=== PATIENT | male | born 1960 | race Caucasian/White ===

== ENCOUNTER 2016-06-23 05:38 | Outpatient (CLI) | payer MEDICAID ==
[~2016-06-23] VITALS: Ht 172.7 cm; Wt 108.0 kg
--- OUTSIDE RECORDS SUMMARY | 2016-06-23 05:41 | XMS REPORT | Continuity of Care Document ---
Author Author [facility] Organization [facility] Address Unknown Phone Unavailable Care Team Providers Care Dealer Compliance Representative Name Role Phone PCP Unavailable Source Comments Some departments are not documenting in the electronic medical record. If you do not see the information that you expected, contact Release of Information in the Health Information Management department at [phone] for further assistance in locating additional records.[facility] Active Allergies and Adverse Reactions Not on File Current Medications Not on file Active Problems Not on file Social History Tobacco Use Types Packs/Day Years Used Date Never Assessed Plan of Care Date Type Specialty Providers Description 07/19/2016 Appointment Neurosurgery Moises Vasquez MD [address] [facility] [address] [place] [address] [phone] (Fax) Health Maintenance Due Date Last Done Comments Hepatitis C Screening 1960 Physical (Comprehensive) 02/11/1968 Exam Pertussis Vaccine 02/11/1972 Tetanus Vaccine 1978 Colorectal Cancer 2011 Screening Influenza Vaccine 02/04/2016 Results from Last 3 Months Not on file
[2016-06-23] MEDS ORDERED: BUDE10.22 IH (11:28)
[2016-06-23] MEDS ORDERED: OMEP40CA36 PO (11:28)
[2016-06-23] MEDS ORDERED: MONT10TA21 PO (11:28)
[2016-06-23] MEDS ORDERED: TRAZ150T72 PO (11:28)
[2016-06-23] MEDS ORDERED: PRAV20TA3 PO (11:28)
[2016-06-23] MEDS ORDERED: CETI-267 PO (11:28)
[2016-06-23] MEDS ORDERED: CITA20TA7 PO (11:28)
[2016-06-23] MEDS ORDERED: RT-ALBUINH IH (11:28)
[2016-06-29] MEDS ORDERED: SUCR1TAB36 PO (11:40)
[2016-06-29] MEDS ORDERED: DEXL60CA PO (11:40)
== END 2016-06-23 11:36 ==
LOC: PREOP 05:38
PROVIDERS: ATTEND Surgery Pediatric Surgery
DX: Z01.818 Encounter for other preprocedural examination (principal); K21.9 Gastro-esophageal reflux disease without esophagitis

== ENCOUNTER 2016-06-29 09:14 | Day surgery (SDC) | payer MEDICAID ==
[~2016-06-29] VITALS: Ht 172.7 cm; Wt 108.0 kg
[~2016-06-29 09:14] MED LIST: BUDE10.22 IH; CETI-267 PO; CITA20TA7 PO; MONT10TA21 PO; OMEP40CA36 PO; PRAV20TA3 PO; RT-ALBUINH IH; TRAZ150T72 PO
[2016-06-29] MEDS ORDERED: NS IV 500 ML 500 ML ONE (09:16)
--- OUTSIDE RECORDS SUMMARY | 2016-06-29 09:18 | XMS REPORT | Continuity of Care Document ---
Author Author [facility] Organization [facility] Address Unknown Phone Unavailable Care Team Providers Care Apprentice Painter Brush Name Role Phone PCP Unavailable Source Comments Some departments are not documenting in the electronic medical record. If you do not see the information that you expected, contact Release of Information in the Health Information Management department at [phone] for further assistance in locating additional records.[facility] Active Allergies and Adverse Reactions Not on File Current Medications Not on file Active Problems Not on file Social History Tobacco Use Types Packs/Day Years Used Date Never Assessed Plan of Care Date Type Specialty Providers Description 07/19/2016 Appointment Neurosurgery Moises Vasquez MD [address] [facility] [address] [place] [address] [phone] (Fax) Health Maintenance Due Date Last Done Comments Hepatitis C Screening 1960 Physical (Comprehensive) 02/11/1968 Exam Pertussis Vaccine 02/11/1972 Tetanus Vaccine 1978 Colorectal Cancer 2011 Screening Influenza Vaccine 02/04/2016 Results from Last 3 Months Not on file
--- OUTSIDE RECORDS SUMMARY | 2016-06-29 09:18 | XMS REPORT | Continuity of Care Document ---
Author Author [facility] Organization [facility] Address Unknown Phone Unavailable Care Team Providers Care Diabetologist Name Role Phone PCP Unavailable Source Comments Some departments are not documenting in the electronic medical record. If you do not see the information that you expected, contact Release of Information in the Health Information Management department at [phone] for further assistance in locating additional records.[facility] Active Allergies and Adverse Reactions Not on File Current Medications Not on file Active Problems Not on file Social History Tobacco Use Types Packs/Day Years Used Date Never Assessed Plan of Care Date Type Specialty Providers Description 07/19/2016 Appointment Neurosurgery Moises Vasquez MD [address] [facility] [address] [place] [address] [phone] (Fax) Health Maintenance Due Date Last Done Comments Hepatitis C Screening 1960 Physical (Comprehensive) 02/11/1968 Exam Pertussis Vaccine 02/11/1972 Tetanus Vaccine 1978 Colorectal Cancer 2011 Screening Influenza Vaccine 02/04/2016 Results from Last 3 Months Not on file
[2016-06-29] MEDS ORDERED: FLUMAZENIL (ROMAZICON) 0.1 MG/ML 5 ML VIAL INJ PRN (10:00)
[2016-06-29] MEDS ORDERED: LIDOCAINE JELLY 2% (XYLOCAINE) 5 ML TUBE MM PRN (10:00)
[2016-06-29] MEDS ORDERED: MIDAZOLAM 2 MG/2 ML (VERSED) VIAL IVP PRN (10:00)
[2016-06-29] MEDS ORDERED: NALOXONE 0.4 MG/ML 1 ML (NARCAN) VIAL IVP PRN (10:00)
[2016-06-29] MEDS ORDERED: HURRICAINE EXT TUBE (BENZOCAINE) XX PRN (10:00)
[2016-06-29] MEDS ORDERED: NS IV 500 ML 500 ML IV SCH (10:00)
[2016-06-29] MEDS ORDERED: fentaNYL INJECTION 100 MCG/2 ML AMP IVP PRN (10:00)
[2016-06-29] MEDS ORDERED: proPOfol 200 MG/20 ML (DIPRIVAN) VIAL IV ONE ×2 (10:04→10:38)
[2016-06-29] MEDS ORDERED: MIDAZOLAM 2 MG/2 ML (VERSED) VIAL ONE (10:04)
[2016-06-29] MEDS ORDERED: PROPOFOL INJECTION 50 ML IV ONE (10:24)
[2016-06-29] MEDS ORDERED: morphine INJ 10 MG/ML 1ML (SYR OR VIAL) IV PRN (10:30)
[2016-06-29] MEDS ORDERED: ACETAMINOPHEN 325 MG TABLET/CAPLET (TYLENOL) PO PRN (10:30)
[2016-06-29] MEDS ORDERED: HYDROcodone/APAP 5 MG/325 MG (LORTAB) TAB PO PRN (10:30)
[2016-06-29] MEDS ORDERED: ONDANSETRON 4 MG/2 ML (SDV) Z0FRAN IV PRN (10:30)
--- NOTE | 2016-06-29 10:30 | Progress Note-Pre Operative ---
Pre-Operative Progress Note H&P Reviewed The H&P was reviewed, patient examined and no changes noted. Date H&P Reviewed: Jun 29, 2016 Time H&P Reviewed: 10:00 Pre-Operative Diagnosis: GERD, dysphagia GALINA WALKER MD Jun 29, 2016 10:30 am
[2016-06-29] MEDS ORDERED: NS IV 1000 ML 1,000 ML ONE (10:35)
--- NOTE | 2016-06-29 11:38 | Progress Note-Post Operative ---
Post-Operative Progess Note Pre-Operative Diagnosis GERD, dysphagia Post-Operative Diagnosis reflux esophagitis(class B), small HH(1.5cm), moderate gastritis. chronic stage 2 ext and int hemorrhoids, small HP sigmoid colon. Post-Op Procedure Note Date of Procedure: Jun 29, 2016 Name of Procedure: EGD with bx. Colonoscopy with bx. Anesthesia Type MAC Estimated blood loss (mL): minimal Specimen(s) collected antrum, GE GALINA Terry MD Jun 29, 2016 11:38 am
[2016-06-29 11:40] VITALS: BP 114/74
[2016-06-29] MEDS ORDERED: SUCR1TAB36 PO (11:40)
[2016-06-29] MEDS ORDERED: DEXL60CA PO (11:40)
--- NOTE | 2016-06-29 11:41 | Discharge Inst-Surgical ---
D/C Lap Instructions-KIDO New, Converted, or Re-Newed RX: RX on Chart Follow Up 5 years Activity as tolerated High Fiber Diet 25g or more per day Avoid Alcohol, Caffeine, Spicy Somers and Acid foods. Drink 64 fluid oz or more of fluids per day. Symptoms to Report: Fever over 101 degree F, Nausea/Vomiting If any problems/questions: Contact your physician or go to Emergency Room GALNIA WALKER MD Jun 29, 2016 11:41 am
[2016-06-29 12:00] VITALS: BP 119/86
[2016-06-29 12:21] VITALS: BP 137/81
[2016-06-29 12:36] VITALS: BP 137/81
[2016-06-29] MEDS ORDERED: NS IV 1000 ML 1,000 ML IV SCH (12:45)
--- NOTE | 2016-06-30 09:07 | OPERATIVE REPORT ---
PROCEDURE PHYSICIAN: GALINA PEDRAZA DATE OF PROCEDURE: 06/29/2016 ATTENDING PRIMARY CARE PHYSICIAN: Dr. Aundrea Masters PREOPERATIVE DIAGNOSIS: 1. Gastroesophageal reflux disease. 2. Dysphagia. 3. Screening colonoscopy. POSTOPERATIVE DIAGNOSES: 1. Reflux esophagitis, class B. 2. Small hiatal hernia, approximately 1 cm in size. 3. Moderate severity gastritis. 4. Chronic, stage II external and internal hemorrhoids. 5. Small hyperplastic polyp of the sigmoid colon. PROCEDURES: 1. EGD with biopsy. 2. Colonoscopy with biopsy. SURGEON: Dr. Pedraza. ANESTHESIA: Monitored and monitored anesthesia care, administered by anesthesia. ESTIMATED BLOOD LOSS: Minimal FINDINGS: EGD: 1. Reflux esophagitis, class B. 2. Small hiatal hernia 1 cm in size. 3. Moderate gastritis. 4. The pylorus and duodenum appeared normal. COLONOSCOPY: 1. Chronic, stage II external and internal hemorrhoids, not actively edematous or inflamed and no bleeding. 2. Prostate gland was palpable and appeared normal. 3. There was a small hyperplastic polyp of the proximal sigmoid colon, approximately 2 mm in size. DISPOSITION: The patient tolerated procedure well. BRIEF HISTORY: Mr. Eitan Morris is a 56-year-old male with a right upper abdominal quadrant pain, as well as reflux and nausea and vomiting. He reports he has had intermittent issues of these type of symptoms for the past 5 years. However, the last year, has become much worse. He also reports that he does have some episodes of diarrhea associated with his symptoms. Upon further questioning he reports that, spicy, greasy as well as acidic foods tend to exacerbate his symptoms. He does feel epigastric burning sensation and will have issues with regurgitation usually at night while lying supine. He was recently started on Protonix 40 mg daily. He does have risk factors including COPD and positive smoke for greater than 50 pack-years. He has also not had a colonoscopy up to this point in his life. PROCEDURE: The patient was brought to the endoscopy suite, laid in left lateral decubitus position. After adequate IV pain and sedative medications and monitored anesthesia care, administered by anesthesia, the mouthpiece was applied. The endoscope was placed in the mouth, visualizing the pharynx and hypopharyngeal region. Vocal cords, epiglottis and vallecula identified and appeared to be normal. The endoscope was then gently intubated the esophageal opening and the esophagus insufflated. The endoscope was then advanced through the first, second, and 3rd portions esophagus. At the level of the GE junction, a reflux esophagitis, class B identified. There were no ulcers or strictures identified in this region. A biopsy was taken with forceps with visualization of good hemostasis. The endoscope was then easily advanced into the stomach and endoscope retroflexed visualizing a small hiatal hernia, approximately 1 cm in size. There was a moderate severity gastritis also noted; however, no formal ulcers, polyps or any neoplasms. A biopsy was taken of the antrum with forceps with visualization of good hemostasis. The endoscope was then advanced through the pylorus and into the first and second portions of duodenum , which appeared normal with no distal obstructions. The endoscope was then slowly withdrawn while to take a second look and suctioning of residual air with no additional findings. The patient tolerated this portion the procedure well. We feel that the majority of his symptoms are due to lifestyle that he needs to proceed with the necessary lifestyle and diet accommodation including smoking cessation, avoidance of caffeinated beverages, as well as spicy, greasy and acidic foods. He also needs to take in smaller, more frequent meals and avoid eating at night, as well as head elevation while lying supine. Again his symptoms may also be related to gallbladder etiology and we will also proceed with a work-up for this. For the time being, we will proceed with Dexilant 60 mg daily, as well as Carafate 1 gram q.i.d. for the next 2 weeks then on a p.r.n. basis. Under the same monitored anesthesia care, we then proceeded with the colonoscopy portion of the procedure. A digital rectal examination was performed, which revealed chronic, stage II external and internal hemorrhoids, not actively edematous or inflamed and no bleeding. Normal sphincter tone was felt and there were no palpable masses. The prostate was palpable and appeared normal. The endoscope was then intubated into the anus and the rectum gently insufflated. The endoscope was then advanced through the valves of Desir in the rectum where no polyps or any neoplasms identified. We then proceeded through the sigmoid colon where no diverticulosis identified. At the proximal sigmoid colon, a small hyperplastic polyp, approximately 2 mm in size was identified. This was biopsied and destroyed using forceps and electrocautery with visualization of good hemostasis. The endoscope was then advanced through the remainder of the descending, transverse, and ascending colon to the cecum. These segments were normal. There were no other lesions identified. The endoscope was slowly withdrawn while taking a second look and suctioning of residual air with no additional findings. The patient tolerated procedure well. We will have him continue with medical management with a high fiber diet with at least 30 grams of fiber per day, as well as at least 64 fluid ounces of water daily to promote soft stools on a daily basis. Due to the findings of the hyperplastic polyp we will recommend a follow-up colonoscopy in approximately 5 years. Job ID: [id number] Dictated Date: 06/29/2016 11:32:52 Egg Candler Date: 06/29/2016 15:13:42 / aldo
== END 2016-06-29 12:15 | disposition home or self-care (01) ==
LOC: ENDO 09:14
PROVIDERS: ATTEND Surgery Pediatric Surgery
DX: Z12.11 Encounter for screening for malignant neoplasm of colon (principal); K21.0 Gastro-esophageal reflux disease with esophagitis; K63.5 Polyp of colon; K44.9 Diaphragmatic hernia without obstruction or gangrene; K29.70 Gastritis, unspecified, without bleeding; K64.1 Second degree hemorrhoids; E11.9 Type 2 diabetes mellitus without complications; E78.00 Pure hypercholesterolemia, unspecified; J44.9 Chronic obstructive pulmonary disease, unspecified; I10 Essential (primary) hypertension; I25.2 Old myocardial infarction; Z86.73 Personal history of transient ischemic attack (TIA), and cerebral infarction without residual deficits
CPT/HCPCS: 82962

== ENCOUNTER 2016-07-12 07:55 | Day surgery (SDC) | payer MEDICAID ==
[2016-07-12] VITALS (10 sets, daily range): BP systolic 118–144; BP diastolic 84–89
[~2016-07-12] VITALS: Ht 172.7 cm; Wt 108.0 kg
[~2016-07-12 07:55] MED LIST changes: +DEXL60CA PO; +SUCR1TAB36 PO
--- OUTSIDE RECORDS SUMMARY | 2016-07-12 07:59 | XMS REPORT | Continuity of Care Document ---
Author Author [facility] Organization [facility] Address Unknown Phone Unavailable Care Team Providers Care Direct Care Professional Name Role Phone PCP Unavailable Source Comments Some departments are not documenting in the electronic medical record. If you do not see the information that you expected, contact Release of Information in the Health Information Management department at [phone] for further assistance in locating additional records.[facility] Active Allergies and Adverse Reactions Not on File Current Medications Not on file Active Problems Not on file Social History Tobacco Use Types Packs/Day Years Used Date Never Assessed Plan of Care Date Type Specialty Providers Description 07/19/2016 Appointment Neurosurgery Moises Vasquez MD [address] [facility] [address] [place] [address] [phone] (Fax) Health Maintenance Due Date Last Done Comments Hepatitis C Screening 1960 Physical (Comprehensive) 02/11/1968 Exam Pertussis Vaccine 02/11/1972 Tetanus Vaccine 1978 Colorectal Cancer 2011 Screening Influenza Vaccine 02/04/2016 Results from Last 3 Months Not on file
--- OUTSIDE RECORDS SUMMARY | 2016-07-12 08:00 | XMS REPORT | Continuity of Care Document ---
Author Author [facility] Organization [facility] Address Unknown Phone Unavailable Care Team Providers Care Tile Designer Name Role Phone PCP Unavailable Source Comments Some departments are not documenting in the electronic medical record. If you do not see the information that you expected, contact Release of Information in the Health Information Management department at [phone] for further assistance in locating additional records.[facility] Active Allergies and Adverse Reactions Not on File Current Medications Not on file Active Problems Not on file Social History Tobacco Use Types Packs/Day Years Used Date Never Assessed Plan of Care Date Type Specialty Providers Description 07/19/2016 Appointment Neurosurgery Moises Vasquez MD [address] [facility] [address] [place] [address] [phone] (Fax) Health Maintenance Due Date Last Done Comments Hepatitis C Screening 1960 Physical (Comprehensive) 02/11/1968 Exam Pertussis Vaccine 02/11/1972 Tetanus Vaccine 1978 Colorectal Cancer 2011 Screening Influenza Vaccine 02/04/2016 Results from Last 3 Months Not on file
[2016-07-12] MEDS ORDERED: HEParin (CATH LAB) 2,000 ML IV ONE (08:05)
[2016-07-12] MEDS ORDERED: NS IV 1000 ML 1,000 ML ONE (08:05)
[2016-07-12] MEDS ORDERED: LIDOCAINE 1% INJ 20 ML (XYLOCAINE) VIAL ONE (08:05)
[2016-07-12] MEDS ORDERED: NS IV 1000 ML 1,000 ML IV SCH ×2 (08:30→10:49)
[2016-07-12] MEDS ORDERED: DEXL60CA PO (08:33)
[2016-07-12] MEDS ORDERED: CETI10TA17 PO (08:33)
[2016-07-12] MEDS ORDERED: PANT40TA2 PO (08:33)
[2016-07-12] MEDS ORDERED: TRAZ-28 PO (08:33)
[2016-07-12 08:38] LABS: MEAN PLATELET VOLUME 9.9 FL (7.4-10.4); RED BLOOD COUNT 5.13 10^6/uL (4.35-5.85); RED CELL DISTRIBUTION WIDTH 13.9 % (10.0-14.5); WHITE BLOOD COUNT 9.4 10^3/uL (4.3-11.0)
[2016-07-12] MEDS ORDERED: BUDE10.2 IH (08:38)
[2016-07-12] MEDS ORDERED: ASPI-983 PO (08:38)
[2016-07-12] MEDS ORDERED: DICY20TA10 PO (08:38)
[2016-07-12 08:43] LABS: PROTHROMBIN TIME PATIENT 12.9 SEC (12.2-14.7)
[2016-07-12 08:54] LABS: ALANINE AMINOTRANSFERASE 28 U/L (0-55); ALBUMIN 4.5 G/DL (3.2-4.5); ANION GAP 12 MMOL/L (5-14); ASPARTATE AMINO TRANSFERASE 17 U/L (5-34); BILIRUBIN,TOTAL 0.3 MG/DL (0.1-1.0); BLOOD UREA NITROGEN 12 MG/DL (7-18); BUN/CREATININE RATIO 11; CALCIUM 9.1 MG/DL (8.5-10.1); CARBON DIOXIDE 24 MMOL/L (21-32); CHLORIDE 104 MMOL/L (98-107); CHOLESTEROL 192 MG/DL (< 200); CREATININE SERUM 1.14 MG/DL (0.60-1.30); DIRECT LDL 145 MG/DL (1-129); GFR ESTIMATED > 60; GLUCOSE 128 MG/DL (70-105); POTASSIUM 3.7 MMOL/L (3.6-5.0); SODIUM 140 MMOL/L (135-145); TOTAL PROTEIN 7.1 G/DL (6.4-8.2); TRIGLYCERIDES 88 MG/DL (<150); VLDL CHOLESTEROL 18 MG/DL (5-40)
[2016-07-12] MEDS ORDERED: MIDAZOLAM 5 MG/5 ML (VERSED) VIAL ONE (09:13)
[2016-07-12] MEDS ORDERED: diphenhydrAMINE 50 MG/ML INJ (BENADRYL) ONE (09:13)
[2016-07-12] MEDS ORDERED: fentaNYL INJECTION 100 MCG/2 ML AMP ONE (09:13)
--- NOTE | 2016-07-12 09:25 | Cardiac Procedure Note-CS/ASA ---
Pre-Procedure Note Pre-Op Procedure Note H&P Reviewed The H&P was reviewed, patient examined and no changes noted. Date H&P Reviewed: Jul 12, 2016 Time H&P Reviewed: 09:25 Conscious Sedation Pre-Proced Time Reviewed: :25 ASA Class: 3 Airway Mallampati Classification: (miami appropriate class) I. II. III, IV Lungs Heart ASA score ASA 1: a normal healthy patient ASA 2: a patient with a mild systemic disease (mid diabetes, controlled hypertension, obesity ASA 3: a patient with a severe systemic disease that limits activity (angina , COPD, prior Myocardial infarction) ASA 4: a patient with an incapacitating disease that is a constant threat to life (CHF, renal failure) ASA 5: a moribund patient not expected to survive 24 hrs. (ruptured aneurysm) ASA 6: a declared brain patient whose organs are being harvested. For emergent operations, add the letter E after the classification Grade 2 Sedation Plan: Analgesia, Amnesia, Plan communicated to team members, Discussed options with patient/fam, Discussed risks with patient/fam Note The patient is an appropriate candidate to undergo the planned procedure, sedation, and anesthesia. The patient immediately re-assessed prior to indication. MAGDA DIAZ MD FACP FACC CCDS Jul 12, 2016 09:25
[2016-07-12] MEDS ORDERED: FLU TRIvalent (5 YOA+) 2016-17 (AFLURIA) 0.5 ML IM ONE (10:15)
[2016-07-12] MEDS ORDERED: ASPI-999 PO (10:54)
--- NOTE | 2016-07-12 10:54 | Discharge Inst-Post CATH ---
Discharge Inst-CATH Post Cardiac Cath D/C Inst Follow Up/Plan Follow up with Dr Cedillo in 1-2 weeks CARDIAC CATH DISCHARGE INSTRUCTIONS *Hold Metformin for 48 hours post heart cath. ACTIVITY * Go Home directly and rest. * Limit activity of the leg (or wrist if it was used) for 7 days including aerobics, swimming, jogging, bicycling, etc. * Restrict stair-climbing for 7 days if possible, if not, climb up with your non -cath leg, then bring together on the same step. * Avoid lifting, pushing, pulling or excessive movement of the affected extremity for 7 days. * Customary sexual activity may be resumed after 2 days-use caution not to use a position that strains or causes pain to the affected extremity. * No driving for 24 hours. * NO SMOKING. * Avoid straining for bowel movements for 7 days. * Gentle walking on level ground is allowed. * Returning to work will depend on the type of procedure and the results. Your doctor will discuss this with you. CALL YOUR DOCTOR FOR ANY OF THE FOLLOWING: *If bleeding from the puncture site occurs- Apply gentle pressure to site with clean cloth and call your doctor or EMS. * If a knot or lump forms under the skin, increases in size, or causes pain. * If bruising appears to be worsening or moving further down your leg instead of disappearing. * Temperature above 101 F. CARE OF YOUR GROIN INCISION; * Bruising or purple discoloration of the skin near the puncture site is common. * You may shower only, no bathtub bathing for 5 days. Be careful to avoid slipping as your leg may feel stiff. * If a closure device was used on your femoral artery, please see the attached guide regarding care of the device and your leg. * REMOVE the dressing from your groin the next day after your procedure in the shower. CARE OF YOUR WRIST INCISION; * Bruising or purple discoloration of the skin near the puncture site is common. * You may shower. * DO NOT submerge wrist. * Remove dressing in 24 hours. MAGDA CEDILLO MD [facility] CCDS Jul 12, 2016 10:54
--- NOTE | 2016-07-12 10:55 | Discharge Inst-Cardiology ---
Discharge Inst-Cardiac Discharge Medications New Medications: Aspirin (Aspirin) 81 Mg Tab.chew 81 MG PO DAILY #90 Ref 3 TAB Continued Medications: Albuterol Sulfate (Proventil Hfa) 6.7 Gm Hfa.aer.ad 2 PUFF IH Q4H PRN SHORTNESS OF BREATH INHALER Budesonide/Formoterol Fumarate (Symbicort 160-4.5 Mcg Inhaler) 10.2 Gm Hfa.aer.ad 2 PUFF IH BID INHALER Cetirizine HCl (Cetirizine HCl) 10 Mg Tablet 10 MG PO DAILY TAB Citalopram Hydrobromide (Citalopram HBr) 20 Mg Tablet 20 MG PO DAILY TAB Dexlansoprazole (Dexilant) 60 Mg Dilan.bp 60 MG PO DAILY Dicyclomine HCl (Dicyclomine HCl) 20 Mg Tablet 20 MG PO QID TAB Montelukast Sodium (Singulair) 10 Mg Tablet 10 MG PO HS TAB Pantoprazole Sodium (Protonix) 40 Mg Tablet.dr 40 MG PO HS TAB Pravastatin Sodium (Pravastatin Sodium) 20 Mg Tablet 20 MG PO HS TAB Trazodone HCl (Trazodone HCl) 50 Mg Tablet 50 MG PO HS TAB Discontinued Medications: Aspirin (Aspirin EC) 81 Mg Tablet.dr 81 MG PO HS TAB Orders-Post D/C & Referrals Pneu Vac Indicated: Yes MAGDA DIAZ MD FACP FACC CCDS Jul 12, 2016 10:55
[2016-07-12] MEDS ORDERED: PATIENT MAY USE OWN MEDS, ALL PO SCH (11:00)
--- NOTE | 2016-07-13 10:14 | CARDIAC CATHETERIZATION ---
PROCEDURE PHYSICIAN: MAGDA DIAZ DATE OF PROCEDURE: 07/12/2016 Eitan Morris is a 56-year-old gentleman who has multiple coronary disease risk factors and who has been experiencing exertional shortness of breath and chest discomfort. Cardiac catheterization was carried out today to evaluate for obstructive coronary artery disease as a cause of his symptoms. Informed consent was obtained. PROCEDURE: He was brought to the cardiac catheterization laboratory in a fasting state. The right groin was prepared and draped in usual sterile fashion. 1% lidocaine was used for local anesthesia. Modified Seldinger technique was used to advance a 5-Anguillan sheath in the in the right femoral artery. 5-Anguillan JL4 catheter was used for left coronary angiography. A 5-Anguillan JR4 catheter was used for right coronary angiography. 5-Anguillan pigtail catheter was used for left heart catheterization and left coronary angiography. Pigtail catheter was pulled back to the aortic arch and aortic arch angiography performed. The catheter was removed. Angiography of the right femoral artery was carried out through the sheath. Mynx was used to achieve hemostasis. He tolerated the procedure well. HEMODYNAMICS: Left ventricular end diastolic pressure following coronary angiography was 13 mmHg. There was no significant pressure gradient on pullback across the aortic valve. Ascending aortic pressure was 118/82 with a mean of 94 mmHg. LEFT VENTRICULAR ANGIOGRAPHY: Left ventricular angiography was carried out in the right anterior oblique projection. Global left ventricular systolic function is normal to hyperdynamic. Left ventricular ejection fraction is 65 to 70%. There does not appear to be significant mitral regurgitation. No regional wall motion abnormalities are seen in this view. CORONARY ANGIOGRAPHY: There are diffuse coronary plaques including the distal left main coronary and the ostial and proximal left circumflex and left anterior descending arteries. The right coronary artery is dominant. There does not appear to be of any angiographically significant obstructive coronary disease. CONCLUSIONS: 1. Angiographically mild coronary disease. 2. Normal hyperdynamic left ventricular systolic function with an ejection fraction of 65 to 70%. 3. High normal left ventricular end diastolic pressure. 4. No significant mitral regurgitation. DISCUSSION AND RECOMMENDATIONS: Based on the results of this study, the symptoms do not appear to be of cardiac origin. Continuing risk factor modification is advised. Outpatient follow-up is advised. Job ID: [id number] Dictated Date: 07/12/2016 09:53:59 Entrepreneurial Finance Professor Date: 07/13/2016 10:04:43 / aldo
== END 2016-07-12 13:00 | disposition home or self-care (01) ==
LOC: CATH 07:55 → SURG 10:05 → CATH 13:00
PROVIDERS: ATTEND Internal Medicine Cardiovascular Disease
DX: R07.89 Other chest pain (principal); I25.10 Atherosclerotic heart disease of native coronary artery without angina pectoris; R06.09 Other forms of dyspnea; J44.9 Chronic obstructive pulmonary disease, unspecified; I45.19 Other right bundle-branch block; Z86.73 Personal history of transient ischemic attack (TIA), and cerebral infarction without residual deficits; Z82.49 Family history of ischemic heart disease and other diseases of the circulatory system; Z72.0 Tobacco use; Z79.899 Other long term (current) drug therapy
CPT/HCPCS: 36221; 36415; 80053; 80061; 85027; 85610; 85730; 87081; 93458

== ENCOUNTER → 2016-07-19 | Outpatient (CLI) | payer MEDICAID ==
[~2016-07-19] MED LIST changes: +ASPI-983 PO; +ASPI-999 PO; +BUDE10.2 IH; +CETI10TA17 PO; +DICY20TA10 PO; +PANT40TA2 PO; +TRAZ-28 PO
--- OUTSIDE RECORDS SUMMARY | 2016-07-19 21:10 | XMS REPORT | Continuity of Care Document ---
Author Author [facility] Organization [facility] Address Unknown Phone Unavailable Care Team Providers Care Robotic Weld Technician Name Role Phone Aundrea Masters PCP [phone] Source Comments Some departments are not documenting in the electronic medical record. If you do not see the information that you expected, contact Release of Information in the Health Information Management department at [phone] for further assistance in locating additional records.[facility] Active Allergies and Adverse Reactions Allergen Noted Date Severity Reactions Comments Ampicillin 07/14/2016 High ANAPHYLAXIS Pcn 07/14/2016 High ANAPHYLAXIS Tetracycline 07/14/2016 Low NAUSEA AND VOMITING Current Medications Prescription Sig. Disp. Refills Start End Date Status Date MULTIVITAMIN PO Take by mouth daily. Active ibuprofen (MOTRIN) 400 mg Take 400 mg by mouth Active tablet every 8 hours as needed for Pain. Take with food. aspirin 81 mg chewable Chew 81 mg by mouth Active tablet daily. Take with food. citalopram (CELEXA) 20 mg Take 20 mg by mouth Active tablet daily. traZODone (DESYREL) 150 Take 150 mg by mouth at Active mg tablet bedtime as needed. budesonide/formoterol Inhale 2 Puffs by mouth Active (SYMBICORT) 160/4.5 mcg into the lungs twice inhalation daily. montelukast (SINGULAIR) Take 10 mg by mouth at Active 10 mg tablet bedtime daily. Cetirizine (ZYRTEC) 10 mg Take by mouth. Active cap dicyclomine (BENTYL) 20 Take 20 mg by mouth every Active mg tablet 6 hours. dexlansoprazole (+) Take 60 mg by mouth Active (DEXILANT) 60 mg capsule daily. Active Problems No known active problems Most Recent Encounters Date Type Specialty Providers Description 07/19/2016 Office Visit Neurosurgery Moises Vasquez MD Lumbar stenosis (Primary Dx); Cervical stenosis of spinal canal 07/14/2016 Telephone Neurosurgery Moises Vasquez MD Other - Radiology reminder call 07/14/2016 Abstract Neurosurgery Moises Vasquez MD Social History Tobacco Use Types Packs/Day Years Used Date Current Every Day Smoker Alcohol Use Drinks/Week oz/Week Comments No 0 Standard 0.0 drinks or equivalent Last Filed Vital Signs Vital Sign Reading Time Taken Blood Pressure 134/84 07/19/2016 12:12 PM SURGICAL PHYSICIAN ASSISTANT Pulse 88 07/19/2016 12:12 PM SURGICAL PHYSICIAN ASSISTANT Temperature 36.7 C (98 F) 07/19/2016 12:12 PM SURGICAL PHYSICIAN ASSISTANT Respiratory Rate 22 07/19/2016 12:12 PM SURGICAL PHYSICIAN ASSISTANT Height 1.727 m (5' 8") 07/19/2016 12:12 PM SURGICAL PHYSICIAN ASSISTANT Weight 107.502 kg (237 lb) 07/19/2016 12:12 PM SURGICAL PHYSICIAN ASSISTANT Body Mass Index 36.04 07/19/2016 12:12 PM SURGICAL PHYSICIAN ASSISTANT Oxygen Saturation 96% 07/19/2016 12:12 PM SURGICAL PHYSICIAN ASSISTANT Plan of Care Date Type Specialty Providers Description 08/16/2016 Appointment Neurosurgery Moises Vasquez MD [address] [facility] [address] [place] [address] [phone] (Fax) Health Maintenance Due Date Last Done Comments Hepatitis C Screening 1960 Physical (Comprehensive) 02/11/1968 Exam Pertussis Vaccine 02/11/1972 Tetanus Vaccine 1978 Colorectal Cancer 2011 Screening Influenza Vaccine 02/04/2016 Results from Last 3 Months Not on file
== END ==
LOC: SLEEP 20:20
PROVIDERS: ATTEND Internal Medicine Critical Care Medicine
DX: G47.33 Obstructive sleep apnea (adult) (pediatric) (principal)
CPT/HCPCS: 95810

== ENCOUNTER → 2016-07-20 | Outpatient (CLI) | payer MEDICAID ==
--- OUTSIDE RECORDS SUMMARY | 2016-07-20 11:19 | XMS REPORT | Continuity of Care Document ---
Author Author [facility] Organization [facility] Address Unknown Phone Unavailable Care Team Providers Care Cellar Packer Name Role Phone Aundrea Masters PCP [phone] Source Comments Some departments are not documenting in the electronic medical record. If you do not see the information that you expected, contact Release of Information in the Health Information Management department at [phone] for further assistance in locating additional records.[facility] [...] Taken Blood Pressure 134/84 07/19/2016 12:12 PM BONE WORKER Pulse 88 07/19/2016 12:12 PM BONE WORKER Temperature 36.7 C (98 F) 07/19/2016 12:12 PM BONE WORKER Respiratory Rate 22 07/19/2016 12:12 PM BONE WORKER Height 1.727 m (5' 8") 07/19/2016 12:12 PM BONE WORKER Weight 107.502 kg (237 lb) 07/19/2016 12:12 PM BONE WORKER Body Mass Index 36.04 07/19/2016 12:12 PM BONE WORKER Oxygen Saturation 96% 07/19/2016 12:12 PM BONE WORKER Plan of Care Date Type Specialty Providers Description 08/16/2016 Appointment Neurosurgery Moises Vasquez MD [address] [facility] [address] [place] [address] [phone] (Fax) Health Maintenance Due Date Last Done Comments Hepatitis C Screening 1960 Physical (Comprehensive) 02/11/1968 Exam Pertussis Vaccine 02/11/1972 Tetanus Vaccine 1978 Colorectal Cancer 2011 Screening Influenza Vaccine 02/04/2016 Results from Last 3 Months Not on file
--- NOTE | 2016-07-20 11:53 | Diagnostic Imaging Report ---
INDICATION: Right groin arterial vascular ultrasound. INDICATION: Right groin pain 8 days after cardiac catheter procedure. FINDINGS: There is a 2 x 1.2 x 1.4 cm pseudoaneurysm as seen anterior to the common femoral artery. There is no significant hematoma seen around it. There is color flow in the common femoral artery with biphasic slightly diminished waveforms seen. The SFA and profunda femoris however are patent with triphasic waveforms in the SFA and biphasic waveforms in the profunda femoris. There is normal venous waveforms in the common femoral vein which is patent. IMPRESSION: A right groin 2 cm pseudoaneurysm arising from the common femoral artery is seen. A message about the findings were from sent to Dr. Cedillo, at time of dictation. Dictated by: Dictated on workstation # [id number]
== END ==
LOC: RAD 11:15
PROVIDERS: ATTEND Nurse Practitioner Family
DX: I97.610 Postprocedural hemorrhage of a circulatory system organ or structure following a cardiac catheterization (principal); I72.4 Aneurysm of artery of lower extremity
CPT/HCPCS: 93926

== ENCOUNTER → 2016-07-21 | Outpatient (CLI) | payer MEDICAID ==
[2016-07-21] VITALS (11 sets, daily range): BP systolic 105–142; BP diastolic 70–101
[~2016-07-21] VITALS: Ht 172.7 cm; Wt 108.0 kg
[~2016-07-21] MED LIST changes: +HYDROcodone/APAP 5 MG/325 MG (LORTAB) TAB PO ONE; +LIDOCAINE 1% INJ 20 ML (XYLOCAINE) VIAL ONE; +THROMBIN SPRAY KIT 5,000 UNIT VIAL TP ONE
--- OUTSIDE RECORDS SUMMARY | 2016-07-21 07:57 | XMS REPORT | Continuity of Care Document ---
Author Author [facility] Organization [facility] Address Unknown Phone Unavailable Care Team Providers Care Leisure Travel Agent Name Role Phone Aundrea Masters PCP [phone] Source Comments Some departments are not documenting in the electronic medical record. If you do not see the information that you expected, contact Release of Information in the Health Information Management department at [phone] for further assistance in locating additional records.[facility] Active Allergies and Adverse Reactions Allergen [...] Taken Blood Pressure 134/84 07/19/2016 12:12 PM PROOF OPERATOR Pulse 88 07/19/2016 12:12 PM PROOF OPERATOR Temperature 36.7 C (98 F) 07/19/2016 12:12 PM PROOF OPERATOR Respiratory Rate 22 07/19/2016 12:12 PM PROOF OPERATOR Height 1.727 m (5' 8") 07/19/2016 12:12 PM PROOF OPERATOR Weight 107.502 kg (237 lb) 07/19/2016 12:12 PM PROOF OPERATOR Body Mass Index 36.04 07/19/2016 12:12 PM PROOF OPERATOR Oxygen Saturation 96% 07/19/2016 12:12 PM PROOF OPERATOR Plan of Care Date Type Specialty Providers Description 08/16/2016 Appointment Neurosurgery Moises Vasquez MD [address] [facility] [address] [place] [address] [phone] (Fax) Health Maintenance Due Date Last Done Comments Hepatitis C Screening 1960 Physical (Comprehensive) 02/11/1968 Exam Pertussis Vaccine 02/11/1972 Tetanus Vaccine 1978 Colorectal Cancer 2011 Screening Influenza Vaccine 02/04/2016 Results from Last 3 Months Not on file
--- NOTE | 2016-07-21 09:41 | Discharge Instructions ---
Discharge Instructions Home Medicaitons Changes Hold any current blood thinner home medications for [24 hours]. DON VILLALTA MD Jul 21, 2016 09:41
--- NOTE | 2016-07-21 17:14 | Diagnostic Imaging Report ---
Ultrasound-guided thrombin injection for groin pseudoaneurysm. INDICATION: Right common femoral artery pseudoaneurysm post catheterization. Physical examination reveals swelling and bruising in the right groin. The distal leg is the pale with nonpalpable right dorsalis pedis and posterior tibial arteries at the foot. Consent: The procedure is explained to the patient with risks and benefits including thrombus embolization into the distal vessels in the leg. The patient questions were answered and informed consent is obtained. The patient was informed of the possibility of distal embolization of thrombin or clot being the main potential complication of this procedure. In addition, possibility of reperfusion of this the pseudoaneurysm was also discussed. ANESTHESIA: 1% lidocaine GUIDANCE: Ultrasound FINDINGS: Preliminary ultrasound examination of the groin demonstrates a pseudoaneurysm measuring 2 cm in size. There is to and fro typical flow pattern seen with a narrow neck. PROCEDURE: After sterile preparation and draping, and utilizing ultrasound guidance an appropriate approach is selected away from the neck of the aneurysm. 1% lidocaine is utilized. A 22-gauge needle is utilized for introduction underlying ultrasound guidance into the pseudoaneurysm cavity away from the neck communication with the artery. Imaging demonstrating the location of the needle tip is documented. Slow injection of thrombin is performed under live ultrasound color Doppler visualization. Prompt thrombosis filling the pseudoaneurysm cavity is seen. Injection continued until complete thrombosis seen. Total amount of 700 international units of bovine thrombin. The underlying right common femoral artery appear similarly patent after the procedure with color Doppler flow. The patient tolerated the procedure well. There is no change in the distal leg. No immediate complications. IMPRESSION: Successful ultrasound-guided thrombin injection of right groin pseudoaneurysm, with complete obliteration of its lumen with thrombus demonstrated. Followup vascular ultrasound within the following few days may be performed to rule out reperfusion of the pseudoaneurysm as clinically warranted. Dictated by: Dictated on workstation # [id number]
== END ==
LOC: RAD 07:51
PROVIDERS: ATTEND Nurse Practitioner Family
DX: T81.719A Complication of unspecified artery following a procedure, not elsewhere classified, initial encounter (principal)
CPT/HCPCS: 76936

== ENCOUNTER → 2016-07-26 | Outpatient (CLI) | payer MEDICAID ==
[~2016-07-26] MED LIST changes: -HYDROcodone/APAP 5 MG/325 MG (LORTAB) TAB PO ONE; -LIDOCAINE 1% INJ 20 ML (XYLOCAINE) VIAL ONE; -THROMBIN SPRAY KIT 5,000 UNIT VIAL TP ONE
--- OUTSIDE RECORDS SUMMARY | 2016-07-26 13:31 | XMS REPORT | Continuity of Care Document ---
Author Author [facility] Organization [facility] Address Unknown Phone Unavailable Care Team Providers Care Gas Or Water Meter Installer Name Role Phone Aundrea Masters PCP [phone] Source Comments Some departments are not documenting in the electronic medical record. If you do not see the information that you expected, contact Release of Information in the Health Information Management department at [phone] for further assistance in locating additional records.[facility] [...] Taken Blood Pressure 134/84 07/19/2016 12:12 PM TOW DRIVER Pulse 88 07/19/2016 12:12 PM TOW DRIVER Temperature 36.7 C (98 F) 07/19/2016 12:12 PM TOW DRIVER Respiratory Rate 22 07/19/2016 12:12 PM TOW DRIVER Height 1.727 m (5' 8") 07/19/2016 12:12 PM TOW DRIVER Weight 107.502 kg (237 lb) 07/19/2016 12:12 PM TOW DRIVER Body Mass Index 36.04 07/19/2016 12:12 PM TOW DRIVER Oxygen Saturation 96% 07/19/2016 12:12 PM TOW DRIVER Plan of Care Date Type Specialty Providers Description 08/16/2016 Appointment Neurosurgery Moises Vasquez MD [address] [facility] [address] [place] [address] [phone] (Fax) Health Maintenance Due Date Last Done Comments Hepatitis C Screening 1960 Physical (Comprehensive) 02/11/1968 Exam Pertussis Vaccine 02/11/1972 Tetanus Vaccine 1978 Colorectal Cancer 2011 Screening Influenza Vaccine 02/04/2016 Results from Last 3 Months Not on file
== END ==
LOC: RAD 10:59
PROVIDERS: ATTEND Internal Medicine Cardiovascular Disease
DX: I73.9 Peripheral vascular disease, unspecified (principal)
CPT/HCPCS: 93923

== ENCOUNTER → 2016-07-26 | Outpatient (CLI) | payer MEDICAID ==
--- OUTSIDE RECORDS SUMMARY | 2016-07-26 13:18 | XMS REPORT | Continuity of Care Document ---
Author Author [facility] Organization [facility] Address Unknown Phone Unavailable Care Team Providers Care Clinical Team Manager Name Role Phone Aundrea Masters PCP [phone] Source Comments Some departments are not documenting in the electronic medical record. If you do not see the information that you expected, contact Release of Information in the Health Information Management department at [phone] for further assistance in locating additional records.[facility] Active Allergies and Adverse Reactions Allergen Noted [...] Taken Blood Pressure 134/84 07/19/2016 12:12 PM STRUCTURAL TECHNICIAN Pulse 88 07/19/2016 12:12 PM STRUCTURAL TECHNICIAN Temperature 36.7 C (98 F) 07/19/2016 12:12 PM STRUCTURAL TECHNICIAN Respiratory Rate 22 07/19/2016 12:12 PM STRUCTURAL TECHNICIAN Height 1.727 m (5' 8") 07/19/2016 12:12 PM STRUCTURAL TECHNICIAN Weight 107.502 kg (237 lb) 07/19/2016 12:12 PM STRUCTURAL TECHNICIAN Body Mass Index 36.04 07/19/2016 12:12 PM STRUCTURAL TECHNICIAN Oxygen Saturation 96% 07/19/2016 12:12 PM STRUCTURAL TECHNICIAN Plan of Care Date Type Specialty Providers Description 08/16/2016 Appointment Neurosurgery Moises Vasquez MD [address] [facility] [address] [place] [address] [phone] (Fax) Health Maintenance Due Date Last Done Comments Hepatitis C Screening 1960 Physical (Comprehensive) 02/11/1968 Exam Pertussis Vaccine 02/11/1972 Tetanus Vaccine 1978 Colorectal Cancer 2011 Screening Influenza Vaccine 02/04/2016 Results from Last 3 Months Not on file
--- NOTE | 2016-07-27 09:29 | ECHOCARDIOGRAPHY REPORT ---
PROCEDURE PHYSICIAN: MAGDA CEDILLO DATE OF PROCEDURE: 07/26/2016 TWO DIMENSIONAL ECHOCARDIOGRAM REPORT PRIMARY PHYSICIAN: Dr. Masters OTHER PHYSICIAN: REFERRING PHYSICIAN: ORDERING PHYSICIAN: Dr. Cedillo INDICATION FOR THE PROCEDURE: 1. Shortness of breath. 2. Chest discomfort. MEASUREMENTS DERIVED VALUES LV DIAMETER (LAX) NORMALS NORMALS Diastolic 5.1 (3.6-5.2) Eject. Fract. (60%+/-6%) Systolic (2.3-3.9) Diastolic Vol. % Shortening (0.22-0.42) Systolic Vol. Aortic Root 3.4 IVS THICKNESS Diastolic 1 (0.6-1.1) LVPW THICKNESS Diastolic 1 (0.6-1.1) LA DIAMETER Systolic 4.1 (2.1-3.7) DESCRIPTION: Two-dimensional echocardiography shows normal global left ventricular systolic function with normal regional wall motion. Aortic, mitral and tricuspid valve leaflets show good leaflet excursion. There is no significant pericardial effusion. Doppler imaging shows trivial mitral and tricuspid regurgitation. There is mild aortic valve sclerosis. Aortic valve leaflet structure is not very well visualized. Doppler imaging does not indicate evidence of significant valvular stenosis. Mitral inflow is suggestive of grade 1 diastolic dysfunction of the left ventricle. There is no evidence of any significant intracardiac shunt on this transthoracic echocardiographic study. Inferior vena cava appears to be of normal size and seems to have normal inspiratory collapse. CONCLUSIONS: 1. Normal global left ventricular systolic function with an ejection fraction of approximately 55 to 60%. 2. Mild mitral and tricuspid regurgitation. 3. Mild aortic valve sclerosis without evidence of any significant valvular stenosis. 4. Pulmonary artery systolic pressure is estimated to be 15 to 20 mmHg. 5. Mild diastolic dysfunction of the left ventricle. Job ID: [id number] Dictated Date: 07/26/2016 17:06:39 Fence Gate Assembler Date: 07/27/2016 09:23:43 / dianna
== END ==
LOC: CARD 08:54
PROVIDERS: ATTEND Internal Medicine Cardiovascular Disease
DX: I10 Essential (primary) hypertension (principal); R06.02 Shortness of breath; R07.89 Other chest pain; E78.4 Other hyperlipidemia; J43.8 Other emphysema; E66.09 Other obesity due to excess calories; Z86.79 Personal history of other diseases of the circulatory system; Z72.0 Tobacco use
CPT/HCPCS: 93306

== ENCOUNTER 2016-08-15 12:39 | Outpatient (CLI) | payer MEDICAID ==
[~2016-08-15] VITALS: Ht 172.7 cm; Wt 108.0 kg
--- OUTSIDE RECORDS SUMMARY | 2016-08-15 12:42 | XMS REPORT | Continuity of Care Document ---
Author Author [facility] Organization [facility] Address Unknown Phone Unavailable Care Team Providers Care Liability Claims Representative Name Role Phone Aundrea Masters PCP [phone] Source Comments Some departments are not documenting in the electronic medical record. If you do not see the information that you expected, contact Release of Information in the Health Information Management department at [phone] for further assistance in locating additional records.[facility] Active Allergies and Adverse Reactions Allergen [...] Recent Encounters Date Type Specialty Providers Description 08/15/2016 Telephone Neurosurgery Moises Vasquez MD Appointment 07/19/2016 Office Visit Neurosurgery Moises Vasquez MD [...] Taken Blood Pressure 134/84 07/19/2016 12:12 PM WAREHOUSE OPERATIONS ASSOCIATE Pulse 88 07/19/2016 12:12 PM WAREHOUSE OPERATIONS ASSOCIATE Temperature 36.7 C (98 F) 07/19/2016 12:12 PM WAREHOUSE OPERATIONS ASSOCIATE Respiratory Rate 22 07/19/2016 12:12 PM WAREHOUSE OPERATIONS ASSOCIATE Height 1.727 m (5' 8") 07/19/2016 12:12 PM WAREHOUSE OPERATIONS ASSOCIATE Weight 107.502 kg (237 lb) 07/19/2016 12:12 PM WAREHOUSE OPERATIONS ASSOCIATE Body Mass Index 36.04 07/19/2016 12:12 PM WAREHOUSE OPERATIONS ASSOCIATE Oxygen Saturation 96% 07/19/2016 12:12 PM WAREHOUSE OPERATIONS ASSOCIATE Plan of Care Date Type Specialty Providers Description 08/16/2016 Appointment Neurosurgery Moises Vasquez MD [address] [facility] [address] [place] [address] [phone] (Fax) Health Maintenance Due Date Last Done Comments Hepatitis C Screening 1960 Physical (Comprehensive) 02/11/1968 Exam Pertussis Vaccine 02/11/1972 Tetanus Vaccine 1978 Colorectal Cancer 2011 Screening Influenza Vaccine 02/03/2017 Results from Last 3 Months Not on file
[2016-08-15] MEDS ORDERED: DEXAMETHASONE PF 10 MG/ML (DECADRON) VIAL ONE (12:47)
[2016-08-15 13:16] VITALS: BP 114/82
[2016-08-15 13:56] VITALS: BP 120/85
--- NOTE | 2016-08-15 14:30 | Pain Medicine-Procedure ---
Procedure Pre-Op/Post-Op Diagnosis Diagnosis: disc disorder with radiculopathy, cervical Indications for Operation Neck pain Attending Surgeon Michelle Procedure Date of Service: Aug 15, 2016 Procedure: Cervical Epidural Steroid Injection at the C7-T1 Level under Fluoroscopic Guidance Procedure: Pt was identified in the holding area. After risks, benefits, and alternatives were discussed with the patient, informed consent was obtained. An IV was placed by nursing staff prior to procedure. Patient was brought to the fluoroscopy suite and placed prone on the operating table. A time out was performed. Vital signs were monitored throughout the procedure. The patients neck was prepped and draped in the usual sterile fashion. The patients skin was anesthetized using 1% Lidocaine. A 18 gauge tuohy needle was inserted and advanced to the C7-T1 epidural space under fluoroscopic guidance using the loss of resistance technique. The needle position was confirmed in the AP and lateral view. After negative aspiration 2 ml of non-ionic contrast was injected under live fluoroscopy which showed good spread of the contrast in the epidural space at the appropriate level, there was no intravascular or subarachnoid spread. Again, after negative aspiration, 3 ml of preservative free normal saline and 10 mg of dexamethasone was injected. The needle was removed and the patient was transferred to the recovery area in stable condition. And after a brief period of observation was discharged to home in stable condition with no new neurologic deficits. Complications None NATHANIEL MONSIVAIS MD Aug 15, 2016 2:30 pm
== END 2016-08-15 14:01 | disposition home or self-care (01) ==
LOC: CARD 12:39
PROVIDERS: ATTEND Pain Medicine Pain Medicine
DX: M50.13 Cervical disc disorder with radiculopathy, cervicothoracic region (principal); Z79.899 Other long term (current) drug therapy
CPT/HCPCS: 62321

== ENCOUNTER → 2016-09-08 | Outpatient (CLI) | payer MEDICAID ==
[2016-09-08 10:06] LABS: ALANINE AMINOTRANSFERASE 28 U/L (0-55); ALBUMIN 4.2 G/DL (3.2-4.5); ANION GAP 8 MMOL/L (5-14); ASPARTATE AMINO TRANSFERASE 19 U/L (5-34); BILIRUBIN,TOTAL 0.3 MG/DL (0.1-1.0); BLOOD UREA NITROGEN 11 MG/DL (7-18); BUN/CREATININE RATIO 10; CALCIUM 9.3 MG/DL (8.5-10.1); CARBON DIOXIDE 29 MMOL/L (21-32); CHLORIDE 108 MMOL/L (98-107); CHOLESTEROL 140 MG/DL (< 200); CREATININE SERUM 1.07 MG/DL (0.60-1.30); DIRECT LDL 91 MG/DL (1-129); GFR ESTIMATED > 60; GLUCOSE 129 MG/DL (70-105); POTASSIUM 4.8 MMOL/L (3.6-5.0); SODIUM 145 MMOL/L (135-145); TOTAL PROTEIN 6.9 G/DL (6.4-8.2); TRIGLYCERIDES 76 MG/DL (<150); VLDL CHOLESTEROL 15 MG/DL (5-40)
== END ==
LOC: LAB 09:31
PROVIDERS: ATTEND Nurse Practitioner Family
DX: I25.10 Atherosclerotic heart disease of native coronary artery without angina pectoris (principal); I65.23 Occlusion and stenosis of bilateral carotid arteries; E78.4 Other hyperlipidemia; I10 Essential (primary) hypertension
CPT/HCPCS: 36415; 80053; 80061

== ENCOUNTER → 2016-09-19 | Outpatient (CLI) | payer MEDICAID ==
[~2016-09-19] MED LIST changes: +CATHETER FLUSH 10 ML SYR IV PRN; +IOHEXOL 350 MG/ML 100 ML (OMNIPAQUE 350) VIAL IV ONE; +NS 100 ML (IVPB) BAG IV ONE
[2016-09-19 11:05] LABS: BLOOD UREA NITROGEN 13 MG/DL (7-18); BUN/CREATININE RATIO 12; CREATININE SERUM 1.07 MG/DL (0.60-1.30); GFR ESTIMATED > 60
--- NOTE | 2016-09-19 12:31 | Diagnostic Imaging Report ---
PROCEDURE: CT neck soft tissue with contrast. TECHNIQUE: Multiple contiguous axial images were obtained through the neck after the administration of contrast. INDICATION: Chronic sore throat. History of smoking. Difficulty swallowing. 75 mL of Omnipaque-350 is administered intravenously. FINDINGS: Mucus retention cysts are seen in the inferior aspect of the maxillary sinuses on both sides. There is under pneumatization of the right mastoid air cells probably developmental. Small fluid level or mucosal thickening in the posterior aspect of the right sphenoidal sinus is also seen. The mucosal pharyngeal space demonstrates fairly symmetric vocal cords and mucosa with calcifications seen in the tonsils probably secondary to prior infections. There is no definite soft tissue mass. The submandibular and parotid glands appear symmetric. The thyroid appears grossly unremarkable. There is a mildly enlarged 1.5 cm level II right cervical chain lymph node with no other significantly enlarged nodes seen on either side. The visualized portions of the apices of the lungs appear unremarkable. The osseous structures demonstrate lower cervical spine degenerative changes. IMPRESSION: 1. Mild sinus disease. 2. Mildly enlarged level II right cervical lymph node, could be reactive or inflammatory. 3. Calcifications in the tonsils probably secondary to prior infections with no discrete mass seen. Dictated by: Dictated on workstation # [id number]
--- NOTE | 2016-09-19 12:40 | Diagnostic Imaging Report ---
INDICATION: Chronic cough, sore throat, difficulty breathing. FINDINGS: There is some flattening of the diaphragms and symmetrical air trapping raising the question of COPD. An acute abnormality is not identified. No gross dilatation or abnormal thickening of the central airways. No pneumonia, failure, effusion, or pneumothorax. IMPRESSION: Clear hyperexpanded lungs; otherwise, negative. Dictated by: Dictated on workstation # [id number]
== END ==
LOC: RAD 10:30
PROVIDERS: ATTEND Otolaryngology Otolaryngology/Facial Plastic Surgery
DX: J31.2 Chronic pharyngitis (principal); F17.200 Nicotine dependence, unspecified, uncomplicated
CPT/HCPCS: 36415; 70491; 71020; 82565; 84520

== ENCOUNTER 2016-09-23 10:01 | Outpatient (CLI) | payer MEDICAID ==
[~2016-09-23] VITALS: Ht 172.7 cm; Wt 108.0 kg
[~2016-09-23 10:01] MED LIST changes: -CATHETER FLUSH 10 ML SYR IV PRN; -IOHEXOL 350 MG/ML 100 ML (OMNIPAQUE 350) VIAL IV ONE; -NS 100 ML (IVPB) BAG IV ONE
[2016-09-23 10:16] VITALS: BP 132/93
[2016-09-23] MEDS ORDERED: DEXAMETHASONE PF 10 MG/ML (DECADRON) VIAL ONE (10:28)
[2016-09-23 10:56] VITALS: BP 115/89
--- NOTE | 2016-09-23 14:52 | Pain Medicine-Procedure ---
Procedure Pre-Op/Post-Op Diagnosis Diagnosis: disc disorder with radiculopathy, cervical Indications for Operation Neck pain Attending Surgeon Michelle Procedure Date of Service: Sep 23, 2016 Procedure: Cervical Epidural Steroid Injection at the C7-T1 Level under Fluoroscopic Guidance Procedure: Pt was identified in the holding area. After risks, benefits, and alternatives were discussed with the patient, informed consent was obtained. An IV was placed by nursing staff prior to procedure. Patient was brought to the fluoroscopy suite and placed prone on the operating table. A time out was performed. Vital signs were monitored throughout the procedure. The patients neck was prepped and draped in the usual sterile fashion. The patients skin was anesthetized using 1% Lidocaine. A 18 gauge tuohy needle was inserted and advanced to the C7-T1 epidural space under fluoroscopic guidance using the loss of resistance technique. The needle position was confirmed in the AP and lateral view. After negative aspiration 2 ml of non-ionic contrast was injected under live fluoroscopy which showed good spread of the contrast in the epidural space at the appropriate level, there was no intravascular or subarachnoid spread. Again, after negative aspiration, 3 ml of preservative free normal saline and 10 mg of dexamethasone was injected. The needle was removed and the patient was transferred to the recovery area in stable condition. And after a brief period of observation was discharged to home in stable condition with no new neurologic deficits. Complications None NATHANILE MONSIVAIS MD Sep 23, 2016 2:52 pm
== END 2016-09-23 10:56 | disposition home or self-care (01) ==
LOC: CARD 10:01
PROVIDERS: ATTEND Pain Medicine Pain Medicine
DX: M50.13 Cervical disc disorder with radiculopathy, cervicothoracic region (principal); Z79.899 Other long term (current) drug therapy
CPT/HCPCS: 62321

== ENCOUNTER → 2016-10-18 | Outpatient (CLI) | payer MEDICAID ==
[2016-10-18 16:24] LABS: ALANINE AMINOTRANSFERASE 29 U/L (0-55); ALBUMIN 4.2 G/DL (3.2-4.5); ANION GAP 8 MMOL/L (5-14); ASPARTATE AMINO TRANSFERASE 16 U/L (5-34); BILIRUBIN,TOTAL 0.3 MG/DL (0.1-1.0); BLOOD UREA NITROGEN 9 MG/DL (7-18); BUN/CREATININE RATIO 9; CALCIUM 9.5 MG/DL (8.5-10.1); CARBON DIOXIDE 28 MMOL/L (21-32); CHLORIDE 107 MMOL/L (98-107); CHOLESTEROL 130 MG/DL (< 200); CREATININE SERUM 0.96 MG/DL (0.60-1.30); DIRECT LDL 71 MG/DL (1-129); GFR ESTIMATED > 60; GLUCOSE 140 MG/DL (70-105); SODIUM 143 MMOL/L (135-145); TOTAL PROTEIN 6.7 G/DL (6.4-8.2); TRIGLYCERIDES 98 MG/DL (<150); VLDL CHOLESTEROL 20 MG/DL (5-40)
[2016-10-18 17:18] LABS: THYROID STIMULATING HORMONE 0.67 UIU/ML (0.35-4.94)
== END ==
LOC: LAB 15:55
PROVIDERS: ATTEND Nurse Practitioner Family
DX: E78.4 Other hyperlipidemia (principal); I65.23 Occlusion and stenosis of bilateral carotid arteries; I10 Essential (primary) hypertension; R06.02 Shortness of breath; Z72.0 Tobacco use
CPT/HCPCS: 36415; 80053; 80061; 84443

== ENCOUNTER → 2016-11-15 | Outpatient (CLI) | payer MEDICAID ==
--- NOTE | 2016-11-15 13:38 | Diagnostic Imaging Report ---
PROCEDURE: MR imaging cervical spine without contrast. TECHNIQUE: Multiplanar, multisequence MR imaging of the cervical spine was performed without contrast. INDICATION: Neck pain and bilateral arm and leg pain. FINDINGS: There is reversal of the lordotic curvature. There is minimal anterior translation of C4 over C5 and of C3 over C4. The vertebral body heights are preserved. There is disc desiccation at all levels and ejdl-eu-mkyrunil disc height loss at C6/7. The spinal cord is normal in caliber. Normal cord signal is also seen. C2/3: There is a disc spur complex with no spinal canal stenosis or foraminal narrowing. C3/4: There is minimal anterior translation of C3 over C4. There is a disc spur complex seen with associated mild spinal canal stenosis reducing the AP dimension of the canal to 9.5 mm. There is uncovertebral and facet hypertrophy resulting in umsdftqt-xd-qxxuha foraminal stenosis bilaterally. C4/5: There is minimal anterior translation of C4 over C5. There is a disc spur complex with no spinal canal stenosis. The foramina demonstrate mild stenosis bilaterally. C5/6: There is a prominent disc spur complex with associated mild spinal canal stenosis reducing the AP dimension of the canal to 9.4 mm. There is scor-vk-gxzlevul foraminal stenosis bilaterally. C6/7: There is a spur disc complex resulting in omhd-oq-zgufwilr spinal canal stenosis reducing the AP dimension of the canal to 8.9 mm. No cord compression. The foramina demonstrate moderate stenosis only on the right side. C7/T1: No disc herniation or spinal canal stenosis. There is mild foraminal narrowing bilaterally, more prominent on the right side. IMPRESSION: Multilevel degenerative changes seen with generally mild spinal canal stenosis. No cord compression at any level. There is also multilevel neural foraminal stenosis, most prominent at the C3/4 level. Dictated by: Dictated on workstation # [id number]
== END ==
LOC: RAD 09:58
PROVIDERS: ATTEND Family Medicine
DX: M47.892 Other spondylosis, cervical region (principal)
CPT/HCPCS: 72141

== ENCOUNTER 2017-07-05 05:29 | Outpatient (CLI) | payer MEDICAID ==
[~2017-07-05] VITALS: Ht 172.7 cm; Wt 108.0 kg
[2017-07-05] MEDS ORDERED: BUPR100T15 PO (11:07)
[2017-07-05] MEDS ORDERED: CYCL10TA9 PO (11:08)
[2017-07-05] MEDS ORDERED: METF1000 PO (11:10)
== END 2017-07-05 11:19 ==
LOC: PREOP 05:29
PROVIDERS: ATTEND Surgery
DX: Z01.818 Encounter for other preprocedural examination (principal); D17.9 Benign lipomatous neoplasm, unspecified

== ENCOUNTER → 2017-08-15 | Outpatient (CLI) | payer MEDICAID ==
[~2017-08-15] MED LIST changes: +BUPR100T15 PO; +CATHETER FLUSH 10 ML SYR IV PRN; +CYCL10TA9 PO; +HYDR-34 PO; +METF1000 PO; +REGADENOSON 0.4 MG/5 ML SYR (LEXISCAN) IV ONE
[2017-08-15 11:08] LABS: BASOPHILS # (AUTO) 0.1 10^3/uL (0.0-0.1); BASOPHILS % (AUTO) 1 % (0-10); EOSINOPHILS # (AUTO) 0.2 10^3/uL (0.0-0.3); EOSINOPHILS % (AUTO) 1 % (0-10); HEMATOCRIT 44 % (40-54); LYMPHOCYTES # (AUTO) 2.9 X 10^3 (1.0-4.0); LYMPHOCYTES % (AUTO) 23 % (12-44); MEAN CORPUSCULAR HEMOGLOBIN 30 PG (25-34); MEAN CORPUSCULAR HGB CONC 35 G/DL (32-36); MEAN CORPUSCULAR VOLUME 86 FL (80-99); MEAN PLATELET VOLUME 8.9 FL (7.4-10.4); MONOCYTES % (AUTO) 8 % (0-12); NEUTROPHILS # (AUTO) 8.2 X 10^3 (1.8-7.8); NEUTROPHILS % (AUTO) 67 % (42-75); PLATELET COUNT 411 10^3/uL (130-400); RED BLOOD COUNT 5.06 10^6/uL (4.35-5.85); RED CELL DISTRIBUTION WIDTH 13.5 % (10.0-14.5); WHITE BLOOD COUNT 12.2 10^3/uL (4.3-11.0)
[2017-08-15 11:31] LABS: ERYTHROCYTE SEDIMENTATION RATE 6 MM/HR (0-30)
[2017-08-15 11:32] LABS: ALANINE AMINOTRANSFERASE 37 U/L (0-55); ALBUMIN 4.3 GM/DL (3.2-4.5); ALKALINE PHOSPHATASE 64 U/L (40-136); BILIRUBIN,TOTAL 0.5 MG/DL (0.1-1.0); BUN/CREATININE RATIO 9; CALCIUM 9.5 MG/DL (8.5-10.1); CARBON DIOXIDE 28 MMOL/L (21-32); CHLORIDE 101 MMOL/L (98-107); CHOLESTEROL 130 MG/DL (< 200); CREATININE SERUM 1.16 MG/DL (0.60-1.30); GFR ESTIMATED > 60; GLUCOSE 129 MG/DL (70-105); HDL CHOLESTEROL 37 MG/DL (40-60); MAGNESIUM 1.9 MG/DL (1.8-2.4); POTASSIUM 4.4 MMOL/L (3.6-5.0); SODIUM 139 MMOL/L (135-145); TOTAL PROTEIN 7.2 GM/DL (6.4-8.2); TRIGLYCERIDES 134 MG/DL (<150); VLDL CHOLESTEROL 27 MG/DL (5-40)
[2017-08-15 13:24] VITALS: BP 116/75
[2017-08-15 13:34] VITALS: BP 121/75
--- NOTE | 2017-08-16 15:42 | STRESS TEST ---
DATE OF SERVICE: 08/15/2017 PROCEDURE PERFORMED: Resting and post-regadenoson technetium-99m Tetrofosmin SPECT CT imaging. ORDERING PHYSICIAN: Shelton Cedillo MD, RAEANN, FACP, FACC. PRIMARY PHYSICIAN: Aundrea Masters MD. CLINICAL DIAGNOSES: Shortness of breath, chest discomfort. DESCRIPTION OF PROCEDURE: Baseline images were carried out after injection of 10.93 mCi technetium-99m Tetrofosmin. This was followed by 0.4 mg of regadenoson and 31.1 mCi technetium-99m Tetrofosmin for stress imaging. The electrocardiogram showed sinus rhythm with incomplete right bundle-branch block at baseline. There was a nonspecific ST-segment abnormality. The electrocardiogram did not change significantly with the regadenoson infusion. Following regadenoson infusion, he has noted mild shortness of breath which resolved in a few minutes. Review of images at rest and following stress indicates a small inferoapical perfusion defect that is transient. Gated images show normal regional wall motion and normal global systolic function. Left ventricular ejection fraction is calculated to be 55%. Left ventricular end diastolic volume is 46 mL. TID is present (1.35). CONCLUSIONS: 1. This study is suggestive of a small amount of inferoapical ischemia. 2. Normal regional wall motion. 3. Normal global left ventricular systolic function with a calculated ejection fraction of 55%. 4. The study indicates borderline transient ventricular dilatation following regadenoson infusion. Job ID: [id number] DocumentID: [id number] Dictated Date: 08/16/2017 13:18:23 Clinical Quality Analyst Date: 08/16/2017 15:41:26 Dictated By: SHELTON CEDILLO MD, RAEANN, FACP, FACC,
== END ==
LOC: CARD 10:52
PROVIDERS: ATTEND Internal Medicine Cardiovascular Disease
DX: I25.10 Atherosclerotic heart disease of native coronary artery without angina pectoris (principal); R07.89 Other chest pain; R06.02 Shortness of breath; R42 Dizziness and giddiness; E66.9 Obesity, unspecified; G47.34 Idiopathic sleep related nonobstructive alveolar hypoventilation; J43.8 Other emphysema; Z72.0 Tobacco use; E11.9 Type 2 diabetes mellitus without complications
CPT/HCPCS: 36415; 78452; 80053; 80061; 83735; 83880; 84443; 85025; 85652; 93017; 93306

== ENCOUNTER → 2017-08-18 | Outpatient (CLI) | payer MEDICAID ==
[~2017-08-18] MED LIST changes: -CATHETER FLUSH 10 ML SYR IV PRN; -REGADENOSON 0.4 MG/5 ML SYR (LEXISCAN) IV ONE
== END ==
LOC: WOUNDCARE 09:59
PROVIDERS: ATTEND Surgery
DX: T81.31XA Disruption of external operation (surgical) wound, not elsewhere classified, initial encounter (principal); L98.492 Non-pressure chronic ulcer of skin of other sites with fat layer exposed; L76.34 Postprocedural seroma of skin and subcutaneous tissue following other procedure; E11.622 Type 2 diabetes mellitus with other skin ulcer; T65.222A Toxic effect of tobacco cigarettes, intentional self-harm, initial encounter; E66.01 Morbid (severe) obesity due to excess calories; J44.9 Chronic obstructive pulmonary disease, unspecified
CPT/HCPCS: 11043; 87070; 87075; 87077; 87186; 87205

== ENCOUNTER → 2017-08-25 | Outpatient (CLI) | payer MEDICAID | LOC: WOUNDCARE 10:19 | PROVIDERS: ATTEND Surgery | DX: T81.31XA Disruption of external operation (surgical) wound, not elsewhere classified, initial encounter (principal); L98.492 Non-pressure chronic ulcer of skin of other sites with fat layer exposed; L76.34 Postprocedural seroma of skin and subcutaneous tissue following other procedure; E11.622 Type 2 diabetes mellitus with other skin ulcer; T65.222A Toxic effect of tobacco cigarettes, intentional self-harm, initial encounter; E66.01 Morbid (severe) obesity due to excess calories; J44.9 Chronic obstructive pulmonary disease, unspecified | CPT/HCPCS: 11042; 97605 ==

== ENCOUNTER → 2017-08-25 | Outpatient (CLI) | payer MEDICAID ==
--- NOTE | 2017-08-25 15:30 | Diagnostic Imaging Report ---
INDICATION: History of tobacco use with a 80 pack year history. TECHNIQUE: Noncontrast, low-dose CT imaging performed according to lung cancer screening protocol. COMPARISON: 05/18/2016 FINDINGS: There is prominent ring artifact. HEART/MEDIASTINUM: Heart size normal with scattered coronary artery calcification. Thoracic aortic contour unremarkable. No suggestion for pathologically enlarged mediastinal lymph nodes on limited, noncontrast imaging. Small hernia at the EG junction. LUNGS: Advanced emphysematous changes. No significant infiltrate. Basilar areas of scarring. MEASURED PULMONARY NODULES: Calcified granuloma subpleural region anterior medial mid right chest. Smaller granuloma right lower lobe adjacent to diaphragm. OTHER: None. IMPRESSION: 1. Emphysematous change of the lung parenchyma. Calcified granulomas. No concerning pulmonary mass at baseline assessment. 2. Presence of coronary artery calcification. LUNG-RADS CATEGORY: 1B LUNG SCREENING MANAGEMENT/RECOMMENDATIONS: Continued annual screening with low dose CT in 12 months. Notes: Lung rads category 1 or 2 does not mean that an individual does not have lung cancer or other active disease process, but rather nothing is identified to meet criteria for current lung pathology. Therefore, continued annual lung cancer screening should be performed. It is noted that this is a low dose CT examination. As a technical result, the examination is limited in overall assessment compared to a conventional CT examination of the chest. Dictated by: Dictated on workstation # [id number]
== END ==
LOC: RAD 10:14
PROVIDERS: ATTEND Family Medicine
DX: J43.9 Emphysema, unspecified (principal); J84.10 Pulmonary fibrosis, unspecified; I25.84 Coronary atherosclerosis due to calcified coronary lesion

== ENCOUNTER → 2017-08-28 | Outpatient (CLI) | payer MEDICAID | LOC: WOUNDCARE 09:57 | PROVIDERS: ATTEND Surgery | DX: T81.31XA Disruption of external operation (surgical) wound, not elsewhere classified, initial encounter (principal); E11.622 Type 2 diabetes mellitus with other skin ulcer; L98.492 Non-pressure chronic ulcer of skin of other sites with fat layer exposed; J44.9 Chronic obstructive pulmonary disease, unspecified; T65.222A Toxic effect of tobacco cigarettes, intentional self-harm, initial encounter; E66.01 Morbid (severe) obesity due to excess calories; Z68.35 Body mass index [BMI] 35.0-35.9, adult | CPT/HCPCS: 11042; 97605 ==

== ENCOUNTER → 2017-08-31 | Outpatient (CLI) | payer MEDICAID | LOC: WOUNDCARE 09:59 | PROVIDERS: ATTEND Internal Medicine | DX: T81.31XA Disruption of external operation (surgical) wound, not elsewhere classified, initial encounter (principal); E11.622 Type 2 diabetes mellitus with other skin ulcer; L98.492 Non-pressure chronic ulcer of skin of other sites with fat layer exposed; J44.9 Chronic obstructive pulmonary disease, unspecified; T65.222A Toxic effect of tobacco cigarettes, intentional self-harm, initial encounter; E66.01 Morbid (severe) obesity due to excess calories; Z68.35 Body mass index [BMI] 35.0-35.9, adult | CPT/HCPCS: 97605 ==

== ENCOUNTER → 2017-09-04 | Outpatient (CLI) | payer MEDICAID | LOC: WOUNDCARE 09:45 | PROVIDERS: ATTEND Surgery | DX: T81.31XA Disruption of external operation (surgical) wound, not elsewhere classified, initial encounter (principal); E11.622 Type 2 diabetes mellitus with other skin ulcer; L98.492 Non-pressure chronic ulcer of skin of other sites with fat layer exposed; J44.9 Chronic obstructive pulmonary disease, unspecified; E66.01 Morbid (severe) obesity due to excess calories; Z68.35 Body mass index [BMI] 35.0-35.9, adult; T65.222A Toxic effect of tobacco cigarettes, intentional self-harm, initial encounter | CPT/HCPCS: 11042 ==

== ENCOUNTER → 2017-09-11 | Outpatient (CLI) | payer MEDICAID | LOC: WOUNDCARE 09:49 | PROVIDERS: ATTEND Surgery | DX: E11.622 Type 2 diabetes mellitus with other skin ulcer (principal); L98.492 Non-pressure chronic ulcer of skin of other sites with fat layer exposed; T81.31XA Disruption of external operation (surgical) wound, not elsewhere classified, initial encounter; J44.9 Chronic obstructive pulmonary disease, unspecified; E66.01 Morbid (severe) obesity due to excess calories; Z68.35 Body mass index [BMI] 35.0-35.9, adult | CPT/HCPCS: 11042 ==

== ENCOUNTER → 2017-09-18 | Outpatient (CLI) | payer MEDICAID ==
[~2017-09-18] MED LIST changes: +ALBU2.5V4 NEB; +ATOR40TA PO; +BACL10TA PO; -CITA20TA7 PO; +CITA20TA9 PO; +FURO-124 PO; +HYDR-3812 PO; +HYDR-3816 PO; +IPRA3AMP31 NEB; -METF1000 PO; +METF10002 PO; +MULT-35 PO; +POTA-53 PO; +QUET200T PO; +TRAZ-189 PO; -TRAZ-28 PO
== END ==
LOC: WOUNDCARE 09:33
PROVIDERS: ATTEND Surgery
DX: E11.622 Type 2 diabetes mellitus with other skin ulcer (principal); L98.492 Non-pressure chronic ulcer of skin of other sites with fat layer exposed; T81.31XA Disruption of external operation (surgical) wound, not elsewhere classified, initial encounter; J44.9 Chronic obstructive pulmonary disease, unspecified; E66.01 Morbid (severe) obesity due to excess calories; Z68.35 Body mass index [BMI] 35.0-35.9, adult
CPT/HCPCS: 11042

== ENCOUNTER → 2017-10-04 | Outpatient (CLI) | payer MEDICAID ==
[~2017-10-04] MED LIST changes: +IPRA3AMP NEB; -IPRA3AMP31 NEB; -TRAZ-189 PO; +TRAZ-28 PO
== END ==
LOC: WOUNDCARE 12:34
PROVIDERS: ATTEND Surgery
DX: T81.31XA Disruption of external operation (surgical) wound, not elsewhere classified, initial encounter (principal); E11.622 Type 2 diabetes mellitus with other skin ulcer; L98.492 Non-pressure chronic ulcer of skin of other sites with fat layer exposed; J44.9 Chronic obstructive pulmonary disease, unspecified; E66.01 Morbid (severe) obesity due to excess calories; Z68.35 Body mass index [BMI] 35.0-35.9, adult
CPT/HCPCS: 15271

== ENCOUNTER → 2017-10-09 | Outpatient (CLI) | payer MEDICAID | LOC: WOUNDCARE 09:47 | PROVIDERS: ATTEND Surgery | DX: T81.31XA Disruption of external operation (surgical) wound, not elsewhere classified, initial encounter (principal); E11.622 Type 2 diabetes mellitus with other skin ulcer; L98.492 Non-pressure chronic ulcer of skin of other sites with fat layer exposed; J44.9 Chronic obstructive pulmonary disease, unspecified; E66.01 Morbid (severe) obesity due to excess calories; Z68.35 Body mass index [BMI] 35.0-35.9, adult | CPT/HCPCS: 15271 ==

== ENCOUNTER → 2017-10-16 | Outpatient (CLI) | payer MEDICAID | LOC: WOUNDCARE 09:39 | PROVIDERS: ATTEND Surgery | DX: T81.31XA Disruption of external operation (surgical) wound, not elsewhere classified, initial encounter (principal); E11.622 Type 2 diabetes mellitus with other skin ulcer; L98.492 Non-pressure chronic ulcer of skin of other sites with fat layer exposed; J44.9 Chronic obstructive pulmonary disease, unspecified; E66.01 Morbid (severe) obesity due to excess calories; Z68.35 Body mass index [BMI] 35.0-35.9, adult | CPT/HCPCS: 15271 ==

== ENCOUNTER → 2017-10-23 | Outpatient (CLI) | payer MEDICAID | LOC: WOUNDCARE 09:53 | PROVIDERS: ATTEND Surgery | DX: T81.31XA Disruption of external operation (surgical) wound, not elsewhere classified, initial encounter (principal); E11.621 Type 2 diabetes mellitus with foot ulcer; L98.492 Non-pressure chronic ulcer of skin of other sites with fat layer exposed; J44.9 Chronic obstructive pulmonary disease, unspecified; E66.01 Morbid (severe) obesity due to excess calories; Z68.35 Body mass index [BMI] 35.0-35.9, adult | CPT/HCPCS: 15271 ==

== ENCOUNTER → 2017-10-31 | Outpatient (CLI) | payer MEDICAID | LOC: WOUNDCARE 12:36 | PROVIDERS: ATTEND Surgery | DX: T81.31XA Disruption of external operation (surgical) wound, not elsewhere classified, initial encounter (principal); E11.622 Type 2 diabetes mellitus with other skin ulcer; L98.492 Non-pressure chronic ulcer of skin of other sites with fat layer exposed; J44.9 Chronic obstructive pulmonary disease, unspecified; E66.01 Morbid (severe) obesity due to excess calories; Z68.35 Body mass index [BMI] 35.0-35.9, adult | CPT/HCPCS: 15271 ==

== ENCOUNTER → 2017-10-31 | Outpatient (CLI) | payer MEDICAID | LOC: LAB 13:43 | PROVIDERS: ATTEND Surgery | DX: E11.622 Type 2 diabetes mellitus with other skin ulcer (principal); L98.492 Non-pressure chronic ulcer of skin of other sites with fat layer exposed | CPT/HCPCS: 36415; 83036 ==

== ENCOUNTER 2017-11-07 07:21 | Day surgery (SDC) | payer MEDICAID ==
[2017-11-07] VITALS (9 sets, daily range): BP systolic 115–159; BP diastolic 72–105
[~2017-11-07] VITALS: Ht 172.7 cm; Wt 108.4 kg
[~2017-11-07 07:21] MED LIST changes: -ALBU2.5V4 NEB; -ATOR40TA PO; -BACL10TA PO; -FURO-124 PO; -HYDR-3812 PO; -HYDR-3816 PO; -IPRA3AMP NEB; -MULT-35 PO; -POTA-53 PO; -QUET200T PO
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
--- OUTSIDE RECORDS SUMMARY | 2017-11-07 07:25 | XMS REPORT | Clinical Summary ---
Author Author [facility] Organization [facility] Address Unknown Phone Unavailable Care Team Providers Care Early Childhood Associate Teacher Name Role Phone Anudrea Masters MD PCP Source Comments Some departments are not documenting in the electronic medical record. If you do not see the information that you expected, contact Release of Information in the Health Information Management department at [phone] for further assistance in locating additional records.[facility] Allergies Active Allergy Reactions Severity Noted Date Comments Ampicillin ANAPHYLAXIS High 07/14/2016 Penicillins ANAPHYLAXIS High 07/14/2016 Tetracycline NAUSEA AND VOMITING Low 07/14/2016 Current Medications Prescription Sig. Disp. Refills Start [...] daily. Active Problems No known active problems Family History Medical History Relation Name Comments Cancer Father Diabetes Father Heart problem Father Hypertension Father Cancer Maternal Breast Grandmother Cancer Mother Diabetes Mother Heart problem Mother Hypertension Mother Relation Name Status Comments Brother Alive Brother Alive Brother Alive Daughter Alive Daughter Alive Father Maternal Grandmother Mother Sister Alive Son Alive Son Alive Social History Tobacco Use Types Packs/Day Years Used Date Current Every Day Smoker Alcohol Use Drinks/Week oz/Week Comments No 0 Standard 0.0 drinks or equivalent Sex Assigned at Date Recorded Not on file Last Filed Vital Signs Vital Sign Reading Time Taken Blood Pressure 134/84 07/19/2016 12:12 PM [facility] Pulse 88 07/19/2016 12:12 PM [facility] Temperature 36.7 C (98 F) 07/19/2016 12:12 PM [facility] Respiratory Rate 22 07/19/2016 12:12 PM [employer] Oxygen Saturation 96% 07/19/2016 12:12 PM [employer] Inhaled Oxygen - - Concentration Weight 107.5 kg (237 lb) 07/19/2016 12:12 PM [facility] Height 172.7 cm (5' 8") 07/19/2016 12:12 PM [facility] [employer] Body Mass Index 36.04 07/19/2016 12:12 PM [facility] Plan of Treatment Health Maintenance Due Date Last Done Comments HEPATITIS C SCREENING 1961 PHYSICAL (COMPREHENSIVE) 02/11/1968 EXAM PERTUSSIS VACCINE 02/11/1972 HIV SCREENING 02/11/1976 TETANUS VACCINE 1978 COLORECTAL CANCER 2011 SCREENING INFLUENZA VACCINE 03/05/2018 Results Not on filefrom Last 3 Months
[2017-11-07] MEDS ORDERED: NS IV 1000 ML 1,000 ML ONE (07:26)
[2017-11-07] MEDS ORDERED: HEParin (CATH LAB) 2,000 ML IV ONE (07:26)
[2017-11-07] MEDS ORDERED: LIDOCAINE 1% INJ 20 ML 20 ML VIAL ONE (07:26)
--- OUTSIDE RECORDS SUMMARY | 2017-11-07 07:26 | XMS REPORT ---
Author Author KINJAL DORIS [facility] Address [address] [place] [address] Care Team Providers Care House Worker General Name Role Phone DORIS LAYTON Unavailable PROBLEMS Type Condition ICD9-CM Code QOL26-BV Code Onset Dates Condition Status SNOMED Code Problem Tobacco use Z72.0 Active 603488798 Problem Tear of right rotator cuff, unspecified tear extent M75.101 Active 718940496 Problem Enlarged lymph node R59.9 Active 15055329 Problem Nocturnal hypoxia G47.34 Active 623350873 Problem Hiatal hernia K44.9 Active 78614423 Problem Bipolar disorder, unspecified F31.9 Active 77599487 Problem Panlobular emphysema J43.1 Active 9635819 Problem Hyperplastic colonic polyp, unspecified part of colon K63.5 Active 488536118 Problem Mood disorder F39 Active 08160366 Problem Hyperlipidemia, unspecified hyperlipidemia type E78.5 Active 23816441 Problem Uncontrolled type 2 diabetes mellitus with hyperglycemia, without long -term current use of insulin E11.65 Active 011585584 Problem Non-seasonal allergic rhinitis due to other allergic trigger J30.89 Active 56354217 Problem Internal hemorrhoids K64.8 Active 09809103 Problem GERD with esophagitis K21.0 Active 523462495 Problem External hemorrhoids K64.4 Active 96648052 Problem Other chronic gastritis without hemorrhage K29.50 Active 0629059 Problem Low back pain M54.5 Active 946836460 Problem Leukocytosis D72.829 Active 977260903 Problem Other osteoarthritis of spine, cervical region M47.892 Active 727152669 Problem Hyperlipidemia E78.5 Active 35392679 Problem History of [place] (myocardial infarction) I25.2 Active 516519572 Problem Neuropathy G62.9 Active 456923414 ALLERGIES No Information ENCOUNTERS Encounter Location Date Diagnosis [facility] [address] [facility] [id number] [address] Nov, [facility] [address] [address] Sep, [facility] [id number] [place] [address] 76738- 4019 Sep, [facility] [id number] [place] [address] 25512- 8295 Sep, Leukocytosis D72.829 [facility] [id number] [place] [address] 84973- 4029 Sep, [facility] [id number] [place] [address] 63882- 8814 Sep, [facility] [id number] [place] [address] 22932- 4971 Sep, [facility] [id number] [place] [address] 43768- 5600 Aug, Low back pain M54.5 [facility] [id number] [place] [address] 49726- 9312 Aug, Bipolar disorder, unspecified F31.9 [facility] [id number] [place] [address] 00443- 3332 Aug, [facility] [id number] [place] [address] 15245- 0306 Aug, [facility] [id number] [place] [address] 19443- 1970 Aug, Uncontrolled type 2 diabetes mellitus with hyperglycemia, without long-term current use of insulin E11.65 ; Non-healing surgical wound, initial encounter T81.89XA ; Cellulitis of abdominal wall L03.311 ; Hyperlipidemia E78.5 ; Chronic obstructive pulmonary disease, unspecified COPD type J44.9 [address] Tobacco [address] Z72.0 [facility] [address] [address] Aug, [facility] [id number] [place] [address] 50787- 5528 Jul, [facility] [address] [address] 3247 Jul, [facility] [id number] [place] [address] 172850- 4296 Jul, Type 2 diabetes mellitus 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, unspecified residential insulin use status E11.40 [facility] [address] [address] Jun, Bipolar disorder, unspecified F31.9 [facility] [address] [address] 16[address] Jun, [facility] [id number] [place] [address] 020785- 4805 Jun, Bipolar disorder, unspecified F31.9 [facility] [id number] [place] [address] 67368- 7254 Jun, Mood disorder F39 [facility] [address] [address] 39[address] Jun, [facility] [id number] [place] [address] 83150- 9987 May, Fissure in skin of foot R23.4 ; Callus of foot L84 and Type 2 diabetes mellitus 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, unspecified residential insulin use status E11.40 [facility] [address] [address] May, Mood disorder F39 [facility] [address] [address] Apr, [facility] [id number] [place] [address] 32645- 8506 Apr, Cough R05 and Tobacco use Z72.0 [facility] [address] [address] 9588 Apr, Cough R05 and Tobacco use Z72.0 [facility] [address] [address] 8987 Apr, Mood disorder F39 [facility] [id number] [place] [address] 61454- 0866 Apr, Low back pain M54.5 [facility] [address] [address] 8769 Apr, Uncontrolled type 2 diabetes mellitus with hyperglycemia, without long-term current use of insulin E11.65 [facility] [address] [address] 6[address] Apr, Uncontrolled type 2 diabetes mellitus with hyperglycemia, without long-term current use of insulin E11.65 [facility] [address] [address] 3[address] Mar, Bipolar disorder, unspecified F31.9 [facility] [id number] [place] [address] 59491- 1093 Mar, [facility] [id number] [place] [address] 11856- 8164 Mar, Bipolar disorder, unspecified F31.9 [facility] [id number] [place] [address] 08803- 9360 Mar, Mood disorder F39 [facility] [address] [address] Feb, [facility] [address] [address] Feb, [facility] [address] [address] Feb, [facility] [id number] [place] [address] 81295- 9125 Feb, Bipolar disorder, unspecified F31.9 [facility] [address] [address] Feb, Uncontrolled type 2 diabetes mellitus with hyperglycemia, without long-term current use of insulin E11.65 ; Encounter for immunization Z23 ; Vasovagal syncope R55 and Low back pain M54.5 [place] [address] 19222- 5462 Jan, Bipolar disorder, unspecified F31.9 [place] [address] 77683- 2966 Jan, [place] [address] 79067- 7306 Jan, Fatigue, unspecified type R53.83 ; Nocturnal hypoxia G47.34 ; Leukocytosis D72.829 ; Other chronic gastritis without hemorrhage K29.50 ; Uncontrolled type 2 diabetes mellitus with hyperglycemia, without long-term current use of insulin E11.65 ; Alternating constipation and diarrhea R19.8 and Chronic obstructive pulmonary disease, unspecified COPD type J44.9 [place] [address] 16126- 2719 Jan, [place] [address] 71512- 2367 Jan, Leukocytosis D72.829 [place] [address] 51269- 0437 Jan, Mood disorder F39 [place] [address] 05126- 6523 Dec, Bipolar disorder, unspecified F31.9 [place] [address] 75957- 6858 Dec, [facility] [address] 39691 -6620 Dec, Acute gastritis without bleeding K29.00 [place] [address] 56600- 7480 Dec, Leukocytosis D72.829 [place] [address] 45149- 5725 Dec, [place] [address] [place] [address] 18543- 8598 Dec, Dental examination Z01.20 [facility] [id number] [place] [address] 29245- 9585 Dec, [facility] [id number] [place] [address] 38751- 6207 Dec, Leukocytosis D72.829 [place] [address] 56183- 6689 Dec, Uncontrolled type 2 diabetes mellitus with hyperglycemia, without long-term current use of insulin E11.65 [facility] [id number] [place] [address] 64187- 0233 Nov, Dental examination Z01.20 [facility] [id number] [place] [address] 87430- 3353 Nov, [facility] [id number] [place] [address] 41852- 5473 Nov, Major depressive disorder, recurrent episode, moderate F33.1 [place] [id number] [place] [address] 44311- 6880 Nov, Leukocytosis D72.829 [place] [id number] [place] [address] 96547- 0608 Nov, Mood disorder F39 [place] [id number] [place] [address] 10629- 4128 Nov, Other osteoarthritis of spine, cervical region M47.892 and Uncontrolled type 2 diabetes mellitus with hyperglycemia, without long-term current use of insulin E11.65 [place] [id number] [place] [address] 88513- 9597 Nov, Leukocytosis D72.829 and Elevated serum glucose R73.9 [place] [id number] [place] [address] 60411- 7469 October, Elevated serum glucose R73.9 [facility] [address] [address] 4816 October, Mood disorder F39 [facility] [address] [address]- 0551 Sep, Major depressive disorder, recurrent episode, moderate F33.1 [facility] [address] [address]- 1482 Sep, Mood disorder F39 [facility] [address] [address]- 7781 Aug, [facility] [id number] [place] [address] 37988- 0238 Jul, Major depressive disorder, recurrent episode, moderate F33.1 [facility] [address] [address]- 2139 Jul, Mood disorder F39 [facility] [address] [address]- 1467 Jul, [facility] [address] [address]- 4942 Jul, History of LA (myocardial infarction) I25.2 ; Hyperlipidemia E78.5 ; Prediabetes R73.09 ; Chronic obstructive pulmonary disease, unspecified COPD type J44.[address] [facility] [address] [address]- 8806 Jun, [facility] [id number] [address]- 8193 Jun, Mood disorder F39 [facility] [address] [address]- 9776 Jun, [facility] [id number] [address]- 4675 May, Major depressive disorder, recurrent episode, moderate F33.1 and Primary insomnia F51.01 [facility] [address] [address]- 7789 15 May, [address] [facility] [id number] [place] [address] 19981- 0663 Apr, [facility] [id number] [place] [address] 39197- 1376 Apr, Mood disorder F39 [facility] [id number] [place] [address] 47667- 6379 Apr, [facility] [id number] [place] [address] 28488- 4197 Apr, [facility] [id number] [place] [address] 48166- 5258 Apr, Chronic obstructive pulmonary disease, unspecified COPD type J44.9 and Non-seasonal allergic rhinitis due to other allergic trigger J30.89 [facility] [id number] [place] [address] 81218- 0375 11 Apr, [address] [facility] [id number] [place] [address] 01454- 4854 10 Apr, 2016 Major depressive disorder, recurrent episode, moderate F33.1 and PTSD (post-traumatic stress disorder) F43.10 [facility] [address] [address]- 2307 Apr, [facility] [id number] [place] [address] 80403- 6868 Apr, [facility] [id number] [place] [address] 53362- 7944 Apr, Chest pain, unspecified type R07.9 ; Chronic obstructive pulmonary disease, unspecified COPD type J44.9 ; Hyperlipidemia, unspecified hyperlipidemia type E78.5 [address] Tobacco [address] Z72.0 [facility] [address] [address]- 8589 Mar, Mood disorder F39 [place] [id number] [place] [address] 53501- 7033 Mar, Mood disorder F39 [place] [id number] [place] [address] 59132- 1968 Mar, Other osteoarthritis of spine, cervical region M47.892 [place] [id number] [place] [address] 19116- 4756 Mar, Tear of right rotator cuff, unspecified tear extent M75.101 [place] [id number] [place] [address] 76969- 7329 Mar, [place] [address] 74086- 5615 Mar, Bipolar II disorder F31.81 [place] [id number] [place] [address] 37112- 4407 Mar, [place] [id number] [place] [address] 44802- 2040 Feb, Impingement syndrome of right shoulder M75.41 ; Tear of right rotator cuff, unspecified tear extent M75.101 and Loose body in right elbow M24.021 [place] [id number] [place] [address] 60598- 2340 Jan, [place] [id number] [place] [address] 98422- 2483 Jan, [place] [id number] [place] [address] 70702- 7028 Jan, Prediabetes R73.09 ; Other chronic pain G89.29 and Pain in right shoulder M25.511 [place] [id number] [place] [address] 72392- 9398 Dec, [place] [id number] [place] [address] 30023- 2898 Dec, Heartburn R12 and Chest discomfort R07.89 [place] [address] [place] [address]- 5862 Dec, Impingement syndrome of right shoulder M75.41 and 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, 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 [place] [address] [place] [address] 40751- 8128 Nov, [place] [id number] [place] [address] 99875- 2669 Nov, Leukocytosis D72.829 [place] [id number] [place] [address] 69142- 6976 Nov, [place] [id number] [place] [address] 63976- 4742 Nov, Enlarged lymph node R59.9 ; Chronic obstructive pulmonary disease, unspecified COPD type J44.9 ; Low back pain M54.5 ; Neuropathy G62.9 and Closed nondisplaced fracture of sternal end of right clavicle, sequela S42.017S [place] [id number] [place] [address] 27233- 9460 October, [place] [id number] [place] [address] 41545- 6437 October, [place] [id number] [place] [address] 99544- 5923 Sep, [place] [id number] [place] [address] 17330- 1278 Aug, Double vision H53.2 ; Occipital headache R51 ; Chronic obstructive pulmonary disease, unspecified COPD type J44.9 and Gastroesophageal reflux disease, esophagitis presence not specified K21.9 [place] [id number] [place] [address] 55178- 4770 Aug, [place] [id number] [place] [address] 27010- 2258 Jul, Enlarged lymph node in neck R59.0 [place] [address] [place] [address]- 9753 12 Jul, 2015 [place] [address] 98398- 3932 10 Jul, 2015 Chronic obstructive pulmonary disease, unspecified COPD type J44.9 ; Tobacco use Z72.0 ; Leukocytosis D72.829 ; Hyperlipidemia E78.5 and Neck abscess L02.11 [place] [address] 37072- 9455 14 Jun, 2015 Shortness of breath R06.02 [place] [address] 88321- 8105 17 May, 2015 Leukocytosis D72.829 and Shortness of breath R06.02 [place] [address] 12829- 2929 09 May, 2015 Low back pain M54.5 ; Hyperlipidemia E78.5 ; Leukocytosis D72.829 ; Other osteoarthritis of spine, cervical region M47.892 and Shortness of breath R06.02 [place] [id number] [place] [address] 39924- 7542 18 Feb, 2015 Chest pain 786.50 ; Tobacco use 305.1 ; Back pain 724.5 and Hyperlipemia 272.4 [place] [id number] [place] [address] 36357- 2644 Jan, [place] [address] 24953- 3298 Jan, Chronic low back pain 724.2 and Degenerative arthritis of cervical spine 721.0 [place] [id number] [place] [address] 22622- 7991 Jan, Chronic low back pain 724.2 and Neck pain 723.1 [place] [id number] [place] [address] 18935- 7637 Dec, Chronic low back pain 724.2 and Neck pain 723.1 [place] [address] [place] [address]- 1162 Nov, Chest pain 786.50 ; Dyspnea 786.09 ; Tobacco use 305.1 [address] Back pain [address]24.5 [facility] [id number] [place] [address] 75826- 8965 Nov, [facility] [id number] [place] [address] 24404- 2823 Nov, Disability examination V68.01 and Muscle pain 729.1 [place] [id number] [place] [address] 47980- 5608 October, History of [place] (myocardial infarction) 412 ; Hyperlipidemia LDL goal < 100 272.4 ; Leukocytosis 288.60 and Glucose intolerance (pre-diabetes ) 790.29 [place] [address] [place] [address] 52972- 3693 October, Chest pain 786.50 ; Chronic low back pain 724.2 ; History of [place] (myocardial infarction) 412 and Neuropathy 355.9 [place] [address] [place] [address] 62020- 7289 October, Chronic low back pain 724.2 ; Chest pain 786.50 ; History of [place] (myocardial infarction) 412 and Neuropathy 355.9 IMMUNIZATIONS No Known Immunizations SOCIAL HISTORY Never Assessed REASON FOR VISIT Blood sugar concerns PLAN OF CARE VITAL SIGNS MEDICATIONS Unknown Medications RESULTS No Results PROCEDURES No Known procedures INSTRUCTIONS MEDICATIONS ADMINISTERED No Known Medications MEDICAL [...]
--- OUTSIDE RECORDS SUMMARY | 2017-11-07 07:26 | XMS REPORT ---
Author Author KIA BUITRAGO Organization 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 Name Role Phone KAI BUITRAGO Unavailable PROBLEMS Type Condition ICD9-CM Code VDX03-PB Code Onset Dates Condition Status SNOMED Code Problem Tobacco use Z72.0 Active 593601556 Problem Tear of right rotator cuff, unspecified tear extent M75.101 Active 268177368 Problem Enlarged lymph node R59.9 Active 45591511 Problem Nocturnal hypoxia G47.34 Active 884442600 Problem Hiatal hernia K44.9 Active 48623826 Problem Bipolar disorder, unspecified F31.9 Active 97537717 Problem Panlobular emphysema J43.1 Active 2651640 Problem Hyperplastic colonic polyp, unspecified part of colon K63.5 Active 547588980 Problem Mood disorder F39 Active 07704383 Problem Hyperlipidemia, unspecified hyperlipidemia type E78.5 Active 70905667 Problem Uncontrolled type 2 diabetes mellitus with hyperglycemia, without long -term current use of insulin E11.65 Active 365809493 Problem Non-seasonal allergic rhinitis due to other allergic trigger J30.89 Active 11244427 Problem Internal hemorrhoids K64.8 Active 50024251 Problem GERD with esophagitis K21.0 Active 509368342 Problem External hemorrhoids K64.4 Active 14083518 Problem Other chronic gastritis without hemorrhage K29.50 Active 7934421 Problem Low back pain M54.5 Active 640726921 Problem Leukocytosis D72.829 Active 735735027 Problem Other osteoarthritis of spine, cervical region M47.892 Active 834638551 Problem Hyperlipidemia E78.5 Active 63403674 Problem History of ME (myocardial infarction) I25.2 Active 163855235 Problem Neuropathy G62.9 Active [id number] ALLERGIES No Information ENCOUNTERS Encounter Location Date Diagnosis [facility] [address] [facility] [id number] [address] Aug, [place] [address] [address] Aug, Uncontrolled type 2 diabetes mellitus with hyperglycemia, without long-term current use of insulin E11.65 ; Non-healing surgical wound, initial encounter T81.89XA ; Cellulitis of abdominal wall L03.311 ; Hyperlipidemia E78.5 ; Chronic obstructive pulmonary disease, unspecified COPD type J44.9 and Tobacco use Z72.0 [place] [address] [place] [id number] [place] [address] 02591- 5814 Aug, [place] [address] [id number] [place] [address] 00888- 5223 Jul, [place] [address] [id number] [place] [address] 36324- 3303 Jul, [place] [address] [id number] [place] [address] 45477- 3041 Jul, Type 2 diabetes mellitus 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, unspecified jail insulin use status E11.40 [place] [id number] [place] [address] 84268- 9776 Jun, Bipolar disorder, unspecified F31.9 [place] [address] [id number] [place] [address] 18327- 9747 Jun, [place] [address] [id number] [place] [address] 43431- 5171 Jun, Bipolar disorder, unspecified F31.9 [place] [address] [id number] [place] [address] 30935- 4027 Jun, Mood disorder F39 [place] [address] [id number] [place] [address] 48680- 9992 Jun, [facility] [address] [id number] [place] [address] 59298- 4934 May, Fissure in skin of foot R23.4 ; Callus of foot L84 and Type 2 diabetes mellitus 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, unspecified jail insulin use status E11.40 [place] [id number] [place] [address] 82865- 0292 May, Mood disorder F39 [place] [address] [place] [id number] [place] [address] 62173- 8434 Apr, [place] [address] [place] [id number] [place] [address] 02464- 2756 Apr, Cough R05 and Tobacco use Z72.0 [place] [address] 27000- 7722 13 Apr, 2017 Cough R05 and Tobacco use Z72.0 [place] [address] 08706- 6979 Apr, Mood disorder F39 [place] [address] [id number] [place] [address] 06891- 6297 Apr, Low back pain M54.5 [place] [address] [id number] [place] [address] 86999- 9979 Apr, Uncontrolled type 2 diabetes mellitus with hyperglycemia, without long-term current use of insulin E11.65 [place] [address] [id number] [place] [address] 33985- 1241 Apr, Uncontrolled type 2 diabetes mellitus with hyperglycemia, without long-term current use of insulin E11.65 [place] [address] [id number] [place] [address] 67821- 7936 Mar, Bipolar disorder, unspecified F31.9 [place] [address] [id number] [place] [address] 31194- 6886 Mar, [place] [address] [id number] [place] [address] 48214- 6886 Mar, Bipolar disorder, unspecified F31.9 [place] [id number] [place] [address] 98705- 3389 Mar, Mood disorder F39 [place] [id number] [place] [address] 43865- 0143 Feb, [place] [id number] [place] [address] 46674- 4324 Feb, [place] [address] [id number] [place] [address] 61317- 8768 Feb, [place] [address] [id number] [place] [address] 57220- 3460 Feb, Bipolar disorder, unspecified F31.9 [place] [address] [id number] [place] [address] 78662- 7334 Feb, Uncontrolled type 2 diabetes mellitus with hyperglycemia, without long-term current use of insulin E11.65 ; Encounter for immunization Z23 ; Vasovagal syncope R55 and Low back pain M54.5 [place] [address] [id number] [place] [address] 83025- 8695 Jan, Bipolar disorder, unspecified F31.9 [place] [address] [id number] [place] [address] 03074- 6483 Jan, [place] [address] [id number] [place] [address] 14561- 6471 Jan, Fatigue, unspecified type R53.83 ; Nocturnal hypoxia G47.34 ; Leukocytosis D72.829 ; Other chronic gastritis without hemorrhage K29.50 ; Uncontrolled type 2 diabetes mellitus with hyperglycemia, without long-term current use of insulin E11.65 ; Alternating constipation and diarrhea R19.8 and Chronic obstructive pulmonary disease, unspecified COPD type J44.9 [place] [id number] [place] [address] 62324- 7964 Jan, [place] [address] [place] [id number] [place] [address] 20186- 3283 Jan, Leukocytosis D72.829 [place] [address] [id number] [place] [address] 47810- 7124 Jan, Mood disorder F39 [place] [address] [id number] [place] [address] 49277- 4025 Dec, Bipolar disorder, unspecified F31.9 [facility] [address], [place] [address] Dec, [facility] [address], [place] [address] Dec, Acute gastritis without bleeding K29.00 [facility] [id number] [place] [address] 70945- 2830 Dec, Leukocytosis D72.829 [facility] [id number] [place] [address] 03315- 9674 Dec, [facility] [address] [place] [id number] [place] [address] 50610- 2502 Dec, Dental examination Z01.20 [place] [address] [id number] [place] [address] 27898- 9745 Dec, [facility] [address] [place] [id number] [place] [address] 62531- 3003 Dec, Leukocytosis D72.829 [facility] [address] [place] [id number] [place] [address] 38084- 8315 Dec, Uncontrolled type 2 diabetes mellitus with hyperglycemia, without long-term current use of insulin E11.65 [place] [address], [place] [address] 4213 Nov, Dental examination Z01.20 [facility] [id number] [place] [address] 59725- 7717 Nov, [facility] [id number] [place] [address] 41785- 5401 Nov, Major depressive disorder, recurrent episode, moderate F33.1 [facility] [address], [place] [address] 06 Nov, 2016 Leukocytosis D72.829 [facility] [address] [place] [id number] [place] [address] 60263- 3004 Nov, Mood disorder F39 [place] [address], [place] [address] Nov, Other osteoarthritis of spine, cervical region M47.892 and Uncontrolled type 2 diabetes mellitus with hyperglycemia, without long-term current use of insulin E11.65 [place] [id number] [place] [address] 69920- 1553 Nov, Leukocytosis D72.829 and Elevated serum glucose R73.9 [place] [address] [place] [id number] [place] [address] 25941- 8273 October, Elevated serum glucose R73.9 [place] [address] [place] [id number] [place] [address] 93196- 4593 October, Mood disorder F39 [place] [address] [id number] [place] [address] 24946- 2037 Sep, Major depressive disorder, recurrent episode, moderate F33.1 [place] [id number] [place] [address] 20362- 4067 Sep, Mood disorder F39 [place] [address] [id number] [place] [address] 43553- 5871 Aug, [place] [id number] [place] [address] 32465- 8274 Jul, Major depressive disorder, recurrent episode, moderate F33.1 [place] [address] [id number] [place] [address] 77514- 5192 Jul, Mood disorder F39 [place] [id number] [place] [address] 41599- 0824 Jul, [place] [address] [place] [id number] [place] [address] 53849- 1786 Jul, History of ME (myocardial infarction) I25.2 ; Hyperlipidemia E78.5 ; Prediabetes R73.09 ; Chronic obstructive pulmonary disease, unspecified COPD type J44.9 and Tobacco use Z72.0 [facility] [address] [address]- 0429 Jun, [facility] [address] [place] [id number] [place] [address] 10419- 8899 Jun, Mood disorder F39 [facility] [address], [place] [address]- 4764 Jun, [facility] [address] [place] [id number] [place] [address] 47368- 0897 May, Major depressive disorder, recurrent episode, moderate F33.1 and Primary insomnia F51.01 [facility] [address] [place] [id number] [place] [address] 90443- 7449 May, Mood disorder F39 [facility] [address] [place] [id number] [place] [address] 37467- 0136 Apr, [facility] [address] [place] [id number] [place] [address] 21145- 1197 Apr, Mood disorder F39 [facility] [id number] [place] [address] 98217- 5566 Apr, [facility] [id number] [place] [address] 80859- 0157 Apr, [facility] [address], [place] [address]- 9660 Apr, Chronic obstructive pulmonary disease, unspecified COPD type J44.9 and Non-seasonal allergic rhinitis due to other allergic trigger J30.89 [facility] [address], [place] [address]- 1379 Apr, Mood disorder F39 [facility] [address], [place] [address]- 2969 10 Apr, 2016 Major depressive disorder, recurrent episode, moderate F33.1 and PTSD (post-traumatic stress disorder) F43.10 [facility] [id number] [place] [address] 54080- 6078 Apr, [place] [address] [place] [id number] [place] [address] 61912- 8583 Apr, [place] [address] [place] [id number] [place] [address] 10045- 3282 Apr, Chest pain, unspecified type R07.9 ; Chronic obstructive pulmonary disease, unspecified COPD type J44.9 ; Hyperlipidemia, unspecified hyperlipidemia type E78.5 and Tobacco use Z72.0 [place] [address] [place] [id number] [place] [address] 98864- 2672 Mar, Mood disorder F39 [place] [address] 53338- 3843 Mar, Mood disorder F39 [place] [address] [place] [id number] [place] [address] 13673- 6976 Mar, Other osteoarthritis of spine, cervical region M47.892 [place] [address] 23089- 6170 Mar, Tear of right rotator cuff, unspecified tear extent M75.101 [place] [address] 13079- 3127 Mar, [place] [address] [place] [id number] [place] [address] 96885- 0429 Mar, Bipolar II disorder F31.81 [place] [address] [id number] [place] [address] 40852- 8965 Mar, [place] [address] [place] [id number] [place] [address] 58635- 0329 Feb, Impingement syndrome of right shoulder M75.41 ; Tear of right rotator cuff, unspecified tear extent M75.101 and Loose body in right elbow M24.021 [place] [address] [place] [id number] [place] [address] 70512- 0837 Jan, [place] [address] 71264- 1359 Jan, [place] [address] [place] [id number] [place] [address] 53208- 0160 Jan, Prediabetes R73.09 ; Other chronic pain G89.29 and Pain in right shoulder M25.511 [place] [address] [place] [id number] [place] [address] 43446- 9230 Dec, [place] [address] 78494- 1431 Dec, Heartburn R12 and Chest discomfort R07.89 [place] [address] [place] [id number] [place] [address] 85079- 7482 Dec, Impingement syndrome of right shoulder M75.41 and 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, 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 [place] [address] [place] [id number] [place] [address] 34788- 7228 Nov, [place] [address] [place] [id number] [place] [address] 99833- 6161 Nov, Leukocytosis D72.829 [place] [address] [place] [id number] [place] [address] 21403- 4698 Nov, [place] [address] [place] [id number] [place] [address] 33991- 3478 Nov, Enlarged lymph node R59.9 ; Chronic obstructive pulmonary disease, unspecified COPD type J44.9 ; Low back pain M54.5 ; Neuropathy G62.9 and Closed nondisplaced fracture of sternal end of right clavicle, sequela S42.017S [place] [address] [place] [id number] [place] [address] 95515- 7997 October, [place] [address] [place] [id number] [place] [address] 53195- 6218 October, [place] [address] [place] [id number] [place] [address] 76276- 5158 Sep, [place] [address] [id number] [place] [address] 95247- 6339 24 Aug, 2015 Double vision H53.2 ; Occipital headache R51 ; Chronic obstructive pulmonary disease, unspecified COPD type J44.9 and Gastroesophageal reflux disease, esophagitis presence not specified K21.9 [place] [address] [place] [id number] [place] [address] 58287- 8998 Aug, [place] [address] 97772- 8421 Jul, Enlarged lymph node in neck R59.0 [place] [address] 65109- 3882 Jul, [place] [address] 89660- 0284 10 Jul, 2015 Chronic obstructive pulmonary disease, unspecified COPD type J44.9 ; Tobacco use Z72.0 ; Leukocytosis D72.829 ; Hyperlipidemia E78.5 and Neck abscess L02.11 [place] [address] [place] [id number] [place] [address] 92215- 2891 Jun, Shortness of breath R06.02 [place] [address] 65801- 1117 May, Leukocytosis D72.829 and Shortness of breath R06.02 [place] [address] [place] [id number] [place] [address] 35392- 4365 May, Low back pain M54.5 ; Hyperlipidemia E78.5 ; Leukocytosis D72.829 ; Other osteoarthritis of spine, cervical region M47.892 and Shortness of breath R06.02 [place] [address] 08202- 7886 18 Feb, 2015 Chest pain 786.50 ; Tobacco use 305.1 ; Back pain 724.5 and Hyperlipemia 272.4 [place] [address] [place] [id number] [place] [address] 19313- 3547 Jan, [place] [id number] [place] [address] 37009- 6265 Jan, Chronic low back pain 724.2 and Degenerative arthritis of cervical spine 721.[address] 99731- 1777 Jan, Chronic low back pain 724.2 and Neck pain 723.[address] 27676- 4430 Dec, Chronic low back pain 724.2 and Neck pain 723.[address] 02643- 4961 Nov, Chest pain 786.50 ; Dyspnea 786.09 ; Tobacco use 305.1 and Back pain 724.[address] 68235- 0685 Nov, [address] 66014- 4347 Nov, Disability examination V68.01 and Muscle pain 729.[address] 53791- 2688 October, History of ME (myocardial infarction) 412 ; Hyperlipidemia LDL goal < 100 272.4 ; Leukocytosis 288.60 and Glucose intolerance (pre-diabetes ) 790.[address] 87822- 4353 October, Chest pain 786.50 ; Chronic low back pain 724.2 ; History of ME (myocardial infarction) 412 and Neuropathy 355.[address] 35370- 3248 October, Chronic low back pain 724.2 ; Chest pain 786.50 ; History of ME (myocardial infarction) 412 and Neuropathy 355.9 IMMUNIZATIONS No Known Immunizations SOCIAL HISTORY Never Assessed REASON FOR VISIT Dental Screening PLAN OF CARE Activity Details Follow Up prn Reason:dental est. care VITAL SIGNS MEDICATIONS Unknown Medications RESULTS No Results PROCEDURES Procedure Date Ordered Result Body Site SCREENING OF A PATIENT November 30, 2016 Billing Notes on claim November 30, 2016 INSTRUCTIONS MEDICATIONS ADMINISTERED No Known Medications MEDICAL [...]
--- OUTSIDE RECORDS SUMMARY | 2017-11-07 07:27 | XMS REPORT ---
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 Role Phone DORIS LAYTON Unavailable PROBLEMS Type Condition ICD9-CM Code [id number] Code Onset Dates Condition Status SNOMED Code Problem Tobacco use Z72.0 Active 579833895 Problem Tear of right rotator cuff, unspecified tear extent M75.101 Active 264183108 Problem Enlarged lymph node R59.9 Active 97418841 Problem Nocturnal hypoxia G47.34 Active 724888769 Problem Hiatal hernia K44.9 Active 65142662 Problem Bipolar disorder, unspecified F31.9 Active 00923800 Problem Panlobular emphysema J43.1 Active 9380482 Problem Hyperplastic colonic polyp, unspecified part of colon K63.5 Active 850982403 Problem Mood disorder F39 Active 15920334 Problem Hyperlipidemia, unspecified hyperlipidemia type E78.5 Active 02226011 Problem Uncontrolled type 2 diabetes mellitus with hyperglycemia, without long -term current use of insulin E11.65 Active 982875565 Problem Non-seasonal allergic rhinitis due to other allergic trigger J30.89 Active 50939151 Problem Internal hemorrhoids K64.8 Active 11388555 Problem GERD with esophagitis K21.0 Active 342405477 Problem External hemorrhoids K64.4 Active 00619426 Problem Other chronic gastritis without hemorrhage K29.50 Active 8121098 Problem Low back pain M54.5 Active 657672548 Problem Leukocytosis D72.829 Active 035098698 Problem Other osteoarthritis of spine, cervical region M47.892 Active 204138736 Problem Hyperlipidemia E78.5 Active 75675799 Problem History of [place] (my[place] infarction) I25.2 Active 933287182 Problem Neuropathy G62.9 Active 677874630 ALLERGIES No Information ENCOUNTERS Encounter Location Date Diagnosis [facility] [address] [facility] [id number] [address] Nov, [facility] [address] [address] Sep, [facility] [id number] [place] [address] 44371- 2676 Sep, [facility] [id number] [place] [address] 51095- 0465 Sep, Leukocytosis D72.829 [facility] [id number] [place] [address] 01838- 3535 Sep, [facility] [id number] [place] [address] 04261- 8680 Sep, [facility] [id number] [place] [address] 69060- 3628 Sep, [facility] [id number] [place] [address] 00481- 8699 Aug, Low back pain M54.5 [facility] [id number] [place] [address] 09712- 7275 Aug, Bipolar disorder, unspecified F31.9 [facility] [id number] [place] [address] 82978- 7472 Aug, [facility] [id number] [place] [address] 20584- 2630 Aug, [facility] [id number] [place] [address] 01317- 9520 Aug, Uncontrolled type 2 diabetes mellitus with hyperglycemia, without long-term current use of insulin E11.65 ; Non-healing surgical wound, initial encounter T81.89XA ; Cellulitis of abdominal wall L03.311 ; Hyperlipidemia E78.5 ; Chronic obstructive pulmonary disease, unspecified COPD type J44.9 and Tobacco use Z72.0 [facility] [address] [address] 0877 Aug, [facility] [id number] [place] [address] 44907- 2760 Jul, [facility] [address] [address] 0815 Jul, [facility] [id number] [place] [address] 925456- 9836 Jul, Type 2 diabetes mellitus 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, unspecified fpc insulin use status E11.40 [facility] [address] [address] 5679 Jun, Bipolar disorder, unspecified F31.9 [facility] [address] [address] 8860 Jun, [facility] [id number] [place] [address] 844023- 7986 Jun, Bipolar disorder, unspecified F31.9 [facility] [address] [place] [address] 69387- 3427 Jun, Mood disorder F39 [facility] [address] [address] 7392 Jun, [facility] [address] [place] [address] 05263- 0216 May, Fissure in skin of foot R23.4 ; Callus of foot L84 and Type 2 diabetes mellitus 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, unspecified fpc insulin use status E11.40 [facility] [address] [address] 8079 May, Mood disorder F39 [facility] [address], [place] [address] 7665 Apr, [facility] [id number] [place] [address] 69824- 2242 Apr, Cough R05 and Tobacco use Z72.0 [facility] [address] [address] 3859 Apr, Cough R05 and Tobacco use Z72.0 [facility] [address] [address] 2202 Apr, Mood disorder F39 [facility] [id number] [place] [address] 09982- 4646 Apr, Low back pain M54.5 [facility] [address] [address] 9993 Apr, Uncontrolled type 2 diabetes mellitus with hyperglycemia, without long-term current use of insulin E11.65 [facility] [address] [address] 4620 Apr, Uncontrolled type 2 diabetes mellitus with hyperglycemia, without long-term current use of insulin E11.65 [facility] [address] [address] 2738 Mar, Bipolar disorder, unspecified F31.9 [facility] [id number] [place] [address] 24539- 9130 Mar, [facility] [id number] [place] [address] 43179- 5050 Mar, Bipolar disorder, unspecified F31.9 [facility] [address] [place] [address] 16384- 6220 Mar, Mood disorder F39 [facility] [address] [address] 7393 Feb, [facility] [address] [address] 6478 Feb, [facility] [address] [address] 1335 Feb, [facility] [address] [place] [address] 01752- 2520 Feb, Bipolar disorder, unspecified F31.9 [facility] [address] [address] 9356 Feb, Uncontrolled type 2 diabetes mellitus with hyperglycemia, without long-term current use of insulin E11.65 ; Encounter for immunization Z23 ; Vasovagal syncope R55 and Low back pain M54.5 [place] [address] 95201- 1678 Jan, Bipolar disorder, unspecified F31.9 [facility] [address] 79300- 3754 Jan, [facility] [address] 39384- 1004 Jan, Fatigue, unspecified type R53.83 ; Nocturnal hypoxia G47.34 ; Leukocytosis D72.829 ; Other chronic gastritis without hemorrhage K29.50 ; Uncontrolled type 2 diabetes mellitus with hyperglycemia, without long-term current use of insulin E11.65 ; Alternating constipation and diarrhea R19.8 and Chronic obstructive pulmonary disease, unspecified COPD type J44.9 [facility] [address] 60825- 7717 Jan, [facility] [address] 81706- 5781 Jan, Leukocytosis D72.829 [facility] [address] 09204- 0804 Jan, Mood disorder F39 [facility] [address] 11252- 8373 Dec, Bipolar disorder, unspecified F31.9 [facility] [address] 26807- 9393 Dec, [facility] [address] 39949 -3605 Dec, Acute gastritis without bleeding K29.00 [facility] [address] 10409- 3358 Dec, Leukocytosis D72.829 [facility] [address] 11689- 9074 Dec, [facility] [id number] [place] [address] 19776- 4375 Dec, Dental examination Z01.20 [facility] [id number] [place] [address] 17904- 0780 Dec, [facility] [id number] [place] [address] 82205- 9339 Dec, Leukocytosis D72.829 [facility] [address] 37003- 8760 Dec, Uncontrolled type 2 diabetes mellitus with hyperglycemia, without long-term current use of insulin E11.65 [facility] [id number] [place] [address] 26292- 6471 Nov, Dental examination Z01.20 [facility] [id number] [place] [address] 62112- 4303 Nov, [facility] [id number] [place] [address] 51883- 9148 Nov, Major depressive disorder, recurrent episode, moderate F33.1 [place] [id number] [place] [address] 50304- 3085 Nov, Leukocytosis D72.829 [facility] [id number] [place] [address] 68453- 8327 Nov, Mood disorder F39 [facility] [id number] [place] [address] 53231- 4689 Nov, Other osteoarthritis of spine, cervical region M47.892 and Uncontrolled type 2 diabetes mellitus with hyperglycemia, without long-term current use of insulin E11.65 [facility] [id number] [place] [address] 22403- 9288 Nov, Leukocytosis D72.829 and Elevated serum glucose R73.9 [place] [id number] [place] [address] 64633- 9955 October, Elevated serum glucose R73.9 [facility] [address] [address]- 8273 October, Mood disorder F39 [facility] [address], [place] [address]- 7843 Sep, Major depressive disorder, recurrent episode, moderate F33.1 [facility] [address], [place] [address]- 6889 Sep, Mood disorder F39 [facility] [address], [place] [address]- 3615 Aug, [facility] [address] [place] [address] 91418- 3406 Jul, Major depressive disorder, recurrent episode, moderate F33.1 [facility] [address] [address]- 6612 Jul, Mood disorder F39 [facility] [address], [place] [address]- 3203 Jul, [facility] [address] [address]- 0592 Jul, History of [place] (my[place] infarction[place] I25.2 ; Hyperlipidemia E78.5 ; Prediabetes R73.09 ; Chronic obstructive pulmonary disease, unspecified COPD type J44.9 and Tobacco use Z72.0 [facility] [address] [address]- 7593 Jun, [facility] [id number] [address]- 5820 Jun, Mood disorder F39 [facility] [address], [place] [address]- 5518 Jun, [facility] [id number] [address]- 2855 May, Major depressive disorder, recurrent episode, moderate F33.1 and Primary insomnia F51.01 [facility] [address], [place] [address]- 4247 15 May, 2016 Mood disorder F39 [facility] [id number] [place] [address] 22014- 4003 Apr, [facility] [id number] [place] [address] 37128- 9116 Apr, Mood disorder F39 [facility] [id number] [place] [address] 85560- 2110 Apr, [facility] [id number] [place] [address] 73431- 1798 Apr, [facility] [id number] [place] [address] 90106- 2184 Apr, Chronic obstructive pulmonary disease, unspecified COPD type J44.9 and Non-seasonal allergic rhinitis due to other allergic trigger J30.89 [facility] [id number] [place] [address] 67821- 1295 11 Apr, 2016 Mood disorder F39 [facility] [id number] [place] [address] 91856- 0810 10 Apr, 2016 Major depressive disorder, recurrent episode, moderate F33.1 and PTSD (post-traumatic stress disorder) F43.10 [facility] [address] [address]- 9789 Apr, [facility] [id number] [place] [address] 23088- 9973 Apr, [facility] [address] [place] [address] 80848- 5527 Apr, Chest pain, unspecified type R07.9 ; Chronic obstructive pulmonary disease, unspecified COPD type J44.9 ; Hyperlipidemia, unspecified hyperlipidemia type E78.5 and Tobacco use Z72.0 [facility] [address] [address]- 9424 Mar, Mood disorder F39 [facility] [id number] [place] [address] 03994- 3821 Mar, Mood disorder F39 [facility] [id number] [place] [address] 86662- 4644 Mar, Other osteoarthritis of spine, cervical region M47.892 [facility] [id number] [place] [address] 20410- 8851 Mar, Tear of right rotator cuff, unspecified tear extent M75.101 [facility] [id number] [place] [address] 35502- 4235 Mar, [facility] [address] 75968- 8441 Mar, Bipolar II disorder F31.81 [facility] [id number] [place] [address] 29748- 3841 Mar, [facility] [id number] [place] [address] 57515- 5959 Feb, Impingement syndrome of right shoulder M75.41 ; Tear of right rotator cuff, unspecified tear extent M75.101 and Loose body in right elbow M24.021 [facility] [id number] [place] [address] 76940- 9996 Jan, [facility] [id number] [place] [address] 07526- 3860 Jan, [facility] [id number] [place] [address] 05047- 0033 Jan, Prediabetes R73.09 ; Other chronic pain G89.29 and Pain in right shoulder M25.511 [facility] [id number] [place] [address] 09066- 2086 Dec, [facility] [id number] [place] [address] 13628- 0107 Dec, Heartburn R12 and Chest discomfort R07.89 [facility] [address] [place] [address]- 2413 Dec, Impingement syndrome of right shoulder M75.41 and 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, 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 [facility] [address] [place] [address] 13083- 8194 Nov, [facility] [id number] [place] [address] 38055- 3468 Nov, Leukocytosis D72.829 [facility] [id number] [place] [address] 54237- 4235 Nov, [facility] [id number] [place] [address] 55827- 6084 Nov, Enlarged lymph node R59.9 ; Chronic obstructive pulmonary disease, unspecified COPD type J44.9 ; Low back pain M54.5 ; Neuropathy G62.9 and Closed nondisplaced fracture of sternal end of right clavicle, sequela S42.017S [facility] [id number] [place] [address] 23471- 3002 October, [facility] [id number] [place] [address] 33206- 6249 October, [facility] [id number] [place] [address] 54108- 8516 Sep, [facility] [id number] [place] [address] 53485- 9008 Aug, Double vision H53.2 ; Occipital headache R51 ; Chronic obstructive pulmonary disease, unspecified COPD type J44.9 and Gastroesophageal reflux disease, esophagitis presence not specified K21.9 [facility] [id number] [place] [address] 11223- 4299 Aug, [facility] [id number] [place] [address] 16935- 9548 Jul, Enlarged lymph node in neck R59.0 [facility] [address] [place] [address]- 8628 12 Jul, 2015 [facility] [address] 14096- 2127 10 Jul, 2015 Chronic obstructive pulmonary disease, unspecified COPD type J44.9 ; Tobacco use Z72.0 ; Leukocytosis D72.829 ; Hyperlipidemia E78.5 and Neck abscess L02.11 [place] [place] [address] 05587- 9228 14 Jun, 2015 Shortness of breath R06.02 [facility] [address] 16508- 2592 17 May, 2015 Leukocytosis D72.829 and Shortness of breath R06.02 [facility] [address] 65980- 5450 09 May, 2015 Low back pain M54.5 ; Hyperlipidemia E78.5 ; Leukocytosis D72.829 ; Other osteoarthritis of spine, cervical region M47.892 and Shortness of breath R06.02 [facility] [id number] [place] [address] 43101- 5658 18 Feb, 2015 Chest pain 786.50 ; Tobacco use 305.1 ; Back pain 724.5 and Hyperlipemia 272.4 [facility] [id number] [place] [address] 52641- 3915 Jan, [facility] [address] 02090- 1908 Jan, Chronic low back pain 724.2 and Degenerative arthritis of cervical spine 721.0 [facility] [id number] [place] [address] 97268- 5464 Jan, Chronic low back pain 724.2 and Neck pain 723.1 [facility] [id number] [place] [address] 31236- 0790 Dec, Chronic low back pain 724.2 and Neck pain 723.1 [facility] [address] [place] [address]- 1556 Nov, Chest pain 786.50 ; Dyspnea 786.09 ; Tobacco use 305.1 and Back pain 724.5 [facility] [address] [place] [address] 09126- 8413 Nov, [facility] [address] [place] [address] 43589- 4023 Nov, Disability examination V68.01 and Muscle pain 729.1 [facility] [id number] [place] [address] 93557- 0721 October, History of [place] ([place] infarction) 412 ; Hyperlipidemia LDL goal < 100 272.4 ; Leukocytosis 288.60 and Glucose intolerance (pre-diabetes ) 790.29 [facility] [address] [place] [address] 74147- 7185 October, Chest pain 786.50 ; Chronic low back pain 724.2 ; History of [place] ([place] 412 and Neuropathy 355.9 [facility] [address] [place] [address] 95162- 6607 October, Chronic low back pain 724.2 ; Chest pain 786.50 ; History of [place] ([place]) 412 and Neuropathy 355.9 IMMUNIZATIONS No Known Immunizations SOCIAL HISTORY Never Assessed REASON FOR VISIT Refill request PLAN OF CARE VITAL SIGNS MEDICATIONS Unknown [...]
--- OUTSIDE RECORDS SUMMARY | 2017-11-07 07:28 | XMS REPORT ---
Author Author KINJAL DORIS [facility] Address [address] [place] [address] Care Team Providers Care Tool Room Lathe Operator Name Role Phone DORIS LAYTON Unavailable PROBLEMS Type Condition ICD9-CM Code BGL82-CP Code Onset Dates Condition Status SNOMED Code Problem Tobacco use Z72.0 Active 095646015 Problem Tear of right rotator cuff, unspecified tear extent M75.101 Active 245089978 Problem Enlarged lymph node R59.9 Active 17837526 Problem Nocturnal hypoxia G47.34 Active 101104889 Problem Hiatal hernia K44.9 Active 57926309 Problem Bipolar disorder, unspecified F31.9 Active 94370077 Problem Hyperplastic colonic polyp, unspecified part of colon K63.5 Active 889835154 Problem Other chronic gastritis without hemorrhage K29.50 Active 5096333 Problem Mood disorder F39 Active 38966934 Problem Hyperlipidemia, unspecified hyperlipidemia type E78.5 Active 56379531 Problem Uncontrolled type 2 diabetes mellitus with hyperglycemia, without long -term current use of insulin E11.65 Active 683641309 Problem Non-seasonal allergic rhinitis due to other allergic trigger J30.89 Active 29384468 Problem GERD with esophagitis K21.0 Active 326181766 Problem Other osteoarthritis of spine, cervical region M47.892 Active 930184647 Problem External hemorrhoids K64.4 Active 50211081 Problem Internal hemorrhoids K64.8 Active 72361079 Problem Hyperlipidemia E78.5 Active 18751291 Problem Low back pain M54.5 Active 825109986 Problem History of HI (myocardial infarction) I25.2 Active 077899882 Problem Neuropathy G62.9 Active 758068657 Problem Leukocytosis D72.829 Active 999119887 Problem Chronic obstructive pulmonary disease, unspecified COPD type J44.9 Active 87676819 ALLERGIES No Information ENCOUNTERS Encounter Location Date Diagnosis [facility] [address] [facility] [id number] [address] Aug, [facility] [address] [place] [address] 99553- 2349 Aug, Uncontrolled type 2 diabetes mellitus with hyperglycemia, without long-term current use of insulin E11.65 ; Non-healing surgical wound, initial encounter T81.89XA ; Cellulitis of abdominal wall L03.311 ; Hyperlipidemia E78.5 ; Chronic obstructive pulmonary disease, unspecified COPD type J44.9 and Tobacco use Z72.0 [facility] [id number] [place] [address] 22200- 2373 Aug, [facility] [id number] [place] [address] 82468- 9696 Jul, [facility] [id number] [place] [address] 39602- 6935 Jul, [facility] [id number] [place] [address] 25819- 1441 Jul, Type 2 diabetes mellitus 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, unspecified residential insulin use status E11.40 [facility] [id number] [place] [address] 70652- 9602 Jun, Bipolar disorder, unspecified F31.9 [facility] [id number] [place] [address] 92008- 7316 Jun, [facility] [id number] [place] [address] 68494- 7499 Jun, Bipolar disorder, unspecified F31.9 [facility] [id number] [place] [address] 31853- 5570 Jun, Mood disorder F39 [facility] [id number] [place] [address] 44193- 9067 Jun, [facility] [id number] [place] [address] 63984- 2439 May, Fissure in skin of foot R23.4 ; Callus of foot L84 and Type 2 diabetes mellitus 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, unspecified long chain beamer insulin use status E11.40 [facility] [id number] [place] [address] 20507- 0970 May, Mood disorder F39 [facility] [id number] [place] [address] 22507- 0132 Apr, [facility] [id number] [place] [address] 88467- 9217 Apr, Cough R05 and Tobacco use Z72.0 [facility] [id number] [place] [address] 89969- 7199 Apr, Cough R05 and Tobacco use Z72.0 [facility] [id number] [place] [address] 82931- 7913 Apr, Mood disorder F39 [facility] [id number] [place] [address] 37391- 6806 Apr, Low back pain M54.5 [facility] [id number] [place] [address] 06269- 2967 Apr, Uncontrolled type 2 diabetes mellitus with hyperglycemia, without long-term current use of insulin E11.65 [facility] [address] [place] [address] 31979- 8569 Apr, Uncontrolled type 2 diabetes mellitus with hyperglycemia, without long-term current use of insulin E11.65 [facility] [id number] [place] [address] 98387- 4189 Mar, Bipolar disorder, unspecified F31.9 [facility] [id number] [place] [address] 69699- 5500 Mar, [facility] [id number] [place] [address] 58331- 6840 Mar, Bipolar disorder, unspecified F31.9 [facility] [address] [place] [address] 00012- 9138 Mar, Mood disorder F39 [facility] [address] [id number] [address] Feb, [facility] [id number] [place] [address] 24460- 4038 Feb, [facility] [id number] [place] [address] 85264- 5665 Feb, [facility] [id number] [place] [address] 75108- 4236 Feb, Bipolar disorder, unspecified F31.9 [facility] [id number] [place] [address] 05476- 4318 Feb, Uncontrolled type 2 diabetes mellitus with hyperglycemia, without long-term current use of insulin E11.65 ; Encounter for immunization Z23 ; Vasovagal syncope R55 and Low back pain M54.5 [facility] [id number] [place] [address] 03601- 2332 Jan, Bipolar disorder, unspecified F31.9 [facility] [id number] [place] [address] 08916- 0924 Jan, [facility] [id number] [place] [address] 25009- 8293 Jan, Fatigue, unspecified type R53.83 ; Nocturnal hypoxia G47.34 ; Leukocytosis D72.829 ; Other chronic gastritis without hemorrhage K29.50 ; Uncontrolled type 2 diabetes mellitus with hyperglycemia, without long-term current use of insulin E11.65 ; Alternating constipation and diarrhea R19.8 and Chronic obstructive pulmonary disease, unspecified COPD type J44.9 [facility] [address] [place] [address] 22119- 1274 Jan, [facility] [id number] [place] [address] 50741- 3101 Jan, Leukocytosis D72.829 [facility] [id number] [place] [address] 40389- 2595 Jan, Mood disorder F39 [facility] [address] [place] [address]- 2204 Dec, Bipolar disorder, unspecified F31.9 [facility] [id number] [place] [address] 54216- 5381 Dec, [facility] [address] [address] Dec, Acute gastritis without bleeding K29.00 [facility] [id number] [place] [address] 57615- 6753 Dec, Leukocytosis D72.829 [facility] [id number] [place] [address] 28726- 0968 Dec, [facility] [id number] [place] [address] 86404- 6014 Dec, Dental examination Z01.20 [facility] [id number] [place] [address] 31467- 3844 Dec, [facility] [id number] [place] [address] 08107- 7858 Dec, Leukocytosis D72.829 [facility] [id number] [place] [address] 71258- 3889 Dec, Uncontrolled type 2 diabetes mellitus with hyperglycemia, without long-term current use of insulin E11.65 [facility] [id number] [place] [address] 46173- 0867 Nov, Dental examination Z01.20 [facility] [id number] [place] [address] 32180- 3279 Nov, [facility] [id number] [place] [address] 47666- 9395 Nov, Major depressive disorder, recurrent episode, moderate F33.1 [facility] [id number] [place] [address] 57294- 0238 Nov, Leukocytosis D72.829 [facility] [id number] [place] [address] 28641- 3976 Nov, Mood disorder F39 [facility] [address] [place] [address] 89715- 6557 Nov, Other osteoarthritis of spine, cervical region M47.892 and Uncontrolled type 2 diabetes mellitus with hyperglycemia, without long-term current use of insulin E11.65 [facility] [address] [place] [address] 14014- 0327 Nov, Leukocytosis D72.829 and Elevated serum glucose R73.9 [facility] [id number] [place] [address] 33551- 6624 October, Elevated serum glucose R73.9 [facility] [id number] [place] [address] 65231- 7395 October, Mood disorder F39 [facility] [id number] [place] [address] 61889- 9007 Sep, Major depressive disorder, recurrent episode, moderate F33.1 [facility] [address] [place] [address] 52117- 9577 Sep, Mood disorder F39 [facility] [id number] [place] [address] 79402- 0019 Aug, [facility] [id number] [place] [address] 22236- 6900 Jul, Major depressive disorder, recurrent episode, moderate F33.1 [facility] [id number] [place] [address] 03696- 8466 Jul, Mood disorder F39 [facility] [address] [place] [address] 14982- 3565 Jul, [facility] [address] [place] [address] 60697- 7146 Jul, History of HI (myocardial infarction) I25.2 ; Hyperlipidemia E78.5 ; Prediabetes R73.09 ; Chronic obstructive pulmonary disease, unspecified COPD type J44.9 and Tobacco use Z72.0 [facility] [address] [address]- 2150 Jun, [facility] [id number] [place] [address] 14927- 9804 Jun, Mood disorder F39 [facility] [id number] [place] [address] 25933- 7075 Jun, [facility] [id number] [place] [address] 18177- 1365 May, Major depressive disorder, recurrent episode, moderate F33.1 and Primary insomnia F51.01 [facility] [id number] [place] [address] 78354- 6999 May, Mood disorder F39 [facility] [id number] [place] [address] 27751- 7967 Apr, [facility] [id number] [place] [address] 30867- 2610 Apr, Mood disorder F39 [facility] [id number] [place] [address] 62823- 6649 Apr, [facility] [id number] [place] [address] 87044- 9943 Apr, [facility] [id number] [place] [address] 02053- 0859 Apr, Chronic obstructive pulmonary disease, unspecified COPD type J44.9 and Non-seasonal allergic rhinitis due to other allergic trigger J30.89 [facility] [id number] [place] [address] 52161- 8776 Apr, Mood disorder F39 [facility] [id number] [place] [address] 34421- 3287 Apr, Major depressive disorder, recurrent episode, moderate F33.1 and PTSD (post-traumatic stress disorder) F43.10 [facility] [id number] [place] [address] 84916- 9225 Apr, [facility] [address] [place] [address] 36362- 4983 Apr, [facility] [id number] [place] [address] 80840- 7687 Apr, Chest pain, unspecified type R07.9 ; Chronic obstructive pulmonary disease, unspecified COPD type J44.9 ; Hyperlipidemia, unspecified hyperlipidemia type E78.5 and Tobacco use Z72.0 [facility] [id number] [place] [address] 72983- 3062 Mar, Mood disorder F39 [facility] [id number] [place] [address] 27257- 6473 Mar, Mood disorder F39 [facility] [id number] [place] [address] 74651- 6684 Mar, Other osteoarthritis of spine, cervical region M47.892 [facility] [id number] [place] [address] 94141- 7084 Mar, Tear of right rotator cuff, unspecified tear extent M75.101 [facility] [id number] [place] [address] 86369- 5628 Mar, [facility] [id number] [place] [address] 38970- 1687 Mar, Bipolar II disorder F31.81 [facility] [id number] [place] [address] 71469- 3380 Mar, [facility] [address] [place] [address] 93415- 4497 Feb, Impingement syndrome of right shoulder M75.41 ; Tear of right rotator cuff, unspecified tear extent M75.101 and Loose body in right elbow M24.021 [facility] [address] [place] [address] 51912- 1026 Jan, [facility] [id number] [place] [address] 48389- 2754 Jan, [facility] [id number] [place] [address] 10006- 9975 Jan, Prediabetes R73.09 ; Other chronic pain G89.29 and Pain in right shoulder M25.511 [facility] [address] 09253- 7000 Dec, [facility] [address] 75171- 6794 Dec, Heartburn R12 and Chest discomfort R07.89 [facility] [address] 66543- 0723 Dec, Impingement syndrome of right shoulder M75.41 and 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, 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 [facility] [address] 06472- 5507 Nov, [facility] [id number] [place] [address] 31920- 2172 Nov, Leukocytosis D72.829 [facility] [id number] [place] [address] 38309- 8052 Nov, [facility] [id number] [place] [address] 47972- 0107 Nov, Enlarged lymph node R59.9 ; Chronic obstructive pulmonary disease, unspecified COPD type J44.9 ; Low back pain M54.5 ; Neuropathy G62.9 and Closed nondisplaced fracture of sternal end of right clavicle, sequela S42.017S [facility] [id number] [place] [address] 79386- 8852 October, [facility] [id number] [place] [address] 87700- 7694 October, [facility] [id number] [place] [address] 05716- 4971 Sep, [facility] [id number] [place] [address] 69352- 2391 Aug, Double vision H53.2 ; Occipital headache R51 ; Chronic obstructive pulmonary disease, unspecified COPD type J44.9 and Gastroesophageal reflux disease, esophagitis presence not specified K21.9 [facility] [address] 86240- 4834 Aug, [facility] [address] 72784- 1513 Jul, Enlarged lymph node in neck R59.[address] 74678- 5594 Jul, [facility] [address] 35240- 8996 Jul, Chronic obstructive pulmonary disease, unspecified COPD type J44.9 ; Tobacco use Z72.0 ; Leukocytosis D72.829 ; Hyperlipidemia E78.5 and Neck abscess L02.11 [facility] [address] 81559- 9739 Jun, Shortness of breath R06.02 [facility] [address] 84774- 8659 May, Leukocytosis D72.829 and Shortness of breath R06.02 [facility] [id number] [place] [address] 44446- 5233 May, Low back pain M54.5 ; Hyperlipidemia E78.5 ; Leukocytosis D72.829 ; Other osteoarthritis of spine, cervical region M47.892 and Shortness of breath R06.02 [facility] [address] 19710- 5812 18 Feb, 2015 Chest pain 786.50 ; Tobacco use 305.1 ; Back pain 724.5 and Hyperlipemia 272.[address] 36784- 8673 Jan, [place] [id number] [place] [address] 73545- 6977 Jan, Chronic low back pain 724.2 and Degenerative arthritis of cervical spine 721.[address] 18996- 6641 Jan, Chronic low back pain 724.2 and Neck pain 723.[address] 34033- 4097 Dec, Chronic low back pain 724.2 and Neck pain 723.[address] 11592- 4478 Nov, Chest pain 786.50 ; Dyspnea 786.09 ; Tobacco use 305.1 and Back pain 724.[address] 33071- 5921 Nov, [address] 56574- 0624 Nov, Disability examination V68.01 and Muscle pain 729.[address] 79184- 5826 October, History of HI (myocardial infarction) 412 ; Hyperlipidemia LDL goal < 100 272.4 ; Leukocytosis 288.60 and Glucose intolerance (pre-diabetes ) 790.[address] 91207- 0209 October, Chest pain 786.50 ; Chronic low back pain 724.2 ; History of HI (myocardial infarction) 412 and Neuropathy 355.[address] 84432- 4127 October, Chronic low back pain 724.2 ; Chest pain 786.50 ; History of HI (myocardial infarction) 412 and Neuropathy 355.9 IMMUNIZATIONS No Known Immunizations SOCIAL HISTORY Never Assessed REASON FOR VISIT DM ed PLAN OF CARE VITAL SIGNS MEDICATIONS Medication Instructions Dosage Frequency Start Date End Date Duration Status Blood Glucose Monitor System w/Device DX- E 11.65 2 times a day- 3 times weekly. test blood sugar Nov, Active Blood Glucose Test - and lancets. DX E11.65 2 times a day- 3 times weekly. test blood sugar Nov, Active RESULTS No Results PROCEDURES No Known procedures [...]
--- OUTSIDE RECORDS SUMMARY | 2017-11-07 07:28 | XMS REPORT ---
Author Author KINJAL DORIS [facility] Address [address] [place] [address] Care Team Providers [employer] Name Role Phone DORIS LAYTON Unavailable PROBLEMS Type Condition ICD9-CM Code BXL22-GX Code Onset Dates Condition Status SNOMED Code Problem Tobacco use Z72.0 Active 958760382 Problem Tear of right rotator cuff, unspecified tear extent M75.101 Active 366951262 Problem Enlarged lymph node R59.9 Active 00507553 Problem Nocturnal hypoxia G47.34 Active 298624513 Problem Hiatal hernia K44.9 Active 54135574 Problem Bipolar disorder, unspecified F31.9 Active 08552899 Problem Panlobular emphysema J43.1 Active 0985210 Problem Hyperplastic colonic polyp, unspecified part of colon K63.5 Active 237181265 Problem Mood disorder F39 Active 28036480 Problem Hyperlipidemia, unspecified hyperlipidemia type E78.5 Active 82499212 Problem Uncontrolled type 2 diabetes mellitus with hyperglycemia, without long -term current use of insulin E11.65 Active 738629222 Problem Non-seasonal allergic rhinitis due to other allergic trigger J30.89 Active 21067623 Problem Internal hemorrhoids K64.8 Active 52937095 Problem GERD with esophagitis K21.0 Active 448960276 Problem External hemorrhoids K64.4 Active 36698726 Problem Other chronic gastritis without hemorrhage K29.50 Active 8832113 Problem Low back pain M54.5 Active 182360282 Problem Leukocytosis D72.829 Active 658835599 Problem Other osteoarthritis of spine, cervical region M47.892 Active 058491195 Problem Hyperlipidemia E78.5 Active 64544230 Problem History of [place] (my[place] infarction) I25.2 Active 981537925 Problem Neuropathy G62.9 Active 956313948 ALLERGIES No Information ENCOUNTERS Encounter Location Date Diagnosis [facility] [address] [facility] [id number] [address] Nov, [facility] [address] [address] Nov, [facility] [address] [address] Nov, [facility] [address], [place] [address] Sep, [facility] [id number] [place] [address] 00785- 0614 Sep, [facility] [id number] [place] [address] 59681- 6013 Sep, Leukocytosis D72.829 [facility] [address], [place] [address] Sep, [facility] [id number] [place] [address] 34022- 9152 Sep, [facility] [address], [place] [address] Sep, [facility] [id number] [place] [address] 24852- 1553 Aug, Low back pain M54.5 [facility] [address], [place] [address] Aug, Bipolar disorder, unspecified F31.9 [facility] [address] [address] Aug, [facility] [address], [place] [address] Aug, [facility] [address] [address] Aug, Uncontrolled type 2 diabetes mellitus with hyperglycemia, without long-term current use of insulin E11.65 ; Non-healing surgical wound, initial encounter T81.89XA ; Cellulitis of abdominal wall L03.311 ; Hyperlipidemia E78.5 ; Chronic obstructive pulmonary disease, unspecified COPD type J44.9 and Tobacco use Z72.0 [facility] [id number] [place] [address] 74317- 8963 Aug, [facility] [id number] [place] [address] 53204- 2415 Jul, [facility] [id number] [place] [address] 26892- 9054 Jul, [facility] [id number] [place] [address] 64481- 8089 Jul, Type 2 diabetes mellitus 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, 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 [facility] [id number] [place] [address] 97878- 6256 Jun, Bipolar disorder, unspecified F31.9 [facility] [id number] [place] [address] 91194- 5421 Jun, [facility] [id number] [place] [address] 45733- 3436 Jun, Bipolar disorder, unspecified F31.9 [facility] [id number] [place] [address] 96636- 2972 Jun, Mood disorder F39 [facility] [id number] [place] [address] 29970- 1979 Jun, [facility] [id number] [place] [address] 29439- 5621 May, Fissure in skin of foot R23.4 ; Callus of foot L84 and Type 2 diabetes mellitus 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, unspecified shelter insulin use status E11.40 [facility] [id number] [place] [address] 59433- 3713 May, Mood disorder F39 [facility] [id number] [place] [address] 23991- 4536 Apr, [facility] [id number] [place] [address] 61647- 5727 Apr, Cough R05 and Tobacco use Z72.0 [facility] [id number] [place] [address] 07975- 2249 Apr, Cough R05 and Tobacco use Z72.0 [facility] [id number] [place] [address] 86004- 6473 Apr, Mood disorder F39 [facility] [id number] [place] [address] 85291- 7341 Apr, Low back pain M54.5 [facility] [id number] [place] [address] 44786- 7908 Apr, Uncontrolled type 2 diabetes mellitus with hyperglycemia, without long-term current use of insulin E11.65 [facility] [id number] [place] [address] 15579- 6310 Apr, Uncontrolled type 2 diabetes mellitus with hyperglycemia, without long-term current use of insulin E11.65 [facility] [id number] [place] [address] 36214- 0968 Mar, Bipolar disorder, unspecified F31.9 [facility] [id number] [place] [address] 21896- 5850 Mar, [facility] [id number] [place] [address] 23082- 0911 Mar, Bipolar disorder, unspecified F31.9 [facility] [id number] [place] [address] 55152- 1430 Mar, Mood disorder F39 [facility] [id number] [place] [address] 12541- 1184 Feb, [facility] [id number] [place] [address] 14105- 3877 Feb, [facility] [id number] [place] [address] 54958- 5211 Feb, [facility] [address] 72744- 6524 Feb, Bipolar disorder, unspecified F31.9 [place] [address] 9[address]05- 1914 Feb, Uncontrolled type 2 diabetes mellitus with hyperglycemia, without long-term current use of insulin E11.65 ; Encounter for immunization Z23 ; Vasovagal syncope R55 and Low back pain M54.5 [facility] [address] [address]106- 2301 Jan, Bipolar disorder, unspecified F31.9 [place] [address] 16879- 0660 Jan, [facility] [address] 04633- 4009 Jan, Fatigue, unspecified type R53.83 ; Nocturnal hypoxia G47.34 ; Leukocytosis D72.829 ; Other chronic gastritis without hemorrhage K29.50 ; Uncontrolled type 2 diabetes mellitus with hyperglycemia, without long-term current use of insulin E11.65 ; Alternating constipation and diarrhea R19.8 and Chronic obstructive pulmonary disease, unspecified COPD type J44.9 [place] [facility] [address] 61540- 7928 Jan, [facility] [address] 23337- 1435 Jan, Leukocytosis D72.829 [facility] [address] 14469- 5857 Jan, Mood disorder F39 [facility] [address] 63028- 5817 Dec, Bipolar disorder, unspecified F31.9 [place] [address] 45764- 5794 Dec, [facility] [address] 23829 -8106 Dec, Acute gastritis without bleeding K29.00 [facility] [address] [address] 77[address] 18 Dec, 2016 Leukocytosis D72.829 [facility] [id number] [place] [address] 94656- 8171 Dec, [facility] [id number] [place] [address] 60602- 7000 Dec, Dental examination Z01.20 [facility] [id number] [place] [address] 18620- 7074 Dec, [facility] [id number] [place] [address] 07250- 6198 Dec, Leukocytosis D72.829 [facility] [id number] [place] [address] 62708- 9429 Dec, Uncontrolled type 2 diabetes mellitus with hyperglycemia, without long-term current use of insulin E11.65 [facility] [facility] [id number] [place] [address] 06111- 7120 Nov, Dental examination Z01.20 [facility] [id number] [place] [address] 41563- 6103 Nov, [facility] [id number] [place] [address] 95904- 5679 Nov, Major depressive disorder, recurrent episode, moderate F33.1 [facility] [id number] [place] [address] 19300- 9277 Nov, Leukocytosis D72.829 [facility] [address] [place] [address] 61115- 3261 Nov, Mood disorder F39 [facility] [id number] [place] [address] 10711- 8223 Nov, Other osteoarthritis of spine, cervical region M47.892 and Uncontrolled type 2 diabetes mellitus with hyperglycemia, without long-term current use of insulin E11.65 [facility] [id number] [place] [address] 08197- 2810 Nov, Leukocytosis D72.829 and Elevated serum glucose R73.9 [facility] [id number] [place] [address] 85019- 6462 October, Elevated serum glucose R73.9 [facility] [id number] [place] [address] 68204- 0963 October, Mood disorder F39 [facility] [address] 30275- 4272 Sep, Major depressive disorder, recurrent episode, moderate F33.1 [facility] [id number] [place] [address] 11739- 6878 Sep, Mood disorder F39 [facility] [id number] [place] [address] 41547- 7237 Aug, [facility] [id number] [place] [address] 94724- 6157 Jul, Major depressive disorder, recurrent episode, moderate F33.1 [facility] [id number] [place] [address] 39157- 9794 Jul, Mood disorder F39 [facility] [id number] [place] [address] 14476- 8621 Jul, [facility] [id number] [place] [address] 37308- 5536 Jul, History of [place] (my[place] infarction) I25.2 ; Hyperlipidemia E78.5 ; Prediabetes R73.09 ; Chronic obstructive pulmonary disease, unspecified COPD type J44.9 and Tobacco use Z72.0 [facility] [id number] [place] [address] 35409- 0887 Jun, [facility] [id number] [place] [address] 04475- 0286 Jun, Mood disorder F39 [facility] [id number] [place] [address] 63741- 9971 Jun, [facility] [address] [place] [address] 57985- 6534 May, Major depressive disorder, recurrent episode, moderate F33.1 and Primary insomnia F51.01 [facility] [address], [place] [address]- 3921 May, Mood disorder F39 [facility] [id number] [place] [address] 86318- 0353 Apr, [facility] [address] [place] [address] 02336- 8211 Apr, Mood disorder F39 [facility] [id number] [place] [address] 02575- 1046 Apr, [facility] [address] [place] [address] 55492- 5414 Apr, [facility] [id number] [place] [address] 07787- 3074 Apr, Chronic obstructive pulmonary disease, unspecified COPD type J44.9 and Non-seasonal allergic rhinitis due to other allergic trigger J30.89 [facility] [address] [place] [address] 32849- 7066 Apr, Mood disorder F39 [facility] [address] [place] [address] 41906- 4824 Apr, Major depressive disorder, recurrent episode, moderate F33.1 and PTSD (post-traumatic stress disorder) F43.10 [facility] [address] [address]- 3138 Apr, [facility] [id number] [place] [address] 99059- 3853 07 Apr, 2016 [facility] [address], [place] [address]- 7307 04 Apr, 2016 Chest pain, unspecified type R07.9 ; Chronic obstructive pulmonary disease, unspecified COPD type J44.9 ; Hyperlipidemia, unspecified hyperlipidemia type E78.5 and Tobacco use Z72.0 [facility] [id number] [place] [address] 82046- 2644 Mar, Mood disorder F39 [facility] [id number] [place] [address] 60994- 0233 Mar, Mood disorder F39 [place] [facility] [address] 50208- 6099 Mar, Other osteoarthritis of spine, cervical region M47.892 [facility] [id number] [place] [address] 49108- 4121 Mar, Tear of right rotator cuff, unspecified tear extent M75.101 [facility] [id number] [place] [address] 73076- 4628 Mar, [facility] [address] 14032- 2182 Mar, Bipolar II disorder F31.81 [facility] [id number] [place] [address] 69724- 5238 Mar, [facility] [id number] [place] [address] 67060- 7371 Feb, Impingement syndrome of right shoulder M75.41 ; Tear of right rotator cuff, unspecified tear extent M75.101 and Loose body in right elbow M24.021 [facility] [id number] [place] [address] 34792- 8107 Jan, [facility] [id number] [place] [address] 66286- 6355 Jan, [facility] [id number] [place] [address] 48049- 0202 Jan, Prediabetes R73.09 ; Other chronic pain G89.29 and Pain in right shoulder M25.511 [facility] [id number] [place] [address] 92841- 0701 Dec, [facility] [id number] [place] [address] 17684- 9090 Dec, Heartburn R12 and Chest discomfort R07.89 [facility] [id number] [place] [address] 36612- 9718 Dec, Impingement syndrome of right shoulder M75.41 and 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, 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 [facility] [id number] [place] [address] 74593- 6807 Nov, [facility] [id number] [place] [address] 92122- 3792 Nov, Leukocytosis D72.829 [facility] [id number] [place] [address] 38699- 0006 Nov, [facility] [id number] [place] [address] 93822- 2607 Nov, Enlarged lymph node R59.9 ; Chronic obstructive pulmonary disease, unspecified COPD type J44.9 ; Low back pain M54.5 ; Neuropathy G62.9 and Closed nondisplaced fracture of sternal end of right clavicle, sequela S42.017S [facility] [id number] [place] [address] 35458- 5110 October, [facility] [id number] [place] [address] 58566- 5626 October, [facility] [id number] [place] [address] 24217- 3885 Sep, [facility] [id number] [place] [address] 93016- 6422 Aug, Double vision H53.2 ; Occipital headache R51 ; Chronic obstructive pulmonary disease, unspecified COPD type J44.9 and Gastroesophageal reflux disease, esophagitis presence not specified K21.9 [facility] [id number] [place] [address] 60150- 0049 Aug, [facility] [address] [place] [address] 48836- 6141 Jul, Enlarged lymph node in neck R59.0 [facility] [id number] [place] [address] 37194- 2367 Jul, [facility] [id number] [place] [address] 83958- 2016 Jul, Chronic obstructive pulmonary disease, unspecified COPD type J44.9 ; Tobacco use Z72.0 ; Leukocytosis D72.829 ; Hyperlipidemia E78.5 and Neck abscess L02.11 [place] [id number] [place] [address] 05779- 5356 Jun, Shortness of breath R06.02 [place] [id number] [place] [address] 86085- 8505 17 May, 2015 Leukocytosis D72.829 and Shortness of breath R06.02 [facility] [id number] [place] [address] 63439- 7744 09 May, 2015 Low back pain M54.5 ; Hyperlipidemia E78.5 ; Leukocytosis D72.829 ; Other osteoarthritis of spine, cervical region M47.892 and Shortness of breath R06.02 [place] [id number] [place] [address] 28516- 5147 18 Feb, 2015 Chest pain 786.50 ; Tobacco use 305.1 ; Back pain 724.5 and Hyperlipemia 272.4 [facility] [id number] [place] [address] 41971- 0069 Jan, [address] 15938- 5288 Jan, Chronic low back pain 724.2 and Degenerative arthritis of cervical spine 721.0 [place] [id number] [place] [address] 34471- 3188 Jan, Chronic low back pain 724.2 and Neck pain 723.1 [facility] [address] [place] [address] 60443- 2007 Dec, Chronic low back pain 724.2 and Neck pain 723.1 [facility] [id number] [place] [address] 82707- 2074 Nov, Chest pain 786.50 ; Dyspnea 786.09 ; Tobacco use 305.1 and Back pain 724.[address] 28819- 1824 Nov, [address] 84019- 7001 Nov, Disability examination V68.01 and Muscle pain 729.1 [place] [id number] [place] [address] 15809- 2784 October, History of [place] (my[place] infarction) 412 ; Hyperlipidemia LDL goal < 100 272.4 ; Leukocytosis 288.60 and Glucose intolerance (pre-diabetes ) 790.29 [place] [id number] [place] [address] 51249- 4195 October, Chest pain 786.50 ; Chronic low back pain 724.2 ; History of [place] ([place] 412 and Neuropathy 355.9 [place] [id number] [place] [address] 56259- 2336 October, Chronic low back pain 724.2 ; Chest pain 786.50 ; History of [place] (my[place] infarction) 412 and Neuropathy 355.9 IMMUNIZATIONS No Known Immunizations SOCIAL HISTORY Never Assessed REASON FOR VISIT Refill request PLAN OF CARE VITAL SIGNS MEDICATIONS Medication Instructions Dosage Frequency Start Date End Date Duration Status Metformin HCl 500 mg Orally Twice a day 2 tablet with meals 12h Nov, 90 days Active RESULTS No Results PROCEDURES No Known [...]
--- OUTSIDE RECORDS SUMMARY | 2017-11-07 07:29 | XMS REPORT ---
Author Author KINJAL DORIS [facility] Address [address] [place] [address] Care Team Providers Care Tearer Name Role Phone DORIS LAYTON Unavailable PROBLEMS Type Condition ICD9-CM Code [id number] Code Onset Dates Condition Status SNOMED Code Problem Tobacco use Z72.0 Active 355824773 Problem Tear of right rotator cuff, unspecified tear extent M75.101 Active 827491011 Problem Enlarged lymph node R59.9 Active 72581767 Problem Nocturnal hypoxia G47.34 Active 031039509 Problem Hiatal hernia K44.9 Active 48720443 Problem Bipolar disorder, unspecified F31.9 Active 43407855 Problem Panlobular emphysema J43.1 Active 9961745 Problem Hyperplastic colonic polyp, unspecified part of colon K63.5 Active 545391387 Problem Mood disorder F39 Active 07546442 Problem Hyperlipidemia, unspecified hyperlipidemia type E78.5 Active 98557664 Problem Uncontrolled type 2 diabetes mellitus with hyperglycemia, without long -term current use of insulin E11.65 Active 775233099 Problem Non-seasonal allergic rhinitis due to other allergic trigger J30.89 Active 42796711 Problem Internal hemorrhoids K64.8 Active 59923968 Problem GERD with esophagitis K21.0 Active 664153487 Problem External hemorrhoids K64.4 Active 85313450 Problem Other chronic gastritis without hemorrhage K29.50 Active 0477835 Problem Low back pain M54.5 Active 997385969 Problem Leukocytosis D72.829 Active 388608201 Problem Other osteoarthritis of spine, cervical region M47.892 Active 437961543 Problem Hyperlipidemia E78.5 Active 40920047 Problem History of ME (myocardial infarction) I25.2 Active 735422179 Problem Neuropathy G62.9 Active 498200892 ALLERGIES No Information ENCOUNTERS Encounter Location Date Diagnosis [facility] [address] [facility] [id number] [address] Nov, [facility] [address] [address] Sep, [facility] [address] [place] [id number] [place] [address] 11496- 0666 Sep, [facility] [id number] [place] [address] 26736- 1836 Aug, Low back pain M54.5 [facility] [id number] [place] [address] 74468- 8328 Aug, Bipolar disorder, unspecified F31.9 [facility] [id number] [place] [address] 19810- 8818 Aug, [facility] [id number] [place] [address] 54945- 0719 Aug, [facility] [id number] [place] [address] 86758- 7199 Aug, Uncontrolled type 2 diabetes mellitus with hyperglycemia, without long-term current use of insulin E11.65 ; Non-healing surgical wound, initial encounter T81.89XA ; Cellulitis of abdominal wall L03.311 ; Hyperlipidemia E78.5 ; Chronic obstructive pulmonary disease, unspecified COPD type J44.9 and Tobacco use Z72.0 [facility] [address] [address] Aug, [facility] [address] [address] 36[address] Jul, [facility] [address] [address] Jul, [facility] [id number] [place] [address] 11546- 3881 Jul, Type 2 diabetes mellitus 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, unspecified long winder tender insulin use status E11.40 [facility] [address] [address] 2463 Jun, Bipolar disorder, unspecified F31.9 [facility] [id number] [place] [address] 26293- 3942 Jun, [facility] [id number] [place] [address] 12292- 8208 Jun, Bipolar disorder, unspecified F31.9 [facility] [id number] [place] [address] 30365- 3367 Jun, Mood disorder F39 [facility] [id number] [place] [address] 25605- 9509 Jun, [place] [id number] [place] [address] 06301- 7831 May, Fissure in skin of foot R23.4 ; Callus of foot L84 and Type 2 diabetes mellitus 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, unspecified long winder tender insulin use status E11.40 [place] [id number] [place] [address] 06099- 8469 May, Mood disorder F39 [facility] [id number] [place] [address] 46493- 4959 Apr, [place] [id number] [place] [address] 31469- 5354 Apr, Cough R05 and Tobacco use Z72.0 [place] [id number] [place] [address] 32374- 4040 Apr, Cough R05 and Tobacco use Z72.0 [place] [id number] [place] [address] 09164- 3606 Apr, Mood disorder F39 [place] [id number] [place] [address] 46190- 5347 Apr, Low back pain M54.5 [facility] [id number] [place] [address] 42713- 8978 Apr, Uncontrolled type 2 diabetes mellitus with hyperglycemia, without long-term current use of insulin E11.65 [place] [facility] [id number] [place] [address] 86324- 8745 Apr, Uncontrolled type 2 diabetes mellitus with hyperglycemia, without long-term current use of insulin E11.65 [facility] [id number] [place] [address] 85725- 9076 Mar, Bipolar disorder, unspecified F31.9 [facility] [id number] [place] [address] 90563- 1837 Mar, [facility] [id number] [place] [address] 64113- 1552 Mar, Bipolar disorder, unspecified F31.9 [facility] [id number] [place] [address] 68948- 5071 Mar, Mood disorder F39 [facility] [id number] [place] [address] 11952- 9244 Feb, [facility] [id number] [place] [address] 60597- 0059 Feb, [facility] [id number] [place] [address] 85398- 7856 Feb, [facility] [id number] [place] [address] 92526- 1758 Feb, Bipolar disorder, unspecified F31.9 [facility] [address] [place] [address] 73290- 8170 Feb, Uncontrolled type 2 diabetes mellitus with hyperglycemia, without long-term current use of insulin E11.65 ; Encounter for immunization Z23 ; Vasovagal syncope R55 and Low back pain M54.5 [facility] [id number] [place] [address] 73756- 5676 Jan, Bipolar disorder, unspecified F31.9 [facility] [id number] [place] [address] 28854- 4319 Jan, [facility] [id number] [place] [address] 42286- 0952 Jan, Fatigue, unspecified type R53.83 ; Nocturnal hypoxia G47.34 ; Leukocytosis D72.829 ; Other chronic gastritis without hemorrhage K29.50 ; Uncontrolled type 2 diabetes mellitus with hyperglycemia, without long-term current use of insulin E11.65 ; Alternating constipation and diarrhea R19.8 and Chronic obstructive pulmonary disease, unspecified COPD type J44.9 [place] [address] 49962- 4074 Jan, [place] [address] 90757- 1751 Jan, Leukocytosis D72.829 [place] [address] 24563- 2334 Jan, Mood disorder F39 [place] [address] 06994- 8795 Dec, Bipolar disorder, unspecified F31.9 [place] [address] 40364- 3972 Dec, [facility] [address] 51680 -7071 Dec, Acute gastritis without bleeding K29.00 [place] [address] 22276- 2472 Dec, Leukocytosis D72.829 [place] [address] 89823- 9737 Dec, [place] [id number] [place] [address] 21975- 1337 Dec, Dental examination Z01.20 [place] [address] 93581- 5072 Dec, [place] [address] 87110- 8253 Dec, Leukocytosis D72.829 [place] [address] 03021- 4445 Dec, Uncontrolled type 2 diabetes mellitus with hyperglycemia, without long-term current use of insulin E11.65 [place] [id number] [place] [address] 07646- 5148 Nov, Dental examination Z01.20 [place] [id number] [place] [address] 99322- 9992 Nov, [place] [id number] [place] [address] 75564- 4401 Nov, Major depressive disorder, recurrent episode, moderate F33.1 [place] [id number] [place] [address] 94274- 2295 Nov, Leukocytosis D72.829 [place] [id number] [place] [address] 71015- 9388 Nov, Mood disorder F39 [place] [id number] [place] [address] 08452- 6840 Nov, Other osteoarthritis of spine, cervical region M47.892 and Uncontrolled type 2 diabetes mellitus with hyperglycemia, without long-term current use of insulin E11.65 [place] [address] [place] [address] 97023- 3197 Nov, Leukocytosis D72.829 and Elevated serum glucose R73.9 [place] [id number] [place] [address] 00211- 6555 October, Elevated serum glucose R73.9 [place] [id number] [place] [address] 14639- 4365 October, Mood disorder F39 [place] [id number] [place] [address] 22512- 0994 Sep, Major depressive disorder, recurrent episode, moderate F33.1 [place] [address] [address]- 2529 Sep, Mood disorder F39 [place] [id number] [address]- 7889 Aug, [facility] [address] [address]- 9348 Jul, Major depressive disorder, recurrent episode, moderate F33.1 [facility] [address] [address]- 2155 Jul, Mood disorder F39 [facility] [id number] [address]- 6924 Jul, [facility] [address] [address]- 3278 Jul, History of ME (myocardial infarction) I25.2 ; Hyperlipidemia E78.5 ; Prediabetes R73.09 ; Chronic obstructive pulmonary disease, unspecified COPD type J44.9 and Tobacco use Z72.0 [facility] [address] [address]- 9052 Jun, [facility] [address] [address]- 9781 Jun, Mood disorder F39 [facility] [address] [address]- 9467 Jun, [facility] [address] [address]- 6015 May, Major depressive disorder, recurrent episode, moderate F33.1 and Primary insomnia F51.01 [facility] [address] [address]- 6865 May, Mood disorder F39 [facility] [address] [address]- 0195 Apr, [facility] [address] [address]- 4641 Apr, Mood disorder F39 [facility] [address] [address]- 3395 Apr, [facility] [id number] [place] [address] 64325- 8323 Apr, [facility] [address] 69458- 9952 Apr, Chronic obstructive pulmonary disease, unspecified COPD type J44.9 and Non-seasonal allergic rhinitis due to other allergic trigger J30.89 [place] [address] 79987- 7972 11 Apr, 2016 Mood disorder F39 [place] [address] 20904- 7353 10 Apr, 2016 Major depressive disorder, recurrent episode, moderate F33.1 and PTSD (post-traumatic stress disorder) F43.10 [place] [address] [id number] [place] [address] 00991- 3780 Apr, [place] [address] 25879- 3134 Apr, [place] [id number] [place] [address] 16308- 2735 Apr, Chest pain, unspecified type R07.9 ; Chronic obstructive pulmonary disease, unspecified COPD type J44.9 ; Hyperlipidemia, unspecified hyperlipidemia type E78.5 and Tobacco use Z72.0 [place] [id number] [place] [address] 87854- 3304 Mar, Mood disorder F39 [place] [id number] [place] [address] 20906- 3130 Mar, Mood disorder F39 [place] [id number] [place] [address] 37771- 0831 Mar, Other osteoarthritis of spine, cervical region M47.892 [place] [id number] [place] [address] 77737- 7181 06 Mar, 2016 Tear of right rotator cuff, unspecified tear extent M75.101 [place] [address] [place] [address]- 8719 Mar, [place] [address] [address] [id number] [place] [address] 02071- 3628 Mar, Bipolar II disorder F31.81 [facility] [id number] [place] [address] 04818- 2106 Mar, [place] [address] 60250- 0894 Feb, Impingement syndrome of right shoulder M75.41 ; Tear of right rotator cuff, unspecified tear extent M75.101 and Loose body in right elbow M24.021 [place] [address] 98453- 6350 Jan, [place] [address] 15214- 5065 Jan, [place] [address] 35785- 6872 Jan, Prediabetes R73.09 ; Other chronic pain G89.29 and Pain in right shoulder M25.511 [place] [address] 94897- 2362 Dec, [place] [address] [address] [id number] [place] [address] 69932- 3368 Dec, Heartburn R12 and Chest discomfort R07.89 [place] [address] 84118- 5868 Dec, Impingement syndrome of right shoulder M75.41 and 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, 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 [place] [address] [address] [id number] [place] [address] 35961- 2895 Nov, [place] [address] 07960- 6442 Nov, Leukocytosis D72.829 [place] [address] [place] [address]- 0915 Nov, [place] [address] [address] [id number] [place] [address] 27122- 1704 Nov, Enlarged lymph node R59.9 ; Chronic obstructive pulmonary disease, unspecified COPD type J44.9 ; Low back pain M54.5 ; Neuropathy G62.9 and Closed nondisplaced fracture of sternal end of right clavicle, sequela S42.017S [place] [address] [address] [id number] [place] [address] 72316- 5429 October, [place] [address] 35609- 4307 October, [place] [address] 43435- 5807 Sep, [place] [address] [place] [id number] [place] [address] 51447- 6884 Aug, Double vision H53.2 ; Occipital headache R51 ; Chronic obstructive pulmonary disease, unspecified COPD type J44.9 and Gastroesophageal reflux disease, esophagitis presence not specified K21.9 [place] [address] [address] [id number] [place] [address] 99989- 9703 Aug, [place] [address] [address] [id number] [place] [address] 97512- 4336 Jul, Enlarged lymph node in neck R59.0 [place] [address] [address] [id number] [place] [address] 95608- 4165 Jul, [place] [address] [address] [id number] [place] [address] 86168- 0260 Jul, Chronic obstructive pulmonary disease, unspecified COPD type J44.9 ; Tobacco use Z72.0 ; Leukocytosis D72.829 ; Hyperlipidemia E78.5 and Neck abscess L02.11 [place] [address] [address] [id number] [place] [address] 06264- 0776 Jun, Shortness of breath R06.02 [place] [address] [address] [id number] [place] [address] 46851- 7346 17 May, 2015 Leukocytosis D72.829 and Shortness of breath R06.02 [place] [address] [address] [id number] [place] [address] 88054- 9801 09 May, 2015 Low back pain M54.5 ; Hyperlipidemia E78.5 ; Leukocytosis D72.829 ; Other osteoarthritis of spine, cervical region M47.892 and Shortness of breath R06.02 [place] [address] [address] [id number] [place] [address] 08065- 9346 18 Feb, 2015 Chest pain 786.50 ; Tobacco use 305.1 ; Back pain 724.5 and Hyperlipemia 272.4 [place] [address] [address] [id number] [place] [address] 62855- 6459 Jan, [place] [address] 58517- 2698 Jan, Chronic low back pain 724.2 and Degenerative arthritis of cervical spine 721.0 [place] [address] [address] [id number] [place] [address] 22300- 4932 Jan, Chronic low back pain 724.2 and Neck pain 723.1 [place] [address] [address] [id number] [place] [address] 50058- 1545 Dec, Chronic low back pain 724.2 and Neck pain 723.1 [place] [address] [address] [id number] [place] [address] 15066- 0371 Nov, Chest pain 786.50 ; Dyspnea 786.09 ; Tobacco use 305.1 and Back pain 724.5 [place] [address] 85782- 2027 Nov, [place] [address] [address] [id number] [place] [address] 73231- 1461 04 Nov, 2014 Disability examination V68.01 and Muscle pain 729.1 [place] [address] [place] [address]- 5273 October, History of ME (myocardial infarction) 412 ; Hyperlipidemia LDL goal < 100 272.4 ; Leukocytosis 288.60 and Glucose intolerance (pre-diabetes ) 790.29 [facility] [address] [facility] [id number] [place] [address]- 4746 18 Oct, 2014 Chest pain 786.50 ; Chronic low back pain 724.2 ; History of ME (myocardial infarction) 412 and Neuropathy 355.9 [facility] [address] [facility] [id number] [address]- 4746 12 Oct, 2014 Chronic low back pain 724.2 ; Chest pain 786.50 ; History of ME (myocardial infarction) 412 and Neuropathy 355.9 IMMUNIZATIONS No Known Immunizations SOCIAL HISTORY Never Assessed REASON FOR VISIT Lab (walk-in) PLAN OF CARE VITAL SIGNS MEDICATIONS Unknown Medications RESULTS Name Result Date Reference Range CBC w/ MANUAL DIFF 2017-01-09 WBC 10.4 3.4-10.8 RBC 5.09 4.14-5.80 Hemoglobin 15.2 12.6-17.7 Hematocrit 44.0 37.5-51.0 MCV 86 79-97 MCH 29.9 26.6-33.0 MCHC 34.5 31.5-35.7 RDW 13.0 12.3-15.4 Platelets 409 150-379 Neutrophils 69 Lymphs 22 Monocytes 8 Eos 1 Basos 0 Neutrophils Absolute 7.2 1.4-7.0 Lymphs (Absolute) 2.3 0.7-3.1 Monocytes(Absolute) 0.8 0.1-0.9 Eos (Absolute Value) 0.1 0.0-0.4 Baso(Absolute) 0.0 0.0-0.2 Differential Comment Note: RBC Comment Note: Normal Platelet Comment Note: Adequate PROCEDURES Procedure Date Ordered Result Body Site LAB NOT BILLED BY [facility] Jan 09, 2017 VENIPGAYLE, ROUTINE* Jan 09, 2017 INSTRUCTIONS MEDICATIONS ADMINISTERED No Known Medications [...]
--- OUTSIDE RECORDS SUMMARY | 2017-11-07 07:29 | XMS REPORT ---
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 Name Role Phone DORIS LAYTON Unavailable PROBLEMS Type Condition ICD9-CM Code OJI09-LD Code Onset Dates Condition Status SNOMED Code Problem Tobacco use Z72.0 Active 504158982 Problem Tear of right rotator cuff, unspecified tear extent M75.101 Active 847791933 Problem Enlarged lymph node R59.9 Active 78173819 Problem Nocturnal hypoxia G47.34 Active 109315372 Problem Hiatal hernia K44.9 Active 10529151 Problem Bipolar disorder, unspecified F31.9 Active 76585090 Problem Panlobular emphysema J43.1 Active 5231451 Problem Hyperplastic colonic polyp, unspecified part of colon K63.5 Active 180058238 Problem Mood disorder F39 Active 91212950 Problem Hyperlipidemia, unspecified hyperlipidemia type E78.5 Active 32490156 Problem Uncontrolled type 2 diabetes mellitus with hyperglycemia, without long -term current use of insulin E11.65 Active 489529865 Problem Non-seasonal allergic rhinitis due to other allergic trigger J30.89 Active 35291797 Problem Internal hemorrhoids K64.8 Active 10375698 Problem GERD with esophagitis K21.0 Active 061153487 Problem External hemorrhoids K64.4 Active 68706331 Problem Other chronic gastritis without hemorrhage K29.50 Active 3259627 Problem Low back pain M54.5 Active 366560030 Problem Leukocytosis D72.829 Active 716310959 Problem Other osteoarthritis of spine, cervical region M47.892 Active 116559948 Problem Hyperlipidemia E78.5 Active 29983967 Problem History of [place] (myocardial infarction) I25.2 Active 778224634 Problem Neuropathy G62.9 Active 795042779 ALLERGIES No Information ENCOUNTERS Encounter Location Date Diagnosis [facility] [address] [facility] [id number] [address] Nov, [facility] [address] [address] Nov, [facility] [address], [place] [address] 8965 Nov, [facility] [address], [place] [address] 67[address] Sep, [facility] [address] [place] [id number] [place] [address] 76751- 1082 Sep, [facility] [id number] [place] [address] 15888- 4565 Sep, Leukocytosis D72.829 [facility] [address], [place] [address] 8426 Sep, [facility] [id number] [place] [address] 56724- 9692 Sep, [facility] [address] [address] 8298 Sep, [facility] [id number] [place] [address] 47258- 3893 Aug, Low back pain M54.5 [facility] [address], [place] [address] Aug, Bipolar disorder, unspecified F31.9 [facility] [address], [place] [address] 1507 Aug, [facility] [address] [address] 7925 Aug, [facility] [address], [place] [address] 8008 Aug, Uncontrolled type 2 diabetes mellitus with hyperglycemia, without long-term current use of insulin E11.65 ; Non-healing surgical wound, initial encounter T81.89XA ; Cellulitis of abdominal wall L03.311 ; Hyperlipidemia E78.5 ; Chronic obstructive pulmonary disease, unspecified COPD type J44.9 and Tobacco use Z72.0 [facility] [id number] [place] [address] 34117- 0900 Aug, [facility] [id number] [place] [address] 24283- 4230 Jul, [facility] [id number] [place] [address] 82289- 1405 Jul, [facility] [id number] [place] [address] 11404- 1235 Jul, Type 2 diabetes mellitus 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, 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 [facility] [id number] [place] [address] 74816- 3599 Jun, Bipolar disorder, unspecified F31.9 [facility] [place] [id number] [place] [address] 51141- 9028 Jun, [facility] [id number] [place] [address] 59764- 3616 Jun, Bipolar disorder, unspecified F31.9 [place] [id number] [place] [address] 89576- 9746 Jun, Mood disorder F39 [place] [id number] [place] [address] 32862- 0999 Jun, [facility] [id number] [place] [address] 12307- 0575 May, Fissure in skin of foot R23.4 ; Callus of foot L84 and Type 2 diabetes mellitus 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, unspecified prison insulin use status E11.40 [facility] [id number] [place] [address] 29354- 3898 May, Mood disorder F39 [facility] [id number] [place] [address] 55899- 1500 Apr, [facility] [id number] [place] [address] 21423- 7093 Apr, Cough R05 and Tobacco use Z72.0 [facility] [id number] [place] [address] 66887- 9670 Apr, Cough R05 and Tobacco use Z72.0 [facility] [id number] [place] [address] 50201- 3814 Apr, Mood disorder F39 [facility] [id number] [place] [address] 77861- 6475 Apr, Low back pain M54.5 [facility] [id number] [place] [address] 15760- 2234 Apr, Uncontrolled type 2 diabetes mellitus with hyperglycemia, without long-term current use of insulin E11.65 [place] [id number] [place] [address] 56448- 7612 Apr, Uncontrolled type 2 diabetes mellitus with hyperglycemia, without long-term current use of insulin E11.65 [facility] [id number] [place] [address] 21777- 8443 Mar, Bipolar disorder, unspecified F31.9 [facility] [id number] [place] [address] 32933- 5206 Mar, [facility] [id number] [place] [address] 52651- 8676 Mar, Bipolar disorder, unspecified F31.9 [facility] [id number] [place] [address] 29318- 7815 Mar, Mood disorder F39 [facility] [id number] [place] [address] 24842- 1133 Feb, [facility] [address] [id number] [place] [address] 92225- 9349 Feb, [facility] [id number] [place] [address] 43568- 6836 Feb, [facility] [address] 26[address]- 2283 Feb, Bipolar disorder, unspecified F31.9 [place] [address] 64831- 2571 Feb, Uncontrolled type 2 diabetes mellitus with hyperglycemia, without long-term current use of insulin E11.65 ; Encounter for immunization Z23 ; Vasovagal syncope R55 and Low back pain M54.5 [place] [address] 24069- 4561 Jan, Bipolar disorder, unspecified F31.9 [place] [address] 25792- 5529 Jan, [place] [address] 98053- 5539 Jan, Fatigue, unspecified type R53.83 ; Nocturnal hypoxia G47.34 ; Leukocytosis D72.829 ; Other chronic gastritis without hemorrhage K29.50 ; Uncontrolled type 2 diabetes mellitus with hyperglycemia, without long-term current use of insulin E11.65 ; Alternating constipation and diarrhea R19.8 and Chronic obstructive pulmonary disease, unspecified COPD type J44.9 [place] [address] 71923- 2368 Jan, [place] [address] 78129- 0341 Jan, Leukocytosis D72.829 [place] [address] 92354- 3446 Jan, Mood disorder F39 [place] [address] 37954- 1777 Dec, Bipolar disorder, unspecified F31.9 [place] [address] 15417- 9225 Dec, [facility] [address] 23920 -4663 Dec, Acute gastritis without bleeding K29.00 [facility] [address], [place] [address] 1668 18 Dec, 2016 Leukocytosis D72.829 [place] [id number] [place] [address] 71072- 1628 Dec, [place] [address] [id number] [place] [address] 33222- 0794 Dec, Dental examination Z01.20 [facility] [id number] [place] [address] 89645- 4151 Dec, [place] [id number] [place] [address] 55817- 5297 Dec, Leukocytosis D72.829 [place] [address] [id number] [place] [address] 03209- 4318 Dec, Uncontrolled type 2 diabetes mellitus with hyperglycemia, without long-term current use of insulin E11.65 [place] [id number] [place] [address] 44320- 7377 Nov, Dental examination Z01.20 [place] [address] [id number] [place] [address] 85917- 3363 Nov, [place] [address] [id number] [place] [address] 46995- 8294 Nov, Major depressive disorder, recurrent episode, moderate F33.1 [place] [id number] [place] [address] 41010- 4504 Nov, Leukocytosis D72.829 [place] [id number] [place] [address] 93270- 4688 Nov, Mood disorder F39 [place] [id number] [place] [address] 60292- 9525 Nov, Other osteoarthritis of spine, cervical region M47.892 and Uncontrolled type 2 diabetes mellitus with hyperglycemia, without long-term current use of insulin E11.65 [place] [id number] [place] [address] 54555- 4723 Nov, Leukocytosis D72.829 and Elevated serum glucose R73.9 [facility] [id number] [place] [address] 44879- 4383 October, Elevated serum glucose R73.9 [facility] [id number] [place] [address] 94632- 7396 October, Mood disorder F39 [facility] [address] 61567- 6835 Sep, Major depressive disorder, recurrent episode, moderate F33.1 [place] [id number] [place] [address] 20447- 0486 Sep, Mood disorder F39 [facility] [id number] [place] [address] 77366- 8962 Aug, [facility] [id number] [place] [address] 09160- 5362 Jul, Major depressive disorder, recurrent episode, moderate F33.1 [facility] [id number] [place] [address] 98046- 5835 Jul, Mood disorder F39 [facility] [id number] [place] [address] 54489- 5901 Jul, [facility] [id number] [place] [address] 94907- 4459 Jul, History of FL (myocardial infarction) I25.2 ; Hyperlipidemia E78.5 ; Prediabetes R73.09 ; Chronic obstructive pulmonary disease, unspecified COPD type J44.9 and Tobacco use Z72.0 [facility] [id number] [place] [address] 86654- 4579 Jun, [facility] [id number] [place] [address] 30315- 3849 Jun, Mood disorder F39 [facility] [id number] [place] [address] 65193- 5485 Jun, [facility] [id number] [place] [address] 31125- 9780 May, Major depressive disorder, recurrent episode, moderate F33.1 and Primary insomnia F51.01 [facility] [address], [place] [address]- 1181 May, Mood disorder F39 [facility] [id number] [place] [address] 92248- 3544 Apr, [facility] [id number] [place] [address] 70619- 6765 Apr, Mood disorder F39 [facility] [id number] [place] [address] 31517- 1432 Apr, [facility] [id number] [place] [address] 97446- 0031 Apr, [facility] [id number] [place] [address] 70643- 6217 Apr, Chronic obstructive pulmonary disease, unspecified COPD type J44.9 and Non-seasonal allergic rhinitis due to other allergic trigger J30.89 [facility] [address] [place] [address] 37206- 8652 Apr, Mood disorder F39 [facility] [address] [place] [address] 93051- 1969 Apr, Major depressive disorder, recurrent episode, moderate F33.1 and PTSD (post-traumatic stress disorder) F43.10 [facility] [address], [place] [address]- 7245 Apr, [facility] [id number] [place] [address] 97727- 8950 07 Apr, 2016 [facility] [address], [place] [address]- 9319 04 Apr, 2016 Chest pain, unspecified type R07.9 ; Chronic obstructive pulmonary disease, unspecified COPD type J44.9 ; Hyperlipidemia, unspecified hyperlipidemia type E78.5 and Tobacco use Z72.0 [place] [id number] [place] [address] 32650- 3338 Mar, Mood disorder F39 [facility] [id number] [place] [address] 76018- 2939 Mar, Mood disorder F39 [place] [address] 31188- 2453 Mar, Other osteoarthritis of spine, cervical region M47.892 [place] [id number] [place] [address] 23988- 4346 Mar, Tear of right rotator cuff, unspecified tear extent M75.101 [place] [address] [id number] [place] [address] 14026- 5785 Mar, [place] [address] 72653- 2769 Mar, Bipolar II disorder F31.81 [place] [id number] [place] [address] 54994- 7537 Mar, [place] [id number] [place] [address] 09485- 1942 Feb, Impingement syndrome of right shoulder M75.41 ; Tear of right rotator cuff, unspecified tear extent M75.101 and Loose body in right elbow M24.021 [place] [id number] [place] [address] 85299- 8266 Jan, [place] [id number] [place] [address] 04957- 2138 Jan, [place] [id number] [place] [address] 70775- 3636 Jan, Prediabetes R73.09 ; Other chronic pain G89.29 and Pain in right shoulder M25.511 [place] [id number] [place] [address] 31054- 7397 Dec, [place] [id number] [place] [address] 62137- 7287 Dec, Heartburn R12 and Chest discomfort R07.89 [place] [id number] [place] [address] 93731- 0894 Dec, Impingement syndrome of right shoulder M75.41 and 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, 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 [place] [id number] [place] [address] 47986- 3000 Nov, [place] [id number] [place] [address] 17372- 3295 Nov, Leukocytosis D72.829 [place] [id number] [place] [address] 86557- 1853 Nov, [place] [address] [id number] [place] [address] 50290- 2055 Nov, Enlarged lymph node R59.9 ; Chronic obstructive pulmonary disease, unspecified COPD type J44.9 ; Low back pain M54.5 ; Neuropathy G62.9 and Closed nondisplaced fracture of sternal end of right clavicle, sequela S42.017S [place] [id number] [place] [address] 85969- 5802 October, [place] [id number] [place] [address] 99927- 0586 October, [place] [id number] [place] [address] 52725- 9473 Sep, [place] [id number] [place] [address] 08125- 7796 Aug, Double vision H53.2 ; Occipital headache R51 ; Chronic obstructive pulmonary disease, unspecified COPD type J44.9 and Gastroesophageal reflux disease, esophagitis presence not specified K21.9 [place] [id number] [place] [address] 97672- 2308 Aug, [place] [address] [place] [address] 43187- 4697 Jul, Enlarged lymph node in neck R59.0 [place] [id number] [place] [address] 75251- 3462 Jul, [place] [id number] [place] [address] 12272- 3485 Jul, Chronic obstructive pulmonary disease, unspecified COPD type J44.9 ; Tobacco use Z72.0 ; Leukocytosis D72.829 ; Hyperlipidemia E78.5 and Neck abscess L02.11 [place] [id number] [place] [address] 17593- 4608 Jun, Shortness of breath R06.02 [place] [id number] [place] [address] 31860- 2454 17 May, 2015 Leukocytosis D72.829 and Shortness of breath R06.02 [place] [id number] [place] [address] 95207- 4948 09 May, 2015 Low back pain M54.5 ; Hyperlipidemia E78.5 ; Leukocytosis D72.829 ; Other osteoarthritis of spine, cervical region M47.892 and Shortness of breath R06.02 [place] [id number] [place] [address] 96955- 0251 18 Feb, 2015 Chest pain 786.50 ; Tobacco use 305.1 ; Back pain 724.5 and Hyperlipemia 272.4 [place] [id number] [place] [address] 47925- 0535 Jan, [address] 98100- 9240 Jan, Chronic low back pain 724.2 and Degenerative arthritis of cervical spine 721.0 [place] [id number] [place] [address] 46057- 1822 Jan, Chronic low back pain 724.2 and Neck pain 723.1 [place] [id number] [place] [address] 67227- 0958 Dec, Chronic low back pain 724.2 and Neck pain 723.1 [place] [id number] [place] [address] 25463- 4098 Nov, Chest pain 786.50 ; Dyspnea 786.09 ; Tobacco use 305.1 and Back pain 724.[address] 30375- 8590 Nov, [address] 71351- 3788 Nov, Disability examination V68.01 and Muscle pain 729.1 [place] [id number] [place] [address] 99041- 9580 October, History of [place] (myocardial infarction) 412 ; Hyperlipidemia LDL goal < 100 272.4 ; Leukocytosis 288.60 and Glucose intolerance (pre-diabetes ) 790.29 [place] [id number] [place] [address] 62698- 9712 October, Chest pain 786.50 ; Chronic low back pain 724.2 ; History of [place] (myocardial infarction) 412 and Neuropathy 355.9 [place] [id number] [place] [address] 35012- 6889 October, Chronic low back pain 724.2 ; Chest pain 786.50 ; History of [place] (myocardial infarction) 412 and Neuropathy 355.9 IMMUNIZATIONS No Known Immunizations SOCIAL HISTORY Never Assessed REASON FOR VISIT Refill Request PLAN OF CARE VITAL SIGNS MEDICATIONS Medication [...]
--- OUTSIDE RECORDS SUMMARY | 2017-11-07 07:30 | XMS REPORT ---
Author Author SHEYLA MARLIN Organization [facility] Address [address] [place] [address] Care Team Providers Care Upper Trimmer Name Role Phone LINDSEYMARLIN GRIMES Unavailable PROBLEMS Type Condition ICD9-CM Code HHX86-PF Code Onset Dates Condition Status SNOMED Code Problem Tobacco use Z72.0 Active 450927541 Problem Tear of right rotator cuff, unspecified tear extent M75.101 Active 937755086 Problem Enlarged lymph node R59.9 Active 27151562 Problem Nocturnal hypoxia G47.34 Active 576718346 Problem Hiatal hernia K44.9 Active 96650780 Problem Bipolar disorder, unspecified F31.9 Active 42367715 Problem Panlobular emphysema J43.1 Active 8989337 Problem Hyperplastic colonic polyp, unspecified part of colon K63.5 Active 473010514 Problem Mood disorder F39 Active 24387594 Problem Hyperlipidemia, unspecified hyperlipidemia type E78.5 Active 19256102 Problem Uncontrolled type 2 diabetes mellitus with hyperglycemia, without long -term current use of insulin E11.65 Active 962913452 Problem Non-seasonal allergic rhinitis due to other allergic trigger J30.89 Active 12932955 Problem Internal hemorrhoids K64.8 Active 59961533 Problem GERD with esophagitis K21.0 Active 113045549 Problem External hemorrhoids K64.4 Active 02834203 Problem Other chronic gastritis without hemorrhage K29.50 Active 8408304 Problem Low back pain M54.5 Active 526097737 Problem Leukocytosis D72.829 Active 779310544 Problem Other osteoarthritis of spine, cervical region M47.892 Active 149626635 Problem Hyperlipidemia E78.5 Active 41100846 Problem History of FL (myocardial infarction) I25.2 Active 603601217 Problem Neuropathy G62.9 Active 099129610 ALLERGIES Substance Reaction Event Type Date Status Incruse Ellipta Unknown Drug Allergy Jan, Active Tetracycline HCl nausea and vomiting Drug Allergy Jan, Active Spiriva HandiHaler Suicidal ideation Drug Allergy Jan, Active Ampicillin anaphylaxis Drug Allergy Jan, Active strawberries Unknown Non Drug Allergy Jan, Active penicillin anaphylaxis Non Drug Allergy Jan, Active ENCOUNTERS Encounter Location Date Diagnosis [facility] [id number] [place] [address] 92624- 7736 Nov, [facility] [id number] [place] [address] 87210- 0389 Sep, [facility] [id number] [place] [address] 90614- 7434 Sep, Leukocytosis D72.829 [place] [id number] [place] [address] 22781- 6081 Sep, [facility] [id number] [place] [address] 80460- 4224 Sep, [facility] [id number] [place] [address] 74291- 1592 Sep, [facility] [id number] [place] [address] 41728- 1617 Aug, Low back pain M54.5 [place] [id number] [place] [address] 61406- 1264 Aug, Bipolar disorder, unspecified F31.9 [facility] [id number] [place] [address] 52708- 4211 Aug, [facility] [id number] [place] [address] 29865- 2458 Aug, [facility] [id number] [place] [address] 95909- 5527 Aug, Uncontrolled type 2 diabetes mellitus with hyperglycemia, without long-term current use of insulin E11.65 ; Non-healing surgical wound, initial encounter T81.89XA ; Cellulitis of abdominal wall L03.311 ; Hyperlipidemia E78.5 ; Chronic obstructive pulmonary disease, unspecified COPD type J44.9 and Tobacco use Z72.0 [place] [address] [address] 6[address] Aug, [facility] [address] [address] Jul, [facility] [id number] [address] 1152 Jul, [facility] [id number] [place] [address] 547718- 7514 Jul, Type 2 diabetes mellitus 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, unspecified 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.40 [facility] [address] [address] 8[address] Jun, Bipolar disorder, unspecified F31.9 [facility] [address] [address] 04[address] Jun, [facility] [id number] [place] [address] 74174- 6755 Jun, Bipolar disorder, unspecified F31.9 [facility] [address] [address] 5009 Jun, Mood disorder F39 [facility] [address] [address]- 7871 Jun, [facility] [address] [place] [address] 4696 May, Fissure in skin of foot R23.4 ; Callus of foot L84 and Type 2 diabetes mellitus 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, unspecified assisted insulin use status E11.40 [facility] [address] [address] 1535 May, Mood disorder F39 [facility] [address] [address] 2963 Apr, [facility] [address] [address]- 4274 Apr, Cough R05 and Tobacco use Z72.0 [place] [id number] [place] [address] 60594- 3514 Apr, Cough R05 and Tobacco use Z72.0 [facility] [id number] [place] [address] 66787- 9264 Apr, Mood disorder F39 [place] [id number] [place] [address] 66379- 6221 Apr, Low back pain M54.5 [place] [id number] [place] [address] 51226- 2515 Apr, Uncontrolled type 2 diabetes mellitus with hyperglycemia, without long-term current use of insulin E11.65 [place] [id number] [place] [address] 19381- 0216 Apr, Uncontrolled type 2 diabetes mellitus with hyperglycemia, without long-term current use of insulin E11.65 [place] [id number] [place] [address] 11702- 9439 Mar, Bipolar disorder, unspecified F31.9 [place] [id number] [place] [address] 82446- 4791 Mar, [place] [id number] [place] [address] 81344- 3627 Mar, Bipolar disorder, unspecified F31.9 [place] [id number] [place] [address] 27193- 4375 Mar, Mood disorder F39 [facility] [id number] [place] [address] 96708- 9346 Feb, [place] [id number] [place] [address] 49773- 1555 Feb, [facility] [id number] [place] [address] 60677- 1813 Feb, [place] [id number] [place] [address] 46561- 0083 Feb, Bipolar disorder, unspecified F31.9 [facility] [id number] [place] [address] 84127- 9560 Feb, Uncontrolled type 2 diabetes mellitus with hyperglycemia, without long-term current use of insulin E11.65 ; Encounter for immunization Z23 ; Vasovagal syncope R55 and Low back pain M54.5 [place] [address] 54872- 7555 Jan, Bipolar disorder, unspecified F31.9 [place] [address] 04621- 0042 Jan, [place] [address] 49110- 2626 Jan, Fatigue, unspecified type R53.83 ; Nocturnal hypoxia G47.34 ; Leukocytosis D72.829 ; Other chronic gastritis without hemorrhage K29.50 ; Uncontrolled type 2 diabetes mellitus with hyperglycemia, without long-term current use of insulin E11.65 ; Alternating constipation and diarrhea R19.8 and Chronic obstructive pulmonary disease, unspecified COPD type J44.9 [facility] [address] 29178- 3021 Jan, [place] [address] 43431- 3795 Jan, Leukocytosis D72.829 [place] [id number] [place] [address] 10474- 7525 Jan, Mood disorder F39 [facility] [id number] [place] [address] 52536- 2859 Dec, Bipolar disorder, unspecified F31.9 [place] [address] 75655- 2574 Dec, [facility] [id number] [place] [address] 42038 -7402 Dec, Acute gastritis without bleeding K29.00 [place] [address] 36119- 8563 Dec, Leukocytosis D72.829 [place] [address], [place] [address]- 7310 Dec, [facility] [address] [address] Dec, Dental examination Z01.20 [place] [address], [place] [address]- 5909 Dec, [place] [address], [place] [address]- 4567 Dec, Leukocytosis D72.829 [place] [address] [place] [address] 28666- 1763 Dec, Uncontrolled type 2 diabetes mellitus with hyperglycemia, without long-term current use of insulin E11.65 [place] [address] [place] [address] 42443- 5012 Nov, Dental examination Z01.20 [place] [address], [place] [address]- 2777 Nov, [place] [id number] [place] [address] 10951- 1277 Nov, Major depressive disorder, recurrent episode, moderate F33.1 [place] [address], [place] [address]- 2035 Nov, Leukocytosis D72.829 [place] [address], [place] [address]- 3936 Nov, Mood disorder F39 [place] [address], [place] [address]- 2605 Nov, Other osteoarthritis of spine, cervical region M47.892 and Uncontrolled type 2 diabetes mellitus with hyperglycemia, without long-term current use of insulin E11.65 [place] [id number] [address]- 6023 Nov, Leukocytosis D72.829 and Elevated serum glucose R73.9 [facility] [address], [place] [address]- 8768 October, Elevated serum glucose R73.9 [facility] [address], [place] [address]- 1756 October, Mood disorder F39 [facility] [id number] [place] [address] 74441- 5154 Sep, Major depressive disorder, recurrent episode, moderate F33.1 [facility] [address], [place] [address]- 7108 Sep, Mood disorder F39 [facility] [id number] [place] [address] 20197- 1286 Aug, [facility] [address], [place] [address]- 2595 Jul, Major depressive disorder, recurrent episode, moderate F33.1 [facility] [address], [place] [address]- 1338 Jul, Mood disorder F39 [facility] [address], [place] [address]- 9641 Jul, [facility] [address], [place] [address]- 6241 Jul, History of FL (myocardial infarction) I25.2 ; Hyperlipidemia E78.5 ; Prediabetes R73.09 ; Chronic obstructive pulmonary disease, unspecified COPD type J44.9 and Tobacco use Z72.0 [facility] [address], [place] [address]- 1150 Jun, [facility] [id number] [place] [address] 86539- 9160 Jun, Mood disorder F39 [facility] [address], [place] [address]- 7355 Jun, [facility] [address], [place] [address]- 3634 May, Major depressive disorder, recurrent episode, moderate F33.1 and Primary insomnia F51.01 [facility] [id number] [place] [address] 16218- 0097 May, Mood disorder F39 [facility] [id number] [place] [address] 56899- 8553 Apr, [facility] [id number] [place] [address] 77422- 7386 Apr, Mood disorder F39 [facility] [id number] [place] [address] 89369- 1961 Apr, [facility] [id number] [place] [address] 94021- 0981 Apr, [facility] [id number] [place] [address] 89797- 5589 Apr, Chronic obstructive pulmonary disease, unspecified COPD type J44.9 and Non-seasonal allergic rhinitis due to other allergic trigger J30.89 [facility] [id number] [place] [address] 17214- 0297 Apr, Mood disorder F39 [facility] [id number] [place] [address] 12075- 2249 10 Apr, 2016 Major depressive disorder, recurrent episode, moderate F33.1 and PTSD (post-traumatic stress disorder) F43.10 [facility] [address], [place] [address]- 6868 Apr, [facility] [id number] [place] [address] 43131- 8796 Apr, [facility] [id number] [place] [address] 77736- 0606 04 Apr, 2016 Chest pain, unspecified type R07.9 ; Chronic obstructive pulmonary disease, unspecified COPD type J44.9 ; Hyperlipidemia, unspecified hyperlipidemia type E78.5 and Tobacco use Z72.0 [facility] [address], [place] [address]- 0731 Mar, Mood disorder F39 [facility] [id number] [place] [address] 51529- 0356 Mar, Mood disorder F39 [facility] [id number] [place] [address] 95871- 4103 Mar, Other osteoarthritis of spine, cervical region M47.892 [facility] [id number] [place] [address] 73168- 5227 Mar, Tear of right rotator cuff, unspecified tear extent M75.101 [place] [id number] [place] [address] 14506- 7202 Mar, [place] [id number] [place] [address] 64134- 8492 Mar, Bipolar II disorder F31.81 [facility] [id number] [place] [address] 00842- 2024 Mar, [facility] [id number] [place] [address] 92874- 5478 Feb, Impingement syndrome of right shoulder M75.41 ; Tear of right rotator cuff, unspecified tear extent M75.101 and Loose body in right elbow M24.021 [facility] [id number] [place] [address] 50328- 4235 Jan, [facility] [id number] [place] [address] 04371- 2888 Jan, [facility] [id number] [place] [address] 43069- 5879 Jan, Prediabetes R73.09 ; Other chronic pain G89.29 and Pain in right shoulder M25.511 [facility] [id number] [place] [address] 30920- 5562 Dec, [facility] [address] [place] [address]- 0668 Dec, Heartburn R12 and Chest discomfort R07.89 [place] [address] 60704- 7860 Dec, Impingement syndrome of right shoulder M75.41 and 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, 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 [place] [address] 16827- 6862 Nov, [place] [address] 65627- 1256 Nov, Leukocytosis D72.829 [place] [address] 49085- 6288 Nov, [place] [address] 61722- 8012 Nov, Enlarged lymph node R59.9 ; Chronic obstructive pulmonary disease, unspecified COPD type J44.9 ; Low back pain M54.5 ; Neuropathy G62.9 and Closed nondisplaced fracture of sternal end of right clavicle, sequela S42.017S [place] [address] 38917- 9250 October, [place] [address] 42444- 3899 October, [place] [address] 53778- 7133 Sep, [place] [id number] [place] [address] 16162- 5950 Aug, Double vision H53.2 ; Occipital headache R51 ; Chronic obstructive pulmonary disease, unspecified COPD type J44.9 and Gastroesophageal reflux disease, esophagitis presence not specified K21.9 [place] [id number] [place] [address] 41638- 5403 Aug, [place] [address] [place] [address]- 7572 26 Jul, 2015 Enlarged lymph node in neck R59.0 [place] [address] 85510- 8235 Jul, [place] [address] 02850- 1546 10 Jul, 2015 Chronic obstructive pulmonary disease, unspecified COPD type J44.9 ; Tobacco use Z72.0 ; Leukocytosis D72.829 ; Hyperlipidemia E78.5 and Neck abscess L02.11 [place] [address] 05006- 8345 14 Jun, 2015 Shortness of breath R06.02 [place] [address] 06748- 6708 May, Leukocytosis D72.829 and Shortness of breath R06.02 [place] [address] 23840- 1221 May, Low back pain M54.5 ; Hyperlipidemia E78.5 ; Leukocytosis D72.829 ; Other osteoarthritis of spine, cervical region M47.892 and Shortness of breath R06.02 [place] [id number] [place] [address] 46564- 1320 18 Feb, 2015 Chest pain 786.50 ; Tobacco use 305.1 ; Back pain 724.5 and Hyperlipemia 272.4 [place] [id number] [place] [address] 64547- 1658 Jan, [place] [address] 80133- 8654 Jan, Chronic low back pain 724.2 and Degenerative arthritis of cervical spine 721.0 [place] [address] 20507- 1903 Jan, Chronic low back pain 724.2 and Neck pain 723.1 [place] [address] [place] [address]- 9436 Dec, Chronic low back pain 724.2 and Neck pain 723.1 [place] [address]- 4866 Nov, Chest pain 786.50 ; Dyspnea 786.09 ; Tobacco use 305.1 and Back pain 724.[address] 64689- 5588 Nov, [address] 64093- 1399 04 Nov, 2014 Disability examination V68.01 and Muscle pain 729.[address] 32902- 7400 October, History of FL (myocardial infarction) 412 ; Hyperlipidemia LDL goal < 100 272.4 ; Leukocytosis 288.60 and Glucose intolerance (pre-diabetes ) 790.[address] 20290- 0798 October, Chest pain 786.50 ; Chronic low back pain 724.2 ; History of FL (myocardial infarction) 412 and Neuropathy 355.9 [place] [id number] [place] [address] 39741- 3334 October, Chronic low back pain 724.2 ; Chest pain 786.50 ; History of FL (myocardial infarction) 412 and Neuropathy 355.9 IMMUNIZATIONS No Known Immunizations SOCIAL HISTORY Never Assessed REASON FOR VISIT f/u Esteban PLAN OF CARE Activity Details Follow Up 4 Weeks Reason: VITAL SIGNS Height 68 in 2017-01-24 Weight 238.1 lbs 2017-01-24 Heart Rate 96 bpm 2017-01-24 Respiratory Rate 20 2017-01-24 BMI 36.20 kg/m2 2017-01-24 Blood pressure systolic 128 mmHg 2017-01-24 Blood pressure diastolic 80 mmHg 2017-01-24 MEDICATIONS Medication Instructions Dosage Frequency Start Date End Date Duration Status Nebulizer - Active Singulair 10 mg Orally Once a day 1 tablet in the evening 24h 30 Active Crestor 10 MG Orally Once a day 1 tablet 24h Active ZyrTEC 10 MG Orally Once a day 1 tablet 24h Active Cyclobenzaprine HCl 10 mg Orally Three times a day 1 tablet as needed 8h Active Seroquel 200 MG Orally Once a day 1/2 tablet for three nights then take 1 tablet every night 24h Dec, 30 days Active Dexilant 60 mg Orally Once a day 1 capsule 24h 90 days Active Metformin HCl 500 mg ICD10 E11.65 Twice a day 2 tablet with meals 12h Nov, Active Albuterol Sulfate (2.5 MG/3ML) 0.083% Inhalation 4 times a day 3 ml 6h Active Blood Glucose Monitor System w/Device DX- E 11.65 2 times a day- 3 times weekly. test blood sugar Nov, Active Blood Glucose Test - and lancets. DX E11.65 2 times a day- 3 times weekly. test blood sugar Nov, Active Citalopram Hydrobromide 20 MG Orally Once a day 1.5 tablets 24h 30 days Active Proventil HFA 108 (90 Base) MCG/ACT Inhalation every 4 hrs 2 puffs as needed 4h Jul, Active Oxygen inhalation Portable 2 liters per minute Active Symbicort 160-4.5 MCG/ACT Inhalation Twice a day 2 puffs 12h 24 Aug, 2015 Active Carafate 1 GM Orally 4 times a day x 2 weeks then prn 1 tablet on an empty stomach Active Aspir-81 81 MG Orally Once a day 1 tablet 24h Active Trazodone HCl 150 MG TAKE ONE-HALF TO ONE TABLET BY MOUTH AT BEDTIME NEEDED Active RESULTS No Results PROCEDURES No Known [...]
--- OUTSIDE RECORDS SUMMARY | 2017-11-07 07:30 | XMS REPORT ---
Author Author SHEYLA MARLIN Organization [facility] Address [address] [place] [address] Care Team Providers Care Supervisor Curing Room Name Role Phone LINDSEYMIGDALIA GRIMESA Unavailable PROBLEMS Type Condition ICD9-CM Code ZGC02-AH Code Onset Dates Condition Status SNOMED Code Problem Tobacco use Z72.0 Active 706998206 Problem Tear of right rotator cuff, unspecified tear extent M75.101 Active 812266548 Problem Enlarged lymph node R59.9 Active 66110119 Problem Nocturnal hypoxia G47.34 Active 367210362 Problem Hiatal hernia K44.9 Active 81353036 Problem Bipolar disorder, unspecified F31.9 Active 56720926 Problem Panlobular emphysema J43.1 Active 3334622 Problem Hyperplastic colonic polyp, unspecified part of colon K63.5 Active 303474070 Problem Mood disorder F39 Active 41192343 Problem Hyperlipidemia, unspecified hyperlipidemia type E78.5 Active 74762990 Problem Uncontrolled type 2 diabetes mellitus with hyperglycemia, without long -term current use of insulin E11.65 Active 321637632 Problem Non-seasonal allergic rhinitis due to other allergic trigger J30.89 Active 49441687 Problem Internal hemorrhoids K64.8 Active 07330905 Problem GERD with esophagitis K21.0 Active 436339242 Problem External hemorrhoids K64.4 Active 57549271 Problem Other chronic gastritis without hemorrhage K29.50 Active 7865195 Problem Low back pain M54.5 Active 984531651 Problem Leukocytosis D72.829 Active 096277129 Problem Other osteoarthritis of spine, cervical region M47.892 Active 009312100 Problem Hyperlipidemia E78.5 Active 59727611 Problem History of [place] (myocardial infarction) I25.2 Active 713512609 Problem Neuropathy G62.9 Active 690502677 ALLERGIES No Information ENCOUNTERS Encounter Location Date Diagnosis [facility] [address] [facility] [id number] [address] Nov, [facility] [address] [address] Nov, [facility] [id number] [place] [address] 72882- 8719 Sep, [facility] [id number] [place] [address] 88474- 3261 Sep, [facility] [id number] [place] [address] 16214- 1244 Sep, Leukocytosis D72.829 [facility] [id number] [place] [address] 31516- 2072 Sep, [facility] [id number] [place] [address] 58980- 5455 Sep, [facility] [id number] [place] [address] 96202- 7686 Sep, [facility] [id number] [place] [address] 25329- 9781 Aug, Low back pain M54.5 [facility] [id number] [place] [address] 43686- 2628 Aug, Bipolar disorder, unspecified F31.9 [facility] [address] [place] [address] 20342- 8952 Aug, [facility] [id number] [place] [address] 67941- 0888 Aug, [facility] [address] [place] [address] 28049- 7811 Aug, Uncontrolled type 2 diabetes mellitus with hyperglycemia, without long-term current use of insulin E11.65 ; Non-healing surgical wound, initial encounter T81.89XA ; Cellulitis of abdominal wall L03.311 ; Hyperlipidemia E78.5 ; Chronic obstructive pulmonary disease, unspecified COPD type J44.9 and Tobacco use Z72.0 [facility] [id number] [place] [address] 60323- 2542 Aug, [facility] [address] [address] 8323 Jul, [facility] [address] [place] [address] 553337- 4656 Jul, [facility] [address] [address] 9[address] Jul, Type 2 diabetes mellitus 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, 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 [facility] [address] [address] 1086 Jun, Bipolar disorder, unspecified F31.9 [facility] [address] [place] [address] 14421- 1075 Jun, [facility] [id number] [place] [address] 58510- 6721 Jun, Bipolar disorder, unspecified F31.9 [facility] [address] [address] 0882 Jun, Mood disorder F39 [facility] [id number] [place] [address] 83314- 4889 Jun, [facility] [address] [address] 7130 May, Fissure in skin of foot R23.4 ; Callus of foot L84 and Type 2 diabetes mellitus 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, 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 [facility] [address] [address] 7051 May, Mood disorder F39 [facility] [address] [address] 0119 Apr, [facility] [address] [address] 6438 Apr, Cough R05 and Tobacco use Z72.0 [facility] [id number] [address] 1961 Apr, Cough R05 and Tobacco use Z72.0 [facility] [id number] [place] [address] 84817- 7830 Apr, Mood disorder F39 [facility] [id number] [place] [address] 26622- 1720 Apr, Low back pain M54.5 [facility] [id number] [place] [address] 06578- 7274 Apr, Uncontrolled type 2 diabetes mellitus with hyperglycemia, without long-term current use of insulin E11.65 [facility] [id number] [place] [address] 67714- 9827 Apr, Uncontrolled type 2 diabetes mellitus with hyperglycemia, without long-term current use of insulin E11.65 [facility] [id number] [place] [address] 04127- 4927 Mar, Bipolar disorder, unspecified F31.9 [facility] [id number] [place] [address] 55348- 7669 Mar, [facility] [id number] [place] [address] 90253- 8557 Mar, Bipolar disorder, unspecified F31.9 [facility] [id number] [place] [address] 82922- 0068 Mar, Mood disorder F39 [facility] [address] [place] [address] 22778- 3557 Feb, [facility] [id number] [place] [address] 86924- 4078 Feb, [facility] [id number] [place] [address] 55303- 6341 Feb, [facility] [address] [place] [address] 78279- 7250 Feb, Bipolar disorder, unspecified F31.9 [facility] [id number] [place] [address] 12513- 8861 Feb, Uncontrolled type 2 diabetes mellitus with hyperglycemia, without long-term current use of insulin E11.65 ; Encounter for immunization Z23 ; Vasovagal syncope R55 and Low back pain M54.5 [place] [address] 24594- 1523 Jan, Bipolar disorder, unspecified F31.9 [facility] [address] 85266- 8682 Jan, [facility] [address] 26561- 7177 Jan, Fatigue, unspecified type R53.83 ; Nocturnal hypoxia G47.34 ; Leukocytosis D72.829 ; Other chronic gastritis without hemorrhage K29.50 ; Uncontrolled type 2 diabetes mellitus with hyperglycemia, without long-term current use of insulin E11.65 ; Alternating constipation and diarrhea R19.8 and Chronic obstructive pulmonary disease, unspecified COPD type J44.9 [facility] [address] 83217- 4057 Jan, [facility] [address] 40580- 6437 Jan, Leukocytosis D72.829 [facility] [address] 15819- 1537 Jan, Mood disorder F39 [facility] [id number] [place] [address] 50656- 0303 Dec, Bipolar disorder, unspecified F31.9 [place] [address] 37029- 1538 Dec, [facility] [id number] [place] [address] 66708 -7188 Dec, Acute gastritis without bleeding K29.00 [facility] [address] 91824- 8329 Dec, Leukocytosis D72.829 [facility] [id number] [place] [address] 98158- 3827 Dec, [facility] [id number] [place] [address] 60030- 5272 Dec, Dental examination Z01.20 [facility] [id number] [place] [address] 20777- 7327 11 Dec, 2016 [facility] [id number] [place] [address] 12910- 1654 Dec, Leukocytosis D72.829 [facility] [id number] [place] [address] 28252- 2441 Dec, Uncontrolled type 2 diabetes mellitus with hyperglycemia, without long-term current use of insulin E11.65 [facility] [id number] [place] [address] 20163- 3469 Nov, Dental examination Z01.20 [facility] [id number] [place] [address] 59404- 1053 Nov, [facility] [id number] [place] [address] 86141- 1757 Nov, Major depressive disorder, recurrent episode, moderate F33.1 [facility] [id number] [place] [address] 49823- 3584 Nov, Leukocytosis D72.829 [facility] [id number] [place] [address] 54258- 2467 05 Nov, 2016 Mood disorder F39 [facility] [id number] [place] [address] 93595- 9510 Nov, Other osteoarthritis of spine, cervical region M47.892 and Uncontrolled type 2 diabetes mellitus with hyperglycemia, without long-term current use of insulin E11.65 [place] [address] [place] [address] 63546- 4612 Nov, Leukocytosis D72.829 and Elevated serum glucose R73.9 [facility] [address] [address]- 4196 October, Elevated serum glucose R73.9 [facility] [address] [address]- 6092 October, Mood disorder F39 [facility] [address] [address]- 6792 Sep, Major depressive disorder, recurrent episode, moderate F33.1 [facility] [address] [address]- 0881 Sep, Mood disorder F39 [facility] [address] [place] [address] 75385- 0042 Aug, [facility] [address] [place] [address] 70853- 6526 Jul, Major depressive disorder, recurrent episode, moderate F33.1 [facility] [address] [address]- 0033 Jul, Mood disorder F39 [facility] [address] [place] [address] 91201- 7050 Jul, [facility] [address] [address]- 2334 Jul, History of VA (myocardial infarction) I25.2 ; Hyperlipidemia E78.5 ; Prediabetes R73.09 ; Chronic obstructive pulmonary disease, unspecified COPD type J44.9 and Tobacco use Z72.0 [facility] [address] [address]- 3218 Jun, [facility] [address] [place] [address] 44622- 5794 Jun, Mood disorder F39 [facility] [address] [address]- 4742 Jun, [facility] [address] [place] [address] 27272- 7974 May, Major depressive disorder, recurrent episode, moderate F33.1 and Primary insomnia F51.01 [facility] [id number] [place] [address] 26554- 4165 May, Mood disorder F39 [facility] [address] [place] [address] 33836- 6806 Apr, [facility] [id number] [place] [address] 36206- 9639 Apr, Mood disorder F39 [facility] [id number] [place] [address] 82063- 1068 Apr, [facility] [id number] [place] [address] 29962- 9721 Apr, [facility] [id number] [place] [address] 93964- 4274 Apr, Chronic obstructive pulmonary disease, unspecified COPD type J44.9 and Non-seasonal allergic rhinitis due to other allergic trigger J30.89 [facility] [id number] [place] [address] 80848- 4957 Apr, Mood disorder F39 [facility] [id number] [place] [address] 91113- 5824 Apr, Major depressive disorder, recurrent episode, moderate F33.1 and PTSD (post-traumatic stress disorder) F43.10 [facility] [place] [address] [place] [address] 49095- 5439 Apr, [facility] [address] [place] [address] 75268- 8010 Apr, [facility] [id number] [place] [address] 15045- 7088 04 Apr, 2016 Chest pain, unspecified type R07.9 ; Chronic obstructive pulmonary disease, unspecified COPD type J44.9 ; Hyperlipidemia, unspecified hyperlipidemia type E78.5 and Tobacco use Z72.0 [facility] [id number] [place] [address] 29223- 2538 Mar, Mood disorder F39 [facility] [id number] [place] [address] 23770- 3365 Mar, Mood disorder F39 [facility] [id number] [place] [address] 18066- 5021 Mar, Other osteoarthritis of spine, cervical region M47.892 [facility] [address] [place] [address] 05504- 8027 Mar, Tear of right rotator cuff, unspecified tear extent M75.101 [facility] [id number] [place] [address] 07255- 6262 Mar, [facility] [id number] [place] [address] 48421- 0082 Mar, Bipolar II disorder F31.81 [facility] [id number] [place] [address] 27922- 8898 Mar, [facility] [id number] [place] [address] 68960- 1919 Feb, Impingement syndrome of right shoulder M75.41 ; Tear of right rotator cuff, unspecified tear extent M75.101 and Loose body in right elbow M24.021 [facility] [address] [address]- 3724 Jan, [facility] [id number] [place] [address] 72450- 8185 Jan, [facility] [id number] [place] [address] 44739- 3430 Jan, Prediabetes R73.09 ; Other chronic pain G89.29 and Pain in right shoulder M25.511 [facility] [address] [place] [address] 60004- 1751 Dec, [facility] [id number] [place] [address] 87024- 4128 Dec, Heartburn R12 and Chest discomfort R07.89 [facility] [place] [address] [place] [address] 67429- 0069 Dec, Impingement syndrome of right shoulder M75.41 and 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, 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 [facility] [address] [place] [address] 72911- 5712 Nov, [place] [address] 47710- 2758 Nov, Leukocytosis D72.829 [place] [address] 38762- 7651 Nov, [facility] [address] [place] [address] 40953- 4143 Nov, Enlarged lymph node R59.9 ; Chronic obstructive pulmonary disease, unspecified COPD type J44.9 ; Low back pain M54.5 ; Neuropathy G62.9 and Closed nondisplaced fracture of sternal end of right clavicle, sequela S42.017S [place] [address] 83561- 5965 October, [facility] [address] [place] [address] 10332- 1069 October, [facility] [id number] [place] [address] 73489- 1272 Sep, [facility] [address] [place] [address] 37597- 8760 Aug, Double vision H53.2 ; Occipital headache R51 ; Chronic obstructive pulmonary disease, unspecified COPD type J44.9 and Gastroesophageal reflux disease, esophagitis presence not specified K21.9 [facility] [address] [place] [address] 42868- 5584 Aug, [facility] [address] [place] [address] 70754- 9182 Jul, Enlarged lymph node in neck R59.0 [facility] [address] [place] [address] 23777- 6047 Jul, [facility] [place] [address] 24695- 5019 10 Jul, 2015 Chronic obstructive pulmonary disease, unspecified COPD type J44.9 ; Tobacco use Z72.0 ; Leukocytosis D72.829 ; Hyperlipidemia E78.5 and Neck abscess L02.11 [place] [address] 20207- 1970 Jun, Shortness of breath R06.02 [place] [address] 67380- 3916 May, Leukocytosis D72.829 and Shortness of breath R06.[address] 55818- 1945 May, Low back pain M54.5 ; Hyperlipidemia E78.5 ; Leukocytosis D72.829 ; Other osteoarthritis of spine, cervical region M47.892 and Shortness of breath R06.02 [place] [address] 45254- 2563 Feb, Chest pain 786.50 ; Tobacco use 305.1 ; Back pain 724.5 and Hyperlipemia 272.4 [facility] [id number] [place] [address] 47130- 5680 Jan, [address] 41748- 4901 Jan, Chronic low back pain 724.2 and Degenerative arthritis of cervical spine 721.[address] 00559- 1053 Jan, Chronic low back pain 724.2 and Neck pain 723.[address] 29445- 6551 Dec, Chronic low back pain 724.2 and Neck pain 723.1 [place] [id number] [place] [address] 74430- 6544 Nov, Chest pain 786.50 ; Dyspnea 786.09 ; Tobacco use 305.1 and Back pain 724.5 [place] [id number] [place] [address] 45436- 2020 Nov, [address] 28230- 4932 Nov, Disability examination V68.01 and Muscle pain 729.[address] 31404- 9506 October, History of VA (myocardial infarction) 412 ; Hyperlipidemia LDL goal < 100 272.4 ; Leukocytosis 288.60 and Glucose intolerance (pre-diabetes ) 790.[address] 27020- 3098 October, Chest pain 786.50 ; Chronic low back pain 724.2 ; History of [place] (myocardial infarction) 412 and Neuropathy 355.9 [place] [id number] [place] [address] 56002- 9104 October, Chronic low back pain 724.2 ; Chest pain 786.50 ; History of [place] (myocardial infarction) 412 and Neuropathy 355.9 IMMUNIZATIONS No Known Immunizations SOCIAL HISTORY Never Assessed REASON FOR VISIT med refill PLAN OF CARE VITAL SIGNS MEDICATIONS Medication Instructions Dosage Frequency Start Date End Date Duration Status Trazodone HCl 150 MG TAKE ONE-HALF TO ONE TABLET BY MOUTH AT BEDTIME NEEDED 30 days Active RESULTS No Results PROCEDURES No [...] at age 31yr Hospitalization History Sleep Study 2017
--- OUTSIDE RECORDS SUMMARY | 2017-11-07 07:31 | XMS REPORT ---
Author Author KINJAL DORISGEORGINA Sheridan [facility] Address [address] [place] [address] Care Team Providers Care Ocean Fishing Guide Name Role Phone DORIS LAYTON Unavailable PROBLEMS Type Condition ICD9-CM Code [id number] Code Onset Dates Condition Status SNOMED Code Problem Tobacco use Z72.0 Active 524708829 Problem Tear of right rotator cuff, unspecified tear extent M75.101 Active 720958255 Problem Enlarged lymph node R59.9 Active 18085376 Problem Nocturnal hypoxia G47.34 Active 402549311 Problem Hiatal hernia K44.9 Active 25731356 Problem Bipolar disorder, unspecified F31.9 Active 19783659 Problem Hyperplastic colonic polyp, unspecified part of colon K63.5 Active 403445163 Problem Other chronic gastritis without hemorrhage K29.50 Active 7561908 Problem Mood disorder F39 Active 60767546 Problem Hyperlipidemia, unspecified hyperlipidemia type E78.5 Active 31251678 Problem Uncontrolled type 2 diabetes mellitus with hyperglycemia, without long -term current use of insulin E11.65 Active 294697611 Problem Non-seasonal allergic rhinitis due to other allergic trigger J30.89 Active 81696204 Problem GERD with esophagitis K21.0 Active 121597009 Problem Other osteoarthritis of spine, cervical region M47.892 Active 082316854 Problem External hemorrhoids K64.4 Active 59773770 Problem Internal hemorrhoids K64.8 Active 53763526 Problem Hyperlipidemia E78.5 Active 56310046 Problem Low back pain M54.5 Active 500527800 Problem History of OH (myocardial infarction) I25.2 Active 257252288 Problem Neuropathy G62.9 Active 577960130 Problem Leukocytosis D72.829 Active 746592607 Problem Chronic obstructive pulmonary disease, unspecified COPD type J44.9 Active 64615130 ALLERGIES Substance Reaction Event Type Date Status Incruse Ellipta Unknown Drug Allergy Nov, Active Tetracycline HCl nausea and vomiting Drug Allergy Nov, Active Spiriva HandiHaler Suicidal ideation Drug Allergy Nov, Active Ampicillin anaphylaxis Drug Allergy Nov, Active strawberries Unknown Non Drug Allergy Nov, Active penicillin anaphylaxis Non Drug Allergy Nov, Active ENCOUNTERS Encounter Location Date Diagnosis [place] [id number] [place] [address] 81024- 9965 Aug, [place] [id number] [place] [address] 77170- 5607 Aug, [place] [id number] [place] [address] 06803- 5291 Aug, Uncontrolled type 2 diabetes mellitus with hyperglycemia, without long-term current use of insulin E11.65 ; Non-healing surgical wound, initial encounter T81.89XA ; Cellulitis of abdominal wall L03.311 ; Hyperlipidemia E78.5 ; Chronic obstructive pulmonary disease, unspecified COPD type J44.9 and Tobacco use Z72.0 [place] [id number] [place] [address] 48959- 8938 Aug, [place] [id number] [place] [address] 69759- 8153 Jul, [place] [id number] [place] [address] 69069- 6827 Jul, [place] [id number] [place] [address] 44655- 4507 Jul, Type 2 diabetes mellitus 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, unspecified long-term insulin use status E11.40 [place] [id number] [place] [address] 33092- 2447 Jun, Bipolar disorder, unspecified F31.9 [place] [id number] [place] [address] 70010- 4810 Jun, [place] [id number] [place] [address] 10922- 8173 Jun, Bipolar disorder, unspecified F31.9 [place] [id number] [place] [address] 66102- 0090 Jun, Mood disorder F39 [place] [id number] [place] [address] 92283- 7611 Jun, [place] [id number] [place] [address] 76520- 9423 May, Fissure in skin of foot R23.4 ; Callus of foot L84 and Type 2 diabetes mellitus 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, unspecified long-term insulin use status E11.40 [place] [id number] [place] [address] 87374- 1424 04 May, 2017 Mood disorder F39 [place] [address] 28762- 1812 Apr, [place] [id number] [place] [address] 82688- 0644 Apr, Cough R05 and Tobacco use Z72.0 [place] [id number] [place] [address] 74076- 6352 Apr, Cough R05 and Tobacco use Z72.0 [place] [id number] [place] [address] 65218- 7466 06 Apr, 2017 Mood disorder F39 [place] [id number] [place] [address] 87680- 0788 06 Apr, 2017 Low back pain M54.5 [place] [id number] [place] [address] 23623- 9746 06 Apr, 2017 Uncontrolled type 2 diabetes mellitus with hyperglycemia, without long-term current use of insulin E11.65 [place] [id number] [place] [address] 37314- 9420 03 Apr, 2017 Uncontrolled type 2 diabetes mellitus with hyperglycemia, without long-term current use of insulin E11.65 [place] [id number] [place] [address] 51436- 4265 Mar, Bipolar disorder, unspecified F31.9 [place] [address] [place] [address]- 0996 Mar, [place] [id number] [place] [address] 31679- 5954 Mar, Bipolar disorder, unspecified F31.9 [place] [id number] [place] [address] 46136- 0368 Mar, Mood disorder F39 [place] [address] 18703- 8635 Feb, [place] [id number] [place] [address] 95081- 9493 Feb, [place] [address] 22320- 1326 Feb, [place] [id number] [place] [address] 04719- 8718 Feb, Bipolar disorder, unspecified F31.9 [place] [id number] [place] [address] 04604- 6990 Feb, Uncontrolled type 2 diabetes mellitus with hyperglycemia, without long-term current use of insulin E11.65 ; Encounter for immunization Z23 ; Vasovagal syncope R55 and Low back pain M54.5 [place] [id number] [place] [address] 00973- 6085 Jan, Bipolar disorder, unspecified F31.9 [place] [id number] [place] [address] 92289- 3712 Jan, [place] [id number] [place] [address] 46847- 0155 Jan, Fatigue, unspecified type R53.83 ; Nocturnal hypoxia G47.34 ; Leukocytosis D72.829 ; Other chronic gastritis without hemorrhage K29.50 ; Uncontrolled type 2 diabetes mellitus with hyperglycemia, without long-term current use of insulin E11.65 ; Alternating constipation and diarrhea R19.8 and Chronic obstructive pulmonary disease, unspecified COPD type J44.9 [place] [id number] [place] [address] [place] [address]- 0533 Jan, [facility] [address] [address] 4855 Jan, Leukocytosis D72.829 [facility] [address] [place] [address] 3300 Jan, Mood disorder F39 [facility] [id number] [place] [address] 49152- 7361 Dec, Bipolar disorder, unspecified F31.9 [facility] [address] [place] [address] 05142- 7673 Dec, [facility] [id number] [place] [address] 22178 -0076 Dec, Acute gastritis without bleeding K29.00 [facility] [id number] [place] [address] 75227- 2170 Dec, Leukocytosis D72.829 [facility] [id number] [place] [address] 08003- 8100 Dec, [facility] [id number] [place] [address] 52052- 6059 Dec, Dental examination Z01.20 [facility] [address] [place] [address] 2873 Dec, [facility] [address] [place] [address]- 0882 Dec, Leukocytosis D72.829 [facility] [address] [address]- 5140 Dec, Uncontrolled type 2 diabetes mellitus with hyperglycemia, without long-term current use of insulin E11.65 [facility] [address] [place] [address]- 2073 Nov, Dental examination Z01.20 [facility] [address] [place] [address] 35283- 2606 Nov, [facility] [address] [place] [address]- 4212 Nov, Major depressive disorder, recurrent episode, moderate F33.1 [facility] [address] [place] [address] 16084- 5645 06 Nov, 2016 Leukocytosis D72.829 [place] [id number] [place] [address] 13607- 4684 05 Nov, 2016 Mood disorder F39 [place] [address] [place] [address] 17245- 1055 Nov, Other osteoarthritis of spine, cervical region M47.892 and Uncontrolled type 2 diabetes mellitus with hyperglycemia, without long-term current use of insulin E11.65 [place] [id number] [place] [address] 94827- 3137 Nov, Leukocytosis D72.829 and Elevated serum glucose R73.9 [place] [id number] [place] [address] 54825- 0884 October, Elevated serum glucose R73.9 [place] [id number] [place] [address] 12271- 1774 October, Mood disorder F39 [place] [id number] [place] [address] 08905- 2340 Sep, Major depressive disorder, recurrent episode, moderate F33.1 [facility] [id number] [place] [address] 59422- 1844 Sep, Mood disorder F39 [facility] [address], [place] [address]- 3205 Aug, [place] [id number] [place] [address] 06197- 7494 Jul, Major depressive disorder, recurrent episode, moderate F33.1 [place] [address] [place] [address] 83743- 3550 Jul, Mood disorder F39 [facility] [address], [place] [address]- 5781 Jul, [facility] [id number] [place] [address] 84489- 2985 Jul, History of [place] (myocardial infarction) I25.2 ; Hyperlipidemia E78.5 ; Prediabetes R73.09 ; Chronic obstructive pulmonary disease, unspecified COPD type J44.9 and Tobacco use Z72.0 [facility] [id number] [place] [address] 71891- 7937 Jun, [place] [id number] [place] [address] 68894- 6132 Jun, Mood disorder F39 [place] [id number] [place] [address] 20238- 0388 Jun, [facility] [id number] [place] [address] 23074- 9735 May, Major depressive disorder, recurrent episode, moderate F33.1 and Primary insomnia F51.01 [place] [id number] [place] [address] 84173- 8269 May, Mood disorder F39 [place] [id number] [place] [address] 94853- 3002 Apr, [place] [address] [place] [address] 95408- 4281 Apr, Mood disorder F39 [facility] [address], [place] [address]- 0109 Apr, [place] [id number] [place] [address] 61404- 1960 Apr, [facility] [address] [place] [address] 08289- 2914 Apr, Chronic obstructive pulmonary disease, unspecified COPD type J44.9 and Non-seasonal allergic rhinitis due to other allergic trigger J30.89 [place] [id number] [place] [address] 83129- 6818 11 Apr, 2016 Mood disorder F39 [facility] [id number] [place] [address] 02521- 1522 Apr, Major depressive disorder, recurrent episode, moderate F33.1 and PTSD (post-traumatic stress disorder) F43.10 [facility] [id number] [place] [address] 26804- 9575 Apr, [facility] [id number] [place] [address] 65873- 5277 Apr, [facility] [id number] [place] [address] 30770- 4081 Apr, Chest pain, unspecified type R07.9 ; Chronic obstructive pulmonary disease, unspecified COPD type J44.9 ; Hyperlipidemia, unspecified hyperlipidemia type E78.5 and Tobacco use Z72.0 [facility] [id number] [place] [address] 14407- 2389 Mar, Mood disorder F39 [facility] [id number] [place] [address] 07579- 8961 Mar, Mood disorder F39 [facility] [id number] [place] [address] 53438- 8772 Mar, Other osteoarthritis of spine, cervical region M47.892 [facility] [id number] [place] [address] 47814- 1802 Mar, Tear of right rotator cuff, unspecified tear extent M75.101 [facility] [id number] [place] [address] 49743- 2803 Mar, [place] [id number] [place] [address] 40023- 8546 Mar, Bipolar II disorder F31.81 [facility] [id number] [place] [address] 15184- 9604 Mar, [facility] [id number] [place] [address] 70775- 6478 Feb, Impingement syndrome of right shoulder M75.41 ; Tear of right rotator cuff, unspecified tear extent M75.101 and Loose body in right elbow M24.021 [place] [id number] [place] [address] 37932- 4295 Jan, [place] [address] 43132- 2569 Jan, [place] [id number] [place] [address] 50801- 4001 Jan, Prediabetes R73.09 ; Other chronic pain G89.29 and Pain in right shoulder M25.511 [place] [id number] [place] [address] 82617- 0730 Dec, [place] [address] 53471- 9930 Dec, Heartburn R12 and Chest discomfort R07.89 [place] [id number] [place] [address] 51838- 9772 Dec, Impingement syndrome of right shoulder M75.41 and 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, 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 [place] [id number] [place] [address] 35884- 3952 Nov, [place] [id number] [place] [address] 12991- 1756 Nov, Leukocytosis D72.829 [place] [id number] [place] [address] 32002- 1474 Nov, [place] [id number] [place] [address] 26548- 2879 Nov, Enlarged lymph node R59.9 ; Chronic obstructive pulmonary disease, unspecified COPD type J44.9 ; Low back pain M54.5 ; Neuropathy G62.9 and Closed nondisplaced fracture of sternal end of right clavicle, sequela S42.017S [place] [id number] [place] [address] 30113- 4499 October, [place] [id number] [place] [address] 83336- 1314 October, [place] [id number] [place] [address] 36311- 3205 Sep, [place] [id number] [place] [address] 46436- 5840 Aug, Double vision H53.2 ; Occipital headache R51 ; Chronic obstructive pulmonary disease, unspecified COPD type J44.9 and Gastroesophageal reflux disease, esophagitis presence not specified K21.9 [place] [id number] [place] [address] 05365- 2077 Aug, [place] [address] 19581- 5072 Jul, Enlarged lymph node in neck R59.0 [place] [id number] [place] [address] 25976- 5754 Jul, [place] [id number] [place] [address] 74725- 6479 Jul, Chronic obstructive pulmonary disease, unspecified COPD type J44.9 ; Tobacco use Z72.0 ; Leukocytosis D72.829 ; Hyperlipidemia E78.5 and Neck abscess L02.11 [place] [id number] [place] [address] 45421- 0787 Jun, Shortness of breath R06.02 [place] [id number] [place] [address] 11399- 7519 May, Leukocytosis D72.829 and Shortness of breath R06.02 [place] [id number] [place] [address] 42964- 3063 09 May, 2015 Low back pain M54.5 ; Hyperlipidemia E78.5 ; Leukocytosis D72.829 ; Other osteoarthritis of spine, cervical region M47.892 and Shortness of breath R06.02 [place] [id number] [place] [address] 68912- 2911 Feb, Chest pain 786.50 ; Tobacco use 305.1 ; Back pain 724.5 and Hyperlipemia 272.4 [place] [address] 08617- 7644 Jan, [place] [address] 85418- 1831 Jan, Chronic low back pain 724.2 and Degenerative arthritis of cervical spine 721.[address] 43493- 9499 Jan, Chronic low back pain 724.2 and Neck pain 723.[address] 11756- 9726 Dec, Chronic low back pain 724.2 and Neck pain 723.[address] 99082- 3943 Nov, Chest pain 786.50 ; Dyspnea 786.09 ; Tobacco use 305.1 and Back pain 724.5 [place] [address] 36602- 8205 Nov, [address] 19343- 8688 Nov, Disability examination V68.01 and Muscle pain 729.[address] 57625- 3086 October, History of [place] (myocardial infarction) 412 ; Hyperlipidemia LDL goal < 100 272.4 ; Leukocytosis 288.60 and Glucose intolerance (pre-diabetes ) 790.[address] 36889- 2430 October, Chest pain 786.50 ; Chronic low back pain 724.2 ; History of [place] (myocardial infarction) 412 and Neuropathy 355.9 [facility] [address] [facility] [id number] [place] [address]- 1194 October, Chronic low back pain 724.2 ; Chest pain 786.50 ; History of [place] (myocardial infarction) 412 and Neuropathy 355.9 IMMUNIZATIONS No Known Immunizations SOCIAL HISTORY Never Assessed REASON FOR VISIT Neck Pain/Requests MRI--tcuppettRN, -Had A1C done today and is 7.7, -Needing an MRI and referral to Dr. Kim out of [place] in [place]. Had injections & did not help with pain. , -Dizziness & blurred vision at times recently PLAN OF CARE Activity Details Follow Up 3 Months Reason:DMII VITAL SIGNS Height 68 in 2016-11-04 Weight 238.0 lbs 2016-11-04 Temperature 97.6 degrees Fahrenheit 2016-11-04 Heart Rate 102 bpm 2016-11-04 Respiratory Rate 24 2016-11-04 BMI 36.18 kg/m2 2016-11-04 Blood pressure systolic 130 mmHg 2016-11-04 Blood pressure diastolic 68 mmHg 2016-11-04 MEDICATIONS Medication Instructions Dosage Frequency Start Date End Date Duration Status Pravastatin Sodium 20 MG Orally Once a day 1 tablet 24h 30 Active Cyclobenzaprine HCl 10 mg Orally Three times a day 1 tablet as needed 8h Active Oxygen Active Nebulizer - Active Proventil HFA 108 (90 Base) MCG/ACT Inhalation every 4 hrs 2 puffs as needed 4h 12 Jul, 2015 Active Singulair 10 mg Orally Once a day 1 tablet in the evening 24h 17 Apr, 2016 30 day(s) Active Symbicort 160-4.5 MCG/ACT Inhalation Twice a day 2 puffs 12h 24 Aug, 2015 Active Trazodone HCl 150 MG TAKE ONE-HALF TO ONE TABLET BY MOUTH AT BEDTIME NEEDED Active Citalopram Hydrobromide 20 MG Orally Once a day 1 tablet 24h 30 Active Albuterol Sulfate (2.5 MG/3ML) 0.083% Inhalation 4 times a day 3 ml 6h Active ZyrTEC 10 MG Orally Once a day 1 tablet 24h Active Metformin HCl 500 mg Orally Twice a day 1 tablet with meals 12h Nov, 30 day(s) Active Crestor 10 MG Orally Once a day 1 tablet 24h Active Aspir-81 81 MG Orally Once a day 1 tablet 24h Active Pantoprazole Sodium 40 mg Orally Once a day 1 tablet 24h 30 Active Carafate 1 GM Orally 4 times a day x 2 weeks then prn 1 tablet on an empty stomach Active Dexilant 60 MG Orally Once a day 1 capsule 24h Active RESULTS Name Result Date Reference Range MRI : Cervical w/o Contrast 2016-11-15 PROCEDURES No Known procedures INSTRUCTIONS MEDICATIONS ADMINISTERED [...]
--- OUTSIDE RECORDS SUMMARY | 2017-11-07 07:31 | XMS REPORT ---
Author Author KINJAL DORIS Organization [facility] Address [address] [place] [address] Care Team Providers Care Marketing Program Coordinator Name Role Phone DORIS LAYTON Unavailable PROBLEMS Type Condition ICD9-CM Code BUN67-OF Code Onset Dates Condition Status SNOMED Code Problem Tobacco use Z72.0 Active 364098093 Problem Tear of right rotator cuff, unspecified tear extent M75.101 Active 462609840 Problem Enlarged lymph node R59.9 Active 13893605 Problem Nocturnal hypoxia G47.34 Active 391041152 Problem Hiatal hernia K44.9 Active 08793074 Problem Bipolar disorder, unspecified F31.9 Active 93610610 Problem Panlobular emphysema J43.1 Active 3429235 Problem Hyperplastic colonic polyp, unspecified part of colon K63.5 Active 808648631 Problem Mood disorder F39 Active 24590124 Problem Hyperlipidemia, unspecified hyperlipidemia type E78.5 Active 25934488 Problem Uncontrolled type 2 diabetes mellitus with hyperglycemia, without long -term current use of insulin E11.65 Active 717140215 Problem Non-seasonal allergic rhinitis due to other allergic trigger J30.89 Active 08079172 Problem Internal hemorrhoids K64.8 Active 54832009 Problem GERD with esophagitis K21.0 Active 403519159 Problem External hemorrhoids K64.4 Active 71614598 Problem Other chronic gastritis without hemorrhage K29.50 Active 1014382 Problem Low back pain M54.5 Active 789389548 Problem Leukocytosis D72.829 Active 643947362 Problem Other osteoarthritis of spine, cervical region M47.892 Active 958331274 Problem Hyperlipidemia E78.5 Active 19843305 Problem History of PR (myocardial infarction) I25.2 Active 461967651 Problem Neuropathy G62.9 Active 752239872 ALLERGIES Substance Reaction Event Type Date Status Incruse Ellipta Unknown Drug Allergy Feb, Active Tetracycline HCl nausea and vomiting Drug Allergy Feb, Active Spiriva HandiHaler Suicidal ideation Drug Allergy Feb, Active Ampicillin anaphylaxis Drug Allergy Feb, Active strawberries Unknown Non Drug Allergy Feb, Active penicillin anaphylaxis Non Drug Allergy Feb, Active ENCOUNTERS Encounter Location Date Diagnosis [facility] [address] [place] [address] 89828- 7607 Nov, [facility] [id number] [place] [address] 31001- 3555 Sep, [facility] [id number] [place] [address] 79410- 8413 Sep, [facility] [id number] [place] [address] 48666- 9128 Sep, Leukocytosis D72.829 [facility] [id number] [place] [address] 41549- 6052 Sep, [facility] [id number] [place] [address] 32831- 5515 Sep, [facility] [id number] [place] [address] 83003- 9799 Sep, [facility] [id number] [place] [address] 31930- 1044 Aug, Low back pain M54.5 [facility] [id number] [place] [address] 62274- 9999 Aug, Bipolar disorder, unspecified F31.9 [facility] [address] [address] 8420 Aug, [facility] [id number] [place] [address] 10693- 1880 Aug, [facility] [id number] [place] [address] 39486- 9078 Aug, Uncontrolled type 2 diabetes mellitus with hyperglycemia, without long-term current use of insulin E11.65 ; Non-healing surgical wound, initial encounter T81.89XA ; Cellulitis of abdominal wall L03.311 ; Hyperlipidemia E78.5 ; Chronic obstructive pulmonary disease, unspecified COPD type J44.9 and Tobacco use Z72.0 [facility] [id number] [place] [address] 02410- 6753 Aug, [facility] [id number] [place] [address] 38724- 8090 Jul, [facility] [id number] [place] [address] 02173- 3009 Jul, [facility] [id number] [place] [address] 15452- 0107 Jul, Type 2 diabetes mellitus 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, unspecified custodial insulin use status E11.40 [facility] [id number] [place] [address] 61425- 9354 Jun, Bipolar disorder, unspecified F31.9 [facility] [id number] [place] [address] 04637- 4381 Jun, [facility] [id number] [place] [address] 19331- 1798 Jun, Bipolar disorder, unspecified F31.9 [facility] [id number] [place] [address] 62298- 1232 Jun, Mood disorder F39 [facility] [address] [place] [address] 54272- 0196 Jun, [facility] [id number] [place] [address] 40801- 1788 May, Fissure in skin of foot R23.4 ; Callus of foot L84 and Type 2 diabetes mellitus 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, unspecified custodial insulin use status E11.40 [facility] [address] [place] [address] 38787- 2935 May, Mood disorder F39 [facility] [address] [place] [address] 23071- 0144 Apr, [facility] [id number] [place] [address] 08239- 5111 15 Apr, 2017 Cough R05 and Tobacco use Z72.0 [facility] [id number] [place] [address] 16444- 0159 Apr, Cough R05 and Tobacco use Z72.0 [facility] [id number] [place] [address] 24371- 5227 Apr, Mood disorder F39 [facility] [id number] [place] [address] 30591- 6097 Apr, Low back pain M54.5 [facility] [address] 40244- 6660 Apr, Uncontrolled type 2 diabetes mellitus with hyperglycemia, without long-term current use of insulin E11.65 [facility] [id number] [place] [address] 91424- 9779 Apr, Uncontrolled type 2 diabetes mellitus with hyperglycemia, without long-term current use of insulin E11.65 [facility] [id number] [place] [address] 55759- 3766 Mar, Bipolar disorder, unspecified F31.9 [facility] [id number] [place] [address] 78663- 7535 Mar, [facility] [id number] [place] [address] 50407- 0595 Mar, Bipolar disorder, unspecified F31.9 [facility] [id number] [place] [address] 22620- 1434 Mar, Mood disorder F39 [facility] [id number] [place] [address] 50774- 4942 Feb, [facility] [id number] [place] [address] 72050- 4113 Feb, [facility] [id number] [place] [address] 93354- 2999 Feb, [facility] [id number] [place] [address] 95248- 0483 Feb, Bipolar disorder, unspecified F31.9 [facility] [address] 21001- 0757 Feb, Uncontrolled type 2 diabetes mellitus with hyperglycemia, without long-term current use of insulin E11.65 ; Encounter for immunization Z23 ; Vasovagal syncope R55 and Low back pain M54.5 [facility] [facility] [address] 27477- 7144 Jan, Bipolar disorder, unspecified F31.9 [place] [facility] [address] 39826- 9855 Jan, [facility] [address] 81122- 2812 Jan, Fatigue, unspecified type R53.83 ; Nocturnal hypoxia G47.34 ; Leukocytosis D72.829 ; Other chronic gastritis without hemorrhage K29.50 ; Uncontrolled type 2 diabetes mellitus with hyperglycemia, without long-term current use of insulin E11.65 ; Alternating constipation and diarrhea R19.8 and Chronic obstructive pulmonary disease, unspecified COPD type J44.9 [facility] [id number] [place] [address] 55476- 3294 Jan, [facility] [id number] [place] [address] 19518- 1681 Jan, Leukocytosis D72.829 [facility] [address] 33424- 9101 Jan, Mood disorder F39 [facility] [address] 48180- 5785 Dec, Bipolar disorder, unspecified F31.9 [facility] [id number] [place] [address] 26620- 5554 Dec, [facility] [id number] [place] [address] 57969 -0727 Dec, Acute gastritis without bleeding K29.00 [facility] [address] [address]- 0186 18 Dec, 2016 Leukocytosis D72.829 [facility] [address] [address]- 6586 14 Dec, 2016 [facility] [address] [place] [address] 15403- 4357 Dec, Dental examination Z01.20 [facility] [address] [address]- 0729 Dec, [facility] [id number] [place] [address] 88784- 6483 Dec, Leukocytosis D72.829 [facility] [address] [place] [address] 55215- 4738 Dec, Uncontrolled type 2 diabetes mellitus with hyperglycemia, without long-term current use of insulin E11.65 [facility] [address] [address]- 1368 Nov, Dental examination Z01.20 [facility] [address] [address]- 3643 Nov, [facility] [address] [address]- 8928 Nov, Major depressive disorder, recurrent episode, moderate F33.1 [facility] [address] [address]- 3104 Nov, Leukocytosis D72.829 [facility] [address] [place] [address] 69580- 6226 05 Nov, 2016 Mood disorder F39 [facility] [address] [address]- 5009 Nov, Other osteoarthritis of spine, cervical region M47.892 and Uncontrolled type 2 diabetes mellitus with hyperglycemia, without long-term current use of insulin E11.65 [facility] [address] [address]- 8111 Nov, Leukocytosis D72.829 and Elevated serum glucose R73.9 [facility] [address] [place] [address] 10436- 3159 October, Elevated serum glucose R73.9 [facility] [address] [place] [address] 62050- 4254 October, Mood disorder F39 [facility] [id number] [place] [address] 71326- 1015 Sep, Major depressive disorder, recurrent episode, moderate F33.1 [facility] [address] [place] [address] 77634- 9859 Sep, Mood disorder F39 [facility] [address] [place] [address] 43694- 7417 Aug, [facility] [id number] [place] [address] 99325- 3277 Jul, Major depressive disorder, recurrent episode, moderate F33.1 [facility] [address] [place] [address] 32645- 5376 Jul, Mood disorder F39 [facility] [address], [place] [address]- 5532 Jul, [facility] [address] [address]- 9392 Jul, History of PR (myocardial infarction) I25.2 ; Hyperlipidemia E78.5 ; Prediabetes R73.09 ; Chronic obstructive pulmonary disease, unspecified COPD type J44.9 and Tobacco use Z72.0 [facility] [address] [address]- 5306 Jun, [facility] [address] [address]- 7997 Jun, Mood disorder F39 [facility] [address], [place] [address]- 7840 Jun, [facility] [id number] [place] [address] 08345- 9555 May, Major depressive disorder, recurrent episode, moderate F33.1 and Primary insomnia F51.01 [facility] [id number] [place] [address] 69524- 6780 May, Mood disorder F39 [facility] [id number] [place] [address] 66670- 9172 Apr, [facility] [id number] [place] [address] 63448- 2551 Apr, Mood disorder F39 [facility] [id number] [place] [address] 64290- 6578 Apr, [facility] [id number] [place] [address] 07174- 3923 Apr, [facility] [address] [place] [address] 65670- 8476 Apr, Chronic obstructive pulmonary disease, unspecified COPD type J44.9 and Non-seasonal allergic rhinitis due to other allergic trigger J30.89 [facility] [id number] [place] [address] 82070- 1115 Apr, Mood disorder F39 [facility] [id number] [place] [address] 66511- 9548 Apr, Major depressive disorder, recurrent episode, moderate F33.1 and PTSD (post-traumatic stress disorder) F43.10 [facility] [id number] [place] [address] 64885- 1874 07 Apr, 2016 [facility] [address] [place] [address] 76793- 3949 07 Apr, 2016 [facility] [address] [place] [address] 78131- 0664 Apr, Chest pain, unspecified type R07.9 ; Chronic obstructive pulmonary disease, unspecified COPD type J44.9 ; Hyperlipidemia, unspecified hyperlipidemia type E78.5 and Tobacco use Z72.0 [facility] [address] [place] [address] 15868- 1524 Mar, Mood disorder F39 [facility] [address] [place] [address] 78934- 3551 Mar, Mood disorder F39 [facility] [address] [place] [address] 66156- 4143 Mar, Other osteoarthritis of spine, cervical region M47.892 [facility] [address] 27168- 8528 Mar, Tear of right rotator cuff, unspecified tear extent M75.101 [facility] [address] [place] [address] 53765- 8862 Mar, [facility] [address] [place] [address] 10579- 0762 Mar, Bipolar II disorder F31.81 [facility] [address] [place] [address] 76165- 8294 Mar, [facility] [address] [place] [address] 22727- 3660 Feb, Impingement syndrome of right shoulder M75.41 ; Tear of right rotator cuff, unspecified tear extent M75.101 and Loose body in right elbow M24.021 [facility] [address] [place] [address] 66819- 7463 Jan, [facility] [address] [place] [address] 32687- 0002 Jan, [facility] [address] [place] [address] 38762- 9507 Jan, Prediabetes R73.09 ; Other chronic pain G89.29 and Pain in right shoulder M25.511 [facility] [address] [place] [address]- 5306 Dec, [facility] [address] [place] [address] 32017- 3978 Dec, Heartburn R12 and Chest discomfort R07.89 [facility] [address] [place] [address] 49940- 7465 Dec, Impingement syndrome of right shoulder M75.41 and 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, 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 [facility] [facility] [address] 92512- 6363 Nov, [facility] [address] 63403- 6249 Nov, Leukocytosis D72.829 [facility] [facility] [address] 26116- 1032 Nov, [facility] [address] 30003- 4196 Nov, Enlarged lymph node R59.9 ; Chronic obstructive pulmonary disease, unspecified COPD type J44.9 ; Low back pain M54.5 ; Neuropathy G62.9 and Closed nondisplaced fracture of sternal end of right clavicle, sequela S42.017S [facility] [address] [place] [address] 55010- 6079 October, [facility] [address] [place] [address] 58643- 0727 October, [facility] [address] [place] [address] 74579- 1553 Sep, [facility] [address] 00669- 8460 Aug, Double vision H53.2 ; Occipital headache R51 ; Chronic obstructive pulmonary disease, unspecified COPD type J44.9 and Gastroesophageal reflux disease, esophagitis presence not specified K21.9 [facility] [address] [place] [address]- 7564 Aug, [facility] [address] [place] [address] 06014- 3871 Jul, Enlarged lymph node in neck R59.0 [facility] [address] [place] [address] 54101- 7895 Jul, [facility] [address] 17462- 5319 Jul, Chronic obstructive pulmonary disease, unspecified COPD type J44.9 ; Tobacco use Z72.0 ; Leukocytosis D72.829 ; Hyperlipidemia E78.5 and Neck abscess L02.11 [facility] [address] 86105- 5759 Jun, Shortness of breath R06.02 [facility] [facility] [address] 35496- 9351 May, Leukocytosis D72.829 and Shortness of breath R06.02 [facility] [address] [place] [address] 52591- 3717 May, Low back pain M54.5 ; Hyperlipidemia E78.5 ; Leukocytosis D72.829 ; Other osteoarthritis of spine, cervical region M47.892 and Shortness of breath R06.02 [facility] [address] [place] [address] 10168- 9585 Feb, Chest pain 786.50 ; Tobacco use 305.1 ; Back pain 724.5 and Hyperlipemia 272.4 [facility] [address] [place] [address] 70091- 6878 Jan, [facility] [facility] [address] 53202- 1935 Jan, Chronic low back pain 724.2 and Degenerative arthritis of cervical spine 721.0 [place] [facility] [address] 71486- 6834 Jan, Chronic low back pain 724.2 and Neck pain 723.1 [facility] [address] [place] [address] 18413- 6936 Dec, Chronic low back pain 724.2 and Neck pain 723.1 [facility] [address] 20570- 7829 Nov, Chest pain 786.50 ; Dyspnea 786.09 ; Tobacco use 305.1 and Back pain 724.5 [facility] [facility] [address] 85961- 2244 Nov, [address] 16437- 1886 Nov, Disability examination V68.01 and Muscle pain 729.[address] 61123- 5191 October, History of PR (myocardial infarction) 412 ; Hyperlipidemia LDL goal < 100 272.4 ; Leukocytosis 288.60 and Glucose intolerance (pre-diabetes ) 790.[address] 83128- 0016 October, Chest pain 786.50 ; Chronic low back pain 724.2 ; History of PR (myocardial infarction) 412 and Neuropathy 355.[address] 51306- 2991 October, Chronic low back pain 724.2 ; Chest pain 786.50 ; History of PR (myocardial infarction) 412 and Neuropathy 355.9 IMMUNIZATIONS Vaccine Route Administration Date Status PPSV23 (PNEUMOVAX) IM Intramuscular 2017 Administered SOCIAL HISTORY Never Assessed REASON FOR VISIT Diabetes ---TEJ Lind, pt. would like to get diabetic shoes PLAN OF CARE Activity Details Follow Up 3 Months Reason:DMII VITAL SIGNS Height 68 in 2017 Weight 239.5 lbs 2017 Temperature 98.7 degrees Fahrenheit 2017 Heart Rate 94 bpm 2017 Respiratory Rate 20 2017 BMI 36.41 kg/m2 2017 Blood pressure systolic 137 mmHg 2017 Blood pressure diastolic 83 mmHg 2017 MEDICATIONS Medication Instructions Dosage Frequency Start Date End Date Duration Status Aspir-81 81 MG Orally Once a day 1 tablet 24h Active Albuterol Sulfate (2.5 MG/3ML) 0.083% Inhalation 4 times a day 3 ml 6h Active Crestor 10 MG Orally Once a day 1 tablet 24h Active Trazodone HCl 150 MG TAKE ONE-HALF TO ONE TABLET BY MOUTH AT BEDTIME NEEDED Active ZyrTEC 10 MG Orally Once a day 1 tablet 24h Active Seroquel 200 MG Orally Once a day 1/2 tablet for three nights then take 1 tablet every night 24h Dec, 30 days Active Dexilant 60 mg Orally Once a day 1 capsule 24h 90 days Active Metformin HCl 500 mg ICD10 E11.65 Twice a day 2 tablet with meals 12h Nov, Active Nebulizer - Active Blood Glucose Monitor System w/Device DX- E 11.65 2 times a day- 3 times weekly. test blood sugar Nov, Active Singulair 10 mg Orally Once a day 1 tablet in the evening 24h 30 Active Cyclobenzaprine HCl 10 mg Orally Three times a day 1 tablet as needed 8h 7 Apr, 2017 30 days Active Carafate 1 GM Orally 4 times a day x 2 weeks then prn 1 tablet on an empty stomach Active Oxygen inhalation Portable 2 liters per minute Active Symbicort 160-4.5 MCG/ACT Inhalation Twice a day 2 puffs 12h 24 Aug, 2015 Active Blood Glucose Test - and lancets. DX E11.65 2 times a day- 3 times weekly. test blood sugar Nov, Active Citalopram Hydrobromide 20 MG Orally Once a day 1.5 tablets 24h 30 days Active Proventil HFA 108 (90 Base) MCG/ACT Inhalation every 4 hrs 2 puffs as needed 4h 12 Jul, 2015 Active RESULTS Name Result Date Reference Range A1C (IN HOUSE) 2017 A1C IN HOUSE 6.8 4.3 - 5.6 % Previous A1c 7.7 Lot [id number] Exp date PROCEDURES Procedure Date Ordered Result Body Site EKG, TRACING (IN-HOUSE) 2017 N/A GLYCATED HEMOGLOBIN TEST 2017 ELECTROCARDIOGRAM, TRACING 2017 ADMN PNEUMCOC VAC NO FEE SCHED DAY 2017 PPSV23 (PNEUMOVAX) 2017 SINGLE IMMUNIZATION ADMIN 2017 INSTRUCTIONS MEDICATIONS ADMINISTERED No Known Medications [...]
--- OUTSIDE RECORDS SUMMARY | 2017-11-07 07:32 | XMS REPORT ---
Author Author KINJAL DORIS [facility] Address [address] [place] [address] Care Team Providers Care Claim Clinician Name Role Phone DORIS LAYTON Unavailable PROBLEMS Type Condition ICD9-CM Code DGG87-ZG Code Onset Dates Condition Status SNOMED Code Problem Tobacco use Z72.0 Active 272613432 Problem Tear of right rotator cuff, unspecified tear extent M75.101 Active 977098681 Problem Enlarged lymph node R59.9 Active 59062132 Problem Nocturnal hypoxia G47.34 Active 021844395 Problem Hiatal hernia K44.9 Active 76644461 Problem Bipolar disorder, unspecified F31.9 Active 35293540 Problem Panlobular emphysema J43.1 Active 0173400 Problem Hyperplastic colonic polyp, unspecified part of colon K63.5 Active 437969079 Problem Mood disorder F39 Active 47753230 Problem Hyperlipidemia, unspecified hyperlipidemia type E78.5 Active 84531339 Problem Uncontrolled type 2 diabetes mellitus with hyperglycemia, without long -term current use of insulin E11.65 Active 662099137 Problem Non-seasonal allergic rhinitis due to other allergic trigger J30.89 Active 34424308 Problem Internal hemorrhoids K64.8 Active 86840465 Problem GERD with esophagitis K21.0 Active 212733290 Problem External hemorrhoids K64.4 Active 42159005 Problem Other chronic gastritis without hemorrhage K29.50 Active 1522359 Problem Low back pain M54.5 Active 268882385 Problem Leukocytosis D72.829 Active 513292602 Problem Other osteoarthritis of spine, cervical region M47.892 Active 151194352 Problem Hyperlipidemia E78.5 Active 50048773 Problem History of [place] (myocardial infarction) I25.2 Active 456928021 Problem Neuropathy G62.9 Active 113365363 ALLERGIES No Information ENCOUNTERS Encounter Location Date Diagnosis [facility] [address] [id number] [address] Nov, [facility] [address] [address] Nov, [facility] [address] [address] 47[address] Nov, [facility] [address] [address] Sep, [facility] [id number] [place] [address] 68111- 9942 Sep, [facility] [id number] [place] [address] 24326- 2537 Sep, Leukocytosis D72.829 [facility] [address] [address] Sep, [facility] [id number] [place] [address] 58805- 8207 Sep, [facility] [address], [place] [address] Sep, [facility] [address] [place] [address] 58605- 2591 Aug, Low back pain M54.5 [facility] [address] [address] Aug, Bipolar disorder, unspecified F31.9 [facility] [address] [address] 9[address] Aug, [facility] [address] [address] 2580 Aug, [facility] [address] [address]6 Aug, Uncontrolled type 2 diabetes mellitus with hyperglycemia, without long-term current use of insulin E11.65 ; Non-healing surgical wound, initial encounter T81.89XA ; Cellulitis of abdominal wall L03.311 ; Hyperlipidemia E78.5 ; Chronic obstructive pulmonary disease, unspecified COPD type J44.9 and Tobacco use Z72.0 [facility] [id number] [place] [address] 22452- 4095 Aug, [facility] [id number] [place] [address] 46558- 5470 Jul, [facility] [id number] [place] [address] 89462- 0423 Jul, [facility] [id number] [place] [address] 09699- 9135 Jul, 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 2 diabetes mellitus 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, 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 [facility] [id number] [place] [address] 38787- 3875 Jun, Bipolar disorder, unspecified F31.9 [place] [id number] [place] [address] 03541- 8247 Jun, [facility] [id number] [place] [address] 62133- 1125 Jun, Bipolar disorder, unspecified F31.9 [place] [id number] [place] [address] 25927- 8437 Jun, Mood disorder F39 [place] [id number] [place] [address] 78917- 8764 Jun, [facility] [id number] [place] [address] 81637- 3015 May, Fissure in skin of foot R23.4 ; Callus of foot L84 and Type 2 diabetes mellitus 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, 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 [facility] [id number] [place] [address] 33086- 3308 May, Mood disorder F39 [facility] [id number] [place] [address] 87445- 1686 Apr, [facility] [id number] [place] [address] 77723- 7814 Apr, Cough R05 and Tobacco use Z72.0 [facility] [id number] [place] [address] 22910- 9184 Apr, Cough R05 and Tobacco use Z72.0 [facility] [id number] [place] [address] 89538- 9264 Apr, Mood disorder F39 [facility] [id number] [place] [address] 30447- 1137 Apr, Low back pain M54.5 [facility] [id number] [place] [address] 70931- 6628 Apr, Uncontrolled type 2 diabetes mellitus with hyperglycemia, without long-term current use of insulin E11.65 [facility] [id number] [place] [address] 18295- 5669 Apr, Uncontrolled type 2 diabetes mellitus with hyperglycemia, without long-term current use of insulin E11.65 [facility] [id number] [place] [address] 37826- 9395 Mar, Bipolar disorder, unspecified F31.9 [facility] [id number] [place] [address] 40564- 4040 Mar, [facility] [id number] [place] [address] 92956- 4065 Mar, Bipolar disorder, unspecified F31.9 [facility] [id number] [place] [address] 92567- 6387 Mar, Mood disorder F39 [facility] [id number] [place] [address] 31281- 1084 Feb, [facility] [id number] [place] [address] 25305- 6151 Feb, [facility] [id number] [place] [address] 30237- 9037 Feb, [facility] [address] 37520- 2203 Feb, Bipolar disorder, unspecified F31.9 [place] [address] 78488- 7400 Feb, Uncontrolled type 2 diabetes mellitus with hyperglycemia, without long-term current use of insulin E11.65 ; Encounter for immunization Z23 ; Vasovagal syncope R55 and Low back pain M54.5 [place] [address] 72309- 6912 Jan, Bipolar disorder, unspecified F31.9 [place] [address] 88896- 1146 Jan, [place] [address] 38117- 7747 Jan, Fatigue, unspecified type R53.83 ; Nocturnal hypoxia G47.34 ; Leukocytosis D72.829 ; Other chronic gastritis without hemorrhage K29.50 ; Uncontrolled type 2 diabetes mellitus with hyperglycemia, without long-term current use of insulin E11.65 ; Alternating constipation and diarrhea R19.8 and Chronic obstructive pulmonary disease, unspecified COPD type J44.9 [place] [address] 45109- 6999 Jan, [place] [address] 06095- 6181 Jan, Leukocytosis D72.829 [place] [address] 07798- 2654 Jan, Mood disorder F39 [place] [address] 15910- 2886 Dec, Bipolar disorder, unspecified F31.9 [place] [address] 27640- 1188 Dec, [facility] [address] 59589 -[address]77 Dec, Acute gastritis without bleeding K29.00 [facility] [address] [address]- 9461 18 Dec, 2016 Leukocytosis D72.829 [place] [facility] [id number] [place] [address] 81369- 5004 Dec, [facility] [id number] [place] [address] 05449- 6092 Dec, Dental examination Z01.20 [facility] [id number] [place] [address] 17069- 0299 Dec, [facility] [id number] [place] [address] 13734- 2076 Dec, Leukocytosis D72.829 [place] [facility] [id number] [place] [address] 56460- 9061 Dec, Uncontrolled type 2 diabetes mellitus with hyperglycemia, without long-term current use of insulin E11.65 [place] [id number] [place] [address] 90719- 7558 Nov, Dental examination Z01.20 [place] [id number] [place] [address] 61859- 0311 Nov, [facility] [facility] [id number] [place] [address] 01012- 1441 Nov, Major depressive disorder, recurrent episode, moderate F33.1 [facility] [id number] [place] [address] 60397- 7830 Nov, Leukocytosis D72.829 [place] [id number] [place] [address] 77570- 3016 Nov, Mood disorder F39 [place] [id number] [place] [address] 33336- 3436 Nov, Other osteoarthritis of spine, cervical region M47.892 and Uncontrolled type 2 diabetes mellitus with hyperglycemia, without long-term current use of insulin E11.65 [place] [id number] [place] [address] 90298- 6319 Nov, Leukocytosis D72.829 and Elevated serum glucose R73.9 [facility] [id number] [place] [address] 84781- 6845 October, Elevated serum glucose R73.9 [facility] [id number] [place] [address] 54981- 1371 October, Mood disorder F39 [facility] [address] 37539- 3754 Sep, Major depressive disorder, recurrent episode, moderate F33.1 [place] [id number] [place] [address] 22746- 6325 Sep, Mood disorder F39 [facility] [id number] [place] [address] 58112- 3395 Aug, [facility] [id number] [place] [address] 55910- 5200 Jul, Major depressive disorder, recurrent episode, moderate F33.1 [facility] [id number] [place] [address] 60697- 2680 Jul, Mood disorder F39 [facility] [id number] [place] [address] 68491- 3084 Jul, [facility] [id number] [place] [address] 72552- 7689 Jul, History of [place] (myocardial infarction) I25.2 ; Hyperlipidemia E78.5 ; Prediabetes R73.09 ; Chronic obstructive pulmonary disease, unspecified COPD type J44.9 and Tobacco use Z72.0 [facility] [id number] [place] [address] 37709- 6975 Jun, [facility] [id number] [place] [address] 77593- 5747 Jun, Mood disorder F39 [facility] [id number] [place] [address] 99237- 9536 Jun, [facility] [address] [place] [address] 92677- 9906 May, Major depressive disorder, recurrent episode, moderate F33.1 and Primary insomnia F51.01 [facility] [address], [place] [address]- 2614 May, Mood disorder F39 [facility] [id number] [place] [address] 39313- 0917 Apr, [facility] [id number] [place] [address] 44300- 5163 Apr, Mood disorder F39 [facility] [id number] [place] [address] 89092- 4720 Apr, [facility] [id number] [place] [address] 85101- 2545 Apr, [facility] [id number] [place] [address] 49187- 8439 Apr, Chronic obstructive pulmonary disease, unspecified COPD type J44.9 and Non-seasonal allergic rhinitis due to other allergic trigger J30.89 [facility] [address] [place] [address] 76947- 3984 Apr, Mood disorder F39 [facility] [address] [place] [address] 87968- 2709 Apr, Major depressive disorder, recurrent episode, moderate F33.1 and PTSD (post-traumatic stress disorder) F43.10 [facility] [address], [place] [address]- 1921 Apr, [facility] [id number] [place] [address] 38784- 5527 07 Apr, 2016 [facility] [address], [place] [address]- 9748 04 Apr, 2016 Chest pain, unspecified type R07.9 ; Chronic obstructive pulmonary disease, unspecified COPD type J44.9 ; Hyperlipidemia, unspecified hyperlipidemia type E78.5 and Tobacco use Z72.0 [place] [id number] [place] [address] 25281- 2230 Mar, Mood disorder F39 [facility] [id number] [place] [address] 74632- 4715 Mar, Mood disorder F39 [place] [address] 31034- 4997 Mar, Other osteoarthritis of spine, cervical region M47.892 [place] [id number] [place] [address] 67519- 6373 Mar, Tear of right rotator cuff, unspecified tear extent M75.101 [place] [id number] [place] [address] 62675- 7971 Mar, [place] [address] 87200- 8891 Mar, Bipolar II disorder F31.81 [place] [id number] [place] [address] 11606- 7266 Mar, [place] [id number] [place] [address] 57823- 4332 Feb, Impingement syndrome of right shoulder M75.41 ; Tear of right rotator cuff, unspecified tear extent M75.101 and Loose body in right elbow M24.021 [place] [id number] [place] [address] 46757- 9304 Jan, [place] [id number] [place] [address] 32670- 5371 Jan, [place] [id number] [place] [address] 19499- 9751 Jan, Prediabetes R73.09 ; Other chronic pain G89.29 and Pain in right shoulder M25.511 [place] [id number] [place] [address] 52933- 7674 Dec, [place] [id number] [place] [address] 68258- 3956 Dec, Heartburn R12 and Chest discomfort R07.89 [place] [id number] [place] [address] 06003- 8537 Dec, Impingement syndrome of right shoulder M75.41 and 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, 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 [place] [id number] [place] [address] 02875- 2520 Nov, [facility] [id number] [place] [address] 91216- 5384 Nov, Leukocytosis D72.829 [place] [id number] [place] [address] 84028- 3128 Nov, [facility] [id number] [place] [address] 23893- 8785 Nov, Enlarged lymph node R59.9 ; Chronic obstructive pulmonary disease, unspecified COPD type J44.9 ; Low back pain M54.5 ; Neuropathy G62.9 and Closed nondisplaced fracture of sternal end of right clavicle, sequela S42.017S [place] [id number] [place] [address] 54517- 7024 October, [facility] [id number] [place] [address] 76646- 3419 October, [facility] [facility] [id number] [place] [address] 45852- 1934 Sep, [facility] [id number] [place] [address] 17558- 7701 Aug, Double vision H53.2 ; Occipital headache R51 ; Chronic obstructive pulmonary disease, unspecified COPD type J44.9 and Gastroesophageal reflux disease, esophagitis presence not specified K21.9 [place] [id number] [place] [address] 90546- 9612 Aug, [place] [address] [place] [address] 96474- 6305 Jul, Enlarged lymph node in neck R59.0 [facility] [id number] [place] [address] 30029- 0203 Jul, [facility] [id number] [place] [address] 35699- 3486 Jul, Chronic obstructive pulmonary disease, unspecified COPD type J44.9 ; Tobacco use Z72.0 ; Leukocytosis D72.829 ; Hyperlipidemia E78.5 and Neck abscess L02.11 [place] [id number] [place] [address] 43818- 6023 Jun, Shortness of breath R06.02 [place] [id number] [place] [address] 75402- 4968 17 May, 2015 Leukocytosis D72.829 and Shortness of breath R06.02 [place] [id number] [place] [address] 37525- 9741 09 May, 2015 Low back pain M54.5 ; Hyperlipidemia E78.5 ; Leukocytosis D72.829 ; Other osteoarthritis of spine, cervical region M47.892 and Shortness of breath R06.02 [place] [id number] [place] [address] 20493- 2727 18 Feb, 2015 Chest pain 786.50 ; Tobacco use 305.1 ; Back pain 724.5 and Hyperlipemia 272.4 [place] [id number] [place] [address] 81719- 0366 Jan, [address] 75729- 3616 Jan, Chronic low back pain 724.2 and Degenerative arthritis of cervical spine 721.0 [place] [id number] [place] [address] 60763- 2701 Jan, Chronic low back pain 724.2 and Neck pain 723.1 [place] [id number] [place] [address] 87113- 1419 Dec, Chronic low back pain 724.2 and Neck pain 723.1 [place] [id number] [place] [address] 82796- 9348 Nov, Chest pain 786.50 ; Dyspnea 786.09 ; Tobacco use 305.1 and Back pain 724.[address] 42742- 1530 Nov, [address] 47004- 6505 Nov, Disability examination V68.01 and Muscle pain 729.1 [place] [id number] [place] [address] 46475- 6251 October, History of [place] (myocardial infarction) 412 ; Hyperlipidemia LDL goal < 100 272.4 ; Leukocytosis 288.60 and Glucose intolerance (pre-diabetes ) 790.29 [place] [id number] [place] [address] 96741- 6043 October, Chest pain 786.50 ; Chronic low back pain 724.2 ; History of [place] (myocardial infarction) 412 and Neuropathy 355.9 [place] [id number] [place] [address] 23212- 7908 October, Chronic low back pain 724.2 ; Chest pain 786.50 ; History of [place] (myocardial infarction) 412 and Neuropathy 355.9 IMMUNIZATIONS No Known Immunizations SOCIAL HISTORY Never Assessed REASON FOR VISIT Refill Request PLAN OF CARE VITAL SIGNS MEDICATIONS Medication Instructions Dosage Frequency Start Date End Date Duration Status Cyclobenzaprine HCl 10 mg Orally Three times a day 1 tablet as needed 8h 30 days Active RESULTS No Results PROCEDURES [...]
--- OUTSIDE RECORDS SUMMARY | 2017-11-07 07:32 | XMS REPORT ---
Author Author KINJAL DORIS [facility] Address [address] [place] [address] Care Team Providers Care Booth Cleaner Name Role Phone DORIS LAYTON Unavailable PROBLEMS Type Condition ICD9-CM Code FYA23-TW Code Onset Dates Condition Status SNOMED Code Problem Tobacco use Z72.0 Active 158326550 Problem Tear of right rotator cuff, unspecified tear extent M75.101 Active 298084551 Problem Enlarged lymph node R59.9 Active 28400351 Problem Nocturnal hypoxia G47.34 Active 740334818 Problem Hiatal hernia K44.9 Active 18335020 Problem Bipolar disorder, unspecified F31.9 Active 63132669 Problem Panlobular emphysema J43.1 Active 9429812 Problem Hyperplastic colonic polyp, unspecified part of colon K63.5 Active 392465469 Problem Mood disorder F39 Active 89506249 Problem Hyperlipidemia, unspecified hyperlipidemia type E78.5 Active 48317812 Problem Uncontrolled type 2 diabetes mellitus with hyperglycemia, without long -term current use of insulin E11.65 Active 550484710 Problem Non-seasonal allergic rhinitis due to other allergic trigger J30.89 Active 48912180 Problem Internal hemorrhoids K64.8 Active 67971478 Problem GERD with esophagitis K21.0 Active 267492326 Problem External hemorrhoids K64.4 Active 45114633 Problem Other chronic gastritis without hemorrhage K29.50 Active 2012804 Problem Low back pain M54.5 Active 214982135 Problem Leukocytosis D72.829 Active 594263424 Problem Other osteoarthritis of spine, cervical region M47.892 Active 675222461 Problem Hyperlipidemia E78.5 Active 25667454 Problem History of NC (myocardial infarction) I25.2 Active 626693936 Problem Neuropathy G62.9 Active 292392171 ALLERGIES No Information ENCOUNTERS Encounter Location Date Diagnosis [facility] [address] [facility] [id number] [address] Nov, [facility] [address] [address] Aug, [facility] [id number] [place] [address] 87778- 6888 Aug, Bipolar disorder, unspecified F31.9 [facility] [id number] [place] [address] 25260- 8352 Aug, [facility] [id number] [place] [address] 81510- 5529 Aug, [place] [id number] [place] [address] 18393- 3473 Aug, Uncontrolled type 2 diabetes mellitus with hyperglycemia, without long-term current use of insulin E11.65 ; Non-healing surgical wound, initial encounter T81.89XA ; Cellulitis of abdominal wall L03.311 ; Hyperlipidemia E78.5 ; Chronic obstructive pulmonary disease, unspecified COPD type J44.9 and Tobacco use Z72.0 [place] [id number] [place] [address] 06683- 0227 Aug, [place] [id number] [place] [address] 06362- 1199 Jul, [place] [id number] [place] [address] 86898- 5705 Jul, [place] [id number] [place] [address] 59410- 1801 Jul, Type 2 diabetes mellitus 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, unspecified manager 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 insulin use status E11.40 [place] [address] [address] 4[address] Jun, Bipolar disorder, unspecified F31.9 [facility] [id number] [place] [address] 60286- 0012 Jun, [facility] [address] [address] 7830 17 Juliano, 2018 Bipolar disorder, unspecified F31.9 [place] [id number] [place] [address] 24721- 3873 Jun, Mood disorder F39 [place] [id number] [place] [address] 72379- 6077 Jun, [place] [id number] [place] [address] 31000- 3297 May, Fissure in skin of foot R23.4 ; Callus of foot L84 and Type 2 diabetes mellitus 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, unspecified manager 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 insulin use status E11.40 [place] [id number] [place] [address] 26263- 6959 May, Mood disorder F39 [place] [id number] [place] [address] 88399- 9248 Apr, [place] [address] 47544- 8406 Apr, Cough R05 and Tobacco use Z72.0 [place] [id number] [place] [address] 48733- 8563 Apr, Cough R05 and Tobacco use Z72.0 [place] [id number] [place] [address] 25864- 6270 06 Apr, 2017 Mood disorder F39 [place] [id number] [place] [address] 87687- 7847 Apr, Low back pain M54.5 [place] [id number] [place] [address] 07695- 3130 06 Apr, 2017 Uncontrolled type 2 diabetes mellitus with hyperglycemia, without long-term current use of insulin E11.65 [place] [id number] [place] [address] 55807- 0130 Apr, Uncontrolled type 2 diabetes mellitus with hyperglycemia, without long-term current use of insulin E11.65 [place] [id number] [place] [address] 96073- 8230 Mar, Bipolar disorder, unspecified F31.9 [facility] [address] [address] 5781 Mar, [facility] [address] [address] 0977 Mar, Bipolar disorder, unspecified F31.9 [facility] [id number] [place] [address] 00242- 4914 Mar, Mood disorder F39 [facility] [id number] [place] [address] 13209- 7433 Feb, [facility] [id number] [place] [address] 17235- 5085 Feb, [facility] [id number] [place] [address] 78608- 2745 Feb, [facility] [id number] [place] [address] 67291- 0644 Feb, Bipolar disorder, unspecified F31.9 [facility] [address] [address] 7520 Feb, Uncontrolled type 2 diabetes mellitus with hyperglycemia, without long-term current use of insulin E11.65 ; Encounter for immunization Z23 ; Vasovagal syncope R55 and Low back pain M54.5 [place] [id number] [place] [address] 75264- 3679 Jan, Bipolar disorder, unspecified F31.9 [facility] [address] [address] 3667 Jan, [place] [id number] [place] [address] 18039- 8618 Jan, Fatigue, unspecified type R53.83 ; Nocturnal hypoxia G47.34 ; Leukocytosis D72.829 ; Other chronic gastritis without hemorrhage K29.50 ; Uncontrolled type 2 diabetes mellitus with hyperglycemia, without long-term current use of insulin E11.65 ; Alternating constipation and diarrhea R19.8 and Chronic obstructive pulmonary disease, unspecified COPD type J44.9 [facility] [id number] [place] [address] 87504- 7131 Jan, [facility] [id number] [place] [address] 40204- 5325 Jan, Leukocytosis D72.829 [facility] [id number] [place] [address] 13678- 0847 Jan, Mood disorder F39 [facility] [id number] [place] [address] 17129- 8536 Dec, Bipolar disorder, unspecified F31.9 [facility] [id number] [place] [address] 16547- 2821 Dec, [facility] [id number] [place] [address] 66873 -1071 Dec, Acute gastritis without bleeding K29.00 [facility] [id number] [place] [address] 67234- 7611 Dec, Leukocytosis D72.829 [facility] [id number] [place] [address] 12958- 3763 Dec, [facility] [id number] [place] [address] 61245- 1632 Dec, Dental examination Z01.20 [facility] [id number] [place] [address] 02186- 8758 Dec, [facility] [id number] [place] [address] 80419- 5487 Dec, Leukocytosis D72.829 [facility] [id number] [place] [address] 16182- 2376 Dec, Uncontrolled type 2 diabetes mellitus with hyperglycemia, without long-term current use of insulin E11.65 [place] [id number] [place] [address] 37359- 6171 Nov, Dental examination Z01.20 [place] [address] [address]- 1682 28 Nov, 2016 [place] [id number] [place] [address] 29452- 0531 13 Nov, 2016 Major depressive disorder, recurrent episode, moderate F33.1 [place] [id number] [place] [address] 31086- 2340 06 Nov, 2016 Leukocytosis D72.829 [place] [id number] [place] [address] 18149- 5523 05 Nov, 2016 Mood disorder F39 [place] [id number] [place] [address] 62006- 9441 Nov, Other osteoarthritis of spine, cervical region M47.892 and Uncontrolled type 2 diabetes mellitus with hyperglycemia, without long-term current use of insulin E11.65 [place] [id number] [place] [address] 24070- 6090 Nov, Leukocytosis D72.829 and Elevated serum glucose R73.9 [place] [id number] [place] [address] 33674- 2388 October, Elevated serum glucose R73.9 [place] [id number] [place] [address] 86453- 3168 October, Mood disorder F39 [place] [id number] [place] [address] 36513- 4214 Sep, Major depressive disorder, recurrent episode, moderate F33.1 [place] [address] [address]- 3222 Sep, Mood disorder F39 [place] [id number] [place] [address] 55605- 4953 Aug, [place] [address] [address]- 8282 Jul, Major depressive disorder, recurrent episode, moderate F33.1 [place] [id number] [address]- 9936 Jul, Mood disorder F39 [facility] [id number] [place] [address] 41738- 3347 Jul, [facility] [address] [address]- 7557 Jul, History of NC (myocardial infarction) I25.2 ; Hyperlipidemia E78.5 ; Prediabetes R73.09 ; Chronic obstructive pulmonary disease, unspecified COPD type J44.9 and Tobacco use Z72.0 [facility] [id number] [place] [address] 35187- 2258 Jun, [facility] [id number] [place] [address] 70687- 8476 Jun, Mood disorder F39 [facility] [id number] [place] [address] 42200- 1314 Jun, [facility] [id number] [place] [address] 05960- 8213 May, Major depressive disorder, recurrent episode, moderate F33.1 and Primary insomnia F51.01 [facility] [address] [address]- 6473 May, Mood disorder F39 [facility] [address] [address]- 2685 Apr, [facility] [address] [address]- 5505 Apr, Mood disorder F39 [facility] [address] [address]- 1732 Apr, [facility] [address] [address]- 3525 Apr, [facility] [address] [address]- 0920 Apr, Chronic obstructive pulmonary disease, unspecified COPD type J44.9 and Non-seasonal allergic rhinitis due to other allergic trigger J30.89 [facility] [id number] [place] [address] 93950- 0656 11 Apr, 2016 Mood disorder F39 [facility] [id number] [place] [address] 88118- 9023 Apr, Major depressive disorder, recurrent episode, moderate F33.1 and PTSD (post-traumatic stress disorder) F43.10 [facility] [id number] [place] [address] 36364- 3583 Apr, [facility] [address] 10517- 7237 Apr, [facility] [id number] [place] [address] 26358- 3383 Apr, Chest pain, unspecified type R07.9 ; Chronic obstructive pulmonary disease, unspecified COPD type J44.9 ; Hyperlipidemia, unspecified hyperlipidemia type E78.5 and Tobacco use Z72.0 [facility] [id number] [place] [address] 94036- 6442 Mar, Mood disorder F39 [facility] [id number] [place] [address] 50413- 9971 Mar, Mood disorder F39 [facility] [id number] [place] [address] 30910- 5332 Mar, Other osteoarthritis of spine, cervical region M47.892 [facility] [id number] [place] [address] 91260- 7744 Mar, Tear of right rotator cuff, unspecified tear extent M75.101 [facility] [id number] [place] [address] 19843- 4366 Mar, [facility] [id number] [place] [address] 28806- 5959 Mar, Bipolar II disorder F31.81 [facility] [address] [place] [address]- 1943 Mar, [place] [id number] [place] [address] 94681- 8023 Feb, Impingement syndrome of right shoulder M75.41 ; Tear of right rotator cuff, unspecified tear extent M75.101 and Loose body in right elbow M24.021 [place] [address] 93728- 8445 Jan, [place] [address] 10360- 1445 Jan, [place] [address] 38751- 0839 Jan, Prediabetes R73.09 ; Other chronic pain G89.29 and Pain in right shoulder M25.511 [place] [address] 76270- 3790 Dec, [place] [address] 69532- 8916 Dec, Heartburn R12 and Chest discomfort R07.89 [place] [id number] [place] [address] 52540- 5308 Dec, Impingement syndrome of right shoulder M75.41 and 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, 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 [place] [id number] [place] [address] 74394- 8481 Nov, [place] [id number] [place] [address] 96313- 1202 Nov, Leukocytosis D72.829 [place] [id number] [place] [address] 65231- 0303 Nov, [place] [id number] [place] [address] 92428- 5396 Nov, Enlarged lymph node R59.9 ; Chronic obstructive pulmonary disease, unspecified COPD type J44.9 ; Low back pain M54.5 ; Neuropathy G62.9 and Closed nondisplaced fracture of sternal end of right clavicle, sequela S42.017S [place] [id number] [place] [address] 72123- 4772 October, [place] [address] 47865- 9237 October, [place] [address] 47616- 1455 Sep, [place] [address] 78633- 0115 Aug, Double vision H53.2 ; Occipital headache R51 ; Chronic obstructive pulmonary disease, unspecified COPD type J44.9 and Gastroesophageal reflux disease, esophagitis presence not specified K21.9 [place] [address] 48441- 5555 Aug, [place] [address] 14802- 9114 Jul, Enlarged lymph node in neck R59.0 [place] [address] 65074- 4795 Jul, [place] [address] 44581- 9681 Jul, Chronic obstructive pulmonary disease, unspecified COPD type J44.9 ; Tobacco use Z72.0 ; Leukocytosis D72.829 ; Hyperlipidemia E78.5 and Neck abscess L02.11 [place] [id number] [place] [address] 23556- 2814 Jun, Shortness of breath R06.02 [place] [id number] [place] [address] 66148- 1611 May, Leukocytosis D72.829 and Shortness of breath R06.02 [place] [address] 27722- 7849 May, Low back pain M54.5 ; Hyperlipidemia E78.5 ; Leukocytosis D72.829 ; Other osteoarthritis of spine, cervical region M47.892 and Shortness of breath R06.02 [place] [address] 54009- 9286 Feb, Chest pain 786.50 ; Tobacco use 305.1 ; Back pain 724.5 and Hyperlipemia 272.4 [place] [address] 20906- 3624 Jan, [address] 40472- 5203 Jan, Chronic low back pain 724.2 and Degenerative arthritis of cervical spine 721.[address] 09185- 5979 Jan, Chronic low back pain 724.2 and Neck pain 723.1 [place] [address] 79095- 9817 Dec, Chronic low back pain 724.2 and Neck pain 723.[address] 39791- 3062 Nov, Chest pain 786.50 ; Dyspnea 786.09 ; Tobacco use 305.1 and Back pain 724.[address] 76355- 0695 Nov, [address] 15539- 8776 Nov, Disability examination V68.01 and Muscle pain 729.[address] 40421- 4858 October, History of NC (myocardial infarction) 412 ; Hyperlipidemia LDL goal < 100 272.4 ; Leukocytosis 288.60 and Glucose intolerance (pre-diabetes ) 790.[address] 01882- 4536 October, Chest pain 786.50 ; Chronic low back pain 724.2 ; History of NC (myocardial infarction) 412 and Neuropathy 355.9 [facility] [address] [facility] [id number] [address]- 8576 October, Chronic low back pain 724.2 ; Chest pain 786.50 ; History of NC (myocardial infarction) 412 and Neuropathy 355.9 IMMUNIZATIONS No Known Immunizations SOCIAL HISTORY Never Assessed REASON FOR VISIT Patient Concerns PLAN OF CARE VITAL SIGNS MEDICATIONS Unknown [...]
--- OUTSIDE RECORDS SUMMARY | 2017-11-07 07:33 | XMS REPORT ---
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 Name Role Phone ANCELMO Valdivia Unavailable PROBLEMS Type Condition ICD9-CM Code QEM45-WF Code Onset Dates Condition Status SNOMED Code Problem Tobacco use Z72.0 Active 932163856 Problem Tear of right rotator cuff, unspecified tear extent M75.101 Active 266580181 Problem Enlarged lymph node R59.9 Active 30999315 Problem Nocturnal hypoxia G47.34 Active 733925585 Problem Hiatal hernia K44.9 Active 25424474 Problem Bipolar disorder, unspecified F31.9 Active 38797361 Problem Panlobular emphysema J43.1 Active 6689241 Problem Hyperplastic colonic polyp, unspecified part of colon K63.5 Active 515705051 Problem Mood disorder F39 Active 55267817 Problem Hyperlipidemia, unspecified hyperlipidemia type E78.5 Active 16759120 Problem Uncontrolled type 2 diabetes mellitus with hyperglycemia, without long -term current use of insulin E11.65 Active 758669624 Problem Non-seasonal allergic rhinitis due to other allergic trigger J30.89 Active 87926188 Problem Internal hemorrhoids K64.8 Active 73973104 Problem GERD with esophagitis K21.0 Active 961673817 Problem External hemorrhoids K64.4 Active 62789561 Problem Other chronic gastritis without hemorrhage K29.50 Active 3870195 Problem Low back pain M54.5 Active 073897718 Problem Leukocytosis D72.829 Active 374700321 Problem Other osteoarthritis of spine, cervical region M47.892 Active 129693082 Problem Hyperlipidemia E78.5 Active 84871162 Problem History of MT (myocardial infarction) I25.2 Active 338706308 Problem Neuropathy G62.9 Active 060485919 ALLERGIES Substance Reaction Event Type Date Status Incruse Ellipta Unknown Drug Allergy Dec, Active Tetracycline HCl nausea and vomiting Drug Allergy Dec, Active Spiriva HandiHaler Suicidal ideation Drug Allergy Dec, Active Ampicillin anaphylaxis Drug Allergy Dec, Active strawberries Unknown Non Drug Allergy Dec, Active penicillin anaphylaxis Non Drug Allergy Dec, Active ENCOUNTERS Encounter Location Date Diagnosis [place] [id number] [place] [address] 65415- 8845 Nov, [place] [address] [place] [id number] [place] [address] 56473- 5070 Sep, [place] [address] [place] [id number] [place] [address] 71111- 7070 Aug, Low back pain M54.5 [place] [address] [place] [id number] [place] [address] 85789- 0650 Aug, Bipolar disorder, unspecified F31.9 [place] [address] [place] [id number] [place] [address] 48024- 8095 Aug, [place] [address] [place] [id number] [place] [address] 91201- 2871 Aug, [place] [address] [place] [id number] [place] [address] 04463- 6133 Aug, Uncontrolled type 2 diabetes mellitus with hyperglycemia, without long-term current use of insulin E11.65 ; Non-healing surgical wound, initial encounter T81.89XA ; Cellulitis of abdominal wall L03.311 ; Hyperlipidemia E78.5 ; Chronic obstructive pulmonary disease, unspecified COPD type J44.9 and Tobacco use Z72.0 [place] [address] [place] [address] 03668- 5339 Aug, [place] [address] [place] [id number] [place] [address] 73744- 6790 Jul, [place] [address] [place] [id number] [place] [address] 13379- 2484 Jul, [place] [address] [place] [id number] [address] 8720 Jul, Type 2 diabetes mellitus 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, unspecified custodial insulin use status E11.40 [facility] [address] [address] 3908 Jun, Bipolar disorder, unspecified F31.9 [facility] [address] [address] 0548 Jun, [facility] [id number] [place] [address] 32955- 4563 Jun, Bipolar disorder, unspecified F31.9 [facility] [id number] [place] [address] 90082- 7272 Jun, Mood disorder F39 [facility] [address] [place] [id number] [place] [address] 32117- 1162 Jun, [facility] [address] [place] [id number] [place] [address] 68394- 2089 May, Fissure in skin of foot R23.4 ; Callus of foot L84 and Type 2 diabetes mellitus 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, 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 [facility] [id number] [place] [address] 10192- 4573 May, Mood disorder F39 [facility] [address] [place] [id number] [place] [address] 86988- 9182 Apr, [facility] [id number] [place] [address] 81784- 9036 Apr, Cough R05 and Tobacco use Z72.0 [facility] [id number] [place] [address] 52957- 6664 Apr, Cough R05 and Tobacco use Z72.0 [facility] [address] [place] [id number] [place] [address] 03909- 2912 Apr, Mood disorder F39 [facility] [address] [place] [id number] [place] [address] 83524- 7622 Apr, Low back pain M54.5 [facility] [address] [place] [id number] [address] 1483 Apr, Uncontrolled type 2 diabetes mellitus with hyperglycemia, without long-term current use of insulin E11.65 [facility] [address] [place] [id number] [place] [address] 75062- 3712 Apr, Uncontrolled type 2 diabetes mellitus with hyperglycemia, without long-term current use of insulin E11.65 [facility] [address] [place] [id number] [place] [address] 22012- 2289 Mar, Bipolar disorder, unspecified F31.9 [facility] [address] [place] [id number] [place] [address] 64383- 5612 Mar, [facility] [address] [place] [id number] [place] [address] 65434- 9952 Mar, Bipolar disorder, unspecified F31.9 [facility] [address] [place] [id number] [place] [address] 19553- 3613 Mar, Mood disorder F39 [facility] [address] [place] [id number] [place] [address] 82482- 6314 Feb, [facility] [address] [place] [id number] [place] [address] 85628- 4721 Feb, [facility] [address] [place] [id number] [place] [address] 29080- 3312 Feb, [facility] [address] [place] [id number] [place] [address] 67908- 3063 Feb, Bipolar disorder, unspecified F31.9 [facility] [address] [place] [address] 12068- 7535 Feb, Uncontrolled type 2 diabetes mellitus with hyperglycemia, without long-term current use of insulin E11.65 ; Encounter for immunization Z23 ; Vasovagal syncope R55 and Low back pain M54.5 [facility] [id number] [place] [address] 23029- 9915 Jan, Bipolar disorder, unspecified F31.9 [facility] [address] [place] [id number] [place] [address] 58608- 0311 Jan, [facility] [address] [place] [id number] [place] [address] 83595- 7607 Jan, Fatigue, unspecified type R53.83 ; Nocturnal hypoxia G47.34 ; Leukocytosis D72.829 ; Other chronic gastritis without hemorrhage K29.50 ; Uncontrolled type 2 diabetes mellitus with hyperglycemia, without long-term current use of insulin E11.65 ; Alternating constipation and diarrhea R19.8 and Chronic obstructive pulmonary disease, unspecified COPD type J44.9 [place] [address] [place] [id number] [place] [address] 60033- 0567 Jan, [place] [address] 22777- 4097 Jan, Leukocytosis D72.829 [place] [address] [place] [id number] [place] [address] 56746- 5548 Jan, Mood disorder F39 [place] [address] [place] [id number] [place] [address] 96102- 7722 Dec, Bipolar disorder, unspecified F31.9 [place] [address] [place] [id number] [place] [address] 20756- 2912 Dec, [facility] [address] [place] [id number] [place] [address] 97147 -2219 Dec, Acute gastritis without bleeding K29.00 [place] [address] [place] [id number] [place] [address] 50959- 1172 Dec, Leukocytosis D72.829 [place] [address] [place] [id number] [place] [address] 02300- 6687 Dec, [place] [address] 41245- 4296 Dec, Dental examination Z01.20 [place] [address] [place] [id number] [place] [address] 55077- 2455 Dec, [place] [id number] [place] [address] 30167- 7437 Dec, Leukocytosis D72.829 [place] [address] [place] [id number] [place] [address] 07416- 3866 Dec, Uncontrolled type 2 diabetes mellitus with hyperglycemia, without long-term current use of insulin E11.65 [place] [id number] [place] [address] 08868- 8858 Nov, Dental examination Z01.20 [place] [address] [place] [id number] [place] [address] 64538- 4806 Nov, [place] [address] [place] [id number] [place] [address] 82116- 8249 Nov, Major depressive disorder, recurrent episode, moderate F33.1 [place] [address] [place] [id number] [place] [address] 84178- 3239 Nov, Leukocytosis D72.829 [place] [address] [place] [id number] [place] [address] 40836- 8264 Nov, Mood disorder F39 [place] [address] [place] [id number] [place] [address] 69603- 8321 Nov, Other osteoarthritis of spine, cervical region M47.892 and Uncontrolled type 2 diabetes mellitus with hyperglycemia, without long-term current use of insulin E11.65 [place] [address] [place] [address] 73885- 7037 Nov, Leukocytosis D72.829 and Elevated serum glucose R73.9 [place] [id number] [place] [address] 40418- 7833 October, Elevated serum glucose R73.9 [place] [address] [place] [id number] [place] [address] 85624- 8096 October, Mood disorder F39 [place] [id number] [place] [address] 76272- 1712 Sep, Major depressive disorder, recurrent episode, moderate F33.1 [facility] [address] [address]- 9910 Sep, Mood disorder F39 [facility] [address] [place] [id number] [place] [address] 53623- 4715 Aug, [facility] [address] [place] [id number] [place] [address] 18036- 4248 Jul, Major depressive disorder, recurrent episode, moderate F33.1 [facility] [address] [place] [id number] [place] [address] 62729- 1689 Jul, Mood disorder F39 [facility] [address] [place] [id number] [place] [address] 17399- 4627 Jul, [facility] [address] [place] [id number] [place] [address] 13729- 9479 Jul, History of MT (myocardial infarction) I25.2 ; Hyperlipidemia E78.5 ; Prediabetes R73.09 ; Chronic obstructive pulmonary disease, unspecified COPD type J44.9 and Tobacco use Z72.0 [facility] [address] [place] [id number] [place] [address] 09571- 5079 Jun, [facility] [address] [place] [id number] [place] [address] 94218- 0116 Jun, Mood disorder F39 [facility] [id number] [place] [address] 54600- 9300 Jun, [facility] [address] [place] [id number] [place] [address] 14789- 1815 May, Major depressive disorder, recurrent episode, moderate F33.1 and Primary insomnia F51.01 [facility] [address] [place] [id number] [place] [address] 66339- 6885 May, Mood disorder F39 [facility] [id number] [place] [address] 28460- 6362 Apr, [facility] [address] [place] [id number] [place] [address] 93683- 4006 Apr, Mood disorder F39 [facility] [address] [address]- 3349 Apr, [facility] [id number] [place] [address] 56933- 5266 Apr, [facility] [address] [place] [address] 98110- 5742 Apr, Chronic obstructive pulmonary disease, unspecified COPD type J44.9 and Non-seasonal allergic rhinitis due to other allergic trigger J30.89 [facility] [address] [place] [id number] [place] [address] 25212- 1774 11 Apr, 2016 Mood disorder F39 [facility] [address] [place] [id number] [place] [address] 70701- 0803 Apr, Major depressive disorder, recurrent episode, moderate F33.1 and PTSD (post-traumatic stress disorder) F43.10 [facility] [id number] [place] [address] 99646- 2380 07 Apr, 2016 [facility] [id number] [place] [address] 90376- 1230 Apr, [facility] [id number] [place] [address] 97195- 0068 04 Apr, 2016 Chest pain, unspecified type R07.9 ; Chronic obstructive pulmonary disease, unspecified COPD type J44.9 ; Hyperlipidemia, unspecified hyperlipidemia type E78.5 and Tobacco use Z72.0 [facility] [id number] [place] [address] 77980- 8354 Mar, Mood disorder F39 [facility] [id number] [place] [address] 35007- 7481 13 Mar, 2016 Mood disorder F39 [facility] [id number] [place] [address] 92580- 5510 10 Mar, 2016 Other osteoarthritis of spine, cervical region M47.892 [facility] [address] [place] [id number] [place] [address] 63319- 5483 Mar, Tear of right rotator cuff, unspecified tear extent M75.101 [facility] [address] [place] [id number] [place] [address] 12482- 6770 Mar, [facility] [address] [place] [id number] [place] [address] 79484- 2393 Mar, Bipolar II disorder F31.81 [place] [address] [place] [id number] [place] [address] 65000- 7337 Mar, [place] [address] [place] [id number] [place] [address] 26020- 2243 Feb, Impingement syndrome of right shoulder M75.41 ; Tear of right rotator cuff, unspecified tear extent M75.101 and Loose body in right elbow M24.021 [place] [address] [place] [id number] [place] [address] 32193- 6633 Jan, [place] [address] [place] [id number] [place] [address] 35184- 4269 Jan, [place] [address] [place] [id number] [place] [address] 37182- 6537 Jan, Prediabetes R73.09 ; Other chronic pain G89.29 and Pain in right shoulder M25.511 [place] [address] [place] [id number] [place] [address] 54931- 9560 Dec, [place] [address] [place] [id number] [place] [address] 41603- 0625 Dec, Heartburn R12 and Chest discomfort R07.89 [place] [address] [place] [id number] [place] [address] 77800- 8063 Dec, Impingement syndrome of right shoulder M75.41 and 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, 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 [place] [address] [place] [id number] [place] [address] 51966- 1326 Nov, [place] [address] [place] [id number] [place] [address] 32091- 3336 Nov, Leukocytosis D72.829 [place] [address] [place] [id number] [place] [address] 98840- 1294 Nov, [place] [address] [place] [id number] [place] [address] 31148- 7944 Nov, Enlarged lymph node R59.9 ; Chronic obstructive pulmonary disease, unspecified COPD type J44.9 ; Low back pain M54.5 ; Neuropathy G62.9 and Closed nondisplaced fracture of sternal end of right clavicle, sequela S42.017S [place] [address] [place] [id number] [place] [address] 17875- 2638 October, [place] [address] [place] [id number] [place] [address] 76710- 8203 October, [place] [address] [place] [id number] [place] [address] 59235- 8463 Sep, [place] [address] [place] [id number] [place] [address] 69967- 6427 Aug, Double vision H53.2 ; Occipital headache R51 ; Chronic obstructive pulmonary disease, unspecified COPD type J44.9 and Gastroesophageal reflux disease, esophagitis presence not specified K21.9 [place] [address] [place] [address] 43991- 9944 Aug, [place] [address] [place] [id number] [place] [address] 24791- 2906 Jul, Enlarged lymph node in neck R59.0 [place] [address] [place] [id number] [place] [address] 76565- 3301 Jul, [place] [address] [place] [id number] [place] [address] 58795- 2175 Jul, Chronic obstructive pulmonary disease, unspecified COPD type J44.9 ; Tobacco use Z72.0 ; Leukocytosis D72.829 ; Hyperlipidemia E78.5 and Neck abscess L02.11 [place] [address] [place] [id number] [place] [address] 12950- 7279 14 Jun, 2015 Shortness of breath R06.02 [place] [address] [place] [id number] [place] [address] 54367- 1050 17 May, 2015 Leukocytosis D72.829 and Shortness of breath R06.02 [place] [address] 78417- 4395 09 May, 2015 Low back pain M54.5 ; Hyperlipidemia E78.5 ; Leukocytosis D72.829 ; Other osteoarthritis of spine, cervical region M47.892 and Shortness of breath R06.02 [place] [address] 66337- 5998 18 Feb, 2015 Chest pain 786.50 ; Tobacco use 305.1 ; Back pain 724.5 and Hyperlipemia 272.4 [place] [address] 20945- 8700 Jan, [place] [address] 65423- 8852 Jan, Chronic low back pain 724.2 and Degenerative arthritis of cervical spine 721.0 [place] [address] [place] [id number] [place] [address] 31651- 2221 Jan, Chronic low back pain 724.2 and Neck pain 723.1 [place] [address] 87912- 9501 Dec, Chronic low back pain 724.2 and Neck pain 723.1 [place] [address] 39588- 3245 Nov, Chest pain 786.50 ; Dyspnea 786.09 ; Tobacco use 305.1 and Back pain 724.5 [place] [address] [place] [id number] [place] [address] 43442- 7944 Nov, [place] [address] [place] [address] [address]- 2720 Nov, Disability examination V68.01 and Muscle pain 729.1 [facility] [address] [place] [address] 59654- 5883 October, History of MT (myocardial infarction) 412 ; Hyperlipidemia LDL goal < 100 272.4 ; Leukocytosis 288.60 and Glucose intolerance (pre-diabetes ) 790.29 [place] [address] [place] [address] 54375- 4917 October, Chest pain 786.50 ; Chronic low back pain 724.2 ; History of MT (myocardial infarction) 412 and Neuropathy 355.9 [place] [address] [place] [address] 74988- 6685 October, Chronic low back pain 724.2 ; Chest pain 786.50 ; History of MT (myocardial infarction) 412 and Neuropathy 355.9 IMMUNIZATIONS No Known Immunizations SOCIAL HISTORY Never Assessed REASON FOR VISIT N/V/D that started yesterday. RLQ and LLQ pain for the past 2 days. pain comes and goes. maurice PLAN OF CARE Activity Details Follow Up prn Reason: VITAL SIGNS Height 68 in 2016-12-26 Weight 240.0 lbs 2016-12-26 Temperature 98.6 degrees Fahrenheit 2016-12-26 Heart Rate 88 bpm 2016-12-26 Respiratory Rate 20 2016-12-26 BMI 36.49 kg/m2 2016-12-26 Blood pressure systolic 132 mmHg 2016-12-26 Blood pressure diastolic 78 mmHg 2016-12-26 MEDICATIONS Medication Instructions Dosage Frequency Start Date End Date Duration Status Albuterol Sulfate (2.5 MG/3ML) 0.083% Inhalation 4 times a day 3 ml 6h Active Crestor 10 MG Orally Once a day 1 tablet 24h Active Symbicort 160-4.5 MCG/ACT Inhalation Twice a day 2 puffs 12h 24 Aug, 2015 Active Metformin HCl 500 mg ICD10 E11.65 Twice a day 2 tablet with meals 12h 03 Nov, 2016 Active Singulair 10 mg Orally Once a day 1 tablet in the evening 24h 30 Active Dexilant 60 MG Orally Once a day 1 capsule 24h Active Cyclobenzaprine HCl 10 mg Orally Three times a day 1 tablet as needed 8h Active Nebulizer - Active ZyrTEC 10 MG Orally Once a day 1 tablet 24h Active Prilosec 20 mg Orally twice per day 1 capsule Dec, 30 day(s) Active Proventil HFA 108 (90 Base) MCG/ACT Inhalation every 4 hrs 2 puffs as needed 4h 12 Jul, 2015 Active Pantoprazole Sodium 40 mg Orally Once a day 1 tablet 24h 30 Active Blood Glucose Monitor System w/Device DX- E 11.65 2 times a day- 3 times weekly. test blood sugar Nov, Active Carafate 1 GM Orally 4 times a day x 2 weeks then prn 1 tablet on an empty stomach Active Blood Glucose Test - and lancets. DX E11.65 2 times a day- 3 times weekly. test blood sugar Nov, Active Trazodone HCl 150 MG TAKE ONE-HALF TO ONE TABLET BY MOUTH AT BEDTIME NEEDED Active Oxygen inhalation Portable 2 liters per minute Active Citalopram Hydrobromide 20 MG Orally Once a day 1.5 tablets 24h 30 days Active Aspir-81 81 MG Orally Once a day 1 tablet 24h Active RESULTS No Results PROCEDURES No Known [...]
--- OUTSIDE RECORDS SUMMARY | 2017-11-07 07:34 | XMS REPORT ---
Author Author KINJAL DORIS [facility] Address [address] [place] [address] Care Team Providers Care Java [id number] Technical Lead Name Role Phone DORIS LAYTON Unavailable PROBLEMS Type Condition ICD9-CM Code [id number] Code Onset Dates Condition Status SNOMED Code Problem Tobacco use Z72.0 Active 486940169 Problem Tear of right rotator cuff, unspecified tear extent M75.101 Active 360849209 Problem Enlarged lymph node R59.9 Active 91190684 Problem Nocturnal hypoxia G47.34 Active 920966150 Problem Hiatal hernia K44.9 Active 89689800 Problem Bipolar disorder, unspecified F31.9 Active 37401363 Problem Panlobular emphysema J43.1 Active 5825350 Problem Hyperplastic colonic polyp, unspecified part of colon K63.5 Active 838089899 Problem Mood disorder F39 Active 01258031 Problem Hyperlipidemia, unspecified hyperlipidemia type E78.5 Active 90064115 Problem Uncontrolled type 2 diabetes mellitus with hyperglycemia, without long -term current use of insulin E11.65 Active 775736213 Problem Non-seasonal allergic rhinitis due to other allergic trigger J30.89 Active 36399456 Problem Internal hemorrhoids K64.8 Active 05258229 Problem GERD with esophagitis K21.0 Active 246595924 Problem External hemorrhoids K64.4 Active 67540468 Problem Other chronic gastritis without hemorrhage K29.50 Active 4410855 Problem Low back pain M54.5 Active 495837304 Problem Leukocytosis D72.829 Active 957969320 Problem Other osteoarthritis of spine, cervical region M47.892 Active 161255588 Problem Hyperlipidemia E78.5 Active 79526664 Problem History of PR (myocardial infarction) I25.2 Active 152738823 Problem Neuropathy G62.9 Active 272294185 ALLERGIES No Information ENCOUNTERS Encounter Location Date Diagnosis [facility] [address] [facility] [id number] [address] Nov, [facility] [address] [address] Sep, [facility] [id number] [place] [address] 04230- 9680 Sep, [facility] [id number] [place] [address] 26973- 9100 Aug, Low back pain M54.5 [facility] [id number] [place] [address] 08009- 1405 Aug, Bipolar disorder, unspecified F31.9 [facility] [id number] [place] [address] 10283- 4736 Aug, [facility] [id number] [place] [address] 20074- 4398 Aug, [facility] [id number] [place] [address] 06286- 8998 Aug, Uncontrolled type 2 diabetes mellitus with hyperglycemia, without long-term current use of insulin E11.65 ; Non-healing surgical wound, initial encounter T81.89XA ; Cellulitis of abdominal wall L03.311 ; Hyperlipidemia E78.5 ; Chronic obstructive pulmonary disease, unspecified COPD type J44.9 [address] Tobacco use Z72.0 [facility] [address] [address] Aug, [facility] [address] [address] Jul, [facility] [address] [address] Jul, 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 [address] [address] 56[address] Jun, Bipolar disorder, unspecified F31.9 [facility] [id number] [place] [address] 49627- 5666 Jun, [facility] [id number] [place] [address] 67058- 0263 Jun, Bipolar disorder, unspecified F31.9 [facility] [id number] [place] [address] 93276- 8897 Jun, Mood disorder F39 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 [id number] [place] [address] 33467- 0377 Apr, [facility] [id number] [place] [address] 12498- 9471 Apr, Cough R05 and Tobacco use Z72.0 [facility] [id number] [place] [address] 56256- 0431 Apr, Cough R05 and Tobacco use Z72.0 [facility] [id number] [place] [address] 62398- 2952 Apr, Mood disorder F39 [facility] [id number] [place] [address] 10784- 7956 Apr, Low back pain M54.5 [facility] [id number] [place] [address] 51398- 0311 Apr, Uncontrolled type 2 diabetes mellitus with hyperglycemia, without long-term current use of insulin E11.65 [facility] [id number] [place] [address] 28605- 7937 Apr, Uncontrolled type 2 diabetes mellitus with hyperglycemia, without long-term current use of insulin E11.65 [facility] [id number] [place] [address] 37992- 5443 Mar, Bipolar disorder, unspecified F31.9 [facility] [id number] [place] [address] 98142- 2837 Mar, [facility] [id number] [place] [address] 95181- 7594 Mar, Bipolar disorder, unspecified F31.9 [facility] [id number] [place] [address] 98268- 4845 Mar, Mood disorder F39 [facility] [id number] [place] [address] 16971- 7802 Feb, [facility] [id number] [place] [address] 85071- 9867 Feb, [facility] [id number] [place] [address] 65653- 4026 Feb, [facility] [id number] [place] [address] 82995- 8790 Feb, Bipolar disorder, unspecified F31.9 [facility] [id number] [place] [address] 99049- 4657 Feb, Uncontrolled type 2 diabetes mellitus with hyperglycemia, without long-term current use of insulin E11.65 ; Encounter for immunization Z23 ; Vasovagal syncope R55 and Low back pain M54.5 [facility] [id number] [place] [address] 50996- 9470 Jan, Bipolar disorder, unspecified F31.9 [facility] [id number] [place] [address] 87847- 8353 Jan, [facility] [id number] [place] [address] 92314- 5041 Jan, Fatigue, unspecified type R53.83 ; Nocturnal hypoxia G47.34 ; Leukocytosis D72.829 ; Other chronic gastritis without hemorrhage K29.50 ; Uncontrolled type 2 diabetes mellitus with hyperglycemia, without long-term current use of insulin E11.65 ; Alternating constipation and diarrhea R19.8 and Chronic obstructive pulmonary disease, unspecified COPD type J44.9 [place] [place] [address] 28044- 8663 Jan, [facility] [address] 51397- 8378 Jan, Leukocytosis D72.829 [facility] [address] 64164- 7639 Jan, Mood disorder F39 [facility] [address] 96124- 4056 Dec, Bipolar disorder, unspecified F31.9 [facility] [address] 57936- 8161 Dec, [facility] [address] 69322 -3932 Dec, Acute gastritis without bleeding K29.00 [facility] [address] 41993- 0038 Dec, Leukocytosis D72.829 [facility] [address] 17378- 5002 Dec, [facility] [id number] [place] [address] 24824- 7479 Dec, Dental examination Z01.20 [facility] [address] 90724- 4621 Dec, [facility] [address] 08244- 7112 Dec, Leukocytosis D72.829 [facility] [place] [address] 14341- 2378 Dec, Uncontrolled type 2 diabetes mellitus with hyperglycemia, without long-term current use of insulin E11.65 [facility] [id number] [place] [address] 03395- 8858 Nov, Dental examination Z01.20 [facility] [id number] [place] [address] 13033- 0326 Nov, [facility] [id number] [place] [address] 29529- 7440 Nov, Major depressive disorder, recurrent episode, moderate F33.1 [facility] [id number] [place] [address] 87149- 4180 Nov, Leukocytosis D72.829 [facility] [id number] [place] [address] 84595- 9234 Nov, Mood disorder F39 [facility] [id number] [place] [address] 06144- 4095 Nov, Other osteoarthritis of spine, cervical region M47.892 and Uncontrolled type 2 diabetes mellitus with hyperglycemia, without long-term current use of insulin E11.65 [facility] [id number] [place] [address] 47528- 0943 Nov, Leukocytosis D72.829 and Elevated serum glucose R73.9 [facility] [id number] [place] [address] 75536- 2955 October, Elevated serum glucose R73.9 [facility] [id number] [place] [address] 86055- 8431 October, Mood disorder F39 [facility] [id number] [place] [address] 40142- 5515 Sep, Major depressive disorder, recurrent episode, moderate F33.1 [facility] [address] [address]- 2123 Sep, Mood disorder F39 [facility] [id number] [address]- 0491 Aug, [facility] [address] [address]- 0107 Jul, Major depressive disorder, recurrent episode, moderate F33.1 [facility] [address] [address]- 4325 Jul, Mood disorder F39 [facility] [id number] [address]- 6461 Jul, [facility] [address] [address]- 2599 Jul, History of PR (myocardial infarction) I25.2 ; Hyperlipidemia E78.5 ; Prediabetes R73.09 ; Chronic obstructive pulmonary disease, unspecified COPD type J44.9 [address]0 [facility] [address] [address]- 9572 Jun, [facility] [address] [address]- 4258 Jun, Mood disorder F39 [facility] [address] [address]- 9143 Jun, [facility] [address] [address]- 8606 May, Major depressive disorder, recurrent episode, moderate F33.1 and Primary insomnia F51.01 [facility] [address] [address]- 9082 May, Mood disorder F39 [facility] [address] [address]- 8774 Apr, [facility] [address] [address]- 5230 Apr, Mood disorder F39 [facility] [address] [address]- 1604 Apr, [facility] [id number] [place] [address] 37583- 6511 Apr, [facility] [address] 46927- 4372 Apr, Chronic obstructive pulmonary disease, unspecified COPD type J44.9 and Non-seasonal allergic rhinitis due to other allergic trigger J30.89 [facility] [address] 20175- 2545 11 Apr, 2016 Mood disorder F39 [place] [address] 06947- 4759 10 Apr, 2016 Major depressive disorder, recurrent episode, moderate F33.1 and PTSD (post-traumatic stress disorder) F43.10 [facility] [id number] [place] [address] 88151- 0430 Apr, [facility] [address] 69720- 9288 Apr, [facility] [id number] [place] [address] 90470- 8897 Apr, Chest pain, unspecified type R07.9 ; Chronic obstructive pulmonary disease, unspecified COPD type J44.9 ; Hyperlipidemia, unspecified hyperlipidemia type E78.5 and Tobacco use Z72.0 [facility] [id number] [place] [address] 83292- 4990 Mar, Mood disorder F39 [facility] [id number] [place] [address] 47087- 4830 Mar, Mood disorder F39 [facility] [id number] [place] [address] 62574- 4815 Mar, Other osteoarthritis of spine, cervical region M47.892 [facility] [id number] [place] [address] 75609- 7796 06 Mar, 2016 Tear of right rotator cuff, unspecified tear extent M75.101 [facility] [address] [place] [address]- 2271 Mar, [facility] [id number] [place] [address] 28022- 2438 Mar, Bipolar II disorder F31.81 [facility] [id number] [place] [address] 80408- 9928 Mar, [facility] [address] 42961- 1168 Feb, Impingement syndrome of right shoulder M75.41 ; Tear of right rotator cuff, unspecified tear extent M75.101 and Loose body in right elbow M24.021 [facility] [address] 61537- 7174 Jan, [facility] [address] 85981- 2184 Jan, [facility] [address] 80089- 7220 Jan, Prediabetes R73.09 ; Other chronic pain G89.29 and Pain in right shoulder M25.511 [facility] [address] 05410- 6663 Dec, [facility] [id number] [place] [address] 00574- 7681 Dec, Heartburn R12 and Chest discomfort R07.89 [facility] [address] 34884- 5101 Dec, Impingement syndrome of right shoulder M75.41 and 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, 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 [facility] [id number] [place] [address] 85767- 1938 Nov, [facility] [address] 63955- 0006 Nov, Leukocytosis D72.829 [facility] [address] [place] [address]- 6327 Nov, [facility] [id number] [place] [address] 56089- 5254 Nov, Enlarged lymph node R59.9 ; Chronic obstructive pulmonary disease, unspecified COPD type J44.9 ; Low back pain M54.5 ; Neuropathy G62.9 and Closed nondisplaced fracture of sternal end of right clavicle, sequela S42.017S [facility] [place] [id number] [place] [address] 15892- 1772 October, [facility] [address] 37963- 7409 October, [facility] [address] 08426- 9962 Sep, [facility] [id number] [place] [address] 06190- 3443 Aug, Double vision H53.2 ; Occipital headache R51 ; Chronic obstructive pulmonary disease, unspecified COPD type J44.9 and Gastroesophageal reflux disease, esophagitis presence not specified K21.9 [facility] [id number] [place] [address] 10369- 2119 Aug, [facility] [id number] [place] [address] 16565- 1183 Jul, Enlarged lymph node in neck R59.0 [facility] [id number] [place] [address] 90743- 5960 Jul, [facility] [id number] [place] [address] 96450- 9003 Jul, Chronic obstructive pulmonary disease, unspecified COPD type J44.9 ; Tobacco use Z72.0 ; Leukocytosis D72.829 ; Hyperlipidemia E78.5 and Neck abscess L02.11 [facility] [id number] [place] [address] 49285- 2026 Jun, Shortness of breath R06.02 [facility] [id number] [place] [address] 14803- 2068 17 May, 2015 Leukocytosis D72.829 and Shortness of breath R06.02 [facility] [id number] [place] [address] 85309- 2737 09 May, 2015 Low back pain M54.5 ; Hyperlipidemia E78.5 ; Leukocytosis D72.829 ; Other osteoarthritis of spine, cervical region M47.892 and Shortness of breath R06.02 [facility] [id number] [place] [address] 69129- 2296 18 Feb, 2015 Chest pain 786.50 ; Tobacco use 305.1 ; Back pain 724.5 and Hyperlipemia 272.4 [facility] [id number] [place] [address] 11367- 6170 Jan, [facility] [place] [address] 02891- 6910 Jan, Chronic low back pain 724.2 and Degenerative arthritis of cervical spine 721.0 [facility] [id number] [place] [address] 20566- 6977 Jan, Chronic low back pain 724.2 and Neck pain 723.1 [facility] [id number] [place] [address] 39918- 6164 Dec, Chronic low back pain 724.2 and Neck pain 723.1 [facility] [id number] [place] [address] 55194- 3590 Nov, Chest pain 786.50 ; Dyspnea 786.09 ; Tobacco use 305.1 and Back pain 724.5 [facility] [address] 92683- 8555 Nov, [facility] [place] [id number] [place] [address] 05826- 4966 04 Nov, 2014 Disability examination V68.01 and Muscle pain 729.1 [facility] [address] [place] [address]- 4848 October, History of PR (myocardial infarction) 412 ; Hyperlipidemia LDL goal < 100 272.4 ; Leukocytosis 288.60 and Glucose intolerance (pre-diabetes ) 790.29 [facility] [address] [facility] [id number] [place] [address]- 9549 October, Chest pain 786.50 ; Chronic low back pain 724.2 ; History of PR (myocardial infarction) [address] [facility] [address] [facility] [id number] [place] [address]- 0930 October, Chronic low back pain 724.2 ; Chest pain 786.50 ; History of PR (myocardial infarction) 412 and Neuropathy 355.9 IMMUNIZATIONS No Known Immunizations SOCIAL HISTORY Never Assessed REASON FOR VISIT Patient concerns PLAN OF CARE VITAL SIGNS MEDICATIONS [...]
--- OUTSIDE RECORDS SUMMARY | 2017-11-07 07:35 | XMS REPORT ---
Author Author ERWIN LEO [facility] Address [address] [place] [address] Care Team Providers Care Child Adolescent Psychiatrist Name Role Phone ERWIN LEO Unavailable PROBLEMS Type Condition ICD9-CM Code BOK08-RU Code Onset Dates Condition Status SNOMED Code Problem Tobacco use Z72.0 Active 174212977 Problem Tear of right rotator cuff, unspecified tear extent M75.101 Active 509142007 Problem Enlarged lymph node R59.9 Active 17587846 Problem Nocturnal hypoxia G47.34 Active 509667610 Problem Hiatal hernia K44.9 Active 89281764 Problem Bipolar disorder, unspecified F31.9 Active 65368632 Problem Panlobular emphysema J43.1 Active 1174048 Problem Hyperplastic colonic polyp, unspecified part of colon K63.5 Active 076392563 Problem Mood disorder F39 Active 02775204 Problem Hyperlipidemia, unspecified hyperlipidemia type E78.5 Active 37568006 Problem Uncontrolled type 2 diabetes mellitus with hyperglycemia, without long -term current use of insulin E11.65 Active 912143435 Problem Non-seasonal allergic rhinitis due to other allergic trigger J30.89 Active 30755626 Problem Internal hemorrhoids K64.8 Active 52104518 Problem GERD with esophagitis K21.0 Active 773742812 Problem External hemorrhoids K64.4 Active 02999217 Problem Other chronic gastritis without hemorrhage K29.50 Active 9690856 Problem Low back pain M54.5 Active 514638962 Problem Leukocytosis D72.829 Active 748643287 Problem Other osteoarthritis of spine, cervical region M47.892 Active 658085582 Problem Hyperlipidemia E78.5 Active 19313181 Problem History of MO (myocardial infarction) I25.2 Active 879805494 Problem Neuropathy G62.9 Active 914905088 ALLERGIES No Information ENCOUNTERS Encounter Location Date Diagnosis [facility] [address] [facility] [id number] [address] Nov, [facility] [address], [place] [address] Nov, [facility] [id number] [place] [address] 42857- 1075 Sep, [facility] [id number] [place] [address] 31655- 9522 Sep, [facility] [id number] [place] [address] 33056- 7563 Sep, Leukocytosis D72.829 [facility] [id number] [place] [address] 61482- 3235 Sep, [facility] [id number] [place] [address] 67256- 5852 Sep, [facility] [id number] [place] [address] 52663- 4655 Sep, [facility] [id number] [place] [address] 74060- 1467 Aug, Low back pain M54.5 [facility] [id number] [place] [address] 87075- 7320 Aug, Bipolar disorder, unspecified F31.9 [facility] [id number] [place] [address] 96832- 5620 Aug, [facility] [id number] [place] [address] 97925- 6933 Aug, [facility] [id number] [place] [address] 24832- 6451 Aug, Uncontrolled type 2 diabetes mellitus with hyperglycemia, without long-term current use of insulin E11.65 ; Non-healing surgical wound, initial encounter T81.89XA ; Cellulitis of abdominal wall L03.311 ; Hyperlipidemia E78.5 ; Chronic obstructive pulmonary disease, unspecified COPD type J44.9 and Tobacco use Z72.0 [facility] [id number] [place] [address] 83006- 0051 Aug, [facility] [address], [place] [address] 3761 Jul, [facility] [id number] [place] [address] 864265- 9498 Jul, [facility] [address], [place] [address] 82[address] Jul, Type 2 diabetes mellitus 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, unspecified ocean transportation intermediary insulin use status E11.40 [facility] [address], [place] [address] Jun, Bipolar disorder, unspecified F31.9 [facility] [id number] [place] [address] 37396- 1976 Jun, [facility] [id number] [place] [address] 20481- 2392 Jun, Bipolar disorder, unspecified F31.9 [facility] [address], [place] [address] 8771 Jun, Mood disorder F39 [facility] [id number] [place] [address] 02887- 7062 Jun, [facility] [address], [place] [address] 3[address] May, Fissure in skin of foot R23.4 ; Callus of foot L84 and Type 2 diabetes mellitus 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, unspecified ocean transportation intermediary insulin use status E11.40 [facility] [address], [place] [address] 3985 May, Mood disorder F39 [facility] [address], [place] [address] 4885 Apr, [facility] [address], [place] [address] 7688 Apr, Cough R05 and Tobacco use Z72.0 [facility] [id number] [address] 5083 Apr, Cough R05 and Tobacco use Z72.0 [facility] [id number] [place] [address] 79112- 4544 Apr, Mood disorder F39 [facility] [id number] [place] [address] 24905- 3016 Apr, Low back pain M54.5 [facility] [id number] [place] [address] 11004- 7922 Apr, Uncontrolled type 2 diabetes mellitus with hyperglycemia, without long-term current use of insulin E11.65 [place] [id number] [place] [address] 36399- 9146 Apr, Uncontrolled type 2 diabetes mellitus with hyperglycemia, without long-term current use of insulin E11.65 [place] [id number] [place] [address] 92385- 9335 Mar, Bipolar disorder, unspecified F31.9 [facility] [id number] [place] [address] 74386- 5351 Mar, [facility] [id number] [place] [address] 63371- 8873 Mar, Bipolar disorder, unspecified F31.9 [place] [id number] [place] [address] 98647- 0587 Mar, Mood disorder F39 [facility] [id number] [place] [address] 79382- 0782 Feb, [facility] [id number] [place] [address] 94168- 7662 Feb, [facility] [id number] [place] [address] 62151- 8269 Feb, [facility] [id number] [place] [address] 19138- 0784 Feb, Bipolar disorder, unspecified F31.9 [place] [id number] [place] [address] 82821- 1695 Feb, Uncontrolled type 2 diabetes mellitus with hyperglycemia, without long-term current use of insulin E11.65 ; Encounter for immunization Z23 ; Vasovagal syncope R55 and Low back pain M54.5 [place] [address] 94327- 8878 Jan, Bipolar disorder, unspecified F31.9 [place] [address] 81498- 3159 Jan, [place] [address] 47775- 1257 Jan, Fatigue, unspecified type R53.83 ; Nocturnal hypoxia G47.34 ; Leukocytosis D72.829 ; Other chronic gastritis without hemorrhage K29.50 ; Uncontrolled type 2 diabetes mellitus with hyperglycemia, without long-term current use of insulin E11.65 ; Alternating constipation and diarrhea R19.8 and Chronic obstructive pulmonary disease, unspecified COPD type J44.9 [place] [address] 24745- 3169 Jan, [place] [address] 26812- 3867 Jan, Leukocytosis D72.829 [place] [address] 47192- 1759 Jan, Mood disorder F39 [place] [id number] [place] [address] 94495- 0059 Dec, Bipolar disorder, unspecified F31.9 [place] [address] 48750- 5364 Dec, [facility] [id number] [place] [address] 48333 -7001 Dec, Acute gastritis without bleeding K29.00 [place] [address] 77969- 3134 Dec, Leukocytosis D72.829 [place] [id number] [place] [address] 81579- 9334 Dec, [place] [id number] [place] [address] 91366- 6275 Dec, Dental examination Z01.20 [facility] [id number] [place] [address] 65349- 9178 11 Dec, 2016 [place] [id number] [place] [address] 48830- 5743 Dec, Leukocytosis D72.829 [place] [id number] [place] [address] 96075- 6312 Dec, Uncontrolled type 2 diabetes mellitus with hyperglycemia, without long-term current use of insulin E11.65 [place] [id number] [place] [address] 55424- 8387 Nov, Dental examination Z01.20 [place] [id number] [place] [address] 51636- 0703 Nov, [place] [id number] [place] [address] 88026- 8413 Nov, Major depressive disorder, recurrent episode, moderate F33.1 [place] [id number] [place] [address] 32615- 6392 Nov, Leukocytosis D72.829 [place] [id number] [place] [address] 62209- 5403 05 Nov, 2016 Mood disorder F39 [place] [id number] [place] [address] 29538- 6412 Nov, Other osteoarthritis of spine, cervical region M47.892 and Uncontrolled type 2 diabetes mellitus with hyperglycemia, without long-term current use of insulin E11.65 [place] [id number] [place] [address] 97714- 2242 Nov, Leukocytosis D72.829 and Elevated serum glucose R73.9 [facility] [address], [place] [address]- 9647 October, Elevated serum glucose R73.9 [facility] [address], [place] [address]- 4047 October, Mood disorder F39 [facility] [address], [place] [address]- 4910 Sep, Major depressive disorder, recurrent episode, moderate F33.1 [facility] [address], [place] [address]- 3311 Sep, Mood disorder F39 [facility] [id number] [place] [address] 59963- 0803 Aug, [facility] [id number] [place] [address] 69054- 0192 Jul, Major depressive disorder, recurrent episode, moderate F33.1 [facility] [address], [place] [address]- 0230 Jul, Mood disorder F39 [facility] [id number] [place] [address] 51259- 7180 Jul, [facility] [address], [place] [address]- 0461 Jul, History of MO (myocardial infarction) I25.2 ; Hyperlipidemia E78.5 ; Prediabetes R73.09 ; Chronic obstructive pulmonary disease, unspecified COPD type J44.9 and Tobacco use Z72.0 [facility] [address], [place] [address]- 7947 Jun, [facility] [id number] [place] [address] 43106- 1380 Jun, Mood disorder F39 [facility] [address], [place] [address]- 7076 Jun, [facility] [id number] [place] [address] 68846- 6848 May, Major depressive disorder, recurrent episode, moderate F33.1 and Primary insomnia F51.01 [facility] [id number] [place] [address] 60321- 3097 May, Mood disorder F39 [facility] [id number] [place] [address] 61746- 8340 Apr, [facility] [id number] [place] [address] 61334- 2389 Apr, Mood disorder F39 [facility] [id number] [place] [address] 15671- 3498 Apr, [facility] [id number] [place] [address] 51171- 6439 Apr, [place] [id number] [place] [address] 78055- 6917 Apr, Chronic obstructive pulmonary disease, unspecified COPD type J44.9 and Non-seasonal allergic rhinitis due to other allergic trigger J30.89 [place] [id number] [place] [address] 64706- 7909 Apr, Mood disorder F39 [place] [id number] [place] [address] 18441- 7194 Apr, Major depressive disorder, recurrent episode, moderate F33.1 and PTSD (post-traumatic stress disorder) F43.10 [place] [id number] [place] [address] 92189- 8437 Apr, [facility] [id number] [place] [address] 74483- 8607 Apr, [place] [id number] [place] [address] 54098- 0775 04 Apr, 2016 Chest pain, unspecified type R07.9 ; Chronic obstructive pulmonary disease, unspecified COPD type J44.9 ; Hyperlipidemia, unspecified hyperlipidemia type E78.5 and Tobacco use Z72.0 [place] [id number] [place] [address] 85592- 7275 Mar, Mood disorder F39 [facility] [id number] [place] [address] 81903- 6339 Mar, Mood disorder F39 [facility] [id number] [place] [address] 27460- 1592 Mar, Other osteoarthritis of spine, cervical region M47.892 [facility] [id number] [place] [address] 08554- 8673 Mar, Tear of right rotator cuff, unspecified tear extent M75.101 [facility] [id number] [place] [address] 68716- 6701 Mar, [place] [id number] [place] [address] 51775- 6347 Mar, Bipolar II disorder F31.81 [place] [id number] [place] [address] 72751- 8711 Mar, [facility] [id number] [place] [address] 61581- 6590 Feb, Impingement syndrome of right shoulder M75.41 ; Tear of right rotator cuff, unspecified tear extent M75.101 and Loose body in right elbow M24.021 [facility] [address], [place] [address]- 9862 Jan, [facility] [id number] [place] [address] 80338- 5622 Jan, [facility] [id number] [place] [address] 52444- 4024 Jan, Prediabetes R73.09 ; Other chronic pain G89.29 and Pain in right shoulder M25.511 [facility] [id number] [place] [address] 16820- 6221 Dec, [facility] [id number] [place] [address] 66906- 2274 Dec, Heartburn R12 and Chest discomfort R07.89 [place] [id number] [place] [address] 75462- 3662 Dec, Impingement syndrome of right shoulder M75.41 and 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, 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 [place] [id number] [place] [address] 51349- 6497 Nov, [place] [address] 88110- 3563 Nov, Leukocytosis D72.829 [place] [address] 10887- 4380 Nov, [place] [id number] [place] [address] 39075- 7029 Nov, Enlarged lymph node R59.9 ; Chronic obstructive pulmonary disease, unspecified COPD type J44.9 ; Low back pain M54.5 ; Neuropathy G62.9 and Closed nondisplaced fracture of sternal end of right clavicle, sequela S42.017S [place] [address] 44279- 2603 October, [place] [id number] [place] [address] 46372- 5143 October, [place] [id number] [place] [address] 55250- 1450 Sep, [place] [id number] [place] [address] 38051- 4290 Aug, Double vision H53.2 ; Occipital headache R51 ; Chronic obstructive pulmonary disease, unspecified COPD type J44.9 and Gastroesophageal reflux disease, esophagitis presence not specified K21.9 [place] [id number] [place] [address] 30675- 9400 Aug, [place] [id number] [place] [address] 09309- 6713 Jul, Enlarged lymph node in neck R59.0 [place] [id number] [place] [address] 17346- 5424 Jul, [place] [address] 21098- 1859 10 Jul, 2015 Chronic obstructive pulmonary disease, unspecified COPD type J44.9 ; Tobacco use Z72.0 ; Leukocytosis D72.829 ; Hyperlipidemia E78.5 and Neck abscess L02.11 [place] [address] 63412- 8652 Jun, Shortness of breath R06.02 [place] [address] 23652- 9285 May, Leukocytosis D72.829 and Shortness of breath R06.[address] 67754- 4121 May, Low back pain M54.5 ; Hyperlipidemia E78.5 ; Leukocytosis D72.829 ; Other osteoarthritis of spine, cervical region M47.892 and Shortness of breath R06.02 [place] [address] 45133- 9485 Feb, Chest pain 786.50 ; Tobacco use 305.1 ; Back pain 724.5 and Hyperlipemia 272.4 [place] [id number] [place] [address] 99296- 2980 Jan, [address] 72925- 7354 Jan, Chronic low back pain 724.2 and Degenerative arthritis of cervical spine 721.[address] 36774- 4282 Jan, Chronic low back pain 724.2 and Neck pain 723.[address] 44712- 1330 Dec, Chronic low back pain 724.2 and Neck pain 723.[address] [place] [address] 07535- 1325 Nov, Chest pain 786.50 ; Dyspnea 786.09 ; Tobacco use 305.1 and Back pain 724.5 [place] [id number] [place] [address] 10692- 5034 Nov, [address] 07348- 2345 Nov, Disability examination V68.01 and Muscle pain 729.[address] 98657- 3743 October, History of MO (myocardial infarction) 412 ; Hyperlipidemia LDL goal < 100 272.4 ; Leukocytosis 288.60 and Glucose intolerance (pre-diabetes ) 790.[address] 36224- 4358 October, Chest pain 786.50 ; Chronic low back pain 724.2 ; History of MO (myocardial infarction) 412 and Neuropathy 355.9 [place] [id number] [place] [address] 33752- 6099 October, Chronic low back pain 724.2 ; Chest pain 786.50 ; History of MO (myocardial infarction) 412 and Neuropathy 355.9 IMMUNIZATIONS No Known Immunizations SOCIAL HISTORY Never Assessed REASON FOR VISIT f/u PLAN OF CARE Activity Details Follow Up 4 Weeks Reason: F/U VITAL SIGNS MEDICATIONS Unknown Medications RESULTS No Results PROCEDURES Procedure Date Ordered Result Body Site Psychotherapy, patient &/family, 45 minutes, established patient Mar 09, 2017 INSTRUCTIONS MEDICATIONS ADMINISTERED No Known [...]
--- OUTSIDE RECORDS SUMMARY | 2017-11-07 07:35 | XMS REPORT ---
Author Author KINJAL DORIS [facility] [address] Address [address] [place] [address] Care Team Providers Care Liquefier Name Role Phone DORIS LAYTON Unavailable PROBLEMS Type Condition ICD9-CM Code TPJ40-OF Code Onset Dates Condition Status SNOMED Code Problem Tobacco use Z72.0 Active 027421138 Problem Tear of right rotator cuff, unspecified tear extent M75.101 Active 693105622 Problem Enlarged lymph node R59.9 Active 53355236 Problem Nocturnal hypoxia G47.34 Active 811530454 Problem Hiatal hernia K44.9 Active 64797381 Problem Bipolar disorder, unspecified F31.9 Active 70023933 Problem Panlobular emphysema J43.1 Active 5371516 Problem Hyperplastic colonic polyp, unspecified part of colon K63.5 Active 071926826 Problem Mood disorder F39 Active 25399214 Problem Hyperlipidemia, unspecified hyperlipidemia type E78.5 Active 82579227 Problem Uncontrolled type 2 diabetes mellitus with hyperglycemia, without long -term current use of insulin E11.65 Active 600859703 Problem Non-seasonal allergic rhinitis due to other allergic trigger J30.89 Active 06187036 Problem Internal hemorrhoids K64.8 Active 54379485 Problem GERD with esophagitis K21.0 Active 359140279 Problem External hemorrhoids K64.4 Active 85749397 Problem Other chronic gastritis without hemorrhage K29.50 Active 9321425 Problem Low back pain M54.5 Active 443509215 Problem Leukocytosis D72.829 Active 675270639 Problem Other osteoarthritis of spine, cervical region M47.892 Active 259125074 Problem Hyperlipidemia E78.5 Active 14583218 Problem History of DE (myocardial infarction) I25.2 Active 124355196 Problem Neuropathy G62.9 Active 909082310 ALLERGIES No Information ENCOUNTERS Encounter Location Date Diagnosis [facility] [address] [facility] [id number] [address] Nov, [facility] [address] [address] 118[address] Sep, [facility] [id number] [place] [address] 21206- 8708 Sep, [facility] [id number] [place] [address] 98610- 8718 Sep, Leukocytosis D72.829 [facility] [id number] [place] [address] 88403- 0168 Sep, [facility] [id number] [place] [address] 16279- 9681 Sep, [facility] [id number] [place] [address] 72241- 9027 Sep, [facility] [id number] [place] [address] 52328- 4393 Aug, Low back pain M54.5 [facility] [id number] [place] [address] 12878- 5046 Aug, Bipolar disorder, unspecified F31.9 [facility] [id number] [place] [address] 54243- 1025 Aug, [facility] [id number] [place] [address] 03629- 0193 Aug, [facility] [id number] [place] [address] 96298- 6783 Aug, Uncontrolled type 2 diabetes mellitus with hyperglycemia, without long-term current use of insulin E11.65 ; Non-healing surgical wound, initial encounter T81.89XA ; Cellulitis of abdominal wall L03.311 ; Hyperlipidemia E78.5 ; Chronic obstructive pulmonary disease, unspecified COPD type J44.9 and Tobacco use Z72.0 [facility] [address] [address] 9246 Aug, [facility] [id number] [place] [address] 44175- 6276 Jul, [facility] [address] [address] 5838 Jul, [facility] [id number] [place] [address] 307452- 5906 Jul, Type 2 diabetes mellitus 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, unspecified jail insulin use status E11.40 [facility] [address] [address] 6208 Jun, Bipolar disorder, unspecified F31.9 [facility] [address] [address] 7771 Jun, [facility] [id number] [place] [address] 436544- 2529 Jun, Bipolar disorder, unspecified F31.9 [facility] [id number] [place] [address] 85926- 1220 Jun, Mood disorder F39 [facility] [address] [address] 3443 Jun, [facility] [id number] [place] [address] 39167- 1918 May, Fissure in skin of foot R23.4 ; Callus of foot L84 and Type 2 diabetes mellitus 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, unspecified jail insulin use status E11.40 [facility] [address] [address] 7533 May, Mood disorder F39 [facility] [address] [address] 0149 Apr, [facility] [id number] [place] [address] 45770- 8547 Apr, Cough R05 and Tobacco use Z72.0 [facility] [address] [address]- 4342 Apr, Cough R05 and Tobacco use Z72.0 [facility] [address] [address]- 6128 Apr, Mood disorder F39 [facility] [id number] [place] [address] 11216- 9676 Apr, Low back pain M54.5 [facility] [address] [address] 7640 Apr, Uncontrolled type 2 diabetes mellitus with hyperglycemia, without long-term current use of insulin E11.65 [facility] [address] [address]- 7593 Apr, Uncontrolled type 2 diabetes mellitus with hyperglycemia, without long-term current use of insulin E11.65 [facility] [address] [address]- 8699 Mar, Bipolar disorder, unspecified F31.9 [facility] [id number] [place] [address] 88206- 2365 Mar, [facility] [id number] [place] [address] 04169- 8582 Mar, Bipolar disorder, unspecified F31.9 [facility] [id number] [place] [address] 49929- 3950 Mar, Mood disorder F39 [facility] [address] [address]- 3927 Feb, [facility] [address] [address]- 5615 Feb, [facility] [address] [address]- 4310 Feb, [facility] [id number] [place] [address] 32151- 5375 Feb, Bipolar disorder, unspecified F31.9 [facility] [address] [address]- 4801 Feb, Uncontrolled type 2 diabetes mellitus with hyperglycemia, without long-term current use of insulin E11.65 ; Encounter for immunization Z23 ; Vasovagal syncope R55 and Low back pain M54.5 [place] [address] 25543- 7813 Jan, Bipolar disorder, unspecified F31.9 [place] [address] 72150- 6491 Jan, [place] [address] 11132- 7549 Jan, Fatigue, unspecified type R53.83 ; Nocturnal hypoxia G47.34 ; Leukocytosis D72.829 ; Other chronic gastritis without hemorrhage K29.50 ; Uncontrolled type 2 diabetes mellitus with hyperglycemia, without long-term current use of insulin E11.65 ; Alternating constipation and diarrhea R19.8 and Chronic obstructive pulmonary disease, unspecified COPD type J44.9 [place] [address] 66176- 6211 Jan, [place] [address] 66328- 8047 Jan, Leukocytosis D72.829 [place] [address] 26897- 6281 Jan, Mood disorder F39 [place] [address] 18280- 4331 Dec, Bipolar disorder, unspecified F31.9 [place] [address] 19929- 0077 Dec, [facility] [address] 81278 -5250 Dec, Acute gastritis without bleeding K29.00 [place] [address] 03724- 4383 Dec, Leukocytosis D72.829 [place] [address] 02021- 5011 Dec, [place] [id number] [place] [address] 70713- 8944 Dec, Dental examination Z01.20 [place] [id number] [place] [address] 34338- 4701 Dec, [place] [id number] [place] [address] 49124- 1040 Dec, Leukocytosis D72.829 [place] [address] 76869- 4370 Dec, Uncontrolled type 2 diabetes mellitus with hyperglycemia, without long-term current use of insulin E11.65 [place] [id number] [place] [address] 07276- 7492 Nov, Dental examination Z01.20 [place] [id number] [place] [address] 53023- 6998 Nov, [place] [id number] [place] [address] 85618- 8389 Nov, Major depressive disorder, recurrent episode, moderate F33.1 [place] [id number] [place] [address] 36352- 0547 Nov, Leukocytosis D72.829 [place] [id number] [place] [address] 60497- 2657 Nov, Mood disorder F39 [place] [id number] [place] [address] 08289- 0055 Nov, Other osteoarthritis of spine, cervical region M47.892 and Uncontrolled type 2 diabetes mellitus with hyperglycemia, without long-term current use of insulin E11.65 [place] [id number] [place] [address] 00471- 9583 Nov, Leukocytosis D72.829 and Elevated serum glucose R73.9 [place] [id number] [place] [address] 86433- 7385 October, Elevated serum glucose R73.9 [facility] [address] [address]- 4966 October, Mood disorder F39 [facility] [address] [address]- 3709 Sep, Major depressive disorder, recurrent episode, moderate F33.1 [facility] [address] [address]- 8609 Sep, Mood disorder F39 [facility] [address] [address]- 7683 Aug, [facility] [id number] [place] [address] 69673- 7388 Jul, Major depressive disorder, recurrent episode, moderate F33.1 [facility] [address] [address]- 0816 Jul, Mood disorder F39 [facility] [address] [address]- 9336 Jul, [facility] [address] [address]- 5318 Jul, History of DE (myocardial infarction) I25.2 ; Hyperlipidemia E78.5 ; Prediabetes R73.09 ; Chronic obstructive pulmonary disease, unspecified COPD type J44.9 and Tobacco use Z72.0 [facility] [address] [address]- 8093 Jun, [facility] [id number] [address]- 2009 Jun, Mood disorder F39 [facility] [address] [address]- 8316 Jun, [facility] [id number] [address]- 6785 May, Major depressive disorder, recurrent episode, moderate F33.1 and Primary insomnia F51.01 [facility] [address] [address]- 8081 15 May, 2016 Mood disorder F39 [facility] [id number] [place] [address] 24000- 9561 Apr, [facility] [id number] [place] [address] 95796- 4761 Apr, Mood disorder F39 [facility] [id number] [place] [address] 96628- 7723 Apr, [facility] [id number] [place] [address] 49278- 5183 Apr, [facility] [id number] [place] [address] 40315- 8354 Apr, Chronic obstructive pulmonary disease, unspecified COPD type J44.9 and Non-seasonal allergic rhinitis due to other allergic trigger J30.89 [facility] [id number] [place] [address] 33299- 8206 11 Apr, 2016 Mood disorder F39 [facility] [id number] [place] [address] 28554- 2703 10 Apr, 2016 Major depressive disorder, recurrent episode, moderate F33.1 and PTSD (post-traumatic stress disorder) F43.10 [facility] [address] [address]- 8392 Apr, [facility] [id number] [place] [address] 02117- 0267 Apr, [facility] [id number] [place] [address] 34822- 2049 Apr, Chest pain, unspecified type R07.9 ; Chronic obstructive pulmonary disease, unspecified COPD type J44.9 ; Hyperlipidemia, unspecified hyperlipidemia type E78.5 and Tobacco use Z72.0 [facility] [address] [address]- 7743 Mar, Mood disorder F39 [place] [id number] [place] [address] 84478- 0809 Mar, Mood disorder F39 [place] [id number] [place] [address] 28263- 9471 Mar, Other osteoarthritis of spine, cervical region M47.892 [place] [id number] [place] [address] 60324- 5133 Mar, Tear of right rotator cuff, unspecified tear extent M75.101 [place] [id number] [place] [address] 24636- 1072 Mar, [place] [address] 07421- 6794 Mar, Bipolar II disorder F31.81 [place] [id number] [place] [address] 75469- 3094 Mar, [place] [id number] [place] [address] 11385- 9743 Feb, Impingement syndrome of right shoulder M75.41 ; Tear of right rotator cuff, unspecified tear extent M75.101 and Loose body in right elbow M24.021 [place] [id number] [place] [address] 35342- 7670 Jan, [place] [id number] [place] [address] 54692- 6607 Jan, [place] [id number] [place] [address] 94528- 8126 Jan, Prediabetes R73.09 ; Other chronic pain G89.29 and Pain in right shoulder M25.511 [place] [id number] [place] [address] 68180- 2504 Dec, [place] [id number] [place] [address] 41955- 2157 Dec, Heartburn R12 and Chest discomfort R07.89 [place] [address] [place] [address]- 8788 Dec, Impingement syndrome of right shoulder M75.41 and 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, 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 [place] [address] [place] [address] 14367- 0427 Nov, [place] [id number] [place] [address] 97179- 7621 Nov, Leukocytosis D72.829 [place] [id number] [place] [address] 67609- 5660 Nov, [place] [id number] [place] [address] 13241- 4654 Nov, Enlarged lymph node R59.9 ; Chronic obstructive pulmonary disease, unspecified COPD type J44.9 ; Low back pain M54.5 ; Neuropathy G62.9 and Closed nondisplaced fracture of sternal end of right clavicle, sequela S42.017S [place] [id number] [place] [address] 11829- 4345 October, [place] [id number] [place] [address] 01753- 7687 October, [place] [id number] [place] [address] 93105- 0419 Sep, [place] [id number] [place] [address] 21906- 7217 Aug, Double vision H53.2 ; Occipital headache R51 ; Chronic obstructive pulmonary disease, unspecified COPD type J44.9 and Gastroesophageal reflux disease, esophagitis presence not specified K21.9 [place] [id number] [place] [address] 50732- 7902 Aug, [place] [id number] [place] [address] 02604- 8239 Jul, Enlarged lymph node in neck R59.0 [place] [address] [place] [address]- 9004 12 Jul, 2015 [place] [address] 23993- 5647 10 Jul, 2015 Chronic obstructive pulmonary disease, unspecified COPD type J44.9 ; Tobacco use Z72.0 ; Leukocytosis D72.829 ; Hyperlipidemia E78.5 and Neck abscess L02.11 [place] [address] 94381- 7998 14 Jun, 2015 Shortness of breath R06.02 [place] [address] 28979- 4220 17 May, 2015 Leukocytosis D72.829 and Shortness of breath R06.02 [place] [address] 19125- 1157 09 May, 2015 Low back pain M54.5 ; Hyperlipidemia E78.5 ; Leukocytosis D72.829 ; Other osteoarthritis of spine, cervical region M47.892 and Shortness of breath R06.02 [place] [id number] [place] [address] 62861- 8621 18 Feb, 2015 Chest pain 786.50 ; Tobacco use 305.1 ; Back pain 724.5 and Hyperlipemia 272.4 [place] [id number] [place] [address] 05685- 9656 Jan, [place] [address] 27177- 5033 Jan, Chronic low back pain 724.2 and Degenerative arthritis of cervical spine 721.0 [place] [id number] [place] [address] 80374- 8898 Jan, Chronic low back pain 724.2 and Neck pain 723.1 [place] [id number] [place] [address] 56474- 1125 Dec, Chronic low back pain 724.2 and Neck pain 723.1 [place] [address] [place] [address]- 7528 Nov, Chest pain 786.50 ; Dyspnea 786.09 ; Tobacco use 305.1 and Back pain 724.5 [place] [address] [place] [address] 26666- 8785 Nov, [facility] [id number] [place] [address] 06212- 9869 Nov, Disability examination V68.01 and Muscle pain 729.1 [place] [id number] [place] [address] 43033- 6709 October, History of DE (myocardial infarction) 412 ; Hyperlipidemia LDL goal < 100 272.4 ; Leukocytosis 288.60 and Glucose intolerance (pre-diabetes ) 790.29 [place] [address] [place] [address] 24869- 3774 October, Chest pain 786.50 ; Chronic low back pain 724.2 ; History of DE (myocardial infarction) 412 and Neuropathy 355.9 [place] [address] [place] [address] 11750- 9002 October, Chronic low back pain 724.2 ; Chest pain 786.50 ; History of DE (myocardial infarction) 412 and Neuropathy 355.9 IMMUNIZATIONS No Known Immunizations SOCIAL HISTORY Never Assessed REASON FOR VISIT Diabetic Shoes PLAN OF CARE VITAL SIGNS MEDICATIONS Unknown [...]
--- OUTSIDE RECORDS SUMMARY | 2017-11-07 07:36 | XMS REPORT ---
Author Author ERWIN LEO [facility] Address [address] [place] [address] Care Team Providers Care Head Of Ict Name Role Phone ERWIN LEO Unavailable PROBLEMS Type Condition ICD9-CM Code XPD24-DQ Code Onset Dates Condition Status SNOMED Code Problem Tobacco use Z72.0 Active 665277534 Problem Tear of right rotator cuff, unspecified tear extent M75.101 Active 093271843 Problem Enlarged lymph node R59.9 Active 77202039 Problem Nocturnal hypoxia G47.34 Active 308930553 Problem Hiatal hernia K44.9 Active 18638510 Problem Bipolar disorder, unspecified F31.9 Active 48836316 Problem Panlobular emphysema J43.1 Active 2615823 Problem Hyperplastic colonic polyp, unspecified part of colon K63.5 Active 763076985 Problem Mood disorder F39 Active 83251571 Problem Hyperlipidemia, unspecified hyperlipidemia type E78.5 Active 63102210 Problem Uncontrolled type 2 diabetes mellitus with hyperglycemia, without long -term current use of insulin E11.65 Active 327257759 Problem Non-seasonal allergic rhinitis due to other allergic trigger J30.89 Active 65114486 Problem Internal hemorrhoids K64.8 Active 84397478 Problem GERD with esophagitis K21.0 Active 969983619 Problem External hemorrhoids K64.4 Active 52051669 Problem Other chronic gastritis without hemorrhage K29.50 Active 7981979 Problem Low back pain M54.5 Active 014540248 Problem Leukocytosis D72.829 Active 043836895 Problem Other osteoarthritis of spine, cervical region M47.892 Active 312826424 Problem Hyperlipidemia E78.5 Active 91491149 Problem History of [place] (myocardial infarction) I25.2 Active 151718402 Problem Neuropathy G62.9 Active 846559065 ALLERGIES No Information ENCOUNTERS Encounter Location Date Diagnosis [facility] [address] [facility] [id number] [address] Nov, [facility] [address], [place] [address] Sep, [facility] [address] [place] [id number] [place] [address] 79447- 9307 Sep, [facility] [address] [place] [address] 61032- 0280 Aug, Low back pain M54.5 [facility] [id number] [place] [address] 89190- 9389 Aug, Bipolar disorder, unspecified F31.9 [facility] [id number] [place] [address] 53835- 3221 Aug, [facility] [id number] [place] [address] 10562- 5563 Aug, [facility] [id number] [place] [address] 60354- 6071 Aug, Uncontrolled type 2 diabetes mellitus with hyperglycemia, without long-term current use of insulin E11.65 ; Non-healing surgical wound, initial encounter T81.89XA ; Cellulitis of abdominal wall L03.311 ; Hyperlipidemia E78.5 ; Chronic obstructive pulmonary disease, unspecified COPD type J44.9 and Tobacco use Z72.0 [facility] [address] [address] Aug, [facility] [address] [address] Jul, [facility] [address] [address] 2485 Jul, [facility] [id number] [place] [address] 23428- 3288 Jul, Type 2 diabetes mellitus 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, unspecified alf insulin use status E11.40 [facility] [address] [address] Jun, Bipolar disorder, unspecified F31.9 [facility] [address] [place] [address] 02293- 5897 Jun, [facility] [id number] [place] [address] 34181- 7727 Jun, Bipolar disorder, unspecified F31.9 [facility] [address] [place] [address] 83548- 9058 Jun, Mood disorder F39 [facility] [id number] [place] [address] 33388- 5773 Jun, [place] [address] [id number] [place] [address] 91118- 1485 May, Fissure in skin of foot R23.4 ; Callus of foot L84 and Type 2 diabetes mellitus 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, unspecified spinal surgeon insulin use status E11.40 [place] [id number] [place] [address] 76962- 3291 May, Mood disorder F39 [facility] [id number] [place] [address] 92508- 0783 Apr, [place] [id number] [place] [address] 83724- 1361 Apr, Cough R05 and Tobacco use Z72.0 [place] [address] [place] [address] 40547- 0550 Apr, Cough R05 and Tobacco use Z72.0 [place] [address] [place] [address] 32786- 4760 Apr, Mood disorder F39 [place] [address] [id number] [place] [address] 05742- 9043 Apr, Low back pain M54.5 [facility] [address] [place] [address] 36947- 8234 Apr, Uncontrolled type 2 diabetes mellitus with hyperglycemia, without long-term current use of insulin E11.65 [place] [id number] [place] [address] 20789- 4939 Apr, Uncontrolled type 2 diabetes mellitus with hyperglycemia, without long-term current use of insulin E11.65 [facility] [id number] [place] [address] 68497- 1470 Mar, Bipolar disorder, unspecified F31.9 [facility] [id number] [place] [address] 63160- 2763 Mar, [facility] [id number] [place] [address] 90968- 2742 Mar, Bipolar disorder, unspecified F31.9 [facility] [id number] [place] [address] 41489- 7506 Mar, Mood disorder F39 [facility] [id number] [place] [address] 17642- 6059 Feb, [facility] [id number] [place] [address] 21311- 1772 Feb, [facility] [id number] [place] [address] 69915- 9836 Feb, [facility] [id number] [place] [address] 71016- 3370 Feb, Bipolar disorder, unspecified F31.9 [facility] [address] [place] [address] 16828- 4753 Feb, Uncontrolled type 2 diabetes mellitus with hyperglycemia, without long-term current use of insulin E11.65 ; Encounter for immunization Z23 ; Vasovagal syncope R55 and Low back pain M54.5 [facility] [id number] [place] [address] 88072- 9739 Jan, Bipolar disorder, unspecified F31.9 [facility] [id number] [place] [address] 94048- 1992 Jan, [facility] [id number] [place] [address] 08333- 2689 Jan, Fatigue, unspecified type R53.83 ; Nocturnal hypoxia G47.34 ; Leukocytosis D72.829 ; Other chronic gastritis without hemorrhage K29.50 ; Uncontrolled type 2 diabetes mellitus with hyperglycemia, without long-term current use of insulin E11.65 ; Alternating constipation and diarrhea R19.8 and Chronic obstructive pulmonary disease, unspecified COPD type J44.9 [place] [address] 64270- 2610 Jan, [place] [address] 76938- 1349 Jan, Leukocytosis D72.829 [place] [address] 64651- 3662 Jan, Mood disorder F39 [place] [address] 97396- 9766 Dec, Bipolar disorder, unspecified F31.9 [place] [address] 31443- 5781 Dec, [facility] [address] 13772 -5611 Dec, Acute gastritis without bleeding K29.00 [place] [address] 49005- 2798 Dec, Leukocytosis D72.829 [place] [address] 01076- 9154 Dec, [place] [address] [id number] [place] [address] 47691- 0788 Dec, Dental examination Z01.20 [place] [address] 12225- 2383 Dec, [place] [address] 74214- 5447 Dec, Leukocytosis D72.829 [place] [address] 07711- 2504 Dec, Uncontrolled type 2 diabetes mellitus with hyperglycemia, without long-term current use of insulin E11.65 [place] [address] [place] [address] 32117- 7866 Nov, Dental examination Z01.20 [place] [address] [place] [address] 78177- 0557 Nov, [place] [id number] [place] [address] 31487- 4795 Nov, Major depressive disorder, recurrent episode, moderate F33.1 [place] [address] [id number] [place] [address] 29341- 3229 Nov, Leukocytosis D72.829 [place] [address] [id number] [place] [address] 79463- 2794 Nov, Mood disorder F39 [place] [address] [address] [id number] [place] [address] 88825- 4972 Nov, Other osteoarthritis of spine, cervical region M47.892 and Uncontrolled type 2 diabetes mellitus with hyperglycemia, without long-term current use of insulin E11.65 [place] [address] [place] [address] 99487- 3031 Nov, Leukocytosis D72.829 and Elevated serum glucose R73.9 [place] [address] [place] [address] 13582- 4427 October, Elevated serum glucose R73.9 [place] [address] [place] [address] 14202- 8766 October, Mood disorder F39 [place] [address] [place] [address] 22310- 7950 Sep, Major depressive disorder, recurrent episode, moderate F33.1 [place] [address] [address]- 3939 Sep, Mood disorder F39 [place] [address] [address]- 6340 Aug, [facility] [address], [place] [address]- 7027 Jul, Major depressive disorder, recurrent episode, moderate F33.1 [facility] [address], [place] [address]- 3554 Jul, Mood disorder F39 [facility] [address] [address]- 9669 Jul, [facility] [address], [place] [address]- 9705 Jul, History of [place] (myocardial infarction) I25.2 ; Hyperlipidemia E78.5 ; Prediabetes R73.09 ; Chronic obstructive pulmonary disease, unspecified COPD type J44.9 and Tobacco use Z72.0 [facility] [address], [place] [address]- 4475 Jun, [facility] [address], [place] [address]- 7019 Jun, Mood disorder F39 [facility] [address], [place] [address]- 8983 Jun, [facility] [address] [address]- 0300 May, Major depressive disorder, recurrent episode, moderate F33.1 and Primary insomnia F51.01 [facility] [address] [address]- 9393 May, Mood disorder F39 [facility] [address], [place] [address]- 1592 Apr, [facility] [address], [place] [address]- 3737 Apr, Mood disorder F39 [facility] [address], [place] [address]- 4680 Apr, [facility] [address] [id number] [place] [address] 73284- 3862 Apr, [facility] [address] 48894- 7085 Apr, Chronic obstructive pulmonary disease, unspecified COPD type J44.9 and Non-seasonal allergic rhinitis due to other allergic trigger J30.89 [place] [address] 83485- 6775 11 Apr, 2016 Mood disorder F39 [place] [address] 04587- 1782 10 Apr, 2016 Major depressive disorder, recurrent episode, moderate F33.1 and PTSD (post-traumatic stress disorder) F43.10 [place] [address] [place] [address] [id number] [place] [address] 28276- 1109 Apr, [place] [address] 52127- 3424 Apr, [place] [address] [place] [address] [id number] [place] [address] 36278- 2729 Apr, Chest pain, unspecified type R07.9 ; Chronic obstructive pulmonary disease, unspecified COPD type J44.9 ; Hyperlipidemia, unspecified hyperlipidemia type E78.5 and Tobacco use Z72.0 [place] [address] [place] [address] [id number] [place] [address] 40507- 3837 Mar, Mood disorder F39 [place] [address] [place] [address] [id number] [place] [address] 78742- 0991 Mar, Mood disorder F39 [place] [address] [place] [address] [id number] [place] [address] 72469- 8611 Mar, Other osteoarthritis of spine, cervical region M47.892 [place] [address] [place] [id number] [place] [address] 17323- 3437 06 Mar, 2016 Tear of right rotator cuff, unspecified tear extent M75.101 [place] [address] [place] [address]- 4978 Mar, [place] [address] [place] [id number] [place] [address] 83649- 0749 Mar, Bipolar II disorder F31.81 [facility] [address] [place] [address] [id number] [place] [address] 28415- 2699 Mar, [place] [address] 01281- 5961 Feb, Impingement syndrome of right shoulder M75.41 ; Tear of right rotator cuff, unspecified tear extent M75.101 and Loose body in right elbow M24.021 [place] [address] 94092- 6341 Jan, [place] [address] 53038- 0577 Jan, [place] [address] 79533- 9913 Jan, Prediabetes R73.09 ; Other chronic pain G89.29 and Pain in right shoulder M25.511 [place] [address] 11228- 7339 Dec, [place] [address] [place] [id number] [place] [address] 50000- 0017 Dec, Heartburn R12 and Chest discomfort R07.89 [place] [address] 94733- 3292 Dec, Impingement syndrome of right shoulder M75.41 and 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, 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 [place] [address] [place] [id number] [place] [address] 08003- 4873 Nov, [place] [address] 83546- 8699 Nov, Leukocytosis D72.829 [place] [address] [place] [address]- 6429 Nov, [place] [address] [place] [id number] [place] [address] 69130- 7789 Nov, Enlarged lymph node R59.9 ; Chronic obstructive pulmonary disease, unspecified COPD type J44.9 ; Low back pain M54.5 ; Neuropathy G62.9 and Closed nondisplaced fracture of sternal end of right clavicle, sequela S42.017S [place] [address] [place] [address] [id number] [place] [address] 48013- 5672 October, [place] [address] 17469- 2895 October, [place] [address] 30968- 4316 Sep, [place] [address] [place] [id number] [place] [address] 53193- 6135 Aug, Double vision H53.2 ; Occipital headache R51 ; Chronic obstructive pulmonary disease, unspecified COPD type J44.9 and Gastroesophageal reflux disease, esophagitis presence not specified K21.9 [place] [address] [place] [id number] [place] [address] 78372- 6967 Aug, [place] [address] [place] [id number] [place] [address] 56120- 4207 Jul, Enlarged lymph node in neck R59.0 [place] [address] [place] [id number] [place] [address] 67280- 6134 Jul, [place] [address] [place] [id number] [place] [address] 78257- 4520 Jul, Chronic obstructive pulmonary disease, unspecified COPD type J44.9 ; Tobacco use Z72.0 ; Leukocytosis D72.829 ; Hyperlipidemia E78.5 and Neck abscess L02.11 [place] [address] [place] [id number] [place] [address] 88863- 3595 Jun, Shortness of breath R06.02 [place] [address] [place] [id number] [place] [address] 76392- 6185 17 May, 2015 Leukocytosis D72.829 and Shortness of breath R06.02 [place] [address] [place] [id number] [place] [address] 23838- 1566 09 May, 2015 Low back pain M54.5 ; Hyperlipidemia E78.5 ; Leukocytosis D72.829 ; Other osteoarthritis of spine, cervical region M47.892 and Shortness of breath R06.02 [place] [address] [place] [id number] [place] [address] 51842- 2240 18 Feb, 2015 Chest pain 786.50 ; Tobacco use 305.1 ; Back pain 724.5 and Hyperlipemia 272.4 [place] [address] [place] [id number] [place] [address] 78190- 0815 Jan, [place] [address] 14479- 2982 Jan, Chronic low back pain 724.2 and Degenerative arthritis of cervical spine 721.0 [place] [address] [place] [id number] [place] [address] 33112- 8335 Jan, Chronic low back pain 724.2 and Neck pain 723.1 [place] [address] [place] [id number] [place] [address] 75924- 8107 Dec, Chronic low back pain 724.2 and Neck pain 723.1 [place] [address] [place] [id number] [place] [address] 80110- 4007 Nov, Chest pain 786.50 ; Dyspnea 786.09 ; Tobacco use 305.1 and Back pain 724.5 [place] [address] 67000- 8582 Nov, [place] [address] [place] [id number] [place] [address] 81996- 4372 04 Nov, 2014 Disability examination V68.01 and Muscle pain 729.1 [place] [address] [place] [address]- 5644 October, History of [place] (myocardial infarction) 412 ; Hyperlipidemia LDL goal < 100 272.4 ; Leukocytosis 288.60 and Glucose intolerance (pre-diabetes ) 790.29 [facility] [address] [facility] [id number] [address]- 6073 October, Chest pain 786.50 ; Chronic low back pain 724.2 ; History of [place] (myocardial infarction) 412 and Neuropathy 355.9 [facility] [address] [facility] [id number] [address]- 7537 October, Chronic low back pain 724.2 ; [...] Psychotherapy, patient &/family, 45 minutes, established patient Jan 09, 2017 INSTRUCTIONS MEDICATIONS ADMINISTERED No [...]
--- OUTSIDE RECORDS SUMMARY | 2017-11-07 07:37 | XMS REPORT ---
Author Author SHEYLA MARLIN Organization [facility] Address [address] [place] [address] Care Team Providers Care Quality Compliance Consultant Name Role Phone LINDSEYMARLIN GRIMES Unavailable PROBLEMS Type Condition ICD9-CM Code [id number] Code Onset Dates Condition Status SNOMED Code Problem Tobacco use Z72.0 Active 641403092 Problem Tear of right rotator cuff, unspecified tear extent M75.101 Active 720384817 Problem Enlarged lymph node R59.9 Active 11950510 Problem Nocturnal hypoxia G47.34 Active 946744263 Problem Hiatal hernia K44.9 Active 67367127 Problem Bipolar disorder, unspecified F31.9 Active 31086683 Problem Panlobular emphysema J43.1 Active 6003074 Problem Hyperplastic colonic polyp, unspecified part of colon K63.5 Active 209516639 Problem Mood disorder F39 Active 22924244 Problem Hyperlipidemia, unspecified hyperlipidemia type E78.5 Active 05015338 Problem Uncontrolled type 2 diabetes mellitus with hyperglycemia, without long -term current use of insulin E11.65 Active 307825134 Problem Non-seasonal allergic rhinitis due to other allergic trigger J30.89 Active 96137573 Problem Internal hemorrhoids K64.8 Active 27577593 Problem GERD with esophagitis K21.0 Active 604658857 Problem External hemorrhoids K64.4 Active 37623375 Problem Other chronic gastritis without hemorrhage K29.50 Active 1747520 Problem Low back pain M54.5 Active 500466530 Problem Leukocytosis D72.829 Active 192130098 Problem Other osteoarthritis of spine, cervical region M47.892 Active 303187312 Problem Hyperlipidemia E78.5 Active 18079576 Problem History of [place] (myocardial infarction) I25.2 Active 313829384 Problem Neuropathy G62.9 Active 109999544 ALLERGIES Substance Reaction Event Type Date Status Incruse Ellipta Unknown Drug Allergy Feb, Active Tetracycline HCl nausea and vomiting Drug Allergy Feb, Active Spiriva HandiHaler Suicidal ideation Drug Allergy Feb, Active Ampicillin anaphylaxis Drug Allergy Feb, Active strawberries Unknown Non Drug Allergy Feb, Active penicillin anaphylaxis Non Drug Allergy Feb, Active ENCOUNTERS Encounter Location Date Diagnosis [facility] [id number] [place] [address] 73935- 9568 Nov, [facility] [id number] [place] [address] 76423- 5975 Sep, [facility] [id number] [place] [address] 82243- 4115 Sep, [facility] [id number] [place] [address] 36896- 3308 Sep, Leukocytosis D72.829 [facility] [id number] [place] [address] 33215- 0650 Sep, [facility] [id number] [place] [address] 35197- 6651 Sep, [facility] [id number] [place] [address] 01649- 3413 Sep, [facility] [id number] [place] [address] 18505- 5056 Aug, Low back pain M54.5 [facility] [id number] [place] [address] 99121- 8669 Aug, Bipolar disorder, unspecified F31.9 [facility] [id number] [place] [address] 38501- 9060 Aug, [facility] [id number] [place] [address] 44961- 5169 Aug, [facility] [id number] [place] [address] 29326- 3662 Aug, Uncontrolled type 2 diabetes mellitus with hyperglycemia, without long-term current use of insulin E11.65 ; Non-healing surgical wound, initial encounter T81.89XA ; Cellulitis of abdominal wall L03.311 ; Hyperlipidemia E78.5 ; Chronic obstructive pulmonary disease, unspecified COPD type J44.9 and Tobacco use Z72.0 [facility] [id number] [place] [address] 19022- 6602 Aug, [facility] [id number] [place] [address] 96845- 1437 Jul, [facility] [id number] [place] [address] 38454- 3439 Jul, 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 [id number] [place] [address] 02429- 6627 Jun, Bipolar disorder, unspecified F31.9 [place] [id number] [place] [address] 34863- 5699 Jun, Mood disorder F39 [facility] [id number] [place] [address] 88535- 2829 Jun, [facility] [id number] [place] [address] 55145- 4750 May, Fissure in skin of foot R23.4 ; Callus of foot L84 and Type 2 diabetes mellitus 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, unspecified shelter insulin use status E11.40 [facility] [id number] [place] [address] 41406- 0003 May, Mood disorder F39 [facility] [id number] [place] [address] 88087- 5886 Apr, [facility] [id number] [place] [address] 27832- 3152 15 Apr, 2017 Cough R05 and Tobacco use Z72.0 [facility] [id number] [place] [address] 60402- 2909 Apr, Cough R05 and Tobacco use Z72.0 [facility] [id number] [place] [address] 07674- 8077 Apr, Mood disorder F39 [facility] [id number] [place] [address] 18864- 3905 Apr, Low back pain M54.5 [facility] [address] 31376- 6419 Apr, Uncontrolled type 2 diabetes mellitus with hyperglycemia, without long-term current use of insulin E11.65 [facility] [id number] [place] [address] 66535- 6829 Apr, Uncontrolled type 2 diabetes mellitus with hyperglycemia, without long-term current use of insulin E11.65 [facility] [id number] [place] [address] 77084- 6986 Mar, Bipolar disorder, unspecified F31.9 [facility] [id number] [place] [address] 75070- 6112 Mar, [facility] [id number] [place] [address] 33692- 2263 Mar, Bipolar disorder, unspecified F31.9 [facility] [id number] [place] [address] 25709- 8022 Mar, Mood disorder F39 [facility] [id number] [place] [address] 21055- 7264 Feb, [facility] [id number] [place] [address] 31626- 3370 Feb, [facility] [id number] [place] [address] 56504- 9631 Feb, [place] [facility] [id number] [place] [address] 06216- 1186 Feb, Bipolar disorder, unspecified F31.9 [facility] [address] 35928- 8681 Feb, Uncontrolled type 2 diabetes mellitus with hyperglycemia, without long-term current use of insulin E11.65 ; Encounter for immunization Z23 ; Vasovagal syncope R55 and Low back pain M54.5 [facility] [facility] [address] 78796- 9564 Jan, Bipolar disorder, unspecified F31.9 [place] [address] 92323- 8101 Jan, [place] [facility] [address] 38166- 6956 Jan, Fatigue, unspecified type R53.83 ; Nocturnal hypoxia G47.34 ; Leukocytosis D72.829 ; Other chronic gastritis without hemorrhage K29.50 ; Uncontrolled type 2 diabetes mellitus with hyperglycemia, without long-term current use of insulin E11.65 ; Alternating constipation and diarrhea R19.8 and Chronic obstructive pulmonary disease, unspecified COPD type J44.9 [facility] [id number] [place] [address] 25529- 8162 Jan, [place] [id number] [place] [address] 21995- 3862 Jan, Leukocytosis D72.829 [facility] [facility] [address] 17422- 6263 Jan, Mood disorder F39 [place] [address] 33164- 2362 Dec, Bipolar disorder, unspecified F31.9 [place] [id number] [place] [address] 33640- 6526 Dec, [facility] [id number] [place] [address] 78545 -1453 Dec, Acute gastritis without bleeding K29.00 [facility] [address] [address]- 3570 18 Dec, 2016 Leukocytosis D72.829 [facility] [address] [address]- 1035 14 Dec, 2016 [facility] [id number] [place] [address] 44915- 6581 Dec, Dental examination Z01.20 [facility] [address] [address]- 2605 Dec, [facility] [id number] [place] [address] 49627- 4770 Dec, Leukocytosis D72.829 [facility] [id number] [place] [address] 91016- 0760 Dec, Uncontrolled type 2 diabetes mellitus with hyperglycemia, without long-term current use of insulin E11.65 [facility] [address] [address]- 2859 Nov, Dental examination Z01.20 [facility] [address] [address]- 0087 Nov, [place] [address] [address]- 3744 Nov, Major depressive disorder, recurrent episode, moderate F33.1 [facility] [address] [address]- 8875 Nov, Leukocytosis D72.829 [place] [id number] [place] [address] 99517- 2235 05 Nov, 2016 Mood disorder F39 [facility] [address] [address]- 9104 Nov, Other osteoarthritis of spine, cervical region M47.892 and Uncontrolled type 2 diabetes mellitus with hyperglycemia, without long-term current use of insulin E11.65 [place] [address] [address]- 7007 Nov, Leukocytosis D72.829 and Elevated serum glucose R73.9 [facility] [id number] [place] [address] 24532- 0232 October, Elevated serum glucose R73.9 [facility] [id number] [place] [address] 32240- 3134 October, Mood disorder F39 [facility] [id number] [place] [address] 65923- 4771 Sep, Major depressive disorder, recurrent episode, moderate F33.1 [place] [id number] [place] [address] 34602- 3687 Sep, Mood disorder F39 [place] [id number] [place] [address] 41552- 9925 Aug, [place] [id number] [place] [address] 55811- 8719 Jul, Major depressive disorder, recurrent episode, moderate F33.1 [facility] [id number] [place] [address] 30607- 3694 Jul, Mood disorder F39 [facility] [address] [address]- 4507 Jul, [place] [address] [address]- 9011 Jul, History of TN (myocardial infarction) I25.2 ; Hyperlipidemia E78.5 ; Prediabetes R73.09 ; Chronic obstructive pulmonary disease, unspecified COPD type J44.9 and Tobacco use Z72.0 [facility] [address] [address]- 1227 Jun, [facility] [address] [address]- 9831 Jun, Mood disorder F39 [facility] [address] [address]- 8983 Jun, [facility] [id number] [place] [address] 42891- 1572 May, Major depressive disorder, recurrent episode, moderate F33.1 and Primary insomnia F51.01 [facility] [id number] [place] [address] 23540- 3347 May, Mood disorder F39 [facility] [id number] [place] [address] 59407- 0076 Apr, [facility] [id number] [place] [address] 15319- 7953 Apr, Mood disorder F39 [facility] [id number] [place] [address] 77629- 7897 Apr, [facility] [id number] [place] [address] 80246- 3038 Apr, [facility] [id number] [place] [address] 32649- 8437 Apr, Chronic obstructive pulmonary disease, unspecified COPD type J44.9 and Non-seasonal allergic rhinitis due to other allergic trigger J30.89 [facility] [id number] [place] [address] 95572- 1260 Apr, Mood disorder F39 [facility] [id number] [place] [address] 87057- 6840 Apr, Major depressive disorder, recurrent episode, moderate F33.1 and PTSD (post-traumatic stress disorder) F43.10 [facility] [id number] [place] [address] 80304- 7530 07 Apr, 2016 [facility] [id number] [place] [address] 32179- 2605 07 Apr, 2016 [facility] [address] [place] [address] 36874- 9061 Apr, Chest pain, unspecified type R07.9 ; Chronic obstructive pulmonary disease, unspecified COPD type J44.9 ; Hyperlipidemia, unspecified hyperlipidemia type E78.5 and Tobacco use Z72.0 [facility] [id number] [place] [address] 72487- 2711 Mar, Mood disorder F39 [place] [id number] [place] [address] 74335- 5192 Mar, Mood disorder F39 [facility] [id number] [place] [address] 19070- 4021 Mar, Other osteoarthritis of spine, cervical region M47.892 [place] [address] 67367- 2603 Mar, Tear of right rotator cuff, unspecified tear extent M75.101 [facility] [id number] [place] [address] 02236- 2703 Mar, [place] [id number] [place] [address] 48165- 9754 Mar, Bipolar II disorder F31.81 [place] [id number] [place] [address] 48556- 3911 Mar, [place] [id number] [place] [address] 91856- 6743 Feb, Impingement syndrome of right shoulder M75.41 ; Tear of right rotator cuff, unspecified tear extent M75.101 and Loose body in right elbow M24.021 [place] [id number] [place] [address] 34276- 1523 Jan, [place] [id number] [place] [address] 75559- 8732 Jan, [place] [id number] [place] [address] 07010- 9678 Jan, Prediabetes R73.09 ; Other chronic pain G89.29 and Pain in right shoulder M25.511 [place] [address] [place] [address]- 9202 Dec, [facility] [id number] [place] [address] 88058- 1858 Dec, Heartburn R12 and Chest discomfort R07.89 [place] [id number] [place] [address] 82096- 0456 Dec, Impingement syndrome of right shoulder M75.41 and 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, 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 [place] [address] 47362- 0374 Nov, [place] [address] 94492- 8875 Nov, Leukocytosis D72.829 [place] [address] 15123- 7974 Nov, [place] [address] 62891- 2561 Nov, Enlarged lymph node R59.9 ; Chronic obstructive pulmonary disease, unspecified COPD type J44.9 ; Low back pain M54.5 ; Neuropathy G62.9 and Closed nondisplaced fracture of sternal end of right clavicle, sequela S42.017S [place] [id number] [place] [address] 50844- 5207 October, [place] [id number] [place] [address] 68260- 6013 October, [place] [id number] [place] [address] 00962- 4586 Sep, [place] [address] 97715- 1447 Aug, Double vision H53.2 ; Occipital headache R51 ; Chronic obstructive pulmonary disease, unspecified COPD type J44.9 and Gastroesophageal reflux disease, esophagitis presence not specified K21.9 [place] [address] [place] [address]- 5534 Aug, [place] [id number] [place] [address] 76950- 6375 Jul, Enlarged lymph node in neck R59.0 [facility] [id number] [place] [address] 36581- 0061 Jul, [place] [address] 00993- 4927 Jul, Chronic obstructive pulmonary disease, unspecified COPD type J44.9 ; Tobacco use Z72.0 ; Leukocytosis D72.829 ; Hyperlipidemia E78.5 and Neck abscess L02.11 [place] [address] 70557- 3966 Jun, Shortness of breath R06.02 [place] [address] 72910- 9889 May, Leukocytosis D72.829 and Shortness of breath R06.02 [place] [id number] [place] [address] 77960- 9316 May, Low back pain M54.5 ; Hyperlipidemia E78.5 ; Leukocytosis D72.829 ; Other osteoarthritis of spine, cervical region M47.892 and Shortness of breath R06.02 [place] [id number] [place] [address] 24537- 2252 Feb, Chest pain 786.50 ; Tobacco use 305.1 ; Back pain 724.5 and Hyperlipemia 272.4 [place] [id number] [place] [address] 95215- 9879 Jan, [place] [address] 56693- 5898 Jan, Chronic low back pain 724.2 and Degenerative arthritis of cervical spine 721.0 [place] [address] 94531- 2922 Jan, Chronic low back pain 724.2 and Neck pain 723.1 [place] [id number] [place] [address] 27057- 6845 Dec, Chronic low back pain 724.2 and Neck pain 723.1 [place] [address] 44748- 5173 Nov, Chest pain 786.50 ; Dyspnea 786.09 ; Tobacco use 305.1 and Back pain 724.5 [place] [address] 11778- 0829 Nov, [address] 95878- 0994 Nov, Disability examination V68.01 and Muscle pain 729.[address] 95825- 6060 October, History of [place] (myocardial infarction) 412 ; Hyperlipidemia LDL goal < 100 272.4 ; Leukocytosis 288.60 and Glucose intolerance (pre-diabetes ) 790.29 [place] [address] 98406- 8243 October, Chest pain 786.50 ; Chronic low back pain 724.2 ; History of TN (myocardial infarction) 412 and Neuropathy 355.[address] [place] [id number] [place] [address] 04993- 7343 October, Chronic low back pain 724.2 ; Chest pain 786.50 ; History of [place] (myocardial infarction) 412 and Neuropathy 355.9 IMMUNIZATIONS No Known Immunizations SOCIAL HISTORY Never Assessed REASON FOR VISIT F/U PLAN OF CARE Activity Details Follow Up 4 Weeks Reason: VITAL SIGNS Height 68 in 2017-02-21 Weight 245.2 lbs 2017-02-21 Heart Rate 116 bpm 2017-02-21 Respiratory Rate 22 2017-02-21 BMI 37.28 kg/m2 2017-02-21 Blood pressure systolic 138 mmHg 2017-02-21 Blood pressure diastolic 96 mmHg 2017-02-21 MEDICATIONS Medication Instructions Dosage Frequency Start Date End Date Duration Status Oxygen inhalation Portable 2 liters per minute Active Citalopram Hydrobromide 20 MG Orally Once a day 1.5 tablets 24h 30 days Active Albuterol Sulfate (2.5 MG/3ML) 0.083% Inhalation 4 times a day 3 ml 6h Active Symbicort 160-4.5 MCG/ACT Inhalation Twice a day 2 puffs 12h 24 Aug, 2015 Active Seroquel 200 MG Orally Once a day 1 tablet 24h 25 Dec, 2016 30 days Active Blood Glucose Monitor System w/Device DX- E 11.65 2 times a day- 3 times weekly. test blood sugar Nov, Active Blood Glucose Test - and lancets. DX E11.65 2 times a day- 3 times weekly. test blood sugar Nov, Active Crestor 10 MG Orally Once a day 1 tablet 24h Active Dexilant 60 mg Orally Once a day 1 capsule 24h 90 days Active Proventil HFA 108 (90 Base) MCG/ACT Inhalation every 4 hrs 2 puffs as needed 4h 12 Jul, 2015 Active Aspir-81 81 MG Orally Once a day 1 tablet 24h Active Metformin HCl 500 mg ICD10 E11.65 Twice a day 2 tablet with meals 12h Nov, Active Singulair 10 mg Orally Once a day 1 tablet in the evening 24h 30 Active Nebulizer - Active Carafate 1 GM Orally 4 times a day x 2 weeks then prn 1 tablet on an empty stomach Active ZyrTEC 10 MG Orally Once a day 1 tablet 24h Active Cyclobenzaprine HCl 10 mg Orally Three times a day 1 tablet as needed 8h 7 Apr, 2017 30 days Active RESULTS No Results PROCEDURES [...]
[2017-11-07] MEDS ORDERED: NS IV 1000 ML 1,000 ML IV SCH ×2 (08:00→11:24)
[2017-11-07 08:17] LABS: MEAN PLATELET VOLUME 9.2 FL (7.4-10.4); RED BLOOD COUNT 4.74 10^6/uL (4.35-5.85); RED CELL DISTRIBUTION WIDTH 14.5 % (10.0-14.5); WHITE BLOOD COUNT 10.6 10^3/uL (4.3-11.0)
[2017-11-07 08:33] LABS: PROTHROMBIN TIME PATIENT 12.9 SEC (12.2-14.7)
[2017-11-07 08:42] LABS: ALANINE AMINOTRANSFERASE 38 U/L (0-55); ALBUMIN 4.3 GM/DL (3.2-4.5); ALKALINE PHOSPHATASE 62 U/L (40-136); BILIRUBIN,TOTAL 0.3 MG/DL (0.1-1.0); BUN/CREATININE RATIO 8; CARBON DIOXIDE 25 MMOL/L (21-32); CHLORIDE 104 MMOL/L (98-107); CHOLESTEROL 139 MG/DL (< 200); CREATININE SERUM 0.93 MG/DL (0.60-1.30); GFR ESTIMATED > 60; GLUCOSE 121 MG/DL (70-105); HDL CHOLESTEROL 43 MG/DL (40-60); POTASSIUM 3.7 MMOL/L (3.6-5.0); SODIUM 142 MMOL/L (135-145); TOTAL PROTEIN 7.3 GM/DL (6.4-8.2); TRIGLYCERIDES 96 MG/DL (<150); VLDL CHOLESTEROL 19 MG/DL (5-40)
[2017-11-07] MEDS ORDERED: ALBU2.5V4 NEB (08:47)
[2017-11-07] MEDS ORDERED: IPRA3AMP NEB (08:47)
[2017-11-07] MEDS ORDERED: SUCR1TAB36 PO (08:53)
[2017-11-07] MEDS ORDERED: ATOR40TA PO (08:53)
[2017-11-07] MEDS ORDERED: BACL10TA PO (08:53)
[2017-11-07] MEDS ORDERED: TRAZ150T72 PO (08:53)
[2017-11-07] MEDS ORDERED: QUET200T PO (08:53)
[2017-11-07] MEDS ORDERED: HYDR-3812 PO (08:53)
[2017-11-07] MEDS ORDERED: ASPI-999 PO (08:53)
[2017-11-07] MEDS ORDERED: MULT-35 PO (08:57)
[2017-11-07] MEDS ORDERED: HYDR-3816 PO (09:30)
[2017-11-07] MEDS ORDERED: MIDAZOLAM 5 MG/5 ML (VERSED) VIAL ONE (10:08)
[2017-11-07] MEDS ORDERED: fentaNYL INJECTION 100 MCG/2 ML AMP ONE (10:09)
[2017-11-07] MEDS ORDERED: HEParin 1000 UNIT/ML (10ML VIAL) FOR BOLUS ONE (10:09)
[2017-11-07] MEDS ORDERED: VERAPAMIL 5 MG/2 ML (CALAN) VIAL IV ONE (10:09)
[2017-11-07] MEDS ORDERED: NITRO DRIP 25000 MCG/D5W 250 ML IV ONE (10:09)
[2017-11-07] MEDS ORDERED: diphenhydrAMINE 50 MG/ML INJ (BENADRYL) ONE (10:09)
--- NOTE | 2017-11-07 11:23 | Cardiac Procedure Note-CS/ASA ---
Pre-Procedure Note Pre-Op Procedure Note H&P Reviewed The H&P was reviewed, patient examined and no changes noted. Date H&P Reviewed: Nov 07, 2017 Time H&P Reviewed: 10:40 Conscious Sedation Pre-Proced Time Reviewed: 10:40 ASA Class: 3 Airway Mallampati Classification: (cher-ae heights appropriate class) I. II. III, IV Lungs Heart ASA score ASA 1: a normal healthy patient ASA 2: a patient with a mild systemic disease (mid diabetes, controlled hypertension, obesity ASA 3: a patient with a severe systemic disease that limits activity (angina , COPD, prior Myocardial infarction) ASA 4: a patient with an incapacitating disease that is a constant threat to life (CHF, renal failure) ASA 5: a moribund patient not expected to survive 24 hrs. (ruptured aneurysm) ASA 6: a declared brain patient whose organs are being harvested. For emergent operations, add the letter E after the classification Grade 3 Sedation Plan: Analgesia, Amnesia, Plan communicated to team members, Discussed options with patient/fam, Discussed risks with patient/fam Note The patient is an appropriate candidate to undergo the planned procedure, sedation, and anesthesia. The patient immediately re-assessed prior to indication. MAGDA DIAZ MD FACP FAC CCDS Nov 07, 2017 11:23
--- NOTE | 2017-11-07 11:26 | Discharge Inst-Post CATH ---
Discharge Inst-CATH Post Cardiac Cath D/C Inst Follow Up/Plan F/u with Dr Cedillo in 2 weeks CARDIAC CATH DISCHARGE INSTRUCTIONS *Hold Metformin for 48 hours post heart cath. ACTIVITY * Go Home directly and rest. * Limit activity of the leg (or wrist if it was used) for 7 days including aerobics, swimming, jogging, bicycling, etc. * Restrict stair-climbing for 7 days if possible, if not, climb up with your non -cath leg, then bring together on the same step. * Avoid lifting, pushing, pulling or excessive movement of the affected extremity for 7 days. * Customary sexual activity may be resumed after 2 days-use caution not to use a position that strains or causes pain to the affected extremity. * No driving for 24 hours. * NO SMOKING. * Avoid straining for bowel movements for 7 days. * Gentle walking on level ground is allowed. * Returning to work will depend on the type of procedure and the results. Your doctor will discuss this with you. CALL YOUR DOCTOR FOR ANY OF THE FOLLOWING: *If bleeding from the puncture site occurs- Apply gentle pressure to site with clean cloth and call your doctor or EMS. * If a knot or lump forms under the skin, increases in size, or causes pain. * If bruising appears to be worsening or moving further down your leg instead of disappearing. * Temperature above 101 F. CARE OF YOUR GROIN INCISION; * Bruising or purple discoloration of the skin near the puncture site is common. * You may shower only, no bathtub bathing for 5 days. Be careful to avoid slipping as your leg may feel stiff. * If a closure device was used on your femoral artery, please see the attached guide regarding care of the device and your leg. * REMOVE the dressing from your groin the next day after your procedure in the shower. CARE OF YOUR WRIST INCISION; * Bruising or purple discoloration of the skin near the puncture site is common. * You may shower. * DO NOT submerge wrist. * Remove dressing in 24 hours. MAGDA CEDILLO MD [facility] Nov 07, 2017 11:26
[2017-11-07] MEDS ORDERED: POTA-53 PO (11:28)
[2017-11-07] MEDS ORDERED: FURO-124 PO (11:28)
[2017-11-07] MEDS ORDERED: PATIENT MAY USE OWN MEDS, ALL PO SCH (11:30)
--- NOTE | 2017-11-07 11:30 | Discharge Inst-Cardiology ---
Discharge Inst-Cardiac Discharge Medications New Medications: Furosemide (Lasix) 40 Mg Tablet 40 MG PO DAILY, #30 TAB 5 Refills Potassium Chloride (K-Tab ER) 20 Meq Tablet.er 20 MEQ PO DAILY, #30 TAB 5 Refills Continued Medications: Albuterol Sulfate (Proventil Hfa) 6.7 Gm Hfa.aer.ad 2 PUFF IH Q4H PRN for SHORTNESS OF BREATH, INHALER Aspirin (Aspirin) 81 Mg Tab.chew 81 MG PO HS, TAB Atorvastatin Calcium (Lipitor) 40 Mg Tablet 40 MG PO HS, TAB Baclofen (Baclofen) 10 Mg Tablet 10 MG PO HS, TAB Budesonide/Formoterol Fumarate (Symbicort 160-4.5 Mcg Inhaler) 10.2 Gm Hfa.aer.ad 2 PUFF IH BID, INHALER Bupropion HCl (Bupropion HCl) 100 Mg Tablet 100 MG PO TID, TAB Cetirizine HCl (Cetirizine HCl) 10 Mg Tablet 10 MG PO DAILY, TAB Citalopram Hydrobromide (Citalopram HBr) 20 Mg Tablet 30 MG PO DAILY, TAB TAKES 1 & 1/2 (20MG) TABLET Dexlansoprazole (Dexilant) 60 Mg Cap.dr.bp 60 MG PO DAILY, CAP Hydrocodone/Acetaminophen (Hydrocodone-Acetamin 7.5-325) 1 Each Tablet 1-2 TAB PO Q4H PRN for PAIN-MODERATE, TAB Ipratropium/Albuterol Sulfate (Iprat-Albut 0.5-3(2.5) mg/3 ml) 3 Ml Ampul.neb 3 ML NEB TID, EACH Metformin HCl (Metformin HCl) 1,000 Mg Tablet 1000 MG PO BID, TAB Montelukast Sodium (Singulair) 10 Mg Tablet 10 MG PO HS, TAB Multivitamin (Daily Multiple Vitamin) 1 Each Tablet 1 TAB PO DAILY, TAB Quetiapine Fumarate (Seroquel) 200 Mg Tablet 200 MG PO HS, TAB Sucralfate (Carafate) 1 Gm Tablet 1 GM PO TID PRN for STOMACH UPSET, TAB Trazodone HCl (Trazodone HCl) 150 Mg Tablet 75 MG PO HS, TAB TAKES 1/2 (150MG) TABLET Patient Instructions Patient Instructions: HOLD METFORMIN UNTIL THE EVENING OF 11/09/17, THEN RESUME PREVIOUS HOME DOSE MAGDA DIAZ MD FACP [facility]S Nov 07, 2017 11:30
--- NOTE | 2017-11-07 13:50 | CARDIAC CATHETERIZATION ---
DATE OF SERVICE: 11/07/2017 CARDIAC CATHETERIZATION The patient is a 57-year-old man with increasing shortness of breath and intermittent chest discomfort. A myocardial perfusion imaging study of 08/2017 was suggestive of small amount of inferoapical ischemia. Left ventricular ejection fraction of 55%. Given continuing symptoms and abnormal stress test, cardiac catheterization was carried out today after having obtained informed consent. PROCEDURE: He was brought to the cardiac catheterization laboratory in a fasting state. The right wrist was prepared and draped in the usual sterile fashion: A 1% lidocaine used for local anesthesia. Modified Seldinger technique was used to advance a 6-[place] sheath into the right radial artery. We used a 5-[place] JR4 catheter for right coronary angiography and a 6-[place] radial catheter for left coronary angiography and for left heart catheterization. Left ventricular angiography was not performed. Following catheter and sheath removal, a Vasc band was used to achieve radial hemostasis. He tolerated the procedure well. HEMODYNAMICS: Left ventricular end-diastolic pressure following coronary angiography was 29 mmHg. There is no significant pressure gradient on pullback across the aortic valve. Ascending aortic pressure was 122/91 with a mean of 107 mmHg. CORONARY ANGIOGRAPHY: Left main coronary artery is free of significant disease. Left anterior descending artery has 30% mid vessel stenosis. Left circumflex artery does not have significant disease. Right coronary artery is dominant and does not exhibit significant disease. CONCLUSIONS: 1. Angiographically mild coronary artery disease. 2. Elevated left ventricular end-diastolic pressure. DISCUSSION AND RECOMMENDATIONS: Based on results of the study, it appears appropriate to continue a conservative approach. Risk factor modification has been reviewed. Outpatient followup is advised. Job ID: [id number] DocumentID: [id number] Dictated Date: 11/07/2017 11:16:32 Radio Assembler Date: 11/07/2017 13:49:39 Dictated By: MAGDA DIAZ MD, MA, FACP, FACC,
== END 2017-11-07 14:15 | disposition home or self-care (01) ==
LOC: CATH 07:21 → SURG 11:30 → CATH 14:15
PROVIDERS: ATTEND Internal Medicine Cardiovascular Disease
DX: I25.10 Atherosclerotic heart disease of native coronary artery without angina pectoris (principal); R42 Dizziness and giddiness; R07.9 Chest pain, unspecified; R06.02 Shortness of breath; F17.210 Nicotine dependence, cigarettes, uncomplicated; Z82.49 Family history of ischemic heart disease and other diseases of the circulatory system; J44.9 Chronic obstructive pulmonary disease, unspecified; R09.02 Hypoxemia; Z86.73 Personal history of transient ischemic attack (TIA), and cerebral infarction without residual deficits; M54.12 Radiculopathy, cervical region
CPT/HCPCS: 36415; 80053; 80061; 85027; 85610; 85730; 87081; 93005; 93458

== ENCOUNTER → 2017-11-08 | Outpatient (CLI) | payer MEDICAID ==
[~2017-11-08] MED LIST changes: +ALBU2.5V4 NEB; +ATOR40TA PO; +BACL10TA PO; +FURO-124 PO; +HYDR-3812 PO; +HYDR-3816 PO; +IPRA3AMP NEB; +MULT-35 PO; +POTA-53 PO; +QUET200T PO
== END ==
LOC: WOUNDCARE 09:59
PROVIDERS: ATTEND Surgery
DX: L98.492 Non-pressure chronic ulcer of skin of other sites with fat layer exposed (principal); E11.622 Type 2 diabetes mellitus with other skin ulcer; T81.31XA Disruption of external operation (surgical) wound, not elsewhere classified, initial encounter; E66.01 Morbid (severe) obesity due to excess calories; T65.222A Toxic effect of tobacco cigarettes, intentional self-harm, initial encounter; J44.9 Chronic obstructive pulmonary disease, unspecified
CPT/HCPCS: 11042; 87070; 87075; 87205

== ENCOUNTER → 2017-11-13 | Outpatient (CLI) | payer MEDICAID ==
[2017-11-13 11:10] LABS: BUN/CREATININE RATIO 10; CALCIUM 9.8 MG/DL (8.5-10.1); CARBON DIOXIDE 28 MMOL/L (21-32); CHLORIDE 101 MMOL/L (98-107); CREATININE SERUM 1.14 MG/DL (0.60-1.30); GFR ESTIMATED > 60; GLUCOSE 147 MG/DL (70-105); POTASSIUM 4.3 MMOL/L (3.6-5.0); SODIUM 143 MMOL/L (135-145)
== END ==
LOC: LAB 10:25
PROVIDERS: ATTEND Internal Medicine Cardiovascular Disease
DX: R06.02 Shortness of breath (principal); I25.10 Atherosclerotic heart disease of native coronary artery without angina pectoris
CPT/HCPCS: 36415; 80048; 83735

== ENCOUNTER → 2017-11-13 | Outpatient (CLI) | payer MEDICAID | LOC: WOUNDCARE 09:48 | PROVIDERS: ATTEND Surgery | DX: T81.31XA Disruption of external operation (surgical) wound, not elsewhere classified, initial encounter (principal); E11.622 Type 2 diabetes mellitus with other skin ulcer; L98.492 Non-pressure chronic ulcer of skin of other sites with fat layer exposed; J44.9 Chronic obstructive pulmonary disease, unspecified; T65.222A Toxic effect of tobacco cigarettes, intentional self-harm, initial encounter; E66.01 Morbid (severe) obesity due to excess calories; Z68.35 Body mass index [BMI] 35.0-35.9, adult | CPT/HCPCS: 11042 ==

== ENCOUNTER → 2017-11-20 | Outpatient (CLI) | payer MEDICAID | LOC: WOUNDCARE 09:55 | PROVIDERS: ATTEND Surgery | DX: T81.31XA Disruption of external operation (surgical) wound, not elsewhere classified, initial encounter (principal); E11.622 Type 2 diabetes mellitus with other skin ulcer; L98.492 Non-pressure chronic ulcer of skin of other sites with fat layer exposed; J44.9 Chronic obstructive pulmonary disease, unspecified; T65.222A Toxic effect of tobacco cigarettes, intentional self-harm, initial encounter; E66.01 Morbid (severe) obesity due to excess calories; Z68.35 Body mass index [BMI] 35.0-35.9, adult | CPT/HCPCS: 11042 ==

== ENCOUNTER → 2017-12-05 | Outpatient (CLI) | payer MEDICAID ==
[~2017-12-05] MED LIST changes: -IPRA3AMP NEB; +IPRA3AMP31 NEB; +TRAZ-189 PO; -TRAZ-28 PO
== END ==
LOC: WOUNDCARE 14:50
PROVIDERS: ATTEND Surgery
DX: T81.31XA Disruption of external operation (surgical) wound, not elsewhere classified, initial encounter (principal); L98.492 Non-pressure chronic ulcer of skin of other sites with fat layer exposed; E11.622 Type 2 diabetes mellitus with other skin ulcer; E66.01 Morbid (severe) obesity due to excess calories; T65.222A Toxic effect of tobacco cigarettes, intentional self-harm, initial encounter; J44.9 Chronic obstructive pulmonary disease, unspecified
CPT/HCPCS: 11042

== ENCOUNTER → 2017-12-11 | Outpatient (CLI) | payer MEDICAID | LOC: WOUNDCARE 09:37 | PROVIDERS: ATTEND Surgery | DX: T81.31XA Disruption of external operation (surgical) wound, not elsewhere classified, initial encounter (principal); L98.492 Non-pressure chronic ulcer of skin of other sites with fat layer exposed; E11.622 Type 2 diabetes mellitus with other skin ulcer; J44.9 Chronic obstructive pulmonary disease, unspecified; T65.222A Toxic effect of tobacco cigarettes, intentional self-harm, initial encounter; E66.01 Morbid (severe) obesity due to excess calories; Z68.35 Body mass index [BMI] 35.0-35.9, adult | CPT/HCPCS: 99212 ==

== ENCOUNTER → 2018-01-17 | Outpatient (CLI) | payer MEDICAID ==
[~2018-01-17] MED LIST changes: +BARIUM SUSPENSION 105% (LIQUID POLIBAR PLUS) 240 ML/DOSE PO ONE; +BARIUM SUSPENSION 60% (LIQUID EZ PAQUE) 240 ML DOSE PO ONE
--- NOTE | 2018-01-17 10:24 | Diagnostic Imaging Report ---
INDICATION: Dysphagia. Patient ingested effervescent crystals as well as thin and thick barium and imaging of the esophagus was performed. One minute 23 seconds of fluoroscopy time was utilized. The esophagus has a fairly smooth contour. No mass or stricture is identified. No gastroesophageal reflux was demonstrated. No hiatal hernia is identified. Occasional tertiary contractions are present. IMPRESSION: Unremarkable barium esophagram. Dictated by: Dictated on workstation # [id number]
== END ==
LOC: RAD 09:26
PROVIDERS: ATTEND Otolaryngology Otolaryngology/Facial Plastic Surgery
DX: R13.10 Dysphagia, unspecified (principal)
CPT/HCPCS: 74220

== ENCOUNTER → 2018-03-21 | Outpatient (CLI) | payer MEDICAID ==
[~2018-03-21] MED LIST changes: -BARIUM SUSPENSION 105% (LIQUID POLIBAR PLUS) 240 ML/DOSE PO ONE; -BARIUM SUSPENSION 60% (LIQUID EZ PAQUE) 240 ML DOSE PO ONE; +METF-399 PO; -METF10002 PO
--- NOTE | 2018-03-21 12:11 | Diagnostic Imaging Report ---
PROCEDURE: MRI lumbar spine. INDICATION: Status post fall one week ago, low back pain with right hip and leg pain since then. TECHNIQUE: Multiplanar and multisequence noncontrast magnetic resonance imagine was performed of the lumbar spine. CORRELATION STUDY: None FINDINGS: Examination compromised by some patient motion artifact. There is normal alignment and curvature of the lumbar spine. The lumbar vertebral body heights are maintained and without geographic lesion. Previously noted T2 signal changes of posterior elements at right L3-L4 level appear resolved. The conus appears unremarkable. L5-S1: Slight loss of disc space height. Very slight left paramedian disc protrusion. There is continued mild narrowing at the bilateral ventral lateral recesses. Very mild facet arthropathy. Bilateral foraminal narrowing with some abutment of the exiting nerve roots continues. L4-L5: Loss of disc space height. Broad-based disc bulge. Disc and osteophyte results in bilateral foraminal narrowing, greatest on the right. Mild ligamentum and facet hypertrophy with mild trefoil-type spinal canal narrowing. L3-L4: Mild diffuse disc bulge. Mild to moderate facet arthropathy. Very slight bilateral foraminal narrowing without significant nerve impingement. Disc space overall is fairly well maintained in signal intensity and height. L2-L3: Mild loss of intrasubstance signal intensity. No significant stenosis. Mild diffuse bulge. L1-L2: Unremarkable. The visualized portions of the abdominal aorta and kidneys are negative. No pathologically enlarged central retroperitoneal lymph nodes. IMPRESSION: 1. Mild multilevel degenerative changes again demonstrated. Findings most severe at the L4 and L5 and L5-S1 levels. Disc and osteophyte formation results in bilateral foraminal and ventral lateral recess narrowing. Findings appearing generally stable. Dictated by: Dictated on workstation # [id number]
== END ==
LOC: RAD 10:11
PROVIDERS: ATTEND Family Medicine
DX: M48.061 Spinal stenosis, lumbar region without neurogenic claudication (principal); M47.27 Other spondylosis with radiculopathy, lumbosacral region; M25.78 Osteophyte, vertebrae; M99.73 Connective tissue and disc stenosis of intervertebral foramina of lumbar region; W19.XXXA Unspecified fall, initial encounter
CPT/HCPCS: 72148

== ENCOUNTER 2018-04-03 14:30 | Emergency (ER) | payer MEDICAID ==
[~2018-04-03] VITALS: Ht 172.7 cm; Wt 93.9 kg
--- OUTSIDE RECORDS SUMMARY | 2018-04-03 14:34 | XMS REPORT | Clinical Summary ---
Author Author [facility] Organization [facility] Address Unknown Phone Unavailable Care Team Providers Care Financial Institution President Name Role Phone Aundrea Masters MD PCP Source Comments Some departments are not documenting in the electronic medical record. If you do not see the information that you expected, contact Release of Information in the Health Information Management department at [phone] for further assistance in locating additional records.[facility] Allergies Active Allergy Reactions Severity Noted Date [...] Taken Blood Pressure 134/84 07/19/2016 12:12 PM JOB PRINTER APPRENTICE Pulse 88 07/19/2016 12:12 PM JOB PRINTER APPRENTICE Temperature 36.7 C (98 F) 07/19/2016 12:12 PM JOB PRINTER APPRENTICE Respiratory Rate 22 07/19/2016 12:12 PM JOB PRINTER APPRENTICE Oxygen Saturation 96% 07/19/2016 12:12 PM JOB PRINTER APPRENTICE Inhaled Oxygen - - Concentration Weight 107.5 kg (237 lb) 07/19/2016 12:12 PM JOB PRINTER APPRENTICE Height 172.7 cm (5' 8") 07/19/2016 12:12 PM JOB PRINTER APPRENTICE Body Mass Index 36.04 07/19/2016 12:12 PM JOB PRINTER APPRENTICE Plan of Treatment Health Maintenance Due Date Last Done Comments HEPATITIS C SCREENING 1961 PHYSICAL (COMPREHENSIVE) 02/11/1968 EXAM PERTUSSIS VACCINE 02/11/1972 HIV SCREENING 02/11/1976 TETANUS VACCINE 1978 COLORECTAL CANCER 2011 SCREENING SHINGLES RECOMBINANT 2011 VACCINE (1 of 2) INFLUENZA VACCINE 01/03/2018 Results Not on filefrom Last 3 Months
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
--- OUTSIDE RECORDS SUMMARY | 2018-04-03 14:35 | XMS REPORT ---
Author Author KINJAL DORIS [facility] Address [facility] [place] [address] Care Team Providers Care [place] Consultant Name Role Phone DORIS LAYTON Unavailable PROBLEMS Type Condition ICD9-CM Code UAC69-NS Code Onset Dates Condition Status SNOMED Code Problem Enlarged lymph node R59.9 Active 86829403 Problem Hyperlipidemia, unspecified hyperlipidemia type E78.5 Active 82103955 Problem Tear of right rotator cuff, unspecified tear extent M75.101 Active 363778732 Problem Other chronic pain G89.29 Active 89425824 Problem Internal hemorrhoids K64.8 Active 72915185 Problem Nocturnal hypoxia G47.34 Active 140709343 Problem Panlobular emphysema J43.1 Active 2564825 Problem Hyperplastic colonic polyp, unspecified part of colon K63.5 Active 533407386 Problem Non-seasonal allergic rhinitis due to other allergic trigger J30.89 Active 71308146 Problem Mood disorder F39 Active 45457869 Problem Bipolar disorder, unspecified F31.9 Active 98459333 Problem Uncontrolled type 2 diabetes mellitus with hyperglycemia, without long -term current use of insulin E11.65 Active 588951521 Problem GERD with esophagitis K21.0 Active 499692892 Problem Other osteoarthritis of spine, cervical region M47.892 Active 397784532 Problem Hiatal hernia K44.9 Active 34936284 Problem External hemorrhoids K64.4 Active 93668303 Problem Leukocytosis D72.829 Active 857467805 Problem Hyperlipidemia E78.5 Active 57176295 Problem History of ID (myocardial infarction) I25.2 Active 611154828 Problem Neuropathy G62.9 Active 929603787 Problem Other chronic gastritis without hemorrhage K29.50 Active 0440604 Problem Low back pain M54.5 Active 358633336 Problem Tobacco use Z72.0 Active 485733923 ALLERGIES No Information ENCOUNTERS Encounter Location Date Diagnosis [facility] [id number] [address] Jun, [facility] [address] [address] Mar, [facility] [address] [address] Mar, [facility] [address] [address] Feb, [facility] [id number] [address] Feb, Uncontrolled type 2 diabetes mellitus with hyperglycemia, without long-term current use of insulin E11.65 [facility] [address] [address] 1658 Feb, Mood disorder F39 [facility] [address] [address] 6[address] Jan, [facility] [address] [address] 5298 Jan, Mood disorder F39 [facility] [address] [address] 9[address] Jan, [facility] [address] [address] 2536 Dec, Bipolar disorder, unspecified F31.9 [facility] [address] [address] 0528 Dec, [facility] [address] [address]073 Dec, [facility] [address] [address]- 0948 Dec, [facility] [address] [address] 4515 Dec, Mood disorder F39 [facility] [address] [address]79 Nov, Bipolar disorder, unspecified F31.9 [facility] [id number] [address] 8671 Nov, [facility] [id number] [place] [address] 37329- 1342 Nov, Pain in left knee M25.562 ; Other chronic pain G89.29 ; Hyperlipidemia E78.5 ; Leukocytosis D72.829 ; Other osteoarthritis of spine, cervical region M47.892 ; Tobacco use Z72.0 and Uncontrolled type 2 diabetes mellitus with hyperglycemia, without long-term current use of insulin E11.65 [facility] [id number] [place] [address] 90772- 4505 Nov, [facility] [id number] [place] [address] 58237- 6091 Nov, [facility] [id number] [place] [address] 16683- 9751 October, [facility] [id number] [place] [address] 23959- 2555 October, Low back pain M54.5 [facility] [id number] [place] [address] 95360- 7444 Sep, [facility] [id number] [place] [address] 71374- 1811 Sep, [facility] [id number] [place] [address] 27874- 8136 Sep, Leukocytosis D72.829 [facility] [id number] [place] [address] 49748- 4872 Sep, [facility] [id number] [place] [address] 75108- 7457 Sep, [facility] [address] [address]- 8707 Sep, [facility] [id number] [place] [address] 65179- 6102 Aug, Low back pain M54.5 [facility] [id number] [place] [address] 98272- 5940 Aug, Bipolar disorder, unspecified F31.9 [facility] [id number] [place] [address] 65216- 8755 Aug, [facility] [id number] [place] [address] 27223- 0795 Aug, [facility] [id number] [place] [address] 63148- 4819 Aug, Uncontrolled type 2 diabetes mellitus with hyperglycemia, without long-term current use of insulin E11.65 ; Non-healing surgical wound, initial encounter T81.89XA ; Cellulitis of abdominal wall L03.311 ; Hyperlipidemia E78.5 ; Chronic obstructive pulmonary disease, unspecified COPD type J44.9 and Tobacco use Z72.0 [id number] [place] [address] 94224- 2033 Aug, [facility] [id number] [place] [address] 92963- 6218 Jul, [address] [id number] [place] [address] 74543- 5602 Jul, [address] [facility] [id number] [place] [address] 64681- 2460 Jul, Type 2 diabetes mellitus 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, unspecified care home insulin use status E11.40 [address] [place] [address] 04680- 6166 Jun, Bipolar disorder, unspecified F31.9 [facility] [id number] [place] [address] 82236- 6377 Jun, 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 [address] [place] [id number] [place] [address] 64301- 0102 04 May, 2017 Mood disorder F39 [address] [id number] [place] [address] 06813- 3860 Apr, [address] [place] [id number] [place] [address] 66735- 1751 15 Apr, 2017 Cough R05 and Tobacco use Z72.0 [place] [id number] [place] [address] 14393- 7145 13 Apr, 2017 Cough R05 and Tobacco use Z72.0 [place] [id number] [place] [address] 76474- 9901 06 Apr, 2017 Mood disorder F39 [address] [id number] [place] [address] 09713- 7042 06 Apr, 2017 Low back pain M54.5 [place] [facility] [id number] [place] [address] 75389- 3028 06 Apr, 2017 Uncontrolled type 2 diabetes mellitus with hyperglycemia, without long-term current use of insulin E11.65 [place] [id number] [place] [address] 70147- 8283 03 Apr, 2017 Uncontrolled type 2 diabetes mellitus with hyperglycemia, without long-term current use of insulin E11.65 [place] [facility] [id number] [place] [address] 63236- 0980 Mar, Bipolar disorder, unspecified F31.9 [address] [address]- 9902 Mar, [id number] [place] [address] 67797- 1474 Mar, Bipolar disorder, unspecified F31.9 [address] [place] [address] 69058- 1645 Mar, Mood disorder F39 [id number] [place] [address] 50183- 2668 Feb, [place] [facility] [id number] [place] [address] 00853- 9903 Feb, [place] [id number] [place] [address] 26086- 1287 Feb, [place] [facility] [id number] [place] [address] 78057- 4544 Feb, Bipolar disorder, unspecified F31.9 [address] [place] [address] 91296- 1765 Feb, Uncontrolled type 2 diabetes mellitus with hyperglycemia, without long-term current use of insulin E11.65 ; Encounter for immunization Z23 ; Vasovagal syncope R55 and Low back pain M54.5 [address] [address]- 3698 Jan, Bipolar disorder, unspecified F31.9 [address] [place] [address] 92141- 9085 Jan, [address] [place] [address] 17883- 2574 Jan, Fatigue, unspecified type R53.83 ; Nocturnal hypoxia G47.34 ; Leukocytosis D72.829 ; Other chronic gastritis without hemorrhage K29.50 ; Uncontrolled type 2 diabetes mellitus with hyperglycemia, without long-term current use of insulin E11.65 ; Alternating constipation and diarrhea R19.8 and Chronic obstructive pulmonary disease, unspecified COPD type J44.9 [address] [address]- 5312 Jan, [facility] [address] [place] [address] 63974- 3453 Jan, Leukocytosis D72.829 [facility] [address] [address]- 6414 Jan, Mood disorder F39 [facility] [id number] [place] [address] 08199- 8138 Dec, Bipolar disorder, unspecified F31.9 [facility] [id number] [place] [address] 20976- 2878 Dec, [facility] [address] [address]90 Dec, Acute gastritis without bleeding K29.00 [facility] [address] [place] [address] 10682- 7210 Dec, Leukocytosis D72.829 [facility] [address] [address]- 5900 Dec, [facility] [address] [place] [address] 05263- 1164 Dec, Dental examination Z01.20 [facility] [address] [address]- 0319 Dec, [facility] [address] [address]- 3331 Dec, Leukocytosis D72.829 [facility] [address] [place] [address] 50788- 8680 Dec, Uncontrolled type 2 diabetes mellitus with hyperglycemia, without long-term current use of insulin E11.65 [facility] [address] [address]- 6815 Nov, Dental examination Z01.20 [facility] [id number] [address]- 6717 Nov, [facility] [address] [place] [address] 49326- 4803 Nov, Major depressive disorder, recurrent episode, moderate F33.1 [facility] [address] [address]- 3272 Nov, Leukocytosis D72.829 [address] [id number] [place] [address] 65318- 2291 Nov, Mood disorder F39 [address] [place] [address] 18657- 6280 Nov, Other osteoarthritis of spine, cervical region M47.892 and Uncontrolled type 2 diabetes mellitus with hyperglycemia, without long-term current use of insulin E11.65 [address] [place] [address] 34211- 9520 Nov, Leukocytosis D72.829 and Elevated serum glucose R73.9 [address] [address]- 7365 October, Elevated serum glucose R73.9 [address] [place] [address] 05071- 0765 October, Mood disorder F39 [address] [address]- 7832 Sep, Major depressive disorder, recurrent episode, moderate F33.1 [facility] [address] [address]- 2464 Sep, Mood disorder F39 [address] [place] [address] 97845- 7593 Aug, [facility] [address] [address]- 1229 Jul, Major depressive disorder, recurrent episode, moderate F33.1 [address] [address]- 0781 Jul, Mood disorder F39 [facility] [address] [address]- 3959 Jul, [facility] [address] [address]- 0042 Jul, History of ID (myocardial infarction) I25.2 ; Hyperlipidemia E78.5 ; Prediabetes R73.09 ; Chronic obstructive pulmonary disease, unspecified COPD type J44.[address] Z[address]0 [facility] [address] [address]- 3351 Jun, [facility] [address] [place] [address] 21431- 7573 Jun, Mood disorder F39 [facility] [address] [address]- 4776 Jun, [facility] [address] [place] [address] 37448- 5520 May, Major depressive disorder, recurrent episode, moderate F33.1 and Primary insomnia F51.01 [facility] [address] [address]- 7640 May, Mood disorder F39 [facility] [address] [address]- 4526 Apr, [facility] [address] [address]- 1349 Apr, Mood disorder F39 [facility] [address] [address]- 4803 Apr, [facility] [id number] [address]- 2352 Apr, [facility] [address] [address]- 0945 Apr, Chronic obstructive pulmonary disease, unspecified COPD type J44.9 and Non-seasonal allergic rhinitis due to other allergic trigger J30.89 [facility] [id number] [place] [address] 27462- 5013 Apr, Mood disorder F39 [address] [place] [place] [address] 30757- 4664 Apr, Major depressive disorder, recurrent episode, moderate F33.1 and PTSD (post-traumatic stress disorder) F43.10 [address] 89901- 6615 Apr, [place] [id number] [place] [address] 15205- 3276 Apr, [address] [address] 66425- 8597 Apr, Chest pain, unspecified type R07.9 ; Chronic obstructive pulmonary disease, unspecified COPD type J44.9 ; Hyperlipidemia, unspecified hyperlipidemia type E78.5 and Tobacco use Z72.0 [address] [address] [place] [address] 85823- 7379 Mar, Mood disorder F39 [address] [place] [place] [address] 04352- 6042 Mar, Mood disorder F39 [address] [place] [place] [address] 27540- 9124 Mar, Other osteoarthritis of spine, cervical region M47.892 [place] [address] [place] [address] 17768- 1911 Mar, Tear of right rotator cuff, unspecified tear extent M75.101 [place] [address] [place] [address] 67320- 7021 Mar, [place] [address] [place] [address] 69108- 5424 Mar, Bipolar II disorder F31.81 [place] [address] [place] [address] 23262- 8032 Mar, [place] [address] [place] [address] 25844- 2320 Feb, Impingement syndrome of right shoulder M75.41 ; Tear of right rotator cuff, unspecified tear extent M75.101 and Loose body in right elbow M24.021 [place] [address] [place] [address] 93151- 0539 Jan, [address] [address] 80181- 4428 Jan, [place] [address] [place] [address] 70834- 0544 Jan, Prediabetes R73.09 ; Other chronic pain G89.29 and Pain in right shoulder M25.511 [place] [address] [place] [address] 99747- 3537 Dec, [place] [address] 58630- 7757 Dec, Heartburn R12 and Chest discomfort R07.89 [place] [address] [place] [address] 44983- 9034 Dec, Impingement syndrome of right shoulder M75.41 and 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, 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 [place] [address] [place] [address] 34446- 0947 Nov, [place] [id number] [place] [address] 66684- 8868 Nov, Leukocytosis D72.829 [place] [address] [place] [address] 00289- 5348 Nov, [place] [address] [place] [address] 09117- 4293 Nov, Enlarged lymph node R59.9 ; Chronic obstructive pulmonary disease, unspecified COPD type J44.9 ; Low back pain M54.5 ; Neuropathy G62.9 and Closed nondisplaced fracture of sternal end of right clavicle, sequela S42.017S [place] [address] [place] [address] 20966- 8225 October, [place] [id number] [place] [address] 36164- 1798 October, [place] [address] 38485- 1162 Sep, [place] [address] 63885- 8113 Aug, Double vision H53.2 ; Occipital headache R51 ; Chronic obstructive pulmonary disease, unspecified COPD type J44.9 and Gastroesophageal reflux disease, esophagitis presence not specified K21.9 [place] [address] 02772- 2152 Aug, [place] [address] 73478- 3014 Jul, Enlarged lymph node in neck R59.0 [place] [id number] [place] [address] 75557- 8396 Jul, [place] [id number] [place] [address] 22589- 8961 Jul, Chronic obstructive pulmonary disease, unspecified COPD type J44.9 ; Tobacco use Z72.0 ; Leukocytosis D72.829 ; Hyperlipidemia E78.5 and Neck abscess L02.11 [place] [address] [place] [address] 77456- 6720 Jun, Shortness of breath R06.02 [place] [address] 58144- 8349 May, Leukocytosis D72.829 and Shortness of breath R06.02 [place] [address] [place] [address] 08977- 6969 May, Low back pain M54.5 ; Hyperlipidemia E78.5 ; Leukocytosis D72.829 ; Other osteoarthritis of spine, cervical region M47.892 and Shortness of breath R06.02 [place] [id number] [place] [address] 87676- 3886 Feb, Chest pain 786.50 ; Tobacco use 305.1 ; Back pain 724.5 and Hyperlipemia 272.[address] 43005- 4306 Jan, [address] 45556- 3212 Jan, Chronic low back pain 724.2 and Degenerative arthritis of cervical spine 721.[address] 06366- 6909 Jan, Chronic low back pain 724.2 and Neck pain 723.[address] 63776- 3299 Dec, Chronic low back pain 724.2 and Neck pain 723.[address] 14974- 3772 Nov, Chest pain 786.50 ; Dyspnea 786.09 ; Tobacco use 305.1 and Back pain 724.5 [place] [id number] [place] [address] 77097- 1279 Nov, [address] 42884- 4174 Nov, Disability examination V68.01 and Muscle pain 729.[address] 27898- 8191 October, History of ID (myocardial infarction) 412 ; Hyperlipidemia LDL goal < 100 272.4 ; Leukocytosis 288.60 and Glucose intolerance (pre-diabetes ) 790.[address] 04964- 0074 October, Chest pain 786.50 ; Chronic low back pain 724.2 ; History of ID (myocardial infarction) [address] [facility] [address] [facility] [id number] [address]- 3847 October, Chronic low back pain 724.2 ; Chest pain 786.50 ; History of ID (myocardial infarction) 412 and Neuropathy 355.9 IMMUNIZATIONS No Known Immunizations SOCIAL HISTORY Never Assessed REASON FOR VISIT BS concerns PLAN OF CARE VITAL SIGNS MEDICATIONS [...] around the heart - dx by dr glodman Surgical History hernia repair Surgical History RUE [...]
--- OUTSIDE RECORDS SUMMARY | 2018-04-03 14:35 | XMS REPORT ---
Author Author KINJAL DORIS [facility] Address [facility] [place] [address] Care Team Providers Care Pilot Control Operator Name Role Phone DORIS LAYTON Unavailable PROBLEMS Type Condition ICD9-CM Code TBV66-LK Code Onset Dates Condition Status SNOMED Code Problem Enlarged lymph node R59.9 Active 61168900 Problem Hyperlipidemia, unspecified hyperlipidemia type E78.5 Active 62208543 Problem Tear of right rotator cuff, unspecified tear extent M75.101 Active 012420246 Problem Other chronic pain G89.29 Active 52866731 Problem Internal hemorrhoids K64.8 Active 70426866 Problem Nocturnal hypoxia G47.34 Active 399122608 Problem Panlobular emphysema J43.1 Active 0968166 Problem Hyperplastic colonic polyp, unspecified part of colon K63.5 Active 967726152 Problem Non-seasonal allergic rhinitis due to other allergic trigger J30.89 Active 15681502 Problem Mood disorder F39 Active 87691255 Problem Bipolar disorder, unspecified F31.9 Active 93260015 Problem Uncontrolled type 2 diabetes mellitus with hyperglycemia, without long -term current use of insulin E11.65 Active 316529074 Problem GERD with esophagitis K21.0 Active 911710923 Problem Other osteoarthritis of spine, cervical region M47.892 Active 744768721 Problem Hiatal hernia K44.9 Active 36462958 Problem External hemorrhoids K64.4 Active 70115443 Problem Leukocytosis D72.829 Active 936748448 Problem Hyperlipidemia E78.5 Active 26105358 Problem History of [place] (myocardial infarction) I25.2 Active 393062523 Problem Neuropathy G62.9 Active 375953735 Problem Other chronic gastritis without hemorrhage K29.50 Active 6580477 Problem Low back pain M54.5 Active 184667065 Problem Tobacco use Z72.0 Active 323398412 ALLERGIES No Information ENCOUNTERS Encounter Location Date Diagnosis [facility] [id number] [address] Jun, [facility] [address] [address] Mar, [facility] [address], [place] [address] 7145 Mar, [facility] [address] [address] 3596 Feb, [facility] [id number] [place] [address] 520789- 2165 Feb, [facility] [id number] [place] [address] 341112- 1463 Feb, Uncontrolled type 2 diabetes mellitus with hyperglycemia, without long-term current use of insulin E11.65 [facility] [address] [address] Feb, Mood disorder F39 [facility] [address], [place] [address] 7[address] Jan, [facility] [address], [place] [address] 8074 Jan, Mood disorder F39 [facility] [address], [place] [address] 9[address] Jan, [facility] [address], [place] [address] 9[address] Dec, Bipolar disorder, unspecified F31.9 [facility] [address], [place] [address] 2474 Dec, [facility] [address], [place] [address] 5086 Dec, [facility] [address], [place] [address] 6622 Dec, [facility] [address], [place] [address] 6538 Dec, Mood disorder F39 [facility] [address], [place] [address] 7100 Nov, Bipolar disorder, unspecified F31.9 [facility] [id number] [place] [address] 08187- 0998 Nov, [facility] [id number] [place] [address] 14265- 5360 Nov, Pain in left knee M25.562 ; Other chronic pain G89.29 ; Hyperlipidemia E78.5 ; Leukocytosis D72.829 ; Other osteoarthritis of spine, cervical region M47.892 ; Tobacco use Z72.0 and Uncontrolled type 2 diabetes mellitus with hyperglycemia, without long-term current use of insulin E11.65 [facility] [id number] [place] [address] 29466- 4574 Nov, [facility] [id number] [place] [address] 36513- 1862 Nov, [facility] [id number] [place] [address] 36176- 7906 October, [facility] [id number] [place] [address] 83722- 7390 October, Low back pain M54.5 [facility] [id number] [place] [address] 23252- 9839 Sep, [facility] [id number] [place] [address] 87583- 1874 Sep, [facility] [id number] [place] [address] 34146- 1197 Sep, Leukocytosis D72.829 [facility] [id number] [place] [address] 04906- 3156 Sep, [facility] [id number] [place] [address] 07661- 1252 Sep, [facility] [id number] [place] [address] 86420- 0434 Sep, [facility] [address] [place] [address] 22458- 3819 Aug, Low back pain M54.5 [facility] [id number] [place] [address] 80955- 2345 Aug, Bipolar disorder, unspecified F31.9 [facility] [id number] [place] [address] 67405- 8757 Aug, [facility] [id number] [place] [address] 31607- 7203 Aug, [facility] [id number] [place] [address] 99123- 6017 Aug, Uncontrolled type 2 diabetes mellitus with hyperglycemia, without long-term current use of insulin E11.65 ; Non-healing surgical wound, initial encounter T81.89XA ; Cellulitis of abdominal wall L03.311 ; Hyperlipidemia E78.5 ; Chronic obstructive pulmonary disease, unspecified COPD type J44.9 and Tobacco use Z72.0 [facility] [id number] [place] [address] 84467- 0613 Aug, [facility] [id number] [place] [address] 48827- 0123 Jul, [facility] [address] [place] [address] 80771- 7831 Jul, [facility] [id number] [place] [address] 82460- 6190 Jul, Type 2 diabetes mellitus 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, unspecified 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 designer insulin use status E11.40 [facility] [id number] [place] [address] 23108- 4375 Jun, Bipolar disorder, unspecified F31.9 [facility] [id number] [place] [address] 00777- 5271 Jun, [facility] [id number] [place] [address] 52667- 6439 Jun, Bipolar disorder, unspecified F31.9 [facility] [id number] [place] [address] 30237- 1887 Jun, Mood disorder F39 [facility] [id number] [place] [address] 92835- 3306 Jun, [facility] [id number] [place] [address] 97287- 7731 May, Fissure in skin of foot R23.4 ; Callus of foot L84 and Type 2 diabetes mellitus 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, unspecified 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 designer insulin use status E11.40 [facility] [id number] [place] [address] 05718- 2224 May, Mood disorder F39 [facility] [id number] [place] [address] 10218- 3185 Apr, [facility] [id number] [place] [address] 24011- 8452 Apr, Cough R05 and Tobacco use Z72.0 [facility] [id number] [place] [address] 57226- 8851 Apr, Cough R05 and Tobacco use Z72.0 [facility] [id number] [place] [address] 28841- 2960 Apr, Mood disorder F39 [facility] [id number] [place] [address] 01471- 9079 Apr, Low back pain M54.5 [facility] [id number] [place] [address] 68612- 3516 Apr, Uncontrolled type 2 diabetes mellitus with hyperglycemia, without long-term current use of insulin E11.65 [facility] [id number] [place] [address] 64968- 2330 03 Apr, 2017 Uncontrolled type 2 diabetes mellitus with hyperglycemia, without long-term current use of insulin E11.65 [facility] [address] [place] [address]- 2882 Mar, Bipolar disorder, unspecified F31.9 [facility] [id number] [place] [address] 86271- 3888 Mar, [facility] [id number] [place] [address] 24743- 5822 Mar, Bipolar disorder, unspecified F31.9 [facility] [id number] [place] [address] 62170- 4445 Mar, Mood disorder F39 [facility] [id number] [place] [address] 48595- 2972 Feb, [facility] [id number] [place] [address] 81123- 7062 Feb, [facility] [id number] [place] [address] 67759- 4845 Feb, [facility] [id number] [place] [address] 45915- 8531 Feb, Bipolar disorder, unspecified F31.9 [facility] [id number] [place] [address] 93978- 3082 Feb, Uncontrolled type 2 diabetes mellitus with hyperglycemia, without long-term current use of insulin E11.65 ; Encounter for immunization Z23 ; Vasovagal syncope R55 and Low back pain M54.5 [facility] [id number] [place] [address] 31795- 8019 Jan, Bipolar disorder, unspecified F31.9 [facility] [id number] [place] [address] 48087- 1789 Jan, [facility] [id number] [place] [address] 15861- 7150 Jan, Fatigue, unspecified type R53.83 ; Nocturnal hypoxia G47.34 ; Leukocytosis D72.829 ; Other chronic gastritis without hemorrhage K29.50 ; Uncontrolled type 2 diabetes mellitus with hyperglycemia, without long-term current use of insulin E11.65 ; Alternating constipation and diarrhea R19.8 and Chronic obstructive pulmonary disease, unspecified COPD type J44.9 [facility] [id number] [place] [address] 24064- 9978 Jan, [facility] [id number] [place] [address] 39067- 4533 Jan, Leukocytosis D72.829 [facility] [id number] [place] [address] 39168- 1267 Jan, Mood disorder F39 [facility] [id number] [place] [address] 76880- 4098 Dec, Bipolar disorder, unspecified F31.9 [facility] [id number] [place] [address] 72923- 5985 Dec, [facility] [id number] [place] [address] 82493 -4408 Dec, Acute gastritis without bleeding K29.00 [facility] [id number] [place] [address] 86908- 8567 Dec, Leukocytosis D72.829 [address] [id number] [place] [address] 64758- 6007 Dec, [facility] [id number] [place] [address] 67419- 1163 Dec, Dental examination Z01.20 [facility] [id number] [place] [address] 79775- 0848 Dec, [facility] [id number] [place] [address] 21760- 8091 Dec, Leukocytosis D72.829 [facility] [id number] [place] [address] 45888- 9068 Dec, Uncontrolled type 2 diabetes mellitus with hyperglycemia, without long-term current use of insulin E11.65 [facility] [id number] [place] [address] 06966- 5321 Nov, Dental examination Z01.20 [facility] [address] [address]- 8248 Nov, [facility] [id number] [place] [address] 42541- 8125 Nov, Major depressive disorder, recurrent episode, moderate F33.1 [facility] [id number] [place] [address] 43864- 9501 Nov, Leukocytosis D72.829 [facility] [address] [place] [address] 16022- 0206 Nov, Mood disorder F39 [facility] [id number] [place] [address] 84216- 0441 Nov, Other osteoarthritis of spine, cervical region M47.892 and Uncontrolled type 2 diabetes mellitus with hyperglycemia, without long-term current use of insulin E11.65 [facility] [address] [place] [address] 34562- 1432 Nov, Leukocytosis D72.829 and Elevated serum glucose R73.9 [facility] [id number] [place] [address] 57313- 4862 October, Elevated serum glucose R73.9 [facility] [id number] [place] [address] 04614- 5987 October, Mood disorder F39 [facility] [address] [place] [address] 02238- 2646 Sep, Major depressive disorder, recurrent episode, moderate F33.1 [facility] [address] [address]- 2376 Sep, Mood disorder F39 [facility] [address] [place] [address] 33741- 1420 Aug, [facility] [address] [place] [address] 54314- 5180 Jul, Major depressive disorder, recurrent episode, moderate F33.1 [facility] [address] [address]- 8595 Jul, Mood disorder F39 [facility] [address] [address]- 7225 Jul, [facility] [address] [place] [address] 59665- 1491 Jul, History of [place] (myocardial infarction) I25.2 ; Hyperlipidemia E78.5 ; Prediabetes R73.09 ; Chronic obstructive pulmonary disease, unspecified COPD type J44.9 and Tobacco use Z72.0 [facility] [id number] [place] [address] 57419- 9274 Jun, [facility] [id number] [place] [address] 51064- 4249 Jun, Mood disorder F39 [facility] [id number] [place] [address] 89903- 8809 Jun, [facility] [address] [place] [address] 47497- 5124 May, Major depressive disorder, recurrent episode, moderate F33.1 and Primary insomnia F51.01 [facility] [address] [address]- 6150 May, Mood disorder F39 [facility] [address] [address]- 3733 Apr, [facility] [address], [place] [address]- 7347 Apr, Mood disorder F39 [facility] [address], [place] [address]- 0161 Apr, [facility] [address] [address]- 5569 Apr, [facility] [id number] [place] [address] 48410- 3219 Apr, Chronic obstructive pulmonary disease, unspecified COPD type J44.9 and Non-seasonal allergic rhinitis due to other allergic trigger J30.89 [facility] [id number] [place] [address] 93348- 4071 Apr, Mood disorder F39 [facility] [id number] [place] [address] 72454- 4989 Apr, Major depressive disorder, recurrent episode, moderate F33.1 and PTSD (post-traumatic stress disorder) F43.10 [facility] [id number] [place] [address] 47178- 7845 Apr, [facility] [id number] [place] [address] 39971- 1476 Apr, [facility] [id number] [place] [address] 12339- 4890 Apr, Chest pain, unspecified type R07.9 ; Chronic obstructive pulmonary disease, unspecified COPD type J44.9 ; Hyperlipidemia, unspecified hyperlipidemia type E78.5 and Tobacco use Z72.0 [facility] [id number] [place] [address] 30956- 5114 Mar, Mood disorder F39 [facility] [address] [place] [address] 57487- 2108 Mar, Mood disorder F39 [facility] [id number] [place] [address] 14019- 0328 Mar, Other osteoarthritis of spine, cervical region M47.892 [facility] [id number] [place] [address] 38136- 0445 Mar, Tear of right rotator cuff, unspecified tear extent M75.101 [facility] [id number] [place] [address] 93673- 7704 Mar, [facility] [id number] [place] [address] 46161- 5648 Mar, Bipolar II disorder F31.81 [facility] [id number] [place] [address] 50023- 2702 Mar, [facility] [id number] [place] [address] 32691- 8799 Feb, Impingement syndrome of right shoulder M75.41 ; Tear of right rotator cuff, unspecified tear extent M75.101 and Loose body in right elbow M24.021 [facility] [id number] [place] [address] 26471- 8114 Jan, [facility] [id number] [place] [address] 63989- 6083 Jan, [facility] [id number] [place] [address] 55821- 0383 Jan, Prediabetes R73.09 ; Other chronic pain G89.29 and Pain in right shoulder M25.511 [facility] [id number] [place] [address] 76528- 4810 Dec, [facility] [id number] [place] [address] 06602- 7335 Dec, Heartburn R12 and Chest discomfort R07.89 [facility] [id number] [place] [address] 78309- 2350 Dec, Impingement syndrome of right shoulder M75.41 and 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, 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 [facility] [id number] [place] [address] 50410- 4677 Nov, [facility] [id number] [place] [address] 62394- 2914 Nov, Leukocytosis D72.829 [facility] [id number] [place] [address] 02945- 0260 Nov, [facility] [id number] [place] [address] 60459- 8743 Nov, Enlarged lymph node R59.9 ; Chronic obstructive pulmonary disease, unspecified COPD type J44.9 ; Low back pain M54.5 ; Neuropathy G62.9 and Closed nondisplaced fracture of sternal end of right clavicle, sequela S42.017S [facility] [id number] [place] [address] 65163- 0284 October, [facility] [id number] [place] [address] 28476- 4979 October, [facility] [id number] [place] [address] 58873- 4585 Sep, [facility] [address] 68020- 1293 Aug, Double vision H53.2 ; Occipital headache R51 ; Chronic obstructive pulmonary disease, unspecified COPD type J44.9 and Gastroesophageal reflux disease, esophagitis presence not specified K21.9 [facility] [id number] [place] [address] 49706- 9445 Aug, [facility] [id number] [place] [address] 64664- 4039 Jul, Enlarged lymph node in neck R59.0 [facility] [id number] [place] [address] 45016- 9850 Jul, [facility] [id number] [place] [address] 79473- 8789 Jul, Chronic obstructive pulmonary disease, unspecified COPD type J44.9 ; Tobacco use Z72.0 ; Leukocytosis D72.829 ; Hyperlipidemia E78.5 and Neck abscess L02.11 [facility] [id number] [place] [address] 04023- 0023 Jun, Shortness of breath R06.02 [facility] [id number] [place] [address] 64865- 9604 May, Leukocytosis D72.829 and Shortness of breath R06.02 [facility] [id number] [place] [address] 34091- 3807 May, Low back pain M54.5 ; Hyperlipidemia E78.5 ; Leukocytosis D72.829 ; Other osteoarthritis of spine, cervical region M47.892 and Shortness of breath R06.02 [facility] [id number] [place] [address] 01732- 8247 Feb, Chest pain 786.50 ; Tobacco use 305.1 ; Back pain 724.5 and Hyperlipemia 272.4 [facility] [id number] [place] [address] 80162- 6027 Jan, [facility] [address] 70425- 3919 Jan, Chronic low back pain 724.2 and Degenerative arthritis of cervical spine 721.[address] 17310- 2812 Jan, Chronic low back pain 724.2 and Neck pain 723.1 [facility] [id number] [place] [address] 58563- 5624 Dec, Chronic low back pain 724.2 and Neck pain 723.1 [facility] [id number] [place] [address] 35856- 9246 Nov, Chest pain 786.50 ; Dyspnea 786.09 ; Tobacco use 305.1 and Back pain 724.5 [facility] [id number] [place] [address] 29398- 9331 Nov, [facility] [id number] [place] [address] 80063- 1092 Nov, Disability examination V68.01 and Muscle pain 729.1 [facility] [id number] [place] [address] 60906- 2205 October, History of [place] (myocardial infarction) 412 ; Hyperlipidemia LDL goal < 100 272.4 ; Leukocytosis 288.60 and Glucose intolerance (pre-diabetes ) 790.29 [facility] [address] [facility] [id number] [place] [address] October, Chest pain 786.50 ; Chronic low back pain 724.2 ; History of [place] (myocardial infarction) 412 and Neuropathy 355.9 [facility] [address] [facility] [id number] [place] [address] October, Chronic low back pain 724.2 ; Chest pain 786.50 ; History of [place] (myocardial infarction) 412 and Neuropathy 355.9 IMMUNIZATIONS No Known Immunizations SOCIAL HISTORY Never Assessed REASON FOR VISIT DM ed PLAN OF CARE VITAL SIGNS MEDICATIONS Unknown [...]
--- OUTSIDE RECORDS SUMMARY | 2018-04-03 14:36 | XMS REPORT ---
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 Name Role Phone MARLIN CARRION Unavailable PROBLEMS Type Condition ICD9-CM Code UBE01-ZY Code Onset Dates Condition Status SNOMED Code Problem Enlarged lymph node R59.9 Active 95029384 Problem Hyperlipidemia, unspecified hyperlipidemia type E78.5 Active 78634048 Problem Tear of right rotator cuff, unspecified tear extent M75.101 Active 329631432 Problem Other chronic pain G89.29 Active 64478633 Problem Internal hemorrhoids K64.8 Active 73729947 Problem Nocturnal hypoxia G47.34 Active 482992342 Problem Panlobular emphysema J43.1 Active 5983384 Problem Hyperplastic colonic polyp, unspecified part of colon K63.5 Active 253055762 Problem Non-seasonal allergic rhinitis due to other allergic trigger J30.89 Active 94420199 Problem Mood disorder F39 Active 80276159 Problem Bipolar disorder, unspecified F31.9 Active 87071779 Problem Uncontrolled type 2 diabetes mellitus with hyperglycemia, without long -term current use of insulin E11.65 Active 887913980 Problem GERD with esophagitis K21.0 Active 498195967 Problem Other osteoarthritis of spine, cervical region M47.892 Active 950628494 Problem Hiatal hernia K44.9 Active 87832393 Problem External hemorrhoids K64.4 Active 63300332 Problem Leukocytosis D72.829 Active 417379890 Problem Hyperlipidemia E78.5 Active 24737276 Problem History of NV (myocardial infarction) I25.2 Active 443297024 Problem Neuropathy G62.9 Active 848678023 Problem Other chronic gastritis without hemorrhage K29.50 Active 9790024 Problem Low back pain M54.5 Active 418997633 Problem Tobacco use Z72.0 Active 654130048 ALLERGIES Substance Reaction Event Type Date Status Peanut (Diagnostic) Unknown Drug Allergy Dec, Active Incruse Ellipta Unknown Drug Allergy Dec, Active Tetracycline HCl nausea and vomiting Drug Allergy Dec, Active Spiriva HandiHaler Suicidal ideation Drug Allergy Dec, Active Ampicillin anaphylaxis Drug Allergy Dec, Active strawberries Unknown Non Drug Allergy Dec, Active penicillin anaphylaxis Non Drug Allergy Dec, Active ENCOUNTERS Encounter Location Date Diagnosis [facility] [address] [address] Jun, [facility] [id number] [place] [address] 71631- 0551 Mar, [facility] [id number] [place] [address] 32895- 1448 Mar, [facility] [id number] [place] [address] 70676- 5933 Feb, Mood disorder F39 [facility] [id number] [place] [address] 78347- 0628 Jan, [facility] [id number] [place] [address] 09991- 9444 Jan, Mood disorder F39 [facility] [id number] [place] [address] 82786- 0985 Jan, [facility] [id number] [place] [address] 63926- 8699 Dec, Bipolar disorder, unspecified F31.9 [facility] [id number] [address] 5[address] Dec, [facility] [address], [place] [address]166 Dec, [facility] [id number] [place] [address] 76408- 1670 Dec, [facility] [address] [address] 5[address] Dec, Mood disorder F39 [facility] [id number] [place] [address] 19477- 0647 Nov, Bipolar disorder, unspecified F31.9 [facility] [id number] [place] [address] 45043- 4056 Nov, [facility] [id number] [place] [address] 11494- 6380 Nov, Pain in left knee M25.562 ; Other chronic pain G89.29 ; Hyperlipidemia E78.5 ; Leukocytosis D72.829 ; Other osteoarthritis of spine, cervical region M47.892 ; Tobacco use Z72.0 and Uncontrolled type 2 diabetes mellitus with hyperglycemia, without long-term current use of insulin E11.65 [facility] [id number] [place] [address] 92005- 4535 Nov, [facility] [id number] [place] [address] 58508- 9797 Nov, [facility] [id number] [place] [address] 04862- 2571 October, [facility] [id number] [place] [address] 36912- 0297 October, Low back pain M54.5 [facility] [id number] [place] [address] 38167- 3358 Sep, [facility] [id number] [place] [address] 41439- 2234 Sep, [facility] [id number] [place] [address] 18927- 7763 Sep, Leukocytosis D72.829 [facility] [id number] [place] [address] 81509- 3232 Sep, [facility] [id number] [place] [address] 35300- 9528 Sep, [facility] [id number] [place] [address] 64911- 5788 Sep, [facility] [address] [place] [address] 5460 Aug, Low back pain M54.5 [facility] [id number] [place] [address] 03391- 3090 Aug, Bipolar disorder, unspecified F31.9 [facility] [id number] [place] [address] 91707- 9596 Aug, [facility] [id number] [place] [address] 32545- 7620 Aug, [facility] [id number] [place] [address] 43048- 1872 Aug, Uncontrolled type 2 diabetes mellitus with hyperglycemia, without long-term current use of insulin E11.65 ; Non-healing surgical wound, initial encounter T81.89XA ; Cellulitis of abdominal wall L03.311 ; Hyperlipidemia E78.5 ; Chronic obstructive pulmonary disease, unspecified COPD type J44.9 and Tobacco use Z72.0 [facility] [id number] [place] [address] 43210- 4785 Aug, [facility] [id number] [place] [address] 18159- 1957 Jul, [facility] [id number] [place] [address] 01109- 1666 Jul, [facility] [id number] [place] [address] 89096- 0622 Jul, Type 2 diabetes mellitus 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, 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 [facility] [id number] [place] [address] 48093- 9559 Jun, Bipolar disorder, unspecified F31.9 [facility] [id number] [place] [address] 05289- 6032 Jun, [facility] [id number] [place] [address] 01325- 4676 Jun, Bipolar disorder, unspecified F31.9 [facility] [id number] [place] [address] 69058- 1688 Jun, Mood disorder F39 [facility] [id number] [place] [address] 99353- 5872 Jun, [facility] [id number] [place] [address] 99483- 3280 May, Fissure in skin of foot R23.4 ; Callus of foot L84 and Type 2 diabetes mellitus 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, unspecified long-term insulin use status E11.40 [facility] [id number] [place] [address] 00226- 4805 04 May, 2017 Mood disorder F39 [facility] [id number] [place] [address] 84818- 7456 Apr, [facility] [id number] [place] [address] 08104- 3038 Apr, Cough R05 and Tobacco use Z72.0 [facility] [id number] [place] [address] 63018- 4888 Apr, Cough R05 and Tobacco use Z72.0 [facility] [id number] [place] [address] 94146- 6435 06 Apr, 2017 Mood disorder F39 [facility] [id number] [place] [address] 76320- 6547 Apr, Low back pain M54.5 [facility] [id number] [place] [address] 74889- 6286 06 Apr, 2017 Uncontrolled type 2 diabetes mellitus with hyperglycemia, without long-term current use of insulin E11.65 [facility] [id number] [place] [address] 19518- 6409 Apr, Uncontrolled type 2 diabetes mellitus with hyperglycemia, without long-term current use of insulin E11.65 [facility] [id number] [place] [address] 53952- 2010 Mar, Bipolar disorder, unspecified F31.9 [facility] [address] [address] 6061 Mar, [facility] [id number] [place] [address] 86569- 5266 Mar, Bipolar disorder, unspecified F31.9 [facility] [id number] [place] [address] 00919- 3836 Mar, Mood disorder F39 [facility] [id number] [place] [address] 92334- 2408 Feb, [facility] [id number] [place] [address] 10028- 8059 Feb, [facility] [id number] [place] [address] 40738- 3604 Feb, [facility] [id number] [place] [address] 08305- 4039 Feb, Bipolar disorder, unspecified F31.9 [facility] [id number] [place] [address] 73551- 3750 Feb, Uncontrolled type 2 diabetes mellitus with hyperglycemia, without long-term current use of insulin E11.65 ; Encounter for immunization Z23 ; Vasovagal syncope R55 and Low back pain M54.5 [facility] [id number] [place] [address] 52134- 6711 Jan, Bipolar disorder, unspecified F31.9 [facility] [id number] [place] [address] 46992- 8078 Jan, [facility] [id number] [place] [address] 68612- 5896 Jan, Fatigue, unspecified type R53.83 ; Nocturnal hypoxia G47.34 ; Leukocytosis D72.829 ; Other chronic gastritis without hemorrhage K29.50 ; Uncontrolled type 2 diabetes mellitus with hyperglycemia, without long-term current use of insulin E11.65 ; Alternating constipation and diarrhea R19.8 and Chronic obstructive pulmonary disease, unspecified COPD type J44.9 [facility] [id number] [place] [address] 84092- 5888 Jan, [facility] [id number] [place] [address] 46297- 5145 Jan, Leukocytosis D72.829 [facility] [id number] [place] [address] 62918- 4596 Jan, Mood disorder F39 [facility] [id number] [place] [address] 92744- 9270 Dec, Bipolar disorder, unspecified F31.9 [facility] [id number] [place] [address] 45049- 1222 Dec, [facility] [id number] [place] [address] 28198 -8433 Dec, Acute gastritis without bleeding K29.00 [facility] [id number] [place] [address] 29217- 1876 Dec, Leukocytosis D72.829 [facility] [id number] [place] [address] 17133- 9885 Dec, [facility] [id number] [place] [address] 13384- 0686 Dec, Dental examination Z01.20 [facility] [id number] [place] [address] 74608- 1664 Dec, [facility] [id number] [place] [address] 54770- 8609 Dec, Leukocytosis D72.829 [facility] [id number] [place] [address] 21461- 6832 Dec, Uncontrolled type 2 diabetes mellitus with hyperglycemia, without long-term current use of insulin E11.65 [facility] [address] [place] [address] 33764- 8048 Nov, Dental examination Z01.20 [facility] [address], [place] [address]- 9132 Nov, [facility] [id number] [place] [address] 47459- 0085 Nov, Major depressive disorder, recurrent episode, moderate F33.1 [facility] [address], [place] [address]- 0289 Nov, Leukocytosis D72.829 [facility] [id number] [place] [address] 26949- 9064 Nov, Mood disorder F39 [facility] [address] [place] [address] 09152- 2694 Nov, Other osteoarthritis of spine, cervical region M47.892 and Uncontrolled type 2 diabetes mellitus with hyperglycemia, without long-term current use of insulin E11.65 [facility] [address] [place] [address] 23080- 7301 Nov, Leukocytosis D72.829 and Elevated serum glucose R73.9 [facility] [address] [address]- 3683 October, Elevated serum glucose R73.9 [facility] [id number] [place] [address] 41129- 2083 October, Mood disorder F39 [facility] [address] [address]- 9970 Sep, Major depressive disorder, recurrent episode, moderate F33.1 [facility] [address], [place] [address]- 8115 Sep, Mood disorder F39 [facility] [id number] [place] [address] 20634- 6986 Aug, [facility] [address], [place] [address]- 7384 Jul, Major depressive disorder, recurrent episode, moderate F33.1 [facility] [id number] [address]- 5907 Jul, Mood disorder F39 [facility] [id number] [place] [address] 64460- 2836 Jul, [facility] [id number] [place] [address] 72785- 6014 Jul, History of NV (myocardial infarction) I25.2 ; Hyperlipidemia E78.5 ; Prediabetes R73.09 ; Chronic obstructive pulmonary disease, unspecified COPD type J44.9 and Tobacco use Z72.0 [facility] [id number] [place] [address] 90053- 0178 Jun, [facility] [id number] [place] [address] 16976- 2001 Jun, Mood disorder F39 [facility] [id number] [place] [address] 20054- 1631 Jun, [facility] [id number] [place] [address] 56816- 8008 May, Major depressive disorder, recurrent episode, moderate F33.1 and Primary insomnia F51.01 [facility] [id number] [place] [address] 04792- 4085 May, Mood disorder F39 [facility] [address] [place] [address] 75190- 9565 Apr, [facility] [id number] [place] [address] 26616- 4523 Apr, Mood disorder F39 [facility] [address] [address]- 6886 Apr, [facility] [id number] [place] [address] 78048- 2950 Apr, [facility] [address] [place] [address] 23991- 2375 Apr, Chronic obstructive pulmonary disease, unspecified COPD type J44.9 and Non-seasonal allergic rhinitis due to other allergic trigger J30.89 [facility] [id number] [place] [address] 71929- 5759 Apr, Mood disorder F39 [facility] [id number] [place] [address] 48642- 5646 Apr, Major depressive disorder, recurrent episode, moderate F33.1 and PTSD (post-traumatic stress disorder) F43.10 [facility] [id number] [place] [address] 12654- 5251 Apr, [facility] [id number] [place] [address] 37762- 2201 Apr, [facility] [address] 56721- 7073 Apr, Chest pain, unspecified type R07.9 ; Chronic obstructive pulmonary disease, unspecified COPD type J44.9 ; Hyperlipidemia, unspecified hyperlipidemia type E78.5 and Tobacco use Z72.0 [facility] [id number] [place] [address] 15866- 4856 Mar, Mood disorder F39 [facility] [id number] [place] [address] 29983- 8485 Mar, Mood disorder F39 [facility] [id number] [place] [address] 20031- 5826 Mar, Other osteoarthritis of spine, cervical region M47.892 [facility] [id number] [place] [address] 56948- 0005 Mar, Tear of right rotator cuff, unspecified tear extent M75.101 [facility] [address] 82461- 8651 Mar, [facility] [address] 69270- 3868 Mar, Bipolar II disorder F31.81 [facility] [address] 85102- 7935 Mar, [facility] [id number] [place] [address] 94077- 0108 Feb, Impingement syndrome of right shoulder M75.41 ; Tear of right rotator cuff, unspecified tear extent M75.101 and Loose body in right elbow M24.021 [facility] [id number] [place] [address] 95369- 5981 Jan, [facility] [address] 43599- 1680 Jan, [facility] [address] 21314- 4674 Jan, Prediabetes R73.09 ; Other chronic pain G89.29 and Pain in right shoulder M25.511 [facility] [facility] [address] 22458- 6401 Dec, [facility] [address] 40030- 6044 Dec, Heartburn R12 and Chest discomfort R07.[address] 15341- 3483 Dec, Impingement syndrome of right shoulder M75.41 and 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, 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 [facility] [id number] [place] [address] 49309- 7876 Nov, [facility] [id number] [place] [address] 13309- 8899 Nov, Leukocytosis D72.829 [facility] [address] 16741- 2062 Nov, [facility] [id number] [place] [address] 73026- 0210 Nov, Enlarged lymph node R59.9 ; Chronic obstructive pulmonary disease, unspecified COPD type J44.9 ; Low back pain M54.5 ; Neuropathy G62.9 and Closed nondisplaced fracture of sternal end of right clavicle, sequela S42.017S [facility] [id number] [place] [address] 30188- 5407 October, [facility] [id number] [place] [address] 42050- 9942 October, [facility] [address] 40941- 1024 Sep, [facility] [address] 06250- 7115 Aug, Double vision H53.2 ; Occipital headache R51 ; Chronic obstructive pulmonary disease, unspecified COPD type J44.9 and Gastroesophageal reflux disease, esophagitis presence not specified K21.9 [facility] [address] 56076- 0943 Aug, [facility] [address] 07900- 1049 Jul, Enlarged lymph node in neck R59.0 [facility] [address] 74913- 3389 Jul, [facility] [id number] [place] [address] 85316- 1651 Jul, Chronic obstructive pulmonary disease, unspecified COPD type J44.9 ; Tobacco use Z72.0 ; Leukocytosis D72.829 ; Hyperlipidemia E78.5 and Neck abscess L02.11 [facility] [id number] [place] [address] 50459- 7877 Jun, Shortness of breath R06.02 [facility] [address] 96580- 9742 May, Leukocytosis D72.829 and Shortness of breath R06.02 [facility] [id number] [place] [address] 53715- 6132 May, Low back pain M54.5 ; Hyperlipidemia E78.5 ; Leukocytosis D72.829 ; Other osteoarthritis of spine, cervical region M47.892 and Shortness of breath R06.[address] 85002- 1352 Feb, Chest pain 786.50 ; Tobacco use 305.1 ; Back pain 724.5 and Hyperlipemia 272.[address] 67981- 3825 Jan, [address] 82540- 8425 Jan, Chronic low back pain 724.2 and Degenerative arthritis of cervical spine 721.[address] 36249- 7554 Jan, Chronic low back pain 724.2 and Neck pain 723.[address] 29164- 2825 Dec, Chronic low back pain 724.2 and Neck pain 723.[address] 49938- 5763 Nov, Chest pain 786.50 ; Dyspnea 786.09 ; Tobacco use 305.1 and Back pain 724.[address] 84555- 9802 Nov, [address] 21969- 1154 Nov, Disability examination V68.01 and Muscle pain 729.[address] 16292- 1681 October, History of NV (myocardial infarction) 412 ; Hyperlipidemia LDL goal < 100 272.4 ; Leukocytosis 288.60 and Glucose intolerance (pre-diabetes ) 790.[address] 76215- 2759 October, Chest pain 786.50 ; Chronic low back pain 724.2 ; History of NV (myocardial infarction) 412 and Neuropathy 355.9 [facility] [address] [facility] [id number] [place] [address]- 3506 October, Chronic low back pain 724.2 ; Chest pain 786.50 ; History of NV (myocardial infarction) 412 and Neuropathy 355.9 IMMUNIZATIONS No Known Immunizations SOCIAL HISTORY Never Assessed REASON FOR VISIT sherice/janey Enriquez MA PLAN OF CARE Activity Details Follow Up 5-6 months, prn Reason: VITAL SIGNS Height 68 in 2017-12-25 Weight 246.4 lbs 2017-12-25 Heart Rate 97 bpm 2017-12-25 Respiratory Rate 20 2017-12-25 Oximetry 95 % 2017-12-25 BMI 37.46 kg/m2 2017-12-25 Blood pressure systolic 122 mmHg 2017-12-25 Blood pressure diastolic 80 mmHg 2017-12-25 MEDICATIONS Medication Instructions Dosage Frequency Start Date End Date Duration Status Singulair 10 mg Orally Once a day 1 tablet in the evening 24h 90 days Active Trazodone HCl 150 MG orally at night as needed for sleep 0.5 tablet Active Blood Glucose Test - and lancets. DX E11.65 2 times a day- 3 times weekly. test blood sugar 16 Active Proventil HFA 108 (90 Base) MCG/ACT Inhalation every 4 hrs 2 puffs as needed 4h Jul, Active ZyrTEC 10 MG Orally Once a day 1 tablet 24h Active Carafate 1 GM Orally 4 times a day x 2 weeks then prn 1 tablet on an empty stomach Active Metformin HCl 1000 MG Orally Twice a day 1 tablet with meals 12h 90 days Active Seroquel 300 MG Orally at night 1.5 tabs Dec, 30 days Active Naproxen Orally 2 times a day 12h Active Aspir-81 81 MG Orally Once a day 1 tablet 24h Active Lasix 20 MG Orally Once a day 1 tablet 24h Active Albuterol Sulfate (2.5 MG/3ML) 0.083% Inhalation 4 times a day 3 ml 6h Active Symbicort 160-4.5 MCG/ACT INHALE TWO PUFFS BY MOUTH TWICE DAILY 30 Active Baclofen 10 mg Orally once daily PRN 1 tablet with food or milk as needed Aug, Active Crestor 10 MG Orally Once a day 1 tablet 24h Active Dexilant 60 MG TAKE ONE CAPSULE BY MOUTH ONCE DAILY 90 Active Blood Glucose Monitor System w/Device DX- E 11.65 2 times a day- 3 times weekly. test blood sugar Nov, Active Oxygen inhalation Portable 2 liters per minute Active Potassium Chloride Patrica ER 20 MEQ Orally Once a day 1 tablet with food 24h Active Nebulizer - Active Citalopram Hydrobromide 40 MG Orally Once a day 1 tablet 24h 30 days Active Furosemide 40 MG Orally Once a day 1 tablet [...]
--- OUTSIDE RECORDS SUMMARY | 2018-04-03 14:36 | XMS REPORT ---
Author Author KINJAL DORIS [facility] Address [facility] [place] [address] Care Team Providers Care Security Sales Consultant Name Role Phone DORIS LAYTON Unavailable PROBLEMS Type Condition ICD9-CM Code ZDK68-QS Code Onset Dates Condition Status SNOMED Code Problem Enlarged lymph node R59.9 Active 74729584 Problem Hyperlipidemia, unspecified hyperlipidemia type E78.5 Active 76728024 Problem Tear of right rotator cuff, unspecified tear extent M75.101 Active 025375033 Problem Other chronic pain G89.29 Active 46911945 Problem Internal hemorrhoids K64.8 Active 32308605 Problem Nocturnal hypoxia G47.34 Active 937937089 Problem Panlobular emphysema J43.1 Active 6518274 Problem Hyperplastic colonic polyp, unspecified part of colon K63.5 Active 374933464 Problem Non-seasonal allergic rhinitis due to other allergic trigger J30.89 Active 52223714 Problem Mood disorder F39 Active 39868357 Problem Bipolar disorder, unspecified F31.9 Active 11538393 Problem Uncontrolled type 2 diabetes mellitus with hyperglycemia, without long -term current use of insulin E11.65 Active 936482568 Problem GERD with esophagitis K21.0 Active 652081334 Problem Other osteoarthritis of spine, cervical region M47.892 Active 187113042 Problem Hiatal hernia K44.9 Active 06418367 Problem External hemorrhoids K64.4 Active 03182297 Problem Leukocytosis D72.829 Active 701476986 Problem Hyperlipidemia E78.5 Active 05385454 Problem History of ME (myocardial infarction) I25.2 Active 131866181 Problem Neuropathy G62.9 Active 723806743 Problem Other chronic gastritis without hemorrhage K29.50 Active 4271885 Problem Low back pain M54.5 Active 399696652 Problem Tobacco use Z72.0 Active 432112686 ALLERGIES No Information ENCOUNTERS Encounter Location Date Diagnosis [facility] [place] [id number] [address] Jun, [facility] [address] [facility] [id number] [place] [address] Mar, [facility] [id number] [place] [address] Mar, [facility] [id number] [place] [address] Feb, Mood disorder F39 [facility] [id number] [place] [address] Jan, [facility] [id number] [place] [address] Jan, Mood disorder F39 [facility] [id number] [place] [address] Jan, [facility] [address] [address] Dec, Bipolar disorder, unspecified F31.9 [facility] [place] [facility] [id number] [place] [address] Dec, [facility] [id number] [address] Dec, [facility] [address] [address] Dec, [facility] [address] [address] Dec, Mood disorder F39 [facility] [id number] [address] Nov, Bipolar disorder, unspecified F31.9 [facility] [id number] [place] [address] Nov, [facility] [id number] [address] [address] Nov, Pain in left knee M25.562 ; Other chronic pain G89.29 ; Hyperlipidemia E78.5 ; Leukocytosis D72.829 ; Other osteoarthritis of spine, cervical region M47.892 ; Tobacco use Z72.0 and Uncontrolled type 2 diabetes mellitus with hyperglycemia, without long-term current use of insulin E11.65 [facility] [place] [address] [address] 14 Nov, 2017 [facility] [place] [id number] [place] [address] 70493- 0038 Nov, [facility] [place] [id number] [place] [address] 88875- 6024 October, [facility] [place] [id number] [place] [address] 16579- 7679 October, Low back pain M54.5 [facility] [place] [id number] [place] [address] 71847- 8530 Sep, [facility] [place] [id number] [place] [address] 73771- 1742 Sep, [facility] [place] [id number] [place] [address] 23196- 3574 Sep, Leukocytosis D72.829 [facility] [place] [id number] [place] [address] 64097- 8082 Sep, [facility] [place] [id number] [place] [address] 05015- 1131 Sep, [facility] [place] [id number] [place] [address] 46495- 3676 Sep, [facility] [place] [id number] [place] [address] 44582- 8426 Aug, Low back pain M54.5 [facility] [place] [id number] [place] [address] 15469- 7156 Aug, Bipolar disorder, unspecified F31.9 [facility] [place] [id number] [place] [address] 81214- 6400 Aug, [facility] [place] [id number] [place] [address] 10339- 8769 Aug, [facility] [place] [id number] [place] [address] 77549- 2484 Aug, Uncontrolled type 2 diabetes mellitus with hyperglycemia, without long-term current use of insulin E11.65 ; Non-healing surgical wound, initial encounter T81.89XA ; Cellulitis of abdominal wall L03.311 ; Hyperlipidemia E78.5 ; Chronic obstructive pulmonary disease, unspecified COPD type J44.9 and Tobacco use Z72.0 [place] [id number] [place] [address] 90013- 6618 Aug, [place] [id number] [place] [address] 21273- 9058 Jul, [place] [id number] [place] [address] 95423- 5354 Jul, [facility] [place] [id number] [place] [address] 77555- 3180 Jul, Type 2 diabetes mellitus 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, unspecified fdc insulin use status E11.40 [place] [id number] [place] [address] 44026- 6736 Jun, Bipolar disorder, unspecified F31.9 [place] [id number] [place] [address] 87603- 0157 Jun, [facility] [place] [id number] [place] [address] 43727- 8430 Jun, Bipolar disorder, unspecified F31.9 [place] [id number] [place] [address] 64222- 0088 Jun, Mood disorder F39 [place] [id number] [place] [address] 06392- 4046 Jun, [facility] [place] [id number] [place] [address] 28198- 4728 May, Fissure in skin of foot R23.4 ; Callus of foot L84 and Type 2 diabetes mellitus 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, unspecified long goods drier insulin use status E11.40 [place] [id number] [place] [address] 91656- 3516 04 May, 2017 Mood disorder F39 [place] [id number] [place] [address] 44420- 8846 Apr, [place] [address] [address]33- 7387 Apr, Cough R05 and Tobacco use Z72.0 [place] [address] 671600- 1276 Apr, Cough R05 and Tobacco use Z72.0 [place] [address] 83853- 7926 Apr, Mood disorder F39 [place] [id number] [place] [address] 59201- 1111 Apr, Low back pain M54.5 [place] [address] 87050- 8527 Apr, Uncontrolled type 2 diabetes mellitus with hyperglycemia, without long-term current use of insulin E11.65 [place] [id number] [place] [address] 42746- 8293 Apr, Uncontrolled type 2 diabetes mellitus with hyperglycemia, without long-term current use of insulin E11.65 [place] [id number] [place] [address] 38722- 9562 Mar, Bipolar disorder, unspecified F31.9 [place] [id number] [place] [address] 85206- 0848 Mar, [place] [id number] [place] [address] 52626- 9195 Mar, Bipolar disorder, unspecified F31.9 [address] [place] [address] [place] [address]- 7342 Mar, Mood disorder F39 [address] 87822- 4475 Feb, [address] [place] [address] 83586- 4700 Feb, [address] [address] 96954- 3632 Feb, [address] [address] 15403- 6734 Feb, Bipolar disorder, unspecified F31.9 [address] [place] [address] 83930- 2118 Feb, Uncontrolled type 2 diabetes mellitus with hyperglycemia, without long-term current use of insulin E11.65 ; Encounter for immunization Z23 ; Vasovagal syncope R55 and Low back pain M54.5 [address] [place] [address] 72785- 2612 Jan, Bipolar disorder, unspecified F31.9 [address] [place] [address] 33919- 3401 Jan, [place] [address] 37879- 4854 Jan, Fatigue, unspecified type R53.83 ; Nocturnal hypoxia G47.34 ; Leukocytosis D72.829 ; Other chronic gastritis without hemorrhage K29.50 ; Uncontrolled type 2 diabetes mellitus with hyperglycemia, without long-term current use of insulin E11.65 ; Alternating constipation and diarrhea R19.8 and Chronic obstructive pulmonary disease, unspecified COPD type J44.9 [address] [place] [address] 78716- 2054 Jan, [place] [address] 52003- 7564 Jan, Leukocytosis D72.829 [address] [place] [address] [place] [address]- 7887 Jan, Mood disorder F39 [facility] [place] [address] [place] [address] 92534- 2252 Dec, Bipolar disorder, unspecified F31.9 [facility] [place] [address] [place] [address] 07171- 3575 Dec, [facility] [id number] [place] [address] 43285 -0026 Dec, Acute gastritis without bleeding K29.00 [facility] [place] [id number] [place] [address] 15014- 7603 Dec, Leukocytosis D72.829 [facility] [place] [id number] [place] [address] 28766- 0834 Dec, [facility] [place] [id number] [place] [address] 56015- 0388 Dec, Dental examination Z01.20 [facility] [place] [id number] [place] [address] 14883- 6120 Dec, [facility] [place] [id number] [place] [address] 60454- 6099 Dec, Leukocytosis D72.829 [facility] [place] [id number] [place] [address] 66001- 2986 Dec, Uncontrolled type 2 diabetes mellitus with hyperglycemia, without long-term current use of insulin E11.65 [facility] [place] [address], [place] [address]- 0794 Nov, Dental examination Z01.20 [facility] [place] [id number] [place] [address] 12978- 8181 Nov, [facility] [place] [id number] [place] [address] 38317- 5538 Nov, Major depressive disorder, recurrent episode, moderate F33.1 [facility] [place] [id number] [place] [address] 67666- 8974 Nov, Leukocytosis D72.829 [address] [address] [place] [address] 307130- 0709 Nov, Mood disorder F39 [place] [id number] [place] [address] 91127- 2892 Nov, Other osteoarthritis of spine, cervical region M47.892 and Uncontrolled type 2 diabetes mellitus with hyperglycemia, without long-term current use of insulin E11.65 [place] [id number] [place] [address] 52849- 5487 Nov, Leukocytosis D72.829 and Elevated serum glucose R73.9 [place] [id number] [place] [address] 25470- 8432 October, Elevated serum glucose R73.9 [place] [id number] [place] [address] 68892- 3727 October, Mood disorder F39 [place] [id number] [place] [address] 92625- 6106 Sep, Major depressive disorder, recurrent episode, moderate F33.1 [place] [id number] [place] [address] 61962- 5735 Sep, Mood disorder F39 [address] [place] [address] [place] [address] 93589- 1683 Aug, [place] [id number] [place] [address] 99979- 3052 Jul, Major depressive disorder, recurrent episode, moderate F33.1 [address] [address] [place] [address] 92778- 6268 Jul, Mood disorder F39 [place] [id number] [place] [address] 79710- 6718 Jul, [place] [id number] [place] [address] 42759- 9073 Jul, History of ME (myocardial infarction) I25.2 ; Hyperlipidemia E78.5 ; Prediabetes R73.09 ; Chronic obstructive pulmonary disease, unspecified COPD type J44.9 and Tobacco use Z72.0 [place] [id number] [place] [address] 06509- 8324 Jun, [place] [id number] [place] [address] 56872- 6549 Jun, Mood disorder F39 [place] [id number] [place] [address] 19443- 1993 Jun, [place] [id number] [place] [address] 95361- 2757 May, Major depressive disorder, recurrent episode, moderate F33.1 and Primary insomnia F51.01 [place] [id number] [place] [address] 64438- 1447 May, Mood disorder F39 [place] [id number] [place] [address] 53758- 9342 Apr, [place] [id number] [place] [address] 76658- 1748 Apr, Mood disorder F39 [place] [id number] [place] [address] 34156- 4403 Apr, [place] [id number] [place] [address] 00954- 4294 Apr, [place] [id number] [place] [address] 09385- 7599 Apr, Chronic obstructive pulmonary disease, unspecified COPD type J44.9 and Non-seasonal allergic rhinitis due to other allergic trigger J30.89 [place] [id number] [place] [address] 74928- 6055 Apr, Mood disorder F39 [place] [id number] [place] [address] 27734- 2117 Apr, Major depressive disorder, recurrent episode, moderate F33.1 and PTSD (post-traumatic stress disorder) F43.10 [place] [id number] [place] [address] 07997- 0081 Apr, [facility] [place] [id number] [place] [address] 21054- 8802 Apr, [place] [id number] [place] [address] 76876- 3459 Apr, Chest pain, unspecified type R07.9 ; Chronic obstructive pulmonary disease, unspecified COPD type J44.9 ; Hyperlipidemia, unspecified hyperlipidemia type E78.5 and Tobacco use Z72.0 [place] [id number] [place] [address] 32678- 0123 Mar, Mood disorder F39 [place] [id number] [place] [address] 81619- 5388 Mar, Mood disorder F39 [place] [id number] [place] [address] 11475- 7441 Mar, Other osteoarthritis of spine, cervical region M47.892 [place] [id number] [place] [address] 20152- 8457 Mar, Tear of right rotator cuff, unspecified tear extent M75.101 [place] [id number] [place] [address] 58864- 3890 Mar, [place] [id number] [place] [address] 52232- 0410 Mar, Bipolar II disorder F31.81 [place] [id number] [place] [address] 16228- 6864 Mar, [place] [id number] [place] [address] 35284- 9370 Feb, Impingement syndrome of right shoulder M75.41 ; Tear of right rotator cuff, unspecified tear extent M75.101 and Loose body in right elbow M24.021 [place] [id number] [address]- 1000 Jan, [place] [id number] [place] [address] 70045- 3053 Jan, [place] [id number] [place] [address] 26798- 0397 Jan, Prediabetes R73.09 ; Other chronic pain G89.29 and Pain in right shoulder M25.511 [place] [id number] [place] [address] 18455- 9319 Dec, [place] [id number] [place] [address] 62788- 9096 Dec, Heartburn R12 and Chest discomfort R07.89 [place] [id number] [place] [address] 78493- 1505 Dec, Impingement syndrome of right shoulder M75.41 and 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, 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 [place] [id number] [place] [address] 19772- 5025 Nov, [place] [id number] [place] [address] 75200- 5800 Nov, Leukocytosis D72.829 [place] [id number] [place] [address] 10488- 1057 Nov, [place] [id number] [place] [address] 41720- 5299 Nov, Enlarged lymph node R59.9 ; Chronic obstructive pulmonary disease, unspecified COPD type J44.9 ; Low back pain M54.5 ; Neuropathy G62.9 and Closed nondisplaced fracture of sternal end of right clavicle, sequela S42.017S [place] [address] [address]- 6788 October, [place] [id number] [place] [address] 21921- 1154 October, [place] [id number] [place] [address] 92261- 0192 Sep, [place] [id number] [place] [address] 53045- 3629 Aug, Double vision H53.2 ; Occipital headache R51 ; Chronic obstructive pulmonary disease, unspecified COPD type J44.9 and Gastroesophageal reflux disease, esophagitis presence not specified K21.9 [place] [id number] [place] [address] 98004- 5710 Aug, [place] [id number] [place] [address] 33124- 6015 Jul, Enlarged lymph node in neck R59.0 [place] [address] 46879- 4618 Jul, [place] [address] 73885- 9937 Jul, Chronic obstructive pulmonary disease, unspecified COPD type J44.9 ; Tobacco use Z72.0 ; Leukocytosis D72.829 ; Hyperlipidemia E78.5 and Neck abscess L02.11 [place] [id number] [place] [address] 67058- 5744 Jun, Shortness of breath R06.02 [place] [id number] [place] [address] 41959- 6861 17 May, 2015 Leukocytosis D72.829 and Shortness of breath R06.02 [place] [id number] [place] [address] 35856- 3548 09 May, 2015 Low back pain M54.5 ; Hyperlipidemia E78.5 ; Leukocytosis D72.829 ; Other osteoarthritis of spine, cervical region M47.892 and Shortness of breath R06.02 [place] [id number] [place] [address] 74178- 3858 18 Feb, 2015 Chest pain 786.50 ; Tobacco use 305.1 ; Back pain 724.5 and Hyperlipemia 272.4 [place] [address] [place] [id number] [place] [address] [phone] Jan, [place] [address] [address] Jan, Chronic low back pain 724.2 and Degenerative arthritis of cervical spine 721.[address] [address] Jan, Chronic low back pain 724.2 and Neck pain 723.1 [place] [address] [place] [id number] [place] [address] [phone] Dec, Chronic low back pain 724.2 and Neck pain 723.1 [place] [id number] [place] [address] [phone] Nov, Chest pain 786.50 ; Dyspnea 786.09 ; Tobacco use 305.1 and Back pain 724.5 [place] [address] [place] [id number] [place] [address] [phone] Nov, [address] [address]- [address] Nov, Disability examination V68.01 and Muscle pain 729.1 [place] [id number] [place] [address] [phone] October, History of ME (myocardial infarction) 412 ; Hyperlipidemia LDL goal < 100 272.4 ; Leukocytosis 288.60 and Glucose intolerance (pre-diabetes ) 790.29 [place] [address] [place] [id number] [place] [address] [phone]- [phone] October, Chest pain 786.50 ; Chronic low back pain 724.2 ; History of ME (myocardial infarction) 412 and Neuropathy 355.[id number] [place] [address] 33245- [phone] October, Chronic low back pain 724.2 ; Chest pain 786.50 ; History of ME (myocardial infarction) 412 and Neuropathy 355.9 IMMUNIZATIONS No Known Immunizations SOCIAL HISTORY Never Assessed REASON FOR VISIT Refill Request PLAN OF CARE VITAL SIGNS MEDICATIONS Medication Instructions Dosage Frequency Start Date End Date Duration Status Baclofen 10 mg Orally once daily 1 tablet with food or milk as needed 24h Active RESULTS No Results PROCEDURES No [...]
--- OUTSIDE RECORDS SUMMARY | 2018-04-03 14:37 | XMS REPORT ---
Author Author ERWIN LEO [facility] Address [facility] [place] [address] Care Team Providers Care President And Chief Commercial Officer Name Role Phone ERWIN LEO Unavailable PROBLEMS Type Condition ICD9-CM Code ZTY55-BS Code Onset Dates Condition Status SNOMED Code Problem Enlarged lymph node R59.9 Active 64088570 Problem Hyperlipidemia, unspecified hyperlipidemia type E78.5 Active 48793336 Problem Tear of right rotator cuff, unspecified tear extent M75.101 Active 083006854 Problem Other chronic pain G89.29 Active 10947024 Problem Internal hemorrhoids K64.8 Active 62050078 Problem Nocturnal hypoxia G47.34 Active 297729765 Problem Panlobular emphysema J43.1 Active 9023372 Problem Hyperplastic colonic polyp, unspecified part of colon K63.5 Active 385991952 Problem Non-seasonal allergic rhinitis due to other allergic trigger J30.89 Active 54334661 Problem Mood disorder F39 Active 53728453 Problem Bipolar disorder, unspecified F31.9 Active 68863980 Problem Uncontrolled type 2 diabetes mellitus with hyperglycemia, without long -term current use of insulin E11.65 Active 100765189 Problem GERD with esophagitis K21.0 Active 016567284 Problem Other osteoarthritis of spine, cervical region M47.892 Active 307974250 Problem Hiatal hernia K44.9 Active 87812008 Problem External hemorrhoids K64.4 Active 36372100 Problem Leukocytosis D72.829 Active 315112542 Problem Hyperlipidemia E78.5 Active 06171501 Problem History of [place] (myocardial infarction) I25.2 Active 013068848 Problem Neuropathy G62.9 Active 722128931 Problem Other chronic gastritis without hemorrhage K29.50 Active 3178854 Problem Low back pain M54.5 Active 224868155 Problem Tobacco use Z72.0 Active 689810398 ALLERGIES No Information ENCOUNTERS Encounter Location Date Diagnosis [facility] [address] [id number] [address] Jun, [facility] [address] [facility] [id number] [place] [address] Mar, [facility] [id number] [place] [address] Mar, [facility] [id number] [place] [address] Feb, Mood disorder F39 [facility] [id number] [place] [address] 6942 Jan, [facility] [id number] [place] [address] 5968 Jan, Mood disorder F39 [facility] [id number] [place] [address] 0056 Jan, [facility] [id number] [address] Dec, Bipolar disorder, unspecified F31.9 [facility] [place] [facility] [id number] [place] [address] 1107 Dec, [facility] [id number] [address] Dec, [facility] [id number] [address] 62[address] Dec, [facility] [id number] [address] [address] Dec, Mood disorder F39 [facility] [id number] [place] [address] Nov, Bipolar disorder, unspecified F31.9 [facility] [id number] [place] [address]- 8576 Nov, [facility] [id number] [place] [address] Nov, Pain in left knee M25.562 ; Other chronic pain G89.29 ; Hyperlipidemia E78.5 ; Leukocytosis D72.829 ; Other osteoarthritis of spine, cervical region M47.892 ; Tobacco use Z72.0 and Uncontrolled type 2 diabetes mellitus with hyperglycemia, without long-term current use of insulin E11.65 [facility] [id number] [address] 14 Nov, 2017 [facility] [id number] [place] [address] 87894- 8959 Nov, [facility] [id number] [place] [address] 12368- 1717 October, [facility] [id number] [place] [address] 64449- 6724 October, Low back pain M54.5 [facility] [id number] [place] [address] 46263- 4985 Sep, [facility] [id number] [place] [address] 87918- 1777 Sep, [facility] [id number] [place] [address] 39877- 8825 Sep, Leukocytosis D72.829 [facility] [id number] [place] [address] 59691- 3190 Sep, [facility] [id number] [place] [address] 17138- 2549 Sep, [facility] [id number] [place] [address] 06117- 4415 Sep, [facility] [id number] [place] [address] 19897- 8468 Aug, Low back pain M54.5 [facility] [id number] [place] [address] 54048- 7593 Aug, Bipolar disorder, unspecified F31.9 [facility] [id number] [place] [address] 72415- 1992 Aug, [facility] [id number] [place] [address] 09515- 6116 Aug, [facility] [id number] [place] [address] 69847- 8416 Aug, Uncontrolled type 2 diabetes mellitus with hyperglycemia, without long-term current use of insulin E11.65 ; Non-healing surgical wound, initial encounter T81.89XA ; Cellulitis of abdominal wall L03.311 ; Hyperlipidemia E78.5 ; Chronic obstructive pulmonary disease, unspecified COPD type J44.9 and Tobacco use Z72.0 [facility] [id number] [place] [address] 30445- 3121 Aug, [facility] [id number] [place] [address] 46018- 9788 Jul, [facility] [id number] [place] [address] 88213- 0243 Jul, [facility] [id number] [place] [address] 95048- 2790 Jul, Type 2 diabetes mellitus 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, unspecified intermodal customer service insulin use status E11.40 [facility] [id number] [place] [address] 62215- 4073 Jun, Bipolar disorder, unspecified F31.9 [facility] [id number] [place] [address] 48822- 7799 Jun, [facility] [id number] [place] [address] 26683- 6111 Jun, Bipolar disorder, unspecified F31.9 [facility] [id number] [place] [address] 41958- 6244 Jun, Mood disorder F39 [facility] [id number] [place] [address] 10796- 2015 Jun, [facility] [id number] [place] [address] 88376- 0831 May, Fissure in skin of foot R23.4 ; Callus of foot L84 and Type 2 diabetes mellitus 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, unspecified senior living insulin use status E11.40 [facility] [id number] [place] [address] 06166- 8052 04 May, 2017 Mood disorder F39 [facility] [id number] [place] [address] 65405- 8123 Apr, [facility] [address] 81082- 4189 Apr, Cough R05 and Tobacco use Z72.0 [facility] [address] 739702- 5879 Apr, Cough R05 and Tobacco use Z72.0 [facility] [address] 23590- 3717 Apr, Mood disorder F39 [facility] [id number] [place] [address] 16375- 7193 Apr, Low back pain M54.5 [facility] [address] 43128- 4219 Apr, Uncontrolled type 2 diabetes mellitus with hyperglycemia, without long-term current use of insulin E11.65 [facility] [id number] [place] [address] 94696- 5209 Apr, Uncontrolled type 2 diabetes mellitus with hyperglycemia, without long-term current use of insulin E11.65 [facility] [id number] [place] [address] 07848- 7204 Mar, Bipolar disorder, unspecified F31.9 [facility] [id number] [place] [address] 08661- 9760 Mar, [facility] [id number] [place] [address] 60186- 7626 Mar, Bipolar disorder, unspecified F31.9 [facility] [address] [place] [address]- 6680 Mar, Mood disorder F39 [address] [address] [address] 86138- 1978 Feb, [facility] [address] 97290- 8603 Feb, [facility] [address] 89617- 6937 Feb, [address] [address] 28308- 6812 Feb, Bipolar disorder, unspecified F31.9 [facility] [address] 81061- 3640 Feb, Uncontrolled type 2 diabetes mellitus with hyperglycemia, without long-term current use of insulin E11.65 ; Encounter for immunization Z23 ; Vasovagal syncope R55 and Low back pain M54.5 [facility] [address] 55422- 5506 Jan, Bipolar disorder, unspecified F31.9 [address] [address] 82965- 4671 Jan, [facility] [address] 53800- 9525 Jan, Fatigue, unspecified type R53.83 ; Nocturnal hypoxia G47.34 ; Leukocytosis D72.829 ; Other chronic gastritis without hemorrhage K29.50 ; Uncontrolled type 2 diabetes mellitus with hyperglycemia, without long-term current use of insulin E11.65 ; Alternating constipation and diarrhea R19.8 and Chronic obstructive pulmonary disease, unspecified COPD type J44.9 [facility] [address] 42297- 1452 Jan, [facility] [address] 18157- 3924 Jan, Leukocytosis D72.829 [facility] [address] [place] [address]- 6945 Jan, Mood disorder F39 [facility] [id number] [place] [address] 84887- 7834 Dec, Bipolar disorder, unspecified F31.9 [facility] [id number] [place] [address] 44597- 7991 Dec, [facility] [id number] [place] [address] 88958 -8532 Dec, Acute gastritis without bleeding K29.00 [facility] [id number] [place] [address] 14577- 1070 Dec, Leukocytosis D72.829 [facility] [id number] [place] [address] 39717- 3063 Dec, [facility] [id number] [place] [address] 96311- 4184 Dec, Dental examination Z01.20 [facility] [id number] [place] [address] 27460- 1270 Dec, [facility] [id number] [place] [address] 23308- 5019 Dec, Leukocytosis D72.829 [facility] [id number] [place] [address] 96036- 7255 Dec, Uncontrolled type 2 diabetes mellitus with hyperglycemia, without long-term current use of insulin E11.65 [facility] [id number], [place] [address]- 4863 Nov, Dental examination Z01.20 [facility] [id number] [place] [address] 06293- 8066 Nov, [facility] [id number] [place] [address] 44706- 0402 Nov, Major depressive disorder, recurrent episode, moderate F33.1 [facility] [id number] [place] [address] 35072- 6516 Nov, Leukocytosis D72.829 [facility] [address] [place] [address] 470156- 2922 Nov, Mood disorder F39 [facility] [id number] [place] [address] 07245- 4450 Nov, Other osteoarthritis of spine, cervical region M47.892 and Uncontrolled type 2 diabetes mellitus with hyperglycemia, without long-term current use of insulin E11.65 [facility] [id number] [place] [address] 81547- 3692 Nov, Leukocytosis D72.829 and Elevated serum glucose R73.9 [facility] [id number] [place] [address] 81056- 5325 October, Elevated serum glucose R73.9 [facility] [id number] [place] [address] 76017- 7655 October, Mood disorder F39 [facility] [id number] [place] [address] 10928- 0589 Sep, Major depressive disorder, recurrent episode, moderate F33.1 [facility] [id number] [place] [address] 18476- 5539 Sep, Mood disorder F39 [facility] [address] [place] [address] 63209- 9980 Aug, [facility] [id number] [place] [address] 35312- 4215 Jul, Major depressive disorder, recurrent episode, moderate F33.1 [facility] [address] [place] [address] 18397- 4205 Jul, Mood disorder F39 [facility] [id number] [place] [address] 23362- 9734 Jul, [facility] [id number] [place] [address] 92807- 0084 Jul, History of NV (myocardial infarction) I25.2 ; Hyperlipidemia E78.5 ; Prediabetes R73.09 ; Chronic obstructive pulmonary disease, unspecified COPD type J44.9 and Tobacco use Z72.0 [facility] [id number] [place] [address] 20974- 2112 Jun, [facility] [id number] [place] [address] 95954- 2947 Jun, Mood disorder F39 [facility] [id number] [place] [address] 61189- 1128 Jun, [facility] [id number] [place] [address] 07104- 1223 May, Major depressive disorder, recurrent episode, moderate F33.1 and Primary insomnia F51.01 [facility] [id number] [place] [address] 46378- 9498 May, Mood disorder F39 [facility] [id number] [place] [address] 02349- 8169 Apr, [facility] [id number] [place] [address] 22387- 6855 Apr, Mood disorder F39 [facility] [id number] [place] [address] 80589- 5368 Apr, [facility] [id number] [place] [address] 72360- 1391 Apr, [facility] [id number] [place] [address] 30797- 2214 Apr, Chronic obstructive pulmonary disease, unspecified COPD type J44.9 and Non-seasonal allergic rhinitis due to other allergic trigger J30.89 [facility] [id number] [place] [address] 05580- 5077 Apr, Mood disorder F39 [facility] [id number] [place] [address] 76886- 7496 Apr, Major depressive disorder, recurrent episode, moderate F33.1 and PTSD (post-traumatic stress disorder) F43.10 [facility] [id number] [place] [address] 57495- 4170 Apr, [facility] [id number] [place] [address] 76841- 9114 Apr, [facility] [id number] [place] [address] 97891- 4479 Apr, Chest pain, unspecified type R07.9 ; Chronic obstructive pulmonary disease, unspecified COPD type J44.9 ; Hyperlipidemia, unspecified hyperlipidemia type E78.5 and Tobacco use Z72.0 [facility] [id number] [place] [address] 86239- 2464 Mar, Mood disorder F39 [facility] [id number] [place] [address] 05049- 1220 Mar, Mood disorder F39 [facility] [id number] [place] [address] 75333- 8306 Mar, Other osteoarthritis of spine, cervical region M47.892 [facility] [id number] [place] [address] 16037- 7119 Mar, Tear of right rotator cuff, unspecified tear extent M75.101 [facility] [id number] [place] [address] 85650- 1645 Mar, [facility] [id number] [place] [address] 47773- 4839 Mar, Bipolar II disorder F31.81 [facility] [id number] [place] [address] 05830- 3499 Mar, [facility] [id number] [place] [address] 57415- 4094 Feb, Impingement syndrome of right shoulder M75.41 ; Tear of right rotator cuff, unspecified tear extent M75.101 and Loose body in right elbow M24.021 [facility] [id number] [address]- 0684 Jan, [facility] [id number] [place] [address] 99945- 4952 Jan, [facility] [id number] [place] [address] 06868- 0472 Jan, Prediabetes R73.09 ; Other chronic pain G89.29 and Pain in right shoulder M25.511 [facility] [id number] [place] [address] 13981- 3309 Dec, [facility] [id number] [place] [address] 25270- 0580 Dec, Heartburn R12 and Chest discomfort R07.89 [facility] [id number] [place] [address] 89059- 0558 Dec, Impingement syndrome of right shoulder M75.41 and 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, 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 [facility] [id number] [place] [address] 58906- 1751 Nov, [facility] [id number] [place] [address] 30727- 3056 Nov, Leukocytosis D72.829 [facility] [id number] [place] [address] 62128- 8562 Nov, [facility] [id number] [place] [address] 13359- 0097 Nov, Enlarged lymph node R59.9 ; Chronic obstructive pulmonary disease, unspecified COPD type J44.9 ; Low back pain M54.5 ; Neuropathy G62.9 and Closed nondisplaced fracture of sternal end of right clavicle, sequela S42.017S [facility] [address] [address]- 9735 October, [facility] [id number] [place] [address] 62277- 2328 October, [facility] [id number] [place] [address] 63540- 4028 Sep, [facility] [id number] [place] [address] 95353- 5186 Aug, Double vision H53.2 ; Occipital headache R51 ; Chronic obstructive pulmonary disease, unspecified COPD type J44.9 and Gastroesophageal reflux disease, esophagitis presence not specified K21.9 [facility] [id number] [place] [address] 51492- 2544 Aug, [facility] [id number] [place] [address] 90131- 4045 Jul, Enlarged lymph node in neck R59.0 [facility] [address] 28447- 3378 Jul, [facility] [address] 73103- 8875 Jul, Chronic obstructive pulmonary disease, unspecified COPD type J44.9 ; Tobacco use Z72.0 ; Leukocytosis D72.829 ; Hyperlipidemia E78.5 and Neck abscess L02.11 [facility] [id number] [place] [address] 38350- 5974 Jun, Shortness of breath R06.02 [facility] [id number] [place] [address] 78667- 1963 17 May, 2015 Leukocytosis D72.829 and Shortness of breath R06.02 [facility] [id number] [place] [address] 80939- 9967 09 May, 2015 Low back pain M54.5 ; Hyperlipidemia E78.5 ; Leukocytosis D72.829 ; Other osteoarthritis of spine, cervical region M47.892 and Shortness of breath R06.02 [facility] [id number] [place] [address] 75481- 5538 18 Feb, 2015 Chest pain 786.50 ; Tobacco use 305.1 ; Back pain 724.5 and Hyperlipemia 272.4 [facility] [id number] [place] [address] 07701- 8959 Jan, [facility] [address] 93656- 1200 Jan, Chronic low back pain 724.2 and Degenerative arthritis of cervical spine 721.[address] 50001- 4884 Jan, Chronic low back pain 724.2 and Neck pain 723.1 [facility] [id number] [place] [address] 01267- 1535 Dec, Chronic low back pain 724.2 and Neck pain 723.1 [facility] [id number] [place] [address] 16291- 5088 Nov, Chest pain 786.50 ; Dyspnea 786.09 ; Tobacco use 305.1 and Back pain 724.5 [facility] [id number] [place] [address] 59424- 8491 Nov, [address] 22198- 9822 Nov, Disability examination V68.01 and Muscle pain 729.1 [place] [id number] [place] [address] 58576- 2583 October, History of NV (myocardial infarction) 412 ; Hyperlipidemia LDL goal < 100 272.4 ; Leukocytosis 288.60 and Glucose intolerance (pre-diabetes ) 790.29 [facility] [id number] [place] [address] 60313- 6898 October, Chest pain 786.50 ; Chronic low back pain 724.2 ; History of NV (myocardial infarction) 412 and Neuropathy 355.[address] [place] [address] 96886- 8296 October, Chronic low back pain 724.2 ; [...] Psychotherapy, patient &/family, 45 minutes, established patient December 12, 2017 INSTRUCTIONS MEDICATIONS ADMINISTERED No Known Medications [...]
--- OUTSIDE RECORDS SUMMARY | 2018-04-03 14:37 | XMS REPORT ---
Author Author KINJAL DORIS [facility] Address [facility] [place] [address] Care Team Providers Care Academic Director Name Role Phone DORIS LAYTON Unavailable PROBLEMS Type Condition ICD9-CM Code MDW38-CT Code Onset Dates Condition Status SNOMED Code Problem Enlarged lymph node R59.9 Active 56200339 Problem Hyperlipidemia, unspecified hyperlipidemia type E78.5 Active 33978421 Problem Tear of right rotator cuff, unspecified tear extent M75.101 Active 141717114 Problem Other chronic pain G89.29 Active 37611919 Problem Internal hemorrhoids K64.8 Active 06972748 Problem Nocturnal hypoxia G47.34 Active 354184540 Problem Panlobular emphysema J43.1 Active 9945675 Problem Hyperplastic colonic polyp, unspecified part of colon K63.5 Active 922147349 Problem Non-seasonal allergic rhinitis due to other allergic trigger J30.89 Active 12608682 Problem Mood disorder F39 Active 69206209 Problem Bipolar disorder, unspecified F31.9 Active 24189523 Problem Uncontrolled type 2 diabetes mellitus with hyperglycemia, without long -term current use of insulin E11.65 Active 273029218 Problem GERD with esophagitis K21.0 Active 219026741 Problem Other osteoarthritis of spine, cervical region M47.892 Active 931409848 Problem Hiatal hernia K44.9 Active 28368986 Problem External hemorrhoids K64.4 Active 22488164 Problem Leukocytosis D72.829 Active 221671109 Problem Hyperlipidemia E78.5 Active 60674659 Problem History of ME (myocardial infarction) I25.2 Active 249928598 Problem Neuropathy G62.9 Active 320027640 Problem Other chronic gastritis without hemorrhage K29.50 Active 2794513 Problem Low back pain M54.5 Active 303489426 Problem Tobacco use Z72.0 Active 455747671 ALLERGIES No Information ENCOUNTERS Encounter Location Date Diagnosis [facility] [id number] [address] Jun, [facility] [address] [facility] [id number] [place] [address] Mar, [facility] [id number] [address] Mar, [facility] [id number] [place] [address] Feb, Mood disorder F39 [facility] [id number] [place] [address] Jan, [facility] [id number] [address] Jan, Mood disorder F39 [facility] [id number] [place] [address] Jan, [facility] [address] [address] Dec, Bipolar disorder, unspecified F31.9 [facility] [place] [facility] [id number] [place] [address] Dec, [facility] [id number] [address] Dec, [facility] [address] [address] Dec, [facility] [address] [address] Dec, Mood disorder F39 [facility] [id number] [address] [address] Nov, Bipolar disorder, unspecified F31.9 [facility] [id number] [place] [address] Nov, [facility] [id number] [address] [address] Nov, Pain in left knee M25.562 ; Other chronic pain G89.29 ; Hyperlipidemia E78.5 ; Leukocytosis D72.829 ; Other osteoarthritis of spine, cervical region M47.892 ; Tobacco use Z72.0 and Uncontrolled type 2 diabetes mellitus with hyperglycemia, without long-term current use of insulin E11.65 [facility] [address] [address] 14 Nov, 2017 [facility] [id number] [place] [address] 84508- 6775 Nov, [facility] [id number] [place] [address] 36513- 3268 October, [facility] [id number] [place] [address] 13708- 4239 October, Low back pain M54.5 [facility] [id number] [place] [address] 08237- 8750 Sep, [facility] [id number] [place] [address] 88362- 0608 Sep, [facility] [id number] [place] [address] 82536- 5379 Sep, Leukocytosis D72.829 [facility] [id number] [place] [address] 47656- 3126 Sep, [facility] [id number] [place] [address] 27090- 0513 Sep, [facility] [id number] [place] [address] 23867- 2683 Sep, [facility] [id number] [place] [address] 27552- 5452 Aug, Low back pain M54.5 [facility] [id number] [place] [address] 21833- 5697 Aug, Bipolar disorder, unspecified F31.9 [facility] [id number] [place] [address] 40173- 8348 Aug, [facility] [id number] [place] [address] 56538- 3053 Aug, [facility] [id number] [place] [address] 26380- 2159 Aug, Uncontrolled type 2 diabetes mellitus with hyperglycemia, without long-term current use of insulin E11.65 ; Non-healing surgical wound, initial encounter T81.89XA ; Cellulitis of abdominal wall L03.311 ; Hyperlipidemia E78.5 ; Chronic obstructive pulmonary disease, unspecified COPD type J44.9 and Tobacco use Z72.0 [facility] [id number] [place] [address] 70060- 5170 Aug, [facility] [id number] [place] [address] 59872- 1439 Jul, [facility] [id number] [place] [address] 85309- 8275 Jul, [facility] [id number] [place] [address] 75978- 2270 Jul, Type 2 diabetes mellitus 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, unspecified assisted insulin use status E11.40 [facility] [id number] [place] [address] 12420- 2687 Jun, Bipolar disorder, unspecified F31.9 [facility] [id number] [place] [address] 11368- 9863 Jun, [facility] [id number] [place] [address] 61551- 1367 Jun, Bipolar disorder, unspecified F31.9 [facility] [id number] [place] [address] 70846- 7416 Jun, Mood disorder F39 [facility] [id number] [place] [address] 18370- 9772 Jun, [facility] [id number] [place] [address] 47227- 1232 May, Fissure in skin of foot R23.4 ; Callus of foot L84 and Type 2 diabetes mellitus 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, unspecified [employer] insulin use status E11.40 [facility] [id number] [place] [address] 17751- 8721 04 May, 2017 Mood disorder F39 [facility] [id number] [place] [address] 56049- 1302 Apr, [facility] [address] [address]- 8073 Apr, Cough R05 and Tobacco use Z72.0 [facility] [address] 449153- 1137 Apr, Cough R05 and Tobacco use Z72.0 [facility] [address] 50555- 1595 Apr, Mood disorder F39 [facility] [id number] [place] [address] 49002- 2631 Apr, Low back pain M54.5 [facility] [address] 50827- 3013 Apr, Uncontrolled type 2 diabetes mellitus with hyperglycemia, without long-term current use of insulin E11.65 [facility] [id number] [place] [address] 72687- 4896 Apr, Uncontrolled type 2 diabetes mellitus with hyperglycemia, without long-term current use of insulin E11.65 [facility] [id number] [place] [address] 19466- 6412 Mar, Bipolar disorder, unspecified F31.9 [facility] [id number] [place] [address] 71078- 3368 Mar, [facility] [id number] [place] [address] 18988- 8080 Mar, Bipolar disorder, unspecified F31.9 [facility] [address] [place] [address]- 8868 Mar, Mood disorder F39 [facility] [facility] [address] 94001- 9303 Feb, [facility] [address] 17408- 9491 Feb, [facility] [address] 65281- 2221 Feb, [facility] [address] 85032- 0436 Feb, Bipolar disorder, unspecified F31.9 [facility] [address] 97648- 1641 Feb, Uncontrolled type 2 diabetes mellitus with hyperglycemia, without long-term current use of insulin E11.65 ; Encounter for immunization Z23 ; Vasovagal syncope R55 and Low back pain M54.5 [facility] [address] 36298- 9212 Jan, Bipolar disorder, unspecified F31.9 [facility] [address] 08808- 6281 Jan, [facility] [address] 43820- 4989 Jan, Fatigue, unspecified type R53.83 ; Nocturnal hypoxia G47.34 ; Leukocytosis D72.829 ; Other chronic gastritis without hemorrhage K29.50 ; Uncontrolled type 2 diabetes mellitus with hyperglycemia, without long-term current use of insulin E11.65 ; Alternating constipation and diarrhea R19.8 and Chronic obstructive pulmonary disease, unspecified COPD type J44.9 [place] [address] 56883- 8880 Jan, [facility] [address] 53870- 9115 Jan, Leukocytosis D72.829 [place] [facility] [address] [place] [address]- 4304 Jan, Mood disorder F39 [facility] [address] [place] [address] 60426- 4194 Dec, Bipolar disorder, unspecified F31.9 [facility] [id number] [place] [address] 13752- 5297 Dec, [facility] [id number] [place] [address] 54091 -2550 Dec, Acute gastritis without bleeding K29.00 [facility] [id number] [place] [address] 12303- 6394 Dec, Leukocytosis D72.829 [facility] [id number] [place] [address] 84807- 7577 Dec, [facility] [id number] [place] [address] 53720- 5204 Dec, Dental examination Z01.20 [facility] [id number] [place] [address] 43579- 6811 Dec, [facility] [id number] [place] [address] 18688- 0742 Dec, Leukocytosis D72.829 [facility] [id number] [place] [address] 49931- 7689 Dec, Uncontrolled type 2 diabetes mellitus with hyperglycemia, without long-term current use of insulin E11.65 [facility] [address] [address]- 0910 Nov, Dental examination Z01.20 [facility] [id number] [place] [address] 87623- 1430 Nov, [facility] [id number] [place] [address] 47449- 3592 Nov, Major depressive disorder, recurrent episode, moderate F33.1 [facility] [id number] [place] [address] 12848- 2326 Nov, Leukocytosis D72.829 [place] [address] [place] [address] 433515- 0220 Nov, Mood disorder F39 [facility] [facility] [id number] [place] [address] 68046- 1354 Nov, Other osteoarthritis of spine, cervical region M47.892 and Uncontrolled type 2 diabetes mellitus with hyperglycemia, without long-term current use of insulin E11.65 [facility] [id number] [place] [address] 22545- 9556 Nov, Leukocytosis D72.829 and Elevated serum glucose R73.9 [facility] [id number] [place] [address] 54844- 7075 October, Elevated serum glucose R73.9 [facility] [id number] [place] [address] 52205- 7441 October, Mood disorder F39 [facility] [id number] [place] [address] 33865- 7237 Sep, Major depressive disorder, recurrent episode, moderate F33.1 [facility] [id number] [place] [address] 17513- 6660 Sep, Mood disorder F39 [facility] [address] [place] [address] 65768- 8809 Aug, [facility] [id number] [place] [address] 34786- 4746 Jul, Major depressive disorder, recurrent episode, moderate F33.1 [facility] [address] [place] [address] 05791- 8432 Jul, Mood disorder F39 [facility] [id number] [place] [address] 52843- 4717 Jul, [facility] [address] [place] [address] 31901- 6882 Jul, History of ME (myocardial infarction) I25.2 ; Hyperlipidemia E78.5 ; Prediabetes R73.09 ; Chronic obstructive pulmonary disease, unspecified COPD type J44.9 and Tobacco use Z72.0 [facility] [address] [place] [address] 79559- 8336 Jun, [facility] [address] [place] [address] 60448- 8108 Jun, Mood disorder F39 [facility] [address] [place] [address] 60253- 2039 Jun, [facility] [id number] [place] [address] 42780- 1808 May, Major depressive disorder, recurrent episode, moderate F33.1 and Primary insomnia F51.01 [facility] [address] [place] [address] 12420- 3596 May, Mood disorder F39 [facility] [id number] [place] [address] 76374- 4629 Apr, [facility] [id number] [place] [address] 78205- 1004 Apr, Mood disorder F39 [facility] [address] [place] [address] 89132- 5650 Apr, [facility] [id number] [place] [address] 59649- 2556 Apr, [facility] [id number] [place] [address] 09960- 5264 Apr, Chronic obstructive pulmonary disease, unspecified COPD type J44.9 and Non-seasonal allergic rhinitis due to other allergic trigger J30.89 [facility] [address] [place] [address] 43662- 8157 Apr, Mood disorder F39 [facility] [address] [place] [address] 47453- 6361 Apr, Major depressive disorder, recurrent episode, moderate F33.1 and PTSD (post-traumatic stress disorder) F43.10 [facility] [address] [place] [address] 98010- 7402 Apr, [facility] [id number] [place] [address] 36139- 3660 Apr, [facility] [address] [place] [address] 12864- 3696 Apr, Chest pain, unspecified type R07.9 ; Chronic obstructive pulmonary disease, unspecified COPD type J44.9 ; Hyperlipidemia, unspecified hyperlipidemia type E78.5 and Tobacco use Z72.0 [facility] [address] [place] [address] 43261- 0217 Mar, Mood disorder F39 [facility] [address] [place] [address] 39299- 4049 Mar, Mood disorder F39 [facility] [address] [place] [address] 78370- 3120 Mar, Other osteoarthritis of spine, cervical region M47.892 [facility] [address] [place] [address] 55274- 5459 Mar, Tear of right rotator cuff, unspecified tear extent M75.101 [facility] [address] [place] [address] 18240- 6068 Mar, [facility] [address] [place] [address] 63985- 2524 Mar, Bipolar II disorder F31.81 [facility] [address] [place] [address] 83917- 9053 Mar, [facility] [address] [place] [address] 31285- 2353 Feb, Impingement syndrome of right shoulder M75.41 ; Tear of right rotator cuff, unspecified tear extent M75.101 and Loose body in right elbow M24.021 [facility] [address], [place] [address]- 1261 Jan, [facility] [address] [place] [address] 73307- 3097 Jan, [facility] [address] [place] [address] 84862- 7708 Jan, Prediabetes R73.09 ; Other chronic pain G89.29 and Pain in right shoulder M25.511 [facility] [address] [place] [address] 42994- 7899 Dec, [facility] [address] [place] [address] 55616- 7975 Dec, Heartburn R12 and Chest discomfort R07.89 [facility] [address] [place] [address] 96463- 1591 Dec, Impingement syndrome of right shoulder M75.41 and 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, 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 [facility] [address] [place] [address] 58164- 9910 Nov, [facility] [address] [place] [address] 90730- 9712 Nov, Leukocytosis D72.829 [facility] [address] [place] [address] 71848- 3432 Nov, [facility] [address] [place] [address] 86774- 9193 Nov, Enlarged lymph node R59.9 ; Chronic obstructive pulmonary disease, unspecified COPD type J44.9 ; Low back pain M54.5 ; Neuropathy G62.9 and Closed nondisplaced fracture of sternal end of right clavicle, sequela S42.017S [facility] [address], [place] [address]- 0025 October, [facility] [address] [place] [address] 17919- 1075 October, [facility] [id number] [place] [address] 19190- 3560 Sep, [facility] [address] [place] [address] 24897- 1664 Aug, Double vision H53.2 ; Occipital headache R51 ; Chronic obstructive pulmonary disease, unspecified COPD type J44.9 and Gastroesophageal reflux disease, esophagitis presence not specified K21.9 [facility] [address] [place] [address] 20176- 6202 Aug, [facility] [id number] [place] [address] 63269- 7325 Jul, Enlarged lymph node in neck R59.0 [facility] [address] 86886- 7521 Jul, [facility] [address] 41062- 5313 Jul, Chronic obstructive pulmonary disease, unspecified COPD type J44.9 ; Tobacco use Z72.0 ; Leukocytosis D72.829 ; Hyperlipidemia E78.5 and Neck abscess L02.11 [facility] [address] [place] [address] 09418- 3441 Jun, Shortness of breath R06.02 [facility] [address] [place] [address] 20017- 9974 17 May, 2015 Leukocytosis D72.829 and Shortness of breath R06.02 [facility] [address] [place] [address] 60752- 7401 09 May, 2015 Low back pain M54.5 ; Hyperlipidemia E78.5 ; Leukocytosis D72.829 ; Other osteoarthritis of spine, cervical region M47.892 and Shortness of breath R06.02 [facility] [address] [place] [address] 21937- 2232 18 Feb, 2015 Chest pain 786.50 ; Tobacco use 305.1 ; Back pain 724.5 and Hyperlipemia 272.4 [facility] [address] [place] [address] 02054- 6155 Jan, [facility] [address] 01734- 7063 Jan, Chronic low back pain 724.2 and Degenerative arthritis of cervical spine 721.[address] 57877- 4615 Jan, Chronic low back pain 724.2 and Neck pain 723.1 [facility] [address] [place] [address] 72164- 8832 Dec, Chronic low back pain 724.2 and Neck pain 723.1 [place] [id number] [place] [address] 98771- 0742 Nov, Chest pain 786.50 ; Dyspnea 786.09 ; Tobacco use 305.1 and Back pain 724.5 [facility] [address] [place] [address] 64700- 7400 Nov, [address] 24436- 7295 Nov, Disability examination V68.01 and Muscle pain 729.1 [place] [id number] [place] [address] 29710- 1173 October, History of ME (myocardial infarction) 412 ; Hyperlipidemia LDL goal < 100 272.4 ; Leukocytosis 288.60 and Glucose intolerance (pre-diabetes ) 790.29 [facility] [id number] [place] [address] 02026- 4832 October, Chest pain 786.50 ; Chronic low back pain 724.2 ; History of ME (myocardial infarction) 412 and Neuropathy 355.[address] [place] [address] 38047- 5590 October, Chronic low back pain 724.2 ; [...]
--- OUTSIDE RECORDS SUMMARY | 2018-04-03 14:38 | XMS REPORT ---
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 Role Phone DORIS LAYTON Unavailable PROBLEMS Type Condition ICD9-CM Code ZWM78-ZA Code Onset Dates Condition Status SNOMED Code Problem Enlarged lymph node R59.9 Active 54664692 Problem Hyperlipidemia, unspecified hyperlipidemia type E78.5 Active 09020298 Problem Tear of right rotator cuff, unspecified tear extent M75.101 Active 917781904 Problem Other chronic pain G89.29 Active 18316939 Problem Internal hemorrhoids K64.8 Active 68953398 Problem Nocturnal hypoxia G47.34 Active 555397531 Problem Panlobular emphysema J43.1 Active 9487604 Problem Hyperplastic colonic polyp, unspecified part of colon K63.5 Active 416363169 Problem Non-seasonal allergic rhinitis due to other allergic trigger J30.89 Active 30815967 Problem Mood disorder F39 Active 33402050 Problem Bipolar disorder, unspecified F31.9 Active 30440636 Problem Uncontrolled type 2 diabetes mellitus with hyperglycemia, without long -term current use of insulin E11.65 Active 854677548 Problem GERD with esophagitis K21.0 Active 494188693 Problem Other osteoarthritis of spine, cervical region M47.892 Active 617866667 Problem Hiatal hernia K44.9 Active 70879962 Problem External hemorrhoids K64.4 Active 07255705 Problem Leukocytosis D72.829 Active 911906271 Problem Hyperlipidemia E78.5 Active 03983108 Problem History of [place] (myocardial infarction) I25.2 Active 963180932 Problem Neuropathy G62.9 Active 328203814 Problem Other chronic gastritis without hemorrhage K29.50 Active 7051574 Problem Low back pain M54.5 Active 942184376 Problem Tobacco use Z72.0 Active 604587205 ALLERGIES No Information ENCOUNTERS Encounter Location Date Diagnosis [facility] [id number] [address] Jun, [facility] [address] [facility] [id number] [place] [address] Mar, [facility] [id number] [place] [address] Mar, [facility] [address] [place] [address] Feb, Mood disorder F39 [facility] [id number] [place] [address] Jan, [facility] [id number] [place] [address] Jan, Mood disorder F39 [facility] [id number] [place] [address] 0[address] Jan, [facility] [address] [address] Dec, Bipolar disorder, unspecified F31.9 [facility] [place] [facility] [address] [place] [address] 0469 Dec, [facility] [id number] [address] Dec, [facility] [address] [address] Dec, [facility] [address] [address] Dec, Mood disorder F39 [facility] [id number] [address] Nov, Bipolar disorder, unspecified F31.9 [facility] [id number] [place] [address]- 7076 Nov, [facility] [id number] [address] [address] Nov, Pain in left knee M25.562 ; Other chronic pain G89.29 ; Hyperlipidemia E78.5 ; Leukocytosis D72.829 ; Other osteoarthritis of spine, cervical region M47.892 ; Tobacco use Z72.0 and Uncontrolled type 2 diabetes mellitus with hyperglycemia, without long-term current use of insulin E11.65 [facility] [address] [address] 14 Nov, 2017 [facility] [id number] [place] [address] 19923- 6171 Nov, [facility] [id number] [place] [address] 57400- 2934 October, [facility] [id number] [place] [address] 37936- 7549 October, Low back pain M54.5 [facility] [id number] [place] [address] 80319- 8633 Sep, [facility] [id number] [place] [address] 98507- 3696 Sep, [facility] [id number] [place] [address] 82751- 3605 Sep, Leukocytosis D72.829 [facility] [id number] [place] [address] 89733- 8981 Sep, [facility] [id number] [place] [address] 12010- 3137 Sep, [facility] [id number] [place] [address] 66344- 5426 Sep, [facility] [id number] [place] [address] 38634- 0592 Aug, Low back pain M54.5 [facility] [id number] [place] [address] 56449- 0573 Aug, Bipolar disorder, unspecified F31.9 [facility] [id number] [place] [address] 04935- 2976 Aug, [facility] [id number] [place] [address] 59631- 1678 Aug, [facility] [id number] [place] [address] 15324- 6789 Aug, Uncontrolled type 2 diabetes mellitus with hyperglycemia, without long-term current use of insulin E11.65 ; Non-healing surgical wound, initial encounter T81.89XA ; Cellulitis of abdominal wall L03.311 ; Hyperlipidemia E78.5 ; Chronic obstructive pulmonary disease, unspecified COPD type J44.9 and Tobacco use Z72.0 [facility] [id number] [place] [address] 52940- 6541 Aug, [facility] [id number] [place] [address] 80033- 4609 Jul, [facility] [id number] [place] [address] 14915- 6133 Jul, [facility] [id number] [place] [address] 59666- 7991 Jul, Type 2 diabetes mellitus 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, unspecified nursing home insulin use status E11.40 [facility] [id number] [place] [address] 98930- 0558 Jun, Bipolar disorder, unspecified F31.9 [facility] [id number] [place] [address] 32347- 0344 Jun, [facility] [id number] [place] [address] 59251- 0431 Jun, Bipolar disorder, unspecified F31.9 [facility] [id number] [place] [address] 06814- 9852 Jun, Mood disorder F39 [facility] [id number] [place] [address] 93438- 6398 Jun, [facility] [id number] [place] [address] 40817- 7232 May, Fissure in skin of foot R23.4 ; Callus of foot L84 and Type 2 diabetes mellitus 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, 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 [facility] [id number] [place] [address] 47828- 7591 04 May, 2017 Mood disorder F39 [facility] [id number] [place] [address] 97863- 3707 Apr, [facility] [address] [address]70- 4592 Apr, Cough R05 and Tobacco use Z72.0 [facility] [address] 202077- 8285 Apr, Cough R05 and Tobacco use Z72.0 [facility] [address] 40491- 8235 Apr, Mood disorder F39 [facility] [id number] [place] [address] 18751- 9472 Apr, Low back pain M54.5 [facility] [address] 00045- 4754 Apr, Uncontrolled type 2 diabetes mellitus with hyperglycemia, without long-term current use of insulin E11.65 [facility] [id number] [place] [address] 82620- 0290 Apr, Uncontrolled type 2 diabetes mellitus with hyperglycemia, without long-term current use of insulin E11.65 [facility] [id number] [place] [address] 04342- 4658 Mar, Bipolar disorder, unspecified F31.9 [facility] [id number] [place] [address] 54428- 8828 Mar, [facility] [id number] [place] [address] 77120- 9341 Mar, Bipolar disorder, unspecified F31.9 [facility] [address] [place] [address]- 8547 Mar, Mood disorder F39 [facility] [address] 92698- 6371 Feb, [facility] [address] 75592- 0619 Feb, [facility] [address] 32202- 0271 Feb, [facility] [address] 21618- 0906 Feb, Bipolar disorder, unspecified F31.9 [facility] [address] 40337- 7449 Feb, Uncontrolled type 2 diabetes mellitus with hyperglycemia, without long-term current use of insulin E11.65 ; Encounter for immunization Z23 ; Vasovagal syncope R55 and Low back pain M54.5 [facility] [address] 96682- 6499 Jan, Bipolar disorder, unspecified F31.9 [facility] [address] 49955- 2842 Jan, [facility] [address] 39243- 6388 Jan, Fatigue, unspecified type R53.83 ; Nocturnal hypoxia G47.34 ; Leukocytosis D72.829 ; Other chronic gastritis without hemorrhage K29.50 ; Uncontrolled type 2 diabetes mellitus with hyperglycemia, without long-term current use of insulin E11.65 ; Alternating constipation and diarrhea R19.8 and Chronic obstructive pulmonary disease, unspecified COPD type J44.9 [address] [facility] [address] 04567- 2023 Jan, [facility] [address] 89870- 9982 Jan, Leukocytosis D72.829 [facility] [address] [place] [address]- 5077 Jan, Mood disorder F39 [facility] [address] [place] [address] 41952- 6576 Dec, Bipolar disorder, unspecified F31.9 [facility] [address] [place] [address] 14323- 9778 Dec, [facility] [id number] [place] [address] 79814 -2722 Dec, Acute gastritis without bleeding K29.00 [facility] [id number] [place] [address] 56024- 5183 Dec, Leukocytosis D72.829 [facility] [id number] [place] [address] 72947- 9449 Dec, [facility] [id number] [place] [address] 96539- 3359 Dec, Dental examination Z01.20 [facility] [id number] [place] [address] 89141- 0669 Dec, [facility] [id number] [place] [address] 67751- 0670 Dec, Leukocytosis D72.829 [facility] [id number] [place] [address] 50516- 5530 Dec, Uncontrolled type 2 diabetes mellitus with hyperglycemia, without long-term current use of insulin E11.65 [facility] [address] [address]- 6635 Nov, Dental examination Z01.20 [facility] [id number] [place] [address] 52975- 7372 Nov, [facility] [id number] [place] [address] 80363- 0413 Nov, Major depressive disorder, recurrent episode, moderate F33.1 [facility] [id number] [place] [address] 64972- 1543 Nov, Leukocytosis D72.829 [address] [address] [place] [address] 960439- 6291 Nov, Mood disorder F39 [facility] [id number] [place] [address] 73999- 8398 Nov, Other osteoarthritis of spine, cervical region M47.892 and Uncontrolled type 2 diabetes mellitus with hyperglycemia, without long-term current use of insulin E11.65 [facility] [id number] [place] [address] 65276- 8360 Nov, Leukocytosis D72.829 and Elevated serum glucose R73.9 [facility] [id number] [place] [address] 86343- 0842 October, Elevated serum glucose R73.9 [facility] [id number] [place] [address] 38703- 7833 October, Mood disorder F39 [facility] [id number] [place] [address] 04278- 9108 Sep, Major depressive disorder, recurrent episode, moderate F33.1 [facility] [id number] [place] [address] 54766- 9033 Sep, Mood disorder F39 [facility] [address] [place] [address] 39315- 6093 Aug, [facility] [id number] [place] [address] 15458- 8974 Jul, Major depressive disorder, recurrent episode, moderate F33.1 [facility] [address] [place] [address] 87916- 8110 Jul, Mood disorder F39 [facility] [id number] [place] [address] 98998- 2825 Jul, [facility] [id number] [place] [address] 77498- 5676 Jul, History of [place] (myocardial infarction) I25.2 ; Hyperlipidemia E78.5 ; Prediabetes R73.09 ; Chronic obstructive pulmonary disease, unspecified COPD type J44.9 and Tobacco use Z72.0 [facility] [id number] [place] [address] 10448- 1007 Jun, [facility] [id number] [place] [address] 40523- 4726 Jun, Mood disorder F39 [facility] [id number] [place] [address] 94171- 5525 Jun, [facility] [id number] [place] [address] 88539- 6126 May, Major depressive disorder, recurrent episode, moderate F33.1 and Primary insomnia F51.01 [facility] [id number] [place] [address] 08666- 5184 May, Mood disorder F39 [facility] [id number] [place] [address] 65467- 4017 Apr, [facility] [id number] [place] [address] 42527- 5622 Apr, Mood disorder F39 [facility] [id number] [place] [address] 44309- 2571 Apr, [facility] [id number] [place] [address] 01664- 6941 Apr, [facility] [id number] [place] [address] 85837- 1214 Apr, Chronic obstructive pulmonary disease, unspecified COPD type J44.9 and Non-seasonal allergic rhinitis due to other allergic trigger J30.89 [facility] [id number] [place] [address] 71508- 3568 Apr, Mood disorder F39 [facility] [id number] [place] [address] 19320- 8675 Apr, Major depressive disorder, recurrent episode, moderate F33.1 and PTSD (post-traumatic stress disorder) F43.10 [address] [facility] [id number] [place] [address] 22933- 0471 Apr, [facility] [id number] [place] [address] 60727- 7038 Apr, [facility] [id number] [place] [address] 05657- 7481 Apr, Chest pain, unspecified type R07.9 ; Chronic obstructive pulmonary disease, unspecified COPD type J44.9 ; Hyperlipidemia, unspecified hyperlipidemia type E78.5 and Tobacco use Z72.0 [facility] [id number] [place] [address] 82593- 1612 Mar, Mood disorder F39 [facility] [id number] [place] [address] 27084- 8583 Mar, Mood disorder F39 [facility] [id number] [place] [address] 38025- 2993 Mar, Other osteoarthritis of spine, cervical region M47.892 [facility] [id number] [place] [address] 78617- 4069 Mar, Tear of right rotator cuff, unspecified tear extent M75.101 [facility] [id number] [place] [address] 17601- 0899 Mar, [facility] [id number] [place] [address] 06583- 5761 Mar, Bipolar II disorder F31.81 [facility] [id number] [place] [address] 41580- 6464 Mar, [facility] [id number] [place] [address] 91205- 6230 Feb, Impingement syndrome of right shoulder M75.41 ; Tear of right rotator cuff, unspecified tear extent M75.101 and Loose body in right elbow M24.021 [facility] [address] [address]- 5241 Jan, [facility] [id number] [place] [address] 23215- 5395 Jan, [facility] [id number] [place] [address] 85705- 4079 Jan, Prediabetes R73.09 ; Other chronic pain G89.29 and Pain in right shoulder M25.511 [facility] [id number] [place] [address] 55954- 3654 Dec, [facility] [id number] [place] [address] 33111- 7420 Dec, Heartburn R12 and Chest discomfort R07.89 [facility] [id number] [place] [address] 77924- 1587 Dec, Impingement syndrome of right shoulder M75.41 and 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, 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 [facility] [id number] [place] [address] 03696- 0588 Nov, [facility] [id number] [place] [address] 77733- 4343 Nov, Leukocytosis D72.829 [facility] [id number] [place] [address] 01063- 5023 Nov, [facility] [id number] [place] [address] 83648- 4195 Nov, Enlarged lymph node R59.9 ; Chronic obstructive pulmonary disease, unspecified COPD type J44.9 ; Low back pain M54.5 ; Neuropathy G62.9 and Closed nondisplaced fracture of sternal end of right clavicle, sequela S42.017S [facility] [address] [address]- 8008 October, [facility] [id number] [place] [address] 68875- 2924 October, [facility] [id number] [place] [address] 52276- 5224 Sep, [facility] [id number] [place] [address] 61638- 5908 Aug, Double vision H53.2 ; Occipital headache R51 ; Chronic obstructive pulmonary disease, unspecified COPD type J44.9 and Gastroesophageal reflux disease, esophagitis presence not specified K21.9 [facility] [id number] [place] [address] 22647- 5700 Aug, [facility] [id number] [place] [address] 63160- 9446 Jul, Enlarged lymph node in neck R59.0 [facility] [address] 30747- 0889 Jul, [facility] [address] 27270- 5668 Jul, Chronic obstructive pulmonary disease, unspecified COPD type J44.9 ; Tobacco use Z72.0 ; Leukocytosis D72.829 ; Hyperlipidemia E78.5 and Neck abscess L02.11 [facility] [id number] [place] [address] 51496- 1244 Jun, Shortness of breath R06.02 [facility] [id number] [place] [address] 48626- 4147 17 May, 2015 Leukocytosis D72.829 and Shortness of breath R06.02 [facility] [id number] [place] [address] 01229- 7624 09 May, 2015 Low back pain M54.5 ; Hyperlipidemia E78.5 ; Leukocytosis D72.829 ; Other osteoarthritis of spine, cervical region M47.892 and Shortness of breath R06.02 [facility] [id number] [place] [address] 57485- 0100 18 Feb, 2015 Chest pain 786.50 ; Tobacco use 305.1 ; Back pain 724.5 and Hyperlipemia 272.4 [facility] [id number] [place] [address] 67665- 9643 Jan, [facility] [address] 19354- 2458 Jan, Chronic low back pain 724.2 and Degenerative arthritis of cervical spine 721.[address] 89824- 0822 Jan, Chronic low back pain 724.2 and Neck pain 723.1 [facility] [id number] [place] [address] 69207- 1267 Dec, Chronic low back pain 724.2 and Neck pain 723.1 [place] [id number] [place] [address] 08591- 4352 Nov, Chest pain 786.50 ; Dyspnea 786.09 ; Tobacco use 305.1 and Back pain 724.5 [facility] [id number] [place] [address] 41736- 8216 Nov, [address] 77567- 9943 Nov, Disability examination V68.01 and Muscle pain 729.1 [place] [id number] [place] [address] 44871- 6260 October, History of [place] (myocardial infarction) 412 ; Hyperlipidemia LDL goal < 100 272.4 ; Leukocytosis 288.60 and Glucose intolerance (pre-diabetes ) 790.29 [facility] [id number] [place] [address] 96853- 4624 October, Chest pain 786.50 ; Chronic low back pain 724.2 ; History of [place] (myocardial infarction) 412 and Neuropathy 355[address] [place] [address] 89719- 1900 October, Chronic low back pain 724.2 ; Chest pain 786.50 ; History of [place] (myocardial infarction) 412 and Neuropathy 355.9 IMMUNIZATIONS No Known Immunizations SOCIAL HISTORY Never Assessed REASON FOR VISIT FYI-wound care PLAN OF CARE VITAL SIGNS MEDICATIONS Unknown [...]
--- OUTSIDE RECORDS SUMMARY | 2018-04-03 14:38 | XMS REPORT ---
Author Author KINJAL DORIS Fatimah [facility] Address [address] [place] [address] Care Team Providers Care Bench Molder Name Role Phone DORIS LAYTON Unavailable PROBLEMS Type Condition ICD9-CM Code SCI92-WU Code Onset Dates Condition Status SNOMED Code Problem Enlarged lymph node R59.9 Active 44616041 Problem Hyperlipidemia, unspecified hyperlipidemia type E78.5 Active 19316158 Problem Tear of right rotator cuff, unspecified tear extent M75.101 Active 425716298 Problem Other chronic pain G89.29 Active 60588267 Problem Internal hemorrhoids K64.8 Active 97681372 Problem Nocturnal hypoxia G47.34 Active 952862025 Problem Panlobular emphysema J43.1 Active 1846204 Problem Hyperplastic colonic polyp, unspecified part of colon K63.5 Active 178449030 Problem Non-seasonal allergic rhinitis due to other allergic trigger J30.89 Active 55266849 Problem Mood disorder F39 Active 98132835 Problem Bipolar disorder, unspecified F31.9 Active 71364327 Problem Uncontrolled type 2 diabetes mellitus with hyperglycemia, without long -term current use of insulin E11.65 Active 513790218 Problem GERD with esophagitis K21.0 Active 110359456 Problem Other osteoarthritis of spine, cervical region M47.892 Active 223073120 Problem Hiatal hernia K44.9 Active 37460747 Problem External hemorrhoids K64.4 Active 48639741 Problem Leukocytosis D72.829 Active 781934537 Problem Hyperlipidemia E78.5 Active 80946244 Problem History of IN (myocardial infarction) I25.2 Active 836036582 Problem Neuropathy G62.9 Active 647072331 Problem Other chronic gastritis without hemorrhage K29.50 Active 3005503 Problem Low back pain M54.5 Active 471833835 Problem Tobacco use Z72.0 Active 045594386 ALLERGIES Substance Reaction Event Type Date Status Incruse Ellipta Unknown Drug Allergy Nov, Active Tetracycline HCl nausea and vomiting Drug Allergy Nov, Active Spiriva HandiHaler Suicidal ideation Drug Allergy Nov, Active Ampicillin anaphylaxis Drug Allergy Nov, Active penicillin anaphylaxis Non Drug Allergy Nov, Active strawberries Unknown Non Drug Allergy Nov, Active ENCOUNTERS Encounter Location Date Diagnosis [facility] [address] [address] Jun, [facility] [id number] [address] Mar, [facility] [address] [address] Feb, [facility] [id number] [address] Jan, [facility] [address], [place] [address] Jan, Mood disorder F39 [facility] [address] [address] Jan, [facility] [address] [address] Dec, Bipolar disorder, unspecified F31.9 [facility] [address] [address] Dec, [facility] [address] [address] Dec, [facility] [address] [address] Dec, [facility] [id number] [address] Dec, Mood disorder F39 [facility] [address] [address] Nov, Bipolar disorder, unspecified F31.9 [facility] [address] [address] Nov, [facility] [address] [address] Nov, Pain in left knee M25.562 ; Other chronic pain G89.29 ; Hyperlipidemia E78.5 ; Leukocytosis D72.829 ; Other osteoarthritis of spine, cervical region M47.892 ; Tobacco use Z72.0 and Uncontrolled type 2 diabetes mellitus with hyperglycemia, without long-term current use of insulin E11.65 [facility] [id number] [place] [address] 38757- 5196 Nov, [facility] [id number] [place] [address] 47079- 3854 Nov, [facility] [id number] [place] [address] 64248- 7889 October, [facility] [id number] [place] [address] 01236- 6173 October, Low back pain M54.5 [facility] [id number] [place] [address] 71142- 8940 Sep, [facility] [id number] [place] [address] 71203- 3976 Sep, [facility] [id number] [place] [address] 13901- 3486 Sep, Leukocytosis D72.829 [facility] [id number] [place] [address] 87620- 2316 Sep, [facility] [address] [address]- 7399 Sep, [facility] [id number] [place] [address] 937879- 0992 Sep, [facility] [id number] [place] [address] 03330- 3183 Aug, Low back pain M54.5 [facility] [id number] [place] [address] 26769- 1732 Aug, Bipolar disorder, unspecified F31.9 [facility] [id number] [place] [address] 86894- 2955 Aug, [facility] [id number] [place] [address] 76420- 1672 Aug, [facility] [id number] [place] [address] 71654- 0608 Aug, Uncontrolled type 2 diabetes mellitus with hyperglycemia, without long-term current use of insulin E11.65 ; Non-healing surgical wound, initial encounter T81.89XA ; Cellulitis of abdominal wall L03.311 ; Hyperlipidemia E78.5 ; Chronic obstructive pulmonary disease, unspecified COPD type J44.9 and Tobacco use Z72.0 [facility] [id number] [place] [address] 05326- 0156 Aug, [facility] [id number] [place] [address] 66895- 9133 Jul, [facility] [id number] [place] [address] 74295- 2643 Jul, [facility] [id number] [place] [address] 03783- 4763 Jul, Type 2 diabetes mellitus 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, unspecified penitentiary insulin use status E11.40 [address] [facility] [id number] [place] [address] 95125- 3580 Jun, Bipolar disorder, unspecified F31.9 [facility] [id number] [place] [address] 77637- 4521 Jun, [facility] [id number] [place] [address] 27717- 2373 Jun, Bipolar disorder, unspecified F31.9 [facility] [id number] [place] [address] 53893- 6864 Jun, Mood disorder F39 [facility] [id number] [place] [address] 79197- 6107 Jun, [place] [facility] [address] [address]- [address]60 May, Fissure in skin of foot R23.4 ; Callus of foot L84 and Type 2 diabetes mellitus 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, unspecified penitentiary insulin use status E11.40 [facility] [facility] [address] 92279- 2154 May, Mood disorder F39 [address] [address] 13445- 5744 Apr, [place] [facility] [address] 92573- 7577 Apr, Cough R05 and Tobacco use Z72.0 [place] [facility] [address] 25202- 1475 Apr, Cough R05 and Tobacco use Z72.0 [place] [facility] [address] 00144- 8870 06 Apr, 2017 Mood disorder F39 [address] [address] 71827- 8702 Apr, Low back pain M54.5 [facility] [address] 14005- 0073 06 Apr, 2017 Uncontrolled type 2 diabetes mellitus with hyperglycemia, without long-term current use of insulin E11.65 [facility] [id number] [place] [address] 42394- 1076 Apr, Uncontrolled type 2 diabetes mellitus with hyperglycemia, without long-term current use of insulin E11.65 [facility] [address] 98223- 2826 Mar, Bipolar disorder, unspecified F31.9 [facility] [facility] [address] 04992- 4018 Mar, [place] [address] [place] [address]- 1715 Mar, Bipolar disorder, unspecified F31.9 [facility] [id number] [place] [address] 40545- 0982 Mar, Mood disorder F39 [facility] [id number] [place] [address] 03123- 8864 Feb, [facility] [address] 61650- 2626 Feb, [facility] [address] 67320- 0476 Feb, [place] [facility] [address] 51415- 1838 Feb, Bipolar disorder, unspecified F31.9 [facility] [id number] [place] [address] 19338- 1219 Feb, Uncontrolled type 2 diabetes mellitus with hyperglycemia, without long-term current use of insulin E11.65 ; Encounter for immunization Z23 ; Vasovagal syncope R55 and Low back pain M54.5 [facility] [address] 82110- 6040 Jan, Bipolar disorder, unspecified F31.9 [facility] [id number] [place] [address] 60676- 7851 Jan, [facility] [id number] [place] [address] 54896- 8657 Jan, Fatigue, unspecified type R53.83 ; Nocturnal hypoxia G47.34 ; Leukocytosis D72.829 ; Other chronic gastritis without hemorrhage K29.50 ; Uncontrolled type 2 diabetes mellitus with hyperglycemia, without long-term current use of insulin E11.65 ; Alternating constipation and diarrhea R19.8 and Chronic obstructive pulmonary disease, unspecified COPD type J44.9 [facility] [id number] [place] [address] 52633- 8397 Jan, [place] [address] [place] [address]- 7564 Jan, Leukocytosis D72.829 [facility] [id number] [place] [address] 40551- 3721 Jan, Mood disorder F39 [facility] [id number] [place] [address] 20206- 5259 Dec, Bipolar disorder, unspecified F31.9 [facility] [id number] [place] [address] 72952- 0348 Dec, [facility] [id number] [place] [address] 93928 -5425 Dec, Acute gastritis without bleeding K29.00 [facility] [id number] [place] [address] 97823- 9059 Dec, Leukocytosis D72.829 [facility] [id number] [place] [address] 68925- 0236 Dec, [facility] [id number] [place] [address] 54571- 7045 Dec, Dental examination Z01.20 [facility] [id number] [place] [address] 59392- 7863 Dec, [facility] [id number] [place] [address] 98639- 8601 Dec, Leukocytosis D72.829 [facility] [id number] [place] [address] 84875- 1282 Dec, Uncontrolled type 2 diabetes mellitus with hyperglycemia, without long-term current use of insulin E11.65 [facility] [id number] [place] [address] 48885- 6494 Nov, Dental examination Z01.20 [facility] [id number] [place] [address] 93362- 6656 Nov, [facility] [id number] [place] [address] 19144- 9106 Nov, Major depressive disorder, recurrent episode, moderate F33.1 [place] [facility] [address] [address]- 7913 Nov, Leukocytosis D72.829 [facility] [id number] [place] [address] 33584- 5416 Nov, Mood disorder F39 [facility] [id number] [place] [address] 32369- 6168 Nov, Other osteoarthritis of spine, cervical region M47.892 and Uncontrolled type 2 diabetes mellitus with hyperglycemia, without long-term current use of insulin E11.65 [facility] [id number] [place] [address] 28328- 3149 Nov, Leukocytosis D72.829 and Elevated serum glucose R73.9 [facility] [id number] [place] [address] 92728- 3140 October, Elevated serum glucose R73.9 [facility] [id number] [place] [address] 98409- 8624 October, Mood disorder F39 [facility] [id number] [place] [address] 83339- 9105 Sep, Major depressive disorder, recurrent episode, moderate F33.1 [address] [address], [place] [address]- 4938 Sep, Mood disorder F39 [address] [place] [id number] [place] [address] 73404- 8941 Aug, [address] [id number] [place] [address] 35088- 5418 Jul, Major depressive disorder, recurrent episode, moderate F33.1 [address] [place] [id number] [place] [address] 84199- 0245 Jul, Mood disorder F39 [facility] [id number] [place] [address] 14782- 4073 Jul, [facility] [id number] [place] [address] 89671- 0637 Jul, History of IN (myocardial infarction) I25.2 ; Hyperlipidemia E78.5 ; Prediabetes R73.09 ; Chronic obstructive pulmonary disease, unspecified COPD type J44.9 and Tobacco use Z72.0 [facility] [id number] [place] [address] 33392- 0150 Jun, [facility] [id number] [place] [address] 01601- 7603 Jun, Mood disorder F39 [address] [facility] [id number] [place] [address] 53238- 7046 Jun, [facility] [id number] [place] [address] 24428- 9757 May, Major depressive disorder, recurrent episode, moderate F33.1 and Primary insomnia F51.01 [facility] [id number] [place] [address] 40785- 4164 May, Mood disorder F39 [facility] [id number] [place] [address] 03975- 4980 Apr, [facility] [id number] [place] [address] 18249- 1879 Apr, Mood disorder F39 [facility] [id number] [place] [address] 66863- 5969 Apr, [facility] [id number] [place] [address] 05840- 8935 Apr, [facility] [id number] [place] [address] 87896- 7253 Apr, Chronic obstructive pulmonary disease, unspecified COPD type J44.9 and Non-seasonal allergic rhinitis due to other allergic trigger J30.89 [facility] [id number] [place] [address] 02533- 1224 Apr, Mood disorder F39 [facility] [address] [address]- 2841 Apr, Major depressive disorder, recurrent episode, moderate F33.1 and PTSD (post-traumatic stress disorder) F43.10 [facility] [address] [address]- 1635 Apr, [facility] [id number] [place] [address] 46007- 9095 Apr, [facility] [id number] [place] [address] 68370- 0256 Apr, Chest pain, unspecified type R07.9 ; Chronic obstructive pulmonary disease, unspecified COPD type J44.9 ; Hyperlipidemia, unspecified hyperlipidemia type E78.5 and Tobacco use Z72.0 [facility] [id number] [place] [address] 44010- 7101 Mar, Mood disorder F39 [facility] [id number] [place] [address] 00893- 4742 Mar, Mood disorder F39 [facility] [id number] [place] [address] 44336- 0462 Mar, Other osteoarthritis of spine, cervical region M47.892 [facility] [id number] [place] [address] 62326- 4382 Mar, Tear of right rotator cuff, unspecified tear extent M75.101 [facility] [id number] [place] [address] 28738- 6309 Mar, [facility] [id number] [place] [address] 54667- 4190 Mar, Bipolar II disorder F31.81 [facility] [id number] [place] [address] 58043- 7259 Mar, [facility] [id number] [place] [address] 28280- 4448 Feb, Impingement syndrome of right shoulder M75.41 ; Tear of right rotator cuff, unspecified tear extent M75.101 and Loose body in right elbow M24.021 [place] [address] 41745- 0876 Jan, [facility] [id number] [place] [address] 34650- 4777 Jan, [place] [address] 71187- 0231 Jan, Prediabetes R73.09 ; Other chronic pain G89.29 and Pain in right shoulder M25.511 [place] [address] 11656- 7526 Dec, [place] [address] 45056- 4485 Dec, Heartburn R12 and Chest discomfort R07.89 [place] [address] 33191- 0019 Dec, Impingement syndrome of right shoulder M75.41 and 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, 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 [place] [address] 00381- 3236 Nov, [facility] [facility] [address] 14989- 0291 Nov, Leukocytosis D72.829 [facility] [id number] [place] [address] 97694- 7826 Nov, [facility] [facility] [address] 05038- 2058 Nov, Enlarged lymph node R59.9 ; Chronic obstructive pulmonary disease, unspecified COPD type J44.9 ; Low back pain M54.5 ; Neuropathy G62.9 and Closed nondisplaced fracture of sternal end of right clavicle, sequela S42.017S [place] [address] 58703- 7264 October, [facility] [address] [address]- 3976 October, [facility] [id number] [place] [address] 215708- 6449 Sep, [facility] [id number] [place] [address] 33652- 3045 Aug, Double vision H53.2 ; Occipital headache R51 ; Chronic obstructive pulmonary disease, unspecified COPD type J44.9 and Gastroesophageal reflux disease, esophagitis presence not specified K21.9 [facility] [id number] [place] [address] 76241- 4137 Aug, [facility] [id number] [place] [address] 55967- 5095 Jul, Enlarged lymph node in neck R59.0 [facility] [id number] [place] [address] 06529- 1161 Jul, [facility] [id number] [place] [address] 05213- 1534 Jul, Chronic obstructive pulmonary disease, unspecified COPD type J44.9 ; Tobacco use Z72.0 ; Leukocytosis D72.829 ; Hyperlipidemia E78.5 and Neck abscess L02.11 [facility] [id number] [place] [address] 01968- 2418 Jun, Shortness of breath R06.02 [place] [address] [place] [address] 15312- 9826 May, Leukocytosis D72.829 and Shortness of breath R06.02 [facility] [id number] [place] [address] 14436- 0768 09 May, 2015 Low back pain M54.5 ; Hyperlipidemia E78.5 ; Leukocytosis D72.829 ; Other osteoarthritis of spine, cervical region M47.892 and Shortness of breath R06.02 [facility] [id number] [place] [address] 67318- 9904 Feb, Chest pain 786.50 ; Tobacco use 305.1 ; Back pain 724.5 and Hyperlipemia 272.4 [facility] [id number] [place] [address] 21743- 6206 Jan, [place] [facility] [address] 07335- 6103 Jan, Chronic low back pain 724.2 and Degenerative arthritis of cervical spine 721.0 [place] [address] 44914- 8702 Jan, Chronic low back pain 724.2 and Neck pain 723.1 [place] [facility] [address] 59140- 4784 Dec, Chronic low back pain 724.2 and Neck pain 723.1 [place] [address] 86773- 0770 Nov, Chest pain 786.50 ; Dyspnea 786.09 ; Tobacco use 305.1 and Back pain 724.[address] 89794- 5470 Nov, [place] [facility] [address] 10365- 7835 Nov, Disability examination V68.01 and Muscle pain 729.1 [facility] [id number] [place] [address] 93257- 6473 October, History of IN (myocardial infarction) 412 ; Hyperlipidemia LDL goal < 100 272.4 ; Leukocytosis 288.60 and Glucose intolerance (pre-diabetes ) 790.[address] 03794- 0332 October, Chest pain 786.50 ; Chronic low back pain 724.2 ; History of IN (myocardial infarction) 412 and Neuropathy 355.[address] 885786- 0044 October, Chronic low back pain 724.2 ; Chest pain 786.50 ; History of IN (myocardial infarction) 412 and Neuropathy 355.9 IMMUNIZATIONS No Known Immunizations SOCIAL HISTORY Never Assessed REASON FOR VISIT Blood Pressure/DM Visit , A1C done at [facility] on 10/31/17 (6.7%)-[facility] PLAN OF CARE Activity Details Follow Up 3 Months Reason:DMII VITAL SIGNS Height 68 in 2017-11-30 Weight 243 lbs 2017-11-30 Temperature 98.4 degrees Fahrenheit 2017-11-30 Heart Rate 115 bpm 2017-11-30 Respiratory Rate 20 2017-11-30 Oximetry room air:97 % 2017-11-30 BMI 36.94 kg/m2 2017-11-30 Blood pressure systolic 118 mmHg 2017-11-30 Blood pressure diastolic 78 mmHg 2017-11-30 MEDICATIONS Medication Instructions Dosage Frequency Start Date End Date Duration Status Blood Glucose Monitor System w/Device DX- E 11.65 2 times a day- 3 times weekly. test blood sugar Nov, Active Crestor 10 MG Orally Once a day 1 tablet 24h Active Citalopram Hydrobromide 20 MG Orally Once a day 1.5 tablets 24h 30 days Active Albuterol Sulfate (2.5 MG/3ML) 0.083% Inhalation 4 times a day 3 ml 6h Active Carafate 1 GM Orally 4 times a day x 2 weeks then prn 1 tablet on an empty stomach Active Blood Glucose Test - and lancets. DX E11.65 2 times a day- 3 times weekly. test blood sugar 16 Active Oxygen inhalation Portable 2 liters per minute Active Symbicort 160-4.5 MCG/ACT INHALE TWO PUFFS BY MOUTH TWICE DAILY 30 Active Trazodone HCl 150 MG orally at night as needed for sleep 0.5 tablet 30 Active Singulair 10 mg Orally Once a day 1 tablet in the evening 24h 90 days Active Seroquel 200 MG Orally at night 1 tablet Dec, 30 days Active Metformin HCl 1000 MG Orally Twice a day 1 tablet with meals 12h Active Nebulizer - Active Baclofen 10 mg Orally once daily PRN 1 tablet with food or milk as needed Aug, Active Proventil HFA 108 (90 Base) MCG/ACT Inhalation every 4 hrs 2 puffs as needed 4h Jul, Active Aspir-81 81 MG Orally Once a day 1 tablet 24h Active Potassium Chloride Patrica ER 20 MEQ Orally Once a day 1 tablet with food 24h Active Dexilant 60 MG TAKE ONE CAPSULE BY MOUTH ONCE DAILY 90 Active ZyrTEC 10 MG Orally Once a day 1 tablet 24h Active Furosemide 40 MG Orally Once a day 1 tablet 24h Active RESULTS Name Result Date Reference Range CBC 2017-11-30 WHITE BLOOD CELL COUNT 13.1 3.8-10.8 RED BLOOD CELL COUNT 4.72 4.20-5.80 HEMOGLOBIN 13.8 13.2-17.1 HEMATOCRIT 42.4 38.5-50.0 MCV 89.8 80.0-100.0 MCH 29.2 27.0-33.0 MCHC 32.5 32.0-36.0 RDW 13.2 11.0-15.0 PLATELET COUNT 383 140-400 MPV 9.8 7.5-12.5 ABSOLUTE NEUTROPHILS 9209 [id number] ABSOLUTE LYMPHOCYTES 2699 850-3900 ABSOLUTE MONOCYTES 1035 200-950 ABSOLUTE EOSINOPHILS 92 15-500 ABSOLUTE BASOPHILS 66 0-200 NEUTROPHILS 70.3 LYMPHOCYTES 20.6 MONOCYTES 7.9 EOSINOPHILS 0.7 BASOPHILS 0.5 Xray : Knee, Left 3 views (IN HOUSE) 2017-11-30 PROCEDURES Procedure Date Ordered Result Body Site X-RAY EXAM OF KNEE, 3 November 30, 2017 VENIPUNCT, ROUTINE* November 30, 2017 LAB NOT BILLED BY [facility] November 30, 2017 INSTRUCTIONS MEDICATIONS ADMINISTERED No Known Medications [...]
--- OUTSIDE RECORDS SUMMARY | 2018-04-03 14:39 | XMS REPORT ---
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 Name Role Phone LINDSEYMARLIN GRIMES Unavailable PROBLEMS Type Condition ICD9-CM Code [id number] Code Onset Dates Condition Status SNOMED Code Problem Enlarged lymph node R59.9 Active 08527672 Problem Hyperlipidemia, unspecified hyperlipidemia type E78.5 Active 52029091 Problem Tear of right rotator cuff, unspecified tear extent M75.101 Active 377806791 Problem Other chronic pain G89.29 Active 12583984 Problem Internal hemorrhoids K64.8 Active 14080400 Problem Nocturnal hypoxia G47.34 Active 117285288 Problem Panlobular emphysema J43.1 Active 4795897 Problem Hyperplastic colonic polyp, unspecified part of colon K63.5 Active 088343798 Problem Non-seasonal allergic rhinitis due to other allergic trigger J30.89 Active 78481917 Problem Mood disorder F39 Active 46730557 Problem Bipolar disorder, unspecified F31.9 Active 75688264 Problem Uncontrolled type 2 diabetes mellitus with hyperglycemia, without long -term current use of insulin E11.65 Active 286378031 Problem GERD with esophagitis K21.0 Active 110821429 Problem Other osteoarthritis of spine, cervical region M47.892 Active 928653739 Problem Hiatal hernia K44.9 Active 16473691 Problem External hemorrhoids K64.4 Active 07985217 Problem Leukocytosis D72.829 Active 887012834 Problem Hyperlipidemia E78.5 Active 60682625 Problem History of [place] (myocardial infarction) I25.2 Active 749026912 Problem Neuropathy G62.9 Active 745272120 Problem Other chronic gastritis without hemorrhage K29.50 Active 0640356 Problem Low back pain M54.5 Active 042576609 Problem Tobacco use Z72.0 Active 075599059 ALLERGIES No Information ENCOUNTERS Encounter Location Date Diagnosis [facility] [id number], [place] [address] Jun, [facility] [address], [place] [address] 9046 Mar, [facility] [id number] [address] Feb, [facility] [address], [place] [address] 1796 Jan, [facility] [address], [place] [address] Jan, Mood disorder F39 [facility] [id number] [place] [address]99- 1951 Jan, [facility] [address], [place] [address] Dec, Bipolar disorder, unspecified F31.9 [facility] [id number], [place] [address] 9931 Dec, [facility] [id number], [place] [address] 7324 Dec, [facility] [id number], [place] [address] 5109 Dec, [facility] [address], [place] [address] 5923 Dec, Mood disorder F39 [facility] [address], [place] [address]60 Nov, Bipolar disorder, unspecified F31.9 [facility] [address], [place] [address] 4883 Nov, [facility] [address], [place] [address] 9183 Nov, Pain in left knee M25.562 ; Other chronic pain G89.29 ; Hyperlipidemia E78.5 ; Leukocytosis D72.829 ; Other osteoarthritis of spine, cervical region M47.892 ; Tobacco use Z72.0 and Uncontrolled type 2 diabetes mellitus with hyperglycemia, without long-term current use of insulin E11.65 [facility] [id number] [place] [address] 97093- 5502 Nov, [facility] [id number] [place] [address] 16481- 1025 Nov, [facility] [id number] [place] [address] 96082- 8211 October, [facility] [id number] [place] [address] 74814- 8517 October, Low back pain M54.5 [facility] [id number] [place] [address] 66238- 1697 Sep, [facility] [id number] [place] [address] 08748- 5110 Sep, [facility] [id number] [place] [address] 81510- 8787 Sep, Leukocytosis D72.829 [facility] [id number] [place] [address] 68658- 9349 Sep, [facility] [id number] [place] [address] 21707- 3031 Sep, [facility] [id number] [place] [address] 37037- 4587 Sep, [facility] [id number] [place] [address] 99408- 7663 Aug, Low back pain M54.5 [facility] [id number] [place] [address] 48322- 9827 Aug, Bipolar disorder, unspecified F31.9 [facility] [id number] [place] [address] 90467- 7860 Aug, [facility] [id number] [place] [address] 07723- 1087 Aug, [id number] [place] [address] 57696- 4110 Aug, Uncontrolled type 2 diabetes mellitus with hyperglycemia, without long-term current use of insulin E11.65 ; Non-healing surgical wound, initial encounter T81.89XA ; Cellulitis of abdominal wall L03.311 ; Hyperlipidemia E78.5 ; Chronic obstructive pulmonary disease, unspecified COPD type J44.9 and Tobacco use Z72.0 [place] [id number] [place] [address] 06849- 2179 Aug, [place] [id number] [place] [address] 21311- 0219 Jul, [place] [id number] [place] [address] 21713- 2627 Jul, [place] [id number] [place] [address] 86897- 9982 Jul, Type 2 diabetes mellitus 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, 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 [place] [id number] [place] [address] 13494- 7691 Jun, Bipolar disorder, unspecified F31.9 [place] [id number] [place] [address] 27407- 6897 Jun, [place] [id number] [place] [address] 65621- 2168 Jun, Bipolar disorder, unspecified F31.9 [place] [id number] [place] [address] 90553- 7108 Jun, Mood disorder F39 [place] [id number] [place] [address] 70393- 9169 Jun, [place] [id number] [place] [address] 15801- 2426 May, Fissure in skin of foot R23.4 ; Callus of foot L84 and Type 2 diabetes mellitus 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, 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 [address], [place] [address] 2185 May, Mood disorder F39 [place] [id number] [place] [address] 73249- 1298 Apr, [place] [id number] [place] [address] 89770- 6394 Apr, Cough R05 and Tobacco use Z72.0 [place] [id number] [place] [address] 45405- 4290 Apr, Cough R05 and Tobacco use Z72.0 [place] [id number] [place] [address] 54814- 5740 Apr, Mood disorder F39 [place] [id number] [place] [address] 69205- 5124 Apr, Low back pain M54.5 [place] [id number] [place] [address] 05204- 3830 06 Apr, 2017 Uncontrolled type 2 diabetes mellitus with hyperglycemia, without long-term current use of insulin E11.65 [place] [id number] [place] [address] 49281- 6885 Apr, Uncontrolled type 2 diabetes mellitus with hyperglycemia, without long-term current use of insulin E11.65 [place] [id number] [place] [address] 11603- 4494 Mar, Bipolar disorder, unspecified F31.9 [id number] [place] [address] 70616- 2772 Mar, [place] [id number] [place] [address] 12467- 5696 Mar, Bipolar disorder, unspecified F31.9 [place] [id number] [place] [address] 86423- 5010 Mar, Mood disorder F39 [place] [id number], [place] [address]- 4908 Feb, [facility] [id number] [place] [address] 03811- 1436 Feb, [facility] [id number] [place] [address] 03289- 0042 Feb, [facility] [id number] [place] [address] 04220- 6846 Feb, Bipolar disorder, unspecified F31.9 [place] [id number] [place] [address] 03869- 7173 Feb, Uncontrolled type 2 diabetes mellitus with hyperglycemia, without long-term current use of insulin E11.65 ; Encounter for immunization Z23 ; Vasovagal syncope R55 and Low back pain M54.5 [place] [id number] [place] [address] 71810- 3974 Jan, Bipolar disorder, unspecified F31.9 [place] [id number] [place] [address] 24076- 5485 Jan, [place] [id number] [place] [address] 09912- 2952 Jan, Fatigue, unspecified type R53.83 ; Nocturnal hypoxia G47.34 ; Leukocytosis D72.829 ; Other chronic gastritis without hemorrhage K29.50 ; Uncontrolled type 2 diabetes mellitus with hyperglycemia, without long-term current use of insulin E11.65 ; Alternating constipation and diarrhea R19.8 and Chronic obstructive pulmonary disease, unspecified COPD type J44.9 [place] [id number] [place] [address] 98532- 5680 Jan, [place] [id number] [place] [address] 38454- 0016 Jan, Leukocytosis D72.829 [place] [id number] [place] [address] 38497- 4865 Jan, Mood disorder F39 [place] [address] [place] [address]- 7806 Dec, Bipolar disorder, unspecified F31.9 [facility] [id number] [place] [address] 71279- 2142 Dec, [facility] [id number], [place] [address]14 Dec, Acute gastritis without bleeding K29.00 [facility] [id number] [place] [address] 91987- 3644 Dec, Leukocytosis D72.829 [facility] [id number] [place] [address] 45306- 1729 Dec, [facility] [id number] [place] [address] 30829- 4562 Dec, Dental examination Z01.20 [place] [id number] [place] [address] 24969- 8826 Dec, [facility] [id number] [place] [address] 19431- 9167 Dec, Leukocytosis D72.829 [place] [id number] [place] [address] 59162- 4457 Dec, Uncontrolled type 2 diabetes mellitus with hyperglycemia, without long-term current use of insulin E11.65 [place] [id number] [place] [address] 22023- 9994 Nov, Dental examination Z01.20 [facility] [id number] [place] [address] 23112- 9197 Nov, [facility] [id number] [place] [address] 56066- 1234 Nov, Major depressive disorder, recurrent episode, moderate F33.1 [facility] [id number] [place] [address] 12998- 5274 Nov, Leukocytosis D72.829 [facility] [id number] [place] [address] 48312- 2692 Nov, Mood disorder F39 [place] [id number] [place] [address] 39633- 1561 Nov, Other osteoarthritis of spine, cervical region M47.892 and Uncontrolled type 2 diabetes mellitus with hyperglycemia, without long-term current use of insulin E11.65 [place] [address] [place] [address] 55295- 5191 Nov, Leukocytosis D72.829 and Elevated serum glucose R73.9 [place] [id number] [place] [address] 40818- 3771 October, Elevated serum glucose R73.9 [place] [id number] [place] [address] 35739- 6688 October, Mood disorder F39 [place] [id number] [place] [address] 04904- 5670 Sep, Major depressive disorder, recurrent episode, moderate F33.1 [place] [id number] [place] [address] 93541- 0509 Sep, Mood disorder F39 [place] [id number] [place] [address] 41139- 6943 Aug, [place] [id number] [place] [address] 40078- 6774 Jul, Major depressive disorder, recurrent episode, moderate F33.1 [place] [id number] [place] [address] 50000- 1942 Jul, Mood disorder F39 [place] [id number] [place] [address] 09266- 2157 Jul, [place] [id number] [place] [address] 79186- 0611 Jul, History of [place] (myocardial infarction) I25.2 ; Hyperlipidemia E78.5 ; Prediabetes R73.09 ; Chronic obstructive pulmonary disease, unspecified COPD type J44.9 and Tobacco use Z72.0 [facility] [address], [place] [address]- 2388 Jun, [facility] [id number] [place] [address] 97096- 5397 Jun, Mood disorder F39 [facility] [id number] [place] [address] 71206- 0442 Jun, [facility] [id number] [place] [address] 57589- 5501 May, Major depressive disorder, recurrent episode, moderate F33.1 and Primary insomnia F51.01 [facility] [id number] [place] [address] 98940- 9511 May, Mood disorder F39 [facility] [id number] [place] [address] 87712- 3847 Apr, [facility] [id number] [place] [address] 75330- 5708 Apr, Mood disorder F39 [facility] [id number] [place] [address] 97181- 8997 Apr, [facility] [id number] [place] [address] 54592- 9592 Apr, [facility] [address] [place] [address] 08798- 1920 Apr, Chronic obstructive pulmonary disease, unspecified COPD type J44.9 and Non-seasonal allergic rhinitis due to other allergic trigger J30.89 [facility] [address], [place] [address]- 4437 Apr, Mood disorder F39 [facility] [id number] [place] [address] 61872- 3651 10 Apr, 2016 Major depressive disorder, recurrent episode, moderate F33.1 and PTSD (post-traumatic stress disorder) F43.10 [facility] [id number] [place] [address] 01944- 9016 Apr, [facility] [id number] [place] [address] 44819- 1753 Apr, [place] [id number] [place] [address] 71846- 4691 Apr, Chest pain, unspecified type R07.9 ; Chronic obstructive pulmonary disease, unspecified COPD type J44.9 ; Hyperlipidemia, unspecified hyperlipidemia type E78.5 and Tobacco use Z72.0 [place] [id number] [place] [address] 88263- 1781 Mar, Mood disorder F39 [place] [address] 06060- 8538 Mar, Mood disorder F39 [place] [id number] [place] [address] 78347- 8408 Mar, Other osteoarthritis of spine, cervical region M47.892 [place] [id number] [place] [address] 27040- 8271 Mar, Tear of right rotator cuff, unspecified tear extent M75.101 [place] [id number] [place] [address] 62805- 5866 Mar, [place] [id number] [place] [address] 18026- 7616 Mar, Bipolar II disorder F31.81 [place] [id number] [place] [address] 08789- 1042 Mar, [place] [id number] [place] [address] 30519- 6684 Feb, Impingement syndrome of right shoulder M75.41 ; Tear of right rotator cuff, unspecified tear extent M75.101 and Loose body in right elbow M24.021 [place] [id number] [place] [address] 53201- 6030 Jan, [place] [address] [place] [address]- 7369 Jan, [place] [id number] [place] [address] 56908- 2510 Jan, Prediabetes R73.09 ; Other chronic pain G89.29 and Pain in right shoulder M25.511 [place] [address] 22689- 9032 Dec, [place] [address] 13912- 4429 Dec, Heartburn R12 and Chest discomfort R07.89 [place] [address] 55499- 6306 Dec, Impingement syndrome of right shoulder M75.41 and 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, 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 [place] [address] 88514- 4643 Nov, [place] [address] 75423- 2314 Nov, Leukocytosis D72.829 [place] [id number] [place] [address] 96773- 3744 Nov, [place] [id number] [place] [address] 71847- 6659 Nov, Enlarged lymph node R59.9 ; Chronic obstructive pulmonary disease, unspecified COPD type J44.9 ; Low back pain M54.5 ; Neuropathy G62.9 and Closed nondisplaced fracture of sternal end of right clavicle, sequela S42.017S [place] [address] 18963- 7897 October, [place] [id number] [place] [address] 76630- 3241 October, [place] [id number] [place] [address] 42512- 5898 Sep, [place] [id number] [place] [address] 02077- 4235 Aug, Double vision H53.2 ; Occipital headache R51 ; Chronic obstructive pulmonary disease, unspecified COPD type J44.9 and Gastroesophageal reflux disease, esophagitis presence not specified K21.9 [place] [id number] [place] [address] 40415- 1590 Aug, [place] [address] 79149- 6086 Jul, Enlarged lymph node in neck R59.[address] 49116- 3873 Jul, [place] [address] 43206- 4670 Jul, Chronic obstructive pulmonary disease, unspecified COPD type J44.9 ; Tobacco use Z72.0 ; Leukocytosis D72.829 ; Hyperlipidemia E78.5 and Neck abscess L02.11 [place] [id number] [place] [address] 26638- 9498 Jun, Shortness of breath R06.02 [place] [address] 93205- 4089 May, Leukocytosis D72.829 and Shortness of breath R06.02 [place] [id number] [place] [address] 22141- 8679 May, Low back pain M54.5 ; Hyperlipidemia E78.5 ; Leukocytosis D72.829 ; Other osteoarthritis of spine, cervical region M47.892 and Shortness of breath R06.02 [place] [id number] [place] [address] 54361- 1947 18 Feb, 2015 Chest pain 786.50 ; Tobacco use 305.1 ; Back pain 724.5 and Hyperlipemia 272.[address] 13723- 6736 Jan, [place] [address] [id number] [place] [address] 28439- 6959 Jan, Chronic low back pain 724.2 and Degenerative arthritis of cervical spine 721.[address] 45269- 7884 Jan, Chronic low back pain 724.2 and Neck pain 723.[address] [address] Dec, Chronic low back pain 724.2 and Neck pain 723.[address] [address] Nov, Chest pain 786.50 ; Dyspnea 786.09 ; Tobacco use 305.1 and Back pain 724.[address] [address] Nov, [address] [address] Nov, Disability examination V68.01 and Muscle pain 729.[address] [address] October, History of [place] (myocardial infarction) 412 ; Hyperlipidemia LDL goal < 100 272.4 ; Leukocytosis 288.60 and Glucose intolerance (pre-diabetes ) 790.[address] [address] October, Chest pain 786.50 ; Chronic low back pain 724.2 ; History of [place] (myocardial infarction) 412 and Neuropathy 355.[address] [address] October, Chronic low back pain 724.2 ; Chest pain 786.50 ; History of [place] (myocardial infarction) 412 and Neuropathy 355.9 IMMUNIZATIONS No Known Immunizations SOCIAL HISTORY Never Assessed REASON FOR VISIT f/Cassandra [facility] PLAN OF CARE Activity Details Follow Up 4 Weeks Reason: VITAL SIGNS Height 68 in 2017-11-30 Weight 223.7 lbs 2017-11-30 Heart Rate 108 bpm 2017-11-30 Respiratory Rate 20 2017-11-30 BMI 34.01 kg/m2 2017-11-30 Blood pressure systolic 120 mmHg 2017-11-30 Blood pressure diastolic 76 mmHg 2017-11-30 MEDICATIONS Medication Instructions Dosage Frequency Start Date End Date Duration Status Albuterol Sulfate (2.5 MG/3ML) 0.083% Inhalation 4 times a day 3 ml 6h Active ZyrTEC 10 MG Orally Once a day 1 tablet 24h Active Singulair 10 mg Orally Once a day 1 tablet in the evening 24h 90 days Active Oxygen inhalation Portable 2 liters per minute Active Nebulizer - Active Metformin HCl 1000 MG Orally Twice a day 1 tablet with meals 12h 90 days Active Seroquel 300 MG Orally at night 1 tablet at night for three nights then take 1.5 tablets every night Dec, 30 days Active Symbicort 160-4.5 MCG/ACT INHALE TWO PUFFS BY MOUTH TWICE DAILY 30 Active Potassium Chloride Patrica ER 20 MEQ Orally Once a day 1 tablet with food 24h Active Blood Glucose Test - and lancets. DX E11.65 2 times a day- 3 times weekly. test blood sugar 16 Active Carafate 1 GM Orally 4 times a day x 2 weeks then prn 1 tablet on an empty stomach Active Proventil HFA 108 (90 Base) MCG/ACT Inhalation every 4 hrs 2 puffs as needed 4h 12 Jul, 2015 Active Trazodone HCl 150 MG orally at night as needed for sleep 0.5 tablet 30 days Active Dexilant 60 MG TAKE ONE CAPSULE BY MOUTH ONCE DAILY 90 Active Blood Glucose Monitor System w/Device DX- E 11.65 2 times a day- 3 times weekly. test blood sugar Nov, Active Crestor 10 MG Orally Once a day 1 tablet 24h Active Baclofen 10 mg Orally once daily PRN 1 tablet with food or milk as needed Aug, Active Aspir-81 81 MG Orally Once a day 1 tablet 24h Active Citalopram Hydrobromide 40 MG Orally Once [...]
--- OUTSIDE RECORDS SUMMARY | 2018-04-03 14:39 | XMS REPORT ---
Author Author KINJAL DORIS [facility] Address [facility] [place] [address] Care Team Providers Care Lineman Apprentice Name Role Phone DORIS LAYTON Unavailable PROBLEMS Type Condition ICD9-CM Code NTZ48-DE Code Onset Dates Condition Status SNOMED Code Problem Enlarged lymph node R59.9 Active 35377788 Problem Hyperlipidemia, unspecified hyperlipidemia type E78.5 Active 27277293 Problem Tear of right rotator cuff, unspecified tear extent M75.101 Active 593900331 Problem Other chronic pain G89.29 Active 20372968 Problem Internal hemorrhoids K64.8 Active 61404462 Problem Nocturnal hypoxia G47.34 Active 172976769 Problem Panlobular emphysema J43.1 Active 0950022 Problem Hyperplastic colonic polyp, unspecified part of colon K63.5 Active 750338270 Problem Non-seasonal allergic rhinitis due to other allergic trigger J30.89 Active 17742166 Problem Mood disorder F39 Active 31428890 Problem Bipolar disorder, unspecified F31.9 Active 56739766 Problem Uncontrolled type 2 diabetes mellitus with hyperglycemia, without long -term current use of insulin E11.65 Active 401942188 Problem GERD with esophagitis K21.0 Active 203215793 Problem Other osteoarthritis of spine, cervical region M47.892 Active 545255195 Problem Hiatal hernia K44.9 Active 30878048 Problem External hemorrhoids K64.4 Active 74567060 Problem Leukocytosis D72.829 Active 435762108 Problem Hyperlipidemia E78.5 Active 36294161 Problem History of MO (myocardial infarction) I25.2 Active 907669777 Problem Neuropathy G62.9 Active 061624014 Problem Other chronic gastritis without hemorrhage K29.50 Active 6800408 Problem Low back pain M54.5 Active 634418541 Problem Tobacco use Z72.0 Active 619492927 ALLERGIES No Information ENCOUNTERS Encounter Location Date Diagnosis [facility] [id number] [address] Jun, [facility] [address] [address] Mar, [facility] [address] [address] Feb, [facility] [address] [address] Jan, Mood disorder F39 [facility] [address] [place] [address]17656- 6982 Jan, [facility] [address] [place] [address] 75624- 6079 Dec, Bipolar disorder, unspecified F31.9 [facility] [address] [address] Dec, [facility] [id number] [address] Dec, [facility] [address] [address] Dec, [facility] [address] [address] 2481 Dec, Mood disorder F39 [facility] [address] [address] 9[address] Nov, Bipolar disorder, unspecified F31.9 [facility] [address] [address] Nov, [facility] [id number] [address] 100[address] Nov, Pain in left knee M25.562 ; Other chronic pain G89.29 ; Hyperlipidemia E78.5 ; Leukocytosis D72.829 ; Other osteoarthritis of spine, cervical region M47.892 ; Tobacco use Z72.0 and Uncontrolled type 2 diabetes mellitus with hyperglycemia, without long-term current use of insulin E11.65 [address] [facility] [id number] [place] [address] Nov, [facility] [address] [place] [address] Nov, [facility] [id number] [address] 49[address] October, [facility] [address] [place] [address], [place] [address] October, Low back pain M54.5 [facility] [address] [facility] [id number] [place] [address] 59[address] Sep, [facility] [address] [place] [address] 0[address] Sep, [facility] [address] [place] [address]- 3467 Sep, Leukocytosis D72.829 [facility] [address] [address]- 65[address] Sep, [facility] [address] [place] [address] 77[address] Sep, [facility] [address] [address]- 3[address] Sep, [facility] [address] [address] 7[address] Aug, Low back pain M54.5 [facility] [address] [address]- 67[address] Aug, Bipolar disorder, unspecified F31.9 [facility] [address] [place] [address]- 99[address] Aug, [facility] [id number] [address]- [address] Aug, [facility] [address] [address]- [address] Aug, Uncontrolled type 2 diabetes mellitus with hyperglycemia, without long-term current use of insulin E11.65 ; Non-healing surgical wound, initial encounter T81.89XA ; Cellulitis of abdominal wall L03.311 ; Hyperlipidemia E78.5 ; Chronic obstructive pulmonary disease, unspecified COPD type J44.9 and Tobacco use Z72.0 [id number] [place] [address] 64260- 3836 Aug, [address] [address] [address] Jul, [place] [address] [address]- [address] Jul, [place] [address] [address]- 7[address] Jul, Type 2 diabetes mellitus 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, unspecified oysterman insulin use status E11.40 [place] [id number] [place] [address] 13004- 6917 Jun, Bipolar disorder, unspecified F31.9 [place] [id number] [place] [address] 35049- 8766 Jun, [place] [id number] [place] [address] 13278- 2694 Jun, Bipolar disorder, unspecified F31.9 [place] [id number] [place] [address] 31927- 2107 Jun, Mood disorder F39 [place] [id number] [place] [address] 01072- 3727 Jun, [place] [address] [address]- [address]708 May, Fissure in skin of foot R23.4 ; Callus of foot L84 and Type 2 diabetes mellitus 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, unspecified oysterman insulin use status E11.40 [place] [id number] [place] [address] 77678- 8053 May, Mood disorder F39 [facility] [address] [address]- [address] Apr, [facility] [id number] [place] [address] 84916- 6601 Apr, Cough R05 and Tobacco use Z72.0 [facility] [id number] [place] [address] 64352- 6381 Apr, Cough R05 and Tobacco use Z72.0 [facility] [id number] [place] [address] 87116- 6380 Apr, Mood disorder F39 [facility] [id number] [place] [address] 34441- 8600 Apr, Low back pain M54.5 [facility] [id number] [place] [address] 52950- 6558 Apr, Uncontrolled type 2 diabetes mellitus with hyperglycemia, without long-term current use of insulin E11.65 [facility] [address] [place] [address] 18646- 4046 Apr, Uncontrolled type 2 diabetes mellitus with hyperglycemia, without long-term current use of insulin E11.65 [facility] [address] [address]- [address] Mar, Bipolar disorder, unspecified F31.9 [facility] [address] [address]- 4[address] Mar, [facility] [id number] [place] [address] 50231- 1819 Mar, Bipolar disorder, unspecified F31.9 [facility] [id number] [place] [address] 10912- 2179 Mar, Mood disorder F39 [facility] [address] [place] [address] 58562- 6567 Feb, [facility] [id number] [place] [address] 46357- 8444 Feb, [facility] [id number] [place] [address] 56353- 3783 Feb, [facility] [id number] [place] [address] 69975- 4606 Feb, Bipolar disorder, unspecified F31.9 [place] [address] [address] [address]- [address] Feb, Uncontrolled type 2 diabetes mellitus with hyperglycemia, without long-term current use of insulin E11.65 ; Encounter for immunization Z23 ; Vasovagal syncope R55 and Low back pain M54.5 [place] [address] [address]- [address] Jan, Bipolar disorder, unspecified F31.9 [place] [address] [address] [address]- 75[address] Jan, [place] [address] [address]- 7050 Jan, Fatigue, unspecified type R53.83 ; Nocturnal hypoxia G47.34 ; Leukocytosis D72.829 ; Other chronic gastritis without hemorrhage K29.50 ; Uncontrolled type 2 diabetes mellitus with hyperglycemia, without long-term current use of insulin E11.65 ; Alternating constipation and diarrhea R19.8 and Chronic obstructive pulmonary disease, unspecified COPD type J44.9 [place] [id number] [place] [address] 06939- 2178 Jan, [place] [id number] [place] [address] 12137- 1340 Jan, Leukocytosis D72.829 [place] [id number] [place] [address] 41483- 4629 Jan, Mood disorder F39 [place] [id number] [place] [address] 98825- 0288 Dec, Bipolar disorder, unspecified F31.9 [place] [address] [address]- 7730 Dec, [facility] [address] [address] Dec, Acute gastritis without bleeding K29.00 [facility] [address] [address]- 2398 Dec, Leukocytosis D72.829 [facility] [id number] [place] [address] 97722- 6128 Dec, [facility] [address] [place] [address] 75078- 1189 Dec, Dental examination Z01.20 [address] [place] [address] 50462- 4300 Dec, [place] [id number] [place] [address] 11070- 1606 Dec, Leukocytosis D72.829 [address] [address] [place] [address] 92084- 6528 Dec, Uncontrolled type 2 diabetes mellitus with hyperglycemia, without long-term current use of insulin E11.65 [address] [address] [address]- 5034 Nov, Dental examination Z01.20 [address] [address]- 7827 Nov, [facility] [address] [place] [address] 08268- 5583 Nov, Major depressive disorder, recurrent episode, moderate F33.1 [address] [id number] [place] [address] 51022- 5881 Nov, Leukocytosis D72.829 [address] [address]- 7843 Nov, Mood disorder F39 [address] [place] [address]- 5757 Nov, Other osteoarthritis of spine, cervical region M47.892 and Uncontrolled type 2 diabetes mellitus with hyperglycemia, without long-term current use of insulin E11.65 [id number] [place] [address] 71518- 9371 Nov, Leukocytosis D72.829 and Elevated serum glucose R73.9 [id number] [place] [address] 73037- 3854 October, Elevated serum glucose R73.9 [id number] [place] [address] 54672- 9000 October, Mood disorder F39 [address] [id number] [place] [address] 86851- 5791 Sep, Major depressive disorder, recurrent episode, moderate F33.1 [place] [id number] [place] [address] 78494- 5161 Sep, Mood disorder F39 [address] [id number] [place] [address] 42497- 1056 Aug, [place] [id number] [place] [address] 02587- 9178 Jul, Major depressive disorder, recurrent episode, moderate F33.1 [place] [id number] [place] [address] 92835- 6094 Jul, Mood disorder F39 [place] [id number] [place] [address] 59184- 9377 Jul, [id number] [place] [address] 21681- 8805 Jul, History of MO (myocardial infarction) I25.2 ; Hyperlipidemia E78.5 ; Prediabetes R73.09 ; Chronic obstructive pulmonary disease, unspecified COPD type J44.9 and Tobacco use Z72.0 [id number] [place] [address] 06547- 8146 Jun, [facility] [address] [address]- 0608 Jun, Mood disorder F39 [facility] [address] [place] [address] 71817- 4307 Jun, [facility] [id number] [place] [address] 93464- 0497 May, Major depressive disorder, recurrent episode, moderate F33.1 and Primary insomnia F51.01 [facility] [address] [place] [address] 87723- 7999 May, Mood disorder F39 [facility] [id number] [place] [address] 69615- 6655 Apr, [facility] [id number] [place] [address] 97638- 6564 Apr, Mood disorder F39 [facility] [id number] [place] [address] 88318- 4593 Apr, [facility] [id number] [place] [address] 31279- 4339 Apr, [facility] [id number] [place] [address] 92337- 9654 Apr, Chronic obstructive pulmonary disease, unspecified COPD type J44.9 and Non-seasonal allergic rhinitis due to other allergic trigger J30.89 [facility] [address] [place] [address] 70915- 0924 Apr, Mood disorder F39 [facility] [address] [place] [address] 07064- 9489 10 Apr, 2016 Major depressive disorder, recurrent episode, moderate F33.1 and PTSD (post-traumatic stress disorder) F43.10 [facility] [address] [address]- 1104 07 Apr, 2016 [facility] [id number] [place] [address] 86049- 3177 Apr, [facility] [id number] [place] [address] 21719- 9150 Apr, Chest pain, unspecified type R07.9 ; Chronic obstructive pulmonary disease, unspecified COPD type J44.9 ; Hyperlipidemia, unspecified hyperlipidemia type E78.5 and Tobacco use Z72.0 [address] [id number] [place] [address] 17549- 0180 Mar, Mood disorder F39 [facility] [id number] [place] [address] 70096- 3888 Mar, Mood disorder F39 [place] [id number] [place] [address] 76485- 9018 Mar, Other osteoarthritis of spine, cervical region M47.892 [place] [id number] [place] [address] 69547- 1665 Mar, Tear of right rotator cuff, unspecified tear extent M75.101 [place] [id number] [place] [address] 88391- 2436 Mar, [place] [id number] [place] [address] 06173- 6215 Mar, Bipolar II disorder F31.81 [facility] [id number] [place] [address] 77382- 9896 Mar, [facility] [id number] [place] [address] 17412- 8945 Feb, Impingement syndrome of right shoulder M75.41 ; Tear of right rotator cuff, unspecified tear extent M75.101 and Loose body in right elbow M24.021 [facility] [id number] [place] [address] 84156- 7844 Jan, [facility] [id number] [place] [address] 81942- 3505 Jan, [facility] [address] [place] [address]- 8759 Jan, Prediabetes R73.09 ; Other chronic pain G89.29 and Pain in right shoulder M25.511 [place] [id number] [place] [address] 50458- 0463 Dec, [place] [id number] [place] [address] 87901- 8480 Dec, Heartburn R12 and Chest discomfort R07.89 [place] [address] 63148- 7444 Dec, Impingement syndrome of right shoulder M75.41 and 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, 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 [place] [id number] [place] [address] 76578- 8846 Nov, [place] [address] 24426- 3127 Nov, Leukocytosis D72.829 [place] [id number] [place] [address] 90831- 4353 Nov, [place] [id number] [place] [address] 33099- 1851 Nov, Enlarged lymph node R59.9 ; Chronic obstructive pulmonary disease, unspecified COPD type J44.9 ; Low back pain M54.5 ; Neuropathy G62.9 and Closed nondisplaced fracture of sternal end of right clavicle, sequela S42.017S [place] [id number] [place] [address] 70776- 7291 October, [place] [id number] [place] [address] 49993- 0954 October, [place] [id number] [place] [address] 95526- 1915 Sep, [place] [id number] [place] [address] 31219- 7843 Aug, Double vision H53.2 ; Occipital headache R51 ; Chronic obstructive pulmonary disease, unspecified COPD type J44.9 and Gastroesophageal reflux disease, esophagitis presence not specified K21.9 [place] [id number] [place] [address] 25875- 0271 Aug, [place] [address] 72768- 8606 Jul, Enlarged lymph node in neck R59.0 [place] [address] 34299- 2741 Jul, [address] 87[address]- 4475 Jul, Chronic obstructive pulmonary disease, unspecified COPD type J44.9 ; Tobacco use Z72.0 ; Leukocytosis D72.829 ; Hyperlipidemia E78.5 and Neck abscess L02.[address] 46361- 2735 Jun, Shortness of breath R06.[address] 01258- 2433 May, Leukocytosis D72.829 and Shortness of breath R06.02 [place] [id number] [place] [address] 55062- 1348 09 May, 2015 Low back pain M54.5 ; Hyperlipidemia E78.5 ; Leukocytosis D72.829 ; Other osteoarthritis of spine, cervical region M47.892 and Shortness of breath R06.02 [place] [id number] [place] [address] 12862- 0307 18 Feb, 2015 Chest pain 786.50 ; Tobacco use 305.1 ; Back pain 724.5 and Hyperlipemia 272.[id number] [place] [address] 57126- 8080 Jan, [address] 63872- 3421 Jan, Chronic low back pain 724.2 and Degenerative arthritis of cervical spine 721.[address] 21478- 3281 Jan, Chronic low back pain 724.2 and Neck pain 723.1 [place] [address] 99133- 2392 Dec, Chronic low back pain 724.2 and Neck pain 723.1 [place] [address] 21112- 2121 Nov, Chest pain 786.50 ; Dyspnea 786.09 ; Tobacco use 305.1 and Back pain 724.5 [place] [address] 33093- 9746 Nov, [address] 29074- 9252 Nov, Disability examination V68.01 and Muscle pain 729.[address] 01266- 0375 October, History of MO (myocardial infarction) 412 ; Hyperlipidemia LDL goal < 100 272.4 ; Leukocytosis 288.60 and Glucose intolerance (pre-diabetes ) 790.[address] 73025- 7826 October, Chest pain 786.50 ; Chronic low back pain 724.2 ; History of MO (myocardial infarction) 412 and Neuropathy 355.[address] 35976- 9944 October, Chronic low back pain 724.2 ; Chest pain 786.50 ; History of MO (myocardial infarction) 412 and Neuropathy 355.9 IMMUNIZATIONS No Known Immunizations SOCIAL HISTORY Never Assessed REASON FOR VISIT Medication Side Effect--tcuppettRN PLAN OF CARE VITAL SIGNS Height 68 in 2017-11-16 Blood pressure systolic 126 mmHg 2017-11-16 Blood pressure diastolic 82 mmHg 2017-11-16 MEDICATIONS Unknown Medications RESULTS No Results PROCEDURES [...]
--- OUTSIDE RECORDS SUMMARY | 2018-04-03 14:39 | XMS REPORT ---
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 Role Phone DORIS LAYTON Unavailable PROBLEMS Type Condition ICD9-CM Code YDK32-CP Code Onset Dates Condition Status SNOMED Code Problem Enlarged lymph node R59.9 Active 27333237 Problem Hyperlipidemia, unspecified hyperlipidemia type E78.5 Active 41333503 Problem Tear of right rotator cuff, unspecified tear extent M75.101 Active 919843685 Problem Other chronic pain G89.29 Active 60318072 Problem Internal hemorrhoids K64.8 Active 40974332 Problem Nocturnal hypoxia G47.34 Active 034825110 Problem Panlobular emphysema J43.1 Active 5804731 Problem Hyperplastic colonic polyp, unspecified part of colon K63.5 Active 663937038 Problem Non-seasonal allergic rhinitis due to other allergic trigger J30.89 Active 36066793 Problem Mood disorder F39 Active 06405725 Problem Bipolar disorder, unspecified F31.9 Active 95662818 Problem Uncontrolled type 2 diabetes mellitus with hyperglycemia, without long -term current use of insulin E11.65 Active 096059905 Problem GERD with esophagitis K21.0 Active 575565723 Problem Other osteoarthritis of spine, cervical region M47.892 Active 042685469 Problem Hiatal hernia K44.9 Active 40374251 Problem External hemorrhoids K64.4 Active 62156127 Problem Leukocytosis D72.829 Active 308815524 Problem Hyperlipidemia E78.5 Active 91749399 Problem History of [place] (myocardial infarction) I25.2 Active 164449801 Problem Neuropathy G62.9 Active 238932630 Problem Other chronic gastritis without hemorrhage K29.50 Active 9354100 Problem Low back pain M54.5 Active 803676993 Problem Tobacco use Z72.0 Active 159009452 ALLERGIES No Information ENCOUNTERS Encounter Location Date Diagnosis [facility] [address] [address] Jun, [facility] [address] [address] Mar, [facility] [address] Feb, [facility] [address] [address] Jan, [facility] [address] [address] Jan, Mood disorder F39 [facility] [id number] [place] [address] 87817- 5479 Jan, [facility] [address] [address] Dec, Bipolar disorder, unspecified F31.9 [facility] [address] [address] Dec, [facility] [address] [address] 6[address] Dec, [facility] [address] [address] Dec, [facility] [address] [address] 4270 Dec, Mood disorder F39 [facility] [address] [address] 17[address] Nov, Bipolar disorder, unspecified F31.9 [facility] [address] [address] Nov, [facility] [address] [address] Nov, Pain in left knee M25.562 ; Other chronic pain G89.29 ; Hyperlipidemia E78.5 ; Leukocytosis D72.829 ; Other osteoarthritis of spine, cervical region M47.892 ; Tobacco use Z72.0 and Uncontrolled type 2 diabetes mellitus with hyperglycemia, without long-term current use of insulin E11.65 [facility] [address] [id number] [place] [address] 64926- 3099 Nov, [facility] [id number] [place] [address] 48935- 0711 Nov, [facility] [id number] [place] [address] 95827- 1556 October, [facility] [id number] [place] [address] 48068- 3456 October, Low back pain M54.5 [facility] [id number] [place] [address] 66601- 0447 Sep, [facility] [id number] [place] [address] 95847- 4012 Sep, [facility] [id number] [place] [address] 28065- 4866 Sep, Leukocytosis D72.829 [facility] [id number] [place] [address] 90802- 7596 Sep, [facility] [id number] [place] [address] 75534- 0147 Sep, [facility] [id number] [place] [address] 11092- 6710 Sep, [facility] [id number] [place] [address] 49661- 4448 Aug, Low back pain M54.5 [facility] [id number] [place] [address] 96329- 9764 Aug, Bipolar disorder, unspecified F31.9 [facility] [id number] [place] [address] 45319- 9471 Aug, [facility] [id number] [place] [address] 39631- 8940 Aug, [place] [address] [place] [address] 06251- 8929 Aug, Uncontrolled type 2 diabetes mellitus with hyperglycemia, without long-term current use of insulin E11.65 ; Non-healing surgical wound, initial encounter T81.89XA ; Cellulitis of abdominal wall L03.311 ; Hyperlipidemia E78.5 ; Chronic obstructive pulmonary disease, unspecified COPD type J44.9 and Tobacco use Z72.0 [facility] [id number] [place] [address] 68360- 2743 Aug, [facility] [id number] [place] [address] 05311- 4485 Jul, [facility] [id number] [place] [address] 16129- 6054 Jul, [facility] [id number] [place] [address] 16358- 3578 Jul, Type 2 diabetes mellitus 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, unspecified prison insulin use status E11.40 [facility] [id number] [place] [address] 89220- 5060 Jun, Bipolar disorder, unspecified F31.9 [facility] [id number] [place] [address] 51449- 1669 Jun, [facility] [id number] [place] [address] 15349- 7906 Jun, Bipolar disorder, unspecified F31.9 [facility] [id number] [place] [address] 32389- 6418 Jun, Mood disorder F39 [facility] [id number] [place] [address] 99006- 0003 Jun, [facility] [id number] [place] [address] 77088- 0925 May, Fissure in skin of foot R23.4 ; Callus of foot L84 and Type 2 diabetes mellitus 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, unspecified prison insulin use status E11.40 [place] [address] [address] 5742 May, Mood disorder F39 [facility] [id number] [place] [address] 65481- 4843 Apr, [facility] [id number] [place] [address] 61860- 7115 Apr, Cough R05 and Tobacco use Z72.0 [facility] [id number] [place] [address] 15782- 2557 Apr, Cough R05 and Tobacco use Z72.0 [facility] [id number] [place] [address] 10549- 0774 Apr, Mood disorder F39 [facility] [id number] [place] [address] 38698- 0068 Apr, Low back pain M54.5 [facility] [id number] [place] [address] 96410- 0888 06 Apr, 2017 Uncontrolled type 2 diabetes mellitus with hyperglycemia, without long-term current use of insulin E11.65 [facility] [id number] [place] [address] 09439- 7424 Apr, Uncontrolled type 2 diabetes mellitus with hyperglycemia, without long-term current use of insulin E11.65 [facility] [id number] [place] [address] 58664- 6567 Mar, Bipolar disorder, unspecified F31.9 [facility] [id number] [place] [address] 34467- 2144 Mar, [facility] [id number] [place] [address] 43917- 6213 Mar, Bipolar disorder, unspecified F31.9 [facility] [id number] [place] [address] 66814- 6190 Mar, Mood disorder F39 [facility] [id number] [address]- 5904 Feb, [facility] [id number] [place] [address] 36894- 2561 Feb, [facility] [id number] [place] [address] 14315- 8471 Feb, [facility] [id number] [place] [address] 30882- 6164 Feb, Bipolar disorder, unspecified F31.9 [facility] [id number] [place] [address] 76829- 0376 Feb, Uncontrolled type 2 diabetes mellitus with hyperglycemia, without long-term current use of insulin E11.65 ; Encounter for immunization Z23 ; Vasovagal syncope R55 and Low back pain M54.5 [facility] [id number] [place] [address] 00026- 8516 Jan, Bipolar disorder, unspecified F31.9 [facility] [id number] [place] [address] 03433- 6186 Jan, [facility] [id number] [place] [address] 24332- 8583 Jan, Fatigue, unspecified type R53.83 ; Nocturnal hypoxia G47.34 ; Leukocytosis D72.829 ; Other chronic gastritis without hemorrhage K29.50 ; Uncontrolled type 2 diabetes mellitus with hyperglycemia, without long-term current use of insulin E11.65 ; Alternating constipation and diarrhea R19.8 and Chronic obstructive pulmonary disease, unspecified COPD type J44.9 [facility] [id number] [place] [address] 88663- 0978 Jan, [facility] [id number] [place] [address] 36101- 6488 Jan, Leukocytosis D72.829 [facility] [id number] [place] [address] 63747- 7036 Jan, Mood disorder F39 [place] [place] [address] [place] [address]- 3866 Dec, Bipolar disorder, unspecified F31.9 [facility] [id number] [place] [address] 01075- 6361 Dec, [facility] [address] [address] Dec, Acute gastritis without bleeding K29.00 [facility] [id number] [place] [address] 47776- 9308 Dec, Leukocytosis D72.829 [facility] [id number] [place] [address] 92472- 1635 Dec, [facility] [id number] [place] [address] 36986- 1035 Dec, Dental examination Z01.20 [place] [id number] [place] [address] 12219- 1488 Dec, [facility] [id number] [place] [address] 84316- 5683 Dec, Leukocytosis D72.829 [place] [place] [id number] [place] [address] 55969- 9587 Dec, Uncontrolled type 2 diabetes mellitus with hyperglycemia, without long-term current use of insulin E11.65 [facility] [id number] [place] [address] 29321- 6772 Nov, Dental examination Z01.20 [facility] [id number] [place] [address] 61478- 9223 Nov, [facility] [id number] [place] [address] 82141- 1995 Nov, Major depressive disorder, recurrent episode, moderate F33.1 [facility] [id number] [place] [address] 20739- 4234 Nov, Leukocytosis D72.829 [facility] [id number] [place] [address] 59897- 4405 Nov, Mood disorder F39 [place] [address] [place] [address] 41336- 3432 Nov, Other osteoarthritis of spine, cervical region M47.892 and Uncontrolled type 2 diabetes mellitus with hyperglycemia, without long-term current use of insulin E11.65 [place] [place] [address] [place] [address] 96292- 4722 Nov, Leukocytosis D72.829 and Elevated serum glucose R73.9 [facility] [id number] [place] [address] 62413- 3643 October, Elevated serum glucose R73.9 [place] [id number] [place] [address] 62930- 8024 October, Mood disorder F39 [place] [id number] [place] [address] 85760- 9140 Sep, Major depressive disorder, recurrent episode, moderate F33.1 [facility] [address] [place] [address] 97285- 4778 Sep, Mood disorder F39 [place] [id number] [place] [address] 00000- 7299 Aug, [place] [address] [place] [address] 87159- 4189 Jul, Major depressive disorder, recurrent episode, moderate F33.1 [place] [id number] [place] [address] 88194- 3497 Jul, Mood disorder F39 [place] [address] [place] [address] 65356- 4943 Jul, [place] [address] [place] [address] 21413- 8318 Jul, History of [place] (myocardial infarction) I25.2 ; Hyperlipidemia E78.5 ; Prediabetes R73.09 ; Chronic obstructive pulmonary disease, unspecified COPD type J44.9 and Tobacco use Z72.0 [facility] [address] [address]- 5689 Jun, [facility] [id number] [place] [address] 37469- 8401 Jun, Mood disorder F39 [facility] [id number] [place] [address] 89109- 7635 Jun, [facility] [id number] [place] [address] 79065- 6584 May, Major depressive disorder, recurrent episode, moderate F33.1 and Primary insomnia F51.01 [facility] [id number] [place] [address] 01619- 1310 May, Mood disorder F39 [facility] [id number] [place] [address] 00688- 4140 Apr, [facility] [id number] [place] [address] 14420- 3004 Apr, Mood disorder F39 [facility] [id number] [place] [address] 53596- 5718 Apr, [facility] [id number] [place] [address] 37087- 6427 Apr, [facility] [address] [place] [address] 01941- 2573 Apr, Chronic obstructive pulmonary disease, unspecified COPD type J44.9 and Non-seasonal allergic rhinitis due to other allergic trigger J30.89 [facility] [address] [address]- 5284 Apr, Mood disorder F39 [facility] [id number] [place] [address] 80718- 2926 10 Apr, 2016 Major depressive disorder, recurrent episode, moderate F33.1 and PTSD (post-traumatic stress disorder) F43.10 [facility] [address] [place] [address] 47257- 5131 Apr, [facility] [id number] [place] [address] 10756- 3834 Apr, [place] [id number] [place] [address] 28195- 3187 Apr, Chest pain, unspecified type R07.9 ; Chronic obstructive pulmonary disease, unspecified COPD type J44.9 ; Hyperlipidemia, unspecified hyperlipidemia type E78.5 and Tobacco use Z72.0 [place] [id number] [place] [address] 14928- 2353 Mar, Mood disorder F39 [place] [address] 71017- 1804 Mar, Mood disorder F39 [place] [id number] [place] [address] 44166- 4199 Mar, Other osteoarthritis of spine, cervical region M47.892 [place] [place] [address] [place] [address] 30132- 0762 Mar, Tear of right rotator cuff, unspecified tear extent M75.101 [facility] [id number] [place] [address] 05867- 0880 Mar, [facility] [place] [id number] [place] [address] 03441- 7172 Mar, Bipolar II disorder F31.81 [facility] [address] [place] [address] 24947- 4008 Mar, [facility] [place] [address] [place] [address] 94546- 6621 Feb, Impingement syndrome of right shoulder M75.41 ; Tear of right rotator cuff, unspecified tear extent M75.101 and Loose body in right elbow M24.021 [place] [id number] [place] [address] 78623- 3905 Jan, [place] [address] [place] [address]- 2754 Jan, [facility] [id number] [place] [address] 57195- 6262 Jan, Prediabetes R73.09 ; Other chronic pain G89.29 and Pain in right shoulder M25.511 [place] [address] 41997- 3454 Dec, [place] [address] 95234- 0180 Dec, Heartburn R12 and Chest discomfort R07.89 [place] [address] 38403- 6623 Dec, Impingement syndrome of right shoulder M75.41 and 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, 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 [place] [address] 21933- 9644 Nov, [place] [address] 65378- 0311 Nov, Leukocytosis D72.829 [place] [address] [id number] [place] [address] 85017- 5427 Nov, [facility] [place] [id number] [place] [address] 96049- 6506 Nov, Enlarged lymph node R59.9 ; Chronic obstructive pulmonary disease, unspecified COPD type J44.9 ; Low back pain M54.5 ; Neuropathy G62.9 and Closed nondisplaced fracture of sternal end of right clavicle, sequela S42.017S [place] [address] 40031- 3311 October, [place] [place] [address] [id number] [place] [address] 55175- 4493 October, [facility] [place] [id number] [place] [address] 45260- 4410 Sep, [facility] [id number] [place] [address] 00598- 1223 Aug, Double vision H53.2 ; Occipital headache R51 ; Chronic obstructive pulmonary disease, unspecified COPD type J44.9 and Gastroesophageal reflux disease, esophagitis presence not specified K21.9 [place] [place] [id number] [place] [address] 47979- 0116 Aug, [place] [address] 27061- 1871 Jul, Enlarged lymph node in neck R59.[address] 41565- 3993 Jul, [place] [address] 52616- 9760 Jul, Chronic obstructive pulmonary disease, unspecified COPD type J44.9 ; Tobacco use Z72.0 ; Leukocytosis D72.829 ; Hyperlipidemia E78.5 and Neck abscess L02.11 [facility] [place] [id number] [place] [address] 90762- 6615 Jun, Shortness of breath R06.02 [place] [address] 90407- 5775 May, Leukocytosis D72.829 and Shortness of breath R06.02 [facility] [place] [id number] [place] [address] 75240- 2549 May, Low back pain M54.5 ; Hyperlipidemia E78.5 ; Leukocytosis D72.829 ; Other osteoarthritis of spine, cervical region M47.892 and Shortness of breath R06.02 [facility] [place] [id number] [place] [address] 14493- 6720 18 Feb, 2015 Chest pain 786.50 ; Tobacco use 305.1 ; Back pain 724.5 and Hyperlipemia 272.[address] 56020- 1368 Jan, [place] [id number] [place] [address] 93049- 0941 Jan, Chronic low back pain 724.2 and Degenerative arthritis of cervical spine 721.[address] 60226- 2978 Jan, Chronic low back pain 724.2 and Neck pain 723.[address] 49764- 6402 Dec, Chronic low back pain 724.2 and Neck pain 723.[address] 88717- 9092 Nov, Chest pain 786.50 ; Dyspnea 786.09 ; Tobacco use 305.1 and Back pain 724.[address] 35823- 6237 Nov, [address] 96706- 0234 Nov, Disability examination V68.01 and Muscle pain 729.[address] 53972- 1065 October, History of [place] (myocardial infarction) 412 ; Hyperlipidemia LDL goal < 100 272.4 ; Leukocytosis 288.60 and Glucose intolerance (pre-diabetes ) 790.[address] 69393- 4841 October, Chest pain 786.50 ; Chronic low back pain 724.2 ; History of [place] (myocardial infarction) 412 and Neuropathy 355.[address] 01870- 5277 October, Chronic low back pain 724.2 ; Chest pain 786.50 ; History of [place] (myocardial infarction) 412 and Neuropathy 355.9 IMMUNIZATIONS No Known Immunizations SOCIAL HISTORY Never Assessed REASON FOR VISIT 1 yr f/u DM Ed PLAN OF CARE VITAL SIGNS MEDICATIONS Unknown [...]
--- OUTSIDE RECORDS SUMMARY | 2018-04-03 14:40 | XMS REPORT ---
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 Role Phone DORIS LAYTON Unavailable PROBLEMS Type Condition ICD9-CM Code KTE10-BW Code Onset Dates Condition Status SNOMED Code Problem Enlarged lymph node R59.9 Active 68869145 Problem Hyperlipidemia, unspecified hyperlipidemia type E78.5 Active 99604668 Problem Tear of right rotator cuff, unspecified tear extent M75.101 Active 595830277 Problem Other chronic pain G89.29 Active 76735707 Problem Internal hemorrhoids K64.8 Active 99492127 Problem Nocturnal hypoxia G47.34 Active 018345152 Problem Panlobular emphysema J43.1 Active 8694403 Problem Hyperplastic colonic polyp, unspecified part of colon K63.5 Active 971775594 Problem Non-seasonal allergic rhinitis due to other allergic trigger J30.89 Active 17356648 Problem Mood disorder F39 Active 36163406 Problem Bipolar disorder, unspecified F31.9 Active 84447413 Problem Uncontrolled type 2 diabetes mellitus with hyperglycemia, without long -term current use of insulin E11.65 Active 464655176 Problem GERD with esophagitis K21.0 Active 225504811 Problem Other osteoarthritis of spine, cervical region M47.892 Active 471846883 Problem Hiatal hernia K44.9 Active 91897413 Problem External hemorrhoids K64.4 Active 29059440 Problem Leukocytosis D72.829 Active 873801120 Problem Hyperlipidemia E78.5 Active 94107356 Problem History of PA (myocardial infarction) I25.2 Active 336321895 Problem Neuropathy G62.9 Active 956989371 Problem Other chronic gastritis without hemorrhage K29.50 Active 7558852 Problem Low back pain M54.5 Active 917957202 Problem Tobacco use Z72.0 Active 534666345 ALLERGIES No Information ENCOUNTERS Encounter Location Date Diagnosis [facility] [id number] [address] Jun, [facility] [address] [address] Feb, [facility] [address], [place] [address] 4[address] Jan, Mood disorder F39 [facility] [address] [address] Jan, [facility] [id number] [place] [address] [id number]- 9270 Dec, Bipolar disorder, unspecified F31.9 [facility] [id number] [place] [address] 52716- 6012 Dec, [facility] [id number] [place] [address] 34828- 1356 Dec, [facility] [id number] [place] [address] 36112- 6736 Dec, [facility] [address], [place] [address] 5356 Dec, Mood disorder F39 [facility] [id number] [place] [address] 95603- 7393 Nov, Bipolar disorder, unspecified F31.9 [facility] [address], [place] [address] 9316 Nov, [facility] [id number] [place] [address] [id number]- 3248 Nov, Pain in left knee M25.562 ; Other chronic pain G89.29 ; Hyperlipidemia E78.5 ; Leukocytosis D72.829 ; Other osteoarthritis of spine, cervical region M47.892 ; Tobacco use Z72.0 and Uncontrolled type 2 diabetes mellitus with hyperglycemia, without long-term current use of insulin E11.65 [facility] [address], [place] [address] 0442 Nov, [facility] [address], [place] [address] 2082 Nov, [facility] [address], [place] [address] 3046 October, [facility] [address] [address] [address] October, Low back pain M54.5 [facility] [address], [place] [address] 8601 Sep, [facility] [id number] [place] [address] 7615 Sep, [facility] [address], [place] [address] 6981 Sep, Leukocytosis D72.829 [facility] [address], [place] [address]- 2636 Sep, [facility] [id number], [place] [address]- 6701 Sep, [facility] [address], [place] [address]- 7532 Sep, [facility] [address], [place] [address]- 2046 Aug, Low back pain M54.5 [facility] [address], [place] [address]- 5923 Aug, Bipolar disorder, unspecified F31.9 [facility] [address], [place] [address]- 9975 Aug, [facility] [address], [place] [address] 7506 Aug, [facility] [id number] [address] [address] Aug, Uncontrolled type 2 diabetes mellitus with hyperglycemia, without long-term current use of insulin E11.65 ; Non-healing surgical wound, initial encounter T81.89XA ; Cellulitis of abdominal wall L03.311 ; Hyperlipidemia E78.5 ; Chronic obstructive pulmonary disease, unspecified COPD type J44.9 and Tobacco use Z72.0 [facility] [id number] [place] [address] 88395- 5498 Aug, [facility] [id number] [place] [address] 88643- 8587 Jul, [facility] [address] 29863- 8853 Jul, [place] [address] 21618- 2106 Jul, Type 2 diabetes mellitus 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, unspecified terminal operator insulin use status E11.40 [place] [id number] [place] [address] 97429- 2761 Jun, Bipolar disorder, unspecified F31.9 [facility] [id number] [place] [address] 59457- 8372 Jun, [facility] [id number] [place] [address] 11192- 3008 Jun, Bipolar disorder, unspecified F31.9 [facility] [id number] [place] [address] 66496- 6901 Jun, Mood disorder F39 [facility] [id number] [place] [address] 27954- 9578 Jun, [facility] [id number] [place] [address] 67463- 7051 May, Fissure in skin of foot R23.4 ; Callus of foot L84 and Type 2 diabetes mellitus 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, unspecified terminal operator insulin use status E11.40 [facility] [id number] [place] [address] 16457- 8618 May, Mood disorder F39 [facility] [address] 58251- 7172 Apr, [facility] [address], [place] [address] 6368 Apr, Cough R05 and Tobacco use Z72.0 [facility] [id number] [place] [address] 08145- 3614 Apr, Cough R05 and Tobacco use Z72.0 [facility] [id number] [place] [address] 68660- 4080 Apr, Mood disorder F39 [facility] [id number] [place] [address] 22823- 7531 Apr, Low back pain M54.5 [facility] [id number] [place] [address] 84874- 0676 Apr, Uncontrolled type 2 diabetes mellitus with hyperglycemia, without long-term current use of insulin E11.65 [place] [place] [id number] [place] [address] 20565- 9713 Apr, Uncontrolled type 2 diabetes mellitus with hyperglycemia, without long-term current use of insulin E11.65 [place] [id number] [place] [address] 11683- 8437 Mar, Bipolar disorder, unspecified F31.9 [facility] [address], [place] [address]- 7715 Mar, [facility] [id number] [place] [address] 07022- 5591 Mar, Bipolar disorder, unspecified F31.9 [facility] [id number] [place] [address] 40465- 3164 Mar, Mood disorder F39 [facility] [id number] [place] [address] 241780- 6393 Feb, [facility] [id number] [place] [address] 37291- 2173 Feb, [facility] [id number] [place] [address] 18097- 1421 Feb, [facility] [id number] [place] [address] 35664- 6283 Feb, Bipolar disorder, unspecified F31.9 [facility] [id number] [place] [address] 89531- 3650 Feb, Uncontrolled type 2 diabetes mellitus with hyperglycemia, without long-term current use of insulin E11.65 ; Encounter for immunization Z23 ; Vasovagal syncope R55 and Low back pain M54.5 [place] [id number] [place] [address] 88142- 8990 Jan, Bipolar disorder, unspecified F31.9 [place] [id number] [place] [address] 21585- 0249 Jan, [address] [address] 58410- 0071 Jan, Fatigue, unspecified type R53.83 ; Nocturnal hypoxia G47.34 ; Leukocytosis D72.829 ; Other chronic gastritis without hemorrhage K29.50 ; Uncontrolled type 2 diabetes mellitus with hyperglycemia, without long-term current use of insulin E11.65 ; Alternating constipation and diarrhea R19.8 and Chronic obstructive pulmonary disease, unspecified COPD type J44.9 [place] [id number] [place] [address] 41762- 1424 Jan, [place] [id number] [place] [address] 29654- 6641 Jan, Leukocytosis D72.829 [place] [id number] [place] [address] 98593- 3173 Jan, Mood disorder F39 [address] [id number] [place] [address] 88153- 2523 Dec, Bipolar disorder, unspecified F31.9 [facility] [id number] [place] [address] 14982- 4609 Dec, [facility] [address], [place] [address] Dec, Acute gastritis without bleeding K29.00 [facility] [address], [place] [address]- 9369 Dec, Leukocytosis D72.829 [facility] [id number], [place] [address]- 6601 Dec, [facility] [id number] [place] [address] 21999- 6326 Dec, Dental examination Z01.20 [facility] [id number] [place] [address] 88667- 9838 Dec, [facility] [id number] [place] [address] 21551- 3430 Dec, Leukocytosis D72.829 [address] [id number] [place] [address] 08903- 6387 Dec, Uncontrolled type 2 diabetes mellitus with hyperglycemia, without long-term current use of insulin E11.65 [address] [id number] [place] [address] 15481- 0126 Nov, Dental examination Z01.20 [facility] [address], [place] [address]- 2471 Nov, [address] [id number] [place] [address] 72664- 0289 Nov, Major depressive disorder, recurrent episode, moderate F33.1 [facility] [address], [place] [address]- 9523 Nov, Leukocytosis D72.829 [facility] [address], [place] [address]- 1634 05 Nov, 2016 Mood disorder F39 [facility] [address], [place] [address]- 0329 Nov, Other osteoarthritis of spine, cervical region M47.892 and Uncontrolled type 2 diabetes mellitus with hyperglycemia, without long-term current use of insulin E11.65 [place] [id number] [place] [address] 98410- 1897 Nov, Leukocytosis D72.829 and Elevated serum glucose R73.9 [address] [id number] [place] [address] 82508- 5604 October, Elevated serum glucose R73.9 [address] [id number] [place] [address] 84408- 7537 October, Mood disorder F39 [address] [place] [id number] [place] [address] 95058- 0146 Sep, Major depressive disorder, recurrent episode, moderate F33.1 [address] [id number] [place] [address] 54249- 9569 Sep, Mood disorder F39 [address] [id number] [place] [address] 87463- 1197 Aug, [address] [id number] [place] [address] 78900- 6304 Jul, Major depressive disorder, recurrent episode, moderate F33.1 [address] [id number] [place] [address] 44122- 6764 Jul, Mood disorder F39 [address] [id number] [place] [address] 29344- 5375 Jul, [place] [id number] [place] [address] 89712- 2652 Jul, History of PA (myocardial infarction) I25.2 ; Hyperlipidemia E78.5 ; Prediabetes R73.09 ; Chronic obstructive pulmonary disease, unspecified COPD type J44.9 and Tobacco use Z72.0 [address] [place] [id number] [place] [address] 07300- 6121 Jun, [address] [id number] [place] [address] 66841- 9616 Jun, Mood disorder F39 [facility] [id number] [place] [address] 22900- 6368 Jun, [facility] [id number] [place] [address] 90396- 3845 May, Major depressive disorder, recurrent episode, moderate F33.1 and Primary insomnia F51.01 [facility] [id number] [place] [address] 26411- 2182 May, Mood disorder F39 [facility] [id number] [place] [address] 05890- 3492 Apr, [facility] [id number] [place] [address] 43664- 6535 Apr, Mood disorder F39 [facility] [id number] [place] [address] 14194- 8852 Apr, [facility] [id number] [place] [address] 51430- 2681 Apr, [facility] [id number] [place] [address] 80151- 2516 Apr, Chronic obstructive pulmonary disease, unspecified COPD type J44.9 and Non-seasonal allergic rhinitis due to other allergic trigger J30.89 [facility] [id number] [place] [address] 52140- 5700 Apr, Mood disorder F39 [facility] [id number] [place] [address] 14932- 7871 Apr, Major depressive disorder, recurrent episode, moderate F33.1 and PTSD (post-traumatic stress disorder) F43.10 [facility] [id number] [place] [address] 96255- 3067 07 Apr, 2016 [facility] [id number] [place] [address] 53633- 1169 Apr, [facility] [id number] [place] [address] 24875- 4003 Apr, Chest pain, unspecified type R07.9 ; Chronic obstructive pulmonary disease, unspecified COPD type J44.9 ; Hyperlipidemia, unspecified hyperlipidemia type E78.5 and Tobacco use Z72.0 [facility] [id number] [place] [address] 36595- 8612 Mar, Mood disorder F39 [facility] [id number] [place] [address] 61005- 8037 Mar, Mood disorder F39 [place] [id number] [place] [address] 82103- 7337 Mar, Other osteoarthritis of spine, cervical region M47.892 [place] [id number] [place] [address] 53205- 4577 Mar, Tear of right rotator cuff, unspecified tear extent M75.101 [place] [id number] [place] [address] 44739- 2180 Mar, [place] [id number] [place] [address] 95647- 2924 Mar, Bipolar II disorder F31.81 [place] [id number] [place] [address] 06283- 2042 Mar, [place] [id number] [place] [address] 45428- 0265 Feb, Impingement syndrome of right shoulder M75.41 ; Tear of right rotator cuff, unspecified tear extent M75.101 and Loose body in right elbow M24.021 [place] [id number] [place] [address] 17272- 0514 Jan, [place] [id number] [place] [address] 96554- 2049 Jan, [place] [id number] [place] [address] 04687- 4388 Jan, Prediabetes R73.09 ; Other chronic pain G89.29 and Pain in right shoulder M25.511 [place] [id number] [place] [address] 86600- 5318 Dec, [place] [address] 90834- 9945 Dec, Heartburn R12 and Chest discomfort R07.89 [place] [address] 16467- 7868 Dec, Impingement syndrome of right shoulder M75.41 and 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, 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 [place] [address] 29695- 2576 Nov, [place] [address] 23605- 8434 Nov, Leukocytosis D72.829 [place] [address] 86256- 0602 Nov, [place] [id number] [place] [address] 08883- 6275 Nov, Enlarged lymph node R59.9 ; Chronic obstructive pulmonary disease, unspecified COPD type J44.9 ; Low back pain M54.5 ; Neuropathy G62.9 and Closed nondisplaced fracture of sternal end of right clavicle, sequela S42.017S [place] [id number] [place] [address] 92676- 9398 October, [place] [id number] [place] [address] 38011- 7535 October, [place] [id number] [place] [address] 20844- 8102 Sep, [place] [id number] [place] [address] 86079- 3924 Aug, Double vision H53.2 ; Occipital headache R51 ; Chronic obstructive pulmonary disease, unspecified COPD type J44.9 and Gastroesophageal reflux disease, esophagitis presence not specified K21.9 [place] [id number] [place] [address] 93463- 9546 Aug, [place] [id number] [place] [address] 76172- 0422 Jul, Enlarged lymph node in neck R59.0 [place] [address] 45641- 3497 Jul, [place] [address] 05422- 8951 Jul, Chronic obstructive pulmonary disease, unspecified COPD type J44.9 ; Tobacco use Z72.0 ; Leukocytosis D72.829 ; Hyperlipidemia E78.5 and Neck abscess L02.11 [place] [address] 90962- 5854 Jun, Shortness of breath R06.02 [place] [address] 79660- 8824 May, Leukocytosis D72.829 and Shortness of breath R06.02 [place] [address] 93043- 4257 May, Low back pain M54.5 ; Hyperlipidemia E78.5 ; Leukocytosis D72.829 ; Other osteoarthritis of spine, cervical region M47.892 and Shortness of breath R06.02 [place] [id number] [place] [address] 30832- 4977 Feb, Chest pain 786.50 ; Tobacco use 305.1 ; Back pain 724.5 and Hyperlipemia 272.4 [place] [id number] [place] [address] 13066- 0770 Jan, [id number] [place] [address] 50076- 3951 Jan, Chronic low back pain 724.2 and Degenerative arthritis of cervical spine 721.0 [address] [place] [address] 19987- 2055 Jan, Chronic low back pain 724.2 and Neck pain 723.[address] 76687- 5244 Dec, Chronic low back pain 724.2 and Neck pain 723.[address] 82417- 7435 Nov, Chest pain 786.50 ; Dyspnea 786.09 ; Tobacco use 305.1 and Back pain 724.[address] 98789- 5235 Nov, [address] 48126- 4635 Nov, Disability examination V68.01 and Muscle pain 729.[address] 69082- 8723 October, History of PA (myocardial infarction) 412 ; Hyperlipidemia LDL goal < 100 272.4 ; Leukocytosis 288.60 and Glucose intolerance (pre-diabetes ) 790.[address] 95235- 9494 October, Chest pain 786.50 ; Chronic low back pain 724.2 ; History of PA (myocardial infarction) 412 and Neuropathy 355.[address] 12133- 4009 October, Chronic low back pain 724.2 ; Chest pain 786.50 ; History of PA (myocardial infarction) 412 and Neuropathy 355.9 IMMUNIZATIONS No Known Immunizations SOCIAL HISTORY Never Assessed REASON FOR VISIT Medication List update- Cardiology PLAN OF CARE VITAL SIGNS MEDICATIONS Medication Instructions Dosage Frequency Start Date End Date Duration Status Singulair 10 mg Orally Once a day 1 tablet in the evening 24h 90 days Active Crestor 10 MG Orally Once a day 1 tablet 24h Active Metformin HCl 1000 MG Orally Twice a day 1 tablet with meals 12h 90 days Active Dexilant 60 MG TAKE ONE [...] inhalation Portable 2 liters per minute Active Montelukast Sodium 10 MG TAKE ONE TABLET BY MOUTH ONCE DAILY IN THE EVENING 90 Active Aspir-81 81 MG Orally Once a day 1 tablet 24h Active Baclofen 10 mg Orally once daily PRN 1 tablet with food or milk as needed Aug, Active Trazodone HCl 150 MG orally at night as needed for sleep 0.5 tablet 30 days Active Seroquel 200 MG Orally at night 1 tablet Dec, 30 days Active Citalopram Hydrobromide 20 MG Orally Once a day 1.5 tablets 24h 30 days Active Albuterol Sulfate (2.5 MG/3ML) 0.083% Inhalation 4 times a day 3 ml 6h Active Potassium Chloride Patrica ER 20 MEQ Orally Once a day 1 tablet with food 24h Active Metformin HCl 500 MG TAKE TWO TABLETS BY MOUTH TWICE DAILY WITH MEALS 90 Active Proventil HFA 108 (90 Base) MCG/ACT Inhalation every 4 hrs 2 puffs as needed 4h Jul, Active Symbicort 160-4.5 MCG/ACT INHALE TWO PUFFS BY MOUTH TWICE DAILY 30 Active Nebulizer - Active Blood Glucose Monitor System w/Device DX- E 11.65 2 times a day- 3 times weekly. test blood sugar Nov, Active Furosemide 40 MG Orally Once a [...]
--- OUTSIDE RECORDS SUMMARY | 2018-04-03 14:40 | XMS REPORT ---
Author Author KINJAL DORIS [facility] Address [facility] [place] [address] Care Team Providers Care Stockroom Associate Name Role Phone DORIS LAYTON Unavailable PROBLEMS Type Condition ICD9-CM Code GII52-WR Code Onset Dates Condition Status SNOMED Code Problem Enlarged lymph node R59.9 Active 17194194 Problem Hyperlipidemia, unspecified hyperlipidemia type E78.5 Active 38562669 Problem Tear of right rotator cuff, unspecified tear extent M75.101 Active 603136276 Problem Other chronic pain G89.29 Active 95484615 Problem Internal hemorrhoids K64.8 Active 83482428 Problem Nocturnal hypoxia G47.34 Active 176445782 Problem Panlobular emphysema J43.1 Active 5474455 Problem Hyperplastic colonic polyp, unspecified part of colon K63.5 Active 775172629 Problem Non-seasonal allergic rhinitis due to other allergic trigger J30.89 Active 02795155 Problem Mood disorder F39 Active 10929133 Problem Bipolar disorder, unspecified F31.9 Active 68916811 Problem Uncontrolled type 2 diabetes mellitus with hyperglycemia, without long -term current use of insulin E11.65 Active 012484276 Problem GERD with esophagitis K21.0 Active 472386895 Problem Other osteoarthritis of spine, cervical region M47.892 Active 832902376 Problem Hiatal hernia K44.9 Active 29546087 Problem External hemorrhoids K64.4 Active 40833374 Problem Leukocytosis D72.829 Active 903805139 Problem Hyperlipidemia E78.5 Active 82313016 Problem History of NH (myocardial infarction) I25.2 Active 638480057 Problem Neuropathy G62.9 Active 836493803 Problem Other chronic gastritis without hemorrhage K29.50 Active 9888404 Problem Low back pain M54.5 Active 108250847 Problem Tobacco use Z72.0 Active 325087685 ALLERGIES No Information ENCOUNTERS Encounter Location Date Diagnosis [facility] [id number] [address] Jun, [facility] [address] [address] Feb, [facility] [address] [address] 7966 Jan, Mood disorder F39 [facility] [address] [address] [address] Jan, [facility] [id number] [place] [address] [id number]- 9863 Dec, Bipolar disorder, unspecified F31.9 [facility] [id number] [place] [address] 43958- 8605 Dec, [facility] [id number] [place] [address] 98109- 6395 Dec, [facility] [id number] [place] [address] 21616- 7662 Dec, [facility] [address], [place] [address] 9659 Dec, Mood disorder F39 [facility] [id number] [place] [address] 58002- 7730 Nov, Bipolar disorder, unspecified F31.9 [facility] [address], [place] [address] 5983 Nov, [facility] [id number] [place] [address] 39435754- 0169 Nov, Pain in left knee M25.562 ; Other chronic pain G89.29 ; Hyperlipidemia E78.5 ; Leukocytosis D72.829 ; Other osteoarthritis of spine, cervical region M47.892 ; Tobacco use Z72.0 and Uncontrolled type 2 diabetes mellitus with hyperglycemia, without long-term current use of insulin E11.65 [facility] [address], [place] [address] 7903 Nov, [facility] [address], [place] [address] 1330 Nov, [facility] [address], [place] [address] 5196 October, [facility] [address] 5579 October, Low back pain M54.5 [facility] [address], [place] [address] 0252 Sep, [facility] [address] [address] 20[address] Sep, [facility] [address], [place] [address]- 6557 Sep, Leukocytosis D72.829 [facility] [address], [place] [address]- 4766 Sep, [facility] [address], [place] [address]- 0944 Sep, [facility] [address], [place] [address]- 2469 Sep, [facility] [address], [place] [address]- 7076 Aug, Low back pain M54.5 [facility] [address], [place] [address]- 8330 Aug, Bipolar disorder, unspecified F31.9 [facility] [address], [place] [address]- 3906 Aug, [facility] [address], [place] [address]- 0376 Aug, [facility] [id number] [address] 8190 Aug, Uncontrolled type 2 diabetes mellitus with hyperglycemia, without long-term current use of insulin E11.65 ; Non-healing surgical wound, initial encounter T81.89XA ; Cellulitis of abdominal wall L03.311 ; Hyperlipidemia E78.5 ; Chronic obstructive pulmonary disease, unspecified COPD type J44.9 and Tobacco use Z72.0 [facility] [id number] [place] [address] 00283- 5158 Aug, [facility] [id number] [place] [address] 67211- 6276 Jul, [facility] [address] [address]- 5236 Jul, [place] [address] [address] 64995- 4456 Jul, Type 2 diabetes mellitus 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, 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 [facility] [id number] [place] [address] 57659- 7660 Jun, Bipolar disorder, unspecified F31.9 [facility] [id number] [place] [address] 35282- 8134 Jun, [facility] [id number] [place] [address] 34324- 3192 Jun, Bipolar disorder, unspecified F31.9 [facility] [id number] [place] [address] 61666- 6209 Jun, Mood disorder F39 [facility] [id number] [place] [address] 62997- 3953 Jun, [facility] [id number] [place] [address] 45893- 0784 May, Fissure in skin of foot R23.4 ; Callus of foot L84 and Type 2 diabetes mellitus 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, 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 [facility] [id number] [place] [address] 21014- 0978 May, Mood disorder F39 [facility] [address] 05852- 4373 Apr, [facility] [address], [place] [address]- 4892 Apr, Cough R05 and Tobacco use Z72.0 [facility] [id number] [place] [address] 46348- 5409 Apr, Cough R05 and Tobacco use Z72.0 [facility] [id number] [place] [address] 68461- 3787 Apr, Mood disorder F39 [facility] [id number] [place] [address] 59064- 0146 Apr, Low back pain M54.5 [facility] [id number] [place] [address] 28691- 9951 Apr, Uncontrolled type 2 diabetes mellitus with hyperglycemia, without long-term current use of insulin E11.65 [facility] [id number] [place] [address] 30592- 5679 Apr, Uncontrolled type 2 diabetes mellitus with hyperglycemia, without long-term current use of insulin E11.65 [facility] [address] [place] [address] 17613- 6505 Mar, Bipolar disorder, unspecified F31.9 [facility] [address], [place] [address]- 6028 Mar, [facility] [id number] [place] [address] 62563- 6383 Mar, Bipolar disorder, unspecified F31.9 [facility] [id number] [place] [address] 05111- 6075 Mar, Mood disorder F39 [facility] [id number] [place] [address] 224028- 3906 Feb, [facility] [id number] [place] [address] 89715- 6369 Feb, [facility] [id number] [place] [address] 99731- 4457 Feb, [facility] [id number] [place] [address] 31358- 8235 Feb, Bipolar disorder, unspecified F31.9 [facility] [id number] [place] [address] 89310- 5541 Feb, Uncontrolled type 2 diabetes mellitus with hyperglycemia, without long-term current use of insulin E11.65 ; Encounter for immunization Z23 ; Vasovagal syncope R55 and Low back pain M54.5 [facility] [id number] [place] [address] 00477- 9606 Jan, Bipolar disorder, unspecified F31.9 [facility] [id number] [place] [address] 17727- 7587 Jan, [facility] [address] 79128- 6195 Jan, Fatigue, unspecified type R53.83 ; Nocturnal hypoxia G47.34 ; Leukocytosis D72.829 ; Other chronic gastritis without hemorrhage K29.50 ; Uncontrolled type 2 diabetes mellitus with hyperglycemia, without long-term current use of insulin E11.65 ; Alternating constipation and diarrhea R19.8 and Chronic obstructive pulmonary disease, unspecified COPD type J44.9 [facility] [id number] [place] [address] 07994- 2391 Jan, [facility] [id number] [place] [address] 21944- 1798 Jan, Leukocytosis D72.829 [facility] [id number] [place] [address] 06272- 2367 Jan, Mood disorder F39 [facility] [id number] [place] [address] 17249- 6871 Dec, Bipolar disorder, unspecified F31.9 [facility] [id number] [place] [address] 59026- 1134 Dec, [facility] [address], [place] [address] Dec, Acute gastritis without bleeding K29.00 [facility] [address], [place] [address]- 2246 Dec, Leukocytosis D72.829 [facility] [address], [place] [address]- 3831 Dec, [facility] [id number] [place] [address] 97904- 9113 Dec, Dental examination Z01.20 [facility] [id number] [place] [address] 55814- 5925 Dec, [facility] [id number] [place] [address] 01621- 3242 Dec, Leukocytosis D72.829 [facility] [id number] [place] [address] 88246- 9776 Dec, Uncontrolled type 2 diabetes mellitus with hyperglycemia, without long-term current use of insulin E11.65 [facility] [address] [place] [address] 01662- 5492 Nov, Dental examination Z01.20 [facility] [address], [place] [address]- 4179 Nov, [address] [id number] [place] [address] 92186- 8328 Nov, Major depressive disorder, recurrent episode, moderate F33.1 [facility] [address], [place] [address]- 6421 Nov, Leukocytosis D72.829 [facility] [address], [place] [address]- 2500 05 Nov, 2016 Mood disorder F39 [facility] [address], [place] [address]- 8867 Nov, Other osteoarthritis of spine, cervical region M47.892 and Uncontrolled type 2 diabetes mellitus with hyperglycemia, without long-term current use of insulin E11.65 [facility] [id number] [place] [address] 71598- 5802 Nov, Leukocytosis D72.829 and Elevated serum glucose R73.9 [facility] [id number] [place] [address] 17083- 5655 October, Elevated serum glucose R73.9 [facility] [id number] [place] [address] 66396- 3421 October, Mood disorder F39 [facility] [id number] [place] [address] 64358- 9577 Sep, Major depressive disorder, recurrent episode, moderate F33.1 [facility] [id number] [place] [address] 13929- 8646 Sep, Mood disorder F39 [facility] [id number] [place] [address] 29546- 1753 Aug, [facility] [id number] [place] [address] 59330- 2004 Jul, Major depressive disorder, recurrent episode, moderate F33.1 [facility] [address] [place] [address] 78316- 3541 Jul, Mood disorder F39 [facility] [id number] [place] [address] 74053- 3756 Jul, [facility] [id number] [place] [address] 69897- 6245 Jul, History of NH (myocardial infarction) I25.2 ; Hyperlipidemia E78.5 ; Prediabetes R73.09 ; Chronic obstructive pulmonary disease, unspecified COPD type J44.9 and Tobacco use Z72.0 [facility] [address] [place] [address] 57540- 8435 Jun, [facility] [id number] [place] [address] 76855- 2431 Jun, Mood disorder F39 [facility] [address] [place] [address] 07222- 4809 Jun, [facility] [id number] [place] [address] 32123- 3027 May, Major depressive disorder, recurrent episode, moderate F33.1 and Primary insomnia F51.01 [facility] [id number] [place] [address] 61471- 7417 May, Mood disorder F39 [facility] [id number] [place] [address] 54359- 8586 Apr, [facility] [id number] [place] [address] 54152- 2050 Apr, Mood disorder F39 [facility] [id number] [place] [address] 53386- 6224 Apr, [facility] [id number] [place] [address] 20233- 3191 Apr, [facility] [id number] [place] [address] 08002- 0909 Apr, Chronic obstructive pulmonary disease, unspecified COPD type J44.9 and Non-seasonal allergic rhinitis due to other allergic trigger J30.89 [facility] [id number] [place] [address] 61426- 9868 Apr, Mood disorder F39 [facility] [id number] [place] [address] 26532- 3503 Apr, Major depressive disorder, recurrent episode, moderate F33.1 and PTSD (post-traumatic stress disorder) F43.10 [facility] [id number] [place] [address] 97759- 6457 07 Apr, 2016 [facility] [id number] [place] [address] 65835- 6444 Apr, [facility] [id number] [place] [address] 11572- 2253 Apr, Chest pain, unspecified type R07.9 ; Chronic obstructive pulmonary disease, unspecified COPD type J44.9 ; Hyperlipidemia, unspecified hyperlipidemia type E78.5 and Tobacco use Z72.0 [facility] [id number] [place] [address] 16085- 1266 Mar, Mood disorder F39 [facility] [id number] [place] [address] 48804- 4658 Mar, Mood disorder F39 [facility] [id number] [place] [address] 56393- 1192 Mar, Other osteoarthritis of spine, cervical region M47.892 [facility] [id number] [place] [address] 94796- 8438 Mar, Tear of right rotator cuff, unspecified tear extent M75.101 [facility] [id number] [place] [address] 15993- 6435 Mar, [facility] [id number] [place] [address] 08342- 6321 Mar, Bipolar II disorder F31.81 [facility] [id number] [place] [address] 47179- 5891 Mar, [facility] [id number] [place] [address] 10426- 9587 Feb, Impingement syndrome of right shoulder M75.41 ; Tear of right rotator cuff, unspecified tear extent M75.101 and Loose body in right elbow M24.021 [facility] [id number] [place] [address] 10106- 9193 Jan, [facility] [id number] [place] [address] 47635- 0583 Jan, [facility] [id number] [place] [address] 46353- 2600 Jan, Prediabetes R73.09 ; Other chronic pain G89.29 and Pain in right shoulder M25.511 [facility] [id number] [place] [address] 25901- 5475 Dec, [facility] [address] 72281- 8779 Dec, Heartburn R12 and Chest discomfort R07.89 [facility] [address] 69763- 6298 Dec, Impingement syndrome of right shoulder M75.41 and 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, 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 [facility] [address] 67071- 1833 Nov, [facility] [address] 61766- 1054 Nov, Leukocytosis D72.829 [facility] [address] 14303- 2577 Nov, [facility] [id number] [place] [address] 72144- 9597 Nov, Enlarged lymph node R59.9 ; Chronic obstructive pulmonary disease, unspecified COPD type J44.9 ; Low back pain M54.5 ; Neuropathy G62.9 and Closed nondisplaced fracture of sternal end of right clavicle, sequela S42.017S [facility] [id number] [place] [address] 21804- 9586 October, [facility] [id number] [place] [address] 45155- 6436 October, [facility] [id number] [place] [address] 17629- 6696 Sep, [facility] [id number] [place] [address] 29241- 1734 Aug, Double vision H53.2 ; Occipital headache R51 ; Chronic obstructive pulmonary disease, unspecified COPD type J44.9 and Gastroesophageal reflux disease, esophagitis presence not specified K21.9 [facility] [id number] [place] [address] 12540- 0369 Aug, [facility] [id number] [place] [address] 65475- 5556 Jul, Enlarged lymph node in neck R59.0 [facility] [address] 05903- 4474 Jul, [facility] [address] 45843- 5436 Jul, Chronic obstructive pulmonary disease, unspecified COPD type J44.9 ; Tobacco use Z72.0 ; Leukocytosis D72.829 ; Hyperlipidemia E78.5 and Neck abscess L02.11 [facility] [address] 08853- 2288 Jun, Shortness of breath R06.02 [facility] [address] 65643- 7613 May, Leukocytosis D72.829 and Shortness of breath R06.02 [facility] [address] 34928- 8538 May, Low back pain M54.5 ; Hyperlipidemia E78.5 ; Leukocytosis D72.829 ; Other osteoarthritis of spine, cervical region M47.892 and Shortness of breath R06.02 [facility] [id number] [place] [address] 22581- 2428 Feb, Chest pain 786.50 ; Tobacco use 305.1 ; Back pain 724.5 and Hyperlipemia 272.4 [facility] [id number] [place] [address] 24722- 7515 Jan, [id number] [place] [address] 07593- 3235 Jan, Chronic low back pain 724.2 and Degenerative arthritis of cervical spine 721.[address] [place] [address] 94182- 5366 Jan, Chronic low back pain 724.2 and Neck pain 723.[address] 70889- 8020 Dec, Chronic low back pain 724.2 and Neck pain 723.[address] 86551- 9046 Nov, Chest pain 786.50 ; Dyspnea 786.09 ; Tobacco use 305.1 and Back pain 724.[address] 92029- 6388 Nov, [address] 50355- 1248 Nov, Disability examination V68.01 and Muscle pain 729.[address] 97355- 3557 October, History of NH (myocardial infarction) 412 ; Hyperlipidemia LDL goal < 100 272.4 ; Leukocytosis 288.60 and Glucose intolerance (pre-diabetes ) 790.[address] 62854- 9534 October, Chest pain 786.50 ; Chronic low back pain 724.2 ; History of NH (myocardial infarction) 412 and Neuropathy 355.[address] 56292- 2412 October, Chronic low back pain 724.2 ; Chest pain 786.50 ; History of NH (myocardial infarction) 412 and Neuropathy 355.9 IMMUNIZATIONS No Known Immunizations SOCIAL HISTORY Never Assessed REASON FOR VISIT Lab results PLAN OF CARE VITAL SIGNS MEDICATIONS Unknown [...]
--- OUTSIDE RECORDS SUMMARY | 2018-04-03 14:41 | XMS REPORT ---
Author Author KINJAL DORIS 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 Name Role Phone DORIS LAYTON Unavailable PROBLEMS Type Condition ICD9-CM Code QEA27-FL Code Onset Dates Condition Status SNOMED Code Problem Enlarged lymph node R59.9 Active 56942411 Problem Hyperlipidemia, unspecified hyperlipidemia type E78.5 Active 05685319 Problem Tear of right rotator cuff, unspecified tear extent M75.101 Active 086382073 Problem Other chronic pain G89.29 Active 25798164 Problem Internal hemorrhoids K64.8 Active 72764079 Problem Nocturnal hypoxia G47.34 Active 966195994 Problem Panlobular emphysema J43.1 Active 7588297 Problem Hyperplastic colonic polyp, unspecified part of colon K63.5 Active 314219865 Problem Non-seasonal allergic rhinitis due to other allergic trigger J30.89 Active 20517857 Problem Mood disorder F39 Active 59440223 Problem Bipolar disorder, unspecified F31.9 Active 71333154 Problem Uncontrolled type 2 diabetes mellitus with hyperglycemia, without long -term current use of insulin E11.65 Active 034358895 Problem GERD with esophagitis K21.0 Active 774502570 Problem Other osteoarthritis of spine, cervical region M47.892 Active 793595468 Problem Hiatal hernia K44.9 Active 82333744 Problem External hemorrhoids K64.4 Active 11384563 Problem Leukocytosis D72.829 Active 397112773 Problem Hyperlipidemia E78.5 Active 77053454 Problem History of MT (myocardial infarction) I25.2 Active 229584190 Problem Neuropathy G62.9 Active 180019640 Problem Other chronic gastritis without hemorrhage K29.50 Active 6469877 Problem Low back pain M54.5 Active 542088743 Problem Tobacco use Z72.0 Active 163810771 ALLERGIES No Information ENCOUNTERS Encounter Location Date Diagnosis [facility] [id number] [address] Jun, [facility] [address] [address] 6[address] Jan, [facility] [address] [address] [address] Dec, Bipolar disorder, unspecified F31.9 [facility] [id number] [place] [address] 80759- 3696 Dec, [facility] [id number] [place] [address] 96468- 2410 Dec, [facility] [id number] [place] [address] 22201- 1692 Dec, [facility] [id number] [place] [address] 72158- 9575 Dec, Mood disorder F39 [facility] [id number] [place] [address] 17933- 7992 Nov, Bipolar disorder, unspecified F31.9 [facility] [address] [address] 6434 Nov, [facility] [id number] [place] [address] 79110- 7292 Nov, Pain in left knee M25.562 ; Other chronic pain G89.29 ; Hyperlipidemia E78.5 ; Leukocytosis D72.829 ; Other osteoarthritis of spine, cervical region M47.892 ; Tobacco use Z72.0 and Uncontrolled type 2 diabetes mellitus with hyperglycemia, without long-term current use of insulin E11.65 [facility] [address] [address] 0167 Nov, [facility] [id number] [place] [address] 444057- 6692 Nov, [facility] [address] [address] 0292 October, [facility] [id number] [address] 6488 October, Low back pain M54.5 [facility] [id number] [place] [address] 13333- 9601 Sep, [facility] [id number] [place] [address] 67040- 8686 Sep, [facility] [id number] [place] [address] 21791- 3125 Sep, Leukocytosis D72.829 [facility] [id number] [place] [address] 37165- 5881 Sep, [facility] [id number] [place] [address] 53846- 8554 Sep, [facility] [id number] [place] [address] 62954- 9829 Sep, [facility] [id number] [place] [address] 96070- 7982 Aug, Low back pain M54.5 [facility] [id number] [place] [address] 62272- 1777 Aug, Bipolar disorder, unspecified F31.9 [facility] [id number] [place] [address] 80649- 6191 Aug, [facility] [id number] [place] [address] 52468- 7191 Aug, [facility] [id number] [place] [address] 36102- 3768 Aug, Uncontrolled type 2 diabetes mellitus with hyperglycemia, without long-term current use of insulin E11.65 ; Non-healing surgical wound, initial encounter T81.89XA ; Cellulitis of abdominal wall L03.311 ; Hyperlipidemia E78.5 ; Chronic obstructive pulmonary disease, unspecified COPD type J44.9 and Tobacco use Z72.0 [facility] [id number] [place] [address] 74248- 2239 Aug, [facility] [address] [address]- 5092 Jul, [facility] [address] 4216 Jul, [facility] [address] [address]- 3249 Jul, Type 2 diabetes mellitus 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, 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 [facility] [address] [address] 8913 Jun, Bipolar disorder, unspecified F31.9 [facility] [id number] [address]- 6292 Jun, [facility] [address] [address]- 1772 Jun, Bipolar disorder, unspecified F31.9 [facility] [address] [address]- 5379 Jun, Mood disorder F39 [facility] [id number] [place] [address] 81091- 0479 Jun, [facility] [address] [address]- 6381 May, Fissure in skin of foot R23.4 ; Callus of foot L84 and Type 2 diabetes mellitus 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, 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 [facility] [address] [address] 3480 May, Mood disorder F39 [facility] [address] [address] Apr, [facility] [address] [address] Apr, Cough R05 and Tobacco use Z72.0 [facility] [id number] [place] [address] 03530- 2654 Apr, Cough R05 and Tobacco use Z72.0 [facility] [id number] [place] [address] 78879- 5836 Apr, Mood disorder F39 [facility] [id number] [place] [address] 47989- 3795 Apr, Low back pain M54.5 [facility] [id number] [place] [address] 87647- 1107 Apr, Uncontrolled type 2 diabetes mellitus with hyperglycemia, without long-term current use of insulin E11.65 [facility] [id number] [place] [address] 12475- 0684 Apr, Uncontrolled type 2 diabetes mellitus with hyperglycemia, without long-term current use of insulin E11.65 [facility] [id number] [place] [address] 60846- 4786 Mar, Bipolar disorder, unspecified F31.9 [facility] [id number] [place] [address] 87268- 3765 Mar, [facility] [id number] [place] [address] 26984- 1699 Mar, Bipolar disorder, unspecified F31.9 [facility] [id number] [place] [address] 71828- 4891 Mar, Mood disorder F39 [facility] [id number] [place] [address] 85092- 8294 Feb, [facility] [id number] [place] [address] 71591- 9063 Feb, [facility] [id number] [place] [address] 69823- 2175 Feb, [facility] [id number] [place] [address] 22529- 5671 Feb, Bipolar disorder, unspecified F31.9 [facility] [id number] [place] [address] 78011- 3921 08 Feb, 2017 Uncontrolled type 2 diabetes mellitus with hyperglycemia, without long-term current use of insulin E11.65 ; Encounter for immunization Z23 ; Vasovagal syncope R55 and Low back pain M54.5 [facility] [id number] [place] [address] 40014- 7376 Jan, Bipolar disorder, unspecified F31.9 [facility] [address] 29807- 8799 Jan, [facility] [address] 38668- 0719 Jan, Fatigue, unspecified type R53.83 ; Nocturnal hypoxia G47.34 ; Leukocytosis D72.829 ; Other chronic gastritis without hemorrhage K29.50 ; Uncontrolled type 2 diabetes mellitus with hyperglycemia, without long-term current use of insulin E11.65 ; Alternating constipation and diarrhea R19.8 and Chronic obstructive pulmonary disease, unspecified COPD type J44.9 [facility] [address] 51454- 7007 Jan, [facility] [address] 36533- 9198 Jan, Leukocytosis D72.829 [facility] [id number] [place] [address] 88827- 6961 Jan, Mood disorder F39 [facility] [id number] [place] [address] 44301- 1034 Dec, Bipolar disorder, unspecified F31.9 [facility] [id number] [place] [address] 16759- 8353 Dec, [facility] [id number] [place] [address] 33421 -6688 Dec, Acute gastritis without bleeding K29.00 [facility] [address] 01140- 2072 Dec, Leukocytosis D72.829 [facility] [address] [address]- 5595 Dec, [facility] [id number] [place] [address] 22146- 5000 Dec, Dental examination Z01.20 [facility] [id number] [place] [address] 75614- 2506 Dec, [facility] [id number] [place] [address] 57242- 0347 Dec, Leukocytosis D72.829 [facility] [id number] [place] [address] 19563- 2323 Dec, Uncontrolled type 2 diabetes mellitus with hyperglycemia, without long-term current use of insulin E11.65 [facility] [id number] [place] [address] 60521- 4439 Nov, Dental examination Z01.20 [facility] [id number] [place] [address] 59627- 5237 Nov, [facility] [id number] [place] [address] 40832- 5872 Nov, Major depressive disorder, recurrent episode, moderate F33.1 [facility] [id number] [place] [address] 97390- 3587 Nov, Leukocytosis D72.829 [facility] [id number] [place] [address] 08582- 0873 Nov, Mood disorder F39 [facility] [id number] [place] [address] 77723- 8728 Nov, Other osteoarthritis of spine, cervical region M47.892 and Uncontrolled type 2 diabetes mellitus with hyperglycemia, without long-term current use of insulin E11.65 [facility] [address] [address]- 2904 Nov, Leukocytosis D72.829 and Elevated serum glucose R73.9 [facility] [address] [address]- 2671 October, Elevated serum glucose R73.9 [facility] [address] [address]- 6759 October, Mood disorder F39 [facility] [address], [place] [address]- 5085 Sep, Major depressive disorder, recurrent episode, moderate F33.1 [facility] [address] [address]- 4529 Sep, Mood disorder F39 [facility] [id number] [place] [address] 66666- 0050 Aug, [facility] [id number] [place] [address] 76320- 0755 Jul, Major depressive disorder, recurrent episode, moderate F33.1 [facility] [address] [address]- 7753 Jul, Mood disorder F39 [facility] [id number] [place] [address] 49658- 8620 Jul, [facility] [address] [address]- 5703 Jul, History of MT (myocardial infarction) I25.2 ; Hyperlipidemia E78.5 ; Prediabetes R73.09 ; Chronic obstructive pulmonary disease, unspecified COPD type J44.9 and Tobacco use Z72.0 [facility] [address] [address]- 6805 Jun, [facility] [address] [address]- 6653 Jun, Mood disorder F39 [facility] [address], [place] [address]- 0472 Jun, [facility] [id number] [place] [address] 33522- 5079 May, Major depressive disorder, recurrent episode, moderate F33.1 and Primary insomnia F51.01 [facility] [id number] [place] [address] 20239- 7412 May, Mood disorder F39 [facility] [id number] [place] [address] 43352- 0157 Apr, [facility] [id number] [place] [address] 05430- 7579 Apr, Mood disorder F39 [facility] [id number] [place] [address] 58323- 9930 Apr, [facility] [id number] [place] [address] 18919- 2524 Apr, [facility] [id number] [place] [address] 90319- 6643 Apr, Chronic obstructive pulmonary disease, unspecified COPD type J44.9 and Non-seasonal allergic rhinitis due to other allergic trigger J30.89 [facility] [id number] [place] [address] 54994- 7502 Apr, Mood disorder F39 [facility] [id number] [place] [address] 00244- 3486 Apr, Major depressive disorder, recurrent episode, moderate F33.1 and PTSD (post-traumatic stress disorder) F43.10 [facility] [id number] [place] [address] 98799- 0796 Apr, [facility] [id number] [place] [address] 67315- 8510 Apr, [facility] [id number] [place] [address] 03827- 3443 04 Apr, 2016 Chest pain, unspecified type R07.9 ; Chronic obstructive pulmonary disease, unspecified COPD type J44.9 ; Hyperlipidemia, unspecified hyperlipidemia type E78.5 and Tobacco use Z72.0 [facility] [id number] [place] [address] 74677- 3289 Mar, Mood disorder F39 [facility] [id number] [place] [address] 90267- 9228 Mar, Mood disorder F39 [facility] [id number] [place] [address] 51894- 9406 Mar, Other osteoarthritis of spine, cervical region M47.892 [facility] [id number] [place] [address] 35698- 6349 Mar, Tear of right rotator cuff, unspecified tear extent M75.101 [facility] [id number] [place] [address] 72156- 7238 Mar, [facility] [id number] [place] [address] 79400- 9745 Mar, Bipolar II disorder F31.81 [facility] [id number] [place] [address] 78348- 7270 Mar, [facility] [id number] [place] [address] 30034- 0681 Feb, Impingement syndrome of right shoulder M75.41 ; Tear of right rotator cuff, unspecified tear extent M75.101 and Loose body in right elbow M24.021 [facility] [address], [place] [address]- 4814 Jan, [facility] [id number] [place] [address] 87721- 5275 Jan, [facility] [id number] [place] [address] 10874- 8638 Jan, Prediabetes R73.09 ; Other chronic pain G89.29 and Pain in right shoulder M25.511 [facility] [id number] [place] [address] 61451- 2281 Dec, [facility] [id number] [place] [address] 09082- 0161 Dec, Heartburn R12 and Chest discomfort R07.89 [facility] [id number] [place] [address] 20959- 5314 Dec, Impingement syndrome of right shoulder M75.41 and 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, 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 [facility] [id number] [place] [address] 25235- 3675 Nov, [facility] [address] 84455- 3151 Nov, Leukocytosis D72.829 [facility] [address] 38960- 2196 Nov, [facility] [id number] [place] [address] 92259- 4971 Nov, Enlarged lymph node R59.9 ; Chronic obstructive pulmonary disease, unspecified COPD type J44.9 ; Low back pain M54.5 ; Neuropathy G62.9 and Closed nondisplaced fracture of sternal end of right clavicle, sequela S42.017S [facility] [address] 71785- 0616 October, [facility] [id number] [place] [address] 93702- 2589 October, [facility] [id number] [place] [address] 23243- 4381 Sep, [facility] [id number] [place] [address] 39594- 9152 Aug, Double vision H53.2 ; Occipital headache R51 ; Chronic obstructive pulmonary disease, unspecified COPD type J44.9 and Gastroesophageal reflux disease, esophagitis presence not specified K21.9 [facility] [id number] [place] [address] 86925- 3817 Aug, [facility] [address] 57739- 9977 Jul, Enlarged lymph node in neck R59.0 [facility] [id number] [place] [address] 20118- 3348 Jul, [facility] [address] 76975- 9717 10 Jul, 2015 Chronic obstructive pulmonary disease, unspecified COPD type J44.9 ; Tobacco use Z72.0 ; Leukocytosis D72.829 ; Hyperlipidemia E78.5 and Neck abscess L02.11 [facility] [address] 69978- 0852 Jun, Shortness of breath R06.02 [facility] [address] 75424- 6002 May, Leukocytosis D72.829 and Shortness of breath R06.[address] 50240- 7581 May, Low back pain M54.5 ; Hyperlipidemia E78.5 ; Leukocytosis D72.829 ; Other osteoarthritis of spine, cervical region M47.892 and Shortness of breath R06.02 [facility] [address] 50541- 6313 Feb, Chest pain 786.50 ; Tobacco use 305.1 ; Back pain 724.5 and Hyperlipemia 272.4 [place] [id number] [place] [address] 58870- 5235 Jan, [address] 43661- 9069 Jan, Chronic low back pain 724.2 and Degenerative arthritis of cervical spine 721.[address] 24211- 0091 Jan, Chronic low back pain 724.2 and Neck pain 723.[address] 10039- 7035 Dec, Chronic low back pain 724.2 and Neck pain 723.1 [place] [id number] [place] [address] 15466- 9333 Nov, Chest pain 786.50 ; Dyspnea 786.09 ; Tobacco use 305.1 and Back pain 724.[address] 75386- 3056 Nov, [address] 11125- 3118 Nov, Disability examination V68.01 and Muscle pain 729.[address] 653432- 4301 October, History of MT (myocardial infarction) 412 ; Hyperlipidemia LDL goal < 100 272.4 ; Leukocytosis 288.60 and Glucose intolerance (pre-diabetes ) 790.[address] 59255- 0475 October, Chest pain 786.50 ; Chronic low back pain 724.2 ; History of MT (myocardial infarction) 412 and Neuropathy 355.[address] 04355- 4791 October, Chronic low back pain 724.2 ; Chest pain 786.50 ; History of MT (myocardial infarction) 412 and Neuropathy 355.9 IMMUNIZATIONS No Known Immunizations SOCIAL HISTORY Never Assessed [facility] V[facility] VITAL SIGNS Height 68 in 2017-09-18 Blood pressure systolic 130 mmHg 2017-09-18 Blood pressure diastolic 72 mmHg 2017-09-18 MEDICATIONS Unknown Medications RESULTS No Results PROCEDURES [...]
--- OUTSIDE RECORDS SUMMARY | 2018-04-03 14:41 | XMS REPORT ---
Author Author KINJAL DORIS [facility] Address [facility] [place] [address] Care Team Providers Care Insurance Customer Service Specialist Name Role Phone DORIS LAYTON Unavailable PROBLEMS Type Condition ICD9-CM Code KDF29-TM Code Onset Dates Condition Status SNOMED Code Problem Enlarged lymph node R59.9 Active 77245959 Problem Hyperlipidemia, unspecified hyperlipidemia type E78.5 Active 75696670 Problem Tear of right rotator cuff, unspecified tear extent M75.101 Active 134875138 Problem Other chronic pain G89.29 Active 60508790 Problem Internal hemorrhoids K64.8 Active 59214169 Problem Nocturnal hypoxia G47.34 Active 353211001 Problem Panlobular emphysema J43.1 Active 6248351 Problem Hyperplastic colonic polyp, unspecified part of colon K63.5 Active 781508695 Problem Non-seasonal allergic rhinitis due to other allergic trigger J30.89 Active 90555777 Problem Mood disorder F39 Active 21397859 Problem Bipolar disorder, unspecified F31.9 Active 99805345 Problem Uncontrolled type 2 diabetes mellitus with hyperglycemia, without long -term current use of insulin E11.65 Active 313143568 Problem GERD with esophagitis K21.0 Active 053985476 Problem Other osteoarthritis of spine, cervical region M47.892 Active 971947323 Problem Hiatal hernia K44.9 Active 80715836 Problem External hemorrhoids K64.4 Active 01517843 Problem Leukocytosis D72.829 Active 858317125 Problem Hyperlipidemia E78.5 Active 04182363 Problem History of MS (myocardial infarction) I25.2 Active 811307484 Problem Neuropathy G62.9 Active 976316647 Problem Other chronic gastritis without hemorrhage K29.50 Active 3428915 Problem Low back pain M54.5 Active 089197771 Problem Tobacco use Z72.0 Active 846317129 ALLERGIES No Information ENCOUNTERS Encounter Location Date Diagnosis [facility] [id number] [id number] Jun, [facility] [address] [address] Feb, [facility] [address] [address] Jan, Mood disorder F39 [facility] [address] [address] Jan, [facility] [id number] [place] [address] [id number]- 7953 Dec, Bipolar disorder, unspecified F31.9 [facility] [id number] [place] [address] 65356- 8781 Dec, [facility] [id number] [place] [address] 50182- 3698 Dec, [facility] [id number] [place] [address] 49657- 3327 Dec, [facility] [address], [place] [address] 3[address] Dec, Mood disorder F39 [facility] [id number] [place] [address] 45366- 5414 Nov, Bipolar disorder, unspecified F31.9 [facility] [address], [place] [address] 69[address] Nov, [facility] [address] [place] [address] [id number]- 8385 Nov, Pain in left knee M25.562 ; Other chronic pain G89.29 ; Hyperlipidemia E78.5 ; Leukocytosis D72.829 ; Other osteoarthritis of spine, cervical region M47.892 ; Tobacco use Z72.0 and Uncontrolled type 2 diabetes mellitus with hyperglycemia, without long-term current use of insulin E11.65 [facility] [address], [place] [address] 75[address] Nov, [facility] [address], [place] [address] Nov, [facility] [address], [place] [address] 65[address] October, [facility] [address] [address] October, Low back pain M54.5 [facility] [address], [place] [address] 115[address] Sep, [facility] [address] [place] [address] Sep, [facility] [address], [place] [address] 59[address] Sep, Leukocytosis D72.829 [facility] [address], [place] [address] 7[address] Sep, [facility] [address], [place] [address] 7566 Sep, [facility] [address], [place] [address] 95[address] Sep, [facility] [address], [place] [address] 4440 Aug, Low back pain M54.5 [facility] [address], [place] [address] 56[address] Aug, Bipolar disorder, unspecified F31.9 [facility] [address], [place] [address] 45[address] Aug, [facility] [address], [place] [address] 6746 Aug, [facility] [id number] [address] Aug, Uncontrolled type 2 diabetes mellitus with hyperglycemia, without long-term current use of insulin E11.65 ; Non-healing surgical wound, initial encounter T81.89XA ; Cellulitis of abdominal wall L03.311 ; Hyperlipidemia E78.5 ; Chronic obstructive pulmonary disease, unspecified COPD type J44.9 and Tobacco use Z72.0 [facility] [id number] [place] [address] 53039- 0423 Aug, [facility] [id number] [place] [address] 52662- 8924 Jul, [facility] [address] [address]- [address] Jul, [place] [address] [address]- 4865 Jul, Type 2 diabetes mellitus 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, unspecified emt 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 insulin use status E11.40 [place] [id number] [place] [address] 91618- 8406 Jun, Bipolar disorder, unspecified F31.9 [facility] [id number] [place] [address] 10587- 1118 Jun, [facility] [id number] [place] [address] 63388- 0347 Jun, Bipolar disorder, unspecified F31.9 [facility] [id number] [place] [address] 81597- 6894 Jun, Mood disorder F39 [facility] [id number] [place] [address] 53538- 0946 Jun, [facility] [id number] [place] [address] 23062- 5707 May, Fissure in skin of foot R23.4 ; Callus of foot L84 and Type 2 diabetes mellitus 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, unspecified emt 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 insulin use status E11.40 [facility] [id number] [place] [address] 93359- 0595 May, Mood disorder F39 [facility] [address] 25446- 6514 Apr, [facility] [address], [place] [address] 5684 Apr, Cough R05 and Tobacco use Z72.0 [facility] [id number] [place] [address] 11995- 2307 Apr, Cough R05 and Tobacco use Z72.0 [facility] [id number] [place] [address] 92451- 3012 Apr, Mood disorder F39 [facility] [id number] [place] [address] 08252- 6532 Apr, Low back pain M54.5 [facility] [id number] [place] [address] 25258- 2285 Apr, Uncontrolled type 2 diabetes mellitus with hyperglycemia, without long-term current use of insulin E11.65 [place] [id number] [place] [address] 03136- 8072 Apr, Uncontrolled type 2 diabetes mellitus with hyperglycemia, without long-term current use of insulin E11.65 [place] [id number] [place] [address] 03888- 8714 Mar, Bipolar disorder, unspecified F31.9 [facility] [address], [place] [address] 5926 Mar, [facility] [id number] [place] [address] 14524- 1652 Mar, Bipolar disorder, unspecified F31.9 [facility] [id number] [place] [address] 93452- 6553 Mar, Mood disorder F39 [facility] [id number] [place] [address] 120850- 5921 Feb, [facility] [id number] [place] [address] 87579- 5452 Feb, [facility] [id number] [place] [address] 77937- 3804 Feb, [facility] [id number] [place] [address] 02260- 9017 Feb, Bipolar disorder, unspecified F31.9 [facility] [id number] [place] [address] 27242- 3796 Feb, Uncontrolled type 2 diabetes mellitus with hyperglycemia, without long-term current use of insulin E11.65 ; Encounter for immunization Z23 ; Vasovagal syncope R55 and Low back pain M54.5 [place] [id number] [place] [address] 58956- 6626 Jan, Bipolar disorder, unspecified F31.9 [place] [id number] [place] [address] 10936- 1997 Jan, [place] [address] [address]- 4587 Jan, Fatigue, unspecified type R53.83 ; Nocturnal hypoxia G47.34 ; Leukocytosis D72.829 ; Other chronic gastritis without hemorrhage K29.50 ; Uncontrolled type 2 diabetes mellitus with hyperglycemia, without long-term current use of insulin E11.65 ; Alternating constipation and diarrhea R19.8 and Chronic obstructive pulmonary disease, unspecified COPD type J44.9 [place] [id number] [place] [address] 50116- 9293 Jan, [place] [id number] [place] [address] 77385- 8696 Jan, Leukocytosis D72.829 [place] [id number] [place] [address] 95086- 6286 Jan, Mood disorder F39 [place] [id number] [place] [address] 66329- 8986 Dec, Bipolar disorder, unspecified F31.9 [facility] [id number] [place] [address] 00494- 5025 Dec, [facility] [address], [place] [address] Dec, Acute gastritis without bleeding K29.00 [facility] [address], [place] [address]- 5586 Dec, Leukocytosis D72.829 [facility] [address], [place] [address]- 8458 Dec, [facility] [address] [place] [address] 56137- 5852 Dec, Dental examination Z01.20 [facility] [id number] [place] [address] 30723- 6755 Dec, [facility] [id number] [place] [address] 99083- 6769 Dec, Leukocytosis D72.829 [place] [id number] [place] [address] 88069- 6046 Dec, Uncontrolled type 2 diabetes mellitus with hyperglycemia, without long-term current use of insulin E11.65 [place] [id number] [place] [address] 04222- 5158 Nov, Dental examination Z01.20 [facility] [address], [place] [address]- 4043 Nov, [place] [id number] [place] [address] 49792- 9233 Nov, Major depressive disorder, recurrent episode, moderate F33.1 [facility] [address], [place] [address]- 1875 Nov, Leukocytosis D72.829 [facility] [address], [place] [address]- 1614 05 Nov, 2016 Mood disorder F39 [facility] [address], [place] [address]- 5738 Nov, Other osteoarthritis of spine, cervical region M47.892 and Uncontrolled type 2 diabetes mellitus with hyperglycemia, without long-term current use of insulin E11.65 [place] [id number] [place] [address] 19965- 1350 Nov, Leukocytosis D72.829 and Elevated serum glucose R73.9 [place] [id number] [place] [address] 06106- 4007 October, Elevated serum glucose R73.9 [place] [id number] [place] [address] 61341- 8765 October, Mood disorder F39 [place] [id number] [place] [address] 00460- 9110 Sep, Major depressive disorder, recurrent episode, moderate F33.1 [place] [id number] [place] [address] 59211- 0958 Sep, Mood disorder F39 [place] [id number] [place] [address] 96994- 3266 Aug, [place] [id number] [place] [address] 15218- 1423 Jul, Major depressive disorder, recurrent episode, moderate F33.1 [place] [id number] [place] [address] 77362- 4192 Jul, Mood disorder F39 [place] [id number] [place] [address] 08222- 1673 Jul, [place] [id number] [place] [address] 10662- 9363 Jul, History of MS (myocardial infarction) I25.2 ; Hyperlipidemia E78.5 ; Prediabetes R73.09 ; Chronic obstructive pulmonary disease, unspecified COPD type J44.9 and Tobacco use Z72.0 [place] [id number] [place] [address] 60135- 9437 Jun, [place] [id number] [place] [address] 01604- 1221 Jun, Mood disorder F39 [facility] [id number] [place] [address] 32832- 1306 Jun, [facility] [id number] [place] [address] 13779- 0309 May, Major depressive disorder, recurrent episode, moderate F33.1 and Primary insomnia F51.01 [facility] [id number] [place] [address] 35055- 1573 May, Mood disorder F39 [facility] [id number] [place] [address] 19241- 2725 Apr, [facility] [id number] [place] [address] 66871- 0172 Apr, Mood disorder F39 [facility] [id number] [place] [address] 51399- 7006 Apr, [facility] [id number] [place] [address] 20192- 2876 Apr, [facility] [id number] [place] [address] 25774- 8964 Apr, Chronic obstructive pulmonary disease, unspecified COPD type J44.9 and Non-seasonal allergic rhinitis due to other allergic trigger J30.89 [facility] [id number] [place] [address] 03659- 8172 Apr, Mood disorder F39 [facility] [id number] [place] [address] 98829- 8053 Apr, Major depressive disorder, recurrent episode, moderate F33.1 and PTSD (post-traumatic stress disorder) F43.10 [facility] [id number] [place] [address] 90676- 9625 07 Apr, 2016 [facility] [id number] [place] [address] 11237- 6438 Apr, [facility] [id number] [place] [address] 40034- 3907 Apr, Chest pain, unspecified type R07.9 ; Chronic obstructive pulmonary disease, unspecified COPD type J44.9 ; Hyperlipidemia, unspecified hyperlipidemia type E78.5 and Tobacco use Z72.0 [facility] [id number] [place] [address] 22777- 1068 Mar, Mood disorder F39 [facility] [id number] [place] [address] 55421- 0312 Mar, Mood disorder F39 [place] [id number] [place] [address] 59768- 7091 Mar, Other osteoarthritis of spine, cervical region M47.892 [place] [id number] [place] [address] 35003- 6739 Mar, Tear of right rotator cuff, unspecified tear extent M75.101 [place] [id number] [place] [address] 71971- 5059 Mar, [place] [id number] [place] [address] 11016- 3526 Mar, Bipolar II disorder F31.81 [place] [id number] [place] [address] 16812- 8144 Mar, [place] [id number] [place] [address] 70948- 0231 Feb, Impingement syndrome of right shoulder M75.41 ; Tear of right rotator cuff, unspecified tear extent M75.101 and Loose body in right elbow M24.021 [place] [id number] [place] [address] 29661- 5318 Jan, [place] [id number] [place] [address] 80219- 1449 Jan, [place] [id number] [place] [address] 49114- 2038 Jan, Prediabetes R73.09 ; Other chronic pain G89.29 and Pain in right shoulder M25.511 [place] [id number] [place] [address] 17079- 3843 Dec, [place] [address] 83004- 6932 Dec, Heartburn R12 and Chest discomfort R07.89 [place] [address] 51000- 9777 Dec, Impingement syndrome of right shoulder M75.41 and 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, 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 [place] [address] 96256- 2806 Nov, [place] [address] 51594- 6339 Nov, Leukocytosis D72.829 [place] [address] 48722- 0603 Nov, [place] [id number] [place] [address] 21124- 9207 Nov, Enlarged lymph node R59.9 ; Chronic obstructive pulmonary disease, unspecified COPD type J44.9 ; Low back pain M54.5 ; Neuropathy G62.9 and Closed nondisplaced fracture of sternal end of right clavicle, sequela S42.017S [place] [id number] [place] [address] 56420- 2813 October, [place] [id number] [place] [address] 08938- 5767 October, [place] [id number] [place] [address] 01069- 4862 Sep, [place] [id number] [place] [address] 04656- 1844 Aug, Double vision H53.2 ; Occipital headache R51 ; Chronic obstructive pulmonary disease, unspecified COPD type J44.9 and Gastroesophageal reflux disease, esophagitis presence not specified K21.9 [place] [id number] [place] [address] 14692- 6264 Aug, [place] [id number] [place] [address] 74129- 7642 Jul, Enlarged lymph node in neck R59.0 [place] [address] 46106- 5969 Jul, [place] [address] 38832- 8474 Jul, Chronic obstructive pulmonary disease, unspecified COPD type J44.9 ; Tobacco use Z72.0 ; Leukocytosis D72.829 ; Hyperlipidemia E78.5 and Neck abscess L02.11 [place] [address] 84516- 7844 Jun, Shortness of breath R06.02 [place] [address] 39252- 3033 May, Leukocytosis D72.829 and Shortness of breath R06.02 [place] [address] 76583- 5055 May, Low back pain M54.5 ; Hyperlipidemia E78.5 ; Leukocytosis D72.829 ; Other osteoarthritis of spine, cervical region M47.892 and Shortness of breath R06.02 [place] [id number] [place] [address] 45586- 9557 Feb, Chest pain 786.50 ; Tobacco use 305.1 ; Back pain 724.5 and Hyperlipemia 272.4 [place] [id number] [place] [address] 65488- 8614 Jan, [id number] [place] [address] 23186- 0722 Jan, Chronic low back pain 724.2 and Degenerative arthritis of cervical spine 721.[address] [place] [address] 20795- 8522 Jan, Chronic low back pain 724.2 and Neck pain 723.[address] 63193- 2622 Dec, Chronic low back pain 724.2 and Neck pain 723.[address] 18158- 1397 Nov, Chest pain 786.50 ; Dyspnea 786.09 ; Tobacco use 305.1 and Back pain 724.[address] 64322- 3699 Nov, [address] 05217- 0031 Nov, Disability examination V68.01 and Muscle pain 729.[address] 03993- 3111 October, History of MS (myocardial infarction) 412 ; Hyperlipidemia LDL goal < 100 272.4 ; Leukocytosis 288.60 and Glucose intolerance (pre-diabetes ) 790.[address] 99032- 2037 October, Chest pain 786.50 ; Chronic low back pain 724.2 ; History of MS (myocardial infarction) 412 and Neuropathy 355.[address] 27082- 3345 October, Chronic low back pain 724.2 ; Chest pain 786.50 ; History of MS (myocardial infarction) 412 and Neuropathy 355.9 IMMUNIZATIONS No Known Immunizations SOCIAL HISTORY Never Assessed REASON FOR VISIT medication, Requesting refill on baclofen PLAN OF CARE VITAL SIGNS MEDICATIONS Medication Instructions Dosage Frequency Start Date End Date Duration Status Baclofen 10 mg Orally once daily PRN 1 tablet with food or milk as needed Aug, Active RESULTS No Results PROCEDURES No Known [...]
--- OUTSIDE RECORDS SUMMARY | 2018-04-03 14:42 | XMS REPORT ---
Author Author KINJAL DORIS [facility] Address [facility] [place] [address] Care Team Providers Care Physician Liaison Name Role Phone DORIS LAYTON Unavailable PROBLEMS Type Condition ICD9-CM Code DSP73-BU Code Onset Dates Condition Status SNOMED Code Problem Enlarged lymph node R59.9 Active 41284661 Problem Hyperlipidemia, unspecified hyperlipidemia type E78.5 Active 16810008 Problem Tear of right rotator cuff, unspecified tear extent M75.101 Active 779112939 Problem Other chronic pain G89.29 Active 73814701 Problem Internal hemorrhoids K64.8 Active 85337244 Problem Nocturnal hypoxia G47.34 Active 174365132 Problem Panlobular emphysema J43.1 Active 7368487 Problem Hyperplastic colonic polyp, unspecified part of colon K63.5 Active 992957947 Problem Non-seasonal allergic rhinitis due to other allergic trigger J30.89 Active 14250412 Problem Mood disorder F39 Active 17655284 Problem Bipolar disorder, unspecified F31.9 Active 43498769 Problem Uncontrolled type 2 diabetes mellitus with hyperglycemia, without long -term current use of insulin E11.65 Active 564926954 Problem GERD with esophagitis K21.0 Active 629758152 Problem Other osteoarthritis of spine, cervical region M47.892 Active 112865705 Problem Hiatal hernia K44.9 Active 02499518 Problem External hemorrhoids K64.4 Active 69704291 Problem Leukocytosis D72.829 Active 444900644 Problem Hyperlipidemia E78.5 Active 50305267 Problem History of MA (myocardial infarction) I25.2 Active 568168178 Problem Neuropathy G62.9 Active 341162731 Problem Other chronic gastritis without hemorrhage K29.50 Active 6785454 Problem Low back pain M54.5 Active 610146627 Problem Tobacco use Z72.0 Active 307191609 ALLERGIES No Information ENCOUNTERS Encounter Location Date Diagnosis [facility] [id number], [place] [address] Jun, [facility] [address], [place] [address] Jan, [facility] [address] [address] Dec, Bipolar disorder, unspecified F31.9 [facility] [id number] [place] [address] 28496- 5797 Dec, [facility] [id number] [place] [address] 80323- 0977 Dec, [facility] [id number] [place] [address] 85557- 7060 Dec, [facility] [id number] [place] [address] 32632- 7555 Dec, Mood disorder F39 [facility] [id number] [place] [address] 40873- 7995 Nov, Bipolar disorder, unspecified F31.9 [facility] [address], [place] [address] 3185 Nov, [facility] [id number] [place] [address] 71272- 0475 Nov, Pain in left knee M25.562 ; Other chronic pain G89.29 ; Hyperlipidemia E78.5 ; Leukocytosis D72.829 ; Other osteoarthritis of spine, cervical region M47.892 ; Tobacco use Z72.0 and Uncontrolled type 2 diabetes mellitus with hyperglycemia, without long-term current use of insulin E11.65 [facility] [address], [place] [address] 5066 Nov, [facility] [id number] [place] [address] 263358- 0527 Nov, [facility] [address], [place] [address] 6476 October, [facility] [id number], [place] [address] 7357 October, Low back pain M54.5 [facility] [id number] [place] [address] 64597- 6645 Sep, [facility] [id number] [place] [address] 12766- 9081 Sep, [facility] [id number] [place] [address] 95902- 4183 Sep, Leukocytosis D72.829 [facility] [id number] [place] [address] 60040- 6614 Sep, [facility] [id number] [place] [address] 41822- 7476 Sep, [facility] [id number] [place] [address] 61946- 8336 Sep, [facility] [id number] [place] [address] 23756- 5983 Aug, Low back pain M54.5 [facility] [id number] [place] [address] 66975- 8142 Aug, Bipolar disorder, unspecified F31.9 [facility] [id number] [place] [address] 95637- 9617 Aug, [facility] [id number] [place] [address] 30065- 9326 Aug, [facility] [id number] [place] [address] 67040- 2563 Aug, Uncontrolled type 2 diabetes mellitus with hyperglycemia, without long-term current use of insulin E11.65 ; Non-healing surgical wound, initial encounter T81.89XA ; Cellulitis of abdominal wall L03.311 ; Hyperlipidemia E78.5 ; Chronic obstructive pulmonary disease, unspecified COPD type J44.9 and Tobacco use Z72.0 [facility] [id number] [place] [address] 25452- 8798 Aug, [facility] [address], [place] [address] 9218 Jul, [facility] [address] [address] Jul, [facility] [address], [place] [address] 4757 Jul, Type 2 diabetes mellitus 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, 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 [facility] [address], [place] [address] 9852 Jun, Bipolar disorder, unspecified F31.9 [facility] [id number], [place] [address] 2388 Jun, [facility] [address], [place] [address]- 3820 Jun, Bipolar disorder, unspecified F31.9 [facility] [address], [place] [address]- 4575 Jun, Mood disorder F39 [facility] [id number] [place] [address] 08997- 1719 Jun, [facility] [address], [place] [address]- 5091 May, Fissure in skin of foot R23.4 ; Callus of foot L84 and Type 2 diabetes mellitus 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, 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 [facility] [address], [place] [address] 5244 May, Mood disorder F39 [facility] [id number] [address] [address] Apr, [facility] [address] [address] Apr, Cough R05 and Tobacco use Z72.0 [facility] [id number] [place] [address] 97284- 8788 Apr, Cough R05 and Tobacco use Z72.0 [facility] [id number] [place] [address] 07317- 4065 Apr, Mood disorder F39 [facility] [id number] [place] [address] 10983- 3414 Apr, Low back pain M54.5 [facility] [id number] [place] [address] 05785- 3213 Apr, Uncontrolled type 2 diabetes mellitus with hyperglycemia, without long-term current use of insulin E11.65 [facility] [id number] [place] [address] 44919- 2665 Apr, Uncontrolled type 2 diabetes mellitus with hyperglycemia, without long-term current use of insulin E11.65 [facility] [id number] [place] [address] 02104- 2751 Mar, Bipolar disorder, unspecified F31.9 [facility] [id number] [place] [address] 96558- 1539 Mar, [facility] [id number] [place] [address] 22534- 4526 Mar, Bipolar disorder, unspecified F31.9 [facility] [id number] [place] [address] 20999- 1704 Mar, Mood disorder F39 [facility] [id number] [place] [address] 85812- 3949 Feb, [facility] [id number] [place] [address] 68857- 9924 Feb, [facility] [id number] [place] [address] 12289- 5016 Feb, [facility] [id number] [place] [address] 50909- 6117 Feb, Bipolar disorder, unspecified F31.9 [facility] [id number] [place] [address] 11146- 7527 08 Feb, 2017 Uncontrolled type 2 diabetes mellitus with hyperglycemia, without long-term current use of insulin E11.65 ; Encounter for immunization Z23 ; Vasovagal syncope R55 and Low back pain M54.5 [facility] [id number] [place] [address] 01373- 2087 Jan, Bipolar disorder, unspecified F31.9 [address] [address] 09761- 5901 Jan, [address] [address] 01361- 1322 Jan, Fatigue, unspecified type R53.83 ; Nocturnal hypoxia G47.34 ; Leukocytosis D72.829 ; Other chronic gastritis without hemorrhage K29.50 ; Uncontrolled type 2 diabetes mellitus with hyperglycemia, without long-term current use of insulin E11.65 ; Alternating constipation and diarrhea R19.8 and Chronic obstructive pulmonary disease, unspecified COPD type J44.9 [address] 99867- 1588 Jan, [address] [address] 08418- 1969 Jan, Leukocytosis D72.829 [address] [facility] [id number] [place] [address] 32749- 2253 Jan, Mood disorder F39 [address] [id number] [place] [address] 46480- 6158 Dec, Bipolar disorder, unspecified F31.9 [address] [facility] [id number] [place] [address] 96989- 1904 Dec, [facility] [id number] [place] [address] 11192 -1137 Dec, Acute gastritis without bleeding K29.00 [address] 48251- 0879 Dec, Leukocytosis D72.829 [address], [place] [address]- 1245 Dec, [address] [id number] [place] [address] 76518- 5727 Dec, Dental examination Z01.20 [facility] [id number] [place] [address] 15429- 6588 Dec, [address] [id number] [place] [address] 53043- 9663 Dec, Leukocytosis D72.829 [address] [id number] [place] [address] 59861- 4538 Dec, Uncontrolled type 2 diabetes mellitus with hyperglycemia, without long-term current use of insulin E11.65 [address] [place] [id number] [place] [address] 91198- 4667 Nov, Dental examination Z01.20 [address] [place] [id number] [place] [address] 63690- 5833 Nov, [address] [id number] [place] [address] 17289- 9752 Nov, Major depressive disorder, recurrent episode, moderate F33.1 [address] [id number] [place] [address] 50661- 0586 Nov, Leukocytosis D72.829 [address] [place] [id number] [place] [address] 58232- 4725 Nov, Mood disorder F39 [id number] [place] [address] 74407- 4199 Nov, Other osteoarthritis of spine, cervical region M47.892 and Uncontrolled type 2 diabetes mellitus with hyperglycemia, without long-term current use of insulin E11.65 [address] [place], [place] [address]- 9739 Nov, Leukocytosis D72.829 and Elevated serum glucose R73.9 [facility] [address], [place] [address]- 5428 October, Elevated serum glucose R73.9 [facility] [address], [place] [address]- 1474 October, Mood disorder F39 [facility] [address], [place] [address]- 5917 Sep, Major depressive disorder, recurrent episode, moderate F33.1 [facility] [address], [place] [address]- 1004 Sep, Mood disorder F39 [facility] [id number] [place] [address] 01531- 6109 Aug, [facility] [id number] [place] [address] 23054- 8423 Jul, Major depressive disorder, recurrent episode, moderate F33.1 [facility] [address], [place] [address]- 7829 Jul, Mood disorder F39 [facility] [id number] [place] [address] 94002- 4555 Jul, [facility] [address], [place] [address]- 3474 Jul, History of MA (myocardial infarction) I25.2 ; Hyperlipidemia E78.5 ; Prediabetes R73.09 ; Chronic obstructive pulmonary disease, unspecified COPD type J44.9 and Tobacco use Z72.0 [facility] [address], [place] [address]- 1530 Jun, [facility] [address], [place] [address]- 8960 Jun, Mood disorder F39 [facility] [address], [place] [address]- 8828 Jun, [facility] [id number] [place] [address] 49530- 6690 May, Major depressive disorder, recurrent episode, moderate F33.1 and Primary insomnia F51.01 [facility] [id number] [place] [address] 37583- 0389 May, Mood disorder F39 [facility] [id number] [place] [address] 58161- 3486 Apr, [facility] [id number] [place] [address] 76835- 7913 Apr, Mood disorder F39 [facility] [id number] [place] [address] 12402- 5662 Apr, [place] [id number] [place] [address] 36674- 5692 Apr, [address] [id number] [place] [address] 15316- 1928 Apr, Chronic obstructive pulmonary disease, unspecified COPD type J44.9 and Non-seasonal allergic rhinitis due to other allergic trigger J30.89 [facility] [id number] [place] [address] 20426- 5250 Apr, Mood disorder F39 [address] [id number] [place] [address] 81765- 6099 Apr, Major depressive disorder, recurrent episode, moderate F33.1 and PTSD (post-traumatic stress disorder) F43.10 [id number] [place] [address] 84314- 3455 Apr, [facility] [id number] [place] [address] 04084- 0194 Apr, [facility] [id number] [place] [address] 16569- 5291 04 Apr, 2016 Chest pain, unspecified type R07.9 ; Chronic obstructive pulmonary disease, unspecified COPD type J44.9 ; Hyperlipidemia, unspecified hyperlipidemia type E78.5 and Tobacco use Z72.0 [address] [id number] [place] [address] 45144- 8043 Mar, Mood disorder F39 [facility] [id number] [place] [address] 17161- 6493 Mar, Mood disorder F39 [facility] [id number] [place] [address] 72301- 3546 Mar, Other osteoarthritis of spine, cervical region M47.892 [facility] [id number] [place] [address] 17181- 2374 Mar, Tear of right rotator cuff, unspecified tear extent M75.101 [facility] [id number] [place] [address] 51010- 8370 Mar, [facility] [id number] [place] [address] 59260- 8121 Mar, Bipolar II disorder F31.81 [address] [id number] [place] [address] 58065- 9404 Mar, [facility] [id number] [place] [address] 76125- 3825 Feb, Impingement syndrome of right shoulder M75.41 ; Tear of right rotator cuff, unspecified tear extent M75.101 and Loose body in right elbow M24.021 [facility] [address], [place] [address]- 9002 Jan, [facility] [id number] [place] [address] 12126- 5367 Jan, [facility] [address] [place] [address] 00956- 9178 Jan, Prediabetes R73.09 ; Other chronic pain G89.29 and Pain in right shoulder M25.511 [facility] [id number] [place] [address] 74616- 1318 Dec, [facility] [id number] [place] [address] 21256- 2844 Dec, Heartburn R12 and Chest discomfort R07.89 [place] [id number] [place] [address] 99736- 1505 Dec, Impingement syndrome of right shoulder M75.41 and 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, 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 [place] [id number] [place] [address] 31076- 2159 Nov, [place] [address] 30325- 7614 Nov, Leukocytosis D72.829 [place] [address] 42002- 9590 Nov, [facility] [id number] [place] [address] 48851- 8862 Nov, Enlarged lymph node R59.9 ; Chronic obstructive pulmonary disease, unspecified COPD type J44.9 ; Low back pain M54.5 ; Neuropathy G62.9 and Closed nondisplaced fracture of sternal end of right clavicle, sequela S42.017S [place] [address] 88316- 3929 October, [facility] [id number] [place] [address] 03776- 7326 October, [facility] [id number] [place] [address] 62103- 5861 Sep, [facility] [id number] [place] [address] 63437- 0101 Aug, Double vision H53.2 ; Occipital headache R51 ; Chronic obstructive pulmonary disease, unspecified COPD type J44.9 and Gastroesophageal reflux disease, esophagitis presence not specified K21.9 [facility] [id number] [place] [address] 62323- 6203 Aug, [facility] [facility] [address] 73055- 8490 Jul, Enlarged lymph node in neck R59.0 [facility] [id number] [place] [address] 31786- 7876 Jul, [facility] [address] 82896- 2658 10 Jul, 2015 Chronic obstructive pulmonary disease, unspecified COPD type J44.9 ; Tobacco use Z72.0 ; Leukocytosis D72.829 ; Hyperlipidemia E78.5 and Neck abscess L02.11 [place] [address] 88564- 0983 Jun, Shortness of breath R06.02 [facility] [facility] [address] 10046- 8950 May, Leukocytosis D72.829 and Shortness of breath R06.[address] 19176- 9108 May, Low back pain M54.5 ; Hyperlipidemia E78.5 ; Leukocytosis D72.829 ; Other osteoarthritis of spine, cervical region M47.892 and Shortness of breath R06.02 [place] [address] 75935- 9547 Feb, Chest pain 786.50 ; Tobacco use 305.1 ; Back pain 724.5 and Hyperlipemia 272.4 [id number] [place] [address] 63867- 4927 Jan, [address] 51766- 3159 Jan, Chronic low back pain 724.2 and Degenerative arthritis of cervical spine 721.[address] 24622- 5917 Jan, Chronic low back pain 724.2 and Neck pain 723.[address] 68544- 3406 Dec, Chronic low back pain 724.2 and Neck pain 723.1 [id number] [place] [address] 39642- 5346 Nov, Chest pain 786.50 ; Dyspnea 786.09 ; Tobacco use 305.1 and Back pain 724.[address] 53821- 7921 Nov, [address] 57809- 8914 Nov, Disability examination V68.01 and Muscle pain 729.[address] 46353- 9063 October, History of MA (myocardial infarction) 412 ; Hyperlipidemia LDL goal < 100 272.4 ; Leukocytosis 288.60 and Glucose intolerance (pre-diabetes ) 790.[address] 59189- 1342 October, Chest pain 786.50 ; Chronic low back pain 724.2 ; History of MA (myocardial infarction) 412 and Neuropathy 355.[address] 43514- 9245 October, Chronic low back pain 724.2 ; Chest pain 786.50 ; History of MA (myocardial infarction) 412 and Neuropathy 355.9 IMMUNIZATIONS No Known Immunizations SOCIAL HISTORY Never Assessed REASON FOR VISIT Blood pressure check-ELOY Becker, Monitoring BP while taking baclofen. Currently taking once daily in the am. PLAN OF CARE VITAL SIGNS Height 68 in 2017-09-25 Blood pressure systolic 118 mmHg 2017-09-25 Blood pressure diastolic 78 mmHg 2017-09-25 MEDICATIONS Unknown Medications RESULTS No Results PROCEDURES [...]
--- OUTSIDE RECORDS SUMMARY | 2018-04-03 14:42 | XMS REPORT ---
Author Author KINJAL DORIS [facility] Address [facility] [place] [address] Care Team Providers Care Right Of Way Agent Name Role Phone DORIS LAYTON Unavailable PROBLEMS Type Condition ICD9-CM Code [id number] Code Onset Dates Condition Status SNOMED Code Problem Enlarged lymph node R59.9 Active 79785351 Problem Hyperlipidemia, unspecified hyperlipidemia type E78.5 Active 31022584 Problem Tear of right rotator cuff, unspecified tear extent M75.101 Active 671531370 Problem Other chronic pain G89.29 Active 76376719 Problem Internal hemorrhoids K64.8 Active 19336360 Problem Nocturnal hypoxia G47.34 Active 279136317 Problem Panlobular emphysema J43.1 Active 5101517 Problem Hyperplastic colonic polyp, unspecified part of colon K63.5 Active 865224527 Problem Non-seasonal allergic rhinitis due to other allergic trigger J30.89 Active 52646182 Problem Mood disorder F39 Active 95049328 Problem Bipolar disorder, unspecified F31.9 Active 27341022 Problem Uncontrolled type 2 diabetes mellitus with hyperglycemia, without long -term current use of insulin E11.65 Active 277576971 Problem GERD with esophagitis K21.0 Active 648743633 Problem Other osteoarthritis of spine, cervical region M47.892 Active 193626762 Problem Hiatal hernia K44.9 Active 80461608 Problem External hemorrhoids K64.4 Active 07906419 Problem Leukocytosis D72.829 Active 984030319 Problem Hyperlipidemia E78.5 Active 99642542 Problem History of RI (myocardial infarction) I25.2 Active 050542811 Problem Neuropathy G62.9 Active 961274044 Problem Other chronic gastritis without hemorrhage K29.50 Active 8887995 Problem Low back pain M54.5 Active 994916763 Problem Tobacco use Z72.0 Active 439860358 ALLERGIES No Information ENCOUNTERS Encounter Location Date Diagnosis [facility] [id number], [place] [address] Jun, [facility] [address], [place] [address] Jan, [facility] [address] [address] Dec, Bipolar disorder, unspecified F31.9 [facility] [id number] [place] [address] 36634- 5641 Dec, [facility] [id number] [place] [address] 62424- 7121 Dec, [facility] [id number] [place] [address] 12925- 1521 Dec, [facility] [id number] [place] [address] 23122- 6385 Dec, Mood disorder F39 [facility] [id number] [place] [address] 45950- 7649 Nov, Bipolar disorder, unspecified F31.9 [facility] [address], [place] [address] Nov, [facility] [address] [place] [address] 25108- 5916 Nov, Pain in left knee M25.562 ; Other chronic pain G89.29 ; Hyperlipidemia E78.5 ; Leukocytosis D72.829 ; Other osteoarthritis of spine, cervical region M47.892 ; Tobacco use Z72.0 and Uncontrolled type 2 diabetes mellitus with hyperglycemia, without long-term current use of insulin E11.65 [facility] [address], [place] [address] Nov, [facility] [id number] [place] [address] 797889- 4321 Nov, [facility] [address], [place] [address] 0218 October, [facility] [address], [place] [address] 0770 October, Low back pain M54.5 [facility] [id number] [place] [address] 20430- 2174 Sep, [facility] [id number] [place] [address] 09158- 3285 Sep, [facility] [id number] [place] [address] 28597- 5500 Sep, Leukocytosis D72.829 [facility] [id number] [place] [address] 43304- 2191 Sep, [facility] [id number] [place] [address] 64801- 6288 Sep, [facility] [id number] [place] [address] 19837- 7074 Sep, [facility] [id number] [place] [address] 77080- 0072 Aug, Low back pain M54.5 [facility] [id number] [place] [address] 58692- 9856 Aug, Bipolar disorder, unspecified F31.9 [facility] [id number] [place] [address] 81385- 1465 Aug, [facility] [id number] [place] [address] 85214- 1730 Aug, [facility] [address] [place] [address] 23167- 1638 Aug, Uncontrolled type 2 diabetes mellitus with hyperglycemia, without long-term current use of insulin E11.65 ; Non-healing surgical wound, initial encounter T81.89XA ; Cellulitis of abdominal wall L03.311 ; Hyperlipidemia E78.5 ; Chronic obstructive pulmonary disease, unspecified COPD type J44.9 and Tobacco use Z72.0 [facility] [id number] [place] [address] 55093- 0096 Aug, [facility] [address], [place] [address]- 2375 Jul, [facility] [address] [address] [address] Jul, [facility] [address], [place] [address]- 6330 Jul, Type 2 diabetes mellitus 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, unspecified 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 [facility] [address], [place] [address] 4527 Jun, Bipolar disorder, unspecified F31.9 [facility] [id number], [place] [address]- 4977 Jun, [facility] [address], [place] [address]- 4281 Jun, Bipolar disorder, unspecified F31.9 [facility] [address], [place] [address]- 2931 Jun, Mood disorder F39 [facility] [address] [place] [address] 08862- 9857 Jun, [facility] [address], [place] [address]- 8965 May, Fissure in skin of foot R23.4 ; Callus of foot L84 and Type 2 diabetes mellitus 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, unspecified 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 [facility] [address], [place] [address] 8680 May, Mood disorder F39 [facility] [address] [address] 2916 Apr, [facility] [address] [address] [address] Apr, Cough R05 and Tobacco use Z72.0 [facility] [id number] [place] [address] 20720- 0528 Apr, Cough R05 and Tobacco use Z72.0 [facility] [id number] [place] [address] 71788- 5660 Apr, Mood disorder F39 [facility] [id number] [place] [address] 82516- 6833 Apr, Low back pain M54.5 [facility] [id number] [place] [address] 31746- 4027 Apr, Uncontrolled type 2 diabetes mellitus with hyperglycemia, without long-term current use of insulin E11.65 [facility] [id number] [place] [address] 87949- 9937 Apr, Uncontrolled type 2 diabetes mellitus with hyperglycemia, without long-term current use of insulin E11.65 [facility] [id number] [place] [address] 37184- 1932 Mar, Bipolar disorder, unspecified F31.9 [facility] [id number] [place] [address] 17426- 1236 Mar, [facility] [id number] [place] [address] 53617- 2105 Mar, Bipolar disorder, unspecified F31.9 [facility] [id number] [place] [address] 23025- 7611 Mar, Mood disorder F39 [facility] [id number] [place] [address] 71953- 0059 Feb, [facility] [id number] [place] [address] 88402- 1219 Feb, [facility] [id number] [place] [address] 67042- 5052 Feb, [facility] [id number] [place] [address] 18913- 0157 Feb, Bipolar disorder, unspecified F31.9 [facility] [id number] [place] [address] 99249- 7697 08 Feb, 2017 Uncontrolled type 2 diabetes mellitus with hyperglycemia, without long-term current use of insulin E11.65 ; Encounter for immunization Z23 ; Vasovagal syncope R55 and Low back pain M54.5 [facility] [id number] [place] [address] 17284- 4374 Jan, Bipolar disorder, unspecified F31.9 [facility] [facility] [address] [address]- 1689 Jan, [facility] [facility] [address] 68937- 1743 Jan, Fatigue, unspecified type R53.83 ; Nocturnal hypoxia G47.34 ; Leukocytosis D72.829 ; Other chronic gastritis without hemorrhage K29.50 ; Uncontrolled type 2 diabetes mellitus with hyperglycemia, without long-term current use of insulin E11.65 ; Alternating constipation and diarrhea R19.8 and Chronic obstructive pulmonary disease, unspecified COPD type J44.9 [address] [facility] [address] 70291- 9477 Jan, [facility] [facility] [address] 60319- 8345 Jan, Leukocytosis D72.829 [facility] [id number] [place] [address] 42968- 0216 Jan, Mood disorder F39 [facility] [id number] [place] [address] 66486- 7615 Dec, Bipolar disorder, unspecified F31.9 [facility] [id number] [place] [address] 68503- 8344 Dec, [facility] [id number] [place] [address] 10271 -8225 Dec, Acute gastritis without bleeding K29.00 [place] [facility] [address] 25667- 3802 Dec, Leukocytosis D72.829 [facility] [facility] [address], [place] [address]- 6106 Dec, [facility] [id number] [place] [address] 09140- 2785 Dec, Dental examination Z01.20 [facility] [id number] [place] [address] 87597- 6113 Dec, [facility] [id number] [place] [address] 57504- 8120 Dec, Leukocytosis D72.829 [facility] [facility] [id number] [place] [address] 24963- 9135 Dec, Uncontrolled type 2 diabetes mellitus with hyperglycemia, without long-term current use of insulin E11.65 [facility] [facility] [address] [place] [address] 04052- 2918 Nov, Dental examination Z01.20 [facility] [id number] [place] [address] 55220- 3403 Nov, [facility] [id number] [place] [address] 80729- 3666 Nov, Major depressive disorder, recurrent episode, moderate F33.1 [facility] [place] [id number] [place] [address] 21471- 4482 Nov, Leukocytosis D72.829 [address] [place] [id number] [place] [address] 68989- 1214 Nov, Mood disorder F39 [address] [facility] [place] [address] 07920- 6254 Nov, Other osteoarthritis of spine, cervical region M47.892 and Uncontrolled type 2 diabetes mellitus with hyperglycemia, without long-term current use of insulin E11.65 [address] [place], [place] [address]- 6748 Nov, Leukocytosis D72.829 and Elevated serum glucose R73.9 [facility] [address], [place] [address]- 1924 October, Elevated serum glucose R73.9 [facility] [address], [place] [address]- 6503 October, Mood disorder F39 [facility] [address], [place] [address]- 2694 Sep, Major depressive disorder, recurrent episode, moderate F33.1 [facility] [address], [place] [address]- 7652 Sep, Mood disorder F39 [facility] [id number] [place] [address] 01157- 4285 Aug, [facility] [address] [place] [address] 76643- 4400 Jul, Major depressive disorder, recurrent episode, moderate F33.1 [facility] [address], [place] [address]- 2125 Jul, Mood disorder F39 [facility] [address] [place] [address] 97603- 2186 Jul, [facility] [address], [place] [address]- 2543 Jul, History of RI (myocardial infarction) I25.2 ; Hyperlipidemia E78.5 ; Prediabetes R73.09 ; Chronic obstructive pulmonary disease, unspecified COPD type J44.9 and Tobacco use Z72.0 [facility] [address], [place] [address]- 6863 Jun, [facility] [address], [place] [address]- 5321 Jun, Mood disorder F39 [facility] [address], [place] [address]- 9757 Jun, [facility] [address] [place] [address] 91098- 7107 May, Major depressive disorder, recurrent episode, moderate F33.1 and Primary insomnia F51.01 [facility] [address] [place] [address] 90518- 8070 May, Mood disorder F39 [facility] [address] [place] [address] 38653- 3916 Apr, [facility] [id number] [place] [address] 87467- 1214 Apr, Mood disorder F39 [facility] [id number] [place] [address] 50356- 7669 Apr, [facility] [id number] [place] [address] 13744- 4699 Apr, [facility] [id number] [place] [address] 43520- 1547 Apr, Chronic obstructive pulmonary disease, unspecified COPD type J44.9 and Non-seasonal allergic rhinitis due to other allergic trigger J30.89 [facility] [address] [place] [address] 72506- 9560 Apr, Mood disorder F39 [place] [id number] [place] [address] 97042- 5071 Apr, Major depressive disorder, recurrent episode, moderate F33.1 and PTSD (post-traumatic stress disorder) F43.10 [facility] [address] [place] [address] 88396- 2304 Apr, [facility] [address] [place] [address] 54851- 0121 Apr, [facility] [id number] [place] [address] 75149- 4993 04 Apr, 2016 Chest pain, unspecified type R07.9 ; Chronic obstructive pulmonary disease, unspecified COPD type J44.9 ; Hyperlipidemia, unspecified hyperlipidemia type E78.5 and Tobacco use Z72.0 [place] [id number] [place] [address] 12103- 9415 Mar, Mood disorder F39 [facility] [id number] [place] [address] 16133- 1083 Mar, Mood disorder F39 [facility] [address] [place] [address] 40247- 2766 Mar, Other osteoarthritis of spine, cervical region M47.892 [facility] [id number] [place] [address] 38082- 7580 Mar, Tear of right rotator cuff, unspecified tear extent M75.101 [facility] [id number] [place] [address] 19093- 3095 Mar, [facility] [id number] [place] [address] 08101- 6229 Mar, Bipolar II disorder F31.81 [facility] [facility] [id number] [place] [address] 27334- 8965 Mar, [facility] [id number] [place] [address] 03258- 9552 Feb, Impingement syndrome of right shoulder M75.41 ; Tear of right rotator cuff, unspecified tear extent M75.101 and Loose body in right elbow M24.021 [facility] [address], [place] [address]- 3755 Jan, [facility] [id number] [place] [address] 77323- 8219 Jan, [facility] [address] [place] [address] 37249- 0186 Jan, Prediabetes R73.09 ; Other chronic pain G89.29 and Pain in right shoulder M25.511 [facility] [id number] [place] [address] 83921- 9014 Dec, [facility] [id number] [place] [address] 57714- 5757 Dec, Heartburn R12 and Chest discomfort R07.89 [place] [id number] [place] [address] 92377- 8098 Dec, Impingement syndrome of right shoulder M75.41 and 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, 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 [facility] [id number] [place] [address] 66757- 6936 Nov, [place] [address] 99049- 4066 Nov, Leukocytosis D72.829 [place] [address] 77040- 2830 Nov, [facility] [id number] [place] [address] 18200- 3319 Nov, Enlarged lymph node R59.9 ; Chronic obstructive pulmonary disease, unspecified COPD type J44.9 ; Low back pain M54.5 ; Neuropathy G62.9 and Closed nondisplaced fracture of sternal end of right clavicle, sequela S42.017S [facility] [address] 02790- 1386 October, [facility] [id number] [place] [address] 10288- 3215 October, [facility] [id number] [place] [address] 27266- 9585 Sep, [facility] [place] [id number] [place] [address] 74624- 1416 Aug, Double vision H53.2 ; Occipital headache R51 ; Chronic obstructive pulmonary disease, unspecified COPD type J44.9 and Gastroesophageal reflux disease, esophagitis presence not specified K21.9 [facility] [id number] [place] [address] 15829- 9292 Aug, [place] [address] 62827- 5427 Jul, Enlarged lymph node in neck R59.0 [facility] [id number] [place] [address] 45773- 4791 Jul, [facility] [facility] [address] 23805- 3788 10 Jul, 2015 Chronic obstructive pulmonary disease, unspecified COPD type J44.9 ; Tobacco use Z72.0 ; Leukocytosis D72.829 ; Hyperlipidemia E78.5 and Neck abscess L02.11 [place] [address] 89741- 3193 Jun, Shortness of breath R06.02 [place] [address] 07157- 2151 May, Leukocytosis D72.829 and Shortness of breath R06.[address] 74706- 6363 May, Low back pain M54.5 ; Hyperlipidemia E78.5 ; Leukocytosis D72.829 ; Other osteoarthritis of spine, cervical region M47.892 and Shortness of breath R06.02 [place] [address] 77334- 6510 Feb, Chest pain 786.50 ; Tobacco use 305.1 ; Back pain 724.5 and Hyperlipemia 272.4 [id number] [place] [address] 96366- 0555 Jan, [address] 01771- 6096 Jan, Chronic low back pain 724.2 and Degenerative arthritis of cervical spine 721.[address] 65303- 2555 Jan, Chronic low back pain 724.2 and Neck pain 723.[address] 87992- 0128 Dec, Chronic low back pain 724.2 and Neck pain 723.1 [address] [id number] [place] [address] 63478- 3344 Nov, Chest pain 786.50 ; Dyspnea 786.09 ; Tobacco use 305.1 and Back pain 724.[address] 58923- 6865 Nov, [address] 33095- 0422 Nov, Disability examination V68.01 and Muscle pain 729.[address] 15118- 5353 October, History of RI (myocardial infarction) 412 ; Hyperlipidemia LDL goal < 100 272.4 ; Leukocytosis 288.60 and Glucose intolerance (pre-diabetes ) 790.[address] 63682- 1757 October, Chest pain 786.50 ; Chronic low back pain 724.2 ; History of RI (myocardial infarction) 412 and Neuropathy 355.[address] 94200- 6368 October, Chronic low back pain 724.2 ; Chest pain 786.50 ; History of RI (myocardial infarction) 412 and Neuropathy 355.9 IMMUNIZATIONS No Known Immunizations SOCIAL HISTORY Never Assessed REASON FOR VISIT [facility] follow[facility] PLAN OF CARE VITAL SIGNS MEDICATIONS Unknown [...] age 31yr Hospitalization History Sleep Study 2016 Hospitalization History surgeries
--- OUTSIDE RECORDS SUMMARY | 2018-04-03 14:43 | XMS REPORT ---
Author Author KINJAL DORIS [facility] Address [facility] [place] [address] Care Team Providers Care Manager Product Marketing Name Role Phone DORIS LAYTON Unavailable PROBLEMS Type Condition ICD9-CM Code [id number] Code Onset Dates Condition Status SNOMED Code Problem Enlarged lymph node R59.9 Active 08813064 Problem Hyperlipidemia, unspecified hyperlipidemia type E78.5 Active 96497854 Problem Tear of right rotator cuff, unspecified tear extent M75.101 Active 405474732 Problem Other chronic pain G89.29 Active 80183728 Problem Internal hemorrhoids K64.8 Active 24086129 Problem Nocturnal hypoxia G47.34 Active 779631281 Problem Panlobular emphysema J43.1 Active 7816704 Problem Hyperplastic colonic polyp, unspecified part of colon K63.5 Active 192115378 Problem Non-seasonal allergic rhinitis due to other allergic trigger J30.89 Active 36754490 Problem Mood disorder F39 Active 93683603 Problem Bipolar disorder, unspecified F31.9 Active 24810055 Problem Uncontrolled type 2 diabetes mellitus with hyperglycemia, without long -term current use of insulin E11.65 Active 384241025 Problem GERD with esophagitis K21.0 Active 418214805 Problem Other osteoarthritis of spine, cervical region M47.892 Active 769680822 Problem Hiatal hernia K44.9 Active 80407387 Problem External hemorrhoids K64.4 Active 71531008 Problem Leukocytosis D72.829 Active 965375279 Problem Hyperlipidemia E78.5 Active 89533123 Problem History of CT (myocardial infarction) I25.2 Active 363368867 Problem Neuropathy G62.9 Active 902322934 Problem Other chronic gastritis without hemorrhage K29.50 Active 3468610 Problem Low back pain M54.5 Active 824289720 Problem Tobacco use Z72.0 Active 127234760 ALLERGIES No Information ENCOUNTERS Encounter Location Date Diagnosis [facility] [id number], [place] [address] Jun, [facility] [address], [place] [address] 2665 Jan, [facility] [address] [address] [address] Dec, Bipolar disorder, unspecified F31.9 [facility] [id number] [place] [address] 50323- 1164 Dec, [facility] [id number] [place] [address] 73518- 3755 Dec, [facility] [id number] [place] [address] 96015- 4797 Dec, [facility] [id number] [place] [address] 15526- 1081 Dec, Mood disorder F39 [facility] [id number] [place] [address] 36398- 7053 Nov, Bipolar disorder, unspecified F31.9 [facility] [address], [place] [address] 8[address] Nov, [facility] [address] [place] [address] 36444- 5334 Nov, Pain in left knee M25.562 ; Other chronic pain G89.29 ; Hyperlipidemia E78.5 ; Leukocytosis D72.829 ; Other osteoarthritis of spine, cervical region M47.892 ; Tobacco use Z72.0 and Uncontrolled type 2 diabetes mellitus with hyperglycemia, without long-term current use of insulin E11.65 [facility] [address], [place] [address] 1459 Nov, [facility] [id number] [place] [address] 639479- 7231 Nov, [facility] [address], [place] [address] 9410 October, [facility] [address] [address] 5934 October, Low back pain M54.5 [facility] [id number] [place] [address] 71553- 7235 Sep, [facility] [id number] [place] [address] 37044- 9635 Sep, [facility] [id number] [place] [address] 74855- 6414 Sep, Leukocytosis D72.829 [facility] [id number] [place] [address] 41798- 4729 Sep, [facility] [id number] [place] [address] 84394- 0880 Sep, [facility] [id number] [place] [address] 61996- 4126 Sep, [facility] [id number] [place] [address] 61713- 1509 Aug, Low back pain M54.5 [facility] [id number] [place] [address] 09166- 9390 Aug, Bipolar disorder, unspecified F31.9 [facility] [id number] [place] [address] 22429- 0479 Aug, [facility] [id number] [place] [address] 14188- 6327 Aug, [facility] [address] [place] [address] 03279- 5710 Aug, Uncontrolled type 2 diabetes mellitus with hyperglycemia, without long-term current use of insulin E11.65 ; Non-healing surgical wound, initial encounter T81.89XA ; Cellulitis of abdominal wall L03.311 ; Hyperlipidemia E78.5 ; Chronic obstructive pulmonary disease, unspecified COPD type J44.9 and Tobacco use Z72.0 [facility] [id number] [place] [address] 75230- 1074 Aug, [facility] [address], [place] [address] 0450 Jul, [facility] [address] 4166 Jul, [facility] [address], [place] [address] 7717 Jul, Type 2 diabetes mellitus 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, unspecified terminal operator insulin use status E11.40 [facility] [address], [place] [address] 5650 Jun, Bipolar disorder, unspecified F31.9 [facility] [address] [place] [address] 1563 Jun, [facility] [address], [place] [address]- 5710 Jun, Bipolar disorder, unspecified F31.9 [facility] [address], [place] [address]- 1146 Jun, Mood disorder F39 [facility] [address] [place] [address] 20222- 3001 Jun, [facility] [address], [place] [address] 9341 May, Fissure in skin of foot R23.4 ; Callus of foot L84 and Type 2 diabetes mellitus 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, unspecified terminal operator insulin use status E11.40 [facility] [address], [place] [address] 4510 May, Mood disorder F39 [facility] [address] [address] Apr, [facility] [address] [address] Apr, Cough R05 and Tobacco use Z72.0 [facility] [id number] [place] [address] 07401- 9975 Apr, Cough R05 and Tobacco use Z72.0 [facility] [id number] [place] [address] 45989- 2298 Apr, Mood disorder F39 [facility] [id number] [place] [address] 38757- 3225 Apr, Low back pain M54.5 [facility] [id number] [place] [address] 35985- 7387 Apr, Uncontrolled type 2 diabetes mellitus with hyperglycemia, without long-term current use of insulin E11.65 [facility] [id number] [place] [address] 40818- 6312 Apr, Uncontrolled type 2 diabetes mellitus with hyperglycemia, without long-term current use of insulin E11.65 [facility] [id number] [place] [address] 89845- 3807 Mar, Bipolar disorder, unspecified F31.9 [facility] [id number] [place] [address] 49648- 3968 Mar, [facility] [id number] [place] [address] 15070- 1787 Mar, Bipolar disorder, unspecified F31.9 [facility] [id number] [place] [address] 50901- 7396 Mar, Mood disorder F39 [facility] [id number] [place] [address] 86307- 6852 Feb, [facility] [id number] [place] [address] 83370- 7201 Feb, [facility] [id number] [place] [address] 91894- 2357 Feb, [facility] [address] [place] [address] 18189- 0948 Feb, Bipolar disorder, unspecified F31.9 [facility] [id number] [place] [address] 10202- 9784 08 Feb, 2017 Uncontrolled type 2 diabetes mellitus with hyperglycemia, without long-term current use of insulin E11.65 ; Encounter for immunization Z23 ; Vasovagal syncope R55 and Low back pain M54.5 [facility] [id number] [place] [address] 52804- 8355 Jan, Bipolar disorder, unspecified F31.9 [address] 29562- 7484 Jan, [address] 20253- 9888 Jan, Fatigue, unspecified type R53.83 ; Nocturnal hypoxia G47.34 ; Leukocytosis D72.829 ; Other chronic gastritis without hemorrhage K29.50 ; Uncontrolled type 2 diabetes mellitus with hyperglycemia, without long-term current use of insulin E11.65 ; Alternating constipation and diarrhea R19.8 and Chronic obstructive pulmonary disease, unspecified COPD type J44.9 [address] 29717- 1120 Jan, [address] [address] 27192- 1311 Jan, Leukocytosis D72.829 [address] [id number] [place] [address] 19663- 3730 Jan, Mood disorder F39 [address] [id number] [place] [address] 42398- 8418 Dec, Bipolar disorder, unspecified F31.9 [address] [facility] [id number] [place] [address] 37037- 8582 Dec, [facility] [id number] [place] [address] 79855 -5898 Dec, Acute gastritis without bleeding K29.00 [address] [place] [address] 78277- 5362 Dec, Leukocytosis D72.829 [address], [place] [address]- 1988 Dec, [address] [facility] [id number] [place] [address] 97284- 1763 Dec, Dental examination Z01.20 [facility] [id number] [place] [address] 14001- 2716 Dec, [address] [facility] [id number] [place] [address] 68137- 4323 Dec, Leukocytosis D72.829 [address] [id number] [place] [address] 61419- 2500 Dec, Uncontrolled type 2 diabetes mellitus with hyperglycemia, without long-term current use of insulin E11.65 [address] [facility] [address] [place] [address] 71437- 7416 Nov, Dental examination Z01.20 [address] [facility] [id number] [place] [address] 79333- 3905 Nov, [address] [id number] [place] [address] 70482- 7829 Nov, Major depressive disorder, recurrent episode, moderate F33.1 [address] [place] [address] 90035- 1735 Nov, Leukocytosis D72.829 [address] [id number] [place] [address] 40686- 0618 Nov, Mood disorder F39 [address] [place] [address] 14024- 0544 Nov, Other osteoarthritis of spine, cervical region M47.892 and Uncontrolled type 2 diabetes mellitus with hyperglycemia, without long-term current use of insulin E11.65 [address], [place] [address]- 2063 Nov, Leukocytosis D72.829 and Elevated serum glucose R73.9 [facility] [address], [place] [address]- 8250 October, Elevated serum glucose R73.9 [facility] [address], [place] [address]- 7786 October, Mood disorder F39 [facility] [address], [place] [address]- 4643 Sep, Major depressive disorder, recurrent episode, moderate F33.1 [facility] [address], [place] [address]- 2809 Sep, Mood disorder F39 [facility] [address] [place] [address] 08504- 8983 Aug, [facility] [address] [place] [address] 00315- 9170 Jul, Major depressive disorder, recurrent episode, moderate F33.1 [facility] [address], [place] [address]- 3126 Jul, Mood disorder F39 [facility] [address] [place] [address] 38309- 3260 Jul, [facility] [address], [place] [address]- 4846 Jul, History of CT (myocardial infarction) I25.2 ; Hyperlipidemia E78.5 ; Prediabetes R73.09 ; Chronic obstructive pulmonary disease, unspecified COPD type J44.9 and Tobacco use Z72.0 [facility] [address], [place] [address]- 5298 Jun, [facility] [address], [place] [address]- 8955 Jun, Mood disorder F39 [facility] [address], [place] [address]- 5618 Jun, [facility] [address] [place] [address] 41068- 1561 May, Major depressive disorder, recurrent episode, moderate F33.1 and Primary insomnia F51.01 [facility] [address] [place] [address] 86100- 7468 May, Mood disorder F39 [facility] [address] [place] [address] 07696- 5115 Apr, [facility] [id number] [place] [address] 68497- 6898 Apr, Mood disorder F39 [facility] [id number] [place] [address] 60960- 0517 Apr, [facility] [id number] [place] [address] 60264- 0045 Apr, [facility] [id number] [place] [address] 91226- 5104 Apr, Chronic obstructive pulmonary disease, unspecified COPD type J44.9 and Non-seasonal allergic rhinitis due to other allergic trigger J30.89 [facility] [address] [place] [address] 38067- 9588 Apr, Mood disorder F39 [facility] [id number] [place] [address] 03517- 6389 Apr, Major depressive disorder, recurrent episode, moderate F33.1 and PTSD (post-traumatic stress disorder) F43.10 [facility] [facility] [address] [place] [address] 73372- 1082 Apr, [facility] [address] [place] [address] 19677- 7197 Apr, [facility] [id number] [place] [address] 55662- 6465 04 Apr, 2016 Chest pain, unspecified type R07.9 ; Chronic obstructive pulmonary disease, unspecified COPD type J44.9 ; Hyperlipidemia, unspecified hyperlipidemia type E78.5 and Tobacco use Z72.0 [facility] [id number] [place] [address] 62883- 6543 Mar, Mood disorder F39 [facility] [id number] [place] [address] 14298- 6163 Mar, Mood disorder F39 [facility] [address] [place] [address] 15144- 5726 Mar, Other osteoarthritis of spine, cervical region M47.892 [facility] [id number] [place] [address] 71959- 2972 Mar, Tear of right rotator cuff, unspecified tear extent M75.101 [facility] [id number] [place] [address] 09502- 9343 Mar, [facility] [id number] [place] [address] 06469- 0323 Mar, Bipolar II disorder F31.81 [facility] [id number] [place] [address] 76505- 8247 Mar, [facility] [id number] [place] [address] 19303- 6665 Feb, Impingement syndrome of right shoulder M75.41 ; Tear of right rotator cuff, unspecified tear extent M75.101 and Loose body in right elbow M24.021 [facility] [address], [place] [address]- 1666 Jan, [facility] [id number] [place] [address] 13751- 2946 Jan, [facility] [address] [place] [address] 66555- 9449 Jan, Prediabetes R73.09 ; Other chronic pain G89.29 and Pain in right shoulder M25.511 [facility] [id number] [place] [address] 31581- 3335 Dec, [facility] [id number] [place] [address] 18119- 7283 Dec, Heartburn R12 and Chest discomfort R07.89 [facility] [id number] [place] [address] 10884- 0877 Dec, Impingement syndrome of right shoulder M75.41 and 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, 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 [facility] [id number] [place] [address] 93866- 0974 Nov, [facility] [address] 69152- 2516 Nov, Leukocytosis D72.829 [facility] [address] 03883- 6126 Nov, [facility] [id number] [place] [address] 17498- 2885 Nov, Enlarged lymph node R59.9 ; Chronic obstructive pulmonary disease, unspecified COPD type J44.9 ; Low back pain M54.5 ; Neuropathy G62.9 and Closed nondisplaced fracture of sternal end of right clavicle, sequela S42.017S [facility] [address] 77674- 4407 October, [facility] [id number] [place] [address] 44685- 1858 October, [facility] [id number] [place] [address] 93776- 5637 Sep, [facility] [id number] [place] [address] 70205- 3919 Aug, Double vision H53.2 ; Occipital headache R51 ; Chronic obstructive pulmonary disease, unspecified COPD type J44.9 and Gastroesophageal reflux disease, esophagitis presence not specified K21.9 [facility] [id number] [place] [address] 59052- 6535 Aug, [facility] [address] 13042- 1633 Jul, Enlarged lymph node in neck R59.0 [facility] [id number] [place] [address] 34989- 4750 Jul, [facility] [address] 48376- 9613 10 Jul, 2015 Chronic obstructive pulmonary disease, unspecified COPD type J44.9 ; Tobacco use Z72.0 ; Leukocytosis D72.829 ; Hyperlipidemia E78.5 and Neck abscess L02.11 [facility] [address] 72884- 3171 Jun, Shortness of breath R06.02 [facility] [address] 18487- 3028 May, Leukocytosis D72.829 and Shortness of breath R06.[address] 68168- 8303 May, Low back pain M54.5 ; Hyperlipidemia E78.5 ; Leukocytosis D72.829 ; Other osteoarthritis of spine, cervical region M47.892 and Shortness of breath R06.02 [facility] [address] 25053- 9526 Feb, Chest pain 786.50 ; Tobacco use 305.1 ; Back pain 724.5 and Hyperlipemia 272.4 [id number] [place] [address] 93371- 1711 Jan, [address] 47769- 8235 Jan, Chronic low back pain 724.2 and Degenerative arthritis of cervical spine 721.[address] 46190- 6918 Jan, Chronic low back pain 724.2 and Neck pain 723.[address] 25389- 5717 Dec, Chronic low back pain 724.2 and Neck pain 723.1 [address] [id number] [place] [address] 54202- 9460 Nov, Chest pain 786.50 ; Dyspnea 786.09 ; Tobacco use 305.1 and Back pain 724.[address] 27534- 5960 Nov, [address] 55375- 6820 Nov, Disability examination V68.01 and Muscle pain 729.[address] 445347- [address], [address] (myocardial infarction) 412 ; Hyperlipidemia LDL goal < 100 272.4 ; Leukocytosis 288.60 and Glucose intolerance (pre-diabetes ) 790.[address] 77177- 7423 October, Chest pain 786.50 ; Chronic low back pain 724.2 ; History of CT (myocardial infarction) 412 and Neuropathy 355.[address] 64266- 0535 October, Chronic low back pain 724.2 ; Chest pain 786.50 ; History of CT (myocardial infarction) 412 and Neuropathy 355.9 IMMUNIZATIONS No Known Immunizations SOCIAL HISTORY Never Assessed REASON FOR VISIT Blood pressure check -- faustino woods PLAN OF CARE VITAL SIGNS Height 68 in 2017-09-11 Blood pressure systolic 126 mmHg 2017-09-11 Blood pressure diastolic 82 mmHg 2017-09-11 MEDICATIONS Unknown Medications RESULTS No Results PROCEDURES [...] removal on neck Surgical History Heart Cath 2017 Surgical History Colonoscopy-Dr. Pedraza 2016 Surgical History Lipoma removal abdomen- Dr. Ballard 06/2016 Surgical History heart cath/chemical stress test 2017 2017 Hospitalization History hernia repair Hospitalization History stroke at age 31yr Hospitalization History Sleep Study 2017 Hospitalization History surgeries
--- OUTSIDE RECORDS SUMMARY | 2018-04-03 14:43 | XMS REPORT ---
Author Author KINJAL DORIS [facility] Address [facility][note 3][address] [place] [address] Care Team Providers Care Space Technologist Name Role Phone DORIS LAYTON Unavailable PROBLEMS Type Condition ICD9-CM Code ZGA94-CF Code Onset Dates Condition Status SNOMED Code Problem Enlarged lymph node R59.9 Active 74314482 Problem Hyperlipidemia, unspecified hyperlipidemia type E78.5 Active 45519438 Problem Tear of right rotator cuff, unspecified tear extent M75.101 Active 963624319 Problem Other chronic pain G89.29 Active 09753813 Problem Internal hemorrhoids K64.8 Active 61218703 Problem Nocturnal hypoxia G47.34 Active 732182643 Problem Panlobular emphysema J43.1 Active 8889806 Problem Hyperplastic colonic polyp, unspecified part of colon K63.5 Active 353162712 Problem Non-seasonal allergic rhinitis due to other allergic trigger J30.89 Active 76482007 Problem Mood disorder F39 Active 22865982 Problem Bipolar disorder, unspecified F31.9 Active 85252486 Problem Uncontrolled type 2 diabetes mellitus with hyperglycemia, without long -term current use of insulin E11.65 Active 329063114 Problem GERD with esophagitis K21.0 Active 171580296 Problem Other osteoarthritis of spine, cervical region M47.892 Active 937928471 Problem Hiatal hernia K44.9 Active 90999021 Problem External hemorrhoids K64.4 Active 51664857 Problem Leukocytosis D72.829 Active 902360353 Problem Hyperlipidemia E78.5 Active 76971112 Problem History of CT (myocardial infarction) I25.2 Active 549417056 Problem Neuropathy G62.9 Active 930714391 Problem Other chronic gastritis without hemorrhage K29.50 Active 0053521 Problem Low back pain M54.5 Active 510734956 Problem Tobacco use Z72.0 Active 181624804 ALLERGIES No Information ENCOUNTERS Encounter Location Date Diagnosis [facility] [id number], [place] [address] Jun, [facility] [address], [place] [address] Jan, [facility] [address] [address] Dec, Bipolar disorder, unspecified F31.9 [facility] [id number] [place] [address] 64837- 9778 Dec, [facility] [id number] [place] [address] 19621- 1091 Dec, [facility] [id number] [place] [address] 67193- 9165 Dec, [facility] [id number] [place] [address] 76427- 0922 Dec, Mood disorder F39 [facility] [id number] [place] [address] 76835- 3506 Nov, Bipolar disorder, unspecified F31.9 [facility] [address], [place] [address] Nov, [facility] [id number] [place] [address] 46778- 7255 Nov, Pain in left knee M25.562 ; Other chronic pain G89.29 ; Hyperlipidemia E78.5 ; Leukocytosis D72.829 ; Other osteoarthritis of spine, cervical region M47.892 ; Tobacco use Z72.0 and Uncontrolled type 2 diabetes mellitus with hyperglycemia, without long-term current use of insulin E11.65 [facility] [address], [place] [address] 8683 Nov, [facility] [id number] [place] [address] 955401- 6583 Nov, [facility] [address], [place] [address] 7199 October, [facility] [id number], [place] [address] October, Low back pain M54.5 [facility] [id number] [place] [address] 23063- 2888 Sep, [facility] [id number] [place] [address] 99482- 1166 Sep, [facility] [id number] [place] [address] 01690- 4936 Sep, Leukocytosis D72.829 [facility] [id number] [place] [address] 43142- 2817 Sep, [facility] [id number] [place] [address] 02098- 3678 Sep, [facility] [id number] [place] [address] 84079- 6267 Sep, [facility] [id number] [place] [address] 62322- 7474 Aug, Low back pain M54.5 [facility] [id number] [place] [address] 58754- 5338 Aug, Bipolar disorder, unspecified F31.9 [facility] [id number] [place] [address] 08529- 1498 Aug, [facility] [id number] [place] [address] 10638- 7618 Aug, [facility] [id number] [place] [address] 07038- 5792 Aug, Uncontrolled type 2 diabetes mellitus with hyperglycemia, without long-term current use of insulin E11.65 ; Non-healing surgical wound, initial encounter T81.89XA ; Cellulitis of abdominal wall L03.311 ; Hyperlipidemia E78.5 ; Chronic obstructive pulmonary disease, unspecified COPD type J44.9 and Tobacco use Z72.0 [facility] [id number] [place] [address] 75585- 4538 Aug, [facility] [address], [place] [address]- 0285 Jul, [facility] [address] [address] Jul, [facility] [address], [place] [address]- 3133 Jul, Type 2 diabetes mellitus 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, unspecified 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 [facility] [address], [place] [address] 0464 Jun, Bipolar disorder, unspecified F31.9 [facility] [address], [place] [address] 9637 Jun, [facility] [address], [place] [address]- 4345 Jun, Bipolar disorder, unspecified F31.9 [facility] [address], [place] [address] 9988 Jun, Mood disorder F39 [facility] [id number] [place] [address] 65142- 0719 Jun, [facility] [address], [place] [address]- 0401 May, Fissure in skin of foot R23.4 ; Callus of foot L84 and Type 2 diabetes mellitus 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, unspecified 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 [facility] [address], [place] [address] 4121 May, Mood disorder F39 [facility] [address] [address] Apr, [facility] [address] 10[address] Apr, Cough R05 and Tobacco use Z72.0 [facility] [id number] [place] [address] 02443- 9785 Apr, Cough R05 and Tobacco use Z72.0 [facility] [id number] [place] [address] 41225- 6492 Apr, Mood disorder F39 [facility] [id number] [place] [address] 72262- 4023 Apr, Low back pain M54.5 [facility] [id number] [place] [address] 35948- 9030 Apr, Uncontrolled type 2 diabetes mellitus with hyperglycemia, without long-term current use of insulin E11.65 [facility] [id number] [place] [address] 32225- 3195 Apr, Uncontrolled type 2 diabetes mellitus with hyperglycemia, without long-term current use of insulin E11.65 [facility] [id number] [place] [address] 13952- 7359 Mar, Bipolar disorder, unspecified F31.9 [facility] [id number] [place] [address] 36965- 4490 Mar, [facility] [id number] [place] [address] 77483- 3663 Mar, Bipolar disorder, unspecified F31.9 [facility] [id number] [place] [address] 87378- 5604 Mar, Mood disorder F39 [facility] [id number] [place] [address] 01931- 6077 Feb, [facility] [id number] [place] [address] 96841- 3312 Feb, [facility] [id number] [place] [address] 25035- 8378 Feb, [facility] [id number] [place] [address] 27491- 4126 Feb, Bipolar disorder, unspecified F31.9 [facility] [id number] [place] [address] 95311- 4988 08 Feb, 2017 Uncontrolled type 2 diabetes mellitus with hyperglycemia, without long-term current use of insulin E11.65 ; Encounter for immunization Z23 ; Vasovagal syncope R55 and Low back pain M54.5 [facility] [id number] [place] [address] 76758- 0976 Jan, Bipolar disorder, unspecified F31.9 [facility] [address] 79247- 6948 Jan, [facility] [address] 83725- 7025 Jan, Fatigue, unspecified type R53.83 ; Nocturnal hypoxia G47.34 ; Leukocytosis D72.829 ; Other chronic gastritis without hemorrhage K29.50 ; Uncontrolled type 2 diabetes mellitus with hyperglycemia, without long-term current use of insulin E11.65 ; Alternating constipation and diarrhea R19.8 and Chronic obstructive pulmonary disease, unspecified COPD type J44.9 [facility] [address] 49541- 7511 Jan, [facility] [address] 30496- 1992 Jan, Leukocytosis D72.829 [facility] [id number] [place] [address] 22048- 4747 Jan, Mood disorder F39 [facility] [id number] [place] [address] 47084- 7185 Dec, Bipolar disorder, unspecified F31.9 [facility] [id number] [place] [address] 11602- 8905 Dec, [facility] [id number] [place] [address] 02777 -3129 Dec, Acute gastritis without bleeding K29.00 [facility] [address] 08726- 7754 Dec, Leukocytosis D72.829 [facility] [address], [place] [address]- 3345 Dec, [facility] [id number] [place] [address] 42033- 3389 Dec, Dental examination Z01.20 [facility] [id number] [place] [address] 28669- 2131 Dec, [facility] [id number] [place] [address] 81669- 3482 Dec, Leukocytosis D72.829 [facility] [id number] [place] [address] 88825- 2950 Dec, Uncontrolled type 2 diabetes mellitus with hyperglycemia, without long-term current use of insulin E11.65 [facility] [id number] [place] [address] 49200- 0172 Nov, Dental examination Z01.20 [facility] [id number] [place] [address] 39608- 0974 Nov, [facility] [id number] [place] [address] 86463- 9768 Nov, Major depressive disorder, recurrent episode, moderate F33.1 [facility] [id number] [place] [address] 24158- 2747 Nov, Leukocytosis D72.829 [facility] [id number] [place] [address] 26682- 1463 Nov, Mood disorder F39 [facility] [id number] [place] [address] 78514- 7067 Nov, Other osteoarthritis of spine, cervical region M47.892 and Uncontrolled type 2 diabetes mellitus with hyperglycemia, without long-term current use of insulin E11.65 [facility] [address], [place] [address]- 8066 Nov, Leukocytosis D72.829 and Elevated serum glucose R73.9 [facility] [address], [place] [address]- 4190 October, Elevated serum glucose R73.9 [facility] [address], [place] [address]- 1173 October, Mood disorder F39 [facility] [address], [place] [address]- 1592 Sep, Major depressive disorder, recurrent episode, moderate F33.1 [facility] [address], [place] [address]- 1865 Sep, Mood disorder F39 [facility] [id number] [place] [address] 63833- 2153 Aug, [facility] [id number] [place] [address] 94200- 5131 Jul, Major depressive disorder, recurrent episode, moderate F33.1 [facility] [address], [place] [address]- 6163 Jul, Mood disorder F39 [facility] [id number] [place] [address] 46294- 0099 Jul, [facility] [address], [place] [address]- 5055 Jul, [address] (myocardial infarction) I25.2 ; Hyperlipidemia E78.5 ; Prediabetes R73.09 ; Chronic obstructive pulmonary disease, unspecified COPD type J44.9 and Tobacco use Z72.0 [facility] [address], [place] [address]- 0632 Jun, [facility] [address], [place] [address]- 5775 Jun, Mood disorder F39 [facility] [address], [place] [address]- 5224 Jun, [facility] [id number] [place] [address] 47791- 7117 May, Major depressive disorder, recurrent episode, moderate F33.1 and Primary insomnia F51.01 [facility] [id number] [place] [address] 53719- 1416 May, Mood disorder F39 [facility] [id number] [place] [address] 29822- 0726 Apr, [facility] [id number] [place] [address] 52067- 3682 Apr, Mood disorder F39 [facility] [id number] [place] [address] 26447- 1279 Apr, [facility] [id number] [place] [address] 35383- 1662 Apr, [facility] [id number] [place] [address] 58572- 0407 Apr, Chronic obstructive pulmonary disease, unspecified COPD type J44.9 and Non-seasonal allergic rhinitis due to other allergic trigger J30.89 [facility] [id number] [place] [address] 88133- 2461 Apr, Mood disorder F39 [facility] [id number] [place] [address] 19085- 1410 Apr, Major depressive disorder, recurrent episode, moderate F33.1 and PTSD (post-traumatic stress disorder) F43.10 [facility] [id number] [place] [address] 54178- 5947 Apr, [facility] [id number] [place] [address] 40799- 4445 Apr, [facility] [id number] [place] [address] 83524- 2164 04 Apr, 2016 Chest pain, unspecified type R07.9 ; Chronic obstructive pulmonary disease, unspecified COPD type J44.9 ; Hyperlipidemia, unspecified hyperlipidemia type E78.5 and Tobacco use Z72.0 [facility] [id number] [place] [address] 18967- 6734 Mar, Mood disorder F39 [facility] [id number] [place] [address] 41569- 9019 Mar, Mood disorder F39 [facility] [address] [place] [address] 11796- 4866 Mar, Other osteoarthritis of spine, cervical region M47.892 [facility] [id number] [place] [address] 42503- 8114 Mar, Tear of right rotator cuff, unspecified tear extent M75.101 [facility] [id number] [place] [address] 41274- 7751 Mar, [facility] [id number] [place] [address] 90560- 2705 Mar, Bipolar II disorder F31.81 [facility] [id number] [place] [address] 72129- 4439 Mar, [facility] [id number] [place] [address] 45655- 8099 Feb, Impingement syndrome of right shoulder M75.41 ; Tear of right rotator cuff, unspecified tear extent M75.101 and Loose body in right elbow M24.021 [facility] [address], [place] [address]- 0857 Jan, [facility] [id number] [place] [address] 32334- 6627 Jan, [facility] [address] [place] [address] 54971- 3739 Jan, Prediabetes R73.09 ; Other chronic pain G89.29 and Pain in right shoulder M25.511 [facility] [id number] [place] [address] 38459- 9100 Dec, [facility] [id number] [place] [address] 90644- 4102 Dec, Heartburn R12 and Chest discomfort R07.89 [facility] [id number] [place] [address] 04056- 5086 Dec, Impingement syndrome of right shoulder M75.41 and 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, 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 [facility] [id number] [place] [address] 07688- 8786 Nov, [facility] [address] 93630- 0696 Nov, Leukocytosis D72.829 [facility] [address] 96068- 0875 Nov, [facility] [id number] [place] [address] 63266- 9240 Nov, Enlarged lymph node R59.9 ; Chronic obstructive pulmonary disease, unspecified COPD type J44.9 ; Low back pain M54.5 ; Neuropathy G62.9 and Closed nondisplaced fracture of sternal end of right clavicle, sequela S42.017S [facility] [address] 11155- 1837 October, [facility] [id number] [place] [address] 74490- 2582 October, [facility] [id number] [place] [address] 56362- 7578 Sep, [facility] [id number] [place] [address] 58631- 0413 Aug, Double vision H53.2 ; Occipital headache R51 ; Chronic obstructive pulmonary disease, unspecified COPD type J44.9 and Gastroesophageal reflux disease, esophagitis presence not specified K21.9 [facility] [id number] [place] [address] 28632- 9527 Aug, [facility] [address] 61960- 7505 Jul, Enlarged lymph node in neck R59.0 [facility] [id number] [place] [address] 57034- 9193 Jul, [facility] [address] 23385- 5505 10 Jul, 2015 Chronic obstructive pulmonary disease, unspecified COPD type J44.9 ; Tobacco use Z72.0 ; Leukocytosis D72.829 ; Hyperlipidemia E78.5 and Neck abscess L02.11 [facility] [address] 20699- 4457 Jun, Shortness of breath R06.02 [facility] [address] 71448- 2227 May, Leukocytosis D72.829 and Shortness of breath R06.[address] 22608- 3823 May, Low back pain M54.5 ; Hyperlipidemia E78.5 ; Leukocytosis D72.829 ; Other osteoarthritis of spine, cervical region M47.892 and Shortness of breath R06.02 [facility] [address] 90431- 4009 Feb, Chest pain 786.50 ; Tobacco use 305.1 ; Back pain 724.5 and Hyperlipemia 272.4 [id number] [place] [address] 96170- 2142 Jan, [address] 32016- 9273 Jan, Chronic low back pain 724.2 and Degenerative arthritis of cervical spine 721.[address] 48948- 9491 Jan, Chronic low back pain 724.2 and Neck pain 723.[address] 50858- 7994 Dec, Chronic low back pain 724.2 and Neck pain 723.1 [facility] [id number] [place] [address] 56076- 9696 Nov, Chest pain 786.50 ; Dyspnea 786.09 ; Tobacco use 305.1 and Back pain 724.[address] 58090- 1068 Nov, [address] 29867- 3022 Nov, Disability examination V68.01 and Muscle pain 729.[address] 644529- 2[address], [address] (myocardial infarction) 412 ; Hyperlipidemia LDL goal < 100 272.4 ; Leukocytosis 288.60 and Glucose intolerance (pre-diabetes ) 790.[address] 53042- 7826 October, Chest pain 786.50 ; Chronic low back pain 724.2 ; History of CT (myocardial infarction) 412 and Neuropathy 355.[address] 91680- 0663 October, Chronic low back pain 724.2 ; Chest pain 786.50 ; History of CT (myocardial infarction) 412 and Neuropathy 355.9 IMMUNIZATIONS No Known Immunizations SOCIAL HISTORY Never Assessed REASON FOR VISIT Blood pressure check--tcuppettRN PLAN OF CARE VITAL SIGNS Height 68 in 2017-09-04 Blood pressure systolic 132 mmHg 2017-09-04 Blood pressure diastolic 88 mmHg 2017-09-04 MEDICATIONS Unknown Medications RESULTS No Results PROCEDURES [...] Heart Cath 2017 Surgical History Colonoscopy-Dr. Pedraza 2017 Surgical History Lipoma removal abdomen- Dr. Ballard 06/2016 Surgical History heart cath/chemical stress test 2017 2017 Hospitalization History hernia repair Hospitalization History stroke at age 31yr Hospitalization History Sleep Study 2017 Hospitalization History surgeries
--- OUTSIDE RECORDS SUMMARY | 2018-04-03 14:43 | XMS REPORT ---
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 Name Role Phone DORIS LAYTON Unavailable PROBLEMS Type Condition ICD9-CM Code [id number] Code Onset Dates Condition Status SNOMED Code Problem Enlarged lymph node R59.9 Active 36571812 Problem Hyperlipidemia, unspecified hyperlipidemia type E78.5 Active 26379600 Problem Tear of right rotator cuff, unspecified tear extent M75.101 Active 797267628 Problem Other chronic pain G89.29 Active 01859944 Problem Internal hemorrhoids K64.8 Active 28035254 Problem Nocturnal hypoxia G47.34 Active 141678808 Problem Panlobular emphysema J43.1 Active 1033329 Problem Hyperplastic colonic polyp, unspecified part of colon K63.5 Active 285397961 Problem Non-seasonal allergic rhinitis due to other allergic trigger J30.89 Active 41475545 Problem Mood disorder F39 Active 65991652 Problem Bipolar disorder, unspecified F31.9 Active 84889108 Problem Uncontrolled type 2 diabetes mellitus with hyperglycemia, without long -term current use of insulin E11.65 Active 135908463 Problem GERD with esophagitis K21.0 Active 499388189 Problem Other osteoarthritis of spine, cervical region M47.892 Active 185299052 Problem Hiatal hernia K44.9 Active 26208616 Problem External hemorrhoids K64.4 Active 59912522 Problem Leukocytosis D72.829 Active 672088256 Problem Hyperlipidemia E78.5 Active 26160111 Problem History of LA (myocardial infarction) I25.2 Active 871549587 Problem Neuropathy G62.9 Active 659755471 Problem Other chronic gastritis without hemorrhage K29.50 Active 5449632 Problem Low back pain M54.5 Active 201291398 Problem Tobacco use Z72.0 Active 614655730 ALLERGIES No Information ENCOUNTERS Encounter Location Date Diagnosis [facility] [id number] [address] Jun, [facility] [address], [place] [address] Jan, [facility] [address] [address] Dec, Bipolar disorder, unspecified F31.9 [facility] [id number] [place] [address] 99576- 1196 Dec, [facility] [id number] [place] [address] 15403- 4288 Dec, [facility] [id number] [place] [address] 59625- 9020 Dec, [facility] [id number] [place] [address] 55475- 9484 Dec, Mood disorder F39 [facility] [id number] [place] [address] 51129- 0449 Nov, Bipolar disorder, unspecified F31.9 [facility] [address], [place] [address] Nov, [facility] [id number] [place] [address] 31256- 4009 Nov, Pain in left knee M25.562 ; Other chronic pain G89.29 ; Hyperlipidemia E78.5 ; Leukocytosis D72.829 ; Other osteoarthritis of spine, cervical region M47.892 ; Tobacco use Z72.0 and Uncontrolled type 2 diabetes mellitus with hyperglycemia, without long-term current use of insulin E11.65 [facility] [address] [address] Nov, [facility] [id number] [place] [address] 805857- 0826 Nov, [facility] [address], [place] [address] October, [facility] [id number] [address] October, Low back pain M54.5 [facility] [id number] [place] [address] 80669- 8287 Sep, [facility] [id number] [place] [address] 20632- 5770 Sep, [facility] [id number] [place] [address] 95648- 4863 Sep, Leukocytosis D72.829 [facility] [id number] [place] [address] 06294- 7687 Sep, [facility] [id number] [place] [address] 66300- 1762 Sep, [facility] [id number] [place] [address] 57698- 6102 Sep, [facility] [id number] [place] [address] 71152- 4503 Aug, Low back pain M54.5 [facility] [id number] [place] [address] 55767- 1160 Aug, Bipolar disorder, unspecified F31.9 [facility] [id number] [place] [address] 77720- 6023 Aug, [facility] [id number] [place] [address] 88184- 8277 Aug, [facility] [id number] [place] [address] 15264- 6942 Aug, Uncontrolled type 2 diabetes mellitus with hyperglycemia, without long-term current use of insulin E11.65 ; Non-healing surgical wound, initial encounter T81.89XA ; Cellulitis of abdominal wall L03.311 ; Hyperlipidemia E78.5 ; Chronic obstructive pulmonary disease, unspecified COPD type J44.9 and Tobacco use Z72.0 [facility] [id number] [place] [address] 29652- 4599 Aug, [facility] [address], [place] [address] 0[address] Jul, [facility] [address] [address] Jul, [facility] [address], [place] [address] 8[address] Jul, Type 2 diabetes mellitus 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, unspecified roasterman insulin use status E11.40 [facility] [address], [place] [address] 8[address] Jun, Bipolar disorder, unspecified F31.9 [facility] [id number] [address] 9[address] Jun, [facility] [address], [place] [address] 3[address] Jun, Bipolar disorder, unspecified F31.9 [facility] [address], [place] [address] 18[address] Jun, Mood disorder F39 [facility] [address] [place] [address] 75469- 9773 Jun, [facility] [address], [place] [address] 8[address] May, Fissure in skin of foot R23.4 ; Callus of foot L84 and Type 2 diabetes mellitus 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, unspecified roasterman insulin use status E11.40 [facility] [address], [place] [address] 85[address] May, Mood disorder F39 [facility] [address] [address] Apr, [facility] [address] [address] Apr, Cough R05 and Tobacco use Z72.0 [facility] [id number] [place] [address] 94972- 7227 Apr, Cough R05 and Tobacco use Z72.0 [facility] [id number] [place] [address] 21173- 6483 Apr, Mood disorder F39 [facility] [id number] [place] [address] 99779- 1233 Apr, Low back pain M54.5 [facility] [id number] [place] [address] 74889- 6679 Apr, Uncontrolled type 2 diabetes mellitus with hyperglycemia, without long-term current use of insulin E11.65 [facility] [id number] [place] [address] 33204- 6422 Apr, Uncontrolled type 2 diabetes mellitus with hyperglycemia, without long-term current use of insulin E11.65 [facility] [id number] [place] [address] 05227- 7487 Mar, Bipolar disorder, unspecified F31.9 [facility] [id number] [place] [address] 01649- 7964 Mar, [facility] [id number] [place] [address] 69207- 2846 Mar, Bipolar disorder, unspecified F31.9 [facility] [id number] [place] [address] 85565- 9375 Mar, Mood disorder F39 [facility] [id number] [place] [address] 20673- 5529 Feb, [facility] [id number] [place] [address] 93583- 4177 Feb, [facility] [id number] [place] [address] 55559- 7632 Feb, [facility] [id number] [place] [address] 64932- 1038 Feb, Bipolar disorder, unspecified F31.9 [facility] [id number] [place] [address] 14367- 4937 08 Feb, 2017 Uncontrolled type 2 diabetes mellitus with hyperglycemia, without long-term current use of insulin E11.65 ; Encounter for immunization Z23 ; Vasovagal syncope R55 and Low back pain M54.5 [address] [place] [id number] [place] [address] 13743- 5576 Jan, Bipolar disorder, unspecified F31.9 [address] [address] 29542- 3219 Jan, [address] 44794- 9785 Jan, Fatigue, unspecified type R53.83 ; Nocturnal hypoxia G47.34 ; Leukocytosis D72.829 ; Other chronic gastritis without hemorrhage K29.50 ; Uncontrolled type 2 diabetes mellitus with hyperglycemia, without long-term current use of insulin E11.65 ; Alternating constipation and diarrhea R19.8 and Chronic obstructive pulmonary disease, unspecified COPD type J44.9 [address] 82328- 4601 Jan, [place] [address] 20070- 5837 Jan, Leukocytosis D72.829 [id number] [place] [address] 97524- 5734 Jan, Mood disorder F39 [address] [id number] [place] [address] 19974- 0648 Dec, Bipolar disorder, unspecified F31.9 [place] [place] [id number] [place] [address] 64448- 2198 Dec, [facility] [id number] [place] [address] 27893 -8518 Dec, Acute gastritis without bleeding K29.00 [address] 26766- 0245 Dec, Leukocytosis D72.829 [address], [place] [address]- 3226 Dec, [address] [id number] [place] [address] 32649- 6779 Dec, Dental examination Z01.20 [facility] [address] [place] [address] 28000- 5673 Dec, [id number] [place] [address] 71551- 4495 Dec, Leukocytosis D72.829 [id number] [place] [address] 51230- 1983 Dec, Uncontrolled type 2 diabetes mellitus with hyperglycemia, without long-term current use of insulin E11.65 [id number] [place] [address] 43088- 2760 Nov, Dental examination Z01.20 [address] [id number] [place] [address] 53552- 0560 Nov, [id number] [place] [address] 39089- 8631 Nov, Major depressive disorder, recurrent episode, moderate F33.1 [id number] [place] [address] 08783- 4623 Nov, Leukocytosis D72.829 [id number] [place] [address] 10336- 8174 Nov, Mood disorder F39 [address] [place] [address] 45868- 1992 Nov, Other osteoarthritis of spine, cervical region M47.892 and Uncontrolled type 2 diabetes mellitus with hyperglycemia, without long-term current use of insulin E11.65 [address], [place] [address]- 1331 Nov, Leukocytosis D72.829 and Elevated serum glucose R73.9 [facility] [address], [place] [address]- 5045 October, Elevated serum glucose R73.9 [facility] [address], [place] [address]- 3103 October, Mood disorder F39 [facility] [address], [place] [address]- 2515 Sep, Major depressive disorder, recurrent episode, moderate F33.1 [facility] [address], [place] [address]- 6394 Sep, Mood disorder F39 [facility] [id number] [place] [address] 95156- 8911 Aug, [facility] [address] [place] [address] 29109- 7464 Jul, Major depressive disorder, recurrent episode, moderate F33.1 [facility] [address], [place] [address]- 4849 Jul, Mood disorder F39 [facility] [id number] [place] [address] 51808- 5079 Jul, [facility] [address], [place] [address]- 1479 Jul, History of LA (myocardial infarction) I25.2 ; Hyperlipidemia E78.5 ; Prediabetes R73.09 ; Chronic obstructive pulmonary disease, unspecified COPD type J44.9 and Tobacco use Z72.0 [facility] [address], [place] [address]- 4673 Jun, [facility] [address], [place] [address]- 9004 Jun, Mood disorder F39 [facility] [address], [place] [address]- 6961 Jun, [facility] [address] [place] [address] 77096- 6664 May, Major depressive disorder, recurrent episode, moderate F33.1 and Primary insomnia F51.01 [facility] [address] [place] [address] 24653- 0733 May, Mood disorder F39 [facility] [id number] [place] [address] 97016- 4061 Apr, [facility] [id number] [place] [address] 83908- 4613 Apr, Mood disorder F39 [facility] [id number] [place] [address] 68699- 5786 Apr, [place] [id number] [place] [address] 88958- 6653 Apr, [place] [id number] [place] [address] 69797- 0056 Apr, Chronic obstructive pulmonary disease, unspecified COPD type J44.9 and Non-seasonal allergic rhinitis due to other allergic trigger J30.89 [facility] [address] [place] [address] 02001- 5489 Apr, Mood disorder F39 [place] [id number] [place] [address] 65070- 7166 Apr, Major depressive disorder, recurrent episode, moderate F33.1 and PTSD (post-traumatic stress disorder) F43.10 [place] [place] [place] [address] 46681- 9787 Apr, [facility] [address] [place] [address] 43290- 4684 Apr, [facility] [id number] [place] [address] 38652- 5192 04 Apr, 2016 Chest pain, unspecified type R07.9 ; Chronic obstructive pulmonary disease, unspecified COPD type J44.9 ; Hyperlipidemia, unspecified hyperlipidemia type E78.5 and Tobacco use Z72.0 [place] [id number] [place] [address] 11539- 8664 Mar, Mood disorder F39 [facility] [id number] [place] [address] 97445- 0568 Mar, Mood disorder F39 [facility] [address] [place] [address] 84328- 0476 Mar, Other osteoarthritis of spine, cervical region M47.892 [facility] [id number] [place] [address] 43259- 1785 Mar, Tear of right rotator cuff, unspecified tear extent M75.101 [facility] [id number] [place] [address] 24839- 6785 Mar, [facility] [id number] [place] [address] 24539- 4635 Mar, Bipolar II disorder F31.81 [place] [place] [id number] [place] [address] 72108- 0338 Mar, [facility] [id number] [place] [address] 13575- 6116 Feb, Impingement syndrome of right shoulder M75.41 ; Tear of right rotator cuff, unspecified tear extent M75.101 and Loose body in right elbow M24.021 [facility] [address], [place] [address]- 6855 Jan, [facility] [id number] [place] [address] 76516- 7522 Jan, [facility] [address] [place] [address] 66765- 1356 Jan, Prediabetes R73.09 ; Other chronic pain G89.29 and Pain in right shoulder M25.511 [facility] [id number] [place] [address] 31719- 3305 Dec, [facility] [id number] [place] [address] 89075- 6264 Dec, Heartburn R12 and Chest discomfort R07.89 [place] [address] [place] [address] 39593- 4589 Dec, Impingement syndrome of right shoulder M75.41 and 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, 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 [place] [address] [place] [address] 62742- 5285 Nov, [place] [address] 99781- 9275 Nov, Leukocytosis D72.829 [place] [address] 49195- 7029 Nov, [place] [address] [place] [address] 26287- 0117 Nov, Enlarged lymph node R59.9 ; Chronic obstructive pulmonary disease, unspecified COPD type J44.9 ; Low back pain M54.5 ; Neuropathy G62.9 and Closed nondisplaced fracture of sternal end of right clavicle, sequela S42.017[address] [place] [address] 68806- 7867 October, [place] [id number] [place] [address] 92886- 6969 October, [place] [id number] [place] [address] 63961- 6644 Sep, [place] [address] [place] [address] 19322- 1519 Aug, Double vision H53.2 ; Occipital headache R51 ; Chronic obstructive pulmonary disease, unspecified COPD type J44.9 and Gastroesophageal reflux disease, esophagitis presence not specified K21.9 [place] [id number] [place] [address] 41098- 4709 Aug, [place] [address] 28370- 9240 Jul, Enlarged lymph node in neck R59.0 [place] [id number] [place] [address] 28669- 4502 Jul, [place] [address] 49816- 2997 10 Jul, 2015 Chronic obstructive pulmonary disease, unspecified COPD type J44.9 ; Tobacco use Z72.0 ; Leukocytosis D72.829 ; Hyperlipidemia E78.5 and Neck abscess L02.11 [place] [address] 77015- 9154 Jun, Shortness of breath R06.02 [place] [address] 66080- 7567 May, Leukocytosis D72.829 and Shortness of breath R06.[address] 05510- 4103 May, Low back pain M54.5 ; Hyperlipidemia E78.5 ; Leukocytosis D72.829 ; Other osteoarthritis of spine, cervical region M47.892 and Shortness of breath R06.02 [place] [address] 01239- 4619 Feb, Chest pain 786.50 ; Tobacco use 305.1 ; Back pain 724.5 and Hyperlipemia 272.4 [address] [id number] [place] [address] 49721- 5118 Jan, [address] 23136- 2983 Jan, Chronic low back pain 724.2 and Degenerative arthritis of cervical spine 721.[address] 05408- 4036 Jan, Chronic low back pain 724.2 and Neck pain 723.[address] 61671- 7273 Dec, Chronic low back pain 724.2 and Neck pain 723.1 [place] [id number] [place] [address] 64828- 5199 Nov, Chest pain 786.50 ; Dyspnea 786.09 ; Tobacco use 305.1 and Back pain 724.[address] 26854- 0053 Nov, [address] 96698- 5830 Nov, Disability examination V68.01 and Muscle pain 729.[address] 70872- 0527 October, History of LA (myocardial infarction) 412 ; Hyperlipidemia LDL goal < 100 272.4 ; Leukocytosis 288.60 and Glucose intolerance (pre-diabetes ) 790.[address] 48933- 0298 October, Chest pain 786.50 ; Chronic low back pain 724.2 ; History of [place] (myocardial infarction) 412 and Neuropathy 355.[address] 93203- 5359 October, Chronic low back pain 724.2 ; Chest pain 786.50 ; History of [place] (myocardial infarction) 412 and Neuropathy 355.9 IMMUNIZATIONS No Known Immunizations SOCIAL HISTORY Never Assessed REASON FOR VISIT Blood Pressure-ELOY Becker PLAN OF CARE VITAL SIGNS Height 68 in 2017-09-07 Blood pressure systolic 100 mmHg 2017-09-07 Blood pressure diastolic 70 mmHg 2017-09-07 MEDICATIONS Medication Instructions Dosage Frequency Start Date End Date Duration Status Albuterol Sulfate (2.5 MG/3ML) 0.083% Inhalation 4 times a day 3 ml 6h Active Nebulizer - Active Dexilant 60 MG TAKE ONE CAPSULE BY MOUTH ONCE DAILY 90 Active Carafate 1 GM Orally 4 times a day x 2 weeks then prn 1 tablet on an empty stomach Active Blood Glucose Monitor System w/Device DX- E 11.65 2 times a day- 3 times weekly. test blood sugar Nov, Active Metformin HCl 500 MG TAKE TWO TABLETS BY MOUTH TWICE DAILY WITH MEALS 90 Active Oxygen inhalation Portable 2 liters per minute Active Citalopram Hydrobromide 20 MG Orally Once a day 1.5 tablets 24h 30 days Active Blood Glucose Test - and lancets. DX E11.65 2 times a day- 3 times weekly. test blood sugar 16 Active Singulair 10 mg Orally Once a day 1 tablet in the evening 24h 90 days Active Montelukast Sodium 10 MG TAKE ONE TABLET BY MOUTH ONCE DAILY IN THE EVENING 90 Active Metformin HCl 1000 MG Orally Twice a day 1 tablet with meals 12h 90 days Active Symbicort 160-4.5 MCG/ACT Inhalation Twice a day 2 puffs 12h 24 Aug, 2015 Active Baclofen 10 mg Orally 2 times a day 1 tablet with food or milk as needed 12h 30 Aug, 2017 Sep, Active Proventil HFA 108 (90 Base) MCG/ACT Inhalation every 4 hrs 2 puffs as needed 4h 12 Jul, 2015 Active Crestor 10 MG Orally Once a day 1 tablet 24h Active Seroquel 200 MG Orally at night 1 tablet Dec, 30 days Active ZyrTEC 10 MG Orally Once a day 1 tablet 24h Active Aspir-81 81 MG Orally Once a day 1 tablet 24h Active Trazodone HCl 150 MG orally at night as needed for sleep 0.5 tablet 30 days Active RESULTS No Results PROCEDURES [...]
--- OUTSIDE RECORDS SUMMARY | 2018-04-03 14:44 | XMS REPORT ---
Author Author KINJAL DORIS [facility] Address [facility] [place] [address] Care Team Providers Care Home Supervisor Name Role Phone DORIS LAYTON Unavailable PROBLEMS Type Condition ICD9-CM Code WMQ25-TX Code Onset Dates Condition Status SNOMED Code Problem Enlarged lymph node R59.9 Active 12044275 Problem Hyperlipidemia, unspecified hyperlipidemia type E78.5 Active 06929008 Problem Tear of right rotator cuff, unspecified tear extent M75.101 Active 044303370 Problem Other chronic pain G89.29 Active 87740400 Problem Internal hemorrhoids K64.8 Active 27399579 Problem Nocturnal hypoxia G47.34 Active 895244501 Problem Panlobular emphysema J43.1 Active 6925740 Problem Hyperplastic colonic polyp, unspecified part of colon K63.5 Active 074633320 Problem Non-seasonal allergic rhinitis due to other allergic trigger J30.89 Active 78756801 Problem Mood disorder F39 Active 51870086 Problem Bipolar disorder, unspecified F31.9 Active 31057365 Problem Uncontrolled type 2 diabetes mellitus with hyperglycemia, without long -term current use of insulin E11.65 Active 474871715 Problem GERD with esophagitis K21.0 Active 490392560 Problem Other osteoarthritis of spine, cervical region M47.892 Active 461521913 Problem Hiatal hernia K44.9 Active 66941520 Problem External hemorrhoids K64.4 Active 24003533 Problem Leukocytosis D72.829 Active 390599479 Problem Hyperlipidemia E78.5 Active 74608288 Problem History of [place] (myocardial infarction) I25.2 Active 885343890 Problem Neuropathy G62.9 Active 104242709 Problem Other chronic gastritis without hemorrhage K29.50 Active 4557834 Problem Low back pain M54.5 Active 439107435 Problem Tobacco use Z72.0 Active 426233116 ALLERGIES No Information ENCOUNTERS Encounter Location Date Diagnosis [facility] [id number] [address] Jun, [facility] [address] [address] Jan, [facility] [address] [address] Dec, Bipolar disorder, unspecified F31.9 [facility] [id number] [place] [address] 91708- 8421 Dec, [facility] [id number] [place] [address] 03407- 2920 Dec, [facility] [id number] [place] [address] 48029- 1935 Dec, [facility] [id number] [place] [address] 52942- 6637 Dec, Mood disorder F39 [facility] [id number] [place] [address] 11544- 4915 Nov, Bipolar disorder, unspecified F31.9 [facility] [address] [address] Nov, [facility] [id number] [place] [address] 84675- 1635 Nov, Pain in left knee M25.562 ; Other chronic pain G89.29 ; Hyperlipidemia E78.5 ; Leukocytosis D72.829 ; Other osteoarthritis of spine, cervical region M47.892 ; Tobacco use Z72.0 and Uncontrolled type 2 diabetes mellitus with hyperglycemia, without long-term current use of insulin E11.65 [facility] [address] [address] 36[address] Nov, [facility] [id number] [place] [address] 717074- 3413 Nov, [facility] [address], [place] [address] October, [facility] [id number] [address] 66[address] October, Low back pain M54.5 [facility] [id number] [place] [address] 85292- 9832 Sep, [facility] [id number] [place] [address] 92289- 6676 Sep, [facility] [id number] [place] [address] 57748- 1115 Sep, Leukocytosis D72.829 [facility] [id number] [place] [address] 15964- 6799 Sep, [facility] [id number] [place] [address] 96714- 2502 Sep, [facility] [id number] [place] [address] 32051- 2430 Sep, [facility] [id number] [place] [address] 36304- 3898 Aug, Low back pain M54.5 [facility] [id number] [place] [address] 39643- 9937 Aug, Bipolar disorder, unspecified F31.9 [facility] [id number] [place] [address] 40722- 4809 Aug, [facility] [id number] [place] [address] 54707- 4388 Aug, [facility] [address] [place] [address] 43462- 7622 Aug, Uncontrolled type 2 diabetes mellitus with hyperglycemia, without long-term current use of insulin E11.65 ; Non-healing surgical wound, initial encounter T81.89XA ; Cellulitis of abdominal wall L03.311 ; Hyperlipidemia E78.5 ; Chronic obstructive pulmonary disease, unspecified COPD type J44.9 and Tobacco use Z72.0 [facility] [id number] [place] [address] 58143- 9724 Aug, [facility] [address], [place] [address] 8527 Jul, [facility] [address] [address] Jul, [facility] [address], [place] [address] 12[address] Jul, Type 2 diabetes mellitus 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, 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 [facility] [address], [place] [address] 6485 Jun, Bipolar disorder, unspecified F31.9 [facility] [id number] [address] 5[address] Jun, [facility] [address], [place] [address] 4976 Jun, Bipolar disorder, unspecified F31.9 [facility] [address], [place] [address] 6822 Jun, Mood disorder F39 [facility] [id number] [place] [address] 16007- 8805 Jun, [facility] [address], [place] [address] 3842 May, Fissure in skin of foot R23.4 ; Callus of foot L84 and Type 2 diabetes mellitus 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, 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 [facility] [address], [place] [address] 7[address] May, Mood disorder F39 [facility] [address] [address] [address] Apr, [facility] [address] [address] [address] Apr, Cough R05 and Tobacco use Z72.0 [facility] [id number] [place] [address] 00111- 5545 Apr, Cough R05 and Tobacco use Z72.0 [facility] [id number] [place] [address] 30374- 6291 Apr, Mood disorder F39 [facility] [id number] [place] [address] 76904- 1871 Apr, Low back pain M54.5 [facility] [id number] [place] [address] 31534- 5774 Apr, Uncontrolled type 2 diabetes mellitus with hyperglycemia, without long-term current use of insulin E11.65 [facility] [id number] [place] [address] 04659- 4659 Apr, Uncontrolled type 2 diabetes mellitus with hyperglycemia, without long-term current use of insulin E11.65 [facility] [id number] [place] [address] 96317- 5670 Mar, Bipolar disorder, unspecified F31.9 [facility] [id number] [place] [address] 91557- 4200 Mar, [facility] [id number] [place] [address] 03695- 4083 Mar, Bipolar disorder, unspecified F31.9 [facility] [id number] [place] [address] 49038- 5469 Mar, Mood disorder F39 [facility] [id number] [place] [address] 93522- 2098 Feb, [facility] [id number] [place] [address] 01507- 8967 Feb, [facility] [id number] [place] [address] 83436- 7536 Feb, [facility] [id number] [place] [address] 43319- 0624 Feb, Bipolar disorder, unspecified F31.9 [facility] [id number] [place] [address] 60712- 3393 08 Feb, 2017 Uncontrolled type 2 diabetes mellitus with hyperglycemia, without long-term current use of insulin E11.65 ; Encounter for immunization Z23 ; Vasovagal syncope R55 and Low back pain M54.5 [facility] [id number] [place] [address] 39370- 6186 Jan, Bipolar disorder, unspecified F31.9 [facility] [facility] [address] 42709- 1312 Jan, [place] [address] 25674- 3562 Jan, Fatigue, unspecified type R53.83 ; Nocturnal hypoxia G47.34 ; Leukocytosis D72.829 ; Other chronic gastritis without hemorrhage K29.50 ; Uncontrolled type 2 diabetes mellitus with hyperglycemia, without long-term current use of insulin E11.65 ; Alternating constipation and diarrhea R19.8 and Chronic obstructive pulmonary disease, unspecified COPD type J44.9 [place] [facility] [address] 16412- 5491 Jan, [place] [facility] [address] 07737- 0417 Jan, Leukocytosis D72.829 [facility] [id number] [place] [address] 20544- 0274 Jan, Mood disorder F39 [facility] [id number] [place] [address] 31303- 1281 Dec, Bipolar disorder, unspecified F31.9 [facility] [id number] [place] [address] 96675- 5030 Dec, [facility] [id number] [place] [address] 07022 -6366 Dec, Acute gastritis without bleeding K29.00 [place] [address] 90281- 2831 Dec, Leukocytosis D72.829 [facility] [address], [place] [address]- 0803 Dec, [facility] [id number] [place] [address] 78351- 8112 Dec, Dental examination Z01.20 [facility] [id number] [place] [address] 75668- 1097 Dec, [address] [id number] [place] [address] 65468- 5034 Dec, Leukocytosis D72.829 [facility] [id number] [place] [address] 66044- 4715 Dec, Uncontrolled type 2 diabetes mellitus with hyperglycemia, without long-term current use of insulin E11.65 [facility] [id number] [place] [address] 61722- 7600 Nov, Dental examination Z01.20 [facility] [id number] [place] [address] 83705- 4431 Nov, [facility] [id number] [place] [address] 54116- 9869 Nov, Major depressive disorder, recurrent episode, moderate F33.1 [address] [facility] [id number] [place] [address] 63096- 8504 Nov, Leukocytosis D72.829 [address] [id number] [place] [address] 28424- 8422 Nov, Mood disorder F39 [facility] [address] [place] [address] 46191- 5598 Nov, Other osteoarthritis of spine, cervical region M47.892 and Uncontrolled type 2 diabetes mellitus with hyperglycemia, without long-term current use of insulin E11.65 [address] [facility], [place] [address]- 2771 Nov, Leukocytosis D72.829 and Elevated serum glucose R73.9 [facility] [address], [place] [address]- 1325 October, Elevated serum glucose R73.9 [facility] [address], [place] [address]- 3978 October, Mood disorder F39 [facility] [address], [place] [address]- 3671 Sep, Major depressive disorder, recurrent episode, moderate F33.1 [facility] [address], [place] [address]- 2311 Sep, Mood disorder F39 [facility] [id number] [place] [address] 33436- 5037 Aug, [facility] [address] [place] [address] 46738- 5173 Jul, Major depressive disorder, recurrent episode, moderate F33.1 [facility] [address], [place] [address]- 8279 Jul, Mood disorder F39 [facility] [address] [place] [address] 73177- 0907 Jul, [facility] [address], [place] [address]- 4612 Jul, History of [place] (myocardial infarction) I25.2 ; Hyperlipidemia E78.5 ; Prediabetes R73.09 ; Chronic obstructive pulmonary disease, unspecified COPD type J44.9 and Tobacco use Z72.0 [facility] [address], [place] [address]- 1941 Jun, [facility] [address], [place] [address]- 8693 Jun, Mood disorder F39 [facility] [address], [place] [address]- 5512 Jun, [facility] [address] [place] [address] 51365- 5915 May, Major depressive disorder, recurrent episode, moderate F33.1 and Primary insomnia F51.01 [facility] [address] [place] [address] 71404- 4573 May, Mood disorder F39 [facility] [address] [place] [address] 12653- 0657 Apr, [facility] [id number] [place] [address] 39849- 0812 Apr, Mood disorder F39 [facility] [id number] [place] [address] 44208- 9396 Apr, [facility] [id number] [place] [address] 29260- 0856 Apr, [facility] [id number] [place] [address] 92258- 5611 Apr, Chronic obstructive pulmonary disease, unspecified COPD type J44.9 and Non-seasonal allergic rhinitis due to other allergic trigger J30.89 [facility] [address] [place] [address] 91164- 1073 Apr, Mood disorder F39 [facility] [id number] [place] [address] 60014- 0733 Apr, Major depressive disorder, recurrent episode, moderate F33.1 and PTSD (post-traumatic stress disorder) F43.10 [address] [address] [place] [address] 98444- 6041 Apr, [facility] [address] [place] [address] 25560- 8228 Apr, [facility] [id number] [place] [address] 55988- 2750 04 Apr, 2016 Chest pain, unspecified type R07.9 ; Chronic obstructive pulmonary disease, unspecified COPD type J44.9 ; Hyperlipidemia, unspecified hyperlipidemia type E78.5 and Tobacco use Z72.0 [facility] [id number] [place] [address] 03692- 7721 Mar, Mood disorder F39 [facility] [id number] [place] [address] 42641- 0343 Mar, Mood disorder F39 [facility] [address] [place] [address] 72519- 6736 Mar, Other osteoarthritis of spine, cervical region M47.892 [facility] [id number] [place] [address] 87532- 1745 Mar, Tear of right rotator cuff, unspecified tear extent M75.101 [facility] [id number] [place] [address] 29300- 8429 Mar, [facility] [id number] [place] [address] 74260- 5949 Mar, Bipolar II disorder F31.81 [facility] [id number] [place] [address] 15631- 3012 Mar, [facility] [id number] [place] [address] 83483- 1722 Feb, Impingement syndrome of right shoulder M75.41 ; Tear of right rotator cuff, unspecified tear extent M75.101 and Loose body in right elbow M24.021 [facility] [address], [place] [address]- 5941 Jan, [facility] [id number] [place] [address] 03513- 5397 Jan, [facility] [address] [place] [address] 32080- 7466 Jan, Prediabetes R73.09 ; Other chronic pain G89.29 and Pain in right shoulder M25.511 [facility] [id number] [place] [address] 76527- 8195 Dec, [facility] [id number] [place] [address] 93194- 8165 Dec, Heartburn R12 and Chest discomfort R07.89 [facility] [id number] [place] [address] 98508- 1866 Dec, Impingement syndrome of right shoulder M75.41 and 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, 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 [facility] [id number] [place] [address] 70633- 0460 Nov, [facility] [address] 46962- 5507 Nov, Leukocytosis D72.829 [facility] [address] 25657- 5030 Nov, [facility] [id number] [place] [address] 77027- 4028 Nov, Enlarged lymph node R59.9 ; Chronic obstructive pulmonary disease, unspecified COPD type J44.9 ; Low back pain M54.5 ; Neuropathy G62.9 and Closed nondisplaced fracture of sternal end of right clavicle, sequela S42.017S [facility] [address] 42238- 4244 October, [facility] [id number] [place] [address] 12597- 7933 October, [facility] [id number] [place] [address] 99723- 9908 Sep, [facility] [id number] [place] [address] 72013- 9544 Aug, Double vision H53.2 ; Occipital headache R51 ; Chronic obstructive pulmonary disease, unspecified COPD type J44.9 and Gastroesophageal reflux disease, esophagitis presence not specified K21.9 [facility] [id number] [place] [address] 78346- 7349 Aug, [facility] [place] [address] 23185- 5544 Jul, Enlarged lymph node in neck R59.0 [facility] [id number] [place] [address] 86540- 8023 Jul, [facility] [address] 05316- 3369 10 Jul, 2015 Chronic obstructive pulmonary disease, unspecified COPD type J44.9 ; Tobacco use Z72.0 ; Leukocytosis D72.829 ; Hyperlipidemia E78.5 and Neck abscess L02.11 [place] [address] 77662- 7845 Jun, Shortness of breath R06.02 [facility] [address] 34413- 8455 May, Leukocytosis D72.829 and Shortness of breath R06.[address] 17379- 3440 May, Low back pain M54.5 ; Hyperlipidemia E78.5 ; Leukocytosis D72.829 ; Other osteoarthritis of spine, cervical region M47.892 and Shortness of breath R06.02 [place] [address] 16217- 5910 Feb, Chest pain 786.50 ; Tobacco use 305.1 ; Back pain 724.5 and Hyperlipemia 272.4 [address] [id number] [place] [address] 38387- 5856 Jan, [address] 21405- 4488 Jan, Chronic low back pain 724.2 and Degenerative arthritis of cervical spine 721.[address] 14045- 6048 Jan, Chronic low back pain 724.2 and Neck pain 723.[address] 25287- 9784 Dec, Chronic low back pain 724.2 and Neck pain 723.1 [place] [id number] [place] [address] 88678- 8896 Nov, Chest pain 786.50 ; Dyspnea 786.09 ; Tobacco use 305.1 and Back pain 724.[address] 33252- 3714 Nov, [address] 79701- 1746 Nov, Disability examination V68.01 and Muscle pain 729.[address] 90733- 4573 October, History of [place] (myocardial infarction) 412 ; Hyperlipidemia LDL goal < 100 272.4 ; Leukocytosis 288.60 and Glucose intolerance (pre-diabetes ) 790.[address] 19162- 5980 October, Chest pain 786.50 ; Chronic low back pain 724.2 ; History of [place] (myocardial infarction) 412 and Neuropathy 355.[address] 00266- 9754 October, Chronic low back pain 724.2 ; Chest pain 786.50 ; History of [place] (myocardial infarction) 412 and Neuropathy 355.9 IMMUNIZATIONS No Known Immunizations SOCIAL HISTORY Never Assessed REASON FOR VISIT MTM (Medication Therapy Management) PLAN OF CARE VITAL SIGNS MEDICATIONS Medication Instructions Dosage Frequency Start Date End Date Duration Status Singulair 10 mg Orally Once a day 1 tablet in the evening 24h 90 days Active Albuterol Sulfate (2.5 MG/3ML) 0.083% Inhalation 4 times a day 3 ml 6h Active Seroquel 200 MG Orally at night 1 tablet Dec, 30 days Active Baclofen 10 mg Orally Three times a day 1 tablet with food or milk as needed 8h Aug, Sep, 30 day(s) Active Proventil HFA 108 (90 Base) MCG/ACT Inhalation every 4 hrs 2 puffs as needed 4h Jul, Active Dexilant 60 MG TAKE ONE CAPSULE BY MOUTH ONCE DAILY 90 Active Blood Glucose Monitor System w/Device DX- E 11.65 2 times a day- 3 times weekly. test blood sugar Nov, Active Symbicort 160-4.5 MCG/ACT Inhalation Twice a day 2 puffs 12h 24 Aug, 2015 Active Aspir-81 81 MG Orally Once a day 1 tablet 24h Active Metformin HCl 1000 MG Orally Twice a day 1 tablet with meals 12h 90 days Active Metformin HCl 500 MG TAKE TWO TABLETS BY MOUTH TWICE DAILY WITH MEALS 90 Active Montelukast Sodium 10 MG TAKE ONE TABLET BY MOUTH ONCE DAILY IN THE EVENING 90 Active Oxygen inhalation Portable 2 liters per minute Active Trazodone HCl 150 MG orally at night as needed for sleep 0.5 tablet 30 days Active Carafate 1 GM Orally 4 times a day x 2 weeks then prn 1 tablet on an empty stomach Active Blood Glucose Test - and lancets. DX E11.65 2 times a day- 3 times weekly. test blood sugar Nov, Active ZyrTEC 10 MG Orally Once a day 1 tablet 24h Active Nebulizer - Active Crestor 10 MG Orally Once a day 1 tablet 24h Active Citalopram Hydrobromide 20 MG Orally Once a day 1.5 tablets 24h 30 days Active RESULTS No Results PROCEDURES [...]
--- OUTSIDE RECORDS SUMMARY | 2018-04-03 14:44 | XMS REPORT ---
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 Name Role Phone LINDSEYMARLIN GRIMES Unavailable PROBLEMS Type Condition ICD9-CM Code AMM73-WC Code Onset Dates Condition Status SNOMED Code Problem Enlarged lymph node R59.9 Active 97485063 Problem Hyperlipidemia, unspecified hyperlipidemia type E78.5 Active 78147440 Problem Tear of right rotator cuff, unspecified tear extent M75.101 Active 757957275 Problem Other chronic pain G89.29 Active 20399374 Problem Internal hemorrhoids K64.8 Active 26524239 Problem Nocturnal hypoxia G47.34 Active 693963854 Problem Panlobular emphysema J43.1 Active 3622582 Problem Hyperplastic colonic polyp, unspecified part of colon K63.5 Active 117328624 Problem Non-seasonal allergic rhinitis due to other allergic trigger J30.89 Active 83488193 Problem Mood disorder F39 Active 92137869 Problem Bipolar disorder, unspecified F31.9 Active 21240374 Problem Uncontrolled type 2 diabetes mellitus with hyperglycemia, without long -term current use of insulin E11.65 Active 975396146 Problem GERD with esophagitis K21.0 Active 882805521 Problem Other osteoarthritis of spine, cervical region M47.892 Active 057250402 Problem Hiatal hernia K44.9 Active 09202683 Problem External hemorrhoids K64.4 Active 95579737 Problem Leukocytosis D72.829 Active 290835200 Problem Hyperlipidemia E78.5 Active 75626840 Problem History of MD (myocardial infarction) I25.2 Active 614075133 Problem Neuropathy G62.9 Active 258786681 Problem Other chronic gastritis without hemorrhage K29.50 Active 2503630 Problem Low back pain M54.5 Active 211918986 Problem Tobacco use Z72.0 Active 089230368 ALLERGIES No Information ENCOUNTERS Encounter Location Date Diagnosis [facility] [id number], [place] [address] Jun, [facility] [address], [place] [address] Jan, [facility] [address] [address] [address] Dec, Bipolar disorder, unspecified F31.9 [facility] [id number] [place] [address] 79154- 2936 Dec, [facility] [id number] [place] [address] 45118- 9086 Dec, [facility] [id number] [place] [address] 18470- 5919 Dec, [facility] [id number] [place] [address] 36402- 6088 Dec, Mood disorder F39 [facility] [id number] [place] [address] 86191- 8095 Nov, Bipolar disorder, unspecified F31.9 [facility] [address], [place] [address] Nov, [facility] [address] [place] [address] 30660- 7100 Nov, Pain in left knee M25.562 ; Other chronic pain G89.29 ; Hyperlipidemia E78.5 ; Leukocytosis D72.829 ; Other osteoarthritis of spine, cervical region M47.892 ; Tobacco use Z72.0 and Uncontrolled type 2 diabetes mellitus with hyperglycemia, without long-term current use of insulin E11.65 [facility] [address], [place] [address] 4[address] Nov, [facility] [id number] [place] [address] 357237- 3781 Nov, [facility] [address], [place] [address] October, [facility] [address] [address] 0024 October, Low back pain M54.5 [facility] [id number] [place] [address] 82387- 3680 Sep, [facility] [id number] [place] [address] 12647- 5906 Sep, [facility] [id number] [place] [address] 53098- 7635 Sep, Leukocytosis D72.829 [facility] [id number] [place] [address] 21388- 9067 Sep, [facility] [id number] [place] [address] 75444- 9531 Sep, [facility] [id number] [place] [address] 00606- 1032 Sep, [facility] [id number] [place] [address] 03430- 4655 Aug, Low back pain M54.5 [facility] [id number] [place] [address] 02485- 0459 Aug, Bipolar disorder, unspecified F31.9 [facility] [id number] [place] [address] 01433- 1731 Aug, [facility] [id number] [place] [address] 72342- 2677 Aug, [facility] [id number] [place] [address] 82191- 2488 Aug, Uncontrolled type 2 diabetes mellitus with hyperglycemia, without long-term current use of insulin E11.65 ; Non-healing surgical wound, initial encounter T81.89XA ; Cellulitis of abdominal wall L03.311 ; Hyperlipidemia E78.5 ; Chronic obstructive pulmonary disease, unspecified COPD type J44.9 and Tobacco use Z72.0 [facility] [id number] [place] [address] 61551- 0381 Aug, [facility] [address], [place] [address] 5112 Jul, [facility] [address] [address] Jul, [facility] [address], [place] [address] 8160 Jul, Type 2 diabetes mellitus 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, unspecified [facility] insulin use status E11.40 [facility] [address], [place] [address] 1649 Jun, Bipolar disorder, unspecified F31.9 [facility] [address] [address] 1603 Jun, [facility] [address], [place] [address] 6383 Jun, Bipolar disorder, unspecified F31.9 [facility] [address], [place] [address] 7042 Jun, Mood disorder F39 [facility] [address] [place] [address] 35454- 4649 Jun, [facility] [address], [place] [address] 4226 May, Fissure in skin of foot R23.4 ; Callus of foot L84 and Type 2 diabetes mellitus 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, unspecified [facility] insulin use status E11.40 [facility] [address], [place] [address] 4788 May, Mood disorder F39 [facility] [address] [address] Apr, [facility] [address] [address] Apr, Cough R05 and Tobacco use Z72.0 [facility] [id number] [place] [address] 44267- 9253 Apr, Cough R05 and Tobacco use Z72.0 [facility] [id number] [place] [address] 24805- 3550 Apr, Mood disorder F39 [facility] [id number] [place] [address] 37674- 7709 Apr, Low back pain M54.5 [facility] [id number] [place] [address] 10826- 8583 Apr, Uncontrolled type 2 diabetes mellitus with hyperglycemia, without long-term current use of insulin E11.65 [facility] [id number] [place] [address] 21966- 7789 Apr, Uncontrolled type 2 diabetes mellitus with hyperglycemia, without long-term current use of insulin E11.65 [facility] [id number] [place] [address] 33484- 1561 Mar, Bipolar disorder, unspecified F31.9 [facility] [id number] [place] [address] 88025- 5086 Mar, [facility] [id number] [place] [address] 52070- 8752 Mar, Bipolar disorder, unspecified F31.9 [facility] [id number] [place] [address] 08677- 3114 Mar, Mood disorder F39 [facility] [id number] [place] [address] 63738- 8502 Feb, [facility] [id number] [place] [address] 95511- 4942 Feb, [facility] [id number] [place] [address] 80160- 0838 Feb, [facility] [id number] [place] [address] 44484- 3010 Feb, Bipolar disorder, unspecified F31.9 [facility] [id number] [place] [address] 33949- 2221 08 Feb, 2017 Uncontrolled type 2 diabetes mellitus with hyperglycemia, without long-term current use of insulin E11.65 ; Encounter for immunization Z23 ; Vasovagal syncope R55 and Low back pain M54.5 [place] [id number] [place] [address] 55142- 6585 Jan, Bipolar disorder, unspecified F31.9 [place] [address] 27899- 0667 Jan, [place] [address] 16264- 2525 Jan, Fatigue, unspecified type R53.83 ; Nocturnal hypoxia G47.34 ; Leukocytosis D72.829 ; Other chronic gastritis without hemorrhage K29.50 ; Uncontrolled type 2 diabetes mellitus with hyperglycemia, without long-term current use of insulin E11.65 ; Alternating constipation and diarrhea R19.8 and Chronic obstructive pulmonary disease, unspecified COPD type J44.9 [address] [address] 39042- 4488 Jan, [place] [address] 39142- 6622 Jan, Leukocytosis D72.829 [place] [id number] [place] [address] 72231- 7561 Jan, Mood disorder F39 [place] [id number] [place] [address] 67346- 5042 Dec, Bipolar disorder, unspecified F31.9 [place] [id number] [place] [address] 23910- 9321 Dec, [facility] [id number] [place] [address] 41588 -1150 Dec, Acute gastritis without bleeding K29.00 [place] [address] 58300- 7777 Dec, Leukocytosis D72.829 [place] [address], [place] [address]- 6216 Dec, [place] [id number] [place] [address] 30945- 8707 Dec, Dental examination Z01.20 [facility] [id number] [place] [address] 80191- 8289 Dec, [place] [id number] [place] [address] 58324- 8532 Dec, Leukocytosis D72.829 [place] [id number] [place] [address] 06969- 5947 Dec, Uncontrolled type 2 diabetes mellitus with hyperglycemia, without long-term current use of insulin E11.65 [place] [id number] [place] [address] 80297- 3414 Nov, Dental examination Z01.20 [place] [id number] [place] [address] 08410- 7318 Nov, [place] [id number] [place] [address] 41602- 6480 Nov, Major depressive disorder, recurrent episode, moderate F33.1 [address] [id number] [place] [address] 45652- 8610 Nov, Leukocytosis D72.829 [place] [id number] [place] [address] 53927- 2539 Nov, Mood disorder F39 [place] [id number] [place] [address] 20832- 9475 Nov, Other osteoarthritis of spine, cervical region M47.892 and Uncontrolled type 2 diabetes mellitus with hyperglycemia, without long-term current use of insulin E11.65 [address] [address], [place] [address]- 1892 Nov, Leukocytosis D72.829 and Elevated serum glucose R73.9 [facility] [address], [place] [address]- 2897 October, Elevated serum glucose R73.9 [facility] [address], [place] [address]- 2594 October, Mood disorder F39 [facility] [address], [place] [address]- 5508 Sep, Major depressive disorder, recurrent episode, moderate F33.1 [facility] [address], [place] [address]- 7454 Sep, Mood disorder F39 [facility] [id number] [place] [address] 24957- 9040 Aug, [facility] [id number] [place] [address] 62257- 7203 Jul, Major depressive disorder, recurrent episode, moderate F33.1 [facility] [address], [place] [address]- 7087 Jul, Mood disorder F39 [facility] [id number] [place] [address] 49750- 2822 Jul, [facility] [address], [place] [address]- 2388 Jul, History of MD (myocardial infarction) I25.2 ; Hyperlipidemia E78.5 ; Prediabetes R73.09 ; Chronic obstructive pulmonary disease, unspecified COPD type J44.9 and Tobacco use Z72.0 [facility] [address], [place] [address]- 7719 Jun, [facility] [address], [place] [address]- 2825 Jun, Mood disorder F39 [facility] [address], [place] [address]- 7116 Jun, [facility] [id number] [place] [address] 38903- 8580 May, Major depressive disorder, recurrent episode, moderate F33.1 and Primary insomnia F51.01 [facility] [address] [place] [address] 66029- 0941 May, Mood disorder F39 [facility] [id number] [place] [address] 57880- 0809 Apr, [facility] [id number] [place] [address] 13199- 2125 Apr, Mood disorder F39 [facility] [id number] [place] [address] 64303- 6499 Apr, [place] [id number] [place] [address] 55878- 4052 Apr, [place] [id number] [place] [address] 65351- 1484 Apr, Chronic obstructive pulmonary disease, unspecified COPD type J44.9 and Non-seasonal allergic rhinitis due to other allergic trigger J30.89 [facility] [address] [place] [address] 93649- 6965 Apr, Mood disorder F39 [place] [id number] [place] [address] 11904- 7433 Apr, Major depressive disorder, recurrent episode, moderate F33.1 and PTSD (post-traumatic stress disorder) F43.10 [place] [id number] [place] [address] 22611- 6056 Apr, [facility] [address] [place] [address] 92774- 8732 Apr, [facility] [id number] [place] [address] 09369- 7269 04 Apr, 2016 Chest pain, unspecified type R07.9 ; Chronic obstructive pulmonary disease, unspecified COPD type J44.9 ; Hyperlipidemia, unspecified hyperlipidemia type E78.5 and Tobacco use Z72.0 [place] [id number] [place] [address] 95669- 5677 Mar, Mood disorder F39 [facility] [id number] [place] [address] 02149- 0502 Mar, Mood disorder F39 [facility] [address] [place] [address] 98717- 8946 Mar, Other osteoarthritis of spine, cervical region M47.892 [facility] [id number] [place] [address] 11782- 5517 Mar, Tear of right rotator cuff, unspecified tear extent M75.101 [facility] [id number] [place] [address] 01580- 7720 Mar, [facility] [id number] [place] [address] 37423- 2422 Mar, Bipolar II disorder F31.81 [place] [id number] [place] [address] 70196- 8827 Mar, [facility] [id number] [place] [address] 33523- 7581 Feb, Impingement syndrome of right shoulder M75.41 ; Tear of right rotator cuff, unspecified tear extent M75.101 and Loose body in right elbow M24.021 [facility] [address], [place] [address]- 8787 Jan, [facility] [id number] [place] [address] 69232- 7150 Jan, [facility] [address] [place] [address] 20917- 1961 Jan, Prediabetes R73.09 ; Other chronic pain G89.29 and Pain in right shoulder M25.511 [facility] [id number] [place] [address] 05493- 9334 Dec, [facility] [id number] [place] [address] 18041- 6541 Dec, Heartburn R12 and Chest discomfort R07.89 [place] [id number] [place] [address] 17259- 4314 Dec, Impingement syndrome of right shoulder M75.41 and 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, 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 [place] [id number] [place] [address] 09401- 6088 Nov, [place] [address] 91007- 2508 Nov, Leukocytosis D72.829 [place] [address] 96712- 5894 Nov, [place] [id number] [place] [address] 72285- 5120 Nov, Enlarged lymph node R59.9 ; Chronic obstructive pulmonary disease, unspecified COPD type J44.9 ; Low back pain M54.5 ; Neuropathy G62.9 and Closed nondisplaced fracture of sternal end of right clavicle, sequela S42.017S [place] [address] 85948- 1772 October, [place] [id number] [place] [address] 85601- 8541 October, [place] [id number] [place] [address] 50888- 2139 Sep, [place] [id number] [place] [address] 21590- 1928 Aug, Double vision H53.2 ; Occipital headache R51 ; Chronic obstructive pulmonary disease, unspecified COPD type J44.9 and Gastroesophageal reflux disease, esophagitis presence not specified K21.9 [place] [id number] [place] [address] 23603- 6559 Aug, [place] [address] 20478- 3298 Jul, Enlarged lymph node in neck R59.0 [place] [id number] [place] [address] 12067- 7617 Jul, [place] [address] 30657- 2394 10 Jul, 2015 Chronic obstructive pulmonary disease, unspecified COPD type J44.9 ; Tobacco use Z72.0 ; Leukocytosis D72.829 ; Hyperlipidemia E78.5 and Neck abscess L02.11 [place] [address] 21862- 3385 Jun, Shortness of breath R06.02 [place] [address] 20944- 8674 May, Leukocytosis D72.829 and Shortness of breath R06.[address] 61391- 5968 May, Low back pain M54.5 ; Hyperlipidemia E78.5 ; Leukocytosis D72.829 ; Other osteoarthritis of spine, cervical region M47.892 and Shortness of breath R06.02 [place] [address] 25727- 7082 Feb, Chest pain 786.50 ; Tobacco use 305.1 ; Back pain 724.5 and Hyperlipemia 272.4 [place] [id number] [place] [address] 35743- 5918 Jan, [address] 79275- 6844 Jan, Chronic low back pain 724.2 and Degenerative arthritis of cervical spine 721.[address] 93897- 8827 Jan, Chronic low back pain 724.2 and Neck pain 723.[address] 75577- 0081 Dec, Chronic low back pain 724.2 and Neck pain 723.1 [place] [id number] [place] [address] 71600- 9800 Nov, Chest pain 786.50 ; Dyspnea 786.09 ; Tobacco use 305.1 and Back pain 724.[address] 78264- 9704 Nov, [address] 08828- 2909 Nov, Disability examination V68.01 and Muscle pain 729.[address] 38211- 7860 October, History of MD (myocardial infarction) 412 ; Hyperlipidemia LDL goal < 100 272.4 ; Leukocytosis 288.60 and Glucose intolerance (pre-diabetes ) 790.[address] 15849- 1056 October, Chest pain 786.50 ; Chronic low back pain 724.2 ; History of MD (myocardial infarction) 412 and Neuropathy 355.[address] 77713- 4468 October, Chronic low back pain 724.2 ; Chest pain 786.50 ; History of MD (myocardial infarction) 412 and Neuropathy 355.9 IMMUNIZATIONS No Known Immunizations SOCIAL HISTORY Never Assessed REASON FOR VISIT f/u PLAN OF CARE Activity Details Follow Up 3 Months Reason: VITAL SIGNS MEDICATIONS Medication Instructions Dosage Frequency Start Date End Date Duration Status Oxygen inhalation Portable 2 liters per minute Active ZyrTEC 10 MG Orally Once a day 1 tablet 24h Active Singulair 10 mg Orally Once a day 1 tablet in the evening 24h 90 days Active Albuterol Sulfate (2.5 MG/3ML) 0.083% Inhalation 4 times a day 3 ml 6h Active Nebulizer - Active Proventil HFA 108 (90 Base) MCG/ACT Inhalation every 4 hrs 2 puffs as needed 4h Jul, Active Symbicort 160-4.5 MCG/ACT Inhalation Twice a day 2 puffs 12h 24 Aug, 2015 Active Metformin HCl 500 MG TAKE TWO TABLETS BY MOUTH TWICE DAILY WITH MEALS 90 Active Montelukast Sodium 10 MG TAKE ONE TABLET BY MOUTH ONCE DAILY IN THE EVENING 90 Active Carafate 1 GM Orally 4 times a day x 2 weeks then prn 1 tablet on an empty stomach Active Blood Glucose Monitor System w/Device DX- E 11.65 2 times a day- 3 times weekly. test blood sugar Nov, Active Blood Glucose Test - and lancets. DX E11.65 2 times a day- 3 times weekly. test blood sugar Nov, Active Aspir-81 81 MG Orally Once a day 1 tablet 24h Active Dexilant 60 MG TAKE ONE CAPSULE BY MOUTH ONCE DAILY 90 Active Crestor 10 MG Orally Once a day 1 tablet 24h Active Trazodone HCl 150 MG orally at night as needed for sleep 0.5 tablet 30 days Active Cyclobenzaprine HCl 10 MG TAKE ONE TABLET BY MOUTH THREE TIMES DAILY NEEDED (MUST HAVE APPOINTMENT FOR REFILL) 30 Active Citalopram Hydrobromide 20 MG Orally Once a day 1.5 tablets 24h 30 days Active Seroquel 200 MG Orally at night 1 tablet Dec, 30 days Active Metformin HCl 1000 MG Orally Twice a day 1 tablet with meals 12h 90 days Active RESULTS No Results PROCEDURES [...]
--- OUTSIDE RECORDS SUMMARY | 2018-04-03 14:45 | XMS REPORT ---
Author Author KINJAL DORIS [facility] Address [facility] [place] [address] Care Team Providers Care Sap Project Manager Name Role Phone DORIS LAYTON Unavailable PROBLEMS Type Condition ICD9-CM Code CFR23-DP Code Onset Dates Condition Status SNOMED Code Problem Enlarged lymph node R59.9 Active 10975115 Problem Hyperlipidemia, unspecified hyperlipidemia type E78.5 Active 42293474 Problem Tear of right rotator cuff, unspecified tear extent M75.101 Active 353873510 Problem Other chronic pain G89.29 Active 28519150 Problem Internal hemorrhoids K64.8 Active 65618017 Problem Nocturnal hypoxia G47.34 Active 042986728 Problem Panlobular emphysema J43.1 Active 7439326 Problem Hyperplastic colonic polyp, unspecified part of colon K63.5 Active 972706578 Problem Non-seasonal allergic rhinitis due to other allergic trigger J30.89 Active 84263257 Problem Mood disorder F39 Active 15060814 Problem Bipolar disorder, unspecified F31.9 Active 07641544 Problem Uncontrolled type 2 diabetes mellitus with hyperglycemia, without long -term current use of insulin E11.65 Active 299474232 Problem GERD with esophagitis K21.0 Active 511550997 Problem Other osteoarthritis of spine, cervical region M47.892 Active 494275435 Problem Hiatal hernia K44.9 Active 62731003 Problem External hemorrhoids K64.4 Active 82313172 Problem Leukocytosis D72.829 Active 182441129 Problem Hyperlipidemia E78.5 Active 57170518 Problem History of CT (myocardial infarction) I25.2 Active 284786232 Problem Neuropathy G62.9 Active 918193126 Problem Other chronic gastritis without hemorrhage K29.50 Active 0119913 Problem Low back pain M54.5 Active 691712788 Problem Tobacco use Z72.0 Active 969767852 ALLERGIES No Information ENCOUNTERS Encounter Location Date Diagnosis [facility] [id number] [address] Jan, [facility] [address] [address] Dec, [facility] [address] [address] Dec, [facility] [address] [address] Dec, [facility] [id number] [place] [address] 20044- 6004 Dec, [facility] [id number] [place] [address] 15045- 1507 Dec, Mood disorder F39 [facility] [id number] [place] [address] 96637- 6910 Nov, Bipolar disorder, unspecified F31.9 [facility] [id number] [place] [address] 24011- 6169 Nov, [facility] [address] [address] Nov, Pain in left knee M25.562 ; Other chronic pain G89.29 ; Hyperlipidemia E78.5 ; Leukocytosis D72.829 ; Other osteoarthritis of spine, cervical region M47.892 ; Tobacco use Z72.0 and Uncontrolled type 2 diabetes mellitus with hyperglycemia, without long-term current use of insulin E11.65 [facility] [address] [address] Nov, [facility] [address] [address] 0604 Nov, [facility] [address] [address] 34[address] October, [facility] [address] [address] 5[address] October, Low back pain M54.5 [facility] [address] [address] 7105 Sep, [facility] [id number] [place] [address] 79094- 2780 Sep, [facility] [id number] [place] [address] 55984- 5470 Sep, Leukocytosis D72.829 [facility] [address] 29[address]- 4738 Sep, [facility] [id number] [place] [address] 71409- 5562 Sep, [facility] [id number] [place] [address] 08302- 9521 Sep, [facility] [id number] [place] [address] 79856- 8398 Aug, Low back pain M54.5 [facility] [id number] [place] [address] 24995- 4556 Aug, Bipolar disorder, unspecified F31.9 [facility] [id number] [place] [address] 73721- 5925 Aug, [facility] [id number] [place] [address] 02791- 1544 Aug, [facility] [id number] [place] [address] 07641- 2830 Aug, Uncontrolled type 2 diabetes mellitus with hyperglycemia, without long-term current use of insulin E11.65 ; Non-healing surgical wound, initial encounter T81.89XA ; Cellulitis of abdominal wall L03.311 ; Hyperlipidemia E78.5 ; Chronic obstructive pulmonary disease, unspecified COPD type J44.9 and Tobacco use Z72.0 [facility] [id number] [place] [address] 91758- 2984 Aug, [facility] [id number] [place] [address] 16167- 5986 Jul, [facility] [address] [address] 7842 Jul, [facility] [id number] [place] [address] 57692- 4391 Jul, Type 2 diabetes mellitus 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, 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 [facility] [id number] [place] [address] 22126- 9796 Jun, Bipolar disorder, unspecified F31.9 [facility] [id number] [place] [address] 57294- 9524 Jun, [facility] [id number] [place] [address] 97330- 7704 Jun, Bipolar disorder, unspecified F31.9 [facility] [id number] [place] [address] 87112- 5255 Jun, Mood disorder F39 [facility] [id number] [place] [address] 38004- 6987 Jun, [facility] [id number] [place] [address] 42382- 4615 May, Fissure in skin of foot R23.4 ; Callus of foot L84 and Type 2 diabetes mellitus 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, unspecified penitentiary insulin use status E11.40 [facility] [id number] [place] [address] 99267- 4482 May, Mood disorder F39 [facility] [address] [address] 84[address] Apr, [facility] [id number] [place] [address] 35932- 0364 Apr, Cough R05 and Tobacco use Z72.0 [place] [id number] [place] [address] 04589- 8465 Apr, Cough R05 and Tobacco use Z72.0 [place] [id number] [address] 1263 Apr, Mood disorder F39 [facility] [id number] [place] [address] 29101- 0603 Apr, Low back pain M54.5 [facility] [id number] [place] [address] 41562- 7892 Apr, Uncontrolled type 2 diabetes mellitus with hyperglycemia, without long-term current use of insulin E11.65 [facility] [id number] [place] [address] 26993- 4679 Apr, Uncontrolled type 2 diabetes mellitus with hyperglycemia, without long-term current use of insulin E11.65 [facility] [id number] [place] [address] 96195- 3468 Mar, Bipolar disorder, unspecified F31.9 [facility] [id number] [place] [address] 20476- 7742 Mar, [facility] [id number] [place] [address] 31250- 7099 Mar, Bipolar disorder, unspecified F31.9 [facility] [id number] [place] [address] 13482- 8955 Mar, Mood disorder F39 [facility] [id number] [place] [address] 50015- 9757 Feb, [facility] [id number] [place] [address] 09149- 5701 Feb, [facility] [id number] [place] [address] 72130- 6614 Feb, [facility] [id number] [place] [address] 64123- 8109 Feb, Bipolar disorder, unspecified F31.9 [facility] [address] [address] 4742 Feb, Uncontrolled type 2 diabetes mellitus with hyperglycemia, without long-term current use of insulin E11.65 ; Encounter for immunization Z23 ; Vasovagal syncope R55 and Low back pain M54.5 [place] [address] [address]- 6817 Jan, Bipolar disorder, unspecified F31.9 [place] [address] 60079- 8721 Jan, [place] [address] 13659- 2579 Jan, Fatigue, unspecified type R53.83 ; Nocturnal hypoxia G47.34 ; Leukocytosis D72.829 ; Other chronic gastritis without hemorrhage K29.50 ; Uncontrolled type 2 diabetes mellitus with hyperglycemia, without long-term current use of insulin E11.65 ; Alternating constipation and diarrhea R19.8 and Chronic obstructive pulmonary disease, unspecified COPD type J44.9 [place] [address] 18940- 6825 Jan, [place] [address] 78710- 0510 Jan, Leukocytosis D72.829 [place] [address] 22878- 1388 Jan, Mood disorder F39 [place] [address] 88834- 4911 Dec, Bipolar disorder, unspecified F31.9 [facility] [address] 89218- 9299 Dec, [facility] [id number] [place] [address] 42531 -6038 Dec, Acute gastritis without bleeding K29.00 [place] [address] 87548- 3111 Dec, Leukocytosis D72.829 [place] [address] 91038- 7638 Dec, [place] [id number] [place] [address] 39408- 7196 Dec, Dental examination Z01.20 [place] [id number] [place] [address] 25139- 3104 Dec, [place] [id number] [place] [address] 54990- 9627 Dec, Leukocytosis D72.829 [place] [id number] [place] [address] 88780- 3962 Dec, Uncontrolled type 2 diabetes mellitus with hyperglycemia, without long-term current use of insulin E11.65 [place] [id number] [place] [address] 39789- 0762 Nov, Dental examination Z01.20 [place] [id number] [place] [address] 59186- 6384 Nov, [facility] [id number] [place] [address] 21220- 4295 Nov, Major depressive disorder, recurrent episode, moderate F33.1 [place] [id number] [place] [address] 55779- 8954 Nov, Leukocytosis D72.829 [place] [id number] [place] [address] 64495- 0518 Nov, Mood disorder F39 [place] [id number] [place] [address] 22536- 7840 Nov, Other osteoarthritis of spine, cervical region M47.892 and Uncontrolled type 2 diabetes mellitus with hyperglycemia, without long-term current use of insulin E11.65 [place] [id number] [place] [address] 89083- 1607 Nov, Leukocytosis D72.829 and Elevated serum glucose R73.9 [place] [id number] [place] [address] 31535- 2323 October, Elevated serum glucose R73.9 [place] [address] [address]- 9759 October, Mood disorder F39 [facility] [id number] [place] [address] 08721- 7270 Sep, Major depressive disorder, recurrent episode, moderate F33.1 [facility] [address] [address]- 1840 Sep, Mood disorder F39 [facility] [address] [address]- 7673 Aug, [facility] [id number] [place] [address] 71956- 4263 Jul, Major depressive disorder, recurrent episode, moderate F33.1 [facility] [address] [address]- 0302 Jul, Mood disorder F39 [facility] [id number] [place] [address] 80010- 8455 Jul, [facility] [address] [address]- 1739 Jul, History of CT (myocardial infarction) I25.2 ; Hyperlipidemia E78.5 ; Prediabetes R73.09 ; Chronic obstructive pulmonary disease, unspecified COPD type J44.9 and Tobacco use Z72.0 [facility] [address] [address]- 9384 Jun, [facility] [address] [address]- 9073 Jun, Mood disorder F39 [facility] [address] [address]- 8830 Jun, [facility] [address] [address]- 2673 May, Major depressive disorder, recurrent episode, moderate F33.1 and Primary insomnia F51.01 [facility] [address] [address]- 1764 15 May, 2016 Mood disorder F39 [facility] [id number] [place] [address] 89785- 5398 Apr, [facility] [id number] [place] [address] 82870- 8575 Apr, Mood disorder F39 [facility] [id number] [place] [address] 20274- 1779 Apr, [facility] [id number] [place] [address] 97565- 4162 Apr, [place] [id number] [place] [address] 21955- 9760 Apr, Chronic obstructive pulmonary disease, unspecified COPD type J44.9 and Non-seasonal allergic rhinitis due to other allergic trigger J30.89 [place] [id number] [place] [address] 08656- 7217 Apr, Mood disorder F39 [place] [id number] [place] [address] 02196- 3234 10 Apr, 2016 Major depressive disorder, recurrent episode, moderate F33.1 and PTSD (post-traumatic stress disorder) F43.10 [place] [id number] [place] [address] 09224- 1366 07 Apr, 2016 [place] [id number] [place] [address] 67638- 3681 Apr, [place] [id number] [place] [address] 37013- 1934 04 Apr, 2016 Chest pain, unspecified type R07.9 ; Chronic obstructive pulmonary disease, unspecified COPD type J44.9 ; Hyperlipidemia, unspecified hyperlipidemia type E78.5 and Tobacco use Z72.0 [facility] [address] [place] [address] 59316- 9839 Mar, Mood disorder F39 [facility] [id number] [place] [address] 40248- 5217 Mar, Mood disorder F39 [place] [id number] [place] [address] 49408- 0745 Mar, Other osteoarthritis of spine, cervical region M47.892 [place] [address] 54078- 8096 Mar, Tear of right rotator cuff, unspecified tear extent M75.101 [place] [address] 69645- 7008 Mar, [place] [address] 83523- 2207 Mar, Bipolar II disorder F31.81 [place] [address] 70649- 2102 Mar, [place] [address] 40275- 7241 Feb, Impingement syndrome of right shoulder M75.41 ; Tear of right rotator cuff, unspecified tear extent M75.101 and Loose body in right elbow M24.021 [place] [address] 51085- 0003 Jan, [place] [id number] [place] [address] 32047- 5605 Jan, [place] [address] 50782- 9601 Jan, Prediabetes R73.09 ; Other chronic pain G89.29 and Pain in right shoulder M25.511 [place] [address] 18222- 5840 Dec, [place] [address] 94328- 3114 Dec, Heartburn R12 and Chest discomfort R07.89 [place] [address] 45365- 5139 Dec, Impingement syndrome of right shoulder M75.41 and 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, 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 [place] [id number] [place] [address] 05938- 6178 Nov, [place] [id number] [place] [address] 89641- 0340 Nov, Leukocytosis D72.829 [place] [id number] [place] [address] 14761- 1745 Nov, [place] [id number] [place] [address] 47324- 8874 Nov, Enlarged lymph node R59.9 ; Chronic obstructive pulmonary disease, unspecified COPD type J44.9 ; Low back pain M54.5 ; Neuropathy G62.9 and Closed nondisplaced fracture of sternal end of right clavicle, sequela S42.017S [place] [id number] [place] [address] 99417- 1190 October, [place] [id number] [place] [address] 66036- 7743 October, [place] [id number] [place] [address] 48513- 1284 Sep, [place] [id number] [place] [address] 42028- 4247 Aug, Double vision H53.2 ; Occipital headache R51 ; Chronic obstructive pulmonary disease, unspecified COPD type J44.9 and Gastroesophageal reflux disease, esophagitis presence not specified K21.9 [place] [id number] [place] [address] 83568- 9502 Aug, [place] [id number] [place] [address] 41306- 1637 Jul, Enlarged lymph node in neck R59.0 [place] [id number] [place] [address] 96815- 7158 12 Jul, 2015 [place] [address] [place] [address] 40138- 4024 10 Jul, 2015 Chronic obstructive pulmonary disease, unspecified COPD type J44.9 ; Tobacco use Z72.0 ; Leukocytosis D72.829 ; Hyperlipidemia E78.5 and Neck abscess L02.11 [place] [id number] [place] [address] 88949- 9731 14 Jun, 2015 Shortness of breath R06.02 [place] [address] 63025- 8386 17 May, 2015 Leukocytosis D72.829 and Shortness of breath R06.02 [place] [address] 82362- 3337 09 May, 2015 Low back pain M54.5 ; Hyperlipidemia E78.5 ; Leukocytosis D72.829 ; Other osteoarthritis of spine, cervical region M47.892 and Shortness of breath R06.02 [place] [id number] [place] [address] 91920- 5304 18 Feb, 2015 Chest pain 786.50 ; Tobacco use 305.1 ; Back pain 724.5 and Hyperlipemia 272.4 [place] [id number] [place] [address] 96072- 6452 Jan, [place] [id number] [place] [address] 09984- 5296 Jan, Chronic low back pain 724.2 and Degenerative arthritis of cervical spine 721.0 [place] [id number] [place] [address] 22529- 9375 Jan, Chronic low back pain 724.2 and Neck pain 723.1 [place] [id number] [place] [address] 92178- 4796 Dec, Chronic low back pain 724.2 and Neck pain 723.1 [place] [address] 72848- 1157 Nov, Chest pain 786.50 ; Dyspnea 786.09 ; Tobacco use 305.1 and Back pain 724.5 [place] [id number] [place] [address] 78819- 9387 Nov, [place] [id number] [place] [address] 70975- 1265 04 Nov, 2014 Disability examination V68.01 and Muscle pain 729.1 [place] [address]- [address], [address] (myocardial infarction) 412 ; Hyperlipidemia LDL goal < 100 272.4 ; Leukocytosis 288.60 and Glucose intolerance (pre-diabetes ) 790.29 [place] [id number] [place] [address] 43238- 3825 October, Chest pain 786.50 ; Chronic low back pain 724.2 ; History of CT (myocardial infarction) 412 and Neuropathy 355.[address] [place] [address] 80688- 2886 October, Chronic low back pain 724.2 ; Chest pain 786.50 ; History of CT (myocardial infarction) 412 and Neuropathy 355.9 IMMUNIZATIONS No Known Immunizations SOCIAL HISTORY Never Assessed REASON FOR VISIT Referral PLAN OF CARE VITAL SIGNS MEDICATIONS Unknown [...]
--- OUTSIDE RECORDS SUMMARY | 2018-04-03 14:45 | XMS REPORT ---
Author Author KINJAL DORIS [facility] Address [facility] [place] [address] Care Team Providers Care Winding Inspector Name Role Phone DORIS LAYTON Unavailable PROBLEMS Type Condition ICD9-CM Code VTX04-ST Code Onset Dates Condition Status SNOMED Code Problem Enlarged lymph node R59.9 Active 17571699 Problem Hyperlipidemia, unspecified hyperlipidemia type E78.5 Active 59927658 Problem Tear of right rotator cuff, unspecified tear extent M75.101 Active 545494779 Problem Other chronic pain G89.29 Active 15871528 Problem Internal hemorrhoids K64.8 Active 35660270 Problem Nocturnal hypoxia G47.34 Active 548685329 Problem Panlobular emphysema J43.1 Active 1032229 Problem Hyperplastic colonic polyp, unspecified part of colon K63.5 Active 461042396 Problem Non-seasonal allergic rhinitis due to other allergic trigger J30.89 Active 52562508 Problem Mood disorder F39 Active 52990275 Problem Bipolar disorder, unspecified F31.9 Active 69956847 Problem Uncontrolled type 2 diabetes mellitus with hyperglycemia, without long -term current use of insulin E11.65 Active 831859491 Problem GERD with esophagitis K21.0 Active 725887283 Problem Other osteoarthritis of spine, cervical region M47.892 Active 739335169 Problem Hiatal hernia K44.9 Active 57260159 Problem External hemorrhoids K64.4 Active 42857228 Problem Leukocytosis D72.829 Active 628534135 Problem Hyperlipidemia E78.5 Active 51230078 Problem History of MS (myocardial infarction) I25.2 Active 425988069 Problem Neuropathy G62.9 Active 672946031 Problem Other chronic gastritis without hemorrhage K29.50 Active 8284867 Problem Low back pain M54.5 Active 996444191 Problem Tobacco use Z72.0 Active 018019170 ALLERGIES No Information ENCOUNTERS Encounter Location Date Diagnosis [facility] [id number] [address] Jun, [facility] [address] [address] Jan, [facility] [address] [address] Dec, Bipolar disorder, unspecified F31.9 [facility] [id number] [place] [address] 31951- 4281 Dec, [facility] [id number] [place] [address] 63322- 9957 Dec, [facility] [id number] [place] [address] 04654- 0836 Dec, [facility] [id number] [place] [address] 26934- 4029 Dec, Mood disorder F39 [facility] [id number] [place] [address] 85180- 7017 Nov, Bipolar disorder, unspecified F31.9 [facility] [address] [address] Nov, [facility] [id number] [place] [address] 73537- 9590 Nov, Pain in left knee M25.562 ; Other chronic pain G89.29 ; Hyperlipidemia E78.5 ; Leukocytosis D72.829 ; Other osteoarthritis of spine, cervical region M47.892 ; Tobacco use Z72.0 and Uncontrolled type 2 diabetes mellitus with hyperglycemia, without long-term current use of insulin E11.65 [facility] [address] [address] 8[address] Nov, [facility] [id number] [place] [address] 196502- 1635 Nov, [facility] [address] [address] October, [facility] [id number] [address] 4218 October, Low back pain M54.5 [facility] [id number] [place] [address] 68801- 5198 Sep, [facility] [id number] [place] [address] 19371- 6614 Sep, [facility] [id number] [place] [address] 72049- 7034 Sep, Leukocytosis D72.829 [facility] [id number] [place] [address] 14008- 7896 Sep, [facility] [id number] [place] [address] 42124- 3351 Sep, [facility] [id number] [place] [address] 17767- 9903 Sep, [facility] [id number] [place] [address] 77089- 3304 Aug, Low back pain M54.5 [facility] [id number] [place] [address] 95483- 9888 Aug, Bipolar disorder, unspecified F31.9 [facility] [id number] [place] [address] 17505- 3579 Aug, [facility] [id number] [place] [address] 40968- 9429 Aug, [facility] [id number] [place] [address] 31672- 9514 Aug, Uncontrolled type 2 diabetes mellitus with hyperglycemia, without long-term current use of insulin E11.65 ; Non-healing surgical wound, initial encounter T81.89XA ; Cellulitis of abdominal wall L03.311 ; Hyperlipidemia E78.5 ; Chronic obstructive pulmonary disease, unspecified COPD type J44.9 and Tobacco use Z72.0 [facility] [id number] [place] [address] 59492- 9927 Aug, [facility] [address] [address] 8041 Jul, [facility] [address] [address] [address] Jul, [facility] [address] [address]- 6643 Jul, Type 2 diabetes mellitus 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, unspecified 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 [facility] [address] [address] 8444 Jun, Bipolar disorder, unspecified F31.9 [facility] [id number] [address] 8092 Jun, [facility] [address] [address] 8872 Jun, Bipolar disorder, unspecified F31.9 [facility] [address] [address]- 8194 Jun, Mood disorder F39 [facility] [id number] [place] [address] 32242- 7274 Jun, [facility] [address] [address] 5879 May, Fissure in skin of foot R23.4 ; Callus of foot L84 and Type 2 diabetes mellitus 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, unspecified 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 [facility] [address] [address] 7800 May, Mood disorder F39 [facility] [address] [address] [address] Apr, [facility] [address] [address] 9[address] Apr, Cough R05 and Tobacco use Z72.0 [facility] [id number] [place] [address] 72308- 3221 Apr, Cough R05 and Tobacco use Z72.0 [facility] [id number] [place] [address] 68285- 1771 Apr, Mood disorder F39 [facility] [id number] [place] [address] 79165- 5462 Apr, Low back pain M54.5 [facility] [id number] [place] [address] 11169- 7388 Apr, Uncontrolled type 2 diabetes mellitus with hyperglycemia, without long-term current use of insulin E11.65 [facility] [id number] [place] [address] 03552- 3136 Apr, Uncontrolled type 2 diabetes mellitus with hyperglycemia, without long-term current use of insulin E11.65 [facility] [id number] [place] [address] 93949- 6674 Mar, Bipolar disorder, unspecified F31.9 [facility] [id number] [place] [address] 11376- 5285 Mar, [facility] [id number] [place] [address] 73258- 7939 Mar, Bipolar disorder, unspecified F31.9 [facility] [id number] [place] [address] 90391- 2169 Mar, Mood disorder F39 [facility] [id number] [place] [address] 35541- 6039 Feb, [facility] [id number] [place] [address] 93858- 0772 Feb, [facility] [id number] [place] [address] 03245- 8550 Feb, [facility] [id number] [place] [address] 14180- 7643 Feb, Bipolar disorder, unspecified F31.9 [facility] [id number] [place] [address] 55353- 8852 08 Feb, 2017 Uncontrolled type 2 diabetes mellitus with hyperglycemia, without long-term current use of insulin E11.65 ; Encounter for immunization Z23 ; Vasovagal syncope R55 and Low back pain M54.5 [facility] [id number] [place] [address] 84202- 8872 Jan, Bipolar disorder, unspecified F31.9 [facility] [address] [address]- [address] Jan, [facility] [address] 65740- 9912 Jan, Fatigue, unspecified type R53.83 ; Nocturnal hypoxia G47.34 ; Leukocytosis D72.829 ; Other chronic gastritis without hemorrhage K29.50 ; Uncontrolled type 2 diabetes mellitus with hyperglycemia, without long-term current use of insulin E11.65 ; Alternating constipation and diarrhea R19.8 and Chronic obstructive pulmonary disease, unspecified COPD type J44.9 [facility] [address] 59150- 6431 Jan, [facility] [address] 25489- 9445 Jan, Leukocytosis D72.829 [facility] [id number] [place] [address] 98882- 1788 Jan, Mood disorder F39 [facility] [id number] [place] [address] 61656- 6392 Dec, Bipolar disorder, unspecified F31.9 [facility] [id number] [place] [address] 60984- 7532 Dec, [facility] [id number] [place] [address] 37579 -7029 Dec, Acute gastritis without bleeding K29.00 [address] [facility] [address] 39890- 7568 Dec, Leukocytosis D72.829 [facility] [address] [address]- 7554 Dec, [facility] [id number] [place] [address] 26050- 2716 Dec, Dental examination Z01.20 [facility] [id number] [place] [address] 39966- 4688 Dec, [facility] [id number] [place] [address] 83629- 1099 Dec, Leukocytosis D72.829 [address] [id number] [place] [address] 92843- 7197 Dec, Uncontrolled type 2 diabetes mellitus with hyperglycemia, without long-term current use of insulin E11.65 [facility] [id number] [place] [address] 15982- 8967 Nov, Dental examination Z01.20 [facility] [id number] [place] [address] 60393- 5447 Nov, [facility] [id number] [place] [address] 51999- 8945 Nov, Major depressive disorder, recurrent episode, moderate F33.1 [facility] [id number] [place] [address] 51609- 8993 Nov, Leukocytosis D72.829 [address] [id number] [place] [address] 29675- 7536 Nov, Mood disorder F39 [address] [facility] [id number] [place] [address] 87502- 5243 Nov, Other osteoarthritis of spine, cervical region M47.892 and Uncontrolled type 2 diabetes mellitus with hyperglycemia, without long-term current use of insulin E11.65 [address] [facility] [address] [address]- 7010 Nov, Leukocytosis D72.829 and Elevated serum glucose R73.9 [facility] [address] [address]- 1588 October, Elevated serum glucose R73.9 [facility] [address] [address]- 3303 October, Mood disorder F39 [facility] [address] [address]- 3441 Sep, Major depressive disorder, recurrent episode, moderate F33.1 [facility] [address] [address]- 7552 Sep, Mood disorder F39 [facility] [id number] [place] [address] 32686- 8602 Aug, [facility] [id number] [place] [address] 25834- 1772 Jul, Major depressive disorder, recurrent episode, moderate F33.1 [facility] [address] [address]- 6961 Jul, Mood disorder F39 [facility] [id number] [place] [address] 13227- 0795 Jul, [facility] [address] [address]- 1175 Jul, History of MS (myocardial infarction) I25.2 ; Hyperlipidemia E78.5 ; Prediabetes R73.09 ; Chronic obstructive pulmonary disease, unspecified COPD type J44.9 and Tobacco use Z72.0 [facility] [address] [address]- 0043 Jun, [facility] [address] [address]- 1232 Jun, Mood disorder F39 [facility] [address] [address]- 1203 Jun, [facility] [id number] [place] [address] 27902- 9642 May, Major depressive disorder, recurrent episode, moderate F33.1 and Primary insomnia F51.01 [facility] [id number] [place] [address] 70056- 5012 May, Mood disorder F39 [facility] [id number] [place] [address] 08090- 3315 Apr, [facility] [id number] [place] [address] 01061- 4934 Apr, Mood disorder F39 [facility] [id number] [place] [address] 59757- 1245 Apr, [facility] [id number] [place] [address] 04685- 3418 Apr, [facility] [id number] [place] [address] 85442- 5993 Apr, Chronic obstructive pulmonary disease, unspecified COPD type J44.9 and Non-seasonal allergic rhinitis due to other allergic trigger J30.89 [facility] [address] [place] [address] 63478- 7310 Apr, Mood disorder F39 [facility] [id number] [place] [address] 15130- 4514 Apr, Major depressive disorder, recurrent episode, moderate F33.1 and PTSD (post-traumatic stress disorder) F43.10 [facility] [id number] [place] [address] 01470- 8132 Apr, [facility] [id number] [place] [address] 52612- 2370 Apr, [facility] [id number] [place] [address] 72850- 9412 04 Apr, 2016 Chest pain, unspecified type R07.9 ; Chronic obstructive pulmonary disease, unspecified COPD type J44.9 ; Hyperlipidemia, unspecified hyperlipidemia type E78.5 and Tobacco use Z72.0 [address] [id number] [place] [address] 23855- 6643 Mar, Mood disorder F39 [facility] [id number] [place] [address] 54258- 0142 Mar, Mood disorder F39 [facility] [address] [place] [address] 60863- 6166 Mar, Other osteoarthritis of spine, cervical region M47.892 [facility] [id number] [place] [address] 93040- 2701 Mar, Tear of right rotator cuff, unspecified tear extent M75.101 [facility] [id number] [place] [address] 22063- 7242 Mar, [facility] [id number] [place] [address] 92162- 8850 Mar, Bipolar II disorder F31.81 [facility] [id number] [place] [address] 33611- 3152 Mar, [facility] [id number] [place] [address] 28366- 6495 Feb, Impingement syndrome of right shoulder M75.41 ; Tear of right rotator cuff, unspecified tear extent M75.101 and Loose body in right elbow M24.021 [facility] [address] [address]- 5008 Jan, [facility] [id number] [place] [address] 18754- 9310 Jan, [facility] [address] [place] [address] 44076- 6241 Jan, Prediabetes R73.09 ; Other chronic pain G89.29 and Pain in right shoulder M25.511 [facility] [id number] [place] [address] 96575- 4561 Dec, [facility] [id number] [place] [address] 21048- 5823 Dec, Heartburn R12 and Chest discomfort R07.89 [facility] [id number] [place] [address] 89121- 6856 Dec, Impingement syndrome of right shoulder M75.41 and 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, 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 [facility] [id number] [place] [address] 87902- 3631 Nov, [facility] [address] 74085- 6004 Nov, Leukocytosis D72.829 [address] [address] 02521- 7639 Nov, [facility] [id number] [place] [address] 41750- 7379 Nov, Enlarged lymph node R59.9 ; Chronic obstructive pulmonary disease, unspecified COPD type J44.9 ; Low back pain M54.5 ; Neuropathy G62.9 and Closed nondisplaced fracture of sternal end of right clavicle, sequela S42.017S [facility] [address] 00922- 2966 October, [facility] [id number] [place] [address] 02091- 3087 October, [facility] [id number] [place] [address] 85701- 4783 Sep, [facility] [id number] [place] [address] 47952- 9017 Aug, Double vision H53.2 ; Occipital headache R51 ; Chronic obstructive pulmonary disease, unspecified COPD type J44.9 and Gastroesophageal reflux disease, esophagitis presence not specified K21.9 [facility] [id number] [place] [address] 62133- 6851 Aug, [facility] [address] 54621- 0137 Jul, Enlarged lymph node in neck R59.0 [facility] [id number] [place] [address] 89776- 9985 Jul, [facility] [address] 38378- 1244 10 Jul, 2015 Chronic obstructive pulmonary disease, unspecified COPD type J44.9 ; Tobacco use Z72.0 ; Leukocytosis D72.829 ; Hyperlipidemia E78.5 and Neck abscess L02.11 [facility] [address] 69925- 0690 Jun, Shortness of breath R06.02 [facility] [address] 56192- 4412 May, Leukocytosis D72.829 and Shortness of breath R06.[address] 72363- 2891 May, Low back pain M54.5 ; Hyperlipidemia E78.5 ; Leukocytosis D72.829 ; Other osteoarthritis of spine, cervical region M47.892 and Shortness of breath R06.02 [facility] [address] 09971- 4558 Feb, Chest pain 786.50 ; Tobacco use 305.1 ; Back pain 724.5 and Hyperlipemia 272.[id number] [place] [address] 08018- 6170 Jan, [address] 94221- 0674 Jan, Chronic low back pain 724.2 and Degenerative arthritis of cervical spine 721.[address] 89268- 9063 Jan, Chronic low back pain 724.2 and Neck pain 723.[address] 03772- 2515 Dec, Chronic low back pain 724.2 and Neck pain 723.[id number] [place] [address] 85594- 9283 Nov, Chest pain 786.50 ; Dyspnea 786.09 ; Tobacco use 305.1 and Back pain 724.[address] 43305- 2485 Nov, [address] 66550- 5387 Nov, Disability examination V68.01 and Muscle pain 729.[address] 38479- 4805 October, History of MS (myocardial infarction) 412 ; Hyperlipidemia LDL goal < 100 272.4 ; Leukocytosis 288.60 and Glucose intolerance (pre-diabetes ) 790.[address] 98353- 6020 October, Chest pain 786.50 ; Chronic low back pain 724.2 ; History of MS (myocardial infarction) 412 and Neuropathy 355.[address] 29930- 1170 October, Chronic low back pain 724.2 ; Chest pain 786.50 ; History of MS (myocardial infarction) 412 and Neuropathy 355.9 IMMUNIZATIONS No Known Immunizations SOCIAL HISTORY Never Assessed REASON FOR VISIT FYI only PLAN OF CARE VITAL SIGNS MEDICATIONS Unknown [...]
--- OUTSIDE RECORDS SUMMARY | 2018-04-03 14:46 | XMS REPORT ---
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 Name Role Phone DORIS LAYTON Unavailable PROBLEMS Type Condition ICD9-CM Code ICU69-FP Code Onset Dates Condition Status SNOMED Code Problem Enlarged lymph node R59.9 Active 79505374 Problem Hyperlipidemia, unspecified hyperlipidemia type E78.5 Active 07281125 Problem Tear of right rotator cuff, unspecified tear extent M75.101 Active 568875318 Problem Other chronic pain G89.29 Active 92450531 Problem Internal hemorrhoids K64.8 Active 14055336 Problem Nocturnal hypoxia G47.34 Active 103212157 Problem Panlobular emphysema J43.1 Active 6257323 Problem Hyperplastic colonic polyp, unspecified part of colon K63.5 Active 402266586 Problem Non-seasonal allergic rhinitis due to other allergic trigger J30.89 Active 26627200 Problem Mood disorder F39 Active 99783108 Problem Bipolar disorder, unspecified F31.9 Active 17249513 Problem Uncontrolled type 2 diabetes mellitus with hyperglycemia, without long -term current use of insulin E11.65 Active 527634553 Problem GERD with esophagitis K21.0 Active 497019234 Problem Other osteoarthritis of spine, cervical region M47.892 Active 556342727 Problem Hiatal hernia K44.9 Active 67097796 Problem External hemorrhoids K64.4 Active 41391541 Problem Leukocytosis D72.829 Active 222423037 Problem Hyperlipidemia E78.5 Active 64405808 Problem History of [place] (my[place] infarction) I25.2 Active 318461388 Problem Neuropathy G62.9 Active 868044725 Problem Other chronic gastritis without hemorrhage K29.50 Active 0789228 Problem Low back pain M54.5 Active 640350592 Problem Tobacco use Z72.0 Active 020363266 ALLERGIES Substance Reaction Event Type Date Status Incruse Ellipta Unknown Drug Allergy Aug, Active Tetracycline HCl nausea and vomiting Drug Allergy Aug, Active Spiriva HandiHaler Suicidal ideation Drug Allergy Aug, Active Ampicillin anaphylaxis Drug Allergy Aug, Active strawberries Unknown Non Drug Allergy Aug, Active penicillin anaphylaxis Non Drug Allergy Aug, Active ENCOUNTERS Encounter Location Date Diagnosis [facility] [address] [address] Jan, [facility] [id number] [place] [address] 00785- 8617 Dec, [facility] [address] [address] Dec, [facility] [id number] [place] [address] 28280- 1742 Dec, Mood disorder F39 [facility] [id number] [address] Nov, Bipolar disorder, unspecified F31.9 [facility] [address] [address] Nov, [facility] [id number] [address] Nov, Pain in left knee M25.562 ; Other chronic pain G89.29 ; Hyperlipidemia E78.5 ; Leukocytosis D72.829 ; Other osteoarthritis of spine, cervical region M47.892 ; Tobacco use Z72.0 and Uncontrolled type 2 diabetes mellitus with hyperglycemia, without long-term current use of insulin E11.65 [facility] [address] [address] 4207 Nov, [facility] [id number] [address] 4089 Nov, [facility] [address] [address]93 October, [facility] [address] [address] 9[address] October, Low back pain M54.5 [facility] [address] [address] 8076 Sep, [facility] [id number] [place] [address] 61352- 3268 Sep, [facility] [id number] [place] [address] 95177- 7363 Sep, Leukocytosis D72.829 [facility] [id number] [place] [address] 21412- 7210 Sep, [facility] [id number] [place] [address] 86914- 8587 Sep, [facility] [id number] [place] [address] 85871- 9981 Sep, [facility] [id number] [place] [address] 40408- 7883 Aug, Low back pain M54.5 [facility] [id number] [place] [address] 42576- 3667 Aug, Bipolar disorder, unspecified F31.9 [facility] [id number] [place] [address] 90765- 5374 Aug, [facility] [id number] [place] [address] 96822- 7143 Aug, [facility] [id number] [place] [address] 66706- 9231 Aug, Uncontrolled type 2 diabetes mellitus with hyperglycemia, without long-term current use of insulin E11.65 ; Non-healing surgical wound, initial encounter T81.89XA ; Cellulitis of abdominal wall L03.311 ; Hyperlipidemia E78.5 ; Chronic obstructive pulmonary disease, unspecified COPD type J44.9 and Tobacco use Z72.0 [facility] [id number] [place] [address] 61298- 1087 Aug, [facility] [id number] [place] [address] 33027- 0315 Jul, [facility] [address] [address] 6501 Jul, [facility] [id number] [place] [address] 398443- 4966 Jul, Type 2 diabetes mellitus 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, unspecified chcf insulin use status E11.40 [facility] [id number] [place] [address] 08926- 9331 Jun, Bipolar disorder, unspecified F31.9 [facility] [id number] [place] [address] 68909- 7196 Jun, [facility] [id number] [place] [address] 977543- 8351 Jun, Bipolar disorder, unspecified F31.9 [facility] [id number] [place] [address] 44006- 5512 Jun, Mood disorder F39 [facility] [id number] [place] [address] 05439- 5802 Jun, [facility] [id number] [place] [address] 78837- 6554 May, Fissure in skin of foot R23.4 ; Callus of foot L84 and Type 2 diabetes mellitus 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, unspecified chcf insulin use status E11.40 [facility] [address] [address] 2683 May, Mood disorder F39 [facility] [address] [address]- 4906 Apr, [facility] [id number] [place] [address] 72106- 8269 Apr, Cough R05 and Tobacco use Z72.0 [facility] [address] [place] [address] 13849- 1186 Apr, Cough R05 and Tobacco use Z72.0 [facility] [address], [place] [address]- 4449 Apr, Mood disorder F39 [facility] [id number] [place] [address] 55862- 5536 Apr, Low back pain M54.5 [facility] [address] [address]- 4966 Apr, Uncontrolled type 2 diabetes mellitus with hyperglycemia, without long-term current use of insulin E11.65 [facility] [address] [address] 2542 Apr, Uncontrolled type 2 diabetes mellitus with hyperglycemia, without long-term current use of insulin E11.65 [facility] [address] [address]- 4206 Mar, Bipolar disorder, unspecified F31.9 [facility] [id number] [place] [address] 67932- 4032 Mar, [facility] [id number] [place] [address] 52615- 5416 Mar, Bipolar disorder, unspecified F31.9 [facility] [id number] [place] [address] 81467- 6213 Mar, Mood disorder F39 [facility] [address] [address] 2546 Feb, [facility] [address] [address]- 2546 Feb, [facility] [address] [address] 2546 Feb, [facility] [id number] [place] [address] 54263- 2546 Feb, Bipolar disorder, unspecified F31.9 [facility] [address] [address]- 0818 Feb, Uncontrolled type 2 diabetes mellitus with hyperglycemia, without long-term current use of insulin E11.65 ; Encounter for immunization Z23 ; Vasovagal syncope R55 and Low back pain M54.5 [facility] [place] [address] 12150- 2241 Jan, Bipolar disorder, unspecified F31.9 [place] [address] 61199- 0657 Jan, [facility] [address] 46597- 3855 Jan, Fatigue, unspecified type R53.83 ; Nocturnal hypoxia G47.34 ; Leukocytosis D72.829 ; Other chronic gastritis without hemorrhage K29.50 ; Uncontrolled type 2 diabetes mellitus with hyperglycemia, without long-term current use of insulin E11.65 ; Alternating constipation and diarrhea R19.8 and Chronic obstructive pulmonary disease, unspecified COPD type J44.9 [place] [address] 37770- 3297 Jan, [facility] [address] 30990- 6721 Jan, Leukocytosis D72.829 [facility] [address] 51583- 0720 Jan, Mood disorder F39 [place] [address] 39420- 3446 Dec, Bipolar disorder, unspecified F31.9 [place] [address] 01742- 1788 Dec, [facility] [address] 40658 -0972 Dec, Acute gastritis without bleeding K29.00 [place] [address] 33753- 2157 Dec, Leukocytosis D72.829 [facility] [place] [address] 02094- 9303 Dec, [facility] [id number] [place] [address] 17567- 4816 Dec, Dental examination Z01.20 [facility] [id number] [place] [address] 520270- 1811 Dec, [facility] [id number] [place] [address] 41259- 2444 Dec, Leukocytosis D72.829 [facility] [id number] [place] [address] 17872- 9030 Dec, Uncontrolled type 2 diabetes mellitus with hyperglycemia, without long-term current use of insulin E11.65 [facility] [id number] [place] [address] 22329- 7145 Nov, Dental examination Z01.20 [facility] [id number] [place] [address] 47819- 2558 Nov, [facility] [id number] [place] [address] 13914- 9998 Nov, Major depressive disorder, recurrent episode, moderate F33.1 [address] [id number] [place] [address] 79306- 3948 Nov, Leukocytosis D72.829 [facility] [id number] [place] [address] 14356- 6174 Nov, Mood disorder F39 [facility] [id number] [place] [address] 10139- 5634 Nov, Other osteoarthritis of spine, cervical region M47.892 and Uncontrolled type 2 diabetes mellitus with hyperglycemia, without long-term current use of insulin E11.65 [facility] [id number] [place] [address] 00709- 9631 Nov, Leukocytosis D72.829 and Elevated serum glucose R73.9 [address] [address] [id number] [place] [address] 22040- 0557 October, Elevated serum glucose R73.9 [facility] [address], [place] [address]- 6659 October, Mood disorder F39 [facility] [address], [place] [address]- 2428 Sep, Major depressive disorder, recurrent episode, moderate F33.1 [facility] [address], [place] [address]- 1415 Sep, Mood disorder F39 [facility] [address], [place] [address]- 0401 Aug, [facility] [id number] [place] [address] 68289- 6561 Jul, Major depressive disorder, recurrent episode, moderate F33.1 [facility] [address], [place] [address]- 4780 Jul, Mood disorder F39 [facility] [address] [address]- 2290 Jul, [facility] [id number] [place] [address] 13319- 0759 Jul, History of [place] (my[place] infarction) I25.2 ; Hyperlipidemia E78.5 ; Prediabetes R73.09 ; Chronic obstructive pulmonary disease, unspecified COPD type J44.9 and Tobacco use Z72.0 [facility] [address], [place] [address]- 4047 Jun, [facility] [id number] [address]- 8655 Jun, Mood disorder F39 [facility] [address] [address]- 2738 Jun, [facility] [id number] [address]- 4390 May, Major depressive disorder, recurrent episode, moderate F33.1 and Primary insomnia F51.01 [facility] [address] [address]- 4803 15 May, 2016 Mood disorder F39 [facility] [id number] [place] [address] 81809- 7440 Apr, [facility] [id number] [place] [address] 70039- 7423 Apr, Mood disorder F39 [facility] [id number] [place] [address] 30248- 1600 Apr, [facility] [id number] [place] [address] 59929- 6121 Apr, [facility] [id number] [place] [address] 15035- 1528 Apr, Chronic obstructive pulmonary disease, unspecified COPD type J44.9 and Non-seasonal allergic rhinitis due to other allergic trigger J30.89 [facility] [id number] [place] [address] 17286- 6053 Apr, Mood disorder F39 [facility] [id number] [place] [address] 03727- 9958 Apr, Major depressive disorder, recurrent episode, moderate F33.1 and PTSD (post-traumatic stress disorder) F43.10 [place] [address] [address]- 1483 Apr, [facility] [id number] [place] [address] 00732- 7699 Apr, [facility] [id number] [place] [address] 84170- 3657 Apr, Chest pain, unspecified type R07.9 ; Chronic obstructive pulmonary disease, unspecified COPD type J44.9 ; Hyperlipidemia, unspecified hyperlipidemia type E78.5 and Tobacco use Z72.0 [facility] [id number] [place] [address] 72467- 1763 Mar, Mood disorder F39 [place] [id number] [place] [address] 65971- 3314 Mar, Mood disorder F39 [place] [address] 80691- 6325 Mar, Other osteoarthritis of spine, cervical region M47.892 [facility] [id number] [place] [address] 20796- 5895 Mar, Tear of right rotator cuff, unspecified tear extent M75.101 [facility] [id number] [place] [address] 35996- 0062 Mar, [place] [address] 13891- 6013 Mar, Bipolar II disorder F31.81 [place] [address] 09852- 6739 Mar, [facility] [id number] [place] [address] 47384- 0846 Feb, Impingement syndrome of right shoulder M75.41 ; Tear of right rotator cuff, unspecified tear extent M75.101 and Loose body in right elbow M24.021 [facility] [id number] [place] [address] 63642- 7051 Jan, [facility] [id number] [place] [address] 67544- 9468 Jan, [facility] [id number] [place] [address] 33108- 7813 Jan, Prediabetes R73.09 ; Other chronic pain G89.29 and Pain in right shoulder M25.511 [place] [address] 72492- 4217 Dec, [facility] [id number] [place] [address] 62625- 0047 Dec, Heartburn R12 and Chest discomfort R07.89 [place] [address] [place] [address]- 5032 Dec, Impingement syndrome of right shoulder M75.41 and 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, 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 [place] [address] [place] [address] 20845- 8701 Nov, [facility] [id number] [place] [address] 80872- 8314 Nov, Leukocytosis D72.829 [facility] [id number] [place] [address] 52026- 9865 Nov, [facility] [id number] [place] [address] 18377- 8226 Nov, Enlarged lymph node R59.9 ; Chronic obstructive pulmonary disease, unspecified COPD type J44.9 ; Low back pain M54.5 ; Neuropathy G62.9 and Closed nondisplaced fracture of sternal end of right clavicle, sequela S42.017S [facility] [id number] [place] [address] 46967- 3488 October, [facility] [id number] [place] [address] 59273- 0917 October, [facility] [id number] [place] [address] 37321- 5856 Sep, [facility] [id number] [place] [address] 52829- 4490 Aug, Double vision H53.2 ; Occipital headache R51 ; Chronic obstructive pulmonary disease, unspecified COPD type J44.9 and Gastroesophageal reflux disease, esophagitis presence not specified K21.9 [place] [id number] [place] [address] 04595- 4010 Aug, [place] [place] [id number] [place] [address] 80607- 9255 Jul, Enlarged lymph node in neck R59.0 [place] [id number] [place] [address] 39934- 7004 12 Jul, 2015 [place] [address] 35501- 5587 10 Jul, 2015 Chronic obstructive pulmonary disease, unspecified COPD type J44.9 ; Tobacco use Z72.0 ; Leukocytosis D72.829 ; Hyperlipidemia E78.5 and Neck abscess L02.11 [place] [address] 28517- 2031 14 Jun, 2015 Shortness of breath R06.02 [place] [address] 24224- 8328 17 May, 2015 Leukocytosis D72.829 and Shortness of breath R06.02 [place] [address] 28843- 4870 09 May, 2015 Low back pain M54.5 ; Hyperlipidemia E78.5 ; Leukocytosis D72.829 ; Other osteoarthritis of spine, cervical region M47.892 and Shortness of breath R06.02 [place] [id number] [place] [address] 10727- 3340 18 Feb, 2015 Chest pain 786.50 ; Tobacco use 305.1 ; Back pain 724.5 and Hyperlipemia 272.4 [place] [id number] [place] [address] 46893- 5623 Jan, [place] [address] 82508- 6356 Jan, Chronic low back pain 724.2 and Degenerative arthritis of cervical spine 721.0 [place] [id number] [place] [address] 14369- 9745 Jan, Chronic low back pain 724.2 and Neck pain 723.1 [place] [id number] [place] [address] 98364- 2587 Dec, Chronic low back pain 724.2 and Neck pain 723.1 [address] [address] [place] [address]- 4396 Nov, Chest pain 786.50 ; Dyspnea 786.09 ; Tobacco use 305.1 and Back pain 724.5 [place] [address] [place] [address] 15583- 9453 Nov, [facility] [id number] [place] [address] 35181- 2343 Nov, Disability examination V68.01 and Muscle pain 729.1 [place] [id number] [place] [address] 98403- 3855 October, History of [place] (my[place] infarction) 412 ; Hyperlipidemia LDL goal < 100 272.4 ; Leukocytosis 288.60 and Glucose intolerance (pre-diabetes ) 790.29 [place] [id number] [place] [address] 73040- 3832 October, Chest pain 786.50 ; Chronic low back pain 724.2 ; History of [place] (my[place] infarction) 412 and Neuropathy 355.9 [place] [address] [place] [address] 91129- 1424 October, Chronic low back pain 724.2 ; Chest pain 786.50 ; History of [place] ([place] infarction) 412 and Neuropathy 355.9 IMMUNIZATIONS No Known Immunizations SOCIAL HISTORY Never Assessed REASON FOR VISIT Diabetes fu -- faustino woods, patient wanst to talk about wound care PLAN OF CARE Activity Details Follow Up 3 Months Reason:DMII VITAL SIGNS Height 68 in 2017-08-17 Weight 236.0 lbs 2017-08-17 Temperature 97.5 degrees Fahrenheit 2017-08-17 Heart Rate 82 bpm 2017-08-17 Respiratory Rate 18 2017-08-17 BMI 35.88 kg/m2 2017-08-17 Blood pressure systolic 130 mmHg 2017-08-17 Blood pressure diastolic 78 mmHg 2017-08-17 MEDICATIONS Medication Instructions Dosage Frequency Start Date End Date Duration Status Blood Glucose Monitor System w/Device DX- E 11.65 2 times a day- 3 times weekly. test blood sugar Nov, Active Nebulizer - Active Proventil HFA 108 (90 Base) MCG/ACT Inhalation every 4 hrs 2 puffs as needed 4h 12 Jul, 2015 Active Crestor 10 MG Orally Once a day 1 tablet 24h Active Albuterol Sulfate (2.5 MG/3ML) 0.083% Inhalation 4 times a day 3 ml 6h Active Citalopram Hydrobromide 20 MG Orally Once a day 1.5 tablets 24h 30 days Active ZyrTEC 10 MG Orally Once a day 1 tablet 24h Active Dexilant 60 MG TAKE ONE CAPSULE BY MOUTH ONCE DAILY 90 Active Cyclobenzaprine HCl 10 MG TAKE ONE TABLET BY MOUTH THREE TIMES DAILY NEEDED (MUST HAVE APPOINTMENT FOR REFILL) 30 Active Bactrim DS 800-160 MG Orally Twice a day 1 tablet 12h 15 Aug, 2017Aug 10 day(s) Active Seroquel 200 MG Orally at night 1 tablet Dec, 30 days Active Singulair 10 mg Orally Once a day 1 tablet in the evening 24h 90 days Active Symbicort 160-4.5 MCG/ACT Inhalation Twice a day 2 puffs 12h 24 Aug, 2015 Active Metformin HCl 1000 MG Orally Twice a day 1 tablet with meals 12h 90 days Active Carafate 1 GM Orally 4 times a day x 2 weeks then prn 1 tablet on an empty stomach Active Blood Glucose Test - and lancets. DX E11.65 2 times a day- 3 times weekly. test blood sugar Nov, Active Trazodone HCl 150 MG orally at night as needed for sleep 0.5 tablet 15 Active Oxygen inhalation Portable 2 liters per minute Active Aspir-81 81 MG Orally Once a day 1 tablet 24h Active Metformin HCl 500 MG TAKE TWO TABLETS BY MOUTH TWICE DAILY WITH MEALS 90 Active RESULTS Name Result Date Reference Range CT Scan : Chest, low dose (Screening) 2017-08-25 PROCEDURES No Known procedures INSTRUCTIONS MEDICATIONS ADMINISTERED [...]
--- OUTSIDE RECORDS SUMMARY | 2018-04-03 14:46 | XMS REPORT ---
Author Author KINJAL DORIS [facility] Address [address] [place] [address] Care Team Providers Care Securities Counselor Name Role Phone DORIS LAYTON Unavailable PROBLEMS Type Condition ICD9-CM Code NNO98-HS Code Onset Dates Condition Status SNOMED Code Problem Tobacco use Z72.0 Active 276500555 Problem Tear of right rotator cuff, unspecified tear extent M75.101 Active 021309576 Problem Enlarged lymph node R59.9 Active 47401229 Problem Nocturnal hypoxia G47.34 Active 961883551 Problem Hiatal hernia K44.9 Active 80324189 Problem Bipolar disorder, unspecified F31.9 Active 58815815 Problem Panlobular emphysema J43.1 Active 5359551 Problem Hyperplastic colonic polyp, unspecified part of colon K63.5 Active 098651699 Problem Mood disorder F39 Active 68432091 Problem Hyperlipidemia, unspecified hyperlipidemia type E78.5 Active 60369524 Problem Uncontrolled type 2 diabetes mellitus with hyperglycemia, without long -term current use of insulin E11.65 Active 827889028 Problem Non-seasonal allergic rhinitis due to other allergic trigger J30.89 Active 02990004 Problem Internal hemorrhoids K64.8 Active 05817255 Problem GERD with esophagitis K21.0 Active 045957557 Problem External hemorrhoids K64.4 Active 12171651 Problem Other chronic gastritis without hemorrhage K29.50 Active 1679881 Problem Low back pain M54.5 Active 496426721 Problem Leukocytosis D72.829 Active 397124259 Problem Other osteoarthritis of spine, cervical region M47.892 Active 272436468 Problem Hyperlipidemia E78.5 Active 37969698 Problem History of ME (myocardial infarction) I25.2 Active 063032735 Problem Neuropathy G62.9 Active 502164518 ALLERGIES No Information ENCOUNTERS Encounter Location Date Diagnosis [facility] [address] [facility] [id number] [address] Nov, [facility] [address] [address] Nov, [facility] [id number] [place] [address] 53836- 3131 Sep, [facility] [id number] [place] [address] 84463- 5192 Sep, [facility] [id number] [place] [address] 95569- 4920 Sep, Leukocytosis D72.829 [facility] [id number] [place] [address] 50030- 1835 Sep, [facility] [id number] [place] [address] 94950- 2401 Sep, [facility] [id number] [place] [address] 49164- 4021 Sep, [facility] [id number] [place] [address] 37226- 1280 Aug, Low back pain M54.5 [facility] [id number] [place] [address] 29085- 5333 Aug, Bipolar disorder, unspecified F31.9 [facility] [id number] [place] [address] 10021- 3516 Aug, [facility] [id number] [place] [address] 30461- 5900 Aug, [facility] [id number] [place] [address] 90808- 3941 Aug, Uncontrolled type 2 diabetes mellitus with hyperglycemia, without long-term current use of insulin E11.65 ; Non-healing surgical wound, initial encounter T81.89XA ; Cellulitis of abdominal wall L03.311 ; Hyperlipidemia E78.5 ; Chronic obstructive pulmonary disease, unspecified COPD type J44.9 and Tobacco use Z72.0 [facility] [id number] [place] [address] 83228- 7372 Aug, [facility] [address] [address] 53[address] Jul, [facility] [id number] [place] [address] 330833- 1948 Jul, [facility] [address] [address] 1139 Jul, Type 2 diabetes mellitus 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, unspecified 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 insulin use status E11.40 [facility] [address] [address] 5830 Jun, Bipolar disorder, unspecified F31.9 [facility] [id number] [place] [address] 43335- 0175 Jun, [facility] [id number] [place] [address] 14905- 4414 Jun, Bipolar disorder, unspecified F31.9 [facility] [address] [address] 0646 Jun, Mood disorder F39 [facility] [id number] [place] [address] 53927- 1851 Jun, [facility] [address] [address] 6915 May, Fissure in skin of foot R23.4 ; Callus of foot L84 and Type 2 diabetes mellitus 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, unspecified 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 insulin use status E11.40 [facility] [address] [address] 1122 May, Mood disorder F39 [facility] [address] [address] 2340 Apr, [facility] [address] [address] 2300 Apr, Cough R05 and Tobacco use Z72.0 [facility] [id number] [address] 0597 Apr, Cough R05 and Tobacco use Z72.0 [facility] [id number] [place] [address] 08865- 8958 Apr, Mood disorder F39 [facility] [id number] [place] [address] 96469- 6432 Apr, Low back pain M54.5 [facility] [id number] [place] [address] 75628- 5000 Apr, Uncontrolled type 2 diabetes mellitus with hyperglycemia, without long-term current use of insulin E11.65 [facility] [id number] [place] [address] 77438- 7263 Apr, Uncontrolled type 2 diabetes mellitus with hyperglycemia, without long-term current use of insulin E11.65 [facility] [id number] [place] [address] 90253- 5416 Mar, Bipolar disorder, unspecified F31.9 [facility] [id number] [place] [address] 52979- 0265 Mar, [facility] [id number] [place] [address] 76524- 7505 Mar, Bipolar disorder, unspecified F31.9 [facility] [id number] [place] [address] 57846- 1681 Mar, Mood disorder F39 [facility] [id number] [place] [address] 17602- 7851 Feb, [facility] [id number] [place] [address] 00879- 9016 Feb, [facility] [id number] [place] [address] 63308- 9259 Feb, [facility] [id number] [place] [address] 94684- 9904 Feb, Bipolar disorder, unspecified F31.9 [facility] [id number] [place] [address] 37814- 0710 Feb, Uncontrolled type 2 diabetes mellitus with hyperglycemia, without long-term current use of insulin E11.65 ; Encounter for immunization Z23 ; Vasovagal syncope R55 and Low back pain M54.5 [place] [place] [address] 80975- 0189 Jan, Bipolar disorder, unspecified F31.9 [facility] [address] 38353- 4092 Jan, [facility] [address] 82818- 8178 Jan, Fatigue, unspecified type R53.83 ; Nocturnal hypoxia G47.34 ; Leukocytosis D72.829 ; Other chronic gastritis without hemorrhage K29.50 ; Uncontrolled type 2 diabetes mellitus with hyperglycemia, without long-term current use of insulin E11.65 ; Alternating constipation and diarrhea R19.8 and Chronic obstructive pulmonary disease, unspecified COPD type J44.9 [place] [place] [address] 19849- 2838 Jan, [facility] [address] 68975- 4966 Jan, Leukocytosis D72.829 [facility] [address] 73553- 6773 Jan, Mood disorder F39 [facility] [id number] [place] [address] 57303- 9657 Dec, Bipolar disorder, unspecified F31.9 [facility] [address] 31568- 2458 Dec, [facility] [id number] [place] [address] 00999 -4435 Dec, Acute gastritis without bleeding K29.00 [facility] [address] 41341- 6758 Dec, Leukocytosis D72.829 [facility] [id number] [place] [address] 35770- 3884 Dec, [facility] [id number] [place] [address] 41546- 8870 Dec, Dental examination Z01.20 [facility] [id number] [place] [address] 99251- 5283 11 Dec, 2016 [facility] [id number] [place] [address] 19751- 5054 Dec, Leukocytosis D72.829 [facility] [id number] [place] [address] 84466- 1797 Dec, Uncontrolled type 2 diabetes mellitus with hyperglycemia, without long-term current use of insulin E11.65 [facility] [id number] [place] [address] 16100- 6222 Nov, Dental examination Z01.20 [facility] [id number] [place] [address] 12637- 8265 Nov, [facility] [id number] [place] [address] 41347- 5698 Nov, Major depressive disorder, recurrent episode, moderate F33.1 [facility] [id number] [place] [address] 58888- 6835 Nov, Leukocytosis D72.829 [facility] [id number] [place] [address] 32912- 8914 05 Nov, 2016 Mood disorder F39 [facility] [id number] [place] [address] 07834- 9817 Nov, Other osteoarthritis of spine, cervical region M47.892 and Uncontrolled type 2 diabetes mellitus with hyperglycemia, without long-term current use of insulin E11.65 [facility] [id number] [place] [address] 08956- 5931 Nov, Leukocytosis D72.829 and Elevated serum glucose R73.9 [facility] [address] [address]- 5583 October, Elevated serum glucose R73.9 [facility] [address] [address]- 9785 October, Mood disorder F39 [facility] [address] [address]- 7669 Sep, Major depressive disorder, recurrent episode, moderate F33.1 [facility] [address] [address]- 8021 Sep, Mood disorder F39 [facility] [id number] [place] [address] 63845- 4907 Aug, [facility] [id number] [place] [address] 87566- 2994 Jul, Major depressive disorder, recurrent episode, moderate F33.1 [facility] [address] [address]- 8353 Jul, Mood disorder F39 [facility] [id number] [place] [address] 96383- 0206 Jul, [facility] [address] [address]- 3676 Jul, History of ME (myocardial infarction) I25.2 ; Hyperlipidemia E78.5 ; Prediabetes R73.09 ; Chronic obstructive pulmonary disease, unspecified COPD type J44.9 and Tobacco use Z72.0 [facility] [address] [address]- 5210 Jun, [facility] [id number] [place] [address] 71942- 1529 Jun, Mood disorder F39 [facility] [address] [address]- 5796 Jun, [facility] [id number] [place] [address] 75964- 5982 May, Major depressive disorder, recurrent episode, moderate F33.1 and Primary insomnia F51.01 [facility] [id number] [place] [address] 77624- 6162 May, Mood disorder F39 [facility] [id number] [place] [address] 52101- 6953 Apr, [facility] [id number] [place] [address] 85052- 5886 Apr, Mood disorder F39 [facility] [id number] [place] [address] 74824- 6947 Apr, [facility] [id number] [place] [address] 41515- 0610 Apr, [facility] [id number] [place] [address] 28691- 5942 Apr, Chronic obstructive pulmonary disease, unspecified COPD type J44.9 and Non-seasonal allergic rhinitis due to other allergic trigger J30.89 [facility] [id number] [place] [address] 78716- 0363 Apr, Mood disorder F39 [facility] [id number] [place] [address] 00802- 8677 Apr, Major depressive disorder, recurrent episode, moderate F33.1 and PTSD (post-traumatic stress disorder) F43.10 [facility] [id number] [place] [address] 41558- 9056 Apr, [facility] [id number] [place] [address] 14288- 5532 Apr, [facility] [id number] [place] [address] 86240- 4020 04 Apr, 2016 Chest pain, unspecified type R07.9 ; Chronic obstructive pulmonary disease, unspecified COPD type J44.9 ; Hyperlipidemia, unspecified hyperlipidemia type E78.5 and Tobacco use Z72.0 [facility] [id number] [place] [address] 28903- 4437 Mar, Mood disorder F39 [facility] [id number] [place] [address] 35396- 4492 Mar, Mood disorder F39 [facility] [id number] [place] [address] 21418- 6691 Mar, Other osteoarthritis of spine, cervical region M47.892 [facility] [id number] [place] [address] 39652- 3872 Mar, Tear of right rotator cuff, unspecified tear extent M75.101 [facility] [id number] [place] [address] 82048- 9602 Mar, [facility] [id number] [place] [address] 14950- 8966 Mar, Bipolar II disorder F31.81 [facility] [id number] [place] [address] 24981- 8888 Mar, [facility] [id number] [place] [address] 40971- 1846 Feb, Impingement syndrome of right shoulder M75.41 ; Tear of right rotator cuff, unspecified tear extent M75.101 and Loose body in right elbow M24.021 [facility] [address] [address]- 9438 Jan, [facility] [id number] [place] [address] 04426- 1848 Jan, [facility] [id number] [place] [address] 24602- 9482 Jan, Prediabetes R73.09 ; Other chronic pain G89.29 and Pain in right shoulder M25.511 [facility] [address] [place] [address] 96251- 2236 Dec, [facility] [id number] [place] [address] 21004- 7171 Dec, Heartburn R12 and Chest discomfort R07.89 [facility] [id number] [place] [address] 05812- 6015 Dec, Impingement syndrome of right shoulder M75.41 and 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, 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 [facility] [id number] [place] [address] 44399- 9445 Nov, [facility] [address] 71172- 3234 Nov, Leukocytosis D72.829 [facility] [address] 23909- 5575 Nov, [facility] [id number] [place] [address] 79651- 3313 Nov, Enlarged lymph node R59.9 ; Chronic obstructive pulmonary disease, unspecified COPD type J44.9 ; Low back pain M54.5 ; Neuropathy G62.9 and Closed nondisplaced fracture of sternal end of right clavicle, sequela S42.017S [facility] [address] 07826- 0895 October, [facility] [id number] [place] [address] 65128- 9895 October, [facility] [id number] [place] [address] 91173- 6260 Sep, [facility] [id number] [place] [address] 98065- 1174 Aug, Double vision H53.2 ; Occipital headache R51 ; Chronic obstructive pulmonary disease, unspecified COPD type J44.9 and Gastroesophageal reflux disease, esophagitis presence not specified K21.9 [facility] [id number] [place] [address] 06693- 2098 Aug, [facility] [id number] [place] [address] 28928- 2458 Jul, Enlarged lymph node in neck R59.0 [facility] [id number] [place] [address] 53703- 0787 Jul, [facility] [address] 05641- 7454 10 Jul, 2015 Chronic obstructive pulmonary disease, unspecified COPD type J44.9 ; Tobacco use Z72.0 ; Leukocytosis D72.829 ; Hyperlipidemia E78.5 and Neck abscess L02.11 [facility] [address] 31852- 8477 Jun, Shortness of breath R06.02 [facility] [place] [address] 25637- 6609 May, Leukocytosis D72.829 and Shortness of breath R06.[address] 88701- 4056 May, Low back pain M54.5 ; Hyperlipidemia E78.5 ; Leukocytosis D72.829 ; Other osteoarthritis of spine, cervical region M47.892 and Shortness of breath R06.02 [facility] [address] 71224- 7777 Feb, Chest pain 786.50 ; Tobacco use 305.1 ; Back pain 724.5 and Hyperlipemia 272.4 [facility] [id number] [place] [address] 94195- 0156 Jan, [address] 10453- 7591 Jan, Chronic low back pain 724.2 and Degenerative arthritis of cervical spine 721.[address] 28306- 1905 Jan, Chronic low back pain 724.2 and Neck pain 723.[address] 38893- 8203 Dec, Chronic low back pain 724.2 and Neck pain 723.1 [place] [id number] [place] [address] 72314- 8186 Nov, Chest pain 786.50 ; Dyspnea 786.09 ; Tobacco use 305.1 and Back pain 724.5 [place] [id number] [place] [address] 16674- 5943 Nov, [address] 19814- 5312 Nov, Disability examination V68.01 and Muscle pain 729.[address] 59274- 6457 October, History of ME (myocardial infarction) 412 ; Hyperlipidemia LDL goal < 100 272.4 ; Leukocytosis 288.60 and Glucose intolerance (pre-diabetes ) 790.[address] 90533- 7059 October, Chest pain 786.50 ; Chronic low back pain 724.2 ; History of ME (myocardial infarction) 412 and Neuropathy 355.9 [place] [id number] [place] [address] 49632- 6970 October, Chronic low back pain 724.2 ; Chest pain 786.50 ; History of ME (myocardial infarction) 412 and Neuropathy 355.9 IMMUNIZATIONS No Known Immunizations SOCIAL HISTORY Never Assessed REASON FOR VISIT refill request PLAN OF CARE VITAL SIGNS MEDICATIONS Medication Instructions Dosage Frequency Start Date End Date Duration Status Singulair 10 mg Orally Once a day 1 tablet in the evening 24h 90 days Active RESULTS No Results PROCEDURES [...]
--- OUTSIDE RECORDS SUMMARY | 2018-04-03 14:47 | XMS REPORT ---
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 Name Role Phone LINDSEYMIGDALIA GRIMESA Unavailable PROBLEMS Type Condition ICD9-CM Code AEY36-NH Code Onset Dates Condition Status SNOMED Code Problem Tobacco use Z72.0 Active 913242230 Problem Tear of right rotator cuff, unspecified tear extent M75.101 Active 099111545 Problem Enlarged lymph node R59.9 Active 91201076 Problem Nocturnal hypoxia G47.34 Active 406053138 Problem Hiatal hernia K44.9 Active 09732514 Problem Bipolar disorder, unspecified F31.9 Active 84374788 Problem Panlobular emphysema J43.1 Active 6455069 Problem Hyperplastic colonic polyp, unspecified part of colon K63.5 Active 421136980 Problem Mood disorder F39 Active 78418947 Problem Hyperlipidemia, unspecified hyperlipidemia type E78.5 Active 36681335 Problem Uncontrolled type 2 diabetes mellitus with hyperglycemia, without long -term current use of insulin E11.65 Active 660085176 Problem Non-seasonal allergic rhinitis due to other allergic trigger J30.89 Active 67498536 Problem Internal hemorrhoids K64.8 Active 09752565 Problem GERD with esophagitis K21.0 Active 463049695 Problem External hemorrhoids K64.4 Active 77594460 Problem Other chronic gastritis without hemorrhage K29.50 Active 4398492 Problem Low back pain M54.5 Active 579681586 Problem Leukocytosis D72.829 Active 288603511 Problem Other osteoarthritis of spine, cervical region M47.892 Active 946822615 Problem Hyperlipidemia E78.5 Active 18111504 Problem History of [place] (myocardial infarction) I25.2 Active 418201100 Problem Neuropathy G62.9 Active 817726457 ALLERGIES No Information ENCOUNTERS Encounter Location Date Diagnosis [facility] [address] [facility] [id number] [place] [address] Dec, [facility] [address] [facility] [id number] [place] [address] Nov, [facility] [address] [facility] [id number] [place] [address] Nov, [facility] [address] [facility] [id number] [place] [address] Nov, [facility] [address] [facility] [id number] [place] [address] 457[address] Nov, [facility] [address] [facility] [id number] [place] [address] October, [facility] [address] [id number] [place] [address] October, Low back pain M54.5 [facility] [address] [place] [address] Sep, [facility] [address] [place] [address] Sep, [facility] [address], [place] [address] Sep, Leukocytosis D72.829 [facility] [address] [address] 16[address] Sep, [facility] [address] [place] [address] 2[address] Sep, [facility] [address] [id number] [place] [address] Sep, [facility] [address] [address] Aug, Low back pain M54.5 [facility] [address] [id number] [place] [address] Aug, Bipolar disorder, unspecified F31.9 [facility] [address] [place] [address] 91171- 5013 Aug, [facility] [id number] [place] [address] 79454- 7230 Aug, [place] [address] [address] [id number] [place] [address] 17931- 6286 Aug, Uncontrolled type 2 diabetes mellitus with hyperglycemia, without long-term current use of insulin E11.65 ; Non-healing surgical wound, initial encounter T81.89XA ; Cellulitis of abdominal wall L03.311 ; Hyperlipidemia E78.5 ; Chronic obstructive pulmonary disease, unspecified COPD type J44.9 and Tobacco use Z72.0 [place] [address] [place] [id number] [place] [address] 20009- 3191 Aug, [place] [address] [place] [id number] [place] [address] 43928- 9204 Jul, [place] [address] [id number] [place] [address] 97517- 0253 Jul, [place] [address] [id number] [place] [address] 12390- 8722 Jul, Type 2 diabetes mellitus 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, unspecified senior living insulin use status E11.40 [place] [address] [id number] [place] [address] 08821- 5306 Jun, Bipolar disorder, unspecified F31.9 [place] [address] [id number] [place] [address] 10718- 4125 Jun, [place] [address] [address] [id number] [place] [address] 14280- 8422 Jun, Bipolar disorder, unspecified F31.9 [place] [address] [address] [id number] [place] [address] 92988- 4551 Jun, Mood disorder F39 [place] [id number] [place] [address] 97199- 5980 Jun, [facility] [id number] [place] [address] 60374- 7618 May, Fissure in skin of foot R23.4 ; Callus of foot L84 and Type 2 diabetes mellitus 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, unspecified senior living insulin use status E11.40 [place] [address] [id number] [place] [address] 83036- 8434 04 May, 2017 Mood disorder F39 [place] [address] [address] [id number] [place] [address] 88299- 2078 Apr, [place] [address] 60653- 8648 Apr, Cough R05 and Tobacco use Z72.0 [place] [address] 51519- 2802 Apr, Cough R05 and Tobacco use Z72.0 [place] [address] [id number] [place] [address] 75105- 8353 Apr, Mood disorder F39 [place] [address] [id number] [place] [address] 81938- 5754 Apr, Low back pain M54.5 [place] [id number] [place] [address] 33333- 9288 Apr, Uncontrolled type 2 diabetes mellitus with hyperglycemia, without long-term current use of insulin E11.65 [place] [address] [place] [address] 54331- 9156 Apr, Uncontrolled type 2 diabetes mellitus with hyperglycemia, without long-term current use of insulin E11.65 [place] [id number] [place] [address] 72282- 0305 Mar, Bipolar disorder, unspecified F31.9 [place] [id number] [place] [address] 86095- 4942 Mar, [place] [id number] [place] [address] 85135- 3047 Mar, Bipolar disorder, unspecified F31.9 [place] [address] [place] [id number] [place] [address] 12714- 4594 Mar, Mood disorder F39 [place] [id number] [place] [address] 50677- 0980 Feb, [place] [id number] [place] [address] 06257- 6729 Feb, [place] [id number] [place] [address] 30739- 7366 Feb, [place] [address] [id number] [place] [address] 56426- 5124 Feb, Bipolar disorder, unspecified F31.9 [place] [address] [id number] [place] [address] 75536- 6765 Feb, Uncontrolled type 2 diabetes mellitus with hyperglycemia, without long-term current use of insulin E11.65 ; Encounter for immunization Z23 ; Vasovagal syncope R55 and Low back pain M54.5 [place] [id number] [place] [address] 34440- 8358 Jan, Bipolar disorder, unspecified F31.9 [place] [id number] [place] [address] 31416- 7066 Jan, [place] [id number] [place] [address] 80960- 8796 Jan, Fatigue, unspecified type R53.83 ; Nocturnal hypoxia G47.34 ; Leukocytosis D72.829 ; Other chronic gastritis without hemorrhage K29.50 ; Uncontrolled type 2 diabetes mellitus with hyperglycemia, without long-term current use of insulin E11.65 ; Alternating constipation and diarrhea R19.8 and Chronic obstructive pulmonary disease, unspecified COPD type J44.9 [place] [id number] [place] [address] 13416- 0164 Jan, [place] [address] [id number] [place] [address] 38769- 2823 Jan, Leukocytosis D72.829 [place] [address] [place] [address]- 3108 Jan, Mood disorder F39 [facility] [id number] [place] [address] 82478- 2174 Dec, Bipolar disorder, unspecified F31.9 [facility] [address] [address] 1275 Dec, [facility] [id number] [place] [address] 35100 -3320 Dec, Acute gastritis without bleeding K29.00 [facility] [id number] [place] [address] 49336- 4542 Dec, Leukocytosis D72.829 [facility] [id number] [place] [address] 87703- 4120 Dec, [facility] [id number] [place] [address] 59970- 9964 Dec, Dental examination Z01.20 [facility] [id number] [place] [address] 19075- 5755 Dec, [facility] [id number] [place] [address] 62460- 5506 Dec, Leukocytosis D72.829 [facility] [id number] [place] [address] 84735- 2726 Dec, Uncontrolled type 2 diabetes mellitus with hyperglycemia, without long-term current use of insulin E11.65 [facility] [address] [address]- 3316 Nov, Dental examination Z01.20 [facility] [id number] [place] [address] 16822- 7261 Nov, [facility] [id number] [place] [address] 83404- 2250 Nov, Major depressive disorder, recurrent episode, moderate F33.1 [facility] [id number] [place] [address] 49595- 2393 Nov, Leukocytosis D72.829 [facility] [address] [place] [address] 34876- 2126 Nov, Mood disorder F39 [facility] [address] [place] [address] 20284- 6169 Nov, Other osteoarthritis of spine, cervical region M47.892 and Uncontrolled type 2 diabetes mellitus with hyperglycemia, without long-term current use of insulin E11.65 [facility] [address] [place] [address] 98789- 7688 Nov, Leukocytosis D72.829 and Elevated serum glucose R73.9 [place] [id number] [place] [address] 90957- 2397 October, Elevated serum glucose R73.9 [place] [id number] [place] [address] 22967- 9735 October, Mood disorder F39 [facility] [address] [place] [address] 51436- 1252 Sep, Major depressive disorder, recurrent episode, moderate F33.1 [place] [address] [place] [address] 25669- 7072 Sep, Mood disorder F39 [facility] [address] [address]- 1346 Aug, [facility] [id number] [place] [address] 23414- 9915 Jul, Major depressive disorder, recurrent episode, moderate F33.1 [facility] [address] [place] [address] 35962- 1605 Jul, Mood disorder F39 [facility] [address] [place] [address] 59967274- 4150 Jul, [place] [address] [place] [address] 109652- 4976 Jul, History of [place] (myocardial infarction) I25.2 ; Hyperlipidemia E78.5 ; Prediabetes R73.09 ; Chronic obstructive pulmonary disease, unspecified COPD type J44.9 and Tobacco use Z72.0 [place] [id number] [place] [address] 41748- 4138 Jun, [place] [id number] [place] [address] 67647- 7032 Jun, Mood disorder F39 [place] [address] 55719- 6099 Jun, [place] [address] 93297- 6494 May, Major depressive disorder, recurrent episode, moderate F33.1 and Primary insomnia F51.01 [place] [id number] [place] [address] 34046- 2695 May, Mood disorder F39 [place] [id number] [place] [address] 98424- 3231 Apr, [place] [id number] [place] [address] 50482- 3861 Apr, Mood disorder F39 [place] [id number] [place] [address] 79085- 1154 Apr, [place] [id number] [place] [address] 07904- 5311 Apr, [place] [id number] [place] [address] 05541- 8688 Apr, Chronic obstructive pulmonary disease, unspecified COPD type J44.9 and Non-seasonal allergic rhinitis due to other allergic trigger J30.89 [place] [id number] [place] [address] 33465- 4953 Apr, Mood disorder F39 [place] [id number] [place] [address] 85347- 3870 10 Nov, 2016 Major depressive disorder, recurrent episode, moderate F33.1 and PTSD (post-traumatic stress disorder) F43.10 [place] [id number] [place] [address] 53895- 0269 Apr, [facility] [id number] [place] [address] 36575- 4493 Apr, [place] [id number] [place] [address] 64262- 6874 Apr, Chest pain, unspecified type R07.9 ; Chronic obstructive pulmonary disease, unspecified COPD type J44.9 ; Hyperlipidemia, unspecified hyperlipidemia type E78.5 and Tobacco use Z72.0 [place] [id number] [place] [address] 52844- 1955 Mar, Mood disorder F39 [place] [id number] [place] [address] 09776- 1145 Mar, Mood disorder F39 [place] [id number] [place] [address] 72245- 1831 Mar, Other osteoarthritis of spine, cervical region M47.892 [place] [id number] [place] [address] 40236- 3831 Mar, Tear of right rotator cuff, unspecified tear extent M75.101 [place] [id number] [place] [address] 11331- 3549 Mar, [place] [id number] [place] [address] 84076- 9676 Mar, Bipolar II disorder F31.81 [place] [id number] [place] [address] 16998- 5631 Mar, [place] [id number] [place] [address] 07690- 7520 Feb, Impingement syndrome of right shoulder M75.41 ; Tear of right rotator cuff, unspecified tear extent M75.101 and Loose body in right elbow M24.021 [place] [id number] [place] [address] 72178- 5708 Jan, [place] [id number] [place] [address] 11160- 5538 Jan, [place] [id number] [place] [address] 75580- 7500 Jan, Prediabetes R73.09 ; Other chronic pain G89.29 and Pain in right shoulder M25.511 [place] [id number] [place] [address] 71062- 7402 Dec, [place] [id number] [place] [address] 82435- 9180 Dec, Heartburn R12 and Chest discomfort R07.89 [place] [id number] [place] [address] 65375- 9144 Dec, Impingement syndrome of right shoulder M75.41 and 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, 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 [place] [id number] [place] [address] 60440- 3641 Nov, [place] [id number] [place] [address] 91248- 8390 Nov, Leukocytosis D72.829 [place] [id number] [place] [address] 91259- 8760 Nov, [place] [id number] [place] [address] 78823- 3172 Nov, Enlarged lymph node R59.9 ; Chronic obstructive pulmonary disease, unspecified COPD type J44.9 ; Low back pain M54.5 ; Neuropathy G62.9 and Closed nondisplaced fracture of sternal end of right clavicle, sequela S42.017S [place] [address] [place] [address] 82596- 3934 October, [place] [id number] [place] [address] 49601- 3521 October, [place] [id number] [place] [address] 66125- 1665 Sep, [place] [address] 24431- 4617 Aug, Double vision H53.2 ; Occipital headache R51 ; Chronic obstructive pulmonary disease, unspecified COPD type J44.9 and Gastroesophageal reflux disease, esophagitis presence not specified K21.9 [place] [address] 21420- 0524 Aug, [place] [address] 89108- 0359 Jul, Enlarged lymph node in neck R59.0 [place] [address] 69000- 1847 Jul, [place] [address] 58588- 6646 Jul, Chronic obstructive pulmonary disease, unspecified COPD type J44.9 ; Tobacco use Z72.0 ; Leukocytosis D72.829 ; Hyperlipidemia E78.5 and Neck abscess L02.11 [place] [id number] [place] [address] 39676- 7072 Jun, Shortness of breath R06.02 [place] [id number] [place] [address] 61537- 5817 May, Leukocytosis D72.829 and Shortness of breath R06.02 [place] [address] 22452- 9892 09 May, 2015 Low back pain M54.5 ; Hyperlipidemia E78.5 ; Leukocytosis D72.829 ; Other osteoarthritis of spine, cervical region M47.892 and Shortness of breath R06.02 [place] [id number] [place] [address] 27975- 9243 18 Feb, 2015 Chest pain 786.50 ; Tobacco use 305.1 ; Back pain 724.5 and Hyperlipemia 272.4 [place] [id number] [place] [address] 43785- 5138 Jan, [place] [address] 85222- 3044 Jan, Chronic low back pain 724.2 and Degenerative arthritis of cervical spine 721.[address] 38014- 9723 Jan, Chronic low back pain 724.2 and Neck pain 723.[address] 73434- 3529 Dec, Chronic low back pain 724.2 and Neck pain 723.[address] 64831- 6331 Nov, Chest pain 786.50 ; Dyspnea 786.09 ; Tobacco use 305.1 and Back pain 724.[address] 88087- 4351 Nov, [address] 99374- 5309 Nov, Disability examination V68.01 and Muscle pain 729.[address] 42162- 0804 October, History of [place] (myocardial infarction) 412 ; Hyperlipidemia LDL goal < 100 272.4 ; Leukocytosis 288.60 and Glucose intolerance (pre-diabetes ) 790.29 [place] [id number] [place] [address] 85363- 8636 October, Chest pain 786.50 ; Chronic low back pain 724.2 ; History of [place] (myocardial infarction) 412 and Neuropathy 355.9 [place] [id number] [place] [address] 84608- 9290 October, Chronic low back pain 724.2 ; Chest pain 786.50 ; History of [place] (myocardial infarction) 412 and Neuropathy 355.9 IMMUNIZATIONS No Known Immunizations SOCIAL HISTORY Never Assessed REASON FOR VISIT PLAN OF CARE VITAL SIGNS MEDICATIONS Medication Instructions Dosage Frequency Start Date End Date Duration Status Trazodone HCl 150 MG orally at night [...]
--- OUTSIDE RECORDS SUMMARY | 2018-04-03 14:47 | XMS REPORT ---
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 Role Phone DORIS LAYTON Unavailable PROBLEMS Type Condition ICD9-CM Code SOF51-QQ Code Onset Dates Condition Status SNOMED Code Problem Enlarged lymph node R59.9 Active 27103952 Problem Hyperlipidemia, unspecified hyperlipidemia type E78.5 Active 29400574 Problem Tear of right rotator cuff, unspecified tear extent M75.101 Active 202126539 Problem Other chronic pain G89.29 Active 13141766 Problem Internal hemorrhoids K64.8 Active 36798588 Problem Nocturnal hypoxia G47.34 Active 976322583 Problem Panlobular emphysema J43.1 Active 0343449 Problem Hyperplastic colonic polyp, unspecified part of colon K63.5 Active 000579426 Problem Non-seasonal allergic rhinitis due to other allergic trigger J30.89 Active 10627636 Problem Mood disorder F39 Active 81503576 Problem Bipolar disorder, unspecified F31.9 Active 04806197 Problem Uncontrolled type 2 diabetes mellitus with hyperglycemia, without long -term current use of insulin E11.65 Active 008859042 Problem GERD with esophagitis K21.0 Active 247637197 Problem Other osteoarthritis of spine, cervical region M47.892 Active 014659557 Problem Hiatal hernia K44.9 Active 28579904 Problem External hemorrhoids K64.4 Active 08842874 Problem Leukocytosis D72.829 Active 456212663 Problem Hyperlipidemia E78.5 Active 36591101 Problem History of ME (myocardial infarction) I25.2 Active 384780942 Problem Neuropathy G62.9 Active 668489454 Problem Other chronic gastritis without hemorrhage K29.50 Active 4995987 Problem Low back pain M54.5 Active 463484233 Problem Tobacco use Z72.0 Active 170881056 ALLERGIES No Information ENCOUNTERS Encounter Location Date Diagnosis [facility] [id number] [address] Dec, [facility] [id number] [place] [address]63- 2004 Dec, [facility] [id number] [place] [address] 41543- 0914 Nov, Bipolar disorder, unspecified F31.9 [facility] [id number] [place] [address] 64444- 6269 Nov, [facility] [id number] [place] [address] 71677- 5460 Nov, Pain in left knee M25.562 ; Other chronic pain G89.29 ; Hyperlipidemia E78.5 ; Leukocytosis D72.829 ; Other osteoarthritis of spine, cervical region M47.892 ; Tobacco use Z72.0 and Uncontrolled type 2 diabetes mellitus with hyperglycemia, without long-term current use of insulin E11.65 [facility] [id number] [place] [address] 73643- 9515 Nov, [facility] [id number] [place] [address] 21225- 5774 Nov, [facility] [id number] [place] [address] 53834- 9460 October, [facility] [id number] [place] [address] 99831- 1382 October, Low back pain M54.5 [facility] [id number] [place] [address] 72020- 0171 Sep, [facility] [id number], [place] [address] 7608 Sep, [facility] [id number] [place] [address] 96091- 4193 Sep, Leukocytosis D72.829 [facility] [id number] [place] [address] 70929- 6836 Sep, [facility] [address] [address] Sep, [facility] [id number] [place] [address] 52376- 5166 Sep, [facility] [address], [place] [address] 6735 Aug, Low back pain M54.5 [facility] [id number] [place] [address] 66770- 3497 Aug, Bipolar disorder, unspecified F31.9 [facility] [address] [place] [address] 34973- 0540 Aug, [facility] [id number] [place] [address] 81741- 6743 Aug, [facility] [id number] [place] [address] 31932- 3080 Aug, Uncontrolled type 2 diabetes mellitus with hyperglycemia, without long-term current use of insulin E11.65 ; Non-healing surgical wound, initial encounter T81.89XA ; Cellulitis of abdominal wall L03.311 ; Hyperlipidemia E78.5 ; Chronic obstructive pulmonary disease, unspecified COPD type J44.9 [address] Tobacco use Z72.0 [facility] [address], [place] [address] 1202 Aug, [facility] [address] [address] Jul, [facility] [address], [place] [address] Jul, [facility] [address] [place] [address] 13746- 1361 Jul, Type 2 diabetes mellitus 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, unspecified mcc insulin use status E11.40 [facility] [address] [address] 7030 Jun, Bipolar disorder, unspecified F31.9 [facility] [id number] [place] [address] 81314- 0040 Jun, [facility] [id number] [place] [address] 17933- 3363 Jun, Bipolar disorder, unspecified F31.9 [facility] [id number] [place] [address] 94397- 9086 Jun, Mood disorder F39 [address] [place] [address] 65991- 6601 Jun, [facility] [id number] [place] [address] 54784- 9626 May, Fissure in skin of foot R23.4 ; Callus of foot L84 and Type 2 diabetes mellitus 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, unspecified mcc insulin use status E11.40 [facility] [place] [id number] [place] [address] 41436- 4055 May, Mood disorder F39 [id number] [place] [address] 96266- 6461 Apr, [place] [address] 81851- 4918 Apr, Cough R05 and Tobacco use Z72.0 [facility] [place] [id number] [place] [address] 20051- 0901 Apr, Cough R05 and Tobacco use Z72.0 [facility] [id number] [place] [address] 86899- 0022 Apr, Mood disorder F39 [place] [id number] [place] [address] 20273- 8128 Apr, Low back pain M54.5 [facility] [id number] [place] [address] 72636- 3823 Apr, Uncontrolled type 2 diabetes mellitus with hyperglycemia, without long-term current use of insulin E11.65 [facility] [id number] [place] [address] 51399- 5617 Apr, Uncontrolled type 2 diabetes mellitus with hyperglycemia, without long-term current use of insulin E11.65 [facility] [id number] [place] [address] 89920- 8643 Mar, Bipolar disorder, unspecified F31.9 [facility] [id number] [place] [address] 07924- 0868 Mar, [facility] [id number] [place] [address] 11553- 7501 Mar, Bipolar disorder, unspecified F31.9 [facility] [id number] [place] [address] 03298- 8574 Mar, Mood disorder F39 [facility] [id number] [place] [address] 78381- 5735 Feb, [facility] [id number] [place] [address] 00211- 1275 Feb, [facility] [id number] [place] [address] 06092- 5947 Feb, [facility] [id number] [place] [address] 59989- 3084 Feb, Bipolar disorder, unspecified F31.9 [facility] [address] [place] [address] 73162- 5063 Feb, Uncontrolled type 2 diabetes mellitus with hyperglycemia, without long-term current use of insulin E11.65 ; Encounter for immunization Z23 ; Vasovagal syncope R55 and Low back pain M54.5 [facility] [id number] [place] [address] 18870- 8066 Jan, Bipolar disorder, unspecified F31.9 [facility] [id number] [place] [address] 01850- 3523 Jan, [facility] [address] [place] [address] 40675- 4331 10 Aug, 2017 Fatigue, unspecified type R53.83 ; Nocturnal hypoxia G47.34 ; Leukocytosis D72.829 ; Other chronic gastritis without hemorrhage K29.50 ; Uncontrolled type 2 diabetes mellitus with hyperglycemia, without long-term current use of insulin E11.65 ; Alternating constipation and diarrhea R19.8 and Chronic obstructive pulmonary disease, unspecified COPD type J44.9 [facility] [address] 90084- 9215 Jan, [place] [address] 90176- 3796 Jan, Leukocytosis D72.[address] 22163- 4124 Jan, Mood disorder F39 [address] [address] 59241- 3146 Dec, Bipolar disorder, unspecified F31.9 [place] [address] 13165- 1500 Dec, [facility] [address] 93336 -5645 Dec, Acute gastritis without bleeding K29.00 [place] [id number] [place] [address] 22917- 6253 Dec, Leukocytosis D72.829 [facility] [place] [id number] [place] [address] 61119- 2681 Dec, [facility] [id number] [place] [address] 61353- 6082 Dec, Dental examination Z01.[address] 15533- 3119 Dec, [facility] [id number] [place] [address] 13322- 9291 Dec, Leukocytosis D72.829 [place] [address] 09791- 8545 Dec, Uncontrolled type 2 diabetes mellitus with hyperglycemia, without long-term current use of insulin E11.65 [place] [address] [place] [address] 15109- 7631 Nov, Dental examination Z01.20 [place] [address] [place] [address] 46157- 3667 Nov, [facility] [id number] [place] [address] 89987- 4114 Nov, Major depressive disorder, recurrent episode, moderate F33.1 [facility] [id number] [place] [address] 31940- 4241 Nov, Leukocytosis D72.829 [place] [id number] [place] [address] 31226- 8472 Nov, Mood disorder F39 [place] [id number] [place] [address] 21300- 2510 Nov, Other osteoarthritis of spine, cervical region M47.892 and Uncontrolled type 2 diabetes mellitus with hyperglycemia, without long-term current use of insulin E11.65 [place] [id number] [place] [address] 65399- 6360 Nov, Leukocytosis D72.829 and Elevated serum glucose R73.9 [place] [address] [place] [address] 37743- 6026 October, Elevated serum glucose R73.9 [facility] [id number] [place] [address] 57202- 7476 October, Mood disorder F39 [address] [address] [place] [address] 32245- 2925 Sep, Major depressive disorder, recurrent episode, moderate F33.1 [place] [address] [place] [address] 60258- 7922 17 Sep, 2016 Mood disorder F39 [place] [id number] [place] [address] 07712- 9460 Aug, [facility] [address], [place] [address]- 3509 Jul, Major depressive disorder, recurrent episode, moderate F33.1 [facility] [address], [place] [address]- 2800 Jul, Mood disorder F39 [facility] [address], [place] [address]- 9147 Jul, [facility] [address], [place] [address]- 3466 Jul, History of ME (myocardial infarction) I25.2 ; Hyperlipidemia E78.5 ; Prediabetes R73.09 ; Chronic obstructive pulmonary disease, unspecified COPD type J44.9 [address] Z72[address]0 [facility] [address], [place] [address]- 2853 Jun, [facility] [address], [place] [address]- 0335 Jun, Mood disorder F39 [facility] [address], [place] [address]- 5686 Jun, [facility] [address], [place] [address]- 4307 May, Major depressive disorder, recurrent episode, moderate F33.1 and Primary insomnia F51.01 [facility] [address], [place] [address]- 8665 May, Mood disorder F39 [facility] [address], [place] [address]- 6051 Apr, [facility] [address], [place] [address]- 7698 Apr, Mood disorder F39 [facility] [address], [place] [address]- 8131 Apr, [facility] [id number] [place] [address] 12062- 5241 Apr, [place] [address] 88168- 6712 Apr, Chronic obstructive pulmonary disease, unspecified COPD type J44.9 and Non-seasonal allergic rhinitis due to other allergic trigger J30.89 [place] [address] 33107- 1242 Apr, Mood disorder F39 [place] [address] 59936- 3496 Apr, Major depressive disorder, recurrent episode, moderate F33.1 and PTSD (post-traumatic stress disorder) F43.10 [place] [id number] [place] [address] 41252- 2503 Apr, [address] 79815- 1997 Apr, [place] [id number] [place] [address] 71087- 4242 Apr, Chest pain, unspecified type R07.9 ; Chronic obstructive pulmonary disease, unspecified COPD type J44.9 ; Hyperlipidemia, unspecified hyperlipidemia type E78.5 and Tobacco use Z72.0 [place] [id number] [place] [address] 58930- 2821 Mar, Mood disorder F39 [place] [id number] [place] [address] 94141- 2840 Mar, Mood disorder F39 [place] [id number] [place] [address] 90343- 1383 Mar, Other osteoarthritis of spine, cervical region M47.892 [place] [address] 00587- 0901 Mar, Tear of right rotator cuff, unspecified tear extent M75.101 [place] [address] 33022- 9335 Mar, [place] [id number] [place] [address] 52018- 8248 Mar, Bipolar II disorder F31.81 [facility] [address] 35681- 5593 Mar, [facility] [address] 15455- 7454 Feb, Impingement syndrome of right shoulder M75.41 ; Tear of right rotator cuff, unspecified tear extent M75.101 and Loose body in right elbow M24.021 [place] [address] 55602- 2270 Jan, [place] [address] 39867- 0132 Jan, [place] [address] 67027- 0833 Jan, Prediabetes R73.09 ; Other chronic pain G89.29 and Pain in right shoulder M25.511 [place] [address] 43144- 9962 Dec, [place] [address] 00505- 6881 Dec, Heartburn R12 and Chest discomfort R07.89 [place] [address] 28143- 5714 Dec, Impingement syndrome of right shoulder M75.41 and 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, 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 [place] [address] 54627- 1670 Nov, [place] [address] 07635- 7543 Nov, Leukocytosis D72.829 [place] [address] 07967- 5425 Nov, [place] [id number] [place] [address] 84727- 2179 Nov, Enlarged lymph node R59.9 ; Chronic obstructive pulmonary disease, unspecified COPD type J44.9 ; Low back pain M54.5 ; Neuropathy G62.9 and Closed nondisplaced fracture of sternal end of right clavicle, sequela S42.017S [place] [id number] [place] [address] 95466- 5494 October, [facility] [place] [id number] [place] [address] 07943- 2314 October, [facility] [place] [id number] [place] [address] 61518- 5229 Sep, [place] [id number] [place] [address] 13887- 7641 Aug, Double vision H53.2 ; Occipital headache R51 ; Chronic obstructive pulmonary disease, unspecified COPD type J44.9 and Gastroesophageal reflux disease, esophagitis presence not specified K21.9 [place] [id number] [place] [address] 23655- 9345 Aug, [place] [id number] [place] [address] 05699- 7941 Jul, Enlarged lymph node in neck R59.0 [place] [id number] [place] [address] 38067- 3644 Jul, [place] [id number] [place] [address] 67435- 3073 10 Jul, 2015 Chronic obstructive pulmonary disease, unspecified COPD type J44.9 ; Tobacco use Z72.0 ; Leukocytosis D72.829 ; Hyperlipidemia E78.5 and Neck abscess L02.11 [place] [address] [place] [address] 20176- 8258 Jun, Shortness of breath R06.02 [place] [address] [place] [address]- 1102 17 May, 2015 Leukocytosis D72.829 and Shortness of breath R06.02 [place] [address] 52189- 4344 09 May, 2015 Low back pain M54.5 ; Hyperlipidemia E78.5 ; Leukocytosis D72.829 ; Other osteoarthritis of spine, cervical region M47.892 and Shortness of breath R06.02 [place] [address] 72855- 1707 18 Feb, 2015 Chest pain 786.50 ; Tobacco use 305.1 ; Back pain 724.5 and Hyperlipemia 272.4 [place] [address] 60188- 4884 Jan, [place] [address] 99767- 7087 Jan, Chronic low back pain 724.2 and Degenerative arthritis of cervical spine 721.0 [place] [address] 71400- 8078 Jan, Chronic low back pain 724.2 and Neck pain 723.1 [place] [address] 72475- 9021 Dec, Chronic low back pain 724.2 and Neck pain 723.1 [place] [address] 25117- 8789 Nov, Chest pain 786.50 ; Dyspnea 786.09 ; Tobacco use 305.1 and Back pain 724.5 [place] [address] 79725- 8680 Nov, [place] [address] 63224- 9949 04 Nov, 2014 Disability examination V68.01 and Muscle pain 729.1 [place] [address] 24220- 2202 October, History of ME (myocardial infarction) 412 ; Hyperlipidemia LDL goal < 100 272.4 ; Leukocytosis 288.60 and Glucose intolerance (pre-diabetes ) 790.29 [facility] [address] [facility] [id number] [place] [address]- 9276 October, Chest pain 786.50 ; Chronic low back pain 724.2 ; History of ME (myocardial infarction) [address] [facility] [address] [facility] [id number] [place] [address]- 5879 October, Chronic low back pain 724.2 ; Chest pain 786.50 ; History of ME (myocardial infarction) 412 and Neuropathy 355.9 IMMUNIZATIONS No Known Immunizations SOCIAL HISTORY Never Assessed REASON FOR VISIT 6 mo DM ed f/u PLAN OF CARE VITAL SIGNS MEDICATIONS Unknown [...]
--- OUTSIDE RECORDS SUMMARY | 2018-04-03 14:49 | XMS REPORT ---
Author Author KINJAL DORIS [facility] Address [address] [place] [address] Care Team Providers Care Business Development Specialist Name Role Phone DORIS LAYTON Unavailable PROBLEMS Type Condition ICD9-CM Code PRV50-ZZ Code Onset Dates Condition Status SNOMED Code Problem Tobacco use Z72.0 Active 945145777 Problem Tear of right rotator cuff, unspecified tear extent M75.101 Active 692363560 Problem Enlarged lymph node R59.9 Active 62044376 Problem Nocturnal hypoxia G47.34 Active 847983928 Problem Hiatal hernia K44.9 Active 74804897 Problem Bipolar disorder, unspecified F31.9 Active 87454253 Problem Panlobular emphysema J43.1 Active 7307893 Problem Hyperplastic colonic polyp, unspecified part of colon K63.5 Active 194973363 Problem Mood disorder F39 Active 12134234 Problem Hyperlipidemia, unspecified hyperlipidemia type E78.5 Active 71099545 Problem Uncontrolled type 2 diabetes mellitus with hyperglycemia, without long -term current use of insulin E11.65 Active 065586147 Problem Non-seasonal allergic rhinitis due to other allergic trigger J30.89 Active 78842744 Problem Internal hemorrhoids K64.8 Active 43679418 Problem GERD with esophagitis K21.0 Active 555190840 Problem External hemorrhoids K64.4 Active 27895796 Problem Other chronic gastritis without hemorrhage K29.50 Active 4478982 Problem Low back pain M54.5 Active 608123280 Problem Leukocytosis D72.829 Active 774166505 Problem Other osteoarthritis of spine, cervical region M47.892 Active 373007784 Problem Hyperlipidemia E78.5 Active 01443747 Problem History of NC (myocardial infarction) I25.2 Active 865573310 Problem Neuropathy G62.9 Active 128581071 ALLERGIES No Information ENCOUNTERS Encounter Location Date Diagnosis [facility] [address] [facility] [id number] [address] Dec, [facility] [address] [facility] [id number] [place] [address] Nov, [facility] [address] [facility] [id number] [place] [address] Nov, [facility] [address] [facility] [id number] [place] [address] Nov, [facility] [address] [facility] [id number] [place] [address] 1785 Nov, [facility] [address] [facility] [id number] [place] [address] 116[address] October, [facility] [address] [id number] [place] [address] October, Low back pain M54.5 [facility] [id number] [place] [address] Sep, [facility] [id number] [place] [address] Sep, [facility] [address], [place] [address] Sep, Leukocytosis D72.829 [facility] [address], [place] [address] Sep, [facility] [address] [place] [address] Sep, [facility] [address] [id number] [place] [address] 4724 Sep, [facility] [address], [place] [address] Aug, Low back pain M54.5 [facility] [address] [id number] [place] [address] 70[address] Aug, Bipolar disorder, unspecified F31.9 [facility] [address] [place] [address] 89853- 5322 Aug, [facility] [id number] [place] [address] 80448- 8436 Aug, [place] [id number] [place] [address] 37417- 4981 Aug, Uncontrolled type 2 diabetes mellitus with hyperglycemia, without long-term current use of insulin E11.65 ; Non-healing surgical wound, initial encounter T81.89XA ; Cellulitis of abdominal wall L03.311 ; Hyperlipidemia E78.5 ; Chronic obstructive pulmonary disease, unspecified COPD type J44.9 and Tobacco use Z72.0 [place] [id number] [place] [address] 09938- 0576 Aug, [place] [id number] [place] [address] 34632- 6138 Jul, [place] [id number] [place] [address] 73810- 5903 Jul, [place] [id number] [place] [address] 20004- 1838 Jul, Type 2 diabetes mellitus 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, 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 [facility] [facility] [id number] [place] [address] 34189- 0780 Jun, Bipolar disorder, unspecified F31.9 [place] [id number] [place] [address] 74012- 1687 Jun, [place] [id number] [place] [address] 54225- 8698 Jun, Bipolar disorder, unspecified F31.9 [place] [id number] [place] [address] 21003- 1632 Jun, Mood disorder F39 [place] [id number] [place] [address] 92889- 3126 Jun, [facility] [id number] [place] [address] 35999- 6765 May, Fissure in skin of foot R23.4 ; Callus of foot L84 and Type 2 diabetes mellitus 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, unspecified residential insulin use status E11.40 [place] [id number] [place] [address] 22281- 7403 04 May, 2017 Mood disorder F39 [place] [id number] [place] [address] 00142- 1500 Apr, [place] [address] 30231- 0785 Apr, Cough R05 and Tobacco use Z72.0 [place] [address] 99678- 9083 Apr, Cough R05 and Tobacco use Z72.0 [place] [id number] [place] [address] 89866- 4741 Apr, Mood disorder F39 [place] [id number] [place] [address] 81129- 1101 Apr, Low back pain M54.5 [place] [id number] [place] [address] 39097- 8440 Apr, Uncontrolled type 2 diabetes mellitus with hyperglycemia, without long-term current use of insulin E11.65 [place] [address] [place] [address] 33822- 2614 Apr, Uncontrolled type 2 diabetes mellitus with hyperglycemia, without long-term current use of insulin E11.65 [place] [id number] [place] [address] 31361- 0365 Mar, Bipolar disorder, unspecified F31.9 [place] [id number] [place] [address] 95063- 0683 Mar, [place] [id number] [place] [address] 53619- 7865 Mar, Bipolar disorder, unspecified F31.9 [place] [id number] [place] [address] 48498- 1570 Mar, Mood disorder F39 [place] [id number] [place] [address] 71525- 7267 Feb, [place] [id number] [place] [address] 47784- 1941 Feb, [place] [id number] [place] [address] 82760- 8194 Feb, [place] [id number] [place] [address] 88002- 5633 Feb, Bipolar disorder, unspecified F31.9 [place] [id number] [place] [address] 08735- 4210 Feb, Uncontrolled type 2 diabetes mellitus with hyperglycemia, without long-term current use of insulin E11.65 ; Encounter for immunization Z23 ; Vasovagal syncope R55 and Low back pain M54.5 [place] [id number] [place] [address] 40030- 9914 Jan, Bipolar disorder, unspecified F31.9 [place] [id number] [place] [address] 82114- 5270 Jan, [facility] [id number] [place] [address] 28486- 3990 Jan, Fatigue, unspecified type R53.83 ; Nocturnal hypoxia G47.34 ; Leukocytosis D72.829 ; Other chronic gastritis without hemorrhage K29.50 ; Uncontrolled type 2 diabetes mellitus with hyperglycemia, without long-term current use of insulin E11.65 ; Alternating constipation and diarrhea R19.8 and Chronic obstructive pulmonary disease, unspecified COPD type J44.9 [place] [id number] [place] [address] 58022- 9765 Jan, [facility] [id number] [place] [address] 52510- 6489 Jan, Leukocytosis D72.829 [place] [address] [place] [address]- 3595 Jan, Mood disorder F39 [facility] [id number] [place] [address] 82529- 8176 Dec, Bipolar disorder, unspecified F31.9 [facility] [address], [place] [address] 8183 Dec, [facility] [id number] [place] [address] 10090 -0424 Dec, Acute gastritis without bleeding K29.00 [facility] [id number] [place] [address] 78623- 2606 Dec, Leukocytosis D72.829 [facility] [id number] [place] [address] 00428- 2230 Dec, [facility] [id number] [place] [address] 50206- 7236 Dec, Dental examination Z01.20 [facility] [id number] [place] [address] 16838- 8418 Dec, [facility] [id number] [place] [address] 08813- 7128 Dec, Leukocytosis D72.829 [facility] [id number] [place] [address] 36742- 3460 Dec, Uncontrolled type 2 diabetes mellitus with hyperglycemia, without long-term current use of insulin E11.65 [facility] [address], [place] [address]- 2674 Nov, Dental examination Z01.20 [facility] [id number] [place] [address] 05100- 7279 Nov, [facility] [id number] [place] [address] 34306- 9316 Nov, Major depressive disorder, recurrent episode, moderate F33.1 [facility] [id number] [place] [address] 39131- 5133 Nov, Leukocytosis D72.829 [facility] [address] [place] [address] 37098- 3576 Nov, Mood disorder F39 [facility] [address] [place] [address] 31960- 4503 Nov, Other osteoarthritis of spine, cervical region M47.892 and Uncontrolled type 2 diabetes mellitus with hyperglycemia, without long-term current use of insulin E11.65 [facility] [address] [place] [address] 27429- 4343 Nov, Leukocytosis D72.829 and Elevated serum glucose R73.9 [place] [id number] [place] [address] 15931- 2497 October, Elevated serum glucose R73.9 [place] [id number] [place] [address] 07467- 9091 October, Mood disorder F39 [facility] [address] [place] [address] 67416- 3881 Sep, Major depressive disorder, recurrent episode, moderate F33.1 [place] [address] [place] [address] 42413- 6435 Sep, Mood disorder F39 [facility] [address], [place] [address]- 9784 Aug, [facility] [id number] [place] [address] 39489- 6138 Jul, Major depressive disorder, recurrent episode, moderate F33.1 [facility] [address] [place] [address] 64086- 9560 Jul, Mood disorder F39 [facility] [address] [place] [address] 76993569- 9551 Jul, [place] [address] [place] [address] 506685- 1081 Jul, History of NC (myocardial infarction) I25.2 ; Hyperlipidemia E78.5 ; Prediabetes R73.09 ; Chronic obstructive pulmonary disease, unspecified COPD type J44.9 and Tobacco use Z72.0 [place] [id number] [place] [address] 39549- 1961 Jun, [place] [id number] [place] [address] 71896- 5564 Jun, Mood disorder F39 [place] [address] 28232- 6845 Jun, [place] [address] 37957- 6686 May, Major depressive disorder, recurrent episode, moderate F33.1 and Primary insomnia F51.01 [place] [id number] [place] [address] 98431- 3755 May, Mood disorder F39 [place] [id number] [place] [address] 62132- 2020 Apr, [place] [id number] [place] [address] 38301- 3072 Apr, Mood disorder F39 [place] [id number] [place] [address] 74901- 6358 Apr, [place] [id number] [place] [address] 92737- 5213 Apr, [place] [id number] [place] [address] 16097- 0759 Apr, Chronic obstructive pulmonary disease, unspecified COPD type J44.9 and Non-seasonal allergic rhinitis due to other allergic trigger J30.89 [place] [id number] [place] [address] 10060- 0851 Apr, Mood disorder F39 [place] [id number] [place] [address] 58627- 2142 10 Nov, 2016 Major depressive disorder, recurrent episode, moderate F33.1 and PTSD (post-traumatic stress disorder) F43.10 [place] [id number] [place] [address] 04085- 6213 Apr, [facility] [id number] [place] [address] 50104- 7953 Apr, [place] [id number] [place] [address] 11038- 1811 Apr, Chest pain, unspecified type R07.9 ; Chronic obstructive pulmonary disease, unspecified COPD type J44.9 ; Hyperlipidemia, unspecified hyperlipidemia type E78.5 and Tobacco use Z72.0 [place] [id number] [place] [address] 36695- 8159 Mar, Mood disorder F39 [place] [id number] [place] [address] 08202- 1227 Mar, Mood disorder F39 [place] [id number] [place] [address] 24017- 2516 Mar, Other osteoarthritis of spine, cervical region M47.892 [place] [id number] [place] [address] 03663- 2017 Mar, Tear of right rotator cuff, unspecified tear extent M75.101 [place] [id number] [place] [address] 97803- 2876 Mar, [place] [id number] [place] [address] 17301- 1311 Mar, Bipolar II disorder F31.81 [place] [address] [place] [address] 29279- 8123 Mar, [place] [id number] [place] [address] 51040- 3432 Feb, Impingement syndrome of right shoulder M75.41 ; Tear of right rotator cuff, unspecified tear extent M75.101 and Loose body in right elbow M24.021 [place] [address] [place] [address] 89663- 5400 Jan, [place] [id number] [place] [address] 09553- 5175 Jan, [place] [id number] [place] [address] 48813- 7384 Jan, Prediabetes R73.09 ; Other chronic pain G89.29 and Pain in right shoulder M25.511 [place] [address] [place] [address] 27108- 7297 Dec, [place] [id number] [place] [address] 36920- 3473 Dec, Heartburn R12 and Chest discomfort R07.89 [place] [id number] [place] [address] 13825- 7053 Dec, Impingement syndrome of right shoulder M75.41 and 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, 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 [place] [address] [place] [address] 04316- 4920 Nov, [place] [id number] [place] [address] 39489- 4747 Nov, Leukocytosis D72.829 [place] [address] [place] [address] 59905- 4346 Nov, [place] [id number] [place] [address] 83341- 1627 Nov, Enlarged lymph node R59.9 ; Chronic obstructive pulmonary disease, unspecified COPD type J44.9 ; Low back pain M54.5 ; Neuropathy G62.9 and Closed nondisplaced fracture of sternal end of right clavicle, sequela S42.017S [place] [address] [place] [address] 64448- 6515 October, [place] [id number] [place] [address] 97562- 8096 October, [place] [id number] [place] [address] 64551- 4514 Sep, [place] [address] 63062- 6222 Aug, Double vision H53.2 ; Occipital headache R51 ; Chronic obstructive pulmonary disease, unspecified COPD type J44.9 and Gastroesophageal reflux disease, esophagitis presence not specified K21.9 [place] [address] 12511- 2448 Aug, [place] [address] 56072- 0089 Jul, Enlarged lymph node in neck R59.0 [place] [address] 45081- 6042 Jul, [place] [address] 57067- 5776 Jul, Chronic obstructive pulmonary disease, unspecified COPD type J44.9 ; Tobacco use Z72.0 ; Leukocytosis D72.829 ; Hyperlipidemia E78.5 and Neck abscess L02.11 [place] [address] [place] [address] 75207- 7935 Jun, Shortness of breath R06.02 [place] [id number] [place] [address] 06895- 8901 May, Leukocytosis D72.829 and Shortness of breath R06.02 [place] [address] 60758- 2652 09 May, 2015 Low back pain M54.5 ; Hyperlipidemia E78.5 ; Leukocytosis D72.829 ; Other osteoarthritis of spine, cervical region M47.892 and Shortness of breath R06.02 [place] [id number] [place] [address] 25296- 1590 18 Feb, 2015 Chest pain 786.50 ; Tobacco use 305.1 ; Back pain 724.5 and Hyperlipemia 272.4 [place] [id number] [place] [address] 13395- 7535 Jan, [place] [address] 51350- 5404 Jan, Chronic low back pain 724.2 and Degenerative arthritis of cervical spine 721.[address] 04683- 9395 Jan, Chronic low back pain 724.2 and Neck pain 723.[address] 56794- 8070 Dec, Chronic low back pain 724.2 and Neck pain 723.[address] 75111- 8700 Nov, Chest pain 786.50 ; Dyspnea 786.09 ; Tobacco use 305.1 and Back pain 724.[address] 86174- 1371 Nov, [address] 15282- 4468 Nov, Disability examination V68.01 and Muscle pain 729.[address] 24246- 5777 October, History of [place] (myocardial infarction) 412 ; Hyperlipidemia LDL goal < 100 272.4 ; Leukocytosis 288.60 and Glucose intolerance (pre-diabetes ) 790.29 [address] [place] [id number] [place] [address] 39262- 7575 October, Chest pain 786.50 ; Chronic low back pain 724.2 ; History of NC (myocardial infarction) 412 and Neuropathy 355.9 [place] [place] [id number] [place] [address] 21063- 6152 October, Chronic low back pain 724.2 ; [...]
--- OUTSIDE RECORDS SUMMARY | 2018-04-03 14:51 | XMS REPORT ---
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 Name Role Phone ADALID WADE Unavailable PROBLEMS Type Condition ICD9-CM Code YUT87-SX Code Onset Dates Condition Status SNOMED Code Problem Tobacco use Z72.0 Active 145166348 Problem Tear of right rotator cuff, unspecified tear extent M75.101 Active 848705769 Problem Enlarged lymph node R59.9 Active 66342804 Problem Nocturnal hypoxia G47.34 Active 081551065 Problem Hiatal hernia K44.9 Active 93749638 Problem Bipolar disorder, unspecified F31.9 Active 41077150 Problem Panlobular emphysema J43.1 Active 4881223 Problem Hyperplastic colonic polyp, unspecified part of colon K63.5 Active 770092671 Problem Mood disorder F39 Active 52132334 Problem Hyperlipidemia, unspecified hyperlipidemia type E78.5 Active 45205059 Problem Uncontrolled type 2 diabetes mellitus with hyperglycemia, without long -term current use of insulin E11.65 Active 889859262 Problem Non-seasonal allergic rhinitis due to other allergic trigger J30.89 Active 44554447 Problem Internal hemorrhoids K64.8 Active 19013380 Problem GERD with esophagitis K21.0 Active 300176078 Problem External hemorrhoids K64.4 Active 62382407 Problem Other chronic gastritis without hemorrhage K29.50 Active 4350237 Problem Low back pain M54.5 Active 781842643 Problem Leukocytosis D72.829 Active 813317408 Problem Other osteoarthritis of spine, cervical region M47.892 Active 124110523 Problem Hyperlipidemia E78.5 Active 71015577 Problem History of GA (myocardial infarction) I25.2 Active 386831047 Problem Neuropathy G62.9 Active 678754391 ALLERGIES Substance Reaction Event Type Date Status Incruse Ellipta Unknown Drug Allergy May, Active Tetracycline HCl nausea and vomiting Drug Allergy May, Active Spiriva HandiHaler Suicidal ideation Drug Allergy May, Active Ampicillin anaphylaxis Drug Allergy May, Active strawberries Unknown Non Drug Allergy May, Active penicillin anaphylaxis Non Drug Allergy May, Active ENCOUNTERS Encounter Location Date Diagnosis [facility] [address] [address] Dec, [facility] [address] [address] Nov, [facility] [address] [address] 95[address] Nov, [facility] [address] [address]68 Nov, [facility] [id number] [address] Nov, [facility] [id number] [address] October, [facility] [address] [address] October, Low back pain M54.5 [facility] [address] [address] Sep, [facility] [address] [address] Sep, [facility] [address] [address] 64[address] Sep, Leukocytosis D72.829 [facility] [address] [address] 111[address] Sep, [facility] [address] [address] 24[address] Sep, [facility] [id number] [address] 5[address] Sep, [facility] [address] [address] 1146 Aug, Low back pain M54.5 [facility] [id number] [place] [address] 03533- 0454 Aug, Bipolar disorder, unspecified F31.9 [facility] [id number] [place] [address] 13111- 5671 Aug, [place] [place] [id number] [place] [address] 63438- 8860 Aug, [facility] [id number] [place] [address] 31725- 1919 Aug, Uncontrolled type 2 diabetes mellitus with hyperglycemia, without long-term current use of insulin E11.65 ; Non-healing surgical wound, initial encounter T81.89XA ; Cellulitis of abdominal wall L03.311 ; Hyperlipidemia E78.5 ; Chronic obstructive pulmonary disease, unspecified COPD type J44.9 and Tobacco use Z72.0 [place] [id number] [place] [address] 93848- 6645 Aug, [place] [id number] [place] [address] 31976- 5933 Jul, [place] [id number] [place] [address] 06909- 1410 Jul, [place] [id number] [place] [address] 90046- 3527 Jul, Type 2 diabetes mellitus 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, 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 E11.40 [place] [id number] [place] [address] 66887- 9146 Jun, Bipolar disorder, unspecified F31.9 [place] [id number] [place] [address] 67720- 1695 Jun, [facility] [id number] [place] [address] 08499- 3014 Jun, Bipolar disorder, unspecified F31.9 [place] [id number] [place] [address] 19544- 5138 Jun, Mood disorder F39 [facility] [place] [id number] [place] [address] 71884- 8624 Jun, [facility] [place] [id number] [place] [address] 09847- 2028 May, Fissure in skin of foot R23.4 ; Callus of foot L84 and Type 2 diabetes mellitus 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, 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 E11.40 [facility] [id number] [place] [address] 59361- 5828 04 May, 2017 Mood disorder F39 [place] [id number] [place] [address] 51097- 1573 Apr, [place] [id number] [place] [address] 65422- 2535 Apr, Cough R05 and Tobacco use Z72.0 [facility] [place] [id number] [place] [address] 40048- 9854 Apr, Cough R05 and Tobacco use Z72.0 [facility] [facility] [id number] [place] [address] 20606- 9160 06 Apr, 2017 Mood disorder F39 [place] [id number] [place] [address] 69452- 3890 Apr, Low back pain M54.5 [place] [id number] [place] [address] 96125- 0614 06 Apr, 2017 Uncontrolled type 2 diabetes mellitus with hyperglycemia, without long-term current use of insulin E11.65 [place] [id number] [place] [address] 25602- 5983 Apr, Uncontrolled type 2 diabetes mellitus with hyperglycemia, without long-term current use of insulin E11.65 [place] [id number] [place] [address] 97750- 4036 Mar, Bipolar disorder, unspecified F31.9 [facility] [facility] [address] [address] 7960 Mar, [place] [address] [place] [address] 35732- 1627 Mar, Bipolar disorder, unspecified F31.9 [place] [id number] [place] [address] 51280- 9136 Mar, Mood disorder F39 [place] [id number] [place] [address] 83983- 5556 Feb, [facility] [id number] [place] [address] 91745- 4016 Feb, [place] [id number] [place] [address] 97717- 6609 Feb, [place] [id number] [place] [address] 79801- 8773 Feb, Bipolar disorder, unspecified F31.9 [place] [id number] [place] [address] 05914- 0474 Feb, Uncontrolled type 2 diabetes mellitus with hyperglycemia, without long-term current use of insulin E11.65 ; Encounter for immunization Z23 ; Vasovagal syncope R55 and Low back pain M54.5 [place] [address] [address] 0[address] Jan, Bipolar disorder, unspecified F31.9 [place] [address] [address]- 3699 Jan, [facility] [id number] [place] [address] 24701- 4984 Jan, Fatigue, unspecified type R53.83 ; Nocturnal hypoxia G47.34 ; Leukocytosis D72.829 ; Other chronic gastritis without hemorrhage K29.50 ; Uncontrolled type 2 diabetes mellitus with hyperglycemia, without long-term current use of insulin E11.65 ; Alternating constipation and diarrhea R19.8 and Chronic obstructive pulmonary disease, unspecified COPD type J44.9 [place] [id number] [address]- 4990 Jan, [facility] [id number] [place] [address] 63937- 8908 Jan, Leukocytosis D72.829 [facility] [address] [address]- 6549 Jan, Mood disorder F39 [facility] [id number] [place] [address] 14516- 7271 Dec, Bipolar disorder, unspecified F31.9 [facility] [id number] [place] [address] 81504- 6557 Dec, [facility] [id number] [place] [address] 16917 -2464 Dec, Acute gastritis without bleeding K29.00 [facility] [id number] [place] [address] 30429- 3517 Dec, Leukocytosis D72.829 [facility] [id number] [place] [address] 77692- 5456 Dec, [facility] [id number] [place] [address] 28631- 5220 Dec, Dental examination Z01.20 [facility] [id number] [place] [address] 26891- 9475 Dec, [facility] [address] [place] [address] 57123- 5857 Dec, Leukocytosis D72.829 [facility] [address] [address]- 2047 Dec, Uncontrolled type 2 diabetes mellitus with hyperglycemia, without long-term current use of insulin E11.65 [facility] [address] [address]- 3395 Nov, Dental examination Z01.20 [facility] [id number] [place] [address] 84712- 9617 28 Nov, 2016 [facility] [address] [address]- 3885 Nov, Major depressive disorder, recurrent episode, moderate F33.1 [place] [address] [address]- 8786 06 Nov, 2016 Leukocytosis D72.829 [place] [id number] [place] [address] 27364- 3843 05 Nov, 2016 Mood disorder F39 [place] [address] [place] [address] 78687- 3748 Nov, Other osteoarthritis of spine, cervical region M47.892 and Uncontrolled type 2 diabetes mellitus with hyperglycemia, without long-term current use of insulin E11.65 [place] [address] [place] [address] 13596- 9570 Nov, Leukocytosis D72.829 and Elevated serum glucose R73.9 [place] [address] [address]- 8309 October, Elevated serum glucose R73.9 [place] [id number] [place] [address] 31669- 1750 October, Mood disorder F39 [place] [address] [address]- 1337 Sep, Major depressive disorder, recurrent episode, moderate F33.1 [place] [address] [address]- 0571 Sep, Mood disorder F39 [place] [address] [place] [address] 96084- 0652 Aug, [place] [address] [place] [address] 59407- 4905 Jul, Major depressive disorder, recurrent episode, moderate F33.1 [place] [address] [place] [address] 17896- 1864 Jul, Mood disorder F39 [facility] [address] [address]- 7784 Jul, [facility] [address] [address]- 3337 Jul, History of GA (myocardial infarction) I25.2 ; Hyperlipidemia E78.5 ; Prediabetes R73.09 ; Chronic obstructive pulmonary disease, unspecified COPD type J44.9 and Tobacco use Z72.0 [facility] [address] [address]- 1590 Jun, [facility] [id number] [place] [address] 25398- 5743 Jun, Mood disorder F39 [facility] [id number] [place] [address] 95660- 9588 Jun, [facility] [id number] [place] [address] 52895- 4176 May, Major depressive disorder, recurrent episode, moderate F33.1 and Primary insomnia F51.01 [facility] [address] [address]- 4347 May, Mood disorder F39 [facility] [address] [place] [address] 87027- 9980 Apr, [facility] [address] [address]- 7355 Apr, Mood disorder F39 [facility] [address] [address]- 1466 Apr, [facility] [address] [address]- 2767 Apr, [facility] [address] [address]- 8336 Apr, Chronic obstructive pulmonary disease, unspecified COPD type J44.9 and Non-seasonal allergic rhinitis due to other allergic trigger J30.89 [facility] [id number] [place] [address] 58660- 0122 11 Apr, 2016 Mood disorder F39 [facility] [id number] [place] [address] 28413- 0995 Apr, Major depressive disorder, recurrent episode, moderate F33.1 and PTSD (post-traumatic stress disorder) F43.10 [place] [address] 81260- 4581 Apr, [place] [id number] [place] [address] 81430- 7742 Apr, [place] [address] 64634- 2602 Apr, Chest pain, unspecified type R07.9 ; Chronic obstructive pulmonary disease, unspecified COPD type J44.9 ; Hyperlipidemia, unspecified hyperlipidemia type E78.5 and Tobacco use Z72.0 [place] [id number] [place] [address] 69068- 1878 Mar, Mood disorder F39 [place] [address] 75175- 8927 Mar, Mood disorder F39 [place] [id number] [place] [address] 23707- 9299 Mar, Other osteoarthritis of spine, cervical region M47.892 [place] [id number] [place] [address] 64997- 1315 Mar, Tear of right rotator cuff, unspecified tear extent M75.101 [facility] [id number] [place] [address] 56646- 6410 Mar, [place] [id number] [place] [address] 96353- 9137 Mar, Bipolar II disorder F31.81 [place] [id number] [place] [address] 29825- 0265 Mar, [place] [id number] [place] [address] 70298- 6748 Feb, Impingement syndrome of right shoulder M75.41 ; Tear of right rotator cuff, unspecified tear extent M75.101 and Loose body in right elbow M24.021 [place] [id number] [place] [address] 77377- 2285 Jan, [place] [address] 90355- 9102 Jan, [place] [id number] [place] [address] 04086- 0123 Jan, Prediabetes R73.09 ; Other chronic pain G89.29 and Pain in right shoulder M25.511 [place] [id number] [place] [address] 05638- 7746 Dec, [place] [id number] [place] [address] 58155- 5555 Dec, Heartburn R12 and Chest discomfort R07.89 [place] [id number] [place] [address] 92855- 5319 Dec, Impingement syndrome of right shoulder M75.41 and 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, 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 [place] [id number] [place] [address] 61113- 2547 Nov, [place] [id number] [place] [address] 81886- 8177 Nov, Leukocytosis D72.829 [place] [id number] [place] [address] 69723- 0038 Nov, [place] [id number] [place] [address] 67473- 2184 Nov, Enlarged lymph node R59.9 ; Chronic obstructive pulmonary disease, unspecified COPD type J44.9 ; Low back pain M54.5 ; Neuropathy G62.9 and Closed nondisplaced fracture of sternal end of right clavicle, sequela S42.017S [place] [id number] [place] [address] 60552- 8806 October, [place] [id number] [place] [address] 13519- 1349 October, [place] [id number] [place] [address] 62938- 5900 Sep, [place] [address] 02470- 8755 Aug, Double vision H53.2 ; Occipital headache R51 ; Chronic obstructive pulmonary disease, unspecified COPD type J44.9 and Gastroesophageal reflux disease, esophagitis presence not specified K21.9 [place] [id number] [place] [address] 65480- 5543 Aug, [place] [address] 46132- 9996 Jul, Enlarged lymph node in neck R59.0 [place] [id number] [place] [address] 53936- 0007 Jul, [place] [id number] [place] [address] 38742- 5528 Jul, Chronic obstructive pulmonary disease, unspecified COPD type J44.9 ; Tobacco use Z72.0 ; Leukocytosis D72.829 ; Hyperlipidemia E78.5 and Neck abscess L02.11 [place] [id number] [place] [address] 60393- 3981 Jun, Shortness of breath R06.02 [place] [id number] [place] [address] 65297- 1904 May, Leukocytosis D72.829 and Shortness of breath R06.02 [place] [id number] [place] [address] 67506- 5170 May, Low back pain M54.5 ; Hyperlipidemia E78.5 ; Leukocytosis D72.829 ; Other osteoarthritis of spine, cervical region M47.892 and Shortness of breath R06.02 [place] [id number] [place] [address] 81237- 7902 Feb, Chest pain 786.50 ; Tobacco use 305.1 ; Back pain 724.5 and Hyperlipemia 272.4 [place] [address] 63929- 6932 Jan, [place] [address] 99186- 3874 Jan, Chronic low back pain 724.2 and Degenerative arthritis of cervical spine 721.[address] 57236- 5964 Jan, Chronic low back pain 724.2 and Neck pain 723.[address] 06159- 2009 Dec, Chronic low back pain 724.2 and Neck pain 723.[address] 05054- 9784 Nov, Chest pain 786.50 ; Dyspnea 786.09 ; Tobacco use 305.1 and Back pain 724.5 [place] [id number] [place] [address] 47973- 9754 Nov, [address] 72741- 5862 Nov, Disability examination V68.01 and Muscle pain 729.1 [place] [id number] [place] [address] 51309- 1520 October, History of GA (myocardial infarction) 412 ; Hyperlipidemia LDL goal < 100 272.4 ; Leukocytosis 288.60 and Glucose intolerance (pre-diabetes ) 790.29 [place] [id number] [place] [address] 95889- 6644 October, Chest pain 786.50 ; Chronic low back pain 724.2 ; History of GA (myocardial infarction) 412 and Neuropathy 355.9 [facility] [address] [facility] [id number] [address]- 7850 October, Chronic low back pain 724.2 ; Chest pain 786.50 ; History of GA (myocardial infarction) 412 and Neuropathy 355.9 IMMUNIZATIONS No Known Immunizations SOCIAL HISTORY Never Assessed REASON FOR VISIT Diabetic foot care, cracking heels. Consult Dr. Wade; adriana RT(R) PLAN OF CARE Activity Details Follow Up 3 Months Reason: VITAL SIGNS MEDICATIONS Medication Instructions Dosage Frequency Start Date End Date Duration Status Albuterol Sulfate (2.5 MG/3ML) 0.083% Inhalation 4 times a day 3 ml 6h Unknown Blood Glucose Test - and lancets. DX E11.65 2 times a day- 3 times weekly. test blood sugar Nov, Unknown Nebulizer - Unknown Blood Glucose Monitor System w/Device DX- E 11.65 2 times a day- 3 times weekly. test blood sugar Nov, Unknown Dexilant 60 mg Orally Once a day 1 capsule 24h 90 days Unknown Symbicort 160-4.5 MCG/ACT Inhalation Twice a day 2 puffs 12h Aug, Unknown Citalopram Hydrobromide 20 MG Orally Once a day 1.5 tablets 24h 30 days Unknown Trazodone HCl 150 MG orally at night as needed for sleep 0.5 tablet 30 days Unknown Singulair 10 mg Orally Once a day 1 tablet in the evening 24h 90 days Unknown Proventil HFA 108 (90 Base) MCG/ACT Inhalation every 4 hrs 2 puffs as needed 4h 12 Jul, 2015 Unknown Carafate 1 GM Orally 4 times a day x 2 weeks then prn 1 tablet on an empty stomach Unknown Aspir-81 81 MG Orally Once a day 1 tablet 24h Unknown Metformin HCl 500 mg Orally Twice a day 2 tablet with meals 12h Nov, 90 days Unknown Oxygen inhalation Portable 2 liters per minute Unknown Crestor 10 MG Orally Once a day 1 tablet 24h Unknown Seroquel 200 MG Orally at night 1 tablet Dec, 30 days Unknown ZyrTEC 10 MG Orally Once a day 1 tablet 24h Unknown Cyclobenzaprine HCl 10 mg Orally Three times a day 1 tablet as needed 8h 30 days Unknown RESULTS No Results PROCEDURES No Known procedures [...]
--- OUTSIDE RECORDS SUMMARY | 2018-04-03 14:52 | XMS REPORT ---
Author Author KINJAL DORIS [facility] Address [facility] [place] [address] Care Team Providers Care Management Trainee Name Role Phone DORIS [place] Unavailable PROBLEMS Type Condition ICD9-CM Code ZLQ37-YU Code Onset Dates Condition Status SNOMED Code Problem Enlarged lymph node R59.9 Active 27586603 Problem Hyperlipidemia, unspecified hyperlipidemia type E78.5 Active 00396631 Problem Tear of right rotator cuff, unspecified tear extent M75.101 Active 335331344 Problem Other chronic pain G89.29 Active 70503552 Problem Internal hemorrhoids K64.8 Active 30646926 Problem Nocturnal hypoxia G47.34 Active 782467329 Problem Panlobular emphysema J43.1 Active 1241617 Problem Hyperplastic colonic polyp, unspecified part of colon K63.5 Active 870911290 Problem Non-seasonal allergic rhinitis due to other allergic trigger J30.89 Active 22222114 Problem Mood disorder F39 Active 47579423 Problem Bipolar disorder, unspecified F31.9 Active 69800827 Problem Uncontrolled type 2 diabetes mellitus with hyperglycemia, without long -term current use of insulin E11.65 Active 133409853 Problem GERD with esophagitis K21.0 Active 655085217 Problem Other osteoarthritis of spine, cervical region M47.892 Active 707836440 Problem Hiatal hernia K44.9 Active 86189753 Problem External hemorrhoids K64.4 Active 47849625 Problem Leukocytosis D72.829 Active 129785213 Problem Hyperlipidemia E78.5 Active 44621770 Problem History of OR (myocardial infarction) I25.2 Active 053645490 Problem Neuropathy G62.9 Active 790805430 Problem Other chronic gastritis without hemorrhage K29.50 Active 9490338 Problem Low back pain M54.5 Active 485070948 Problem Tobacco use Z72.0 Active 585992951 ALLERGIES No Information ENCOUNTERS Encounter Location Date Diagnosis [facility] [id number] [address] Dec, [facility] [id number] [place] [address] 62325- 6282 Dec, [facility] [id number] [place] [address] 66255- 1637 Nov, Bipolar disorder, unspecified F31.9 [facility] [id number] [place] [address] 44756- 8745 Nov, [facility] [id number] [place] [address] 09304- 6772 Nov, Pain in left knee M25.562 ; Other chronic pain G89.29 ; Hyperlipidemia E78.5 ; Leukocytosis D72.829 ; Other osteoarthritis of spine, cervical region M47.892 ; Tobacco use Z72.0 and Uncontrolled type 2 diabetes mellitus with hyperglycemia, without long-term current use of insulin E11.65 [facility] [id number] [place] [address] 01914- 1568 Nov, [facility] [id number] [place] [address] 52012- 8350 Nov, [facility] [id number] [place] [address] 20554- 7746 October, [facility] [id number] [place] [address] 98286- 5754 October, Low back pain M54.5 [facility] [id number] [place] [address] 50897- 7441 Sep, [facility] [id number] [address] 4131 Sep, [facility] [id number] [place] [address] 00566- 0110 Sep, Leukocytosis D72.829 [facility] [id number] [place] [address] 86722- 8409 Sep, [facility] [address], [place] [address] 6184 Sep, [facility] [id number] [place] [address] 71349- 1128 Sep, [facility] [address] [address] 2151 Aug, Low back pain M54.5 [facility] [id number] [place] [address] 95528- 4083 Aug, Bipolar disorder, unspecified F31.9 [facility] [id number] [place] [address] 62271- 7336 Aug, [facility] [id number] [place] [address] 31691- 2590 Aug, [facility] [id number] [place] [address] 73692- 0595 Aug, Uncontrolled type 2 diabetes mellitus with hyperglycemia, without long-term current use of insulin E11.65 ; Non-healing surgical wound, initial encounter T81.89XA ; Cellulitis of abdominal wall L03.311 ; Hyperlipidemia E78.5 ; Chronic obstructive pulmonary disease, unspecified COPD type J44.9 and Tobacco use Z72.0 [facility] [address] [address] 4943 Aug, [facility] [address], [place] [address] 9809 Jul, [facility] [address], [place] [address] 2685 Jul, [facility] [id number] [place] [address] 10845- 5918 Jul, Type 2 diabetes mellitus 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, unspecified [facility] insulin use status E11.40 [facility] [address] [address] 9599 Jun, Bipolar disorder, unspecified F31.9 [facility] [id number] [place] [address] 48542- 3499 Jun, [facility] [id number] [place] [address] 56282- 5253 Jun, Bipolar disorder, unspecified F31.9 [facility] [id number] [place] [address] 48910- 7475 Jun, Mood disorder F39 [address] 43964- 3654 Jun, [facility] [id number] [place] [address] 78246- 3805 May, Fissure in skin of foot R23.4 ; Callus of foot L84 and Type 2 diabetes mellitus 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, unspecified [facility] insulin use status E11.40 [facility] [id number] [place] [address] 47576- 4876 May, Mood disorder F[id number] [place] [address] 93690- 6253 Apr, [place] [facility] [address] 77341- 2167 Apr, Cough R05 and Tobacco use Z72.0 [facility] [id number] [place] [address] 53610- 8581 Apr, Cough R05 and Tobacco use Z72.0 [facility] [id number] [place] [address] 72038- 0524 Apr, Mood disorder F39 [address] [facility] [id number] [place] [address] 72862- 2219 Apr, Low back pain M54.5 [facility] [id number] [place] [address] 19767- 9196 Apr, Uncontrolled type 2 diabetes mellitus with hyperglycemia, without long-term current use of insulin E11.65 [facility] [id number] [place] [address] 29178- 9779 Apr, Uncontrolled type 2 diabetes mellitus with hyperglycemia, without long-term current use of insulin E11.65 [facility] [id number] [place] [address] 80712- 8604 Mar, Bipolar disorder, unspecified F31.9 [facility] [id number] [place] [address] 68259- 1437 Mar, [facility] [id number] [place] [address] 89868- 1992 Mar, Bipolar disorder, unspecified F31.9 [facility] [id number] [place] [address] 71716- 4796 Mar, Mood disorder F39 [facility] [id number] [place] [address] 40800- 9619 Feb, [facility] [id number] [place] [address] 33851- 2888 Feb, [facility] [id number] [place] [address] 22514- 8295 Feb, [facility] [id number] [place] [address] 92576- 5108 Feb, Bipolar disorder, unspecified F31.9 [facility] [id number] [place] [address] 80400- 2908 Feb, Uncontrolled type 2 diabetes mellitus with hyperglycemia, without long-term current use of insulin E11.65 ; Encounter for immunization Z23 ; Vasovagal syncope R55 and Low back pain M54.5 [facility] [id number] [place] [address] 09547- 5236 Jan, Bipolar disorder, unspecified F31.9 [facility] [id number] [place] [address] 18022- 8262 Jan, [facility] [id number] [place] [address] 75447- 3522 10 Aug, 2017 Fatigue, unspecified type R53.83 ; Nocturnal hypoxia G47.34 ; Leukocytosis D72.829 ; Other chronic gastritis without hemorrhage K29.50 ; Uncontrolled type 2 diabetes mellitus with hyperglycemia, without long-term current use of insulin E11.65 ; Alternating constipation and diarrhea R19.8 and Chronic obstructive pulmonary disease, unspecified COPD type J44.9 [facility] [address] 93341- 9264 Jan, [address] [place] [address] 43799- 3253 Jan, Leukocytosis D72.[address] 84847- 7417 Jan, Mood disorder F39 [address] 85891- 9133 Dec, Bipolar disorder, unspecified F31.9 [address] [place] 93740- 4029 Dec, [facility] [address] 35272 -7397 Dec, Acute gastritis without bleeding K29.00 [address] [facility] [id number] [place] [address] 65451- 2127 Dec, Leukocytosis D72.829 [facility] [id number] [place] [address] 27977- 9619 Dec, [facility] [id number] [place] [address] 70503- 9176 Dec, Dental examination Z01.[address] 45175- 7383 Dec, [facility] [id number] [place] [address] 14511- 2330 Dec, Leukocytosis D72.829 [address] 53599- 7370 Dec, Uncontrolled type 2 diabetes mellitus with hyperglycemia, without long-term current use of insulin E11.65 [place] [facility] [id number] [place] [address] 31863- 4165 Nov, Dental examination Z01.20 [address] [place] [id number] [place] [address] 95666- 1511 Nov, [facility] [id number] [place] [address] 54505- 6838 Nov, Major depressive disorder, recurrent episode, moderate F33.1 [place] [facility] [id number] [place] [address] 06965- 5181 Nov, Leukocytosis D72.829 [address] [facility] [id number] [place] [address] 51417- 7860 Nov, Mood disorder F39 [address] [id number] [place] [address] 24712- 3742 Nov, Other osteoarthritis of spine, cervical region M47.892 and Uncontrolled type 2 diabetes mellitus with hyperglycemia, without long-term current use of insulin E11.65 [address] [id number] [place] [address] 88181- 6448 Nov, Leukocytosis D72.829 and Elevated serum glucose R73.9 [address] [place] [id number] [place] [address] 64156- 3131 October, Elevated serum glucose R73.9 [address] [facility] [id number] [place] [address] 09354- 4040 October, Mood disorder F39 [id number] [place] [address] 24265- 8340 Sep, Major depressive disorder, recurrent episode, moderate F33.1 [address] [id number] [place] [address] 86203- 2596 17 Sep, 2016 Mood disorder F39 [id number] [place] [address] 64085- 2660 Aug, [facility] [address], [place] [address]- 9445 Jul, Major depressive disorder, recurrent episode, moderate F33.1 [facility] [address], [place] [address]- 7454 Jul, Mood disorder F39 [facility] [address], [place] [address]- 0859 Jul, [facility] [address], [place] [address]- 3456 Jul, History of OR (myocardial infarction) I25.2 ; Hyperlipidemia E78.5 ; Prediabetes R73.09 ; Chronic obstructive pulmonary disease, unspecified COPD type J44.9 and Tobacco use Z72.0 [facility] [address], [place] [address]- 1412 Jun, [facility] [address], [place] [address]- 6007 Jun, Mood disorder F39 [facility] [address], [place] [address]- 5005 Jun, [facility] [address], [place] [address]- 9306 May, Major depressive disorder, recurrent episode, moderate F33.1 and Primary insomnia F51.01 [facility] [address], [place] [address]- 5082 May, Mood disorder F39 [facility] [address], [place] [address]- 2735 Apr, [facility] [address], [place] [address]- 3883 Apr, Mood disorder F39 [facility] [address], [place] [address]- 4354 Apr, [facility] [id number] [place] [address] 91672- 3816 Apr, [place] [address] 95822- 8196 Apr, Chronic obstructive pulmonary disease, unspecified COPD type J44.9 and Non-seasonal allergic rhinitis due to other allergic trigger J30.89 [address] [address] 04965- 2800 Apr, Mood disorder F39 [address] [place] 55110- 3784 Apr, Major depressive disorder, recurrent episode, moderate F33.1 and PTSD (post-traumatic stress disorder) F43.10 [address] [id number] [place] [address] 48252- 4259 Apr, [address] 86526- 3352 Apr, [place] [id number] [place] [address] 27693- 5494 Apr, Chest pain, unspecified type R07.9 ; Chronic obstructive pulmonary disease, unspecified COPD type J44.9 ; Hyperlipidemia, unspecified hyperlipidemia type E78.5 and Tobacco use Z72.0 [address] [id number] [place] [address] 82866- 6915 Mar, Mood disorder F39 [address] [id number] [place] [address] 50464- 6595 Mar, Mood disorder F39 [address] [id number] [place] [address] 58371- 0369 Mar, Other osteoarthritis of spine, cervical region M47.892 [facility] [address] 66814- 4444 Mar, Tear of right rotator cuff, unspecified tear extent M75.101 [address] [address] 51464- 5265 Mar, [facility] [id number] [place] [address] 02343- 8305 Mar, Bipolar II disorder F31.81 [facility] [address] 93900- 1944 Mar, [facility] [address] 36498- 7480 Feb, Impingement syndrome of right shoulder M75.41 ; Tear of right rotator cuff, unspecified tear extent M75.101 and Loose body in right elbow M24.021 [address] [address] 08401- 2172 Jan, [place] [address] 27387- 2287 Jan, [place] [address] 82270- 3185 Jan, Prediabetes R73.09 ; Other chronic pain G89.29 and Pain in right shoulder M25.511 [address] [address] 24457- 8663 Dec, [place] [address] 64812- 6789 Dec, Heartburn R12 and Chest discomfort R07.89 [address] [address] 86733- 3871 Dec, Impingement syndrome of right shoulder M75.41 and 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, 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 [address] [address] 98803- 1857 Nov, [place] [address] 41948- 0068 Nov, Leukocytosis D72.829 [address] [address] 74537- 9841 Nov, [place] [id number] [place] [address] 04720- 1770 Nov, Enlarged lymph node R59.9 ; Chronic obstructive pulmonary disease, unspecified COPD type J44.9 ; Low back pain M54.5 ; Neuropathy G62.9 and Closed nondisplaced fracture of sternal end of right clavicle, sequela S42.017S [place] [id number] [place] [address] 23291- 2691 October, [place] [id number] [place] [address] 76913- 3413 October, [facility] [facility] [id number] [place] [address] 61556- 8843 Sep, [place] [id number] [place] [address] 19067- 6020 Aug, Double vision H53.2 ; Occipital headache R51 ; Chronic obstructive pulmonary disease, unspecified COPD type J44.9 and Gastroesophageal reflux disease, esophagitis presence not specified K21.9 [place] [id number] [place] [address] 77697- 5445 Aug, [facility] [id number] [place] [address] 18276- 2575 Jul, Enlarged lymph node in neck R59.0 [place] [id number] [place] [address] 66506- 4507 Jul, [facility] [id number] [place] [address] 97678- 5326 10 Jul, 2015 Chronic obstructive pulmonary disease, unspecified COPD type J44.9 ; Tobacco use Z72.0 ; Leukocytosis D72.829 ; Hyperlipidemia E78.5 and Neck abscess L02.11 [place] [id number] [place] [address] 50883- 0515 Jun, Shortness of breath R06.02 [place] [address] [place] [address]- 3059 17 May, 2015 Leukocytosis D72.829 and Shortness of breath R06.02 [place] [address] 04032- 1526 09 May, 2015 Low back pain M54.5 ; Hyperlipidemia E78.5 ; Leukocytosis D72.829 ; Other osteoarthritis of spine, cervical region M47.892 and Shortness of breath R06.02 [place] [address] 63443- 8925 18 Feb, 2015 Chest pain 786.50 ; Tobacco use 305.1 ; Back pain 724.5 and Hyperlipemia 272.4 [place] [address] 22158- 0168 Jan, [place] [address] 45262- 5191 Jan, Chronic low back pain 724.2 and Degenerative arthritis of cervical spine 721.0 [place] [address] 34681- 1350 Jan, Chronic low back pain 724.2 and Neck pain 723.1 [place] [address] 84787- 0352 Dec, Chronic low back pain 724.2 and Neck pain 723.1 [place] [address] 45860- 2339 Nov, Chest pain 786.50 ; Dyspnea 786.09 ; Tobacco use 305.1 and Back pain 724.5 [place] [address] 95021- 3182 Nov, [place] [address] 35437- 3681 04 Nov, 2014 Disability examination V68.01 and Muscle pain 729.1 [place] [address] 09115- 6701 October, History of OR (myocardial infarction) 412 ; Hyperlipidemia LDL goal < 100 272.4 ; Leukocytosis 288.60 and Glucose intolerance (pre-diabetes ) 790.29 [facility] [address] [facility] [id number] [place] [address]- 0801 October, Chest pain 786.50 ; Chronic low back pain 724.2 ; History of OR (myocardial infarction) 412 and Neuropathy 355.9 [facility] [address] [facility] [id number] [place] [address]- 2721 October, Chronic low back pain 724.2 ; Chest pain 786.50 ; History of OR (myocardial infarction) 412 and Neuropathy 355.9 IMMUNIZATIONS No Known Immunizations SOCIAL HISTORY Never Assessed REASON FOR VISIT requesting a returned call PLAN OF CARE VITAL SIGNS MEDICATIONS Unknown [...]
--- OUTSIDE RECORDS SUMMARY | 2018-04-03 14:53 | XMS REPORT ---
Author Author KINJAL DORIS [facility] Address [facility] [place] [address] Care Team Providers Care Immigration Services Officer Name Role Phone DORIS LAYTON Unavailable PROBLEMS Type Condition ICD9-CM Code CQB01-SW Code Onset Dates Condition Status SNOMED Code Problem Enlarged lymph node R59.9 Active 98301383 Problem Hyperlipidemia, unspecified hyperlipidemia type E78.5 Active 00998485 Problem Tear of right rotator cuff, unspecified tear extent M75.101 Active 842334910 Problem Other chronic pain G89.29 Active 27360551 Problem Internal hemorrhoids K64.8 Active 81343812 Problem Nocturnal hypoxia G47.34 Active 761060689 Problem Panlobular emphysema J43.1 Active 0094428 Problem Hyperplastic colonic polyp, unspecified part of colon K63.5 Active 156245206 Problem Non-seasonal allergic rhinitis due to other allergic trigger J30.89 Active 37239828 Problem Mood disorder F39 Active 66148938 Problem Bipolar disorder, unspecified F31.9 Active 00632810 Problem Uncontrolled type 2 diabetes mellitus with hyperglycemia, without long -term current use of insulin E11.65 Active 376766560 Problem GERD with esophagitis K21.0 Active 308060595 Problem Other osteoarthritis of spine, cervical region M47.892 Active 362163791 Problem Hiatal hernia K44.9 Active 33775606 Problem External hemorrhoids K64.4 Active 29747962 Problem Leukocytosis D72.829 Active 120485122 Problem Hyperlipidemia E78.5 Active 20290517 Problem History of GA (myocardial infarction) I25.2 Active 173800222 Problem Neuropathy G62.9 Active 564415692 Problem Other chronic gastritis without hemorrhage K29.50 Active 5138757 Problem Low back pain M54.5 Active 743261323 Problem Tobacco use Z72.0 Active 988308740 ALLERGIES No Information ENCOUNTERS Encounter Location Date Diagnosis [facility] [id number], [place] [address] Dec, [facility] [id number] [place] [address] 17037- 9455 Dec, [facility] [id number] [place] [address] 86762- 4686 Nov, Bipolar disorder, unspecified F31.9 [facility] [id number] [place] [address] 81355- 2662 Nov, [facility] [id number] [place] [address] 77389- 5339 Nov, Pain in left knee M25.562 ; Other chronic pain G89.29 ; Hyperlipidemia E78.5 ; Leukocytosis D72.829 ; Other osteoarthritis of spine, cervical region M47.892 ; Tobacco use Z72.0 and Uncontrolled type 2 diabetes mellitus with hyperglycemia, without long-term current use of insulin E11.65 [facility] [id number] [place] [address] 40746- 4948 Nov, [facility] [id number] [place] [address] 03297- 7661 Nov, [facility] [id number] [place] [address] 73253- 7702 October, [facility] [id number] [place] [address] 73799- 9488 October, Low back pain M54.5 [facility] [id number] [place] [address] 24317- 7523 Sep, [facility] [id number], [place] [address] 6035 Sep, [facility] [id number] [place] [address] 97832- 1067 Sep, Leukocytosis D72.829 [facility] [id number] [place] [address] 84440- 3808 Sep, [facility] [address], [place] [address] 8857 Sep, [facility] [id number] [place] [address] 99103- 5098 Sep, [facility] [address], [place] [address] 3915 Aug, Low back pain M54.5 [facility] [id number] [place] [address] 44913- 6943 Aug, Bipolar disorder, unspecified F31.9 [facility] [address] [place] [address] 69291- 2625 Aug, [facility] [id number] [place] [address] 27697- 1693 Aug, [facility] [id number] [place] [address] 58554- 2805 Aug, Uncontrolled type 2 diabetes mellitus with hyperglycemia, without long-term current use of insulin E11.65 ; Non-healing surgical wound, initial encounter T81.89XA ; Cellulitis of abdominal wall L03.311 ; Hyperlipidemia E78.5 ; Chronic obstructive pulmonary disease, unspecified COPD type J44.9 and Tobacco use Z72.0 [facility] [address], [place] [address] 2470 Aug, [facility] [address], [place] [address]- 1315 Jul, [facility] [address], [place] [address] 2011 Jul, [facility] [address] [place] [address] 37569- 9903 Jul, Type 2 diabetes mellitus 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, unspecified senior living insulin use status E11.40 [facility] [address], [place] [address] 9570 Jun, Bipolar disorder, unspecified F31.9 [facility] [id number] [place] [address] 69819- 0743 Jun, [facility] [id number] [place] [address] 96904- 5758 Jun, Bipolar disorder, unspecified F31.9 [facility] [id number] [place] [address] 27745- 7755 Jun, Mood disorder F39 [address] 94280- 0264 Jun, [address] [id number] [place] [address] 31481- 0679 May, Fissure in skin of foot R23.4 ; Callus of foot L84 and Type 2 diabetes mellitus 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, unspecified senior living insulin use status E11.40 [address] [id number] [place] [address] 18028- 7361 May, Mood disorder F39 [id number] [place] [address] 17482- 1329 Apr, [address] 55233- 1584 Apr, Cough R05 and Tobacco use Z72.0 [address] [id number] [place] [address] 43407- 1862 Apr, Cough R05 and Tobacco use Z72.0 [address] [id number] [place] [address] 23126- 9141 Apr, Mood disorder F39 [id number] [place] [address] 88188- 5237 Apr, Low back pain M54.5 [address] [id number] [place] [address] 97851- 9509 Apr, Uncontrolled type 2 diabetes mellitus with hyperglycemia, without long-term current use of insulin E11.65 [address] [place] [id number] [place] [address] 47431- 3306 Apr, Uncontrolled type 2 diabetes mellitus with hyperglycemia, without long-term current use of insulin E11.65 [facility] [id number] [place] [address] 12809- 9644 Mar, Bipolar disorder, unspecified F31.9 [facility] [id number] [place] [address] 96549- 7207 Mar, [facility] [id number] [place] [address] 26221- 0506 Mar, Bipolar disorder, unspecified F31.9 [facility] [id number] [place] [address] 09950- 4893 Mar, Mood disorder F39 [facility] [id number] [place] [address] 55834- 0374 Feb, [facility] [id number] [place] [address] 37810- 2555 Feb, [facility] [id number] [place] [address] 48269- 9423 Feb, [facility] [id number] [place] [address] 96736- 7607 Feb, Bipolar disorder, unspecified F31.9 [facility] [address] [place] [address] 64145- 9030 Feb, Uncontrolled type 2 diabetes mellitus with hyperglycemia, without long-term current use of insulin E11.65 ; Encounter for immunization Z23 ; Vasovagal syncope R55 and Low back pain M54.5 [facility] [id number] [place] [address] 16915- 7804 Jan, Bipolar disorder, unspecified F31.9 [facility] [id number] [place] [address] 89978- 6341 Jan, [facility] [address] [place] [address] 36496- 9017 10 Aug, 2017 Fatigue, unspecified type R53.83 ; Nocturnal hypoxia G47.34 ; Leukocytosis D72.829 ; Other chronic gastritis without hemorrhage K29.50 ; Uncontrolled type 2 diabetes mellitus with hyperglycemia, without long-term current use of insulin E11.65 ; Alternating constipation and diarrhea R19.8 and Chronic obstructive pulmonary disease, unspecified COPD type J44.9 [facility] [address] 90253- 6368 Jan, [address] 00607- 8071 Jan, Leukocytosis D72.[address] 77771- 5203 Jan, Mood disorder F39 [address] 97474- 2307 Dec, Bipolar disorder, unspecified F31.9 [address] 99786- 2041 Dec, [facility] [address] 84527 -9479 Dec, Acute gastritis without bleeding K29.00 [id number] [place] [address] 18795- 1364 Dec, Leukocytosis D72.829 [address] [id number] [place] [address] 63403- 0868 Dec, [id number] [place] [address] 96561- 2777 Dec, Dental examination Z01.[address] 64874- 8968 Dec, [address] [id number] [place] [address] 84695- 7321 Dec, Leukocytosis D72.829 [address] 66582- 6703 Dec, Uncontrolled type 2 diabetes mellitus with hyperglycemia, without long-term current use of insulin E11.65 [address] [place] [address] 76544- 0132 Nov, Dental examination Z01.20 [address] [place] [address] 37419- 1841 Nov, [id number] [place] [address] 12522- 7921 Nov, Major depressive disorder, recurrent episode, moderate F33.1 [id number] [place] [address] 41675- 0492 Nov, Leukocytosis D72.829 [address] [id number] [place] [address] 41166- 7346 Nov, Mood disorder F39 [id number] [place] [address] 76805- 1052 Nov, Other osteoarthritis of spine, cervical region M47.892 and Uncontrolled type 2 diabetes mellitus with hyperglycemia, without long-term current use of insulin E11.65 [id number] [place] [address] 74855- 7772 Nov, Leukocytosis D72.829 and Elevated serum glucose R73.9 [address] [place] [address] 07619- 7371 October, Elevated serum glucose R73.9 [address] [id number] [place] [address] 66003- 5302 October, Mood disorder F39 [address] [place] [address] 73406- 0447 Sep, Major depressive disorder, recurrent episode, moderate F33.1 [address] [place] [address] 41924- 8070 17 Sep, 2016 Mood disorder F39 [id number] [place] [address] 86175- 0862 Aug, [facility] [address], [place] [address]- 8291 Jul, Major depressive disorder, recurrent episode, moderate F33.1 [facility] [address], [place] [address]- 1394 Jul, Mood disorder F39 [facility] [address], [place] [address]- 6437 Jul, [facility] [address], [place] [address]- 5230 Jul, History of GA (myocardial infarction) I25.2 ; Hyperlipidemia E78.5 ; Prediabetes R73.09 ; Chronic obstructive pulmonary disease, unspecified COPD type J44.9 and Tobacco use Z72.0 [facility] [address], [place] [address]- 2980 Jun, [facility] [address], [place] [address]- 7807 Jun, Mood disorder F39 [facility] [address], [place] [address]- 1542 Jun, [facility] [address], [place] [address]- 6892 May, Major depressive disorder, recurrent episode, moderate F33.1 and Primary insomnia F51.01 [facility] [address], [place] [address]- 8645 May, Mood disorder F39 [facility] [address], [place] [address]- 8965 Apr, [facility] [address], [place] [address]- 0435 Apr, Mood disorder F39 [facility] [address], [place] [address]- 9368 Apr, [facility] [id number] [place] [address] 03653- 5707 Apr, [address] 12859- 7094 Apr, Chronic obstructive pulmonary disease, unspecified COPD type J44.9 and Non-seasonal allergic rhinitis due to other allergic trigger J30.89 [address] 69766- 9778 Apr, Mood disorder F39 [address] 22684- 6089 Apr, Major depressive disorder, recurrent episode, moderate F33.1 and PTSD (post-traumatic stress disorder) F43.10 [id number] [place] [address] 21337- 0631 Apr, [address] 48467- 8387 Apr, [id number] [place] [address] 21308- 6237 Apr, Chest pain, unspecified type R07.9 ; Chronic obstructive pulmonary disease, unspecified COPD type J44.9 ; Hyperlipidemia, unspecified hyperlipidemia type E78.5 and Tobacco use Z72.0 [id number] [place] [address] 28717- 6388 Mar, Mood disorder F39 [id number] [place] [address] 11059- 4042 Mar, Mood disorder F39 [id number] [place] [address] 46447- 2540 Mar, Other osteoarthritis of spine, cervical region M47.892 [address] 93812- 0986 Mar, Tear of right rotator cuff, unspecified tear extent M75.101 [address] 07637- 8806 Mar, [address] [id number] [place] [address] 61992- 2439 Mar, Bipolar II disorder F31.81 [facility] [address] 18414- 5237 Mar, [facility] [address] 51263- 7247 Feb, Impingement syndrome of right shoulder M75.41 ; Tear of right rotator cuff, unspecified tear extent M75.101 and Loose body in right elbow M24.021 [address] 77926- 8158 Jan, [address] [place] 35893- 2783 Jan, [address] [place] 66630- 0538 Jan, Prediabetes R73.09 ; Other chronic pain G89.29 and Pain in right shoulder M25.511 [address] 02770- 7425 Dec, [address] 69723- 9938 Dec, Heartburn R12 and Chest discomfort R07.89 [address] 27361- 3371 Dec, Impingement syndrome of right shoulder M75.41 and 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, 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 [address] 27812- 3134 Nov, [address] [place] 51075- 1169 Nov, Leukocytosis D72.829 [address] 42173- 4136 Nov, [address] [id number] [place] [address] 94895- 7536 Nov, Enlarged lymph node R59.9 ; Chronic obstructive pulmonary disease, unspecified COPD type J44.9 ; Low back pain M54.5 ; Neuropathy G62.9 and Closed nondisplaced fracture of sternal end of right clavicle, sequela S42.017S [id number] [place] [address] 45555- 1990 October, [address] [id number] [place] [address] 80510- 7411 October, [address] [id number] [place] [address] 88443- 2869 Sep, [address] [id number] [place] [address] 95682- 9983 Aug, Double vision H53.2 ; Occipital headache R51 ; Chronic obstructive pulmonary disease, unspecified COPD type J44.9 and Gastroesophageal reflux disease, esophagitis presence not specified K21.9 [address] [id number] [place] [address] 80481- 7651 Aug, [address] [id number] [place] [address] 68170- 0342 Jul, Enlarged lymph node in neck R59.0 [address] [place] [id number] [place] [address] 34964- 0746 Jul, [address] [id number] [place] [address] 21669- 8929 10 Jul, 2015 Chronic obstructive pulmonary disease, unspecified COPD type J44.9 ; Tobacco use Z72.0 ; Leukocytosis D72.829 ; Hyperlipidemia E78.5 and Neck abscess L02.11 [address] [place] [place] [address] 91825- 3441 Jun, Shortness of breath R06.02 [address] [place] [address]- 0751 17 May, 2015 Leukocytosis D72.829 and Shortness of breath R06.02 [address] [place] 93466- 3489 09 May, 2015 Low back pain M54.5 ; Hyperlipidemia E78.5 ; Leukocytosis D72.829 ; Other osteoarthritis of spine, cervical region M47.892 and Shortness of breath R06.02 [address] [place] 48048- 0069 18 Feb, 2015 Chest pain 786.50 ; Tobacco use 305.1 ; Back pain 724.5 and Hyperlipemia 272.4 [address] [place] [address] 38303- 4068 Jan, [place] [address] 96510- 3278 Jan, Chronic low back pain 724.2 and Degenerative arthritis of cervical spine 721.0 [place] [address] 95380- 5311 Jan, Chronic low back pain 724.2 and Neck pain 723.1 [address] [place] [address] 41181- 3209 Dec, Chronic low back pain 724.2 and Neck pain 723.1 [place] [place] [address] 12195- 7169 Nov, Chest pain 786.50 ; Dyspnea 786.09 ; Tobacco use 305.1 and Back pain 724.5 [place] [address] 27013- 6505 Nov, [place] [address] 30720- 4493 04 Nov, 2014 Disability examination V68.01 and Muscle pain 729.1 [place] [address] 66860- 1572 October, History of GA (myocardial infarction) 412 ; Hyperlipidemia LDL goal < 100 272.4 ; Leukocytosis 288.60 and Glucose intolerance (pre-diabetes ) 790.29 [facility] [address] [facility] [id number] [place] [address]- 9430 October, Chest pain 786.50 ; Chronic low back pain 724.2 ; History of GA (myocardial infarction) 412 and Neuropathy 355.9 [facility] [address] [facility] [id number] [place] [address]- 9698 October, Chronic low back pain 724.2 ; Chest pain 786.50 ; History of GA (myocardial infarction) 412 and Neuropathy 355.9 IMMUNIZATIONS No Known Immunizations SOCIAL HISTORY Never Assessed REASON FOR VISIT Lab- tcuppettRN PLAN OF CARE VITAL SIGNS MEDICATIONS Unknown Medications RESULTS Name Result Date Reference Range A1C (IN HOUSE) 2017-07-12 A1C IN HOUSE 7.1 4.3 - 5.6 % Previous A1c 6.8 Lot [id number] Exp date 03/23 PROCEDURES Procedure Date Ordered Result Body Site GLYCATED HEMOGLOBIN TEST Jul 12, 2017 INSTRUCTIONS MEDICATIONS ADMINISTERED No Known [...]
--- OUTSIDE RECORDS SUMMARY | 2018-04-03 14:54 | XMS REPORT ---
Author Author ERWIN LEO [facility] Address [address] [place] [address] Care Team Providers Care Excel Developer Name Role Phone ERWIN LEO Unavailable PROBLEMS Type Condition ICD9-CM Code COE80-HH Code Onset Dates Condition Status SNOMED Code Problem Tobacco use Z72.0 Active 654032331 Problem Tear of right rotator cuff, unspecified tear extent M75.101 Active 694010677 Problem Enlarged lymph node R59.9 Active 20165758 Problem Nocturnal hypoxia G47.34 Active 770099467 Problem Hiatal hernia K44.9 Active 24018139 Problem Bipolar disorder, unspecified F31.9 Active 17521676 Problem Panlobular emphysema J43.1 Active 3911745 Problem Hyperplastic colonic polyp, unspecified part of colon K63.5 Active 273004244 Problem Mood disorder F39 Active 75538669 Problem Hyperlipidemia, unspecified hyperlipidemia type E78.5 Active 03337313 Problem Uncontrolled type 2 diabetes mellitus with hyperglycemia, without long -term current use of insulin E11.65 Active 012364535 Problem Non-seasonal allergic rhinitis due to other allergic trigger J30.89 Active 00282373 Problem Internal hemorrhoids K64.8 Active 98380036 Problem GERD with esophagitis K21.0 Active 890471099 Problem External hemorrhoids K64.4 Active 00187836 Problem Other chronic gastritis without hemorrhage K29.50 Active 9922294 Problem Low back pain M54.5 Active 962717836 Problem Leukocytosis D72.829 Active 270668252 Problem Other osteoarthritis of spine, cervical region M47.892 Active 316686594 Problem Hyperlipidemia E78.5 Active 70800129 Problem History of NE (myocardial infarction) I25.2 Active 445773790 Problem Neuropathy G62.9 Active 881258433 ALLERGIES No Information ENCOUNTERS Encounter Location Date Diagnosis [facility] [address] [facility] [id number] [address] Dec, [facility] [address] [facility] [id number] [place] [address] Nov, [facility] [address] [facility] [id number] [place] [address] 5[address] Nov, [facility] [address] [facility] [id number] [place] [address] 4048 Nov, [facility] [address] [facility] [id number] [place] [address] 89[address] Nov, [facility] [address] [facility] [id number] [place] [address] October, [facility] [address] [place] [id number] [place] [address] October, Low back pain M54.5 [facility] [address] [place] [address] Sep, [facility] [address] [place] [address] Sep, [facility] [address], [place] [address] Sep, Leukocytosis D72.829 [facility] [address], [place] [address] Sep, [facility] [address] [place] [address] 1680 Sep, [facility] [id number] [place] [address]- 9621 Sep, [facility] [address], [place] [address] Aug, Low back pain M54.5 [facility] [id number] [place] [address] 7184 Aug, Bipolar disorder, unspecified F31.9 [facility] [id number] [place] [address] 74074- 0587 Aug, [facility] [id number] [place] [address] 33597- 7714 Aug, [place] [id number] [place] [address] 09308- 3461 Aug, Uncontrolled type 2 diabetes mellitus with hyperglycemia, without long-term current use of insulin E11.65 ; Non-healing surgical wound, initial encounter T81.89XA ; Cellulitis of abdominal wall L03.311 ; Hyperlipidemia E78.5 ; Chronic obstructive pulmonary disease, unspecified COPD type J44.9 and Tobacco use Z72.0 [place] [address] [address] [id number] [place] [address] 44627- 9604 Aug, [place] [address] [id number] [place] [address] 63608- 7647 Jul, [place] [id number] [place] [address] 36213- 3978 Jul, [place] [id number] [place] [address] 46085- 3083 Jul, Type 2 diabetes mellitus 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, unspecified shelter insulin use status E11.40 [place] [address] [address] [id number] [place] [address] 78756- 1364 Jun, Bipolar disorder, unspecified F31.9 [place] [id number] [place] [address] 94562- 5655 Jun, [place] [id number] [place] [address] 30181- 2198 Jun, Bipolar disorder, unspecified F31.9 [place] [address] [id number] [place] [address] 71135- 3452 Jun, Mood disorder F39 [place] [id number] [place] [address] 62320- 6643 Jun, [facility] [id number] [place] [address] 71349- 5169 May, Fissure in skin of foot R23.4 ; Callus of foot L84 and Type 2 diabetes mellitus 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, 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 [place] [id number] [place] [address] 80579- 5103 04 May, 2017 Mood disorder F39 [place] [id number] [place] [address] 97453- 6867 Apr, [place] [address] 86093- 7696 Apr, Cough R05 and Tobacco use Z72.0 [place] [address] 66288- 3150 Apr, Cough R05 and Tobacco use Z72.0 [place] [id number] [place] [address] 32014- 3042 Apr, Mood disorder F39 [place] [id number] [place] [address] 72801- 6900 Apr, Low back pain M54.5 [place] [id number] [place] [address] 68343- 0847 Apr, Uncontrolled type 2 diabetes mellitus with hyperglycemia, without long-term current use of insulin E11.65 [place] [address] [place] [address] 26513- 9359 Apr, Uncontrolled type 2 diabetes mellitus with hyperglycemia, without long-term current use of insulin E11.65 [place] [address] [id number] [place] [address] 55707- 1015 Mar, Bipolar disorder, unspecified F31.9 [place] [id number] [place] [address] 62400- 2463 Mar, [place] [id number] [place] [address] 66307- 3176 Mar, Bipolar disorder, unspecified F31.9 [place] [address] [place] [id number] [place] [address] 60233- 6470 Mar, Mood disorder F39 [place] [address] [id number] [place] [address] 67990- 6444 Feb, [place] [address] [id number] [place] [address] 73169- 0303 Feb, [place] [address] [address] [id number] [place] [address] 51848- 2534 Feb, [place] [address] [address] [id number] [place] [address] 75986- 4642 Feb, Bipolar disorder, unspecified F31.9 [place] [address] [address] [id number] [place] [address] 68718- 8032 Feb, Uncontrolled type 2 diabetes mellitus with hyperglycemia, without long-term current use of insulin E11.65 ; Encounter for immunization Z23 ; Vasovagal syncope R55 and Low back pain M54.5 [place] [id number] [place] [address] 06205- 1633 Jan, Bipolar disorder, unspecified F31.9 [place] [id number] [place] [address] 12594- 6619 Jan, [place] [id number] [place] [address] 03714- 6887 Jan, Fatigue, unspecified type R53.83 ; Nocturnal hypoxia G47.34 ; Leukocytosis D72.829 ; Other chronic gastritis without hemorrhage K29.50 ; Uncontrolled type 2 diabetes mellitus with hyperglycemia, without long-term current use of insulin E11.65 ; Alternating constipation and diarrhea R19.8 and Chronic obstructive pulmonary disease, unspecified COPD type J44.9 [place] [id number] [place] [address] 56319- 3365 Jan, [place] [id number] [place] [address] 30696- 9752 Jan, Leukocytosis D72.829 [place] [address] [place] [address]- 5044 Jan, Mood disorder F39 [facility] [id number] [place] [address] 26107- 5256 Dec, Bipolar disorder, unspecified F31.9 [facility] [address], [place] [address]- 0292 Dec, [facility] [id number] [place] [address] 88271 -0439 Dec, Acute gastritis without bleeding K29.00 [facility] [address] [place] [address] 84564- 3385 Dec, Leukocytosis D72.829 [facility] [id number] [place] [address] 80197- 5887 Dec, [facility] [id number] [place] [address] 51693- 1068 Dec, Dental examination Z01.20 [facility] [id number] [place] [address] 91081- 7268 Dec, [facility] [id number] [place] [address] 42374- 1558 Dec, Leukocytosis D72.829 [facility] [id number] [place] [address] 77903- 2085 Dec, Uncontrolled type 2 diabetes mellitus with hyperglycemia, without long-term current use of insulin E11.65 [facility] [address], [place] [address]- 5973 Nov, Dental examination Z01.20 [facility] [id number] [place] [address] 76818- 3154 Nov, [facility] [id number] [place] [address] 69519- 8696 Nov, Major depressive disorder, recurrent episode, moderate F33.1 [facility] [id number] [place] [address] 44777- 4080 Nov, Leukocytosis D72.829 [facility] [address] [place] [address] 50652- 0836 Nov, Mood disorder F39 [facility] [address] [place] [address] 97194- 2405 Nov, Other osteoarthritis of spine, cervical region M47.892 and Uncontrolled type 2 diabetes mellitus with hyperglycemia, without long-term current use of insulin E11.65 [facility] [address] [place] [address] 33742- 8584 Nov, Leukocytosis D72.829 and Elevated serum glucose R73.9 [place] [id number] [place] [address] 06435- 9958 October, Elevated serum glucose R73.9 [place] [id number] [place] [address] 00554- 7284 October, Mood disorder F39 [facility] [address] [place] [address] 07450- 7712 Sep, Major depressive disorder, recurrent episode, moderate F33.1 [place] [address] [place] [address] 39607- 3840 Sep, Mood disorder F39 [facility] [address], [place] [address]- 9844 Aug, [facility] [id number] [place] [address] 35107- 7660 Jul, Major depressive disorder, recurrent episode, moderate F33.1 [facility] [address] [place] [address] 54215- 9600 Jul, Mood disorder F39 [facility] [address] [place] [address] 67265726- 1029 Jul, [place] [address] [place] [address] 320216- 7229 Jul, History of NE (myocardial infarction) I25.2 ; Hyperlipidemia E78.5 ; Prediabetes R73.09 ; Chronic obstructive pulmonary disease, unspecified COPD type J44.9 and Tobacco use Z72.0 [place] [id number] [place] [address] 73573- 7653 Jun, [place] [id number] [place] [address] 74577- 6716 Jun, Mood disorder F39 [place] [address] 52569- 8994 Jun, [place] [address] 69123- 7706 May, Major depressive disorder, recurrent episode, moderate F33.1 and Primary insomnia F51.01 [place] [address] [id number] [place] [address] 13840- 4688 May, Mood disorder F39 [place] [id number] [place] [address] 09687- 7988 Apr, [place] [id number] [place] [address] 56142- 9403 Apr, Mood disorder F39 [place] [id number] [place] [address] 96006- 9692 Apr, [place] [id number] [place] [address] 70283- 9881 Apr, [place] [id number] [place] [address] 03055- 6129 Apr, Chronic obstructive pulmonary disease, unspecified COPD type J44.9 and Non-seasonal allergic rhinitis due to other allergic trigger J30.89 [place] [address] [address] [id number] [place] [address] 12913- 5606 Apr, Mood disorder F39 [place] [address] [id number] [place] [address] 22584- 5276 10 Nov, 2016 Major depressive disorder, recurrent episode, moderate F33.1 and PTSD (post-traumatic stress disorder) F43.10 [place] [address] [id number] [place] [address] 07760- 1877 Apr, [facility] [id number] [place] [address] 37064- 4431 Apr, [place] [id number] [place] [address] 43068- 0492 Apr, Chest pain, unspecified type R07.9 ; Chronic obstructive pulmonary disease, unspecified COPD type J44.9 ; Hyperlipidemia, unspecified hyperlipidemia type E78.5 and Tobacco use Z72.0 [place] [address] [id number] [place] [address] 62861- 7210 Mar, Mood disorder F39 [place] [address] [id number] [place] [address] 42661- 9385 Mar, Mood disorder F39 [place] [address] [address] [id number] [place] [address] 21880- 9918 Mar, Other osteoarthritis of spine, cervical region M47.892 [place] [address] [id number] [place] [address] 69297- 2022 Mar, Tear of right rotator cuff, unspecified tear extent M75.101 [place] [address] [place] [address] [id number] [place] [address] 40617- 5661 Mar, [place] [address] [address] [id number] [place] [address] 28519- 2508 Mar, Bipolar II disorder F31.81 [place] [address] [place] [address] [id number] [place] [address] 10356- 7457 Mar, [place] [address] [address] [id number] [place] [address] 72951- 7889 Feb, Impingement syndrome of right shoulder M75.41 ; Tear of right rotator cuff, unspecified tear extent M75.101 and Loose body in right elbow M24.021 [place] [address] [id number] [place] [address] 07276- 9323 Jan, [place] [id number] [place] [address] 05902- 2856 Jan, [place] [address] [address] [id number] [place] [address] 51827- 1961 Jan, Prediabetes R73.09 ; Other chronic pain G89.29 and Pain in right shoulder M25.511 [place] [address] [address] [id number] [place] [address] 45764- 3700 Dec, [place] [address] [address] [id number] [place] [address] 27952- 0233 Dec, Heartburn R12 and Chest discomfort R07.89 [place] [address] [address] [id number] [place] [address] 85128- 0160 Dec, Impingement syndrome of right shoulder M75.41 and 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, 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 [place] [address] [id number] [place] [address] 08836- 7737 Nov, [place] [address] [place] [address] [id number] [place] [address] 70334- 9452 Nov, Leukocytosis D72.829 [place] [address] [place] [address] [id number] [place] [address] 85044- 1198 Nov, [place] [address] [place] [address] [id number] [place] [address] 49603- 3162 Nov, Enlarged lymph node R59.9 ; Chronic obstructive pulmonary disease, unspecified COPD type J44.9 ; Low back pain M54.5 ; Neuropathy G62.9 and Closed nondisplaced fracture of sternal end of right clavicle, sequela S42.017S [place] [address] [place] [address] 99547- 5540 October, [place] [address] [id number] [place] [address] 13005- 2362 October, [place] [address] [address] [id number] [place] [address] 85671- 7781 Sep, [place] [address] 52855- 7716 Aug, Double vision H53.2 ; Occipital headache R51 ; Chronic obstructive pulmonary disease, unspecified COPD type J44.9 and Gastroesophageal reflux disease, esophagitis presence not specified K21.9 [place] [address] 90855- 4787 Aug, [place] [address] 66878- 9007 Jul, Enlarged lymph node in neck R59.0 [place] [address] 74374- 8729 Jul, [place] [address] 47978- 7764 Jul, Chronic obstructive pulmonary disease, unspecified COPD type J44.9 ; Tobacco use Z72.0 ; Leukocytosis D72.829 ; Hyperlipidemia E78.5 and Neck abscess L02.11 [place] [address] [address] [id number] [place] [address] 48117- 7899 Jun, Shortness of breath R06.02 [place] [address] [id number] [place] [address] 01976- 0263 May, Leukocytosis D72.829 and Shortness of breath R06.02 [place] [address] 45269- 1388 09 May, 2015 Low back pain M54.5 ; Hyperlipidemia E78.5 ; Leukocytosis D72.829 ; Other osteoarthritis of spine, cervical region M47.892 and Shortness of breath R06.02 [place] [address] [id number] [place] [address] 83054- 4310 18 Feb, 2015 Chest pain 786.50 ; Tobacco use 305.1 ; Back pain 724.5 and Hyperlipemia 272.4 [place] [address] [id number] [place] [address] 30036- 5594 Jan, [place] [address] 95271- 6413 Jan, Chronic low back pain 724.2 and Degenerative arthritis of cervical spine 721.[address] 78738- 3909 Jan, Chronic low back pain 724.2 and Neck pain 723.[address] 22237- 3444 Dec, Chronic low back pain 724.2 and Neck pain 723.[address] 36340- 5119 Nov, Chest pain 786.50 ; Dyspnea 786.09 ; Tobacco use 305.1 and Back pain 724.[address] 13397- 4582 Nov, [address] 24059- 5056 Nov, Disability examination V68.01 and Muscle pain 729.[address] 08792- 6449 October, History of NE (myocardial infarction) 412 ; Hyperlipidemia LDL goal < 100 272.4 ; Leukocytosis 288.60 and Glucose intolerance (pre-diabetes ) 790.29 [place] [id number] [place] [address] 41093- 8849 October, Chest pain 786.50 ; Chronic low back pain 724.2 ; History of NE (myocardial infarction) 412 and Neuropathy 355.9 [place] [id number] [place] [address] 79907- 8116 October, Chronic low back pain 724.2 ; Chest pain 786.50 ; History of NE (myocardial infarction) 412 and Neuropathy 355.9 IMMUNIZATIONS No Known Immunizations SOCIAL HISTORY Never Assessed REASON FOR VISIT f/u PLAN OF CARE Activity Details Follow Up 4 Weeks Reason: F/U VITAL SIGNS MEDICATIONS Unknown Medications RESULTS No Results PROCEDURES Procedure Date Ordered Result Body Site Psychotherapy, patient &/family, 45 minutes, established patient Jun 09, 2017 INSTRUCTIONS MEDICATIONS ADMINISTERED No Known [...]
--- OUTSIDE RECORDS SUMMARY | 2018-04-03 14:55 | XMS REPORT ---
Author Author KINJAL DORIS [facility] Address [address] [place] [address] Care Team Providers Care Marketing Communication Manager Name Role Phone DORIS LAYTON Unavailable PROBLEMS Type Condition ICD9-CM Code TPK67-IZ Code Onset Dates Condition Status SNOMED Code Problem Tobacco use Z72.0 Active 961375762 Problem Tear of right rotator cuff, unspecified tear extent M75.101 Active 149466388 Problem Enlarged lymph node R59.9 Active 81263145 Problem Nocturnal hypoxia G47.34 Active 013223993 Problem Hiatal hernia K44.9 Active 73695824 Problem Bipolar disorder, unspecified F31.9 Active 52115470 Problem Panlobular emphysema J43.1 Active 5903557 Problem Hyperplastic colonic polyp, unspecified part of colon K63.5 Active 461073412 Problem Mood disorder F39 Active 07573164 Problem Hyperlipidemia, unspecified hyperlipidemia type E78.5 Active 20095406 Problem Uncontrolled type 2 diabetes mellitus with hyperglycemia, without long -term current use of insulin E11.65 Active 267780706 Problem Non-seasonal allergic rhinitis due to other allergic trigger J30.89 Active 40708702 Problem Internal hemorrhoids K64.8 Active 35300151 Problem GERD with esophagitis K21.0 Active 321929772 Problem External hemorrhoids K64.4 Active 56735250 Problem Other chronic gastritis without hemorrhage K29.50 Active 1847583 Problem Low back pain M54.5 Active 003986590 Problem Leukocytosis D72.829 Active 765600457 Problem Other osteoarthritis of spine, cervical region M47.892 Active 212881187 Problem Hyperlipidemia E78.5 Active 71455692 Problem History of DE (myocardial infarction) I25.2 Active 494298702 Problem Neuropathy G62.9 Active 199836082 ALLERGIES No Information ENCOUNTERS Encounter Location Date Diagnosis [facility], [place] [address] [facility] [id number] [address] Dec, [facility], [place] [address] [facility] [id number] [place] [address] Nov, [facility], [place] [address] [facility] [id number] [place] [address] 8[address] Nov, [facility], [place] [address] [facility] [id number] [place] [address] Nov, [facility], [place] [address] [facility] [id number] [place] [address] Nov, [facility], [place] [address] [facility] [id number] [place] [address] October, [facility], [place] [address] [place] [id number] [place] [address] October, Low back pain M54.5 [facility], [place] [id number] [place] [address] Sep, [facility], [place] [address] [place] [address] Sep, [facility], [place] [address] [address] 609[address] Sep, Leukocytosis D72.829 [facility], [place] [address] [address] 269[address] Sep, [facility], [place] [address] [place] [address]- 5984 Sep, [facility], [place] [address] [place] [id number] [place] [address]- 9583 Sep, [facility], [place] [address] [address] 67[address] Aug, Low back pain M54.5 [facility], [place] [address] [place] [id number] [place] [address]- 9917 Aug, Bipolar disorder, unspecified F31.9 [facility], [place] [id number] [place] [address] 93807- 7217 Aug, [facility], [place] [address] [id number] [place] [address] 45654- 7952 Aug, [place] [address] [id number] [place] [address] 01651- 5953 Aug, Uncontrolled type 2 diabetes mellitus with hyperglycemia, without long-term current use of insulin E11.65 ; Non-healing surgical wound, initial encounter T81.89XA ; Cellulitis of abdominal wall L03.311 ; Hyperlipidemia E78.5 ; Chronic obstructive pulmonary disease, unspecified COPD type J44.9 and Tobacco use Z72.0 [place] [address] [place] [id number] [place] [address] 75084- 0944 Aug, [place] [address] [address] [id number] [place] [address] 85277- 9590 Jul, [place] [address] [address] [id number] [place] [address] 37124- 6694 Jul, [place] [address] [address] [id number] [place] [address] 70099- 4278 Jul, Type 2 diabetes mellitus 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, unspecified 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 E11.40 [place] [address] [address] [id number] [place] [address] 87749- 0877 Jun, Bipolar disorder, unspecified F31.9 [place] [address] [address] [id number] [place] [address] 83196- 7226 Jun, [place] [address] [address] [id number] [place] [address] 85471- 5776 Jun, Bipolar disorder, unspecified F31.9 [place] [address] [id number] [place] [address] 87811- 6169 Jun, Mood disorder F39 [place] [id number] [place] [address] 43192- 8183 Jun, [facility], [place] [address] [id number] [place] [address] 75407- 5740 May, Fissure in skin of foot R23.4 ; Callus of foot L84 and Type 2 diabetes mellitus 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, unspecified usp insulin use status E11.40 [place] [address] [id number] [place] [address] 76554- 3642 04 May, 2017 Mood disorder F39 [place] [id number] [place] [address] 17558- 5995 Apr, [place] [address] 02693- 7882 Apr, Cough R05 and Tobacco use Z72.0 [place] [address] 47396- 0313 Apr, Cough R05 and Tobacco use Z72.0 [place] [id number] [place] [address] 90390- 2230 Apr, Mood disorder F39 [place] [id number] [place] [address] 40213- 7953 Apr, Low back pain M54.5 [place] [id number] [place] [address] 52943- 9510 Apr, Uncontrolled type 2 diabetes mellitus with hyperglycemia, without long-term current use of insulin E11.65 [place] [address] [place] [address] 44336- 5026 Apr, Uncontrolled type 2 diabetes mellitus with hyperglycemia, without long-term current use of insulin E11.65 [place] [id number] [place] [address] 79763- 5787 Mar, Bipolar disorder, unspecified F31.9 [place] [address] [address] [id number] [place] [address] 74010- 7284 Mar, [place] [address] [id number] [place] [address] 59584- 8515 Mar, Bipolar disorder, unspecified F31.9 [place] [address] [place] [id number] [place] [address] 21272- 1914 Mar, Mood disorder F39 [place] [id number] [place] [address] 03205- 7719 Feb, [place] [id number] [place] [address] 47195- 4932 Feb, [place] [address] [id number] [place] [address] 14955- 8113 Feb, [place] [id number] [place] [address] 55368- 7346 Feb, Bipolar disorder, unspecified F31.9 [place] [id number] [place] [address] 16544- 6019 Feb, Uncontrolled type 2 diabetes mellitus with hyperglycemia, without long-term current use of insulin E11.65 ; Encounter for immunization Z23 ; Vasovagal syncope R55 and Low back pain M54.5 [place] [address] [id number] [place] [address] 91319- 1003 Jan, Bipolar disorder, unspecified F31.9 [place] [address] [id number] [place] [address] 22945- 0954 Jan, [place] [address] [id number] [place] [address] 36326- 8781 Jan, Fatigue, unspecified type R53.83 ; Nocturnal hypoxia G47.34 ; Leukocytosis D72.829 ; Other chronic gastritis without hemorrhage K29.50 ; Uncontrolled type 2 diabetes mellitus with hyperglycemia, without long-term current use of insulin E11.65 ; Alternating constipation and diarrhea R19.8 and Chronic obstructive pulmonary disease, unspecified COPD type J44.9 [place] [id number] [place] [address] 11306- 0794 Jan, [place] [address] [address] [id number] [place] [address] 24030- 1471 Jan, Leukocytosis D72.829 [place] [address] [place] [address]- 2970 Jan, Mood disorder F39 [facility], [place] [id number] [place] [address] 25171- 1144 Dec, Bipolar disorder, unspecified F31.9 [facility], [place] [address] [address]- 9925 Dec, [facility] [id number] [place] [address] 01370 -0043 Dec, Acute gastritis without bleeding K29.00 [facility], [place] [address] [place] [address] 84583- 4831 Dec, Leukocytosis D72.829 [facility], [place] [id number] [place] [address] 69630- 4316 Dec, [facility], [place] [id number] [place] [address] 30312- 6749 Dec, Dental examination Z01.20 [facility], [place] [id number] [place] [address] 25959- 9980 Dec, [facility], [place] [id number] [place] [address] 58250- 0031 Dec, Leukocytosis D72.829 [facility], [place] [id number] [place] [address] 91991- 8630 Dec, Uncontrolled type 2 diabetes mellitus with hyperglycemia, without long-term current use of insulin E11.65 [facility], [place] [address] [address]- 8916 Nov, Dental examination Z01.20 [facility], [place] [id number] [place] [address] 17924- 1490 Nov, [facility], [place] [id number] [place] [address] 24966- 7992 Nov, Major depressive disorder, recurrent episode, moderate F33.1 [facility], [place] [id number] [place] [address] 98825- 9594 Nov, Leukocytosis D72.829 [facility], [place] [id number] [place] [address] 00102- 8536 Nov, Mood disorder F39 [facility], [place] [address] [place] [address] 90472- 9163 Nov, Other osteoarthritis of spine, cervical region M47.892 and Uncontrolled type 2 diabetes mellitus with hyperglycemia, without long-term current use of insulin E11.65 [facility], [place] [address] [place] [address] 48512- 7756 Nov, Leukocytosis D72.829 and Elevated serum glucose R73.9 [place] [id number] [place] [address] 59033- 4084 October, Elevated serum glucose R73.9 [place] [id number] [place] [address] 57126- 8033 October, Mood disorder F39 [facility], [place] [address] [place] [address] 64357- 4374 Sep, Major depressive disorder, recurrent episode, moderate F33.1 [place] [address] [place] [address] 77305- 0380 Sep, Mood disorder F39 [facility], [place] [address] [address]- 9053 Aug, [facility], [place] [id number] [place] [address] 68015- 6650 Jul, Major depressive disorder, recurrent episode, moderate F33.1 [facility], [place] [address] [place] [address] 72851- 6596 Jul, Mood disorder F39 [facility], [place] [address] [place] [address] 26540181- 8975 Jul, [place] [address] [place] [address] 682813- 3867 Jul, History of DE (myocardial infarction) I25.2 ; Hyperlipidemia E78.5 ; Prediabetes R73.09 ; Chronic obstructive pulmonary disease, unspecified COPD type J44.9 and Tobacco use Z72.0 [place] [id number] [place] [address] 01617- 4525 Jun, [place] [address] [id number] [place] [address] 19848- 5763 Jun, Mood disorder F39 [place] [address] 34386- 0781 Jun, [place] [address] 55866- 0420 May, Major depressive disorder, recurrent episode, moderate F33.1 and Primary insomnia F51.01 [place] [address] [address] [id number] [place] [address] 31979- 4463 May, Mood disorder F39 [place] [address] [id number] [place] [address] 29579- 3298 Apr, [place] [address] [id number] [place] [address] 63351- 1938 Apr, Mood disorder F39 [place] [id number] [place] [address] 63446- 5008 Apr, [place] [address] [id number] [place] [address] 30865- 8757 Apr, [place] [address] [id number] [place] [address] 28147- 8361 Apr, Chronic obstructive pulmonary disease, unspecified COPD type J44.9 and Non-seasonal allergic rhinitis due to other allergic trigger J30.89 [place] [address] [address] [id number] [place] [address] 07587- 9625 Apr, Mood disorder F39 [place] [address] [id number] [place] [address] 26863- 7457 10 Nov, 2016 Major depressive disorder, recurrent episode, moderate F33.1 and PTSD (post-traumatic stress disorder) F43.10 [place] [address] [id number] [place] [address] 23332- 4010 Apr, [facility], [place] [id number] [place] [address] 97801- 3064 Apr, [place] [id number] [place] [address] 34682- 3831 Apr, Chest pain, unspecified type R07.9 ; Chronic obstructive pulmonary disease, unspecified COPD type J44.9 ; Hyperlipidemia, unspecified hyperlipidemia type E78.5 and Tobacco use Z72.0 [place] [address] [place] [address] 54579- 3512 Mar, Mood disorder F39 [place] [address] [address] [id number] [place] [address] 34205- 3133 Mar, Mood disorder F39 [place] [id number] [place] [address] 90042- 6032 Mar, Other osteoarthritis of spine, cervical region M47.892 [place] [address] [address] [id number] [place] [address] 83903- 0466 Mar, Tear of right rotator cuff, unspecified tear extent M75.101 [place] [address] [address] [id number] [place] [address] 32311- 9410 Mar, [place] [id number] [place] [address] 87190- 8515 Mar, Bipolar II disorder F31.81 [place] [id number] [place] [address] 29384- 4019 Mar, [place] [address] [id number] [place] [address] 52727- 6895 Feb, Impingement syndrome of right shoulder M75.41 ; Tear of right rotator cuff, unspecified tear extent M75.101 and Loose body in right elbow M24.021 [place] [id number] [place] [address] 32190- 2590 Jan, [place] [address] [address] [id number] [place] [address] 94458- 8517 Jan, [place] [address] [address] [id number] [place] [address] 14000- 3285 Jan, Prediabetes R73.09 ; Other chronic pain G89.29 and Pain in right shoulder M25.511 [place] [address] [id number] [place] [address] 17841- 0579 Dec, [place] [address] [id number] [place] [address] 82248- 5773 Dec, Heartburn R12 and Chest discomfort R07.89 [place] [id number] [place] [address] 82517- 2066 Dec, Impingement syndrome of right shoulder M75.41 and 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, 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 [place] [address] [id number] [place] [address] 06130- 6414 Nov, [place] [address] [address] [id number] [place] [address] 42012- 5600 Nov, Leukocytosis D72.829 [place] [address] [address] [id number] [place] [address] 25334- 7600 Nov, [place] [address] [address] [id number] [place] [address] 07426- 5856 Nov, Enlarged lymph node R59.9 ; Chronic obstructive pulmonary disease, unspecified COPD type J44.9 ; Low back pain M54.5 ; Neuropathy G62.9 and Closed nondisplaced fracture of sternal end of right clavicle, sequela S42.017S [place] [address] [place] [address] 01661- 1902 October, [place] [id number] [place] [address] 90031- 3995 October, [place] [address] [id number] [place] [address] 46877- 8221 Sep, [place] [address] 65990- 9451 Aug, Double vision H53.2 ; Occipital headache R51 ; Chronic obstructive pulmonary disease, unspecified COPD type J44.9 and Gastroesophageal reflux disease, esophagitis presence not specified K21.9 [place] [address] 93374- 0052 Aug, [place] [address] 02282- 1136 Jul, Enlarged lymph node in neck R59.0 [place] [address] 69096- 2720 Jul, [place] [address] 46464- 9949 Jul, Chronic obstructive pulmonary disease, unspecified COPD type J44.9 ; Tobacco use Z72.0 ; Leukocytosis D72.829 ; Hyperlipidemia E78.5 and Neck abscess L02.11 [place] [address] [address] [id number] [place] [address] 29518- 7105 Jun, Shortness of breath R06.02 [place] [id number] [place] [address] 16556- 9111 May, Leukocytosis D72.829 and Shortness of breath R06.02 [place] [address] 11830- 1426 09 May, 2015 Low back pain M54.5 ; Hyperlipidemia E78.5 ; Leukocytosis D72.829 ; Other osteoarthritis of spine, cervical region M47.892 and Shortness of breath R06.02 [place] [address] [id number] [place] [address] 76127- 2435 18 Feb, 2015 Chest pain 786.50 ; Tobacco use 305.1 ; Back pain 724.5 and Hyperlipemia 272.4 [place] [address] [id number] [place] [address] 60540- 6714 Jan, [place] [address] 25443- 2332 Jan, Chronic low back pain 724.2 and Degenerative arthritis of cervical spine 721.[address] 99375- 0127 Jan, Chronic low back pain 724.2 and Neck pain 723.[address] 10113- 9148 Dec, Chronic low back pain 724.2 and Neck pain 723.[address] 92548- 5243 Nov, Chest pain 786.50 ; Dyspnea 786.09 ; Tobacco use 305.1 and Back pain 724.[address] 43665- 1950 Nov, [address] 67380- 6865 Nov, Disability examination V68.01 and Muscle pain 729.[address] 14719- 8312 October, History of DE (myocardial infarction) 412 ; Hyperlipidemia LDL goal < 100 272.4 ; Leukocytosis 288.60 and Glucose intolerance (pre-diabetes ) 790.29 [place] [id number] [place] [address] 87834- 4222 October, Chest pain 786.50 ; Chronic low back pain 724.2 ; History of DE (myocardial infarction) 412 and Neuropathy 355.9 [place] [id number] [place] [address] 61825- 1333 October, Chronic low back pain 724.2 ; [...]
--- OUTSIDE RECORDS SUMMARY | 2018-04-03 14:59 | XMS REPORT ---
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 Name Role Phone DORIS LAYTON Unavailable PROBLEMS Type Condition ICD9-CM Code UOU08-LA Code Onset Dates Condition Status SNOMED Code Problem Enlarged lymph node R59.9 Active 80157336 Problem Hyperlipidemia, unspecified hyperlipidemia type E78.5 Active 34274678 Problem Tear of right rotator cuff, unspecified tear extent M75.101 Active 481472845 Problem Other chronic pain G89.29 Active 08975502 Problem Internal hemorrhoids K64.8 Active 84829156 Problem Nocturnal hypoxia G47.34 Active 881836160 Problem Panlobular emphysema J43.1 Active 6571524 Problem Hyperplastic colonic polyp, unspecified part of colon K63.5 Active 854597416 Problem Non-seasonal allergic rhinitis due to other allergic trigger J30.89 Active 60812334 Problem Mood disorder F39 Active 46605243 Problem Bipolar disorder, unspecified F31.9 Active 15243552 Problem Uncontrolled type 2 diabetes mellitus with hyperglycemia, without long -term current use of insulin E11.65 Active 519989871 Problem GERD with esophagitis K21.0 Active 404296805 Problem Other osteoarthritis of spine, cervical region M47.892 Active 814039018 Problem Hiatal hernia K44.9 Active 69738644 Problem External hemorrhoids K64.4 Active 54023714 Problem Leukocytosis D72.829 Active 355875401 Problem Hyperlipidemia E78.5 Active 38016276 Problem History of MD (myocardial infarction) I25.2 Active 854102190 Problem Neuropathy G62.9 Active 971221823 Problem Other chronic gastritis without hemorrhage K29.50 Active 0735981 Problem Low back pain M54.5 Active 154171558 Problem Tobacco use Z72.0 Active 207337234 ALLERGIES No Information ENCOUNTERS Encounter Location Date Diagnosis [facility] [id number] [place] [address] 04446- 1141 Jun, [facility] [id number] [place] [address] 47516- 4489 Apr, [facility] [id number] [place] [address] 70822- 0051 Apr, [facility] [address] 9[address]26- 2365 Mar, [facility] [address] 95622- 6877 Mar, Uncontrolled type 2 diabetes mellitus with hyperglycemia, without long-term current use of insulin E11.65 [facility] [address] [address]51 -6812 Mar, Fall (on) (from) other stairs and steps, initial encounter W10.8XXA ; Lumbar contusion, initial encounter S30.0XXA ; Elbow pain, right M25.521 and Thoracic spine pain M54.6 [facility] [id number] [place] [address] 07029- 6838 Mar, Mood disorder F39 [facility] [facility] [id number] [place] [address] 31055- 3614 Mar, [facility] [facility] [id number] [place] [address] 22599- 4926 Mar, Leukocytosis D72.829 [facility] [facility] [id number] [place] [address] 36720- 3754 Mar, [facility] [id number] [place] [address] 43893- 2977 Mar, Other chronic gastritis without hemorrhage K29.50 [facility] [facility] [id number] [place] [address] 60838- 3832 Mar, Uncontrolled type 2 diabetes mellitus with hyperglycemia, without long-term current use of insulin E11.65 ; Low back pain M54.5 ; Other osteoarthritis of spine, cervical region M47.892 ; Panlobular emphysema J43.1 ; Leukocytosis D72.829 and Lumbar back pain with radiculopathy affecting lower extremity M54.16 [facility] [id number] [place] [address] 82454- 7416 Feb, [facility] [id number] [place] [address] 37620- 8906 Feb, [facility] [id number] [place] [address] 46239- 1300 Feb, Uncontrolled type 2 diabetes mellitus with hyperglycemia, without long-term current use of insulin E11.65 [facility] [id number] [place] [address] 14056- 4188 Feb, Mood disorder F39 [facility] [id number] [place] [address] 55965- 0306 Jan, [facility] [id number] [place] [address] 86600- 9927 Jan, Mood disorder F39 [facility] [id number] [place] [address] 19503- 6963 Jan, [facility] [id number] [place] [address] 95827- 4391 Dec, Bipolar disorder, unspecified F31.9 [facility] [id number] [place] [address] 24368- 0562 Dec, [facility] [id number] [place] [address] 73310- 2645 Dec, [facility] [id number] [place] [address] 27379- 7505 Dec, [facility] [id number] [place] [address] 09562- 7882 Dec, Mood disorder F39 [facility] [id number] [place] [address] 51464- 9454 Nov, Bipolar disorder, unspecified F31.9 [facility] [id number] [place] [address] 43813- 9606 Nov, [facility] [id number] [place] [address] 72880- 2952 Nov, Pain in left knee M25.562 ; Other chronic pain G89.29 ; Hyperlipidemia E78.5 ; Leukocytosis D72.829 ; Other osteoarthritis of spine, cervical region M47.892 ; Tobacco use Z72.0 and Uncontrolled type 2 diabetes mellitus with hyperglycemia, without long-term current use of insulin E11.65 [facility] [id number] [place] [address] 17965- 3609 Nov, [facility] [id number] [place] [address] 17005- 7074 Nov, [facility] [id number] [place] [address] 85784- 1011 October, [facility] [id number] [place] [address] 11863- 0933 October, Low back pain M54.5 [facility] [id number] [place] [address] 18314- 4893 Sep, [facility] [id number] [place] [address] 94609- 5002 Sep, [facility] [id number] [place] [address] 29646- 0065 Sep, Leukocytosis D72.829 [facility] [id number] [place] [address] 42186- 9253 Sep, [facility] [id number] [place] [address] 40365- 2424 Sep, [facility] [id number] [place] [address] 69754- 1711 Sep, [facility] [id number] [place] [address] 53099- 6391 Aug, Low back pain M54.5 [facility] [id number] [place] [address] 19834- 3582 Aug, Bipolar disorder, unspecified F31.9 [facility] [id number] [place] [address] 73353- 0469 Aug, [facility] [id number] [place] [address] 76575- 4016 Aug, [facility] [facility] [id number] [place] [address] 84416- 6312 Aug, Uncontrolled type 2 diabetes mellitus with hyperglycemia, without long-term current use of insulin E11.65 ; Non-healing surgical wound, initial encounter T81.89XA ; Cellulitis of abdominal wall L03.311 ; Hyperlipidemia E78.5 ; Chronic obstructive pulmonary disease, unspecified COPD type J44.9 and Tobacco use Z72.0 [facility] [facility] [id number] [place] [address] 49416- 6414 Aug, [facility] [facility] [id number] [place] [address] 18540- 1548 Jul, [facility] [facility] [id number] [place] [address] 92227- 0101 Jul, [facility] [facility] [id number] [place] [address] 04267- 4384 Jul, Type 2 diabetes mellitus 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, 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 [facility] [facility] [id number] [place] [address] 66430- 4977 Jun, Bipolar disorder, unspecified F31.9 [facility] [facility] [id number] [place] [address] 75219- 1756 Jun, [facility] [facility] [id number] [place] [address] 87062- 6255 Jun, Bipolar disorder, unspecified F31.9 [facility] [facility] [id number] [place] [address] 16648- 7674 Jun, Mood disorder F39 [facility] [id number] [place] [address] 13379- 8318 Jun, [facility] [facility] [id number] [place] [address] 59436- 4487 May, Fissure in skin of foot R23.4 ; Callus of foot L84 and Type 2 diabetes mellitus 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, 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 [facility] [facility] [id number] [place] [address] 95043- 9852 04 May, 2017 Mood disorder F39 [facility] [facility] [id number] [place] [address] 68462- 1117 Apr, [facility] [facility] [id number] [place] [address] 93132- 3891 Apr, Cough R05 and Tobacco use Z72.0 [place] [facility] [id number] [place] [address] 61416- 9874 Apr, Cough R05 and Tobacco use Z72.0 [facility] [facility] [id number] [place] [address] 17788- 4865 06 Apr, 2017 Mood disorder F39 [place] [facility] [id number] [place] [address] 63667- 3008 06 Apr, 2017 Low back pain M54.5 [facility] [facility] [id number] [place] [address] 91178- 3980 06 Apr, 2017 Uncontrolled type 2 diabetes mellitus with hyperglycemia, without long-term current use of insulin E11.65 [facility] [id number] [place] [address] 04397- 2761 03 Apr, 2017 Uncontrolled type 2 diabetes mellitus with hyperglycemia, without long-term current use of insulin E11.65 [facility] [facility] [id number] [place] [address] 66196- 7660 Mar, Bipolar disorder, unspecified F31.9 [place] [address] [place] [address]- 1911 Mar, [facility] [id number] [place] [address] 93514- 8526 Mar, Bipolar disorder, unspecified F31.9 [facility] [id number] [place] [address] 99929- 8434 Mar, Mood disorder F39 [facility] [address] 37310- 0851 Feb, [address] [id number] [place] [address] 31345- 4618 Feb, [place] [id number] [place] [address] 85238- 5999 Feb, [place] [facility] [id number] [place] [address] 96018- 1346 Feb, Bipolar disorder, unspecified F31.9 [facility] [facility] [id number] [place] [address] 54442- 4021 Feb, Uncontrolled type 2 diabetes mellitus with hyperglycemia, without long-term current use of insulin E11.65 ; Encounter for immunization Z23 ; Vasovagal syncope R55 and Low back pain M54.5 [place] [facility] [id number] [place] [address] 60816- 3249 Jan, Bipolar disorder, unspecified F31.9 [facility] [facility] [id number] [place] [address] 42897- 9564 Jan, [facility] [facility] [id number] [place] [address] 10563- 2902 Jan, Fatigue, unspecified type R53.83 ; Nocturnal hypoxia G47.34 ; Leukocytosis D72.829 ; Other chronic gastritis without hemorrhage K29.50 ; Uncontrolled type 2 diabetes mellitus with hyperglycemia, without long-term current use of insulin E11.65 ; Alternating constipation and diarrhea R19.8 and Chronic obstructive pulmonary disease, unspecified COPD type J44.9 [place] [address] [place] [address]- 5665 Jan, [facility] [id number] [place] [address] 90387- 9969 Jan, Leukocytosis D72.829 [facility] [id number] [address]- 9225 Jan, Mood disorder F39 [facility] [id number] [place] [address] 57571- 6105 Dec, Bipolar disorder, unspecified F31.9 [facility] [id number] [place] [address] 61784- 8698 Dec, [facility] [id number] [place] [address] 78144 -8228 Dec, Acute gastritis without bleeding K29.00 [facility] [id number] [place] [address] 26886- 5368 Dec, Leukocytosis D72.829 [facility] [id number] [place] [address] 53216- 2710 Dec, [facility] [id number] [place] [address] 96185- 1319 Dec, Dental examination Z01.20 [facility] [address] [address]- 8440 Dec, [facility] [address] [address]- 3686 Dec, Leukocytosis D72.829 [facility] [address] [place] [address] 56578- 2619 Dec, Uncontrolled type 2 diabetes mellitus with hyperglycemia, without long-term current use of insulin E11.65 [facility] [address] [address]- 1663 Nov, Dental examination Z01.20 [facility] [address] [place] [address] 36967- 8343 Nov, [facility] [address] [address]- 2253 Nov, Major depressive disorder, recurrent episode, moderate F33.1 [facility] [address] [address]- 6476 06 Nov, 2016 Leukocytosis D72.829 [place] [id number] [place] [address] 48588- 9720 05 Nov, 2016 Mood disorder F39 [facility] [facility] [address] [place] [address] 83458- 0817 Nov, Other osteoarthritis of spine, cervical region M47.892 and Uncontrolled type 2 diabetes mellitus with hyperglycemia, without long-term current use of insulin E11.65 [facility] [facility] [id number] [place] [address] 22883- 7993 Nov, Leukocytosis D72.829 and Elevated serum glucose R73.9 [place] [facility] [address] [place] [address] 13438- 1410 October, Elevated serum glucose R73.9 [facility] [facility] [id number] [place] [address] 36362- 8174 October, Mood disorder F39 [place] [facility] [address] [place] [address] 15057- 1586 Sep, Major depressive disorder, recurrent episode, moderate F33.1 [facility] [address] [place] [address] 17705- 3351 Sep, Mood disorder F39 [facility] [address] [address]- 8588 Aug, [facility] [facility] [id number] [place] [address] 09007- 6742 Jul, Major depressive disorder, recurrent episode, moderate F33.1 [place] [address] [place] [address] 31205- 1668 Jul, Mood disorder F39 [facility] [address] [place] [address] 66486- 2367 Jul, [facility] [id number] [place] [address] 55116- 5921 Jul, History of MD (myocardial infarction) I25.2 ; Hyperlipidemia E78.5 ; Prediabetes R73.09 ; Chronic obstructive pulmonary disease, unspecified COPD type J44.9 and Tobacco use Z72.0 [facility] [id number] [place] [address] 60606- 3630 Jun, [place] [id number] [place] [address] 75445- 8147 Jun, Mood disorder F39 [facility] [id number] [place] [address] 63956- 7747 Jun, [facility] [id number] [place] [address] 39896- 7796 May, Major depressive disorder, recurrent episode, moderate F33.1 and Primary insomnia F51.01 [facility] [id number] [place] [address] 96113- 2371 May, Mood disorder F39 [facility] [id number] [place] [address] 10943- 3477 Apr, [facility] [id number] [place] [address] 45421- 3908 Apr, Mood disorder F39 [facility] [address] [address]- 6867 Apr, [facility] [id number] [place] [address] 13643- 6813 Apr, [facility] [id number] [place] [address] 30610- 4665 Apr, Chronic obstructive pulmonary disease, unspecified COPD type J44.9 and Non-seasonal allergic rhinitis due to other allergic trigger J30.89 [place] [id number] [place] [address] 19106- 5608 Apr, Mood disorder F39 [facility] [id number] [place] [address] 02262- 2348 Apr, Major depressive disorder, recurrent episode, moderate F33.1 and PTSD (post-traumatic stress disorder) F43.10 [facility] [id number] [place] [address] 36750- 6485 Apr, [facility] [id number] [place] [address] 89644- 0018 Apr, [facility] [id number] [place] [address] 04304- 2445 Apr, Chest pain, unspecified type R07.9 ; Chronic obstructive pulmonary disease, unspecified COPD type J44.9 ; Hyperlipidemia, unspecified hyperlipidemia type E78.5 and Tobacco use Z72.0 [place] [id number] [place] [address] 32892- 0606 Mar, Mood disorder F39 [facility] [id number] [place] [address] 39141- 0325 Mar, Mood disorder F39 [facility] [id number] [place] [address] 88919- 4904 Mar, Other osteoarthritis of spine, cervical region M47.892 [place] [id number] [place] [address] 50900- 0890 Mar, Tear of right rotator cuff, unspecified tear extent M75.101 [facility] [id number] [place] [address] 02620- 2618 Mar, [place] [address] 44336- 1662 Mar, Bipolar II disorder F31.81 [facility] [id number] [place] [address] 16785- 6051 Mar, [facility] [id number] [place] [address] 37471- 7713 Feb, Impingement syndrome of right shoulder M75.41 ; Tear of right rotator cuff, unspecified tear extent M75.101 and Loose body in right elbow M24.021 [place] [id number] [place] [address] 55048- 2541 Jan, [place] [address] 48991- 9378 Jan, [place] [id number] [place] [address] 52722- 1885 Jan, Prediabetes R73.09 ; Other chronic pain G89.29 and Pain in right shoulder M25.511 [place] [id number] [place] [address] 18095- 1089 Dec, [place] [address] 54473- 8663 Dec, Heartburn R12 and Chest discomfort R07.89 [place] [id number] [place] [address] 82556- 1017 Dec, Impingement syndrome of right shoulder M75.41 and 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, 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 [place] [id number] [place] [address] 84871- 7578 Nov, [place] [id number] [place] [address] 34911- 2235 Nov, Leukocytosis D72.829 [place] [id number] [place] [address] 80603- 3741 Nov, [place] [id number] [place] [address] 93856- 4866 Nov, Enlarged lymph node R59.9 ; Chronic obstructive pulmonary disease, unspecified COPD type J44.9 ; Low back pain M54.5 ; Neuropathy G62.9 and Closed nondisplaced fracture of sternal end of right clavicle, sequela S42.017S [place] [id number] [place] [address] 22203- 4268 October, [place] [id number] [place] [address] 73623- 9146 October, [place] [id number] [place] [address] 51905- 9424 Sep, [place] [address] 85092- 0041 Aug, Double vision H53.2 ; Occipital headache R51 ; Chronic obstructive pulmonary disease, unspecified COPD type J44.9 and Gastroesophageal reflux disease, esophagitis presence not specified K21.9 [place] [id number] [place] [address] 74931- 1866 Aug, [place] [address] 56466- 5316 Jul, Enlarged lymph node in neck R59.0 [place] [id number] [place] [address] 50057- 7977 Jul, [place] [id number] [place] [address] 33302- 1478 Jul, Chronic obstructive pulmonary disease, unspecified COPD type J44.9 ; Tobacco use Z72.0 ; Leukocytosis D72.829 ; Hyperlipidemia E78.5 and Neck abscess L02.11 [place] [id number] [place] [address] 35749- 3222 Jun, Shortness of breath R06.02 [place] [id number] [place] [address] May, Leukocytosis D72.829 and Shortness of breath R06.02 [place] [address] [place] [id number] [place] [id number]- [phone] 09 May, 2015 Low back pain M54.5 ; Hyperlipidemia E78.5 ; Leukocytosis D72.829 ; Other osteoarthritis of spine, cervical region M47.892 and Shortness of breath R06.02 [place] [address] [address] Feb, Chest pain 786.50 ; Tobacco use 305.1 ; Back pain 724.5 and Hyperlipemia 272.4 [place] [address] [address] Jan, [place] [address] [address] Jan, Chronic low back pain 724.2 and Degenerative arthritis of cervical spine 721.[address] [address] Jan, Chronic low back pain 724.2 and Neck pain 723.[address] [address]- [address] Dec, Chronic low back pain 724.2 and Neck pain 723.[address] [address] Nov, Chest pain 786.50 ; Dyspnea 786.09 ; Tobacco use 305.1 and Back pain 724.5 [place] [address] [address] Nov, [address] [address] Nov, Disability examination V68.01 and Muscle pain 729.[address] [address] October, History of MD (myocardial infarction) 412 ; Hyperlipidemia LDL goal < 100 272.4 ; Leukocytosis 288.60 and Glucose intolerance (pre-diabetes ) 790.[address] [id number] October, Chest pain 786.50 ; Chronic low back pain 724.2 ; History of MD (myocardial infarction) 412 and Neuropathy 355.9 [facility] [address] [facility] [id number] [place] [address] October, Chronic low back pain 724.2 ; Chest pain 786.50 ; History of MD (myocardial infarction) 412 and Neuropathy 355.9 IMMUNIZATIONS No Known Immunizations SOCIAL HISTORY Never Assessed REASON FOR VISIT Requests return call PLAN OF CARE VITAL SIGNS MEDICATIONS [...]
--- OUTSIDE RECORDS SUMMARY | 2018-04-03 14:59 | XMS REPORT ---
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 Role Phone DORIS LAYTON Unavailable PROBLEMS Type Condition ICD9-CM Code YHZ56-GH Code Onset Dates Condition Status SNOMED Code Problem Enlarged lymph node R59.9 Active 69519552 Problem Hyperlipidemia, unspecified hyperlipidemia type E78.5 Active 92553597 Problem Tear of right rotator cuff, unspecified tear extent M75.101 Active 146164566 Problem Other chronic pain G89.29 Active 74592455 Problem Internal hemorrhoids K64.8 Active 85102873 Problem Nocturnal hypoxia G47.34 Active 441402295 Problem Panlobular emphysema J43.1 Active 8637554 Problem Hyperplastic colonic polyp, unspecified part of colon K63.5 Active 170550422 Problem Non-seasonal allergic rhinitis due to other allergic trigger J30.89 Active 94047951 Problem Mood disorder F39 Active 09530628 Problem Bipolar disorder, unspecified F31.9 Active 82729629 Problem Uncontrolled type 2 diabetes mellitus with hyperglycemia, without long -term current use of insulin E11.65 Active 970524906 Problem GERD with esophagitis K21.0 Active 479746761 Problem Other osteoarthritis of spine, cervical region M47.892 Active 865741618 Problem Hiatal hernia K44.9 Active 87875485 Problem External hemorrhoids K64.4 Active 90807954 Problem Leukocytosis D72.829 Active 362931676 Problem Hyperlipidemia E78.5 Active 30542250 Problem History of IN (myocardial infarction) I25.2 Active 372312984 Problem Neuropathy G62.9 Active 078162606 Problem Other chronic gastritis without hemorrhage K29.50 Active 6588674 Problem Low back pain M54.5 Active 945143674 Problem Tobacco use Z72.0 Active 069721685 ALLERGIES No Information ENCOUNTERS Encounter Location Date Diagnosis [facility], [place] [id number] [place] [address] 37775- 7831 Jun, [facility], [place] [id number] [place] [address] 22608- 2649 Apr, [facility], [place] [id number] [place] [address] 80259- 8061 Apr, [facility], [place] [id number] [place] [address] 22504- 9233 Mar, [facility], [place] [address] 49849- 0235 Mar, [facility], [place] [address] 79617- 3501 Mar, Uncontrolled type 2 diabetes mellitus with hyperglycemia, without long-term current use of insulin E11.65 [facility] [id number] [place] [address] 01470 -5936 Mar, Fall (on) (from) other stairs and steps, initial encounter W10.8XXA ; Lumbar contusion, initial encounter S30.0XXA ; Elbow pain, right M25.521 and Thoracic spine pain M54.6 [place] [id number] [place] [address] 02936- 2547 Mar, Mood disorder F39 [facility], [place] [id number] [place] [address] 45207- 4107 Mar, [facility], [place] [id number] [place] [address] 79580- 5454 Mar, Leukocytosis D72.829 [facility], [place] [id number] [place] [address] 52651- 9353 Mar, [facility], [place] [id number] [place] [address] 90414- 8280 Mar, Other chronic gastritis without hemorrhage K29.50 [facility], [place] [id number] [place] [address] 97368- 1550 Mar, Uncontrolled type 2 diabetes mellitus with hyperglycemia, without long-term current use of insulin E11.65 ; Low back pain M54.5 ; Other osteoarthritis of spine, cervical region M47.892 ; Panlobular emphysema J43.1 ; Leukocytosis D72.829 and Lumbar back pain with radiculopathy affecting lower extremity M54.16 [facility], [place] [address] [place] [address] 9406 Feb, [facility], [place] [id number] [place] [address] 64419 2546 Feb, [facility], [place] [id number] [place] [address] 99499 2549 Feb, Uncontrolled type 2 diabetes mellitus with hyperglycemia, without long-term current use of insulin E11.65 [facility], [place] [id number] [place] [address] 2546 Feb, Mood disorder F39 [facility], [place] [id number] [place] [address] 70686- 0166 Jan, [facility], [place] [id number] [place] [address] 10091- 2527 Jan, Mood disorder F39 [facility], [place] [id number] [place] [address] 56772- 9026 Jan, [facility], [place] [id number] [place] [address] 35157- 3074 Dec, Bipolar disorder, unspecified F31.9 [facility], [place] [id number] [place] [address] 84930- 5616 Dec, [facility], [place] [id number] [place] [address]- 3356 Dec, [facility], [place] [id number] [place] [address] 25077- 2546 Dec, [facility], [place] [id number] [place] [address]- 7376 Dec, Mood disorder F39 [facility], [place] [id number] [place] [address] 34582- 3999 Nov, Bipolar disorder, unspecified F31.9 [facility], [place] [id number] [place] [address] 25213- 3862 Nov, [facility], [place] [id number] [place] [address] 80222- 2205 Nov, Pain in left knee M25.562 ; Other chronic pain G89.29 ; Hyperlipidemia E78.5 ; Leukocytosis D72.829 ; Other osteoarthritis of spine, cervical region M47.892 ; Tobacco use Z72.0 and Uncontrolled type 2 diabetes mellitus with hyperglycemia, without long-term current use of insulin E11.65 [facility], [place] [id number] [place] [address] 79109- 5934 Nov, [facility], [place] [id number] [place] [address] 26005- 9869 Nov, [facility], [place] [id number] [place] [address] 36804- 9033 October, [facility], [place] [id number] [place] [address] 00365- 1322 October, Low back pain M54.5 [facility], [place] [id number] [place] [address] 61430- 3015 Sep, [facility], [place] [id number] [place] [address] 35380- 9013 Sep, [facility], [place] [id number] [place] [address] 42720- 5282 Sep, Leukocytosis D72.829 [facility], [place] [id number] [place] [address] 25069- 0764 Sep, [facility], [place] [id number] [place] [address] 59592- 3503 Sep, [facility], [place] [id number] [place] [address] 24966- 3495 Sep, [facility], [place] [id number] [place] [address] 31503- 7307 Aug, Low back pain M54.5 [facility], [place] [id number] [place] [address] 22742- 0577 Aug, Bipolar disorder, unspecified F31.9 [facility], [place] [id number] [place] [address] 65299- 5802 Aug, [facility], [place] [id number] [place] [address] 31846- 3327 Aug, [place] [id number] [place] [address] 11769- 9582 Aug, Uncontrolled type 2 diabetes mellitus with hyperglycemia, without long-term current use of insulin E11.65 ; Non-healing surgical wound, initial encounter T81.89XA ; Cellulitis of abdominal wall L03.311 ; Hyperlipidemia E78.5 ; Chronic obstructive pulmonary disease, unspecified COPD type J44.9 and Tobacco use Z72.0 [place] [id number] [place] [address] 11176- 7474 Aug, [place] [id number] [place] [address] 92843- 4250 Jul, [place] [id number] [place] [address] 12693- 4489 Jul, [place] [id number] [place] [address] 98118- 0821 Jul, Type 2 diabetes mellitus 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, unspecified 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 [place] [id number] [place] [address] 99350- 7154 Jun, Bipolar disorder, unspecified F31.9 [facility], [place] [id number] [place] [address] 21437- 5291 Jun, [facility], [place] [id number] [place] [address] 09695- 6514 Jun, Bipolar disorder, unspecified F31.9 [place] [id number] [place] [address] 74010- 8772 Jun, Mood disorder F39 [place] [id number] [place] [address] 07202- 7319 Jun, [place] [id number] [place] [address] 90473- 2848 May, Fissure in skin of foot R23.4 ; Callus of foot L84 and Type 2 diabetes mellitus 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, unspecified fdc insulin use status E11.40 [place] [id number] [place] [address] 53805- 6561 May, Mood disorder F39 [place] [id number] [place] [address] 62984- 7525 Apr, [place] [id number] [place] [address] 12537- 0605 Apr, Cough R05 and Tobacco use Z72.0 [place] [id number] [place] [address] 34889- 5809 Apr, Cough R05 and Tobacco use Z72.0 [place] [id number] [place] [address] 30633- 4816 Apr, Mood disorder F39 [place] [id number] [place] [address] 29204- 4602 Apr, Low back pain M54.5 [place] [id number] [place] [address] 94773- 0261 06 Apr, 2017 Uncontrolled type 2 diabetes mellitus with hyperglycemia, without long-term current use of insulin E11.65 [place] [id number] [place] [address] 01275- 1236 Apr, Uncontrolled type 2 diabetes mellitus with hyperglycemia, without long-term current use of insulin E11.65 [place] [id number] [place] [address] 93688- 9932 Mar, Bipolar disorder, unspecified F31.9 [facility], [place] [id number] [place] [address] 59086- 2836 Mar, [facility], [place] [id number] [place] [address] 75739- 1953 Mar, Bipolar disorder, unspecified F31.9 [facility], [place] [id number] [place] [address] 25168- 3403 Mar, Mood disorder F39 [facility], [place] [id number] [place] [address] 42427- 1128 Feb, [facility], [place] [id number] [place] [address] 16935- 5847 Feb, [facility], [place] [id number] [place] [address] 29641- 8766 Feb, [facility], [place] [id number] [place] [address] 21155- 4695 Feb, Bipolar disorder, unspecified F31.9 [facility], [place] [id number] [place] [address] 78432- 3528 Feb, Uncontrolled type 2 diabetes mellitus with hyperglycemia, without long-term current use of insulin E11.65 ; Encounter for immunization Z23 ; Vasovagal syncope R55 and Low back pain M54.5 [facility], [place] [id number] [place] [address] 92116- 1933 Jan, Bipolar disorder, unspecified F31.9 [facility], [place] [id number] [place] [address] 68558- 2841 Jan, [facility], [place] [id number] [place] [address] 30480- 0771 Jan, Fatigue, unspecified type R53.83 ; Nocturnal hypoxia G47.34 ; Leukocytosis D72.829 ; Other chronic gastritis without hemorrhage K29.50 ; Uncontrolled type 2 diabetes mellitus with hyperglycemia, without long-term current use of insulin E11.65 ; Alternating constipation and diarrhea R19.8 and Chronic obstructive pulmonary disease, unspecified COPD type J44.9 [facility], [place] [id number] [place] [address] 08015- 6480 Jan, [facility], [place] [id number] [place] [address] 99084- 1391 Jan, Leukocytosis D72.829 [place] [id number] [place] [address] 11644- 3560 Jan, Mood disorder F39 [facility], [place] [id number] [place] [address] 54838- 3238 Dec, Bipolar disorder, unspecified F31.9 [place] [id number] [place] [address] 63801- 0045 Dec, [facility] [id number] [place] [address] 42219 -3271 Dec, Acute gastritis without bleeding K29.00 [place] [id number] [place] [address] 60012- 8407 Dec, Leukocytosis D72.829 [place] [id number] [place] [address] 77111- 2130 Dec, [place] [id number] [place] [address] 93184- 3868 Dec, Dental examination Z01.20 [place] [id number] [place] [address] 70467- 8397 Dec, [place] [id number] [place] [address] 86790- 4704 Dec, Leukocytosis D72.829 [place] [id number] [place] [address] 89241- 6044 Dec, Uncontrolled type 2 diabetes mellitus with hyperglycemia, without long-term current use of insulin E11.65 [place] [id number] [place] [address] 01691- 1121 Nov, Dental examination Z01.20 [facility], [place] [address] [place] [address]- 8690 Nov, [place] [id number] [place] [address] 70696- 4129 Nov, Major depressive disorder, recurrent episode, moderate F33.1 [place] [id number] [place] [address] 48061- 3961 Nov, Leukocytosis D72.829 [place] [id number] [place] [address] 57491- 0726 Nov, Mood disorder F39 [place] [id number] [place] [address] 81277- 2653 Nov, Other osteoarthritis of spine, cervical region M47.892 and Uncontrolled type 2 diabetes mellitus with hyperglycemia, without long-term current use of insulin E11.65 [place] [id number] [place] [address] 10769- 7882 Nov, Leukocytosis D72.829 and Elevated serum glucose R73.9 [place] [id number] [place] [address] 58415- 9618 October, Elevated serum glucose R73.9 [place] [id number] [place] [address] 36668- 0909 October, Mood disorder F39 [place] [id number] [place] [address] 45084- 2652 Sep, Major depressive disorder, recurrent episode, moderate F33.1 [place] [address] [place] [address]- 3409 Sep, Mood disorder F39 [place] [id number] [place] [address] 27369- 1092 Aug, [place] [address] [place] [address]- 9412 Jul, Major depressive disorder, recurrent episode, moderate F33.1 [facility], [place] [address] [place] [address]- 2475 Jul, Mood disorder F39 [facility], [place] [id number] [place] [address] 85562- 8412 Jul, [facility], [place] [id number] [place] [address] 41080- 4799 Jul, History of IN (myocardial infarction) I25.2 ; Hyperlipidemia E78.5 ; Prediabetes R73.09 ; Chronic obstructive pulmonary disease, unspecified COPD type J44.9 and Tobacco use Z72.0 [facility], [place] [id number] [place] [address] 73783- 6553 Jun, [facility], [place] [id number] [place] [address] 17877- 4748 Jun, Mood disorder F39 [facility], [place] [id number] [place] [address] 26335- 8415 Jun, [facility], [place] [id number] [place] [address] 01318- 8562 May, Major depressive disorder, recurrent episode, moderate F33.1 and Primary insomnia F51.01 [facility], [place] [id number] [place] [address] 15609- 9142 May, Mood disorder F39 [facility], [place] [id number] [place] [address] 27634- 9659 Apr, [facility], [place] [id number] [place] [address] 39938- 0704 Apr, Mood disorder F39 [facility], [place] [id number] [place] [address] 78843- 7865 Apr, [facility], [place] [id number] [place] [address] 35921- 1118 Apr, [facility], [place] [id number] [place] [address] 06751- 7355 Apr, Chronic obstructive pulmonary disease, unspecified COPD type J44.9 and Non-seasonal allergic rhinitis due to other allergic trigger J30.89 [facility], [place] [id number] [place] [address] 16488- 9634 Apr, Mood disorder F39 [facility], [place] [id number] [place] [address] 33180- 7709 Apr, Major depressive disorder, recurrent episode, moderate F33.1 and PTSD (post-traumatic stress disorder) F43.10 [facility], [place] [id number] [place] [address] 00504- 4861 Apr, [place] [address] 76896- 2868 Apr, [place] [id number] [place] [address] 33048- 6556 Apr, Chest pain, unspecified type R07.9 ; Chronic obstructive pulmonary disease, unspecified COPD type J44.9 ; Hyperlipidemia, unspecified hyperlipidemia type E78.5 and Tobacco use Z72.0 [facility], [place] [id number] [place] [address] 03539- 5310 Mar, Mood disorder F39 [facility], [place] [id number] [place] [address] 07202- 3470 Mar, Mood disorder F39 [facility], [place] [id number] [place] [address] 63295- 7165 Mar, Other osteoarthritis of spine, cervical region M47.892 [facility], [place] [id number] [place] [address] 90829- 5547 Mar, Tear of right rotator cuff, unspecified tear extent M75.101 [facility], [place] [id number] [place] [address] 28614- 4581 Mar, [facility], [place] [id number] [place] [address] 47243- 0838 Mar, Bipolar II disorder F31.81 [facility], [place] [id number] [place] [address] 58228- 0213 Mar, [place] [id number] [place] [address] 39515- 7392 Feb, Impingement syndrome of right shoulder M75.41 ; Tear of right rotator cuff, unspecified tear extent M75.101 and Loose body in right elbow M24.021 [place] [address] 79275- 7118 Jan, [place] [id number] [place] [address] 28041- 3884 Jan, [place] [address] 03779- 0994 Jan, Prediabetes R73.09 ; Other chronic pain G89.29 and Pain in right shoulder M25.511 [place] [address] 17793- 8327 Dec, [place] [id number] [place] [address] 23541- 8017 Dec, Heartburn R12 and Chest discomfort R07.89 [place] [id number] [place] [address] 75679- 4967 Dec, Impingement syndrome of right shoulder M75.41 and 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, 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 [place] [address] [place] [id number] [place] [address] 14471- 5688 Nov, [place] [address] [place] [id number] [place] [address] 40976- 8258 Nov, Leukocytosis D72.829 [place] [address] [place] [id number] [place] [address] 11347- 9983 Nov, [place] [address] [place] [id number] [place] [address] 29107- 0852 Nov, Enlarged lymph node R59.9 ; Chronic obstructive pulmonary disease, unspecified COPD type J44.9 ; Low back pain M54.5 ; Neuropathy G62.9 and Closed nondisplaced fracture of sternal end of right clavicle, sequela S42.017S [place] [address] [place] [id number] [place] [address] 67890- 5262 October, [place] [address] 0[address]- 7558 October, [place] [address] 88674- 5737 Sep, [place] [address] 34258- 9607 Aug, Double vision H53.2 ; Occipital headache R51 ; Chronic obstructive pulmonary disease, unspecified COPD type J44.9 and Gastroesophageal reflux disease, esophagitis presence not specified K21.9 [place] [address] 049[address]- 1917 Aug, [place] [address] 81546- 8218 Jul, Enlarged lymph node in neck R59.0 [place] [address] 83663- 9222 Jul, [place] [address] 33896- 9460 Jul, Chronic obstructive pulmonary disease, unspecified COPD type J44.9 ; Tobacco use Z72.0 ; Leukocytosis D72.829 ; Hyperlipidemia E78.5 and Neck abscess L02.11 [place] [address] [place] [id number] [place] [address] 22263- 1614 Jun, Shortness of breath R06.02 [place] [address] 80658- 2369 May, Leukocytosis D72.829 and Shortness of breath R06.02 [place] [address] 84514- 9879 May, Low back pain M54.5 ; Hyperlipidemia E78.5 ; Leukocytosis D72.829 ; Other osteoarthritis of spine, cervical region M47.892 and Shortness of breath R06.02 [place] [address] [place] [id number] [place] [address] 34888- 9490 Feb, Chest pain 786.50 ; Tobacco use 305.1 ; Back pain 724.5 and Hyperlipemia 272.4 [place] [address] [place] [id number] [place] [address] 44302- 4164 Jan, [address] 958[address]- 4673 Jan, Chronic low back pain 724.2 and Degenerative arthritis of cervical spine 721.0 [place] [id number] [place] [address] 57058- 1398 Jan, Chronic low back pain 724.2 and Neck pain 723.1 [place] [address] [place] [id number] [place] [address] 43072- 4818 Dec, Chronic low back pain 724.2 and Neck pain 723.1 [place] [id number] [place] [address] 98156- 1021 Nov, Chest pain 786.50 ; Dyspnea 786.09 ; Tobacco use 305.1 and Back pain 724.5 [place] [id number] [place] [address] 44498- 2072 Nov, [place] [id number] [place] [address] 16540- 8787 Nov, Disability examination V68.01 and Muscle pain 729.1 [place] [id number] [place] [address] 77297- 6119 October, History of IN (myocardial infarction) 412 ; Hyperlipidemia LDL goal < 100 272.4 ; Leukocytosis 288.60 and Glucose intolerance (pre-diabetes ) 790.[address] [place], [place] [address] October, Chest pain 786.50 ; Chronic low back pain 724.2 ; History of IN (myocardial infarction) 412 and Neuropathy 355.9 [facility], [place] [address] [facility] [id number] [place] [address] October, Chronic low back pain 724.2 ; [...]
--- OUTSIDE RECORDS SUMMARY | 2018-04-03 15:00 | XMS REPORT ---
Author Author KINJAL DORIS [facility] Address [facility] [place] [address] Care Team Providers Care [employer]derer [employer] Name Role Phone DORIS LAYTON Unavailable PROBLEMS Type Condition ICD9-CM Code GKX60-PL Code Onset Dates Condition Status SNOMED Code Problem Enlarged lymph node R59.9 Active 58616811 Problem Hyperlipidemia, unspecified hyperlipidemia type E78.5 Active 46949103 Problem Tear of right rotator cuff, unspecified tear extent M75.101 Active 876498429 Problem Other chronic pain G89.29 Active 89994185 Problem Internal hemorrhoids K64.8 Active 58664152 Problem Nocturnal hypoxia G47.34 Active 115350906 Problem Panlobular emphysema J43.1 Active 7081986 Problem Hyperplastic colonic polyp, unspecified part of colon K63.5 Active 626774175 Problem Non-seasonal allergic rhinitis due to other allergic trigger J30.89 Active 87941308 Problem Mood disorder F39 Active 99022502 Problem Bipolar disorder, unspecified F31.9 Active 55092109 Problem Uncontrolled type 2 diabetes mellitus with hyperglycemia, without long -term current use of insulin E11.65 Active 413503289 Problem GERD with esophagitis K21.0 Active 312199020 Problem Other osteoarthritis of spine, cervical region M47.892 Active 019271092 Problem Hiatal hernia K44.9 Active 15506483 Problem External hemorrhoids K64.4 Active 41603996 Problem Leukocytosis D72.829 Active 739578260 Problem Hyperlipidemia E78.5 Active 49036587 Problem History of NM (myocardial infarction) I25.2 Active 765342840 Problem Neuropathy G62.9 Active 589753619 Problem Other chronic gastritis without hemorrhage K29.50 Active 9262670 Problem Low back pain M54.5 Active 019348227 Problem Tobacco use Z72.0 Active 552549776 ALLERGIES No Information ENCOUNTERS Encounter Location Date Diagnosis [facility] [address] [address] 14 Jun, 2018 [facility] [address] [address] Apr, [facility] [address] [address] Mar, Uncontrolled type 2 diabetes mellitus with hyperglycemia, without long-term current use of insulin E11.65 [facility] [address] [address] Mar, Fall (on) (from) other stairs and steps, initial encounter W10.8XXA ; Lumbar contusion, initial encounter S30.0XXA ; Elbow pain, right M25.521 and Thoracic spine pain M54.6 [place] [address] [address] Mar, Mood disorder F39 [place] [address] [address]- [address] Mar, [place] [address] [address]- 9[address] Mar, Leukocytosis D72.829 [place] [address] [address]- [address] Mar, [place] [address] [address] Mar, Other chronic gastritis without hemorrhage K29.50 [place] [address] [address]- 0647 Mar, Uncontrolled type 2 diabetes mellitus with hyperglycemia, without long-term current use of insulin E11.65 ; Low back pain M54.5 ; Other osteoarthritis of spine, cervical region M47.892 ; Panlobular emphysema J43.1 ; Leukocytosis D72.829 and Lumbar back pain with radiculopathy affecting lower extremity M54.16 [place] [address] [address] Feb, [facility] [address], [place] [address] Feb, [facility] [address] [place] [id number] Feb, Uncontrolled type 2 diabetes mellitus with hyperglycemia, without long-term current use of insulin E11.65 [facility] [address], [place] [address] Feb, Mood disorder F39 [facility] [address] [address] Jan, [facility] [address] [place] [id number] [place] [address] 378896- 7438 Jan, Mood disorder F39 [facility] [address] [address] Jan, [facility] [address] [place] [address] 52848- 5344 Dec, Bipolar disorder, unspecified F31.9 [facility] [address] [address] Dec, [facility] [address], [place] [address] Dec, [facility] [address], [place] [address] Dec, [facility] [address], [place] [address] Dec, Mood disorder F39 [facility] [address] [address] Nov, Bipolar disorder, unspecified F31.9 [facility] [address] [place] [id number] Nov, [facility] [address] [address] Nov, Pain in left knee M25.562 ; Other chronic pain G89.29 ; Hyperlipidemia E78.5 ; Leukocytosis D72.829 ; Other osteoarthritis of spine, cervical region M47.892 ; Tobacco use Z72.0 and Uncontrolled type 2 diabetes mellitus with hyperglycemia, without long-term current use of insulin E11.65 [facility] [address] [place] [address] [id number] [place] [address] 56355- 3645 Nov, [facility] [address] 8[address]- 2667 Nov, [facility] [address] [place] [address] [id number] [place] [address] 06748- 8476 October, [facility] [address] [place] [id number] [place] [address]- 1913 October, Low back pain M54.5 [facility] [address] [place] [address] [id number] [place] [address] 61633- 6853 Sep, [facility] [address] [place] [address] [id number] [place] [address] 54805- 8700 Sep, [facility] [address] [place] [address] [id number] [place] [address] 0[address]50- 2014 Sep, Leukocytosis D72.829 [facility] [address] [place] [address] [id number] [place] [address] 94430- 6107 Sep, [facility] [address] [place] [address] [id number] [place] [address] 40409- 0130 Sep, [facility] [address] [place] [id number] [place] [address] 72340- 8520 Sep, [facility] [address] [place] [id number] [place] [address] 15391- 5528 Aug, Low back pain M54.5 [facility] [address] [place] [address] [id number] [place] [address] 93245- 3292 Aug, Bipolar disorder, unspecified F31.9 [facility] [address] [place] [address] 3[address] Aug, [facility] [address] [place] [id number] [place] [address] 71519- 8066 Aug, [facility] [address] [place] [id number] [place] [address] 97150- 9502 Aug, Uncontrolled type 2 diabetes mellitus with hyperglycemia, without long-term current use of insulin E11.65 ; Non-healing surgical wound, initial encounter T81.89XA ; Cellulitis of abdominal wall L03.311 ; Hyperlipidemia E78.5 ; Chronic obstructive pulmonary disease, unspecified COPD type J44.9 and Tobacco use Z72.0 [place] [address] [place] [id number] [place] [address] 44288- 2411 Aug, [place] [address] [place] [id number] [place] [address] 07149- 1506 Jul, [facility] [address] [place] [id number] [place] [address] 16001- 7655 Jul, [facility] [address] [place] [address] [id number] [place] [address] 52379- 5081 Jul, Type 2 diabetes mellitus 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, unspecified fpc insulin use status E11.40 [place] [address] [place] [id number] [place] [address] 79524- 0905 Jun, Bipolar disorder, unspecified F31.9 [facility] [address] [place] [address] [id number] [place] [address] 42031- 7886 Jun, [facility] [address] [place] [address] [id number] [place] [address] 00757- 6857 Jun, Bipolar disorder, unspecified F31.9 [place] [address] [place] [id number] [place] [address] 75172- 2637 Jun, Mood disorder F39 [facility] [address] [place] [address] [id number] [place] [address] 43000- 3283 Jun, [facility] [address] [place] [address] [id number] [place] [address] 56615- 1356 May, Fissure in skin of foot R23.4 ; Callus of foot L84 and Type 2 diabetes mellitus 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, unspecified terminal carman insulin use status E11.40 [place] [address] [place] [id number] [place] [address] 50983- 5241 May, Mood disorder F39 [place] [address] 8[address]- 3958 Apr, [place] [address] 93063- 0698 Apr, Cough R05 and Tobacco use Z72.0 [place] [address] 30794- 1179 Apr, Cough R05 and Tobacco use Z72.0 [place] [address] [place] [id number] [place] [address] 04657- 7495 Apr, Mood disorder F39 [place] [address] [place] [id number] [place] [address] 03210- 2802 Apr, Low back pain M54.5 [place] [address] 43789- 9104 Apr, Uncontrolled type 2 diabetes mellitus with hyperglycemia, without long-term current use of insulin E11.65 [place] [address] [place] [id number] [place] [address] 48056- 8802 Apr, Uncontrolled type 2 diabetes mellitus with hyperglycemia, without long-term current use of insulin E11.65 [place] [address] [place] [id number] [place] [address] 23964- 9143 Mar, Bipolar disorder, unspecified F31.9 [place] [address] [place] [id number] [place] [address] 59151- 8417 Mar, [place] [address] [place] [id number] [place] [address] 86645- 1113 Mar, Bipolar disorder, unspecified F31.9 [place] [address], [place] [address]- 2845 Mar, Mood disorder F39 [place] [address] [place] [id number] [place] [address] 54308- 1483 Feb, [place] [address] [place] [id number] [place] [address] 95023- 8495 Feb, [place] [address] 47489- 1465 Feb, [place] [address] [place] [id number] [place] [address] 12130- 8457 Feb, Bipolar disorder, unspecified F31.9 [place] [address] [place] [id number] [place] [address] 45666- 2781 Feb, Uncontrolled type 2 diabetes mellitus with hyperglycemia, without long-term current use of insulin E11.65 ; Encounter for immunization Z23 ; Vasovagal syncope R55 and Low back pain M54.5 [place] [address] [place] [id number] [place] [address] 75091- 8585 Jan, Bipolar disorder, unspecified F31.9 [place] [address] [place] [id number] [place] [address] 29979- 7939 Jan, [place] [address] [place] [id number] [place] [address] 95029- 8693 Jan, Fatigue, unspecified type R53.83 ; Nocturnal hypoxia G47.34 ; Leukocytosis D72.829 ; Other chronic gastritis without hemorrhage K29.50 ; Uncontrolled type 2 diabetes mellitus with hyperglycemia, without long-term current use of insulin E11.65 ; Alternating constipation and diarrhea R19.8 and Chronic obstructive pulmonary disease, unspecified COPD type J44.9 [place] [address] [place] [id number] [place] [address] 28003- 2014 Jan, [place] [address] [place] [id number] [place] [address] 26241- 5418 Jan, Leukocytosis D72.829 [place] [address], [place] [address]- 1511 Jan, Mood disorder F39 [facility] [id number] [place] [address] 05456- 7943 Dec, Bipolar disorder, unspecified F31.9 [facility] [address], [place] [address]- 2509 Dec, [facility] [id number] [place] [address] 28863 -3453 Dec, Acute gastritis without bleeding K29.00 [facility] [address] [place] [address] 88842- 7313 Dec, Leukocytosis D72.829 [facility] [address] [place] [id number] [place] [address] 84297- 9081 Dec, [facility] [address] [place] [id number] [place] [address] 69744- 2000 Dec, Dental examination Z01.20 [facility] [id number] [place] [address] 23848- 6851 Dec, [facility] [address] [place] [id number] [place] [address] 43379- 9414 Dec, Leukocytosis D72.829 [facility] [address], [place] [address]- 5264 Dec, Uncontrolled type 2 diabetes mellitus with hyperglycemia, without long-term current use of insulin E11.65 [facility] [address], [place] [address]- 1150 Nov, Dental examination Z01.20 [facility] [address] [place] [address] 09599- 1068 Nov, [facility] [address], [place] [address]- 5878 Nov, Major depressive disorder, recurrent episode, moderate F33.1 [facility] [address] [address]- 7966 Nov, Leukocytosis D72.829 [facility] [address] [place] [address] [id number] [place] [address] 98369- 5360 Nov, Mood disorder F39 [facility] [address] [place] [id number] [place] [address] 89073- 1490 Nov, Other osteoarthritis of spine, cervical region M47.892 and Uncontrolled type 2 diabetes mellitus with hyperglycemia, without long-term current use of insulin E11.65 [facility] [address] [place] [id number] [place] [address] 44875- 9510 Nov, Leukocytosis D72.829 and Elevated serum glucose R73.9 [place] [address] [place] [id number] [place] [address] 66668- 5308 October, Elevated serum glucose R73.9 [place] [address] [place] [id number] [place] [address] 16373- 0433 October, Mood disorder F39 [facility] [address] [place] [id number] [place] [address] 43161- 0766 Sep, Major depressive disorder, recurrent episode, moderate F33.1 [place] [address] [place] [address] 78475- 4790 Sep, Mood disorder F39 [facility] [address] [place] [address] 48599- 0705 Aug, [facility] [address] [id number] [place] [address] 90192- 2543 Jul, Major depressive disorder, recurrent episode, moderate F33.1 [facility] [address] [place] [id number] [place] [address] 53534- 4241 Jul, Mood disorder F39 [facility] [address] [place] [address] 34614- 1326 Jul, [facility] [address] [place] [id number] [place] [address] 66194- 0268 Jul, History of NM (myocardial infarction) I25.2 ; Hyperlipidemia E78.5 ; Prediabetes R73.09 ; Chronic obstructive pulmonary disease, unspecified COPD type J44.9 and Tobacco use Z72.0 [facility] [id number] [place] [address] 99688- 9740 Jun, [place] [address] [place] [address] [id number] [place] [address] 12295- 0061 Jun, Mood disorder F39 [place] [address] [place] [id number] [place] [address] 50440- 4456 Jun, [place] [address] [place] [id number] [place] [address] 22744- 5250 May, Major depressive disorder, recurrent episode, moderate F33.1 and Primary insomnia F51.01 [place] [address] [place] [id number] [place] [address] 53388- 3381 May, Mood disorder F39 [place] [id number] [place] [address] 18450- 3652 Apr, [place] [address] [place] [address] [id number] [place] [address] 47679- 9495 Apr, Mood disorder F39 [facility] [address] [place] [id number] [place] [address] 15768- 8741 Apr, [facility] [id number] [place] [address] 87243- 8270 Apr, [facility] [address] [place] [id number] [place] [address] 54697- 6997 Apr, Chronic obstructive pulmonary disease, unspecified COPD type J44.9 and Non-seasonal allergic rhinitis due to other allergic trigger J30.89 [facility] [id number] [place] [address] 53706- 2004 11 Apr, 2016 Mood disorder F39 [place] [address] [place] [address] [id number] [place] [address] 06323- 2373 Apr, Major depressive disorder, recurrent episode, moderate F33.1 and PTSD (post-traumatic stress disorder) F43.10 [place] [address] [place] [address] [id number] [place] [address] 11989- 4279 Apr, [place] [address] [place] [address] [id number] [place] [address] 70653- 5312 Apr, [place] [address] 12192- 7241 Apr, Chest pain, unspecified type R07.9 ; Chronic obstructive pulmonary disease, unspecified COPD type J44.9 ; Hyperlipidemia, unspecified hyperlipidemia type E78.5 and Tobacco use Z72.0 [place] [address] 74270- 8272 Mar, Mood disorder F39 [place] [address] [place] [address] [id number] [place] [address] 90536- 2978 Mar, Mood disorder F39 [place] [address] 77185- 4919 Mar, Other osteoarthritis of spine, cervical region M47.892 [place] [address] 38435- 4921 Mar, Tear of right rotator cuff, unspecified tear extent M75.101 [place] [address] [place] [id number] [place] [address] 51650- 8996 Mar, [place] [address] [address] [id number] [place] [address] 12046- 0701 Mar, Bipolar II disorder F31.81 [place] [id number] [place] [address] 02205- 2914 Mar, [place] [address] 29875- 6530 Feb, Impingement syndrome of right shoulder M75.41 ; Tear of right rotator cuff, unspecified tear extent M75.101 and Loose body in right elbow M24.021 [place] [address], [place] [address]- 5024 Jan, [place] [address] [address] [id number] [place] [address] 50055- 0713 Jan, [facility] [id number] [place] [address] 95089- 3848 Jan, Prediabetes R73.09 ; Other chronic pain G89.29 and Pain in right shoulder M25.511 [place] [id number] [place] [address] 61617- 7440 Dec, [place] [address] [address] [id number] [place] [address] 05575- 9719 Dec, Heartburn R12 and Chest discomfort R07.89 [place] [address] [place] [id number] [place] [address] 86214- 4572 Dec, Impingement syndrome of right shoulder M75.41 and 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, 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 [place] [id number] [place] [address] 53087- 1571 Nov, [place] [address] [id number] [place] [address] 96302- 5705 Nov, Leukocytosis D72.829 [place] [address] [place] [address] [id number] [place] [address] 50946- 9063 Nov, [place] [address] [id number] [place] [address] 75926- 5522 Nov, Enlarged lymph node R59.9 ; Chronic obstructive pulmonary disease, unspecified COPD type J44.9 ; Low back pain M54.5 ; Neuropathy G62.9 and Closed nondisplaced fracture of sternal end of right clavicle, sequela S42.017S [place] [id number] [place] [address] 19471- 7344 October, [place] [id number] [place] [address] 75202- 4517 October, [place] [id number] [place] [address] 06589- 7860 Sep, [place] [id number] [place] [address] 92980- 0566 Aug, Double vision H53.2 ; Occipital headache R51 ; Chronic obstructive pulmonary disease, unspecified COPD type J44.9 and Gastroesophageal reflux disease, esophagitis presence not specified K21.9 [place] [address] [id number] [place] [address] 24735- 6829 Aug, [place] [address] [id number] [place] [address] 87654- 1369 Jul, Enlarged lymph node in neck R59.0 [place] [address] [id number] [place] [address] 52029- 4350 Jul, [place] [id number] [place] [address] 88074- 0501 Jul, Chronic obstructive pulmonary disease, unspecified COPD type J44.9 ; Tobacco use Z72.0 ; Leukocytosis D72.829 ; Hyperlipidemia E78.5 and Neck abscess L02.11 [place] [address] [place] [id number] [place] [address] 74480- 4005 Jun, Shortness of breath R06.02 [place] [address] [place] [address] [id number] [place] [address] 85483- 8517 17 May, 2015 Leukocytosis D72.829 and Shortness of breath R06.02 [place] [address] [id number] [place] [address] 84239- 8283 09 May, 2015 Low back pain M54.5 ; Hyperlipidemia E78.5 ; Leukocytosis D72.829 ; Other osteoarthritis of spine, cervical region M47.892 and Shortness of breath R06.02 [place] [id number] [place] [address] 64502- 7969 18 Feb, 2015 Chest pain 786.50 ; Tobacco use 305.1 ; Back pain 724.5 and Hyperlipemia 272.4 [place] [id number] [place] [address] 49129- 1360 Jan, [place] [address] 16381- 8906 Jan, Chronic low back pain 724.2 and Degenerative arthritis of cervical spine 721.[address] 03023- 5960 Jan, Chronic low back pain 724.2 and Neck pain 723.[address] 02070- 1861 Dec, Chronic low back pain 724.2 and Neck pain 723.[address] 28473- 4375 Nov, Chest pain 786.50 ; Dyspnea 786.09 ; Tobacco use 305.1 and Back pain 724.5 [place] [address] [place] [address] [id number] [place] [phone] Nov, [address] [address] Nov, Disability examination V68.01 and Muscle pain 729.1 [place] [id number] [place] [phone] October, History of NM (myocardial infarction) 412 ; Hyperlipidemia LDL goal < 100 272.4 ; Leukocytosis 288.60 and Glucose intolerance (pre-diabetes ) 790.29 [place] [id number] [place] [phone] October, Chest pain 786.50 ; Chronic low back pain 724.2 ; History of NM (myocardial infarction) 412 and Neuropathy 355.9 [place] [id number] [place] [phone] October, Chronic low back pain 724.2 ; Chest pain 786.50 ; History of NM (myocardial infarction) 412 and Neuropathy 355.9 IMMUNIZATIONS No Known Immunizations SOCIAL HISTORY Never Assessed REASON FOR VISIT Deferred Lab PLAN OF CARE VITAL SIGNS MEDICATIONS Unknown [...]
--- OUTSIDE RECORDS SUMMARY | 2018-04-03 15:00 | XMS REPORT ---
Author Author ERWIN LEO [facility] Address [facility] [place] [address] Care Team Providers Care Log Buyer Name Role Phone ERWIN LEO Unavailable PROBLEMS Type Condition ICD9-CM Code NQD50-EO Code Onset Dates Condition Status SNOMED Code Problem Enlarged lymph node R59.9 Active 50376013 Problem Hyperlipidemia, unspecified hyperlipidemia type E78.5 Active 90617240 Problem Tear of right rotator cuff, unspecified tear extent M75.101 Active 854497693 Problem Other chronic pain G89.29 Active 44399805 Problem Internal hemorrhoids K64.8 Active 11995834 Problem Nocturnal hypoxia G47.34 Active 222604351 Problem Panlobular emphysema J43.1 Active 1556919 Problem Hyperplastic colonic polyp, unspecified part of colon K63.5 Active 294784759 Problem Non-seasonal allergic rhinitis due to other allergic trigger J30.89 Active 98869897 Problem Mood disorder F39 Active 04273055 Problem Bipolar disorder, unspecified F31.9 Active 27431195 Problem Uncontrolled type 2 diabetes mellitus with hyperglycemia, without long -term current use of insulin E11.65 Active 828500557 Problem GERD with esophagitis K21.0 Active 091388689 Problem Other osteoarthritis of spine, cervical region M47.892 Active 715853202 Problem Hiatal hernia K44.9 Active 29938966 Problem External hemorrhoids K64.4 Active 66961763 Problem Leukocytosis D72.829 Active 091054168 Problem Hyperlipidemia E78.5 Active 55326582 Problem History of RI (myocardial infarction) I25.2 Active 784935282 Problem Neuropathy G62.9 Active 020529335 Problem Other chronic gastritis without hemorrhage K29.50 Active 2546314 Problem Low back pain M54.5 Active 253503056 Problem Tobacco use Z72.0 Active 255116558 ALLERGIES No Information ENCOUNTERS Encounter Location Date Diagnosis [facility] [address] [address] 14 Jun, 2018 [facility] [address] [address] Apr, [facility] [address] [address] Mar, Uncontrolled type 2 diabetes mellitus with hyperglycemia, without long-term current use of insulin E11.65 [facility] [address] [address] Mar, Fall (on) (from) other stairs and steps, initial encounter W10.8XXA ; Lumbar contusion, initial encounter S30.0XXA ; Elbow pain, right M25.521 and Thoracic spine pain M54.6 [facility] [address] [address]- [address] Mar, Mood disorder F39 [facility] [address] [address]- [address] Mar, [facility] [address] [address]- 9529 Mar, Leukocytosis D72.829 [facility] [address] [address]- 70[address] Mar, [place] [facility] [address] [address]- 117[address] Mar, Other chronic gastritis without hemorrhage K29.50 [facility] [address] [address]- [address] Mar, Uncontrolled type 2 diabetes mellitus with hyperglycemia, without long-term current use of insulin E11.65 ; Low back pain M54.5 ; Other osteoarthritis of spine, cervical region M47.892 ; Panlobular emphysema J43.1 ; Leukocytosis D72.829 and Lumbar back pain with radiculopathy affecting lower extremity M54.16 [facility] [facility] [address] [address] Feb, [facility] [address], [place] [address] Feb, [facility] [id number] [address] Feb, Uncontrolled type 2 diabetes mellitus with hyperglycemia, without long-term current use of insulin E11.65 [facility] [address], [place] [address] Feb, Mood disorder F39 [facility] [address] [address] [address] Jan, [facility] [id number] [place] [address] 213423- 4177 Jan, Mood disorder F39 [facility] [address] [place] [address] 12[address] Jan, [facility] [id number] [place] [address] 89477- 5859 Dec, Bipolar disorder, unspecified F31.9 [facility] [address] [place] [address] Dec, [facility] [address], [place] [address] 8[address] Dec, [facility] [address], [place] [address] 08[address] Dec, [facility] [address], [place] [address] 4[address] Dec, Mood disorder F39 [facility] [address] [address] Nov, Bipolar disorder, unspecified F31.9 [facility] [id number] [address] Nov, [facility] [address] [address] [address] Nov, Pain in left knee M25.562 ; Other chronic pain G89.29 ; Hyperlipidemia E78.5 ; Leukocytosis D72.829 ; Other osteoarthritis of spine, cervical region M47.892 ; Tobacco use Z72.0 and Uncontrolled type 2 diabetes mellitus with hyperglycemia, without long-term current use of insulin E11.65 [facility] [id number] [place] [address] 39427- 2585 Nov, [facility] [address] [address]- [address] Nov, [facility] [id number] [place] [address] 35692- 2048 October, [facility] [id number] [place] [address] 16104- 9179 October, Low back pain M54.5 [facility] [id number] [place] [address] 74757- 1122 Sep, [facility] [id number] [place] [address] 19586- 5517 Sep, [facility] [id number] [place] [address] 11389- 9630 Sep, Leukocytosis D72.829 [facility] [id number] [place] [address] 93969- 1791 Sep, [facility] [id number] [place] [address] 14562- 4639 Sep, [facility] [id number] [place] [address] 69205- 4075 Sep, [facility] [id number] [place] [address] 92104- 7607 Aug, Low back pain M54.5 [facility] [id number] [place] [address] 43520- 7819 Aug, Bipolar disorder, unspecified F31.9 [facility] [address] [place] [address] Aug, [facility] [id number] [place] [address] 65729- 0622 Aug, [facility] [id number] [place] [address] 18827- 3923 Aug, Uncontrolled type 2 diabetes mellitus with hyperglycemia, without long-term current use of insulin E11.65 ; Non-healing surgical wound, initial encounter T81.89XA ; Cellulitis of abdominal wall L03.311 ; Hyperlipidemia E78.5 ; Chronic obstructive pulmonary disease, unspecified COPD type J44.9 and Tobacco use Z72.0 [facility] [id number] [place] [address] 28339- 2198 Aug, [facility] [id number] [place] [address] 65027- 8275 Jul, [facility] [id number] [place] [address] 58517- 1811 Jul, [facility] [id number] [place] [address] 84196- 2218 Jul, Type 2 diabetes mellitus 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, unspecified senior care insulin use status E11.40 [facility] [id number] [place] [address] 35789- 8858 Jun, Bipolar disorder, unspecified F31.9 [facility] [id number] [place] [address] 28168- 3195 Jun, [facility] [id number] [place] [address] 88070- 4159 Jun, Bipolar disorder, unspecified F31.9 [facility] [id number] [place] [address] 75895- 7044 Jun, Mood disorder F39 [facility] [id number] [place] [address] 74552- 9256 Jun, [facility] [id number] [place] [address] 83315- 3873 May, Fissure in skin of foot R23.4 ; Callus of foot L84 and Type 2 diabetes mellitus 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, unspecified senior care insulin use status E11.40 [facility] [id number] [place] [address] 93497- 8875 May, Mood disorder F39 [place] [address] [address]- 9767 Apr, [place] [facility] [address] [address]61- 8264 Apr, Cough R05 and Tobacco use Z72.0 [place] [address] [address]- 0369 Apr, Cough R05 and Tobacco use Z72.0 [facility] [id number] [place] [address] 90877- 5071 Apr, Mood disorder F39 [facility] [id number] [place] [address] 36422- 9028 Apr, Low back pain M54.5 [facility] [address] 74097- 0980 Apr, Uncontrolled type 2 diabetes mellitus with hyperglycemia, without long-term current use of insulin E11.65 [facility] [id number] [place] [address] 26006- 4344 Apr, Uncontrolled type 2 diabetes mellitus with hyperglycemia, without long-term current use of insulin E11.65 [facility] [id number] [place] [address] 20318- 7554 Mar, Bipolar disorder, unspecified F31.9 [facility] [id number] [place] [address] 74210- 2455 Mar, [facility] [id number] [place] [address] 34430- 8071 Mar, Bipolar disorder, unspecified F31.9 [facility] [facility] [address], [place] [address]- 2110 Mar, Mood disorder F39 [facility] [id number] [place] [address] 41494- 8138 Feb, [facility] [id number] [place] [address] 96188- 4809 Feb, [place] [facility] [address] 91374- 6089 Feb, [facility] [facility] [id number] [place] [address] 93210- 4540 Feb, Bipolar disorder, unspecified F31.9 [facility] [facility] [id number] [place] [address] 21817- 1103 Feb, Uncontrolled type 2 diabetes mellitus with hyperglycemia, without long-term current use of insulin E11.65 ; Encounter for immunization Z23 ; Vasovagal syncope R55 and Low back pain M54.5 [place] [id number] [place] [address] 86241- 9862 Jan, Bipolar disorder, unspecified F31.9 [facility] [facility] [id number] [place] [address] 78426- 7350 Jan, [facility] [facility] [id number] [place] [address] 74242- 4542 Jan, Fatigue, unspecified type R53.83 ; Nocturnal hypoxia G47.34 ; Leukocytosis D72.829 ; Other chronic gastritis without hemorrhage K29.50 ; Uncontrolled type 2 diabetes mellitus with hyperglycemia, without long-term current use of insulin E11.65 ; Alternating constipation and diarrhea R19.8 and Chronic obstructive pulmonary disease, unspecified COPD type J44.9 [facility] [id number] [place] [address] 98426- 2581 Jan, [facility] [id number] [place] [address] 62781- 3249 Jan, Leukocytosis D72.829 [place] [address], [place] [address]- 9006 Jan, Mood disorder F39 [facility] [id number] [place] [address] 58629- 6323 Dec, Bipolar disorder, unspecified F31.9 [facility] [address], [place] [address]- 9361 Dec, [facility] [id number] [place] [address] 03826 -8523 Dec, Acute gastritis without bleeding K29.00 [facility] [id number] [place] [address] 70558- 3511 Dec, Leukocytosis D72.829 [facility] [id number] [place] [address] 59667- 2715 Dec, [facility] [id number] [place] [address] 23016- 2348 Dec, Dental examination Z01.20 [facility] [id number] [place] [address] 02607- 5208 Dec, [facility] [address] [id number] [place] [address] 78415- 7988 Dec, Leukocytosis D72.829 [facility] [address], [place] [address]- 2259 Dec, Uncontrolled type 2 diabetes mellitus with hyperglycemia, without long-term current use of insulin E11.65 [facility] [address], [place] [address]- 8181 Nov, Dental examination Z01.20 [facility] [id number] [place] [address] 40641- 3733 Nov, [facility] [address], [place] [address]- 2119 Nov, Major depressive disorder, recurrent episode, moderate F33.1 [facility] [id number] [address]- 0485 Nov, Leukocytosis D72.829 [facility] [id number] [place] [address] 63426- 8409 Nov, Mood disorder F39 [facility] [id number] [place] [address] 94605- 8421 Nov, Other osteoarthritis of spine, cervical region M47.892 and Uncontrolled type 2 diabetes mellitus with hyperglycemia, without long-term current use of insulin E11.65 [facility] [id number] [place] [address] 26439- 3621 Nov, Leukocytosis D72.829 and Elevated serum glucose R73.9 [facility] [facility] [id number] [place] [address] 34427- 6900 October, Elevated serum glucose R73.9 [place] [id number] [place] [address] 11726- 6814 October, Mood disorder F39 [facility] [id number] [place] [address] 09812- 8580 Sep, Major depressive disorder, recurrent episode, moderate F33.1 [place] [id number] [place] [address] 83229- 3523 Sep, Mood disorder F39 [facility] [id number] [place] [address] 04110- 6744 Aug, [facility] [id number] [place] [address] 67497- 2543 Jul, Major depressive disorder, recurrent episode, moderate F33.1 [facility] [id number] [place] [address] 71136- 1906 Jul, Mood disorder F39 [facility] [id number] [place] [address] 99268- 4756 Jul, [facility] [id number] [place] [address] 53109- 2469 Jul, History of RI (myocardial infarction) I25.2 ; Hyperlipidemia E78.5 ; Prediabetes R73.09 ; Chronic obstructive pulmonary disease, unspecified COPD type J44.9 and Tobacco use Z72.0 [facility] [id number] [place] [address] 23150- 3967 Jun, [place] [id number] [place] [address] 96913- 2879 Jun, Mood disorder F39 [place] [id number] [place] [address] 19081- 7742 Jun, [place] [id number] [place] [address] 58321- 8134 May, Major depressive disorder, recurrent episode, moderate F33.1 and Primary insomnia F51.01 [facility] [facility] [id number] [place] [address] 12795- 6662 May, Mood disorder F39 [place] [id number] [place] [address] 60551- 0140 Apr, [facility] [id number] [place] [address] 83548- 6355 Apr, Mood disorder F39 [facility] [id number] [place] [address] 44855- 8229 Apr, [facility] [id number] [place] [address] 22919- 7471 Apr, [facility] [id number] [place] [address] 47219- 2806 Apr, Chronic obstructive pulmonary disease, unspecified COPD type J44.9 and Non-seasonal allergic rhinitis due to other allergic trigger J30.89 [facility] [id number] [place] [address] 12190- 4874 11 Apr, 2016 Mood disorder F39 [place] [id number] [place] [address] 59160- 3884 Apr, Major depressive disorder, recurrent episode, moderate F33.1 and PTSD (post-traumatic stress disorder) F43.10 [facility] [facility] [id number] [place] [address] 27443- 4672 Apr, [facility] [id number] [place] [address] 07623- 5012 Apr, [place] [address] 67350- 4568 Apr, Chest pain, unspecified type R07.9 ; Chronic obstructive pulmonary disease, unspecified COPD type J44.9 ; Hyperlipidemia, unspecified hyperlipidemia type E78.5 and Tobacco use Z72.0 [place] [address] 19045- 4940 Mar, Mood disorder F39 [place] [id number] [place] [address] 98737- 4813 Mar, Mood disorder F39 [place] [address] 09946- 5441 Mar, Other osteoarthritis of spine, cervical region M47.892 [place] [address] 25240- 8958 Mar, Tear of right rotator cuff, unspecified tear extent M75.101 [place] [id number] [place] [address] 88043- 1191 Mar, [facility] [facility] [id number] [place] [address] 72895- 8392 Mar, Bipolar II disorder F31.81 [place] [facility] [id number] [place] [address] 89568- 4249 Mar, [place] [address] 30071- 2355 Feb, Impingement syndrome of right shoulder M75.41 ; Tear of right rotator cuff, unspecified tear extent M75.101 and Loose body in right elbow M24.021 [place] [address], [place] [address]- 5168 Jan, [place] [facility] [id number] [place] [address] 53847- 4967 Jan, [facility] [id number] [place] [address] 24616- 7849 Jan, Prediabetes R73.09 ; Other chronic pain G89.29 and Pain in right shoulder M25.511 [place] [id number] [place] [address] 09474- 5003 Dec, [place] [facility] [id number] [place] [address] 87583- 8799 Dec, Heartburn R12 and Chest discomfort R07.89 [facility] [facility] [id number] [place] [address] 06781- 3742 Dec, Impingement syndrome of right shoulder M75.41 and 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, 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 [place] [id number] [place] [address] 23544- 2906 Nov, [place] [facility] [id number] [place] [address] 50407- 1949 Nov, Leukocytosis D72.829 [place] [id number] [place] [address] 03917- 0635 Nov, [place] [id number] [place] [address] 45694- 1522 Nov, Enlarged lymph node R59.9 ; Chronic obstructive pulmonary disease, unspecified COPD type J44.9 ; Low back pain M54.5 ; Neuropathy G62.9 and Closed nondisplaced fracture of sternal end of right clavicle, sequela S42.017S [place] [id number] [place] [address] 73768- 8996 October, [place] [facility] [id number] [place] [address] 98280- 9767 October, [facility] [facility] [id number] [place] [address] 95618- 6109 Sep, [place] [facility] [id number] [place] [address] 19649- 9512 Aug, Double vision H53.2 ; Occipital headache R51 ; Chronic obstructive pulmonary disease, unspecified COPD type J44.9 and Gastroesophageal reflux disease, esophagitis presence not specified K21.9 [place] [facility] [id number] [place] [address] 85521- 6667 Aug, [facility] [facility] [id number] [place] [address] 79571- 6501 Jul, Enlarged lymph node in neck R59.0 [facility] [facility] [id number] [place] [address] 52166- 6335 Jul, [facility] [facility] [id number] [place] [address] 96122- 4855 Jul, Chronic obstructive pulmonary disease, unspecified COPD type J44.9 ; Tobacco use Z72.0 ; Leukocytosis D72.829 ; Hyperlipidemia E78.5 and Neck abscess L02.11 [place] [facility] [id number] [place] [address] 97409- 6010 Jun, Shortness of breath R06.02 [facility] [id number] [place] [address] 72390- 6765 17 May, 2015 Leukocytosis D72.829 and Shortness of breath R06.02 [facility] [facility] [id number] [place] [address] 50790- 1686 09 May, 2015 Low back pain M54.5 ; Hyperlipidemia E78.5 ; Leukocytosis D72.829 ; Other osteoarthritis of spine, cervical region M47.892 and Shortness of breath R06.02 [place] [id number] [place] [address] 49796- 8587 18 Feb, 2015 Chest pain 786.50 ; Tobacco use 305.1 ; Back pain 724.5 and Hyperlipemia 272.4 [place] [facility] [id number] [place] [address] 42654- 3952 Jan, [place] [address] 27821- 2972 Jan, Chronic low back pain 724.2 and Degenerative arthritis of cervical spine 721.[address] 51464- 9916 Jan, Chronic low back pain 724.2 and Neck pain 723.[address] 83190- 3167 Dec, Chronic low back pain 724.2 and Neck pain 723.[address] 48236- 4241 Nov, Chest pain 786.50 ; Dyspnea 786.09 ; Tobacco use 305.1 and Back pain 724.5 [facility] [id number] [place] [address] 98659- 2228 Nov, [address] 19140- 6165 Nov, Disability examination V68.01 and Muscle pain 729.1 [place] [id number] [place] [address] 59635- 1366 October, History of RI (myocardial infarction) 412 ; Hyperlipidemia LDL goal < 100 272.4 ; Leukocytosis 288.60 and Glucose intolerance (pre-diabetes ) 790.29 [place] [id number] [place] [address] 45823- 3683 October, Chest pain 786.50 ; Chronic low back pain 724.2 ; History of RI (myocardial infarction) 412 and Neuropathy 355.9 [place] [id number] [place] [address] 58368- 9383 October, Chronic low back pain 724.2 ; [...] Psychotherapy, patient &/family, 30 minutes, established patient Mar 12, 2018 INSTRUCTIONS MEDICATIONS ADMINISTERED No Known Medications [...]
--- OUTSIDE RECORDS SUMMARY | 2018-04-03 15:01 | XMS REPORT ---
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 Name Role Phone DORIS LAYTON Unavailable PROBLEMS Type Condition ICD9-CM Code XNA91-IN Code Onset Dates Condition Status SNOMED Code Problem Enlarged lymph node R59.9 Active 98636283 Problem Hyperlipidemia, unspecified hyperlipidemia type E78.5 Active 65456177 Problem Tear of right rotator cuff, unspecified tear extent M75.101 Active 623877136 Problem Other chronic pain G89.29 Active 62026991 Problem Internal hemorrhoids K64.8 Active 80278485 Problem Nocturnal hypoxia G47.34 Active 080859600 Problem Panlobular emphysema J43.1 Active 6608734 Problem Hyperplastic colonic polyp, unspecified part of colon K63.5 Active 817385047 Problem Non-seasonal allergic rhinitis due to other allergic trigger J30.89 Active 85503894 Problem Mood disorder F39 Active 19283147 Problem Bipolar disorder, unspecified F31.9 Active 35479569 Problem Uncontrolled type 2 diabetes mellitus with hyperglycemia, without long -term current use of insulin E11.65 Active 202081231 Problem GERD with esophagitis K21.0 Active 965130149 Problem Other osteoarthritis of spine, cervical region M47.892 Active 230533105 Problem Hiatal hernia K44.9 Active 12145000 Problem External hemorrhoids K64.4 Active 85260098 Problem Leukocytosis D72.829 Active 989003507 Problem Hyperlipidemia E78.5 Active 53566334 Problem History of NC (myocardial infarction) I25.2 Active 339497107 Problem Neuropathy G62.9 Active 559791314 Problem Other chronic gastritis without hemorrhage K29.50 Active 9026775 Problem Low back pain M54.5 Active 703967774 Problem Tobacco use Z72.0 Active 642471541 ALLERGIES No Information ENCOUNTERS Encounter Location Date Diagnosis [facility] [address] [address] 14 Jun, 2018 [facility] [address] [address] Apr, [facility] [address] [address] Mar, Uncontrolled type 2 diabetes mellitus with hyperglycemia, without long-term current use of insulin E11.65 [facility] [address] [address] Mar, Fall (on) (from) other stairs and steps, initial encounter W10.8XXA ; Lumbar contusion, initial encounter S30.0XXA ; Elbow pain, right M25.521 and Thoracic spine pain M54.6 [place] [address] [address] Mar, Mood disorder F39 [place] [address] [address] Mar, [place] [address] [address]- [address] Mar, Leukocytosis D72.829 [place] [address] [address]- [address] Mar, [place] [address] [address] Mar, Other chronic gastritis without hemorrhage K29.50 [place] [address] [address] Mar, Uncontrolled type 2 diabetes mellitus with hyperglycemia, without long-term current use of insulin E11.65 ; Low back pain M54.5 ; Other osteoarthritis of spine, cervical region M47.892 ; Panlobular emphysema J43.1 ; Leukocytosis D72.829 and Lumbar back pain with radiculopathy affecting lower extremity M54.16 [place] [address] [address] Feb, [facility] [address] [address] Feb, [facility] [address] [place] [id number] [address] Feb, Uncontrolled type 2 diabetes mellitus with hyperglycemia, without long-term current use of insulin E11.65 [facility] [address] [address] Feb, Mood disorder F39 [facility] [address] [address] Jan, [facility] [address] [place] [id number] [place] [address] 278735- 8232 Jan, Mood disorder F39 [facility] [address] [place] [address] 29[address] Jan, [facility] [id number] [place] [address] 08125- 0370 Dec, Bipolar disorder, unspecified F31.9 [facility] [address] [place] [address] Dec, [facility] [address] [address] Dec, [facility] [address] [address] 245[address] Dec, [facility] [address] [address] Dec, Mood disorder F39 [facility] [address] [address] Nov, Bipolar disorder, unspecified F31.9 [facility] [address] [place] [id number] [address] Nov, [facility] [address] [address] Nov, Pain in left knee M25.562 ; Other chronic pain G89.29 ; Hyperlipidemia E78.5 ; Leukocytosis D72.829 ; Other osteoarthritis of spine, cervical region M47.892 ; Tobacco use Z72.0 and Uncontrolled type 2 diabetes mellitus with hyperglycemia, without long-term current use of insulin E11.65 [facility] [address] [id number] [place] [address] 84803- 7733 Nov, [facility] [address] [address]- [address] Nov, [facility] [address] [place] [address] [id number] [place] [address] 46877- 5249 October, [facility] [address] [place] [id number] [place] [address] 26467- 7106 October, Low back pain M54.5 [facility] [id number] [place] [address] 32878- 7826 Sep, [facility] [address] [id number] [place] [address] 44288- 1242 Sep, [facility] [address] [id number] [place] [address] 00574- 1789 Sep, Leukocytosis D72.829 [facility] [address] [id number] [place] [address] 03318- 9873 Sep, [facility] [address] [id number] [place] [address] 91590- 0375 Sep, [facility] [id number] [place] [address] 35445- 4533 Sep, [facility] [address] [id number] [place] [address] 72292- 8205 Aug, Low back pain M54.5 [facility] [address] [id number] [place] [address] 24607- 3793 Aug, Bipolar disorder, unspecified F31.9 [facility] [address] [place] [address] Aug, [facility] [address] [id number] [place] [address] 67150- 8994 Aug, [facility] [address] [place] [address] [id number] [place] [address] 78074- 8341 Aug, Uncontrolled type 2 diabetes mellitus with hyperglycemia, without long-term current use of insulin E11.65 ; Non-healing surgical wound, initial encounter T81.89XA ; Cellulitis of abdominal wall L03.311 ; Hyperlipidemia E78.5 ; Chronic obstructive pulmonary disease, unspecified COPD type J44.9 and Tobacco use Z72.0 [place] [address] [place] [address] [id number] [place] [address] 46681- 7238 Aug, [place] [address] [place] [id number] [place] [address] 70589- 4375 Jul, [facility] [address] [place] [id number] [place] [address] 33823- 6949 Jul, [facility] [address] [place] [id number] [place] [address] 71295- 5101 Jul, Type 2 diabetes mellitus 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, unspecified longterm insulin use status E11.40 [place] [address] [place] [id number] [place] [address] 18451- 4179 Jun, Bipolar disorder, unspecified F31.9 [facility] [address] [place] [id number] [place] [address] 84959- 5264 Jun, [facility] [address] [id number] [place] [address] 56976- 0416 Jun, Bipolar disorder, unspecified F31.9 [place] [address] [place] [address] [id number] [place] [address] 35180- 9644 Jun, Mood disorder F39 [facility] [address] [address] [id number] [place] [address] 04006- 6520 Jun, [facility] [address] [id number] [place] [address] 73278- 8099 May, Fissure in skin of foot R23.4 ; Callus of foot L84 and Type 2 diabetes mellitus 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, 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 [place] [address] [place] [address] [id number] [place] [address] 31808- 8323 May, Mood disorder F39 [place] [address] [address]- 79[address] Apr, [place] [address] [address]- [address] Apr, Cough R05 and Tobacco use Z72.0 [place] [address] [address]- 6531 Apr, Cough R05 and Tobacco use Z72.0 [place] [address] [place] [id number] [place] [address] 77607- 4521 Apr, Mood disorder F39 [place] [address] [place] [id number] [place] [address] 93564- 6680 Apr, Low back pain M54.5 [place] [address] [address]- 70[address] Apr, Uncontrolled type 2 diabetes mellitus with hyperglycemia, without long-term current use of insulin E11.65 [place] [address] [place] [id number] [place] [address] 38080- 6325 Apr, Uncontrolled type 2 diabetes mellitus with hyperglycemia, without long-term current use of insulin E11.65 [place] [address] [place] [id number] [place] [address] 88422- 2158 Mar, Bipolar disorder, unspecified F31.9 [place] [address] [place] [id number] [place] [address] 83005- 8058 Mar, [place] [address] [place] [id number] [place] [address] 26074- 4930 Mar, Bipolar disorder, unspecified F31.9 [place] [address] [address]- 0513 Mar, Mood disorder F39 [place] [address] [place] [id number] [place] [address] 65557- 1452 Feb, [place] [address] [place] [id number] [place] [address] 04682- 7231 Feb, [place] [address] 35[address]- 9386 Feb, [place] [address] [place] [id number] [place] [address] 38213- 7400 Feb, Bipolar disorder, unspecified F31.9 [place] [address] [place] [id number] [place] [address] 88279- 8771 Feb, Uncontrolled type 2 diabetes mellitus with hyperglycemia, without long-term current use of insulin E11.65 ; Encounter for immunization Z23 ; Vasovagal syncope R55 and Low back pain M54.5 [place] [address] [place] [id number] [place] [address] 38688- 5981 Jan, Bipolar disorder, unspecified F31.9 [place] [address] [place] [id number] [place] [address] 31380- 0100 Jan, [place] [address] [place] [id number] [place] [address] 94966- 7786 Jan, Fatigue, unspecified type R53.83 ; Nocturnal hypoxia G47.34 ; Leukocytosis D72.829 ; Other chronic gastritis without hemorrhage K29.50 ; Uncontrolled type 2 diabetes mellitus with hyperglycemia, without long-term current use of insulin E11.65 ; Alternating constipation and diarrhea R19.8 and Chronic obstructive pulmonary disease, unspecified COPD type J44.9 [place] [address] [place] [id number] [place] [address] 49039- 3096 Jan, [place] [address] [place] [id number] [place] [address] 33234- 0950 Jan, Leukocytosis D72.829 [place] [address] [address]- 0481 Jan, Mood disorder F39 [facility] [address] [place] [address] 57020- 5866 Dec, Bipolar disorder, unspecified F31.9 [facility] [id number] [address]- 9176 Dec, [facility] [id number] [place] [address] 56916 -6313 Dec, Acute gastritis without bleeding K29.00 [facility] [address] [place] [address] 75072- 2259 Dec, Leukocytosis D72.829 [facility] [address] [place] [id number] [place] [address] 56557- 1340 Dec, [facility] [address] [place] [id number] [place] [address] 32990- 0202 Dec, Dental examination Z01.20 [facility] [address] [place] [address] 49406- 6330 Dec, [facility] [address] [place] [id number] [place] [address] 23118- 7131 Dec, Leukocytosis D72.829 [facility] [address] [address]- 7016 Dec, Uncontrolled type 2 diabetes mellitus with hyperglycemia, without long-term current use of insulin E11.65 [facility] [address] [address]- 2274 Nov, Dental examination Z01.20 [facility] [address] [place] [address] 19813- 4816 Nov, [facility] [address] [address]- 9798 Nov, Major depressive disorder, recurrent episode, moderate F33.1 [facility] [id number] [address]- 7585 Nov, Leukocytosis D72.829 [facility] [address] [id number] [place] [address] 88410- 5808 Nov, Mood disorder F39 [facility] [address] [id number] [place] [address] 96606- 3758 Nov, Other osteoarthritis of spine, cervical region M47.892 and Uncontrolled type 2 diabetes mellitus with hyperglycemia, without long-term current use of insulin E11.65 [facility] [address] [place] [id number] [place] [address] 55265- 8998 Nov, Leukocytosis D72.829 and Elevated serum glucose R73.9 [place] [address] [place] [id number] [place] [address] 15885- 4281 October, Elevated serum glucose R73.9 [place] [address] [place] [id number] [place] [address] 15681- 8246 October, Mood disorder F39 [facility] [address] [place] [id number] [place] [address] 29251- 7797 Sep, Major depressive disorder, recurrent episode, moderate F33.1 [place] [address] [place] [address] 52053- 1038 Sep, Mood disorder F39 [facility] [address] [place] [address] 42194- 0978 Aug, [facility] [address] [place] [id number] [place] [address] 30500- 2549 Jul, Major depressive disorder, recurrent episode, moderate F33.1 [facility] [address] [place] [id number] [place] [address] 50507- 4527 Jul, Mood disorder F39 [facility] [address] [place] [address] 43115- 2516 Jul, [facility] [address] [id number] [place] [address] 24994- 0510 Jul, History of NC (myocardial infarction) I25.2 ; Hyperlipidemia E78.5 ; Prediabetes R73.09 ; Chronic obstructive pulmonary disease, unspecified COPD type J44.9 and Tobacco use Z72.0 [facility] [id number] [place] [address] 18779- 7695 Jun, [place] [address] [address] [id number] [place] [address] 18042- 5516 Jun, Mood disorder F39 [place] [address] [place] [id number] [place] [address] 77367- 5295 Jun, [place] [address] [place] [id number] [place] [address] 03922- 9494 May, Major depressive disorder, recurrent episode, moderate F33.1 and Primary insomnia F51.01 [place] [address] [place] [id number] [place] [address] 47567- 8000 May, Mood disorder F39 [place] [address] [place] [address] [id number] [place] [address] 45800- 6251 Apr, [place] [address] [place] [address] [id number] [place] [address] 90285- 5132 Apr, Mood disorder F39 [facility] [id number] [place] [address] 98856- 0879 Apr, [facility] [address] [id number] [place] [address] 71161- 1436 Apr, [facility] [address] [place] [address] [id number] [place] [address] 54502- 5290 Apr, Chronic obstructive pulmonary disease, unspecified COPD type J44.9 and Non-seasonal allergic rhinitis due to other allergic trigger J30.89 [facility] [address] [id number] [place] [address] 77557- 6634 11 Apr, 2016 Mood disorder F39 [place] [address] [place] [id number] [place] [address] 90708- 5416 Apr, Major depressive disorder, recurrent episode, moderate F33.1 and PTSD (post-traumatic stress disorder) F43.10 [place] [address] [place] [id number] [place] [address] 71637- 3118 Apr, [place] [address] [place] [id number] [place] [address] 31270- 5813 Apr, [place] [address] 83199- 5958 Apr, Chest pain, unspecified type R07.9 ; Chronic obstructive pulmonary disease, unspecified COPD type J44.9 ; Hyperlipidemia, unspecified hyperlipidemia type E78.5 and Tobacco use Z72.0 [place] [address] 98194- 2496 Mar, Mood disorder F39 [place] [address] [place] [id number] [place] [address] 50357- 6660 Mar, Mood disorder F39 [place] [address] 21913- 1107 Mar, Other osteoarthritis of spine, cervical region M47.892 [place] [address] 27923- 6813 Mar, Tear of right rotator cuff, unspecified tear extent M75.101 [place] [address] [id number] [place] [address] 79295- 2395 Mar, [place] [address] [place] [id number] [place] [address] 14423- 5631 Mar, Bipolar II disorder F31.81 [place] [address] [place] [id number] [place] [address] 49175- 9718 Mar, [place] [address] 87346- 5563 Feb, Impingement syndrome of right shoulder M75.41 ; Tear of right rotator cuff, unspecified tear extent M75.101 and Loose body in right elbow M24.021 [place] [address] [address]- 3452 Jan, [place] [address] [place] [id number] [place] [address] 85624- 1881 Jan, [facility] [address] [id number] [place] [address] 15306- 1957 Jan, Prediabetes R73.09 ; Other chronic pain G89.29 and Pain in right shoulder M25.511 [place] [address] [place] [id number] [place] [address] 01507- 1696 Dec, [place] [address] [place] [id number] [place] [address] 93459- 3350 Dec, Heartburn R12 and Chest discomfort R07.89 [place] [address] [place] [id number] [place] [address] 53631- 8153 Dec, Impingement syndrome of right shoulder M75.41 and 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, 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 [place] [address] [place] [place] [id number] [place] [address] 65464- 5612 Nov, [place] [address] [place] [id number] [place] [address] 48834- 6218 Nov, Leukocytosis D72.829 [place] [address] [place] [id number] [place] [address] 46138- 8572 Nov, [place] [address] [place] [id number] [place] [address] 69832- 5887 Nov, Enlarged lymph node R59.9 ; Chronic obstructive pulmonary disease, unspecified COPD type J44.9 ; Low back pain M54.5 ; Neuropathy G62.9 and Closed nondisplaced fracture of sternal end of right clavicle, sequela S42.017S [place] [id number] [place] [address] 56462- 1433 October, [place] [address] [place] [id number] [place] [address] 09291- 3475 October, [place] [address] [place] [id number] [place] [address] 81836- 5129 Sep, [place] [address] [id number] [place] [address] 25041- 3844 Aug, Double vision H53.2 ; Occipital headache R51 ; Chronic obstructive pulmonary disease, unspecified COPD type J44.9 and Gastroesophageal reflux disease, esophagitis presence not specified K21.9 [place] [address] [place] [id number] [place] [address] 75411- 2741 Aug, [place] [address] [id number] [place] [address] 72048- 0238 Jul, Enlarged lymph node in neck R59.0 [place] [address] [place] [id number] [place] [address] 19989- 8518 Jul, [place] [address] [place] [id number] [place] [address] 25854- 1917 Jul, Chronic obstructive pulmonary disease, unspecified COPD type J44.9 ; Tobacco use Z72.0 ; Leukocytosis D72.829 ; Hyperlipidemia E78.5 and Neck abscess L02.11 [place] [address] [id number] [place] [address] 01732- 6887 Jun, Shortness of breath R06.02 [place] [address] [place] [id number] [place] [address] 85046- 6996 17 May, 2015 Leukocytosis D72.829 and Shortness of breath R06.02 [place] [id number] [place] [address] 81996- 5026 09 May, 2015 Low back pain M54.5 ; Hyperlipidemia E78.5 ; Leukocytosis D72.829 ; Other osteoarthritis of spine, cervical region M47.892 and Shortness of breath R06.02 [place] [id number] [place] [address] 14582- 4141 18 Feb, 2015 Chest pain 786.50 ; Tobacco use 305.1 ; Back pain 724.5 and Hyperlipemia 272.4 [place] [id number] [place] [address] 62942- 6255 Jan, [place] [address] 37919- 7601 Jan, Chronic low back pain 724.2 and Degenerative arthritis of cervical spine 721.[address] 78197- 0340 Jan, Chronic low back pain 724.2 and Neck pain 723.[address] 63977- 4383 Dec, Chronic low back pain 724.2 and Neck pain 723.[address] 96718- 1024 Nov, Chest pain 786.50 ; Dyspnea 786.09 ; Tobacco use 305.1 and Back pain 724.5 [place] [address] [id number] [place] [address] 89295- 2861 Nov, [address] 62619- 7613 Nov, Disability examination V68.01 and Muscle pain 729.1 [place] [id number] [place] [address] 85210- 0182 October, History of NC (myocardial infarction) 412 ; Hyperlipidemia LDL goal < 100 272.4 ; Leukocytosis 288.60 and Glucose intolerance (pre-diabetes ) 790.29 [place] [id number] [place] [address] 91855- 6850 October, Chest pain 786.50 ; Chronic low back pain 724.2 ; History of NC (myocardial infarction) 412 and Neuropathy 355.9 [place] [id number] [place] [address] 73598- 2982 October, Chronic low back pain 724.2 ; Chest pain 786.50 ; History of NC (myocardial infarction) 412 and Neuropathy 355.9 IMMUNIZATIONS No Known Immunizations SOCIAL HISTORY Never Assessed REASON FOR VISIT med refill PLAN OF CARE VITAL SIGNS MEDICATIONS Medication Instructions Dosage Frequency Start Date End Date Duration Status Carafate 1 GM Orally 4 times a day 1 tablet on an empty stomach 6h Active RESULTS No Results PROCEDURES No Known [...]
--- OUTSIDE RECORDS SUMMARY | 2018-04-03 15:01 | XMS REPORT ---
Author Author KINJAL DORIS [facility] Address [facility] [place] [address] Care Team Providers Care Line Repairer Tower Name Role Phone DORIS LAYTON Unavailable PROBLEMS Type Condition ICD9-CM Code FOF39-QZ Code Onset Dates Condition Status SNOMED Code Problem Enlarged lymph node R59.9 Active 29449787 Problem Hyperlipidemia, unspecified hyperlipidemia type E78.5 Active 08382174 Problem Tear of right rotator cuff, unspecified tear extent M75.101 Active 330711820 Problem Other chronic pain G89.29 Active 92019751 Problem Internal hemorrhoids K64.8 Active 43859740 Problem Nocturnal hypoxia G47.34 Active 328358874 Problem Panlobular emphysema J43.1 Active 2550121 Problem Hyperplastic colonic polyp, unspecified part of colon K63.5 Active 265879648 Problem Non-seasonal allergic rhinitis due to other allergic trigger J30.89 Active 19471256 Problem Mood disorder F39 Active 41000376 Problem Bipolar disorder, unspecified F31.9 Active 68570082 Problem Uncontrolled type 2 diabetes mellitus with hyperglycemia, without long -term current use of insulin E11.65 Active 186918297 Problem GERD with esophagitis K21.0 Active 523112420 Problem Other osteoarthritis of spine, cervical region M47.892 Active 287656705 Problem Hiatal hernia K44.9 Active 95440603 Problem External hemorrhoids K64.4 Active 87233099 Problem Leukocytosis D72.829 Active 765829149 Problem Hyperlipidemia E78.5 Active 06344463 Problem History of DC (myocardial infarction) I25.2 Active 670247407 Problem Neuropathy G62.9 Active 929918156 Problem Other chronic gastritis without hemorrhage K29.50 Active 2136524 Problem Low back pain M54.5 Active 534305932 Problem Tobacco use Z72.0 Active 205498596 ALLERGIES No Information ENCOUNTERS Encounter Location Date Diagnosis [facility] [address] [address] 14 Jun, 2018 [facility] [address] [address] Apr, [facility] [address] [address] Mar, Uncontrolled type 2 diabetes mellitus with hyperglycemia, without long-term current use of insulin E11.65 [facility] [address] [address] Mar, Fall (on) (from) other stairs and steps, initial encounter W10.8XXA ; Lumbar contusion, initial encounter S30.0XXA ; Elbow pain, right M25.521 and Thoracic spine pain M54.6 [place] [address] [address] Mar, Mood disorder F39 [place] [address] [address] Mar, [place] [address] [address]- [address] Mar, Leukocytosis D72.829 [place] [address] [address]- 70[address] Mar, [place] [address] [address]- 1491 Mar, Other chronic gastritis without hemorrhage K29.50 [place] [address] [address]- [address] Mar, Uncontrolled type 2 diabetes mellitus with hyperglycemia, without long-term current use of insulin E11.65 ; Low back pain M54.5 ; Other osteoarthritis of spine, cervical region M47.892 ; Panlobular emphysema J43.1 ; Leukocytosis D72.829 and Lumbar back pain with radiculopathy affecting lower extremity M54.16 [place] [address] [address] Feb, [facility] [address], [place] [address] Feb, [facility] [id number] [address] [address] Feb, Uncontrolled type 2 diabetes mellitus with hyperglycemia, without long-term current use of insulin E11.65 [facility] [address] [address] Feb, Mood disorder F39 [facility] [address] [address] Jan, [facility] [id number] [place] [address] 477469- 7754 Jan, Mood disorder F39 [facility] [address] [place] [address] 7[address] Jan, [facility] [id number] [place] [address] 95138- 2426 Dec, Bipolar disorder, unspecified F31.9 [facility] [address] [place] [address] Dec, [facility] [address] [address] Dec, [facility] [address] [address] 98[address] Dec, [facility] [address], [place] [address] 4[address] Dec, Mood disorder F39 [facility] [address] [address] Nov, Bipolar disorder, unspecified F31.9 [facility] [id number] [address] Nov, [facility] [address] [address] Nov, Pain in left knee M25.562 ; Other chronic pain G89.29 ; Hyperlipidemia E78.5 ; Leukocytosis D72.829 ; Other osteoarthritis of spine, cervical region M47.892 ; Tobacco use Z72.0 and Uncontrolled type 2 diabetes mellitus with hyperglycemia, without long-term current use of insulin E11.65 [facility] [id number] [place] [address] 49836- 7018 Nov, [facility] [address] [address]- [address] Nov, [facility] [id number] [place] [address] 54707- 1030 October, [facility] [id number] [place] [address] 78138- 8515 October, Low back pain M54.5 [facility] [id number] [place] [address] 90344- 5447 Sep, [facility] [id number] [place] [address] 53413- 5689 Sep, [facility] [id number] [place] [address] 31448- 6158 Sep, Leukocytosis D72.829 [facility] [id number] [place] [address] 35577- 0523 Sep, [facility] [id number] [place] [address] 91241- 9071 Sep, [facility] [id number] [place] [address] 54365- 6150 Sep, [facility] [id number] [place] [address] 94139- 8744 Aug, Low back pain M54.5 [facility] [id number] [place] [address] 90030- 4730 Aug, Bipolar disorder, unspecified F31.9 [facility] [address] [place] [address] 9[address] Aug, [facility] [id number] [place] [address] 22559- 3794 Aug, [facility] [id number] [place] [address] 75039- 5789 Aug, Uncontrolled type 2 diabetes mellitus with hyperglycemia, without long-term current use of insulin E11.65 ; Non-healing surgical wound, initial encounter T81.89XA ; Cellulitis of abdominal wall L03.311 ; Hyperlipidemia E78.5 ; Chronic obstructive pulmonary disease, unspecified COPD type J44.9 and Tobacco use Z72.0 [place] [address] [id number] [place] [address] 92529- 7308 Aug, [place] [address] [address] [id number] [place] [address] 04725- 0675 Jul, [facility] [address] [id number] [place] [address] 33548- 8736 Jul, [facility] [id number] [place] [address] 98248- 7571 Jul, Type 2 diabetes mellitus 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, unspecified residential insulin use status E11.40 [place] [address] [address] [id number] [place] [address] 45219- 0885 Jun, Bipolar disorder, unspecified F31.9 [facility] [address] [id number] [place] [address] 98087- 5972 Jun, [facility] [address] [id number] [place] [address] 24700- 5613 Jun, Bipolar disorder, unspecified F31.9 [place] [address] [place] [id number] [place] [address] 16216- 4491 Jun, Mood disorder F39 [facility] [address] [place] [id number] [place] [address] 55685- 4928 Jun, [facility] [address] [address] [id number] [place] [address] 58641- 7541 May, Fissure in skin of foot R23.4 ; Callus of foot L84 and 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 2 diabetes mellitus 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, 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 [place] [address] [address] [id number] [place] [address] 32035- 2089 May, Mood disorder F39 [place] [address] [address]- 8285 Apr, [place] [address] [address]- 4299 Apr, Cough R05 and Tobacco use Z72.0 [place] [address] [address]- 3553 Apr, Cough R05 and Tobacco use Z72.0 [place] [address] [id number] [place] [address] 51014- 5690 Apr, Mood disorder F39 [place] [address] [address] [id number] [place] [address] 99357- 1637 Apr, Low back pain M54.5 [place] [address] 8[address]- 2637 Apr, Uncontrolled type 2 diabetes mellitus with hyperglycemia, without long-term current use of insulin E11.65 [place] [address] [address] [id number] [place] [address] 25977- 3272 Apr, Uncontrolled type 2 diabetes mellitus with hyperglycemia, without long-term current use of insulin E11.65 [place] [address] [place] [id number] [place] [address] 40425- 5742 Mar, Bipolar disorder, unspecified F31.9 [place] [address] [id number] [place] [address] 20916- 7057 Mar, [place] [address] [place] [id number] [place] [address] 76932- 9800 Mar, Bipolar disorder, unspecified F31.9 [place] [address], [place] [address]- 5600 Mar, Mood disorder F39 [place] [address] [place] [id number] [place] [address] 24597- 4971 Feb, [place] [address] [place] [id number] [place] [address] 25251- 9793 Feb, [place] [address] 99[address]- 6368 Feb, [place] [address] [place] [id number] [place] [address] 36903- 5804 Feb, Bipolar disorder, unspecified F31.9 [place] [address] [place] [id number] [place] [address] 75298- 9301 Feb, Uncontrolled type 2 diabetes mellitus with hyperglycemia, without long-term current use of insulin E11.65 ; Encounter for immunization Z23 ; Vasovagal syncope R55 and Low back pain M54.5 [place] [address] [place] [id number] [place] [address] 27681- 9708 Jan, Bipolar disorder, unspecified F31.9 [place] [address] [place] [id number] [place] [address] 44155- 6999 Jan, [place] [address] [place] [id number] [place] [address] 40696- 3975 Jan, Fatigue, unspecified type R53.83 ; Nocturnal hypoxia G47.34 ; Leukocytosis D72.829 ; Other chronic gastritis without hemorrhage K29.50 ; Uncontrolled type 2 diabetes mellitus with hyperglycemia, without long-term current use of insulin E11.65 ; Alternating constipation and diarrhea R19.8 and Chronic obstructive pulmonary disease, unspecified COPD type J44.9 [place] [address] [place] [id number] [place] [address] 25858- 8886 Jan, [place] [address] [place] [id number] [place] [address] 60979- 8758 Jan, Leukocytosis D72.829 [place] [address], [place] [address]- 5817 Jan, Mood disorder F39 [facility] [id number] [place] [address] 55882- 1120 Dec, Bipolar disorder, unspecified F31.9 [facility] [address], [place] [address]- 7971 Dec, [facility] [id number] [place] [address] 09351 -8708 Dec, Acute gastritis without bleeding K29.00 [facility] [id number] [place] [address] 28376- 2870 Dec, Leukocytosis D72.829 [facility] [address] [id number] [place] [address] 23727- 6016 Dec, [facility] [address] [place] [id number] [place] [address] 12313- 4421 Dec, Dental examination Z01.20 [facility] [id number] [place] [address] 90101- 7811 Dec, [facility] [address] [place] [id number] [place] [address] 47026- 1187 Dec, Leukocytosis D72.829 [facility] [address], [place] [address]- 0312 Dec, Uncontrolled type 2 diabetes mellitus with hyperglycemia, without long-term current use of insulin E11.65 [facility] [address], [place] [address]- 6567 Nov, Dental examination Z01.20 [facility] [id number] [place] [address] 74984- 5897 Nov, [facility] [address], [place] [address]- 9056 Nov, Major depressive disorder, recurrent episode, moderate F33.1 [facility] [id number] [address]- 9417 Nov, Leukocytosis D72.829 [facility] [id number] [place] [address] 29501- 5353 Nov, Mood disorder F39 [facility] [id number] [place] [address] 70031- 1609 Nov, Other osteoarthritis of spine, cervical region M47.892 and Uncontrolled type 2 diabetes mellitus with hyperglycemia, without long-term current use of insulin E11.65 [facility] [address] [place] [id number] [place] [address] 59308- 7165 Nov, Leukocytosis D72.829 and Elevated serum glucose R73.9 [place] [address] [place] [id number] [place] [address] 28085- 8216 October, Elevated serum glucose R73.9 [place] [address] [place] [id number] [place] [address] 31066- 6467 October, Mood disorder F39 [facility] [address] [id number] [place] [address] 95845- 1282 Sep, Major depressive disorder, recurrent episode, moderate F33.1 [place] [id number] [place] [address] 57039- 3904 Sep, Mood disorder F39 [facility] [id number] [place] [address] 22755- 6120 Aug, [facility] [address] [id number] [place] [address] 75737- 2540 Jul, Major depressive disorder, recurrent episode, moderate F33.1 [facility] [id number] [place] [address] 39435- 9931 Jul, Mood disorder F39 [facility] [id number] [place] [address] 60544- 3576 Jul, [facility] [id number] [place] [address] 08208- 9323 Jul, History of DC (myocardial infarction) I25.2 ; Hyperlipidemia E78.5 ; Prediabetes R73.09 ; Chronic obstructive pulmonary disease, unspecified COPD type J44.9 and Tobacco use Z72.0 [facility] [id number] [place] [address] 15399- 8535 Jun, [place] [address] [id number] [place] [address] 21812- 5299 Jun, Mood disorder F39 [place] [id number] [place] [address] 98761- 6187 Jun, [place] [address] [id number] [place] [address] 35631- 3132 May, Major depressive disorder, recurrent episode, moderate F33.1 and Primary insomnia F51.01 [place] [address] [place] [id number] [place] [address] 48574- 6508 May, Mood disorder F39 [place] [id number] [place] [address] 89782- 3818 Apr, [place] [id number] [place] [address] 68996- 8192 Apr, Mood disorder F39 [facility] [id number] [place] [address] 47072- 1479 Apr, [facility] [id number] [place] [address] 12933- 8140 Apr, [facility] [id number] [place] [address] 08189- 9212 Apr, Chronic obstructive pulmonary disease, unspecified COPD type J44.9 and Non-seasonal allergic rhinitis due to other allergic trigger J30.89 [facility] [id number] [place] [address] 40370- 6235 11 Apr, 2016 Mood disorder F39 [place] [id number] [place] [address] 92202- 9764 Apr, Major depressive disorder, recurrent episode, moderate F33.1 and PTSD (post-traumatic stress disorder) F43.10 [place] [id number] [place] [address] 22278- 9649 Apr, [place] [address] [place] [id number] [place] [address] 87281- 6656 Apr, [place] [address] 22776- 4556 Apr, Chest pain, unspecified type R07.9 ; Chronic obstructive pulmonary disease, unspecified COPD type J44.9 ; Hyperlipidemia, unspecified hyperlipidemia type E78.5 and Tobacco use Z72.0 [place] [address] 37394- 3231 Mar, Mood disorder F39 [place] [address] [place] [id number] [place] [address] 51278- 6442 Mar, Mood disorder F39 [place] [address] 26004- 4372 Mar, Other osteoarthritis of spine, cervical region M47.892 [place] [address] 16228- 2684 Mar, Tear of right rotator cuff, unspecified tear extent M75.101 [place] [id number] [place] [address] 23839- 4286 Mar, [place] [address] [place] [id number] [place] [address] 89510- 5325 Mar, Bipolar II disorder F31.81 [place] [address] [address] [id number] [place] [address] 58823- 3708 Mar, [place] [address] 97652- 1046 Feb, Impingement syndrome of right shoulder M75.41 ; Tear of right rotator cuff, unspecified tear extent M75.101 and Loose body in right elbow M24.021 [place] [address], [place] [address]- 7441 Jan, [place] [id number] [place] [address] 25307- 2730 Jan, [facility] [id number] [place] [address] 13773- 6024 Jan, Prediabetes R73.09 ; Other chronic pain G89.29 and Pain in right shoulder M25.511 [place] [id number] [place] [address] 11389- 2999 Dec, [place] [id number] [place] [address] 84462- 4892 Dec, Heartburn R12 and Chest discomfort R07.89 [place] [id number] [place] [address] 36614- 0367 Dec, Impingement syndrome of right shoulder M75.41 and 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, 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 [place] [id number] [place] [address] 55861- 1735 Nov, [place] [id number] [place] [address] 05474- 1411 Nov, Leukocytosis D72.829 [place] [address] [address] [id number] [place] [address] 90131- 2832 Nov, [place] [id number] [place] [address] 43524- 6594 Nov, Enlarged lymph node R59.9 ; Chronic obstructive pulmonary disease, unspecified COPD type J44.9 ; Low back pain M54.5 ; Neuropathy G62.9 and Closed nondisplaced fracture of sternal end of right clavicle, sequela S42.017S [place] [id number] [place] [address] 75343- 4986 October, [place] [id number] [place] [address] 54286- 6021 October, [place] [id number] [place] [address] 28763- 4700 Sep, [place] [id number] [place] [address] 96838- 9586 Aug, Double vision H53.2 ; Occipital headache R51 ; Chronic obstructive pulmonary disease, unspecified COPD type J44.9 and Gastroesophageal reflux disease, esophagitis presence not specified K21.9 [place] [id number] [place] [address] 46764- 7628 Aug, [place] [id number] [place] [address] 42271- 1984 Jul, Enlarged lymph node in neck R59.0 [place] [id number] [place] [address] 38097- 2586 Jul, [place] [id number] [place] [address] 60663- 4800 Jul, Chronic obstructive pulmonary disease, unspecified COPD type J44.9 ; Tobacco use Z72.0 ; Leukocytosis D72.829 ; Hyperlipidemia E78.5 and Neck abscess L02.11 [place] [id number] [place] [address] 45022- 9046 Jun, Shortness of breath R06.02 [place] [id number] [place] [address] 00934- 4640 17 May, 2015 Leukocytosis D72.829 and Shortness of breath R06.02 [place] [id number] [place] [address] 68478- 2160 09 May, 2015 Low back pain M54.5 ; Hyperlipidemia E78.5 ; Leukocytosis D72.829 ; Other osteoarthritis of spine, cervical region M47.892 and Shortness of breath R06.02 [place] [id number] [place] [address] 69509- 5499 18 Feb, 2015 Chest pain 786.50 ; Tobacco use 305.1 ; Back pain 724.5 and Hyperlipemia 272.4 [place] [id number] [place] [address] 63116- 1724 Jan, [place] [address] 13072- 0119 Jan, Chronic low back pain 724.2 and Degenerative arthritis of cervical spine 721.[address] 45301- 5688 Jan, Chronic low back pain 724.2 and Neck pain 723.[address] 19497- 0809 Dec, Chronic low back pain 724.2 and Neck pain 723.[address] 20253- 2429 Nov, Chest pain 786.50 ; Dyspnea 786.09 ; Tobacco use 305.1 and Back pain 724.5 [place] [id number] [place] [address] 30979- 4751 Nov, [address] 01750- 5473 Nov, Disability examination V68.01 and Muscle pain 729.1 [place] [id number] [place] [address] 75107- 5778 October, History of DC (myocardial infarction) 412 ; Hyperlipidemia LDL goal < 100 272.4 ; Leukocytosis 288.60 and Glucose intolerance (pre-diabetes ) 790.29 [place] [id number] [place] [address] 44983- 1740 October, Chest pain 786.50 ; Chronic low back pain 724.2 ; History of DC (myocardial infarction) 412 and Neuropathy 355.9 [place] [id number] [place] [address] 44673- 3861 October, Chronic low back pain 724.2 ; Chest pain 786.50 ; History of DC (myocardial infarction) 412 and Neuropathy 355.9 IMMUNIZATIONS No Known Immunizations SOCIAL HISTORY Never Assessed REASON FOR VISIT Refill request PLAN OF CARE VITAL SIGNS MEDICATIONS Medication Instructions Dosage Frequency Start Date End Date Duration Status BD Pen Needle Short U/F 31G X 8 MM as directed once per day use with Victoza Mar, Active RESULTS No Results PROCEDURES No Known [...]
--- OUTSIDE RECORDS SUMMARY | 2018-04-03 15:02 | XMS REPORT ---
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 Name Role Phone DORIS LAYTON Unavailable PROBLEMS Type Condition ICD9-CM Code ZEI51-TL Code Onset Dates Condition Status SNOMED Code Problem Enlarged lymph node R59.9 Active 49598865 Problem Hyperlipidemia, unspecified hyperlipidemia type E78.5 Active 07063857 Problem Tear of right rotator cuff, unspecified tear extent M75.101 Active 330262927 Problem Other chronic pain G89.29 Active 84375664 Problem Internal hemorrhoids K64.8 Active 44533840 Problem Nocturnal hypoxia G47.34 Active 847171695 Problem Panlobular emphysema J43.1 Active 4171281 Problem Hyperplastic colonic polyp, unspecified part of colon K63.5 Active 362568584 Problem Non-seasonal allergic rhinitis due to other allergic trigger J30.89 Active 44081334 Problem Mood disorder F39 Active 15218791 Problem Bipolar disorder, unspecified F31.9 Active 93155409 Problem Uncontrolled type 2 diabetes mellitus with hyperglycemia, without long -term current use of insulin E11.65 Active 639675715 Problem GERD with esophagitis K21.0 Active 682103139 Problem Other osteoarthritis of spine, cervical region M47.892 Active 986720650 Problem Hiatal hernia K44.9 Active 41952809 Problem External hemorrhoids K64.4 Active 30340988 Problem Leukocytosis D72.829 Active 981440834 Problem Hyperlipidemia E78.5 Active 36986589 Problem History of [place] (myocardial infarction) I25.2 Active 986182392 Problem Neuropathy G62.9 Active 139986711 Problem Other chronic gastritis without hemorrhage K29.50 Active 0544000 Problem Low back pain M54.5 Active 527772659 Problem Tobacco use Z72.0 Active 464026483 ALLERGIES No Information ENCOUNTERS Encounter Location Date Diagnosis [facility], [place] [id number] [place] [address] 77847- 2950 Jun, [facility], [place] [id number] [place] [address] 80565- 3861 Mar, [facility], [place] [id number] [place] [address] 12230- 4119 Mar, Leukocytosis D72.829 [facility], [place] [id number] [place] [address] 87600- 4708 Mar, [facility], [place] [id number] [place] [address] 64096- 3648 Mar, Other chronic gastritis without hemorrhage K29.50 [facility], [place] [id number] [place] [address] 81301- 6807 Mar, Uncontrolled type 2 diabetes mellitus with hyperglycemia, without long-term current use of insulin E11.65 ; Low back pain M54.5 ; Other osteoarthritis of spine, cervical region M47.892 ; Panlobular emphysema J43.1 ; Leukocytosis D72.829 and Lumbar back pain with radiculopathy affecting lower extremity M54.16 [facility], [place] [id number] [place] [address] 79155- 6131 Feb, [facility], [place] [id number] [place] [address] 55112- 2884 Feb, [facility], [place] [id number] [place] [address] 83168- 7833 Feb, Uncontrolled type 2 diabetes mellitus with hyperglycemia, without long-term current use of insulin E11.65 [facility], [place] [id number] [place] [address] 94399- 9913 Feb, Mood disorder F39 [facility], [place] [id number] [place] [address] 78453- 1642 Jan, [facility], [place] [id number] [place] [address] 05682- 9418 Jan, Mood disorder F39 [facility], [place] [address] [place] [address]- 7477 Jan, [facility], [place] [address] [address]- 0156 Dec, Bipolar disorder, unspecified F31.9 [facility], [place] [address] [address]- 2480 Dec, [facility], [place] [id number] [place] [address] 13905- 7837 Dec, [facility], [place] [address] [address]- 8047 Dec, [facility], [place] [id number] [place] [address] 07940- 2313 Dec, Mood disorder F39 [facility], [place] [address] [address]- 8147 Nov, Bipolar disorder, unspecified F31.9 [facility], [place] [address] [address]- 8932 Nov, [facility], [place] [address] [address]- 6232 Nov, Pain in left knee M25.562 ; Other chronic pain G89.29 ; Hyperlipidemia E78.5 ; Leukocytosis D72.829 ; Other osteoarthritis of spine, cervical region M47.892 ; Tobacco use Z72.0 and Uncontrolled type 2 diabetes mellitus with hyperglycemia, without long-term current use of insulin E11.65 [facility], [place] [address] [address]- 0793 Nov, [facility], [place] [address] [address]- 5794 Nov, [facility], [place] [address] [address]- 8869 October, [facility], [place] [address] [address]- 3877 October, Low back pain M54.5 [facility], [place] [address] [address]- 7236 Sep, [facility], [place] [id number] [place] [address] 45612- 2183 Sep, [facility], [place] [id number] [place] [address] 77132- 1233 Sep, Leukocytosis D72.829 [facility], [place] [id number] [place] [address] 57449- 5677 Sep, [facility], [place] [id number] [place] [address] 68114- 6667 Sep, [facility], [place] [id number] [place] [address] 16268- 5315 Sep, [facility], [place] [id number] [place] [address] 61538- 5762 Aug, Low back pain M54.5 [facility], [place] [id number] [place] [address] 15644- 5260 Aug, Bipolar disorder, unspecified F31.9 [facility], [place] [id number] [place] [address] 54225- 0610 Aug, [facility], [place] [address] [address]- 3888 Aug, [facility], [place] [id number] [place] [address] 09103- 8157 Aug, Uncontrolled type 2 diabetes mellitus with hyperglycemia, without long-term current use of insulin E11.65 ; Non-healing surgical wound, initial encounter T81.89XA ; Cellulitis of abdominal wall L03.311 ; Hyperlipidemia E78.5 ; Chronic obstructive pulmonary disease, unspecified COPD type J44.9 and Tobacco use Z72.0 [facility], [place] [address] [address]- 6626 Aug, [facility], [place] [id number] [place] [address] 82836- 9942 Jul, [facility], [place] [address] [address]- 2973 Jul, [facility], [place] [id number] [place] [address] 815837- 7756 Jul, Type 2 diabetes mellitus 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, unspecified 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 insulin use status E11.40 [facility], [place] [address] [address]- 5926 Jun, Bipolar disorder, unspecified F31.9 [facility], [place] [address] [address]- 1130 Jun, [facility], [place] [id number] [place] [address] 729203- 3503 Jun, Bipolar disorder, unspecified F31.9 [facility], [place] [id number] [place] [address] 55140- 7195 Jun, Mood disorder F39 [facility], [place] [address] [address]- 7449 Jun, [facility], [place] [id number] [place] [address] 45052- 5869 May, Fissure in skin of foot R23.4 ; Callus of foot L84 and Type 2 diabetes mellitus 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, unspecified 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.40 [facility], [place] [address] [address]- 2069 May, Mood disorder F39 [facility], [place] [address] [address]- 2042 Apr, [facility], [place] [id number] [place] [address] 18597- 2065 Apr, Cough R05 and Tobacco use Z72.0 [facility], [place] [address] [address]- 2242 Apr, Cough R05 and Tobacco use Z72.0 [facility], [place] [address] [address]- 4234 Apr, Mood disorder F39 [facility], [place] [id number] [place] [address] 23613- 7366 Apr, Low back pain M54.5 [facility], [place] [address] [address]- 9996 Apr, Uncontrolled type 2 diabetes mellitus with hyperglycemia, without long-term current use of insulin E11.65 [facility], [place] [address] [address]- 9115 Apr, Uncontrolled type 2 diabetes mellitus with hyperglycemia, without long-term current use of insulin E11.65 [facility], [place] [address] [address]- 1318 Mar, Bipolar disorder, unspecified F31.9 [facility], [place] [id number] [place] [address] 17751- 2348 Mar, [facility], [place] [id number] [place] [address] 29874- 5549 Mar, Bipolar disorder, unspecified F31.9 [facility], [place] [id number] [place] [address] 01492- 4567 Mar, Mood disorder F39 [facility], [place] [address] [address]- 9935 Feb, [facility], [place] [address] [address]- 1788 Feb, [facility], [place] [address] [address]- 4566 Feb, [facility], [place] [id number] [place] [address] 35607- 6797 Feb, Bipolar disorder, unspecified F31.9 [facility], [place] [address] [address]- 4862 Feb, Uncontrolled type 2 diabetes mellitus with hyperglycemia, without long-term current use of insulin E11.65 ; Encounter for immunization Z23 ; Vasovagal syncope R55 and Low back pain M54.5 [place] [address] 45902- 4302 Jan, Bipolar disorder, unspecified F31.9 [place] [address] 42319- 7102 Jan, [place] [address] 02688- 9513 Jan, Fatigue, unspecified type R53.83 ; Nocturnal hypoxia G47.34 ; Leukocytosis D72.829 ; Other chronic gastritis without hemorrhage K29.50 ; Uncontrolled type 2 diabetes mellitus with hyperglycemia, without long-term current use of insulin E11.65 ; Alternating constipation and diarrhea R19.8 and Chronic obstructive pulmonary disease, unspecified COPD type J44.9 [place] [address] 89935- 1470 Jan, [place] [address] 55101- 1860 Jan, Leukocytosis D72.829 [place] [address] 73978- 1683 Jan, Mood disorder F39 [place] [address] 77922- 8827 Dec, Bipolar disorder, unspecified F31.9 [place] [address] 31100- 2109 Dec, [facility] [address] 44202 -7221 Dec, Acute gastritis without bleeding K29.00 [place] [address] 51188- 0235 Dec, Leukocytosis D72.829 [place] [address] 75229- 6196 Dec, [place] [id number] [place] [address] 98773- 0682 Dec, Dental examination Z01.20 [place] [id number] [place] [address] 12474- 4176 Dec, [place] [id number] [place] [address] 06442- 3018 Dec, Leukocytosis D72.829 [place] [address] 26507- 2943 Dec, Uncontrolled type 2 diabetes mellitus with hyperglycemia, without long-term current use of insulin E11.65 [place] [id number] [place] [address] 28524- 3062 Nov, Dental examination Z01.20 [place] [id number] [place] [address] 46189- 1453 Nov, [place] [id number] [place] [address] 51868- 3359 Nov, Major depressive disorder, recurrent episode, moderate F33.1 [place] [id number] [place] [address] 29470- 7092 Nov, Leukocytosis D72.829 [place] [id number] [place] [address] 29834- 8790 Nov, Mood disorder F39 [place] [id number] [place] [address] 52073- 6838 Nov, Other osteoarthritis of spine, cervical region M47.892 and Uncontrolled type 2 diabetes mellitus with hyperglycemia, without long-term current use of insulin E11.65 [place] [id number] [place] [address] 71472- 9790 Nov, Leukocytosis D72.829 and Elevated serum glucose R73.9 [place] [id number] [place] [address] 77640- 0289 October, Elevated serum glucose R73.9 [facility], [place] [address] [address]- 8472 October, Mood disorder F39 [facility], [place] [address] [address]- 0174 Sep, Major depressive disorder, recurrent episode, moderate F33.1 [facility], [place] [address] [address]- 6917 Sep, Mood disorder F39 [facility], [place] [address] [address]- 7605 Aug, [facility], [place] [id number] [place] [address] 45844- 3456 Jul, Major depressive disorder, recurrent episode, moderate F33.1 [facility], [place] [address] [address]- 5328 Jul, Mood disorder F39 [facility], [place] [address] [address]- 1868 Jul, [facility], [place] [address] [address]- 0331 Jul, History of [place] (myocardial infarction) I25.2 ; Hyperlipidemia E78.5 ; Prediabetes R73.09 ; Chronic obstructive pulmonary disease, unspecified COPD type J44.9 and Tobacco use Z72.0 [facility], [place] [address] [address]- 4668 Jun, [facility], [place] [id number] [address]- 3860 Jun, Mood disorder F39 [facility], [place] [address] [address]- 1005 Jun, [facility], [place] [id number] [address]- 1473 May, Major depressive disorder, recurrent episode, moderate F33.1 and Primary insomnia F51.01 [facility], [place] [address] [address]- 4134 15 May, 2016 Mood disorder F39 [facility], [place] [id number] [place] [address] 03495- 3102 Apr, [facility], [place] [id number] [place] [address] 68142- 4592 Apr, Mood disorder F39 [facility], [place] [id number] [place] [address] 93995- 7524 Apr, [facility], [place] [id number] [place] [address] 74042- 0876 Apr, [facility], [place] [id number] [place] [address] 31175- 7546 Apr, Chronic obstructive pulmonary disease, unspecified COPD type J44.9 and Non-seasonal allergic rhinitis due to other allergic trigger J30.89 [facility], [place] [id number] [place] [address] 96836- 9313 11 Apr, 2016 Mood disorder F39 [facility], [place] [id number] [place] [address] 80019- 8616 10 Apr, 2016 Major depressive disorder, recurrent episode, moderate F33.1 and PTSD (post-traumatic stress disorder) F43.10 [facility], [place] [address] [address]- 7522 Apr, [facility], [place] [id number] [place] [address] 16488- 0625 Apr, [facility], [place] [address] [place] [address] 54085- 6188 Apr, Chest pain, unspecified type R07.9 ; Chronic obstructive pulmonary disease, unspecified COPD type J44.9 ; Hyperlipidemia, unspecified hyperlipidemia type E78.5 and Tobacco use Z72.0 [facility], [place] [address] [address]- 7647 Mar, Mood disorder F39 [place] [id number] [place] [address] 96444- 3888 Mar, Mood disorder F39 [place] [id number] [place] [address] 73979- 3363 Mar, Other osteoarthritis of spine, cervical region M47.892 [place] [address] [place] [address] 87044- 9910 Mar, Tear of right rotator cuff, unspecified tear extent M75.101 [place] [id number] [place] [address] 37214- 3555 Mar, [place] [address] 42879- 5593 Mar, Bipolar II disorder F31.81 [place] [id number] [place] [address] 58287- 9372 Mar, [place] [id number] [place] [address] 84779- 4712 Feb, Impingement syndrome of right shoulder M75.41 ; Tear of right rotator cuff, unspecified tear extent M75.101 and Loose body in right elbow M24.021 [place] [id number] [place] [address] 03044- 6152 Jan, [place] [id number] [place] [address] 01455- 8751 Jan, [place] [id number] [place] [address] 44695- 9483 Jan, Prediabetes R73.09 ; Other chronic pain G89.29 and Pain in right shoulder M25.511 [place] [id number] [place] [address] 36627- 6698 Dec, [place] [id number] [place] [address] 28089- 6526 Dec, Heartburn R12 and Chest discomfort R07.89 [place] [address] [place] [address]- 5787 Dec, Impingement syndrome of right shoulder M75.41 and 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, 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 [place] [address] [place] [address] 95317- 7416 Nov, [place] [id number] [place] [address] 35894- 2116 Nov, Leukocytosis D72.829 [place] [id number] [place] [address] 52875- 2950 Nov, [place] [id number] [place] [address] 77735- 7135 Nov, Enlarged lymph node R59.9 ; Chronic obstructive pulmonary disease, unspecified COPD type J44.9 ; Low back pain M54.5 ; Neuropathy G62.9 and Closed nondisplaced fracture of sternal end of right clavicle, sequela S42.017S [place] [address] [place] [address] 35791- 2262 October, [place] [id number] [place] [address] 51367- 9451 October, [place] [id number] [place] [address] 95627- 7163 Sep, [place] [id number] [place] [address] 27877- 2668 Aug, Double vision H53.2 ; Occipital headache R51 ; Chronic obstructive pulmonary disease, unspecified COPD type J44.9 and Gastroesophageal reflux disease, esophagitis presence not specified K21.9 [place] [id number] [place] [address] 24042- 3402 Aug, [place] [id number] [place] [address] 37686- 9075 Jul, Enlarged lymph node in neck R59.0 [place] [address] [place] [address]- 5889 12 Jul, 2015 [place] [address] 08474- 3871 10 Jul, 2015 Chronic obstructive pulmonary disease, unspecified COPD type J44.9 ; Tobacco use Z72.0 ; Leukocytosis D72.829 ; Hyperlipidemia E78.5 and Neck abscess L02.11 [place] [address] 37081- 5652 14 Jun, 2015 Shortness of breath R06.02 [place] [address] 22571- 8870 17 May, 2015 Leukocytosis D72.829 and Shortness of breath R06.02 [place] [address] 38132- 8543 09 May, 2015 Low back pain M54.5 ; Hyperlipidemia E78.5 ; Leukocytosis D72.829 ; Other osteoarthritis of spine, cervical region M47.892 and Shortness of breath R06.02 [place] [id number] [place] [address] 88593- 0529 18 Feb, 2015 Chest pain 786.50 ; Tobacco use 305.1 ; Back pain 724.5 and Hyperlipemia 272.4 [place] [address] [id number] [place] [address] 22951- 7413 Jan, [place] [address] 28736- 5689 Jan, Chronic low back pain 724.2 and Degenerative arthritis of cervical spine 721.0 [place] [address] [id number] [place] [address] 71781- 6568 Jan, Chronic low back pain 724.2 and Neck pain 723.1 [place] [id number] [place] [address] 00895- 8310 Dec, Chronic low back pain 724.2 and Neck pain 723.1 [place] [address] [address]- 2543 Nov, Chest pain 786.50 ; Dyspnea 786.09 ; Tobacco use 305.1 and Back pain 724.5 [place] [address] [place] [address] 70667- 6492 Nov, [place] [address] [place] [address] 59881- 8098 04 Nov, 2014 Disability examination V68.01 and Muscle pain 729.1 [place] [id number] [place] [address] 99236- 4336 October, History of [place] (myocardial infarction) 412 ; Hyperlipidemia LDL goal < 100 272.4 ; Leukocytosis 288.60 and Glucose intolerance (pre-diabetes ) 790.29 [place] [address] [place] [address] 16574- 4544 October, Chest pain 786.50 ; Chronic low back pain 724.2 ; History of [place] (myocardial infarction) 412 and Neuropathy 355.9 [place] [id number] [place] [address] [phone] October, Chronic low back pain 724.2 ; Chest pain 786.50 ; History of [place] (myocardial infarction) 412 and Neuropathy 355.9 IMMUNIZATIONS No Known Immunizations SOCIAL HISTORY Never Assessed REASON FOR VISIT 1 mo f/u DM Ed PLAN OF CARE VITAL [...]
--- OUTSIDE RECORDS SUMMARY | 2018-04-03 15:02 | XMS REPORT ---
Author Author KINJAL DORIS [facility] Address [facility] [place] [address] Care Team Providers Care Frameman Name Role Phone DORIS LAYTON Unavailable PROBLEMS Type Condition ICD9-CM Code NRA60-KK Code Onset Dates Condition Status SNOMED Code Problem Enlarged lymph node R59.9 Active 90629659 Problem Hyperlipidemia, unspecified hyperlipidemia type E78.5 Active 36837165 Problem Tear of right rotator cuff, unspecified tear extent M75.101 Active 676447304 Problem Other chronic pain G89.29 Active 23946255 Problem Internal hemorrhoids K64.8 Active 43132988 Problem Nocturnal hypoxia G47.34 Active 763588559 Problem Panlobular emphysema J43.1 Active 1393805 Problem Hyperplastic colonic polyp, unspecified part of colon K63.5 Active 464225338 Problem Non-seasonal allergic rhinitis due to other allergic trigger J30.89 Active 65241242 Problem Mood disorder F39 Active 87105432 Problem Bipolar disorder, unspecified F31.9 Active 36033379 Problem Uncontrolled type 2 diabetes mellitus with hyperglycemia, without long -term current use of insulin E11.65 Active 896122243 Problem GERD with esophagitis K21.0 Active 039085966 Problem Other osteoarthritis of spine, cervical region M47.892 Active 816667207 Problem Hiatal hernia K44.9 Active 60375499 Problem External hemorrhoids K64.4 Active 36568821 Problem Leukocytosis D72.829 Active 795430897 Problem Hyperlipidemia E78.5 Active 46629362 Problem History of NV (myocardial infarction) I25.2 Active 106635068 Problem Neuropathy G62.9 Active 734944146 Problem Other chronic gastritis without hemorrhage K29.50 Active 5220877 Problem Low back pain M54.5 Active 635777152 Problem Tobacco use Z72.0 Active 139961954 ALLERGIES No Information ENCOUNTERS Encounter Location Date Diagnosis [facility] [id number] [address] Jun, [facility] [address] [address] [address] Mar, [facility] [address] [address] 9414 Mar, [facility] [address] [address] 4801 Feb, [facility] [id number] [place] [address] 242247- 7685 Feb, [facility] [id number] [place] [address] 331562- 3353 Feb, Uncontrolled type 2 diabetes mellitus with hyperglycemia, without long-term current use of insulin E11.65 [facility] [address] [address] 3511 Feb, Mood disorder F39 [facility] [address] [address] 9039 Jan, [facility] [address] [address]- 6620 Jan, Mood disorder F39 [facility] [address] [address] 0780 Jan, [facility] [address] [address] 2970 Dec, Bipolar disorder, unspecified F31.9 [facility] [address] [address]- 2270 Dec, [facility] [address] [address]- 5322 Dec, [facility] [address] [address]- 6057 Dec, [facility] [address] [address]- 8948 Dec, Mood disorder F39 [facility] [address] [address]- 1118 Nov, Bipolar disorder, unspecified F31.9 [facility] [id number] [place] [address] 78682- 8076 Nov, [facility] [id number] [place] [address] 19899- 4996 Nov, Pain in left knee M25.562 ; Other chronic pain G89.29 ; Hyperlipidemia E78.5 ; Leukocytosis D72.829 ; Other osteoarthritis of spine, cervical region M47.892 ; Tobacco use Z72.0 and Uncontrolled type 2 diabetes mellitus with hyperglycemia, without long-term current use of insulin E11.65 [facility] [id number] [place] [address] 84404- 6850 Nov, [facility] [id number] [place] [address] 32996- 3830 Nov, [facility] [id number] [place] [address] 47547- 0174 October, [facility] [id number] [place] [address] 16673- 6305 October, Low back pain M54.5 [facility] [id number] [place] [address] 12719- 0260 Sep, [facility] [id number] [place] [address] 55776- 5929 Sep, [facility] [id number] [place] [address] 81962- 3932 Sep, Leukocytosis D72.829 [facility] [id number] [place] [address] 96149- 6122 Sep, [facility] [id number] [place] [address] 23724- 4781 Sep, [facility] [id number] [place] [address] 94124- 6255 Sep, [facility] [id number] [place] [address] 12666- 9560 Aug, Low back pain M54.5 [facility] [id number] [place] [address] 35275- 1714 Aug, Bipolar disorder, unspecified F31.9 [facility] [id number] [place] [address] 71067- 4495 Aug, [facility] [id number] [place] [address] 28894- 5276 Aug, [place] [id number] [place] [address] 98384- 2143 Aug, Uncontrolled type 2 diabetes mellitus with hyperglycemia, without long-term current use of insulin E11.65 ; Non-healing surgical wound, initial encounter T81.89XA ; Cellulitis of abdominal wall L03.311 ; Hyperlipidemia E78.5 ; Chronic obstructive pulmonary disease, unspecified COPD type J44.9 and Tobacco use Z72.0 [place] [id number] [place] [address] 52724- 6272 Aug, [place] [id number] [place] [address] 29583- 0865 Jul, [place] [id number] [place] [address] 45326- 2693 Jul, [place] [id number] [place] [address] 30805- 0493 Jul, Type 2 diabetes mellitus 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, unspecified terminologist insulin use status E11.40 [place] [id number] [place] [address] 40578- 4806 Jun, Bipolar disorder, unspecified F31.9 [facility] [id number] [place] [address] 20744- 7264 Jun, [facility] [id number] [place] [address] 00990- 5396 Jun, Bipolar disorder, unspecified F31.9 [place] [id number] [place] [address] 96184- 6679 Jun, Mood disorder F39 [facility] [id number] [place] [address] 56052- 2003 Jun, [place] [id number] [place] [address] 42208- 8481 May, Fissure in skin of foot R23.4 ; Callus of foot L84 and Type 2 diabetes mellitus 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, unspecified terminologist insulin use status E11.40 [place] [id number] [place] [address] 96260- 2825 May, Mood disorder F39 [place] [id number] [place] [address] 79423- 8864 Apr, [place] [id number] [place] [address] 82576- 0472 Apr, Cough R05 and Tobacco use Z72.0 [place] [id number] [place] [address] 79221- 2396 Apr, Cough R05 and Tobacco use Z72.0 [place] [id number] [place] [address] 70166- 9480 Apr, Mood disorder F39 [place] [id number] [place] [address] 69979- 5218 Apr, Low back pain M54.5 [place] [id number] [place] [address] 00332- 9464 Apr, Uncontrolled type 2 diabetes mellitus with hyperglycemia, without long-term current use of insulin E11.65 [place] [address] [place] [address] 85157- 0093 03 Apr, 2017 Uncontrolled type 2 diabetes mellitus with hyperglycemia, without long-term current use of insulin E11.65 [place] [address] [place] [address]- 0448 Mar, Bipolar disorder, unspecified F31.9 [facility] [id number] [place] [address] 12569- 6430 Mar, [facility] [id number] [place] [address] 53127- 9676 Mar, Bipolar disorder, unspecified F31.9 [facility] [id number] [place] [address] 07034- 1861 Mar, Mood disorder F39 [facility] [id number] [place] [address] 56758- 2118 Feb, [facility] [id number] [place] [address] 74596- 2916 Feb, [facility] [id number] [place] [address] 66356- 2904 Feb, [facility] [id number] [place] [address] 05095- 3223 Feb, Bipolar disorder, unspecified F31.9 [place] [id number] [place] [address] 57032- 1351 Feb, Uncontrolled type 2 diabetes mellitus with hyperglycemia, without long-term current use of insulin E11.65 ; Encounter for immunization Z23 ; Vasovagal syncope R55 and Low back pain M54.5 [place] [id number] [place] [address] 29004- 3260 Jan, Bipolar disorder, unspecified F31.9 [facility] [id number] [place] [address] 95647- 9683 Jan, [place] [id number] [place] [address] 18363- 6823 Jan, Fatigue, unspecified type R53.83 ; Nocturnal hypoxia G47.34 ; Leukocytosis D72.829 ; Other chronic gastritis without hemorrhage K29.50 ; Uncontrolled type 2 diabetes mellitus with hyperglycemia, without long-term current use of insulin E11.65 ; Alternating constipation and diarrhea R19.8 and Chronic obstructive pulmonary disease, unspecified COPD type J44.9 [place] [id number] [place] [address] 43973- 8671 Jan, [place] [id number] [place] [address] 58270- 9659 Jan, Leukocytosis D72.829 [place] [id number] [place] [address] 91601- 7063 Jan, Mood disorder F39 [place] [id number] [place] [address] 71114- 5885 Dec, Bipolar disorder, unspecified F31.9 [place] [id number] [place] [address] 20952- 9151 Dec, [facility] [id number] [place] [address] 39559 -3311 Dec, Acute gastritis without bleeding K29.00 [place] [id number] [place] [address] 78141- 2337 Dec, Leukocytosis D72.829 [place] [id number] [place] [address] 46593- 6384 Dec, [place] [id number] [place] [address] 77331- 1507 Dec, Dental examination Z01.20 [place] [id number] [place] [address] 80518- 9862 Dec, [place] [id number] [place] [address] 23241- 0929 Dec, Leukocytosis D72.829 [place] [id number] [place] [address] 96505- 9885 Dec, Uncontrolled type 2 diabetes mellitus with hyperglycemia, without long-term current use of insulin E11.65 [place] [id number] [place] [address] 05160- 4451 Nov, Dental examination Z01.20 [place] [address] [address]- 4384 Nov, [place] [id number] [place] [address] 79739- 1428 Nov, Major depressive disorder, recurrent episode, moderate F33.1 [place] [id number] [place] [address] 95363- 9482 Nov, Leukocytosis D72.829 [place] [address] [place] [address] 55208- 0900 Nov, Mood disorder F39 [place] [id number] [place] [address] 53194- 8142 Nov, Other osteoarthritis of spine, cervical region M47.892 and Uncontrolled type 2 diabetes mellitus with hyperglycemia, without long-term current use of insulin E11.65 [place] [address] [place] [address] 81912- 3218 Nov, Leukocytosis D72.829 and Elevated serum glucose R73.9 [place] [id number] [place] [address] 56534- 2929 October, Elevated serum glucose R73.9 [place] [id number] [place] [address] 32206- 6638 October, Mood disorder F39 [place] [id number] [place] [address] 97495- 6991 Sep, Major depressive disorder, recurrent episode, moderate F33.1 [place] [address] [address]- 4854 Sep, Mood disorder F39 [place] [id number] [place] [address] 40633- 6752 Aug, [place] [address] [place] [address] 14188- 5652 Jul, Major depressive disorder, recurrent episode, moderate F33.1 [facility] [address] [address]- 5375 Jul, Mood disorder F39 [facility] [address] [address]- 6177 Jul, [facility] [address] [place] [address] 66282- 0282 Jul, History of NV (myocardial infarction) I25.2 ; Hyperlipidemia E78.5 ; Prediabetes R73.09 ; Chronic obstructive pulmonary disease, unspecified COPD type J44.9 and Tobacco use Z72.0 [facility] [id number] [place] [address] 51001- 4512 Jun, [facility] [id number] [place] [address] 52299- 3781 Jun, Mood disorder F39 [facility] [id number] [place] [address] 99931- 3938 Jun, [facility] [address] [place] [address] 40248- 6421 May, Major depressive disorder, recurrent episode, moderate F33.1 and Primary insomnia F51.01 [facility] [address] [address]- 2220 May, Mood disorder F39 [facility] [address] [address]- 9895 Apr, [facility] [address] [address]- 1327 Apr, Mood disorder F39 [facility] [address] [address]- 6033 Apr, [facility] [address] [address]- 4548 Apr, [facility] [id number] [place] [address] 36775- 3941 Apr, Chronic obstructive pulmonary disease, unspecified COPD type J44.9 and Non-seasonal allergic rhinitis due to other allergic trigger J30.89 [facility] [id number] [place] [address] 41520- 6860 Apr, Mood disorder F39 [facility] [id number] [place] [address] 64490- 5395 Apr, Major depressive disorder, recurrent episode, moderate F33.1 and PTSD (post-traumatic stress disorder) F43.10 [place] [id number] [place] [address] 29452- 7715 Apr, [place] [id number] [place] [address] 07720- 7700 Apr, [place] [id number] [place] [address] 25628- 5971 Apr, Chest pain, unspecified type R07.9 ; Chronic obstructive pulmonary disease, unspecified COPD type J44.9 ; Hyperlipidemia, unspecified hyperlipidemia type E78.5 and Tobacco use Z72.0 [place] [id number] [place] [address] 11513- 6333 Mar, Mood disorder F39 [facility] [address] [place] [address] 76220- 0042 Mar, Mood disorder F39 [facility] [id number] [place] [address] 32244- 2857 Mar, Other osteoarthritis of spine, cervical region M47.892 [facility] [address] [place] [address] 71899- 1510 Mar, Tear of right rotator cuff, unspecified tear extent M75.101 [facility] [id number] [place] [address] 14352- 0797 Mar, [facility] [id number] [place] [address] 49512- 6391 Mar, Bipolar II disorder F31.81 [place] [id number] [place] [address] 81444- 6681 Mar, [place] [id number] [place] [address] 76140- 9225 Feb, Impingement syndrome of right shoulder M75.41 ; Tear of right rotator cuff, unspecified tear extent M75.101 and Loose body in right elbow M24.021 [place] [id number] [place] [address] 20841- 5289 Jan, [place] [id number] [place] [address] 27944- 9789 Jan, [place] [id number] [place] [address] 60314- 4560 Jan, Prediabetes R73.09 ; Other chronic pain G89.29 and Pain in right shoulder M25.511 [place] [id number] [place] [address] 72168- 6741 Dec, [place] [id number] [place] [address] 60770- 7785 Dec, Heartburn R12 and Chest discomfort R07.89 [place] [address] [place] [address] 69206- 9823 Dec, Impingement syndrome of right shoulder M75.41 and 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, 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 [place] [id number] [place] [address] 51816- 5662 Nov, [place] [id number] [place] [address] 19975- 5935 Nov, Leukocytosis D72.829 [place] [id number] [place] [address] 51823- 0334 Nov, [place] [id number] [place] [address] 04292- 9371 Nov, Enlarged lymph node R59.9 ; Chronic obstructive pulmonary disease, unspecified COPD type J44.9 ; Low back pain M54.5 ; Neuropathy G62.9 and Closed nondisplaced fracture of sternal end of right clavicle, sequela S42.017S [place] [id number] [place] [address] 23313- 5107 October, [place] [id number] [place] [address] 30776- 7179 October, [place] [id number] [place] [address] 35676- 2368 Sep, [place] [address] 73685- 0045 Aug, Double vision H53.2 ; Occipital headache R51 ; Chronic obstructive pulmonary disease, unspecified COPD type J44.9 and Gastroesophageal reflux disease, esophagitis presence not specified K21.9 [place] [id number] [place] [address] 36885- 8840 Aug, [place] [id number] [place] [address] 16356- 3463 Jul, Enlarged lymph node in neck R59.0 [place] [id number] [place] [address] 08700- 2782 Jul, [place] [address] [place] [address] 38285- 1973 Jul, Chronic obstructive pulmonary disease, unspecified COPD type J44.9 ; Tobacco use Z72.0 ; Leukocytosis D72.829 ; Hyperlipidemia E78.5 and Neck abscess L02.11 [place] [id number] [place] [address] 79836- 5537 Jun, Shortness of breath R06.02 [place] [id number] [place] [address] 88657- 4831 May, Leukocytosis D72.829 and Shortness of breath R06.02 [place] [id number] [place] [address] 68223- 2706 May, Low back pain M54.5 ; Hyperlipidemia E78.5 ; Leukocytosis D72.829 ; Other osteoarthritis of spine, cervical region M47.892 and Shortness of breath R06.02 [place] [id number] [place] [address] 90583- 3149 Feb, Chest pain 786.50 ; Tobacco use 305.1 ; Back pain 724.5 and Hyperlipemia 272.4 [place] [id number] [place] [address] 12409- 5066 Jan, [place] [address] 29218- 8698 Jan, Chronic low back pain 724.2 and Degenerative arthritis of cervical spine 721.[address] [address]72- 5886 Jan, Chronic low back pain 724.2 and Neck pain 723.1 [place] [id number] [place] [address] 43235- 4441 Dec, Chronic low back pain 724.2 and Neck pain 723.1 [place] [id number] [place] [address] 91453- 0550 Nov, Chest pain 786.50 ; Dyspnea 786.09 ; Tobacco use 305.1 and Back pain 724.5 [place] [id number] [place] [address] 87689- 5589 Nov, [place] [id number] [place] [address] 79011- 8693 Nov, Disability examination V68.01 and Muscle pain 729.1 [place] [id number] [place] [address] 38388- 3811 October, History of NV (myocardial infarction) 412 ; Hyperlipidemia LDL goal < 100 272.4 ; Leukocytosis 288.60 and Glucose intolerance (pre-diabetes ) 790.29 [facility] [address] [facility] [id number] [place] [address]- 4242 October, Chest pain 786.50 ; Chronic low back pain 724.2 ; History of NV (myocardial infarction) 412 and Neuropathy 355.9 [facility] [address] [facility] [id number] [place] [address] October, Chronic low back pain 724.2 ; Chest pain 786.50 ; History of NV (myocardial infarction) 412 and Neuropathy 355.9 IMMUNIZATIONS No Known Immunizations SOCIAL HISTORY Never Assessed REASON FOR VISIT 1 wk f/u DM Ed PLAN OF CARE VITAL SIGNS MEDICATIONS Medication Instructions Dosage Frequency Start Date End Date Duration Status Victoza 18 MG/3ML Subcutaneous Once a day 0.6 mg daily x 7 days, then 1.2 mg daily 24h Feb, Active RESULTS No Results PROCEDURES No Known [...]
--- OUTSIDE RECORDS SUMMARY | 2018-04-03 15:03 | XMS REPORT ---
Author Author ERWIN LEO [facility] Address [facility] [place] [address] Care Team Providers Care Horse Doctor Name Role Phone ERWIN LEO Unavailable PROBLEMS Type Condition ICD9-CM Code GPA66-IT Code Onset Dates Condition Status SNOMED Code Problem Enlarged lymph node R59.9 Active 59754177 Problem Hyperlipidemia, unspecified hyperlipidemia type E78.5 Active 38572752 Problem Tear of right rotator cuff, unspecified tear extent M75.101 Active 753636017 Problem Other chronic pain G89.29 Active 68630760 Problem Internal hemorrhoids K64.8 Active 41985813 Problem Nocturnal hypoxia G47.34 Active 844612447 Problem Panlobular emphysema J43.1 Active 2559739 Problem Hyperplastic colonic polyp, unspecified part of colon K63.5 Active 116101465 Problem Non-seasonal allergic rhinitis due to other allergic trigger J30.89 Active 17000064 Problem Mood disorder F39 Active 95238210 Problem Bipolar disorder, unspecified F31.9 Active 43496081 Problem Uncontrolled type 2 diabetes mellitus with hyperglycemia, without long -term current use of insulin E11.65 Active 414746330 Problem GERD with esophagitis K21.0 Active 493377794 Problem Other osteoarthritis of spine, cervical region M47.892 Active 578231144 Problem Hiatal hernia K44.9 Active 25752199 Problem External hemorrhoids K64.4 Active 75742103 Problem Leukocytosis D72.829 Active 595901133 Problem Hyperlipidemia E78.5 Active 26527418 Problem History of VA (myocardial infarction) I25.2 Active 115342703 Problem Neuropathy G62.9 Active 744910067 Problem Other chronic gastritis without hemorrhage K29.50 Active 6388670 Problem Low back pain M54.5 Active 764891536 Problem Tobacco use Z72.0 Active 621258402 ALLERGIES No Information ENCOUNTERS Encounter Location Date Diagnosis [facility] [id number], [place] [address] Jun, [facility] [address] [address] [address] Mar, [facility] [address], [place] [address] 4479 Mar, [facility] [address], [place] [address] 5380 Feb, [facility] [id number] [place] [address] 183048- 1193 Feb, [facility] [id number] [place] [address] 810204- 9588 Feb, Uncontrolled type 2 diabetes mellitus with hyperglycemia, without long-term current use of insulin E11.65 [facility] [address], [place] [address] 4259 Feb, Mood disorder F39 [facility] [address], [place] [address] 95[address] Jan, [facility] [address], [place] [address] 1704 Jan, Mood disorder F39 [facility] [address], [place] [address] 50[address] Jan, [facility] [address], [place] [address] 7547 Dec, Bipolar disorder, unspecified F31.9 [facility] [address], [place] [address] 9432 Dec, [facility] [address], [place] [address]- 9747 Dec, [facility] [address], [place] [address] Dec, [facility] [address], [place] [address] 7650 Dec, Mood disorder F39 [facility] [address], [place] [address] 4448 Nov, Bipolar disorder, unspecified F31.9 [facility] [id number] [place] [address] 27008- 6259 Nov, [facility] [id number] [place] [address] 07382- 6393 Nov, Pain in left knee M25.562 ; Other chronic pain G89.29 ; Hyperlipidemia E78.5 ; Leukocytosis D72.829 ; Other osteoarthritis of spine, cervical region M47.892 ; Tobacco use Z72.0 and Uncontrolled type 2 diabetes mellitus with hyperglycemia, without long-term current use of insulin E11.65 [facility] [id number] [place] [address] 64763- 9365 Nov, [facility] [id number] [place] [address] 55474- 9490 Nov, [facility] [id number] [place] [address] 80224- 4261 October, [facility] [id number] [place] [address] 02599- 1069 October, Low back pain M54.5 [facility] [id number] [place] [address] 70109- 7817 Sep, [facility] [id number] [place] [address] 45928- 6038 Sep, [facility] [id number] [place] [address] 51323- 3128 Sep, Leukocytosis D72.829 [facility] [id number] [place] [address] 01306- 6018 Sep, [facility] [id number] [place] [address] 61847- 0324 Sep, [facility] [id number] [place] [address] 82738- 4891 Sep, [facility] [id number] [place] [address] 61091- 7144 Aug, Low back pain M54.5 [facility] [id number] [place] [address] 27344- 5192 Aug, Bipolar disorder, unspecified F31.9 [facility] [id number] [place] [address] 37024- 6320 Aug, [facility] [id number] [place] [address] 62021- 4938 Aug, [facility] [id number] [place] [address] 47728- 8721 Aug, Uncontrolled type 2 diabetes mellitus with hyperglycemia, without long-term current use of insulin E11.65 ; Non-healing surgical wound, initial encounter T81.89XA ; Cellulitis of abdominal wall L03.311 ; Hyperlipidemia E78.5 ; Chronic obstructive pulmonary disease, unspecified COPD type J44.9 and Tobacco use Z72.0 [facility] [id number] [place] [address] 96583- 7192 Aug, [facility] [id number] [place] [address] 80812- 3055 Jul, [facility] [address] [place] [address] 98944- 9269 Jul, [facility] [id number] [place] [address] 29473- 0480 Jul, Type 2 diabetes mellitus 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, unspecified 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 designer insulin use status E11.40 [facility] [id number] [place] [address] 54268- 3080 Jun, Bipolar disorder, unspecified F31.9 [facility] [id number] [place] [address] 59150- 4206 Jun, [facility] [id number] [place] [address] 88414- 9909 Jun, Bipolar disorder, unspecified F31.9 [facility] [id number] [place] [address] 06506- 7168 Jun, Mood disorder F39 [facility] [id number] [place] [address] 44991- 2993 Jun, [facility] [id number] [place] [address] 55573- 2070 May, Fissure in skin of foot R23.4 ; Callus of foot L84 and Type 2 diabetes mellitus 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, unspecified 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 designer insulin use status E11.40 [facility] [id number] [place] [address] 90611- 7408 May, Mood disorder F39 [facility] [id number] [place] [address] 84693- 5306 Apr, [facility] [id number] [place] [address] 35263- 5001 Apr, Cough R05 and Tobacco use Z72.0 [facility] [id number] [place] [address] 46830- 3236 Apr, Cough R05 and Tobacco use Z72.0 [facility] [id number] [place] [address] 35404- 5485 Apr, Mood disorder F39 [facility] [id number] [place] [address] 84492- 2004 Apr, Low back pain M54.5 [facility] [id number] [place] [address] 94448- 1252 Apr, Uncontrolled type 2 diabetes mellitus with hyperglycemia, without long-term current use of insulin E11.65 [facility] [address] [place] [address] 21787- 0808 03 Apr, 2017 Uncontrolled type 2 diabetes mellitus with hyperglycemia, without long-term current use of insulin E11.65 [place] [address] [place] [address]- 1664 Mar, Bipolar disorder, unspecified F31.9 [facility] [id number] [place] [address] 17676- 4047 Mar, [facility] [id number] [place] [address] 33734- 8948 Mar, Bipolar disorder, unspecified F31.9 [facility] [id number] [place] [address] 90437- 7233 Mar, Mood disorder F39 [facility] [id number] [place] [address] 17232- 9869 Feb, [facility] [id number] [place] [address] 61607- 4389 Feb, [facility] [id number] [place] [address] 06045- 8533 Feb, [facility] [id number] [place] [address] 73465- 8954 Feb, Bipolar disorder, unspecified F31.9 [facility] [id number] [place] [address] 65094- 4936 Feb, Uncontrolled type 2 diabetes mellitus with hyperglycemia, without long-term current use of insulin E11.65 ; Encounter for immunization Z23 ; Vasovagal syncope R55 and Low back pain M54.5 [facility] [id number] [place] [address] 48822- 3709 Jan, Bipolar disorder, unspecified F31.9 [facility] [id number] [place] [address] 18911- 0425 Jan, [place] [facility] [id number] [place] [address] 54872- 5470 Jan, Fatigue, unspecified type R53.83 ; Nocturnal hypoxia G47.34 ; Leukocytosis D72.829 ; Other chronic gastritis without hemorrhage K29.50 ; Uncontrolled type 2 diabetes mellitus with hyperglycemia, without long-term current use of insulin E11.65 ; Alternating constipation and diarrhea R19.8 and Chronic obstructive pulmonary disease, unspecified COPD type J44.9 [facility] [id number] [place] [address] 94688- 8707 Jan, [facility] [id number] [place] [address] 39492- 8161 Jan, Leukocytosis D72.829 [facility] [id number] [place] [address] 35820- 5484 Jan, Mood disorder F39 [facility] [id number] [place] [address] 34290- 3248 Dec, Bipolar disorder, unspecified F31.9 [facility] [id number] [place] [address] 63068- 9688 Dec, [facility] [id number] [place] [address] 00881 -7038 Dec, Acute gastritis without bleeding K29.00 [facility] [id number] [place] [address] 43738- 8104 Dec, Leukocytosis D72.829 [facility] [id number] [place] [address] 88329- 1986 Dec, [place] [facility] [id number] [place] [address] 94634- 9572 Dec, Dental examination Z01.20 [facility] [id number] [place] [address] 70668- 2750 Dec, [place] [id number] [place] [address] 62072- 1448 Dec, Leukocytosis D72.829 [facility] [id number] [place] [address] 78717- 9788 Dec, Uncontrolled type 2 diabetes mellitus with hyperglycemia, without long-term current use of insulin E11.65 [facility] [id number] [place] [address] 52755- 2817 Nov, Dental examination Z01.20 [facility] [address], [place] [address]- 2832 Nov, [place] [id number] [place] [address] 74802- 6271 Nov, Major depressive disorder, recurrent episode, moderate F33.1 [place] [facility] [id number] [place] [address] 14089- 0527 Nov, Leukocytosis D72.829 [place] [facility] [address] [place] [address] 03584- 8459 Nov, Mood disorder F39 [facility] [id number] [place] [address] 89170- 5284 Nov, Other osteoarthritis of spine, cervical region M47.892 and Uncontrolled type 2 diabetes mellitus with hyperglycemia, without long-term current use of insulin E11.65 [facility] [address] [place] [address] 28612- 7082 Nov, Leukocytosis D72.829 and Elevated serum glucose R73.9 [place] [id number] [place] [address] 76752- 7229 October, Elevated serum glucose R73.9 [facility] [id number] [place] [address] 98415- 2204 October, Mood disorder F39 [facility] [address] [place] [address] 83070- 7803 Sep, Major depressive disorder, recurrent episode, moderate F33.1 [facility] [address], [place] [address]- 9155 Sep, Mood disorder F39 [facility] [address] [place] [address] 38326- 7796 Aug, [place] [facility] [address] [place] [address] 49642- 5008 Jul, Major depressive disorder, recurrent episode, moderate F33.1 [facility] [address], [place] [address]- 7062 Jul, Mood disorder F39 [facility] [address], [place] [address]- 0800 Jul, [facility] [address] [place] [address] 19511- 8844 Jul, History of VA (myocardial infarction) I25.2 ; Hyperlipidemia E78.5 ; Prediabetes R73.09 ; Chronic obstructive pulmonary disease, unspecified COPD type J44.9 and Tobacco use Z72.0 [facility] [id number] [place] [address] 15271- 5063 Jun, [facility] [id number] [place] [address] 22372- 3969 Jun, Mood disorder F39 [facility] [id number] [place] [address] 28065- 3651 Jun, [facility] [address] [place] [address] 41354- 2646 May, Major depressive disorder, recurrent episode, moderate F33.1 and Primary insomnia F51.01 [facility] [address], [place] [address]- 8153 May, Mood disorder F39 [facility] [address], [place] [address]- 7234 Apr, [facility] [address], [place] [address]- 6971 Apr, Mood disorder F39 [facility] [address], [place] [address]- 8480 Apr, [facility] [address], [place] [address]- 1302 Apr, [facility] [id number] [place] [address] 73490- 3648 Apr, Chronic obstructive pulmonary disease, unspecified COPD type J44.9 and Non-seasonal allergic rhinitis due to other allergic trigger J30.89 [facility] [id number] [place] [address] 69267- 7400 Apr, Mood disorder F39 [facility] [id number] [place] [address] 70155- 1942 Apr, Major depressive disorder, recurrent episode, moderate F33.1 and PTSD (post-traumatic stress disorder) F43.10 [facility] [id number] [place] [address] 80474- 9396 Apr, [facility] [facility] [id number] [place] [address] 64464- 0180 Apr, [facility] [id number] [place] [address] 19370- 1066 Apr, Chest pain, unspecified type R07.9 ; Chronic obstructive pulmonary disease, unspecified COPD type J44.9 ; Hyperlipidemia, unspecified hyperlipidemia type E78.5 and Tobacco use Z72.0 [facility] [id number] [place] [address] 16281- 9771 Mar, Mood disorder F39 [facility] [address] [place] [address] 01185- 8498 Mar, Mood disorder F39 [facility] [id number] [place] [address] 93727- 3348 Mar, Other osteoarthritis of spine, cervical region M47.892 [facility] [id number] [place] [address] 83304- 1360 Mar, Tear of right rotator cuff, unspecified tear extent M75.101 [facility] [id number] [place] [address] 06243- 2128 Mar, [facility] [id number] [place] [address] 26355- 6708 Mar, Bipolar II disorder F31.81 [facility] [id number] [place] [address] 11105- 5507 Mar, [facility] [id number] [place] [address] 55455- 4442 Feb, Impingement syndrome of right shoulder M75.41 ; Tear of right rotator cuff, unspecified tear extent M75.101 and Loose body in right elbow M24.021 [facility] [id number] [place] [address] 39564- 0612 Jan, [facility] [id number] [place] [address] 83122- 8047 Jan, [facility] [id number] [place] [address] 44709- 8388 Jan, Prediabetes R73.09 ; Other chronic pain G89.29 and Pain in right shoulder M25.511 [facility] [id number] [place] [address] 35574- 3658 Dec, [place] [id number] [place] [address] 47096- 4056 Dec, Heartburn R12 and Chest discomfort R07.89 [facility] [id number] [place] [address] 34321- 5374 Dec, Impingement syndrome of right shoulder M75.41 and 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, 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 [facility] [id number] [place] [address] 76587- 4066 Nov, [facility] [id number] [place] [address] 13613- 8433 Nov, Leukocytosis D72.829 [place] [facility] [id number] [place] [address] 39203- 3581 Nov, [place] [facility] [id number] [place] [address] 13963- 2396 Nov, Enlarged lymph node R59.9 ; Chronic obstructive pulmonary disease, unspecified COPD type J44.9 ; Low back pain M54.5 ; Neuropathy G62.9 and Closed nondisplaced fracture of sternal end of right clavicle, sequela S42.017S [facility] [id number] [place] [address] 40896- 6918 October, [place] [facility] [id number] [place] [address] 94189- 0143 October, [place] [id number] [place] [address] 87037- 3783 Sep, [place] [facility] [address] 52685- 3473 Aug, Double vision H53.2 ; Occipital headache R51 ; Chronic obstructive pulmonary disease, unspecified COPD type J44.9 and Gastroesophageal reflux disease, esophagitis presence not specified K21.9 [place] [facility] [id number] [place] [address] 34532- 2719 Aug, [facility] [id number] [place] [address] 82011- 3281 Jul, Enlarged lymph node in neck R59.0 [facility] [id number] [place] [address] 54726- 8389 Jul, [place] [facility] [id number] [place] [address] 48437- 3626 Jul, Chronic obstructive pulmonary disease, unspecified COPD type J44.9 ; Tobacco use Z72.0 ; Leukocytosis D72.829 ; Hyperlipidemia E78.5 and Neck abscess L02.11 [place] [facility] [id number] [place] [address] 68000- 3377 Jun, Shortness of breath R06.02 [facility] [facility] [id number] [place] [address] 78823- 1391 May, Leukocytosis D72.829 and Shortness of breath R06.02 [place] [id number] [place] [address] 26070- 6676 May, Low back pain M54.5 ; Hyperlipidemia E78.5 ; Leukocytosis D72.829 ; Other osteoarthritis of spine, cervical region M47.892 and Shortness of breath R06.02 [facility] [id number] [place] [address] 20567- 4084 Feb, Chest pain 786.50 ; Tobacco use 305.1 ; Back pain 724.5 and Hyperlipemia 272.4 [facility] [id number] [place] [address] 72508- 0961 Jan, [place] [facility] [address] 88806- 7123 Jan, Chronic low back pain 724.2 and Degenerative arthritis of cervical spine 721.[address] 06802- 5513 Jan, Chronic low back pain 724.2 and Neck pain 723.1 [place] [id number] [place] [address] 36810- 9019 Dec, Chronic low back pain 724.2 and Neck pain 723.1 [facility] [id number] [place] [address] 96926- 3544 Nov, Chest pain 786.50 ; Dyspnea 786.09 ; Tobacco use 305.1 and Back pain 724.5 [facility] [id number] [place] [address] 80479- 0873 Nov, [facility] [facility] [id number] [place] [address] 80631- 2202 Nov, Disability examination V68.01 and Muscle pain 729.1 [facility] [id number] [place] [address] 64422- 2867 October, History of VA (myocardial infarction) 412 ; Hyperlipidemia LDL goal < 100 272.4 ; Leukocytosis 288.60 and Glucose intolerance (pre-diabetes ) 790.29 [facility] [address] [facility] [id number] [place] [address]- 7941 October, Chest pain 786.50 ; Chronic low back pain 724.2 ; History of VA (myocardial infarction) 412 and Neuropathy 355.9 [facility] [address] [facility] [id number] [place] [address]- 1134 October, Chronic low back pain 724.2 ; [...] Psychotherapy, patient &/family, 30 minutes, established patient Feb 06, 2018 INSTRUCTIONS MEDICATIONS ADMINISTERED No Known Medications [...]
--- OUTSIDE RECORDS SUMMARY | 2018-04-03 15:06 | XMS REPORT | Continuity of Care Document ---
Author Author [facility] Organization [facility] Address Unknown Phone Unavailable Allergies Active Description Code Type Severity Reaction Onset Reported/Identified Relationship to Patient Clinical Status Yes Penicillins [id number] Drug Allergy Severe N/A 07/05/2017 Yes Tetracyclines [id number] Drug Allergy Moderate N/V 07/05/2017 Yes ampicillin [id number] Drug Allergy Mild N/V, GI UPSET 07/05/2017 Medications There is no data. Problems Date Dx Coded Attending Type Code Diagnosis Diagnosed By 12/01/2014 PARISA CARD Ot 786.09 12/01/2014 PARISA CARD Ot 786.50 12/10/2014 PARISA CARD Ot 786.09 12/10/2014 PARISA CARD Ot 786.50 12/22/2014 PARISA CARD Ot 786.09 12/22/2014 PARISA CARD Ot 786.50 12/22/2014 SURYA CABAN MD Ot 786.09 12/22/2014 SURYA CABAN MD Ot 786.50 12/25/2014 SURYA CABAN MD Ot 786.09 12/25/2014 SURYA CABAN MD Ot 786.50 01/27/2015 PARISA CARD Ot 786.09 01/27/2015 PARISA CARD Ot 786.50 01/27/2015 SURYA CABAN MD Ot 786.09 01/27/2015 SURYA CABAN MD Ot 786.50 01/27/2015 KINJAL WEBER, DORIS Butcher Ot 721.0 01/27/2015 DORIS LAYTON MD Ot 724.02 03/02/2015 SURYA CABAN MD Ot 786.09 03/02/2015 SURYA CABAN MD Ot 786.50 03/02/2015 DORIS LAYTON MD Ot 721.0 03/02/2015 DORIS LAYTON MD Ot 724.02 03/06/2015 SURYA CABAN MD Ot 786.09 03/06/2015 SURYA CABAN MD Ot 786.50 03/06/2015 DORIS LAYTON MD Ot 721.0 03/06/2015 DORIS LAYTON MD Ot 724.02 03/06/2015 NATHANIEL MONSIVAIS MD Ot M47.892 OTHER SPONDYLOSIS, CERVICAL REGION 03/06/2015 NATHANIEL MONSIVAIS MD Ot M47.896 OTHER SPONDYLOSIS, LUMBAR REGION 03/06/2015 NATHANIEL MONSIVAIS MD Ot M51.36 OTHER INTERVERTEBRAL DISC DEGENERATION, 07/27/2015 DORIS LAYTON MD Ot L02.11 07/29/2015 DORIS LAYTON MD Ot L02.11 08/28/2015 DORIS LAYTON MD Ot H53.2 10/14/2015 DORIS LAYTON MD Ot R59.0 LOCALIZED ENLARGED LYMPH NODES 10/14/2015 PARISA CARD Ot 786.09 RESPIRATORY ABNORM NEC 10/14/2015 PARISA CARD Ot 786.50 CHEST PAIN NOS 10/14/2015 SURYA CABAN MD Ot 786.09 RESPIRATORY ABNORM NEC 10/14/2015 SURYA CABAN MD Ot 786.50 CHEST PAIN NOS 10/14/2015 DORIS LAYTON MD Ot R59.0 LOCALIZED ENLARGED LYMPH NODES 10/14/2015 DORIS LAYTON MD Ot H53.2 DIPLOPIA 10/14/2015 DORIS LAYTON MD Ot L02.11 CUTANEOUS ABSCESS OF NECK 10/14/2015 DORIS LAYTON MD Ot H53.2 DIPLOPIA 10/14/2015 SURYA CABAN MD Ot 786.09 RESPIRATORY ABNORM NEC 10/14/2015 SURYA CABAN MD Ot 786.50 CHEST PAIN NOS 10/14/2015 SURYA CABAN MD Ot 786.09 RESPIRATORY ABNORM NEC 10/14/2015 SURYA CABAN MD Ot 786.50 CHEST PAIN NOS 10/14/2015 DORIS LAYTON MD Ot 721.0 CERVICAL SPONDYLOSIS 10/14/2015 DORIS LAYTON MD Ot 724.02 SPINAL STENOSIS, LUMBAR REG, W/OUT NEURO 12/31/2015 DORIS LAYTON MD Ot 721.0 CERVICAL SPONDYLOSIS 12/31/2015 DORIS LAYTON MD Ot 724.02 SPINAL STENOSIS, LUMBAR REG, W/OUT NEURO 12/31/2015 SURYA CABAN MD Ot 786.09 RESPIRATORY ABNORM NEC 12/31/2015 SURYA CABAN MD Ot 786.50 CHEST PAIN NOS 12/31/2015 DORIS LAYTON MD Ot L02.11 CUTANEOUS ABSCESS OF NECK 12/31/2015 DORIS LAYTON MD Ot H53.2 DIPLOPIA 12/31/2015 DORIS LAYTON MD Ot R59.0 LOCALIZED ENLARGED LYMPH NODES 02/09/2016 SURYA CABAN MD Ot 786.09 RESPIRATORY ABNORM NEC 02/09/2016 SURYA CABAN MD Ot 786.50 CHEST PAIN NOS 02/09/2016 DORIS LAYTON MD Ot 721.0 CERVICAL SPONDYLOSIS 02/09/2016 DORIS LAYTON MD Ot 724.02 SPINAL STENOSIS, LUMBAR REG, W/OUT NEURO 02/09/2016 DORIS LAYTON MD Ot L02.11 CUTANEOUS ABSCESS OF NECK 02/09/2016 DORIS LAYTON MD Ot R59.0 LOCALIZED ENLARGED LYMPH NODES 02/09/2016 DORIS LAYTON MD Ot H53.2 DIPLOPIA 02/11/2016 DORIS LAYTON MD Ot L02.11 CUTANEOUS ABSCESS OF NECK 02/11/2016 DORIS LAYTON MD Ot H53.2 DIPLOPIA 02/11/2016 DORIS LAYTON MD Ot R59.0 LOCALIZED ENLARGED LYMPH NODES 02/11/2016 Ot M75.101 UNSP ROTATR -CUFF TEAR/RUPTR OF RIGHT LEWIS 02/11/2016 Ot M75.101 UNSP ROTATR -CUFF TEAR/RUPTR OF RIGHT LEWIS 02/11/2016 Ot M75.101 UNSP ROTATR -CUFF TEAR/RUPTR OF RIGHT LEWIS 03/01/2016 DORIS LAYTON MD Ot L02.11 CUTANEOUS ABSCESS OF NECK 03/01/2016 DORIS LAYTON MD Ot R59.0 LOCALIZED ENLARGED LYMPH NODES 03/01/2016 DORIS LAYTON MD Ot H53.2 DIPLOPIA 03/01/2016 Ot M75.101 UNSP ROTATR -CUFF TEAR/RUPTR OF RIGHT LEWIS 03/21/2016 MOHINI BRALOW A 723.1 CERVICALGIA 03/21/2016 MOHINI BARLOW A M54.2 CERVICALGIA 03/23/2016 SURYA CABAN MD Ot 786.09 RESPIRATORY ABNORM NEC 03/23/2016 SURYA CABAN MD Ot 786.50 CHEST PAIN NOS 03/23/2016 DORIS LAYTON MD Ot 721.0 CERVICAL SPONDYLOSIS 03/23/2016 DORIS LAYTON MD Ot 724.02 SPINAL STENOSIS, LUMBAR REG, W/OUT NEURO 03/23/2016 DORIS LAYTON MD Ot L02.11 CUTANEOUS ABSCESS OF NECK 03/23/2016 DORIS LAYTON MD Ot R59.0 LOCALIZED ENLARGED LYMPH NODES 03/23/2016 DORIS LAYTON MD Ot H53.2 DIPLOPIA 03/23/2016 Ot M75.101 UNSP ROTATR -CUFF TEAR/RUPTR OF RIGHT LEWIS 03/23/2016 DORIS LAYTON MD Ot M47.892 OTHER SPONDYLOSIS, CERVICAL REGION 03/24/2016 DORIS LAYTON MD Ot M47.892 OTHER SPONDYLOSIS, CERVICAL REGION 04/07/2016 DORIS LAYTON MD Ot M47.892 OTHER SPONDYLOSIS, CERVICAL REGION 05/19/2016 JT FERNANDEZ DO Ot E66.9 OBESITY, UNSPECIFIED 05/19/2016 JT FERNANDEZ DO Ot F41.9 ANXIETY DISORDER, UNSPECIFIED 05/19/2016 JT FERNANDEZ DO Ot I20.9 ANGINA PECTORIS, UNSPECIFIED 05/19/2016 JT FERNANDEZ DO Ot J44.9 CHRONIC OBSTRUCTIVE PULMONARY DISEASE, U 05/19/2016 JT FERNANDEZ DO Ot J45.909 UNSPECIFIED ASTHMA, UNCOMPLICATED 05/19/2016 JT FERNANDEZ DO Ot Z72.0 TOBACCO USE 06/01/2016 MAN LEO 723.4 BRACHIAL NEURITIS OR RADICULITIS NOS 06/01/2016 MAN LEO M54.12 RADICULOPATHY, CERVICAL REGION 06/02/2016 JT FERNANDEZ DO Ot E66.9 OBESITY, UNSPECIFIED 06/02/2016 JT FERNANDEZ DO Ot F41.9 ANXIETY DISORDER, UNSPECIFIED 06/02/2016 JT FERNANDEZ DO Ot I20.9 ANGINA PECTORIS, UNSPECIFIED 06/02/2016 JT FERNANDEZ DO, Ot J44.9 CHRONIC OBSTRUCTIVE PULMONARY DISEASE, U 06/02/2016 JT FERNANDEZ DO Ot J45.909 UNSPECIFIED ASTHMA, UNCOMPLICATED 06/02/2016 JT FERNANDEZ DO Ot Z72.0 TOBACCO USE 06/03/2016 HUMZA, LARRY L GREEN MARKETING ANALYST Ot R10.11 RIGHT UPPER QUADRANT PAIN 06/07/2016 HUMZA, LARRY L GREEN MARKETING ANALYST Ot R10.11 RIGHT UPPER QUADRANT PAIN 06/08/2016 HUMZA, LARRY L GREEN MARKETING ANALYST Ot R10.11 RIGHT UPPER QUADRANT PAIN 06/09/2016 HUMZA, LARRY L GREEN MARKETING ANALYST Ot R10.11 RIGHT UPPER QUADRANT PAIN 06/09/2016 HUMZA, LARYR L GREEN MARKETING ANALYST Ot R10.11 RIGHT UPPER QUADRANT PAIN 06/09/2016 HUMZA, LARRY L GREEN MARKETING ANALYST Ot R10.11 RIGHT UPPER QUADRANT PAIN 06/16/2016 HUMZA, LARRY L GREEN MARKETING ANALYST Ot R10.11 RIGHT UPPER QUADRANT PAIN 06/23/2016 GALINA WALKER MD Ot K21.9 GASTRO-ESOPHAGEAL REFLUX DISEASE WITHOUT 06/23/2016 GALINA WALKER MD Ot Z01.818 ENCOUNTER FOR OTHER PREPROCEDURAL EXAMIN 06/29/2016 SURYA CABAN MD Ot 786.09 RESPIRATORY ABNORM NEC 06/29/2016 SURYA CABAN MD Ot 786.50 CHEST PAIN NOS 06/29/2016 ODRIS LAYTON MD Ot 721.0 CERVICAL SPONDYLOSIS 06/29/2016 DORIS LAYTON MD Ot 724.02 SPINAL STENOSIS, LUMBAR REG, W/OUT NEURO 06/29/2016 DORIS LAYTON MD Ot L02.11 CUTANEOUS ABSCESS OF NECK 06/29/2016 DORIS LAYTON MD Ot R59.0 LOCALIZED ENLARGED LYMPH NODES 06/29/2016 DORIS LAYTON MD Ot H53.2 DIPLOPIA 06/29/2016 Ot M75.101 UNSP ROTATR -CUFF TEAR/RUPTR OF RIGHT LEWIS 06/29/2016 KINJAL WEBER, DORIS Butcher Ot M47.892 OTHER SPONDYLOSIS, CERVICAL REGION 06/29/2016 JT FERNANDEZ DO, Ot E66.9 OBESITY, UNSPECIFIED 06/29/2016 JT FERNANDEZ DO, Ot F41.9 ANXIETY DISORDER, UNSPECIFIED 06/29/2016 JT FERNANDEZ DO Ot I20.9 ANGINA PECTORIS, UNSPECIFIED 06/29/2016 JT FERNANDEZ DO, Ot J44.9 CHRONIC OBSTRUCTIVE PULMONARY DISEASE, U 06/29/2016 JT FERNANDEZ DO, Ot J45.909 UNSPECIFIED ASTHMA, UNCOMPLICATED 06/29/2016 JT FERNANDEZ DO, Ot Z72.0 TOBACCO USE 06/29/2016 HUMZA, LARRY L GREEN MARKETING ANALYST Ot R10.11 RIGHT UPPER QUADRANT PAIN 06/29/2016 HUMZA LARRY L GREEN MARKETING ANALYST Ot R10.11 RIGHT UPPER QUADRANT PAIN 06/29/2016 GALINA WALKER MD Ot E11.9 TYPE 2 DIABETES MELLITUS WITHOUT COMPLIC 06/29/2016 GALINA WALEKR MD, Ot E78.00 PURE HYPERCHOLESTEROLEMIA, UNSPECIFIED 06/29/2016 GALINA WALKER MD Ot I10 ESSENTIAL (PRIMARY) HYPERTENSION 06/29/2016 GALINA WALKER MD, Ot I25.2 OLD MYOCARDIAL INFARCTION 06/29/2016 GALINA WALKER MD, Ot J44.9 CHRONIC OBSTRUCTIVE PULMONARY DISEASE, U 06/29/2016 GALINA WALKER MD Ot K21.0 GASTRO-ESOPHAGEAL REFLUX DISEASE WITH ES 06/29/2016 GALINA WALKER MD, Ot K29.70 GASTRITIS, UNSPECIFIED, WITHOUT BLEEDING 06/29/2016 GALINA WALKER MD, Ot K44.9 DIAPHRAGMATIC HERNIA WITHOUT OBSTRUCTION 06/29/2016 GALINA WALKER MD, Ot K63.5 POLYP OF COLON 06/29/2016 GALINA WALKER MD, Ot K64.1 SECOND DEGREE HEMORRHOIDS 06/29/2016 GALINA WALKER MD, Ot Z12.11 ENCOUNTER FOR SCREENING FOR MALIGNANT NE 06/29/2016 GALINA WALKER MD, Ot Z86.73 PRSNL HX OF TIA (TIA), AND CEREB INFRC W 06/30/2016 GALINA WALKER MD Ot E11.9 TYPE 2 DIABETES MELLITUS WITHOUT COMPLIC 06/30/2016 GALINA WALKER MD Ot E78.00 PURE HYPERCHOLESTEROLEMIA, UNSPECIFIED 06/30/2016 GALINA WALKER MD Ot I10 ESSENTIAL (PRIMARY) HYPERTENSION 06/30/2016 GALINA WALKER MD Ot I25.2 OLD MYOCARDIAL INFARCTION 06/30/2016 GALINA WALKER MD, Ot J44.9 CHRONIC OBSTRUCTIVE PULMONARY DISEASE, U 06/30/2016 GALINA WALKER MD Ot K21.0 GASTRO-ESOPHAGEAL REFLUX DISEASE WITH ES 06/30/2016 GALINA WALKER MD Ot K29.70 GASTRITIS, UNSPECIFIED, WITHOUT BLEEDING 06/30/2016 GALINA WALKER MD, Ot K44.9 DIAPHRAGMATIC HERNIA WITHOUT OBSTRUCTION 06/30/2016 GALINA WALKER MD Ot K63.5 POLYP OF COLON 06/30/2016 GALINA WALKER MD Ot K64.1 SECOND DEGREE HEMORRHOIDS 06/30/2016 GALINA WALKER MD, Ot Z12.11 ENCOUNTER FOR SCREENING FOR MALIGNANT NE 06/30/2016 GALINA WALKER MD, Ot Z86.73 PRSNL HX OF TIA (TIA), AND CEREB INFRC W 07/01/2016 GALINA WALKER MD, Ot E11.9 TYPE 2 DIABETES MELLITUS WITHOUT COMPLIC 07/01/2016 GALINA WALKER MD Ot E78.00 PURE HYPERCHOLESTEROLEMIA, UNSPECIFIED 07/01/2016 GALINA WALKER MD Ot I10 ESSENTIAL (PRIMARY) HYPERTENSION 07/01/2016 GALINA WALKER MD, Ot I25.2 OLD MYOCARDIAL INFARCTION 07/01/2016 GALINA WALKER MD, Ot J44.9 CHRONIC OBSTRUCTIVE PULMONARY DISEASE, U 07/01/2016 GALINA WALKER MD Ot K21.0 GASTRO-ESOPHAGEAL REFLUX DISEASE WITH ES 07/01/2016 GALINA WALKER MD Ot K29.70 GASTRITIS, UNSPECIFIED, WITHOUT BLEEDING 07/01/2016 GALINA WALKER MD Ot K44.9 DIAPHRAGMATIC HERNIA WITHOUT OBSTRUCTION 07/01/2016 GALINA WALKER MD Ot K63.5 POLYP OF COLON 07/01/2016 GALINA WALKER MD Ot K64.1 SECOND DEGREE HEMORRHOIDS 07/01/2016 KIDGALINA Moore MD, Ot Z12.11 ENCOUNTER FOR SCREENING FOR MALIGNANT NE 07/01/2016 GALINA WALKER MD, Ot Z86.73 PRSNL HX OF TIA (TIA), AND CEREB INFRC W 07/12/2016 MAGDA DIAZ MD, FACC FACP CCDS Ot I25.10 ATHSCL HEART DISEASE OF [place] CORONARY 07/12/2016 JOE WEBER FACC, ALI FACP CCDS Ot I45.19 OTHER RIGHT BUNDLE-BRANCH BLOCK 07/12/2016 JOE WEBER FACC, ALI FACP CCDS Ot J44.9 CHRONIC OBSTRUCTIVE PULMONARY DISEASE, U 07/12/2016 JOE WEBER FACC, ALI FACP CCDS Ot R06.09 OTHER FORMS OF DYSPNEA 07/12/2016 JOE WEBER FACC, ALI FACP CCDS Ot R07.89 OTHER CHEST PAIN 07/12/2016 JOE WEBER FACC, ALI FACP CCDS Ot Z72.0 TOBACCO USE 07/12/2016 JOE WEBER FACC, ALI FACP CCDS Ot Z79.899 OTHER ALF (CURRENT) DRUG THERAPY 07/12/2016 JOE WEBER FACC, MAGDA FACP CCDS Ot Z82.49 FAMILY HX OF ISCHEM HEART DIS AND OTH DI 07/12/2016 JOE WEBER FACC ALI FACP CCDS Ot Z86.73 PRSNL HX OF TIA (TIA), AND CEREB INFRC W 07/14/2016 GALINA WALKER MD, Ot E11.9 TYPE 2 DIABETES MELLITUS WITHOUT COMPLIC 07/14/2016 GALINA WALKER MD, Ot E78.00 PURE HYPERCHOLESTEROLEMIA, UNSPECIFIED 07/14/2016 GALINA WALKER MD, Ot I10 ESSENTIAL (PRIMARY) HYPERTENSION 07/14/2016 GALINA WALKER MD, Ot I25.2 OLD MYOCARDIAL INFARCTION 07/14/2016 GALINA WALKER MD, Ot J44.9 CHRONIC OBSTRUCTIVE PULMONARY DISEASE, U 07/14/2016 GALINA WALKER MD, Ot K21.0 GASTRO-ESOPHAGEAL REFLUX DISEASE WITH ES 07/14/2016 GALINA WALKER MD, Ot K29.70 GASTRITIS, UNSPECIFIED, WITHOUT BLEEDING 07/14/2016 GALINA WALKER MD, Ot K44.9 DIAPHRAGMATIC HERNIA WITHOUT OBSTRUCTION 07/14/2016 GALINA WALKER MD, Ot K63.5 POLYP OF COLON 07/14/2016 GALINA WALKER MD, Ot K64.1 SECOND DEGREE HEMORRHOIDS 07/14/2016 GALINA WALKER MD Ot Z12.11 ENCOUNTER FOR SCREENING FOR MALIGNANT NE 07/14/2016 GALINA WALKER MD Ot Z86.73 PRSNL HX OF TIA (TIA), AND CEREB INFRC W 07/14/2016 JOE WEBER FACC, ALI FACP CCDS Ot I25.10 ATHSCL HEART DISEASE OF [place] CORONARY 07/14/2016 JOE WEBER FACC, ALI FACP CCDS Ot I45.19 OTHER RIGHT BUNDLE-BRANCH BLOCK 07/14/2016 JOE GUILLENC, ALI FACP CCDS Ot J44.9 CHRONIC OBSTRUCTIVE PULMONARY DISEASE, U 07/14/2016 JOE WEBER FACC, ALI FACP CCDS Ot R06.09 OTHER FORMS OF DYSPNEA 07/14/2016 JOE WEBER FACC, ALI FACP CCDS Ot R07.89 OTHER CHEST PAIN 07/14/2016 JOE WEBER FACC, ALI FACP CCDS Ot Z72.0 TOBACCO USE 07/14/2016 JOE WEBER FACC, ALI FACP CCDS Ot Z79.899 OTHER AQUATIC SCIENTIST (CURRENT) DRUG THERAPY 07/14/2016 JOE WEBER FACNithya, ALI FACP CCDS Ot Z82.49 FAMILY HX OF ISCHEM HEART DIS AND OTH DI 07/14/2016 JOE WEBER FACC, ALI FACP CCDS Ot Z86.73 PRSNL HX OF TIA (TIA), AND CEREB INFRC W 07/19/2016 SURYA CABAN MD Ot 786.09 RESPIRATORY ABNORM NEC 07/19/2016 SURYA CABAN MD Ot 786.50 CHEST PAIN NOS 07/19/2016 DORIS LAYTON MD Ot 721.0 CERVICAL SPONDYLOSIS 07/19/2016 DORIS LAYTON MD Ot 724.02 SPINAL STENOSIS, LUMBAR REG, W/OUT NEURO 07/19/2016 DORIS LAYTON MD Ot L02.11 CUTANEOUS ABSCESS OF NECK 07/19/2016 DORIS LAYTON MD Ot R59.0 LOCALIZED ENLARGED LYMPH NODES 07/19/2016 DORIS LAYTON MD Ot H53.2 DIPLOPIA 07/19/2016 Ot M75.101 UNSP ROTATR -CUFF TEAR/RUPTR OF RIGHT [place] 07/19/2016 DORIS LAYTON MD Ot M47.892 OTHER SPONDYLOSIS, CERVICAL REGION 07/19/2016 JT FERNANDEZ DO Ot E66.9 OBESITY, UNSPECIFIED 07/19/2016 JT FERNANDEZ DO Ot F41.9 ANXIETY DISORDER, UNSPECIFIED 07/19/2016 JT FERNANDEZ DO Ot I20.9 ANGINA PECTORIS, UNSPECIFIED 07/19/2016 JT FERNANDEZ DO, Ot J44.9 CHRONIC OBSTRUCTIVE PULMONARY DISEASE, U 07/19/2016 JT FERNANDEZ DO, Ot J45.909 UNSPECIFIED ASTHMA, UNCOMPLICATED 07/19/2016 JT FERNANDEZ DO Ot Z72.0 TOBACCO USE 07/19/2016 LARRY CHING L GREEN MARKETING ANALYST Ot R10.11 RIGHT UPPER QUADRANT PAIN 07/19/2016 CINDY CHINGIN L GREEN MARKETING ANALYST Ot R10.11 RIGHT UPPER QUADRANT PAIN 07/20/2016 ARSH WEBER, SURYA Miramontes Ot 786.09 RESPIRATORY ABNORM NEC 07/20/2016 ARSH WEBER, SURYA Miramontes Ot 786.50 CHEST PAIN NOS 07/20/2016 DORIS LAYTON MD Ot 721.0 CERVICAL SPONDYLOSIS 07/20/2016 DORIS LAYTON MD Ot 724.02 SPINAL STENOSIS, LUMBAR REG, W/OUT NEURO 07/20/2016 DORIS LAYTON MD Ot L02.11 CUTANEOUS ABSCESS OF NECK 07/20/2016 DORIS LAYTON MD Ot R59.0 LOCALIZED ENLARGED LYMPH NODES 07/20/2016 DORIS LAYTON MD Ot H53.2 DIPLOPIA 07/20/2016 Ot M75.101 UNSP ROTATR -CUFF TEAR/RUPTR OF RIGHT [place] 07/20/2016 DORIS LAYTON MD Ot M47.892 OTHER SPONDYLOSIS, CERVICAL REGION 07/20/2016 JT FERNANDEZ DO Ot E66.9 OBESITY, UNSPECIFIED 07/20/2016 JT FERNANDEZ DO Ot F41.9 ANXIETY DISORDER, UNSPECIFIED 07/20/2016 JT FERNANDEZ DO Ot I20.9 ANGINA PECTORIS, UNSPECIFIED 07/20/2016 JT FERNANDEZ DO Ot J44.9 CHRONIC OBSTRUCTIVE PULMONARY DISEASE, U 07/20/2016 JT FERNANDEZ DO Ot J45.909 UNSPECIFIED ASTHMA, UNCOMPLICATED 07/20/2016 JT FERNANDEZ DO Ot Z72.0 TOBACCO USE 07/20/2016 HUMZACINDYCAL Elise GREEN MARKETING ANALYST Ot R10.11 RIGHT UPPER QUADRANT PAIN 07/20/2016 LARRY CHING GREEN MARKETING ANALYST Ot R10.11 RIGHT UPPER QUADRANT PAIN 07/20/2016 JT FERNANDEZ DO, Ot G47.33 OBSTRUCTIVE SLEEP APNEA (ADULT) (PEDIATR 07/21/2016 EMELIA GLOVER SKI TECHNICIAN Ot I72.4 ANEURYSM OF ARTERY OF LOWER EXTREMITY 07/21/2016 EMELIA GLOVER SKI TECHNICIAN Ot I97.610 POSTPROC HEMOR OF A CIRC SYS ORG FOLLOWI 07/21/2016 EMELIA GLOVER SKI TECHNICIAN Ot I72.4 ANEURYSM OF ARTERY OF LOWER EXTREMITY 07/21/2016 EMELIA GLOVER SKI TECHNICIAN Ot I97.610 POSTPROC HEMOR OF A CIRC SYS ORG FOLLOWI 07/25/2016 SURYA CABAN MD Ot 786.09 RESPIRATORY ABNORM NEC 07/25/2016 SURYA CABAN MD Ot 786.50 CHEST PAIN NOS 07/25/2016 DORIS LAYTON MD Ot 721.0 CERVICAL SPONDYLOSIS 07/25/2016 DORIS LAYTON MD Ot 724.02 SPINAL STENOSIS, LUMBAR REG, W/OUT NEURO 07/25/2016 DORIS LAYTON MD Ot L02.11 CUTANEOUS ABSCESS OF NECK 07/25/2016 DORIS LAYTON MD Ot R59.0 LOCALIZED ENLARGED LYMPH NODES 07/25/2016 DORIS LAYTON MD Ot H53.2 DIPLOPIA 07/25/2016 Ot M75.101 UNSP ROTATR -CUFF TEAR/RUPTR OF RIGHT LE[place] 07/25/2016 DORIS LAYTON MD Ot M47.892 OTHER SPONDYLOSIS, CERVICAL REGION 07/25/2016 JT FERNANDEZ DO Ot E66.9 OBESITY, UNSPECIFIED 07/25/2016 JT FERNANDEZ DO Ot F41.9 ANXIETY DISORDER, UNSPECIFIED 07/25/2016 JT FERNANDEZ DO Ot I20.9 ANGINA PECTORIS, UNSPECIFIED 07/25/2016 JT FERNANDEZ DO, Ot J44.9 CHRONIC OBSTRUCTIVE PULMONARY DISEASE, U 07/25/2016 JT FERNANDEZ DO, Ot J45.909 UNSPECIFIED ASTHMA, UNCOMPLICATED 07/25/2016 JT FERNANDEZ DO Ot Z72.0 TOBACCO USE 07/25/2016 JT FERNANDEZ DO, Ot G47.33 OBSTRUCTIVE SLEEP APNEA (ADULT) (PEDIATR 07/25/2016 LARRY CHING GREEN MARKETING ANALYST Ot R10.11 RIGHT UPPER QUADRANT PAIN 07/25/2016 HUMZALARRY Arik GREEN MARKETING ANALYST Ot R10.11 RIGHT UPPER QUADRANT PAIN 07/25/2016 EMELIA GLOVER SKI TECHNICIAN Ot I72.4 ANEURYSM OF ARTERY OF LOWER EXTREMITY 07/25/2016 EMELIA LGOVER SKI TECHNICIAN Ot I97.610 POSTPROC HEMOR OF A CIRC SYS ORG FOLLOWI 07/26/2016 SURYA CABAN MD Ot 786.09 RESPIRATORY ABNORM NEC 07/26/2016 SURYA CABAN MD Ot 786.50 CHEST PAIN NOS 07/26/2016 DORIS LAYTON MD Ot 721.0 CERVICAL SPONDYLOSIS 07/26/2016 DORIS LAYTON MD Ot 724.02 SPINAL STENOSIS, LUMBAR REG, W/OUT NEURO 07/26/2016 DORIS LAYTON MD Ot L02.11 CUTANEOUS ABSCESS OF NECK 07/26/2016 DORIS LAYTON MD Ot R59.0 LOCALIZED ENLARGED LYMPH NODES 07/26/2016 DORIS LAYTON MD Ot H53.2 DIPLOPIA 07/26/2016 Ot M75.101 UNSP ROTATR -CUFF TEAR/RUPTR OF RIGHT [place] 07/26/2016 DORIS LAYTON MD Ot M47.892 OTHER SPONDYLOSIS, CERVICAL REGION 07/26/2016 JT FERNANDEZ DO Ot E66.9 OBESITY, UNSPECIFIED 07/26/2016 JT FERNANDEZ DO Ot F41.9 ANXIETY DISORDER, UNSPECIFIED 07/26/2016 JT FERNANDEZ DO Ot I20.9 ANGINA PECTORIS, UNSPECIFIED 07/26/2016 JT FERNANDEZ DO Ot J44.9 CHRONIC OBSTRUCTIVE PULMONARY DISEASE, U 07/26/2016 JT FERNANDEZ DO Ot J45.909 UNSPECIFIED ASTHMA, UNCOMPLICATED 07/26/2016 JT FERNANDEZ DO Ot Z72.0 TOBACCO USE 07/26/2016 JIM DO, JT M Ot G47.33 OBSTRUCTIVE SLEEP APNEA (ADULT) (PEDIATR 07/26/2016 HUMZALARRY MIX GREEN MARKETING ANALYST Ot R10.11 RIGHT UPPER QUADRANT PAIN 07/26/2016 HUMZALARRY GREEN MARKETING ANALYST Ot R10.11 RIGHT UPPER QUADRANT PAIN 07/26/2016 EMELIA GLOVER SKI TECHNICIAN Ot I72.4 ANEURYSM OF ARTERY OF LOWER EXTREMITY 07/26/2016 EMELIA GLOVER SKI TECHNICIAN Ot I97.610 POSTPROC HEMOR OF A CIRC SYS ORG FOLLOWI 07/26/2016 JOE WEBER FACC, ALI FACP CCDS Ot I73.9 PERIPHERAL VASCULAR DISEASE, UNSPECIFIED 07/27/2016 JOE GUILLENC, ALI FACP CCDS Ot I73.9 PERIPHERAL VASCULAR DISEASE, UNSPECIFIED 07/27/2016 JOE WEBER FACC, ALI FACP CCDS Ot E66.09 OTHER OBESITY DUE TO EXCESS CALORIES 07/27/2016 JOE WEBER FACC, ALI FACP CCDS Ot E78.4 OTHER HYPERLIPIDEMIA 07/27/2016 JOE WEBER FACC, ALI FACP CCDS Ot I10 ESSENTIAL (PRIMARY) HYPERTENSION 07/27/2016 JOE GUILLENC, ALI FACP CCDS Ot J43.8 OTHER EMPHYSEMA 07/27/2016 JOE GUILLENC, ALI FACP CCDS Ot R06.02 SHORTNESS OF BREATH 07/27/2016 JOE GUILLENC, ALI FACP CCDS Ot R07.89 OTHER CHEST PAIN 07/27/2016 JOE WEBER FACC, ALI FACP CCDS Ot Z72.0 TOBACCO USE 07/27/2016 JOE GUILLENC, ALI FACP CCDS Ot Z86.79 PERSONAL HISTORY OF OTHER DISEASES OF 08/05/2016 JT FERNANDEZ DO Ot G47.33 OBSTRUCTIVE SLEEP APNEA (ADULT) (PEDIATR 08/05/2016 EMELIA GLOVER SKI TECHNICIAN Ot I72.4 ANEURYSM OF ARTERY OF LOWER EXTREMITY 08/05/2016 EMELIA GLOVER SKI TECHNICIAN Ot I97.610 POSTPROC HEMOR OF A CIRC SYS ORG FOLLOWI 08/11/2016 EMELIA GLOVER SKI TECHNICIAN Ot T81.719A COMPLICATION OF UNSP ARTERY FOLLOWING A 08/15/2016 SURYA CABAN MD Ot 786.09 RESPIRATORY ABNORM NEC 08/15/2016 SURYA CABAN MD Ot 786.50 CHEST PAIN NOS 08/15/2016 DORIS LAYTON MD Ot 721.0 CERVICAL SPONDYLOSIS 08/15/2016 DORIS LAYTON MD Ot 724.02 SPINAL STENOSIS, LUMBAR REG, W/OUT NEURO 08/15/2016 DORIS LAYTON MD Ot L02.11 CUTANEOUS ABSCESS OF NECK 08/15/2016 DORIS LAYTON MD Ot R59.0 LOCALIZED ENLARGED LYMPH NODES 08/15/2016 DORIS LAYTON MD Ot H53.2 DIPLOPIA 08/15/2016 Ot M75.101 UNSP ROTATR -CUFF TEAR/RUPTR OF RIGHT [place] 08/15/2016 DORIS LAYTON MD Ot M47.892 OTHER SPONDYLOSIS, CERVICAL REGION 08/15/2016 JT FERNANDEZ DO Ot E66.9 OBESITY, UNSPECIFIED 08/15/2016 JT FERNANDEZ DO Ot F41.9 ANXIETY DISORDER, UNSPECIFIED 08/15/2016 JT FERNANDEZ DO, Ot I20.9 ANGINA PECTORIS, UNSPECIFIED 08/15/2016 JT FERNANDEZ DO, Ot J44.9 CHRONIC OBSTRUCTIVE PULMONARY DISEASE, U 08/15/2016 JT FERNANDEZ DO, Ot J45.909 UNSPECIFIED ASTHMA, UNCOMPLICATED 08/15/2016 JT FERNANDEZ DO Ot Z72.0 TOBACCO USE 08/15/2016 JT FERNANDEZ DO, Ot G47.33 OBSTRUCTIVE SLEEP APNEA (ADULT) (PEDIATR 08/15/2016 LARRY CHING GREEN MARKETING ANALYST Ot R10.11 RIGHT UPPER QUADRANT PAIN 08/15/2016 LARRY CHING GREEN MARKETING ANALYST Ot R10.11 RIGHT UPPER QUADRANT PAIN 08/15/2016 JOE WEBER FACC, MAGDA FACP CCDS Ot I73.9 PERIPHERAL VASCULAR DISEASE, UNSPECIFIED 08/15/2016 JOE WEBER FACC, MAGDA FACP CCDS Ot E66.09 OTHER OBESITY DUE TO EXCESS CALORIES 08/15/2016 JOE WEBER FACC, MAGDA FACP CCDS Ot E78.4 OTHER HYPERLIPIDEMIA 08/15/2016 JOE WEBER FACC, MAGDA FACP CCDS Ot I10 ESSENTIAL (PRIMARY) HYPERTENSION 08/15/2016 JOE WEBER FACC, MAGDA FACP CCDS Ot J43.8 OTHER EMPHYSEMA 08/15/2016 JOE WEBER FACC, MAGDA FACP CCDS Ot R06.02 SHORTNESS OF BREATH 08/15/2016 JOE WEBER FACC, MAGDA FACP CCDS Ot R07.89 OTHER CHEST PAIN 08/15/2016 JOE WEBER FACC, MAGDA FACP CCDS Ot Z72.0 TOBACCO USE 08/15/2016 JOE WEBER FACC, MAGDA FACP CCDS Ot Z86.79 PERSONAL HISTORY OF OTHER DISEASES OF TH 08/15/2016 EMELIA GLOVER SKI TECHNICIAN Ot I72.4 ANEURYSM OF ARTERY OF LOWER EXTREMITY 08/15/2016 EMELIA GLOVER SKI TECHNICIAN Ot I97.610 POSTPROC HEMOR OF A CIRC SYS ORG FOLLOWI 08/15/2016 EMELIA GLOVER SKI TECHNICIAN Ot T81.719A COMPLICATION OF UNSP ARTERY FOLLOWING A 08/15/2016 NATHANIEL MONSIVAIS MD Ot M50.13 CERVICAL DISC DISORDER W RADICULOPATHY, 08/15/2016 NATHANIEL MONSIVAIS MD Ot Z79.899 OTHER AQUATIC SCIENTIST (CURRENT) DRUG THERAPY 08/24/2016 NATHANIEL MONSIVAIS MD Ot M50.13 CERVICAL DISC DISORDER W RADICULOPATHY, 08/24/2016 NATHANIEL MONSIVAIS MD Ot Z79.899 OTHER AQUATIC SCIENTIST (CURRENT) DRUG THERAPY 08/25/2016 EMELIA GLOVERP Ot T81.719A COMPLICATION OF UNSP ARTERY FOLLOWING A 08/29/2016 JOE WEBER FACC, MAGDA FACP CCDS Ot I73.9 PERIPHERAL VASCULAR DISEASE, UNSPECIFIED 08/29/2016 MAGDA DIAZ MD, FACC FACP CCDS Ot E66.09 OTHER OBESITY DUE TO EXCESS CALORIES 08/29/2016 MAGDA DIAZ MD, FACC FACP CCDS Ot E78.4 OTHER HYPERLIPIDEMIA 08/29/2016 MAGDA DIAZ MD, FACC FACP CCDS Ot I10 ESSENTIAL (PRIMARY) HYPERTENSION 08/29/2016 MAGDA DIAZ MD, FACC FACP CCDS Ot J43.8 OTHER EMPHYSEMA 08/29/2016 MAGDA DIAZ MD, FACC FACP CCDS Ot R06.02 SHORTNESS OF BREATH 08/29/2016 MAGDA DIAZ MD, FACC FACP CCDS Ot R07.89 OTHER CHEST PAIN 08/29/2016 MAGDA DIAZ MD, FACC FACP CCDS Ot Z72.0 TOBACCO USE 08/29/2016 JOE MD FACC, ALI FACP CCDS Ot Z86.79 PERSONAL HISTORY OF OTHER DISEASES OF TH 09/23/2016 NATHANIEL MONSIVAIS MD, Ot M50.13 CERVICAL DISC DISORDER W RADICULOPATHY, 09/23/2016 NATHANIEL MONSIVAIS MD, Ot Z79.899 OTHER ALF (CURRENT) DRUG THERAPY 09/23/2016 EMELIA GLOVER SKI TECHNICIAN Ot E78.4 OTHER HYPERLIPIDEMIA 09/23/2016 EMELIA GLOVER SKI TECHNICIAN Ot I10 ESSENTIAL (PRIMARY) HYPERTENSION 09/23/2016 EMELIA GLOVERP Ot I25.10 ATHSCL HEART DISEASE OF [place] CORONARY 09/23/2016 EMELIA GLOVERP Ot 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 09/29/2016 NATHANIEL MONSIVAIS MD, Ot M50.13 CERVICAL DISC DISORDER W RADICULOPATHY, 09/29/2016 NATHANIEL MONSIVAIS MD, Ot Z79.899 OTHER AQUATIC SCIENTIST (CURRENT) DRUG THERAPY 10/06/2016 MAN JOHNSON MD Ot F17.200 NICOTINE DEPENDENCE, UNSPECIFIED, UNCOMP 10/06/2016 MAN JOHNSON MD Ot J31.2 CHRONIC PHARYNGITIS 10/18/2016 SURYA CABAN MD Ot 786.09 RESPIRATORY ABNORM NEC 10/18/2016 SURYA CABAN MD Ot 786.50 CHEST PAIN NOS 10/18/2016 DORIS LAYTON MD Ot 721.0 CERVICAL SPONDYLOSIS 10/18/2016 DORIS LAYTON MD Ot 724.02 SPINAL STENOSIS, LUMBAR REG, W/OUT NEURO 10/18/2016 DORIS LAYTON MD Ot L02.11 CUTANEOUS ABSCESS OF NECK 10/18/2016 DORIS LAYTON MD Ot R59.0 LOCALIZED ENLARGED LYMPH NODES 10/18/2016 DORIS LAYTON MD, Ot H53.2 DIPLOPIA 10/18/2016 Ot M75.101 UNSP ROTATR -CUFF TEAR/RUPTR OF RIGHT [place] 10/18/2016 DORIS LAYTON MD, Ot M47.892 OTHER SPONDYLOSIS, CERVICAL REGION 10/18/2016 JT FERNANDEZ DO Ot E66.9 OBESITY, UNSPECIFIED 10/18/2016 JT FERNANDEZ DO Ot F41.9 ANXIETY DISORDER, UNSPECIFIED 10/18/2016 JT FERNANDEZ DO Ot I20.9 ANGINA PECTORIS, UNSPECIFIED 10/18/2016 JT FERNANDEZ DO Ot J44.9 CHRONIC OBSTRUCTIVE PULMONARY DISEASE, U 10/18/2016 JT FERNANDEZ DO Ot J45.909 UNSPECIFIED ASTHMA, UNCOMPLICATED 10/18/2016 JT FERNANDEZ DO Ot Z72.0 TOBACCO USE 10/18/2016 JT FERNANDEZ DO Ot G47.33 OBSTRUCTIVE SLEEP APNEA (ADULT) (PEDIATR 10/18/2016 LARRY CHING L GREEN MARKETING ANALYST Ot R10.11 RIGHT UPPER QUADRANT PAIN 10/18/2016 LARRY CHING L GREEN MARKETING ANALYST Ot R10.11 RIGHT UPPER QUADRANT PAIN 10/18/2016 JOE WEBER FACC, ALI FACP CCDS Ot I73.9 PERIPHERAL VASCULAR DISEASE, UNSPECIFIED 10/18/2016 JOE WEBER FACC, ALI FACP CCDS Ot E66.09 OTHER OBESITY DUE TO EXCESS CALORIES 10/18/2016 JOE WEBER FACC, ALI FACP CCDS Ot E78.4 OTHER HYPERLIPIDEMIA 10/18/2016 JOE WEBER FACC, ALI FACP CCDS Ot I10 ESSENTIAL (PRIMARY) HYPERTENSION 10/18/2016 JOE WEBER FACC, ALI FACP CCDS Ot J43.8 OTHER EMPHYSEMA 10/18/2016 JOE WEBER FACC, ALI FACP CCDS Ot R06.02 SHORTNESS OF BREATH 10/18/2016 JOE WEBER FACC, ALI FACP CCDS Ot R07.89 OTHER CHEST PAIN 10/18/2016 JOE WEBER FACC, ALI FACP CCDS Ot Z72.0 TOBACCO USE 10/18/2016 JOE WEBER FACC, ALI FACP CCDS Ot Z86.79 PERSONAL HISTORY OF OTHER DISEASES OF TH 10/18/2016 EMELIA GLOVER SKI TECHNICIAN Ot I72.4 ANEURYSM OF ARTERY OF LOWER EXTREMITY 10/18/2016 EMELIA GLOVER SKI TECHNICIAN Ot I97.610 POSTPROC HEMOR OF A CIRC SYS ORG FOLLOWI 10/18/2016 EMELIA GLOVER SKI TECHNICIAN Ot T81.719A COMPLICATION OF UNSP ARTERY FOLLOWING A 10/18/2016 EMELIA GLOVER SKI TECHNICIAN Ot E78.4 OTHER HYPERLIPIDEMIA 10/18/2016 EMELIA GLOVER SKI TECHNICIAN Ot I10 ESSENTIAL (PRIMARY) HYPERTENSION 10/18/2016 EMELIA GLOVER SKI TECHNICIAN Ot I25.10 ATHSCL HEART DISEASE OF [place] CORONARY 10/18/2016 EMELIA GLOVER SKI TECHNICIAN Ot 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 10/18/2016 ELIZABETH WEBER, MAN Dale Ot F17.200 NICOTINE DEPENDENCE, UNSPECIFIED, UNCOMP 10/18/2016 ELIZABETH WEBER, MAN Dale Ot J31.2 CHRONIC PHARYNGITIS 10/19/2016 BAIEMELIA CARY L SKI TECHNICIAN Ot E78.4 OTHER HYPERLIPIDEMIA 10/19/2016 BAIMAEMELIA L SKI TECHNICIAN Ot I10 ESSENTIAL (PRIMARY) HYPERTENSION 10/19/2016 BAIMAEMELIA L SKI TECHNICIAN Ot 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 10/19/2016 BAIEMELIA CARY L SKI TECHNICIAN Ot R06.02 SHORTNESS OF BREATH 10/19/2016 EMELIA GLOVER L SKI TECHNICIAN Ot Z72.0 TOBACCO USE 11/03/2016 BAIEMELIA CARY L SKI TECHNICIAN Ot E78.4 OTHER HYPERLIPIDEMIA 11/03/2016 BAIMAEMEILA L SKI TECHNICIAN Ot I10 ESSENTIAL (PRIMARY) HYPERTENSION 11/03/2016 EMELIA GLOVER L SKI TECHNICIAN Ot 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 11/03/2016 BAIMAEMELIA L SKI TECHNICIAN Ot R06.02 SHORTNESS OF BREATH 11/03/2016 BAIEMELIA CARY L SKI TECHNICIAN Ot Z72.0 TOBACCO USE 12/02/2016 DORIS LAYTON MD Ot M47.892 OTHER SPONDYLOSIS, CERVICAL REGION 04/14/2017 SURYA CABAN MD Ot 786.09 RESPIRATORY ABNORM NEC 04/14/2017 SURYA CABAN MD Ot 786.50 CHEST PAIN NOS 04/14/2017 DORIS LAYTON MD Ot 721.0 CERVICAL SPONDYLOSIS 04/14/2017 DORIS LAYTON MD Ot 724.02 SPINAL STENOSIS, LUMBAR REG, W/OUT NEURO 04/14/2017 DORIS LAYTON MD Ot L02.11 CUTANEOUS ABSCESS OF NECK 04/14/2017 DORIS LAYTON MD Ot R59.0 LOCALIZED ENLARGED LYMPH NODES 04/14/2017 DORIS LAYTON MD Ot H53.2 DIPLOPIA 04/14/2017 Ot M75.101 UNSP ROTATR -CUFF TEAR/RUPTR OF RIGHT LEWIS 04/14/2017 KINJAL WEBER, DORIS N Ot M47.892 OTHER SPONDYLOSIS, CERVICAL REGION 04/14/2017 JT FERNANDEZ DO Ot E66.9 OBESITY, UNSPECIFIED 04/14/2017 JT FERNANDEZ DO Ot F41.9 ANXIETY DISORDER, UNSPECIFIED 04/14/2017 JT FERNANDEZ DO Ot I20.9 ANGINA PECTORIS, UNSPECIFIED 04/14/2017 JT FERNANDEZ DO Ot J44.9 CHRONIC OBSTRUCTIVE PULMONARY DISEASE, U 04/14/2017 JT FERNANDEZ DO Ot J45.909 UNSPECIFIED ASTHMA, UNCOMPLICATED 04/14/2017 JT FERNANDEZ DO Ot Z72.0 TOBACCO USE 04/14/2017 JT FERNANDEZ DO Ot G47.33 OBSTRUCTIVE SLEEP APNEA (ADULT) (PEDIATR 04/14/2017 LARRY CHING GREEN MARKETING ANALYST Ot R10.11 RIGHT UPPER QUADRANT PAIN 04/14/2017 LARRY CHING GREEN MARKETING ANALYST Ot R10.11 RIGHT UPPER QUADRANT PAIN 04/14/2017 JOE WEBER FACC, MAGDA FACP CCDS Ot I73.9 PERIPHERAL VASCULAR DISEASE, UNSPECIFIED 04/14/2017 JOE WEBER FACC, ALI FACP CCDS Ot E66.09 OTHER OBESITY DUE TO EXCESS CALORIES 04/14/2017 JOE WEBER FACC, ALI FACP CCDS Ot E78.4 OTHER HYPERLIPIDEMIA 04/14/2017 JOE WEBER FACC, ALI FACP CCDS Ot I10 ESSENTIAL (PRIMARY) HYPERTENSION 04/14/2017 JOE WEBER FACC, MAGDA FACP CCDS Ot J43.8 OTHER EMPHYSEMA 04/14/2017 OJE WEBER FACC, ALI FACP CCDS Ot R06.02 SHORTNESS OF BREATH 04/14/2017 JOE WEBER FACC, ALI FACP CCDS Ot R07.89 OTHER CHEST PAIN 04/14/2017 JOE WEBER FACC, ALI FACP CCDS Ot Z72.0 TOBACCO USE 04/14/2017 JOE WEBER FACC, ALI FACP CCDS Ot Z86.79 PERSONAL HISTORY OF OTHER DISEASES OF TH 04/14/2017 EMELIA GLOVER SKI TECHNICIAN Ot I72.4 ANEURYSM OF ARTERY OF LOWER EXTREMITY 04/14/2017 EMELIA GLOVER SKI TECHNICIAN Ot I97.610 POSTPROC HEMOR OF A CIRC SYS ORG FOLLOWI 04/14/2017 EMELIA GLOVER SKI TECHNICIAN Ot T81.719A COMPLICATION OF UNSP ARTERY FOLLOWING A 04/14/2017 EMELIA GLOVER L SKI TECHNICIAN Ot E78.4 OTHER HYPERLIPIDEMIA 04/14/2017 BAIMA EMELIA L SKI TECHNICIAN Ot I10 ESSENTIAL (PRIMARY) HYPERTENSION 04/14/2017 EMELIA GLOVER L SKI TECHNICIAN Ot I25.10 ATHSCL HEART DISEASE OF [place] CORONARY 04/14/2017 NANYEMELIA CARY L SKI TECHNICIAN Ot 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 04/14/2017 ELIZABETH WEBER, MAN Dale Ot F17.200 NICOTINE DEPENDENCE, UNSPECIFIED, UNCOMP 04/14/2017 ELIZABETH WEBER, MAN Dale Ot J31.2 CHRONIC PHARYNGITIS 04/14/2017 NANYEMELIA CARY L SKI TECHNICIAN Ot E78.4 OTHER HYPERLIPIDEMIA 04/14/2017 BAIEMELIA CARY L SKI TECHNICIAN Ot I10 ESSENTIAL (PRIMARY) HYPERTENSION 04/14/2017 EMELIA GLOVER L SKI TECHNICIAN Ot 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 04/14/2017 BAIEMELIA CARY L SKI TECHNICIAN Ot R06.02 SHORTNESS OF BREATH 04/14/2017 EMELIA GLOVER L SKI TECHNICIAN Ot Z72.0 TOBACCO USE 04/14/2017 KINJAL WEBER, DORIS Butcher Ot M47.892 OTHER SPONDYLOSIS, CERVICAL REGION 05/02/2017 EMELIA GLOVER L SKI TECHNICIAN Ot E78.4 OTHER HYPERLIPIDEMIA 05/02/2017 BAIMA EMELIA L SKI TECHNICIAN Ot I10 ESSENTIAL (PRIMARY) HYPERTENSION 07/05/2017 GALINA WALKER MD Ot D17.9 BENIGN LIPOMATOUS NEOPLASM, UNSPECIFIED 07/05/2017 GALINA WALKER MD Ot Z01.818 ENCOUNTER FOR OTHER PREPROCEDURAL EXAMIN 07/06/2017 GALINA WALKER MD Ot D17.9 BENIGN LIPOMATOUS NEOPLASM, UNSPECIFIED 07/06/2017 GALINA WALKER MD Ot Z01.818 ENCOUNTER FOR OTHER PREPROCEDURAL EXAMIN 07/13/2017 GALINA WALKER MD Ot D17.1 BENIGN LIPOMATOUS NEOPLASM OF SKIN, SUBC 07/13/2017 GALINA WALKER MD Ot E11.43 TYPE 2 DIABETES W DIABETIC AUTONOMIC (PO 07/13/2017 KIDO MD, TAKAAKI Ot E78.00 PURE HYPERCHOLESTEROLEMIA, UNSPECIFIED 07/13/2017 GALINA WALKER MD Ot F17.210 NICOTINE DEPENDENCE, CIGARETTES, UNCOMPL 07/13/2017 GALINA WALKER MD Ot F32.9 MAJOR DEPRESSIVE DISORDER, SINGLE EPISOD 07/13/2017 GALINA WALKER MD Ot I10 ESSENTIAL (PRIMARY) HYPERTENSION 07/13/2017 GALINA WALKER MD, Ot I25.2 OLD MYOCARDIAL INFARCTION 07/13/2017 GALINA WALKER MD, Ot J44.9 CHRONIC OBSTRUCTIVE PULMONARY DISEASE, U 07/13/2017 GALINA WALKER MD, Ot K21.9 GASTRO-ESOPHAGEAL REFLUX DISEASE WITHOUT 07/13/2017 GALINA WALKER MD, Ot Z79.52 ALF (CURRENT) USE OF SYSTEMIC STER 07/13/2017 GALINA WALKER MD, Ot Z79.899 OTHER AQUATIC SCIENTIST (CURRENT) DRUG THERAPY 07/17/2017 GALINA WALKER MD Ot D17.1 BENIGN LIPOMATOUS NEOPLASM OF SKIN, SUBC 07/17/2017 GALINA WALKER MD Ot E11.43 TYPE 2 DIABETES W DIABETIC AUTONOMIC (PO 07/17/2017 GALINA WALKER MD Ot E78.00 PURE HYPERCHOLESTEROLEMIA, UNSPECIFIED 07/17/2017 GALINA WALKER MD Ot F17.210 NICOTINE DEPENDENCE, CIGARETTES, UNCOMPL 07/17/2017 GALINA WALKER MD, Ot F32.9 MAJOR DEPRESSIVE DISORDER, SINGLE EPISOD 07/17/2017 GALINA WALKER MD Ot I10 ESSENTIAL (PRIMARY) HYPERTENSION 07/17/2017 GALINA WALKER MD, Ot I25.2 OLD MYOCARDIAL INFARCTION 07/17/2017 GALINA WALKER MD, Ot J44.9 CHRONIC OBSTRUCTIVE PULMONARY DISEASE, U 07/17/2017 GALINA WALKER MD Ot K21.9 GASTRO-ESOPHAGEAL REFLUX DISEASE WITHOUT 07/17/2017 GALINA WALKER MD Ot Z79.52 ALF (CURRENT) USE OF SYSTEMIC STER 07/17/2017 GALINA WALKER MD, Ot Z79.899 OTHER AQUATIC SCIENTIST (CURRENT) DRUG THERAPY 08/16/2017 JOE WEBER FACNithya, MAGDA GUILLENP CCDS Ot E11.9 TYPE 2 DIABETES MELLITUS WITHOUT COMPLIC 08/16/2017 JOE WEBER FACNithya, ALI FACP CCDS Ot E66.9 OBESITY, UNSPECIFIED 08/16/2017 JOE WEBER FAC, ALI FACP CCDS Ot G47.34 IDIO SLEEP RELATED NONOBSTRUCTIVE ALVEOL 08/16/2017 JOE WEBER FACC, ALI FACP CCDS Ot I25.10 ATHSCL HEART DISEASE OF [place] CORONARY 08/16/2017 JOE WEBER FACC, ALI FACP CCDS Ot J43.8 OTHER EMPHYSEMA 08/16/2017 JOE WEBER FACC, ALI FACP CCDS Ot R06.02 SHORTNESS OF BREATH 08/16/2017 JOE WEBER FACC, ALI FACP CCDS Ot R07.89 OTHER CHEST PAIN 08/16/2017 JOE WEBER FACC, ALI FACP CCDS Ot R42 DIZZINESS AND GIDDINESS 08/16/2017 JOE WEBER FACC, MAGDA FACP CCDS Ot Z72.0 TOBACCO USE 08/21/2017 MAN ALVARES MD, Ot E11.622 TYPE 2 DIABETES MELLITUS WITH OTHER SKIN 08/21/2017 MAN ALVARES MD, Ot E66.01 MORBID (SEVERE) OBESITY DUE TO EXCESS CA 08/21/2017 MAN ALVARES MD, Ot J44.9 CHRONIC OBSTRUCTIVE PULMONARY DISEASE, U 08/21/2017 MAN ALVARES MD, Ot L76.34 POSTPROC SEROMA OF SKIN, SUBCU FOLLOWING 08/21/2017 MAN ALVARES MD, Ot L98.492 NON-PRS CHRONIC ULCER OF SKIN OF SITES W 08/21/2017 MAN ALVARES MD, Ot T65.222A TOXIC EFFECT OF TOBACCO CIGARETTES, SELF 08/21/2017 MAN ALVARES MD, Ot T81.31XA DISRUPTION OF EXTERNAL OPERATION (SURGIC 08/28/2017 DORIS LAYTON MD, Ot I25.84 CORONARY ATHEROSCLEROSIS DUE TO CALCIFIE 08/28/2017 DORIS LAYTON MD, Ot J43.9 EMPHYSEMA, UNSPECIFIED 08/28/2017 DORIS LAYTON MD, Ot J84.10 PULMONARY FIBROSIS, UNSPECIFIED 08/28/2017 DORIS LAYTON MD, Ot I25.84 CORONARY ATHEROSCLEROSIS DUE TO CALCIFIE 08/28/2017 DORIS LAYTON MD, Ot J43.9 EMPHYSEMA, UNSPECIFIED 08/28/2017 DORIS LAYTON MD, Ot J84.10 PULMONARY FIBROSIS, UNSPECIFIED 08/28/2017 MAN ALVARES MD, Ot E11.622 TYPE 2 DIABETES MELLITUS WITH OTHER SKIN 08/28/2017 MAN ALVARES MD, Ot E66.01 MORBID (SEVERE) OBESITY DUE TO EXCESS CA 08/28/2017 MAN ALVARES MD, Ot J44.9 CHRONIC OBSTRUCTIVE PULMONARY DISEASE, U 08/28/2017 MAN ALVARES MD Ot L76.34 POSTPROC SEROMA OF SKIN, SUBCU FOLLOWING 08/28/2017 MAN ALVARES MD, Ot L98.492 NON-PRS CHRONIC ULCER OF SKIN OF SITES W 08/28/2017 MAN ALVARES MD, Ot T65.222A TOXIC EFFECT OF TOBACCO CIGARETTES, SELF 08/28/2017 MAN ALVARES MD, Ot T81.31XA DISRUPTION OF EXTERNAL OPERATION (SURGIC 08/29/2017 MAN ALVARES MD, Ot E11.622 TYPE 2 DIABETES MELLITUS WITH OTHER SKIN 08/29/2017 MAN ALVARES MD, Ot E66.01 MORBID (SEVERE) OBESITY DUE TO EXCESS CA 08/29/2017 MAN ALVARES MD, Ot J44.9 CHRONIC OBSTRUCTIVE PULMONARY DISEASE, U 08/29/2017 MAN ALAVRES MD, Ot L98.492 NON-PRS CHRONIC ULCER OF SKIN OF SITES W 08/29/2017 MAN ALVARES MD, Ot T65.222A TOXIC EFFECT OF TOBACCO CIGARETTES, SELF 08/29/2017 MAN ALVARES MD, Ot T81.31XA DISRUPTION OF EXTERNAL OPERATION (SURGIC 08/29/2017 MAN ALVARES MD Ot Z68.35 BODY MASS INDEX (BMI) 35.0-35.9, ADULT 09/01/2017 DYLAN PRADHAN MD, Ot E11.622 TYPE 2 DIABETES MELLITUS WITH OTHER SKIN 09/01/2017 DYLAN PRADHAN MD, Ot E66.01 MORBID (SEVERE) OBESITY DUE TO EXCESS CA 09/01/2017 DYLAN PRADHAN MD, Ot J44.9 CHRONIC OBSTRUCTIVE PULMONARY DISEASE, U 09/01/2017 DYLAN PRADHAN MD, Ot L98.492 NON-PRS CHRONIC ULCER OF SKIN OF SITES W 09/01/2017 DYLAN PRADHAN MD, Ot T65.222A TOXIC EFFECT OF TOBACCO CIGARETTES, SELF 09/01/2017 DYLAN PRADHAN MD, Ot T81.31XA DISRUPTION OF EXTERNAL OPERATION (SURGIC 09/01/2017 DYLAN PRADHAN MD, Ot Z68.35 BODY MASS INDEX (BMI) 35.0-35.9, ADULT 09/05/2017 MAN ALVARES MD, Ot E11.622 TYPE 2 DIABETES MELLITUS WITH OTHER SKIN 09/05/2017 MAN ALVARES MD, Ot E66.01 MORBID (SEVERE) OBESITY DUE TO EXCESS CA 09/05/2017 MAN ALVARES MD, Ot J44.9 CHRONIC OBSTRUCTIVE PULMONARY DISEASE, U 09/05/2017 MAN ALVARES MD, Ot L98.492 NON-PRS CHRONIC ULCER OF SKIN OF SITES W 09/05/2017 MAN ALVARES MD, Ot T65.222A TOXIC EFFECT OF TOBACCO CIGARETTES, SELF 09/05/2017 MAN ALVARES MD, Ot T81.31XA DISRUPTION OF EXTERNAL OPERATION (SURGIC 09/05/2017 MAN ALVARES MD, Ot Z68.35 BODY MASS INDEX (BMI) 35.0-35.9, ADULT 09/10/2017 MAN ALVARES MD, Ot E11.622 TYPE 2 DIABETES MELLITUS WITH OTHER SKIN 09/10/2017 MAN ALVARES MD, Ot E66.01 MORBID (SEVERE) OBESITY DUE TO EXCESS CA 09/10/2017 MAN ALVARES MD, Ot J44.9 CHRONIC OBSTRUCTIVE PULMONARY DISEASE, U 09/10/2017 MAN ALVARES MD, Ot L98.492 NON-PRS CHRONIC ULCER OF SKIN OF SITES W 09/10/2017 MAN ALVARES MD, Ot T65.222A TOXIC EFFECT OF TOBACCO CIGARETTES, SELF 09/10/2017 MAN ALVARES MD, Ot T81.31XA DISRUPTION OF EXTERNAL OPERATION (SURGIC 09/10/2017 MAN ALVARES MD, Ot Z68.35 BODY MASS INDEX (BMI) 35.0-35.9, ADULT 09/12/2017 MAN ALVARES MD, Ot E11.622 TYPE 2 DIABETES MELLITUS WITH OTHER SKIN 09/12/2017 MAN ALVARES MD, Ot E66.01 MORBID (SEVERE) OBESITY DUE TO EXCESS CA 09/12/2017 MAN ALVARES MD, Ot J44.9 CHRONIC OBSTRUCTIVE PULMONARY DISEASE, U 09/12/2017 MAN ALVARES MD, Ot L98.492 NON-PRS CHRONIC ULCER OF SKIN OF SITES W 09/12/2017 MAN ALVARES MD, Ot T81.31XA DISRUPTION OF EXTERNAL OPERATION (SURGIC 09/12/2017 MAN ALVARES MD, Ot Z68.35 BODY MASS INDEX (BMI) 35.0-35.9, ADULT 09/12/2017 MAN ALVARES MD, Ot E11.622 TYPE 2 DIABETES MELLITUS WITH OTHER SKIN 09/12/2017 MAN ALVARES MD, Ot E66.01 MORBID (SEVERE) OBESITY DUE TO EXCESS CA 09/12/2017 MAN ALVARES MD, Ot J44.9 CHRONIC OBSTRUCTIVE PULMONARY DISEASE, U 09/12/2017 MAN ALVARES MD, Ot L98.492 NON-PRS CHRONIC ULCER OF SKIN OF SITES W 09/12/2017 MAN ALVARES MD, Ot T81.31XA DISRUPTION OF EXTERNAL OPERATION (SURGIC 09/12/2017 MAN ALVARES MD, Ot Z68.35 BODY MASS INDEX (BMI) 35.0-35.9, ADULT 09/19/2017 MAN ALVARES MD, Ot E11.622 TYPE 2 DIABETES MELLITUS WITH OTHER SKIN 09/19/2017 MAN ALVARES MD, Ot E66.01 MORBID (SEVERE) OBESITY DUE TO EXCESS CA 09/19/2017 MAN ALVARES MD, Ot J44.9 CHRONIC OBSTRUCTIVE PULMONARY DISEASE, U 09/19/2017 MAN ALVARES MD, Ot L98.492 NON-PRS CHRONIC ULCER OF SKIN OF SITES W 09/19/2017 MAN ALVARES MD, Ot T81.31XA DISRUPTION OF EXTERNAL OPERATION (SURGIC 09/19/2017 MAN ALVARES MD Ot Z68.35 BODY MASS INDEX (BMI) 35.0-35.9, ADULT 09/27/2017 MAN ALVARES MD, Ot E11.622 TYPE 2 DIABETES MELLITUS WITH OTHER SKIN 09/27/2017 MAN ALVARES MD, Ot E66.01 MORBID (SEVERE) OBESITY DUE TO EXCESS CA 09/27/2017 MAN ALVARES MD, Ot J44.9 CHRONIC OBSTRUCTIVE PULMONARY DISEASE, U 09/27/2017 MAN ALVARES MD, Ot L98.492 NON-PRS CHRONIC ULCER OF SKIN OF SITES W 09/27/2017 MAN ALVARES MD, Ot T81.31XA DISRUPTION OF EXTERNAL OPERATION (SURGIC 09/27/2017 MAN ALVARES MD, Ot Z68.35 BODY MASS INDEX (BMI) 35.0-35.9, ADULT 10/05/2017 MAN ALVARES MD, Ot E11.622 TYPE 2 DIABETES MELLITUS WITH OTHER SKIN 10/05/2017 GIORGIO MD, MAN G Ot E66.01 MORBID (SEVERE) OBESITY DUE TO EXCESS CA 10/05/2017 MAN ALVARES MD, Ot J44.9 CHRONIC OBSTRUCTIVE PULMONARY DISEASE, U 10/05/2017 MAN ALVARES MD, Ot L98.492 NON-PRS CHRONIC ULCER OF SKIN OF SITES W 10/05/2017 MAN ALVARES MD, Ot T81.31XA DISRUPTION OF EXTERNAL OPERATION (SURGIC 10/05/2017 MAN ALVARES MD, Ot Z68.35 BODY MASS INDEX (BMI) 35.0-35.9, ADULT 10/10/2017 MAN ALVARES MD, Ot E11.622 TYPE 2 DIABETES MELLITUS WITH OTHER SKIN 10/10/2017 MAN ALVARES MD, Ot E66.01 MORBID (SEVERE) OBESITY DUE TO EXCESS CA 10/10/2017 MAN ALVARES MD, Ot J44.9 CHRONIC OBSTRUCTIVE PULMONARY DISEASE, U 10/10/2017 MAN ALVARES MD, Ot L98.492 NON-PRS CHRONIC ULCER OF SKIN OF SITES W 10/10/2017 MAN ALVARES MD, Ot T81.31XA DISRUPTION OF EXTERNAL OPERATION (SURGIC 10/10/2017 MAN ALVARES MD, Ot Z68.35 BODY MASS INDEX (BMI) 35.0-35.9, ADULT 10/11/2017 MAN ALVARES MD, Ot E11.622 TYPE 2 DIABETES MELLITUS WITH OTHER SKIN 10/11/2017 MAN ALVARES MD, Ot E66.01 MORBID (SEVERE) OBESITY DUE TO EXCESS CA 10/11/2017 MAN ALVARES MD, Ot J44.9 CHRONIC OBSTRUCTIVE PULMONARY DISEASE, U 10/11/2017 MAN ALVARES MD, Ot L98.492 NON-PRS CHRONIC ULCER OF SKIN OF SITES W 10/11/2017 MAN ALVARES MD, Ot T81.31XA DISRUPTION OF EXTERNAL OPERATION (SURGIC 10/11/2017 MAN ALVARES MD, Ot Z68.35 BODY MASS INDEX (BMI) 35.0-35.9, ADULT 10/13/2017 MAN ALVARES MD, Ot E11.622 TYPE 2 DIABETES MELLITUS WITH OTHER SKIN 10/13/2017 MAN ALVARES MD, Ot E66.01 MORBID (SEVERE) OBESITY DUE TO EXCESS CA 10/13/2017 MAN ALVARES MD, Ot J44.9 CHRONIC OBSTRUCTIVE PULMONARY DISEASE, U 10/13/2017 MAN ALVARES MD, Ot L98.492 NON-PRS CHRONIC ULCER OF SKIN OF SITES W 10/13/2017 MAN ALVARES MD, Ot T81.31XA DISRUPTION OF EXTERNAL OPERATION (SURGIC 10/13/2017 MAN ALVARES MD, Ot Z68.35 BODY MASS INDEX (BMI) 35.0-35.9, ADULT 10/17/2017 MAN ALVARES MD, Ot E11.622 TYPE 2 DIABETES MELLITUS WITH OTHER SKIN 10/17/2017 MAN ALVARES MD, Ot E66.01 MORBID (SEVERE) OBESITY DUE TO EXCESS CA 10/17/2017 MAN ALVARES MD, Ot J44.9 CHRONIC OBSTRUCTIVE PULMONARY DISEASE, U 10/17/2017 MAN ALVARES MD, Ot L98.492 NON-PRS CHRONIC ULCER OF SKIN OF SITES W 10/17/2017 MAN ALVARES MD, Ot T81.31XA DISRUPTION OF EXTERNAL OPERATION (SURGIC 10/17/2017 MAN ALVARES MD, Ot Z68.35 BODY MASS INDEX (BMI) 35.0-35.9, ADULT 10/18/2017 MAN ALVARES MD, Ot E11.622 TYPE 2 DIABETES MELLITUS WITH OTHER SKIN 10/18/2017 MAN ALVARES MD, Ot E66.01 MORBID (SEVERE) OBESITY DUE TO EXCESS CA 10/18/2017 MAN ALVARES MD, Ot J44.9 CHRONIC OBSTRUCTIVE PULMONARY DISEASE, U 10/18/2017 MAN ALVARES MD, Ot L98.492 NON-PRS CHRONIC ULCER OF SKIN OF SITES W 10/18/2017 MAN ALVARES MD, Ot T81.31XA DISRUPTION OF EXTERNAL OPERATION (SURGIC 10/18/2017 MAN ALVARES MD, Ot Z68.35 BODY MASS INDEX (BMI) 35.0-35.9, ADULT 10/18/2017 MAN ALVARES MD, Ot E11.622 TYPE 2 DIABETES MELLITUS WITH OTHER SKIN 10/18/2017 MAN ALVARES MD, Ot E66.01 MORBID (SEVERE) OBESITY DUE TO EXCESS CA 10/18/2017 MAN ALVARES MD, Ot J44.9 CHRONIC OBSTRUCTIVE PULMONARY DISEASE, U 10/18/2017 MAN ALVARES MD, Ot L98.492 NON-PRS CHRONIC ULCER OF SKIN OF SITES W 10/18/2017 MAN ALVARES MD, Ot T81.31XA DISRUPTION OF EXTERNAL OPERATION (SURGIC 10/18/2017 MAN ALVARES MD, Ot Z68.35 BODY MASS INDEX (BMI) 35.0-35.9, ADULT 10/19/2017 MAN ALVARES MD, Ot E11.622 TYPE 2 DIABETES MELLITUS WITH OTHER SKIN 10/19/2017 MAN ALVARES MD, Ot E66.01 MORBID (SEVERE) OBESITY DUE TO EXCESS CA 10/19/2017 MAN ALVARES MD, Ot J44.9 CHRONIC OBSTRUCTIVE PULMONARY DISEASE, U 10/19/2017 MAN ALVARES MD, Ot L98.492 NON-PRS CHRONIC ULCER OF SKIN OF SITES W 10/19/2017 MAN ALVARES MD, Ot T81.31XA DISRUPTION OF EXTERNAL OPERATION (SURGIC 10/19/2017 MAN ALVARES MD, Ot Z68.35 BODY MASS INDEX (BMI) 35.0-35.9, ADULT 10/26/2017 MAN ALVARES MD, Ot E11.621 TYPE 2 DIABETES MELLITUS WITH FOOT ULCER 10/26/2017 MAN ALVARES MD, Ot E66.01 MORBID (SEVERE) OBESITY DUE TO EXCESS CA 10/26/2017 MAN ALVARES MD, Ot J44.9 CHRONIC OBSTRUCTIVE PULMONARY DISEASE, U 10/26/2017 MAN ALVARES MD, Ot L98.492 NON-PRS CHRONIC ULCER OF SKIN OF SITES W 10/26/2017 MAN ALVARES MD, Ot T81.31XA DISRUPTION OF EXTERNAL OPERATION (SURGIC 10/26/2017 MAN ALVARES MD, Ot Z68.35 BODY MASS INDEX (BMI) 35.0-35.9, ADULT 10/27/2017 MAN ALVARES MD, Ot E11.622 TYPE 2 DIABETES MELLITUS WITH OTHER SKIN 10/27/2017 MAN ALVARES MD, Ot E66.01 MORBID (SEVERE) OBESITY DUE TO EXCESS CA 10/27/2017 MAN ALVARES MD, Ot J44.9 CHRONIC OBSTRUCTIVE PULMONARY DISEASE, U 10/27/2017 MAN ALVARES MD, Ot L98.492 NON-PRS CHRONIC ULCER OF SKIN OF SITES W 10/27/2017 MAN ALVARES MD, Ot T81.31XA DISRUPTION OF EXTERNAL OPERATION (SURGIC 10/27/2017 MAN ALVARES MD, Ot Z68.35 BODY MASS INDEX (BMI) 35.0-35.9, ADULT 10/29/2017 MAN ALVARES MD, Ot E11.621 TYPE 2 DIABETES MELLITUS WITH FOOT ULCER 10/29/2017 MAN ALVARES MD, Ot E66.01 MORBID (SEVERE) OBESITY DUE TO EXCESS CA 10/29/2017 MAN ALVARES MD, Ot J44.9 CHRONIC OBSTRUCTIVE PULMONARY DISEASE, U 10/29/2017 MAN ALVARES MD, Ot L98.492 NON-PRS CHRONIC ULCER OF SKIN OF SITES W 10/29/2017 MAN ALVARES MD, Ot T81.31XA DISRUPTION OF EXTERNAL OPERATION (SURGIC 10/29/2017 MAN ALVARES MD, Ot Z68.35 BODY MASS INDEX (BMI) 35.0-35.9, ADULT 11/01/2017 MAN ALVARES MD, Ot E11.622 TYPE 2 DIABETES MELLITUS WITH OTHER SKIN 11/01/2017 MAN ALVARES MD, Ot E66.01 MORBID (SEVERE) OBESITY DUE TO EXCESS CA 11/01/2017 MAN ALVARES MD, Ot J44.9 CHRONIC OBSTRUCTIVE PULMONARY DISEASE, U 11/01/2017 MAN ALVARES MD, Ot L98.492 NON-PRS CHRONIC ULCER OF SKIN OF SITES W 11/01/2017 MAN ALVARES MD, Ot T81.31XA DISRUPTION OF EXTERNAL OPERATION (SURGIC 11/01/2017 MAN ALVARES MD, Ot Z68.35 BODY MASS INDEX (BMI) 35.0-35.9, ADULT 11/01/2017 MAN ALVARES MD, Ot E11.622 TYPE 2 DIABETES MELLITUS WITH OTHER SKIN 11/01/2017 MAN ALVARES MD, Ot E66.01 MORBID (SEVERE) OBESITY DUE TO EXCESS CA 11/01/2017 MAN ALVARES MD, Ot J44.9 CHRONIC OBSTRUCTIVE PULMONARY DISEASE, U 11/01/2017 MAN ALVARES MD, Ot L98.492 NON-PRS CHRONIC ULCER OF SKIN OF SITES W 11/01/2017 MAN ALVARES MD, Ot T81.31XA DISRUPTION OF EXTERNAL OPERATION (SURGIC 11/01/2017 MAN ALVARES MD, Ot Z68.35 BODY MASS INDEX (BMI) 35.0-35.9, ADULT 11/02/2017 MAN ALVARES MD, Ot E11.622 TYPE 2 DIABETES MELLITUS WITH OTHER SKIN 11/02/2017 MAN ALVARES MD, Ot E66.01 MORBID (SEVERE) OBESITY DUE TO EXCESS CA 11/02/2017 MAN ALVARES MD, Ot J44.9 CHRONIC OBSTRUCTIVE PULMONARY DISEASE, U 11/02/2017 MAN ALVARES MD, Ot L98.492 NON-PRS CHRONIC ULCER OF SKIN OF SITES W 11/02/2017 MAN ALVARES MD, Ot T81.31XA DISRUPTION OF EXTERNAL OPERATION (SURGIC 11/02/2017 MAN ALVARES MD, Ot Z68.35 BODY MASS INDEX (BMI) 35.0-35.9, ADULT 11/02/2017 MAN ALVARES MD, Ot E11.622 TYPE 2 DIABETES MELLITUS WITH OTHER SKIN 11/02/2017 MAN ALVARES MD, Ot E66.01 MORBID (SEVERE) OBESITY DUE TO EXCESS CA 11/02/2017 MAN ALVARES MD, Ot J44.9 CHRONIC OBSTRUCTIVE PULMONARY DISEASE, U 11/02/2017 MAN ALVARES MD, Ot L98.492 NON-PRS CHRONIC ULCER OF SKIN OF SITES W 11/02/2017 MAN ALVARES MD, Ot T81.31XA DISRUPTION OF EXTERNAL OPERATION (SURGIC 11/02/2017 MAN ALVARES MD, Ot Z68.35 BODY MASS INDEX (BMI) 35.0-35.9, ADULT 11/07/2017 MAN ALVARES MD, Ot E11.622 TYPE 2 DIABETES MELLITUS WITH OTHER SKIN 11/07/2017 MAN ALVARES MD, Ot E66.01 MORBID (SEVERE) OBESITY DUE TO EXCESS CA 11/07/2017 MAN ALVARES MD, Ot J44.9 CHRONIC OBSTRUCTIVE PULMONARY DISEASE, U 11/07/2017 MAN ALVARES MD, Ot L98.492 NON-PRS CHRONIC ULCER OF SKIN OF SITES W 11/07/2017 MAN ALVARES MD Ot T65.222A TOXIC EFFECT OF TOBACCO CIGARETTES, SELF 11/07/2017 MAN ALVARES MD, Ot T81.31XA DISRUPTION OF EXTERNAL OPERATION (SURGIC 11/07/2017 MAN ALVARES MD, Ot Z68.35 BODY MASS INDEX (BMI) 35.0-35.9, ADULT 11/07/2017 JOE WEBER FACNithya, ALI FACP CCDS Ot F17.210 NICOTINE DEPENDENCE, CIGARETTES, UNCOMPL 11/07/2017 JOE WEBER FACC, ALI FACP CCDS Ot I25.10 ATHSCL HEART DISEASE OF [place] CORONARY 11/07/2017 JOE GUILLENC, ALI FACP CCDS Ot J44.9 CHRONIC OBSTRUCTIVE PULMONARY DISEASE, U 11/07/2017 JOE WEBER FACC, ALI FACP CCDS Ot M54.12 RADICULOPATHY, CERVICAL REGION 11/07/2017 MAGDA DIAZ MD, FACC FACP CCDS Ot R06.02 SHORTNESS OF BREATH 11/07/2017 JOE WEBER FACC, MAGDA FACP CCDS Ot R07.9 CHEST PAIN, UNSPECIFIED 11/07/2017 JOE WEBER FACC, MAGDA FACP CCDS Ot R09.02 HYPOXEMIA 11/07/2017 JOE WEBER FACC, MAGDA GUILLENP CCDS Ot R42 DIZZINESS AND GIDDINESS 11/07/2017 JOE WEBER FACC, MAGDA FACP CCDS Ot Z82.49 FAMILY HX OF ISCHEM HEART DIS AND OTH DI 11/07/2017 MAGDA DIAZ MD, FACCP CCDS Ot Z86.73 PRSNL HX OF TIA (TIA), AND CEREB INFRC W 11/09/2017 MAN ALVARES MD Ot E11.621 TYPE 2 DIABETES MELLITUS WITH FOOT ULCER 11/09/2017 MAN ALVARES MD Ot E66.01 MORBID (SEVERE) OBESITY DUE TO EXCESS CA 11/09/2017 MAN ALVARES MD Ot J44.9 CHRONIC OBSTRUCTIVE PULMONARY DISEASE, U 11/09/2017 MAN ALVARES MD Ot L98.492 NON-PRS CHRONIC ULCER OF SKIN OF SITES W 11/09/2017 MAN ALVARES MD Ot T81.31XA DISRUPTION OF EXTERNAL OPERATION (SURGIC 11/09/2017 MAN ALVARES MD Ot Z68.35 BODY MASS INDEX (BMI) 35.0-35.9, ADULT 11/09/2017 JOE WEBER FACC, MAGDA GUILLENP CCDS Ot F17.210 NICOTINE DEPENDENCE, CIGARETTES, UNCOMPL 11/09/2017 JOE WEBER FACC, MAGDA FACP CCDS Ot I25.10 ATHSCL HEART DISEASE OF [place] CORONARY 11/09/2017 JOE WEBER FACC, MAGDA FACP CCDS Ot J44.9 CHRONIC OBSTRUCTIVE PULMONARY DISEASE, U 11/09/2017 JOE WEBER FACC, MAGDA FACP CCDS Ot M54.12 RADICULOPATHY, CERVICAL REGION 11/09/2017 JOE WEBER FACC, MAGDA GUILLENP CCDS Ot R06.02 SHORTNESS OF BREATH 11/09/2017 JOE WEBER FACC, MAGDA GUILLENP CCDS Ot R07.9 CHEST PAIN, UNSPECIFIED 11/09/2017 JOE WEBER FACC, MAGDA FACP CCDS Ot R09.02 HYPOXEMIA 11/09/2017 JOE WEBER FACC, ALI FACP CCDS Ot R42 DIZZINESS AND GIDDINESS 11/09/2017 JOE WEBER FAC, MAGDA FACP CCDS Ot Z82.49 FAMILY HX OF ISCHEM HEART DIS AND OTH DI 11/09/2017 JOE WEBER FAC, ALI FACP CCDS Ot Z86.73 PRSNL HX OF TIA (TIA), AND CEREB INFRC W 11/14/2017 JOE WEBER FAC, MAGDA FACP CCDS Ot I25.10 ATHSCL HEART DISEASE OF [place] CORONARY 11/14/2017 JOE WEBER FAC, MAGDA FACP CCDS Ot R06.02 SHORTNESS OF BREATH 11/14/2017 MAN ALVARES MD, Ot E11.622 TYPE 2 DIABETES MELLITUS WITH OTHER SKIN 11/14/2017 MAN ALVARES MD, Ot E66.01 MORBID (SEVERE) OBESITY DUE TO EXCESS CA 11/14/2017 MAN ALVARES MD, Ot J44.9 CHRONIC OBSTRUCTIVE PULMONARY DISEASE, U 11/14/2017 MAN ALVARES MD, Ot L98.492 NON-PRS CHRONIC ULCER OF SKIN OF SITES W 11/14/2017 MAN ALVARES MD, Ot T65.222A TOXIC EFFECT OF TOBACCO CIGARETTES, SELF 11/14/2017 MAN ALVARES MD, Ot T81.31XA DISRUPTION OF EXTERNAL OPERATION (SURGIC 11/14/2017 MAN ALVARES MD Ot Z68.35 BODY MASS INDEX (BMI) 35.0-35.9, ADULT 11/15/2017 MAN ALVARES MD, Ot E11.622 TYPE 2 DIABETES MELLITUS WITH OTHER SKIN 11/15/2017 MAN ALVARES MD, Ot E66.01 MORBID (SEVERE) OBESITY DUE TO EXCESS CA 11/15/2017 MAN ALVARES MD, Ot J44.9 CHRONIC OBSTRUCTIVE PULMONARY DISEASE, U 11/15/2017 MAN ALVARES MD, Ot L98.492 NON-PRS CHRONIC ULCER OF SKIN OF SITES W 11/15/2017 MAN ALVARES MD, Ot T65.222A TOXIC EFFECT OF TOBACCO CIGARETTES, SELF 11/15/2017 MAN ALVARES MD, Ot T81.31XA DISRUPTION OF EXTERNAL OPERATION (SURGIC 11/17/2017 MAN ALVARES MD, Ot E11.622 TYPE 2 DIABETES MELLITUS WITH OTHER SKIN 11/17/2017 MAN ALVARES MD Ot E66.01 MORBID (SEVERE) OBESITY DUE TO EXCESS CA 11/17/2017 MAN ALVARES MD, Ot J44.9 CHRONIC OBSTRUCTIVE PULMONARY DISEASE, U 11/17/2017 MAN ALVARES MD, Ot L98.492 NON-PRS CHRONIC ULCER OF SKIN OF SITES W 11/17/2017 MAN ALVARES MD, Ot T81.31XA DISRUPTION OF EXTERNAL OPERATION (SURGIC 11/17/2017 MAN ALVARES MD, Ot Z68.35 BODY MASS INDEX (BMI) 35.0-35.9, ADULT 11/17/2017 MAN ALVARES MD, Ot E11.622 TYPE 2 DIABETES MELLITUS WITH OTHER SKIN 11/17/2017 MAN ALVARES MD, Ot L98.492 NON-PRS CHRONIC ULCER OF SKIN OF SITES W 11/23/2017 MAN ALVARES MD, Ot E11.622 TYPE 2 DIABETES MELLITUS WITH OTHER SKIN 11/23/2017 MAN ALVARES MD, Ot E66.01 MORBID (SEVERE) OBESITY DUE TO EXCESS CA 11/23/2017 MAN ALVARES MD, Ot J44.9 CHRONIC OBSTRUCTIVE PULMONARY DISEASE, U 11/23/2017 MAN ALVARES MD, Ot L98.492 NON-PRS CHRONIC ULCER OF SKIN OF SITES W 11/23/2017 MAN ALVARES MD, Ot T65.222A TOXIC EFFECT OF TOBACCO CIGARETTES, SELF 11/23/2017 MAN ALVARES MD, Ot T81.31XA DISRUPTION OF EXTERNAL OPERATION (SURGIC 11/23/2017 MAN ALVARES MD, Ot Z68.35 BODY MASS INDEX (BMI) 35.0-35.9, ADULT 11/24/2017 MAN ALVARES MD, Ot E11.622 TYPE 2 DIABETES MELLITUS WITH OTHER SKIN 11/24/2017 MAN ALVARES MD, Ot E66.01 MORBID (SEVERE) OBESITY DUE TO EXCESS CA 11/24/2017 MAN ALVARES MD, Ot J44.9 CHRONIC OBSTRUCTIVE PULMONARY DISEASE, U 11/24/2017 MAN ALVARES MD, Ot L98.492 NON-PRS CHRONIC ULCER OF SKIN OF SITES W 11/24/2017 MAN ALVARES MD, Ot T65.222A TOXIC EFFECT OF TOBACCO CIGARETTES, SELF 11/24/2017 MAN ALVARES MD, Ot T81.31XA DISRUPTION OF EXTERNAL OPERATION (SURGIC 11/29/2017 MAN ALVARES MD, Ot E11.622 TYPE 2 DIABETES MELLITUS WITH OTHER SKIN 11/29/2017 MAN ALVARES MD, Ot E66.01 MORBID (SEVERE) OBESITY DUE TO EXCESS CA 11/29/2017 MAN ALVARES MD, Ot J44.9 CHRONIC OBSTRUCTIVE PULMONARY DISEASE, U 11/29/2017 MAN ALVARES MD, Ot L98.492 NON-PRS CHRONIC ULCER OF SKIN OF SITES W 11/29/2017 MAN ALVARES MD, Ot T65.222A TOXIC EFFECT OF TOBACCO CIGARETTES, SELF 11/29/2017 MAN ALVARES MD, Ot T81.31XA DISRUPTION OF EXTERNAL OPERATION (SURGIC 11/29/2017 MAN ALVARES MD, Ot Z68.35 BODY MASS INDEX (BMI) 35.0-35.9, ADULT 11/29/2017 MAN ALVARES MD, Ot E11.622 TYPE 2 DIABETES MELLITUS WITH OTHER SKIN 11/29/2017 MAN ALVARES MD, Ot E66.01 MORBID (SEVERE) OBESITY DUE TO EXCESS CA 11/29/2017 MAN ALVARES MD, Ot J44.9 CHRONIC OBSTRUCTIVE PULMONARY DISEASE, U 11/29/2017 MAN ALVARES MD, Ot L98.492 NON-PRS CHRONIC ULCER OF SKIN OF SITES W 11/29/2017 MAN ALVARES MD, Ot T65.222A TOXIC EFFECT OF TOBACCO CIGARETTES, SELF 11/29/2017 MAN ALVARES MD, Ot T81.31XA DISRUPTION OF EXTERNAL OPERATION (SURGIC 11/29/2017 MAN ALVARES MD, Ot Z68.35 BODY MASS INDEX (BMI) 35.0-35.9, ADULT 12/04/2017 MAN ALVARES MD, Ot E11.622 TYPE 2 DIABETES MELLITUS WITH OTHER SKIN 12/04/2017 MAN ALVARES MD, Ot E66.01 MORBID (SEVERE) OBESITY DUE TO EXCESS CA 12/04/2017 MAN ALVARES MD, Ot J44.9 CHRONIC OBSTRUCTIVE PULMONARY DISEASE, U 12/04/2017 MAN ALVARES MD, Ot L98.492 NON-PRS CHRONIC ULCER OF SKIN OF SITES W 12/04/2017 MAN ALVARES MD, Ot T65.222A TOXIC EFFECT OF TOBACCO CIGARETTES, SELF 12/04/2017 MAN ALVARES MD, Ot T81.31XA DISRUPTION OF EXTERNAL OPERATION (SURGIC 12/04/2017 MAN ALVARES MD, Ot Z68.35 BODY MASS INDEX (BMI) 35.0-35.9, ADULT 12/04/2017 JOE WEBER [facility], MAGDA [facility] ADITYAS Ot I25.10 ATHSCL HEART DISEASE OF [place] CORONARY 12/04/2017 JOE WEBER [facility], [facility] ADITYAS Ot R06.02 SHORTNESS OF BREATH 12/08/2017 MAN ALVARES MD, Ot E11.622 TYPE 2 DIABETES MELLITUS WITH OTHER SKIN 12/08/2017 MAN ALVARES MD, Ot E66.01 MORBID (SEVERE) OBESITY DUE TO EXCESS CA 12/08/2017 MAN ALVARES MD, Ot J44.9 CHRONIC OBSTRUCTIVE PULMONARY DISEASE, U 12/08/2017 MAN ALVARES MD, Ot L98.492 NON-PRS CHRONIC ULCER OF SKIN OF SITES W 12/08/2017 MAN ALVARES MD, Ot T65.222A TOXIC EFFECT OF TOBACCO CIGARETTES, SELF 12/08/2017 MAN ALVARES MD, Ot T81.31XA DISRUPTION OF EXTERNAL OPERATION (SURGIC 12/11/2017 MAN ALVARES MD, Ot E11.622 TYPE 2 DIABETES MELLITUS WITH OTHER SKIN 12/11/2017 MAN ALVARES MD, Ot E66.01 MORBID (SEVERE) OBESITY DUE TO EXCESS CA 12/11/2017 MAN ALVARES MD, Ot J44.9 CHRONIC OBSTRUCTIVE PULMONARY DISEASE, U 12/11/2017 MAN ALVARES MD, Ot L98.492 NON-PRS CHRONIC ULCER OF SKIN OF SITES W 12/11/2017 MAN ALVARES MD, Ot T65.222A TOXIC EFFECT OF TOBACCO CIGARETTES, SELF 12/11/2017 MAN ALVARES MD, Ot T81.31XA DISRUPTION OF EXTERNAL OPERATION (SURGIC 12/11/2017 MAN ALVARES MD, Ot Z68.35 BODY MASS INDEX (BMI) 35.0-35.9, ADULT 12/13/2017 MAN ALVARES MD, Ot E11.622 TYPE 2 DIABETES MELLITUS WITH OTHER SKIN 12/13/2017 MAN ALVARES MD, Ot E66.01 MORBID (SEVERE) OBESITY DUE TO EXCESS CA 12/13/2017 MAN ALVARES MD, Ot J44.9 CHRONIC OBSTRUCTIVE PULMONARY DISEASE, U 12/13/2017 MAN ALVARES MD, Ot L98.492 NON-PRS CHRONIC ULCER OF SKIN OF SITES W 12/13/2017 MAN ALVARES MD, Ot T65.222A TOXIC EFFECT OF TOBACCO CIGARETTES, SELF 12/13/2017 MAN ALVARES MD, Ot T81.31XA DISRUPTION OF EXTERNAL OPERATION (SURGIC 12/13/2017 MAN ALVARES MD, Ot Z68.35 BODY MASS INDEX (BMI) 35.0-35.9, ADULT 12/14/2017 MAN ALVARES MD, Ot E11.622 TYPE 2 DIABETES MELLITUS WITH OTHER SKIN 12/14/2017 MAN ALVARES MD, Ot E66.01 MORBID (SEVERE) OBESITY DUE TO EXCESS CA 12/14/2017 MAN ALVARES MD, Ot J44.9 CHRONIC OBSTRUCTIVE PULMONARY DISEASE, U 12/14/2017 MAN ALVARES MD, Ot L98.492 NON-PRS CHRONIC ULCER OF SKIN OF SITES W 12/14/2017 MAN ALVARES MD, Ot T65.222A TOXIC EFFECT OF TOBACCO CIGARETTES, SELF 12/14/2017 MAN ALVARES MD, Ot T81.31XA DISRUPTION OF EXTERNAL OPERATION (SURGIC 12/14/2017 MAN ALVARES MD, Ot Z68.35 BODY MASS INDEX (BMI) 35.0-35.9, ADULT 12/29/2017 MAN ALVARES MD, Ot E11.622 TYPE 2 DIABETES MELLITUS WITH OTHER SKIN 12/29/2017 MAN ALVARES MD, Ot E66.01 MORBID (SEVERE) OBESITY DUE TO EXCESS CA 12/29/2017 MAN ALVARES MD, Ot J44.9 CHRONIC OBSTRUCTIVE PULMONARY DISEASE, U 12/29/2017 MAN ALVARES MD, Ot L98.492 NON-PRS CHRONIC ULCER OF SKIN OF SITES W 12/29/2017 MAN ALVARES MD, Ot T65.222A TOXIC EFFECT OF TOBACCO CIGARETTES, SELF 12/29/2017 MAN ALVARES MD, Ot T81.31XA DISRUPTION OF EXTERNAL OPERATION (SURGIC 12/29/2017 MAN ALVARES MD, Ot Z68.35 BODY MASS INDEX (BMI) 35.0-35.9, ADULT 02/02/2018 Ot R13.10 DYSPHAGIA, UNSPECIFIED 03/19/2018 SURYA CABAN MD Ot 786.09 RESPIRATORY ABNORM NEC 03/19/2018 SURYA CABAN MD Ot 786.50 CHEST PAIN NOS 03/19/2018 KINJAL WEBER, DORIS Butcher Ot 721.0 CERVICAL SPONDYLOSIS 03/19/2018 DORIS LAYTON MD Ot 724.02 SPINAL STENOSIS, LUMBAR REG, W/OUT NEURO 03/19/2018 DORIS LAYTON MD Ot L02.11 CUTANEOUS ABSCESS OF NECK 03/19/2018 DORIS LAYTON MD Ot R59.0 LOCALIZED ENLARGED LYMPH NODES 03/19/2018 DORIS LAYTON MD Ot H53.2 DIPLOPIA 03/19/2018 Ot M75.101 UNSP ROTATR -CUFF TEAR/RUPTR OF RIGHT LEWIS 03/19/2018 DORIS LAYTON MD Ot M47.892 OTHER SPONDYLOSIS, CERVICAL REGION 03/19/2018 JT FERNANDEZ DO Ot E66.9 OBESITY, UNSPECIFIED 03/19/2018 JT FERNANDEZ DO Ot F41.9 ANXIETY DISORDER, UNSPECIFIED 03/19/2018 JT FERNANDEZ DO Ot I20.9 ANGINA PECTORIS, UNSPECIFIED 03/19/2018 JT FERNANDEZ DO, Ot J44.9 CHRONIC OBSTRUCTIVE PULMONARY DISEASE, U 03/19/2018 JT FERNANDEZ DO, Ot J45.909 UNSPECIFIED ASTHMA, UNCOMPLICATED 03/19/2018 JT FERNANDEZ DO Ot Z72.0 TOBACCO USE 03/19/2018 JT FERNANDEZ DO Ot G47.33 OBSTRUCTIVE SLEEP APNEA (ADULT) (PEDIATR 03/19/2018 LARRY CHING GREEN MARKETING ANALYST Ot R10.11 RIGHT UPPER QUADRANT PAIN 03/19/2018 LARRY CHING GREEN MARKETING ANALYST Ot R10.11 RIGHT UPPER QUADRANT PAIN 03/19/2018 JOE WEBER FACC, MAGDA FACP CCDS Ot I73.9 PERIPHERAL VASCULAR DISEASE, UNSPECIFIED 03/19/2018 JOE WEBER FACC, ALI FACP CCDS Ot E66.09 OTHER OBESITY DUE TO EXCESS CALORIES 03/19/2018 JOE WEBER FACC, ALI FACP CCDS Ot E78.4 OTHER HYPERLIPIDEMIA 03/19/2018 JOE WEBER FACC, ALI FACP CCDS Ot I10 ESSENTIAL (PRIMARY) HYPERTENSION 03/19/2018 JOE WEBER FACC, ALI FACP CCDS Ot J43.8 OTHER EMPHYSEMA 03/19/2018 JOE WEBER FACC, ALI FACP CCDS Ot R06.02 SHORTNESS OF BREATH 03/19/2018 JOE WEBER FACC, ALI FACP CCDS Ot R07.89 OTHER CHEST PAIN 03/19/2018 JOE WEBER [facility], MAGDA FACP CCDS Ot Z72.0 TOBACCO USE 03/19/2018 JOE WEBER [facility], ALI FACP CCDS Ot Z86.79 PERSONAL HISTORY OF OTHER DISEASES OF TH 03/19/2018 NANYEMELIA CARY L SKI TECHNICIAN Ot I72.4 ANEURYSM OF ARTERY OF LOWER EXTREMITY 03/19/2018 NANYRAEANN MEELIA L SKI TECHNICIAN Ot I97.610 POSTPROC HEMOR OF A CIRC SYS ORG FOLLOWI 03/19/2018 NANYRAEANN EMELIA L SKI TECHNICIAN Ot T81.719A COMPLICATION OF UNSP ARTERY FOLLOWING A 03/19/2018 BAIMA, EMELIA L SKI TECHNICIAN Ot E78.4 OTHER HYPERLIPIDEMIA 03/19/2018 BAIMA, EMELIA L SKI TECHNICIAN Ot I10 ESSENTIAL (PRIMARY) HYPERTENSION 03/19/2018 BAIMA, EMELIA L SKI TECHNICIAN Ot I25.10 ATHSCL HEART DISEASE OF [place] CORONARY 03/19/2018 BAIMA, EMELIA L SKI TECHNICIAN Ot 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 03/19/2018 ELIZABETH WEBER, MAN Dale Ot F17.200 NICOTINE DEPENDENCE, UNSPECIFIED, UNCOMP 03/19/2018 ELIZABETH WEBER, MAN Dale Ot J31.2 CHRONIC PHARYNGITIS 03/19/2018 BAIMA, EMELIA L SKI TECHNICIAN Ot E78.4 OTHER HYPERLIPIDEMIA 03/19/2018 BAIMA, EMELIA L SKI TECHNICIAN Ot I10 ESSENTIAL (PRIMARY) HYPERTENSION 03/19/2018 BAIMA, EMELIA L SKI TECHNICIAN Ot 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 03/19/2018 BAIMA EMELIA L SKI TECHNICIAN Ot R06.02 SHORTNESS OF BREATH 03/19/2018 BAIMA, EMELIA L SKI TECHNICIAN Ot Z72.0 TOBACCO USE 03/19/2018 KINJAL WEBER, DORIS Butcher Ot M47.892 OTHER SPONDYLOSIS, CERVICAL REGION 03/19/2018 BAIMA, EMELIA L SKI TECHNICIAN Ot E78.4 OTHER HYPERLIPIDEMIA 03/19/2018 BAIMA, EMELIA L SKI TECHNICIAN Ot I10 ESSENTIAL (PRIMARY) HYPERTENSION 03/19/2018 JOE WEBER [facility], MAGDA FACP CCDS Ot E11.9 TYPE 2 DIABETES MELLITUS WITHOUT COMPLIC 03/19/2018 JOE WEBER FACC, MAGDA FACP CCDS Ot E66.9 OBESITY, UNSPECIFIED 03/19/2018 JOE WEBER FACC, ALI FACP CCDS Ot G47.34 IDIO SLEEP RELATED NONOBSTRUCTIVE ALVEOL 03/19/2018 JOE WEBER FACC, ALI FACP CCDS Ot I25.10 ATHSCL HEART DISEASE OF [place] CORONARY 03/19/2018 JOE WEBER FACC, ALI FACP CCDS Ot J43.8 OTHER EMPHYSEMA 03/19/2018 JOE WEBER FACC, ALI FACP CCDS Ot R06.02 SHORTNESS OF BREATH 03/19/2018 JOE WEBER FACC, ALI FACP CCDS Ot R07.89 OTHER CHEST PAIN 03/19/2018 JOE WEBER FACC, ALI FACP CCDS Ot R42 DIZZINESS AND GIDDINESS 03/19/2018 JOE WEBER FACC, ALI FACP CCDS Ot Z72.0 TOBACCO USE 03/19/2018 MAN ALVARES MD, Ot E11.622 TYPE 2 DIABETES MELLITUS WITH OTHER SKIN 03/19/2018 MAN ALVARES MD, Ot E66.01 MORBID (SEVERE) OBESITY DUE TO EXCESS CA 03/19/2018 MAN ALVARES MD, Ot J44.9 CHRONIC OBSTRUCTIVE PULMONARY DISEASE, U 03/19/2018 MAN ALVARES MD, Ot L76.34 POSTPROC SEROMA OF SKIN, SUBCU FOLLOWING 03/19/2018 MAN ALVARES MD, Ot L98.492 NON-PRS CHRONIC ULCER OF SKIN OF SITES W 03/19/2018 MAN ALVARES MD, Ot T65.222A TOXIC EFFECT OF TOBACCO CIGARETTES, SELF 03/19/2018 MAN ALVARES MD, Ot T81.31XA DISRUPTION OF EXTERNAL OPERATION (SURGIC 03/19/2018 DORIS LAYTON MD Ot I25.84 CORONARY ATHEROSCLEROSIS DUE TO CALCIFIE 03/19/2018 DORIS LAYTON MD, Ot J43.9 EMPHYSEMA, UNSPECIFIED 03/19/2018 DORIS LAYTON MD Ot J84.10 PULMONARY FIBROSIS, UNSPECIFIED 03/19/2018 MAN ALVARES MD, Ot E11.622 TYPE 2 DIABETES MELLITUS WITH OTHER SKIN 03/19/2018 MAN ALVARES MD, Ot E66.01 MORBID (SEVERE) OBESITY DUE TO EXCESS CA 03/19/2018 MAN ALVARES MD, Ot J44.9 CHRONIC OBSTRUCTIVE PULMONARY DISEASE, U 03/19/2018 MAN ALVARES MD, Ot L76.34 POSTPROC SEROMA OF SKIN, SUBCU FOLLOWING 03/19/2018 MAN ALVARES MD, Ot L98.492 NON-PRS CHRONIC ULCER OF SKIN OF SITES W 03/19/2018 MAN ALVARES MD, Ot T65.222A TOXIC EFFECT OF TOBACCO CIGARETTES, SELF 03/19/2018 MAN ALVARES MD, Ot T81.31XA DISRUPTION OF EXTERNAL OPERATION (SURGIC 03/19/2018 MAN ALVARES MD Ot E11.622 TYPE 2 DIABETES MELLITUS WITH OTHER SKIN 03/19/2018 MAN ALVARES MD, Ot E66.01 MORBID (SEVERE) OBESITY DUE TO EXCESS CA 03/19/2018 MAN ALVARES MD, Ot J44.9 CHRONIC OBSTRUCTIVE PULMONARY DISEASE, U 03/19/2018 MAN ALVARES MD, Ot L98.492 NON-PRS CHRONIC ULCER OF SKIN OF SITES W 03/19/2018 MAN ALVARES MD, Ot T65.222A TOXIC EFFECT OF TOBACCO CIGARETTES, SELF 03/19/2018 MAN ALVARES MD, Ot T81.31XA DISRUPTION OF EXTERNAL OPERATION (SURGIC 03/19/2018 MAN ALVARES MD Ot Z68.35 BODY MASS INDEX (BMI) 35.0-35.9, ADULT 03/19/2018 DYLAN PRADHAN MD, Ot E11.622 TYPE 2 DIABETES MELLITUS WITH OTHER SKIN 03/19/2018 DYLAN PRADHAN MD, Ot E66.01 MORBID (SEVERE) OBESITY DUE TO EXCESS CA 03/19/2018 DYLAN PRADHAN MD, Ot J44.9 CHRONIC OBSTRUCTIVE PULMONARY DISEASE, U 03/19/2018 DYLAN PRADHAN MD, Ot L98.492 NON-PRS CHRONIC ULCER OF SKIN OF SITES W 03/19/2018 DYLAN PRADHAN MD, Ot T65.222A TOXIC EFFECT OF TOBACCO CIGARETTES, SELF 03/19/2018 DYLAN PRADHAN MD, Ot T81.31XA DISRUPTION OF EXTERNAL OPERATION (SURGIC 03/19/2018 DYLAN PRADHAN MD, Ot Z68.35 BODY MASS INDEX (BMI) 35.0-35.9, ADULT 03/19/2018 MAN ALVARES MD, Ot E11.622 TYPE 2 DIABETES MELLITUS WITH OTHER SKIN 03/19/2018 MAN ALVARES MD, Ot E66.01 MORBID (SEVERE) OBESITY DUE TO EXCESS CA 03/19/2018 MAN ALVARES MD, Ot J44.9 CHRONIC OBSTRUCTIVE PULMONARY DISEASE, U 03/19/2018 MAN ALVARES MD, Ot L98.492 NON-PRS CHRONIC ULCER OF SKIN OF SITES W 03/19/2018 MAN ALVARES MD, Ot T65.222A TOXIC EFFECT OF TOBACCO CIGARETTES, SELF 03/19/2018 MAN ALVARES MD, Ot T81.31XA DISRUPTION OF EXTERNAL OPERATION (SURGIC 03/19/2018 MAN ALVARES MD, Ot Z68.35 BODY MASS INDEX (BMI) 35.0-35.9, ADULT 03/19/2018 MAN ALVARES MD, Ot E11.622 TYPE 2 DIABETES MELLITUS WITH OTHER SKIN 03/19/2018 MAN ALVARES MD, Ot E66.01 MORBID (SEVERE) OBESITY DUE TO EXCESS CA 03/19/2018 MAN ALVARES MD, Ot J44.9 CHRONIC OBSTRUCTIVE PULMONARY DISEASE, U 03/19/2018 MAN ALVARES MD, Ot L98.492 NON-PRS CHRONIC ULCER OF SKIN OF SITES W 03/19/2018 MAN ALVARES MD, Ot T81.31XA DISRUPTION OF EXTERNAL OPERATION (SURGIC 03/19/2018 MAN ALVARES MD, Ot Z68.35 BODY MASS INDEX (BMI) 35.0-35.9, ADULT 03/19/2018 MAN ALVARES MD, Ot E11.622 TYPE 2 DIABETES MELLITUS WITH OTHER SKIN 03/19/2018 MAN ALVARES MD, Ot E66.01 MORBID (SEVERE) OBESITY DUE TO EXCESS CA 03/19/2018 MAN ALVARES MD, Ot J44.9 CHRONIC OBSTRUCTIVE PULMONARY DISEASE, U 03/19/2018 MAN ALVARES MD, Ot L98.492 NON-PRS CHRONIC ULCER OF SKIN OF SITES W 03/19/2018 MAN ALVARES MD, Ot T81.31XA DISRUPTION OF EXTERNAL OPERATION (SURGIC 03/19/2018 MAN ALVARES MD, Ot Z68.35 BODY MASS INDEX (BMI) 35.0-35.9, ADULT 03/19/2018 MAN ALVARES MD, Ot E11.622 TYPE 2 DIABETES MELLITUS WITH OTHER SKIN 03/19/2018 MAN ALVARES MD, Ot E66.01 MORBID (SEVERE) OBESITY DUE TO EXCESS CA 03/19/2018 MAN ALVARES MD, Ot J44.9 CHRONIC OBSTRUCTIVE PULMONARY DISEASE, U 03/19/2018 MAN ALVARES MD, Ot L98.492 NON-PRS CHRONIC ULCER OF SKIN OF SITES W 03/19/2018 MAN ALVARES MD, Ot T81.31XA DISRUPTION OF EXTERNAL OPERATION (SURGIC 03/19/2018 MAN ALVARES MD, Ot Z68.35 BODY MASS INDEX (BMI) 35.0-35.9, ADULT 03/19/2018 MAN ALVARES MD, Ot E11.622 TYPE 2 DIABETES MELLITUS WITH OTHER SKIN 03/19/2018 MAN ALVARES MD, Ot E66.01 MORBID (SEVERE) OBESITY DUE TO EXCESS CA 03/19/2018 MAN ALVARES MD, Ot J44.9 CHRONIC OBSTRUCTIVE PULMONARY DISEASE, U 03/19/2018 MAN ALVARES MD, Ot L98.492 NON-PRS CHRONIC ULCER OF SKIN OF SITES W 03/19/2018 MAN ALVARES MD, Ot T81.31XA DISRUPTION OF EXTERNAL OPERATION (SURGIC 03/19/2018 MAN ALVARES MD, Ot Z68.35 BODY MASS INDEX (BMI) 35.0-35.9, ADULT 03/19/2018 MAN ALVARES MD, Ot E11.622 TYPE 2 DIABETES MELLITUS WITH OTHER SKIN 03/19/2018 MAN ALVARES MD, Ot E66.01 MORBID (SEVERE) OBESITY DUE TO EXCESS CA 03/19/2018 MAN ALVARES MD, Ot J44.9 CHRONIC OBSTRUCTIVE PULMONARY DISEASE, U 03/19/2018 MAN ALVARES MD, Ot L98.492 NON-PRS CHRONIC ULCER OF SKIN OF SITES W 03/19/2018 MAN ALVARES MD, Ot T81.31XA DISRUPTION OF EXTERNAL OPERATION (SURGIC 03/19/2018 MAN ALVARES MD, Ot Z68.35 BODY MASS INDEX (BMI) 35.0-35.9, ADULT 03/19/2018 MAN ALVARES MD, Ot E11.622 TYPE 2 DIABETES MELLITUS WITH OTHER SKIN 03/19/2018 MAN ALVARES MD, Ot E66.01 MORBID (SEVERE) OBESITY DUE TO EXCESS CA 03/19/2018 MAN ALVARES MD, Ot J44.9 CHRONIC OBSTRUCTIVE PULMONARY DISEASE, U 03/19/2018 MAN ALVARES MD, Ot L98.492 NON-PRS CHRONIC ULCER OF SKIN OF SITES W 03/19/2018 MAN ALVARES MD, Ot T81.31XA DISRUPTION OF EXTERNAL OPERATION (SURGIC 03/19/2018 MAN ALVARES MD, Ot Z68.35 BODY MASS INDEX (BMI) 35.0-35.9, ADULT 03/19/2018 MAN ALVARES MD, Ot E11.621 TYPE 2 DIABETES MELLITUS WITH FOOT ULCER 03/19/2018 MAN ALVARES MD, Ot E66.01 MORBID (SEVERE) OBESITY DUE TO EXCESS CA 03/19/2018 MAN ALVARES MD, Ot J44.9 CHRONIC OBSTRUCTIVE PULMONARY DISEASE, U 03/19/2018 MAN ALVARES MD, Ot L98.492 NON-PRS CHRONIC ULCER OF SKIN OF SITES W 03/19/2018 MAN ALVARES MD, Ot T81.31XA DISRUPTION OF EXTERNAL OPERATION (SURGIC 03/19/2018 MAN ALVARES MD, Ot Z68.35 BODY MASS INDEX (BMI) 35.0-35.9, ADULT 03/19/2018 MAN ALVARES MD, Ot E11.622 TYPE 2 DIABETES MELLITUS WITH OTHER SKIN 03/19/2018 MAN ALVARES MD, Ot E66.01 MORBID (SEVERE) OBESITY DUE TO EXCESS CA 03/19/2018 MAN ALVARES MD, Ot J44.9 CHRONIC OBSTRUCTIVE PULMONARY DISEASE, U 03/19/2018 MAN ALVARES MD, Ot L98.492 NON-PRS CHRONIC ULCER OF SKIN OF SITES W 03/19/2018 MAN ALVARES MD, Ot T81.31XA DISRUPTION OF EXTERNAL OPERATION (SURGIC 03/19/2018 MAN ALVARES MD, Ot Z68.35 BODY MASS INDEX (BMI) 35.0-35.9, ADULT 03/19/2018 MAN ALVARES MD, Ot E11.622 TYPE 2 DIABETES MELLITUS WITH OTHER SKIN 03/19/2018 MAN ALVARES MD, Ot L98.492 NON-PRS CHRONIC ULCER OF SKIN OF SITES W 03/19/2018 MAN ALVARES MD, Ot E11.622 TYPE 2 DIABETES MELLITUS WITH OTHER SKIN 03/19/2018 MAN ALVARES MD, Ot E66.01 MORBID (SEVERE) OBESITY DUE TO EXCESS CA 03/19/2018 MAN ALVARES MD, Ot J44.9 CHRONIC OBSTRUCTIVE PULMONARY DISEASE, U 03/19/2018 MAN ALVARES MD, Ot L98.492 NON-PRS CHRONIC ULCER OF SKIN OF SITES W 03/19/2018 MAN ALVARES MD, Ot T65.222A TOXIC EFFECT OF TOBACCO CIGARETTES, SELF 03/19/2018 MAN ALVARES MD, Ot T81.31XA DISRUPTION OF EXTERNAL OPERATION (SURGIC 03/19/2018 MAN ALVARES MD, Ot E11.622 TYPE 2 DIABETES MELLITUS WITH OTHER SKIN 03/19/2018 MAN ALVARES MD, Ot E66.01 MORBID (SEVERE) OBESITY DUE TO EXCESS CA 03/19/2018 MAN ALVARES MD, Ot J44.9 CHRONIC OBSTRUCTIVE PULMONARY DISEASE, U 03/19/2018 MAN ALVARES MD, Ot L98.492 NON-PRS CHRONIC ULCER OF SKIN OF SITES W 03/19/2018 MAN ALVARES MD, Ot T65.222A TOXIC EFFECT OF TOBACCO CIGARETTES, SELF 03/19/2018 MAN ALVARES MD, Ot T81.31XA DISRUPTION OF EXTERNAL OPERATION (SURGIC 03/19/2018 MAN ALVARES MD, Ot Z68.35 BODY MASS INDEX (BMI) 35.0-35.9, ADULT 03/19/2018 JOE WEBER FAC, ALI FACP CCDS Ot I25.10 ATHSCL HEART DISEASE OF [place] CORONARY 03/19/2018 JOE WEBER FAC, ALI FACP CCDS Ot R06.02 SHORTNESS OF BREATH 03/19/2018 MAN ALVARES MD, Ot E11.622 TYPE 2 DIABETES MELLITUS WITH OTHER SKIN 03/19/2018 MAN ALVARES MD, Ot E66.01 MORBID (SEVERE) OBESITY DUE TO EXCESS CA 03/19/2018 MAN ALVARES MD, Ot J44.9 CHRONIC OBSTRUCTIVE PULMONARY DISEASE, U 03/19/2018 MAN ALVARES MD, Ot L98.492 NON-PRS CHRONIC ULCER OF SKIN OF SITES W 03/19/2018 MAN ALVARES MD, Ot T65.222A TOXIC EFFECT OF TOBACCO CIGARETTES, SELF 03/19/2018 MAN ALVARES MD, Ot T81.31XA DISRUPTION OF EXTERNAL OPERATION (SURGIC 03/19/2018 MAN ALVARES MD, Ot Z68.35 BODY MASS INDEX (BMI) 35.0-35.9, ADULT 03/19/2018 MAN ALVARES MD, Ot E11.622 TYPE 2 DIABETES MELLITUS WITH OTHER SKIN 03/19/2018 MAN ALVARES MD, Ot E66.01 MORBID (SEVERE) OBESITY DUE TO EXCESS CA 03/19/2018 MAN ALVARES MD, Ot J44.9 CHRONIC OBSTRUCTIVE PULMONARY DISEASE, U 03/19/2018 MAN ALVARES MD, Ot L98.492 NON-PRS CHRONIC ULCER OF SKIN OF SITES W 03/19/2018 MAN ALVARES MD, Ot T65.222A TOXIC EFFECT OF TOBACCO CIGARETTES, SELF 03/19/2018 MAN ALVARES MD, Ot T81.31XA DISRUPTION OF EXTERNAL OPERATION (SURGIC 03/19/2018 MAN ALVARES MD, Ot Z68.35 BODY MASS INDEX (BMI) 35.0-35.9, ADULT 03/19/2018 MAN ALVARES MD, Ot E11.622 TYPE 2 DIABETES MELLITUS WITH OTHER SKIN 03/19/2018 MAN ALVARES MD, Ot E66.01 MORBID (SEVERE) OBESITY DUE TO EXCESS CA 03/19/2018 MAN ALVARES MD, Ot J44.9 CHRONIC OBSTRUCTIVE PULMONARY DISEASE, U 03/19/2018 MAN ALVARES MD, Ot L98.492 NON-PRS CHRONIC ULCER OF SKIN OF SITES W 03/19/2018 MAN ALVARES MD, Ot T65.222A TOXIC EFFECT OF TOBACCO CIGARETTES, SELF 03/19/2018 MAN ALVARES MD, Ot T81.31XA DISRUPTION OF EXTERNAL OPERATION (SURGIC 03/19/2018 MAN ALVARES MD, Ot E11.622 TYPE 2 DIABETES MELLITUS WITH OTHER SKIN 03/19/2018 MAN ALVARES MD, Ot E66.01 MORBID (SEVERE) OBESITY DUE TO EXCESS CA 03/19/2018 MAN ALVARES MD, Ot J44.9 CHRONIC OBSTRUCTIVE PULMONARY DISEASE, U 03/19/2018 MAN ALVARES MD, Ot L98.492 NON-PRS CHRONIC ULCER OF SKIN OF SITES W 03/19/2018 MAN ALVARES MD, Ot T65.222A TOXIC EFFECT OF TOBACCO CIGARETTES, SELF 03/19/2018 MAN ALVARES MD, Ot T81.31XA DISRUPTION OF EXTERNAL OPERATION (SURGIC 03/19/2018 MAN ALVARES MD, Ot Z68.35 BODY MASS INDEX (BMI) 35.0-35.9, ADULT 03/19/2018 Ot R13.10 DYSPHAGIA, UNSPECIFIED 03/22/2018 KINJAL WEBER, DORIS Butcher Ot 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 Results Test Result Range Capillary blood glucose measurement by glucometer (mass/volume) - 06/29/16 10: 01 Capillary blood glucose measurement by glucometer (mass/volume) 149 mg/dL 70-110 Automated blood complete blood count (hemogram) panel - 07/12/16 08:24 Blood leukocytes automated count (number/volume) 9.4 10*3/uL 4.3-11.0 Blood erythrocytes automated count (number/volume) 5.13 10*6/uL 4.35-5.85 Venous blood hemoglobin measurement (mass/volume) 15.4 g/dL 13.3-17.7 Blood hematocrit (volume fraction) 45 % 40-54 Automated erythrocyte mean corpuscular volume 87 [foz_us] 80-99 Automated erythrocyte mean corpuscular hemoglobin (mass per erythrocyte) 30 pg 25-34 Automated erythrocyte mean corpuscular hemoglobin concentration measurement ( mass/volume) 35 g/dL 32-36 Automated erythrocyte distribution width ratio 13.9 % 10.0-14.5 Automated blood platelet count (count/volume) 330 10*3/uL 130-400 Automated blood platelet mean volume measurement 9.9 [foz_us] 7.4-10.4 PT panel in platelet poor plasma by coagulation assay - 07/12/16 08:24 Prothrombin time (PT) in platelet poor plasma by coagulation assay 12.9 s 12.2-14.7 INR in platelet poor plasma or blood by coagulation assay 1.0 0.8-1.4 Activated partial thromboplastin time (aPTT) in platelet poor plasma bycoagulation assay - 07/12/16 08:24 Activated partial thromboplastin time (aPTT) in platelet poor plasma bycoagulation assay 26 s 24-35 Comprehensive metabolic panel - 07/12/16 08:24 Serum or plasma sodium measurement (moles/volume) 140 mmol/L 135-145 Serum or plasma potassium measurement (moles/volume) 3.7 mmol/L 3.6-5.0 Serum or plasma chloride measurement (moles/volume) 104 mmol/L 98-107 Carbon dioxide 24 mmol/L 21-32 Serum or plasma anion gap determination (moles/volume) 12 mmol/L 5-14 Serum or plasma urea nitrogen measurement (mass/volume) 12 mg/dL 7-18 Serum or plasma creatinine measurement (mass/volume) 1.14 mg/dL 0.60-1.30 Serum or plasma urea nitrogen/creatinine mass ratio 11 NRG Serum or plasma creatinine measurement with calculation of estimated glomerular filtration rate > NRG Serum or plasma glucose measurement (mass/volume) 128 mg/dL 70-105 Serum or plasma calcium measurement (mass/volume) 9.1 mg/dL 8.5-10.1 Serum or plasma total bilirubin measurement (mass/volume) 0.3 mg/dL 0.1-1.0 Serum or plasma alkaline phosphatase measurement (enzymatic activity/volume) 47 U/L 40-136 Serum or plasma aspartate aminotransferase measurement (enzymatic activity/ volume) 17 U/L 5-34 Serum or plasma alanine aminotransferase measurement (enzymatic activity/volume ) 28 U/L 0-55 Serum or plasma protein measurement (mass/volume) 7.1 g/dL 6.4-8.2 Serum or plasma albumin measurement (mass/volume) 4.5 g/dL 3.2-4.5 Lipid 1996 panel - 07/12/16 08:24 Serum or plasma triglyceride measurement (mass/volume) 88 mg/dL <150 Serum or plasma cholesterol measurement (mass/volume) 192 mg/dL < 200 Serum or plasma cholesterol in HDL measurement (mass/volume) 39 mg/ dL 40-60 Cholesterol in LDL [mass/volume] in serum or plasma by direct assay 145 mg/dL 1-129 Serum or plasma cholesterol in VLDL measurement (mass/volume) 18 mg/ dL 5-40 Methicillin resistant Staphylococcus aureus (MRSA) screening culture - 08:24 Methicillin resistant Staphylococcus aureus (MRSA) screening culture NEG [facility] Comprehensive metabolic panel - 09/08/16 09:40 Serum or plasma sodium measurement (moles/volume) 145 mmol/L 135-145 Serum or plasma potassium measurement (moles/volume) 4.8 mmol/L 3.6-5.0 Serum or plasma chloride measurement (moles/volume) 108 mmol/L 98-107 Carbon dioxide 29 mmol/L 21-32 Serum or plasma anion gap determination (moles/volume) 8 mmol/L 5-14 Serum or plasma urea nitrogen measurement (mass/volume) 11 mg/dL 7-18 Serum or plasma creatinine measurement (mass/volume) 1.07 mg/dL 0.60-1.30 Serum or plasma urea nitrogen/creatinine mass ratio 10 NRG Serum or plasma creatinine measurement with calculation of estimated glomerular filtration rate > NRG Serum or plasma glucose measurement (mass/volume) 129 mg/dL 70-105 Serum or plasma calcium measurement (mass/volume) 9.3 mg/dL 8.5-10.1 Serum or plasma total bilirubin measurement (mass/volume) 0.3 mg/dL 0.1-1.0 Serum or plasma alkaline phosphatase measurement (enzymatic activity/volume) 58 U/L 40-136 Serum or plasma aspartate aminotransferase measurement (enzymatic activity/ volume) 19 U/L 5-34 Serum or plasma alanine aminotransferase measurement (enzymatic activity/volume ) 28 U/L 0-55 Serum or plasma protein measurement (mass/volume) 6.9 g/dL 6.4-8.2 Serum or plasma albumin measurement (mass/volume) 4.2 g/dL 3.2-4.5 Lipid 1996 panel - 09/08/16 09:40 Serum or plasma triglyceride measurement (mass/volume) 76 mg/dL <150 Serum or plasma cholesterol measurement (mass/volume) 140 mg/dL < 200 Serum or plasma cholesterol in HDL measurement (mass/volume) 32 mg/ dL 40-60 Cholesterol in LDL [mass/volume] in serum or plasma by direct assay 91 mg/dL 1-129 Serum or plasma cholesterol in VLDL measurement (mass/volume) 15 mg/ dL 5-40 [id number] - 09/19/16 10:41 Serum or plasma urea nitrogen measurement (mass/volume) 13 mg/dL 7-18 Serum or plasma creatinine measurement (mass/volume) 1.07 mg/dL 0.60-1.30 Serum or plasma urea nitrogen/creatinine mass ratio 12 NRG Serum or plasma creatinine measurement with calculation of estimated glomerular filtration rate > NR Comprehensive metabolic panel - 10/18/16 16:00 Serum or plasma sodium measurement (moles/volume) 143 mmol/L 135-145 Serum or plasma potassium measurement (moles/volume) 4.0 mmol/L 3.6-5.0 Serum or plasma chloride measurement (moles/volume) 107 mmol/L 98-107 Carbon dioxide 28 mmol/L 21-32 Serum or plasma anion gap determination (moles/volume) 8 mmol/L 5-14 Serum or plasma urea nitrogen measurement (mass/volume) 9 mg/dL 7-18 Serum or plasma creatinine measurement (mass/volume) 0.96 mg/dL 0.60-1.30 Serum or plasma urea nitrogen/creatinine mass ratio 9 NRG Serum or plasma creatinine measurement with calculation of estimated glomerular filtration rate > NRG Serum or plasma glucose measurement (mass/volume) 140 mg/dL 70-105 Serum or plasma calcium measurement (mass/volume) 9.5 mg/dL 8.5-10.1 Serum or plasma total bilirubin measurement (mass/volume) 0.3 mg/dL 0.1-1.0 Serum or plasma alkaline phosphatase measurement (enzymatic activity/volume) 59 U/L 40-136 Serum or plasma aspartate aminotransferase measurement (enzymatic activity/ volume) 16 U/L 5-34 Serum or plasma alanine aminotransferase measurement (enzymatic activity/volume ) 29 U/L 0-55 Serum or plasma protein measurement (mass/volume) 6.7 g/dL 6.4-8.2 Serum or plasma albumin measurement (mass/volume) 4.2 g/dL 3.2-4.5 Lipid 1996 panel - 10/18/16 16:00 Serum or plasma triglyceride measurement (mass/volume) 98 mg/dL <150 Serum or plasma cholesterol measurement (mass/volume) 130 mg/dL < 200 Serum or plasma cholesterol in HDL measurement (mass/volume) 44 mg/ dL 40-60 Cholesterol in LDL [mass/volume] in serum or plasma by direct assay 71 mg/dL 1-129 Serum or plasma cholesterol in VLDL measurement (mass/volume) 20 mg/ dL 5-40 THYROID STIMULATING HORMONE - 10/18/16 16:00 THYROID STIMULATING HORMONE 0.67 u[iU]/mL 0.35-4.94 CBC With Differential/Platelet - 11/04/16 11:41 WBC 12.5 x10E3/uL 3.4-10.8 RBC 4.95 x10E6/uL 4.14-5.80 Hemoglobin 14.6 g/dL 12.6-17.7 Hematocrit 44.5 % 37.5-51.0 MCV 90 fL 79-97 MCH 29.5 pg 26.6-33.0 MCHC 32.8 g/dL 31.5-35.7 RDW 13.3 % 12.3-15.4 Platelets 355 x10E3/uL 150-379 Neutrophils 62 % Lymphs 27 % Monocytes 8 % Eos 2 % Basos 1 % Neutrophils (Absolute) 7.8 x10E3/uL 1.4-7.0 Lymphs (Absolute) 3.4 x10E3/uL 0.7-3.1 Monocytes(Absolute) 1.0 x10E3/uL 0.1-0.9 Eos (Absolute) 0.2 x10E3/uL 0.0-0.4 Baso (Absolute) 0.1 x10E3/uL 0.0-0.2 Immature Granulocytes 0 % Immature Grans (Abs) 0.0 x10E3/uL 0.0-0.1 CBC With Differential/Platelet - 12/09/16 10:25 WBC 11.7 x10E3/uL 3.4-10.8 RBC 4.99 x10E6/uL 4.14-5.80 Hemoglobin 14.9 g/dL 12.6-17.7 Hematocrit 44.4 % 37.5-51.0 MCV 89 fL 79-97 MCH 29.9 pg 26.6-33.0 MCHC 33.6 g/dL 31.5-35.7 RDW 13.7 % 12.3-15.4 Platelets 390 x10E3/uL 150-379 Neutrophils 58 % Lymphs 30 % Monocytes 9 % Eos 2 % Basos 0 % Neutrophils (Absolute) 6.8 x10E3/uL 1.4-7.0 Lymphs (Absolute) 3.4 x10E3/uL 0.7-3.1 Monocytes(Absolute) 1.0 x10E3/uL 0.1-0.9 Eos (Absolute) 0.3 x10E3/uL 0.0-0.4 Baso (Absolute) 0.0 x10E3/uL 0.0-0.2 Immature Granulocytes 1 % Immature Grans (Abs) 0.1 x10E3/uL 0.0-0.1 Hematopath Consultation, Smear - 12/09/16 10:25 WBC Note: RBC Normal PLTs Comment Pathologist Comment CBC+Platelet+Hem Review - 01/09/17 14:38 WBC 10.4 x10E3/uL 3.4-10.8 RBC 5.09 x10E6/uL 4.14-5.80 Hemoglobin 15.2 g/dL 12.6-17.7 Hematocrit 44.0 % 37.5-51.0 MCV 86 fL 79-97 MCH 29.9 pg 26.6-33.0 MCHC 34.5 g/dL 31.5-35.7 RDW 13.0 % 12.3-15.4 Platelets 409 x10E3/uL 150-379 Neutrophils 69 % Lymphs 22 % Monocytes 8 % Eos 1 % Basos 0 % Neutrophils Absolute 7.2 X10E3/uL 1.4-7.0 Lymphs (Absolute) 2.3 X10E3/uL 0.7-3.1 Monocytes(Absolute) 0.8 X10E3/uL 0.1-0.9 Eos (Absolute Value) 0.1 X10E3/uL 0.0-0.4 Baso(Absolute) 0.0 X10E3/uL 0.0-0.2 Differential Comment Note: RBC Comment Note: Normal Platelet Comment Note: Adequate TSH - 01/12/17 11:50 TSH 1.660 uIU/mL 0.450-4.500 Methicillin resistant Staphylococcus aureus (MRSA) screening culture - 10:40 Methicillin resistant Staphylococcus aureus (MRSA) screening culture NEG NRG Capillary blood glucose measurement by glucometer (mass/volume) - 07/13/17 10: 53 Capillary blood glucose measurement by glucometer (mass/volume) 132 mg/dL 70-110 Bacteria identification in isolate by anaerobe culture - 08/18/17 11:11 Bacteria identification in isolate by anaerobe culture NOANA NRG Gram stain microscopy - 08/18/17 11:11 GRAM STAIN RESULT NO WBC'S OR BACTERIA OBSERVED NRG Bacteria identification in wound by culture - 08/18/17 11:11 Bacteria identification in wound by culture [id number] [facility] FREE TEXT EXTERNAL SENSITIVITY REPORTED 08/21/17 7:50 NRG QUANTITY OF GROWTH Scant Growth NRG MRSA AGAR Screening test for MRSA is NEGATIVE (Final to follow) NR Bacterial susceptibility panel - 08/18/17 11:11 Gentamicin susceptibility test by minimum inhibitory concentration > = NRG Trimethoprim/sulfamethoxazole susceptibility test by minimum inhibitoryconcentration R NRG Ampicillin susceptibility test by minimum inhibitory concentration > = NRG Tobramycin susceptibility test by minimum inhibitory concentration 8 NRG Cefazolin susceptibility test by minimum inhibitory concentration 8 NRG Ceftriaxone susceptibility test by minimum inhibitory concentration <= NRG Ampicillin/sulbactam susceptibility test by minimum inhibitory concentration R NRG Piperacillin/tazobactam susceptibility test by minimum inhibitory concentration S NRG Ciprofloxacin susceptibility test by minimum inhibitory concentration <= NRG Meropenem susceptibility test by minimum inhibitory concentration < = NRG Aztreonam susceptibility test by minimum inhibitory concentration < = NRG Extended spectrum beta lactamase (ESBL) producing bacteria susceptibility test by minimum inhibitory concentration - NRG Amikacin susceptibility test by minimum inhibitory concentration S [facility] Bacterial susceptibility panel - 08/18/17 11:11 Oxacillin susceptibility test by minimum inhibitory concentration < = NRG Gentamicin susceptibility test by minimum inhibitory concentration < = NRG Clindamycin susceptibility test by minimum inhibitory concentration <= NRG Erythromycin susceptibility test by minimum inhibitory concentration 0.5 NRG Trimethoprim/sulfamethoxazole susceptibility test by minimum inhibitoryconcentration S NRG Vancomycin susceptibility test by minimum inhibitory concentration < = NRG Levofloxacin susceptibility test by minimum inhibitory concentration <= NRG Rifampin susceptibility test by minimum inhibitory concentration <= NRG Tetracycline susceptibility test by minimum inhibitory concentration >= NRG Linezolid susceptibility test by minimum inhibitory concentration 1 [facility] Bacterial susceptibility panel - 08/18/17 11:11 Oxacillin susceptibility test by minimum inhibitory concentration < = NRG Gentamicin susceptibility test by minimum inhibitory concentration < = NRG Clindamycin susceptibility test by minimum inhibitory concentration <= NRG Erythromycin susceptibility test by minimum inhibitory concentration <= NRG Trimethoprim/sulfamethoxazole susceptibility test by minimum inhibitoryconcentration S NRG Vancomycin susceptibility test by minimum inhibitory concentration 1 NRG Levofloxacin susceptibility test by minimum inhibitory concentration <= NRG Rifampin susceptibility test by minimum inhibitory concentration <= NRG Tetracycline susceptibility test by minimum inhibitory concentration <= NRG Bacteria identification in isolate by anaerobe culture - 09/25/17 10:00 Bacteria identification in isolate by anaerobe culture NG NRG Gram stain microscopy - 09/25/17 10:00 GRAM STAIN RESULT FEW WBC'S, NO BACTERIA OBSERVED NRG Bacteria identification in wound by culture - 09/25/17 10:00 Bacteria identification in wound by culture NG NRG Hemoglobin A1c - 10/31/17 13:50 Blood hemoglobin A1C measurement (mass/volume) 6.7 % 4.0- 5.6 MEAN BLOOD GLUCOSE 146 % <=126 Automated blood complete blood count (hemogram) panel - 11/07/17 08:09 Blood leukocytes automated count (number/volume) 10.6 10*3/uL 4.3-11.0 Blood erythrocytes automated count (number/volume) 4.74 10*6/uL 4.35-5.85 Venous blood hemoglobin measurement (mass/volume) 14.0 g/dL 13.3-17.7 Blood hematocrit (volume fraction) 42 % 40-54 Automated erythrocyte mean corpuscular volume 88 [foz_us] 80-99 Automated erythrocyte mean corpuscular hemoglobin (mass per erythrocyte) 30 pg 25-34 Automated erythrocyte mean corpuscular hemoglobin concentration measurement ( mass/volume) 34 g/dL 32-36 Automated erythrocyte distribution width ratio 14.5 % 10.0-14.5 Automated blood platelet count (count/volume) 385 10*3/uL 130-400 Automated blood platelet mean volume measurement 9.2 [foz_us] 7.4-10.4 PT panel in platelet poor plasma by coagulation assay - 11/07/17 08:09 Prothrombin time (PT) in platelet poor plasma by coagulation assay 12.9 s 12.2-14.7 INR in platelet poor plasma or blood by coagulation assay 1.0 0.8-1.4 Activated partial thromboplastin time (aPTT) in platelet poor plasma bycoagulation assay - 11/07/17 08:09 Activated partial thromboplastin time (aPTT) in platelet poor plasma bycoagulation assay 27 s 24-35 Comprehensive metabolic panel - 11/07/17 08:09 Serum or plasma sodium measurement (moles/volume) 142 mmol/L 135-145 Serum or plasma potassium measurement (moles/volume) 3.7 mmol/L 3.6-5.0 Serum or plasma chloride measurement (moles/volume) 104 mmol/L 98-107 Carbon dioxide 25 mmol/L 21-32 Serum or plasma anion gap determination (moles/volume) 13 mmol/L 5-14 Serum or plasma urea nitrogen measurement (mass/volume) 7 mg/dL 7-18 Serum or plasma creatinine measurement (mass/volume) 0.93 mg/dL 0.60-1.30 Serum or plasma urea nitrogen/creatinine mass ratio 8 NRG Serum or plasma creatinine measurement with calculation of estimated glomerular filtration rate > NRG Serum or plasma glucose measurement (mass/volume) 121 mg/dL 70-105 Serum or plasma calcium measurement (mass/volume) 9.0 mg/dL 8.5-10.1 Serum or plasma total bilirubin measurement (mass/volume) 0.3 mg/dL 0.1-1.0 Serum or plasma alkaline phosphatase measurement (enzymatic activity/volume) 62 U/L 40-136 Serum or plasma aspartate aminotransferase measurement (enzymatic activity/ volume) 20 U/L 5-34 Serum or plasma alanine aminotransferase measurement (enzymatic activity/volume ) 38 U/L 0-55 Serum or plasma protein measurement (mass/volume) 7.3 g/dL 6.4-8.2 Serum or plasma albumin measurement (mass/volume) 4.3 g/dL 3.2-4.5 Lipid 1996 panel - 11/07/17 08:09 Serum or plasma triglyceride measurement (mass/volume) 96 mg/dL <150 Serum or plasma cholesterol measurement (mass/volume) 139 mg/dL < 200 Serum or plasma cholesterol in HDL measurement (mass/volume) 43 mg/ dL 40-60 Cholesterol in LDL [mass/volume] in serum or plasma by direct assay 84 mg/dL 1-129 Serum or plasma cholesterol in VLDL measurement (mass/volume) 19 mg/ dL 5-40 Methicillin resistant Staphylococcus aureus (MRSA) screening culture - 08:09 Methicillin resistant Staphylococcus aureus (MRSA) screening culture NEG NRG Bacteria identification in isolate by anaerobe culture - 11/08/17 10:45 Bacteria identification in isolate by anaerobe culture [facility] Gram stain microscopy - 11/08/17 10:45 GRAM STAIN RESULT NO WBC'S OR BACTERIA OBSERVED NRG Bacteria identification in wound by culture - 11/08/17 10:45 Bacteria identification in wound by culture [facility] CBC - 11/30/17 11:00 WHITE BLOOD CELL COUNT 13.1 Thousand/uL 3.8-10.8 RED BLOOD CELL COUNT 4.72 Million/uL 4.20-5.80 HEMOGLOBIN 13.8 g/dL 13.2-17.1 HEMATOCRIT 42.4 % 38.5-50.0 MCV 89.8 fL 80.0-100.0 MCH 29.2 pg 27.0-33.0 MCHC 32.5 g/dL 32.0-36.0 RDW 13.2 % 11.0-15.0 PLATELET COUNT 383 Thousand/uL 140-400 MPV 9.8 fL 7.5-12.5 ABSOLUTE NEUTROPHILS 9209 cells/uL 0414-3142 ABSOLUTE LYMPHOCYTES 2699 cells/uL 850-3900 ABSOLUTE MONOCYTES 1035 cells/uL 200-950 ABSOLUTE EOSINOPHILS 92 cells/uL 15-500 ABSOLUTE BASOPHILS 66 cells/uL 0-200 NEUTROPHILS 70.3 % NRG LYMPHOCYTES 20.6 % NRG MONOCYTES 7.9 % NRG EOSINOPHILS 0.7 % NRG BASOPHILS 0.5 % NRG CMP - 03/07/18 09:55 GLUCOSE 94 mg/dL 65-99 UREA NITROGEN (BUN) 14 mg/dL 7-25 CREATININE 1.09 mg/dL 0.70-1.33 eGFR NON-AFR. [place] 75 mL/min/1.73m2 > OR=60 eGFR 87 mL/min/1.73m2 > OR=60 BUN/CREATININE RATIO NOT APPLICABLE (calc) 6-22 SODIUM 143 mmol/L 135-146 POTASSIUM 4.1 mmol/L 3.5-5.3 CHLORIDE 104 mmol/L 98-110 CARBON DIOXIDE 28 mmol/L 20-32 CALCIUM 9.8 mg/dL 8.6-10.3 PROTEIN, TOTAL 7.4 g/dL 6.1-8.1 ALBUMIN 4.7 g/dL 3.6-5.1 GLOBULIN 2.7 g/dL (calc) 1.9-3.7 ALBUMIN/GLOBULIN RATIO 1.7 (calc) 1.0-2.5 BILIRUBIN, TOTAL 0.4 mg/dL 0.2-1.2 ALKALINE PHOSPHATASE 59 U/L 40-115 AST 19 U/L 10-35 ALT 34 U/L 9-46 CBC - 03/07/18 09:55 WHITE BLOOD CELL COUNT 11.2 Thousand/uL 3.8-10.8 RED BLOOD CELL COUNT 5.02 Million/uL 4.20-5.80 HEMOGLOBIN 14.7 g/dL 13.2-17.1 HEMATOCRIT 44.5 % 38.5-50.0 MCV 88.6 fL 80.0-100.0 MCH 29.3 pg 27.0-33.0 MCHC 33.0 g/dL 32.0-36.0 RDW 12.7 % 11.0-15.0 PLATELET COUNT 354 Thousand/uL 140-400 MPV 9.9 fL 7.5-12.5 ABSOLUTE NEUTROPHILS 6810 cells/uL 2802-4738 ABSOLUTE LYMPHOCYTES 3259 cells/uL 850-3900 ABSOLUTE MONOCYTES 896 cells/uL 200-950 ABSOLUTE EOSINOPHILS 168 cells/uL 15-500 ABSOLUTE BASOPHILS 67 cells/uL 0-200 NEUTROPHILS 60.8 % NRG LYMPHOCYTES 29.1 % NRG MONOCYTES 8.0 % NRG EOSINOPHILS 1.5 % NRG BASOPHILS 0.6 % NRG Encounters ACCT No. Visit Date/Time Discharge Status Pt. Type Provider Facility Loc./Unit Complaint [id number] 03/26/2018 13:54:00 03/26/2018 23:59:59 CLS Preadmit JOHN HUFFMAN [employer] [facility] RT SOB [id number] 03/26/2018 13:48:00 03/26/2018 23:59:59 CLS Preadmit JOHN HUFFMAN [employer]NALY[employer] [facility] RAD SOB [id number] 03/21/2018 10:11:00 03/21/2018 23:59:59 CLS Outpatient DORIS LAYTON MD [facility] RAD LUMBAR BACK PAIN [id number] 03/19/2018 10:11:00 03/19/2018 23:59:59 CLS Outpatient DORIS LAYTON MD [facility] PULM J43.1 PANLOBULAR EMPHYZEMA [id number] 12/11/2017 09:37:00 12/11/2017 23:59:59 CLS Outpatient MAN ALVARES MD [facility] WOUNDCARE [id number] 12/05/2017 14:50:00 12/05/2017 23:59:59 CLS Outpatient MAN ALVARES MD [facility] WOUNDCARE [id number] 11/27/2017 09:59:00 11/27/2017 23:59:59 CLS Outpatient MAN ALVARES MD [facility] WOUNDCARE [id number] 11/20/2017 09:55:00 11/20/2017 23:59:59 CLS Outpatient MAN ALVARES MD [facility] WOUNDCARE [id number] 11/13/2017 10:25:00 11/13/2017 23:59:59 CLS Outpatient JOE WEBER FACC, MAGDA SUN CCDS [facility] LAB R06.02,I25.10 [id number] 11/13/2017 09:48:00 11/13/2017 23:59:59 CLS Outpatient MAN ALVARES MD [facility] WOUNDCARE [id number] 11/08/2017 09:59:00 11/08/2017 23:59:59 CLS Outpatient MAN ALVARES MD [facility] WOUNDCARE [id number] 11/07/2017 07:21:00 11/07/2017 14:15:00 DIS Outpatient JOE WEBER FACC, MAGDA SUN CCDS [facility] CATH CAD,ANGINA, SOB,FATIGUE [id number] 10/31/2017 13:43:00 10/31/2017 23:59:59 CLS Outpatient MAN ALVARES MD [facility] LAB T81.31XA,L98.492 [id number] 10/31/2017 12:36:00 10/31/2017 23:59:59 CLS Outpatient MAN ALVARES MD [facility] WOUNDCARE [id number] 10/23/2017 09:53:00 10/23/2017 23:59:59 CLS Outpatient MAN ALVARES MD [facility] WOUNDCARE [id number] 10/16/2017 09:39:00 10/16/2017 23:59:59 CLS Outpatient MAN ALVARES MD [facility] WOUNDCARE [id number] 10/09/2017 09:47:00 10/09/2017 23:59:59 CLS Outpatient MAN ALVARES MD [facility] WOUNDCARE [id number] 10/04/2017 12:34:00 10/04/2017 23:59:59 CLS Outpatient MAN ALVARES MD [facility] WOUNDCARE [id number] 09/25/2017 09:48:00 09/25/2017 23:59:59 CLS Outpatient MAN ALVARES MD [facility] WOUNDCARE [id number] 09/18/2017 09:33:00 09/18/2017 23:59:59 CLS Outpatient MAN ALVARES MD [facility] WOUNDCARE [id number] 09/11/2017 09:49:00 09/11/2017 23:59:59 CLS Outpatient MAN ALVARES MD [facility] WOUNDCARE [id number] 09/04/2017 09:45:00 09/04/2017 23:59:59 CLS Outpatient MAN ALVARES MD [facility] WOUNDCARE [id number] 08/31/2017 09:59:00 08/31/2017 23:59:59 CLS Outpatient DYLAN PRADHAN MD [facility] WOUNDCARE [id number] 08/28/2017 09:57:00 08/28/2017 23:59:59 CLS Outpatient MAN ALVARES MD [facility] WOUNDCARE [id number] 08/25/2017 10:19:00 08/25/2017 23:59:59 CLS Outpatient MAN ALVARES MD [facility] WOUNDCARE [id number] 08/25/2017 10:14:00 08/25/2017 23:59:59 CLS Outpatient DORIS LAYTON MD [facility] RAD Z72.0 TOBACCO USE [id number] 08/18/2017 09:59:00 08/18/2017 23:59:59 CLS Outpatient MAN ALVARES MD [facility] WOUNDCARE [id number] 08/15/2017 10:52:00 08/15/2017 23:59:59 CLS Outpatient JOE WEBER FACCMAGDA FACP CCDS [facility] CARD R06.02 SOB [id number] 07/13/2017 10:04:00 07/13/2017 16:10:00 DIS Outpatient GALINA WALKER MD [facility] SDC LIPOMA [id number] 07/05/2017 05:29:00 07/05/2017 11:19:00 DIS Outpatient GALINA WALKER MD [facility] PREOP LIPOMA [id number] 04/14/2017 11:38:00 04/14/2017 23:59:59 CLS Outpatient EMELIA GLOVER [facility] LAB E78.4, I10 [id number] 01/17/2017 09:22:00 01/17/2017 23:59:59 CLS Preadmit ASHWIN KRISHNAN [facility] ONC [id number] 11/15/2016 09:58:00 11/15/2016 23:59:59 CLS Outpatient DORIS LAYTON MD [facility] RAD M47.892 [id number] 10/18/2016 15:55:00 10/18/2016 23:59:59 CLS Outpatient EMELIA GLOVER SKI TECHNICIAN [facility] LAB HLD,HTN,SOB [id number] 09/23/2016 10:01:00 09/23/2016 10:56:00 DIS Outpatient NATHANIEL MONSIVAIS MD [facility] CARD DISC DISORDER [id number] 09/19/2016 10:30:00 09/19/2016 23:59:59 CLS Outpatient MAN JOHNSON MD [facility] RAD SMOKER,CHRONIC SORE THROAT [id number] 09/08/2016 09:31:00 09/08/2016 23:59:59 CLS Outpatient EMELIA GLOVERP [facility] LAB CAD,HTN [id number] 08/15/2016 12:39:00 08/15/2016 14:01:00 DIS Outpatient NATHANIEL MONSIVAIS MD [facility] CARD DISC DISORDER [id number] 07/26/2016 10:59:00 07/26/2016 23:59:59 CLS Outpatient MAGDA DIAZ MD, FACC, FACP CCDS [facility] RAD LT LEG CLAUDICATION [id number] 07/26/2016 08:54:00 07/26/2016 23:59:59 CLS Outpatient MAGDA DIAZ MD, FACC, FACP CCDS [facility] CARD SOB,CHEST DISCOMFORT,HTN [id number] 07/21/2016 07:51:00 07/21/2016 23:59:59 CLS Outpatient EMELIA GLOVERP [facility] RAD POSTOPERATIVE GROIN PSEUDOANEURYSM [id number] 07/20/2016 11:15:00 07/20/2016 23:59:59 CLS Outpatient EMELIA GLOVER SKI TECHNICIAN [facility] RAD RT GROIN PAIN [id number] 07/19/2016 20:20:00 07/19/2016 23:59:59 CLS Outpatient JT FERNANDEZ DO [facility] SLEEP BARAK [id number] 07/12/2016 07:55:00 07/12/2016 13:00:00 DIS Outpatient JOE WEBER FACC, MAGDA SUN CCDS [facility] CATH SOB,CHEST DISCOMFORT,HTN [id number] 06/29/2016 09:14:00 06/29/2016 12:15:00 DIS Outpatient GALINA WALKER MD [facility] ENDO ABDOMINAL PAIN;REFLUX [id number] 06/23/2016 05:38:00 06/23/2016 11:36:00 DIS Outpatient GALINA WALKER MD [facility] PREOP ABDOMINAL PAIN;REFLUX [id number] 06/02/2016 08:44:00 06/02/2016 23:59:59 CLS Outpatient LARRY CHING L [employer] [facility] CARD RUQ PAIN [id number] 05/20/2016 09:21:00 05/20/2016 23:59:59 CLS Outpatient CINDY CHINGIN L [employer]LY[employer] [facility] RAD RUQ PAIN [id number] 05/18/2016 10:38:00 05/18/2016 23:59:59 CLS Outpatient JT FERNANDEZ DO [facility] RAD COPD,OBESITY,TOBACCO USER ,ASTHMA [id number] 03/23/2016 13:51:00 03/23/2016 23:59:59 CLS Outpatient DORIS LAYTON MD [facility] RAD OSTEOARTHRITIS OF SPINE [id number] 09/02/2015 12:42:00 09/02/2015 23:59:59 CLS Outpatient DORIS LAYTON MD [facility] RAD ENLARGED LYMPH NODE IN NECK [id number] 08/27/2015 17:05:00 08/27/2015 23:59:59 CLS Outpatient DORIS LAYTON MD [facility] LAB CT ANGIO HEAD W/O W CONTRAST, BUN CREATINE [id number] 07/22/2015 10:03:00 07/22/2015 23:59:59 CLS Outpatient DORIS LAYTON MD [facility] RAD NECK ABCESS [id number] 03/06/2015 07:02:00 03/06/2015 07:51:00 DIS Outpatient NATHANIEL MONSIVAIS MD [facility] CARD DDD [id number] 01/27/2015 12:28:00 01/27/2015 23:59:59 CLS Outpatient SURYA CABAN MD [facility] CARD CHEST PAIN,DYSPNEA [id number] 01/22/2015 14:42:00 01/22/2015 23:59:59 CLS Outpatient DORIS LAYTON MD [facility] RAD CHRONIC LBP,DEGENERATIVE ARTHRITIS OF C S/P [id number] 12/16/2014 11:13:00 12/16/2014 23:59:59 CLS Outpatient SURYA CABAN MD [facility] CARD [id number] 11/26/2014 12:23:00 11/26/2014 23:59:59 CLS Outpatient PARISA CARD [facility] CARD [id number] 01/17/2018 09:26:00 Document Registration [id number] 2016 09:24:00 Document Registration [id number] 11/05/2016 08:06:00 Document Registration [id number] 02/13/2017 12:59:00 03/17/2017 13:35:00 DIS Outpatient BARLOW MOHINI [id number] 03/23/2016 15:24:00 06/01/2016 14:40:00 DIS Outpatient MAN LEO [id number] 01/10/2017 20:08:00 Document Registration [id number] 01/10/2018 13:00:00 01/10/2018 23:59:59 CLS Outpatient DORIS LAYTON MD [facility] [id number] 03/07/2018 09:00:00 Document Registration [id number] 11/30/2017 09:40:00 Document Registration [id number] 12/13/2016 15:07:00 Document Registration [id number] 01/13/2017 08:07:00 Document Registration
[2018-04-03] MEDS ORDERED: CEFD300C3 PO (15:07)
--- NOTE | 2018-04-03 15:07 | ED EENT ---
History of Present Illness General Chief Complaint: Ear Problems Stated Complaint: L EAR PAIN History of Present Illness Date Seen by Provider: Apr 03, 2018 Time Seen by Provider: 14:50 Initial Comments 58 year old male presents for left ear pain, irritation to his chin, and lesion on his tongue. He came here, instead of seeing his primary care provider, because he had pulmonary rehabilitation today. He here has been causing discomfort prior approximately 2 days, he denies any change in his hearing. He reports approximately one week ago, he was spraying for spiders when some of the chemicals came in contact with his lower lip and chin. He rinsed the area thoroughly with water but since then has noted some irritation. Today he noted a lump on the mid surface of his tongue. He does not have teeth so he did not cause injury to his tongue from biting it. He did eat some chips yesterday, that were rough edged. He denies bleeding or pain from his tongue lesion. Timing/Duration: intermittent Location: ear (L), mouth (Tongue), other (chin) Prearrival Treatment: no prearrival treatment Associated Symptoms: denies symptoms Allergies and Home Medications Allergies Coded Allergies: Penicillins (Unverified Allergy, Severe, 07/05/17) Tetracyclines (Verified Allergy, Intermediate, N/V, 07/05/17) ampicillin (Verified Allergy, Mild, N/V, GI UPSET, 07/05/17) Home Medications Albuterol Sulfate 6.7 Gm Hfa.aer.ad, 2 PUFF IH Q4H PRN for SHORTNESS OF BREATH, (Reported) Aspirin 81 Mg Tab.chew, 81 MG PO HS, (Reported) Atorvastatin Calcium 40 Mg Tablet, 40 MG PO HS, (Reported) Baclofen 10 Mg Tablet, 10 MG PO HS, (Reported) Budesonide/Formoterol Fumarate 10.2 Gm Hfa.aer.ad, 2 PUFF IH BID, (Reported) Bupropion HCl 100 Mg Tablet, 100 MG PO TID, (Reported) Cefdinir 300 Mg Capsule, 300 MG PO BID Prescribed by: AMY JESUS on 04/03/18 1503 Cetirizine HCl 10 Mg Tablet, 10 MG PO DAILY, (Reported) Citalopram Hydrobromide 20 Mg Tablet, 30 MG PO DAILY, (Reported) TAKES 1 & 1/2 (20MG) TABLET Dexlansoprazole 60 Mg Cap., 60 MG PO DAILY, (Reported) Furosemide 40 Mg Tablet, 40 MG PO DAILY Prescribed by: MAGDA DIAZ on 11/07/17 1128 Hydrocodone/Acetaminophen 1 Each Tablet, 1-2 TAB PO Q4H PRN for PAIN-MODERATE, ( Reported) Ipratropium/Albuterol Sulfate 3 Ml Ampul.neb, 3 ML NEB TID, (Reported) Metformin HCl 1,000 Mg Tablet, 1,000 MG PO BID, (Reported) Montelukast Sodium 10 Mg Tablet, 10 MG PO HS, (Reported) Multivitamin 1 Each Tablet, 1 TAB PO DAILY, (Reported) Potassium Chloride 20 Meq Tablet.er, 20 MEQ PO DAILY Prescribed by: MAGDA DIAZ on 11/07/17 1128 Quetiapine Fumarate 200 Mg Tablet, 200 MG PO HS, (Reported) Sucralfate 1 Gm Tablet, 1 GM PO TID PRN for STOMACH UPSET, (Reported) Trazodone HCl 150 Mg Tablet, 75 MG PO HS, (Reported) TAKES 1/2 (150MG) TABLET Patient Home Medication List Home Medication List Reviewed: Yes Review of Systems Review of Systems Constitutional: no symptoms reported, see HPI Ears: See HPI, Pain (left ear) Mouth: see HPI, other (lesion to tongue) All Other Systems Reviewed Negative Unless Noted: Yes Past Cabtdyv-Bgppac-Syzdif Hx Past Med/Social Hx: Reviewed Nursing Past Med/Soc Hx Patient Social History Alcohol Use: Denies Use Recreational Drug Use: No Smoking Status: Current Someday Smoker Type Used: Cigarettes Recent Hopitalizations: No Immunizations Up To Date Date of Pneumonia Vaccine: Jul 10, 2017 Seasonal Allergies Seasonal Allergies: Yes Past Medical History Surgeries: Yes (L INGUINAL HERNIA, R ELBOW-STITCHES, LYMPH NODE NECK, CYST R JAW) Eye Surgery Respiratory: Yes (2L NC @ NIGHT) COPD Cardiac: Yes (MINOR HEART ATTACK-NO CATH R/T NO INSURANCE) Heart Attack, High Cholesterol, Hypertension Neurological: Yes Stroke Reproductive Disorders: No Sexually Transmitted Disease: No HIV/AIDS: No Kidney Stones Gastrointestinal: Yes Gastroesophageal Reflux, Chronic Diarrhea Musculoskeletal: Yes (BONE SPURS, HERNIATED DISC, SPINAL STENOSIS) Arthritis, Chronic Back Pain Endocrine: Yes Loss of Vision: Bilateral Hearing Impairment: Denies Cancer: No Psychosocial: Yes Depression Integumentary: No Blood Disorders: No Adverse Reaction/Blood Tranf: No (N/A) Physical Exam Vital Signs Vital Signs - First Documented 04/03/18 04/03/18 14:36 15:21 Temp 99.0 Pulse 100 Resp 18 B/P (MAP) 129/88 (102) Pulse Ox 96 O2 Delivery Room Air Height, Weight, BMI Height: 5'8.00" Weight: 239lbs. 0.0oz. 108.613804to; 36.3 BMI Method: General Appearance: WD/WN, no apparent distress Eyes: bilateral eye normal inspection, bilateral eye PERRL, bilateral eye EOMI Ears: right ear TM normal; left ear TM red, left ear TM bulging; bilateral ear auricle normal, bilateral ear canal normal Nose: normal inspection; No active bleeding, No discharge Mouth/Throat: pharynx normal; No mandibular swelling, No maxillary swelling; other (small, round, soft lesion noted to central dorsal surface of tongue. Non- tender, no induration, no bleeding. No color change.) Neck: non-tender, full range of motion, supple, normal inspection; No lymphadenopathy (R); lymphadenopathy (L) Cardiovascular: normal peripheral pulses, regular rate, rhythm Respiratory: chest non-tender, lungs clear, normal breath sounds Gastrointestinal: normal bowel sounds, non tender, soft Neurologic/Psychiatric: no motor/sensory deficits, alert, normal mood/affect, oriented x 3 Skin: normal color, warm/dry Progress/Results/Core Measures Results/Orders Vital Signs/I&O 04/03/18 04/03/18 14:36 15:21 Temp 99.0 Pulse 100 Resp 18 B/P (MAP) 129/88 (102) 129/88 (102) Pulse Ox 96 O2 Delivery Room Air Room Air Progress Progress Note : Time: 14:50 Progress Note Patient seen and evaluated, irritation to chin cleaned with sterile saline, the plane about ointment applied. 1500 discharge instructions and return precautions reviewed with the patient and his . All questions answered. Departure Impression Primary Impression: Otitis media Qualified Codes: H66.002 - Acute suppurative otitis media without spontaneous rupture of ear drum, left ear Additional Impressions: Cellulitis of chin Lesion of tongue Disposition: 01 HOME, SELF-CARE Condition: Improved Departure-Patient Inst. Decision time for Depature: 15:00 Referrals: DORIS LAYTON MD (PCP/Family) Primary Care Physician Patient Instructions: Cellulitis (Skin Infection), Adult (DC), Ear Infections ( Otitis Media) (DC) Add. Discharge Instructions: Clean chin with Hibiclens twice a day and apply triple antibiotic ointment. Take antibiotic as prescribed. Follow up with your primary care provider [facility] in 7-10 days for recheck of the ear. You may take Tylenol 650 mg alternating with ibuprofen 600 mg every 4 hours for pain or fever. Follow-up with your dentist or primary care provider for the lesion to your tongue. Return to emergency department for new, urgent health care problems. All discharge instructions reviewed with patient and/or family. Voiced understanding. Scripts Cefdinir (Cefdinir) 300 Mg Capsule 300 MG PO BID for 5 Days, #10 CAP 0 Refills Prov: AMY JESUS 04/03/18 AMY JESUS Apr 03, 2018 15:07
[2018-04-03 15:21] VITALS: BP 129/88
== END 2018-04-03 15:21 | disposition home or self-care (01) ==
LOC: EDUNIT# 14:30 → ER 14:31
DX: H66.92 Otitis media, unspecified, left ear (principal); L03.211 Cellulitis of face; K13.70 Unspecified lesions of oral mucosa; J44.9 Chronic obstructive pulmonary disease, unspecified; I25.2 Old myocardial infarction; E78.00 Pure hypercholesterolemia, unspecified; K21.9 Gastro-esophageal reflux disease without esophagitis; I10 Essential (primary) hypertension; F32.9 Major depressive disorder, single episode, unspecified; F17.210 Nicotine dependence, cigarettes, uncomplicated; Z87.19 Personal history of other diseases of the digestive system; Z98.890 Other specified postprocedural states; Z86.73 Personal history of transient ischemic attack (TIA), and cerebral infarction without residual deficits; Z88.0 Allergy status to penicillin; Z88.1 Allergy status to other antibiotic agents; Z79.51 Long term (current) use of inhaled steroids; Z79.82 Long term (current) use of aspirin; Z79.84 Long term (current) use of oral hypoglycemic drugs
CPT/HCPCS: 99282

== ENCOUNTER 2018-04-06 11:26 | Emergency (ER) | payer MEDICAID ==
[~2018-04-06] VITALS: Ht 172.7 cm; Wt 104.3 kg
[~2018-04-06 11:26] MED LIST changes: +CEFD300C3 PO
--- NOTE | 2018-04-06 11:55 | ED EENT ---
History of Present Illness General Chief Complaint: Ear Problems Stated Complaint: EAR PAIN Nursing Triage Note: Pt ambulated to rm 7. Pt c/o L ear pain that began on Monday. Pt seen in ED on Monday and prescribed cefdinir. Pt then seen at [facility] Monday and prescribed acyclovir. Pt stated pt got wasp and hornet spray in the L ear earlier in the week. Source: patient, family Exam Limitations: no limitations (LALITHA CORRALES MD) History of Present Illness Date Seen by Provider: Apr 06, 2018 Time Seen by Provider: 11:51 Initial Comments The patient is a 58-year-old white male was seen here on Tuesday 04/03. His complaint at that time had to do with ear problems. He brings a spray can of hornet and WASP [place]. He states about 2 weeks ago he was spraying this and they were unchanged from before back into his face. He has had trouble with his left ear hurting and a decline in hearing. He is edentulous but has developed sores on his tongue and left lower lip as well. He was seen in a walk -in clinic this week as well and was given some topicals for the lip and acyclovir. Does not think any of this is helping. The ear continues to hurt but the tongue and lip not so much. Timing/Duration: last week Severity: mild, moderate Prearrival Treatment: other (LALITHA CORRALES MD) Allergies and Home Medications Allergies Coded Allergies: Penicillins (Unverified Allergy, Severe, 07/05/17) Tetracyclines (Verified Allergy, Intermediate, N/V, 07/05/17) ampicillin (Verified Allergy, Mild, N/V, GI UPSET, 07/05/17) Home Medications Albuterol Sulfate 6.7 Gm Hfa.aer.ad, 2 PUFF IH Q4H PRN for SHORTNESS OF BREATH, (Reported) Aspirin 81 Mg Tab.chew, 81 MG PO HS, (Reported) Atorvastatin Calcium 40 Mg Tablet, 40 MG PO HS, (Reported) Azithromycin 250 Mg Tablet, 250 MG PO UD TAKE 2 TABLETS ON DAY ONE THEN TAKE 1 TABLET DAILY FOR FOUR MORE DAYS Prescribed by: NARAYAN MANDUJANO on 04/06/18 1423 Baclofen 10 Mg Tablet, 10 MG PO HS, (Reported) Budesonide/Formoterol Fumarate 10.2 Gm Hfa.aer.ad, 2 PUFF IH BID, (Reported) Bupropion HCl 100 Mg Tablet, 100 MG PO TID, (Reported) Cefdinir 300 Mg Capsule, 300 MG PO BID Prescribed by: AMY JESUS on 04/03/18 1507 Cetirizine HCl 10 Mg Tablet, 10 MG PO DAILY, (Reported) Citalopram Hydrobromide 20 Mg Tablet, 30 MG PO DAILY, (Reported) TAKES 1 & 1/2 (20MG) TABLET Dexlansoprazole 60 Mg bp, 60 MG PO DAILY, (Reported) Furosemide 40 Mg Tablet, 40 MG PO DAILY Prescribed by: MAGDA DIAZ on 11/07/17 1128 Hydrocodone/Acetaminophen 1 Each Tablet, 1-2 TAB PO Q4H PRN for PAIN-MODERATE, ( Reported) Ipratropium/Albuterol Sulfate 3 Ml Ampul.neb, 3 ML NEB TID, (Reported) Metformin HCl 1,000 Mg Tablet, 1,000 MG PO BID, (Reported) Montelukast Sodium 10 Mg Tablet, 10 MG PO HS, (Reported) Multivitamin 1 Each Tablet, 1 TAB PO DAILY, (Reported) Potassium Chloride 20 Meq Tablet.er, 20 MEQ PO DAILY Prescribed by: MAGDA DIAZ on 11/07/17 1128 Quetiapine Fumarate 200 Mg Tablet, 200 MG PO HS, (Reported) Sucralfate 1 Gm Tablet, 1 GM PO TID PRN for STOMACH UPSET, (Reported) Trazodone HCl 150 Mg Tablet, 75 MG PO HS, (Reported) TAKES 1/2 (150MG) TABLET Patient Home Medication List Home Medication List Reviewed: Yes (NARAYAN RAMOS MD) Review of Systems Review of Systems Constitutional: see HPI Eyes: No Symptoms Reported Ears: No Symptoms Reported Nose: no symptoms reported Mouth: see HPI Throat: see HPI Respiratory: cough, dyspnea on exertion, wheezing Cardiovascular: no symptoms reported Gastrointestinal: no symptoms reported Musculoskeletal: no symptoms reported Skin: no symptoms reported Neurological: No Symptoms Reported Hematologic/Lymphatic: No Symptoms Reported Immunological/Allergic: no symptoms reported (LALITHA CORRALES MD) Past Mwcjpbg-Omjbyf-Vkhmjg Hx Patient Social History Alcohol Use: Denies Use Recreational Drug Use: No Type Used: Cigarettes Recent Foreign Travel: No Contact w/Someone Who Travel: No Recent Infectious Disease Expo: No Recent Hopitalizations: No (LALITHA CORRALES MD) Immunizations Up To Date Date of Pneumonia Vaccine: Jul 10, 2017 (LALITHA CORRALES MD) Seasonal Allergies Seasonal Allergies: Yes (LALITHA CORRALES MD) Past Medical History Surgeries: Yes (L INGUINAL HERNIA, R ELBOW-STITCHES, LYMPH NODE NECK, CYST R JAW) Eye Surgery Respiratory: Yes (2L NC @ NIGHT) COPD Cardiac: Yes (MINOR HEART ATTACK-NO CATH R/T NO INSURANCE) Heart Attack, High Cholesterol, Hypertension Neurological: Yes Stroke Reproductive Disorders: No Sexually Transmitted Disease: No HIV/AIDS: No Kidney Stones Gastrointestinal: Yes Gastroesophageal Reflux, Chronic Diarrhea Musculoskeletal: Yes (BONE SPURS, HERNIATED DISC, SPINAL STENOSIS) Arthritis, Chronic Back Pain Endocrine: Yes Loss of Vision: Bilateral Hearing Impairment: Denies Cancer: No Psychosocial: Yes Depression Integumentary: No Blood Disorders: No Adverse Reaction/Blood Tranf: No (N/A) (LALITHA CORRALES MD) Physical Exam Vital Signs Vital Signs - First Documented 04/06/18 11:36 Temp 97.4 Pulse 112 Resp 18 B/P (MAP) 144/92 (109) Pulse Ox 97 O2 Delivery Room Air (NARAYAN RAMOS MD) Height, Weight, BMI Height: 5'8.00" Weight: 230lbs. 0.0oz. [id number]; 36.3 BMI Method:Stated General Appearance: WD/WN, no apparent distress Eyes: bilateral eye normal inspection Nose: normal inspection Neck: full range of motion Cardiovascular: regular rate, rhythm Respiratory: decreased breath sounds, rhonchi, wheezing Considerable debris was noted in the left ear canal. And a dull area of TM was visible in the 10-12 o'clock position. There were 2 eschars over the left cheek. The tongue was heavily coated and white. There is an ulceration noted in the mid anterior portion of the tongue. The lower lip particularly on the left was swollen. There were several eschars over the left lower lip and submental skin (LALITHA CORRALES MD) Progress/Results/Core Measures Results/Orders Lab Results Laboratory Tests Test 04/06/18 12:35 Range/Units White Blood Count 14.9 H 4.3-11.0 10^3/uL Red Blood Count 5.11 4.35-5.85 10^6/uL Hemoglobin 14.8 13.3-17.7 G/DL Hematocrit 43 40-54 % Mean Corpuscular Volume 85 80-99 FL Mean Corpuscular Hemoglobin 29 25-34 PG Mean Corpuscular Hemoglobin Concent 34 32-36 G/DL Red Cell Distribution Width 13.6 10.0-14.5 % Platelet Count 437 H 130-400 10^3/uL Mean Platelet Volume 9.5 7.4-10.4 FL Neutrophils (%) (Auto) 70 42-75 % Lymphocytes (%) (Auto) 20 12-44 % Monocytes (%) (Auto) 9 0-12 % Eosinophils (%) (Auto) 0 0-10 % Basophils (%) (Auto) 1 0-10 % Neutrophils # (Auto) 10.5 H 1.8-7.8 X 10^3 Lymphocytes # (Auto) 3.0 1.0-4.0 X 10^3 Monocytes # (Auto) 1.4 H 0.0-1.0 X 10^3 Eosinophils # (Auto) 0.0 0.0-0.3 10^3/uL Basophils # (Auto) 0.1 0.0-0.1 10^3/uL Neutrophils % (Manual) 75 % Lymphocytes % (Manual) 14 % Monocytes % (Manual) 11 % Blood Morphology Comment NORMAL Sodium Level 138 135-145 MMOL/L Potassium Level 3.7 3.6-5.0 MMOL/L Chloride Level 100 98-107 MMOL/L Carbon Dioxide Level 23 21-32 MMOL/L Anion Gap 15 H 5-14 MMOL/L Blood Urea Nitrogen 20 H 7-18 MG/DL Creatinine 1.28 0.60-1.30 MG/DL Estimat Glomerular Filtration Rate 58 BUN/Creatinine Ratio 16 Glucose Level 120 H 70-105 MG/DL Calcium Level 9.9 8.5-10.1 MG/DL Corrected Calcium 8.5-10.1 MG/DL Total Bilirubin 0.6 0.1-1.0 MG/DL Aspartate Amino Transf (AST/SGOT) 22 5-34 U/L Alanine Aminotransferase (ALT/SGPT) 31 0-55 U/L Alkaline Phosphatase 49 40-136 U/L C-Reactive Protein High Sensitivity 0.57 H 0.00-0.50 MG/DL Total Protein 7.8 6.4-8.2 GM/DL Albumin 4.8 H 3.2-4.5 GM/DL (NARAYAN RAMOS MD) My Orders Orders - NARAYAN RAMOS MD Hs C Reactive Protein (04/06/18 12:55) Iohexol Injection (Omnipaque 350 Mg/Ml 1 (04/06/18 13:30) Contrast Received (Contrast Received) (04/06/18 13:30) Ns (Ivpb) (Sodium Chloride 0.9%) (04/06/18 13:30) Ketorolac Injection (Toradol Injection) (04/06/18 14:30) Ceftriaxone For Iv Use (Rocephin For I (04/06/18 14:30) (NARAYAN RAMOS MD) Medications Given in ED Current Medications Medications Dose Ordered Sig/Navi Route Start Time Stop Time Status Last Admin Dose Admin Iohexol 100 ml ONCE ONCE IV 04/06/18 13:30 04/06/18 13:31 DC 04/06/18 13:24 75 ML Sodium Chloride 250 ml ONCE ONCE IV 04/06/18 13:30 04/06/18 13:31 DC 04/06/18 13:24 80 ML (NARAYAN RAMOS MD) Vital Signs/I&O 04/06/18 11:36 Temp 97.4 Pulse 112 Resp 18 B/P (MAP) 144/92 (109) Pulse Ox 97 O2 Delivery Room Air (NARAYAN RAMOS MD) Blood Pressure Mean: 109 Progress Progress Note #1: Time: 12:50 Progress Note Care of this patient was assumed from Dr. Corrales who ordered labs and CT that are pending. I personally interviewed and examined the patient. Patient believes that his symptoms are due to exposure to a wasp spray that occurred 2 weeks ago. This does not correlate well with the timing of onset of symptoms the patient is absolutely convinced that that is the cause. Patient has a rash with the appearance of a ruptured and scattered vesicles involving left chin and face. He also has an ulceration on the left side of the tongue. The tongue is heavily coated with white plaque. The tympanic membrane on my exam is bulging and beefy red, possibly with blood posterior to the tympanic membrane. The proximal ear canal is also erythematous. The distribution of this rash would be suspicious for shingles. However, patient denies any pain or itching of the rash on the face or tongue. HSV is also a consideration. I do not think that the wasp spray has anything to do with his symptoms. Patient states he has been taking the Omnicef and acyclovir as prescribed but has problems with the acyclovir due to nausea. He states he only has one day left on the Omnicef and it has not seemed to help. Disposition and plan will be determined after review of labs and CT imaging. Progress Note #2: Time: 14:41 Progress Note Case was discussed with Rolly Hurtado on-call for Dr. Forrester. She agrees with follow-up in the ENT clinic. She also agrees with continuing acyclovir and antibiotics. Patient only received a 5 day prescription for Omnicef. We will transition to a Z-Ifeanyi which may work better for his ear. I suspect that patient 's symptoms are likely related to either herpes zoster or herpes simplex. He is still adamantly convinced that it is a reaction to wasp spray. I'm uncertain of the cause of leukoplakia. It may be related to yeast as patient is diabetic and on antibiotics. However, he has no lesions elsewhere in the mouth or throat to suggest candidiasis. This can be assessed further at his ENT appointment. Patient is being treated with Toradol and Rocephin prior to departure. (NARAYAN RAMOS MD) Diagnostic Imaging Diagonstic Imaging: CT Plain Films/CT/US/NM/MRI: other (soft tissues neck) Comments CT of the soft tissues of the neck viewed by me and report reviewed. See report below: NAME: SIOBHAN [facility] REC#: [id number] PT STATUS: REG ER : 1960 PHYSICIAN: LALITHA CORRALES MD ADMIT DATE: 04/06/18/ER Draft Date of Exam:04/06/18 CT NECK (SOFT TISSUE) W PROCEDURE: CT neck soft tissue with contrast. TECHNIQUE: Multiple contiguous axial images were obtained through the neck after the administration of contrast. INDICATION: Left ear pain. COMPARISON: No prior studies are available for comparison. FINDINGS: Both orbits are unremarkable. Visualized intracranial structures are unremarkable. The posterior nasopharynx and oropharynx are unremarkable. Parapharyngeal fat planes are preserved. The larynx is unremarkable. No thyroid mass is detected. Bilateral submandibular and parotid glands appear to be symmetric. There are normal sized submandibular nodes. There is a mildly prominent left jugulodigastric node measuring 17 mm x 12 mm. Posterior cervical space is unremarkable. No fluid collection is identified. There are some opacified mastoid air cells bilaterally, greater on the right. The middle ear cavities are without evidence of fluid. There is some soft tissue density in the left external auditory canal, near the tympanic membrane. No erosion of the scutum is identified. Visualized paranasal sinuses are clear. IMPRESSION: 1. No acute abnormality is seen. There are mildly prominent left neck lymph nodes present in the left jugulodigastric and submandibular regions which may be reactive. There is soft tissue density in the left external auditory canal at the tympanic membrane. While this could represent cerumen, other etiologies cannot be entirely excluded such as cholesteatoma. Direct visual visualization otoscopically is recommended. There are small mastoid effusions bilaterally. The remainder the study is unremarkable. Dictated on workstation # [id number] Dict: 04/06/18 1346 Trans: 04/06/18 1402 [facility] [id number] Interpreted by: YOUNG BIRCH MD (NARAYAN RAMOS MD) Departure Impression Primary Impression: Facial rash Additional Impressions: Left otitis media Qualified Codes: H65.192 - Other acute nonsuppurative otitis media, left ear Otalgia of left ear Leukoplakia, tongue Nausea Disposition: 01 HOME, SELF-CARE Condition: Improved Departure-Patient Inst. Decision time for Depature: 14:22 (NARAYAN RAMOS MD) Referrals: MAN FORRESTER MD, BETHANY N MD (PCP/Family) Primary Care Physician Patient Instructions: Cold Sores (Oral Herpes), Ear Infections (Otitis Media), Shingles Add. Discharge Instructions: Complete your current medications as previously prescribed. Start azithromycin as prescribed as well. Call Dr. Forrester's office to confirm the time and location of your appointment. You should have an appointment on Monday with Mouna Quiles (Dr. Forrester's intellectual property legal assistant) at the [facility] office at [address] in [place]. The appointment is at 9:15. Your symptoms are most likely caused by a viral illness and it may take days to weeks to completely resolve. You may take ibuprofen up to 600 mg every 6 hours as needed for pain. Add Tylenol (acetaminophen) up to 1000 mg every 6 hours as needed for additional pain relief. All discharge instructions reviewed with patient and/or family. Voiced understanding. Scripts Ondansetron (Zofran Odt) 4 Mg Tab.rapdis 4 MG SL Q4H PRN for NAUSEA/VOMITING-1ST LINE, #10 TAB 1 Refill Prov: NARAYAN RAMOS MD 04/06/18 Azithromycin (Azithromycin) 250 Mg Tablet 250 MG PO UD, #6 TAB TAKE 2 TABLETS ON DAY ONE THEN TAKE 1 TABLET DAILY FOR FOUR MORE DAYS Prov: NARAYAN RAMOS MD 04/06/18 Copy Copies To 1: DORIS LAYTON MD Copies To 2: MAN FORRESTER MD, RODNEY K MD Apr 06, 2018 11:55 NARAYAN RAMOS MD Apr 06, 2018 12:55
[2018-04-06 12:56] LABS: BASOPHILS # (AUTO) 0.1 10^3/uL (0.0-0.1); BASOPHILS % (AUTO) 1 % (0-10); EOSINOPHILS % (AUTO) 0 % (0-10); HEMATOCRIT 43 % (40-54); HEMOGLOBIN 14.8 G/DL (13.3-17.7); LYMPHOCYTES % (AUTO) 20 % (12-44); MEAN CORPUSCULAR HEMOGLOBIN 29 PG (25-34); MEAN CORPUSCULAR HGB CONC 34 G/DL (32-36); MEAN CORPUSCULAR VOLUME 85 FL (80-99); MEAN PLATELET VOLUME 9.5 FL (7.4-10.4); MONOCYTES # (AUTO) 1.4 X 10^3 (0.0-1.0); MONOCYTES % (AUTO) 9 % (0-12); NEUTROPHILS # (AUTO) 10.5 X 10^3 (1.8-7.8); NEUTROPHILS % (AUTO) 70 % (42-75); PLATELET COUNT 437 10^3/uL (130-400); RED BLOOD COUNT 5.11 10^6/uL (4.35-5.85); RED CELL DISTRIBUTION WIDTH 13.6 % (10.0-14.5); WHITE BLOOD COUNT 14.9 10^3/uL (4.3-11.0)
[2018-04-06 13:17] LABS: LYMPHOCYTES % (MANUAL) 14 %; MONOCYTES % (MANUAL) 11 %; NEUTROPHILS % (MANUAL) 75 %; RBC MORPH NORMAL
[2018-04-06 13:18] LABS: ALANINE AMINOTRANSFERASE 31 U/L (0-55); ALBUMIN 4.8 GM/DL (3.2-4.5); ALKALINE PHOSPHATASE 49 U/L (40-136); BILIRUBIN,TOTAL 0.6 MG/DL (0.1-1.0); BUN/CREATININE RATIO 16; CALCIUM 9.9 MG/DL (8.5-10.1); CARBON DIOXIDE 23 MMOL/L (21-32); CHLORIDE 100 MMOL/L (98-107); CREATININE SERUM 1.28 MG/DL (0.60-1.30); GFR ESTIMATED 58; GLUCOSE 120 MG/DL (70-105); POTASSIUM 3.7 MMOL/L (3.6-5.0); SODIUM 138 MMOL/L (135-145); TOTAL PROTEIN 7.8 GM/DL (6.4-8.2)
[2018-04-06] MEDS ORDERED: IOHEXOL 350 MG/ML 100 ML (OMNIPAQUE 350) VIAL IV ONE (13:30)
[2018-04-06] MEDS ORDERED: RECEIVED CONTRAST (Hold Metformin) IV SCH (13:30)
[2018-04-06] MEDS ORDERED: NS 250 ML (IVPB) BAG IV ONE (13:30)
--- NOTE | 2018-04-06 14:03 | Diagnostic Imaging Report ---
PROCEDURE: CT neck soft tissue with contrast. TECHNIQUE: Multiple contiguous axial images were obtained through the neck after the administration of contrast. INDICATION: Left ear pain. COMPARISON: No prior studies are available for comparison. FINDINGS: Both orbits are unremarkable. Visualized intracranial structures are unremarkable. The posterior nasopharynx and oropharynx are unremarkable. Parapharyngeal fat planes are preserved. The larynx is unremarkable. No thyroid mass is detected. Bilateral submandibular and parotid glands appear to be symmetric. There are normal sized submandibular nodes. There is a mildly prominent left jugulodigastric node measuring 17 mm x 12 mm. Posterior cervical space is unremarkable. No fluid collection is identified. There are some opacified mastoid air cells bilaterally, greater on the right. The middle ear cavities are without evidence of fluid. There is some soft tissue density in the left external auditory canal, near the tympanic membrane. No erosion of the scutum is identified. Visualized paranasal sinuses are clear. IMPRESSION: 1. No acute abnormality is seen. There are mildly prominent left neck lymph nodes present in the left jugulodigastric and submandibular regions which may be reactive. There is soft tissue density in the left external auditory canal at the tympanic membrane. While this could represent cerumen, other etiologies cannot be entirely excluded such as cholesteatoma. Direct visual visualization otoscopically is recommended. There are small mastoid effusions bilaterally. The remainder the study is unremarkable. Dictated by: Dictated on workstation # [id number]
[2018-04-06] MEDS ORDERED: AZIT250T12 PO (14:23)
[2018-04-06] MEDS ORDERED: cefTRIAXone FOR IV USE 1,000 MG in NS (IVPB) 50 ML IV ONE (14:30)
[2018-04-06] MEDS ORDERED: KETOROLAC 30 MG/ML VIAL IVP ONE (14:30)
[2018-04-06] MEDS ORDERED: ONDA4TAB8 SL (14:46)
[2018-04-06 15:35] VITALS: BP 119/98
== END 2018-04-06 15:35 | disposition home or self-care (01) ==
LOC: EDUNIT# 11:26 → ER 11:27
DX: H66.92 Otitis media, unspecified, left ear (principal); K13.21 Leukoplakia of oral mucosa, including tongue; R11.0 Nausea; R21 Rash and other nonspecific skin eruption; J44.9 Chronic obstructive pulmonary disease, unspecified; I25.2 Old myocardial infarction; I10 Essential (primary) hypertension; E78.00 Pure hypercholesterolemia, unspecified; K21.9 Gastro-esophageal reflux disease without esophagitis; F32.9 Major depressive disorder, single episode, unspecified; Z87.442 Personal history of urinary calculi; Z86.73 Personal history of transient ischemic attack (TIA), and cerebral infarction without residual deficits; Z88.0 Allergy status to penicillin; Z88.1 Allergy status to other antibiotic agents; Z79.51 Long term (current) use of inhaled steroids; Z79.82 Long term (current) use of aspirin; Z87.19 Personal history of other diseases of the digestive system
CPT/HCPCS: 36415; 70491; 80053; 85007; 85027; 86141; 96365; 96375

== ENCOUNTER → 2018-04-11 | Outpatient (CLI) | payer MEDICAID ==
[~2018-04-11] MED LIST changes: +AZIT250T12 PO; +IOHEXOL 350 MG/ML 150 ML (OMNIPAQUE 350) VIAL IV ONE; +NS 250 ML (IVPB) BAG IV ONE; +ONDA4TAB8 SL; +RECEIVED CONTRAST (Hold Metformin) IV SCH; +RT-ALBUTEROL SULF 2.5 MG/3 ML PRE-MIX VIAL INH ONE; +RT-ALBUTEROL SULF 2.5 MG/3 ML PRE-MIX VIAL ONE
[2018-04-11 09:12] LABS: ABG BASE EXCESS -0.5 MMOL/L (-2.5-2.5); ABG OXYGEN SATURATION 97 % (94-100); ABG PCO2 36 MMHG (35-45); ABG PH 7.43 (7.37-7.43); ABG PO2 70 MMHG (79-93); ABG TCO2 24.6 MMOL/L (21.0-31.0)
[2018-04-11 09:13] LABS: ALLENS TEST POSITIVE; INSPIRED O2 0
[2018-04-11 09:14] LABS: PATIENT TEMP 97.1; VENTILATOR NO
[2018-04-11 09:14] LABS: BUN/CREATININE RATIO 12; CREATININE SERUM 0.89 MG/DL (0.60-1.30); GFR ESTIMATED > 60
--- NOTE | 2018-04-11 12:53 | Diagnostic Imaging Report ---
PROCEDURE: CT angiography of the chest with contrast. TECHNIQUE: Multiple contiguous axial images were obtained through the chest after uneventful bolus administration of intravenous contrast. 2D reconstructed CTA MIP acquisitions were also performed. INDICATION: Shortness of breath. A pulmonary arterial system is limited in evaluation due to suboptimal opacification. No central emboli are identified. No definite filling defects are seen. The thoracic aorta is well opacified and is normal caliber. No dissection is identified. No pericardial or pleural fluid is seen. No axillary, hilar or mediastinal lymphadenopathy is detected. Calcified granuloma anterior right upper lobe is seen. No noncalcified pulmonary nodules are detected. Upper abdomen is unremarkable. IMPRESSION: Essentially unremarkable CT of the chest. The pulmonary arterial system does demonstrate suboptimal opacification but no central emboli are seen. No acute features detected. Dictated by: Dictated on workstation # [id number]
== END ==
LOC: RT 08:42
PROVIDERS: ATTEND Nurse Practitioner Family
DX: J44.9 Chronic obstructive pulmonary disease, unspecified (principal); J45.909 Unspecified asthma, uncomplicated; R06.02 Shortness of breath; G47.34 Idiopathic sleep related nonobstructive alveolar hypoventilation; Z72.0 Tobacco use
CPT/HCPCS: 36415; 36600; 71275; 82565; 82805; 84520; 94060; 94726; 94729

== ENCOUNTER 2018-04-12 10:00 | Outpatient (RCR) | payer MEDICAID ==
--- NOTE | 2018-03-19 11:13 | Pulmonary Rehab Eval/Txmt Plan ---
Pulmonary Rehab Initial Eval Information Paper Evaluation Completed: Yes Date: Mar 19, 2018 Therapist: LEANDRA Referring Physician: DORIS LAYTON Pulmonary Rehab Treatment Plan Treatment P Treatment Periord: Initial Diagnosis Diagnosis: J43.1 Date: Mar 19, 2018 Barriers to Learning Barriers: Cognitive, Financial PT HAS A HARD TIME COMPREHENDING QUESTIONS AND ANSWEREING DUE TO MEDICAL STATUS. HIS HELPS HIM WITH QUESTIONAIRS. Assessment/Problems Exercise: Deconditioning, Decreased Exer Tolerance, No Regular Exercise, Sedentary Type: PT HAS HERNIATED DISK IN BACK Frequency: CHRONIC Duration: CHRONIC Barriers to Exercise: NO LIFTING OVER 35 LBS, WALKING TOLERATED Aerobic Exercise/Goals Freq: time per week minus MD: 2 Intensity: 1 Time___-___min X ___weeks: 20 Type: Arm Ergometry, Scifi/Nustep, Treadmill Resistance Exercise/Goals Frequency: 1 Itensity: 1 Type: Elastic Bands, Hand Weights PT HAS BACK ISSUES; EXERCISE PERFORM PER PT TOLERANCE. PERFORM PRIMARILY SIT DOWN EXERCISE WITH TREADMILL PER PT'S TOLERANCE. GOALS: IMPROVE SOA IMPROVE MOBILITY IMPROVE STRENGTH IMPROVE ENDURANCE PT SCHEDULED TO START EDUCATION CLASSES FOR PULMONARY REHAB ON MARCH 27, 2018 MARIJA HENDERSON DO Mar 19, 2018 11:13
[2018-04-10 09:55] VITALS: BP 112/70
[2018-04-10 10:55] VITALS: BP 120/70
[2018-04-12 10:00] VITALS: BP 111/76
[~2018-04-12 10:00] MED LIST changes: -IOHEXOL 350 MG/ML 150 ML (OMNIPAQUE 350) VIAL IV ONE; -NS 250 ML (IVPB) BAG IV ONE; -RECEIVED CONTRAST (Hold Metformin) IV SCH; -RT-ALBUTEROL SULF 2.5 MG/3 ML PRE-MIX VIAL INH ONE; -RT-ALBUTEROL SULF 2.5 MG/3 ML PRE-MIX VIAL ONE
[2018-04-12 11:00] VITALS: BP 115/80
== END 2018-06-17 | disposition home or self-care (01) ==
LOC: PULM 10:00
PROVIDERS: ATTEND Family Medicine
DX: J43.1 Panlobular emphysema (principal)

== ENCOUNTER → 2018-05-23 | Outpatient (CLI) | payer MEDICAID ==
--- NOTE | 2018-05-23 16:35 | Diagnostic Imaging Report ---
EXAMINATION: Magnetic resonance imaging of the right shoulder without contrast. DATE: May 23, 2018. COMPARISON: MRI right shoulder February 10, 2016. HISTORY: 58-year-old male, right shoulder pain. Limited range of motion. TECHNIQUE: Magnetic Resonance Imaging sequences were performed of the shoulder without contrast. FINDINGS: ROTATOR CUFF, LIGAMENTS, TENDONS, AND MUSCLES: There is a 6 mm wide approximately 25% thickness partial articular sided tear involving the anterior leading edge of the supraspinatus tendon which measures roughly 2-3 mm in medial to lateral dimension. The additional portions of the supraspinatus tendon are intact. The infraspinatus and teres minor tendons as well as the subscapularis tendon are intact. There is normal rotator cuff muscle bulk and signal. LONG HEAD OF BICEPS: The biceps labral attachment and long head of the biceps tendon is intact. The long head of the biceps tendon is normally positioned within the bicipital groove. GLENOHUMERAL JOINT: The humeral head is well positioned relative to the glenoid. The labrum is grossly intact. There is no identified paralabral cyst. The articular cartilage is grossly intact. There is no joint effusion. ACROMIOCLAVICULAR JOINT: The acromioclavicular joint is normally aligned. The coracoclavicular and coracoacromial ligaments are intact. There are mild acromioclavicular degenerative changes without undersurface osteophyte. BONE: The bones all have normal configuration. The bone marrow signal is within normal limits. Specifically, negative for fracture, osteomyelitis, osteonecrosis, or marrow replacing process. BURSAE AND SOFT TISSUES: The bursae and soft tissue surrounding the shoulder are unremarkable. IMPRESSION: 1. 6 mm wide approximately 25% partial thickness articular sided tear of the anterior leading edge of the supraspinatus tendon with the tear measuring roughly 2-3 mm in medial to lateral dimension. No fatty muscle atrophy. 2. Moderate acromioclavicular degenerative changes without undersurface osteophyte. No os acromiale. 3. Unremarkable glenohumeral joint evaluation. 4. No acute fracture or bone contusion. Dictated by: Dictated on workstation # [id number]
== END ==
LOC: RAD 15:11
PROVIDERS: ATTEND Nurse Practitioner
DX: M75.101 Unspecified rotator cuff tear or rupture of right shoulder, not specified as traumatic (principal); M75.111 Incomplete rotator cuff tear or rupture of right shoulder, not specified as traumatic; M19.011 Primary osteoarthritis, right shoulder
CPT/HCPCS: 73221

== ENCOUNTER 2018-07-05 10:00 | Outpatient (RCR) | payer MEDICAID ==
[2018-05-14 11:01] VITALS: BP 130/60
--- NOTE | 2018-05-14 11:51 | Pulmonary Rehab Eval/Txmt Plan ---
Pulmonary Rehab Initial Eval Information Paper Evaluation Completed: No Date: May 14, 2018 Therapist: LEANDRA JOSHI Pulmonary Rehab Treatment Plan Treatment P Treatment Periord: Initial Diagnosis Date: May 14, 2018 Barriers to Learning BACK PAIN Assessment/Problems Exercise: Decreased Exer Tolerance, No Regular Exercise, Sedentary Type: AEROBIC Frequency: 2 X WEEK Duration: 1 HR CLASS PER PTS TOLERANCE Barriers to Exercise: BACK PAIN, HR DOES RUN TACHY Initial MET Level: 2 Aerobic Exercise/Goals Freq: time per week minus OK: 2 Intensity: 2 Type: Arm Ergometry, Bike, Scifi/Nustep, Treadmill MARIJA HENDERSON DO May 14, 2018 11:51
[2018-05-22 12:55] VITALS: BP 150/50
[2018-05-22 13:55] VITALS: BP 130/57
[2018-05-24 12:55] VITALS: BP 140/60
[2018-05-24 13:35] VITALS: BP 120/70
[2018-05-31 13:44] VITALS: BP 130/60
[2018-06-07 12:52] VITALS: BP 112/76
[2018-06-07 13:30] VITALS: BP 90/70
[2018-06-12 11:00] VITALS: BP 120/50
[2018-06-12 11:50] VITALS: BP 120/60
[2018-06-19 13:00] VITALS: BP 122/80
[2018-06-19 13:32] VITALS: BP 114/60
[2018-06-21 12:42] VITALS: BP 130/80
[2018-06-21 13:45] VITALS: BP 102/80
[2018-06-26 13:00] VITALS: BP 115/60
[2018-06-26 13:40] VITALS: BP 118/50
[2018-07-03 09:50] VITALS: BP 110/70
[2018-07-03 10:35] VITALS: BP 93/60
[~2018-07-05] VITALS: Ht 172.7 cm; Wt 104.3 kg
[2018-07-05 10:25] VITALS: BP 80/60
[2018-07-05 11:00] VITALS: BP 115/60
[2018-07-10 08:50] VITALS: BP 114/70
[2018-07-10 10:55] VITALS: BP 120/60
== END 2018-08-12 | disposition home or self-care (01) ==
LOC: PULM 10:00
PROVIDERS: ATTEND Nurse Practitioner Family
DX: J43.8 Other emphysema (principal); R06.02 Shortness of breath; J30.2 Other seasonal allergic rhinitis; G47.36 Sleep related hypoventilation in conditions classified elsewhere; Z72.0 Tobacco use

== ENCOUNTER 2018-07-09 10:05 | Outpatient (RCR) | payer MEDICAID | END 2018-08-16 12:03 | disposition home or self-care (01) | PROVIDERS: ATTEND Nurse Practitioner | DX: M75.111 Incomplete rotator cuff tear or rupture of right shoulder, not specified as traumatic (principal) ==

== ENCOUNTER → 2018-12-07 | Outpatient (CLI) | payer MEDICAID ==
[~2018-12-07] MED LIST changes: -TRAZ-189 PO; +TRAZ-222 PO
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
--- NOTE | 2018-12-07 10:35 | Diagnostic Imaging Report ---
Indication: Neck pain. Cervical spine AP and lateral views of the cervical spine show degenerative changes C5-6 and C6-7 with disc space narrowing and large osteophytes forming anteriorly. Alignment is normal. There is no fracture. Odontoid is intact. Flexion-extension views in lateral projection does not show any instability. Impression: Degenerative disc changes C5-6 and C6-7. No acute abnormalities seen. Dictated by: Dictated on workstation # [id number]
== END ==
LOC: RAD 08:37
PROVIDERS: ATTEND Registered Nurse
DX: M50.122 Cervical disc disorder at C5-C6 level with radiculopathy (principal); M48.02 Spinal stenosis, cervical region; M43.12 Spondylolisthesis, cervical region
CPT/HCPCS: 72050; 72141

== ENCOUNTER 2019-03-14 10:24 | Outpatient (CLI) | payer MEDICAID ==
[~2019-03-14] VITALS: Ht 172 cm; Wt 105.3 kg
[2019-03-14] MEDS ORDERED: FLUT9.9S NS (10:39)
[2019-03-14] MEDS ORDERED: MELA5TAB14 PO (10:39)
[2019-03-14] MEDS ORDERED: LIRA0.6P SQ (10:39)
[2019-03-14] MEDS ORDERED: MULT-178 PO (10:39)
[2019-03-14] MEDS ORDERED: OMEP20CA13 PO (10:39)
[2019-03-14] MEDS ORDERED: METO-370 PO (10:39)
[2019-03-14] MEDS ORDERED: POLY17PO6 PO (10:43)
[2019-03-14 10:44] VITALS: BP 116/74
== END 2019-03-14 11:21 | disposition home or self-care (01) ==
LOC: PREOP 10:24
PROVIDERS: ATTEND Orthopaedic Surgery
DX: Z01.818 Encounter for other preprocedural examination (principal); M75.101 Unspecified rotator cuff tear or rupture of right shoulder, not specified as traumatic
CPT/HCPCS: 87081; 93005

== ENCOUNTER 2019-03-20 07:41 | Day surgery (SDC) | payer MEDICAID ==
--- NOTE | 2019-03-08 10:08 | HISTORY AND PHYSICAL ---
DATE OF SERVICE: 03/20/2019 ADMISSION HISTORY AND PHYSICAL: This will be for outpatient surgery on 03/20/2019 for right shoulder rotator cuff repair and long finger trigger release. DATE OF ADMISSION: 03/20/2019. HISTORY OF PRESENT ILLNESS: The patient is a 59-year-old right hand dominant gentleman with complaints of right long finger catching and locking. He also complains of pain with overhead activities in his right shoulder. He reports weakness. He reports difficulty with activities of daily living. He has failed to respond to conservative measures. Because of this, he elected to proceed with surgical intervention. REVIEW OF SYSTEMS: No chest pain, no shortness of breath, no dysuria. PAST MEDICAL HISTORY: Back pain, COPD, CVA, hypertension, myocardial infarction, hypercholesterolemia, diabetes, cervical stenosis, sleep apnea, depression and stroke. PAST SURGICAL HISTORY: Herniorrhaphy, right upper extremity vein repair, lymph node excision, heart catheterization. FAMILY HISTORY: Significant for breast cancer, coronary arthrosclerosis, hypertension, diabetes. PRIMARY CARE PROVIDER: [facility]. MEDICATIONS: Baclofen, Proventil, pravastatin, Symbicort, Spiriva, Protonix, Singulair, trazodone, pantoprazole, citalopram, Dexilant, Carafate, aspirin, Zyrtec, albuterol, potassium, furosemide, Seroquel and Victoza. ALLERGIES: PENICILLIN, TETRACYCLINE, SPIRIVA, STRAWBERRIES and PEANUTS. SOCIAL HISTORY: The patient is a smoker and uses alcohol regularly. PHYSICAL EXAMINATION: GENERAL: The patient is well developed, well-nourished, in no acute distress. HEENT: Normocephalic, atraumatic. Pupils are equal, round, reactive to light. Oropharynx is clear. NECK: Supple, no lymphadenopathy. LUNGS: Clear to auscultation bilaterally. HEART: Regular rate and rhythm. ABDOMEN: Soft, nontender, nondistended. EXTREMITIES: The right long finger demonstrates tenderness over A1 storm. He can demonstrate active triggering, which reproduces the symptoms in his hand. The right shoulder demonstrates positive Neer's and positive Haywood sign, weakness with abduction and external rotation, mild pain with Orrville's maneuver. over his acromioclavicular joint and has no pain with cross-body adduction. IMPRESSION: Right rotator cuff tear and right long finger trigger finger. PLAN: Right shoulder arthroscopy with acromioplasty, possible rotator cuff repair, possible biceps tenotomy and right long finger trigger release. We discussed risks, benefits, options, ramifications and recovery. He understands and wishes to proceed. Job ID: [id number] DocumentID: [id number] Dictated Date: 03/08/2019 08:17:37 Line Person Date: 03/08/2019 10:08:15 Dictated By: MAN LEO MD
[~2019-03-20] VITALS: Ht 172 cm; Wt 105.3 kg
[2019-03-20] VITALS (11 sets, daily range): BP systolic 123–142; BP diastolic 77–96
[~2019-03-20 07:41] MED LIST changes: +FLUT9.9S NS; +LIRA0.6P SQ; +MELA5TAB14 PO; +METO50TA7 PO; +MULT-178 PO; +OMEP-280 PO; +OMEP40CA27 PO; -OMEP40CA36 PO; +POLY17PO6 PO; -TRAZ-222 PO; +TRZ50T PO
[2019-03-20] MEDS ORDERED: oxyCODONE/APAP 5/325MG (PERCOCET 5) TABLET PO PRN (07:45)
[2019-03-20] MEDS ORDERED: LACTATED RINGERS 1,000 ML IV PRN (07:46)
[2019-03-20] MEDS ORDERED: CLINDAMYCIN 600 MG/50 ML IVPB 50 ML IV ONE (08:00)
[2019-03-20] MEDS ORDERED: BUPIVACAINE 0.25% 30 ML (SENSORCAINE) VIAL ONE (08:07)
[2019-03-20] MEDS ORDERED: morphine PF (DURAMORPH) 10 MG/10 ML AMP ONE (08:08)
[2019-03-20] MEDS ORDERED: proPOfol 200 MG/20 ML (DIPRIVAN) VIAL IV ONE (08:17)
[2019-03-20] MEDS ORDERED: ONDANSETRON 4 MG/2 ML (SDV) Z0FRAN ONE (08:17)
[2019-03-20] MEDS ORDERED: LIDOCAINE PF 2% 5 ML (XYLOCAINE) VIAL ONE (08:17)
[2019-03-20] MEDS ORDERED: ROCURONIUM 10 MG/ML 5 ML SYRINGE IV ONE (08:17)
[2019-03-20] MEDS ORDERED: MIDAZOLAM 2 MG/2 ML (VERSED) VIAL ONE (08:18)
[2019-03-20] MEDS ORDERED: fentaNYL INJECTION 100 MCG/2 ML AMP ONE (08:18)
[2019-03-20] MEDS ORDERED: SEVOFLURANE (ULTANE) 15 ML INHAL SOLN ONE ×4 (08:22→10:21)
--- NOTE | 2019-03-20 09:28 | Progress Note-Pre Operative ---
Pre-Operative Progress Note H&P Reviewed The H&P was reviewed, patient examined and no changes noted. Date Seen by Provider: Mar 20, 2019 Time Seen by Provider: : Date H&P Reviewed: Mar 20, 2019 Time H&P Reviewed: : Pre-Operative Diagnosis: right SLAP and Rotator cuff tears, right LF trigger finger MAN LEO MD Mar 20, 2019 09:28
--- NOTE | 2019-03-20 09:30 | Progress Note-Post Operative ---
Post-Operative Progess Note Surgeon (s)/Packaging Sales (s) Surgeon MAN LEO MD Packaging Sales: Javier Kenny Pre-Operative Diagnosis right SLAP and Rotator cuff tears, right LF trigger finger Post-Operative Diagnosis right shoulder SLAP tear and rotator cuff tendinitis and long finger trigger finger Procedure & Operative Findings Date of Procedure 03/20/19 Procedure Performed/Findings right shoulder arthroscopic biceps tenotomy, labral debridement and acromioplasty and right long finger A1 storm release Anesthesia Type GETA Estimated Blood Loss Estimated blood loss (mL): minimal Specimens/Packing Specimens Removed none Packing: none MAN LEO MD Mar 20, 2019 09:30
[2019-03-20] MEDS ORDERED: ONDANSETRON 4 MG/2 ML (SDV) Z0FRAN IVP PRN (10:30)
[2019-03-20] MEDS ORDERED: morphine INJ 10 MG/ML 1ML (SYR OR VIAL) IVP ONE (10:30)
[2019-03-20] MEDS ORDERED: HYDROmorphone 2 MG/ML VIAL (DILAUDID) IV ONE (10:30)
[2019-03-20] MEDS ORDERED: MEPERIDINE (DEMEROL) INJ 50 MG/ML IVP ONE (10:30)
[2019-03-20] MEDS ORDERED: OXYC-471 PO (11:24)
--- NOTE | 2019-03-20 12:17 | Anesthesia-Regional Post-Op ---
Regional Patient Condition Mental Status: Alert, Oriented x3 Circulation: Same as Pre-Op Headache: Absent Sensation: Full Recovery Motor Block: Absent Post Op Complications Complications None Follow Up Care/Instructions Patient Instructions None needed. Anesthesia/Patient Condition Patient is doing well, no complaints, stable vital signs, no apparent adverse anesthesia problems. No complications reported per nursing. NÉSTOR AMATO CRNA Mar 20, 2019 12:17
--- NOTE | 2019-03-20 14:51 | OPERATIVE REPORT ---
DATE OF SERVICE: 03/20/2019 PREOPERATIVE DIAGNOSES: 1. Right rotator cuff tear. 2. Right superior labrum anterior and posterior tear. 3. Right long finger trigger finger. POSTOPERATIVE DIAGNOSES: 1. Right shoulder superior labrum anterior and posterior tear. 2. Right shoulder rotator cuff tendinosis. 3. Right long finger trigger finger. PROCEDURES: 1. Right shoulder arthroscopic biceps tenotomy. 2. Right shoulder arthroscopic labral debridement. 3. Right shoulder arthroscopic acromioplasty. 4. Right long finger A1 storm release. SURGEON: Panda Valladares MD RN MED SURG: Javier Kenny, who assisted throughout the procedure and closed the incisions. ANESTHESIA: General endotracheal by Corbin Martinez CRNA. TOURNIQUET TIME: Approximately 2 minutes. The right hand using an Esmarch tourniquet. ESTIMATED BLOOD LOSS: Minimal. DRAINS: None. COMPLICATIONS: None. POSTOPERATIVE PLAN: Sling wear for comfort with progressive range of motion as symptoms allow. The patient was transferred to the recovery room awake and in stable condition. STATEMENT OF MEDICAL NECESSITY: The patient is a 59-year-old right hand dominant gentleman with complaints of right shoulder pain, worse with overhead activities. He has undergone treatment with injections, anti-inflammatories and rest without relief. He had a positive Neer's and positive Hawkin sign, positive Larue's maneuver. He failed to respond to conservative measures and because of this, elected to proceed with surgical intervention. In addition, the patient was tender over his right long finger A1 storm could demonstrate active triggering and requested release at the same time. Examination under anesthesia revealed forward elevation of 170 degrees, external rotation 85 degrees, internal rotation of 70 degrees. Arthroscopic findings demonstrated an intact rotator cuff. There was a type 2 SLAP tear with anterior labral flap from the 1 to 2 o'clock positions. The remaining labrum was intact. Subacromial space demonstrated moderate bursitis with sloping of the anterolateral acromion. DESCRIPTION OF PROCEDURE: After risks and benefits of the procedure were discussed and questions were answered, informed consent was signed and placed on chart, the operative site was confirmed in the preoperative holding area initialed by the surgeon. The patient was then transferred to the operating room and after adequate levels of general endotracheal anesthetic were obtained, a timeout was called, confirming the operative site. Examination under anesthesia was performed with above findings noted. Right shoulder and upper extremity were prepped and draped in the usual sterile fashion. An Esmarch was used to exsanguinate the hand and wrist. A longitudinal incision was made over the A1 storm of the long finger, this was then bluntly dissected exposing the A1 storm, which was then incised by pushing through with the scalpel blade. The flexor tendons were intact. The finger was taken through range of motion with no catching or locking noted. The wound was copiously irrigated after removing the Esmarch and closed with 4-0 nylon in simple interrupted fashion. This area was then draped and prepped site was then draped and covered and the shoulder joint was injected with 20 mL of fluid as was the subacromial space. Standard posterior portal was placed under direct visualization. Anterior portal was created along in the interval between biceps, subscapularis and glenoid. The biceps anchor was released and the stump was debrided with a shaver. The anterior labral flap was debrided with a shaver as well. Scope was redirected into the subacromial space. Lateral portal was created. Bursectomy was performed and the acromion was planed to a flat type 1 acromion. This was copiously irrigated. The portal sites were closed with 4-0 nylon in simple interrupted fashion. Shoulder joint was injected with Duramorph. Port sites were infiltrated with plain Marcaine. A soft dressing and sling were applied and the patient was transferred to recovery room awake and in stable condition. Job ID: [id number] DocumentID: [id number] Dictated Date: 03/20/2019 10:18:22 Make Up Man Date: 03/20/2019 14:50:40 Dictated By: PANDA VALLADARES MD
--- OUTSIDE RECORDS SUMMARY | 2019-04-11 22:49 | XMS REPORT ---
Author Author DORIS LAYTON POS Organization [facility] SP Address [address] [place] [address] SP Care Team Providers Care Base Remover Name Role Phone POS DORIS LAYTON Unavailable SP PROBLEMS Type Condition ICD9-CM Code JNL67-WD Code Onset Dates Condition S tatus SNOMED POS Problem Other chronic gastritis without hemorrhage K29.50 Active 8741057 POS Problem Hyperplastic colonic polyp, unspecified part of colon K63.5 Active SP Problem Neuroforaminal stenosis of lumbosacral spine M99.8 3 Active SP Problem Internal hemorrhoids K64.8 Active 89568400 SP Problem Panlobular emphysema J43.1 Active 6467954 SP Problem Hyperlipidemia, unspecified hyperlipidemia type E7 8.5 Active SP Problem Tear of right rotator cuff, unspecified tear extent M75.101 Active SP Problem History of [place] (myocardial infarction) I25.2 Active [id number] SP Problem Other osteoarthritis of spine, cervical region M47 .892 Active SP Problem Leukocytosis D72.829 Active 8039569 06 SP Problem Low back pain M54.5 Active 452847 005 SP Problem Neuropathy G62.9 Active 774389603 SP Problem Hyperlipidemia E78.5 Active 85679 004 SP Problem Enlarged lymph node R59.9 Active 41266664 SP Problem Tobacco use Z72.0 Active 60354604 0 SP Problem Mood disorder F39 Active 857165 05 SP Problem Non-seasonal allergic rhinitis due to other allergic iggy er J30.89 SP 51392516 SP Problem Uncontrolled type 2 diabetes mellitus with hyperglycemia, without long- SP current use of insulin E11.65 Active 44 8842058 SP Problem Type 2 diabetes mellitus wit h other specified complication, without SPterm current use of insulin E11.69 Active 37455708 SP Problem External hemorrhoids K64.4 Active 48124081 SP Problem Type 2 diabetes mellitus wit hout complication, without long-term current SPuse of insulin E11.9 Active 581701251 SP Problem Hiatal hernia K44.9 Active 321767 09 SP Problem GERD with esophagitis K21.0 Active 404216621 SP Problem Bipolar disorder, unspecified F31.9 Active 26147411 SP Problem Nocturnal hypoxia G47.34 Active 38 2853298 SP Problem Other chronic pain G89.29 Active 8 0212893 SP Problem Gastroesophageal reflux disease, esophagitis pre sence not specified SP Active 721868707 SP ALLERGIES No Information ENCOUNTERS Encounter Location Date Diagnosis POS [facility] [address] [id number] [address] [place] [phone] SP May, SP [facility] [address] [facility] [id number] [address] [place] [address] SP Feb, Bipolar disorder, unspecifie d F31.9 SP [facility] [address] [facility] [id number] [address] [place] [phone] SP Feb, SP [facility] [address] [facility] [id number] [address] [place] [address] SP Jan, Wrist pain M25.539 SP [facility] [address] [id number] [address] [place] [address] SP Jan, Bipolar disorder, unspecifie d F31.9 SP [facility] [address] [id number] [address] [place] [phone] SP Jan, SP [facility] [address] [facility] [id number] [address] [place] [phone] SP Jan, SP [facility] [address] [facility] [id number] [address] [place] [phone] SP Jan, Type 2 diabetes mellitus wit h other specified complication, SP long-term current use of insulin E11.69 ; Tobacco use Z72.0 ; Hyperlipidemia, unspecified hyperlipidemia type E78.5 and Non-seasonal allergic rhinitis due to other allergic trigger J30.89 [facility] [address] [facility] [id number] [address] [place] [address] SP Jan, Trigger middle finger of rig ht hand M65.331 SP [facility] [address] [id number] [address] [place] [phone] SP Jan, Bipolar disorder, unspecifie d F31.9 SP [facility] [address] [id number] [address] [place] [phone] SP Dec, Bipolar disorder, unspecifie d F31.9 SP [facility] [address] [id number] [address] [place] [address] SP Dec, Uncontrolled type 2 diabetes mellitus with hyperglycemia, without SPlong-term current use of insulin E11.65 ; Tear of right rotator cuff, unspecified tear extent M75.101 and Preoperative evaluation to rule out surgical contraindication Z01.818 [facility] [address] [id number] [address] [place] [phone] SP Dec, Bipolar disorder, unspecifie d F31.9 SP [facility] [address] [id number] [address] [place] [phone] SP Dec, Bipolar disorder, unspecifie d F31.9 SP [facility] [address] [id number] [address] [place] [address] SP Dec, Right hand pain M79.641 and Trigger middle finger of right hand SP [facility] [address] [id number] [address] [place] [phone] SP Nov, Bipolar disorder, unspecifie d F31.9 SP [facility] [address] [id number] [address] [place] [phone] SP Nov, SP [facility] [address] [id number] [address] [place] [address] SP Nov, Mood disorder F39 SP [facility] [address] [id number] [address] [place] [address] SP Nov, Swelling of right hand M79.8 9 SP [facility] [address] [facility] [id number] [address] [place] [phone] SP October, Bipolar disorder, unspecifie d F31.9 SP [facility] [address] [facility] [id number] [address] [place] [phone] SP October, Mood disorder F39 SP [facility] [address] [facility] [id number] [address] [place] [phone] SP Sep, SP [facility] [address] [place] [id number] [address] [place] [address] SP Sep, Right hip pain M25.551 SP [facility] [address] [facility] [id number] [address] [place] [phone] SP Sep, Uncontrolled type 2 diabetes mellitus with hyperglycemia, without SPlong-term current use of insulin E11.65 ; Neuropathy G62.9 ; Leukocytosis D72.829 ; Gastroesophageal reflux disease, esophagitis presence not specified K21.9 and Right hip pain M25.551 [facility] [address] [facility] [id number] [address] [place] [address] SP Sep, SP [facility] [address] [facility] [id number] [address] [place] [address] SP Sep, Leukocytosis D72.829 SP [facility] [address] [facility] [id number] [address] [place] [phone] SP Sep, SP [facility] [address] [facility] [id number] [address] [place] [phone] SP Aug, SP [facility] [address] [facility] [id number] [address] [place] [phone] SP Aug, SP [facility] [address] [facility] [id number] [address] [place] [phone] SP Aug, SP [facility] [address] [facility] [id number] [address] [place] [address] SP Aug, SP [facility] [address] [facility] [id number] [address] [place] [address] SP Aug, Mood disorder F39 SP [facility] [address] [facility] [id number] [address] [place] [phone] SP Aug, SP [facility] [address] [facility] [id number] [address] [place] [phone] SP Aug, SP [facility] [address] [facility] [id number] [address] [place] [phone] SP Jul, SP [facility] [address] [facility] [id number] [address] [place] [phone] SP Jul, SP [facility] [address] [facility] [id number] [address] [place] [phone] SP Jun, Bipolar disorder, unspecifie d F31.9 SP [facility] [address] [facility] [id number] [address] [place] [address] SP Jun, Mood disorder F39 SP [facility] [address] [facility] [id number] [address] [place] [address] SP Jun, Leukocytosis D72.829 SP [facility] [address] [facility] [id number] [address] [place] [address] SP Jun, Leukocytosis D72.829 SP [facility] [address] [facility] [id number] [address] [place] [address] SP Jun, SP [facility] [address] [facility] [id number] [address] [place] [address] SP May, SP [facility] [address] [facility] [id number] [address] [place] [phone] SP Apr, Uncontrolled type 2 diabetes mellitus with hyperglycemia, without SPlong-term current use of insulin E11.65 [facility] [address] [facility] [id number] [address] [place] [address] SP Apr, Uncontrolled type 2 diabetes mellitus with hyperglycemia, without SPlong-term current use of insulin E11.65 [facility] [address] [id number] [address] [place] [phone] SP Apr, Preoperative clearance Z01.8 18 and Uncontrolled type 2 diabetes SP with hyperglycemia, without long-term current use of insulin E11.65 [facility] [address] [facility] [id number] [address] [place] [phone] SP Apr, SP [facility] [address] [facility] [id number] [address] [place] [phone] SP Apr, SP [facility] [address] [facility] [id number] [place] [phone] SP Apr, SP [facility] [address] [id number] [place] [phone] SP Apr, SP [facility] [id number] [place] [address] SP Mar, Herpes zoster without compli cation B02.9 SP [facility] [address] [id number] [address] [place] [phone] SP Mar, SP [facility] [address] [id number] [address] [place] [phone] SP Mar, SP [facility] [address] [phone] SP Mar, Uncontrolled type 2 diabetes mellitus with hyperglycemia, without SPlong-term current use of insulin E11.65 [facility] [address] SP Mar, Fall (on) (from) other stair s and steps, initial encounter SP ; Lumbar contusion, initial encounter S30.0XXA ; Elbow pain, right M25.521 and Thoracic spine pain M54.6 [facility] [address] [place] [id number] [address] [place] [phone] SP Mar, Mood disorder F39 SP [facility] [address] [place] [id number] [address] [place] [phone] SP Mar, SP [facility] [id number] [place] [address] SP Mar, Leukocytosis D72.829 SP [facility] [address] [id number] [address] [place] [phone] SP Mar, SP [facility] [address] [id number] [address] [place] [phone] SP Mar, Other chronic gastritis with out hemorrhage K29.50 SP [facility] [address] [id number] [address] [place] [phone] SP Mar, Uncontrolled type 2 diabetes mellitus with hyperglycemia, without SPlong-term current use of insulin E11.65 ; Low back pain M54.5 ; Other osteoarthritis of spine, cervical region M47.892 ; Panlobular emphysema J43.1 ; Leukocytosis D72.829 and Lumbar back pain with radiculopathy affecting lower extremity M54.16 [facility] [address] [facility] [id number] [address] [place] [phone] SP Feb, SP [facility] [address] [id number] [address] [place] [phone] SP Feb, SP [facility] [address] [facility] [id number] [address] [place] [phone] SP Feb, Uncontrolled type 2 diabetes mellitus with hyperglycemia, without SPlong-term current use of insulin E11.65 [facility] [address] [id number] [address] [place] [phone] SP Feb, Mood disorder F39 SP [facility] [address] [id number] [address] [place] [phone] SP Jan, SP [facility] [address] [id number] [address] [place] [phone] SP Jan, Mood disorder F39 SP [facility] [address] [id number] [address] [place] [phone] SP Jan, SP [facility] [address] [id number] [address] [place] [address] SP Dec, Bipolar disorder, unspecifie d F31.9 SP [facility] [address] [facility] [id number] [address] [place] [phone] SP Dec, SP [facility] [address] [facility] [id number] [address] [place] [phone] SP Dec, SP [facility] [address] [facility] [id number] [address] [place] [phone] SP Dec, SP [facility] [address] [facility] [id number] [address] [place] [address] SP Dec, Mood disorder F39 SP [facility] [address] [facility] [id number] [address] [place] [phone] SP Nov, Bipolar disorder, unspecifie d F31.9 SP [facility] [address] [facility] [id number] [address] [place] [address] SP Nov, SP [facility] [address] [facility] [id number] [address] [place] [address] SP Nov, Pain in left knee M25.562 ; Other chronic pain G89.29 ; SP E78.5 ; Leukocytosis D72.829 ; Other osteoarthritis of spine, cervical region M47.892 ; Tobacco use Z72.0 and Uncontrolled type 2 diabetes mellitus with hyperglycemia, without long-term current use of insulin E11.65 [facility] [address] [facility] [id number] [address] [place] [phone] SP Nov, SP [facility] [address] [facility] [id number] [address] [place] [address] SP Nov, SP [facility] [address] [facility] [id number] [address] [place] [phone] SP October, SP [facility] [address] [facility] [id number] [address] [place] [phone] SP October, Low back pain M54.5 SP [facility] [address] [facility] [id number] [address] [place] [phone] SP Sep, SP [facility] [address] [facility] [id number] [address] [place] [phone] SP Sep, SP [facility] [address] [facility] [id number] [address] [place] [address] SP Sep, Leukocytosis D72.829 SP [facility] [address] [facility] [id number] [address] [place] [phone] SP Sep, SP [facility] [address] [facility] [id number] [address] [place] [phone] SP Sep, SP [facility] [address] [facility] [id number] [address] [place] [phone] SP Sep, SP [facility] [address] [place] [id number] [address] [place] [phone] SP Aug, Low back pain M54.5 SP [facility] [address] [facility] [id number] [address] [place] [phone] SP Aug, Bipolar disorder, unspecifie d F31.9 SP [facility] [address] [facility] [id number] [address] [place] [phone] SP Aug, [facility] [address] [facility] [id number] [address] [place] [phone] SP Aug, SP [facility] [address] [facility] [id number] [address] [place] [address] SP Aug, Uncontrolled type 2 diabetes mellitus with hyperglycemia, without SPlong-term current use of insulin E11.65 ; Non-healing surgical wound, initial encounter T81.89XA ; Cellulitis of abdominal wall L03.311 ; Hyperlipidemia E78.5 ; Chronic obstructive pulmonary disease, unspecified COPD type J44.9 and Tobacco use Z72.0 [facility] [address] [facility] [id number] [address] [place] [address] SP Aug, SP [facility] [address] [id number] [address] [place] [phone] SP Jul, SP [facility] [address] [facility] [id number] [address] [place] [phone] SP Jul, SP [facility] [address] [facility] [id number] [address] [place] [address] SP Jul, Type 2 diabetes mellitus wit h diabetic neuropathy, unspecified SP term insulin use status E11.40 [facility] [address] [facility] [id number] [address] [place] [phone] SP Jun, Bipolar disorder, unspecifie d F31.9 SP [facility] [address] [facility] [id number] [address] [place] [phone] SP Jun, SP [facility] [address] [facility] [id number] [address] [place] [phone] SP Jun, Bipolar disorder, unspecifie d F31.9 SP [facility] [address] [facility] [id number] [address] [place] [phone] SP Jun, Mood disorder F39 SP [facility] [address] [facility] [id number] [address] [place] [phone] SP Jun, SP [facility] [address] [facility] [id number] [address] [place] [address] SP May, Fissure in skin of foot R23. 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, unspecified tank terminal gauger insulin use status E11.40 [facility] [address] [facility] [id number] [address] [place] [address] SP May, Mood disorder F39 SP [facility] [address] [facility] [id number] [address] [place] [address] SP Apr, SP [facility] [address] [facility] [id number] [address] [place] [address] SP Apr, Cough R05 and Tobacco use Z7 2.0 SP [facility] [address] [facility] [id number] [address] [place] [address] SP Apr, Cough R05 and Tobacco use Z7 2.0 SP [facility] [address] [facility] [id number] [address] [place] [address] SP Apr, Mood disorder F39 SP [facility] [address] [facility] [id number] [address] [place] [phone] SP Apr, Low back pain M54.5 SP [facility] [address] [facility] [id number] [address] [place] [phone] SP Apr, Uncontrolled type 2 diabetes mellitus with hyperglycemia, without SPlong-term current use of insulin E11.65 [facility] [address] [facility] [id number] [address] [place] [phone] SP Apr, Uncontrolled type 2 diabetes mellitus with hyperglycemia, without SPlong-term current use of insulin E11.65 [facility] [address] [facility] [id number] [address] [place] [phone] SP Mar, Bipolar disorder, unspecifie d F31.9 SP [facility] [address] [facility] [id number] [address] [place] [phone] SP Mar, [facility] [address] [facility] [id number] [address] [place] [phone] SP Mar, Bipolar disorder, unspecifie d F31.9 SP [facility] [address] [facility] [id number] [address] [place] [phone] SP Mar, Mood disorder F39 SP [facility] [address] [facility] [id number] [address] [place] [phone] SP Feb, SP [facility] [address] [facility] [id number] [address] [place] [phone] SP Feb, SP [facility] [address] [facility] [id number] [address] [place] [address] SP Feb, SP [facility] [address] [facility] [id number] [address] [place] [phone] SP Feb, Bipolar disorder, unspecifie d F31.9 [facility] [place] [address] [facility] [id number] [address] [place] [address] SP Feb, Uncontrolled type 2 diabetes mellitus with hyperglycemia, without SPlong-term current use of insulin E11.65 ; Encounter for immunization Z23 ; Vasovagal syncope R55 and Low back pain M54.5 [place] [address] [facility] [id number] [address] [place] [address] SP Jan, Bipolar disorder, unspecifie d F31.9 SP [place] [address] [phone] SP Jan, [place] [address] [address] SP Jan, Fatigue, unspecified type R5 3.83 ; Nocturnal hypoxia G47.34 ; SP D72.829 ; Other chronic gastritis without hemorrhage K29.50 ; Uncontrolled type 2 diabetes mellitus with hyperglycemia, without long-term current use of insulin E11.65 ; Alternating constipation and diarrhea R19.8 and Chronic obstructive pulmonary disease, unspecified COPD type J44.9 [place] [address] [facility] [id number] [address] [place] [phone] SP Jan, [place] [id number] [place] [address] SP Jan, Leukocytosis D72.829 [facility] [place] [address] [facility] [id number] [address] [place] [phone] SP Jan, Mood disorder F39 SP [place] [address] [facility] [id number] [address] [place] [address] SP Dec, Bipolar disorder, unspecifie d F31.9 [facility] [place] [address] [facility] [id number] [address] [place] [phone] SP Dec, [facility] [address] [id number] [address] [place] [address] SP Dec, Acute gastritis without blee ding K29.00 SP [facility] [address] [facility] [id number] [address] [place] [address] SP Dec, Leukocytosis D72.829 SP [facility] [address] [facility] [id number] [address] [place] [phone] SP Dec, [facility] [address] [facility] [id number] [address] [place] [phone] SP Dec, Dental examination Z01.20 [facility] [address] [facility] [id number] [address] [place] [phone] SP Dec, [facility] [address] [facility] [id number] [address] [place] [address] SP Dec, Leukocytosis D72.829 [facility] [address] [facility] [id number] [address] [place] [phone] SP Dec, Uncontrolled type 2 diabetes mellitus with hyperglycemia, without SPlong-term current use of insulin E11.65 [facility] [address] [facility] [id number] [address] [place] [phone] SP Nov, Dental examination Z01.20 [facility] [address] [facility] [id number] [address] [place] [phone] SP Nov, [facility] [address] [facility] [id number] [address] [place] [phone] SP Nov, Major depressive disorder, r ecurrent episode, moderate F33.1 [facility] [address] [facility] [id number] [address] [place] [phone] SP Nov, Leukocytosis D72.829 [facility] [address] [facility] [id number] [address] [place] [phone] SP Nov, Mood disorder F39 [facility] [address] [facility] [id number] [address] [place] [phone] SP Nov, Other osteoarthritis of spin e, cervical region M47.892 and SP type 2 diabetes mellitus with hyperglycemia, without long-term current use of insulin E11.65 [place] [address] [facility] [id number] [address] [place] [phone] SP Nov, Leukocytosis D72.829 and [place] vated serum glucose R73.9 [place] [address] [place] [id number] [address] [place] [phone] SP October, Elevated serum glucose R73.9 [place] [address] [facility] [id number] [address] [place] [phone] SP October, Mood disorder F39 [place] [address] [place] [id number] [address] [place] [phone] SP Sep, Major depressive disorder, r ecurrent episode, moderate F33.1 [place] [address] [facility] [id number] [address] [place] [phone] SP Sep, Mood disorder F39 [place] [address] [facility] [id number] [address] [place] [phone] SP Aug, [place] [address] [place] [id number] [address] [place] [phone] SP Jul, Major depressive disorder, r ecurrent episode, moderate F33.1 [place] [address] [place] [id number] [address] [place] [phone] SP Jul, Mood disorder F39 [place] [address] [facility] [id number] [address] [place] [phone] SP Jul, [place] [address] [facility] [id number] [address] [place] [phone] SP Jul, History of NH (myocardial in farction) I25.2 ; Hyperlipidemia SP ; Prediabetes R73.09 ; Chronic obstructive pulmonary disease, unspecified COPD type J44.9 and Tobacco use Z72.0 [place] [address] [id number] [address] [place] [phone] SP Jun, SP [facility] [address] [facility] [id number] [address] [place] [phone] SP Jun, Mood disorder F39 SP [facility] [address] [facility] [id number] [address] [place] [phone] SP Jun, SP [facility] [address] [facility] [id number] [address] [place] [phone] SP May, Major depressive disorder, r ecurrent episode, moderate F33.1 and SP insomnia F51.01 [facility] [address] [facility] [id number] [address] [place] [phone] SP May, Mood disorder F39 SP [facility] [address] [facility] [id number] [address] [place] [phone] SP Apr, SP [facility] [address] [facility] [id number] [address] [place] [phone] SP Apr, Mood disorder F39 SP [facility] [address] [facility] [id number] [address] [place] [phone] SP Apr, SP [facility] [address] [facility] [id number] [address] [place] [phone] SP Apr, SP [facility] [address] [facility] [id number] [address] [place] [phone] SP Apr, Chronic obstructive pulmonar y disease, unspecified COPD type SP and Non-seasonal allergic rhinitis due to other allergic trigger J30.89 [facility] [address] [facility] [id number] [address] [place] [phone] SP Apr, Mood disorder F39 SP [facility] [address] [facility] [id number] [address] [place] [phone] SP Apr, Major depressive disorder, r ecurrent episode, moderate F33.1 and SP (post-traumatic stress disorder) F43.10 [facility] [address] [id number] [address] [place] [phone] SP Apr, SP [facility] [address] [id number] [address] [place] [phone] SP Apr, SP [facility] [address] [id number] [address] [place] [phone] SP Apr, Chest pain, unspecified type R07.9 ; Chronic obstructive SP disease, unspecified COPD type J44.9 ; Hyperlipidemia, unspecified hyperlipidemia type E78.5 and Tobacco use Z72.0 [facility] [address] [id number] [address] [place] [phone] SP Mar, Mood disorder F39 SP [facility] [address] [id number] [address] [place] [phone] SP Mar, Mood disorder F39 SP [facility] [address] [id number] [address] [place] [phone] SP Mar, Other osteoarthritis of spin e, cervical region M47.892 SP [facility] [address] [id number] [address] [place] [phone] SP Mar, Tear of right rotator cuff, unspecified tear extent M75.101 SP [facility] [address] [id number] [address] [place] [phone] SP Mar, SP [facility] [address] [id number] [address] [place] [phone] SP Mar, Bipolar II disorder F31.81 SP [facility] [address] [id number] [address] [place] [phone] SP Mar, SP [facility] [address] [id number] [address] [place] [phone] SP Feb, Impingement syndrome of righ t shoulder M75.41 ; Tear of right SP cuff, unspecified tear extent M75.101 and Loose body in right elbow M24.021 [facility] [address] [id number] [address] [place] [phone] SP Jan, SP [facility] [address] [facility] [id number] [address] [place] [phone] SP Jan, SP [facility] [address] [facility] [id number] [address] [place] [phone] SP Jan, Prediabetes R73.09 ; Other c hronic pain G89.29 and Pain in right SP M25.511 [place] [address] [facility] [id number] [address] [place] [phone] SP Dec, SP [facility] [address] [place] [id number] [place] [phone] SP Dec, Heartburn R12 and Chest disc omfort R07.89 SP [place] [address] [place] [id number] [place] [phone] SP Dec, Impingement syndrome of righ t shoulder M75.41 and 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, 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 [facility] [address] [facility] [id number] [address] [place] [phone] SP Nov, SP [place] [address] [place] [id number] [place] [phone] SP Nov, Leukocytosis D72.829 SP [place] [address] [place] [id number] [address] [place] [phone] SP Nov, SP [facility] [address] [facility] [id number] [address] [place] [phone] SP Nov, Enlarged lymph node R59.9 ; Chronic obstructive pulmonary SP unspecified COPD type J44.9 ; Low back pain M54.5 ; Neuropathy G62.9 and Closed nondisplaced fracture of sternal end of right clavicle, sequela S42.017S [place] [address] [place] [id number] [address] [place] [phone] SP October, SP [place] [address] [place] [id number] [address] [place] [phone] SP October, SP [place] [address] [phone] SP Sep, SP [place] [address] [place] [id number] [address] [place] [phone] SP Aug, Double vision H53.2 ; Occipi greg headache R51 ; Chronic SP pulmonary disease, unspecified COPD type J44.9 and Gastroesophageal reflux disease, esophagitis presence not specified K21.9 [place] [address] [place] [id number] [place] [phone] SP Aug, SP [place] [address] [place] [id number] [place] [phone] SP Jul, Enlarged lymph node in neck R59.0 SP [place] [address] [phone] SP Jul, SP [place] [address] [place] [id number] [address] [place] [phone] SP Jul, Chronic obstructive pulmonar y disease, unspecified COPD type SP ;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
--- OUTSIDE RECORDS SUMMARY | 2019-04-11 22:49 | XMS REPORT | Clinical Summary ---
Author Author [facility] POS Organization [facility] SP Address Unknown SP Phone Unavailable SP Care Team Providers Care Call Center Support Consultant Name Role Phone POS Aundrea Masters MD PCP SP Source Comments Some departments are not documenting in the electronic medical record. If you d o not see the information that you expected, contact Release of Information in [facility] [employer] Information Management department at [phone] for further assistan ce in locating additional records.[facility] Allergies Comments POS Active Allergy Reactions Severity Noted Date SP SP Ampicillin ANAPHYLAXIS High 07/14/2016 SP SP Penicillins ANAPHYLAXIS High 07/14/2016 SP SP Tetracycline NAUSEA AND Low 07/14/2016 SP VOMITING SP Medications End Date Status POS Medication Sig Dispensed Refills Start SP Date SP Active SP MULTIVITAMIN PO Take by 0 SP mouth daily. SP Active SP ibuprofen (MOTRIN) 400 mg Take 400 mg 0 SP tablet by mouth SP every 8 hours SP as needed for SP Pain. Take SP with food. SP Active SP aspirin 81 mg chewable Chew 81 mg by 0 SP tablet mouth daily. SP Take with SP food. SP Active SP citalopram (CELEXA) 20 mg Take 20 mg by 0 SP tablet mouth daily. SP Active SP traZODone (DESYREL) 150 Take 150 mg 0 SP mg tablet by mouth at SP bedtime as SP needed. SP Active SP budesonide/formoterol Inhale 2 0 SP (SYMBICORT) 160/4.5 mcg Puffs by SP inhalation mouth into SP the lungs SP twice daily. SP Active SP montelukast (SINGULAIR) Take 10 mg by 0 SP 10 mg tablet mouth at SP bedtime SP daily. SP Active SP Cetirizine (ZYRTEC) 10 mg Take by 0 SP cap mouth. SP Active SP dicyclomine (BENTYL) 20 Take 20 mg by 0 SP mg tablet mouth every 6 SP hours. SP Active SP dexlansoprazole (+) Take 60 mg by 0 SP (DEXILANT) 60 mg capsule mouth daily. SP Active Problems No known active problems Family History Medical History Relation Name Comments POS Cancer Father SP Diabetes Father SP Heart problem Father SP Hypertension Father SP Cancer Maternal Breast SP Grandmother SP Cancer Mother SP Diabetes Mother SP Heart problem Mother SP Hypertension Mother SP Relation Name Status Comments SP Brother Alive SP Brother Alive SP Brother Alive SP Daughter Alive SP Daughter Alive SP Father SP Maternal Grandmother SP Mother SP Sister Alive SP Son Alive SP Son Alive SP Social History Date POS Tobacco Use Types Packs/Day Years Used SP SP Current Every Day Smoker SP Drinks/Week oz/Week Comments POS Alcohol Use SP SP 0 Standard drinks or equivalent 0.0 SP No SP Sex Assigned at Date Recorded SP Not on file SP Industry POS Job Start Date Occupation SP Not on file SP Not on file Not on file SP Travel End POS Travel History Travel Start SP No recent travel history available. SP Last Filed Vital Signs Reading Time Taken Comments POS Vital Sign SP 134/84 07/19/2016 12:12 PM DIRECTOR FAMILY SP Blood Pressure SP 88 07/19/2016 12:12 PM DIRECTOR FAMILY SP Pulse SP 36.7 C (98 F) 07/19/2016 12:12 PM DIRECTOR FAMILY SP Temperature SP 22 07/19/2016 12:12 PM DIRECTOR FAMILY SP Respiratory Rate SP 96% 07/19/2016 12:12 PM DIRECTOR FAMILY SP Oxygen Saturation SP - - SP Inhaled Oxygen SP Concentration SP 107.5 kg (237 lb) 07/19/2016 12:12 PM DIRECTOR FAMILY SP Weight SP 172.7 cm (5' 8") 07/19/2016 12:12 PM DIRECTOR FAMILY SP Height SP 36.04 07/19/2016 12:12 PM DIRECTOR FAMILY SP Body Mass Index SP Plan of Treatment Health Maintenance Due Date Last Done Comments POS HEPATITIS C SCREENING 1961 SP HIV SCREENING 02/11/1976 SP DTAP/TDAP VACCINES (1 - 1979 SP Tdap) SP PHYSICAL (COMPREHENSIVE) 1979 SP EXAM SP COLORECTAL CANCER 2011 SP SCREENING SP SHINGLES RECOMBINANT 2011 SP VACCINE (1 of 2) SP INFLUENZA VACCINE 01/03/2019 SP Results Not on filefrom Last 3 Months Insurance Type POS Payer Benefit Subscriber ID Effective Phone Address SP Plan / Dates SP Group SP Medicaid SP [facility] MEDICAID [facility] xxxxxxxxxxx 2016-P SP COMMUNITY resent SP PLAN [place] SP [address] SP [place] (Home) [place] [id number] SP Advance Directives 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
--- OUTSIDE RECORDS SUMMARY | 2019-04-11 22:50 | XMS REPORT ---
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 Name Role Phone POS DORIS LAYTON Unavailable SP PROBLEMS Type Condition ICD9-CM Code DAX66-IR Code Onset Dates Condition S tatus SNOMED POS Problem Other chronic gastritis without hemorrhage K29.50 Active [id number] POS Problem Hyperplastic colonic polyp, unspecified part of colon K63.5 Active SP Problem Neuroforaminal stenosis of lumbosacral spine M99.8 3 Active SP Problem Internal hemorrhoids K64.8 Active 94245395 SP Problem Panlobular emphysema J43.1 Active 9181587 SP Problem Hyperlipidemia, unspecified hyperlipidemia type E7 8.5 Active SP Problem Tear of right rotator cuff, unspecified tear extent M75.101 Active SP Problem History of ND (myocardial infarction) I25.2 Active 641565425 SP Problem Other osteoarthritis of spine, cervical region M47 .892 Active SP Problem Leukocytosis D72.829 Active 2584843 06 SP Problem Low back pain M54.5 Active 821848 005 SP Problem Neuropathy G62.9 Active 318074382 SP Problem Hyperlipidemia E78.5 Active 56955 004 SP Problem Enlarged lymph node R59.9 Active 97029862 SP Problem Tobacco use Z72.0 Active 82192122 0 SP Problem Mood disorder F39 Active 281986 05 SP Problem Non-seasonal allergic rhinitis due to other allergic iggy er J30.89 SP 58793446 SP Problem Uncontrolled type 2 diabetes mellitus with hyperglycemia, without long- SP current use of insulin E11.65 Active 44 7167147 SP Problem Type 2 diabetes mellitus wit h other specified complication, without SPterm current use of insulin E11.69 Active 28410930 SP Problem External hemorrhoids K64.4 Active 58134800 SP Problem Type 2 diabetes mellitus wit hout complication, without long-term current SPuse of insulin E11.9 Active 830166114 SP Problem Hiatal hernia K44.9 Active 400502 09 SP Problem GERD with esophagitis K21.0 Active 328182476 SP Problem Bipolar disorder, unspecified F31.9 Active 98376700 SP Problem Nocturnal hypoxia G47.34 Active 38 8253248 SP Problem Other chronic pain G89.29 Active 8 6745425 SP Problem Gastroesophageal reflux disease, esophagitis pre sence not specified SP Active 740566923 SP ALLERGIES No Information ENCOUNTERS Encounter Location Date Diagnosis POS [facility] [address] [id number] [address] [place] [phone] SP May, SP [facility] [address] [facility] [id number] [address] [place] [phone] SP Feb, Bipolar disorder, unspecifie d F31.9 SP [facility] [address] [facility] [id number] [address] [place] [phone] SP Feb, SP [facility] [address] [facility] [id number] [address] [place] [phone] SP Jan, Wrist pain M25.539 SP [facility] [address] [id number] [address] [place] [phone] SP Jan, Bipolar disorder, unspecifie d F31.9 SP [facility] [address] [id number] [address] [place] [phone] SP Jan, SP [facility] [address] [facility] [id number] [address] [place] [phone] SP Jan, SP [facility] [address] [facility] [id number] [address] [place] [phone] SP Jan, Type 2 diabetes mellitus wit h other specified complication, SP long-term current use of insulin E11.69 ; Tobacco use Z72.0 ; Hyperlipidemia, unspecified hyperlipidemia type E78.5 and Non-seasonal allergic rhinitis due to other allergic trigger J30.89 [facility] [address] [facility] [id number] [address] [place] [phone] SP Jan, Trigger middle finger of rig ht hand M65.331 SP [facility] [address] [id number] [address] [place] [phone] SP Jan, Bipolar disorder, unspecifie d F31.9 SP [facility] [address] [id number] [address] [place] [phone] SP Dec, Bipolar disorder, unspecifie d F31.9 SP [facility] [address] [id number] [address] [place] [phone] SP Dec, Uncontrolled type 2 diabetes mellitus with hyperglycemia, without SPlong-term current use of insulin E11.65 ; Tear of right rotator cuff, unspecified tear extent M75.101 and Preoperative evaluation to rule out surgical contraindication Z01.818 [facility] [address] [id number] [address] [place] [phone] SP Dec, Bipolar disorder, unspecifie d F31.9 SP [facility] [address] [id number] [address] [place] [phone] SP Dec, Bipolar disorder, unspecifie d F31.9 SP [facility] [address] [id number] [address] [place] [address] SP Dec, Right hand pain M79.641 and Trigger middle finger of right hand SP [facility] [address] [id number] [address] [place] [phone] SP Nov, Bipolar disorder, unspecifie d F31.9 SP [facility] [address] [id number] [address] [place] [phone] SP Nov, SP [facility] [address] [id number] [address] [place] [phone] SP Nov, Mood disorder F39 SP [facility] [address] [id number] [address] [place] [phone] SP Nov, Swelling of right hand M79.8 9 SP [facility] [address] [facility] [id number] [address] [place] [phone] SP October, Bipolar disorder, unspecifie d F31.9 SP [facility] [address] [facility] [id number] [address] [place] [phone] SP October, Mood disorder F39 SP [facility] [address] [facility] [id number] [address] [place] [phone] SP Sep, SP [facility] [address] [place] [id number] [address] [place] [phone] SP Sep, Right hip pain M25.551 SP [facility] [address] [facility] [id number] [address] [place] [phone] SP Sep, Uncontrolled type 2 diabetes mellitus with hyperglycemia, without SPlong-term current use of insulin E11.65 ; Neuropathy G62.9 ; Leukocytosis D72.829 ; Gastroesophageal reflux disease, esophagitis presence not specified K21.9 and Right hip pain M25.551 [facility] [address] [facility] [id number] [address] [place] [phone] SP Sep, SP [facility] [address] [facility] [id number] [address] [place] [phone] SP Sep, Leukocytosis D72.829 SP [facility] [address] [facility] [id number] [address] [place] [phone] SP Sep, SP [facility] [address] [facility] [id number] [address] [place] [phone] SP Aug, SP [facility] [address] [facility] [id number] [address] [place] [phone] SP Aug, SP [facility] [address] [facility] [id number] [address] [place] [phone] SP Aug, SP [facility] [address] [facility] [id number] [address] [place] [phone] SP Aug, SP [facility] [address] [facility] [id number] [address] [place] [phone] SP Aug, Mood disorder F39 SP [facility] [address] [facility] [id number] [address] [place] [phone] SP Aug, SP [facility] [address] [facility] [id number] [address] [place] [phone] SP Aug, SP [facility] [address] [facility] [id number] [address] [place] [phone] SP Jul, SP [facility] [address] [facility] [id number] [address] [place] [phone] SP Jul, SP [facility] [address] [facility] [id number] [address] [place] [phone] SP Jun, Bipolar disorder, unspecifie d F31.9 SP [facility] [address] [facility] [id number] [address] [place] [phone] SP Jun, Mood disorder F39 SP [facility] [address] [facility] [id number] [address] [place] [phone] SP Jun, Leukocytosis D72.829 SP [facility] [address] [facility] [id number] [address] [place] [phone] SP Jun, Leukocytosis D72.829 SP [facility] [address] [facility] [id number] [address] [place] [phone] SP Jun, SP [facility] [address] [facility] [id number] [address] [place] [phone] SP May, SP [facility] [address] [facility] [id number] [address] [place] [phone] SP Apr, Uncontrolled type 2 diabetes mellitus with hyperglycemia, without SPlong-term current use of insulin E11.65 [facility] [address] [facility] [id number] [address] [place] [phone] SP Apr, Uncontrolled type 2 diabetes mellitus with hyperglycemia, without SPlong-term current use of insulin E11.65 [facility] [address] [id number] [address] [place] [phone] SP Apr, Preoperative clearance Z01.8 18 and Uncontrolled type 2 diabetes SP with hyperglycemia, without long-term current use of insulin E11.65 [facility] [address] [facility] [id number] [address] [place] [phone] SP Apr, SP [facility] [address] [facility] [id number] [address] [place] [phone] SP Apr, SP [facility] [address] [facility] [id number] [place] [phone] SP Apr, SP [facility] [address] [id number] [place] [phone] SP Apr, SP [facility] [address] [place] [id number] [place] [address] SP Mar, Herpes zoster without compli cation B02.9 SP [facility] [address] [place] [id number] [address] [place] [phone] SP Mar, SP [facility] [address] [place] [id number] [address] [place] [phone] SP Mar, SP [facility] [address] [phone] SP Mar, Uncontrolled type 2 diabetes mellitus with hyperglycemia, without SPlong-term current use of insulin E11.65 [facility] [address] SP Mar, Fall (on) (from) other stair s and steps, initial encounter SP ; Lumbar contusion, initial encounter S30.0XXA ; Elbow pain, right M25.521 and Thoracic spine pain M54.6 [facility] [address] [place] [id number] [address] [place] [phone] SP Mar, Mood disorder F39 SP [facility] [address] [place] [id number] [address] [place] [phone] SP Mar, SP [facility] [address] [id number] [place] [address] SP Mar, Leukocytosis D72.829 SP [facility] [address] [id number] [address] [place] [phone] SP Mar, SP [facility] [address] [id number] [address] [place] [phone] SP Mar, Other chronic gastritis with out hemorrhage K29.50 SP [facility] [address] [id number] [address] [place] [phone] SP Mar, Uncontrolled type 2 diabetes mellitus with hyperglycemia, without SPlong-term current use of insulin E11.65 ; Low back pain M54.5 ; Other osteoarthritis of spine, cervical region M47.892 ; Panlobular emphysema J43.1 ; Leukocytosis D72.829 and Lumbar back pain with radiculopathy affecting lower extremity M54.16 [facility] [address] [facility] [id number] [address] [place] [phone] SP Feb, SP [facility] [address] [id number] [address] [place] [phone] SP Feb, SP [facility] [address] [facility] [id number] [address] [place] [phone] SP Feb, Uncontrolled type 2 diabetes mellitus with hyperglycemia, without SPlong-term current use of insulin E11.65 [facility] [address] [id number] [address] [place] [phone] SP Feb, Mood disorder F39 SP [facility] [address] [id number] [address] [place] [phone] SP Jan, SP [facility] [address] [id number] [address] [place] [phone] SP Jan, Mood disorder F39 SP [facility] [address] [id number] [address] [place] [phone] SP Jan, SP [facility] [address] [id number] [address] [place] [phone] SP Dec, Bipolar disorder, unspecifie d F31.9 SP [facility] [address] [facility] [id number] [address] [place] [phone] SP Dec, SP [facility] [address] [facility] [id number] [address] [place] [phone] SP Dec, SP [facility] [address] [facility] [id number] [address] [place] [phone] SP Dec, SP [facility] [address] [facility] [id number] [address] [place] [phone] SP Dec, Mood disorder F39 SP [facility] [address] [facility] [id number] [address] [place] [phone] SP Nov, Bipolar disorder, unspecifie d F31.9 SP [facility] [address] [facility] [id number] [address] [place] [phone] SP Nov, SP [facility] [address] [facility] [id number] [address] [place] [phone] SP Nov, Pain in left knee M25.562 ; Other chronic pain G89.29 ; SP E78.5 ; Leukocytosis D72.829 ; Other osteoarthritis of spine, cervical region M47.892 ; Tobacco use Z72.0 and Uncontrolled type 2 diabetes mellitus with hyperglycemia, without long-term current use of insulin E11.65 [facility] [address] [facility] [id number] [address] [place] [phone] SP Nov, SP [facility] [address] [facility] [id number] [address] [place] [phone] SP Nov, SP [facility] [address] [facility] [id number] [address] [place] [phone] SP October, SP [facility] [address] [facility] [id number] [address] [place] [phone] SP October, Low back pain M54.5 SP [facility] [address] [facility] [id number] [address] [place] [phone] SP Sep, SP [facility] [address] [facility] [id number] [address] [place] [phone] SP Sep, SP [facility] [address] [facility] [id number] [address] [place] [phone] SP Sep, Leukocytosis D72.829 SP [facility] [address] [facility] [id number] [address] [place] [phone] SP Sep, SP [facility] [address] [facility] [id number] [address] [place] [phone] SP Sep, SP [facility] [address] [facility] [id number] [address] [place] [phone] SP Sep, SP [facility] [address] [place] [id number] [address] [place] [phone] SP Aug, Low back pain M54.5 SP [facility] [address] [facility] [id number] [address] [place] [phone] SP Aug, Bipolar disorder, unspecifie d F31.9 SP [facility] [address] [facility] [id number] [address] [place] [phone] SP Aug, [facility] [address] [facility] [id number] [address] [place] [phone] SP Aug, SP [facility] [address] [facility] [id number] [address] [place] [phone] SP Aug, Uncontrolled type 2 diabetes mellitus with hyperglycemia, without SPlong-term current use of insulin E11.65 ; Non-healing surgical wound, initial encounter T81.89XA ; Cellulitis of abdominal wall L03.311 ; Hyperlipidemia E78.5 ; Chronic obstructive pulmonary disease, unspecified COPD type J44.9 and Tobacco use Z72.0 [facility] [address] [facility] [id number] [address] [place] [phone] SP Aug, SP [facility] [address] [id number] [address] [place] [phone] SP Jul, SP [facility] [address] [facility] [id number] [address] [place] [phone] SP Jul, SP [facility] [address] [facility] [id number] [address] [place] [phone] SP Jul, Type 2 diabetes mellitus wit h diabetic neuropathy, unspecified SP term insulin use status E11.40 [facility] [address] [facility] [id number] [address] [place] [phone] SP Jun, Bipolar disorder, unspecifie d F31.9 SP [facility] [address] [facility] [id number] [address] [place] [phone] SP Jun, SP [facility] [address] [facility] [id number] [address] [place] [phone] SP Jun, Bipolar disorder, unspecifie d F31.9 SP [facility] [address] [facility] [id number] [address] [place] [phone] SP Jun, Mood disorder F39 SP [facility] [address] [facility] [id number] [address] [place] [phone] SP Jun, SP [facility] [address] [facility] [id number] [address] [place] [phone] SP May, Fissure in skin of foot R23. 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 [facility] [address] [facility] [id number] [address] [place] [phone] SP May, Mood disorder F39 SP [facility] [address] [facility] [id number] [address] [place] [phone] SP Apr, SP [facility] [address] [facility] [id number] [address] [place] [phone] SP Apr, Cough R05 and Tobacco use Z7 2.0 SP [facility] [address] [facility] [id number] [address] [place] [phone] SP Apr, Cough R05 and Tobacco use Z7 2.0 SP [facility] [address] [facility] [id number] [address] [place] [phone] SP Apr, Mood disorder F39 SP [facility] [address] [facility] [id number] [address] [place] [phone] SP Apr, Low back pain M54.5 SP [facility] [address] [facility] [id number] [address] [place] [phone] SP Apr, Uncontrolled type 2 diabetes mellitus with hyperglycemia, without SPlong-term current use of insulin E11.65 [facility] [address] [facility] [id number] [address] [place] [phone] SP Apr, Uncontrolled type 2 diabetes mellitus with hyperglycemia, without SPlong-term current use of insulin E11.65 [facility] [address] [facility] [id number] [address] [place] [phone] SP Mar, Bipolar disorder, unspecifie d F31.9 SP [facility] [address] [facility] [id number] [address] [place] [phone] SP Mar, [facility] [address] [facility] [id number] [address] [place] [phone] SP Mar, Bipolar disorder, unspecifie d F31.9 SP [facility] [address] [facility] [id number] [address] [place] [phone] SP Mar, Mood disorder F39 SP [facility] [address] [facility] [id number] [address] [place] [id number] SP Feb, SP [facility] [address] [facility] [id number] [address] [place] [phone] SP Feb, SP [facility] [address] [facility] [id number] [address] [place] [phone] SP Feb, SP [facility] [address] [facility] [id number] [address] [place] [phone] SP Feb, Bipolar disorder, unspecifie d F31.9 SP [place] [address] [address] [facility] [id number] [address] [place] [id number] SP Feb, Uncontrolled type 2 diabetes mellitus with hyperglycemia, without SPlong-term current use of insulin E11.65 ; Encounter for immunization Z23 ; Vasovagal syncope R55 and Low back pain M54.5 [place] [address] [address] [facility] [id number] [address] [place] [id number] SP Jan, Bipolar disorder, unspecifie d F31.9 SP [place] [address] [phone] SP Jan, [place] [address] [phone] SP Jan, Fatigue, unspecified type R5 3.83 ; Nocturnal hypoxia G47.34 ; SP D72.829 ; Other chronic gastritis without hemorrhage K29.50 ; Uncontrolled type 2 diabetes mellitus with hyperglycemia, without long-term current use of insulin E11.65 ; Alternating constipation and diarrhea R19.8 and Chronic obstructive pulmonary disease, unspecified COPD type J44.9 [place] [address] [address] [facility] [id number] [address] [place] [phone] SP Jan, [place] [id number] [place] [phone] SP Jan, Leukocytosis D72.829 SP [place] [address] [address] [facility] [id number] [address] [place] [phone] SP Jan, Mood disorder F39 SP [place] [address] [address] [facility] [id number] [address] [place] [id number] SP Dec, Bipolar disorder, unspecifie d F31.9 SP [place] [address] [address] [facility] [id number] [address] [place] [phone] SP Dec, [facility] [address] [id number] [address] [place] [address] SP Dec, Acute gastritis without blee ding K29.00 SP [facility] [address] [facility] [id number] [address] [place] [phone] SP Dec, Leukocytosis D72.829 SP [facility] [address] [facility] [id number] [address] [place] [phone] SP Dec, [facility] [address] [facility] [id number] [address] [place] [phone] SP Dec, Dental examination Z01.20 [facility] [address] [facility] [id number] [address] [place] [phone] SP Dec, [facility] [address] [facility] [id number] [address] [place] [phone] SP Dec, Leukocytosis D72.829 [facility] [address] [facility] [id number] [address] [place] [phone] SP Dec, Uncontrolled type 2 diabetes mellitus with hyperglycemia, without SPlong-term current use of insulin E11.65 [facility] [address] [facility] [id number] [address] [place] [phone] SP Nov, Dental examination Z01.20 [facility] [address] [facility] [id number] [address] [place] [phone] SP Nov, [facility] [address] [facility] [id number] [address] [place] [phone] SP Nov, Major depressive disorder, r ecurrent episode, moderate F33.1 [facility] [address] [facility] [id number] [address] [place] [phone] SP Nov, Leukocytosis D72.829 [facility] [address] [facility] [id number] [address] [place] [phone] SP Nov, Mood disorder F39 [facility] [address] [facility] [id number] [address] [place] [phone] SP Nov, Other osteoarthritis of spin e, cervical region M47.892 and SP type 2 diabetes mellitus with hyperglycemia, without long-term current use of insulin E11.65 [place] [address] [facility] [id number] [address] [place] [phone] SP Nov, Leukocytosis D72.829 and Sapphire vated serum glucose R73.9 [place] [address] [place] [id number] [address] [place] [phone] SP October, Elevated serum glucose R73.9 [place] [address] [facility] [id number] [address] [place] [phone] SP October, Mood disorder F39 [place] [address] [place] [id number] [address] [place] [phone] SP Sep, Major depressive disorder, r ecurrent episode, moderate F33.1 [place] [address] [facility] [id number] [address] [place] [phone] SP Sep, Mood disorder F39 [place] [address] [facility] [id number] [address] [place] [phone] SP Aug, [place] [address] [place] [id number] [address] [place] [phone] SP Jul, Major depressive disorder, r ecurrent episode, moderate F33.1 [place] [address] [place] [id number] [address] [place] [phone] SP Jul, Mood disorder F39 [place] [address] [facility] [id number] [address] [place] [phone] SP Jul, [place] [address] [facility] [id number] [address] [place] [phone] SP Jul, History of ND (myocardial in farction) I25.2 ; Hyperlipidemia SP ; Prediabetes R73.09 ; Chronic obstructive pulmonary disease, unspecified COPD type J44.9 and Tobacco use Z72.0 [place] [address] [id number] [address] [place] [phone] SP Jun, SP [facility] [address] [facility] [id number] [address] [place] [phone] SP Jun, Mood disorder F39 SP [facility] [address] [facility] [id number] [address] [place] [phone] SP Jun, SP [facility] [address] [facility] [id number] [address] [place] [phone] SP May, Major depressive disorder, r ecurrent episode, moderate F33.1 and SP insomnia F51.01 [facility] [address] [facility] [id number] [address] [place] [phone] SP May, Mood disorder F39 SP [facility] [address] [facility] [id number] [address] [place] [phone] SP Apr, SP [facility] [address] [facility] [id number] [address] [place] [phone] SP Apr, Mood disorder F39 SP [facility] [address] [facility] [id number] [address] [place] [phone] SP Apr, SP [facility] [address] [facility] [id number] [address] [place] [phone] SP Apr, SP [facility] [address] [facility] [id number] [address] [place] [phone] SP Apr, Chronic obstructive pulmonar y disease, unspecified COPD type SP and Non-seasonal allergic rhinitis due to other allergic trigger J30.89 [facility] [address] [facility] [id number] [address] [place] [phone] SP Apr, Mood disorder F39 SP [facility] [address] [facility] [id number] [address] [place] [phone] SP Apr, Major depressive disorder, r ecurrent episode, moderate F33.1 and SP (post-traumatic stress disorder) F43.10 [facility] [address] [id number] [address] [place] [phone] SP Apr, SP [facility] [address] [id number] [address] [place] [phone] SP Apr, SP [facility] [address] [id number] [address] [place] [phone] SP Apr, Chest pain, unspecified type R07.9 ; Chronic obstructive SP disease, unspecified COPD type J44.9 ; Hyperlipidemia, unspecified hyperlipidemia type E78.5 and Tobacco use Z72.0 [facility] [address] [id number] [address] [place] [phone] SP Mar, Mood disorder F39 SP [facility] [address] [id number] [address] [place] [phone] SP Mar, Mood disorder F39 SP [facility] [address] [id number] [address] [place] [phone] SP Mar, Other osteoarthritis of spin e, cervical region M47.892 SP [facility] [address] [id number] [address] [place] [phone] SP Mar, Tear of right rotator cuff, unspecified tear extent M75.101 SP [facility] [address] [id number] [address] [place] [phone] SP Mar, SP [facility] [address] [id number] [address] [place] [phone] SP Mar, Bipolar II disorder F31.81 SP [facility] [address] [id number] [address] [place] [phone] SP Mar, SP [facility] [address] [id number] [address] [place] [phone] SP Feb, Impingement syndrome of righ t shoulder M75.41 ; Tear of right SP cuff, unspecified tear extent M75.101 and Loose body in right elbow M24.021 [facility] [address] [id number] [address] [place] [phone] SP Jan, SP [facility] [address] [facility] [id number] [address] [place] [phone] SP Jan, SP [facility] [address] [facility] [id number] [address] [place] [phone] SP Jan, Prediabetes R73.09 ; Other c hronic pain G89.29 and Pain in right SP M25.511 [place] [address] [address] [facility] [id number] [address] [place] [phone] SP Dec, SP [facility] [address] [place] [id number] [place] [phone] SP Dec, Heartburn R12 and Chest disc omfort R07.89 SP [place] [address] [place] [id number] [place] [phone] SP Dec, Impingement syndrome of righ t shoulder M75.41 and 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, 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 [facility] [address] [facility] [id number] [address] [place] [phone] SP Nov, SP [place] [address] [place] [id number] [place] [phone] SP Nov, Leukocytosis D72.829 SP [place] [address] [place] [id number] [address] [place] [phone] SP Nov, SP [facility] [address] [facility] [id number] [address] [place] [phone] SP Nov, Enlarged lymph node R59.9 ; Chronic obstructive pulmonary SP unspecified COPD type J44.9 ; Low back pain M54.5 ; Neuropathy G62.9 and Closed nondisplaced fracture of sternal end of right clavicle, sequela S42.017S [place] [id number] [place] [id number] [address] [place] [phone] SP October, SP [place] [address] [place] [id number] [address] [place] [phone] SP October, SP [place] [address] [phone] SP Sep, SP [place] [address] [place] [id number] [address] [place] [phone] SP Aug, Double vision H53.2 ; Occipi greg headache R51 ; Chronic SP pulmonary disease, unspecified COPD type J44.9 and Gastroesophageal reflux disease, esophagitis presence not specified K21.9 [place] [address] [place] [id number] [place] [phone] SP Aug, SP [place] [address] [place] [id number] [place] [phone] SP Jul, Enlarged lymph node in neck R59.0 SP [place] [address] [phone] SP Jul, SP [place] [address] [address] [place] [id number] [address] [place] [phone] SP Jul, Chronic obstructive pulmonar y disease, unspecified COPD type SP ; Tobacco use Z72.0 ; Leukocytosis D72.829 ; Hyperlipidemia E78.5 and Neck abscess L02.11 [place] [address] [address] [place] [id number] [address] [place] [address] SP Jun, Shortness of breath R06.02 SP [place] [address] [place] [id number] [address] [place] [phone] SP May, Leukocytosis D72.829 and Susan rtness of breath R06.02 SP [place] [address] [place] [id number] [address] [place] [phone] SP May, Low back pain M54.5 ; Hyperl ipidemia E78.5 ; Leukocytosis D72.829 SP; Other osteoarthritis of spine, cervical region M47.892 and Shortness of breath R06.02 [place] [id number] [place] [id number] [place] [address] SP Feb, Chest pain 786.50 ; Tobacco use 305.1 ; Back pain 724.5 and SP 272.4 [place] [id number] [place] [id number] [place] [address] SP Jan, SP [place] [address] [place] [id number] [place] [phone] SP Jan, Chronic low back pain 724.2 and Degenerative arthritis of SP spine 721.0 [place] [address] [place] [id number] [place] [address] SP Jan, Chronic low back pain 724.2 and Neck pain 723.1 SP [place] [address] [place] [id number] [place] [address] SP Dec, Chronic low back pain 724.2 and Neck pain 723.1 SP [place] [address] [phone] SP Nov, Chest pain 786.50 ; Dyspnea 786.09 ; Tobacco use 305.1 and Back SP 724.5 [place] [address] [phone] SP Nov, SP [place] [address] [address] SP Nov, Disability examination V68.0 1 and Muscle pain 729.1 SP [place] [address] [place] [id number] [place] [address] SP October, History of ND (myocardial in farction) 412 ; Hyperlipidemia LDL SP < 100 272.4 ; Leukocytosis 288.60 and Glucose intolerance (pre-diabetes) 790.29 [place] [address] [address] [place] [id number] [place] [address] SP October, Chest pain 786.50 ; Chronic low back pain 724.2 ; History of ND SP infarction) 412 and Neuropathy 355.9 [facility] [address] [facility] [id number] [address] [place] [address] SP October, Chronic low back pain 724.2 ; Chest pain 786.50 ; History of ND SP infarction) 412 and Neuropathy 355.9 IMMUN[facility]ATIONS [...]
--- OUTSIDE RECORDS SUMMARY | 2019-04-11 22:50 | XMS REPORT ---
Author Author DORIS LAYTON POS Organization [facility] SP Address [address] [place] [address] SP Care Team Providers Care Dean Name Role Phone POS DORIS LAYTON Unavailable SP PROBLEMS Type Condition ICD9-CM Code LOB89-XA Code Onset Dates Condition S tatus SNOMED POS Problem Other chronic gastritis without hemorrhage K29.50 Active 5447694 POS Problem Hyperplastic colonic polyp, unspecified part of colon K63.5 Active SP Problem Neuroforaminal stenosis of lumbosacral spine M99.8 3 Active SP Problem Enlarged lymph node R59.9 Active 60048516 SP Problem Tobacco use Z72.0 Active 74084238 0 SP Problem GERD with esophagitis K21.0 Active 252386892 SP Problem External hemorrhoids K64.4 Active 27507146 SP Problem History of HI (myocardial infarction) I25.2 Active 991903277 SP Problem Other osteoarthritis of spine, cervical region M47 .892 Active SP Problem Leukocytosis D72.829 Active 8805640 06 SP Problem Low back pain M54.5 Active 329383 005 SP Problem Neuropathy G62.9 Active 879425694 SP Problem Hyperlipidemia E78.5 Active 34292 004 SP Problem Tear of right rotator cuff, unspecified tear extent M75.101 Active SP Problem Hyperlipidemia, unspecified hyperlipidemia type E7 8.5 Active SP Problem Mood disorder F39 Active 356108 05 SP Problem Other chronic pain G89.29 Active 8 2206736 SP Problem Internal hemorrhoids K64.8 Active 16276976 SP Problem Gastroesophageal reflux disease, esophagitis pre sence not specified SP Active 906209531 SP Problem Panlobular emphysema J43.1 Active 1171130 SP Problem Hiatal hernia K44.9 Active 476023 09 SP Problem Non-seasonal allergic rhinitis due to other allergic iggy er J30.89 SP 50529226 SP Problem Uncontrolled type 2 diabetes mellitus with hyperglycemia, without long- SP current use of insulin E11.65 Active 44 0109481 SP Problem Bipolar disorder, unspecified F31.9 Active 40884590 SP Problem Nocturnal hypoxia G47.34 Active 38 8495574 SP ALLERGIES No Information ENCOUNTERS Encounter Location Date Diagnosis POS [facility] [address] [id number] [address] [place] [address] SP Jan, SP [place] [address] [facility] [id number] [address] [place] [address] SP Jan, SP [facility] [address] [facility] [id number] [address] [place] [address] SP Jan, SP [place] [address] [address] SP Jan, [place] [address] [id number] [place] [address] SP Dec, Bipolar disorder, unspecifie d F31.9 SP [place] [id number] [place] [address] SP Dec, Uncontrolled type 2 diabetes mellitus with hyperglycemia, without SPlong-term current use of insulin E11.65 and Tear of right rotator cuff, unspecified tear extent M75.101 [place] [id number] [place] [address] SP Dec, Bipolar disorder, unspecifie d F31.9 SP [facility] [address] [facility] [id number] [address] [place] [address] SP Dec, Bipolar disorder, unspecifie d F31.9 [facility] [address] [facility] [id number] [address] [place] [address] SP Dec, Right hand pain M79.641 and Trigger middle finger of right hand SP [facility] [address] [facility] [id number] [address] [place] [address] SP Nov, Bipolar disorder, unspecifie d F31.9 SP [facility] [address] [id number] [address] [place] [address] SP Nov, SP [facility] [address] [id number] [address] [place] [address] SP Nov, Mood disorder F39 SP [facility] [address] [facility] [id number] [address] [place] [address] SP Nov, Swelling of right hand M79.8 9 SP [facility] [address] [facility] [id number] [address] [place] [address] SP October, Bipolar disorder, unspecifie d F31.9 SP [facility] [address] [facility] [id number] [address] [place] [phone] SP October, Mood disorder F39 SP [facility] [address] [facility] [id number] [address] [place] [address] SP Sep, [facility] [address] [facility] [id number] [address] [place] [address] SP Sep, Right hip pain M25.551 SP [facility] [address] [facility] [id number] [address] [place] [address] SP Sep, Uncontrolled type 2 diabetes mellitus with hyperglycemia, without SPlong-term current use of insulin E11.65 ; Neuropathy G62.9 ; Leukocytosis D72.829 ; Gastroesophageal reflux disease, esophagitis presence not specified K21.9 and Right hip pain M25.551 [facility] [address] [facility] [id number] [address] [place] [address] SP Sep, SP [facility] [address] [facility] [id number] [address] [place] [address] SP Sep, Leukocytosis D72.829 SP [facility] [address] [facility] [id number] [address] [place] [address] SP Sep, SP [facility] [address] [facility] [id number] [address] [place] [address] SP Aug, SP [facility] [address] [id number] [address] [place] [address] SP Aug, SP [facility] [address] [facility] [id number] [address] [place] [address] SP Aug, SP [facility] [address] [facility] [id number] [address] [place] [phone] SP Aug, SP [facility] [address] [facility] [id number] [address] [place] [address] SP Aug, Mood disorder F39 SP [facility] [address] [id number] [address] [place] [address], [place] [address] SP Aug, SP [facility] [address] [facility] [id number] [address] [place] [address] SP Aug, SP [facility] [address] [facility] [id number] [address] [place] [address] SP Jul, SP [facility] [address] [facility] [id number] [address] [place] [address] SP Jul, SP [facility] [address] [facility] [id number] [address] [place] [address] SP Jun, Bipolar disorder, unspecifie d F31.9 SP [facility] [address] [facility] [id number] [address] [place] [address] SP Jun, Mood disorder F39 SP [facility] [address] [facility] [id number] [address] [place] [address] SP Jun, Leukocytosis D72.829 SP [facility] [address] [facility] [id number] [address] [place] [address] SP Jun, Leukocytosis D72.829 SP [facility] [address] [facility] [id number] [address] [place] [address] SP Jun, SP [facility] [address] [facility] [id number] [address] [place] [address] SP May, SP [facility] [address] [facility] [id number] [address] [place] [address] SP Apr, Uncontrolled type 2 diabetes mellitus with hyperglycemia, without SPlong-term current use of insulin E11.65 [facility] [address] [facility] [id number] [address] [place] [phone] SP Apr, Uncontrolled type 2 diabetes mellitus with hyperglycemia, without SPlong-term current use of insulin E11.65 [facility] [address] [facility] [id number] [address] [place] [address] SP Apr, Preoperative clearance Z01.8 18 and Uncontrolled type 2 diabetes SP with hyperglycemia, without long-term current use of insulin E11.65 [facility] [address] [facility] [id number] [address] [place] [address] SP Apr, [facility] [address] [facility] [id number] [address] [place] [phone] SP Apr, [facility] [address] [facility] [id number] [address] [place] [phone] SP Apr, [facility] [address] [facility] [id number] [address] [place] [address] SP Apr, [facility] [address] [facility] [id number] [address] [place] [address] SP Mar, Herpes zoster without compli cation B02.9 SP [facility] [address] [facility] [id number] [address] [place] [address] SP Mar, [facility] [address] [id number] [address] [place] [address] SP Mar, [facility] [address] [facility] [id number] [address] [place] [address] SP Mar, Uncontrolled type 2 diabetes mellitus with hyperglycemia, without SPlong-term current use of insulin E11.65 [facility] [address] [facility] [id number] [address] [place] [address] SP Mar, Fall (on) (from) other stair s and steps, initial encounter SP ; Lumbar contusion, initial encounter S30.0XXA ; Elbow pain, right M25.521 and Thoracic spine pain M54.6 [place] [address] [id number] [address] [place] [phone] SP Mar, Mood disorder F39 SP [place] [address] [id number] [address] [place] [address] SP Mar, SP [place] [address] [id number] [address] [place] [address] SP Mar, Leukocytosis D72.829 SP [place] [address] [id number] [address] [place] [address] SP Mar, SP [place] [address] [id number] [address] [place] [address] SP Mar, Other chronic gastritis with out hemorrhage K29.50 SP [place] [address] [id number] [address] [place] [address] SP Mar, Uncontrolled type 2 diabetes mellitus with hyperglycemia, without SPlong-term current use of insulin E11.65 ; Low back pain M54.5 ; Other osteoarthritis of spine, cervical region M47.892 ; Panlobular emphysema J43.1 ; Leukocytosis D72.829 and Lumbar back pain with radiculopathy affecting lower extremity M54.16 [place] [address] [id number] [address] [place] [phone] SP Feb, SP [place] [address] [id number] [address] [place] [address] SP Feb, SP [place] [address] [id number] [address] [place] [phone] SP Feb, Uncontrolled type 2 diabetes mellitus with hyperglycemia, without SPlong-term current use of insulin E11.65 [place] [address] [id number] [address] [place] [address] SP Feb, Mood disorder F39 SP [facility] [address] [id number] [address] [place] [phone] SP Jan, SP [facility] [address] [facility] [id number] [address] [place] [phone] SP Jan, Mood disorder F39 SP [facility] [address] [facility] [id number] [address] [place] [phone] SP Jan, SP [facility] [address] [facility] [id number] [address] [place] [address] SP Dec, Bipolar disorder, unspecifie d F31.9 SP [facility] [address] [id number] [address] [place] [address] SP Dec, SP [facility] [address] [facility] [id number] [address] [place] [phone] SP Dec, SP [facility] [address] [facility] [id number] [address] [place] [phone] SP Dec, SP [facility] [address] [facility] [id number] [address] [place] [address] SP Dec, Mood disorder F39 SP [facility] [address] [facility] [id number] [address] [place] [phone] SP Nov, Bipolar disorder, unspecifie d F31.9 SP [facility] [address] [facility] [id number] [address] [place] [phone] SP Nov, SP [facility] [address] [facility] [id number] [address] [place] [address] SP Nov, Pain in left knee M25.562 ; Other chronic pain G89.29 ; SP E78.5 ; Leukocytosis D72.829 ; Other osteoarthritis of spine, cervical region M47.892 ; Tobacco use Z72.0 and Uncontrolled type 2 diabetes mellitus with hyperglycemia, without long-term current use of insulin E11.65 [facility] [address] [facility] [id number] [address] [place] [address] SP Nov, SP [facility] [address] [id number] [address] [place] [phone] SP Nov, SP [facility] [address] [id number] [address] [place] [address] SP October, SP [facility] [address] [facility] [id number] [address] [place] [address] SP October, Low back pain M54.5 SP [facility] [address] [id number] [address] [place] [address], [place] [address] SP Sep, SP [facility] [address] [facility] [id number] [address] [place] [address] SP Sep, SP [facility] [address] [facility] [id number] [address] [place] [address] SP Sep, Leukocytosis D72.829 SP [facility] [address] [id number] [address] [place] [address] SP Sep, SP [facility] [address] [id number] [address] [place] [address] SP Sep, SP [facility] [address] [facility] [id number] [address] [place] [phone] SP Sep, SP [facility] [address] [facility] [id number] [address] [place] [address] SP Aug, Low back pain M54.5 SP [facility] [address] [id number] [address] [place] [address] SP Aug, Bipolar disorder, unspecifie d F31.9 SP [facility] [address] [id number] [address] [place] [address] SP Aug, SP [facility] [address] [facility] [id number] [address] [place] [address] SP Aug, SP [facility] [address] [facility] [id number] [address] [place] [address] SP Aug, Uncontrolled type 2 diabetes mellitus with hyperglycemia, without SPlong-term current use of insulin E11.65 ; Non-healing surgical wound, initial encounter T81.89XA ; Cellulitis of abdominal wall L03.311 ; Hyperlipidemia E78.5 ; Chronic obstructive pulmonary disease, unspecified COPD type J44.9 and Tobacco use Z72.0 [facility] [address] [facility] [id number] [address] [place] [address] SP Aug, SP [facility] [address] [facility] [id number] [address] [place] [phone] SP Jul, SP [facility] [address] [facility] [id number] [address] [place] [address] SP Jul, SP [facility] [address] [facility] [id number] [address] [place] [address] SP Jul, Type 2 diabetes mellitus wit h diabetic neuropathy, unspecified SP term insulin use status E11.40 [facility] [address] [facility] [id number] [address] [place] [address] SP Jun, Bipolar disorder, unspecifie d F31.9 SP [facility] [address] [facility] [id number] [address] [place] [phone] SP Jun, SP [facility] [address] [facility] [id number] [address] [place] [address] SP Jun, Bipolar disorder, unspecifie d F31.9 SP [facility] [address] [facility] [id number] [address] [place] [address] SP Jun, Mood disorder F39 SP [facility] [address] [facility] [id number] [address] [place] [phone] SP Jun, SP [facility] [address] [facility] [id number] [address] [place] [address] SP May, Fissure in skin of foot R23. 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, unspecified assisted insulin use status E11.40 [facility] [address] [facility] [id number] [address] [place] [phone] SP May, Mood disorder F39 SP [facility] [address] [facility] [id number] [address] [place] [phone] SP Apr, SP [facility] [address] [facility] [id number] [address] [place] [phone] SP Apr, Cough R05 and Tobacco use Z7 2.0 SP [facility] [address] [facility] [id number] [address] [place] [address] SP Apr, Cough R05 and Tobacco use Z7 2.0 SP [place] [address] [facility] [id number] [address] [place] [address] SP Apr, Mood disorder F39 SP [place] [address] [facility] [id number] [address] [place] [address] SP Apr, Low back pain M54.5 SP [place] [address] [facility] [id number] [address] [place] [address] SP Apr, Uncontrolled type 2 diabetes mellitus with hyperglycemia, without SPlong-term current use of insulin E11.65 [place] [address] [facility] [id number] [address] [place] [address] SP Apr, Uncontrolled type 2 diabetes mellitus with hyperglycemia, without SPlong-term current use of insulin E11.65 [place] [address] [facility] [id number] [address] [place] [address] SP Mar, Bipolar disorder, unspecifie d F31.9 SP [place] [address] [facility] [id number] [address] [place] [phone] SP Mar, SP [facility] [address] [facility] [id number] [address] [place] [phone] SP Mar, Bipolar disorder, unspecifie d F31.9 SP [place] [address] [place] [id number] [address] [place] [phone] SP Mar, Mood disorder F39 SP [place] [address] [facility] [id number] [address] [place] [phone] SP Feb, SP [place] [address] [facility] [id number] [address] [place] [address] SP Feb, SP [place] [address] [facility] [id number] [address] [place] [address] SP Feb, SP [place] [address] [place] [id number] [place] [address] SP Feb, Bipolar disorder, unspecifie d F31.9 SP [place] [address] [facility] [id number] [place] [phone] SP Feb, Uncontrolled type 2 diabetes mellitus with hyperglycemia, without SPlong-term current use of insulin E11.65 ; Encounter for immunization Z23 ; Vasovagal syncope R55 and Low back pain M54.5 [place] [address] [address] SP Jan, Bipolar disorder, unspecifie d F31.9 SP [place] [address] [address] SP Jan, [place] [address] [address] SP Jan, Fatigue, unspecified type R5 3.83 ; Nocturnal hypoxia G47.34 ; SP D72.829 ; Other chronic gastritis without hemorrhage K29.50 ; Uncontrolled type 2 diabetes mellitus with hyperglycemia, without long-term current use of insulin E11.65 ; Alternating constipation and diarrhea R19.8 and Chronic obstructive pulmonary disease, unspecified COPD type J44.9 [place] [address] [facility] [id number] [address] [place] [phone] SP Jan, SP [place] [address] [facility] [id number] [address] [place] [id number] SP Jan, Leukocytosis D72.829 [facility] [address] [facility] [id number] [address] [place] [phone] SP Jan, Mood disorder F39 SP [facility] [address] [facility] [id number] [address] [place] [phone] SP Dec, Bipolar disorder, unspecifie d F31.9 SP [facility] [address] [facility] [id number] [address] [place] [phone] SP Dec, [facility] [address] [facility] [id number] [address] [place] [address] SP Dec, Acute gastritis without blee ding K29.00 SP [facility] [address] [facility] [id number] [address] [place] [phone] SP Dec, Leukocytosis D72.829 [facility] [address] [facility] [id number] [address] [place] [id number] SP Dec, [facility] [address] [facility] [id number] [address] [place] [phone] SP Dec, Dental examination Z01.20 [facility] [address] [facility] [id number] [address] [place] [phone] SP Dec, [facility] [address] [facility] [id number] [address] [place], [place] [phone] SP Dec, Leukocytosis D72.829 [facility] [address] [facility] [id number] [address] [place] [address] SP Dec, Uncontrolled type 2 diabetes mellitus with hyperglycemia, without SPlong-term current use of insulin E11.65 [facility] [address] [facility] [id number] [address] [place] [address] SP Nov, Dental examination Z01.20 [facility] [address] [facility] [id number] [address] [place] [phone] SP Nov, SP [facility] [address] [facility] [id number] [address] [place] [phone] SP Nov, Major depressive disorder, r ecurrent episode, moderate F33.1 [place] [address] [facility] [id number] [address] [place] [phone] SP Nov, Leukocytosis D72.829 [facility] [place] [address] [facility] [id number] [address] [place] [phone] SP Nov, Mood disorder F39 [place] [address] [facility] [id number] [address] [place] [address] SP Nov, Other osteoarthritis of spin e, cervical region M47.892 and SP type 2 diabetes mellitus with hyperglycemia, without long-term current use of insulin E11.65 [place] [address] [facility] [id number] [address] [place] [phone] SP Nov, Leukocytosis D72.829 and Sapphire vated serum glucose R73.9 [place] [address] [facility] [id number] [address] [place] [phone] SP October, Elevated serum glucose R73.9 [place] [address] [facility] [id number] [address] [place] [phone] SP October, Mood disorder F39 [place] [address] [facility] [id number] [address] [place] [phone] SP Sep, Major depressive disorder, r ecurrent episode, moderate F33.1 [place] [address] [facility] [id number] [address] [place] [phone] SP Sep, Mood disorder F39 [place] [address] [facility] [id number] [address] [place] [phone] SP Aug, [place] [address] [facility] [id number] [address] [place] [phone] SP Jul, Major depressive disorder, r ecurrent episode, moderate F33.1 [place] [address] [facility] [id number] [address] [place] [phone] SP Jul, Mood disorder F39 SP [facility] [address] [facility] [id number] [address] [place] [phone] SP Jul, SP [facility] [address] [facility] [id number] [address] [place] [phone] SP Jul, History of HI (myocardial in farction) I25.2 ; Hyperlipidemia SP ; Prediabetes R73.09 ; Chronic obstructive pulmonary disease, unspecified COPD type J44.9 and Tobacco use Z72.0 [facility] [address] [facility] [id number] [address] [place] [phone] SP Jun, SP [facility] [address] [facility] [id number] [address] [place] [phone] SP Jun, Mood disorder F39 SP [facility] [address] [facility] [id number] [address] [place] [phone] SP Jun, SP [facility] [address] [place] [id number] [address] [place] [phone] SP May, Major depressive disorder, r ecurrent episode, moderate F33.1 and SP insomnia F51.01 [facility] [address] [facility] [id number] [address] [place] [phone] SP May, Mood disorder F39 SP [facility] [address] [facility] [id number] [address] [place] [phone] SP Apr, SP [facility] [address] [facility] [id number] [address] [place] [phone] SP Apr, Mood disorder F39 SP [facility] [address] [facility] [id number] [address] [place] [phone] SP Apr, SP [facility] [address] [facility] [id number] [address] [place] [phone] SP Apr, SP [facility] [address] [facility] [id number] [address] [place] [phone] SP Apr, Chronic obstructive pulmonar y disease, unspecified COPD type SP and Non-seasonal allergic rhinitis due to other allergic trigger J30.89 [facility] [address] [id number] [address] [place] [phone] SP Apr, Mood disorder F39 SP [facility] [address] [id number] [address] [place] [phone] SP Apr, Major depressive disorder, r ecurrent episode, moderate F33.1 and SP (post-traumatic stress disorder) F43.10 [facility] [address] [id number] [address] [place] [phone] SP Apr, SP [facility] [address] [facility] [id number] [address] [place] [phone] SP Apr, SP [facility] [address] [id number] [address] [place] [phone] SP Apr, Chest pain, unspecified type R07.9 ; Chronic obstructive SP disease, unspecified COPD type J44.9 ; Hyperlipidemia, unspecified hyperlipidemia type E78.5 and Tobacco use Z72.0 [facility] [address] [id number] [address] [place] [phone] SP Mar, Mood disorder F39 SP [facility] [address] [id number] [address] [place] [phone] SP Mar, Mood disorder F39 SP [facility] [address] [facility] [id number] [address] [place] [phone] SP Mar, Other osteoarthritis of spin e, cervical region M47.892 SP [facility] [address] [id number] [address] [place] [phone] SP Mar, Tear of right rotator cuff, unspecified tear extent M75.101 SP [facility] [address] [id number] [address] [place] [phone] SP Mar, SP [facility] [address] [facility] [id number] [address] [place] [phone] SP 04 Oct, 2016 Bipolar II disorder F31.81 SP [facility] [address] [id number] [address] [place] [phone] SP Mar, SP [facility] [address] [facility] [id number] [address] [place] [phone] SP Feb, Impingement syndrome of righ t shoulder M75.41 ; Tear of right SP cuff, unspecified tear extent M75.101 and Loose body in right elbow M24.021 [facility] [address] [facility] [id number] [address] [place] [phone] SP Jan, SP [facility] [address] [id number] [address] [place] [phone] SP Jan, SP [facility] [address] [facility] [id number] [address] [place] [phone] SP Jan, Prediabetes R73.09 ; Other c hronic pain G89.29 and Pain in right SP M25.511 [facility] [address] [facility] [id number] [address] [place] [phone] SP Dec, SP [facility] [address] [facility] [id number] [address] [place] [phone] SP Dec, Heartburn R12 and Chest disc omfort R07.89 SP [facility] [address] 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 [id number] [address] [place] [phone] SP Nov, SP [facility] [address] [facility] [id number] [address] [place] [phone] SP Nov, Leukocytosis D72.829 SP [facility] [address] [facility] [id number] [address] [place] [phone] SP Nov, SP [facility] [address] [facility] [id number] [address] [place] [phone] SP Nov, Enlarged lymph node R59.9 ; Chronic obstructive pulmonary SP unspecified COPD type J44.9 ; Low back pain M54.5 ; Neuropathy G62.9 and Closed nondisplaced fracture of sternal end of right clavicle, sequela S42.017S [place] [address] [facility] [id number] [address] [place] [phone] SP October, SP [facility] [address] [facility] [id number] [address] [place] [phone] SP October, SP [place] [address] [place] [id number] [place] [phone] SP Sep, SP [place] [address] [facility] [id number] [address] [place] [phone] SP Aug, Double vision H53.2 ; Occipi greg headache R51 ; Chronic SP pulmonary disease, unspecified COPD type J44.9 and Gastroesophageal reflux disease, esophagitis presence not specified K21.9 [place] [address] [facility] [id number] [address] [place] [phone] SP Aug, SP [place] [address] [facility] [id number] [address] [place] [phone] SP Jul, Enlarged lymph node in neck R59.0 SP [place] [address] [facility] [id number] [address] [place] [phone] SP Jul, SP [facility] [address] [facility] [id number] [address] [place] [phone] SP Jul, Chronic obstructive pulmonar y disease, unspecified COPD type SP ; Tobacco use Z72.0 ; Leukocytosis D72.829 ; Hyperlipidemia E78.5 and Neck abscess L02.11 [place] [address] [facility] [id number] [address] [place] [phone] SP Jun, Shortness of breath R06.02 SP [place] [address] [place] [id number] [place] [phone] SP May, Leukocytosis D72.829 and Susan rtness of breath R06.02 SP [place] [address] [place] [id number] [place] [phone] SP May, Low back pain M54.5 ; Hyperl ipidemia E78.5 ; Leukocytosis D72.829 SP; Other osteoarthritis of spine, cervical region M47.892 and Shortness of breath R06.02 [facility] [address] [place] [id number] [place] [phone] SP Feb, Chest pain 786.50 ; Tobacco use 305.1 ; Back pain 724.5 and SP 272.4 [place] [address] [phone] SP Jan, SP [place] [address] [phone] SP Jan, Chronic low back pain 724.2 and Degenerative arthritis of SP spine 721.0 [place] [address] [phone] SP Jan, Chronic low back pain 724.2 and Neck pain 723.1 SP [place] [address] [phone] SP Dec, Chronic low back pain 724.2 and Neck pain 723.1 SP [place] [address] [phone] SP Nov, Chest pain 786.50 ; Dyspnea 786.09 ; Tobacco use 305.1 and Back SP 724.5 [place] [address] [address] SP Nov, SP [place] [address] [place] [id number] [place] [phone] SP Nov, Disability examination V68.0 1 and Muscle pain 729.1 SP [facility] [address] [facility] [id number] [address] [place] [phone] SP October, History of HI (myocardial in farction) 412 ; Hyperlipidemia LDL SP < 100 272.4 ; Leukocytosis 288.60 and Glucose intolerance (pre-diabetes) 790.29 [facility] [address] [facility] [id number] [address] [place] [phone] SP October, Chest pain 786.50 ; Chronic low back pain 724.2 ; History of HI SP infarction) 412 and Neuropathy 355.9 [facility] [address] [facility] [id number] [address] [place] [phone] SP October, Chronic low back pain 724.2 ; Chest pain 786.50 ; History of HI SP infarction) 412 and Neuropathy 355.9 IMMUNIZATIONS No Known Immunizations SOCIAL HISTORY Never Assessed REASON FOR VISIT Refill Request PLAN OF CARE VITAL SIGNS MEDICATIONS Medication Instructions Dosage Frequency Start Date End Date Duration S tatus POS Victoza 18 MG/3ML Subcutaneous Once a day 1.8mg 24h Active SP RESULTS No Results PROCEDURES No [...] Surgical History Lipoma removal abdomen- Dr. Ballard 7 SP Surgical History heart cath/chemical stress test 2017 201 8 SP Hospitalization History hernia repair SP Hospitalization History stroke at age 31yr SP Hospitalization History Sleep Study 2016 SP Hospitalization History surgeries SP Hospitalization History cellutlitis ER visit 04/03/18 SP
--- OUTSIDE RECORDS SUMMARY | 2019-04-11 23:11 | XMS REPORT ---
Author Author MARLIN SMITH POS Organization [facility] SP Address [address] [place] [address] SP Care Team Providers Care Bingo Floater Name Role Phone POS MARLIN SMITH Unavailable SP PROBLEMS Type Condition ICD9-CM Code UBK92-CO Code Onset Dates Condition S tatus SNOMED POS Problem Enlarged lymph node R59.9 Active 37850029 POS Problem Hyperlipidemia, unspecified hyperlipidemia type E7 8.5 Active SP Problem Tear of right rotator cuff, unspecified tear extent M75.101 Active SP Problem Other chronic pain G89.29 Active 8 1944815 SP Problem Internal hemorrhoids K64.8 Active 40937503 SP Problem Nocturnal hypoxia G47.34 Active 38 4138531 SP Problem Panlobular emphysema J43.1 Active 1083307 SP Problem Hyperplastic colonic polyp, unspecified part of colon K63.5 Active SP Problem Non-seasonal allergic rhinitis due to other allergic iggy er J30.89 SP 31022749 SP Problem Mood disorder F39 Active 025904 05 SP Problem Bipolar disorder, unspecified F31.9 Active 30557485 SP Problem Uncontrolled type 2 diabetes mellitus with hyperglycemia, without long- SP current use of insulin E11.65 Active 44 6149925 SP Problem GERD with esophagitis K21.0 Active 869249299 SP Problem Other osteoarthritis of spine, cervical region M47 .892 Active SP Problem Hiatal hernia K44.9 Active 690010 09 SP Problem External hemorrhoids K64.4 Active 52475188 SP Problem Leukocytosis D72.829 Active 7161900 06 SP Problem Hyperlipidemia E78.5 Active 41363 004 SP Problem History of MA (myocardial infarction) I25.2 Active 702152079 SP Problem Neuropathy G62.9 Active 337699232 SP Problem Other chronic gastritis without hemorrhage K29.50 Active 7320678 SP Problem Low back pain M54.5 Active 201156 005 SP Problem Tobacco use Z72.0 Active 23827028 0 SP ALLERGIES No Information ENCOUNTERS Encounter Location Date Diagnosis POS [facility] [address] [facility] [id number] [address] [place] [phone] SP Jun, SP [facility] [address] [facility] [id number] [address] [place] [phone] SP May, SP [facility] [address] [facility] [id number] [address] [place] [phone] SP Apr, Uncontrolled type 2 diabetes mellitus with hyperglycemia, without SPlong-term current use of insulin E11.65 [facility] [address] [facility] [id number] [address] [place] [phone] SP Apr, Uncontrolled type 2 diabetes mellitus with hyperglycemia, without SPlong-term current use of insulin E11.65 [facility] [address] [facility] [id number] [address] [place] [phone] SP Apr, Preoperative clearance Z01.8 18 and Uncontrolled type 2 diabetes SP with hyperglycemia, without long-term current use of insulin E11.65 [facility] [address] [facility] [id number] [address] [place] [phone] SP Apr, SP [facility] [address] [facility] [id number] [address] [place] [phone] SP Apr, SP [facility] [address] [facility] [id number] [address] [place] [phone] SP Apr, SP [facility] [address] [facility] [id number] [address] [place] [phone] SP Apr, [facility] [address] [facility] [id number] [address] [place] [address] SP Mar, Herpes zoster without compli cation B02.9 SP [facility] [address] [facility] [id number] [address] [place] [phone] SP Mar, SP [facility] [address] [facility] [id number] [address] [place] [phone] SP Mar, SP [place] [id number] [id number] [address] [place] [phone] SP Mar, Uncontrolled type 2 diabetes mellitus with hyperglycemia, without SPlong-term current use of insulin E11.65 [facility] [address] [id number] [address] [place] [address] SP Mar, Fall (on) (from) other stair s and steps, initial encounter SP ; Lumbar contusion, initial encounter S30.0XXA ; Elbow pain, right M25.521 and Thoracic spine pain M54.6 [facility] [address] [id number] [address] [place] [phone] SP Mar, Mood disorder F39 SP [facility] [address] [facility] [id number] [address] [place] [phone] SP Mar, SP [facility] [address] [facility] [id number] [address] [place] [phone] SP Mar, Leukocytosis D72.829 SP [facility] [address] [facility] [id number] [address] [place] [phone] SP Mar, SP [facility] [address] [facility] [id number] [address] [place] [phone] SP Mar, Other chronic gastritis with out hemorrhage K29.50 SP [facility] [address] [facility] [id number] [address] [place] [phone] SP Mar, Uncontrolled type 2 diabetes mellitus with hyperglycemia, without SPlong-term current use of insulin E11.65 ; Low back pain M54.5 ; Other osteoarthritis of spine, cervical region M47.892 ; Panlobular emphysema J43.1 ; Leukocytosis D72.829 and Lumbar back pain with radiculopathy affecting lower extremity M54.16 [place] [address] [facility] [id number] [address] [place] [phone] SP Feb, SP [facility] [address] [facility] [id number] [address] [place] [phone] SP Feb, SP [facility] [address] [id number] [address] [place] [phone] SP Feb, Uncontrolled type 2 diabetes mellitus with hyperglycemia, without SPlong-term current use of insulin E11.65 [facility] [address] [id number] [address] [place] [phone] SP Feb, Mood disorder F39 SP [facility] [address] [id number] [address] [place] [phone] SP Jan, SP [facility] [address] [id number] [address] [place] [phone] SP Jan, Mood disorder F39 SP [facility] [address] [id number] [address] [place] [phone] SP Jan, SP [facility] [address] [facility] [id number] [address] [place] [phone] SP Dec, Bipolar disorder, unspecifie d F31.9 SP [facility] [address] [id number] [address] [place] [phone] SP Dec, SP [facility] [address] [id number] [address] [place] [phone] SP Dec, SP [facility] [address] [facility] [id number] [address] [place] [phone] SP Dec, SP [facility] [address] [facility] [id number] [address] [place] [phone] SP Dec, Mood disorder F39 SP [facility] [address] [id number] [address] [place] [phone] SP Nov, Bipolar disorder, unspecifie d F31.9 SP [facility] [address] [id number] [address] [place] [phone] SP Nov, SP [facility] [address] [facility] [id number] [address] [place] [phone] SP Nov, Pain in left knee M25.562 ; Other chronic pain G89.29 ; SP E78.5 ; Leukocytosis D72.829 ; Other osteoarthritis of spine, cervical region M47.892 ; Tobacco use Z72.0 and Uncontrolled type 2 diabetes mellitus with hyperglycemia, without long-term current use of insulin E11.65 [facility] [address] [id number] [address] [place] [phone] SP Nov, SP [facility] [address] [facility] [id number] [address] [place] [phone] SP Nov, SP [facility] [address] [facility] [id number] [address] [place] [phone] SP October, SP [facility] [address] [facility] [id number] [address] [place] [phone] SP October, Low back pain M54.5 SP [facility] [address] [facility] [id number] [address] [place] [phone] SP Sep, SP [facility] [address] [facility] [id number] [address] [place] [phone] SP Sep, SP [facility] [address] [facility] [id number] [address] [place] [phone] SP Sep, Leukocytosis D72.829 SP [facility] [address] [facility] [id number] [address] [place] [phone] SP Sep, SP [facility] [address] [facility] [id number] [address] [place] [phone] SP Sep, SP [facility] [address] [facility] [id number] [address] [place] [phone] SP Sep, SP [facility] [address] [facility] [id number] [address] [place] [phone] SP Aug, Low back pain M54.5 SP [facility] [address] [facility] [id number] [address] [place] [phone] SP Aug, Bipolar disorder, unspecifie d F31.9 SP [facility] [address] [facility] [id number] [address] [place] [phone] SP Aug, SP [facility] [address] [facility] [id number] [address] [place] [phone] SP Aug, SP [facility] [address] [facility] [id number] [address] [place] [phone] SP Aug, Uncontrolled type 2 diabetes mellitus with hyperglycemia, without SPlong-term current use of insulin E11.65 ; Non-healing surgical wound, initial encounter T81.89XA ; Cellulitis of abdominal wall L03.311 ; Hyperlipidemia E78.5 ; Chronic obstructive pulmonary disease, unspecified COPD type J44.9 and Tobacco use Z72.0 [facility] [address] [facility] [id number] [address] [place] [phone] SP Aug, SP [place] [address] [facility] [id number] [address] [place] [phone] SP Jul, SP [facility] [address] [facility] [id number] [address] [place] [phone] SP Jul, SP [facility] [address] [facility] [id number] [address] [place] [phone] SP Jul, Type 2 diabetes mellitus wit h diabetic neuropathy, unspecified SP term insulin use status E11.40 [facility] [address] [facility] [id number] [address] [place] [phone] SP Jun, Bipolar disorder, unspecifie d F31.9 SP [facility] [address] [facility] [id number] [address] [place] [phone] SP Jun, SP [facility] [address] [facility] [id number] [address] [place] [phone] SP Jun, Bipolar disorder, unspecifie d F31.9 SP [facility] [address] [facility] [id number] [address] [place] [phone] SP Jun, Mood disorder F39 SP [facility] [address] [facility] [id number] [address] [place] [phone] SP Jun, SP [facility] [address] [facility] [id number] [address] [place] [phone] SP May, Fissure in skin of foot R23. 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 [id number] [address] [place] [phone] SP May, Mood disorder F39 SP [place] [address] [facility] [id number] [address] [place] [phone] SP Apr, SP [place] [address] [facility] [id number] [address] [place] [phone] SP Apr, Cough R05 and Tobacco use Z7 2.0 SP [place] [address] [facility] [id number] [address] [place] [phone] SP Apr, Cough R05 and Tobacco use Z7 2.0 SP [place] [address] [facility] [id number] [address] [place] [phone] SP Apr, Mood disorder F39 SP [place] [address] [facility] [id number] [address] [place] [phone] SP Apr, Low back pain M54.5 SP [place] [address] [facility] [id number] [address] [place] [phone] SP Apr, Uncontrolled type 2 diabetes mellitus with hyperglycemia, without SPlong-term current use of insulin E11.65 [place] [address] [facility] [id number] [address] [place] [phone] SP Apr, Uncontrolled type 2 diabetes mellitus with hyperglycemia, without SPlong-term current use of insulin E11.65 [place] [address] [facility] [id number] [address] [place] [phone] SP Mar, Bipolar disorder, unspecifie d F31.9 SP [place] [address] [id number] [address] [place] [phone] SP Mar, SP [facility] [address] [facility] [id number] [address] [place] [phone] SP Mar, Bipolar disorder, unspecifie d F31.9 SP [facility] [address] [facility] [id number] [address] [place] [phone] SP Mar, Mood disorder F39 SP [facility] [address] [facility] [id number] [address] [place] [phone] SP Feb, SP [facility] [address] [facility] [id number] [address] [place] [phone] SP Feb, [facility] [address] [facility] [id number] [address] [place] [phone] SP Feb, [facility] [address] [facility] [id number] [address] [place] [phone] SP Feb, Bipolar disorder, unspecifie d F31.9 SP [facility] [address] [facility] [id number] [address] [place] [phone] SP Feb, Uncontrolled type 2 diabetes mellitus with hyperglycemia, without SPlong-term current use of insulin E11.65 ; Encounter for immunization Z23 ; Vasovagal syncope R55 and Low back pain M54.5 [facility] [address] [facility] [id number] [address] [place] [phone] SP Jan, Bipolar disorder, unspecifie d F31.9 SP [facility] [address] [facility] [id number] [address] [place] [phone] SP Jan, SP [facility] [address] [facility] [id number] [address] [place] [phone] SP Jan, Fatigue, unspecified type R5 3.83 ; Nocturnal hypoxia G47.34 ; SP D72.829 ; Other chronic gastritis without hemorrhage K29.50 ; Uncontrolled type 2 diabetes mellitus with hyperglycemia, without long-term current use of insulin E11.65 ; Alternating constipation and diarrhea R19.8 and Chronic obstructive pulmonary disease, unspecified COPD type J44.9 [facility] [address] [facility] [id number] [address] [place] [phone] SP Jan, SP [facility] [address] [facility] [id number] [address] [place] [phone] SP Jan, Leukocytosis D72.829 [place] [address] [place] [id number] [address] [place] [phone] SP Jan, Mood disorder F39 SP [facility] [address] [facility] [id number] [address] [place] [phone] SP Dec, Bipolar disorder, unspecifie d F31.9 SP [place] [address] [facility] [id number] [address] [place] [phone] SP Dec, [facility] [address] [facility] [id number] [address] [place] [address] SP Dec, Acute gastritis without blee ding K29.00 SP [facility] [address] [facility] [id number] [address] [place] [phone] SP Dec, Leukocytosis D72.829 [place] [address] [facility] [id number] [address] [place] [phone] SP Dec, [place] [address] [address] [place] [id number] [address] [place] [phone] SP Dec, Dental examination Z01.20 SP [facility] [address] [facility] [id number] [address] [place] [phone] SP Dec, [facility] [address] [facility] [id number] [address] [place] [phone] SP Dec, Leukocytosis D72.829 [facility] [address] [facility] [id number] [address] [place] [phone] SP Dec, Uncontrolled type 2 diabetes mellitus with hyperglycemia, without SPlong-term current use of insulin E11.65 [place] [address] [address] [place] [id number] [address] [place] [phone] SP Nov, Dental examination Z01.20 [facility] [address] [place] [id number] [address] [place] [phone] SP Nov, [facility] [address] [facility] [id number] [address] [place] [phone] SP Nov, Major depressive disorder, r ecurrent episode, moderate F33.1 [place] [address] [address] [place] [id number] [address] [place] [phone] SP Nov, Leukocytosis D72.829 [place] [address] [address] [place] [id number] [address] [place] [phone] SP Nov, Mood disorder F39 [place] [address] [address] [place] [id number] [address] [place] [phone] SP Nov, Other osteoarthritis of spin e, cervical region M47.892 and SP type 2 diabetes mellitus with hyperglycemia, without long-term current use of insulin E11.65 [place] [address] [address] [place] [id number] [address] [place] [phone] SP Nov, Leukocytosis D72.829 and Sapphire vated serum glucose R73.9 [place] [address] [address] [place] [id number] [address] [place] [phone] SP October, Elevated serum glucose R73.9 [place] [address] [address] [place] [id number] [address] [place] [phone] SP October, Mood disorder F39 [place] [address] [address] [place] [id number] [address] [place] [id number] SP Sep, Major depressive disorder, r ecurrent episode, moderate F33.1 [place] [address] [address] [place] [id number] [address] [place] [phone] SP Sep, Mood disorder F39 [place] [address] [address] [place] [id number] [address] [place] [phone] SP Aug, SP [facility] [address] [facility] [id number] [address] [place] [phone] SP Jul, Major depressive disorder, r ecurrent episode, moderate F33.1 SP [facility] [address] [facility] [id number] [address] [place] [phone] SP Jul, Mood disorder F39 SP [facility] [address] [facility] [id number] [address] [place] [phone] SP Jul, SP [facility] [address] [facility] [id number] [address] [place] [phone] SP Jul, History of MA (myocardial in farction) I25.2 ; Hyperlipidemia SP ; Prediabetes R73.09 ; Chronic obstructive pulmonary disease, unspecified COPD type J44.9 and Tobacco use Z72.0 [facility] [address] [facility] [id number] [address] [place] [phone] SP Jun, SP [facility] [address] [facility] [id number] [address] [place] [phone] SP Jun, Mood disorder F39 SP [facility] [address] [facility] [id number] [address] [place] [phone] SP Jun, SP [facility] [address] [facility] [id number] [address] [place] [phone] SP May, Major depressive disorder, r ecurrent episode, moderate F33.1 and SP insomnia F51.01 [facility] [address] [facility] [id number] [address] [place] [phone] SP May, Mood disorder F39 SP [facility] [address] [facility] [id number] [address] [place] [phone] SP Apr, SP [facility] [address] [facility] [id number] [address] [place] [phone] SP Apr, Mood disorder F39 SP [facility] [address] [facility] [id number] [address] [place] [phone] SP Apr, SP [facility] [address] [facility] [id number] [address] [place] [phone] SP Apr, SP [facility] [address] [facility] [id number] [address] [place] [phone] SP Apr, Chronic obstructive pulmonar y disease, unspecified COPD type SP and Non-seasonal allergic rhinitis due to other allergic trigger J30.89 [facility] [address] [facility] [id number] [address] [place] [phone] SP Apr, Mood disorder F39 SP [place] [address] [facility] [id number] [address] [place] [phone] SP Apr, Major depressive disorder, r ecurrent episode, moderate F33.1 and SP (post-traumatic stress disorder) F43.10 [place] [address] [address] [place] [id number] [address] [place] [phone] SP Apr, SP [place] [address] [address] [place] [id number] [address] [place], [place] [phone] SP Apr, SP [place] [address] [address] [place] [id number] [address] [place] [phone] SP Apr, Chest pain, unspecified type R07.9 ; Chronic obstructive SP disease, unspecified COPD type J44.9 ; Hyperlipidemia, unspecified hyperlipidemia type E78.5 and Tobacco use Z72.0 [place] [address] [address] [place] [id number] [address] [place] [phone] SP Mar, Mood disorder F39 SP [place] [id number] N [facility] [id number] [address] [place] [phone] SP Mar, Mood disorder F39 SP [place] [address] [place] [id number] [address] [place] [phone] SP Mar, Other osteoarthritis of spin e, cervical region M47.892 SP [facility] [address] [place] [id number] [address] [place] [phone] SP Mar, Tear of right rotator cuff, unspecified tear extent M75.101 SP [facility] [address] [id number] [address] [place] [phone] SP Mar, SP [facility] [address] [id number] [address] [place] [phone] SP Mar, Bipolar II disorder F31.81 SP [facility] [address] [id number] [address] [place] [phone] SP Mar, SP [facility] [address] [id number] [address] [place] [phone] SP Feb, Impingement syndrome of righ t shoulder M75.41 ; Tear of right SP cuff, unspecified tear extent M75.101 and Loose body in right elbow M24.021 [facility] [address] [id number] [address] [place] [phone] SP Jan, SP [facility] [address] [id number] [address] [place] [phone] SP Jan, SP [facility] [address] [id number] [address] [place] [phone] SP Jan, Prediabetes R73.09 ; Other c hronic pain G89.29 and Pain in right SP M25.511 [facility] [address] [id number] [address] [place] [phone] SP Dec, SP [facility] [address] [id number] [address] [place] [phone] SP Dec, Heartburn R12 and Chest disc omfort R07.89 SP [facility] [address] [id number] [address] [place] [phone] SP Dec, Impingement syndrome of righ t shoulder M75.41 and 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 [id number] [address] [place] [phone] SP Nov, SP [facility] [address] [facility] [id number] [address] [place] [phone] SP Nov, Enlarged lymph node R59.9 ; Chronic obstructive pulmonary SP unspecified COPD type J44.9 ; Low back pain M54.5 ; Neuropathy G62.9 and Closed nondisplaced fracture of sternal end of right clavicle, sequela S42.017S [facility] [address] [facility] [id number] [address] [place] [phone] SP October, SP [facility] [address] [facility] [id number] [address] [place] [phone] SP October, SP [facility] [address] [facility] [id number] [address] [place] [phone] SP Sep, SP [facility] [address] [facility] [id number] [address] [place] [phone] SP Aug, Double vision H53.2 ; Occipi greg headache R51 ; Chronic SP pulmonary disease, unspecified COPD type J44.9 and Gastroesophageal reflux disease, esophagitis presence not specified K21.9 [facility] [address] [facility] [id number] [address] [place] [phone] SP Aug, SP [facility] [address] [facility] [id number] [address] [place] [phone] SP Jul, Enlarged lymph node in neck R59.0 SP [facility] [address] [facility] [id number] [address] [place] [phone] SP Jul, SP [facility] [address] [facility] [id number] [address] [place] [phone] SP Jul, Chronic obstructive pulmonar y disease, unspecified COPD type SP ; Tobacco use Z72.0 ; Leukocytosis D72.829 ; Hyperlipidemia E78.5 and Neck abscess L02.11 [place] [address] [place] [id number] [place] [phone] SP Jun, Shortness of breath R06.02 SP [place] [address] [place] [id number] [place] [phone] SP May, Leukocytosis D72.829 and Susan rtness of breath R06.02 SP [place] [address] [facility] [id number] [place] [phone] SP May, Low back pain M54.5 ; Hyperl ipidemia E78.5 ; Leukocytosis D72.829 SP; Other osteoarthritis of spine, cervical region M47.892 and Shortness of breath R06.02 [place] [address] [id number] SP Feb, Chest pain 786.50 ; Tobacco use 305.1 ; Back pain 724.5 and SP 272.4 [place] [address] [id number] SP Jan, SP [place] [address] [place] [id number] [place] [phone] SP Jan, Chronic low back pain 724.2 and Degenerative arthritis of SP spine 721.0 [place] [address] [place] [id number] [place] [phone] SP Jan, Chronic low back pain 724.2 and Neck pain 723.1 SP [place] [address] [place] [id number] [place] [phone] SP Dec, Chronic low back pain 724.2 and Neck pain 723.1 SP [place] [address] [facility] [id number] [place] [phone] SP Nov, Chest pain 786.50 ; Dyspnea 786.09 ; Tobacco use 305.1 and Back SP 724.5 [place] [address] [facility] [id number] [address] [place] [phone] SP Nov, SP [place] [address] [place] [id number] [address] [place] [phone] SP Nov, Disability examination V68.0 1 and Muscle pain 729.[address] [phone] SP October, History of MA (myocardial in farction) 412 ; Hyperlipidemia LDL SP < 100 272.4 ; Leukocytosis 288.60 and Glucose intolerance (pre-diabetes) 790.[address] [phone] SP October, Chest pain 786.50 ; Chronic low back pain 724.2 ; History of MA SP infarction) 412 and Neuropathy 355.9 [place] [address] [address] [place] [id number] [address] [place] [phone] October, Chronic low back pain 724.2 ; Chest pain 786.50 ; History of MA SP infarction) 412 and Neuropathy 355.9 IMMUNIZATIONS No Known Immunizations SOCIAL HISTORY Never Assessed REASON FOR VISIT med refill PLAN OF CARE VITAL SIGNS MEDICATIONS Medication Instructions Dosage Frequency Start Date End Date Duration S tatus POS Trazodone HCl 150 MG Orally Once a day 1 tablet at bedtime 24h Active SP RESULTS No Results PROCEDURES [...]
--- OUTSIDE RECORDS SUMMARY | 2019-04-11 23:12 | XMS REPORT ---
Author Author KINJALDORIS POS Organization [facility] SP Address [address] [place] [address] SP Care Team Providers Care Licensed Electrician Name Role Phone POS DORIS LAYTON Unavailable SP PROBLEMS Type Condition ICD9-CM Code LBU59-DS Code Onset Dates Condition S tatus SNOMED POS Problem Enlarged lymph node R59.9 Active [id number] POS Problem Hyperlipidemia, unspecified hyperlipidemia type E7 8.5 Active SP Problem Tear of right rotator cuff, unspecified tear extent M75.101 Active SP Problem Other chronic pain G89.29 Active 8 8294715 SP Problem Internal hemorrhoids K64.8 Active 86756509 SP Problem Nocturnal hypoxia G47.34 Active 38 5996137 SP Problem Panlobular emphysema J43.1 Active 8222393 SP Problem Hyperplastic colonic polyp, unspecified part of colon K63.5 Active SP Problem Non-seasonal allergic rhinitis due to other allergic iggy er J30.89 SP [id number] SP Problem Mood disorder F39 Active 588117 05 SP Problem Bipolar disorder, unspecified F31.9 Active 92785713 SP Problem Uncontrolled type 2 diabetes mellitus with hyperglycemia, without long- SP current use of insulin E11.65 Active 44 7222793 SP Problem GERD with esophagitis K21.0 Active 389885547 SP Problem Other osteoarthritis of spine, cervical region M47 .892 Active SP Problem Hiatal hernia K44.9 Active 688536 09 SP Problem External hemorrhoids K64.4 Active 24903436 SP Problem Leukocytosis D72.829 Active 6325367 06 SP Problem Hyperlipidemia E78.5 Active 73861 004 SP Problem History of RI (myocardial infarction) I25.2 Active 806992168 SP Problem Neuropathy G62.9 Active 754680528 SP Problem Other chronic gastritis without hemorrhage K29.50 Active 3428213 SP Problem Low back pain M54.5 Active 936915 005 SP Problem Tobacco use Z72.0 Active 49546790 0 SP ALLERGIES No Information ENCOUNTERS Encounter Location Date Diagnosis POS [facility] [address] [facility] [id number] [address] [place] [phone] SP Jun, SP [facility] [address] [facility] [id number] [address] [place] [phone] SP Apr, Uncontrolled type 2 diabetes mellitus with hyperglycemia, without SPlong-term current use of insulin E11.65 [facility] [address] [facility] [id number] [address] [place] [phone] SP Apr, Uncontrolled type 2 diabetes mellitus with hyperglycemia, without SPlong-term current use of insulin E11.65 [facility] [address] [facility] [id number] [address] [place] [phone] SP Apr, Preoperative clearance Z01.8 18 and Uncontrolled type 2 diabetes SP with hyperglycemia, without long-term current use of insulin E11.65 [facility] [address] [facility] [id number] [address] [place] [phone] SP Apr, SP [facility] [address] [facility] [id number] [address] [place] [phone] SP Apr, SP [facility] [address] [facility] [id number] [place] [phone] SP Apr, SP [facility] [address] [facility] [id number] [place] [phone] SP Apr, SP [facility] [address] [facility] [id number] [address] [place] [address] SP Mar, Herpes zoster without compli cation B02.9 SP [facility] [address] [facility] [id number] [address] [place] [phone] SP Mar, SP [facility] [address] [facility] [id number] [address] [place] [phone] SP Mar, SP [facility] [address] [facility] [id number] [address] [place] [phone] SP Mar, Uncontrolled type 2 diabetes mellitus with hyperglycemia, without SPlong-term current use of insulin E11.65 [facility] [address] [id number] [address] [place] [address] SP Mar, Fall (on) (from) other stair s and steps, initial encounter SP ; Lumbar contusion, initial encounter S30.0XXA ; Elbow pain, right M25.521 and Thoracic spine pain M54.6 [facility] [address] [id number] [address] [place] [phone] SP Mar, Mood disorder F39 SP [facility] [address] [id number] [address] [place] [phone] SP Mar, SP [facility] [address] [facility] [id number] [address] [place] [phone] SP Mar, Leukocytosis D72.829 SP [facility] [address] [facility] [id number] [address] [place] [phone] SP Mar, SP [facility] [address] [facility] [id number] [address] [place] [phone] SP Mar, Other chronic gastritis with out hemorrhage K29.50 SP [facility] [address] [id number] [address] [place] [phone] SP Mar, Uncontrolled type 2 diabetes mellitus with hyperglycemia, without SPlong-term current use of insulin E11.65 ; Low back pain M54.5 ; Other osteoarthritis of spine, cervical region M47.892 ; Panlobular emphysema J43.1 ; Leukocytosis D72.829 and Lumbar back pain with radiculopathy affecting lower extremity M54.16 [facility] [address] [id number] [address] [place] [phone] SP Feb, SP [facility] [address] [id number] [address] [place] [phone] SP Feb, SP [facility] [address] [facility] [id number] [address] [place] [phone] SP Feb, Uncontrolled type 2 diabetes mellitus with hyperglycemia, without SPlong-term current use of insulin E11.65 [facility] [address] [id number] [address] [place] [phone] SP Feb, Mood disorder F39 SP [facility] [address] [id number] [address] [place] [phone] SP Jan, SP [facility] [address] [id number] [address] [place] [phone] SP Jan, Mood disorder F39 SP [facility] [address] [id number] [address] [place] [phone] SP Jan, SP [facility] [address] [id number] [address] [place] [phone] SP Dec, Bipolar disorder, unspecifie d F31.9 SP [facility] [address] [facility] [id number] [address] [place] [phone] SP Dec, SP [facility] [address] [id number] [address] [place] [phone] SP Dec, SP [facility] [address] [id number] [address] [place] [phone] SP Dec, SP [facility] [address] [id number] [address] [place] [phone] SP Dec, Mood disorder F39 SP [facility] [address] [facility] [id number] [address] [place] [phone] SP Nov, Bipolar disorder, unspecifie d F31.9 SP [facility] [address] [id number] [address] [place] [phone] SP Nov, SP [facility] [address] [facility] [id number] [address] [place] [phone] SP Nov, Pain in left knee M25.562 ; Other chronic pain G89.29 ; SP E78.5 ; Leukocytosis D72.829 ; Other osteoarthritis of spine, cervical region M47.892 ; Tobacco use Z72.0 and Uncontrolled type 2 diabetes mellitus with hyperglycemia, without long-term current use of insulin E11.65 [facility] [address] [id number] [address] [place] [phone] SP Nov, SP [facility] [address] [facility] [id number] [address] [place] [phone] SP Nov, SP [facility] [address] [facility] [id number] [address] [place] [phone] SP October, SP [facility] [address] [facility] [id number] [address] [place] [phone] SP October, Low back pain M54.5 SP [facility] [address] [facility] [id number] [address] [place] [phone] SP Sep, SP [facility] [address] [facility] [id number] [address] [place] [phone] SP Sep, SP [facility] [address] [facility] [id number] [address] [place] [phone] SP Sep, Leukocytosis D72.829 SP [facility] [address] [facility] [id number] [address] [place] [phone] SP Sep, SP [facility] [address] [facility] [id number] [address] [place] [phone] SP Sep, SP [facility] [address] [facility] [id number] [address] [place] [phone] SP Sep, SP [facility] [address] [facility] [id number] [address] [place] [phone] SP Aug, Low back pain M54.5 SP [facility] [address] [facility] [id number] [address] [place] [phone] SP Aug, Bipolar disorder, unspecifie d F31.9 SP [facility] [address] [facility] [id number] [address] [place] [phone] SP Aug, SP [facility] [address] [facility] [id number] [address] [place] [phone] SP Aug, SP [facility] [address] [facility] [id number] [address] [place] [phone] SP Aug, Uncontrolled type 2 diabetes mellitus with hyperglycemia, without SPlong-term current use of insulin E11.65 ; Non-healing surgical wound, initial encounter T81.89XA ; Cellulitis of abdominal wall L03.311 ; Hyperlipidemia E78.5 ; Chronic obstructive pulmonary disease, unspecified COPD type J44.9 and Tobacco use Z72.0 [facility] [address] [facility] [id number] [address] [place] [phone] SP Aug, SP [place] [address] [place] [id number] [address] [place] [phone] SP Jul, SP [place] [address] [place] [id number] [address] [place] [phone] SP Jul, SP [facility] [address] [place] [id number] [address] [place] [phone] SP Jul, Type 2 diabetes mellitus wit h diabetic neuropathy, unspecified SP term insulin use status E11.40 [place] [address] [place] [id number] [address] [place] [phone] SP Jun, Bipolar disorder, unspecifie d F31.9 SP [place] [address] [facility] [id number] [address] [place] [phone] SP Jun, SP [facility] [address] [place] [id number] [address] [place] [phone] SP Jun, Bipolar disorder, unspecifie d F31.9 SP [place] [address] [place] [id number] [address] [place] [phone] SP Jun, Mood disorder F39 SP [facility] [address] [place] [id number] [address] [place] [phone] SP Jun, SP [facility] [address] [place] [id number] [address] [place] [phone] SP May, Fissure in skin of foot R23. 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 [id number] [address] [place] [phone] SP May, Mood disorder F39 SP [facility] [address] [facility] [id number] [address] [place] [phone] SP Apr, SP [place] [address] [facility] [id number] [address] [place] [phone] SP Apr, Cough R05 and Tobacco use Z7 2.0 SP [place] [address] [place] [id number] [address] [place] [phone] SP Apr, Cough R05 and Tobacco use Z7 2.0 SP [place] [address] [place] [id number] [address] [place] [phone] SP Apr, Mood disorder F39 SP [place] [address] [place] [id number] [address] [place] [phone] SP Apr, Low back pain M54.5 SP [place] [address] [place] [id number] [address] [place] [phone] SP Apr, Uncontrolled type 2 diabetes mellitus with hyperglycemia, without SPlong-term current use of insulin E11.65 [place] [address] [facility] [id number] [address] [place] [phone] SP Apr, Uncontrolled type 2 diabetes mellitus with hyperglycemia, without SPlong-term current use of insulin E11.65 [place] [address] [place] [id number] [address] [place] [phone] SP Mar, Bipolar disorder, unspecifie d F31.9 SP [place] [address] [facility] [id number] [address] [place] [phone] SP Mar, SP [place] [address] [place] [id number] [address] [place] [phone] SP Mar, Bipolar disorder, unspecifie d F31.9 SP [place] [address] [facility] [id number] [address] [place] [phone] SP Mar, Mood disorder F39 SP [facility] [address] [facility] [id number] [address] [place] [phone] SP Feb, SP [facility] [address] [place] [id number] [place] [phone] SP Feb, SP [facility] [address] [place] [id number] [address] [place] [phone] SP Feb, [place] [address] [place] [id number] [place] [phone] SP Feb, Bipolar disorder, unspecifie d F31.9 SP [place] [address] [phone] SP Feb, Uncontrolled type 2 diabetes mellitus with hyperglycemia, without SPlong-term current use of insulin E11.65 ; Encounter for immunization Z23 ; Vasovagal syncope R55 and Low back pain M54.5 [place] [address] [phone] SP Jan, Bipolar disorder, unspecifie d F31.9 SP [place] [address] [phone] SP Jan, SP [place] [address] [address] SP Jan, Fatigue, unspecified type R5 3.83 ; Nocturnal hypoxia G47.34 ; SP D72.829 ; Other chronic gastritis without hemorrhage K29.50 ; Uncontrolled type 2 diabetes mellitus with hyperglycemia, without long-term current use of insulin E11.65 ; Alternating constipation and diarrhea R19.8 and Chronic obstructive pulmonary disease, unspecified COPD type J44.9 [place] [address] [phone] SP Jan, SP [facility] [address] [facility] [id number] [address] [place] [phone] SP Jan, Leukocytosis D72.829 SP [facility] [address] [facility] [id number] [address] [place] [phone] SP Jan, Mood disorder F39 SP [facility] [address] [facility] [id number] [address] [place] [phone] SP Dec, Bipolar disorder, unspecifie d F31.9 SP [facility] [address] [facility] [id number] [address] [place] [phone] SP Dec, [facility] [address] [facility] [id number] [address] [place] [address] SP Dec, Acute gastritis without blee ding K29.00 SP [facility] [address] [facility] [id number] [address] [place] [phone] SP Dec, Leukocytosis D72.829 SP [facility] [address] [facility] [id number] [address] [place] [phone] SP Dec, [facility] [address] [facility] [id number] [address] [place] [phone] SP Dec, Dental examination Z01.20 [facility] [address] [facility] [id number] [address] [place] [phone] SP Dec, SP [facility] [address] [facility] [id number] [address] [place] [phone] SP Dec, Leukocytosis D72.829 [facility] [address] [facility] [id number] [address] [place] [phone] SP Dec, Uncontrolled type 2 diabetes mellitus with hyperglycemia, without SPlong-term current use of insulin E11.65 [facility] [address] [facility] [id number] [address] [place] [phone] SP Nov, Dental examination Z01.20 [facility] [address] [id number] [address] [place] [phone] SP Nov, [facility] [address] [facility] [id number] [address] [place] [phone] SP Nov, Major depressive disorder, r ecurrent episode, moderate F33.1 [place] [id number] [facility] [id number] [address] [place] [phone] SP Nov, Leukocytosis D72.829 SP [place] [address] [facility] [id number] [address] [place] [phone] SP Nov, Mood disorder F39 [place] [address] [place] [id number] [address] [place] [phone] SP Nov, Other osteoarthritis of spin e, cervical region M47.892 and SP type 2 diabetes mellitus with hyperglycemia, without long-term current use of insulin E11.65 [place] [address] [place] [id number] [address] [place] [phone] SP Nov, Leukocytosis D72.829 and Sapphire vated serum glucose R73.9 [place] [address] [facility] [id number] [address] [place] [phone] SP October, Elevated serum glucose R73.9 [place] [address] [facility] [id number] [address] [place] [phone] SP October, Mood disorder F39 [place] [address] [facility] [id number] [address] [place] [phone] SP Sep, Major depressive disorder, r ecurrent episode, moderate F33.1 [facility] [address] [facility] [id number] [address] [place] [phone] SP Sep, Mood disorder F39 [place] [address] [facility] [id number] [address] [place] [phone] SP Aug, [place] [address] [facility] [id number] [address] [place] [phone] SP Jul, Major depressive disorder, r ecurrent episode, moderate F33.1 SP [facility] [address] [facility] [id number] [address] [place] [phone] SP Jul, Mood disorder F39 SP [facility] [address] [facility] [id number] [address] [place] [phone] SP Jul, SP [facility] [address] [facility] [id number] [address] [place] [phone] SP Jul, History of RI (myocardial in farction) I25.2 ; Hyperlipidemia SP ; Prediabetes R73.09 ; Chronic obstructive pulmonary disease, unspecified COPD type J44.9 and Tobacco use Z72.0 [facility] [address] [facility] [id number] [address] [place] [phone] SP Jun, SP [facility] [address] [facility] [id number] [address] [place] [phone] SP Jun, Mood disorder F39 SP [facility] [address] [facility] [id number] [address] [place] [phone] SP Jun, SP [facility] [address] [facility] [id number] [address] [place] [phone] SP May, Major depressive disorder, r ecurrent episode, moderate F33.1 and SP insomnia F51.01 [facility] [address] [facility] [id number] [address] [place] [phone] SP May, Mood disorder F39 SP [facility] [address] [facility] [id number] [address] [place] [phone] SP Apr, SP [facility] [address] [facility] [id number] [address] [place] [phone] SP Apr, Mood disorder F39 SP [facility] [address] [facility] [id number] [address] [place] [phone] SP Apr, SP [facility] [address] [facility] [id number] [address] [place] [phone] SP Apr, SP [facility] [address] [facility] [id number] [place] [phone] SP Apr, Chronic obstructive pulmonar y disease, unspecified COPD type SP and Non-seasonal allergic rhinitis due to other allergic trigger J30.89 [facility] [address] [facility] [id number] [address] [place] [phone] SP Apr, Mood disorder F39 SP [facility] [address] [facility] [id number] [address] [place] [phone] SP Apr, Major depressive disorder, r ecurrent episode, moderate F33.1 and SP (post-traumatic stress disorder) F43.10 [place] [address] [address] [facility] [id number] [address] [place] [phone] SP Apr, SP [place] [address] [address] [facility] [id number] [address] [place] [phone] SP Apr, SP [place] [address] [address] [facility] [id number] [address] [place] [phone] SP Apr, Chest pain, unspecified type R07.9 ; Chronic obstructive SP disease, unspecified COPD type J44.9 ; Hyperlipidemia, unspecified hyperlipidemia type E78.5 and Tobacco use Z72.0 [place] [address] [address] [facility] [id number] [address] [place] [phone] SP Mar, Mood disorder F39 SP [facility] [address] [facility] [id number] [address] [place] [phone] SP Mar, Mood disorder F39 SP [place] [address] [address] [facility] [id number] [address] [place] [phone] SP Mar, Other osteoarthritis of spin e, cervical region M47.892 SP [facility] [address] [facility] [id number] [address] [place] [phone] SP Mar, Tear of right rotator cuff, unspecified tear extent M75.101 SP [facility] [address] [facility] [id number] [address] [place] [phone] SP Mar, SP [facility] [address] [id number] [address] [place] [phone] SP Mar, Bipolar II disorder F31.81 SP [facility] [address] [id number] [address] [place] [phone] SP Mar, SP [facility] [address] [id number] [address] [place] [phone] SP Feb, Impingement syndrome of righ t shoulder M75.41 ; Tear of right SP cuff, unspecified tear extent M75.101 and Loose body in right elbow M24.021 [facility] [address] [facility] [id number] [address] [place] [phone] SP Jan, SP [facility] [address] [facility] [id number] [address] [place] [phone] SP Jan, SP [facility] [address] [facility] [id number] [address] [place] [phone] SP Jan, Prediabetes R73.09 ; Other c hronic pain G89.29 and Pain in right SP M25.511 [facility] [address] [id number] [address] [place] [phone] SP Dec, SP [facility] [address] 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 [id number] [address] [place] [phone] SP Nov, Leukocytosis D72.829 SP [facility] [address] [facility] [id number] [address] [place] [phone] SP Nov, SP [place] [id number] [facility] [id number] [address] [place] [phone] SP Nov, Enlarged lymph node R59.9 ; Chronic obstructive pulmonary SP unspecified COPD type J44.9 ; Low back pain M54.5 ; Neuropathy G62.9 and Closed nondisplaced fracture of sternal end of right clavicle, sequela S42.017S [place] [address] [address] [facility] [id number] [address] [place] [phone] SP October, SP [place] [address] [address] [place] [id number] [address] [place] [phone] SP October, SP [place] [address] [address] [place] [id number] [address] [place] [phone] SP Sep, SP [place] [address] [address] [place] [id number] [address] [place] [phone] SP Aug, Double vision H53.2 ; Occipi greg headache R51 ; Chronic SP pulmonary disease, unspecified COPD type J44.9 and Gastroesophageal reflux disease, esophagitis presence not specified K21.9 [place] [address] [address] [facility] [id number] [address] [place] [phone] SP Aug, SP [place] [address] [address] [facility] [id number] [address] [place] [phone] SP Jul, Enlarged lymph node in neck R59.0 SP [place] [address] [address] [facility] [id number] [address] [place] [phone] SP Jul, SP [place] [address] [address] [place] [id number] [address] [place] [phone] SP Jul, Chronic obstructive pulmonar y disease, unspecified COPD type SP ; Tobacco use Z72.0 ; Leukocytosis D72.829 ; Hyperlipidemia E78.5 and Neck abscess L02.11 [place] [address] [address] [facility] [id number] [address] [place] [phone] SP Jun, Shortness of breath R06.02 SP [place] [address] [address] [facility] [id number] [place] [phone] SP May, Leukocytosis D72.829 and Susan rtness of breath R06.02 SP [place] [address] [address] [place] [id number] [place] [phone] SP May, Low back pain M54.5 ; Hyperl ipidemia E78.5 ; Leukocytosis D72.829 SP; Other osteoarthritis of spine, cervical region M47.892 and Shortness of breath R06.02 [place] [address] [address] [place] [id number] [place] [phone] SP Feb, Chest pain 786.50 ; Tobacco use 305.1 ; Back pain 724.5 and SP 272.4 [place] [address] [phone] SP Jan, SP [place] [address] [address] [place] [id number] [place] [phone] SP Jan, Chronic low back pain 724.2 and Degenerative arthritis of SP spine 721.0 [place] [address] [address] [place] [id number] [place] [phone] SP Jan, Chronic low back pain 724.2 and Neck pain 723.1 SP [place] [address] [address] [place] [id number] [place] [phone] SP Dec, Chronic low back pain 724.2 and Neck pain 723.1 SP [place] [address] [address] [place] [id number] [place] [phone] SP Nov, Chest pain 786.50 ; Dyspnea 786.09 ; Tobacco use 305.1 and Back SP 724.5 [place] [address] [address] [place] [id number] [address] [place] [phone] SP Nov, SP [place] [address] [address] [facility] [id number] [address] [place] [phone] SP Nov, Disability examination V68.0 1 and Muscle pain 729.1 SP [facility] [address] [facility] [id number] [address] [place] [phone] SP October, History of RI (myocardial in farction) 412 ; Hyperlipidemia LDL SP < 100 272.4 ; Leukocytosis 288.60 and Glucose intolerance (pre-diabetes) 790.29 [facility] [address] [facility] [id number] [address] [place] [phone] SP October, Chest pain 786.50 ; Chronic low back pain 724.2 ; History of RI SP infarction) 412 and Neuropathy 355.9 [place] [address] [address] [facility] [id number] [address] [place] [phone] SP October, Chronic low back pain 724.2 ; Chest pain 786.50 ; History of RI SP infarction) 412 and Neuropathy 355.9 IMMUNIZATIONS No Known Immunizations SOCIAL HISTORY Never Assessed REASON FOR VISIT LUIS Marley PLAN OF CARE VITAL SIGNS MEDICATIONS Medication Instructions Dosage Frequency Start Date End Date Duration S tatus POS Blood Glucose Monitor System w/Device subcutaneously 2 times a day three times SP DX: E11.65 test blood sugar May, Act ebony SP Blood Glucose Test - subcutaneously 2 times a day three time s weekly DX: E11.65 SP blood sugar May, Active SP RESULTS No Results PROCEDURES No [...]
--- OUTSIDE RECORDS SUMMARY | 2019-04-11 23:13 | XMS REPORT ---
Author Author KINJALDORIS MARIE POS Organization [facility] SP Address [address] [place] [address] SP Care Team Providers Care Cut Off Tender Glass Name Role Phone POS DORIS LAYTON Unavailable SP PROBLEMS Type Condition ICD9-CM Code IOF35-EQ Code Onset Dates Condition S tatus SNOMED POS Problem Enlarged lymph node R59.9 Active [id number] POS Problem Hyperlipidemia, unspecified hyperlipidemia type E7 8.5 Active SP Problem Tear of right rotator cuff, unspecified tear extent M75.101 Active SP Problem Other chronic pain G89.29 Active 8 1532030 SP Problem Internal hemorrhoids K64.8 Active 05844279 SP Problem Nocturnal hypoxia G47.34 Active 38 3051040 SP Problem Panlobular emphysema J43.1 Active 0120745 SP Problem Hyperplastic colonic polyp, unspecified part of colon K63.5 Active SP Problem Non-seasonal allergic rhinitis due to other allergic iggy er J30.89 SP 57110580 SP Problem Mood disorder F39 Active 644188 05 SP Problem Bipolar disorder, unspecified F31.9 Active 24316568 SP Problem Uncontrolled type 2 diabetes mellitus with hyperglycemia, without long- SP current use of insulin E11.65 Active 44 4266700 SP Problem GERD with esophagitis K21.0 Active 631184109 SP Problem Other osteoarthritis of spine, cervical region M47 .892 Active SP Problem Hiatal hernia K44.9 Active 693514 09 SP Problem External hemorrhoids K64.4 Active 76109657 SP Problem Leukocytosis D72.829 Active 0987058 06 SP Problem Hyperlipidemia E78.5 Active 33307 004 SP Problem History of LA (myocardial infarction) I25.2 Active 087860272 SP Problem Neuropathy G62.9 Active 407744617 SP Problem Other chronic gastritis without hemorrhage K29.50 Active 2616744 SP Problem Low back pain M54.5 Active 479041 005 SP Problem Tobacco use Z72.0 Active 79806213 0 SP ALLERGIES No Information ENCOUNTERS Encounter Location Date Diagnosis POS [facility] [address] [facility] [id number] [address] [place] [address] SP Jun, SP [place] [address] [facility] [id number] [address] [place] [address] SP Apr, Uncontrolled type 2 diabetes mellitus with hyperglycemia, without SPlong-term current use of insulin E11.65 [facility] [address] [facility] [id number] [address] [place] [address] SP Apr, Preoperative clearance Z01.8 18 and Uncontrolled type 2 diabetes SP with hyperglycemia, without long-term current use of insulin E11.65 [facility] [address] [facility] [id number] [place] [phone] SP Apr, SP [facility] [address] [place] [id number] [place] [phone] SP Apr, SP [facility] [address] [place] [id number] [place] [phone] SP Apr, SP [facility] [address] [place] [id number] [place] [phone] SP Apr, SP [facility] [address] [place] [id number] [place] [address] SP Mar, Herpes zoster without compli cation B02.[address] [facility] [address] [place] [id number] [address] [place] [phone] SP Mar, SP [facility] [address] [facility] [id number] [address] [place] [phone] SP Mar, SP [facility] [address] [facility] [id number] [address] [place] [phone] SP Mar, Uncontrolled type 2 diabetes mellitus with hyperglycemia, without SPlong-term current use of insulin E11.65 [facility] [address] [facility] [id number] [address] [place] [address] SP Mar, Fall (on) (from) other stair s and steps, initial encounter SP ; Lumbar contusion, initial encounter S30.0XXA ; Elbow pain, right M25.521 and Thoracic spine pain M54.6 [place] [address] [facility] [id number] [address] [place] [phone] SP Mar, Mood disorder F39 SP [place] [address] [facility] [id number] [address] [place] [phone] SP Mar, SP [place] [address] [id number] [address] [place] [address] SP Mar, Leukocytosis D72.829 SP [place] [address] [id number] [address] [place] [address] SP Mar, SP [place] [address] [facility] [id number] [address] [place] [phone] SP Mar, Other chronic gastritis with out hemorrhage K29.50 SP [place] [address] [facility] [id number] [address] [place] [address] SP Mar, Uncontrolled type 2 diabetes mellitus with hyperglycemia, without SPlong-term current use of insulin E11.65 ; Low back pain M54.5 ; Other osteoarthritis of spine, cervical region M47.892 ; Panlobular emphysema J43.1 ; Leukocytosis D72.829 and Lumbar back pain with radiculopathy affecting lower extremity M54.16 [place] [address] [facility] [id number] [address] [place] [address] SP Feb, SP [place] [address] [id number] [address] [place] [phone] SP Feb, SP [place] [address] [facility] [id number] [address] [place] [id number] SP Feb, Uncontrolled type 2 diabetes mellitus with hyperglycemia, without SPlong-term current use of insulin E11.65 [place] [address] [facility] [id number] [address] [place] [address] SP Feb, Mood disorder F39 SP [place] [address] [id number] [address] [place] [phone] SP Jan, SP [facility] [address] [facility] [id number] [address] [place] [phone] SP Jan, Mood disorder F39 SP [facility] [address] [facility] [id number] [address] [place] [address] SP Jan, SP [facility] [address] [facility] [id number] [address] [place] [address] SP Dec, Bipolar disorder, unspecifie d F31.[address] [facility] [address] [id number] [address] [place] [address] SP Dec, SP [facility] [address] [facility] [id number] [address] [place] [phone] SP Dec, SP [facility] [address] [facility] [id number] [address] [place] [phone] SP Dec, SP [facility] [address] [facility] [id number] [address] [place] [phone] SP Dec, Mood disorder F39 SP [facility] [address] [facility] [id number] [address] [place] [address] SP Nov, Bipolar disorder, unspecifie d F31.[address] [facility] [address] [facility] [id number] [address] [place] [phone] SP Nov, SP [facility] [address] [facility] [id number] [address] [place] [address] SP Nov, Pain in left knee M25.562 ; Other chronic pain G89.29 ; SP E78.5 ; Leukocytosis D72.829 ; Other osteoarthritis of spine, cervical region M47.892 ; Tobacco use Z72.0 and Uncontrolled type 2 diabetes mellitus with hyperglycemia, without long-term current use of insulin E11.65 [facility] [address] [facility] [id number] [address] [place] [phone] SP Nov, [facility] [address] [id number] [address] [place] [phone] SP Nov, SP [facility] [address] [facility] [id number] [address] [place] [id number] SP October, SP [facility] [address] [facility] [id number] [address] [place] [phone] SP October, Low back pain M54.5 SP [facility] [address] [id number] [address] [place] [phone] SP Sep, SP [facility] [address] [facility] [id number] [address] [place] [address] SP Sep, SP [facility] [address] [facility] [id number] [address] [place] [address] SP Sep, Leukocytosis D72.[address] [facility] [address] [facility] [id number] [address] [place] [address] SP Sep, SP [facility] [address] [facility] [id number] [address] [place] [phone] SP Sep, SP [facility] [address] [facility] [id number] [address] [place] [phone] SP Sep, SP [facility] [address] [facility] [id number] [address] [place] [phone] SP Aug, Low back pain M54.[address] [facility] [address] [facility] [id number] [address] [place] [phone] SP Aug, Bipolar disorder, unspecifie d F31.9 SP [facility] [address] [facility] [id number] [address] [place] [phone] SP Aug, SP [facility] [address] [facility] [id number] [address] [place] [phone] SP Aug, SP [facility] [address] [facility] [id number] [address] [place] [address] SP Aug, Uncontrolled type 2 diabetes mellitus with hyperglycemia, without SPlong-term current use of insulin E11.65 ; Non-healing surgical wound, initial encounter T81.89XA ; Cellulitis of abdominal wall L03.311 ; Hyperlipidemia E78.5 ; Chronic obstructive pulmonary disease, unspecified COPD type J44.[address] [facility] [address] [facility] [id number] [address] [place] [address] SP Aug, SP [facility] [address] [facility] [id number] [address] [place] [phone] SP Jul, SP [facility] [address] [facility] [id number] [address] [place] [phone] SP Jul, SP [facility] [address] [facility] [id number] [address] [place] [address] SP Jul, Type 2 diabetes mellitus wit h diabetic neuropathy, unspecified SP term insulin use status E11.40 [facility] [address] [facility] [id number] [address] [place] [phone] SP Jun, Bipolar disorder, unspecifie d F31.[address] [facility] [address] [facility] [id number] [address] [place] [id number] SP Jun, SP [facility] [address] [facility] [id number] [address] [place] [phone] SP Jun, Bipolar disorder, unspecifie d F31.[address] [facility] [address] [facility] [id number] [address] [place] [phone] SP Jun, Mood disorder F39 [facility] [address] [facility] [id number] [address] [place] [phone] SP Jun, SP [facility] [address] [facility] [id number] [address] [place] [phone] SP May, Fissure in skin of foot R23. 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, unspecified half-way insulin use status E11.40 [facility] [address] [facility] [id number] [address] [place] [phone] SP May, Mood disorder F39 [facility] [address] [facility] [id number] [address] [place] [phone] SP Apr, SP [facility] [address] [facility] [id number] [address] [place] [phone] SP Apr, Cough R05 and Tobacco use Z7 2.[address] [facility] [address] [facility] [id number] [address] [place] [phone] SP Apr, Cough R05 and Tobacco use Z7 2.0 SP [place] [address] [facility] [id number] [address] [place] [phone] SP Apr, Mood disorder F39 SP [place] [address] [facility] [id number] [address] [place] [phone] SP Apr, Low back pain M54.5 SP [place] [address] [facility] [id number] [address] [place] [phone] SP Apr, Uncontrolled type 2 diabetes mellitus with hyperglycemia, without SPlong-term current use of insulin E11.65 [place] [address] [facility] [id number] [address] [place] [address] SP Apr, Uncontrolled type 2 diabetes mellitus with hyperglycemia, without SPlong-term current use of insulin E11.65 [place] [address] [facility] [id number] [address] [place] [phone] SP Mar, Bipolar disorder, unspecifie d F31.9 SP [place] [address] [facility] [id number] [address] [place] [phone] SP Mar, SP [place] [address] [facility] [id number] [address] [place] [phone] SP Mar, Bipolar disorder, unspecifie d F31.9 SP [place] [address] [place] [id number] [address] [place] [phone] SP Mar, Mood disorder F39 [address] [facility] [id number] [place] [address] SP Feb, SP [facility] [id number] [place] [address] SP Feb, SP [facility] [address] [phone] SP Feb, SP [place] [address] [phone] SP Feb, Bipolar disorder, unspecifie d F31.9 SP [place] [address] [phone] SP Feb, Uncontrolled type 2 diabetes mellitus with hyperglycemia, without SPlong-term current use of insulin E11.65 ; Encounter for immunization Z23 ; Vasovagal syncope R55 and Low back pain M54.5 [place] [address] [address] SP Jan, Bipolar disorder, unspecifie d F31.9 SP [place] [address] [address] SP Jan, SP [place] [address] [address] SP Jan, Fatigue, unspecified type R5 3.83 ; Nocturnal hypoxia G47.34 ; SP D72.829 ; Other chronic gastritis without hemorrhage K29.50 ; Uncontrolled type 2 diabetes mellitus with hyperglycemia, without long-term current use of insulin E11.65 ; Alternating constipation and diarrhea R19.8 and Chronic obstructive pulmonary disease, unspecified COPD type J44.9 [place] [address] [address] SP Jan, SP [place] [address] [place] [id number] [place] [address] SP Jan, Leukocytosis D72.829 SP [place] [address] [facility] [id number] [address] [place] [phone] SP Jan, Mood disorder F39 SP [facility] [address] [facility] [id number] [address] [place] [address] SP Dec, Bipolar disorder, unspecifie d F31.[address] [facility] [address] [facility] [id number] [address] [place] [address] SP Dec, [facility] [address] [facility] [id number] [address] [place] [address] SP Dec, Acute gastritis without blee ding K29.[address] [facility] [address] [facility] [id number] [address] [place] [address] SP Dec, Leukocytosis D72.[address] [facility] [address] [facility] [id number] [address] [place] [phone] SP Dec, [facility] [address] [facility] [id number] [address] [place] [phone] SP Dec, Dental examination Z01.20 [facility] [address] [facility] [id number] [address] [place] [address] SP Dec, [facility] [address] [facility] [id number] [address] [place] [address] SP Dec, Leukocytosis D72.829 [facility] [address] [facility] [id number] [address] [place] [address] SP Dec, Uncontrolled type 2 diabetes mellitus with hyperglycemia, without SPlong-term current use of insulin E11.65 [facility] [address] [facility] [id number] [address] [place] [address] SP Nov, Dental examination Z01.20 [facility] [address] [facility] [id number] [address] [place] [phone] SP Nov, SP [facility] [address] [facility] [id number] [address] [place] [phone] SP Nov, Major depressive disorder, r ecurrent episode, moderate F33.1 [facility] [address] [id number] [address] [place] [address] SP Nov, Leukocytosis D72.[address] [facility] [address] [facility] [id number] [address] [place] [address] SP Nov, Mood disorder F39 [place] [address] [facility] [id number] [address] [place] [address] SP Nov, Other osteoarthritis of spin e, cervical region M47.892 and SP type 2 diabetes mellitus with hyperglycemia, without long-term current use of insulin E11.65 [place] [address] [facility] [id number] [address] [place] [address] SP Nov, Leukocytosis D72.829 and Sapphire vated serum glucose R73.9 [place] [address] [facility] [id number] [address] [place] [address] SP October, Elevated serum glucose R73.9 [place] [address] [facility] [id number] [address] [place] [address] SP October, Mood disorder F39 [place] [address] [facility] [id number] [address] [place] [phone] SP Sep, Major depressive disorder, r ecurrent episode, moderate F33.1 [place] [address] [facility] [id number] [address] [place] [address] SP Sep, Mood disorder F39 [facility] [address] [id number] [address] [place] [address] SP Aug, [place] [address] [facility] [id number] [address] [place] [phone] SP Jul, Major depressive disorder, r ecurrent episode, moderate F33.1 [place] [address] [facility] [id number] [address] [place] [address] SP Jul, Mood disorder F39 [place] [address] [facility] [id number] [address] [place] [address] SP Jul, SP [place] [address] [place] [id number] [place] [address] SP Jul, History of LA (myocardial in farction) I25.2 ; Hyperlipidemia SP ; Prediabetes R73.09 ; Chronic obstructive pulmonary disease, unspecified COPD type J44.9 and Tobacco use Z72.0 [place] [address] [place] [id number] [address] [place] [address] SP Jun, SP [place] [address] [facility] [id number] [place] [phone] SP Jun, Mood disorder F39 SP [place] [address] [place] [id number] [place] [address] SP Jun, SP [place] [address] [place] [id number] [place] [address] SP May, Major depressive disorder, r ecurrent episode, moderate F33.1 and SP insomnia F51.01 [place] [address] [place] [id number] [address] [place] [phone] SP May, Mood disorder F39 SP [place] [address] [facility] [id number] [address] [place] [address] SP Apr, SP [place] [address] [place] [id number] [address] [place] [address] SP Apr, Mood disorder F39 [facility] [address] [facility] [id number] [address] [place] [address] SP Apr, SP [place] [address] [place] [id number] [address] [place] [phone] SP Apr, SP [facility] [address] [place] [id number] [address] [place] [address] SP Apr, Chronic obstructive pulmonar y disease, unspecified COPD type SP and Non-seasonal allergic rhinitis due to other allergic trigger J30.89 [facility] [address] [id number] [address] [place] [phone] SP Apr, Mood disorder F39 [address] [facility] [address] [facility] [id number] [address] [place] [phone] SP Apr, Major depressive disorder, r ecurrent episode, moderate F33.1 and SP (post-traumatic stress disorder) F43.10 [facility] [address] [id number] [address] [place] [phone] SP Apr, SP [facility] [address] [facility] [id number] [address] [place] [address] SP Apr, SP [facility] [address] [facility] [id number] [address] [place] [id number] SP Apr, Chest pain, unspecified type R07.9 ; Chronic obstructive SP disease, unspecified COPD type J44.9 ; Hyperlipidemia, unspecified hyperlipidemia type E78.5 and Tobacco use Z72.0 [facility] [address] [facility] [id number] [address] [place] [address] SP Mar, Mood disorder F39 SP [facility] [address] [facility] [id number] [address] [place] [address] SP Mar, Mood disorder F39 [address] [facility] [address] [facility] [id number] [address] [place] [phone] SP Mar, Other osteoarthritis of spin e, cervical region M47.[address] [facility] [address] [id number] [address] [place] [address] SP Mar, Tear of right rotator cuff, unspecified tear extent M75.[address] [facility] [address] [facility] [id number] [address] [place] [phone] SP Mar, SP [facility] [address] [facility] [id number] [address] [place] [phone] SP Mar, Bipolar II disorder F31.81 SP [place] [address] [id number] [address] [place] [id number] SP Mar, SP [facility] [address] [id number] [address] [place] [phone] SP Feb, Impingement syndrome of righ t shoulder M75.41 ; Tear of right SP cuff, unspecified tear extent M75.101 and Loose body in right elbow M24.021 [facility] [address] [id number] [address] [place] [phone] SP Jan, SP [facility] [address] [id number] [address] [place] [phone] SP Jan, SP [facility] [address] [id number] [address] [place] [phone] SP Jan, Prediabetes R73.09 ; Other c hronic pain G89.29 and Pain in right SP M25.511 [facility] [address] [id number] [address] [place] [id number] SP Dec, SP [facility] [address] [id number] [address] [place] [phone] SP Dec, Heartburn R12 and Chest disc omfort R07.[address] 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 [address] [id number] [address] [place] [phone] SP Nov, SP [facility] [address] [facility] [id number] [address] [place] [id number] SP Nov, Leukocytosis D72.[address] [facility] [address] [id number] [address] [place] [phone] SP Nov, SP [facility] [address] [place] [id number] [address] [place] [phone] SP Nov, Enlarged lymph node R59.9 ; Chronic obstructive pulmonary SP unspecified COPD type J44.9 ; Low back pain M54.5 ; Neuropathy G62.9 and Closed nondisplaced fracture of sternal end of right clavicle, sequela S42.017S [facility] [address] [place] [id number] [address] [place] [phone] SP October, SP [facility] [address] [place] [id number] [place] [phone] SP October, SP [facility] [address] [place] [id number] [place] [phone] SP Sep, SP [facility] [facility] [address] [place] [id number] [place] [phone] SP Aug, Double vision H53.2 ; Occipi greg headache R51 ; Chronic SP pulmonary disease, unspecified COPD type J44.9 and Gastroesophageal reflux disease, esophagitis presence not specified K21.9 [place] [id number] [place] [id number] [place] [phone] SP Aug, SP [place] [id number] [place] [id number] [place] [phone] SP Jul, Enlarged lymph node in neck R59.0 SP [place] [id number] [place] [id number] [place] [phone] SP Jul, SP [facility] [address] [place] [id number] [place] [phone] SP Jul, Chronic obstructive pulmonar y disease, unspecified COPD type SP ; Tobacco use Z72.0 ; Leukocytosis D72.829 ; Hyperlipidemia E78.5 and Neck abscess L02.11 [facility] [address] [place] [id number] [place] [phone] SP Jun, Shortness of breath R06.[address] [address] [place] [id number] [place] [phone] SP May, Leukocytosis D72.829 and Susan rtness of breath R06.[address] [facility] [address] [facility] [id number] [place] [phone] SP May, Low back pain M54.5 ; Hyperl ipidemia E78.5 ; Leukocytosis D72.829 SP; Other osteoarthritis of spine, cervical region M47.892 and Shortness of breath R06.02 [facility] [address] [facility] [id number] [address] [place] [phone] SP Feb, Chest pain 786.50 ; Tobacco use 305.1 ; Back pain 724.5 and SP 272.4 [place] [address] [place] [id number] [place] [phone] SP Jan, SP [place] [address] [place] [id number] [place] [phone] SP Jan, Chronic low back pain 724.2 and Degenerative arthritis of SP spine 721.0 [place] [address] [place] [id number] [place] [phone] SP Jan, Chronic low back pain 724.2 and Neck pain 723.1 [address] [place] [address] [place] [id number] [place] [phone] SP Dec, Chronic low back pain 724.2 and Neck pain 723.[address] [address] [facility] [id number] [address] [place] [phone] SP Nov, Chest pain 786.50 ; Dyspnea 786.09 ; Tobacco use 305.1 and Back SP 724.5 [place] [address] [place] [id number] [place] [phone] SP Nov, SP [place] [address] [place] [id number] [place] [phone] SP Nov, Disability examination V68.0 1 and Muscle pain 729.1 SP [place] [address] [facility] [id number] [address] [place] [phone] SP October, History of LA (myocardial in farction) 412 ; Hyperlipidemia LDL SP < 100 272.4 ; Leukocytosis 288.60 and Glucose intolerance (pre-diabetes) 790.29 [facility] [address] [facility] [id number] [address] [place] [phone] SP October, Chest pain 786.50 ; Chronic low back pain 724.2 ; History of LA SP infarction) 412 and Neuropathy 355.9 [place] [address] [facility] [id number] [address] [place] [phone] SP October, Chronic low back pain 724.2 ; Chest pain 786.50 ; History of [place] SP infarction) 412 and Neuropathy 355.9 IMMUNIZATIONS No Known Immunizations SOCIAL HISTORY Never Assessed REASON FOR VISIT Glucometer PLAN OF CARE VITAL SIGNS MEDICATIONS Medication Instructions Dosage Frequency Start Date End Date Duration S tatus POS Metoprolol Succinate 50 MG Orally Once a day 1 capsule 24h Active SP Carafate 1 GM Orally 4 times a day 1 tablet on an empty stomach 6h Active SP Singulair 10 mg Orally Once a day 1 tablet in the evening 24h 90 days Active SP Victoza 18 MG/3ML Subcutaneous Once a day 1.8 mg 24h Feb, Active SP Albuterol Sulfate (2.5 MG/3ML) 0.083% Inhalation 4 times a day 3 ml 6 h SP Oxygen inhalation Portable 2 liters per minute Active SP FreeStyle Tru Sensor System - subcutaneously 2 times a day 3 times weekly DX: SP test blood sugar Active SP ZyrTEC 10 MG Orally Once a day 1 tablet 24h Active SP Blood Glucose Monitor System w/Device DX- E 11.65 2 ti mes a day- 3 times weekly. SP test blood sugar Nov, Active SP Aspir-81 81 MG Orally Once a day 1 tablet 24h Active SP Metformin HCl 1000 MG Orally Twice a day 1 tablet with meals 12h 90 Active SP Furosemide 40 MG Orally Once a day 1 tablet 24h Active SP Blood Glucose Test - and lancets. DX E11.65 2 times a day- 3 times weekly. test SPblood sugar 16 Active SP Potassium Chloride Patrica ER 20 MEQ Orally Once a day 1 tablet with food 24h SP Active SP Nebulizer - Active SP Seroquel 300 MG Orally at night 1.5 tabs 30 Active SP Trazodone HCl 150 MG TAKE ONE-HALF TABLE T BY MOUTH AT NIGHT NEEDED FOR SP 30 Active SP Atorvastatin Calcium 40 MG Orally Once a day 1 tablet 24h 30 day(s) Active SP Proventil HFA 108 (90 Base) MCG/ACT Inhalation every 4 hrs 2 puffs as needed 4h SP Jul, 2015 Active SP Baclofen 10 mg Orally once daily 1 tablet with food or milk as needed 24h 90 SP Active SP Citalopram Hydrobromide 40 MG Orally Once a day 1 tablet 24h 30 Active SP BD Pen Needle Short U/F 31G X 8 MM as directed o nce per day use with Victoza SP Mar, Active SP Symbicort 160-4.5 MCG/ACT INHALE TWO PUFFS BY MOUTH TWICE DAILY 30 SP Naproxen Orally 2 times a day 12h No t-Taking SP Dexilant 60 MG TAKE ONE CAPSULE BY MOUTH ONCE DAILY 90 Active SP Acyclovir 800 MG Orally Five times a day 1 tablet Mar, 10 day(s) SP RESULTS No Results PROCEDURES No Known [...]
--- OUTSIDE RECORDS SUMMARY | 2019-04-11 23:13 | XMS REPORT ---
Author Author KINJALDORIS MARIE POS Organization [facility] SP Address [address] [place] [address] SP Care Team Providers Care Skiver Hand Name Role Phone POS DORIS LAYTON Unavailable SP PROBLEMS Type Condition ICD9-CM Code KUR51-XG Code Onset Dates Condition S tatus SNOMED POS Problem Enlarged lymph node R59.9 Active 05346518 POS Problem Hyperlipidemia, unspecified hyperlipidemia type E7 8.5 Active SP Problem Tear of right rotator cuff, unspecified tear extent M75.101 Active SP Problem Other chronic pain G89.29 Active 8 5568209 SP Problem Internal hemorrhoids K64.8 Active 39954074 SP Problem Nocturnal hypoxia G47.34 Active 38 9493517 SP Problem Panlobular emphysema J43.1 Active 6916748 SP Problem Hyperplastic colonic polyp, unspecified part of colon K63.5 Active SP Problem Non-seasonal allergic rhinitis due to other allergic iggy er J30.89 SP [id number] SP Problem Mood disorder F39 Active 854028 05 SP Problem Bipolar disorder, unspecified F31.9 Active 40389912 SP Problem Uncontrolled type 2 diabetes mellitus with hyperglycemia, without long- SP current use of insulin E11.65 Active 44 7853012 SP Problem GERD with esophagitis K21.0 Active 479375335 SP Problem Other osteoarthritis of spine, cervical region M47 .892 Active SP Problem Hiatal hernia K44.9 Active 891615 09 SP Problem External hemorrhoids K64.4 Active 44317172 SP Problem Leukocytosis D72.829 Active 5634263 06 SP Problem Hyperlipidemia E78.5 Active 11545 004 SP Problem History of CT (myocardial infarction) I25.2 Active 271189588 SP Problem Neuropathy G62.9 Active 428998757 SP Problem Other chronic gastritis without hemorrhage K29.50 Active 4092002 SP Problem Low back pain M54.5 Active 025135 005 SP Problem Tobacco use Z72.0 Active 09120719 0 SP ALLERGIES Substance Reaction Event Type Date Status POS Peanut (Diagnostic) Unknown Drug Allergy Apr, Active SP Incruse Ellipta Unknown Drug Allergy Apr, Active SP Tetracycline HCl nausea and vomiting Drug Allergy Apr, Acti ve SP Spiriva HandiHaler Suicidal ideation Drug Allergy Apr, Acti ve SP Ampicillin anaphylaxis Drug Allergy Apr, Active SP strawberries Unknown Non Drug Allergy Apr, Active SP penicillin anaphylaxis Non Drug Allergy Apr, Active SP ENCOUNTERS Encounter Location Date Diagnosis POS [facility] [id number] [place] [phone] SP Jun, SP [facility] [address] [phone] SP Apr, Uncontrolled type 2 diabetes mellitus with hyperglycemia, without SPlong-term current use of insulin E11.65 [facility] [id number] [place] [phone] SP Apr, Preoperative clearance Z01.8 18 and Uncontrolled type 2 diabetes SP with hyperglycemia, without long-term current use of insulin E11.65 [facility] [address] [facility] [id number] [address] [place] [phone] SP Apr, SP [facility] [address] [facility] [id number] [address] [place] [phone] SP Apr, SP [facility] [address] [facility] [id number] [address] [place] [phone] SP Apr, SP [facility] [id number] [place] [phone] SP Apr, SP [facility] [address] [facility] [id number] [address] [place] [address] SP Mar, Herpes zoster without compli cation B02.9 SP [facility] [address] [facility] [id number] [address] [place] [phone] SP Mar, SP [facility] [address] [facility] [id number] [address] [place] [phone] SP Mar, SP [facility] [address] [id number] [address] [place] [phone] SP Mar, Uncontrolled type 2 diabetes mellitus with hyperglycemia, without SPlong-term current use of insulin E11.65 [facility] [address] [id number] [address] [place] [address] SP Mar, Fall (on) (from) other stair s and steps, initial encounter SP ; Lumbar contusion, initial encounter S30.0XXA ; Elbow pain, right M25.521 and Thoracic spine pain M54.6 [facility] [address] [id number] [address] [place] [phone] SP Mar, Mood disorder F39 SP [facility] [address] [id number] [address] [place] [phone] SP Mar, SP [facility] [address] [facility] [id number] [address] [place] [phone] SP Mar, Leukocytosis D72.829 SP [facility] [address] [id number] [address] [place] [phone] SP Mar, SP [facility] [address] [facility] [id number] [address] [place] [phone] SP Mar, Other chronic gastritis with out hemorrhage K29.50 SP [facility] [address] [id number] [address] [place] [phone] SP Mar, Uncontrolled type 2 diabetes mellitus with hyperglycemia, without SPlong-term current use of insulin E11.65 ; Low back pain M54.5 ; Other osteoarthritis of spine, cervical region M47.892 ; Panlobular emphysema J43.1 ; Leukocytosis D72.829 and Lumbar back pain with radiculopathy affecting lower extremity M54.16 [facility] [address] [id number] [address] [place] [phone] SP Feb, SP [facility] [address] [facility] [id number] [address] [place] [phone] SP Feb, SP [facility] [address] [id number] [address] [place] [phone] SP Feb, Uncontrolled type 2 diabetes mellitus with hyperglycemia, without SPlong-term current use of insulin E11.65 [facility] [address] [id number] [address] [place] [phone] SP Feb, Mood disorder F39 SP [facility] [address] [id number] [address] [place] [phone] SP Jan, SP [facility] [address] [id number] [address] [place] [phone] SP Jan, Mood disorder F39 SP [facility] [address] [id number] [address] [place] [phone] SP Jan, SP [facility] [address] [id number] [address] [place] [phone] SP Dec, Bipolar disorder, unspecifie d F31.9 SP [facility] [address] [id number] [address] [place] [phone] SP Dec, SP [facility] [address] [id number] [address] [place] [phone] SP Dec, SP [facility] [address] [id number] [address] [place] [phone] SP Dec, SP [facility] [address] [id number] [address] [place] [phone] SP Dec, Mood disorder F39 SP [facility] [address] [id number] [address] [place] [phone] SP Nov, Bipolar disorder, unspecifie d F31.9 SP [facility] [address] [id number] [address] [place] [phone] SP Nov, SP [facility] [address] [facility] [id number] [address] [place] [phone] SP Nov, Pain in left knee M25.562 ; Other chronic pain G89.29 ; SP E78.5 ; Leukocytosis D72.829 ; Other osteoarthritis of spine, cervical region M47.892 ; Tobacco use Z72.0 and Uncontrolled type 2 diabetes mellitus with hyperglycemia, without long-term current use of insulin E11.65 [facility] [address] [id number] [address] [place] [phone] SP Nov, SP [facility] [address] [id number] [address] [place] [phone] SP Nov, SP [facility] [address] [id number] [address] [place] [phone] SP October, SP [facility] [address] [id number] [address] [place] [phone] SP October, Low back pain M54.5 SP [facility] [address] [id number] [address] [place] [phone] SP Sep, SP [facility] [address] [id number] [address] [place] [phone] SP Sep, SP [facility] [address] [id number] [address] [place] [phone] SP Sep, Leukocytosis D72.829 SP [facility] [address] [id number] [address] [place] [phone] SP Sep, SP [facility] [address] [id number] [address] [place] [phone] SP Sep, SP [facility] [address] [id number] [address] [place] [phone] SP Sep, SP [facility] [address] [id number] [address] [place] [phone] SP Aug, Low back pain M54.5 SP [facility] [address] [id number] [address] [place] [phone] SP Aug, Bipolar disorder, unspecifie d F31.9 SP [facility] [address] [facility] [id number] [address] [place] [phone] SP Aug, SP [facility] [address] [facility] [id number] [address] [place] [phone] SP Aug, SP [facility] [address] [facility] [id number] [address] [place] [phone] SP Aug, Uncontrolled type 2 diabetes mellitus with hyperglycemia, without SPlong-term current use of insulin E11.65 ; Non-healing surgical wound, initial encounter T81.89XA ; Cellulitis of abdominal wall L03.311 ; Hyperlipidemia E78.5 ; Chronic obstructive pulmonary disease, unspecified COPD type J44.9 and Tobacco use Z72.0 [facility] [address] [facility] [id number] [address] [place] [phone] SP Aug, SP [facility] [address] [facility] [id number] [address] [place] [phone] SP Jul, SP [facility] [address] [facility] [id number] [address] [place] [phone] SP Jul, SP [facility] [address] [facility] [id number] [address] [place] [phone] SP Jul, Type 2 diabetes mellitus wit h diabetic neuropathy, unspecified SP term insulin use status E11.40 [facility] [address] [facility] [id number] [address] [place] [phone] SP Jun, Bipolar disorder, unspecifie d F31.9 SP [facility] [address] [facility] [id number] [address] [place] [phone] SP Jun, SP [facility] [address] [facility] [id number] [address] [place] [phone] SP Jun, Bipolar disorder, unspecifie d F31.9 SP [facility] [address] [facility] [id number] [address] [place] [phone] SP Jun, Mood disorder F39 SP [place] [address] [id number] [address] [place] [phone] SP Jun, SP [facility] [address] [facility] [id number] [address] [place] [phone] SP May, Fissure in skin of foot R23. 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, unspecified manager terminal insulin use status E11.40 [address] [address] [facility] [id number] [address] [place] [id number] SP May, Mood disorder F39 SP [place] [address] [facility] [id number] [address] [place] [id number] SP Apr, SP [place] [address] [facility] [id number] [address] [place] [phone] SP Apr, Cough R05 and Tobacco use Z7 2.0 SP [place] [address] [facility] [id number] [address] [place] [phone] SP Apr, Cough R05 and Tobacco use Z7 2.0 SP [place] [address] [facility] [id number] [address] [place] [phone] SP Apr, Mood disorder F39 SP [place] [address] [facility] [id number] [address] [place] [phone] SP Apr, Low back pain M54.5 SP [place] [address] [facility] [id number] [address] [place] [phone] SP Apr, Uncontrolled type 2 diabetes mellitus with hyperglycemia, without SPlong-term current use of insulin E11.65 [address] [id number] [address] [place] [phone] SP Apr, Uncontrolled type 2 diabetes mellitus with hyperglycemia, without SPlong-term current use of insulin E11.65 [place] [address] [facility] [id number] [address] [place] [phone] SP Mar, Bipolar disorder, unspecifie d F31.9 SP [place] [address] [id number] [address] [place] [phone] SP Mar, SP [facility] [address] [facility] [id number] [address] [place] [phone] SP Mar, Bipolar disorder, unspecifie d F31.9 SP [facility] [address] [facility] [id number] [address] [place] [phone] SP Mar, Mood disorder F39 SP [facility] [address] [id number] [address] [place] [phone] SP Feb, SP [facility] [address] [id number] [address] [place] [phone] SP Feb, [facility] [address] [facility] [id number] [address] [place] [phone] SP Feb, [facility] [address] [facility] [id number] [address] [place] [phone] SP Feb, Bipolar disorder, unspecifie d F31.9 SP [facility] [address] [id number] [address] [place] [phone] SP Feb, Uncontrolled type 2 diabetes mellitus with hyperglycemia, without SPlong-term current use of insulin E11.65 ; Encounter for immunization Z23 ; Vasovagal syncope R55 and Low back pain M54.5 [place] [address] [facility] [id number] [address] [place] [phone] SP Jan, Bipolar disorder, unspecifie d F31.9 SP [facility] [address] [id number] [address] [place] [phone] SP Jan, SP [facility] [address] [facility] [id number] [address] [place] [phone] SP Jan, Fatigue, unspecified type R5 3.83 ; Nocturnal hypoxia G47.34 ; SP D72.829 ; Other chronic gastritis without hemorrhage K29.50 ; Uncontrolled type 2 diabetes mellitus with hyperglycemia, without long-term current use of insulin E11.65 ; Alternating constipation and diarrhea R19.8 and Chronic obstructive pulmonary disease, unspecified COPD type J44.9 [facility] [address] [facility] [id number] [address] [place] [phone] SP Jan, SP [facility] [address] [facility] [id number] [address] [place] [phone] SP Jan, Leukocytosis D72.829 [place] [id number] [place] [phone] SP Jan, Mood disorder F39 SP [facility] [address] [facility] [id number] [address] [place] [phone] SP Dec, Bipolar disorder, unspecifie d F31.9 SP [place] [id number] [place] [phone] SP Dec, [facility] [address] [facility] [id number] [place] [address] SP Dec, Acute gastritis without blee ding K29.00 SP [facility] [address] [facility] [id number] [address] [place] [phone] SP Dec, Leukocytosis D72.829 SP [place] [id number] [place] [phone] SP Dec, [place] [id number] [place] [phone] SP Dec, Dental examination Z01.20 SP [facility] [address] [facility] [id number] [address] [place] [phone] SP Dec, SP [facility] [address] [facility] [id number] [address] [place] [phone] SP Dec, Leukocytosis D72.829 [facility] [id number] [place] [phone] SP Dec, Uncontrolled type 2 diabetes mellitus with hyperglycemia, without SPlong-term current use of insulin E11.65 [place] [address] [facility] [id number] [address] [place] [phone] SP Nov, Dental examination Z01.20 [place] [address] [facility] [id number] [address] [place] [phone] SP Nov, [place] [address] [facility] [id number] [address] [place] [phone] SP Nov, Major depressive disorder, r ecurrent episode, moderate F33.1 [place] [address] [facility] [id number] [address] [place] [phone] SP Nov, Leukocytosis D72.829 [place] [address] [facility] [id number] [address] [place] [phone] SP Nov, Mood disorder F39 [place] [address] [facility] [id number] [address] [place] [phone] SP Nov, Other osteoarthritis of spin e, cervical region M47.892 and SP type 2 diabetes mellitus with hyperglycemia, without long-term current use of insulin E11.65 [place] [address] [facility] [id number] [address] [place] [phone] SP Nov, Leukocytosis D72.829 and Sapphire vated serum glucose R73.9 [place] [address] [facility] [id number] [address] [place] [phone] SP October, Elevated serum glucose R73.9 [place] [address] [facility] [id number] [address] [place] [phone] SP October, Mood disorder F39 [place] [address] [facility] [id number] [address] [place] [phone] SP Sep, Major depressive disorder, r ecurrent episode, moderate F33.1 [place] [address] [facility] [id number] [address] [place] [phone] SP Sep, Mood disorder F39 [place] [address] [facility] [id number] [address] [place] [phone] SP Aug, SP [facility] [address] [facility] [id number] [address] [place] [phone] SP Jul, Major depressive disorder, r ecurrent episode, moderate F33.1 SP [facility] [address] [facility] [id number] [address] [place] [phone] SP Jul, Mood disorder F39 SP [facility] [address] [facility] [id number] [address] [place] [phone] SP Jul, SP [facility] [address] [facility] [id number] [address] [place] [phone] SP Jul, History of CT (myocardial in farction) I25.2 ; Hyperlipidemia SP ; Prediabetes R73.09 ; Chronic obstructive pulmonary disease, unspecified COPD type J44.9 and Tobacco use Z72.0 [place] [address] [facility] [id number] [address] [place] [phone] SP Jun, SP [facility] [address] [facility] [id number] [address] [place] [phone] SP Jun, Mood disorder F39 SP [facility] [address] [facility] [id number] [address] [place] [phone] SP Jun, [facility] [address] [facility] [id number] [address] [place] [phone] SP May, Major depressive disorder, r ecurrent episode, moderate F33.1 and SP insomnia F51.01 [facility] [address] [facility] [id number] [address] [place] [phone] SP May, Mood disorder F39 SP [facility] [address] [facility] [id number] [address] [place] [phone] SP Apr, SP [facility] [address] [facility] [id number] [address] [place] [phone] SP Apr, Mood disorder F39 SP [facility] [address] [facility] [id number] [address] [place] [phone] SP Apr, SP [facility] [address] [facility] [id number] [address] [place] [phone] SP Apr, SP [place] [address] [facility] [id number] [address] [place] [id number] SP Apr, Chronic obstructive pulmonar y disease, unspecified COPD type SP and Non-seasonal allergic rhinitis due to other allergic trigger J30.89 [place] [address] [place] [id number] [place] [phone] SP Apr, Mood disorder F39 SP [place] [address] [address] [place] [id number] [address] [place] [phone] SP Apr, Major depressive disorder, r ecurrent episode, moderate F33.1 and SP (post-traumatic stress disorder) F43.10 [place] [address] [address] [place] [id number] [address] [place] [phone] SP Apr, SP [place] [address] [address] [place] [id number] [address] [place] [phone] SP Apr, SP [place] [address] [address] [place] [id number] [address] [place] [phone] SP Apr, Chest pain, unspecified type R07.9 ; Chronic obstructive SP disease, unspecified COPD type J44.9 ; Hyperlipidemia, unspecified hyperlipidemia type E78.5 and Tobacco use Z72.0 [place] [address] [address] [place] [id number] [address] [place] [phone] SP Mar, Mood disorder F39 SP [facility] [address] [facility] [id number] [address] [place] [id number] SP Mar, Mood disorder F39 SP [place] [address] [address] [place] [id number] [address] [place] [phone] SP Mar, Other osteoarthritis of spin e, cervical region M47.892 SP [facility] [address] [place] [id number] [address] [place] [id number] SP Mar, Tear of right rotator cuff, unspecified tear extent M75.101 SP [facility] [address] [id number] [address] [place] [id number] SP Mar, SP [facility] [address] [id number] [address] [place] [phone] SP Mar, Bipolar II disorder F31.81 SP [facility] [address] [id number] [address] [place] [phone] SP Mar, SP [facility] [address] [id number] [address] [place] [phone] SP Feb, Impingement syndrome of righ t shoulder M75.41 ; Tear of right SP cuff, unspecified tear extent M75.101 and Loose body in right elbow M24.021 [facility] [address] [id number] [address] [place] [phone] SP Jan, SP [facility] [address] [id number] [address] [place] [phone] SP Jan, SP [facility] [address] [id number] [address] [place] [phone] SP Jan, Prediabetes R73.09 ; Other c hronic pain G89.29 and Pain in right SP M25.511 [facility] [address] [id number] [address] [place] [phone] SP Dec, SP [facility] [address] [id number] [address] [place] [phone] SP Dec, Heartburn R12 and Chest disc omfort R07.89 SP [facility] [address] [id number] [address] [place] [phone] SP Dec, Impingement syndrome of righ t shoulder M75.41 and 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, 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 [facility] [address] [id number] [address] [place] [phone] SP Nov, SP [facility] [address] [id number] [address] [place] [phone] SP Nov, Leukocytosis D72.829 SP [facility] [address] [id number] [address] [place] [phone] SP Nov, SP [facility] [address] [id number] [address] [place] [phone] SP Nov, Enlarged lymph node R59.9 ; Chronic obstructive pulmonary SP unspecified COPD type J44.9 ; Low back pain M54.5 ; Neuropathy G62.9 and Closed nondisplaced fracture of sternal end of right clavicle, sequela S42.017S [facility] [address] [id number] [address] [place] [phone] SP October, SP [facility] [address] [facility] [id number] [address] [place] [phone] SP October, SP [facility] [address] [id number] [address] [place] [phone] SP Sep, SP [facility] [address] [facility] [id number] [address] [place] [phone] SP Aug, Double vision H53.2 ; Occipi greg headache R51 ; Chronic SP pulmonary disease, unspecified COPD type J44.9 and Gastroesophageal reflux disease, esophagitis presence not specified K21.9 [facility] [address] [id number] [address] [place] [phone] SP Aug, SP [facility] [address] [id number] [address] [place] [phone] SP Jul, Enlarged lymph node in neck R59.0 SP [facility] [address] [id number] [address] [place] [phone] SP Jul, SP [facility] [address] [facility] [id number] [address] [place] [phone] SP Jul, Chronic obstructive pulmonar y disease, unspecified COPD type SP ; Tobacco use Z72.0 ; Leukocytosis D72.829 ; Hyperlipidemia E78.5 and Neck abscess L02.11 [place] [address] [place] [id number] [place] [phone] SP Jun, Shortness of breath R06.02 SP [place] [address] [place] [id number] [place] [phone] SP May, Leukocytosis D72.829 and Susan rtness of breath R06.02 SP [place] [address] [place] [id number] [place] [phone] SP May, Low back pain M54.5 ; Hyperl ipidemia E78.5 ; Leukocytosis D72.829 SP; Other osteoarthritis of spine, cervical region M47.892 and Shortness of breath R06.02 [place] [address] [phone] SP Feb, Chest pain 786.50 ; Tobacco use 305.1 ; Back pain 724.5 and SP 272.4 [place] [address] [phone] SP Jan, SP [place] [address] [phone] SP Jan, Chronic low back pain 724.2 and Degenerative arthritis of SP spine 721.0 [place] [address] [phone] SP Jan, Chronic low back pain 724.2 and Neck pain 723.1 SP [place] [address] [phone] SP Dec, Chronic low back pain 724.2 and Neck pain 723.1 SP [place] [address] [place] [id number] [place] [phone] SP Nov, Chest pain 786.50 ; Dyspnea 786.09 ; Tobacco use 305.1 and Back SP 724.5 [place] [address] [facility] [id number] [address] [place] [phone] SP Nov, SP [place] [address] [place] [id number] [place], [place] [phone] SP Nov, Disability examination V68.0 1 and Muscle pain 729.1 SP [place] [phone] SP October, History of CT (myocardial in farction) 412 ; Hyperlipidemia LDL SP < 100 272.4 ; Leukocytosis 288.60 and Glucose intolerance (pre-diabetes) 790.[address] [phone] SP October, Chest pain 786.50 ; Chronic low back pain 724.2 ; History of CT SP infarction) 412 and Neuropathy 355.9 [place] [id number] [address] [place] [phone] SP October, Chronic low back pain 724.2 ; Chest pain 786.50 ; History of CT SP infarction) 412 and Neuropathy 355.9 IMMUNIZATIONS No Known Immunizations SOCIAL HISTORY Never Assessed REASON FOR VISIT requesting referral., Requesting order for new glucometer is wanting the augie brito., Pt is here for medical clearance because he is also having right shou lder surgery with Dr. Valladares.-[facility] PLAN OF CARE Activity Details POS SP Follow Up 2 Months Reason:DMII SP VITAL SIGNS Height 68 in 2018-05-01 POS Weight 233.2 lbs 2018-05-01 POS Temperature 98.3 degrees Fahrenheit 2018-05-01 POS Heart Rate 110 bpm 2018-05-01 POS Respiratory Rate 20 2018-05-01 POS BMI 35.45 kg/m2 2018-05-01 POS Blood pressure systolic 126 mmHg 2018-05-01 POS Blood pressure diastolic 76 mmHg 2018-05-01 POS MEDICATIONS Medication Instructions Dosage Frequency Start Date End Date Duration S tatus POS BD Pen Needle Short U/F 31G X 8 MM as directed o nce per day use with Victoza SP Mar, Active SP Nebulizer - Active SP Trazodone HCl 150 MG TAKE ONE-HALF TABLE T BY MOUTH AT NIGHT NEEDED FOR SP 30 Active SP Oxygen inhalation Portable 2 liters per minute Active SP Potassium Chloride Patrica ER 20 MEQ Orally Once a day 1 tablet with food 24h SP Active SP Furosemide 40 MG Orally Once a day 1 tablet 24h Active SP Blood Glucose Test - and lancets. DX E11.65 2 times a day- 3 times weekly. test SPblood sugar 16 Active SP Seroquel 300 MG Orally at night 1.5 tabs Dec, 30 days Active SP Symbicort 160-4.5 MCG/ACT INHALE TWO PUFFS BY MOUTH TWICE DAILY 30 SP ZyrTEC 10 MG Orally Once a day 1 tablet 24h Active SP Acyclovir 800 MG Orally Five times a day 1 tablet Mar, 10 day(s) SP Metformin HCl 1000 MG Orally Twice a day 1 tablet with meals 12h 90 Active SP Citalopram Hydrobromide 40 MG Orally Once a day 1 tablet 24h 30 days Active SP Dexilant 60 MG TAKE ONE CAPSULE BY MOUTH ONCE DAILY 90 Active SP Proventil HFA 108 (90 Base) MCG/ACT Inhalation every 4 hrs 2 puffs as needed 4h SP Jul, 2015 Active SP Victoza 18 MG/3ML Subcutaneous Once a day 1.8 mg 24h 12 Feb, 2018 Active SP Carafate 1 GM Orally 4 times a day 1 tablet on an empty stomach 6h Active SP Atorvastatin Calcium 40 MG Orally Once a day 1 tablet 24h 30 day(s) Active SP Naproxen Orally 2 times a day 12h No t-Taking SP Blood Glucose Monitor System w/Device DX- E 11.65 2 ti mes a day- 3 times weekly. SP test blood sugar Nov, Active SP Aspir-81 81 MG Orally Once a day 1 tablet 24h Active SP Metoprolol Succinate 50 MG Orally Once a day 1 capsule 24h Active SP Albuterol Sulfate (2.5 MG/3ML) 0.083% Inhalation 4 times a day 3 ml 6 h SP Baclofen 10 mg Orally once daily 1 tablet with food or milk as needed 24h 90 SP Active SP Singulair 10 mg Orally Once a day 1 tablet in the evening 24h 90 days Active SP RESULTS No Results PROCEDURES [...]
--- OUTSIDE RECORDS SUMMARY | 2019-04-11 23:14 | XMS REPORT ---
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 Name Role Phone POS DORIS LAYTON Unavailable SP PROBLEMS Type Condition ICD9-CM Code [id number] Code Onset Dates Condition S tatus SNOMED POS Problem Enlarged lymph node R59.9 Active [id number] POS Problem Hyperlipidemia, unspecified hyperlipidemia type E7 8.5 Active SP Problem Tear of right rotator cuff, unspecified tear extent M75.101 Active SP Problem Other chronic pain G89.29 Active 8 8884935 SP Problem Internal hemorrhoids K64.8 Active 53574324 SP Problem Nocturnal hypoxia G47.34 Active 38 6504915 SP Problem Panlobular emphysema J43.1 Active 1040517 SP Problem Hyperplastic colonic polyp, unspecified part of colon K63.5 Active SP Problem Non-seasonal allergic rhinitis due to other allergic iggy er J30.89 SP 44947642 SP Problem Mood disorder F39 Active 848243 05 SP Problem Bipolar disorder, unspecified F31.9 Active 51560788 SP Problem Uncontrolled type 2 diabetes mellitus with hyperglycemia, without long- SP current use of insulin E11.65 Active 44 6562087 SP Problem GERD with esophagitis K21.0 Active 831684501 SP Problem Other osteoarthritis of spine, cervical region M47 .892 Active SP Problem Hiatal hernia K44.9 Active 446053 09 SP Problem External hemorrhoids K64.4 Active 32074484 SP Problem Leukocytosis D72.829 Active 6738281 06 SP Problem Hyperlipidemia E78.5 Active 09911 004 SP Problem History of NE (myocardial infarction) I25.2 Active 618957134 SP Problem Neuropathy G62.9 Active 738978836 SP Problem Other chronic gastritis without hemorrhage K29.50 Active 3838558 SP Problem Low back pain M54.5 Active 692538 005 SP Problem Tobacco use Z72.0 Active 60871822 0 SP ALLERGIES No Information ENCOUNTERS Encounter Location Date Diagnosis POS [facility] [address] [facility] [id number] [address] [place] [phone] SP Jun, SP [facility] [address] [facility] [id number] [address] [place] [address] SP Apr, SP [facility] [address] [place] [id number] [address] [place] [address] SP Apr, SP [facility] [address] [facility] [id number] [place] [phone] SP Apr, SP [facility] [address] [place] [id number] [place] [phone] SP Apr, SP [facility] [address] [place] [id number] [place] [address] SP Mar, Herpes zoster without compli cation B02.9 SP [facility] [address] [place] [id number] [address] [place] [phone] SP Mar, SP [facility] [address] [place] [id number] [address] [place] [phone] SP Mar, SP [facility] [address] [place] [id number] [address] [place] [phone] SP Mar, Uncontrolled type 2 diabetes mellitus with hyperglycemia, without SPlong-term current use of insulin E11.65 [facility] [address] [place] [id number] [address] [place] [address] SP Mar, Fall (on) (from) other stair s and steps, initial encounter SP ; Lumbar contusion, initial encounter S30.0XXA ; Elbow pain, right M25.521 and Thoracic spine pain M54.6 [facility] [address] [place] [id number] [address] [place] [address] SP Mar, Mood disorder F39 SP [facility] [address] [place] [id number] [address] [place] [address] SP Mar, SP [facility] [address] [id number] [address] [place] [address] SP Mar, Leukocytosis D72.829 SP [facility] [address] [id number] [address] [place] [address] SP Mar, SP [facility] [address] [id number] [address] [place] [phone] SP Mar, Other chronic gastritis with out hemorrhage K29.50 SP [facility] [address] [id number] [address] [place] [phone] SP Mar, Uncontrolled type 2 diabetes mellitus with hyperglycemia, without SPlong-term current use of insulin E11.65 ; Low back pain M54.5 ; Other osteoarthritis of spine, cervical region M47.892 ; Panlobular emphysema J43.1 ; Leukocytosis D72.829 and Lumbar back pain with radiculopathy affecting lower extremity M54.16 [facility] [address] [facility] [id number] [address] [place] [address] SP Feb, SP [facility] [address] [id number] [address] [place] [address] SP Feb, SP [facility] [address] [facility] [id number] [address] [place] [phone] SP Feb, Uncontrolled type 2 diabetes mellitus with hyperglycemia, without SPlong-term current use of insulin E11.65 [facility] [address] [id number] [address] [place] [phone] SP Feb, Mood disorder F39 SP [facility] [address] [id number] [address] [place] [phone] SP Jan, SP [facility] [address] [id number] [address] [place] [address] SP Jan, Mood disorder F39 SP [facility] [address] [id number] [address] [place] [phone] SP Jan, SP [facility] [address] [id number] [address] [place] [phone] SP Dec, Bipolar disorder, unspecifie d F31.9 SP [facility] [address] [facility] [id number] [address] [place] [phone] SP Dec, SP [facility] [address] [facility] [id number] [address] [place] [address] SP Dec, SP [facility] [address] [facility] [id number] [address] [place] [address] SP Dec, SP [facility] [address] [facility] [id number] [address] [place] [phone] SP Dec, Mood disorder F39 SP [facility] [address] [facility] [id number] [address] [place] [phone] SP Nov, Bipolar disorder, unspecifie d F31.9 SP [facility] [address] [place] [id number] [address] [place] [address] SP Nov, SP [facility] [address] [facility] [id number] [address] [place] [address] SP Nov, Pain in left knee M25.562 ; Other chronic pain G89.29 ; SP E78.5 ; Leukocytosis D72.829 ; Other osteoarthritis of spine, cervical region M47.892 ; Tobacco use Z72.0 and Uncontrolled type 2 diabetes mellitus with hyperglycemia, without long-term current use of insulin E11.65 [facility] [address] [facility] [id number] [address] [place] [phone] SP Nov, SP [facility] [address] [facility] [id number] [address] [place] [phone] SP Nov, SP [facility] [address] [facility] [id number] [address] [place] [phone] SP October, SP [facility] [address] [facility] [id number] [address] [place] [address] SP October, Low back pain M54.5 SP [facility] [address] [facility] [id number] [address] [place] [phone] SP Sep, SP [facility] [address] [facility] [id number] [address] [place] [address] SP Sep, SP [facility] [address] [facility] [id number] [address] [place] [address] SP Sep, Leukocytosis D72.829 SP [facility] [address] [facility] [id number] [address] [place] [phone] SP Sep, SP [facility] [address] [facility] [id number] [address] [place] [address] SP Sep, SP [facility] [address] [facility] [id number] [address] [place] [address] SP Sep, SP [facility] [address] [facility] [id number] [address] [place] [phone] SP Aug, Low back pain M54.5 SP [facility] [address] [facility] [id number] [address] [place] [address] SP Aug, Bipolar disorder, unspecifie d F31.9 SP [facility] [address] [facility] [id number] [address] [place] [phone] SP Aug, SP [facility] [address] [facility] [id number] [address] [place] [address] SP Aug, SP [facility] [address] [facility] [id number] [address] [place] [phone] SP Aug, Uncontrolled type 2 diabetes mellitus with hyperglycemia, without SPlong-term current use of insulin E11.65 ; Non-healing surgical wound, initial encounter T81.89XA ; Cellulitis of abdominal wall L03.311 ; Hyperlipidemia E78.5 ; Chronic obstructive pulmonary disease, unspecified COPD type J44.9 and Tobacco use Z72.0 [facility] [address] [facility] [id number] [address] [place] [address] SP Aug, [facility] [address] [id number] [address] [place] [address] SP Jul, SP [facility] [address] [facility] [id number] [address] [place] [phone] SP Jul, SP [facility] [address] [facility] [id number] [address] [place] [address] SP Jul, Type 2 diabetes mellitus wit h diabetic neuropathy, unspecified SP term insulin use status E11.40 [facility] [address] [facility] [id number] [address] [place] [phone] SP Jun, Bipolar disorder, unspecifie d F31.9 SP [facility] [address] [facility] [id number] [address] [place] [address] SP Jun, SP [facility] [address] [facility] [id number] [address] [place] [phone] SP Jun, Bipolar disorder, unspecifie d F31.9 SP [facility] [address] [facility] [id number] [address] [place] [address] SP Jun, Mood disorder F39 SP [facility] [address] [facility] [id number] [address] [place] [phone] SP Jun, SP [facility] [address] [facility] [id number] [address] [place] [address] SP May, Fissure in skin of foot R23. 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, unspecified retirement insulin use status E11.40 [facility] [address] [facility] [id number] [address] [place] [phone] SP May, Mood disorder F39 SP [facility] [address] [facility] [id number] [address] [place] [phone] SP Apr, SP [facility] [address] [facility] [id number] [address] [place] [phone] SP Apr, Cough R05 and Tobacco use Z7 2.0 SP [facility] [address] [facility] [id number] [address] [place] [phone] SP Apr, Cough R05 and Tobacco use Z7 2.0 SP [facility] [address] [facility] [id number] [address] [place] [phone] SP Apr, Mood disorder F39 SP [facility] [address] [facility] [id number] [address] [place] [phone] SP Apr, Low back pain M54.5 SP [facility] [address] [facility] [id number] [address] [place] [id number] SP Apr, Uncontrolled type 2 diabetes mellitus with hyperglycemia, without SPlong-term current use of insulin E11.65 [facility] [address] [facility] [id number] [address] [place] [address] SP Apr, Uncontrolled type 2 diabetes mellitus with hyperglycemia, without SPlong-term current use of insulin E11.65 [facility] [address] [facility] [id number] [address] [place] [phone] SP Mar, Bipolar disorder, unspecifie d F31.9 SP [facility] [address] [facility] [id number] [address] [place] [phone] SP Mar, [facility] [address] [facility] [id number] [address] [place] [phone] SP Mar, Bipolar disorder, unspecifie d F31.9 SP [facility] [address] [facility] [id number] [address] [place] [phone] SP Mar, Mood disorder F39 SP [facility] [address] [facility] [id number] [address] [place] [phone] SP Feb, SP [facility] [address] [facility] [id number] [address] [place] [phone] SP Feb, SP [facility] [address] [facility] [id number] [address] [place] [address] SP Feb, [place] [address] [facility] [id number] [address] [place] [address] SP Feb, Bipolar disorder, unspecifie d F31.9 SP [place] [address] [facility] [id number] [address] [place] [address] SP Feb, Uncontrolled type 2 diabetes mellitus with hyperglycemia, without SPlong-term current use of insulin E11.65 ; Encounter for immunization Z23 ; Vasovagal syncope R55 and Low back pain M54.5 [place] [address] [facility] [id number] [address] [place] [address] SP Jan, Bipolar disorder, unspecifie d F31.9 [place] [address] [facility] [id number] [address] [place] [address] SP Jan, [place] [address] [place] [id number] [address] [place] [address] SP Jan, Fatigue, unspecified type R5 3.83 ; Nocturnal hypoxia G47.34 ; SP D72.829 ; Other chronic gastritis without hemorrhage K29.50 ; Uncontrolled type 2 diabetes mellitus with hyperglycemia, without long-term current use of insulin E11.65 ; Alternating constipation and diarrhea R19.8 and Chronic obstructive pulmonary disease, unspecified COPD type J44.9 [place] [address] [facility] [id number] [address] [place] [address] SP Jan, [place] [address] [facility] [id number] [address] [place] [address] SP Jan, Leukocytosis D72.829 [place] [address] [facility] [id number] [address] [place] [address] SP Jan, Mood disorder F39 [place] [address] [facility] [id number] [address] [place] [address] SP Dec, Bipolar disorder, unspecifie d F31.9 [place] [address] [facility] [id number] [address] [place] [address] SP Dec, SP [facility] [address] [facility] [id number] [address] [place] [address] SP Dec, Acute gastritis without blee ding K29.00 [facility] [address] [facility] [id number] [address] [place] [address] SP Dec, Leukocytosis D72.829 [facility] [address] [facility] [id number] [address] [place] [phone] SP Dec, [facility] [address] [facility] [id number] [address] [place] [address] SP Dec, Dental examination Z01.20 [facility] [address] [facility] [id number] [address] [place] [address] SP Dec, [facility] [address] [facility] [id number] [address] [place] [address] SP Dec, Leukocytosis D72.829 [place] [address] [place] [id number] [address] [place] [address] SP Dec, Uncontrolled type 2 diabetes mellitus with hyperglycemia, without SPlong-term current use of insulin E11.65 [facility] [address] [place] [id number] [address] [place] [address] SP Nov, Dental examination Z01.20 [facility] [address] [place] [id number] [address] [place] [address] SP Nov, [facility] [address] [place] [id number] [address] [place] [address] SP Nov, Major depressive disorder, r ecurrent episode, moderate F33.1 [facility] [address] [facility] [id number] [address] [place] [address] SP Nov, Leukocytosis D72.829 [facility] [address] [facility] [id number] [address] [place] [address] SP Nov, Mood disorder F39 [facility] [address] [place] [id number] [address] [place] [address] SP Nov, Other osteoarthritis of spin e, cervical region M47.892 and SP type 2 diabetes mellitus with hyperglycemia, without long-term current use of insulin E11.65 [place] [address] [facility] [id number] [address] [place] [address] SP Nov, Leukocytosis D72.829 and Sapphire vated serum glucose R73.9 [place] [address] [facility] [id number] [address] [place] [address] SP October, Elevated serum glucose R73.9 [place] [address] [facility] [id number] [address] [place] [address] SP October, Mood disorder F39 [place] [address] [facility] [id number] [address] [place] [address] SP Sep, Major depressive disorder, r ecurrent episode, moderate F33.1 [place] [address] [facility] [id number] [address] [place] [address] SP Sep, Mood disorder F39 [place] [address] [facility] [id number] [address] [place] [phone] SP Aug, [place] [address] [facility] [id number] [address] [place] [address] SP Jul, Major depressive disorder, r ecurrent episode, moderate F33.1 [place] [address] [facility] [id number] [address] [place] [address] SP Jul, Mood disorder F39 [place] [address] [facility] [id number] [address] [place] [address] SP Jul, [place] [address] [facility] [id number] [address] [place] [address] SP Jul, History of NE (myocardial in farction) I25.2 ; Hyperlipidemia SP ; Prediabetes R73.09 ; Chronic obstructive pulmonary disease, unspecified COPD type J44.9 and Tobacco use Z72.0 [facility] [address] [id number] [address] [place] [address] SP Jun, SP [facility] [address] [facility] [id number] [address] [place] [address] SP Jun, Mood disorder F39 SP [facility] [address] [facility] [id number] [address] [place] [phone] SP Jun, SP [facility] [address] [facility] [id number] [address] [place] [phone] SP May, Major depressive disorder, r ecurrent episode, moderate F33.1 and SP insomnia F51.01 [place] [address] [facility] [id number] [address] [place] [address] SP May, Mood disorder F39 SP [place] [address] [facility] [id number] [address] [place] [id number] SP Apr, SP [facility] [address] [facility] [id number] [address] [place] [phone] SP Apr, Mood disorder F39 SP [facility] [address] [facility] [id number] [address] [place] [address] SP Apr, SP [facility] [address] [facility] [id number] [address] [place] [address] SP Apr, SP [facility] [address] [facility] [id number] [address] [place] [phone] SP Apr, Chronic obstructive pulmonar y disease, unspecified COPD type SP and Non-seasonal allergic rhinitis due to other allergic trigger J30.89 [facility] [address] [facility] [id number] [address] [place] [address] SP Apr, Mood disorder F39 SP [facility] [address] [facility] [id number] [address] [place] [address] SP Apr, Major depressive disorder, r ecurrent episode, moderate F33.1 and SP (post-traumatic stress disorder) F43.10 [place] [address] [id number] [address] [place] [address] SP Apr, SP [facility] [address] [id number] [address] [place] [address] SP Apr, SP [facility] [address] [id number] [address] [place] [address] SP Apr, Chest pain, unspecified type R07.9 ; Chronic obstructive SP disease, unspecified COPD type J44.9 ; Hyperlipidemia, unspecified hyperlipidemia type E78.5 and Tobacco use Z72.0 [facility] [address] [id number] [address] [place] [address] SP Mar, Mood disorder F39 SP [facility] [address] [id number] [address] [place] [address] SP Mar, Mood disorder F39 SP [facility] [address] [id number] [address] [place] [address] SP Mar, Other osteoarthritis of spin e, cervical region M47.892 SP [facility] [address] [id number] [address] [place] [address] SP Mar, Tear of right rotator cuff, unspecified tear extent M75.101 SP [facility] [address] [id number] [address] [place] [id number] SP Mar, SP [facility] [address] [id number] [address] [place] [id number] SP Mar, Bipolar II disorder F31.81 SP [facility] [address] [id number] [address] [place] [address] SP Mar, SP [facility] [address] [id number] [address] [place] [address] SP Feb, Impingement syndrome of righ t shoulder M75.41 ; Tear of right SP cuff, unspecified tear extent M75.101 and Loose body in right elbow M24.021 [facility] [address] [id number] [address] [place] [phone] SP Jan, SP [facility] [address] [facility] [id number] [address] [place] [phone] SP Jan, SP [facility] [address] [facility] [id number] [address] [place] [address] SP Jan, Prediabetes R73.09 ; Other c hronic pain G89.29 and Pain in right SP M25.511 [facility] [address] [id number] [address] [place] [phone] SP Dec, SP [facility] [address] [facility] [id number] [address] [place] [phone] SP Dec, Heartburn R12 and Chest disc omfort R07.89 SP [place] [address] [facility] [id number] [address] [place] [id number] SP Dec, Impingement syndrome of righ t shoulder M75.41 and 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, 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 [facility] [address] [facility] [id number] [address] [place] [id number] SP Nov, SP [facility] [address] [facility] [id number] [address] [place] [id number] SP Nov, Leukocytosis D72.829 SP [facility] [address] [facility] [id number] [address] [place] [id number] SP Nov, SP [facility] [address] [facility] [id number] [address] [place] [phone] SP Nov, Enlarged lymph node R59.9 ; Chronic obstructive pulmonary SP unspecified COPD type J44.9 ; Low back pain M54.5 ; Neuropathy G62.9 and Closed nondisplaced fracture of sternal end of right clavicle, sequela S42.017S [facility] [address] [facility] [id number] [address] [place] [id number] SP October, SP [place] [address] [facility] [id number] [address] [place] [phone] SP October, SP [place] [address] [facility] [id number] [address] [place] [phone] SP Sep, SP [place] [address] [facility] [id number] [address] [place] [phone] SP Aug, Double vision H53.2 ; Occipi greg headache R51 ; Chronic SP pulmonary disease, unspecified COPD type J44.9 and Gastroesophageal reflux disease, esophagitis presence not specified K21.9 [place] [address] [facility] [id number] [address] [place] [id number] SP Aug, SP [place] [address] [place] [id number] [address] [place] [phone] SP Jul, Enlarged lymph node in neck R59.0 SP [place] [address] [place] [id number] [address] [place] [phone] SP Jul, SP [place] [address] [place] [id number] [address] [place] [phone] SP Jul, Chronic obstructive pulmonar y disease, unspecified COPD type SP ; Tobacco use Z72.0 ; Leukocytosis D72.829 ; Hyperlipidemia E78.5 and Neck abscess L02.11 [place] [address] [place] [id number] [address] [place] [phone] SP Jun, Shortness of breath R06.02 SP [place] [address] [facility] [id number] [address] [place] [phone] SP May, Leukocytosis D72.829 and Susan rtness of breath R06.02 SP [place] [address] [facility] [id number] [address] [place] [phone] SP May, Low back pain M54.5 ; Hyperl ipidemia E78.5 ; Leukocytosis D72.829 SP; Other osteoarthritis of spine, cervical region M47.892 and Shortness of breath R06.02 [place] [address] [facility] [id number] [place] [phone] SP Feb, Chest pain 786.50 ; Tobacco use 305.1 ; Back pain 724.5 and SP 272.4 [place] [address] [place] [id number] [place] [phone] SP Jan, SP [place] [address] [place] [id number] [place] [phone] SP Jan, Chronic low back pain 724.2 and Degenerative arthritis of SP spine 721.0 [place] [address] [place] [id number] [place] [phone] SP Jan, Chronic low back pain 724.2 and Neck pain 723.1 SP [place] [address] [place] [id number] [place] [phone] SP Dec, Chronic low back pain 724.2 and Neck pain 723.1 SP [place] [address] [phone] SP Nov, Chest pain 786.50 ; Dyspnea 786.09 ; Tobacco use 305.1 and Back SP 724.5 [place] [address] [id number] SP Nov, SP [place] [address] [place] [id number] [place] [phone] SP Nov, Disability examination V68.0 1 and Muscle pain 729.1 SP [place] [address] [place] [id number] [place] [phone] SP October, History of NE (myocardial in farction) 412 ; Hyperlipidemia LDL SP < 100 272.4 ; Leukocytosis 288.60 and Glucose intolerance (pre-diabetes) 790.29 [place] [address] [place] [id number] [place] [phone] SP October, Chest pain 786.50 ; Chronic low back pain 724.2 ; History of NE SP infarction) 412 and Neuropathy 355.9 [facility] [address] [facility] [id number] [address] [place] [address] SP October, Chronic low back pain 724.2 ; Chest pain 786.50 ; History of NE SP infarction) 412 and Neuropathy 355.9 IMMUNIZATIONS No Known Immunizations SOCIAL HISTORY Never Assessed REASON FOR VISIT PLAN OF CARE VITAL SIGNS MEDICATIONS Unknown [...]
--- OUTSIDE RECORDS SUMMARY | 2019-04-11 23:14 | XMS REPORT ---
Author Author KINJALDORIS MARIE POS Organization [facility] SP Address [address] [place] [address] SP Care Team Providers Care Note Taker Name Role Phone POS DORIS LAYTON Unavailable SP PROBLEMS Type Condition ICD9-CM Code [id number] Code Onset Dates Condition S tatus SNOMED POS Problem Enlarged lymph node R59.9 Active [id number] POS Problem Hyperlipidemia, unspecified hyperlipidemia type E7 8.5 Active SP Problem Tear of right rotator cuff, unspecified tear extent M75.101 Active SP Problem Other chronic pain G89.29 Active 8 5208775 SP Problem Internal hemorrhoids K64.8 Active 41662751 SP Problem Nocturnal hypoxia G47.34 Active 38 4102427 SP Problem Panlobular emphysema J43.1 Active 4369987 SP Problem Hyperplastic colonic polyp, unspecified part of colon K63.5 Active SP Problem Non-seasonal allergic rhinitis due to other allergic iggy er J30.89 SP 63641689 SP Problem Mood disorder F39 Active 477667 05 SP Problem Bipolar disorder, unspecified F31.9 Active 16912893 SP Problem Uncontrolled type 2 diabetes mellitus with hyperglycemia, without long- SP current use of insulin E11.65 Active 44 0905983 SP Problem GERD with esophagitis K21.0 Active 553905597 SP Problem Other osteoarthritis of spine, cervical region M47 .892 Active SP Problem Hiatal hernia K44.9 Active 994414 09 SP Problem External hemorrhoids K64.4 Active 06029929 SP Problem Leukocytosis D72.829 Active 1724809 06 SP Problem Hyperlipidemia E78.5 Active 59981 004 SP Problem History of MT (myocardial infarction) I25.2 Active 551087980 SP Problem Neuropathy G62.9 Active 017870020 SP Problem Other chronic gastritis without hemorrhage K29.50 Active 2397772 SP Problem Low back pain M54.5 Active 174606 005 SP Problem Tobacco use Z72.0 Active 05929228 0 SP ALLERGIES No Information ENCOUNTERS Encounter Location Date Diagnosis POS [facility] [address] [facility] [id number] [address] [place] [address] SP Jun, SP [facility] [address] [facility] [id number] [address] [place] [phone] SP Apr, SP [facility] [address] [place] [id number] [address] [place] [phone] SP Apr, SP [facility] [address] [facility] [id number] [place] [address] SP Apr, SP [facility] [address] [place] [id number] [place] [phone] SP Apr, SP [facility] [address] [place] [id number] [place] [address] SP Mar, Herpes zoster without compli cation B02.9 SP [facility] [address] [place] [id number] [place] [phone] SP Mar, SP [facility] [address] [place] [id number] [place] [phone] SP Mar, SP [facility] [address] [place] [id number] [address] [place] [address] SP Mar, Uncontrolled type 2 diabetes mellitus with hyperglycemia, without SPlong-term current use of insulin E11.65 [facility] [address] [place] [id number] [address] [place] [address] SP Mar, Fall (on) (from) other stair s and steps, initial encounter SP ; Lumbar contusion, initial encounter S30.0XXA ; Elbow pain, right M25.521 and Thoracic spine pain M54.6 [facility] [address] [place] [id number] [place] [phone] SP Mar, Mood disorder F39 SP [facility] [address] [place] [id number] [address] [place] [address] SP Mar, SP [facility] [address] [id number] [address] [place] [address] SP Mar, Leukocytosis D72.829 SP [facility] [address] [id number] [address] [place] [address] SP Mar, SP [facility] [address] [id number] [address] [place] [address] SP Mar, Other chronic gastritis with out hemorrhage K29.50 SP [facility] [address] [id number] [address] [place] [phone] SP Mar, Uncontrolled type 2 diabetes mellitus with hyperglycemia, without SPlong-term current use of insulin E11.65 ; Low back pain M54.5 ; Other osteoarthritis of spine, cervical region M47.892 ; Panlobular emphysema J43.1 ; Leukocytosis D72.829 and Lumbar back pain with radiculopathy affecting lower extremity M54.16 [facility] [address] [facility] [id number] [address] [place] [phone] SP Feb, SP [facility] [address] [id number] [address] [place] [phone] SP Feb, SP [facility] [address] [facility] [id number] [address] [place] [phone] SP Feb, Uncontrolled type 2 diabetes mellitus with hyperglycemia, without SPlong-term current use of insulin E11.65 [facility] [address] [id number] [address] [place] [phone] SP Feb, Mood disorder F39 SP [facility] [address] [id number] [address] [place] [phone] SP Jan, SP [facility] [address] [id number] [address] [place] [phone] SP Jan, Mood disorder F39 SP [facility] [address] [id number] [address] [place] [phone] SP Jan, SP [facility] [address] [id number] [address] [place] [address] SP Dec, Bipolar disorder, unspecifie d F31.9 SP [facility] [address] [facility] [id number] [address] [place] [phone] SP Dec, SP [facility] [address] [facility] [id number] [address] [place] [phone] SP Dec, SP [facility] [address] [facility] [id number] [address] [place] [phone] SP Dec, SP [facility] [address] [facility] [id number] [address] [place] [phone] SP Dec, Mood disorder F39 SP [facility] [address] [facility] [id number] [address] [place] [address] SP Nov, Bipolar disorder, unspecifie d F31.9 SP [facility] [address] [place] [id number] [place] [address] SP Nov, SP [facility] [address] [facility] [id number] [address] [place] [address] SP Nov, Pain in left knee M25.562 ; Other chronic pain G89.29 ; SP E78.5 ; Leukocytosis D72.829 ; Other osteoarthritis of spine, cervical region M47.892 ; Tobacco use Z72.0 and Uncontrolled type 2 diabetes mellitus with hyperglycemia, without long-term current use of insulin E11.65 [facility] [address] [facility] [id number] [address] [place] [phone] SP Nov, SP [facility] [address] [facility] [id number] [address] [place] [address] SP Nov, SP [facility] [address] [facility] [id number] [address] [place] [phone] SP October, SP [facility] [address] [facility] [id number] [address] [place] [phone] SP October, Low back pain M54.5 SP [facility] [address] [facility] [id number] [address] [place] [phone] SP Sep, SP [facility] [address] [facility] [id number] [address] [place] [address] SP Sep, SP [facility] [address] [facility] [id number] [address] [place] [address] SP Sep, Leukocytosis D72.829 SP [facility] [address] [facility] [id number] [address] [place] [address] SP Sep, SP [facility] [address] [facility] [id number] [address] [place] [phone] SP Sep, SP [facility] [address] [facility] [id number] [address] [place] [address] SP Sep, SP [facility] [address] [facility] [id number] [address] [place] [address] SP Aug, Low back pain M54.5 SP [facility] [address] [facility] [id number] [address] [place] [address] SP Aug, Bipolar disorder, unspecifie d F31.9 SP [facility] [address] [facility] [id number] [address] [place] [phone] SP Aug, SP [facility] [address] [facility] [id number] [address] [place] [address] SP Aug, SP [facility] [address] [facility] [id number] [address] [place] [address] SP Aug, Uncontrolled type 2 diabetes mellitus with hyperglycemia, without SPlong-term current use of insulin E11.65 ; Non-healing surgical wound, initial encounter T81.89XA ; Cellulitis of abdominal wall L03.311 ; Hyperlipidemia E78.5 ; Chronic obstructive pulmonary disease, unspecified COPD type J44.9 and Tobacco use Z72.0 [facility] [address] [facility] [id number] [address] [place] [address] SP Aug, [facility] [address] [id number] [address] [place] [phone] SP Jul, SP [facility] [address] [facility] [id number] [address] [place] [phone] SP Jul, SP [facility] [address] [facility] [id number] [address] [place] [address] SP Jul, Type 2 diabetes mellitus wit h diabetic neuropathy, unspecified SP term insulin use status E11.40 [facility] [address] [facility] [id number] [address] [place] [address] SP Jun, Bipolar disorder, unspecifie d F31.9 SP [facility] [address] [facility] [id number] [address] [place] [phone] SP Jun, SP [facility] [address] [facility] [id number] [address] [place] [address] SP Jun, Bipolar disorder, unspecifie d F31.9 SP [facility] [address] [facility] [id number] [address] [place] [phone] SP Jun, Mood disorder F39 SP [facility] [address] [facility] [id number] [address] [place] [phone] SP Jun, SP [facility] [address] [facility] [id number] [address] [place] [address] SP May, Fissure in skin of foot R23. 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, unspecified snf insulin use status E11.40 [facility] [address] [facility] [id number] [address] [place] [phone] SP May, Mood disorder F39 SP [facility] [address] [facility] [id number] [address] [place] [phone] SP Apr, SP [facility] [address] [facility] [id number] [address] [place] [address] SP Apr, Cough R05 and Tobacco use Z7 2.0 SP [facility] [address] [facility] [id number] [address] [place] [phone] SP Apr, Cough R05 and Tobacco use Z7 2.0 SP [facility] [address] [facility] [id number] [address] [place] [phone] SP Apr, Mood disorder F39 SP [facility] [address] [facility] [id number] [address] [place] [address] SP Apr, Low back pain M54.5 SP [facility] [address] [facility] [id number] [address] [place] [phone] SP Apr, Uncontrolled type 2 diabetes mellitus with hyperglycemia, without SPlong-term current use of insulin E11.65 [facility] [address] [facility] [id number] [address] [place] [address] SP Apr, Uncontrolled type 2 diabetes mellitus with hyperglycemia, without SPlong-term current use of insulin E11.65 [facility] [address] [facility] [id number] [address] [place] [phone] SP Mar, Bipolar disorder, unspecifie d F31.9 SP [facility] [address] [facility] [id number] [address] [place] [phone] SP Mar, [facility] [address] [facility] [id number] [address] [place] [phone] SP Mar, Bipolar disorder, unspecifie d F31.9 SP [facility] [address] [facility] [id number] [address] [place] [address] SP Mar, Mood disorder F39 SP [facility] [address] [facility] [id number] [address] [place] [address] SP Feb, SP [facility] [address] [facility] [id number] [address] [place] [phone] SP Feb, SP [facility] [address] [facility] [id number] [address] [place] [address] SP Feb, [place] [address] [facility] [id number] [address] [place] [address] SP Feb, Bipolar disorder, unspecifie d F31.9 SP [place] [address] [facility] [id number] [address] [place] [address] SP Feb, Uncontrolled type 2 diabetes mellitus with hyperglycemia, without SPlong-term current use of insulin E11.65 ; Encounter for immunization Z23 ; Vasovagal syncope R55 and Low back pain M54.5 [place] [address] [facility] [id number] [address] [place] [address] SP Jan, Bipolar disorder, unspecifie d F31.9 [place] [address] [facility] [id number] [address] [place] [address] SP Jan, [place] [address] [place] [id number] [place] [address] SP Jan, Fatigue, unspecified type R5 3.83 ; Nocturnal hypoxia G47.34 ; SP D72.829 ; Other chronic gastritis without hemorrhage K29.50 ; Uncontrolled type 2 diabetes mellitus with hyperglycemia, without long-term current use of insulin E11.65 ; Alternating constipation and diarrhea R19.8 and Chronic obstructive pulmonary disease, unspecified COPD type J44.9 [place] [address] [facility] [id number] [address] [place] [address] SP Jan, [place] [address] [facility] [id number] [address] [place] [address] SP Jan, Leukocytosis D72.829 [place] [address] [facility] [id number] [address] [place] [address] SP Jan, Mood disorder F39 [place] [address] [facility] [id number] [address] [place] [address] SP Dec, Bipolar disorder, unspecifie d F31.9 [place] [address] [facility] [id number] [address] [place] [address] SP Dec, SP [facility] [address] [facility] [id number] [address] [place] [address] SP Dec, Acute gastritis without blee ding K29.00 [facility] [address] [facility] [id number] [address] [place] [address] SP Dec, Leukocytosis D72.829 [facility] [address] [facility] [id number] [address] [place] [address] SP Dec, [facility] [address] [facility] [id number] [address] [place] [address] SP Dec, Dental examination Z01.20 [facility] [address] [facility] [id number] [address] [place] [address] SP Dec, [facility] [address] [facility] [id number] [address] [place] [address] SP Dec, Leukocytosis D72.829 [place] [address] [place] [id number] [place] [address] SP Dec, Uncontrolled type 2 diabetes mellitus with hyperglycemia, without SPlong-term current use of insulin E11.65 [facility] [address] [place] [id number] [place] [address] SP Nov, Dental examination Z01.20 [facility] [address] [place] [id number] [address] [place] [address] SP Nov, [facility] [address] [place] [id number] [place] [phone] SP Nov, Major depressive disorder, r ecurrent episode, moderate F33.1 [facility] [address] [facility] [id number] [address] [place] [address] SP Nov, Leukocytosis D72.829 [facility] [address] [facility] [id number] [address] [place] [address] SP Nov, Mood disorder F39 [facility] [address] [place] [id number] [place] [address] SP Nov, Other osteoarthritis of spin e, cervical region M47.892 and SP type 2 diabetes mellitus with hyperglycemia, without long-term current use of insulin E11.65 [place] [address] [facility] [id number] [address] [place] [address] SP Nov, Leukocytosis D72.829 and Sapphire vated serum glucose R73.9 [place] [address] [facility] [id number] [address] [place] [address] SP October, Elevated serum glucose R73.9 [place] [address] [facility] [id number] [address] [place] [phone] SP October, Mood disorder F39 [place] [address] [facility] [id number] [address] [place] [address] SP Sep, Major depressive disorder, r ecurrent episode, moderate F33.1 [place] [address] [facility] [id number] [address] [place] [address] SP Sep, Mood disorder F39 [place] [address] [facility] [id number] [address] [place] [address] SP Aug, [place] [address] [facility] [id number] [address] [place] [address] SP Jul, Major depressive disorder, r ecurrent episode, moderate F33.1 [place] [address] [facility] [id number] [address] [place] [phone] SP Jul, Mood disorder F39 [place] [address] [facility] [id number] [address] [place] [address] SP Jul, [place] [address] [facility] [id number] [address] [place] [address] SP Jul, History of MT (myocardial in farction) I25.2 ; Hyperlipidemia SP ; Prediabetes R73.09 ; Chronic obstructive pulmonary disease, unspecified COPD type J44.9 and Tobacco use Z72.0 [facility] [address] [id number] [address] [place] [phone] SP Jun, SP [facility] [address] [facility] [id number] [address] [place] [phone] SP Jun, Mood disorder F39 SP [facility] [address] [facility] [id number] [address] [place] [address] SP Jun, SP [facility] [address] [facility] [id number] [address] [place] [address] SP May, Major depressive disorder, r ecurrent episode, moderate F33.1 and SP insomnia F51.01 [place] [address] [facility] [id number] [address] [place] [address] SP May, Mood disorder F39 SP [place] [address] [facility] [id number] [address] [place] [phone] SP Apr, SP [facility] [address] [facility] [id number] [address] [place] [phone] SP Apr, Mood disorder F39 SP [facility] [address] [facility] [id number] [address] [place] [phone] SP Apr, SP [facility] [address] [facility] [id number] [address] [place] [phone] SP Apr, SP [facility] [address] [facility] [id number] [address] [place] [phone] SP Apr, Chronic obstructive pulmonar y disease, unspecified COPD type SP and Non-seasonal allergic rhinitis due to other allergic trigger J30.89 [facility] [address] [facility] [id number] [address] [place] [phone] SP Apr, Mood disorder F39 SP [facility] [address] [facility] [id number] [address] [place] [phone] SP Apr, Major depressive disorder, r ecurrent episode, moderate F33.1 and SP (post-traumatic stress disorder) F43.10 [place] [address] [id number] [address] [place] [phone] SP Apr, SP [facility] [address] [id number] [address] [place] [phone] SP Apr, SP [facility] [address] [id number] [address] [place] [phone] SP Apr, Chest pain, unspecified type R07.9 ; Chronic obstructive SP disease, unspecified COPD type J44.9 ; Hyperlipidemia, unspecified hyperlipidemia type E78.5 and Tobacco use Z72.0 [facility] [address] [id number] [address] [place] [phone] SP Mar, Mood disorder F39 SP [facility] [address] [id number] [address] [place] [phone] SP Mar, Mood disorder F39 SP [facility] [address] [id number] [address] [place] [phone] SP Mar, Other osteoarthritis of spin e, cervical region M47.892 SP [facility] [address] [id number] [address] [place] [phone] SP Mar, Tear of right rotator cuff, unspecified tear extent M75.101 SP [facility] [address] [id number] [address] [place] [phone] SP Mar, SP [facility] [address] [id number] [address] [place] [phone] SP Mar, Bipolar II disorder F31.81 SP [facility] [address] [id number] [address] [place] [phone] SP Mar, SP [facility] [address] [id number] [address] [place] [phone] SP Feb, Impingement syndrome of righ t shoulder M75.41 ; Tear of right SP cuff, unspecified tear extent M75.101 and Loose body in right elbow M24.021 [facility] [address] [id number] [address] [place] [phone] SP Jan, SP [facility] [address] [facility] [id number] [address] [place] [phone] SP Jan, SP [facility] [address] [facility] [id number] [address] [place] [phone] SP Jan, Prediabetes R73.09 ; Other c hronic pain G89.29 and Pain in right SP M25.511 [facility] [address] [id number] [address] [place] [phone] SP Dec, SP [facility] [address] [facility] [id number] [address] [place] [phone] SP Dec, Heartburn R12 and Chest disc omfort R07.89 [facility] [place] [address] 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 [id number] [address] [place] [phone] SP Nov, SP [facility] [address] [facility] [id number] [address] [place] [phone] SP Nov, Leukocytosis D72.829 SP [facility] [address] [facility] [id number] [address] [place] [phone] SP Nov, SP [facility] [address] [facility] [id number] [address] [place] [phone] SP Nov, Enlarged lymph node R59.9 ; Chronic obstructive pulmonary SP unspecified COPD type J44.9 ; Low back pain M54.5 ; Neuropathy G62.9 and Closed nondisplaced fracture of sternal end of right clavicle, sequela S42.017S [facility] [address] [facility] [id number] [address] [place] [phone] SP October, SP [place] [address] [facility] [id number] [address] [place] [phone] SP October, SP [place] [address] [facility] [id number] [address] [place] [phone] SP Sep, SP [place] [address] [facility] [id number] [address] [place] [phone] SP Aug, Double vision H53.2 ; Occipi greg headache R51 ; Chronic SP pulmonary disease, unspecified COPD type J44.9 and Gastroesophageal reflux disease, esophagitis presence not specified K21.9 [place] [address] [facility] [id number] [address] [place] [phone] SP Aug, SP [place] [address] [place] [id number] [address] [place] [phone] SP Jul, Enlarged lymph node in neck R59.0 SP [place] [address] [place] [id number] [address] [place] [phone] SP Jul, SP [place] [address] [place] [id number] [address] [place] [phone] SP Jul, Chronic obstructive pulmonar y disease, unspecified COPD type SP ; Tobacco use Z72.0 ; Leukocytosis D72.829 ; Hyperlipidemia E78.5 and Neck abscess L02.11 [place] [address] [place] [id number] [address] [place] [phone] SP Jun, Shortness of breath R06.02 SP [place] [address] [facility] [id number] [address] [place] [phone] SP May, Leukocytosis D72.829 and Susan rtness of breath R06.02 SP [place] [address] [facility] [id number] [address] [place] [phone] SP May, Low back pain M54.5 ; Hyperl ipidemia E78.5 ; Leukocytosis D72.829 SP; Other osteoarthritis of spine, cervical region M47.892 and Shortness of breath R06.02 [place] [address] [facility] [id number] [place] [phone] SP Feb, Chest pain 786.50 ; Tobacco use 305.1 ; Back pain 724.5 and SP 272.4 [place] [address] [place] [id number] [place] [phone] SP Jan, SP [place] [address] [place] [id number] [place] [phone] SP Jan, Chronic low back pain 724.2 and Degenerative arthritis of SP spine 721.0 [place] [address] [place] [id number] [place] [phone] SP Jan, Chronic low back pain 724.2 and Neck pain 723.1 SP [place] [address] [place] [id number] [place] [phone] SP Dec, Chronic low back pain 724.2 and Neck pain 723.1 SP [place] [address] [phone] SP Nov, Chest pain 786.50 ; Dyspnea 786.09 ; Tobacco use 305.1 and Back SP 724.5 [place] [address] [phone] SP Nov, SP [place] [address] [place] [id number] [place] [phone] SP Nov, Disability examination V68.0 1 and Muscle pain 729.1 SP [place] [address] [place] [id number] [place] [phone] SP October, History of MT (myocardial in farction) 412 ; Hyperlipidemia LDL SP < 100 272.4 ; Leukocytosis 288.60 and Glucose intolerance (pre-diabetes) 790.29 [place] [address] [place] [id number] [place] [phone] SP October, Chest pain 786.50 ; Chronic low back pain 724.2 ; History of MT SP infarction) 412 and Neuropathy 355.9 [facility] [address] [facility] [id number] [address] [place] [address] SP October, Chronic low back pain 724.2 ; Chest pain 786.50 ; History of MT SP infarction) 412 and Neuropathy 355.9 [facility] [...]
--- OUTSIDE RECORDS SUMMARY | 2019-04-11 23:15 | XMS REPORT ---
Author Author ARACELY BURGER POS Organization [facility] SP Address [address] [place] [address] SP Care Team Providers Care Neon Technician Name Role Phone POS BURGERARACELY Unavailable SP PROBLEMS Type Condition ICD9-CM Code [id number] Code Onset Dates Condition S tatus SNOMED POS Problem Enlarged lymph node R59.9 Active 20141322 POS Problem Hyperlipidemia, unspecified hyperlipidemia type E7 8.5 Active SP Problem Tear of right rotator cuff, unspecified tear extent M75.101 Active SP Problem Other chronic pain G89.29 Active 8 7565068 SP Problem Internal hemorrhoids K64.8 Active 92473974 SP Problem Nocturnal hypoxia G47.34 Active 38 7266934 SP Problem Panlobular emphysema J43.1 Active 0411600 SP Problem Hyperplastic colonic polyp, unspecified part of colon K63.5 Active SP Problem Non-seasonal allergic rhinitis due to other allergic iggy er J30.89 SP [id number] SP Problem Mood disorder F39 Active 118982 05 SP Problem Bipolar disorder, unspecified F31.9 Active 15453532 SP Problem Uncontrolled type 2 diabetes mellitus with hyperglycemia, without long- SP current use of insulin E11.65 Active 44 8121486 SP Problem GERD with esophagitis K21.0 Active 950530738 SP Problem Other osteoarthritis of spine, cervical region M47 .892 Active SP Problem Hiatal hernia K44.9 Active 380589 09 SP Problem External hemorrhoids K64.4 Active 74889050 SP Problem Leukocytosis D72.829 Active 4299736 06 SP Problem Hyperlipidemia E78.5 Active 18325 004 SP Problem History of [place] (myocardial infarction) I25.2 Active 759035755 SP Problem Neuropathy G62.9 Active 662149712 SP Problem Other chronic gastritis without hemorrhage K29.50 Active 7102444 SP Problem Low back pain M54.5 Active 695252 005 SP Problem Tobacco use Z72.0 Active 07860464 0 SP ALLERGIES Substance Reaction Event Type Date Status POS Peanut (Diagnostic) Unknown Drug Allergy Mar, Active SP Incruse Ellipta Unknown Drug Allergy Mar, Active SP Tetracycline HCl nausea and vomiting Drug Allergy Mar, Acti ve SP Spiriva HandiHaler Suicidal ideation Drug Allergy Mar, Acti ve SP Ampicillin anaphylaxis Drug Allergy Mar, Active SP strawberries Unknown Non Drug Allergy Mar, Active SP penicillin anaphylaxis Non Drug Allergy Mar, Active SP ENCOUNTERS Encounter Location Date Diagnosis POS [facility] [address] [facility] [id number] [address] [place] [phone] SP Jun, SP [facility] [address] [phone] SP Apr, SP [facility] [address] [facility] [id number] [place] [phone] SP Apr, SP [facility] [address] [place] [id number] [place] [address] SP Mar, Herpes zoster without compli cation B02.9 SP [facility] [address] [facility] [id number] [address] [place] [phone] SP Mar, SP [facility] [address] [place] [id number] [address] [place] [phone] SP Mar, SP [facility] [address] [place] [id number] [address] [place] [phone] SP Mar, Uncontrolled type 2 diabetes mellitus with hyperglycemia, without SPlong-term current use of insulin E11.65 [facility] [address] [facility] [id number] [address] [place] [address] SP Mar, Fall (on) (from) other stair s and steps, initial encounter SP ; Lumbar contusion, initial encounter S30.0XXA ; Elbow pain, right M25.521 and Thoracic spine pain M54.6 [facility] [address] [facility] [id number] [address] [place] [phone] SP Mar, Mood disorder F39 SP [facility] [address] [id number] [address] [place] [phone] SP Mar, SP [facility] [address] [id number] [address] [place] [phone] SP Mar, Leukocytosis D72.829 SP [facility] [address] [id number] [address] [place] [phone] SP Mar, SP [facility] [address] [id number] [address] [place] [phone] SP Mar, Other chronic gastritis with out hemorrhage K29.50 SP [facility] [address] [id number] [address] [place] [phone] SP Mar, Uncontrolled type 2 diabetes mellitus with hyperglycemia, without SPlong-term current use of insulin E11.65 ; Low back pain M54.5 ; Other osteoarthritis of spine, cervical region M47.892 ; Panlobular emphysema J43.1 ; Leukocytosis D72.829 and Lumbar back pain with radiculopathy affecting lower extremity M54.16 [facility] [address] [id number] [address] [place] [phone] SP Feb, SP [facility] [address] [id number] [address] [place] [phone] SP Feb, SP [facility] [address] [id number] [address] [place] [phone] SP Feb, Uncontrolled type 2 diabetes mellitus with hyperglycemia, without SPlong-term current use of insulin E11.65 [facility] [address] [id number] [address] [place] [phone] SP Feb, Mood disorder F39 SP [facility] [address] [id number] [address] [place] [phone] SP Jan, SP [facility] [address] [id number] [address] [place] [phone] SP Jan, Mood disorder F39 SP [facility] [address] [id number] [address] [place] [phone] SP Jan, SP [facility] [address] [facility] [id number] [address] [place] [phone] SP Dec, Bipolar disorder, unspecifie d F31.9 SP [facility] [address] [facility] [id number] [address] [place] [phone] SP Dec, SP [facility] [address] [facility] [id number] [address] [place] [phone] SP Dec, SP [facility] [address] [facility] [id number] [address] [place] [phone] SP Dec, SP [facility] [address] [facility] [id number] [address] [place] [phone] SP Dec, Mood disorder F39 SP [facility] [address] [facility] [id number] [address] [place] [phone] SP Nov, Bipolar disorder, unspecifie d F31.9 SP [facility] [address] [facility] [id number] [address] [place] [phone] SP Nov, SP [facility] [address] [facility] [id number] [address] [place] [phone] SP Nov, Pain in left knee M25.562 ; Other chronic pain G89.29 ; SP E78.5 ; Leukocytosis D72.829 ; Other osteoarthritis of spine, cervical region M47.892 ; Tobacco use Z72.0 and Uncontrolled type 2 diabetes mellitus with hyperglycemia, without long-term current use of insulin E11.65 [facility] [address] [facility] [id number] [address] [place] [phone] SP Nov, SP [facility] [address] [facility] [id number] [address] [place] [phone] SP Nov, SP [facility] [address] [facility] [id number] [address] [place] [phone] SP October, SP [facility] [address] [place] [id number] [address] [place] [phone] SP October, Low back pain M54.5 SP [facility] [address] [facility] [id number] [address] [place] [phone] SP Sep, SP [facility] [address] [facility] [id number] [address] [place] [phone] SP Sep, SP [facility] [address] [facility] [id number] [address] [place] [phone] SP Sep, Leukocytosis D72.829 SP [facility] [address] [id number] [address] [place] [phone] SP Sep, SP [facility] [address] [facility] [id number] [address] [place] [phone] SP Sep, SP [facility] [address] [facility] [id number] [address] [place] [phone] SP Sep, SP [facility] [address] [facility] [id number] [address] [place] [phone] SP Aug, Low back pain M54.5 SP [facility] [address] [facility] [id number] [address] [place] [phone] SP Aug, Bipolar disorder, unspecifie d F31.9 SP [facility] [address] [facility] [id number] [address] [place] [phone] SP Aug, SP [facility] [address] [facility] [id number] [address] [place] [phone] SP Aug, SP [facility] [address] [facility] [id number] [address] [place] [phone] SP Aug, Uncontrolled type 2 diabetes mellitus with hyperglycemia, without SPlong-term current use of insulin E11.65 ; Non-healing surgical wound, initial encounter T81.89XA ; Cellulitis of abdominal wall L03.311 ; Hyperlipidemia E78.5 ; Chronic obstructive pulmonary disease, unspecified COPD type J44.9 and Tobacco use Z72.0 [facility] [address] [facility] [id number] [address] [place] [phone] SP Aug, SP [facility] [address] [facility] [id number] [address] [place] [phone] SP Jul, SP [facility] [address] [facility] [id number] [address] [place] [phone] SP Jul, SP [facility] [address] [facility] [id number] [address] [place] [phone] SP Jul, Type 2 diabetes mellitus wit h diabetic neuropathy, unspecified SP term insulin use status E11.40 [facility] [address] [facility] [id number] [address] [place] [phone] SP Jun, Bipolar disorder, unspecifie d F31.9 SP [facility] [address] [facility] [id number] [address] [place] [phone] SP Jun, SP [facility] [address] [facility] [id number] [address] [place] [phone] SP Jun, Bipolar disorder, unspecifie d F31.9 SP [facility] [address] [facility] [id number] [address] [place] [phone] SP Jun, Mood disorder F39 SP [facility] [address] [facility] [id number] [address] [place] [phone] SP Jun, SP [facility] [address] [facility] [id number] [address] [place] [phone] SP May, Fissure in skin of foot R23. 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, unspecified fpc insulin use status E11.40 [facility] [address] [facility] [id number] [address] [place] [phone] SP May, Mood disorder F39 SP [facility] [address] [facility] [id number] [address] [place] [phone] SP Apr, SP [facility] [address] [id number] [address] [place] [phone] SP Apr, Cough R05 and Tobacco use Z7 2.0 SP [facility] [address] [facility] [id number] [address] [place] [phone] SP Apr, Cough R05 and Tobacco use Z7 2.0 SP [facility] [address] [facility] [id number] [address] [place] [phone] SP Apr, Mood disorder F39 SP [facility] [address] [facility] [id number] [address] [place] [phone] SP Apr, Low back pain M54.5 SP [facility] [address] [facility] [id number] [address] [place] [phone] SP Apr, Uncontrolled type 2 diabetes mellitus with hyperglycemia, without SPlong-term current use of insulin E11.65 [place] [address] [facility] [id number] [address] [place] [phone] SP Apr, Uncontrolled type 2 diabetes mellitus with hyperglycemia, without SPlong-term current use of insulin E11.65 [facility] [address] [facility] [id number] [address] [place] [phone] SP Mar, Bipolar disorder, unspecifie d F31.9 SP [facility] [address] [facility] [id number] [address] [place] [phone] SP Mar, SP [facility] [address] [facility] [id number] [address] [place] [phone] SP Mar, Bipolar disorder, unspecifie d F31.9 SP [facility] [address] [facility] [id number] [address] [place] [phone] SP Mar, Mood disorder F39 SP [facility] [address] [facility] [id number] [address] [place] [phone] SP Feb, SP [facility] [address] [facility] [id number] [address] [place] [phone] SP Feb, SP [place] [id number] [place] [phone] SP Feb, [place] [address] [place] [id number] [place] [phone] SP Feb, Bipolar disorder, unspecifie d F31.9 SP [place] [address] [phone] SP Feb, Uncontrolled type 2 diabetes mellitus with hyperglycemia, without SPlong-term current use of insulin E11.65 ; Encounter for immunization Z23 ; Vasovagal syncope R55 and Low back pain M54.5 [place] [address] [phone] SP Jan, Bipolar disorder, unspecifie d F31.9 SP [place] [address] [phone] SP Jan, SP [place] [address] [phone] SP Jan, Fatigue, unspecified type R5 3.83 ; Nocturnal hypoxia G47.34 ; SP D72.829 ; Other chronic gastritis without hemorrhage K29.50 ; Uncontrolled type 2 diabetes mellitus with hyperglycemia, without long-term current use of insulin E11.65 ; Alternating constipation and diarrhea R19.8 and Chronic obstructive pulmonary disease, unspecified COPD type J44.9 [place] [id number] [place] [phone] SP Jan, SP [place] [id number] [place] [phone] SP Jan, Leukocytosis D72.829 [place] [address] [phone] SP Jan, Mood disorder F39 SP [place] [address] [place] [id number] [address] [place] [phone] SP Dec, Bipolar disorder, unspecifie d F31.9 [facility] [address] [facility] [id number] [address] [place] [phone] SP Dec, [facility] [address] [facility] [id number] [address] [place] [address] SP Dec, Acute gastritis without blee ding K29.00 SP [facility] [address] [facility] [id number] [address] [place] [phone] SP Dec, Leukocytosis D72.829 [facility] [address] [facility] [id number] [address] [place] [phone] SP Dec, [facility] [address] [facility] [id number] [address] [place] [phone] SP Dec, Dental examination Z01.20 [facility] [address] [facility] [id number] [address] [place] [phone] SP Dec, [facility] [address] [facility] [id number] [address] [place] [phone] SP Dec, Leukocytosis D72.829 [facility] [address] [facility] [id number] [address] [place] [phone] SP Dec, Uncontrolled type 2 diabetes mellitus with hyperglycemia, without SPlong-term current use of insulin E11.65 [facility] [address] [facility] [id number] [address] [place] [phone] SP Nov, Dental examination Z01.20 [facility] [address] [facility] [id number] [address] [place] [phone] SP Nov, [facility] [address] [facility] [id number] [address] [place] [phone] SP Nov, Major depressive disorder, r ecurrent episode, moderate F33.1 [facility] [address] [facility] [id number] [address] [place] [phone] SP Nov, Leukocytosis D72.829 [facility] [address] [facility] [id number] [address] [place] [phone] SP Nov, Mood disorder F39 [facility] [address] [id number] [address] [place] [phone] SP Nov, Other osteoarthritis of spin e, cervical region M47.892 and SP type 2 diabetes mellitus with hyperglycemia, without long-term current use of insulin E11.65 [facility] [address] [facility] [id number] [address] [place] [phone] SP Nov, Leukocytosis D72.829 and Sapphire vated serum glucose R73.9 SP [facility] [address] [facility] [id number] [address] [place] [phone] SP October, Elevated serum glucose R73.9 SP [facility] [address] [facility] [id number] [address] [place] [phone] SP October, Mood disorder F39 [facility] [address] [facility] [id number] [address] [place] [phone] SP Sep, Major depressive disorder, r ecurrent episode, moderate F33.1 [facility] [address] [id number] [address] [place] [phone] SP Sep, Mood disorder F39 [facility] [address] [id number] [address] [place] [phone] SP Aug, [facility] [address] [facility] [id number] [address] [place] [phone] SP Jul, Major depressive disorder, r ecurrent episode, moderate F33.1 [facility] [address] [id number] [address] [place] [phone] SP Jul, Mood disorder F39 [facility] [address] [id number] [address] [place] [phone] SP Jul, [facility] [address] [facility] [id number] [address] [place] [phone] SP Jul, History of [place] (myocardial in farction) I25.2 ; Hyperlipidemia SP ; Prediabetes R73.09 ; Chronic obstructive pulmonary disease, unspecified COPD type J44.9 and Tobacco use Z72.0 [facility] [address] [id number] [address] [place] [phone] SP Jun, SP [facility] [address] [facility] [id number] [address] [place] [phone] SP Jun, Mood disorder F39 SP [facility] [address] [id number] [address] [place] [phone] SP Jun, SP [facility] [address] [facility] [id number] [address] [place] [phone] SP May, Major depressive disorder, r ecurrent episode, moderate F33.1 and SP insomnia F51.01 [facility] [address] [facility] [id number] [address] [place] [phone] SP May, Mood disorder F39 SP [facility] [address] [id number] [address] [place] [phone] SP Apr, SP [facility] [address] [id number] [address] [place] [phone] SP Apr, Mood disorder F39 SP [facility] [address] [facility] [id number] [address] [place] [phone] SP Apr, SP [facility] [address] [facility] [id number] [address] [place] [phone] SP Apr, SP [facility] [address] [id number] [address] [place] [phone] SP Apr, Chronic obstructive pulmonar y disease, unspecified COPD type SP and Non-seasonal allergic rhinitis due to other allergic trigger J30.89 [facility] [address] [id number] [address] [place] [phone] SP Apr, Mood disorder F39 SP [facility] [address] [facility] [id number] [address] [place] [id number] SP Apr, Major depressive disorder, r ecurrent episode, moderate F33.1 and SP (post-traumatic stress disorder) F43.10 [facility] [address] [id number] [address] [place] [id number] SP Apr, SP [facility] [address] [id number] [address] [place] [phone] SP Apr, SP [facility] [address] [facility] [id number] [address] [place] [id number] SP Apr, Chest pain, unspecified type R07.9 ; Chronic obstructive SP disease, unspecified COPD type J44.9 ; Hyperlipidemia, unspecified hyperlipidemia type E78.5 and Tobacco use Z72.0 [facility] [address] [id number] [address] [place] [id number] SP Mar, Mood disorder F39 SP [facility] [address] [id number] [address] [place] [id number] SP Mar, Mood disorder F39 [facility] [address] [id number] [address] [place] [id number] SP Mar, Other osteoarthritis of spin e, cervical region M47.892 SP [facility] [address] [id number] [address] [place] [phone] SP Mar, Tear of right rotator cuff, unspecified tear extent M75.101 SP [facility] [address] [id number] [address] [place] [phone] SP Mar, SP [facility] [address] [id number] [address] [place] [phone] SP Mar, Bipolar II disorder F31.81 SP [facility] [address] [id number] [address] [place] [phone] SP Mar, SP [facility] [address] [facility] [id number] [address] [place] [phone] SP Feb, Impingement syndrome of righ t shoulder M75.41 ; Tear of right SP cuff, unspecified tear extent M75.101 and Loose body in right elbow M24.021 [place] [id number] [id number] [address] [place] [phone] SP Jan, SP [facility] [address] [id number] [address] [place] [phone] SP Jan, SP [place] [address] [address] [facility] [id number] [address] [place] [phone] SP Jan, Prediabetes R73.09 ; Other c hronic pain G89.29 and Pain in right SP M25.511 [place] [address] [address] [facility] [id number] [address] [place] [phone] SP Dec, SP [place] [address] [address] [facility] [id number] [address] [place] [phone] SP Dec, Heartburn R12 and Chest disc omfort R07.89 SP [place] [address] [id number] [address] [place] [phone] SP Dec, Impingement syndrome of righ t shoulder M75.41 and 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, 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 [facility] [address] [facility] [id number] [address] [place] [phone] SP Nov, SP [place] [address] [address] [facility] [id number] [address] [place] [phone] SP Nov, Leukocytosis D72.829 SP [place] [address] [id number] [address] [place] [phone] SP Nov, [place] [address] [address] [facility] [id number] [address] [place] [phone] SP Nov, Enlarged lymph node R59.9 ; Chronic obstructive pulmonary SP unspecified COPD type J44.9 ; Low back pain M54.5 ; Neuropathy G62.9 and Closed nondisplaced fracture of sternal end of right clavicle, sequela S42.017S [place] [address] [address] [facility] [id number] [address] [place] [phone] SP October, SP [place] [address] [phone] SP October, SP [place] [address] [address] [place] [id number] [place] [phone] SP Sep, SP [place] [address] [phone] SP Aug, Double vision H53.2 ; Occipi greg headache R51 ; Chronic SP pulmonary disease, unspecified COPD type J44.9 and Gastroesophageal reflux disease, esophagitis presence not specified K21.9 [place] [address] [address] [place] [id number] [place] [phone] SP Aug, SP [place] [address] [phone] SP Jul, Enlarged lymph node in neck R59.0 SP [place] [address] [phone] SP Jul, SP [place] [address] [address] [place] [id number] [place] [phone] SP Jul, Chronic obstructive pulmonar y disease, unspecified COPD type SP ; Tobacco use Z72.0 ; Leukocytosis D72.829 ; Hyperlipidemia E78.5 and Neck abscess L02.11 [place] [address] [address] [place] [id number] [address] [place] [phone] SP Jun, Shortness of breath R06.02 SP [place] [address] [address] [place] [id number] [place] [phone] SP May, Leukocytosis D72.829 and Susan rtness of breath R06.02 SP [place] [address] [address] [place] [id number] [address] [place] [phone] SP May, Low back pain M54.5 ; Hyperl ipidemia E78.5 ; Leukocytosis D72.829 SP; Other osteoarthritis of spine, cervical region M47.892 and Shortness of breath R06.02 [place] [address] [phone] SP Feb, Chest pain 786.50 ; Tobacco use 305.1 ; Back pain 724.5 and SP 272.4 [place] [address] [phone] SP Jan, SP [place] [address] [phone] SP Jan, Chronic low back pain 724.2 and Degenerative arthritis of SP spine 721.[address] [phone] SP Jan, Chronic low back pain 724.2 and Neck pain 723.1 SP [place] [address] [address] SP Dec, Chronic low back pain 724.2 and Neck pain 723.[address] [phone] SP Nov, Chest pain 786.50 ; Dyspnea 786.09 ; Tobacco use 305.1 and Back SP 724.[address] [phone] SP Nov, SP [place] [address] [phone] SP Nov, Disability examination V68.0 1 and Muscle pain 729.[address] [phone] SP October, History of [place] (myocardial in farction) 412 ; Hyperlipidemia LDL SP < 100 272.4 ; Leukocytosis 288.60 and Glucose intolerance (pre-diabetes) 790.[address] [place] [address] SP October, Chest pain 786.50 ; Chronic low back pain 724.2 ; History of [place] SP infarction) 412 and Neuropathy 355.9 [facility] [address] [id number] [address] [address] SP October, Chronic low back pain 724.2 ; Chest pain 786.50 ; History of [place] SP infarction) 412 and Neuropathy 355.9 IMMUNIZATIONS Vaccine Route Administration Date Status POS SOLUMEDROL (UP TO 125 MG) IM Intramuscular Apr 04, 2018 Admin istered SP SOCIAL HISTORY Never Assessed REASON FOR VISIT Rash-was seen at the ER yesterday for cellutlitis on his chin, ear and side of h ead. He was started on antibiotics and this morning his mouth is swollen and bl isters on inside of lip and mouth.--RAEANN Snow PLAN OF CARE Activity Details POS SP Follow Up prn Reason: SP VITAL SIGNS Height 68 in 2018-04-04 POS Weight 234.2 lbs 2018-04-04 POS Temperature 97.8 degrees Fahrenheit 2018-04-04 POS Heart Rate 100 bpm 2018-04-04 POS Respiratory Rate 20 2018-04-04 POS BMI 35.61 kg/m2 2018-04-04 POS Blood pressure systolic 100 mmHg 2018-04-04 POS Blood pressure diastolic 76 mmHg 2018-04-04 POS MEDICATIONS Medication Instructions Dosage Frequency Start Date End Date Duration S tatus POS Seroquel 300 MG Orally at night 1.5 tabs Dec, 30 days Active SP Atorvastatin Calcium 40 MG Orally Once a day 1 tablet 24h 30 day(s) Active SP Singulair 10 mg Orally Once a day 1 tablet in the evening 24h 90 days Active SP Trazodone HCl 150 MG TAKE ONE-HALF TABLE T BY MOUTH AT NIGHT NEEDED FOR SP 30 Active SP Oxygen inhalation Portable 2 liters per minute Active SP Acyclovir 800 MG Orally Five times a day 1 tablet Mar, 10 day(s) SP BD Pen Needle Short U/F 31G X 8 MM as directed o nce per day use with Victoza SP Mar, Active SP Aspir-81 81 MG Orally Once a day 1 tablet 24h Active SP Nebulizer - Active SP Metformin HCl 1000 MG Orally Twice a day 1 tablet with meals 12h 90 Active SP Symbicort 160-4.5 MCG/ACT INHALE TWO PUFFS BY MOUTH TWICE DAILY 30 SP Albuterol Sulfate (2.5 MG/3ML) 0.083% Inhalation 4 times a day 3 ml 6 h SP Blood Glucose Monitor System w/Device DX- E 11.65 2 ti mes a day- 3 times weekly. SP test blood sugar 28 Nov, 2016 Active SP ZyrTEC 10 MG Orally Once a day 1 tablet 24h Active SP Victoza 18 MG/3ML Subcutaneous Once a day 1.8 mg 24h 12 Feb, 2018 Active SP Furosemide 40 MG Orally Once a day 1 tablet 24h Active SP Dexilant 60 MG TAKE ONE CAPSULE BY MOUTH ONCE DAILY 90 Active SP Proventil HFA 108 (90 Base) MCG/ACT Inhalation every 4 hrs 2 puffs as needed 4h SP Jul, 2015 Active SP Citalopram Hydrobromide 40 MG Orally Once a day 1 tablet 24h 30 days Active SP Carafate 1 GM Orally 4 times a day 1 tablet on an empty stomach 6h Active SP Metoprolol Succinate 50 MG Orally Once a day 1 capsule 24h Active SP Blood Glucose Test - and lancets. DX E11.65 2 times a day- 3 times weekly. test SPblood sugar 16 Active SP Baclofen 10 mg Orally once daily 1 tablet with food or milk as needed 24h 90 SP Active SP Potassium Chloride Patrica ER 20 MEQ Orally Once a day 1 tablet with food 24h SP Active SP Naproxen Orally 2 times a day 12h No t-Taking SP RESULTS No Results PROCEDURES Procedure Date Ordered Result Body Site POS SOLUMEDROL (UP TO 125 MG) Apr 04, 2018 SP THER/PROPH/DIAG INJ, SC/IM Apr 04, 2018 SP INSTRUCTIONS MEDICATIONS ADMINISTERED No Known Medications MEDICAL [...]
--- OUTSIDE RECORDS SUMMARY | 2019-04-11 23:23 | XMS REPORT | Continuity of Care Document ---
Author Organization Unknown POS Address Unknown SP Phone Unavailable SP Allergies Active Description Code Type Severity POS Reaction Onset Reported/Identified POS to Patient Clinical Status POS Yes Penicillins [id number] Drug Aller gy SP N/A 07/05/2017 SP Yes Penicillins [id number] Drug Aller gy SP CARDIAC ARREST 03/14/2019 SP SP Yes Tetracyclines [id number] Graham g Allergy SP Moderate N/V 03/14/2019 SP SP Yes ampicillin [id number] Drug Allerg y SP N/V, GI UPSET 03/14/2019 SP SP Yes erythromycin base [id number] Drug Allergy SP Mild N/V 03/14/2019 SP SP Medications There is no data. Problems Date Dx Coded Attending Type Code POS Diagnosed By POS 12/01/2014 ROBERTO CARLOS SMITH, PARISA K Ot SP SP 12/01/2014 ROBERTO CARLOS SMITH, PARISA K Ot SP SP 12/10/2014 THOMAS CARDDITH K Ot SP SP 12/10/2014 ROBERTO CARLOS SMITH, PARISA K Ot SP SP 12/22/2014 ROBERTO CARLOS SMITH, PARISA K Ot SP SP 12/22/2014 ROBERTO CARLOS SMITH, PARISA K Ot SP SP 12/22/2014 ARSH WEBER, SURYA Miramontes Ot 786. 09 SP SP 12/22/2014 ARSH WEBER, SURYA Miramontes Ot 786. 50 SP SP 12/25/2014 ARSH WEBER, SURYA Miramontes Ot 786. 09 SP SP 12/25/2014 ARSH WEBER, SURYA Miramontes Ot 786. 50 SP SP 01/27/2015 ROBERTO CARLOS SMITH, PARISA K Ot SP SP 01/27/2015 PARISA CARD K Ot SP SP 01/27/2015 ARSH WEBER, SURYA Miramontes Ot 786. 09 SP SP 01/27/2015 ARSH WEBER, SURYA Miramontes Ot 786. 50 SP SP 01/27/2015 KINJAL WEBER, DORIS N Ot 721 .0 SP SP 01/27/2015 KINJAL WEBER, DORIS Butcher Ot 724.02 SP SP 03/02/2015 SURYA CABAN MD Ot 786. 09 SP SP 03/02/2015 SURYA CABAN MD Ot 786. 50 SP SP 03/02/2015 DORIS LAYTON MD Ot 721 .0 SP SP 03/02/2015 DORIS LAYTON MD Ot 724.02 SP SP 03/06/2015 SURYA CABAN MD Ot 786. 09 SP SP 03/06/2015 SURYA CABAN MD Ot 786. 50 SP SP 03/06/2015 DORIS LAYTON MD Ot 721 .0 SP SP 03/06/2015 DORIS LAYTON MD Ot 724.02 SP SP 03/06/2015 YODIT WEBER, NATHANIEL Miramontes Ot M47.892 SP OTHER SPONDYLOSIS, CERVICAL REGION SP 03/06/2015 NATHANIEL MONSIVAIS MD Ot M47.896 SP OTHER SPONDYLOSIS, LUMBAR REGION SP 03/06/2015 NATHANIEL MONSIVAIS MD Ot M51. 36 SP INTERVERTEBRAL DISC DEGENERATION, SP 07/27/2015 DORIS LAYTON MD Ot L02.11 SP SP 07/29/2015 DORIS LAYTON MD Ot L02.11 SP SP 08/28/2015 DORIS LAYTON MD Ot H53 .2 SP SP 10/14/2015 DORIS LAYTON MD Ot R59 .0 SP ENLARGED LYMPH NODES SP 10/14/2015 PARISA CARD Ot SP RESPIRATORY ABNORM NEC SP 10/14/2015 PARISA CARD Ot SP CHEST PAIN NOS SP 10/14/2015 SURYA CABAN MD Ot 786. 09 SP ABNORM NEC SP 10/14/2015 SURYA CABAN MD Ot 786. 50 SP PAIN NOS SP 10/14/2015 DORIS LAYTON MD Ot R59 .0 SP ENLARGED LYMPH NODES SP 10/14/2015 DORIS LAYTON MD Ot H53 .2 SP SP 10/14/2015 DORIS LAYTON MD Ot L02.11 SP CUTANEOUS ABSCESS OF NECK SP 10/14/2015 DORIS LAYTON MD Ot H53 .2 SP SP 10/14/2015 SURYA CABAN MD Ot 786. 09 SP ABNORM NEC SP 10/14/2015 SURYA CABAN MD Ot 786. 50 SP PAIN NOS SP 10/14/2015 SURYA CABAN MD Ot 786. 09 SP ABNORM NEC SP 10/14/2015 SURYA CABAN MD Ot 786. 50 SP PAIN NOS SP 10/14/2015 DORIS LAYTON MD Ot 721 .0 SP SPONDYLOSIS SP 10/14/2015 DORIS LAYTON MD Ot 724.02 SP SPINAL STENOSIS, LUMBAR REG, W/OUT NEURO SP 12/31/2015 DORIS LAYTON MD Ot 721 .0 SP SPONDYLOSIS SP 12/31/2015 DORIS LAYTON MD Ot 724.02 SP SPINAL STENOSIS, LUMBAR REG, W/OUT NEURO SP 12/31/2015 SURYA CABAN MD Ot 786. 09 SP ABNORM NEC SP 12/31/2015 SURYA CABAN MD Ot 786. 50 SP PAIN NOS SP 12/31/2015 DORIS LAYTON MD Ot L02.11 SP CUTANEOUS ABSCESS OF NECK SP 12/31/2015 DORIS LAYTON MD Ot H53 .2 SP SP 12/31/2015 DORIS LAYTON MD Ot R59 .0 SP ENLARGED LYMPH NODES SP 02/09/2016 SURYA CABAN MD Ot 786. 09 SP ABNORM NEC SP 02/09/2016 SURYA CABAN MD Ot 786. 50 SP PAIN NOS SP 02/09/2016 DORIS LAYTON MD Ot 721 .0 SP SPONDYLOSIS SP 02/09/2016 DORIS LAYTON MD Ot 724.02 SP SPINAL STENOSIS, LUMBAR REG, W/OUT NEURO SP 02/09/2016 DORIS LAYTON MD Ot L02.11 SP CUTANEOUS ABSCESS OF NECK SP 02/09/2016 DORIS LAYTON MD Ot R59 .0 SP ENLARGED LYMPH NODES SP 02/09/2016 DORIS LAYTON MD Ot H53 .2 SP SP 02/11/2016 DORIS LAYTON MD Ot L02.11 SP CUTANEOUS ABSCESS OF NECK SP 02/11/2016 DORIS LAYTON MD Ot H53 .2 SP SP 02/11/2016 DORIS LAYTON MD Ot R59 .0 SP ENLARGED LYMPH NODES SP 02/11/2016 Ot M75.101 UN SP ROTATR-CUFF SPTEAR/RUPTR OF RIGHT [place] SP 02/11/2016 Ot M75.101 UN SP ROTATR-CUFF SPTEAR/RUPTR OF RIGHT LE[place] SP 02/11/2016 Ot M75.101 UN SP ROTATR-CUFF SPTEAR/RUPTR OF RIGHT [place] SP 03/01/2016 DORIS LAYTON MD Ot L02.11 SP CUTANEOUS ABSCESS OF NECK SP 03/01/2016 DORIS LAYTON MD Ot R59 .0 SP ENLARGED LYMPH NODES SP 03/01/2016 DORIS LAYTON MD Ot H53 .2 SP SP 03/01/2016 Ot M75.101 UN SP ROTATR-CUFF SPTEAR/RUPTR OF RIGHT [place] SP 03/23/2016 ARSH WEBER, SURYA Miramontes Ot 786. 09 SP ABNORM NEC SP 03/23/2016 SURYA CABAN MD Ot 786. 50 SP PAIN NOS SP 03/23/2016 DORIS LAYTON MD Ot 721 .0 SP SPONDYLOSIS SP 03/23/2016 DORIS LAYTON MD Ot 724.02 SP SPINAL STENOSIS, LUMBAR REG, W/OUT NEURO SP 03/23/2016 DORIS LAYTON MD Ot L02.11 SP CUTANEOUS ABSCESS OF NECK SP 03/23/2016 DORIS LAYTON MD Ot R59 .0 SP ENLARGED LYMPH NODES SP 03/23/2016 DORIS LAYTON MD Ot H53 .2 SP SP 03/23/2016 Ot M75.101 UN SP ROTATR-CUFF SPTEAR/RUPTR OF RIGHT [place] SP 03/23/2016 DORIS LAYTON MD Ot M47.892 SP OTHER SPONDYLOSIS, CERVICAL REGION SP 03/24/2016 DORIS LAYTON MD Ot M47.892 SP OTHER SPONDYLOSIS, CERVICAL REGION SP 04/07/2016 DORIS LAYTON MD Ot M47.892 SP OTHER SPONDYLOSIS, CERVICAL REGION SP 05/19/2016 JT FERNANDEZ DO Ot E66. 9 SP UNSPECIFIED SP 05/19/2016 JT FERNANDEZ DO Ot F41. 9 SP DISORDER, UNSPECIFIED SP 05/19/2016 JT FERNANDEZ DO Ot I20. 9 SP PECTORIS, UNSPECIFIED SP 05/19/2016 JT FERNANDEZ DO Ot J44. 9 SP OBSTRUCTIVE PULMONARY DISEASE, U SP 05/19/2016 JT FERNANDEZ DO Ot J45.909 SP UNSPECIFIED ASTHMA, UNCOMPLICATED SP 05/19/2016 JIM TOLENTINO JT Duarte Ot Z72. 0 SP USE SP 06/02/2016 JIM TOLENTINO JT Duarte Ot E66. 9 SP UNSPECIFIED SP 06/02/2016 JIM TOLENTINO JT Duarte Ot F41. 9 SP DISORDER, UNSPECIFIED SP 06/02/2016 JT FERNANDEZ DO Ot I20. 9 SP PECTORIS, UNSPECIFIED SP 06/02/2016 JT FERNANDEZ DO Ot J44. 9 SP OBSTRUCTIVE PULMONARY DISEASE, U SP 06/02/2016 JIM TOLENTINO JT Duarte Ot J45.909 SP UNSPECIFIED ASTHMA, UNCOMPLICATED SP 06/02/2016 JIM DO JT Duarte Ot Z72. 0 SP USE SP 06/03/2016 HUMZA, LARRY L TRACK PRODUCTION ENGINEER Ot R10.11 SP RIGHT UPPER QUADRANT PAIN SP 06/07/2016 HUMZA, LARRY L TRACK PRODUCTION ENGINEER Ot R10.11 SP RIGHT UPPER QUADRANT PAIN SP 06/08/2016 HUMZA, LARRY L TRACK PRODUCTION ENGINEER Ot R10.11 SP RIGHT UPPER QUADRANT PAIN SP 06/09/2016 HUMZA, LARRY L TRACK PRODUCTION ENGINEER Ot R10.11 SP RIGHT UPPER QUADRANT PAIN SP 06/09/2016 HUMZA, LARRY L TRACK PRODUCTION ENGINEER Ot R10.11 SP RIGHT UPPER QUADRANT PAIN SP 06/09/2016 HUMZA, LARRY L TRACK PRODUCTION ENGINEER Ot R10.11 SP RIGHT UPPER QUADRANT PAIN SP 06/16/2016 HUMZA, LARRY L TRACK PRODUCTION ENGINEER Ot R10.11 SP RIGHT UPPER QUADRANT PAIN SP 06/23/2016 DENISE WEBER, GALINA Ot K21.9 SPESOPHAGEAL REFLUX DISEASE WITHOUT SP 06/23/2016 DENISE WEBER, GALINA Ot Z01.81 8 SP FOR OTHER PREPROCEDURAL EXAMIN SP 06/29/2016 ARSH WEBER, SURYA Miramontes Ot 786. 09 SP ABNORM NEC SP 06/29/2016 ARSH WEBER, SURYA Miramontes Ot 786. 50 SP PAIN NOS SP 06/29/2016 DORIS LAYTON MD Ot 721 .0 SP SPONDYLOSIS SP 06/29/2016 DORIS LAYTON MD Ot 724.02 SP SPINAL STENOSIS, LUMBAR REG, W/OUT NEURO SP 06/29/2016 DORIS LAYTON MD Ot L02.11 SP CUTANEOUS ABSCESS OF NECK SP 06/29/2016 DORIS LAYTON MD Ot R59 .0 SP ENLARGED LYMPH NODES SP 06/29/2016 DORIS LAYTON MD Ot H53 .2 SP SP 06/29/2016 Ot M75.101 UN SP ROTATR-CUFF SPTEAR/RUPTR OF RIGHT [place] SP 06/29/2016 DORIS LAYTON MD Ot M47.892 SP OTHER SPONDYLOSIS, CERVICAL REGION SP 06/29/2016 JT FERNANDEZ DO Ot E66. 9 SP UNSPECIFIED SP 06/29/2016 JT FERNANDEZ DO Ot F41. 9 SP DISORDER, UNSPECIFIED SP 06/29/2016 JT FERNANDEZ DO Ot I20. 9 SP PECTORIS, UNSPECIFIED SP 06/29/2016 JT FERNANDEZ DO, Ot J44. 9 SP OBSTRUCTIVE PULMONARY DISEASE, U SP 06/29/2016 JT FERNANDEZ DO Ot J45.909 SP UNSPECIFIED ASTHMA, UNCOMPLICATED SP 06/29/2016 JT FERNANDEZ DO Ot Z72. 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 SP 06/29/2016 GLAINA WALKER MD Ot J44.9 SP OBSTRUCTIVE PULMONARY DISEASE, U SP 06/29/2016 GALINA WALKER MD Ot K21.0 SPESOPHAGEAL REFLUX DISEASE WITH ES SP 06/29/2016 GALINA WALKER MD Ot K29.70 SP UNSPECIFIED, WITHOUT BLEEDING SP 06/29/2016 GALINA WALKER MD, Ot K44.9 SP HERNIA WITHOUT OBSTRUCTION SP 06/29/2016 GALINA WALKER MD, Ot K63.5 SP OF COLON SP 06/29/2016 GALINA WALKER MD, Ot K64.1 SP DEGREE HEMORRHOIDS SP 06/29/2016 GALINA WALKER MD, Ot Z12.11 SP FOR SCREENING FOR MALIGNANT NE SP 06/29/2016 GALINA WALKER MD, Ot 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), AND CEREB INFRC W SP 06/30/2016 GALINA WALKER MD Ot E11.9 SP 2 DIABETES MELLITUS WITHOUT COMPLIC SP 06/30/2016 GALINA WALKER MD Ot E78.00 SP HYPERCHOLESTEROLEMIA, UNSPECIFIED SP 06/30/2016 GALINA WALKER MD Ot I10 SP (PRIMARY) HYPERTENSION SP 06/30/2016 GALINA WALKER MD, Ot I25.2 OLD SPMYOCARDIAL INFARCTION SP 06/30/2016 GALINA WALKER MD, Ot J44.9 SP OBSTRUCTIVE PULMONARY DISEASE, U SP 06/30/2016 GALINA WALKER MD Ot K21.0 SPESOPHAGEAL REFLUX DISEASE WITH ES SP 06/30/2016 GALINA WALKER MD, Ot K29.70 SP UNSPECIFIED, WITHOUT BLEEDING SP 06/30/2016 GALINA WALKER MD, Ot K44.9 SP HERNIA WITHOUT OBSTRUCTION SP 06/30/2016 GALINA WALKER MD, Ot K63.5 SP OF COLON SP 06/30/2016 GALINA WALKER MD, Ot K64.1 SP DEGREE HEMORRHOIDS SP 06/30/2016 GALINA WALKER MD, Ot Z12.11 SP FOR SCREENING FOR MALIGNANT NE SP 06/30/2016 GALINA WALKER MD Ot 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), AND CEREB INFRC W SP 07/01/2016 GALINA WALKER MD Ot E11.9 SP 2 DIABETES MELLITUS WITHOUT COMPLIC SP 07/01/2016 GALINA WALKER MD Ot E78.00 SP HYPERCHOLESTEROLEMIA, UNSPECIFIED SP 07/01/2016 GALINA WALKER MD Ot I10 SP (PRIMARY) HYPERTENSION SP 07/01/2016 GALINA WALKER MD, Ot I25.2 OLD SPMYOCARDIAL INFARCTION SP 07/01/2016 GALINA WALKER MD, Ot J44.9 SP OBSTRUCTIVE PULMONARY DISEASE, U SP 07/01/2016 GALINA WALKER MD, Ot K21.0 SPESOPHAGEAL REFLUX DISEASE WITH ES SP 07/01/2016 GALINA WALKER MD, Ot K29.70 SP UNSPECIFIED, WITHOUT BLEEDING SP 07/01/2016 GALINA WALKER MD, Ot K44.9 SP HERNIA WITHOUT OBSTRUCTION SP 07/01/2016 GALINA WALKER MD, Ot K63.5 SP OF COLON SP 07/01/2016 GALINA WALKER MD, Ot K64.1 SP DEGREE HEMORRHOIDS SP 07/01/2016 GALINA WALKER MD, Ot Z12.11 SP FOR SCREENING FOR MALIGNANT NE SP 07/01/2016 GALINA WALKER MD, Ot 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), AND CEREB INFRC W SP 07/12/2016 JOE WEBER FACC, ALI FACP CCDS Ot 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 07/12/2016 JOE WEBER FACC, ALI FACP CCDS Ot I45.19 SP OTHER RIGHT BUNDLE-BRANCH BLOCK SP 07/12/2016 JOE WEBER FACC, ALI FACP CCDS Ot J44.9 SP CHRONIC OBSTRUCTIVE PULMONARY DISEASE, U SP 07/12/2016 JOE WEBER FACC, ALI FACP CCDS Ot R06.09 SP OTHER FORMS OF DYSPNEA SP 07/12/2016 JOE GUILLENC, ALI FACP CCDS Ot R07.89 SP OTHER CHEST PAIN SP 07/12/2016 JOE WEBER FACC, ALI FACP CCDS Ot Z72.0 SP TOBACCO USE SP 07/12/2016 JOE WEBER FACC, ALI FACP CCDS Ot SP OTHER STOCK PREPARER (CURRENT) DRUG THERAPY SP 07/12/2016 JOE WEBER FACC, ALI FACP CCDS Ot Z82.49 SP FAMILY HX OF ISCHEM HEART DIS AND OTH DI SP 07/12/2016 JOE WEBER FACC, ALI FACP CCDS Ot 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), AND CEREB INFRC W SP 07/14/2016 GALINA WALKER MD, Ot E11.9 SP 2 DIABETES MELLITUS WITHOUT COMPLIC SP 07/14/2016 GALINA WALKER MD, Ot E78.00 SP HYPERCHOLESTEROLEMIA, UNSPECIFIED SP 07/14/2016 GALINA WALKER MD, Ot I10 SP (PRIMARY) HYPERTENSION SP 07/14/2016 GALINA WALKER MD, Ot I25.2 OLD SPMYOCARDIAL INFARCTION SP 07/14/2016 GALINA WALKER MD, Ot J44.9 SP OBSTRUCTIVE PULMONARY DISEASE, U SP 07/14/2016 GALINA WALKER MD, Ot K21.0 SPESOPHAGEAL REFLUX DISEASE WITH ES SP 07/14/2016 GALINA WALKER MD, Ot K29.70 SP UNSPECIFIED, WITHOUT BLEEDING SP 07/14/2016 GALINA WALKER MD, Ot K44.9 SP HERNIA WITHOUT OBSTRUCTION SP 07/14/2016 GALINA WALKER MD, Ot K63.5 SP OF COLON SP 07/14/2016 GALINA WALKER MD, Ot K64.1 SP DEGREE HEMORRHOIDS SP 07/14/2016 GALINA WALKER MD, Ot Z12.11 SP FOR SCREENING FOR MALIGNANT NE SP 07/14/2016 GALINA WALKER MD, Ot 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), AND CEREB INFRC W SP 07/14/2016 JOE WEBER FACC, ALI FACP CCDS Ot 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 07/14/2016 JOE WEBER FACC, ALI FACP CCDS Ot I45.19 SP OTHER RIGHT BUNDLE-BRANCH BLOCK SP 07/14/2016 JOE GUILLENC, ALI FACP CCDS Ot J44.9 SP CHRONIC OBSTRUCTIVE PULMONARY DISEASE, U SP 07/14/2016 JOE WEBER FACC, ALI FACP CCDS Ot R06.09 SP OTHER FORMS OF DYSPNEA SP 07/14/2016 JOE WEBER FACC, ALI FACP CCDS Ot R07.89 SP OTHER CHEST PAIN SP 07/14/2016 JOE WEBER FACC, ALI FACP CCDS Ot Z72.0 SP TOBACCO USE SP 07/14/2016 JOE WEBER FACC, ALI FACP CCDS Ot SP OTHER STOCK PREPARER (CURRENT) DRUG THERAPY SP 07/14/2016 JOE GUILLENC, ALI FACP CCDS Ot Z82.49 SP FAMILY HX OF ISCHEM HEART DIS AND OTH DI SP 07/14/2016 JOE MD FACC, ALI FACP CCDS Ot 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), AND CEREB INFRC W SP 07/19/2016 SURYA CABAN MD Ot 786. 09 SP ABNORM NEC SP 07/19/2016 SURYA CABAN MD Ot 786. 50 SP PAIN NOS SP 07/19/2016 DORIS LAYTON MD Ot 721 .0 SP SPONDYLOSIS SP 07/19/2016 DORIS LAYTON MD Ot 724.02 SP SPINAL STENOSIS, LUMBAR REG, W/OUT NEURO SP 07/19/2016 DORIS LAYTON MD Ot L02.11 SP CUTANEOUS ABSCESS OF NECK SP 07/19/2016 DORIS LAYTON MD Ot R59 .0 SP ENLARGED LYMPH NODES SP 07/19/2016 DORIS LAYTON MD Ot H53 .2 SP SP 07/19/2016 Ot M75.101 UN SP ROTATR-CUFF SPTEAR/RUPTR OF RIGHT [place] SP 07/19/2016 DORIS LAYTON MD Ot M47.892 SP OTHER SPONDYLOSIS, CERVICAL REGION SP 07/19/2016 JT FERNANDEZ DO Ot E66. 9 SP UNSPECIFIED SP 07/19/2016 JT FERNANDEZ DO Ot F41. 9 SP DISORDER, UNSPECIFIED SP 07/19/2016 TJ FERNANDEZ DO Ot I20. 9 SP PECTORIS, UNSPECIFIED SP 07/19/2016 JT FERNANDEZ DO Ot J44. 9 SP OBSTRUCTIVE PULMONARY DISEASE, U SP 07/19/2016 JT FERNANDEZ DO Ot J45.909 SP UNSPECIFIED ASTHMA, UNCOMPLICATED SP 07/19/2016 JT FERNANDEZ DO Ot Z72. 0 SP USE SP 07/19/2016 LARRY CHING L TRACK PRODUCTION ENGINEER Ot R10.11 SP RIGHT UPPER QUADRANT PAIN SP 07/19/2016 CINDY CHINGIN L TRACK PRODUCTION ENGINEER Ot R10.11 SP RIGHT UPPER QUADRANT PAIN SP 07/20/2016 SURYA CABAN MD Ot 786. 09 SP ABNORM NEC SP 07/20/2016 SURYA CABAN MD Ot 786. 50 SP PAIN NOS SP 07/20/2016 DORIS LAYTON MD Ot 721 .0 SP SPONDYLOSIS SP 07/20/2016 DORIS LAYTON MD Ot 724.02 SP SPINAL STENOSIS, LUMBAR REG, W/OUT NEURO SP 07/20/2016 DORIS LAYTON MD Ot L02.11 SP CUTANEOUS ABSCESS OF NECK SP 07/20/2016 DORIS LAYTON MD Ot R59 .0 SP ENLARGED LYMPH NODES SP 07/20/2016 DORIS LAYTON MD Ot H53 .2 SP SP 07/20/2016 Ot M75.101 UN SP ROTATR-CUFF SPTEAR/RUPTR OF RIGHT [place] SP 07/20/2016 DORIS LAYTON MD Ot M47.892 SP OTHER SPONDYLOSIS, CERVICAL REGION SP 07/20/2016 JT FERNANDEZ DO Ot E66. 9 SP UNSPECIFIED SP 07/20/2016 JT FERNANDEZ DO Ot F41. 9 SP DISORDER, UNSPECIFIED SP 07/20/2016 JT FERNANDEZ DO Ot I20. 9 SP PECTORIS, UNSPECIFIED SP 07/20/2016 JT FERNANDEZ DO, Ot J44. 9 SP OBSTRUCTIVE PULMONARY DISEASE, U SP 07/20/2016 JT FERNANDEZ DO Ot J45.909 SP UNSPECIFIED ASTHMA, UNCOMPLICATED SP 07/20/2016 JT FERNANDEZ DO Ot Z72. 0 SP USE SP 07/20/2016 LARRY CHING TRACK PRODUCTION ENGINEER Ot R10.11 SP RIGHT UPPER QUADRANT PAIN SP 07/20/2016 LARRY CHING TRACK PRODUCTION ENGINEER Ot R10.11 SP RIGHT UPPER QUADRANT PAIN SP 07/20/2016 JT FERNANDEZ DO Ot G47. 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 09 SP ABNORM NEC SP 07/25/2016 SURYA CABAN MD Ot 786. 50 SP PAIN NOS SP 07/25/2016 DORIS LAYTON MD Ot 721 .0 SP SPONDYLOSIS SP 07/25/2016 DORIS LAYTON MD Ot 724.02 SP SPINAL STENOSIS, LUMBAR REG, W/OUT NEURO SP 07/25/2016 DORIS LAYTON MD Ot L02.11 SP CUTANEOUS ABSCESS OF NECK SP 07/25/2016 DORIS LAYTON MD Ot R59 .0 SP ENLARGED LYMPH NODES SP 07/25/2016 DORIS LAYTON MD Ot H53 .2 SP SP 07/25/2016 Ot M75.101 UN SP ROTATR-CUFF SPTEAR/RUPTR OF RIGHT [place] SP 07/25/2016 DORIS LAYTON MD Ot M47.892 SP OTHER SPONDYLOSIS, CERVICAL REGION SP 07/25/2016 JT FERNANEDZ DO Ot E66. 9 SP UNSPECIFIED SP 07/25/2016 JT FERNANDEZ DO Ot F41. 9 SP DISORDER, UNSPECIFIED SP 07/25/2016 JT FERNANDEZ DO, Ot I20. 9 SP PECTORIS, UNSPECIFIED SP 07/25/2016 JT FERNANDEZ DO, Ot J44. 9 SP OBSTRUCTIVE PULMONARY DISEASE, U SP 07/25/2016 JT FERNANDEZ DO, Ot J45.909 SP UNSPECIFIED ASTHMA, UNCOMPLICATED SP 07/25/2016 JT FERNANDEZ DO Ot Z72. 0 SP USE SP 07/25/2016 JT FERNANDEZ DO Ot G47. 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 09 SP ABNORM NEC SP 07/26/2016 SURYA CABAN MD Ot 786. 50 SP PAIN NOS SP 07/26/2016 DORIS LAYTON MD Ot 721 .0 SP SPONDYLOSIS SP 07/26/2016 DORIS LAYTON MD Ot 724.02 SP SPINAL STENOSIS, LUMBAR REG, W/OUT NEURO SP 07/26/2016 DORIS LAYTON MD Ot L02.11 SP CUTANEOUS ABSCESS OF NECK SP 07/26/2016 DORIS LAYTON MD Ot R59 .0 SP ENLARGED LYMPH NODES SP 07/26/2016 DORIS LAYTON MD Ot H53 .2 SP SP 07/26/2016 Ot M75.101 UN SP ROTATR-CUFF SPTEAR/RUPTR OF RIGHT [place] SP 07/26/2016 DORIS LAYTON MD Ot M47.892 SP OTHER SPONDYLOSIS, CERVICAL REGION SP 07/26/2016 JT FERNANDEZ DO Ot E66. 9 SP UNSPECIFIED SP 07/26/2016 JT FERNANDEZ DO Ot F41. 9 SP DISORDER, UNSPECIFIED SP 07/26/2016 JT FERNANDEZ DO Ot I20. 9 SP PECTORIS, UNSPECIFIED SP 07/26/2016 JT FERNANDEZ DO Ot J44. 9 SP OBSTRUCTIVE PULMONARY DISEASE, U SP 07/26/2016 JT FERNANDEZ DO, Ot J45.909 SP UNSPECIFIED ASTHMA, UNCOMPLICATED SP 07/26/2016 JT FERNANDEZ DO Ot Z72. 0 SP USE SP 07/26/2016 JT FERNANDEZ DO Ot G47. 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 07/26/2016 EMELIA GLOVER COUNSELING PROGRAM LEADER Ot I97.610 SP POSTPROC HEMOR OF A CIRC SYS ORG FOLLOWI SP 07/26/2016 JOE WEBER FACC, MAGDA SUN CCDS Ot I73.9 SP PERIPHERAL VASCULAR DISEASE, UNSPECIFIED SP 07/27/2016 JOE WEBER FACC, MAGDA FACP CCDS Ot I73.9 SP PERIPHERAL VASCULAR DISEASE, UNSPECIFIED SP 07/27/2016 JOE WEBER FACC, ALI FACP CCDS Ot E66.09 SP OTHER OBESITY DUE TO EXCESS CALORIES SP 07/27/2016 JOE WEBER FAC, ALI FACP CCDS Ot E78.4 SP OTHER HYPERLIPIDEMIA SP 07/27/2016 JOE WEBER FAC, ALI FACP CCDS Ot I10 SP ESSENTIAL (PRIMARY) HYPERTENSION SP 07/27/2016 JOE WEBER FACC, ALI FACP CCDS Ot J43.8 SP OTHER EMPHYSEMA SP 07/27/2016 JOE WEBER FACC, ALI FACP CCDS Ot R06.02 SP SHORTNESS OF BREATH SP 07/27/2016 JOE WEBER FACC, ALI FACP CCDS Ot R07.89 SP OTHER CHEST PAIN SP 07/27/2016 JOE WEBER FACC, ALI FACP CCDS Ot Z72.0 SP TOBACCO USE SP 07/27/2016 JOE WEBER FACC, ALI FACP CCDS Ot Z86.79 SP PERSONAL HISTORY OF OTHER DISEASES OF TH SP 08/05/2016 JT FERNANDEZ DO Ot G47. 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 09 SP ABNORM NEC SP 08/15/2016 SURYA CABAN MD Ot 786. 50 SP PAIN NOS SP 08/15/2016 DORIS LAYTON MD Ot 721 .0 SP SPONDYLOSIS SP 08/15/2016 DORIS LAYTON MD Ot 724.02 SP SPINAL STENOSIS, LUMBAR REG, W/OUT NEURO SP 08/15/2016 DORIS LAYTON MD Ot L02.11 SP CUTANEOUS ABSCESS OF NECK SP 08/15/2016 DORIS LAYTON MD Ot R59 .0 SP ENLARGED LYMPH NODES SP 08/15/2016 DORIS LAYTON MD Ot H53 .2 SP SP 08/15/2016 Ot M75.101 UN SP ROTATR-CUFF SPTEAR/RUPTR OF RIGHT LEWIS SP 08/15/2016 ESTRADA LAYTON MDY N Ot M47.892 SP OTHER SPONDYLOSIS, CERVICAL REGION SP 08/15/2016 JT FERNANDEZ DO Ot E66. 9 SP UNSPECIFIED SP 08/15/2016 JT FERNANDEZ DO Ot F41. 9 SP DISORDER, UNSPECIFIED SP 08/15/2016 JT FERNANDEZ DO Ot I20. 9 SP PECTORIS, UNSPECIFIED SP 08/15/2016 JT FERNANDEZ DO Ot J44. 9 SP OBSTRUCTIVE PULMONARY DISEASE, U SP 08/15/2016 JT FERNANDEZ DO Ot J45.909 SP UNSPECIFIED ASTHMA, UNCOMPLICATED SP 08/15/2016 JT FERNANDEZ DO Ot Z72. 0 SP USE SP 08/15/2016 JT FERNANDEZ DO Ot G47. 33 SP SLEEP APNEA (ADULT) (PEDIATR SP 08/15/2016 LARRY CHING TRACK PRODUCTION ENGINEER Ot R10.11 SP RIGHT UPPER QUADRANT PAIN SP 08/15/2016 LARRY CHING TRACK PRODUCTION ENGINEER Ot R10.11 SP RIGHT UPPER QUADRANT PAIN SP 08/15/2016 JOE GUILLENC, ALI FACP CCDS Ot I73.9 SP PERIPHERAL VASCULAR DISEASE, UNSPECIFIED SP 08/15/2016 JOE WEBER FACC, ALI FACP CCDS Ot E66.09 SP OTHER OBESITY DUE TO EXCESS CALORIES SP 08/15/2016 JOE WEBER FACC, ALI FACP CCDS Ot E78.4 SP OTHER HYPERLIPIDEMIA SP 08/15/2016 JOE WEBER FACC, ALI FACP CCDS Ot I10 SP ESSENTIAL (PRIMARY) HYPERTENSION SP 08/15/2016 JOE WEBER FACC, ALI FACP CCDS Ot J43.8 SP OTHER EMPHYSEMA SP 08/15/2016 JOE WEBER FACC, ALI FACP CCDS Ot R06.02 SP SHORTNESS OF BREATH SP 08/15/2016 JOE WEBER FACC, ALI FACP CCDS Ot R07.89 SP OTHER CHEST PAIN SP 08/15/2016 JOE WEBER FACC, ALI FACP CCDS Ot Z72.0 SP TOBACCO USE SP 08/15/2016 JOE WEBER FACC, ALI FACP CCDS Ot Z86.79 SP PERSONAL HISTORY OF OTHER DISEASES OF TH SP 08/15/2016 EMELIA GLOVER COUNSELING PROGRAM LEADER Ot 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 13 SP DISC DISORDER W RADICULOPATHY, SP 08/15/2016 NATHANIEL MONSIVAIS MD Ot Z79.899 SP OTHER STOCK PREPARER (CURRENT) DRUG THERAPY SP 08/24/2016 NATHANIEL MONSIVAIS MD Ot M50. 13 SP DISC DISORDER W RADICULOPATHY, SP 08/24/2016 NATHANIEL MONSIVAIS MD Ot Z79.899 SP OTHER STOCK PREPARER (CURRENT) DRUG THERAPY SP 08/25/2016 EMELIA GLOVER COUNSELING PROGRAM LEADER Ot T81.719A SP COMPLICATION OF UNSP ARTERY FOLLOWING A SP 08/29/2016 JOE GUILLENC, ALI FACP CCDS Ot I73.9 SP PERIPHERAL VASCULAR DISEASE, UNSPECIFIED SP 08/29/2016 JOE GUILLENC, ALI FACP CCDS Ot E66.09 SP OTHER OBESITY DUE TO EXCESS CALORIES SP 08/29/2016 JOE GUILLENC, ALI FACP CCDS Ot E78.4 SP OTHER HYPERLIPIDEMIA SP 08/29/2016 JOE WEBER FACC, ALI FACP CCDS Ot I10 SP ESSENTIAL (PRIMARY) HYPERTENSION SP 08/29/2016 JOE GUILLENC, ALI FACP CCDS Ot J43.8 SP OTHER EMPHYSEMA SP 08/29/2016 JOE GUILLENC, ALI FACP CCDS Ot R06.02 SP SHORTNESS OF BREATH SP 08/29/2016 JOE GUILLENC, ALI FACP CCDS Ot R07.89 SP OTHER CHEST PAIN SP 08/29/2016 JOE GUILLENC, ALI FACP CCDS Ot Z72.0 SP TOBACCO USE SP 08/29/2016 JOE WEBER FACC, ALI FACP CCDS Ot Z86.79 SP PERSONAL HISTORY OF OTHER DISEASES OF SP 09/23/2016 NATHANIEL MONSIVAIS MD Ot M50. 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 13 SP DISC DISORDER W RADICULOPATHY, SP 09/29/2016 NATHANIEL MONSIVAIS MD Ot Z79.899 SP OTHER JAIL (CURRENT) DRUG THERAPY SP 10/06/2016 MAN JOHNSON MD Ot F17.200 SP NICOTINE DEPENDENCE, UNSPECIFIED, UNCOMP SP 10/06/2016 MAN JOHNSON MD Ot J31 .2 SP PHARYNGITIS SP 10/18/2016 SURYA CABAN MD Ot 786. 09 SP ABNORM NEC SP 10/18/2016 SURYA CABAN MD Ot 786. 50 SP PAIN NOS SP 10/18/2016 DORIS LAYTON MD Ot 721 .0 SP SPONDYLOSIS SP 10/18/2016 DORIS LAYTON MD Ot 724.02 SP SPINAL STENOSIS, LUMBAR REG, W/OUT NEURO SP 10/18/2016 DORIS LAYTON MD Ot L02.11 SP CUTANEOUS ABSCESS OF NECK SP 10/18/2016 DORIS LAYTON MD Ot R59 .0 SP ENLARGED LYMPH NODES SP 10/18/2016 DORIS LAYTON MD Ot H53 .2 SP SP 10/18/2016 Ot M75.101 UN SP ROTATR-CUFF SPTEAR/RUPTR OF RIGHT LEWIS SP 10/18/2016 DORIS LAYTON MD Ot M47.892 SP OTHER SPONDYLOSIS, CERVICAL REGION SP 10/18/2016 JT FERNANDEZ DO Ot E66. 9 SP UNSPECIFIED SP 10/18/2016 JT FERNANDEZ DO Ot F41. 9 SP DISORDER, UNSPECIFIED SP 10/18/2016 JT FERNANDEZ DO Ot I20. 9 SP PECTORIS, UNSPECIFIED SP 10/18/2016 JT FERNANDEZ DO, Ot J44. 9 SP OBSTRUCTIVE PULMONARY DISEASE, U SP 10/18/2016 JT FERNANDEZ DO Ot J45.909 SP UNSPECIFIED ASTHMA, UNCOMPLICATED SP 10/18/2016 JIM OTLENTINO JT M Ot Z72. 0 SP USE SP 10/18/2016 JT FERNANDEZ DO Ot G47. 33 SP SLEEP APNEA (ADULT) (PEDIATR SP 10/18/2016 HUMZALARRY TRACK PRODUCTION ENGINEER Ot R10.11 SP RIGHT UPPER QUADRANT PAIN SP 10/18/2016 HUMZA LARRY Arik TRACK PRODUCTION ENGINEER Ot R10.11 SP RIGHT UPPER QUADRANT PAIN SP 10/18/2016 JOE WEBER FACC, ALI FACP CCDS Ot I73.9 SP PERIPHERAL VASCULAR DISEASE, UNSPECIFIED SP 10/18/2016 JOE WEBER FACC, ALI FACP CCDS Ot E66.09 SP OTHER OBESITY DUE TO EXCESS CALORIES SP 10/18/2016 JOE WEBER FACC, ALI FACP CCDS Ot E78.4 SP OTHER HYPERLIPIDEMIA SP 10/18/2016 JOE WEBER FACC, ALI FACP CCDS Ot I10 SP ESSENTIAL (PRIMARY) HYPERTENSION SP 10/18/2016 JOE WEBER FACC, ALI FACP CCDS Ot J43.8 SP OTHER EMPHYSEMA SP 10/18/2016 JEO GUILLENC, ALI FACP CCDS Ot R06.02 SP SHORTNESS OF BREATH SP 10/18/2016 JOE WEBER FACC, ALI FACP CCDS Ot R07.89 SP OTHER CHEST PAIN SP 10/18/2016 JOE GUILLENC, ALI FACP CCDS Ot Z72.0 SP TOBACCO USE SP 10/18/2016 JOE GUILLENC, ALI FACP CCDS Ot Z86.79 SP PERSONAL HISTORY OF OTHER DISEASES OF SP 10/18/2016 EMELIA GLOVER COUNSELING PROGRAM LEADER Ot 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 10/18/2016 EMELIA GLOVER COUNSELING PROGRAM LEADER Ot I97.610 SP POSTPROC HEMOR OF A CIRC SYS ORG FOLLOWI SP 10/18/2016 EMELIA GLOVER COUNSELING PROGRAM LEADER Ot T81.719A SP COMPLICATION OF UNSP ARTERY FOLLOWING A SP 10/18/2016 EMELIA GLOVER COUNSELING PROGRAM LEADER Ot E78.4 SP OTHER HYPERLIPIDEMIA SP 10/18/2016 EMELIA GLOVER COUNSELING PROGRAM LEADER Ot I 10 SP (PRIMARY) HYPERTENSION SP 10/18/2016 EMELIA GLOVER COUNSELING PROGRAM LEADER Ot 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 10/18/2016 BAIEMELIA CARY COUNSELING PROGRAM LEADER Ot I65.23 SP OCCLUSION AND STENOSIS OF BILATERAL [place]EL[place] SP 10/18/2016 ELIZABETH WEBER, MAN Dale Ot F17.200 SP NICOTINE DEPENDENCE, UNSPECIFIED, UNCOMP SP 10/18/2016 ELIZABETH WEBER, MAN Dale Ot J31 .2 SP PHARYNGITIS SP 10/19/2016 BAIEMELIA CARY COUNSELING PROGRAM LEADER Ot E78.4 SP OTHER HYPERLIPIDEMIA SP 10/19/2016 BAIMAEMELIA L COUNSELING PROGRAM LEADER Ot I 10 SP (PRIMARY) HYPERTENSION SP 10/19/2016 BAIMAEMELIA COUNSELING PROGRAM LEADER Ot I65.23 SP OCCLUSION AND STENOSIS OF BILATERAL [place] SP 10/19/2016 BAIEMELIA CARY L COUNSELING PROGRAM LEADER Ot R06.02 SP SHORTNESS OF BREATH SP 10/19/2016 EMELIA GLOVER COUNSELING PROGRAM LEADER Ot Z72.0 SP TOBACCO USE SP 11/03/2016 EMELIA GLOVER COUNSELING PROGRAM LEADER Ot E78.4 SP OTHER HYPERLIPIDEMIA SP 11/03/2016 EMELIA GLOVER L COUNSELING PROGRAM LEADER Ot I 10 SP (PRIMARY) HYPERTENSION SP 11/03/2016 EMELIA GLOVER COUNSELING PROGRAM LEADER Ot I65.23 SP OCCLUSION AND STENOSIS OF BILATERAL [place] SP 11/03/2016 BAIEMELIA CARY COUNSELING PROGRAM LEADER Ot R06.02 SP SHORTNESS OF BREATH SP 11/03/2016 BAIEMELIA CARY COUNSELING PROGRAM LEADER Ot Z72.0 SP TOBACCO USE SP 12/02/2016 DORIS LAYTON MD Ot M47.892 SP OTHER SPONDYLOSIS, CERVICAL REGION SP 04/14/2017 SURYA CABAN MD Ot 786. 09 SP ABNORM NEC SP 04/14/2017 SURYA CABAN MD Ot 786. 50 SP PAIN NOS SP 04/14/2017 DORIS LAYTON MD Ot 721 .0 SP SPONDYLOSIS SP 04/14/2017 DORIS LAYTON MD Ot 724.02 SP SPINAL STENOSIS, LUMBAR REG, W/OUT NEURO SP 04/14/2017 DORIS LAYTON MD Ot L02.11 SP CUTANEOUS ABSCESS OF NECK SP 04/14/2017 DORIS LAYTON MD Ot R59 .0 SP ENLARGED LYMPH NODES SP 04/14/2017 DORIS LAYTON MD Ot H53 .2 SP SP 04/14/2017 Ot M75.101 UN SP ROTATR-CUFF SPTEAR/RUPTR OF RIGHT LEWIS SP 04/14/2017 KINJAL WEBER, DORIS Butcher Ot M47.892 SP OTHER SPONDYLOSIS, CERVICAL REGION SP 04/14/2017 JT FERNANDEZ DO Ot E66. 9 SP UNSPECIFIED SP 04/14/2017 JT FERNANDEZ DO Ot F41. 9 SP DISORDER, UNSPECIFIED SP 04/14/2017 JT FERNANDEZ DO Ot I20. 9 SP PECTORIS, UNSPECIFIED SP 04/14/2017 JT FERNANDEZ DO Ot J44. 9 SP OBSTRUCTIVE PULMONARY DISEASE, U SP 04/14/2017 JT FERNANDEZ DO Ot J45.909 SP UNSPECIFIED ASTHMA, UNCOMPLICATED SP 04/14/2017 JT FERNANDEZ DO Ot Z72. 0 SP USE SP 04/14/2017 JT FERNANDEZ DO Ot G47. 33 SP SLEEP APNEA (ADULT) (PEDIATR SP 04/14/2017 CINDY CHINGIN L TRACK PRODUCTION ENGINEER Ot R10.11 SP RIGHT UPPER QUADRANT PAIN SP 04/14/2017 CINDY CHINGIN L TRACK PRODUCTION ENGINEER Ot R10.11 SP RIGHT UPPER QUADRANT PAIN SP 04/14/2017 JOE WEBER FACC, ALI FACP CCDS Ot I73.9 SP PERIPHERAL VASCULAR DISEASE, UNSPECIFIED SP 04/14/2017 JOE WEBER FACC, ALI FACP CCDS Ot E66.09 SP OTHER OBESITY DUE TO EXCESS CALORIES SP 04/14/2017 JOE WEBER FACC, ALI FACP CCDS Ot E78.4 SP OTHER HYPERLIPIDEMIA SP 04/14/2017 JOE WEBER FACC, ALI FACP CCDS Ot I10 SP ESSENTIAL (PRIMARY) HYPERTENSION SP 04/14/2017 JOE WEBER FACC, ALI FACP CCDS Ot J43.8 SP OTHER EMPHYSEMA SP 04/14/2017 JOE WEBER FACC, ALI FACP CCDS Ot R06.02 SP SHORTNESS OF BREATH SP 04/14/2017 JOE WEBER FACC, ALI FACP CCDS Ot R07.89 SP OTHER CHEST PAIN SP 04/14/2017 JOE WEBER FACC, ALI FACP CCDS Ot Z72.0 SP TOBACCO USE SP 04/14/2017 JOE WEBER FACC, ALI FACP CCDS Ot Z86.79 SP PERSONAL HISTORY OF OTHER DISEASES OF TH SP 04/14/2017 EMELIA GLOVER COUNSELING PROGRAM LEADER Ot 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 04/14/2017 NANYEMELIA CARY COUNSELING PROGRAM LEADER Ot I97.610 SP POSTPROC HEMOR OF A CIRC SYS ORG FOLLOWI SP 04/14/2017 EMELIA GLOVER COUNSELING PROGRAM LEADER Ot T81.719A SP COMPLICATION OF UNSP ARTERY FOLLOWING A SP 04/14/2017 NANYEMELIA CARY L COUNSELING PROGRAM LEADER Ot E78.4 SP OTHER HYPERLIPIDEMIA SP 04/14/2017 NANYEMELIA CARY L COUNSELING PROGRAM LEADER Ot I 10 SP (PRIMARY) HYPERTENSION SP 04/14/2017 NANYEMELIA CARY L COUNSELING PROGRAM LEADER Ot 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 04/14/2017 NANYEMELIA CARY COUNSELING PROGRAM LEADER Ot I65.23 SP OCCLUSION AND STENOSIS OF BILATERAL [place] SP 04/14/2017 ELIZABETH WEBER, MAN Dale Ot F17.200 SP NICOTINE DEPENDENCE, UNSPECIFIED, UNCOMP SP 04/14/2017 ELIZABETH WBEER, MAN Dale Ot J31 .2 SP PHARYNGITIS SP 04/14/2017 NANYEMELIA CARY COUNSELING PROGRAM LEADER Ot E78.4 SP OTHER HYPERLIPIDEMIA SP 04/14/2017 NANYEMELIA CARY L COUNSELING PROGRAM LEADER Ot I 10 SP (PRIMARY) HYPERTENSION SP 04/14/2017 NANYEMELIA CARY L COUNSELING PROGRAM LEADER Ot I65.23 SP OCCLUSION AND STENOSIS OF BILATERAL [place] SP 04/14/2017 NANYEMELIA CARY L COUNSELING PROGRAM LEADER Ot R06.02 SP SHORTNESS OF BREATH SP 04/14/2017 NANYRAEANN EMELIA L COUNSELING PROGRAM LEADER Ot Z72.0 SP TOBACCO USE SP 04/14/2017 KINJAL WEBER, DORIS Butcher Ot M47.892 SP OTHER SPONDYLOSIS, CERVICAL REGION SP 05/02/2017 NANYEMELIA CARY L COUNSELING PROGRAM LEADER Ot E78.4 SP OTHER HYPERLIPIDEMIA SP 05/02/2017 NANYEMELIA CARY L COUNSELING PROGRAM LEADER Ot I 10 SP (PRIMARY) HYPERTENSION SP 07/05/2017 DENISE WEBER, GALINA Ot D17.9 SP LIPOMATOUS NEOPLASM, UNSPECIFIED SP 07/05/2017 DENISE WEBER, GALINA Ot Z01.81 8 SP FOR OTHER PREPROCEDURAL EXAMIN SP 07/06/2017 GALINA WALKER MD Ot D17.9 SP LIPOMATOUS NEOPLASM, UNSPECIFIED SP 07/06/2017 GALINA WALKER MD Ot Z01.81 8 SP FOR OTHER PREPROCEDURAL EXAMIN SP 07/13/2017 GALINA WALKER MD Ot D17.1 SP LIPOMATOUS NEOPLASM OF SKIN, SUBC SP 07/13/2017 GALINA WALKER MD Ot 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 07/13/2017 GALINA WALKER MD Ot E78.00 SP HYPERCHOLESTEROLEMIA, UNSPECIFIED SP 07/13/2017 GALINA WALKER MD Ot F17.21 0 SP DEPENDENCE, CIGARETTES, UNCOMPL SP 07/13/2017 GALINA WALKER MD Ot F32.9 SP DEPRESSIVE DISORDER, SINGLE EPISOD SP 07/13/2017 GALINA WALKER MD Ot I10 SP (PRIMARY) HYPERTENSION SP 07/13/2017 GALINA WALKER MD Ot I25.2 OLD SPMYOCARDIAL INFARCTION SP 07/13/2017 GALINA WALKER MD Ot J44.9 SP OBSTRUCTIVE PULMONARY DISEASE, U SP 07/13/2017 GALINA WALKER MD Ot K21.9 SPESOPHAGEAL REFLUX DISEASE WITHOUT SP 07/13/2017 GALINA WALKER MD Ot Z79.52 SP TERM (CURRENT) USE OF SYSTEMIC STER SP 07/13/2017 GALINA WALKER MD Ot Z79.89 9 SP STOCK PREPARER (CURRENT) DRUG THERAPY SP 07/17/2017 GALINA WALKER MD Ot D17.1 SP LIPOMATOUS NEOPLASM OF SKIN, SUBC SP 07/17/2017 GALINA WALKER MD Ot 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 07/17/2017 GALINA WALKER MD Ot E78.00 SP HYPERCHOLESTEROLEMIA, UNSPECIFIED SP 07/17/2017 GALINA WALKER MD Ot F17.21 0 SP DEPENDENCE, CIGARETTES, UNCOMPL SP 07/17/2017 GALINA WALKER MD Ot F32.9 SP DEPRESSIVE DISORDER, SINGLE EPISOD SP 07/17/2017 GALINA WALKER MD Ot I10 SP (PRIMARY) HYPERTENSION SP 07/17/2017 GALINA WALKER MD Ot I25.2 OLD SPMYOCARDIAL INFARCTION SP 07/17/2017 GALINA WALKER MD Ot J44.9 SP OBSTRUCTIVE PULMONARY DISEASE, U SP 07/17/2017 GALINA WALKER MD, Ot K21.9 SPESOPHAGEAL REFLUX DISEASE WITHOUT SP 07/17/2017 GALINA WALKER MD, Ot Z79.52 SP TERM (CURRENT) USE OF SYSTEMIC STER SP 07/17/2017 GALINA WALKER MD, Ot Z79.89 9 SP JAIL (CURRENT) DRUG THERAPY SP 08/16/2017 JOE WEBER FACC, ALI FACP CCDS Ot E11.9 SP TYPE 2 DIABETES MELLITUS WITHOUT COMPLIC SP 08/16/2017 JOE WEBER FACC, ALI FACP CCDS Ot E66.9 SP OBESITY, UNSPECIFIED SP 08/16/2017 JOE WEBER FACC, ALI FACP CCDS Ot 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 08/16/2017 JOE WEBER FACC, ALI FACP CCDS Ot 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 08/16/2017 JOE WEBER FACC, ALI FACP CCDS Ot J43.8 SP OTHER EMPHYSEMA SP 08/16/2017 JOE WEBER FACC, ALI FACP CCDS Ot R06.02 SP SHORTNESS OF BREATH SP 08/16/2017 JOE WEBER FACC, ALI FACP CCDS Ot R07.89 SP OTHER CHEST PAIN SP 08/16/2017 JOE WEBER FACC, ALI FACP CCDS Ot R42 SP DIZZINESS AND GIDDINESS SP 08/16/2017 JOE WEBER FACC, ALI FACP CCDS Ot Z72.0 SP TOBACCO USE SP 08/21/2017 MAN ALVARES MD Ot E11.622 SP TYPE 2 DIABETES MELLITUS WITH OTHER SKIN SP 08/21/2017 MAN ALVARES MD Ot E66.01 SP MORBID (SEVERE) OBESITY DUE TO EXCESS CA SP 08/21/2017 MAN ALVARES MD, Ot J44 .9 SP OBSTRUCTIVE PULMONARY DISEASE, U SP 08/21/2017 MAN ALVARES MD, Ot L76.34 SP POSTPROC SEROMA OF SKIN, SUBCU FOLLOWING SP 08/21/2017 MAN ALVARES MD, Ot L98.492 SP NON-PRS CHRONIC ULCER OF SKIN OF SITES W SP 08/21/2017 MAN ALVARES MD, Ot T65.222A SP TOXIC EFFECT OF TOBACCO CIGARETTES, SELF SP 08/21/2017 MAN ALVARES MD, Ot T81.31XA SP DISRUPTION OF EXTERNAL OPERATION (SURGIC SP 08/28/2017 KINJAL WEBER, DORIS Butcher Ot I25.84 SP CORONARY ATHEROSCLEROSIS DUE TO CALCIFIE SP 08/28/2017 DORIS LAYTON MD Ot J43 .9 SP UNSPECIFIED SP 08/28/2017 DORIS LAYTON MD Ot J84.10 SP PULMONARY FIBROSIS, UNSPECIFIED SP 08/28/2017 DORIS LAYTON MD Ot I25.84 SP CORONARY ATHEROSCLEROSIS DUE TO CALCIFIE SP 08/28/2017 DORIS LAYTON MD Ot J43 .9 SP UNSPECIFIED SP 08/28/2017 DORIS LAYTON MD Ot J84.10 SP PULMONARY FIBROSIS, UNSPECIFIED SP 08/28/2017 MAN ALVARES MD, Ot E11.622 SP TYPE 2 DIABETES MELLITUS WITH OTHER SKIN SP 08/28/2017 MAN ALVARES MD, Ot E66.01 SP MORBID (SEVERE) OBESITY DUE TO EXCESS CA SP 08/28/2017 MAN ALVARES MD, Ot J44 .9 SP OBSTRUCTIVE PULMONARY DISEASE, U SP 08/28/2017 MAN ALVARES MD Ot L76.34 SP POSTPROC SEROMA OF SKIN, SUBCU FOLLOWING SP 08/28/2017 MAN ALVARES MD, Ot L98.492 SP NON-PRS CHRONIC ULCER OF SKIN OF SITES W SP 08/28/2017 MAN ALVARES MD, Ot T65.222A SP TOXIC EFFECT OF TOBACCO CIGARETTES, SELF SP 08/28/2017 MAN ALVARES MD, Ot T81.31XA SP DISRUPTION OF EXTERNAL OPERATION (SURGIC SP 08/29/2017 MAN ALVARES MD, Ot E11.622 SP TYPE 2 DIABETES MELLITUS WITH OTHER SKIN SP 08/29/2017 MAN ALVARES MD, Ot E66.01 SP MORBID (SEVERE) OBESITY DUE TO EXCESS CA SP 08/29/2017 MAN ALVARES MD, Ot J44 .9 SP OBSTRUCTIVE PULMONARY DISEASE, U SP 08/29/2017 MAN LAVARES MD, Ot L98.492 SP NON-PRS CHRONIC ULCER OF SKIN OF SITES W SP 08/29/2017 MAN ALVARES MD, Ot T65.222A SP TOXIC EFFECT OF TOBACCO CIGARETTES, SELF SP 08/29/2017 MAN ALVARES MD, Ot T81.31XA SP DISRUPTION OF EXTERNAL OPERATION (SURGIC SP 08/29/2017 MAN ALVARES MD Ot Z68.35 SP BODY MASS INDEX (BMI) 35.0-35.9, ADULT SP 09/01/2017 DYLAN PRADHAN MD Ot E11.6 22 SP 2 DIABETES MELLITUS WITH OTHER SKIN SP 09/01/2017 DYLAN PRADHAN MD Ot E66.0 1 SP (SEVERE) OBESITY DUE TO EXCESS CA SP 09/01/2017 DYLAN PRADHAN MD Ot J44.9 SP OBSTRUCTIVE PULMONARY DISEASE, U SP 09/01/2017 DYLAN PRADHAN MD Ot L98.4 92 SPPRS CHRONIC ULCER OF SKIN OF SITES W SP 09/01/2017 DYLAN PRADHAN MD, Ot T65.222A SP TOXIC EFFECT OF TOBACCO CIGARETTES, SELF SP 09/01/2017 DYLAN PRADHAN MD Ot T81.31XA SP DISRUPTION OF EXTERNAL OPERATION (SURGIC SP 09/01/2017 DYLAN PRADHAN MD, Ot Z68.3 5 SP MASS INDEX (BMI) 35.0-35.9, ADULT SP 09/05/2017 MAN ALVARES MD, Ot E11.622 SP TYPE 2 DIABETES MELLITUS WITH OTHER SKIN SP 09/05/2017 MAN ALVARES MD, Ot E66.01 SP MORBID (SEVERE) OBESITY DUE TO EXCESS CA SP 09/05/2017 MAN ALVARES MD Ot J44 .9 SP OBSTRUCTIVE PULMONARY DISEASE, U SP 09/05/2017 MAN ALVARES MD, Ot L98.492 SP NON-PRS CHRONIC ULCER OF SKIN OF SITES W SP 09/05/2017 MAN ALVARES MD Ot T65.222A SP TOXIC EFFECT OF TOBACCO CIGARETTES, SELF SP 09/05/2017 MAN ALVARES MD Ot T81.31XA SP DISRUPTION OF EXTERNAL OPERATION (SURGIC SP 09/05/2017 MAN ALVARES MD Ot Z68.35 SP BODY MASS INDEX (BMI) 35.0-35.9, ADULT SP 09/10/2017 MAN ALVARES MD, Ot E11.622 SP TYPE 2 DIABETES MELLITUS WITH OTHER SKIN SP 09/10/2017 MAN ALVARES MD Ot E66.01 SP MORBID (SEVERE) OBESITY DUE TO EXCESS CA SP 09/10/2017 MAN ALVARES MD, Ot J44 .9 SP OBSTRUCTIVE PULMONARY DISEASE, U SP 09/10/2017 MAN ALVARES MD Ot L98.492 SP NON-PRS CHRONIC ULCER OF SKIN OF SITES W SP 09/10/2017 MAN ALVARES MD, Ot T65.222A SP TOXIC EFFECT OF TOBACCO CIGARETTES, SELF SP 09/10/2017 MAN ALVARES MD, Ot T81.31XA SP DISRUPTION OF EXTERNAL OPERATION (SURGIC SP 09/10/2017 MAN ALVARES MD Ot Z68.35 SP BODY MASS INDEX (BMI) 35.0-35.9, ADULT SP 09/12/2017 MAN ALVARES MD, Ot E11.622 SP TYPE 2 DIABETES MELLITUS WITH OTHER SKIN SP 09/12/2017 MAN ALVARES MD Ot E66.01 SP MORBID (SEVERE) OBESITY DUE TO EXCESS CA SP 09/12/2017 MAN ALVARES MD Ot J44 .9 SP OBSTRUCTIVE PULMONARY DISEASE, U SP 09/12/2017 MAN ALVARES MD Ot L98.492 SP NON-PRS CHRONIC ULCER OF SKIN OF SITES W SP 09/12/2017 MAN ALVARES MD, Ot T81.31XA SP DISRUPTION OF EXTERNAL OPERATION (SURGIC SP 09/12/2017 MAN ALVARES MD, Ot Z68.35 SP BODY MASS INDEX (BMI) 35.0-35.9, ADULT SP 09/12/2017 MAN ALVARES MD, Ot E11.622 SP TYPE 2 DIABETES MELLITUS WITH OTHER SKIN SP 09/12/2017 MAN ALVARES MD Ot E66.01 SP MORBID (SEVERE) OBESITY DUE TO EXCESS CA SP 09/12/2017 MAN ALVARES MD, Ot J44 .9 SP OBSTRUCTIVE PULMONARY DISEASE, U SP 09/12/2017 MAN ALVARES MD Ot L98.492 SP NON-PRS CHRONIC ULCER OF SKIN OF SITES W SP 09/12/2017 MAN ALVARES MD, Ot T81.31XA SP DISRUPTION OF EXTERNAL OPERATION (SURGIC SP 09/12/2017 MAN ALVARES MD Ot Z68.35 SP BODY MASS INDEX (BMI) 35.0-35.9, ADULT SP 09/19/2017 MAN ALVARES MD, Ot E11.622 SP TYPE 2 DIABETES MELLITUS WITH OTHER SKIN SP 09/19/2017 MAN ALVARES MD Ot E66.01 SP MORBID (SEVERE) OBESITY DUE TO EXCESS CA SP 09/19/2017 MAN ALVARES MD Ot J44 .9 SP OBSTRUCTIVE PULMONARY DISEASE, U SP 09/19/2017 MAN ALVARES MD Ot L98.492 SP NON-PRS CHRONIC ULCER OF SKIN OF SITES W SP 09/19/2017 MAN ALVARES MD Ot T81.31XA SP DISRUPTION OF EXTERNAL OPERATION (SURGIC SP 09/19/2017 MAN ALVARES MD Ot Z68.35 SP BODY MASS INDEX (BMI) 35.0-35.9, ADULT SP 09/27/2017 MAN ALVARES MD, Ot E11.622 SP TYPE 2 DIABETES MELLITUS WITH OTHER SKIN SP 09/27/2017 MAN ALVARES MD Ot E66.01 SP MORBID (SEVERE) OBESITY DUE TO EXCESS CA SP 09/27/2017 MAN ALVARES MD Ot J44 .9 SP OBSTRUCTIVE PULMONARY DISEASE, U SP 09/27/2017 MAN ALVARES MD, Ot L98.492 SP NON-PRS CHRONIC ULCER OF SKIN OF SITES W SP 09/27/2017 MAN ALVARES MD Ot T81.31XA SP DISRUPTION OF EXTERNAL OPERATION (SURGIC SP 09/27/2017 MAN ALVARES MD Ot Z68.35 SP BODY MASS INDEX (BMI) 35.0-35.9, ADULT SP 10/05/2017 MAN ALVARES MD, Ot E11.622 SP TYPE 2 DIABETES MELLITUS WITH OTHER SKIN SP 10/05/2017 MAN ALVARES MD Ot E66.01 SP MORBID (SEVERE) OBESITY DUE TO EXCESS CA SP 10/05/2017 MAN ALVARES MD, Ot J44 .9 SP OBSTRUCTIVE PULMONARY DISEASE, U SP 10/05/2017 MAN ALVARES MD Ot L98.492 SP NON-PRS CHRONIC ULCER OF SKIN OF SITES W SP 10/05/2017 MAN ALVARES MD Ot T81.31XA SP DISRUPTION OF EXTERNAL OPERATION (SURGIC SP 10/05/2017 MAN ALVARES MD Ot Z68.35 SP BODY MASS INDEX (BMI) 35.0-35.9, ADULT SP 10/10/2017 MAN ALVARES MD, Ot E11.622 SP TYPE 2 DIABETES MELLITUS WITH OTHER SKIN SP 10/10/2017 MAN ALVARES MD Ot E66.01 SP MORBID (SEVERE) OBESITY DUE TO EXCESS CA SP 10/10/2017 MAN ALVARES MD Ot J44 .9 SP OBSTRUCTIVE PULMONARY DISEASE, U SP 10/10/2017 MAN ALVARES MD Ot L98.492 SP NON-PRS CHRONIC ULCER OF SKIN OF SITES W SP 10/10/2017 MAN ALVARES MD, Ot T81.31XA SP DISRUPTION OF EXTERNAL OPERATION (SURGIC SP 10/10/2017 MAN ALVARES MD, Ot Z68.35 SP BODY MASS INDEX (BMI) 35.0-35.9, ADULT SP 10/11/2017 MAN ALVARES MD, Ot E11.622 SP TYPE 2 DIABETES MELLITUS WITH OTHER SKIN SP 10/11/2017 MAN ALVARES MD Ot E66.01 SP MORBID (SEVERE) OBESITY DUE TO EXCESS CA SP 10/11/2017 MAN ALVARES MD, Ot J44 .9 SP OBSTRUCTIVE PULMONARY DISEASE, U SP 10/11/2017 MAN ALVARES MD, Ot L98.492 SP NON-PRS CHRONIC ULCER OF SKIN OF SITES W SP 10/11/2017 MAN ALVARES MD, Ot T81.31XA SP DISRUPTION OF EXTERNAL OPERATION (SURGIC SP 10/11/2017 MAN ALVARES MD, Ot Z68.35 SP BODY MASS INDEX (BMI) 35.0-35.9, ADULT SP 10/13/2017 MAN ALVARES MD, Ot E11.622 SP TYPE 2 DIABETES MELLITUS WITH OTHER SKIN SP 10/13/2017 MAN ALVARES MD Ot E66.01 SP MORBID (SEVERE) OBESITY DUE TO EXCESS CA SP 10/13/2017 MAN ALVARES MD, Ot J44 .9 SP OBSTRUCTIVE PULMONARY DISEASE, U SP 10/13/2017 MAN ALVARES MD Ot L98.492 SP NON-PRS CHRONIC ULCER OF SKIN OF SITES W SP 10/13/2017 MAN ALVARES MD, Ot T81.31XA SP DISRUPTION OF EXTERNAL OPERATION (SURGIC SP 10/13/2017 MAN ALVARES MD, Ot Z68.35 SP BODY MASS INDEX (BMI) 35.0-35.9, ADULT SP 10/17/2017 MAN ALVARES MD, Ot E11.622 SP TYPE 2 DIABETES MELLITUS WITH OTHER SKIN SP 10/17/2017 MAN ALVARES MD Ot E66.01 SP MORBID (SEVERE) OBESITY DUE TO EXCESS CA SP 10/17/2017 MAN ALVARES MD, Ot J44 .9 SP OBSTRUCTIVE PULMONARY DISEASE, U SP 10/17/2017 MAN ALVARES MD Ot L98.492 SP NON-PRS CHRONIC ULCER OF SKIN OF SITES W SP 10/17/2017 MAN ALVARES MD, Ot T81.31XA SP DISRUPTION OF EXTERNAL OPERATION (SURGIC SP 10/17/2017 MAN ALVARES MD Ot Z68.35 SP BODY MASS INDEX (BMI) 35.0-35.9, ADULT SP 10/18/2017 MAN ALVARES MD Ot E11.622 SP TYPE 2 DIABETES MELLITUS WITH OTHER SKIN SP 10/18/2017 MAN ALVARES MD Ot E66.01 SP MORBID (SEVERE) OBESITY DUE TO EXCESS CA SP 10/18/2017 MAN ALVARES MD Ot J44 .9 SP OBSTRUCTIVE PULMONARY DISEASE, U SP 10/18/2017 MAN ALVARES MD Ot L98.492 SP NON-PRS CHRONIC ULCER OF SKIN OF SITES W SP 10/18/2017 MAN ALVARES MD, Ot T81.31XA SP DISRUPTION OF EXTERNAL OPERATION (SURGIC SP 10/18/2017 MAN ALVARES MD Ot Z68.35 SP BODY MASS INDEX (BMI) 35.0-35.9, ADULT SP 10/18/2017 MAN ALVARES MD Ot E11.622 SP TYPE 2 DIABETES MELLITUS WITH OTHER SKIN SP 10/18/2017 MAN ALVARES MD Ot E66.01 SP MORBID (SEVERE) OBESITY DUE TO EXCESS CA SP 10/18/2017 MAN ALVARES MD Ot J44 .9 SP OBSTRUCTIVE PULMONARY DISEASE, U SP 10/18/2017 MAN ALVARES MD Ot L98.492 SP NON-PRS CHRONIC ULCER OF SKIN OF SITES W SP 10/18/2017 MAN ALVARES MD Ot T81.31XA SP DISRUPTION OF EXTERNAL OPERATION (SURGIC SP 10/18/2017 MAN ALVARES MD, Ot Z68.35 SP BODY MASS INDEX (BMI) 35.0-35.9, ADULT SP 10/19/2017 MAN ALVARES MD Ot E11.622 SP TYPE 2 DIABETES MELLITUS WITH OTHER SKIN SP 10/19/2017 MAN ALVARES MD Ot E66.01 SP MORBID (SEVERE) OBESITY DUE TO EXCESS CA SP 10/19/2017 MAN ALVARES MD Ot J44 .9 SP OBSTRUCTIVE PULMONARY DISEASE, U SP 10/19/2017 MAN ALVARES MD Ot L98.492 SP NON-PRS CHRONIC ULCER OF SKIN OF SITES W SP 10/19/2017 MAN ALVARES MD Ot T81.31XA SP DISRUPTION OF EXTERNAL OPERATION (SURGIC SP 10/19/2017 MAN ALVARES MD Ot Z68.35 SP BODY MASS INDEX (BMI) 35.0-35.9, ADULT SP 10/26/2017 MAN ALVARES MD, Ot E11.621 SP TYPE 2 DIABETES MELLITUS WITH FOOT ULCER SP 10/26/2017 MAN ALVARES MD Ot E66.01 SP MORBID (SEVERE) OBESITY DUE TO EXCESS CA SP 10/26/2017 MAN ALVARES MD Ot J44 .9 SP OBSTRUCTIVE PULMONARY DISEASE, U SP 10/26/2017 MAN ALVARES MD Ot L98.492 SP NON-PRS CHRONIC ULCER OF SKIN OF SITES W SP 10/26/2017 MAN ALVARES MD Ot T81.31XA SP DISRUPTION OF EXTERNAL OPERATION (SURGIC SP 10/26/2017 MAN ALVARES MD, Ot Z68.35 SP BODY MASS INDEX (BMI) 35.0-35.9, ADULT SP 10/27/2017 MAN ALVARES MD, Ot E11.622 SP TYPE 2 DIABETES MELLITUS WITH OTHER SKIN SP 10/27/2017 MAN ALVARES MD Ot E66.01 SP MORBID (SEVERE) OBESITY DUE TO EXCESS CA SP 10/27/2017 MAN ALVARES MD, Ot J44 .9 SP OBSTRUCTIVE PULMONARY DISEASE, U SP 10/27/2017 MAN ALVARES MD Ot L98.492 SP NON-PRS CHRONIC ULCER OF SKIN OF SITES W SP 10/27/2017 MAN ALVARES MD Ot T81.31XA SP DISRUPTION OF EXTERNAL OPERATION (SURGIC SP 10/27/2017 MAN ALVARES MD Ot Z68.35 SP BODY MASS INDEX (BMI) 35.0-35.9, ADULT SP 10/29/2017 MAN ALVARES MD, Ot E11.621 SP TYPE 2 DIABETES MELLITUS WITH FOOT ULCER SP 10/29/2017 MAN ALVARES MD Ot E66.01 SP MORBID (SEVERE) OBESITY DUE TO EXCESS CA SP 10/29/2017 MAN ALVARES MD, Ot J44 .9 SP OBSTRUCTIVE PULMONARY DISEASE, U SP 10/29/2017 MAN ALVARES MD Ot L98.492 SP NON-PRS CHRONIC ULCER OF SKIN OF SITES W SP 10/29/2017 MAN ALAVRES MD Ot T81.31XA SP DISRUPTION OF EXTERNAL OPERATION (SURGIC SP 10/29/2017 MAN ALVARES MD Ot Z68.35 SP BODY MASS INDEX (BMI) 35.0-35.9, ADULT SP 11/01/2017 MAN ALVARES MD, Ot E11.622 SP TYPE 2 DIABETES MELLITUS WITH OTHER SKIN SP 11/01/2017 MAN ALVARES MD Ot E66.01 SP MORBID (SEVERE) OBESITY DUE TO EXCESS CA SP 11/01/2017 MAN ALVARES MD Ot J44 .9 SP OBSTRUCTIVE PULMONARY DISEASE, U SP 11/01/2017 MAN ALVARES MD Ot L98.492 SP NON-PRS CHRONIC ULCER OF SKIN OF SITES W SP 11/01/2017 MAN ALVARES MD Ot T81.31XA SP DISRUPTION OF EXTERNAL OPERATION (SURGIC SP 11/01/2017 MAN ALVARES MD, Ot Z68.35 SP BODY MASS INDEX (BMI) 35.0-35.9, ADULT SP 11/01/2017 MAN ALVARES MD, Ot E11.622 SP TYPE 2 DIABETES MELLITUS WITH OTHER SKIN SP 11/01/2017 MAN ALVARES MD Ot E66.01 SP MORBID (SEVERE) OBESITY DUE TO EXCESS CA SP 11/01/2017 MAN ALVARES MD, Ot J44 .9 SP OBSTRUCTIVE PULMONARY DISEASE, U SP 11/01/2017 MAN ALVARES MD Ot L98.492 SP NON-PRS CHRONIC ULCER OF SKIN OF SITES W SP 11/01/2017 MAN ALVARES MD Ot T81.31XA SP DISRUPTION OF EXTERNAL OPERATION (SURGIC SP 11/01/2017 MAN ALVARES MD, Ot Z68.35 SP BODY MASS INDEX (BMI) 35.0-35.9, ADULT SP 11/02/2017 MAN ALVARES MD, Ot E11.622 SP TYPE 2 DIABETES MELLITUS WITH OTHER SKIN SP 11/02/2017 MAN ALVARES MD Ot E66.01 SP MORBID (SEVERE) OBESITY DUE TO EXCESS CA SP 11/02/2017 MAN ALVARES MD Ot J44 .9 SP OBSTRUCTIVE PULMONARY DISEASE, U SP 11/02/2017 MAN ALVARES MD Ot L98.492 SP NON-PRS CHRONIC ULCER OF SKIN OF SITES W SP 11/02/2017 MAN ALVARES MD Ot T81.31XA SP DISRUPTION OF EXTERNAL OPERATION (SURGIC SP 11/02/2017 MAN ALVARES MD Ot Z68.35 SP BODY MASS INDEX (BMI) 35.0-35.9, ADULT SP 11/02/2017 MAN ALVARES MD, Ot E11.622 SP TYPE 2 DIABETES MELLITUS WITH OTHER SKIN SP 11/02/2017 MAN ALVARES MD, Ot E66.01 SP MORBID (SEVERE) OBESITY DUE TO EXCESS CA SP 11/02/2017 MAN ALVARES MD, Ot J44 .9 SP OBSTRUCTIVE PULMONARY DISEASE, U SP 11/02/2017 MAN ALVARES MD, Ot L98.492 SP NON-PRS CHRONIC ULCER OF SKIN OF SITES W SP 11/02/2017 MAN ALVARES MD Ot T81.31XA SP DISRUPTION OF EXTERNAL OPERATION (SURGIC SP 11/02/2017 MAN ALVARES MD, Ot Z68.35 SP BODY MASS INDEX (BMI) 35.0-35.9, ADULT SP 11/07/2017 MAN ALVARES MD, Ot E11.622 SP TYPE 2 DIABETES MELLITUS WITH OTHER SKIN SP 11/07/2017 MAN ALVARES MD, Ot E66.01 SP MORBID (SEVERE) OBESITY DUE TO EXCESS CA SP 11/07/2017 MAN ALVARES MD, Ot J44 .9 SP OBSTRUCTIVE PULMONARY DISEASE, U SP 11/07/2017 MAN ALVARES MD, Ot L98.492 SP NON-PRS CHRONIC ULCER OF SKIN OF SITES W SP 11/07/2017 MAN ALVARES MD Ot T65.222A SP TOXIC EFFECT OF TOBACCO CIGARETTES, SELF SP 11/07/2017 MAN ALVARES MD, Ot T81.31XA SP DISRUPTION OF EXTERNAL OPERATION (SURGIC SP 11/07/2017 AMN ALVARES MD Ot Z68.35 SP BODY MASS INDEX (BMI) 35.0-35.9, ADULT SP 11/07/2017 JOE WEBER FACC, ALI FACP CCDS Ot SP NICOTINE DEPENDENCE, CIGARETTES, UNCOMPL SP 11/07/2017 JOE WEBER FACC, ALI FACP CCDS Ot 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 11/07/2017 JOE WEBER FACC, ALI FACP CCDS Ot J44.9 SP CHRONIC OBSTRUCTIVE PULMONARY DISEASE, U SP 11/07/2017 JOE WEBER FACC, ALI FACP CCDS Ot M54.12 SP RADICULOPATHY, CERVICAL REGION SP 11/07/2017 JOE WEBER FACC, ALI FACP CCDS Ot R06.02 SP SHORTNESS OF BREATH SP 11/07/2017 JOE WEBER FACC, MAGDA FACP CCDS Ot R07.9 SP CHEST PAIN, UNSPECIFIED SP 11/07/2017 JOE WEBER FACC, ALI FACP CCDS Ot R09.02 SP HYPOXEMIA SP 11/07/2017 JOE WEBER FACC, ALI FACP CCDS Ot R42 SP DIZZINESS AND GIDDINESS SP 11/07/2017 JOE WEBER FACC, ALI FACP CCDS Ot Z82.49 SP FAMILY HX OF ISCHEM HEART DIS AND OTH DI SP 11/07/2017 JOE WEBER FACC, ALI FACP CCDS Ot 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), AND CEREB INFRC W SP 11/09/2017 MAN ALVARES MD Ot E11.621 SP TYPE 2 DIABETES MELLITUS WITH FOOT ULCER SP 11/09/2017 MAN ALVARES MD Ot E66.01 SP MORBID (SEVERE) OBESITY DUE TO EXCESS CA SP 11/09/2017 MAN ALVARES MD Ot J44 .9 SP OBSTRUCTIVE PULMONARY DISEASE, U SP 11/09/2017 MAN ALVARES MD Ot L98.492 SP NON-PRS CHRONIC ULCER OF SKIN OF SITES W SP 11/09/2017 MAN ALVARES MD Ot T81.31XA SP DISRUPTION OF EXTERNAL OPERATION (SURGIC SP 11/09/2017 MAN ALVARES MD Ot Z68.35 SP BODY MASS INDEX (BMI) 35.0-35.9, ADULT SP 11/09/2017 JOE WEBER FACC, MAGDA FACP CCDS Ot SP NICOTINE DEPENDENCE, CIGARETTES, UNCOMPL SP 11/09/2017 JOE WEBER FACC, MAGDA FACP CCDS Ot 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 11/09/2017 JOE WEBER FACC, ALI FACP CCDS Ot J44.9 SP CHRONIC OBSTRUCTIVE PULMONARY DISEASE, U SP 11/09/2017 JOE WEBER FACC, ALI FACP CCDS Ot M54.12 SP RADICULOPATHY, CERVICAL REGION SP 11/09/2017 JOE WEBER FACC, ALI FACP CCDS Ot R06.02 SP SHORTNESS OF BREATH SP 11/09/2017 JOE WEBER FACC, ALI FACP CCDS Ot R07.9 SP CHEST PAIN, UNSPECIFIED SP 11/09/2017 JOE WEBER FACC, ALI FACP CCDS Ot R09.02 SP HYPOXEMIA SP 11/09/2017 JOE WEBER FAC, ALI FACP CCDS Ot R42 SP DIZZINESS AND GIDDINESS SP 11/09/2017 JOE WEBER FAC, ALI FACP CCDS Ot Z82.49 SP FAMILY HX OF ISCHEM HEART DIS AND OTH DI SP 11/09/2017 JOE WEBER FAC, ALI FACP CCDS Ot 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), AND CEREB INFRC W SP 11/14/2017 JOE WEBER FAC, ALI FACP CCDS Ot 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 11/14/2017 JOE WEBER FAC, ALI FACP CCDS Ot R06.02 SP SHORTNESS OF BREATH SP 11/14/2017 MAN ALVARES MD, Ot E11.622 SP TYPE 2 DIABETES MELLITUS WITH OTHER SKIN SP 11/14/2017 MAN ALVARES MD, Ot E66.01 SP MORBID (SEVERE) OBESITY DUE TO EXCESS CA SP 11/14/2017 MAN ALVARES MD, Ot J44 .9 SP OBSTRUCTIVE PULMONARY DISEASE, U SP 11/14/2017 MAN ALVARES MD, Ot L98.492 SP NON-PRS CHRONIC ULCER OF SKIN OF SITES W SP 11/14/2017 MAN ALVARES MD, Ot T65.222A SP TOXIC EFFECT OF TOBACCO CIGARETTES, SELF SP 11/14/2017 MAN ALVARES MD, Ot T81.31XA SP DISRUPTION OF EXTERNAL OPERATION (SURGIC SP 11/14/2017 MAN ALVARES MD Ot Z68.35 SP BODY MASS INDEX (BMI) 35.0-35.9, ADULT SP 11/15/2017 MAN ALVARES MD, Ot E11.622 SP TYPE 2 DIABETES MELLITUS WITH OTHER SKIN SP 11/15/2017 MAN ALVARES MD, Ot E66.01 SP MORBID (SEVERE) OBESITY DUE TO EXCESS CA SP 11/15/2017 MAN ALVARES MD, Ot J44 .9 SP OBSTRUCTIVE PULMONARY DISEASE, U SP 11/15/2017 MAN ALVARES MD, Ot L98.492 SP NON-PRS CHRONIC ULCER OF SKIN OF SITES W SP 11/15/2017 MAN ALVARES MD, Ot T65.222A SP TOXIC EFFECT OF TOBACCO CIGARETTES, SELF SP 11/15/2017 MAN ALVARES MD, Ot T81.31XA SP DISRUPTION OF EXTERNAL OPERATION (SURGIC SP 11/17/2017 MAN ALVARES MD, Ot E11.622 SP TYPE 2 DIABETES MELLITUS WITH OTHER SKIN SP 11/17/2017 MAN ALVARES MD, Ot E66.01 SP MORBID (SEVERE) OBESITY DUE TO EXCESS CA SP 11/17/2017 MAN ALVARES MD, Ot J44 .9 SP OBSTRUCTIVE PULMONARY DISEASE, U SP 11/17/2017 MAN ALVARES MD, Ot L98.492 SP NON-PRS CHRONIC ULCER OF SKIN OF SITES W SP 11/17/2017 MAN ALVARES MD Ot T81.31XA SP DISRUPTION OF EXTERNAL OPERATION (SURGIC SP 11/17/2017 MAN ALVARES MD, Ot Z68.35 SP BODY MASS INDEX (BMI) 35.0-35.9, ADULT SP 11/17/2017 MAN ALVARES MD, Ot E11.622 SP TYPE 2 DIABETES MELLITUS WITH OTHER SKIN SP 11/17/2017 MAN ALVARES MD, Ot L98.492 SP NON-PRS CHRONIC ULCER OF SKIN OF SITES W SP 11/23/2017 MAN ALVARES MD, Ot E11.622 SP TYPE 2 DIABETES MELLITUS WITH OTHER SKIN SP 11/23/2017 MAN ALVARES MD, Ot E66.01 SP MORBID (SEVERE) OBESITY DUE TO EXCESS CA SP 11/23/2017 MAN ALVARES MD, Ot J44 .9 SP OBSTRUCTIVE PULMONARY DISEASE, U SP 11/23/2017 MAN ALVARES MD, Ot L98.492 SP NON-PRS CHRONIC ULCER OF SKIN OF SITES W SP 11/23/2017 MAN ALVARES MD, Ot T65.222A SP TOXIC EFFECT OF TOBACCO CIGARETTES, SELF SP 11/23/2017 MAN ALVARES MD, Ot T81.31XA SP DISRUPTION OF EXTERNAL OPERATION (SURGIC SP 11/23/2017 MAN ALVARES MD, Ot Z68.35 SP BODY MASS INDEX (BMI) 35.0-35.9, ADULT SP 11/24/2017 MAN ALVARES MD, Ot E11.622 SP TYPE 2 DIABETES MELLITUS WITH OTHER SKIN SP 11/24/2017 MAN ALVARSE MD Ot E66.01 SP MORBID (SEVERE) OBESITY DUE TO EXCESS CA SP 11/24/2017 MAN ALVARES MD, Ot J44 .9 SP OBSTRUCTIVE PULMONARY DISEASE, U SP 11/24/2017 MAN ALVARES MD, Ot L98.492 SP NON-PRS CHRONIC ULCER OF SKIN OF SITES W SP 11/24/2017 MAN ALVARES MD Ot T65.222A SP TOXIC EFFECT OF TOBACCO CIGARETTES, SELF SP 11/24/2017 MAN ALVARES MD Ot T81.31XA SP DISRUPTION OF EXTERNAL OPERATION (SURGIC SP 11/29/2017 MAN ALVARES MD Ot E11.622 SP TYPE 2 DIABETES MELLITUS WITH OTHER SKIN SP 11/29/2017 MAN ALVARES MD Ot E66.01 SP MORBID (SEVERE) OBESITY DUE TO EXCESS CA SP 11/29/2017 MAN ALVARES MD Ot J44 .9 SP OBSTRUCTIVE PULMONARY DISEASE, U SP 11/29/2017 MAN ALVARES MD Ot L98.492 SP NON-PRS CHRONIC ULCER OF SKIN OF SITES W SP 11/29/2017 MAN ALVARES MD, Ot T65.222A SP TOXIC EFFECT OF TOBACCO CIGARETTES, SELF SP 11/29/2017 MAN ALVARES MD, Ot T81.31XA SP DISRUPTION OF EXTERNAL OPERATION (SURGIC SP 11/29/2017 MAN ALVARES MD Ot Z68.35 SP BODY MASS INDEX (BMI) 35.0-35.9, ADULT SP 11/29/2017 MAN ALVARES MD Ot E11.622 SP TYPE 2 DIABETES MELLITUS WITH OTHER SKIN SP 11/29/2017 MAN ALVARES MD Ot E66.01 SP MORBID (SEVERE) OBESITY DUE TO EXCESS CA SP 11/29/2017 MAN ALVARES MD, Ot J44 .9 SP OBSTRUCTIVE PULMONARY DISEASE, U SP 11/29/2017 MAN ALVARES MD Ot L98.492 SP NON-PRS CHRONIC ULCER OF SKIN OF SITES W SP 11/29/2017 MAN ALVARES MD, Ot T65.222A SP TOXIC EFFECT OF TOBACCO CIGARETTES, SELF SP 11/29/2017 MAN ALVARES MD Ot T81.31XA SP DISRUPTION OF EXTERNAL OPERATION (SURGIC SP 11/29/2017 MAN ALVARES MD Ot Z68.35 SP BODY MASS INDEX (BMI) 35.0-35.9, ADULT SP 12/04/2017 MAN ALVARES MD Ot E11.622 SP TYPE 2 DIABETES MELLITUS WITH OTHER SKIN SP 12/04/2017 MAN ALVARES MD Ot E66.01 SP MORBID (SEVERE) OBESITY DUE TO EXCESS CA SP 12/04/2017 MAN ALVARES MD, Ot J44 .9 SP OBSTRUCTIVE PULMONARY DISEASE, U SP 12/04/2017 MAN ALVARES MD, Ot L98.492 SP NON-PRS CHRONIC ULCER OF SKIN OF SITES W SP 12/04/2017 MAN ALVARES MD, Ot T65.222A SP TOXIC EFFECT OF TOBACCO CIGARETTES, SELF SP 12/04/2017 MAN ALVARES MD, Ot T81.31XA SP DISRUPTION OF EXTERNAL OPERATION (SURGIC SP 12/04/2017 MAN ALVARES MD, Ot Z68.35 SP BODY MASS INDEX (BMI) 35.0-35.9, ADULT SP 12/04/2017 JOE WEBER FAC, ALI FACP CCDS Ot 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 12/04/2017 JOE WEBER FAC, ALI FACP CCDS Ot R06.02 SP SHORTNESS OF BREATH SP 12/08/2017 MAN ALVARES MD, Ot E11.622 SP TYPE 2 DIABETES MELLITUS WITH OTHER SKIN SP 12/08/2017 MAN ALVARES MD, Ot E66.01 SP MORBID (SEVERE) OBESITY DUE TO EXCESS CA SP 12/08/2017 MAN ALVARES MD, Ot J44 .9 SP OBSTRUCTIVE PULMONARY DISEASE, U SP 12/08/2017 MAN ALVARES MD, Ot L98.492 SP NON-PRS CHRONIC ULCER OF SKIN OF SITES W SP 12/08/2017 MAN ALVARES MD, Ot T65.222A SP TOXIC EFFECT OF TOBACCO CIGARETTES, SELF SP 12/08/2017 MAN ALVARES MD, Ot T81.31XA SP DISRUPTION OF EXTERNAL OPERATION (SURGIC SP 12/11/2017 MAN ALVARES MD, Ot E11.622 SP TYPE 2 DIABETES MELLITUS WITH OTHER SKIN SP 12/11/2017 MAN ALVARES MD, Ot E66.01 SP MORBID (SEVERE) OBESITY DUE TO EXCESS CA SP 12/11/2017 MAN ALVARES MD, Ot J44 .9 SP OBSTRUCTIVE PULMONARY DISEASE, U SP 12/11/2017 MAN ALVARES MD, Ot L98.492 SP NON-PRS CHRONIC ULCER OF SKIN OF SITES W SP 12/11/2017 MAN ALVARES MD, Ot T65.222A SP TOXIC EFFECT OF TOBACCO CIGARETTES, SELF SP 12/11/2017 MAN ALVARES MD, Ot T81.31XA SP DISRUPTION OF EXTERNAL OPERATION (SURGIC SP 12/11/2017 MAN ALVARES MD, Ot Z68.35 SP BODY MASS INDEX (BMI) 35.0-35.9, ADULT SP 12/13/2017 MAN ALVARES MD, Ot E11.622 SP TYPE 2 DIABETES MELLITUS WITH OTHER SKIN SP 12/13/2017 MAN ALVARES MD, Ot E66.01 SP MORBID (SEVERE) OBESITY DUE TO EXCESS CA SP 12/13/2017 MAN ALVARES MD, Ot J44 .9 SP OBSTRUCTIVE PULMONARY DISEASE, U SP 12/13/2017 MAN ALVARES MD, Ot L98.492 SP NON-PRS CHRONIC ULCER OF SKIN OF SITES W SP 12/13/2017 MAN ALVARES MD, Ot T65.222A SP TOXIC EFFECT OF TOBACCO CIGARETTES, SELF SP 12/13/2017 MAN ALVARES MD, Ot T81.31XA SP DISRUPTION OF EXTERNAL OPERATION (SURGIC SP 12/13/2017 MAN ALVARES MD, Ot Z68.35 SP BODY MASS INDEX (BMI) 35.0-35.9, ADULT SP 12/14/2017 MAN ALVARES MD, Ot E11.622 SP TYPE 2 DIABETES MELLITUS WITH OTHER SKIN SP 12/14/2017 MAN ALVARES MD, Ot E66.01 SP MORBID (SEVERE) OBESITY DUE TO EXCESS CA SP 12/14/2017 MAN ALVARES MD, Ot J44 .9 SP OBSTRUCTIVE PULMONARY DISEASE, U SP 12/14/2017 MAN ALVARES MD, Ot L98.492 SP NON-PRS CHRONIC ULCER OF SKIN OF SITES W SP 12/14/2017 MAN ALVARES MD, Ot T65.222A SP TOXIC EFFECT OF TOBACCO CIGARETTES, SELF SP 12/14/2017 MAN ALVARES MD, Ot T81.31XA SP DISRUPTION OF EXTERNAL OPERATION (SURGIC SP 12/14/2017 MAN ALVARES MD, Ot Z68.35 SP BODY MASS INDEX (BMI) 35.0-35.9, ADULT SP 12/29/2017 MAN ALVARES MD, Ot E11.622 SP TYPE 2 DIABETES MELLITUS WITH OTHER SKIN SP 12/29/2017 MAN ALVARES MD Ot E66.01 SP MORBID (SEVERE) OBESITY DUE TO EXCESS CA SP 12/29/2017 MAN ALVARES MD, Ot J44 .9 SP OBSTRUCTIVE PULMONARY DISEASE, U SP 12/29/2017 MAN ALVARES MD, Ot L98.492 SP NON-PRS CHRONIC ULCER OF SKIN OF SITES W SP 12/29/2017 MAN ALVARES MD Ot T65.222A SP TOXIC EFFECT OF TOBACCO CIGARETTES, SELF SP 12/29/2017 MAN ALVARES MD Ot T81.31XA SP DISRUPTION OF EXTERNAL OPERATION (SURGIC SP 12/29/2017 MAN ALVARES MD Ot Z68.35 SP BODY MASS INDEX (BMI) 35.0-35.9, ADULT SP 02/02/2018 Ot R13.10 DYS PHAGIA, SP SP 03/19/2018 SURYA CABAN MD Ot 786. 09 SP ABNORM NEC SP 03/19/2018 SURYA CABAN MD Ot 786. 50 SP PAIN NOS SP 03/19/2018 DORIS LAYTON MD Ot 721 .0 SP SPONDYLOSIS SP 03/19/2018 DORIS LAYTON MD Ot 724.02 SP SPINAL STENOSIS, LUMBAR REG, W/OUT NEURO SP 03/19/2018 DORIS LAYTON MD Ot L02.11 SP CUTANEOUS ABSCESS OF NECK SP 03/19/2018 DORIS LAYTON MD Ot R59 .0 SP ENLARGED LYMPH NODES SP 03/19/2018 DORIS LAYTON MD Ot H53 .2 SP SP 03/19/2018 Ot M75.101 UN SP ROTATR-CUFF SPTEAR/RUPTR OF RIGHT LEWIS SP 03/19/2018 DORIS LAYTON MD Ot M47.892 SP OTHER SPONDYLOSIS, CERVICAL REGION SP 03/19/2018 JT FERNANDEZ DO Ot E66. 9 SP UNSPECIFIED SP 03/19/2018 JT FERNANDEZ DO Ot F41. 9 SP DISORDER, UNSPECIFIED SP 03/19/2018 JT FERNANDEZ DO Ot I20. 9 SP PECTORIS, UNSPECIFIED SP 03/19/2018 JT FERNANDEZ DO Ot J44. 9 SP OBSTRUCTIVE PULMONARY DISEASE, U SP 03/19/2018 JT FERNANDEZ DO Ot J45.909 SP UNSPECIFIED ASTHMA, UNCOMPLICATED SP 03/19/2018 JT FERNANDEZ DO Ot Z72. 0 SP USE SP 03/19/2018 JT FERNANDEZ DO Ot G47. 33 SP SLEEP APNEA (ADULT) (PEDIATR SP 03/19/2018 LARRY CHING APRN Ot R10.11 SP RIGHT UPPER QUADRANT PAIN SP 03/19/2018 LARRY CHING TRACK PRODUCTION ENGINEER Ot R10.11 SP RIGHT UPPER QUADRANT PAIN SP 03/19/2018 JOE WEBER FACC, ALI FACP CCDS Ot I73.9 SP PERIPHERAL VASCULAR DISEASE, UNSPECIFIED SP 03/19/2018 JOE WEBER FACC, ALI FACP CCDS Ot E66.09 SP OTHER OBESITY DUE TO EXCESS CALORIES SP 03/19/2018 JOE WEBER FACC, ALI FACP CCDS Ot E78.4 SP OTHER HYPERLIPIDEMIA SP 03/19/2018 JOE WEBER FACC, ALI FACP CCDS Ot I10 SP ESSENTIAL (PRIMARY) HYPERTENSION SP 03/19/2018 JOE WEBER FACC, ALI FACP CCDS Ot J43.8 SP OTHER EMPHYSEMA SP 03/19/2018 JOE WEBER FACC, ALI FACP CCDS Ot R06.02 SP SHORTNESS OF BREATH SP 03/19/2018 JOE WEBER FACC, ALI FACP CCDS Ot R07.89 SP OTHER CHEST PAIN SP 03/19/2018 JOE WEBER FACC, ALI FACP CCDS Ot Z72.0 SP TOBACCO USE SP 03/19/2018 JOE WEBER FACC, ALI FACP CCDS Ot Z86.79 SP PERSONAL HISTORY OF OTHER DISEASES OF TH SP 03/19/2018 EMELIA GLOVER COUNSELING PROGRAM LEADER Ot 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 03/19/2018 EMELIA GLOVER COUNSELING PROGRAM LEADER Ot I97.610 SP POSTPROC HEMOR OF A CIRC SYS ORG FOLLOWI SP 03/19/2018 EMELIA GLOVER COUNSELING PROGRAM LEADER Ot T81.719A SP COMPLICATION OF UNSP ARTERY FOLLOWING A SP 03/19/2018 EMELIA GLOVER COUNSELING PROGRAM LEADER Ot E78.4 SP OTHER HYPERLIPIDEMIA SP 03/19/2018 EMELIA GLOVER COUNSELING PROGRAM LEADER Ot I 10 SP (PRIMARY) HYPERTENSION SP 03/19/2018 EMELIA GLOVER COUNSELING PROGRAM LEADER Ot 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 03/19/2018 EMELIA GLOVER COUNSELING PROGRAM LEADER Ot I65.23 SP OCCLUSION AND STENOSIS OF BILATERAL [place] SP 03/19/2018 ELIZABETH WEBER, MAN Dale Ot F17.200 SP NICOTINE DEPENDENCE, UNSPECIFIED, UNCOMP SP 03/19/2018 ELIZABETH WEBER, MAN Dale Ot J31 .2 SP PHARYNGITIS SP 03/19/2018 ADALBERTOEMELIA L COUNSELING PROGRAM LEADER Ot E78.4 SP OTHER HYPERLIPIDEMIA SP 03/19/2018 BAIMA, EMELIA L COUNSELING PROGRAM LEADER Ot I 10 SP (PRIMARY) HYPERTENSION SP 03/19/2018 BAIMA, EMELIA L COUNSELING PROGRAM LEADER Ot I65.23 SP OCCLUSION AND STENOSIS OF BILATERAL [place] SP 03/19/2018 BAIMA, EMELIA L COUNSELING PROGRAM LEADER Ot R06.02 SP SHORTNESS OF BREATH SP 03/19/2018 BAIMA, EMELIA L COUNSELING PROGRAM LEADER Ot Z72.0 SP TOBACCO USE SP 03/19/2018 KINJAL WEBER, DORIS Butcher Ot M47.892 SP OTHER SPONDYLOSIS, CERVICAL REGION SP 03/19/2018 BAIMA, EMELIA L COUNSELING PROGRAM LEADER Ot E78.4 SP OTHER HYPERLIPIDEMIA SP 03/19/2018 BAIMA, EMELIA L COUNSELING PROGRAM LEADER Ot I 10 SP (PRIMARY) HYPERTENSION SP 03/19/2018 JOE WEBER FACC, ALI FACP CCDS Ot E11.9 SP TYPE 2 DIABETES MELLITUS WITHOUT COMPLIC SP 03/19/2018 JOE WEBER FACC, ALI FACP CCDS Ot E66.9 SP OBESITY, UNSPECIFIED SP 03/19/2018 JOE WEBER FACC, ALI FACP CCDS Ot 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 03/19/2018 JOE WEBER FACC, ALI FACP CCDS Ot 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 03/19/2018 JOE WEBER FACC, ALI FACP CCDS Ot J43.8 SP OTHER EMPHYSEMA SP 03/19/2018 JOE WEBER FACC, ALI FACP CCDS Ot R06.02 SP SHORTNESS OF BREATH SP 03/19/2018 JOE WEBER FACC, ALI FACP CCDS Ot R07.89 SP OTHER CHEST PAIN SP 03/19/2018 JOE WEBER FACC, ALI FACP CCDS Ot R42 SP DIZZINESS AND GIDDINESS SP 03/19/2018 JOE WEBER FACC, ALI FACP CCDS Ot Z72.0 SP TOBACCO USE SP 03/19/2018 MAN ALVARES MD Ot E11.622 SP TYPE 2 DIABETES MELLITUS WITH OTHER SKIN SP 03/19/2018 MAN ALVARES MD Ot E66.01 SP MORBID (SEVERE) OBESITY DUE TO EXCESS CA SP 03/19/2018 MAN ALVARES MD Ot J44 .9 SP OBSTRUCTIVE PULMONARY DISEASE, U SP 03/19/2018 MAN ALVARES MD, Ot L76.34 SP POSTPROC SEROMA OF SKIN, SUBCU FOLLOWING SP 03/19/2018 MAN ALVARES MD, Ot L98.492 SP NON-PRS CHRONIC ULCER OF SKIN OF SITES W SP 03/19/2018 MAN ALVARES MD, Ot T65.222A SP TOXIC EFFECT OF TOBACCO CIGARETTES, SELF SP 03/19/2018 MAN ALVARES MD, Ot T81.31XA SP DISRUPTION OF EXTERNAL OPERATION (SURGIC SP 03/19/2018 KINJAL WEBER, DORIS Butcher Ot I25.84 SP CORONARY ATHEROSCLEROSIS DUE TO CALCIFIE SP 03/19/2018 DORIS LAYTON MD Ot J43 .9 SP UNSPECIFIED SP 03/19/2018 DORIS LAYTON MD Ot J84.10 SP PULMONARY FIBROSIS, UNSPECIFIED SP 03/19/2018 MAN ALVARES MD, Ot E11.622 SP TYPE 2 DIABETES MELLITUS WITH OTHER SKIN SP 03/19/2018 MAN ALVARES MD, Ot E66.01 SP MORBID (SEVERE) OBESITY DUE TO EXCESS CA SP 03/19/2018 MAN ALVARES MD, Ot J44 .9 SP OBSTRUCTIVE PULMONARY DISEASE, U SP 03/19/2018 MAN ALVARES MD, Ot L76.34 SP POSTPROC SEROMA OF SKIN, SUBCU FOLLOWING SP 03/19/2018 MAN ALVARES MD, Ot L98.492 SP NON-PRS CHRONIC ULCER OF SKIN OF SITES W SP 03/19/2018 MAN ALVARES MD, Ot T65.222A SP TOXIC EFFECT OF TOBACCO CIGARETTES, SELF SP 03/19/2018 MAN ALVARES MD, Ot T81.31XA SP DISRUPTION OF EXTERNAL OPERATION (SURGIC SP 03/19/2018 MAN ALVARES MD, Ot E11.622 SP TYPE 2 DIABETES MELLITUS WITH OTHER SKIN SP 03/19/2018 MAN ALVARES MD Ot E66.01 SP MORBID (SEVERE) OBESITY DUE TO EXCESS CA SP 03/19/2018 MAN ALVARES MD, Ot J44 .9 SP OBSTRUCTIVE PULMONARY DISEASE, U SP 03/19/2018 MAN ALVARES MD, Ot L98.492 SP NON-PRS CHRONIC ULCER OF SKIN OF SITES W SP 03/19/2018 MAN ALVARES MD, Ot T65.222A SP TOXIC EFFECT OF TOBACCO CIGARETTES, SELF SP 03/19/2018 MAN ALVARES MD Ot T81.31XA SP DISRUPTION OF EXTERNAL OPERATION (SURGIC SP 03/19/2018 MAN ALVARES MD Ot Z68.35 SP BODY MASS INDEX (BMI) 35.0-35.9, ADULT SP 03/19/2018 DYLAN PRADHAN MD Ot E11.6 22 SP 2 DIABETES MELLITUS WITH OTHER SKIN SP 03/19/2018 DYLAN PRADHAN MD Ot E66.0 1 SP (SEVERE) OBESITY DUE TO EXCESS CA SP 03/19/2018 DYLAN PRADHAN MD Ot J44.9 SP OBSTRUCTIVE PULMONARY DISEASE, U SP 03/19/2018 DYLAN PRADHAN MD Ot L98.4 92 SPPRS CHRONIC ULCER OF SKIN OF SITES W SP 03/19/2018 DYLAN PRADHAN MD Ot T65.222A SP TOXIC EFFECT OF TOBACCO CIGARETTES, SELF SP 03/19/2018 DYLAN PRADHAN MD, Ot T81.31XA SP DISRUPTION OF EXTERNAL OPERATION (SURGIC SP 03/19/2018 DYLAN PRADHAN MD Ot Z68.3 5 SP MASS INDEX (BMI) 35.0-35.9, ADULT SP 03/19/2018 MAN ALVARES MD Ot E11.622 SP TYPE 2 DIABETES MELLITUS WITH OTHER SKIN SP 03/19/2018 MAN ALVARES MD Ot E66.01 SP MORBID (SEVERE) OBESITY DUE TO EXCESS CA SP 03/19/2018 MAN ALVARES MD, Ot J44 .9 SP OBSTRUCTIVE PULMONARY DISEASE, U SP 03/19/2018 MAN ALVARES MD Ot L98.492 SP NON-PRS CHRONIC ULCER OF SKIN OF SITES W SP 03/19/2018 MAN ALVARES MD Ot T65.222A SP TOXIC EFFECT OF TOBACCO CIGARETTES, SELF SP 03/19/2018 MAN ALVARES MD, Ot T81.31XA SP DISRUPTION OF EXTERNAL OPERATION (SURGIC SP 03/19/2018 MAN ALVARES MD, Ot Z68.35 SP BODY MASS INDEX (BMI) 35.0-35.9, ADULT SP 03/19/2018 MAN ALVARES MD Ot E11.622 SP TYPE 2 DIABETES MELLITUS WITH OTHER SKIN SP 03/19/2018 MAN ALVARES MD Ot E66.01 SP MORBID (SEVERE) OBESITY DUE TO EXCESS CA SP 03/19/2018 MAN ALVARES MD Ot J44 .9 SP OBSTRUCTIVE PULMONARY DISEASE, U SP 03/19/2018 MAN ALVARES MD Ot L98.492 SP NON-PRS CHRONIC ULCER OF SKIN OF SITES W SP 03/19/2018 MAN ALVARES MD Ot T81.31XA SP DISRUPTION OF EXTERNAL OPERATION (SURGIC SP 03/19/2018 MAN ALVARES MD Ot Z68.35 SP BODY MASS INDEX (BMI) 35.0-35.9, ADULT SP 03/19/2018 MAN ALVARES MD Ot E11.622 SP TYPE 2 DIABETES MELLITUS WITH OTHER SKIN SP 03/19/2018 MAN ALVARES MD Ot E66.01 SP MORBID (SEVERE) OBESITY DUE TO EXCESS CA SP 03/19/2018 MAN ALVARES MD Ot J44 .9 SP OBSTRUCTIVE PULMONARY DISEASE, U SP 03/19/2018 MAN ALVARES MD Ot L98.492 SP NON-PRS CHRONIC ULCER OF SKIN OF SITES W SP 03/19/2018 MAN ALVARES MD Ot T81.31XA SP DISRUPTION OF EXTERNAL OPERATION (SURGIC SP 03/19/2018 MAN ALVARES MD Ot Z68.35 SP BODY MASS INDEX (BMI) 35.0-35.9, ADULT SP 03/19/2018 MAN ALVARES MD Ot E11.622 SP TYPE 2 DIABETES MELLITUS WITH OTHER SKIN SP 03/19/2018 MAN ALVARES MD Ot E66.01 SP MORBID (SEVERE) OBESITY DUE TO EXCESS CA SP 03/19/2018 MAN ALVARES MD Ot J44 .9 SP OBSTRUCTIVE PULMONARY DISEASE, U SP 03/19/2018 MAN ALVARES MD Ot L98.492 SP NON-PRS CHRONIC ULCER OF SKIN OF SITES W SP 03/19/2018 MAN ALVARES MD Ot T81.31XA SP DISRUPTION OF EXTERNAL OPERATION (SURGIC SP 03/19/2018 MAN ALVARES MD Ot Z68.35 SP BODY MASS INDEX (BMI) 35.0-35.9, ADULT SP 03/19/2018 MAN ALVARES MD Ot E11.622 SP TYPE 2 DIABETES MELLITUS WITH OTHER SKIN SP 03/19/2018 MAN ALVARES MD Ot E66.01 SP MORBID (SEVERE) OBESITY DUE TO EXCESS CA SP 03/19/2018 MAN ALVARES MD Ot J44 .9 SP OBSTRUCTIVE PULMONARY DISEASE, U SP 03/19/2018 MAN ALVARES MD Ot L98.492 SP NON-PRS CHRONIC ULCER OF SKIN OF SITES W SP 03/19/2018 MAN ALVARES MD Ot T81.31XA SP DISRUPTION OF EXTERNAL OPERATION (SURGIC SP 03/19/2018 MAN ALVARES MD Ot Z68.35 SP BODY MASS INDEX (BMI) 35.0-35.9, ADULT SP 03/19/2018 MAN ALVARES MD Ot E11.622 SP TYPE 2 DIABETES MELLITUS WITH OTHER SKIN SP 03/19/2018 MAN ALVARES MD Ot E66.01 SP MORBID (SEVERE) OBESITY DUE TO EXCESS CA SP 03/19/2018 MAN ALVARES MD Ot J44 .9 SP OBSTRUCTIVE PULMONARY DISEASE, U SP 03/19/2018 MAN ALVARES MD Ot L98.492 SP NON-PRS CHRONIC ULCER OF SKIN OF SITES W SP 03/19/2018 MAN ALVARES MD Ot T81.31XA SP DISRUPTION OF EXTERNAL OPERATION (SURGIC SP 03/19/2018 MAN ALVARES MD Ot Z68.35 SP BODY MASS INDEX (BMI) 35.0-35.9, ADULT SP 03/19/2018 MAN ALVARES MD Ot E11.622 SP TYPE 2 DIABETES MELLITUS WITH OTHER SKIN SP 03/19/2018 MAN ALVARES MD Ot E66.01 SP MORBID (SEVERE) OBESITY DUE TO EXCESS CA SP 03/19/2018 MAN ALVARES MD Ot J44 .9 SP OBSTRUCTIVE PULMONARY DISEASE, U SP 03/19/2018 MAN ALVARES MD Ot L98.492 SP NON-PRS CHRONIC ULCER OF SKIN OF SITES W SP 03/19/2018 MAN ALVARES MD Ot T81.31XA SP DISRUPTION OF EXTERNAL OPERATION (SURGIC SP 03/19/2018 MAN ALVARES MD Ot Z68.35 SP BODY MASS INDEX (BMI) 35.0-35.9, ADULT SP 03/19/2018 MAN ALVARES MD Ot E11.621 SP TYPE 2 DIABETES MELLITUS WITH FOOT ULCER SP 03/19/2018 MAN ALVARES MD Ot E66.01 SP MORBID (SEVERE) OBESITY DUE TO EXCESS CA SP 03/19/2018 MAN ALVARES MD Ot J44 .9 SP OBSTRUCTIVE PULMONARY DISEASE, U SP 03/19/2018 MAN ALVARES MD Ot L98.492 SP NON-PRS CHRONIC ULCER OF SKIN OF SITES W SP 03/19/2018 MAN ALVARES MD Ot T81.31XA SP DISRUPTION OF EXTERNAL OPERATION (SURGIC SP 03/19/2018 MAN ALVARES MD Ot Z68.35 SP BODY MASS INDEX (BMI) 35.0-35.9, ADULT SP 03/19/2018 MAN ALVARES MD, Ot E11.622 SP TYPE 2 DIABETES MELLITUS WITH OTHER SKIN SP 03/19/2018 MAN ALVARES MD Ot E66.01 SP MORBID (SEVERE) OBESITY DUE TO EXCESS CA SP 03/19/2018 MAN ALVARES MD, Ot J44 .9 SP OBSTRUCTIVE PULMONARY DISEASE, U SP 03/19/2018 MAN ALVARES MD Ot L98.492 SP NON-PRS CHRONIC ULCER OF SKIN OF SITES W SP 03/19/2018 MAN ALVARES MD, Ot T81.31XA SP DISRUPTION OF EXTERNAL OPERATION (SURGIC SP 03/19/2018 MAN ALVARES MD, Ot Z68.35 SP BODY MASS INDEX (BMI) 35.0-35.9, ADULT SP 03/19/2018 MAN ALVARES MD, Ot E11.622 SP TYPE 2 DIABETES MELLITUS WITH OTHER SKIN SP 03/19/2018 MAN ALVARES MD Ot L98.492 SP NON-PRS CHRONIC ULCER OF SKIN OF SITES W SP 03/19/2018 MAN ALVARES MD, Ot E11.622 SP TYPE 2 DIABETES MELLITUS WITH OTHER SKIN SP 03/19/2018 MAN ALVARES MD Ot E66.01 SP MORBID (SEVERE) OBESITY DUE TO EXCESS CA SP 03/19/2018 MAN ALVARES MD, Ot J44 .9 SP OBSTRUCTIVE PULMONARY DISEASE, U SP 03/19/2018 MAN ALVARES MD Ot L98.492 SP NON-PRS CHRONIC ULCER OF SKIN OF SITES W SP 03/19/2018 MAN ALVARES MD Ot T65.222A SP TOXIC EFFECT OF TOBACCO CIGARETTES, SELF SP 03/19/2018 MAN ALVARES MD Ot T81.31XA SP DISRUPTION OF EXTERNAL OPERATION (SURGIC SP 03/19/2018 MAN ALVARES MD Ot E11.622 SP TYPE 2 DIABETES MELLITUS WITH OTHER SKIN SP 03/19/2018 MAN ALVARES MD Ot E66.01 SP MORBID (SEVERE) OBESITY DUE TO EXCESS CA SP 03/19/2018 MAN ALVARES MD, Ot J44 .9 SP OBSTRUCTIVE PULMONARY DISEASE, U SP 03/19/2018 MAN ALVARES MD, Ot L98.492 SP NON-PRS CHRONIC ULCER OF SKIN OF SITES W SP 03/19/2018 MAN ALVARES MD, Ot T65.222A SP TOXIC EFFECT OF TOBACCO CIGARETTES, SELF SP 03/19/2018 MAN ALVARES MD, Ot T81.31XA SP DISRUPTION OF EXTERNAL OPERATION (SURGIC SP 03/19/2018 MAN ALVARES MD, Ot Z68.35 SP BODY MASS INDEX (BMI) 35.0-35.9, ADULT SP 03/19/2018 JOE WEBER FAC, ALI FACP CCDS Ot 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 03/19/2018 JOE WEBER FAC, ALI FACP CCDS Ot R06.02 SP SHORTNESS OF BREATH SP 03/19/2018 MAN ALVARES MD, Ot E11.622 SP TYPE 2 DIABETES MELLITUS WITH OTHER SKIN SP 03/19/2018 MAN ALVARES MD, Ot E66.01 SP MORBID (SEVERE) OBESITY DUE TO EXCESS CA SP 03/19/2018 MAN ALVARES MD, Ot J44 .9 SP OBSTRUCTIVE PULMONARY DISEASE, U SP 03/19/2018 MAN ALVARES MD, Ot L98.492 SP NON-PRS CHRONIC ULCER OF SKIN OF SITES W SP 03/19/2018 MAN ALVARES MD, Ot T65.222A SP TOXIC EFFECT OF TOBACCO CIGARETTES, SELF SP 03/19/2018 MAN ALVARES MD, Ot T81.31XA SP DISRUPTION OF EXTERNAL OPERATION (SURGIC SP 03/19/2018 MAN ALVARES MD, Ot Z68.35 SP BODY MASS INDEX (BMI) 35.0-35.9, ADULT SP 03/19/2018 MAN ALVARES MD, Ot E11.622 SP TYPE 2 DIABETES MELLITUS WITH OTHER SKIN SP 03/19/2018 MAN ALVARES MD Ot E66.01 SP MORBID (SEVERE) OBESITY DUE TO EXCESS CA SP 03/19/2018 MAN ALVARES MD, Ot J44 .9 SP OBSTRUCTIVE PULMONARY DISEASE, U SP 03/19/2018 MAN ALVARES MD, Ot L98.492 SP NON-PRS CHRONIC ULCER OF SKIN OF SITES W SP 03/19/2018 MAN ALVARES MD, Ot T65.222A SP TOXIC EFFECT OF TOBACCO CIGARETTES, SELF SP 03/19/2018 MAN ALVARES MD, Ot T81.31XA SP DISRUPTION OF EXTERNAL OPERATION (SURGIC SP 03/19/2018 MAN ALVARES MD, Ot Z68.35 SP BODY MASS INDEX (BMI) 35.0-35.9, ADULT SP 03/19/2018 MAN ALVARES MD, Ot E11.622 SP TYPE 2 DIABETES MELLITUS WITH OTHER SKIN SP 03/19/2018 MAN ALVARES MD Ot E66.01 SP MORBID (SEVERE) OBESITY DUE TO EXCESS CA SP 03/19/2018 MAN ALVARES MD, Ot J44 .9 SP OBSTRUCTIVE PULMONARY DISEASE, U SP 03/19/2018 MAN ALVARES MD Ot L98.492 SP NON-PRS CHRONIC ULCER OF SKIN OF SITES W SP 03/19/2018 MAN ALVARES MD Ot T65.222A SP TOXIC EFFECT OF TOBACCO CIGARETTES, SELF SP 03/19/2018 MAN ALVARES MD, Ot T81.31XA SP DISRUPTION OF EXTERNAL OPERATION (SURGIC SP 03/19/2018 MAN ALVARES MD, Ot E11.622 SP TYPE 2 DIABETES MELLITUS WITH OTHER SKIN SP 03/19/2018 MAN ALVARES MD Ot E66.01 SP MORBID (SEVERE) OBESITY DUE TO EXCESS CA SP 03/19/2018 MAN ALVARES MD, Ot J44 .9 SP OBSTRUCTIVE PULMONARY DISEASE, U SP 03/19/2018 MAN ALVARES MD Ot L98.492 SP NON-PRS CHRONIC ULCER OF SKIN OF SITES W SP 03/19/2018 MAN ALVARES MD Ot T65.222A SP TOXIC EFFECT OF TOBACCO CIGARETTES, SELF SP 03/19/2018 MAN ALVARES MD Ot T81.31XA SP DISRUPTION OF EXTERNAL OPERATION (SURGIC SP 03/19/2018 MAN ALVARES MD, Ot Z68.35 SP BODY MASS INDEX (BMI) 35.0-35.9, ADULT SP 03/19/2018 Ot R13.10 DYS PHAGIA, SP SP 03/22/2018 DORIS LAYTON MD Ot M25.78 SP OSTEOPHYTE, VERTEBRAE SP 03/22/2018 DORIS LAYTON MD Ot 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, CEDRICK SP 03/22/2018 DORIS LAYTON MD Ot M48.061 SP SPINAL STENOSIS, LUMBAR REGION WITHOUT N SP 03/22/2018 KINJAL WEBER, DORIS Butcher Ot M99.73 SP CONN TISS AND DISC STENOS OF INTVRT FORA SP 03/22/2018 KINJAL WEBER, DORIS Butcher Ot W19.XXXA SP UNSPECIFIED FALL, INITIAL ENCOUNTER SP 04/03/2018 EDIN, COUNSELING PROGRAM LEADER Ot E78.00 PURE SPHYPERCHOLESTEROLEMIA, UNSPECIFIED SP 04/03/2018 EDIN, COUNSELING PROGRAM LEADER Ot F17.210 SP DEPENDENCE, CIGARETTES, UNCOMPL SP 04/03/2018 EDIN, COUNSELING PROGRAM LEADER Ot F32.9 MAJOR SPDEPRESSIVE DISORDER, SINGLE EPISOD SP 04/03/2018 EDIN, COUNSELING PROGRAM LEADER Ot H66.92 SP MEDIA, UNSPECIFIED, LEFT EAR SP 04/03/2018 EDIN, COUNSELING PROGRAM LEADER Ot H92.02 SP LEFT EAR SP 04/03/2018 EDIN, COUNSELING PROGRAM LEADER Ot I10 SP (PRIMARY) HYPERTENSION SP 04/03/2018 EDIN, COUNSELING PROGRAM LEADER Ot I25.2 OLD SP INFARCTION SP 04/03/2018 EDIN, COUNSELING PROGRAM LEADER Ot J44.9 SP OBSTRUCTIVE PULMONARY DISEASE, U SP 04/03/2018 EIDN, COUNSELING PROGRAM LEADER Ot K13.70 SP LESIONS OF ORAL MUCOSA SP 04/03/2018 EDIN, COUNSELING PROGRAM LEADER Ot K21.9 SPESOPHAGEAL REFLUX DISEASE WITHOUT SP 04/03/2018 EDIN, COUNSELING PROGRAM LEADER Ot L03.211 SP OF FACE SP 04/03/2018 EDIN, COUNSELING PROGRAM LEADER Ot Z79.51 LONG SPTERM (CURRENT) USE OF INHALED STERO SP 04/03/2018 EDIN, COUNSELING PROGRAM LEADER Ot Z79.82 LONG SPTERM (CURRENT) USE OF ASPIRIN SP 04/03/2018 EDIN, COUNSELING PROGRAM LEADER Ot Z79.84 LONG SPTERM (CURRENT) USE OF ORAL HYPOGLYC SP 04/03/2018 EDIN, COUNSELING PROGRAM LEADER Ot 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), AND CEREB INFRC W SP 04/03/2018 EDIN, COUNSELING PROGRAM LEADER Ot Z87.19 SP HISTORY OF OTHER DISEASES OF TH SP 04/03/2018 EDIN, COUNSELING PROGRAM LEADER Ot Z88.0 SP STATUS TO PENICILLIN SP 04/03/2018 EDIN, COUNSELING PROGRAM LEADER Ot Z88.1 SP STATUS TO OTHER ANTIBIOTIC AGENT SP 04/03/2018 EDIN, COUNSELING PROGRAM LEADER Ot Z98.890 SP SPECIFIED POSTPROCEDURAL STATES SP 04/05/2018 EDIN, COUNSELING PROGRAM LEADER Ot E78.00 PURE SPHYPERCHOLESTEROLEMIA, UNSPECIFIED SP 04/05/2018 EDIN, COUNSELING PROGRAM LEADER Ot F17.210 SP DEPENDENCE, CIGARETTES, UNCOMPL SP 04/05/2018 EDIN, COUNSELING PROGRAM LEADER Ot F32.9 MAJOR SPDEPRESSIVE DISORDER, SINGLE EPISOD SP 04/05/2018 EDIN, COUNSELING PROGRAM LEADER Ot H66.92 SP MEDIA, UNSPECIFIED, LEFT EAR SP 04/05/2018 EDIN, COUNSELING PROGRAM LEADER Ot H92.02 SP LEFT EAR SP 04/05/2018 EDIN, COUNSELING PROGRAM LEADER Ot I10 SP (PRIMARY) HYPERTENSION SP 04/05/2018 EDIN, COUNSELING PROGRAM LEADER Ot I25.2 OLD SP INFARCTION SP 04/05/2018 EDIN, COUNSELING PROGRAM LEADER Ot J44.9 SP OBSTRUCTIVE PULMONARY DISEASE, U SP 04/05/2018 EDIN, COUNSELING PROGRAM LEADER Ot K13.70 SP LESIONS OF ORAL MUCOSA SP 04/05/2018 EDIN, COUNSELING PROGRAM LEADER Ot K21.9 SPESOPHAGEAL REFLUX DISEASE WITHOUT SP 04/05/2018 EDIN, COUNSELING PROGRAM LEADER Ot L03.211 SP OF FACE SP 04/05/2018 EDIN, COUNSELING PROGRAM LEADER Ot Z79.51 LONG SPTERM (CURRENT) USE OF INHALED STERO SP 04/05/2018 EDIN, COUNSELING PROGRAM LEADER Ot Z79.82 LONG SPTERM (CURRENT) USE OF ASPIRIN SP 04/05/2018 EDIN, COUNSELING PROGRAM LEADER Ot Z79.84 LONG SPTERM (CURRENT) USE OF ORAL HYPOGLYC SP 04/05/2018 EDIN, COUNSELING PROGRAM LEADER Ot 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), AND CEREB INFRC W SP 04/05/2018 EDIN, COUNSELING PROGRAM LEADER Ot Z87.19 SP HISTORY OF OTHER DISEASES OF TH SP 04/05/2018 EDIN, COUNSELING PROGRAM LEADER Ot Z88.0 SP STATUS TO PENICILLIN SP 04/05/2018 EDIN, COUNSELING PROGRAM LEADER Ot Z88.1 SP STATUS TO OTHER ANTIBIOTIC AGENT SP 04/05/2018 EDIN, COUNSELING PROGRAM LEADER Ot Z98.890 SP SPECIFIED POSTPROCEDURAL STATES SP 04/06/2018 RACHEL WEBER, NARAYAN Han Ot E78.00 SP PURE HYPERCHOLESTEROLEMIA, UNSPECIFIED SP 04/06/2018 NARAYAN RAMOS MD Ot F32.9 SP MAJOR DEPRESSIVE DISORDER, SINGLE EPISOD SP 04/06/2018 NARAYAN RAMOS MD Ot H66.92 SP OTITIS MEDIA, UNSPECIFIED, LEFT EAR SP 04/06/2018 NARAYAN RAMOS MD Ot H92.02 SP OTALGIA, LEFT EAR SP 04/06/2018 NARAYAN RAMOS MD Ot I10 SP ESSENTIAL (PRIMARY) HYPERTENSION SP 04/06/2018 NARAYAN RAMOS MD Ot I25.2 SP OLD MYOCARDIAL INFARCTION SP 04/06/2018 NARAYAN RAMOS MD Ot J44.9 SP CHRONIC OBSTRUCTIVE PULMONARY DISEASE, U SP 04/06/2018 NARAYAN RAMOS MD Ot K13.21 SP LEUKOPLAKIA OF ORAL MUCOSA, INCLUDING TO SP 04/06/2018 NARAYAN RAMOS MD Ot K21.9 SP GASTRO-ESOPHAGEAL REFLUX DISEASE WITHOUT SP 04/06/2018 NARAYAN RAMOS MD Ot R11.0 SP NAUSEA SP 04/06/2018 NARAYAN RAMOS MD Ot R21 SP RASH AND OTHER NONSPECIFIC SKIN ERUPTION SP 04/06/2018 NARAYAN RAMOS MD Ot Z79.51 SP JAIL (CURRENT) USE OF INHALED STERO SP 04/06/2018 NARAYAN RAMOS MD Ot Z79.82 SP JAIL (CURRENT) USE OF ASPIRIN SP 04/06/2018 NARAYAN RAMOS MD Ot 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), AND CEREB INFRC W SP 04/06/2018 NARAYAN RAMOS MD Ot Z87.19 SP PERSONAL HISTORY OF OTHER DISEASES OF TH SP 04/06/2018 NARAYAN RAMOS MD Ot Z87.442 SP PERSONAL HISTORY OF URINARY CALCULI SP 04/06/2018 NARAYAN RAMOS MD Ot Z88.0 SP ALLERGY STATUS TO PENICILLIN SP 04/06/2018 NARAYAN RAMOS MD Ot Z88.1 SP ALLERGY STATUS TO OTHER ANTIBIOTIC AGENT SP 04/06/2018 KINJAL WEBER, DORIS Butcher Ot M25.78 SP OSTEOPHYTE, VERTEBRAE SP 04/06/2018 KINJAL WEBER, DORIS Butcher Ot 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, CEDRICK SP 04/06/2018 KINJAL WEBER, DORIS Butcher Ot M48.061 SP SPINAL STENOSIS, LUMBAR REGION WITHOUT N SP 04/06/2018 KINJAL WEBER, DORIS Butcher Ot M99.73 SP CONN TISS AND DISC STENOS OF INTVRT FORA SP 04/06/2018 KINJAL WEBER, DORIS Butcher Ot W19.XXXA SP UNSPECIFIED FALL, INITIAL ENCOUNTER SP 04/09/2018 RACHEL WEBER, NARAYAN Han Ot E78.00 SP PURE HYPERCHOLESTEROLEMIA, UNSPECIFIED SP 04/09/2018 RACHEL WEBER, NARAYAN Han Ot F32.9 SP MAJOR DEPRESSIVE DISORDER, SINGLE EPISOD SP 04/09/2018 RACHEL WEBER, NARAYNA Han Ot H66.92 SP OTITIS MEDIA, UNSPECIFIED, LEFT EAR SP 04/09/2018 RACHEL WEBER, NARAYAN Han Ot H92.02 SP OTALGIA, LEFT EAR SP 04/09/2018 NARAYAN RAMOS MD Ot I10 SP ESSENTIAL (PRIMARY) HYPERTENSION SP 04/09/2018 NARAYAN RAMOS MD Ot I25.2 SP OLD MYOCARDIAL INFARCTION SP 04/09/2018 NARAYAN RAMOS MD Ot J44.9 SP CHRONIC OBSTRUCTIVE PULMONARY DISEASE, U SP 04/09/2018 NARAYAN RAMOS MD Ot K13.21 SP LEUKOPLAKIA OF ORAL MUCOSA, INCLUDING TO SP 04/09/2018 NARAYAN RAMOS MD Ot K21.9 SP GASTRO-ESOPHAGEAL REFLUX DISEASE WITHOUT SP 04/09/2018 NARAYAN RAMOS MD Ot R11.0 SP NAUSEA SP 04/09/2018 NARAYAN RAMOS MD Ot R21 SP RASH AND OTHER NONSPECIFIC SKIN ERUPTION SP 04/09/2018 NARAYAN RAMOS MD Ot Z79.51 SP JAIL (CURRENT) USE OF INHALED STERO SP 04/09/2018 NARAYAN RAMOS MD Ot Z79.82 SP JAIL (CURRENT) USE OF ASPIRIN SP 04/09/2018 RACHEL WEBER, NARAYAN Han Ot 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), AND CEREB INFRC W SP 04/09/2018 RACHEL WEBER, NARAYAN Han Ot Z87.19 SP PERSONAL HISTORY OF OTHER DISEASES OF TH SP 04/09/2018 NARAYAN RAMOS MD Ot Z87.442 SP PERSONAL HISTORY OF URINARY CALCULI SP 04/09/2018 RACHEL WEBER, NARAYAN Han Ot Z88.0 SP ALLERGY STATUS TO PENICILLIN SP 04/09/2018 RACHEL WEBER, NARAYAN Han Ot Z88.1 SP ALLERGY STATUS TO OTHER ANTIBIOTIC AGENT SP 04/10/2018 KINJAL WEBER, DORIS Butcher Ot J43 .1 SP EMPHYSEMA SP 04/12/2018 JOHN HUFFMAN APRN Ot 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 04/12/2018 JOHN HUFFMAN TRACK PRODUCTION ENGINEER Ot J44.9 SP CHRONIC OBSTRUCTIVE PULMONARY DISEASE, U SP 04/12/2018 JOHN HUFFMAN TRACK PRODUCTION ENGINEER Ot J45.909 SP UNSPECIFIED ASTHMA, UNCOMPLICATED SP 04/12/2018 JOHN HUFFMAN TRACK PRODUCTION ENGINEER Ot R06.02 SP SHORTNESS OF BREATH SP 04/12/2018 JOHN HUFFMAN TRACK PRODUCTION ENGINEER Ot Z72.0 SP TOBACCO USE SP 05/01/2018 JOHN HUFFMAN TRACK PRODUCTION ENGINEER Ot 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 05/01/2018 JOHN HUFFMAN TRACK PRODUCTION ENGINEER Ot J44.9 SP CHRONIC OBSTRUCTIVE PULMONARY DISEASE, U SP 05/01/2018 JOHN HUFFMAN TRACK PRODUCTION ENGINEER Ot J45.909 SP UNSPECIFIED ASTHMA, UNCOMPLICATED SP 05/01/2018 JOHN HUFFMAN TRACK PRODUCTION ENGINEER Ot R06.02 SP SHORTNESS OF BREATH SP 05/01/2018 JOHN HUFFMAN TRACK PRODUCTION ENGINEER Ot Z72.0 SP TOBACCO USE SP 05/21/2018 DORIS LAYTON MD Ot J43 .1 SP EMPHYSEMA SP 05/22/2018 JOHN HUFFMAN TRACK PRODUCTION ENGINEER Ot 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 05/22/2018 JOHN HUFFMAN TRACK PRODUCTION ENGINEER Ot J30.2 SP OTHER SEASONAL ALLERGIC RHINITIS SP 05/22/2018 JOHN HUFFMAN TRACK PRODUCTION ENGINEER Ot J43.8 SP OTHER EMPHYSEMA SP 05/22/2018 JOHN HUFFMAN TRACK PRODUCTION ENGINEER Ot R06.02 SP SHORTNESS OF BREATH SP 05/22/2018 JOHN HUFFMAN TRACK PRODUCTION ENGINEER Ot Z72.0 SP TOBACCO USE SP 05/24/2018 ANUP POTTS Ot M19.011 SP PRIMARY OSTEOARTHRITIS, RIGHT SHOULDER SP 05/24/2018 ANUP POTTSP Ot M75.101 SP UNSP ROTATR-CUFF TEAR/RUPTR OF RIGHT LEWIS SP 05/24/2018 ANUP POTTS COUNSELING PROGRAM LEADER Ot M75.111 SP INCOMPLETE ROTATR-CUFF TEAR/RUPTR OF R S SP 05/24/2018 JOHN HUFFMAN TRACK PRODUCTION ENGINEER Ot 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 05/24/2018 JOHN HUFFMAN TRACK PRODUCTION ENGINEER Ot J30.2 SP OTHER SEASONAL ALLERGIC RHINITIS SP 05/24/2018 JOHN HUFFMAN TRACK PRODUCTION ENGINEER Ot J43.8 SP OTHER EMPHYSEMA SP 05/24/2018 JOHN HUFFMAN TRACK PRODUCTION ENGINEER Ot R06.02 SP SHORTNESS OF BREATH SP 05/24/2018 JOHN HUFFMAN TRACK PRODUCTION ENGINEER Ot Z72.0 SP TOBACCO USE SP 06/07/2018 JOHN HUFFMAN TRACK PRODUCTION ENGINEER Ot 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 06/07/2018 JOHN HUFFMAN TRACK PRODUCTION ENGINEER Ot J30.2 SP OTHER SEASONAL ALLERGIC RHINITIS SP 06/07/2018 JOHN HUFFMAN TRACK PRODUCTION ENGINEER Ot J43.8 SP OTHER EMPHYSEMA SP 06/07/2018 JOHN HUFFMAN TRACK PRODUCTION ENGINEER Ot R06.02 SP SHORTNESS OF BREATH SP 06/07/2018 JOHN HUFFMAN TRACK PRODUCTION ENGINEER Ot Z72.0 SP TOBACCO USE SP 06/11/2018 ANUP POTTSP Ot M19.011 SP PRIMARY OSTEOARTHRITIS, RIGHT SHOULDER SP 06/11/2018 ANUP POTTSP Ot M75.101 SP UNSP ROTATR-CUFF TEAR/RUPTR OF RIGHT LEWIS SP 06/11/2018 ANUP POTTS COUNSELING PROGRAM LEADER Ot M75.111 SP INCOMPLETE ROTATR-CUFF TEAR/RUPTR OF R S SP 06/12/2018 JOHN HUFFMAN TRACK PRODUCTION ENGINEER Ot 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 06/12/2018 JOHN HUFFMAN TRACK PRODUCTION ENGINEER Ot J30.2 SP OTHER SEASONAL ALLERGIC RHINITIS SP 06/12/2018 SEA HUFFMANINE E TRACK PRODUCTION ENGINEER Ot J43.8 SP OTHER EMPHYSEMA SP 06/12/2018 SEA HUFFMANINE E TRACK PRODUCTION ENGINEER Ot R06.02 SP SHORTNESS OF BREATH SP 06/12/2018 SEA HUFFMANINE E TRACK PRODUCTION ENGINEER Ot Z72.0 SP TOBACCO USE SP 06/17/2018 DORIS LAYTON MD Ot J43 .1 SP EMPHYSEMA SP 06/18/2018 DORIS LAYTON MD Ot J43 .1 SP EMPHYSEMA SP 06/19/2018 JOHN HUFFMAN TRACK PRODUCTION ENGINEER Ot 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 06/19/2018 JOHN HUFFMAN TRACK PRODUCTION ENGINEER Ot J30.2 SP OTHER SEASONAL ALLERGIC RHINITIS SP 06/19/2018 JOHN HUFFMAN E TRACK PRODUCTION ENGINEER Ot J43.8 SP OTHER EMPHYSEMA SP 06/19/2018 JOHN HUFFMAN E TRACK PRODUCTION ENGINEER Ot R06.02 SP SHORTNESS OF BREATH SP 06/19/2018 JOHN HUFFMAN TRACK PRODUCTION ENGINEER Ot Z72.0 SP TOBACCO USE SP 06/21/2018 SEA HUFFMANINE E TRACK PRODUCTION ENGINEER Ot 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 06/21/2018 JOHN HUFFMAN TRACK PRODUCTION ENGINEER Ot J30.2 SP OTHER SEASONAL ALLERGIC RHINITIS SP 06/21/2018 JOHN HUFFMAN TRACK PRODUCTION ENGINEER Ot J43.8 SP OTHER EMPHYSEMA SP 06/21/2018 JOHN HUFFMAN TRACK PRODUCTION ENGINEER Ot R06.02 SP SHORTNESS OF BREATH SP 06/21/2018 SEA HUFFMANINE Kat TRACK PRODUCTION ENGINEER Ot Z72.0 SP TOBACCO USE SP 06/21/2018 SEA HUFFMANINE Kat TRACK PRODUCTION ENGINEER Ot 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 06/21/2018 SEA HUFFMANINE E TRACK PRODUCTION ENGINEER Ot J30.2 SP OTHER SEASONAL ALLERGIC RHINITIS SP 06/21/2018 SEA HUFFMANINE E TRACK PRODUCTION ENGINEER Ot J43.8 SP OTHER EMPHYSEMA SP 06/21/2018 SEA HUFFMANINE E TRACK PRODUCTION ENGINEER Ot R06.02 SP SHORTNESS OF BREATH SP 06/21/2018 SEA HUFFMANINE E TRACK PRODUCTION ENGINEER Ot Z72.0 SP TOBACCO USE SP 06/26/2018 JOHN HUFFMAN TRACK PRODUCTION ENGINEER Ot 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 06/26/2018 JOHN HUFFMAN TRACK PRODUCTION ENGINEER Ot J30.2 SP OTHER SEASONAL ALLERGIC RHINITIS SP 06/26/2018 JOHN HUFFMAN TRACK PRODUCTION ENGINEER Ot J43.8 SP OTHER EMPHYSEMA SP 06/26/2018 JOHN HUFFMAN TRACK PRODUCTION ENGINEER Ot R06.02 SP SHORTNESS OF BREATH SP 06/26/2018 JOHN HUFFMAN TRACK PRODUCTION ENGINEER Ot Z72.0 SP TOBACCO USE SP 06/28/2018 POTTSANUP Parikh COUNSELING PROGRAM LEADER Ot M75.111 SP INCOMPLETE ROTATR-CUFF TEAR/RUPTR OF R S SP 07/02/2018 POTTSANUP Parikh COUNSELING PROGRAM LEADER Ot M75.111 SP INCOMPLETE ROTATR-CUFF TEAR/RUPTR OF R S SP 07/02/2018 POTTSANUP Parikh COUNSELING PROGRAM LEADER Ot M75.111 SP INCOMPLETE ROTATR-CUFF TEAR/RUPTR OF R S SP 07/03/2018 JOHN HUFFMAN TRACK PRODUCTION ENGINEER Ot 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 07/03/2018 JOHN HUFFMAN TRACK PRODUCTION ENGINEER Ot J30.2 SP OTHER SEASONAL ALLERGIC RHINITIS SP 07/03/2018 JOHN HUFFMAN TRACK PRODUCTION ENGINEER Ot J43.8 SP OTHER EMPHYSEMA SP 07/03/2018 JOHN HUFFMAN TRACK PRODUCTION ENGINEER Ot R06.02 SP SHORTNESS OF BREATH SP 07/03/2018 JOHN HUFFMAN TRACK PRODUCTION ENGINEER Ot Z72.0 SP TOBACCO USE SP 07/05/2018 JOHN HUFFMAN TRACK PRODUCTION ENGINEER Ot 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 07/05/2018 JOHN HUFFMAN TRACK PRODUCTION ENGINEER Ot J30.2 SP OTHER SEASONAL ALLERGIC RHINITIS SP 07/05/2018 JOHN HUFFMAN TRACK PRODUCTION ENGINEER Ot J43.8 SP OTHER EMPHYSEMA SP 07/05/2018 JOHN HUFFMAN TRACK PRODUCTION ENGINEER Ot R06.02 SP SHORTNESS OF BREATH SP 07/05/2018 JOHN HUFFMAN TRACK PRODUCTION ENGINEER Ot Z72.0 SP TOBACCO USE SP 07/10/2018 JOHN HUFFMAN TRACK PRODUCTION ENGINEER Ot 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 07/10/2018 JOHN HUFFMAN TRACK PRODUCTION ENGINEER Ot J30.2 SP OTHER SEASONAL ALLERGIC RHINITIS SP 07/10/2018 JOHN HUFFMAN TRACK PRODUCTION ENGINEER Ot J43.8 SP OTHER EMPHYSEMA SP 07/10/2018 JOHN HUFFMAN TRACK PRODUCTION ENGINEER Ot R06.02 SP SHORTNESS OF BREATH SP 07/10/2018 JOHN HUFFMAN TRACK PRODUCTION ENGINEER Ot Z72.0 SP TOBACCO USE SP 07/20/2018 ANUP POTTS Dorie COUNSELING PROGRAM LEADER Ot M75.111 SP INCOMPLETE ROTATR-CUFF TEAR/RUPTR OF R S SP 08/12/2018 JOHN HUFFMAN TRACK PRODUCTION ENGINEER Ot 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 08/12/2018 JOHN HUFFMAN TRACK PRODUCTION ENGINEER Ot J30.2 SP OTHER SEASONAL ALLERGIC RHINITIS SP 08/12/2018 JOHN HUFFMAN TRACK PRODUCTION ENGINEER Ot J43.8 SP OTHER EMPHYSEMA SP 08/12/2018 JOHN HUFFMAN TRACK PRODUCTION ENGINEER Ot R06.02 SP SHORTNESS OF BREATH SP 08/12/2018 JOHN HUFFMAN TRACK PRODUCTION ENGINEER Ot Z72.0 SP TOBACCO USE SP 08/13/2018 JOHN HUFFMAN TRACK PRODUCTION ENGINEER Ot 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 08/13/2018 JOHN HUFFMAN TRACK PRODUCTION ENGINEER Ot J30.2 SP OTHER SEASONAL ALLERGIC RHINITIS SP 08/13/2018 JOHN HUFFMAN TRACK PRODUCTION ENGINEER Ot J43.8 SP OTHER EMPHYSEMA SP 08/13/2018 JOHN HUFFMAN TRACK PRODUCTION ENGINEER Ot R06.02 SP SHORTNESS OF BREATH SP 08/13/2018 JOHN HUFFMAN TRACK PRODUCTION ENGINEER Ot Z72.0 SP TOBACCO USE SP 08/28/2018 JOE GUILLENC, ALI FACP CCDS Ot E11.9 SP TYPE 2 DIABETES MELLITUS WITHOUT COMPLIC SP 08/28/2018 JOE WEBER FACC, ALI FACP CCDS Ot E66.9 SP OBESITY, UNSPECIFIED SP 08/28/2018 JOE WEBER FACC, ALI FACP CCDS Ot 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 08/28/2018 JOE GUILLENC, ALI FACP CCDS Ot 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 08/28/2018 JOE GUILLENC, ALI FACP CCDS Ot J43.8 SP OTHER EMPHYSEMA SP 08/28/2018 JOE WEBER [facility] FACP CCDS Ot R06.02 SP SHORTNESS OF BREATH SP 08/28/2018 JOE WEBER FAC, ALI FACP CCDS Ot R07.89 SP OTHER CHEST PAIN SP 08/28/2018 JOE WEBER FAC, ALI FACP CCDS Ot R42 SP DIZZINESS AND GIDDINESS SP 08/28/2018 JOE WEBER [facility], ALI FACP CCDS Ot Z72.0 SP TOBACCO USE SP 12/10/2018 MYRTLE JOHNSON TRACK PRODUCTION ENGINEER Ot M43.12 SP SPONDYLOLISTHESIS, CERVICAL REGION SP 12/10/2018 MYRTLE JOHNSON TRACK PRODUCTION ENGINEER Ot M48.02 SP SPINAL STENOSIS, CERVICAL REGION SP 12/10/2018 MYRTLE JOHNSON TRACK PRODUCTION ENGINEER Ot M50.122 SP CERVICAL DISC DISORDER AT C5-C6 LEVEL WI SP 12/10/2018 MYRTLE JOHNSON TRACK PRODUCTION ENGINEER Ot M43.12 SP SPONDYLOLISTHESIS, CERVICAL REGION SP 12/10/2018 MYRTLE JOHNSON TRACK PRODUCTION ENGINEER Ot M48.02 SP SPINAL STENOSIS, CERVICAL REGION SP 12/10/2018 MYRTLE JOHNSON TRACK PRODUCTION ENGINEER Ot M50.122 SP CERVICAL DISC DISORDER AT C5-C6 LEVEL WI SP 02/12/2019 JOHN HUFFMAN TRACK PRODUCTION ENGINEER Ot J43.8 SP OTHER EMPHYSEMA SP 02/12/2019 JOHN HUFFMAN TRACK PRODUCTION ENGINEER Ot J45.909 SP UNSPECIFIED ASTHMA, UNCOMPLICATED SP 02/12/2019 JOHN HUFFMAN TRACK PRODUCTION ENGINEER Ot R09.02 SP HYPOXEMIA SP 02/12/2019 JOHN HUFFMAN TRACK PRODUCTION ENGINEER Ot Z72.0 SP TOBACCO USE SP 02/14/2019 JOHN HUFFMAN TRACK PRODUCTION ENGINEER Ot J43.8 SP OTHER EMPHYSEMA SP 02/14/2019 JOHN HUFFMAN TRACK PRODUCTION ENGINEER Ot J45.909 SP UNSPECIFIED ASTHMA, UNCOMPLICATED SP 02/14/2019 JOHN HUFFMAN TRACK PRODUCTION ENGINEER Ot R09.02 SP HYPOXEMIA SP 02/14/2019 JOHN HUFFMAN TRACK PRODUCTION ENGINEER Ot Z72.0 SP TOBACCO USE SP 02/21/2019 JOHN HUFFMAN TRACK PRODUCTION ENGINEER Ot J43.8 SP OTHER EMPHYSEMA SP 02/21/2019 JOHN HUFFMAN TRACK PRODUCTION ENGINEER Ot J45.909 SP UNSPECIFIED ASTHMA, UNCOMPLICATED SP 02/21/2019 NATHANAEL, JOHN E TRACK PRODUCTION ENGINEER Ot R09.02 SP HYPOXEMIA SP 02/21/2019 SEA HUFFMANINE E TRACK PRODUCTION ENGINEER Ot Z72.0 SP TOBACCO USE SP 03/05/2019 SEA HUFFMANINE E TRACK PRODUCTION ENGINEER Ot J43.8 SP OTHER EMPHYSEMA SP 03/05/2019 SEA HUFFMANINE E TRACK PRODUCTION ENGINEER Ot J45.909 SP UNSPECIFIED ASTHMA, UNCOMPLICATED SP 03/05/2019 SEA HUFFMANINE E TRACK PRODUCTION ENGINEER Ot R09.02 SP HYPOXEMIA SP 03/05/2019 SEA HUFFMANINE E TRACK PRODUCTION ENGINEER Ot Z72.0 SP TOBACCO USE SP 03/07/2019 SEA HUFFMANINE Kat TRACK PRODUCTION ENGINEER Ot J43.8 SP OTHER EMPHYSEMA SP 03/07/2019 SEA HUFFMANINE E TRACK PRODUCTION ENGINEER Ot J45.909 SP UNSPECIFIED ASTHMA, UNCOMPLICATED SP 03/07/2019 JOHN HUFFMAN TRACK PRODUCTION ENGINEER Ot R09.02 SP HYPOXEMIA SP 03/07/2019 JOHN HUFFMAN TRACK PRODUCTION ENGINEER Ot Z72.0 SP TOBACCO USE SP 03/12/2019 JOHN HUFFMAN TRACK PRODUCTION ENGINEER Ot J43.8 SP OTHER EMPHYSEMA SP 03/12/2019 JOHN HUFFMAN E TRACK PRODUCTION ENGINEER Ot J45.909 SP UNSPECIFIED ASTHMA, UNCOMPLICATED SP 03/12/2019 JOHN HUFFMAN TRACK PRODUCTION ENGINEER Ot R09.02 SP HYPOXEMIA SP 03/12/2019 JOHN HUFFMAN TRACK PRODUCTION ENGINEER Ot Z72.0 SP TOBACCO USE SP 03/12/2019 JOHN HUFFMAN TRACK PRODUCTION ENGINEER Ot J43.8 SP OTHER EMPHYSEMA SP 03/12/2019 JOHN HUFFMAN TRACK PRODUCTION ENGINEER Ot J45.909 SP UNSPECIFIED ASTHMA, UNCOMPLICATED SP 03/12/2019 JOHN HUFFMAN TRACK PRODUCTION ENGINEER Ot R09.02 SP HYPOXEMIA SP 03/12/2019 SEA HUFFMANINE Kat TRACK PRODUCTION ENGINEER Ot Z72.0 SP TOBACCO USE SP 03/14/2019 KINJAL WEBER, DORIS Butcher Ot J43 .1 SP EMPHYSEMA SP 03/14/2019 JOHN HUFFMAN TRACK PRODUCTION ENGINEER Ot 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 03/14/2019 JOHN HUFFMAN TRACK PRODUCTION ENGINEER Ot J30.2 SP OTHER SEASONAL ALLERGIC RHINITIS SP 03/14/2019 JOHN HUFFMAN TRACK PRODUCTION ENGINEER Ot J43.8 SP OTHER EMPHYSEMA SP 03/14/2019 JHON HUFFMAN APRN Ot R06.02 SP SHORTNESS OF BREATH SP 03/14/2019 JOHN HUFFMAN APRN Ot Z72.0 SP TOBACCO USE SP 03/14/2019 JOHN HUFFMAN APRN Ot J43.8 SP OTHER EMPHYSEMA SP 03/14/2019 JOHN HUFFMAN APRN Ot J45.909 SP UNSPECIFIED ASTHMA, UNCOMPLICATED SP 03/14/2019 JOHN HUFFMAN APRN Ot R09.02 SP HYPOXEMIA SP 03/14/2019 JOHN HUFFMAN APRN Ot Z72.0 SP TOBACCO USE SP 03/14/2019 MAN ELO MD Ot M75.101 SP UNSP ROTATR-CUFF TEAR/RUPTR OF RIGHT LEWIS SP 03/14/2019 MAN LEO MD Ot Z01.818 SP ENCOUNTER FOR OTHER PREPROCEDURAL EXAMIN SP 03/18/2019 MAN LEO MD Ot M75.101 SP UNSP ROTATR-CUFF TEAR/RUPTR OF RIGHT LEWIS SP 03/18/2019 MAN LEO MD Ot Z01.818 SP ENCOUNTER FOR OTHER PREPROCEDURAL EXAMIN SP 03/20/2019 MAN LEO MD Ot M75.101 SP UNSP ROTATR-CUFF TEAR/RUPTR OF RIGHT LEWIS SP 03/20/2019 MAN LEO MD Ot Z01.818 SP ENCOUNTER FOR OTHER PREPROCEDURAL EXAMIN SP 03/20/2019 MAN LEO MD Ot E66.09 SP OTHER OBESITY DUE TO EXCESS CALORIES SP 03/20/2019 MAN LEO MD Ot E78.00 SP PURE HYPERCHOLESTEROLEMIA, UNSPECIFIED SP 03/20/2019 MAN LEO MD Ot F17.210 SP NICOTINE DEPENDENCE, CIGARETTES, UNCOMPL SP 03/20/2019 MAN LEO MD Ot F32.9 SP MAJOR DEPRESSIVE DISORDER, SINGLE EPISOD SP 03/20/2019 MAN LEO MD Ot G47.30 SP SLEEP APNEA, UNSPECIFIED SP 03/20/2019 MAN LEO MD Ot I1 0 SP (PRIMARY) HYPERTENSION SP 03/20/2019 MAN LEO MD Ot I25.2 SP OLD MYOCARDIAL INFARCTION SP 03/20/2019 MAN LEO MD Ot J44.9 SP CHRONIC OBSTRUCTIVE PULMONARY DISEASE, U SP 03/20/2019 MAN ELO MD, Ot M65.331 SP TRIGGER FINGER, RIGHT MIDDLE FINGER SP 03/20/2019 MAN LEO MD, Ot M75.51 SP BURSITIS OF RIGHT SHOULDER SP 03/20/2019 MAN LEO MD, Ot S43.421A SP SPRAIN OF RIGHT ROTATOR CUFF CAPSULE, IN SP 03/20/2019 MAN LEO MD, Ot S43.431A SP SUPERIOR GLENOID LABRUM LESION OF RIGHT SP 03/20/2019 MAN LEO MD, Ot Z68.35 SP BODY MASS INDEX (BMI) 35.0-35.9, ADULT SP 03/20/2019 MAN LEO MD, Ot Z79.82 SP JAIL (CURRENT) USE OF ASPIRIN SP 03/20/2019 MAN LEO MD, Ot Z80.3 SP FAMILY HISTORY OF MALIGNANT NEOPLASM OF SP 03/20/2019 MAN LEO MD, Ot Z82.49 SP FAMILY HX OF ISCHEM HEART DIS AND OTH DI SP 03/20/2019 MAN LEO MD, Ot Z83.3 SP FAMILY HISTORY OF DIABETES MELLITUS SP 03/20/2019 MAN LEO MD, Ot 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), AND CEREB INFRC W SP 03/20/2019 MAN LEO MD, Ot Z88.0 SP ALLERGY STATUS TO PENICILLIN SP 03/20/2019 MAN LEO MD, Ot Z88.1 SP ALLERGY STATUS TO OTHER ANTIBIOTIC AGENT SP 03/20/2019 MAN LEO MD, Ot Z99.89 SP DEPENDENCE ON OTHER ENABLING MACHINES AN SP 03/26/2019 MAN LEO MD, Ot E66.09 SP OTHER OBESITY DUE TO EXCESS CALORIES SP 03/26/2019 MAN LEO MD, Ot E78.00 SP PURE HYPERCHOLESTEROLEMIA, UNSPECIFIED SP 03/26/2019 MAN LEO MD, Ot F17.210 SP NICOTINE DEPENDENCE, CIGARETTES, UNCOMPL SP 03/26/2019 MAN LOE MD, Ot F32.9 SP MAJOR DEPRESSIVE DISORDER, SINGLE EPISOD SP 03/26/2019 MAN LEO MD, Ot G47.30 SP SLEEP APNEA, UNSPECIFIED SP 03/26/2019 ZAFUTA MD, MAN P Ot I1 0 SP (PRIMARY) HYPERTENSION SP 03/26/2019 MAN LEO MD, Ot I25.2 SP OLD MYOCARDIAL INFARCTION SP 03/26/2019 MAN LEO MD, Ot J44.9 SP CHRONIC OBSTRUCTIVE PULMONARY DISEASE, U SP 03/26/2019 MAN LEO MD, Ot M65.331 SP TRIGGER FINGER, RIGHT MIDDLE FINGER SP 03/26/2019 MAN LEO MD, Ot M75.51 SP BURSITIS OF RIGHT SHOULDER SP 03/26/2019 MAN LEO MD, Ot S43.421A SP SPRAIN OF RIGHT ROTATOR CUFF CAPSULE, IN SP 03/26/2019 MAN LEO MD, Ot S43.431A SP SUPERIOR GLENOID LABRUM LESION OF RIGHT SP 03/26/2019 MAN LEO MD, Ot Z68.35 SP BODY MASS INDEX (BMI) 35.0-35.9, ADULT SP 03/26/2019 MAN LEO MD, Ot 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 03/26/2019 MAN LEO MD, Ot Z80.3 SP FAMILY HISTORY OF MALIGNANT NEOPLASM OF SP 03/26/2019 MAN LEO MD, Ot Z82.49 SP FAMILY HX OF ISCHEM HEART DIS AND OTH DI SP 03/26/2019 MAN LEO MD, Ot Z83.3 SP FAMILY HISTORY OF DIABETES MELLITUS SP 03/26/2019 MAN LEO MD, Ot 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), AND CEREB INFRC W SP 03/26/2019 MAN LEO MD, Ot Z88.0 SP ALLERGY STATUS TO PENICILLIN SP 03/26/2019 MAN LEO MD, Ot Z88.1 SP ALLERGY STATUS TO OTHER ANTIBIOTIC AGENT SP 03/26/2019 MAN LEO MD, Ot Z99.89 SP DEPENDENCE ON OTHER ENABLING MACHINES AN SP 03/29/2019 MAN LEO MD, Ot E66.09 SP OTHER OBESITY DUE TO EXCESS CALORIES SP 03/29/2019 MAN LEO MD, Ot E78.00 SP PURE HYPERCHOLESTEROLEMIA, UNSPECIFIED SP 03/29/2019 MAN LEO MD, Ot F17.210 SP NICOTINE DEPENDENCE, CIGARETTES, UNCOMPL SP 03/29/2019 MAN LEO MD, Ot F32.9 SP MAJOR DEPRESSIVE DISORDER, SINGLE EPISOD SP 03/29/2019 MAN LEO MD, Ot G47.30 SP SLEEP APNEA, UNSPECIFIED SP 03/29/2019 MAN LEO MD, Ot I1 0 SP (PRIMARY) HYPERTENSION SP 03/29/2019 MAN LEO MD, Ot I25.2 SP OLD MYOCARDIAL INFARCTION SP 03/29/2019 MAN LEO MD, Ot J44.9 SP CHRONIC OBSTRUCTIVE PULMONARY DISEASE, U SP 03/29/2019 MAN LEO MD, Ot M65.331 SP TRIGGER FINGER, RIGHT MIDDLE FINGER SP 03/29/2019 MAN LEO MD, Ot M75.51 SP BURSITIS OF RIGHT SHOULDER SP 03/29/2019 MAN LEO MD, Ot S43.421A SP SPRAIN OF RIGHT ROTATOR CUFF CAPSULE, IN SP 03/29/2019 MAN LEO MD, Ot S43.431A SP SUPERIOR GLENOID LABRUM LESION OF RIGHT SP 03/29/2019 MAN LEO MD, Ot Z68.35 SP BODY MASS INDEX (BMI) 35.0-35.9, ADULT SP 03/29/2019 MAN LEO MD, Ot 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 03/29/2019 MAN LEO MD, Ot Z80.3 SP FAMILY HISTORY OF MALIGNANT NEOPLASM OF SP 03/29/2019 MAN LEO MD, Ot Z82.49 SP FAMILY HX OF ISCHEM HEART DIS AND OTH DI SP 03/29/2019 MAN LEO MD, Ot Z83.3 SP FAMILY HISTORY OF DIABETES MELLITUS SP 03/29/2019 MAN LEO MD, Ot 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), AND CEREB INFRC W SP 03/29/2019 MAN LEO MD, Ot Z88.0 SP ALLERGY STATUS TO PENICILLIN SP 03/29/2019 MAN LEO MD, Ot Z88.1 SP ALLERGY STATUS TO OTHER ANTIBIOTIC AGENT SP 03/29/2019 MAN LEO MD, Ot 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 SP DEPENDENCE ON OTHER ENABLING MACHINES AN SP 04/04/2019 MAN LEO MD, Ot M75.101 SP UNSP ROTATR-CUFF TEAR/RUPTR OF RIGHT LEWIS SP 04/04/2019 MAN LEO MD, Ot M75.20 SP BICIPITAL TENDINITIS, UNSPECIFIED SHOULD SP 04/09/2019 JOHN HUFFMAN TRACK PRODUCTION ENGINEER Ot J43.8 SP OTHER EMPHYSEMA SP 04/09/2019 JOHN HUFFMAN TRACK PRODUCTION ENGINEER Ot J45.909 SP UNSPECIFIED ASTHMA, UNCOMPLICATED SP 04/09/2019 JOHN HUFFMAN TRACK PRODUCTION ENGINEER Ot R09.02 SP HYPOXEMIA SP 04/09/2019 JOHN HUFFMAN TRACK PRODUCTION ENGINEER Ot Z72.0 SP TOBACCO USE SP 04/11/2019 JOHN HUFFMAN TRACK PRODUCTION ENGINEER Ot J43.8 SP OTHER EMPHYSEMA SP 04/11/2019 JOHN HUFFMAN TRACK PRODUCTION ENGINEER Ot J45.909 SP UNSPECIFIED ASTHMA, UNCOMPLICATED SP 04/11/2019 JOHN HUFFMAN APRN Ot R09.02 SP HYPOXEMIA SP 04/11/2019 JOHN HUFFMAN TRACK PRODUCTION ENGINEER Ot Z72.0 SP TOBACCO USE SP Procedures There is no data. Results Test Result Range POS Capillary blood glucose measurement by g lucometer (mass/volume) - 06/29/16 10:01 POS Capillary blood glucose measurement by glucometer (mas s/volume) 149 POS 70-110 SP Automated blood complete blood count (he mogram) panel - 07/12/16 08:24 POS Blood leukocytes automated count (number/volume) 9.4 10*3/uL SP 4.3-11.0 SP Blood erythrocytes automated count (number/volume) 5.13 10*6/uL SP 4.35-5.85 SP Venous blood hemoglobin measurement (mass/volume) 15.4 g/dL SP17.7 Blood hematocrit (volume fraction) 45 % 40-54 SP Automated erythrocyte mean corpuscular volume 87 [ foz_us] SP99 Automated erythrocyte mean corpuscular h emoglobin (mass per erythrocyte) SP 30 pg 25-34 SP Automated erythrocyte mean corpuscular h emoglobin concentration measurement SP 35 g/dL 32-36 SP Automated erythrocyte distribution width ratio 13. 9 % 10.0- SP Automated blood platelet count (count/volume) 330 10*3/uL SP400 Automated blood platelet mean volume measurement 9.9 [foz_us] SP 7.4-10.4 SP PT panel in platelet poor plasma by coag ulation assay - 07/12/16 08:24 POS Prothrombin time (PT) in platelet poor plasma by coagu lation assay SP s 12.2-14.7 SP INR in platelet poor plasma or blood by coagulation as say 1.0 SP 0.8-1.4 SP Activated partial thromboplastin time (a PTT) in platelet poor plasma POS assay - 07/12/16 08:24 Activated partial thromboplastin time (a PTT) in platelet poor plasma POS assay 26 s 24-35 SP Comprehensive metabolic panel - 07/12/16 08:24 POS Serum or plasma sodium measurement (moles/volume) 140 mmol/L SP 135-145 SP Serum or plasma potassium measurement (moles/volume) 3.7 mmol/L SP 3.6-5.0 SP Serum or plasma chloride measurement (moles/volume) 104 mmol/L SP 98-107 SP Carbon dioxide 24 mmol/L 21-32 SP Serum or plasma anion gap determination (moles/volume) 12 mmol/L SP 5-14 SP Serum or plasma urea nitrogen measurement (mass/volume ) 12 mg/dL SP 7-18 SP Serum or plasma creatinine measurement (mass/volume) 1.14 mg/dL SP 0.60-1.30 SP Serum or plasma urea nitrogen/creatinine mass ratio 11 NRG SP Serum or plasma creatinine measurement w ith calculation of estimated glomerular SP rate > NRG SP Serum or plasma glucose measurement (mass/volume) 128 mg/dL SP105 Serum or plasma calcium measurement (mass/volume) 9.1 mg/dL SP10.1 Serum or plasma total bilirubin measurement (mass/volu me) 0.3 mg/dL SP 0.1-1.0 SP Serum or plasma alkaline phosphatase wayne surement (enzymatic activity/volume) SP 47 U/L 40-136 SP Serum or plasma aspartate aminotransfera se measurement (enzymatic SP 17 U/L 5-34 SP Serum or plasma alanine aminotransferase measurement (enzymatic activity/volume) SP 28 U/L 0-55 SP Serum or plasma protein measurement (mass/volume) 7.1 g/dL SP8.2 Serum or plasma albumin measurement (mass/volume) 4.5 g/dL SP4.5 Lipid 1996 panel - 07/12/16 08:24 POS Serum or plasma triglyceride measurement (mass/volume) 88 mg/dL SP <150 SP Serum or plasma cholesterol measurement (mass/volume) 192 mg/dL SP < 200 SP Serum or plasma cholesterol in HDL measurement (mass/v olume) 39 mg/dL SP 40-60 SP Cholesterol in LDL [mass/volume] in serum or plasma by direct assay SP mg/dL 1-129 SP Serum or plasma cholesterol in VLDL measurement (mass/ volume) 18 mg/dL SP 5-40 SP Methicillin resistant Staphylococcus aur eus (MRSA) screening culture - 07/12/16 POS Methicillin resistant Staphylococcus aureus (MRSA) scr eening culture POS NRG SP Comprehensive metabolic panel - 09/08/16 09:40 POS Serum or plasma sodium measurement (moles/volume) 145 mmol/L SP 135-145 SP Serum or plasma potassium measurement (moles/volume) 4.8 mmol/L SP 3.6-5.0 SP Serum or plasma chloride measurement (moles/volume) 108 mmol/L SP 98-107 SP Carbon dioxide 29 mmol/L 21-32 SP Serum or plasma anion gap determination (moles/volume) 8 mmol/L SP 5-14 SP Serum or plasma urea nitrogen measurement (mass/volume ) 11 mg/dL SP 7-18 SP Serum or plasma creatinine measurement (mass/volume) 1.07 mg/dL SP 0.60-1.30 SP Serum or plasma urea nitrogen/creatinine mass ratio 10 NRG SP Serum or plasma creatinine measurement w ith calculation of estimated glomerular SP rate > NRG SP Serum or plasma glucose measurement (mass/volume) 129 mg/dL SP105 Serum or plasma calcium measurement (mass/volume) 9.3 mg/dL SP10.1 Serum or plasma total bilirubin measurement (mass/volu me) 0.3 mg/dL SP 0.1-1.0 SP Serum or plasma alkaline phosphatase wayne surement (enzymatic activity/volume) SP 58 U/L 40-136 SP Serum or plasma aspartate aminotransfera se measurement (enzymatic SP 19 U/L 5-34 SP Serum or plasma alanine aminotransferase measurement (enzymatic activity/volume) SP 28 U/L 0-55 SP Serum or plasma protein measurement (mass/volume) 6.9 g/dL SP8.2 Serum or plasma albumin measurement (mass/volume) 4.2 g/dL SP4.5 Lipid 1996 panel - 09/08/16 09:40 POS Serum or plasma triglyceride measurement (mass/volume) 76 mg/dL SP <150 SP Serum or plasma cholesterol measurement (mass/volume) 140 mg/dL SP < 200 SP Serum or plasma cholesterol in HDL measurement (mass/v olume) 32 mg/dL SP 40-60 SP Cholesterol in LDL [mass/volume] in serum or plasma by direct assay 91 SPmg/dL 1-129 SP Serum or plasma cholesterol in VLDL measurement (mass/ volume) 15 mg/dL SP 5-40 SP [id number] - 09/19/16 10:41 POS Serum or plasma urea nitrogen measurement (mass/volume ) 13 mg/dL SP 7-18 SP Serum or plasma creatinine measurement (mass/volume) 1.07 mg/dL SP 0.60-1.30 SP Serum or plasma urea nitrogen/creatinine mass ratio 12 NRG SP Serum or plasma creatinine measurement w ith calculation of estimated glomerular SP rate > NRG SP Comprehensive metabolic panel - 10/18/16 16:00 POS Serum or plasma sodium measurement (moles/volume) 143 mmol/L SP 135-145 SP Serum or plasma potassium measurement (moles/volume) 4.0 mmol/L SP 3.6-5.0 SP Serum or plasma chloride measurement (moles/volume) 107 mmol/L SP 98-107 SP Carbon dioxide 28 mmol/L 21-32 SP Serum or plasma anion gap determination (moles/volume) 8 mmol/L SP 5-14 SP Serum or plasma urea nitrogen measurement (mass/volume ) 9 mg/dL SP 7-18 SP Serum or plasma creatinine measurement (mass/volume) 0.96 mg/dL SP 0.60-1.30 SP Serum or plasma urea nitrogen/creatinine mass ratio 9 NRG SP Serum or plasma creatinine measurement w ith calculation of estimated glomerular SP rate > NRG SP Serum or plasma glucose measurement (mass/volume) 140 mg/dL SP105 Serum or plasma calcium measurement (mass/volume) 9.5 mg/dL SP10.1 Serum or plasma total bilirubin measurement (mass/volu me) 0.3 mg/dL SP 0.1-1.0 SP Serum or plasma alkaline phosphatase wayne surement (enzymatic activity/volume) SP 59 U/L 40-136 SP Serum or plasma aspartate aminotransfera se measurement (enzymatic SP 16 U/L 5-34 SP Serum or plasma alanine aminotransferase measurement (enzymatic activity/volume) SP 29 U/L 0-55 SP Serum or plasma protein measurement (mass/volume) 6.7 g/dL SP8.2 Serum or plasma albumin measurement (mass/volume) 4.2 g/dL SP4.5 Lipid 1996 panel - 10/18/16 16:00 POS Serum or plasma triglyceride measurement (mass/volume) 98 mg/dL SP <150 SP Serum or plasma cholesterol measurement (mass/volume) 130 mg/dL SP < 200 SP Serum or plasma cholesterol in HDL measurement (mass/v olume) 44 mg/dL SP 40-60 SP Cholesterol in LDL [mass/volume] in serum or plasma by direct assay 71 SPmg/dL 1-129 SP Serum or plasma cholesterol in VLDL measurement (mass/ volume) 20 mg/dL SP 5-40 SP THYROID STIMULATING HORMONE - 10/18/16 1 6:00 POS THYROID STIMULATING HORMONE 0.67 u[iU]/mL 0.35-4.94 SP Methicillin resistant Staphylococcus aur eus (MRSA) screening culture - 07/13/17 POS Methicillin resistant Staphylococcus aureus (MRSA) scr eening culture POS NRG SP Capillary blood glucose measurement by g lucometer (mass/volume) - 07/13/17 10:53 POS Capillary blood glucose measurement by glucometer (mas s/volume) 132 POS 70-110 SP Bacteria identification in isolate by an aerobe culture - 08/18/17 11:11 POS Bacteria identification in isolate by anaerobe culture NOANA SP NRG SP Gram stain microscopy - 08/18/17 11:11 POS GRAM STAIN RESULT NO WBC'S OR BACTERIA OBSERVED NRG SP Bacteria identification in wound by cult ure - 08/18/17 11:11 POS Bacteria identification in wound by culture [id number] NRG SP FREE TEXT EXTERNAL SENSITIVITY REPORTED 08/21/17 7: 50 NRG SP QUANTITY OF GROWTH Scant Growth NRG SP MRSA AGAR Screening test for MRSA is N EGATIVE (Final to follow) SP NRG SP Bacterial susceptibility panel - 8 11:11 POS Gentamicin susceptibility test by minimum inhibitory c oncentration >= SP NRG SP Trimethoprim/sulfamethoxazole susceptibi lity test by minimum SP R NRG SP Ampicillin susceptibility test by minimum inhibitory c oncentration >= SP NRG SP Tobramycin susceptibility test by minimum inhibitory c oncentration 8 SP NRG SP Cefazolin susceptibility test by minimum inhibitory co ncentration 8 SP NRG SP Ceftriaxone susceptibility test by minimum inhibitory concentration <= SP NRG SP Ampicillin/sulbactam susceptibility test by minimum inhibitory concentration SP R NRG SP Piperacillin/tazobactam susceptibility t est by minimum inhibitory concentration SP S NRG SP Ciprofloxacin susceptibility test by minimum inhibitor y concentration SP NRG SP Meropenem susceptibility test by minimum inhibitory co ncentration <= SP NRG SP Aztreonam susceptibility test by minimum inhibitory co ncentration <= SP NRG SP Extended spectrum beta lactamase (ESBL) producing bacteria susceptibility test SP minimum inhibitory concentration - NRG SP Amikacin susceptibility test by minimum inhibitory con centration S SP NRG SP Bacterial susceptibility panel - 8 11:11 POS Oxacillin susceptibility test by minimum inhibitory co ncentration <= SP NRG SP Gentamicin susceptibility test by minimum inhibitory c oncentration <= SP NRG SP Clindamycin susceptibility test by minimum inhibitory concentration <= SP NRG SP Erythromycin susceptibility test by minimum inhibitory concentration SP NRG SP Trimethoprim/sulfamethoxazole susceptibi lity test by minimum SP S NRG SP Vancomycin susceptibility test by minimum inhibitory c oncentration <= SP NRG SP Levofloxacin susceptibility test by minimum inhibitory concentration SP NRG SP Rifampin susceptibility test by minimum inhibitory con centration <= SP NRG SP Tetracycline susceptibility test by minimum inhibitory concentration SP NRG SP Linezolid susceptibility test by minimum inhibitory co ncentration 1 SP NRG SP Bacterial susceptibility panel - 8 11:11 POS Oxacillin susceptibility test by minimum inhibitory co ncentration <= SP NRG SP Gentamicin susceptibility test by minimum inhibitory c oncentration <= SP NRG SP Clindamycin susceptibility test by minimum inhibitory concentration <= SP NRG SP Erythromycin susceptibility test by minimum inhibitory concentration SP NRG SP Trimethoprim/sulfamethoxazole susceptibi lity test by minimum SP S NRG SP Vancomycin susceptibility test by minimum inhibitory c oncentration 1 SP NRG SP Levofloxacin susceptibility test by minimum inhibitory concentration SP NRG SP Rifampin susceptibility test by minimum inhibitory con centration <= SP NRG SP Tetracycline susceptibility test by minimum inhibitory concentration SP NRG SP Bacteria identification in isolate by an aerobe culture - 09/25/17 10:00 POS Bacteria identification in isolate by anaerobe culture NG SP Gram stain microscopy - 09/25/17 10:00 POS GRAM STAIN RESULT FEW WBC'S, NO BACTERIA OBSERVED NRG SP Bacteria identification in wound by cult ure - 09/25/17 10:00 POS Bacteria identification in wound by culture NG NRG SP Hemoglobin A1c - 10/31/17 13:50 POS Blood hemoglobin A1C measurement (mass/volume) 6.7 % 4.0-5.6 SP MEAN BLOOD GLUCOSE 146 % <=126 SP Automated blood complete blood count (he mogram) panel - 11/07/17 08:09 POS Blood leukocytes automated count (number/volume) 10.6 10*3/uL SP 4.3-11.0 SP Blood erythrocytes automated count (number/volume) 4.74 10*6/uL SP 4.35-5.85 SP Venous blood hemoglobin measurement (mass/volume) 14.0 g/dL SP17.7 Blood hematocrit (volume fraction) 42 % 40-54 SP Automated erythrocyte mean corpuscular volume 88 [ foz_us] SP99 Automated erythrocyte mean corpuscular h emoglobin (mass per erythrocyte) SP 30 pg 25-34 SP Automated erythrocyte mean corpuscular h emoglobin concentration measurement SP 34 g/dL 32-36 SP Automated erythrocyte distribution width ratio 14. 5 % 10.0- SP Automated blood platelet count (count/volume) 385 10*3/uL SP400 Automated blood platelet mean volume measurement 9.2 [foz_us] SP 7.4-10.4 SP PT panel in platelet poor plasma by coag ulation assay - 11/07/17 08:09 POS Prothrombin time (PT) in platelet poor plasma by coagu lation assay SP s 12.2-14.7 SP INR in platelet poor plasma or blood by coagulation as say 1.0 SP 0.8-1.4 SP Activated partial thromboplastin time (a PTT) in platelet poor plasma POS assay - 11/07/17 08:09 Activated partial thromboplastin time (a PTT) in platelet poor plasma POS assay 27 s 24-35 SP Comprehensive metabolic panel - 11/07/17 08:09 POS Serum or plasma sodium measurement (moles/volume) 142 mmol/L SP 135-145 SP Serum or plasma potassium measurement (moles/volume) 3.7 mmol/L SP 3.6-5.0 SP Serum or plasma chloride measurement (moles/volume) 104 mmol/L SP 98-107 SP Carbon dioxide 25 mmol/L 21-32 SP Serum or plasma anion gap determination (moles/volume) 13 mmol/L SP 5-14 SP Serum or plasma urea nitrogen measurement (mass/volume ) 7 mg/dL SP 7-18 SP Serum or plasma creatinine measurement (mass/volume) 0.93 mg/dL SP 0.60-1.30 SP Serum or plasma urea nitrogen/creatinine mass ratio 8 NRG SP Serum or plasma creatinine measurement w ith calculation of estimated glomerular SP rate > NRG SP Serum or plasma glucose measurement (mass/volume) 121 mg/dL SP105 Serum or plasma calcium measurement (mass/volume) 9.0 mg/dL SP10.1 Serum or plasma total bilirubin measurement (mass/volu me) 0.3 mg/dL SP 0.1-1.0 SP Serum or plasma alkaline phosphatase wayne surement (enzymatic activity/volume) SP 62 U/L 40-136 SP Serum or plasma aspartate aminotransfera se measurement (enzymatic SP 20 U/L 5-34 SP Serum or plasma alanine aminotransferase measurement (enzymatic activity/volume) SP 38 U/L 0-55 SP Serum or plasma protein measurement (mass/volume) 7.3 g/dL SP8.2 Serum or plasma albumin measurement (mass/volume) 4.3 g/dL SP4.5 Lipid 1996 panel - 11/07/17 08:09 POS Serum or plasma triglyceride measurement (mass/volume) 96 mg/dL SP <150 SP Serum or plasma cholesterol measurement (mass/volume) 139 mg/dL SP < 200 SP Serum or plasma cholesterol in HDL measurement (mass/v olume) 43 mg/dL SP 40-60 SP Cholesterol in LDL [mass/volume] in serum or plasma by direct assay 84 SPmg/dL 1-129 SP Serum or plasma cholesterol in VLDL measurement (mass/ volume) 19 mg/dL SP 5-40 SP Methicillin resistant Staphylococcus aur eus (MRSA) screening culture - 11/07/17 POS Methicillin resistant Staphylococcus aureus (MRSA) scr eening culture POS NRG SP Bacteria identification in isolate by an aerobe culture - 11/08/17 10:45 POS Bacteria identification in isolate by anaerobe culture NG SP Gram stain microscopy - 11/08/17 10:45 POS GRAM STAIN RESULT NO WBC'S OR BACTERIA OBSERVED NRG SP Bacteria identification in wound by cult ure - 11/08/17 10:45 POS Bacteria identification in wound by culture NG NRG SP CBC - 11/30/17 11:00 POS WHITE BLOOD CELL COUNT 13.1 Thousand/uL 3.8-10.8 SP RED BLOOD CELL COUNT 4.72 Million/uL 4.2 0-5.80 SP HEMOGLOBIN 13.8 g/dL 13.2-17.1 SP HEMATOCRIT 42.4 % 38.5-50.0 SP MCV 89.8 fL 80.0-100.0 SP MCH 29.2 pg 27.0-33.0 SP MCHC 32.5 g/dL 32.0-36.0 SP RDW 13.2 % 11.0-15.0 SP PLATELET COUNT 383 Thousand/uL 140-400 SP MPV 9.8 fL 7.5-12.5 SP ABSOLUTE NEUTROPHILS 9209 cells/uL 1500- 7800 SP ABSOLUTE LYMPHOCYTES 2699 cells/uL 850-3 900 SP ABSOLUTE MONOCYTES 1035 cells/uL 200-950 SP ABSOLUTE EOSINOPHILS 92 cells/uL 15-500 SP ABSOLUTE BASOPHILS 66 cells/uL 0-200 SP NEUTROPHILS 70.3 % NRG SP LYMPHOCYTES 20.6 % NRG SP MONOCYTES 7.9 % NRG SP EOSINOPHILS 0.7 % NRG SP BASOPHILS 0.5 % NRG SP CMP - 03/07/18 09:55 POS GLUCOSE 94 mg/dL 65-99 SP UREA NITROGEN (BUN) 14 mg/dL 7-25 SP CREATININE 1.09 mg/dL 0.70-1.33 SP eGFR NON-AFR. SYRIAN 75 mL/min/1.73m2 > OR=60 SP eGFR 87 mL/min/1.73m2 > OR=60 SP BUN/CREATININE RATIO NOT APPLICABLE (calc) 6-22 SP SODIUM 143 mmol/L 135-146 SP POTASSIUM 4.1 mmol/L 3.5-5.3 SP CHLORIDE 104 mmol/L 98-110 SP CARBON DIOXIDE 28 mmol/L 20-32 SP CALCIUM 9.8 mg/dL 8.6-10.3 SP PROTEIN, TOTAL 7.4 g/dL 6.1-8.1 SP ALBUMIN 4.7 g/dL 3.6-5.1 SP GLOBULIN 2.7 g/dL (calc) 1.9-3.7 SP ALBUMIN/GLOBULIN RATIO 1.7 (calc) 1.0-2. 5 SP BILIRUBIN, TOTAL 0.4 mg/dL 0.2-1.2 SP ALKALINE PHOSPHATASE 59 U/L 40-115 SP AST 19 U/L 10-35 SP ALT 34 U/L 9-46 SP CBC - 03/07/18 09:55 POS WHITE BLOOD CELL COUNT 11.2 Thousand/uL 3.8-10.8 SP RED BLOOD CELL COUNT 5.02 Million/uL 4.2 0-5.80 SP HEMOGLOBIN 14.7 g/dL 13.2-17.1 SP HEMATOCRIT 44.5 % 38.5-50.0 SP MCV 88.6 fL 80.0-100.0 SP MCH 29.3 pg 27.0-33.0 SP MCHC 33.0 g/dL 32.0-36.0 SP RDW 12.7 % 11.0-15.0 SP PLATELET COUNT 354 Thousand/uL 140-400 SP MPV 9.9 fL 7.5-12.5 SP ABSOLUTE NEUTROPHILS 6810 cells/uL 1500- 7800 SP ABSOLUTE LYMPHOCYTES 3259 cells/uL 850-3 900 SP ABSOLUTE MONOCYTES 896 cells/uL 200-950 SP ABSOLUTE EOSINOPHILS 168 cells/uL 15-500 SP ABSOLUTE BASOPHILS 67 cells/uL 0-200 SP NEUTROPHILS 60.8 % NRG SP LYMPHOCYTES 29.1 % NRG SP MONOCYTES 8.0 % NRG SP EOSINOPHILS 1.5 % NRG SP BASOPHILS 0.6 % NRG SP Complete blood count (CBC) with automate d white blood cell (WBC) differential - POS 12:35 Blood leukocytes automated count (number/volume) 14.9 10*3/uL POS 4.3-11.0 SP Blood erythrocytes automated count (number/volume) 5.11 10*6/uL SP 4.35-5.85 SP Venous blood hemoglobin measurement (mass/volume) 14.8 g/dL SP17.7 Blood hematocrit (volume fraction) 43 % 40-54 SP Automated erythrocyte mean corpuscular volume 85 [ foz_us] SP99 Automated erythrocyte mean corpuscular h emoglobin (mass per erythrocyte) SP 29 pg 25-34 SP Automated erythrocyte mean corpuscular h emoglobin concentration measurement SP 34 g/dL 32-36 SP Automated erythrocyte distribution width ratio 13. 6 % 10.0- SP Automated blood platelet count (count/volume) 437 10*3/uL SP400 Automated blood platelet mean volume measurement 9.5 [foz_us] SP 7.4-10.4 SP Automated blood neutrophils/100 leukocytes 70 % 42-75 SP Automated blood lymphocytes/100 leukocytes 20 % 12-44 SP Blood monocytes/100 leukocytes 9 % 0-12 SP Automated blood eosinophils/100 leukocytes 0 % 0-10 SP Automated blood basophils/100 leukocytes 1 % 0-10 SP Blood neutrophils automated count (number/volume) 10.5 10*3 SP7.8 Blood lymphocytes automated count (number/volume) 3.0 10*3 SP4.0 Blood monocytes automated count (number/volume) 1. 4 10*3 SP1.0 Automated eosinophil count 0.0 10*3/uL 0 .0-0.3 SP Automated blood basophil count (count/volume) 0.1 10*3/uL SP0.1 Blood manual differential performed dete ction - 04/06/18 12:35 POS Blood monocytes/100 leukocytes 11 % NRG SP Manual blood segmented neutrophils/100 leukocytes 75 % NRG SP Manual blood lymphocytes/100 leukocytes 14 % NRG SP Blood erythrocyte morphology finding identification NORMAL SP Comprehensive metabolic panel - 04/06/18 12:35 POS Serum or plasma sodium measurement (moles/volume) 138 mmol/L SP 135-145 SP Serum or plasma potassium measurement (moles/volume) 3.7 mmol/L SP 3.6-5.0 SP Serum or plasma chloride measurement (moles/volume) 100 mmol/L SP 98-107 SP Carbon dioxide 23 mmol/L 21-32 SP Serum or plasma anion gap determination (moles/volume) 15 mmol/L SP 5-14 SP Serum or plasma urea nitrogen measurement (mass/volume ) 20 mg/dL SP 7-18 SP Serum or plasma creatinine measurement (mass/volume) 1.28 mg/dL SP 0.60-1.30 SP Serum or plasma urea nitrogen/creatinine mass ratio 16 NRG SP Serum or plasma creatinine measurement w ith calculation of estimated glomerular SP rate 58 NRG SP Serum or plasma glucose measurement (mass/volume) 120 mg/dL SP105 Serum or plasma calcium measurement (mass/volume) 9.9 mg/dL SP10.1 Serum or plasma total bilirubin measurement (mass/volu me) 0.6 mg/dL SP 0.1-1.0 SP Serum or plasma alkaline phosphatase wayne surement (enzymatic activity/volume) SP 49 U/L 40-136 SP Serum or plasma aspartate aminotransfera se measurement (enzymatic SP 22 U/L 5-34 SP Serum or plasma alanine aminotransferase measurement (enzymatic activity/volume) SP 31 U/L 0-55 SP Serum or plasma protein measurement (mass/volume) 7.8 g/dL SP8.2 Serum or plasma albumin measurement (mass/volume) 4.8 g/dL SP4.5 Serum or plasma C reactive protein measu rement (mass/volume) - 04/06/18 12:35 POS Serum or plasma C reactive protein measurement (mass/v olume) 0.57 POS 0.00-0.50 SP Arterial blood gas measurement - 8 09:06 POS Blood pCO2 36 mm[Hg] 35-45 SP Blood pO2 70 mm[Hg] 79-93 SP Arterial blood bicarbonate measurement (moles/volume) 24 mmol/L SP 23-27 SP Arterial blood base excess by calculation -0.5 mmo l/L SP Arterial blood oxygen saturation measurement 97 % 94-100 SP * Inhaled oxygen flow rate 0 NRG SP Arterial blood pH measurement with patient temperature correction 7.43 SP 7.37-7.43 SP Arterial blood carbon dioxide, total measurement (mole s/volume) 24.6 SP 21.0-31.0 SP Body site L BRACHIAL NRG SP Assessment of wrist artery patency prior to arterial p uncture POSITIVE SP NRG SP Setting of ventilation mode NO NR G SP Measurement of body temperature 97.1 NRG SP CBC - 09/11/18 09:55 POS WHITE BLOOD CELL COUNT 11.0 Thousand/uL 3.8-10.8 SP RED BLOOD CELL COUNT 4.69 Million/uL 4.2 0-5.80 SP HEMOGLOBIN 13.8 g/dL 13.2-17.1 SP HEMATOCRIT 41.2 % 38.5-50.0 SP MCV 87.8 fL 80.0-100.0 SP MCH 29.4 pg 27.0-33.0 SP MCHC 33.5 g/dL 32.0-36.0 SP RDW 12.6 % 11.0-15.0 SP PLATELET COUNT 421 Thousand/uL 140-400 SP MPV 10.3 fL 7.5-12.5 SP ABSOLUTE NEUTROPHILS 6171 cells/uL 1500- 7800 SP ABSOLUTE LYMPHOCYTES 3575 cells/uL 850-3 900 SP ABSOLUTE MONOCYTES 957 cells/uL 200-950 SP ABSOLUTE EOSINOPHILS 231 cells/uL 15-500 SP ABSOLUTE BASOPHILS 66 cells/uL 0-200 SP NEUTROPHILS 56.1 % NRG SP LYMPHOCYTES 32.5 % NRG SP MONOCYTES 8.7 % NRG SP EOSINOPHILS 2.1 % NRG SP BASOPHILS 0.6 % NRG SP CBC - 07/11/19 12:11 POS WHITE BLOOD CELL COUNT 9.7 Thousand/uL 3 .8-10.8 SP RED BLOOD CELL COUNT 4.66 Million/uL 4.2 0-5.80 SP HEMOGLOBIN 13.1 g/dL 13.2-17.1 SP HEMATOCRIT 41.7 % 38.5-50.0 SP MCV 89.5 fL 80.0-100.0 SP MCH 28.1 pg 27.0-33.0 SP MCHC 31.4 g/dL 32.0-36.0 SP RDW 13.2 % 11.0-15.0 SP PLATELET COUNT 432 Thousand/uL 140-400 SP MPV 10.4 fL 7.5-12.5 SP ABSOLUTE NEUTROPHILS 6315 cells/uL 1500- 7800 SP ABSOLUTE LYMPHOCYTES 2357 cells/uL 850-3 900 SP ABSOLUTE MONOCYTES 776 cells/uL 200-950 SP ABSOLUTE EOSINOPHILS 194 cells/uL 15-500 SP ABSOLUTE BASOPHILS 58 cells/uL 0-200 SP NEUTROPHILS 65.1 % NRG SP LYMPHOCYTES 24.3 % NRG SP MONOCYTES 8.0 % NRG SP EOSINOPHILS 2.0 % NRG SP BASOPHILS 0.6 % NRG SP Methicillin resistant Staphylococcus aur eus (MRSA) screening culture - 03/14/19 POS Methicillin resistant Staphylococcus aureus (MRSA) scr eening culture POS NRG SP Capillary blood glucose measurement by g lucometer (mass/volume) - 03/20/19 07:54 POS Capillary blood glucose measurement by glucometer (mas s/volume) 147 POS 70-110 SP Encounters ACCT No. Visit Date/Time Discharge Status POS Pt. Type Provider Facility Loc./Un it POS Complaint POS [id number] 02/07/2019 09:40:00 02/07/2019 23:59: 59 CLS SP Outpatient KINJAL WEBER, DORIS Butcher [facility] [place] [id number] 12/13/2018 12:00:00 Document SPRegistration SP [id number] 09/11/2018 09:40:00 Document SPRegistration SP [id number] 03/07/2018 09:00:00 Document SPRegistration SP [id number] 11/30/2017 09:40:00 Document SPRegistration SP [id number] 04/08/2019 14:48:00 23:59:59 SP CLS Preadmit JOHN HUFFMAN APRN Via [facility] RAD SOB SP [id number] 04/05/2019 10:01:00 23:59:59 SP CLS Outpatient MAN LEO MD Via [facility] REHAB S/P R BICEPS TENOTOM Y;R LONG SP A1 LINDA RELE [id number] 03/20/2019 07:41:00 12:25:00 SP DIS Outpatient MAN LEO MD Via [facility] SDC RIGHT ROTATOR CUFF T EAR, RIGHT SP TRIGGER FINGER [id number] 03/14/2019 10:24:00 11:21:00 SP DIS Outpatient MAN LEO MD Via [facility] PREOP RIGHT ROTATOR CUFF T EAR, RIGHT SPLONG TRIGGER FINGER [id number] 12/07/2018 08:37:00 23:59:59 SP CLS Outpatient MYRTLE JOHNSON APRN Via [facility] RAD NECK PAIN SP [id number] 07/09/2018 10:05:00 12:03:00 SP DIS [facility] SP [id number] 08/13/2018 00:10:00 23:59:59 SP CLS Preadmit JOHN HUFFMAN APRN [facility] SOB,COPD,ASTHMA [id number] 07/05/2018 10:00:00 00:01:00 SP DIS Outpatient JOHN HUFFMAN APRN Via [facility] PUL SOB,COPD,ASTHMA SP [id number] 06/18/2018 10:45:00 23:59:59 SP CLS Preadmit DORIS LAYTON MD Via [facility] J43.1 PANLOBULAR EMPHYZEMA SP [id number] 04/12/2018 10:00:00 00:01:00 SP DIS Outpatient DORIS LAYTON MD Via [facility] J43.1 PANLOBULAR EMPH YZEMA SP [id number] 05/23/2018 15:11:00 018 23:59:59 SP CLS Outpatient ANUP POTTS Dorie 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 PROGRAM LEADER Via [facility] RAD ROTATOR CUFF TEAR PARTIAL RI GHT SP [id number] 05/15/2018 16:53:00 23:59:59 SP CLS Preadmit JOHN HUFFMAN TRACK PRODUCTION ENGINEER Via [facility] RAD COPD,TOBACCO USE SP [id number] 04/11/2018 08:42:00 23:59:59 SP CLS Outpatient JOHN HUFFMAN TRACK PRODUCTION ENGINEER Via [facility] RT SOB SP [id number] 04/06/2018 11:27:00 15:35:00 SP DIS Emergency NARAYAN RAMOS MD Via [facility] ER EAR PAIN SP [id number] 04/03/2018 14:31:00 018 15:21:00 SP DIS Emergency EDINAMY COUNSELING PROGRAM LEADER Via [facility] ER L EAR PAIN SP [id number] 03/26/2018 13:48:00 23:59:59 SP CLS Preadmit JOHN HUFFMAN TRACK PRODUCTION ENGINEER Via [facility] RAD SOB SP [id number] 03/21/2018 10:11:00 018 23:59:59 SP CLS Outpatient DORIS LAYTON MD Via [facility] RAD LUMBAR BACK PAIN SP [id number] 12/11/2017 09:37:00 018 23:59:59 SP CLS Outpatient MAN ALVARES MD Via [facility] WOUNDCARE SP [id number] 12/05/2017 14:50:00 018 23:59:59 SP CLS Outpatient MAN ALVARES MD Via [facility] WOUNDCARE SP [id number] 11/27/2017 09:59:00 018 23:59:59 SP CLS Outpatient MAN ALVARES MD Via [facility] WOUNDCARE SP [id number] 11/20/2017 09:55:00 018 23:59:59 SP CLS Outpatient MAN ALVARES MD Via [facility] WOUNDCARE SP [id number] 11/13/2017 10:25:00 018 23:59:59 SP CLS Outpatient JOE WEBER FACC, ALI FACP CC DS SP [facility] LAB R06.02,I25.1 0 SP [id number] 11/13/2017 09:48:00 018 23:59:59 SP CLS Outpatient MAN ALVARES MD Via [facility] WOUNDCARE SP [id number] 11/08/2017 09:59:00 018 23:59:59 SP CLS Outpatient MAN ALVARES MD [facility] SP [id number] 11/07/2017 07:21:00 018 14:15:00 SP DIS Outpatient JOE WEBER FAC, ALI FACP CC DS [facility] CATH CAD,ANGINA,S OB,FATIGUE SP [id number] 10/31/2017 13:43:00 018 23:59:59 SP CLS Outpatient MAN ALVARES MD Via [facility] LAB T81.31XA,L98.492 SP [id number] 10/31/2017 12:36:00 018 23:59:59 SP CLS Outpatient MAN ALVARES MD Via [facility] WOUNDCARE SP [id number] 10/23/2017 09:53:00 018 23:59:59 SP CLS Outpatient MAN ALVARES MD Via [facility] WOUNDCARE SP [id number] 10/16/2017 09:39:00 018 23:59:59 SP CLS Outpatient MAN ALVARES MD Via [facility] WOUNDCARE SP [id number] 10/09/2017 09:47:00 018 23:59:59 SP CLS Outpatient MAN ALVARES MD Via [facility] WOUNDCARE SP [id number] 10/04/2017 12:34:00 23:59:59 SP CLS Outpatient MAN ALVARES MD Via [facility] WOUNDCARE SP [id number] 09/25/2017 09:48:00 23:59:59 SP CLS Outpatient MAN ALVARES MD Via [facility] WOUNDCARE SP [id number] 09/18/2017 09:33:00 23:59:59 SP CLS Outpatient MAN ALVARES MD Via [facility] WOUNDCARE SP [id number] 09/11/2017 09:49:00 23:59:59 SP CLS Outpatient MAN ALVARES MD Via [facility] WOUNDCARE SP [id number] 09/04/2017 09:45:00 23:59:59 SP CLS Outpatient MAN ALVARES MD Via [facility] WOUNDCARE SP [id number] 08/31/2017 09:59:00 018 23:59:59 SP CLS Outpatient DYLAN PRADHAN MD Via [facility] WOUNDCARE SP [id number] 08/28/2017 09:57:00 018 23:59:59 SP CLS Outpatient MAN ALVARES MD Via [facility] WOUNDCARE SP [id number] 08/25/2017 10:19:00 018 23:59:59 SP CLS Outpatient MAN ALVARES MD Via [facility] WOUNDCARE SP [id number] 08/25/2017 10:14:00 018 23:59:59 SP CLS Outpatient DORIS LAYTON MD Via [facility] RAD Z72.0 TOBACCO USE SP [id number] 08/18/2017 09:59:00 018 23:59:59 SP CLS Outpatient MAN ALVARES MD Via [facility] WOUNDCARE SP [id number] 08/15/2017 10:52:00 23:59:59 SP CLS Outpatient JOE WEBER FACC, MAGDA SUN CC DS SP [facility] CARD R06.02 SOB SP [id number] 07/13/2017 10:04:00 018 16:10:00 SP DIS Outpatient GALINA WALKER MD Via [facility] SDC LIPOMA SP [id number] 07/05/2017 05:29:00 018 11:19:00 SP DIS Outpatient GALINA WALKER MD Via [facility] PREOP LIPOMA SP [id number] 04/14/2017 11:38:00 017 23:59:59 SP CLS Outpatient BAIEMELIA CARYP Via [facility] LAB E78.4, I10 SP [id number] 01/17/2017 09:22:00 017 23:59:59 SP CLS Preadmit ASHWIN KRISHNAN Via [facility] ONC SP [id number] 11/15/2016 09:58:00 017 23:59:59 SP CLS Outpatient DORIS LAYTON MD Via [facility] RAD M47.892 SP [id number] 10/18/2016 15:55:00 017 23:59:59 SP CLS Outpatient BAIEMELIA CARY Via [facility] LAB HLD,HTN,SOB SP [id number] 09/23/2016 10:01:00 017 10:56:00 SP DIS Outpatient NATHANIEL MONSIVAIS MD Via [facility] CARD DISC DISORDER SP [id number] 09/19/2016 10:30:00 017 23:59:59 SP CLS Outpatient MAN JOHNSON MD Via [facility] RAD SMOKER,CHRONIC SORE T HROAT SP [id number] 09/08/2016 09:31:00 017 23:59:59 SP CLS Outpatient BAIEMELIA CARY Via [facility] LAB CAD,HTN SP [id number] 08/15/2016 12:39:00 017 14:01:00 SP DIS Outpatient NATHANIEL MONSIVAIS MD Via [facility] CARD DISC DISORDER SP [id number] 07/26/2016 10:59:00 017 23:59:59 SP CLS Outpatient MAGDA DIAZ MD, FACC, FACP DS SP [facility] RAD LT LEG VIANEY ICATION SP [id number] 07/26/2016 08:54:00 017 23:59:59 SP CLS Outpatient MAGDA DIAZ MD, FACC, FACP DS SP [facility] CARD SOB,CHEST SP [id number] 07/21/2016 07:51:00 017 23:59:59 SP CLS Outpatient EMELIA GLOVER COUNSELING PROGRAM LEADER Via [facility] RAD POSTOPERATIVE GROIN SP [id number] 07/20/2016 11:15:00 017 23:59:59 SP CLS Outpatient EMELIA GLOVER L COUNSELING PROGRAM LEADER Via [facility] RAD RT GROIN PAIN SP [id number] 07/19/2016 20:20:00 017 23:59:59 SP CLS Outpatient JT FERNANDEZ DO Via [facility] SLEEP BARAK SP [id number] 07/12/2016 07:55:00 017 13:00:00 SP DIS Outpatient MAGDA DIAZ MD, FACC, FACP DS [facility] CATH SOB,CHEST SP [id number] 06/29/2016 09:14:00 017 12:15:00 SP DIS Outpatient GALINA WALKER MD Via [facility] ENDO ABDOMINAL PAIN;REFLUX SP [id number] 06/23/2016 05:38:00 017 11:36:00 SP DIS Outpatient GALINA WALKER MD Via [facility] PREOP ABDOMINAL PAIN;REFLUX SP [id number] 06/02/2016 08:44:00 016 23:59:59 SP CLS Outpatient LARRY CHING TRACK PRODUCTION ENGINEER Via [facility] CARD RUQ PAIN SP [id number] 05/20/2016 09:21:00 016 23:59:59 SP CLS Outpatient CINDY CHINGIN L TRACK PRODUCTION ENGINEER Via [facility] RAD RUQ PAIN SP [id number] 05/18/2016 10:38:00 23:59:59 SP CLS Outpatient JT FERNANDEZ DO Via [facility] RAD COPD,OBESITY,TOBACCO USER, THMA SP [id number] 03/23/2016 13:51:00 23:59:59 SP CLS Outpatient DORIS LAYTON MD Via [facility] RAD OSTEOARTHRITIS OF SPI NE SP [id number] 09/02/2015 12:42:00 016 23:59:59 SP CLS Outpatient DORIS LAYTON MD Via [facility] ENLARGED LYMPH NODE I N NECK SP [id number] 08/27/2015 17:05:00 23:59:59 SP CLS Outpatient DORIS LAYTON MD Via [facility] LAB CT ANGIO HEAD W/O W CONTRAST, SP CREATINE [id number] 07/22/2015 10:03:00 23:59:59 SP CLS Outpatient DORIS LAYTON MD Via [facility] NECK ABCESS SP [id number] 03/06/2015 07:02:00 07:51:00 SP DIS Outpatient NATHANIEL MONSIVAIS MD Via [facility] DDD SP [id number] 01/27/2015 12:28:00 23:59:59 SP CLS Outpatient SURYA CABAN MD Via [facility] CHEST PAIN,DYSPNEA SP [id number] 01/22/2015 14:42:00 23:59:59 SP CLS Outpatient DORIS LAYTON MD Via [facility] RAD CHRONIC LBP,DEGENERAT SIMIN SP OF C S/P [id number] 12/16/2014 11:13:00 23:59:59 SP CLS Outpatient SURYA CABAN MD Via [facility] SP [id number] 11/26/2014 12:23:00 23:59:59 SP CLS Outpatient BAN CARD K SP [facility] CARD SP [id number] 04/11/2019 09:30:[address] JOHN STEPHENS APRN Via [facility] SP PULM TOBACCO USER, SOB SP [id number] 01/17/2018 09:26:00 SP Registration SP [id number] 2016 09:24:00 SP Registration SP
== END 2019-03-20 12:25 | disposition home or self-care (01) ==
LOC: SDC 07:41
PROVIDERS: ATTEND Orthopaedic Surgery
DX: S43.431A Superior glenoid labrum lesion of right shoulder, initial encounter (principal); S43.421A Sprain of right rotator cuff capsule, initial encounter; M65.331 Trigger finger, right middle finger; M75.51 Bursitis of right shoulder; I10 Essential (primary) hypertension; I25.2 Old myocardial infarction; J44.9 Chronic obstructive pulmonary disease, unspecified; G47.30 Sleep apnea, unspecified; E66.09 Other obesity due to excess calories; E78.00 Pure hypercholesterolemia, unspecified; F32.9 Major depressive disorder, single episode, unspecified; F17.210 Nicotine dependence, cigarettes, uncomplicated; Z79.82 Long term (current) use of aspirin; Z86.73 Personal history of transient ischemic attack (TIA), and cerebral infarction without residual deficits; Z88.1 Allergy status to other antibiotic agents; Z88.0 Allergy status to penicillin; Z99.89 Dependence on other enabling machines and devices; Z68.35 Body mass index [BMI] 35.0-35.9, adult; Z80.3 Family history of malignant neoplasm of breast; Z82.49 Family history of ischemic heart disease and other diseases of the circulatory system; Z83.3 Family history of diabetes mellitus
CPT/HCPCS: 82962

== ENCOUNTER 2019-04-08 09:04 | Outpatient (RCR) | payer MEDICAID ==
[~2019-04-08 09:04] MED LIST changes: +METO-370 PO; -METO50TA7 PO; -OMEP-280 PO; +OMEP20CA13 PO; -OMEP40CA27 PO; +OMEP40CA36 PO; +OXYC-471 PO; +TRAZ-222 PO; -TRZ50T PO
== END 2019-05-21 13:44 | disposition home or self-care (01) ==
PROVIDERS: ATTEND Orthopaedic Surgery
DX: M75.101 Unspecified rotator cuff tear or rupture of right shoulder, not specified as traumatic (principal); M75.20 Bicipital tendinitis, unspecified shoulder

== ENCOUNTER → 2019-05-07 | Outpatient (RCR) | payer MEDICAID ==
[2019-02-12 08:05] VITALS: BP 118/60
[2019-02-12 08:55] VITALS: BP 110/65
[2019-02-14 10:35] VITALS: BP 110/74
[2019-02-14 11:35] VITALS: BP 118/70
[2019-02-21 10:35] VITALS: BP 120/70
[2019-03-05 10:45] VITALS: BP 116/70
[2019-03-05 12:00] VITALS: BP 118/60
[2019-03-07 09:30] VITALS: BP 112/70
[2019-03-07 10:45] VITALS: BP 115/50
[2019-03-12 09:25] VITALS: BP 115/50
[2019-03-12 10:28] VITALS: BP 115/50
[2019-03-14 09:30] VITALS: BP 120/50
[2019-03-14 10:39] VITALS: BP 130/70
[2019-04-09 09:25] VITALS: BP 122/80
[2019-04-09 10:20] VITALS: BP 118/70
[2019-04-11 09:30] VITALS: BP 120/61
[2019-04-11 10:45] VITALS: BP 115/50
[2019-04-16 09:25] VITALS: BP 122/50
[2019-04-16 09:30] VITALS: BP 122/50
[2019-04-16 10:13] VITALS: BP 120/50
[2019-04-23 09:30] VITALS: BP 132/68
[2019-04-23 10:25] VITALS: BP 128/74
[2019-04-25 09:30] VITALS: BP 100/50
[2019-04-25 11:10] VITALS: BP 102/40
[2019-04-30 09:30] VITALS: BP 110/67
[2019-04-30 10:20] VITALS: BP 90/60
[2019-05-07 09:30] VITALS: BP 116/60
[2019-05-07 10:32] VITALS: BP 115/62
[2019-05-09 09:10] VITALS: BP 130/74
[2019-05-09 09:20] VITALS: BP 130/70
[2019-05-30 10:10] VITALS: BP 122/70
[2019-05-30 10:20] VITALS: BP 110/70
== END | disposition home or self-care (01) ==
LOC: PULM 02-06 13:49
PROVIDERS: ATTEND Nurse Practitioner Family
DX: J45.909 Unspecified asthma, uncomplicated (principal); J43.8 Other emphysema; R09.02 Hypoxemia; Z72.0 Tobacco use
CPT/HCPCS: 99211

== ENCOUNTER 2019-06-06 09:24 | Outpatient (RCR) | payer MEDICAID ==
[2019-06-04 09:20] VITALS: BP 150/78
[2019-06-04 10:18] VITALS: BP 170/70
[2019-06-06 09:15] VITALS: BP 140/80
[~2019-06-06 09:24] MED LIST changes: +ACHD5005 PO; -HYDR-3812 PO; -HYDR-3816 PO; -METO-370 PO; +METO50TA7 PO; -OMEP20CA13 PO; +OMEP20CA18 PO; +OMEP40CA27 PO; -OMEP40CA36 PO; -TRAZ-222 PO; +TRZ50T PO
[2019-06-06 10:05] VITALS: BP 122/80
== END 2019-09-04 | disposition home or self-care (01) ==
LOC: PULM 09:24
PROVIDERS: ATTEND Nurse Practitioner Family
DX: J45.909 Unspecified asthma, uncomplicated (principal); J43.8 Other emphysema; R09.02 Hypoxemia; Z72.0 Tobacco use

== ENCOUNTER → 2019-06-20 | Outpatient (CLI) | payer MEDICAID ==
[~2019-06-20] MED LIST changes: -ACHD5005 PO; +HYDR-3812 PO; +HYDR-3816 PO; +OMEP-280 PO; -OMEP20CA18 PO
--- NOTE | 2019-06-20 14:14 | Diagnostic Imaging Report ---
EXAM: CT CHEST SCREENING WO INDICATION: 43 pack year smoking history. Current smoker. COMPARISON: CTA chest 04/11/2018. FINDINGS: Calcified granuloma in the anterior right upper lobe is stable. No new suspicious pulmonary nodule or mass. Mild diffuse bronchial wall thickening. No endobronchial lesions. No pleural effusion or pneumothorax. Moderate atherosclerotic calcifications including coronary. Normal heart size. No pericardial effusion. No mediastinal, hilar or axillary lymphadenopathy. Osseous structures are intact. The visualized upper abdominal contents are unremarkable. IMPRESSION: 1. No suspicious nodule or mass. Recommend continuing annual screening with low-dose chest CT in 12 months. 2. Moderate atherosclerotic calcifications including coronary. Lung RADS category: 1. Modifier: None. Please note that the low-dose technique of this chest CT is of non-diagnostic quality. This study is only intended for lung cancer screening of high risk patients. Dictated by: Dictated on workstation # [id number]
== END ==
LOC: RAD 12:02
PROVIDERS: ATTEND Nurse Practitioner Family
DX: Z12.2 Encounter for screening for malignant neoplasm of respiratory organs (principal); F17.210 Nicotine dependence, cigarettes, uncomplicated; I25.10 Atherosclerotic heart disease of native coronary artery without angina pectoris

== ENCOUNTER → 2019-08-12 | Outpatient (CLI) | payer MEDICAID ==
[~2019-08-12] MED LIST changes: +ACHD5005 PO; -HYDR-3812 PO; -HYDR-3816 PO; -OMEP-280 PO; +OMEP20CA18 PO; +RT-ALBUTEROL SULF 2.5 MG/3 ML PRE-MIX VIAL INH ONE
== END ==
LOC: RT 14:09
PROVIDERS: ATTEND Nurse Practitioner Family
DX: J44.9 Chronic obstructive pulmonary disease, unspecified (principal)
CPT/HCPCS: 94060; 94726; 94729

== ENCOUNTER 2019-11-14 05:43 | Outpatient (RCR) | payer MEDICAID ==
[~2019-11-14] VITALS: Ht 172 cm; Wt 104.0 kg
[~2019-11-14 05:43] MED LIST changes: -RT-ALBUTEROL SULF 2.5 MG/3 ML PRE-MIX VIAL INH ONE
[2019-11-19] MEDS ORDERED: PANT40TA2 PO (11:16)
== END 2019-11-14 15:05 | disposition home or self-care (01) ==
LOC: PREOP 05:43
PROVIDERS: ATTEND Surgery
DX: Z01.818 Encounter for other preprocedural examination (principal); D50.9 Iron deficiency anemia, unspecified; Z20.828 Contact with and (suspected) exposure to other viral communicable diseases
CPT/HCPCS: 87635

== ENCOUNTER 2019-11-19 09:22 | Day surgery (SDC) | payer MEDICAID ==
[~2019-11-19] VITALS: Ht 172.7 cm; Wt 104.0 kg
[2019-11-19 09:25] VITALS: BP 119/85
[2019-11-19] MEDS ORDERED: LACTATED RINGERS 1,000 ML IV STA (09:25)
[2019-11-19] MEDS ORDERED: LACTATED RINGERS 1,000 ML IV ONE (09:31)
--- OUTSIDE RECORDS SUMMARY | 2019-11-19 10:29 | XMS REPORT | Clinical Summary ---
Author Author [facility] Organization [facility] Address Unknown Phone Unavailable Care Team Providers Care Weight Loss Sales Consultant Name Role Phone Aundrea Masters MD PCP Source Comments Some departments are not documenting in the electronic medical record. If you d o not see the information that you expected, contact Release of Information in [facility] Information Management department at [phone] for further assistan ce in locating additional records.[facility] Allergies Comments Active Allergy Reactions Severity Noted Date Ampicillin ANAPHYLAXIS High 07/14/2016 Penicillins ANAPHYLAXIS High 07/14/2016 Tetracycline NAUSEA AND Low 07/14/2016 VOMITING Medications End Date Status Medication Sig Dispensed Refills Start Date Active MULTIVITAMIN PO Take by 0 mouth daily. Active ibuprofen (MOTRIN) 400 mg Take 400 mg 0 tablet by mouth every 8 hours as needed for Pain. Take with food. Active aspirin 81 mg chewable Chew 81 mg by 0 tablet mouth daily. Take with food. Active citalopram (CELEXA) 20 mg Take 20 mg by 0 tablet mouth daily. Active traZODone (DESYREL) 150 Take 150 mg 0 mg tablet by mouth at bedtime as needed. Active budesonide/formoterol Inhale 2 0 (SYMBICORT) 160/4.5 mcg Puffs by inhalation mouth into the lungs twice daily. Active montelukast (SINGULAIR) Take 10 mg by 0 10 mg tablet mouth at bedtime daily. Active Cetirizine (ZYRTEC) 10 mg Take by 0 cap mouth. Active dicyclomine (BENTYL) 20 Take 20 mg by 0 mg tablet mouth every 6 hours. Active dexlansoprazole (+) Take 60 mg by 0 (DEXILANT) 60 mg capsule mouth daily. Active Problems No known active problems Family History Medical History Relation Name Comments Cancer Father Diabetes Father Heart problem Father Hypertension Father Cancer Maternal Breast Grandmother Cancer Mother Diabetes Mother Heart problem Mother Hypertension Mother Relation Name Status Comments Brother Alive Brother Alive Brother Alive Daughter Alive Daughter Alive Father Maternal Grandmother Mother Sister Alive Son Alive Son Alive Social History Date Tobacco Use Types Packs/Day Years Used Current Every Day Smoker Drinks/Week oz/Week Comments Alcohol Use 0 Standard drinks or equivalent 0.0 No Sex Assigned at Date Recorded Not on file Industry Job Start Date Occupation Not on file Not on file Not on file Travel End Travel History Travel Start No recent travel history available. Last Filed Vital Signs Reading Time Taken Comments Vital Sign 134/84 07/19/2016 12:12 PM DIRECTOR OF [employer] Blood Pressure 88 07/19/2016 12:12 PM [employer] Pulse 36.7 C (98 F) 07/19/2016 12:12 PM [employer] OF [employer] Temperature 22 07/19/2016 12:12 PM DIRECTOR OF [employer] Respiratory Rate 96% 07/19/2016 12:12 PM DIRECTOR OF CL[employer]D SERVICES Oxygen Saturation - - Inhaled Oxygen Concentration 107.5 kg (237 lb) 07/19/2016 12:12 PM DIRECTOR OF [employer]D SERVICES Weight 172.7 cm (5' 8") 07/19/2016 12:12 PM DIRECTOR OF [employer]D SERVICES Height 36.04 07/19/2016 12:12 PM DIRECTOR OF CLOUD SERVICES Body Mass Index Plan of Treatment Health Maintenance Due Date Last Done Comments HIV SCREENING 02/11/1976 DTAP/TDAP VACCINES (1 - 1979 Tdap) HEPATITIS C SCREENING 1979 PHYSICAL (COMPREHENSIVE) 1979 EXAM COLORECTAL CANCER 2011 SCREENING SHINGLES RECOMBINANT 2011 VACCINE (1 of 2) INFLUENZA VACCINE 03/05/2020 Results Not on filefrom Last 3 Months Insurance Type Payer Benefit Subscriber ID Effective Phone Address Plan / Dates Group Medicaid [facility] MEDICAID [facility] xxxxxxxxxxx [id number] [employer] [place] [address] [place] (Home) [place] [id number] Advance Directives 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
--- OUTSIDE RECORDS SUMMARY | 2019-11-19 10:31 | XMS REPORT ---
Author Author Kivra cleaning associate Brain Sentry [facility], [place] [facility] re[employer]ip Address [address] [address] Care Team Providers Care Wind Energy Project Manager Name Role Phone ANUP POTTS Unavailable Unavailable KINJAL, DORIS Unavailable Unavailable CAIN MOHINI Unavailable Unavailable NINOSKA GASTON Unavailable Unavailable ERWIN LEO Unavailable Unavailable SURYA CABAN Unavailable Unavailable RYAN PEDERSON Unavailable Unavailable ANUP POTTS Unavailable DIA NUGENT Unavailable Unavailable KINJAL, DORIS N Unavailable KINJAL, DORIS N Unavailable ERWIN LEO Unavailable RYAN Wang Unavailable ERWIN LEO Unavailable KINJAL, DORIS Unavailable KINJAL, DORIS Unavailable ERWIN LEO Unavailable KINJAL, DORIS Unavailable KINJAL, DORIS Unavailable ERWIN LEO Unavailable KINJAL, DORIS Unavailable KINJAL, DORIS Unavailable KINJAL, DORIS Unavailable ANGLETON, MARLIN Unavailable KINJAL, DORIS Unavailable ANGLETON, MARLIN Unavailable ANGLETON, MARLIN Unavailable KINJAL, DORIS Unavailable KINJAL, DORIS Unavailable KINJAL, DORIS Unavailable BOEKHOUT, ERWIN Unavailable KINJAL, DORIS Unavailable BOEKENDAL, ERWIN Unavailable ANN WADEIN Unavailable ANGLETON, MARLIN Unavailable KINJAL, DORIS Unavailable KINJAL, DORIS Unavailable KINJAL, DORIS Unavailable KINJAL, DORIS Unavailable KINJAL, DORIS Unavailable KINJAL, DORIS Unavailable KINJAL, DORIS Unavailable KINJAL, DORIS Unavailable ANGLETON, MARLIN Unavailable KINJAL, DORIS Unavailable KINJAL, DORIS Unavailable KINJAL, DORIS Unavailable KINJAL, DORIS Unavailable KINJAL, DORIS Unavailable KINJAL, DORIS Unavailable KINJAL, DORIS Unavailable KINJAL, DORIS Unavailable KINJAL, DORIS Unavailable KINJAL, DORIS Unavailable BOEKENDAL, ERWIN Unavailable ANGLETON, MARLIN Unavailable KINJAL, DORIS Unavailable KINJAL, DORIS Unavailable KINJAL, DORIS Unavailable ANGLETON, MARLIN Unavailable KINJAL, DORIS Unavailable KINJAL, DORIS Unavailable KINJAL, DORIS Unavailable JOE WEBER FACC, MAGDA GUILLENP CCDS Unavailable Unavailvitor PEDRAZA MD, GALINA Unavailable Unavailable JT FERNANDEZ DO Unavailable Unavailable KINJAL MD, DORIS N Unavailable Unavailable ANUP POTTS FILTER CHANGER Unavailable Unavailable LARRY CHING COLD STRIP ROLLER Unavailable Unavailable EMELIA GLOVER FILTER CHANGER Unavailable Unavailable BOEKHOUT, ERWIN Unavailable BOEKHOUT, ERWIN Unavailable KINJAL, DORIS Unavailable KINJAL, DORIS Unavailable KINJAL, DORIS Unavailable ARSH WEBER, SURYA Miramontes Unavailable Unavailable YODIT WEBER, NATHANIEL Miramontes Unavailable Unavailable MAN JOHNSON MD Unavailable Unavailable KINJAL, DORIS Unavailable KINJAL, DORIS Unavailable BOEKHOUT, ERWIN Unavailable KINJAL, DORIS Unavailable KINJAL, DORIS Unavailable KINJAL, DORIS Unavailable KINJAL, DORIS Unavailable KINJAL, DORIS Unavailable ARACELY BURGER Unavailable KINJAL, DORIS Unavailable KINJAL, DORIS Unavailable KINJAL, DORIS Unavailable KINJAL, DORIS Unavailable MARLIN SMITH Unavailable MAN LEO Unavailable MAN LEO PCP KINJAL, DORIS N Unavailable Unavailable ZAFUTA, MAN Unavailable Unavailable ZAFUTA, MAN Unavailable Unavailable ZAFUTA, MAN Unavailable Unavailable KINJAL, DORIS Unavailable OTHER, UNLISTED Unavailable Unavailable MYRTLE JOHNSON COLD STRIP ROLLER Unavailable Unavailable KINJAL, DORIS Unavailable KINJAL, DORIS Unavailable JOHN HUFFMAN COLD STRIP ROLLER Unavailable Unavailable KINJAL, DORIS N PCP MAN LEO MD Unavailable Unavailable MAN LEO PCP KINJAL MD, DORIS N Unavailable Unavailable JOHN HUFFMAN APRN Unavailable Unavailable Unavailable Unavailable MD Chito LEO PCP DORIS LAYTON Unavailable YESICA WOLFE DO Unavailable Unavailable Unavailable Unavailable Unavailable Unavailable Unavailable Unavailable Unavailable Unavailable Unavailable Unavailable Allergies Normalized Allergy Reported Date of Reaction(s) Care Provider Facility Allergy Type classification allergen Allergy Onset Allergy to Unclassified Erythromycin 03-14-2019 - N/V, N/V INE[facility] Via substance (20 base ANAIS HUFFMAN sources.) Translations: Hospital - [ erythromycin [place] base] ([address]) Drug Allergy peanut peanut 12-25-2017 - Unknown, MARLIN ANGLE [facility] (3 sources.) allergenic allergenic Unknown [id number] [facility] extract extract of [facility] Translations: [place] ([address]) [ Peanut (Diagnostic), Peanut (Diagnostic)] Medications Current Medications Medication Ingredient Drug Dose Dates Status Sig Sig Care Class(es) (Normalized) (Original) Provid er no Blood no 05-09-20 Active no Blood no information Glucose information 18 information Glucose name (4 Monitor Monitor sources.) System System w/Device w/Device Translation subcutaneous s: [ Blood ly 2 times a Glucose day three Monitor times weekly System DX: E11.65 w/Device] test blood sugar May, Active 11-30-2016 Active no Blood no name inform Glucose ation Monitor System w/Device DX- E 11.65 2 times a day- 3 times weekly. test blood sugar Nov, Active fluticasone fluticasone Corticoster 1 Active no Fluticas one no propionate oid spray( information Propionate name 0.05 s) Active 1 NOT mg/actuat APPLICABLE metered Bedtime 1 1 dose nasal SPRAY EACH spray (6 NARE DAILY sources.) no FreeStyle no Active no FreeStyle no information Filipe information information Filipe Sensor n jimena (1 source.) Sensor System - System - subcutaneous Translation ly 2 times a s: [ day 3 times FreeStyle weekly DX: Filipe E11.65 test Sensor blood sugar System -] Active 3 ml liraglutide GLP-1 1.8 mg 02-15-20 Active take 1.8 mg Buster toza 18 no liraglutide Translation Receptor 18 - by MG/3ML na me 6 mg/ml pen s: [ 3 ML Agonist 11-12-19 subcutaneous Subcutan eous injector liraglutide 20 injection Once a day (12 6 MG/ML Pen once daily 1.8 mg 24h sources.) Injector 12 Feb, 2018 [Victoza], Active Victoza 18 MG/3ML] 0.6 mg 02-14-2018 Active take Victoza no name 0.6 mg 18 by MG/3ML subcut Subcutan aneous eous inject Once a ion day 0.6 once mg daily daily, x 7 then days, take then 1.2 1.2 mg mg daily by 24h 12 subcut Feb, ane2017 inject Active ion once daily 24 hr metoprolol beta-Adrene Active no Metoprolol no metoprolol Translation rgic information Succinate name succinate s: [ Mae Active 50 50 mg Metoprolol ORAL Bedtime extended Succinate] release oral tablet (9 sources.) 50 mg Active no Metoprol no name inform ol ation Succinat e 50 MG Orally Once a day 1 capsule 24h Active no Multivitami no 03-14-20 Complete no Multivitamin no information n information 19 d information Discont inued name (12 preparation 1 ORAL Daily sources.) March 14, 2019 no no Multivit no name information inform perry ation Active 1 ORAL Daily 03-14-2019 Completed no Multivit no name inform perry ation Disconti nued 1 ORAL Daily March 14, 2019 polyethylen POLYETHYLEN Osmotic Active no Polyethylene no e glycol E GLYCOL Laxative information Glycol 3350 name 3350 [id number] 3350 Active 17 mg powder ORAL Daily for oral as needed solution (6 for sources.) Constipation -1ST Line Completed/Discontinued Medications Medication Ingredient Drug Dose Dates Status Sig Sig Care Class(es) (Normalized) (Original) Provid er acetaminoph Acetaminoph Opioid 03-20-20 Complete no Oxycodon e no en 325 mg / en / Agonist 19 - d information Hcl/Acetami n name oxyCODONE oxyCODONE 11-12-19 ophen hydrochlori 20 Discontinued de 5 mg 1 ORAL Every oral tablet 4HRS as (5 needed for sources.) Pain-Severe March 20, 2019 11:24am November 12, 2019 acyclovir acyclovir Herpesvirus 800 mg 04-04-20 Suspende no Acyclovir no 800 mg oral Translation Nucleoside 18 d information 800 MG name tablet (3 s: [ Analog DNA Orally Five sources.) Acyclovir Polymerase times a day 800 MG] Inhibitor, 1 tablet 31 Herpes Mar, 2018 10 Simplex day(s) Virus Not-Taking Nucleoside Analog DNA Polymerase Inhibitor, Herpes Zoster Virus Nucleoside Analog DNA Polymerase Inhibitor no Albuterol no 1 Complete take 1 Albuterol (no information Sulfate information puff(s d puff(s) by Sulfate phone) (5 (Proventil ) inhalation (Proventil sources.) Hfa) 6.7 Gm every four Hfa) 6.7 Gm Hfa.aer.ad hours as Hfa.aer.ad 2 needed Puff RESPIRATORY (INHALATION) Every 4HRS as needed for Shortness Of Breath Azithromyci azithromyci Macrolide 04-06-20 Complete take 2 Azith romycin no n (10 n Antimicrobi 18 - d tablets by Discontinued name sources.) al 03-14-20 mouth once 250 ORAL As 19 daily, then Directed 6 take 05 April tablet by 2017 mouth, then 2:23pm take 05 March tablet by 2018 mouth once TAKE 2 daily TABLETS ON DAY ONE THEN TAKE 1 TABLET DAILY FOR FOUR MORE DAYS 04-06-2018 Completed take 2 Azithrom no name - tablet ycin 03-14-2019 s by Disconti mouth nued 250 once ORAL As daily, Directed then 6 take 05 April tablet , 2017 mouth, 2:23pm then March take 2018 by TAKE 2 mouth TABLETS once ON DAY daily ONE THEN TAKE 1 TABLET DAILY FOR FOUR MORE DAYS 500 mg 04-06-2018 Completed take 2 Azithrom Cam T tablet ycin 250 Brueggem s by Mg srikanth (no mouth Tablet phone) once 250 Mg daily, ORAL As then Directed take 1 6 Tab tablet TAKE 2 by TABLETS mouth, ON DAY then ONE THEN take 1 TAKE 1 tablet TABLET by DAILY mouth FOR FOUR once MORE daily DAYS 04/06/18 no Budesonide/ no 07-12-19 Complete no Budesonide/F no information Formoterol information 17 d information orm oterol name (8 Fumarate Fumarate sources.) Discontinued 2 RESPIRATORY (INHALATION) Twice A Day July 12, 2016 no no Budesoni no name information inform de/Formo ation terol Fumarate Active 2 RESPIRAT ORY (INHALAT ION) Twice A Day 07-12-2016 Completed no Budesoni no name inform de/Formo ation terol Fumarate Disconti nued 2 RESPIRAT ORY (INHALAT ION) Twice A Day July 12, 2016 cefdinir cefdinir Cephalospor 300 mg 04-03-20 Complete no Ce fdinir no 300 mg oral in 18 - d information Discontinued name capsule (11 Antibacteri 03-14-20 300 ORAL sources.) al 19 Twice A Day 10 5 April 03, 2018 3:07pm March 14, 2019 no Melatonin no 11-12-19 Complete no Melatonin no information information 20 d information Disconti nued name (6 5 ORAL sources.) Bedtime November 12, 2019 no no Melatoni no name information inform n Active ation 5 ORAL Bedtime no naproxen Nonsteroida Suspende no Naproxen no information l d information Orally 2 name (4 Anti-inflam times a day sources.) matory Drug 12h Not-Taking Active no Naproxen no name inform Orally 2 ation times a day 12h Active ondansetron ondansetron Serotonin-3 4 mg 04-06-20 Complete no Ondansetron no 4 mg Receptor 18 - d information Discontinued n jimena disintegrat Antagonist 03-14-20 4 SUBLINGUAL ing oral 19 Every 4HRS tablet (10 as needed sources.) for Nausea/Vomit ing-1ST Line April 06, 2018 2:46pm March 14, 2019 Problems Active Problems Problem Normalized Date Last Normalized Normalized Provider Fa cility Classification Problem(s) Recorded Problem Problem Sta tus Duration Allergic Allergy status Episodic Active CAM Not Anna ilable reactions (14 to penicillin RACHEL , (06756) sources.) Translations: [ ALLERGY STATUS TO OTHER ANTIBIOTIC AGENT, ALLERGY STATUS TO PENICILLIN, - Irritant contact dermatitis, unspecified trigger L24.9] Deficiency and Anemia, Episodic Active DORIS KINJAL Comm unity other anemia unspecified 21566 (Other Health Center (2 sources.) Translations: Phone: of [facility] [ - Anemia, ) [place] ([address]) unspecified D64.9] Aortic; Aneurysm of Chronic Active EMELIA BAIMA Not Av ailable peripheral; artery of (84265) and visceral lower artery extremity aneurysms (8 sources.) Other and Benign Episodic Active no name no informatio n unspecified lipomatous benign neoplasm of neoplasm (4 skin and sources.) subcutaneous tissue of trunk Other Bicipital Episodic Active MAN LEO [facility] Via connective tendinitis, MD [place] tissue disease unspecified Hospital - (5 sources.) shoulder [place] ([address]) Other Body mass Chronic Active DYLAN PRADHAN , Not Avai lable nutritional; index (BMI) (57170) endocrine; and 35.0-35.9, metabolic adult disorders (20 sources.) Other Bursitis of Episodic Active MAN LEO [facility] V ia connective right shoulder , MD [place] tissue disease Hospital - (3 sources.) [place] ([address]) Residual Chronic pain Chronic Active DORIS KINJAL Commu nity codes; Translations: [address] Health Center unclassified [ Other of [facility] (7 sources.) chronic pain] [place] ([address]) Residual Chronic pain Episodic Active DORIS KINJAL Commu nity codes; Translations: 93982 ([facility] unclassified [ Other Phone: of [facility] (1 source.) chronic pain] ) [place] ( ) Other upper Chronic Chronic Active MAN JOHNSON Not Anna ilable respiratory pharyngitis , (10138) disease (3 sources.) NEGATED Complication Episodic Active no name no inform ation no of unspecified information (3 artery sources.) following a procedure, not elsewhere classified, initial encounter Other Constipation Episodic Active DORIS KINJAL Commu nity gastrointestin Translations: 19200 ([facility] al disorders [ Phone: of [facility] (2 sources.) Constipation, ) [place] ( ) unspecified constipation type] Other Constipation, Episodic Active DORIS KINJAL Comm unity gastrointestin unspecified 00793 ([facility] al disorders Translations: Phone: of [facility] (2 sources.) [ - ) [place] () Constipation, unspecified constipation type K59.00] Superficial Contusion of Episodic Active DORIS KINJAL Com munity injury; [facility] [address] [facility] (18 pelvis, of [place] sources[place] initial [place] () encounter Translations: [ - Lumbar contusion, initial encounter S30.0XXA] Residual Dependence on Chronic Active MAN LEO [facility] Via codes; other enabling , MD [facility] unclassified machines and Hospital - (3 sources.) devices [place] ([address]) Complications Disruption of no information Active MAN NA GLE Not Available of surgical external , (29064) procedures or operation medical care (surgical) (8 sources.) wound, not elsewhere classified, initial encounter Translations: [ POSTPROC SEROMA OF SKIN, SUBCU FOLLOWING] Conditions Dizziness and Episodic Active ALI JOE , Not Available associated giddiness MD PIERRE (09727) with dizziness or vertigo (8 sources.) Other Dysphagia, Episodic Active MAN JOHNSON Not Anna ilable gastrointestin unspecified , (92981) al disorders (3 sources.) Other lower Dyspnea Episodic Active DORIS KINJAL Via Chr isti respiratory Translations: 88776 Hospital disease (11 [ Shortness of [place] sources.) breath] (01225) Other Encounter for Episodic Active TAKAAKI KIDO , Not Available screening for screening for MD (46574) suspected malignant conditions neoplasm of (not mental colon disorders or Translations: infectious [ ENCNTR disease) (13 SCREEN FOR sources.) MALIGNANT NEOPLASM OF ] Other skin Eruption Episodic Active DORIS KINJAL [facility] disorders (6 [address]244 [facility] sources.) Hospital (11626) Essential Essential Chronic Active TAKAAKI KIDO , Not Anna ilable hypertension (primary) (53924) (26 sources.) hypertension External cause Fall (on) Episodic Active DORIS KINJAL Com munity codes: Fall (1 (from) other 12432 (Other Health Center source.) stairs and Phone: of [facility], initial ) [place] ([address]) encounter Translations: [ - Fall (on) (from) other stairs and steps, initial encounter W10.8XXA] Residual Family history Episodic Active MAN LEO [facility] Via codes; of diabetes , [place] unclassified mellitus Hospital - (3 sources.) [place] ([address]) Residual Family history Episodic Active ALI JOE , Not Available codes; of ischemic MD PIERRE (78960) unclassified heart disease (11 sources.) and other diseases of the circulatory system Translations: [ TOBACCO USE] Residual Family history Episodic Active MAN LEO [facility] Via codes; of malignant , MD [place] unclassified neoplasm of Hospital - (3 sources.) breast [place] ([address]) Other lower Hypoxemia 11-12-2019 - Episodic Active MAGDA DIAZ , Not Available respiratory [facility] (70781) disease (23 sources.) Unclassified 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 Via other anemia deficiency DO Danna (4 sources.) anemia, Hospital - unspecified [place] ([address]82) Diseases of Lesion of Episodic Active DORISGEORGINA LAYTON Via ris mouth; tongue [id number] [place] [address] excluding Translations: [place] dental (20 [ UNSPECIFIED (63644) sources.) LESIONS OF ORAL MUCOSA, LEUKOPLAKIA OF ORAL MUCOSA, INCLUDING TO, Lesion of tongue, Leukoplakia of tongue] Other tank terminal gauger Episodic Active CAM Not Availabl e aftercare (9 (current) use BRUBRISEIDAMANN , (08699) sources.) of aspirin MD Other tank terminal gauger Episodic Active CAM Not Availabl e aftercare (6 (current) use BRUEGGEMANN , (86973) sources.) of inhaled MD steroids Other [facility] Episodic Active no name no informati on aftercare (4 (current) use sources.) of systemic steroids Other Morbid Chronic Active MAN ALVARES Not Avail able nutritional; (severe) , (21361) endocrine; and obesity due to metabolic excess disorders (22 calories sources.) Nausea and Nausea Episodic Active CAM Not Availabl e vomiting (13 Translations: RACHEL , (83244) sources.) [ NAUSEA, Nausea] Chronic ulcer Non-pressure Chronic Active MAN ALVARES N ot Available of skin (22 chronic ulcer , (60616) sources.) of skin of other sites with fat layer exposed Other Obesity, Chronic Active JT FERNANDEZ , Not Avai lable nutritional; unspecified DO (95156) endocrine; and metabolic disorders (12 sources.) Occlusion or Occlusion and Chronic Active EMELIA GLOVER N ot Available 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 (9 carotid sources.) arteries Other Osteophyte, Chronic Active DORIS KINJAL Not Av ailable non-traumatic vertebrae , (71183) joint disorders (3 sources.) Other ear and Otalgia Episodic Active DORIS KINJAL [facility] Via sense organ [address]398 [facility] disorders (6 Hospital sources.) (29336) Other ear and Otalgia, left Episodic Active CAM Not Available sense organ ear BRUEGGEMANN , (54391) disorders (6 MD sources.) Other lower Other forms of Episodic Active ALI JOE , No t Available respiratory dyspnea MD FACC (72258) disease (8 sources.) Other Other long Episodic Active ALI JOE , Not Avai lable aftercare (21 term (current) MD FACC (11405) sources.) drug therapy Other Other obesity Chronic Active ALI JOE , Not A vailable nutritional; due to excess FACC (61938) endocrine; and calories metabolic disorders (10 sources.) Conduction Other right Chronic Active ALI JOE , Not Av ailable disorders (8 bundle-branch MD FAC (88798) sources.) block Other upper Other seasonal 11-12-2019 - Chronic Active SEA INE Not Available respiratory allergic NATHANAEL (40770) disease (20 rhinitis sources.) Other Other Episodic Active DORIS KINJAL Community connective specified soft [address] [facility] tissue disease tissue of [facility] (4 sources.) disorders [place] ([address]17) Translations: [ - Swelling of right hand M79.89] Otitis media Otitis media Episodic Active DORIS KINJAL Vi a [facility] and related Translations: 94748 Hospital conditions (20 [ OTITIS [place] sources.) MEDIA, (72273) UNSPECIFIED, LEFT EAR, Otitis media] Other Pain in right Episodic Active DORIS KINJAL Comm unity non-traumatic elbow 113[address] [facility] joint Translations: of [facility] disorders (18 [ - Elbow [place] (26778) sources.) pain, right M25.521] Other Pain in right Episodic Active DORIS KINJAL Comm unity connective hand [address] [facility] tissue disease Translations: of [facility] (4 sources.) [ - Right hand [place] (95481) pain M79.641] Other Pain in right Episodic Active DORIS KINJAL Comm unity non-traumatic hip 61742 [facility] joint Translations: of [facility] disorders (8 [ - Right hip [place] (91895) sources.) pain M25.551] Other [facility] 693[address] [facility] joint wrist of [place] disorders (3 Translations: [place] (70203) sources.) [ - Wrist pain M25.539] Peripheral and Peripheral Chronic Active ALI JOE , Not Available visceral vascular MD PIERRE (25546) atherosclerosi disease, s (7 sources.) unspecified Other Personal Episodic Active ALI JOE , Not Availa ble circulatory history of MD PIERRE (07787) disease (7 other diseases sources.) of the circulatory system Other Personal Episodic Active CAM Not Available gastrointestin history of RACHEL , (01523) al disorders other diseases (6 sources.) of the digestive system Other Personal Episodic Active TAKAAKI KIDO , Not Avai lable circulatory history of (64836) disease (23 transient sources.) ischemic attack (TIA), and cerebral infarction without residual deficits Calculus of Personal Episodic Active CAM Not Availab le urinary tract history of BRUBRISEIDAMANN , (88710) (3 sources.) urinary MD calculi Other lower Pulmonary Chronic Active no name no informa tion respiratory fibrosis, disease (4 unspecified sources.) Other skin Rash and other Episodic Active CAM Not Av ailable disorders (3 nonspecific BRUEGGEMANN , (72398) sources.) skin eruption Abdominal pain Right upper Episodic Active LARRY HUMZA Not Available (21 sources.) quadrant pain (28106) Residual Sleep apnea, Chronic Active MAN LEO [facility] Via codes; unspecified , [place] unclassified Hospital - (3 sources.) [place] (16155) Residual Sleep related 11-12-2019 - Chronic Active JOHN Not Available codes; hypoventilatio NATHANAEL (10429) unclassified n in (20 sources.) conditions classified elsewhere Spondylosis; Spinal no information Active DORIS KINJAL N ot Available intervertebral stenosis, MD (64478) disc lumbar region disorders; without other back neurogenic problems (20 claudication sources.) Translations: [ OTHER SPONDYLOSIS WITH RADICULOPATHY, CEDRICK, CONN TISS AND DISC STENOS OF INTVRT FORA, CERVICAL SPONDYLOSIS, SPINAL STENOSIS, LUMBAR REG, W/OUT NEURO] Other acquired Spondylolisthe Episodic Active UNLISTED OTHE R [facility] Via deformities (2 sis, cervical [place] sources.) [facility] Hospital - [place] (53527) Other acquired Stenosis of Episodic Active DORIS KINJAL C ommunity deformities (4 intervertebral 24731 [facility] sources.) foramina of [facility] Translations: [place] (90999) [ Neuroforaminal stenosis of lumbosacral spine] Sprains and Superior Episodic Active MAN LEO [facility] Vi a strains (6 glenoid labrum , MD [place] sources.) lesion of Hospital - right [place] shoulder, (33117) initial encounter Translations: [ SPRAIN OF RIGHT ROTATOR CUFF CAPSULE, [place]] Residual Tobacco user Episodic Active DORIS KINJAL Commu nity codes; Translations: 04833 (Other Health Center unclassified [ Tobacco use] Phone: of [facility] (1 source.) ) [place] ([address]10) Other Trigger Episodic Active DORIS KINJAL Community connective finger, right [address] Health Center tissue disease middle finger of [facility] (10 sources.) Translations: [place] (48363) [ - Trigger middle finger of right hand M65.331] Diabetes Type 2 Chronic Active TAKAAKI KIDO , Not Avai lable mellitus diabetes (70111) without mellitus complication without (20 sources.) complications Translations: [ Type 2 diabetes mellitus with other specified complication, without long-term current use of insulin, Type 2 diabetes mellitus with other specified complication, without long-term current use of insulin, Type 2 diabetes mellitus without complication, without long-term current use of insulin, Type 2 diabetes mellitus without complication, without long-term current use of insulin] Asthma (21 Unspecified 11-12-2019 - Chronic Active JT ROBERTSON EY , Not Available sources.) asthma, DO (42580) uncomplicated Viral Zoster without Episodic Active [facility] Communi ty infection (11 complications [facility] sources.) Translations: of [facility] [ - Herpes [place] (16281) zoster without complication B02.9] Past or Other Problems Problem Normalized Date Last Normalized Normalized Provider Fa cility Classification Problem(s) Recorded Problem Problem Sta tus Duration Other and Benign Episodic Completed TAKAAKI KIDO , Not Avai lable unspecified 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, neoplasm (3 unspecified sources.) 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 EDIN No t Available aftercare (3 (current) use (29857) sources.) of oral hypoglycemic drugs Mood disorders Major no information no information CAM Not Available (10 sources.) depressive RACHEL , (84883) disorder, single episode, unspecified Otitis media Otitis media no information no information DORIS BELTRANOCH Via [facility] and related and related [facility] conditions (4 conditions [place] sources.) (22275) NEGATED Postprocedural no information no information no name no information no seroma of skin information (2 and sources.) subcutaneous tissue following other procedure Disorders of Pure no information no information TAKAAKI KID O , Not Available lipid hypercholester (89739) metabolism (21 olemia, sources.) unspecified Suicide and Toxic effect no information no information MAN ALVARES Not Available intentional of tobacco , (56732) self-inflicted cigarettes, injury (21 intentional sources.) self-harm, initial encounter Diabetes Type 2 no information no information no name no information mellitus with diabetes complications mellitus with (4 sources.) diabetic autonomic (poly)neuropat hy External Unspecified no information no information DORIS BRAGG Community Injury - Fall fall, initial [id number] [place] [address] Center (20 sources.) encounter of [facility] Translations: [place] (90274) [ - Fall (on) (from) other stairs and steps, initial encounter W10.8XXA] Procedures Procedure Normalized Procedure Procedure Result Performer Facility Date 11-30-2017 Collection venous no information no name [facility] blood venipuncture [facility] (06550) 04-06-2018 CT of soft tissues of no information LALITHA Monge Via [facility] neck with contrast [place] (75855) 04-19-2017 Diagnostic radiologic no information DORIS [facility] examination [facility] 04-19-2017 [place] ([id number]) - 04-19-2017 01-05-2015 Diagnostic radiologic no information [facility] examination [facility] 01-05-2015 [place] ([id number]) - 01-05-2015 03-14-2019 Electrocardiographic no information no name As cension Via [facility] (89726) 11-30-2017 LAB NOT BILLED BY no information no name [facility] (68485) 04-04-2018 Methylprednisolone no information no name [facility] injection [facility] (77087) 05-23-2018 MRI of joint of upper no information ANUP ARREOLA Saleem MCNAMARA Faulk Via [facility] (04291) 03-21-2018 MRI of lumbar spine no information DORIS LAYTON Via [facility] without contrast [place] (72118) 03-12-2018 Psychotherapy no information no name [facility] w/patient 30 minutes [facility] (11081) 02-06-2018 Psychotherapy no information no name [facility] w/patient 30 minutes [facility] (73992) 01-10-2018 Psychotherapy no information no name [facility] w/patient 30 minutes [facility] (49235) 12-12-2017 Psychotherapy no information no name [facility] w/patient 45 minutes [facility] (12859) 11-30-2017 Radiologic examination no information no name [facility] knee 3 views [facility] (93388) 04-04-2018 Therapeutic no information no name [facility] ealth prophylactic/dx [facility] subq/im [place] (51095) Immunizations Normalized Immunization Date Notes Care Provider Facili ty Immunization SOLUMEDROL (UP TO 04-04-2018 no information ARACELY BURGER [facility] 125 MG) 73562 [facility] (42369) no information 03-20-2019 no information MAN LEO [address] Fa[address] [facility] (03407) no information 03-14-2019 no information DORIS LAYTON [address] Faulk [address] [facility] (64059) Results Test Name Value Interpretation Reference Range Date Time Fa cility (Normalized) (Normalized) (Medline Reference) laboratory on 2019-11-14 Coronavirus Ab Negative (no code) 11-14-2019 PENDING LOC ATION Qn (S) 04:11-0400 S (00331) not yet categorized on 2019-10-25 Control Positive (no code) [facility] (79010) Exp Date 03/2021 (no code) [facility] (62894) Lot # [id number] (no code) [facility] (08697) laboratory on 2019-10-11 Ferritin 11 ng/mL (L) [facility] [Mass/Vol] [facility] (60045) Iron [Mass/Vol] 94 ug/dL (N) 60 - 170 ug/dL [facility] (70542) Iron binding 453 (H) [facility] capacity [facility] [Mass/Vol] [facility] (86956) Iron saturation 21 (N) [facility] th [Mass fraction] [facility] (27461) Pathologist no information (no code) [facility] review [facility] comment (Bld) (38225) [Interp] Reticulocytes 57.72 10*3/uL (N) [facility] h (Bld) [#/Vol] [facility] (49301) Reticulocytes/10 1.2 % (N) 0.5 - 1.5 % [facility] 0 RBC (Bld) [facility] (00626) laboratory on 2019-10-10 Albumin 4.2 g/dL (N) 3.4 - 5.4 g/dL [facility] [Mass/Vol] [facility] (64922) Albumin/Globulin 1.9 {ratio} (N) 1 - 2.5 {ratio} [facility] Health [Mass ratio] [facility] (28410) ALP [Catalytic 53 U/L (N) 44 - 147 U/L [facility] Health activity/Vol] [facility] (68274) ALT [Catalytic 27 U/L (N) 4 - 40 U/L [facility] ealth activity/Vol] [facility] (34749) AST [Catalytic 20 U/L (N) 10 - 34 U/L [facility] Health activity/Vol] [facility] (54716) Basophils (Bld) 0.082 10*3/uL (N) 0 - 0.3 10*3/uL [facility] [#/Vol] [facility] (30484) Basophils/100 0.8 % (N) 0.5 - 1 % Community [facility] alth WBC (Bld) [facility] (94856) Bilirubin 0.4 mg/dL (N) 0.1 - 1.2 mg/dL [facility] Health [Mass/Vol] [facility] (09407) Calcium 9.1 mg/dL (N) 8.5 - 10.2 mg/dL [facility] [Mass/Vol] [facility] (03571) Chloride 107 mmol/L (N) 95 - 106 mmol/L [facility] Health [Moles/Vol] [facility] (38338) Cholesterol 107 mg/dL (N) 180 - 200 mg/dL [facility] [Mass/Vol] [facility] (65286) Cholesterol in 42 mg/dL (N) [facility] HDL [Mass/Vol] [facility] (17738) Cholesterol in 44 mg/dL (N) 0 - 100 mg/dL [facility] LDL [Mass/Vol] [facility] (66549) Cholesterol non 65 mg/dL (N) [facility] HDL [Mass/Vol] [facility] (57771) Cholesterol.tota 2.5 {ratio} (N) [facility] lt l/Cholesterol in [facility] HDL [Mass ratio] [facility] (14739) CO2 [Moles/Vol] 26 mmol/L (N) 23 - 29 mmol/L [facility] (63700) Creatinine 0.95 mg/dL (N) [facility] [Mass/Vol] [facility] (81117) Eosinophils 0.258 10*3/uL (N) 0.05 - 0.5 Community [facility] alth (Bld) [#/Vol] 10*3/uL [facility] (17220) Eosinophils/100 2.5 % (N) 1 - 4 % [facility] Health WBC (Bld) [facility] (55546) Erythrocyte 13.9 % (N) 11.6 - 14.6 % Community [facility] ealth distribution [facility] width (RBC) [facility] [Ratio] (95704) GFR/1.73 sq M 102 (N) 90 - 120 Community [facility] alth predicted among mL/min/{1.73_m2} mL/min/{1.73_m2} [facility] [place] MDRD [facility] (S/P/Bld) [Vol (22576) rate/Area] GFR/1.73 sq 88 (N) 90 - 120 [facility] M.predicted MDRD mL/min/{1.73_m2} mL/min/{1.73_m2} [facility] (S/P/Bld) [Vol [facility] rate/Area] (07529) Globulin (S) 2.2 g/dL (N) 2 - 3.5 g/dL [facility] ealth [Mass/Vol] [facility] (49883) Glucose 133 mg/dL (H) 60 - 125 mg/dL [facility] [Mass/Vol] [facility] (04957) Hematocrit (Bld) 39.3 % (N) 36.1 - 50.3 % [facility] [Volume [facility] (57555) Hemoglobin (Bld) 12.4 g/dL (L) 12.1 - 17.2 g/dL [facility] [Mass/Vol] [facility] (41599) Lymphocytes 2.73 10*3/uL (N) 0.9 - 2.9 [facility] lth (Bld) [#/Vol] 10*3/uL [facility] (94864) Lymphocytes/100 26.5 % (N) 20 - 40 % [facility] WBC (Bld) [facility] (70696) MCH (RBC) 26.7 pg (L) 27 - 31 pg [facility] [Entitic mass] [facility] (91894) MCHC (RBC) 31.6 g/dL (L) 32 - 36 g/dL [facility] [Mass/Vol] [facility] (26459) MCV (RBC) 84.5 fL (N) 80 - 100 fL [facility] lt [Entitic vol] [facility] (38134) Monocytes (Bld) 0.958 10*3/uL (H) 0.3 - 0.9 [facility] [#/Vol] 10*3/uL [facility] (80230) Monocytes/100 9.3 % (N) 2 - 8 % [facility] He alth WBC (Bld) [facility] (38346) Neutrophils 6.273 10*3/uL (N) 1.7 - 7 10*3/uL [facility] Health (Bld) [#/Vol] [facility] (81898) Neutrophils/100 60.9 % (N) 40 - 60 % [facility] WBC (Bld) [facility] (85591) Platelet mean 10.4 fL (N) 7.2 - 11.7 fL [facility] Health volume (Bld) [facility] [Entitic vol] [facility] (28262) Platelets (Bld) 470 10*3/uL (H) 150 - 450 [facility] [#/Vol] 10*3/uL [facility] (45212) Potassium 4.7 mmol/L (N) 3.7 - 5.2 mmol/L [facility] [Moles/Vol] [facility] (28726) Protein 6.4 g/dL (N) 6.4 - 8.3 g/dL [facility] [Mass/Vol] [facility] (30658) RBC (Bld) 4.65 10*6/uL (N) 4.2 - 6.1 [facility] [#/Vol] 10*6/uL [facility] (54376) Sodium 142 mmol/L (N) 135 - 145 mmol/L [facility] [Moles/Vol] [facility] (85228) Triglyceride 133 mg/dL (N) 0 - 150 mg/dL [facility] [Mass/Vol] [facility] (99473) Urea nitrogen 12 mg/dL (N) 7 - 20 mg/dL [facility] [Mass/Vol] [facility] (05754) Urea NOT APPLICABLE (no code) [facility] Healt h nitrogen/[facility] [Mass ratio] [facility] (04458) WBC (Bld) 10.3 10*3/uL (N) 3.5 - 10.5 [facility] Hea lth [#/Vol] 10*3/uL [facility] (84540) not yet categorized on 2019-10-08 Exp date 07/26 (no code) [facility] (13165) Lot 6.9~7.1~0610 (no code) [facility] (66916) not yet categorized on 2019-07-02 Exp date 01/23 (no code) [facility] (96642) Lot 7.1~5.9~0552 (no code) [facility] (66896) methicillin resistant staphylococcus aureus (mrsa) screening culture on 2019-03-14 MRSA isol Org MRSA not (no code) 03-14-2019 Faulk Vi a specific cx Ql isolated 13:55-0400 [facility] ([facility] spec) (86205) not yet categorized on 2018-12-20 Exp date 08/2020 (no code) [facility] (66017) Lot 5.9~6.2~0993 (no code) [facility] (07465) laboratory on 2018-12-13 Albumin 4.1 g/dL (N) 3.4 - 5.4 g/dL [facility] Health [Mass/Vol] [facility] (29720) Albumin/Globulin 1.8 {ratio} (N) 1 - 2.5 {ratio} [facility] [Mass ratio] [facility] (34055) ALP [Catalytic 50 U/L (N) 44 - 147 U/L [facility] Health activity/Vol] [facility] (02994) ALT [Catalytic 31 U/L (N) 4 - 40 U/L [facility] ealth activity/Vol] [facility] (85354) AST [Catalytic 28 U/L (N) 10 - 34 U/L [facility] Health activity/Vol] [facility] (56069) Basophils (Bld) 0.058 10*3/uL (N) 0 - 0.3 10*3/uL [facility] [#/Vol] [facility] (92355) Basophils/100 0.6 % (N) 0.5 - 1 % [facility] WBC (Bld) [facility] (86567) Bilirubin 0.2 mg/dL (N) 0.1 - 1.2 mg/dL [facility] Health [Mass/Vol] [facility] (41921) Calcium 9.6 mg/dL (N) 8.5 - 10.2 mg/dL [facility] [Mass/Vol] [facility] (93451) Chloride 107 mmol/L (N) 95 - 106 mmol/L [facility] Health [Moles/Vol] [facility] (72792) Cholesterol 112 mg/dL (N) 180 - 200 mg/dL [facility] [Mass/Vol] [facility] (08156) Cholesterol in 35 mg/dL (L) [facility] HDL [Mass/Vol] [facility] (38466) Cholesterol in 53 mg/dL (N) 0 - 100 mg/dL [facility] LDL [Mass/Vol] [facility] (77247) Cholesterol non 77 mg/dL (N) [facility] HDL [Mass/Vol] [facility] (65434) Cholesterol.tota 3.2 {ratio} (N) [facility]/Cholesterol in [facility] HDL [Mass ratio] [facility] (84730) CO2 [Moles/Vol] 27 mmol/L (N) 23 - 29 mmol/L [facility] (67399) Creatinine 1.06 mg/dL (N) [facility] h [Mass/Vol] [facility] (25030) Eosinophils 0.194 10*3/uL (N) 0.05 - 0.5 [facility]th (Bld) [#/Vol] 10*3/uL [facility] (28047) Eosinophils/100 2.0 % (N) 1 - 4 % [facility] Health WBC (Bld) [facility] (78741) Erythrocyte 13.2 % (N) 11.6 - 14.6 % [facility] ealth distribution [facility] width (RBC) [facility] [Ratio] (06798) GFR/1.73 sq M 90 (N) 90 - 120 [facility] predicted among mL/min/{1.73_m2} mL/min/{1.73_m2} [facility] [place] MDRD [facility] (S/P/Bld) [Vol (97201) rate/Area] GFR/1.73 sq 78 (N) 90 - 120 [facility] th M.predicted MDRD mL/min/{1.73_m2} mL/min/{1.73_m2} [facility] (S/P/Bld) [Vol [facility] rate/Area] (81691) Globulin (S) 2.3 g/dL (N) 2 - 3.5 g/dL Community ealth [Mass/Vol] [facility] (44296) Glucose 133 mg/dL (H) 60 - 125 mg/dL [facility] [Mass/Vol] [facility] (64389) Hematocrit (Bld) 41.7 % (N) 36.1 - 50.3 % [facility] [Volume [facility]] [facility] (78475) Hemoglobin (Bld) 13.1 g/dL (L) 12.1 - 17.2 g/dL [facility] [Mass/Vol] [facility] (71882) Lymphocytes 2.357 10*3/uL (N) 0.9 - 2.9 [facility]th (Bld) [#/Vol] 10*3/uL [facility] (80669) Lymphocytes/100 24.3 % (N) 20 - 40 % [facility] WBC (Bld) [facility] (10299) MCH (RBC) 28.1 pg (N) 27 - 31 pg [facility] th [Entitic mass] [facility] (59708) MCHC (RBC) 31.4 g/dL (L) 32 - 36 g/dL [facility] [Mass/Vol] [facility] (20208) MCV (RBC) 89.5 fL (N) 80 - 100 fL [facility] Hea lt [Entitic vol] [facility] (95259) Monocytes (Bld) 0.776 10*3/uL (N) 0.3 - 0.9 [facility] [#/Vol] 10*3/uL [facility] (22407) Monocytes/100 8.0 % (N) 2 - 8 % [facility] He alth WBC (Bld) [facility] (11032) Neutrophils 6.315 10*3/uL (N) 1.7 - 7 10*3/uL [facility] Health (Bld) [#/Vol] [facility] (89781) Neutrophils/100 65.1 % (N) 40 - 60 % [facility] WBC (Bld) [facility] (04230) Platelet mean 10.4 fL (N) 7.2 - 11.7 fL [facility] Health volume (Bld) [facility] [Entitic vol] [facility] (29410) Platelets (Bld) 432 10*3/uL (H) 150 - 450 [facility] Health [#/Vol] 10*3/uL [facility] (98626) Potassium 4.7 mmol/L (N) 3.7 - 5.2 mmol/L [facility] [Moles/Vol] [facility] (53135) Protein 6.4 g/dL (N) 6.4 - 8.3 g/dL [facility] [Mass/Vol] [facility] (66716) RBC (Bld) 4.66 10*6/uL (N) 4.2 - 6.1 [facility] lth [#/Vol] 10*6/uL [facility] (78957) Sodium 143 mmol/L (N) 135 - 145 mmol/L [facility] [Moles/Vol] [facility] (65373) Triglyceride 160 mg/dL (H) 0 - 150 mg/dL [facility] [Mass/Vol] [facility] (83048) Urea nitrogen 11 mg/dL (N) 7 - 20 mg/dL [facility] [Mass/Vol] [facility] (82663) Urea NOT APPLICABLE (no code) [facility] [Mass ratio] [facility] (48107) WBC (Bld) 9.7 10*3/uL (N) 3.5 - 10.5 [facility] Heal th [#/Vol] 10*3/uL [facility] (14997) other on 2018-09-18 Exp date 03/24 (no code) [facility] (20618) Lot 6.2~7.5~0941 (no code) [facility] (88111) other on 2018-09-11 Erythrocyte 12.6 % (N) 11.6 - 14.6 % [facility] H ealth distribution [facility] width (RBC) [facility] [Ratio] (75431) MCHC (RBC) 33.5 g/dL (N) 32 - 36 g/dL [facility] alth [Mass/Vol] [facility] (44478) Platelet mean 10.3 fL (N) 7.2 - 11.7 fL [facility] volume (Bld) [facility] [Entitic vol] [facility] (94840) hematology on 2018-09-11 Basophils (Bld) 0.066 10*3/uL (N) 0 - 0.3 10*3/uL [facility] [#/Vol] [facility] (33180) Basophils/100 0.6 % (N) 0.5 - 1 % [facility] alth WBC (Bld) [facility] (62256) Eosinophils 0.231 10*3/uL (N) 0.05 - 0.5 [facility] alth (Bld) [#/Vol] 10*3/uL [facility] (75075) Eosinophils/100 2.1 % (N) 1 - 4 % [facility] WBC (Bld) [facility] (98494) Hematocrit (Bld) 41.2 % (N) 36.1 - 50.3 % [facility] [Volume [facility]] [facility] (38185) Hemoglobin (Bld) 13.8 g/dL (N) 12.1 - 17.2 g/dL [facility] [Mass/Vol] [facility] (41257) Lymphocytes 3.575 10*3/uL (N) 0.9 - 2.9 [facility] alth (Bld) [#/Vol] 10*3/uL [facility] (31895) Lymphocytes/100 32.5 % (N) 20 - 40 % [facility] WBC (Bld) [facility] (73329) MCH (RBC) 29.4 pg (N) 27 - 31 pg [facility] th [Entitic mass] [facility] (26914) MCV (RBC) 87.8 fL (N) 80 - 100 fL [facility] lt [Entitic vol] [facility] (53696) Monocytes (Bld) 0.957 10*3/uL (H) 0.3 - 0.9 [facility] [#/Vol] 10*3/uL [facility] (19086) Monocytes/100 8.7 % (N) 2 - 8 % [facility] WBC (Bld) [facility] (22553) Neutrophils 6.171 10*3/uL (N) 1.7 - 7 10*3/uL [facility] (Bld) [#/Vol] [facility] (57674) Neutrophils/100 56.1 % (N) 40 - 60 % [facility] WBC (Bld) [facility] (01132) Platelets (Bld) 421 10*3/uL (H) 150 - 450 [facility] [#/Vol] 10*3/uL [facility] (37639) RBC (Bld) 4.69 10*6/uL (N) 4.2 - 6.1 [facility] lt [#/Vol] 10*6/uL [facility] (64409) WBC (Bld) 11.0 10*3/uL (H) 3.5 - 10.5 [facility] lt [#/Vol] 10*3/uL [facility] (88383) venous blood hemoglobin measurement (mass/volume) on 2018-04-06 Hemoglobin mass 14.8 g/dL (no code) 12.1 - 17.2 g/dL Via [facility] (Bld) [facility] (94323) serum or plasma urea nitrogen/creatin ine mass ratio on 2018-04-06 Urea 16 mg/mg (no code) 6 - 22 mg/mg [facility] nitrogen/[facility]in [facility] ine mass ratio [place] (20492) serum or plasma urea nitrogen measurement (mass/volume) on 2018-04-06 Urea nitrogen 20 mg/dL (H) 7 - 20 mg/dL Via [facility] (23123) serum or plasma total bilirubin measurement (mass/volume) on 2018-04-06 Bilirubin mass 0.6 mg/dL (no code) 0.1 - 1.2 mg/dL Via [facility] (52892) serum or plasma sodium measurement (moles/volume) on 2018-04-06 Sodium molar 138 mmol/L (no code) 135 - 145 mmol/L Via [facility] (60389) serum or plasma protein measurement (mass/volume) on 2018-04-06 Protein mass 7.8 g/dL (no code) 6.4 - 8.3 g/dL Via [facility] (72216) serum or plasma potassium measurement (moles/volume) on 2018-04-06 Potassium molar 3.7 mmol/L (no code) 3.7 - 5.2 mmol/L Via [facility] (95066) serum or plasma glucose measurement (mass/volume) on 2018-04-06 Glucose mass 120 mg/dL (H) 60 - 125 mg/dL [facility] (77086) serum or plasma creatinine measurement with calculation of estimated glomerular filtration rate on 2018-04-06 GFR/1.73 sq M 58 (no code) 90 - 120 Via [facility] among mL/min/{1.73_m2} mL/min/{1.73_m2} [facility] non-blacks MDRD [place] vol rate/area () (S/P/Bld) serum or plasma creatinine measurement (mass/volume) on 2018-04-06 Creatinine mass 1.28 mg/dL (no code) Via [facility] (45918) serum or plasma chloride measurement (moles/volume) on 2018-04-06 Chloride molar 100 mmol/L (no code) 95 - 106 mmol/L Via [facility] (29534) serum or plasma calcium measurement (mass/volume) on 2018-04-06 Calcium mass 9.9 mg/dL (no code) 8.5 - 10.2 mg/dL Via [facility] (91739) serum or plasma c reactive protein measurement (mass/volume) on 2018-04-06 CRP mass conc 0.57 mg/L (H) 0 - 8 mg/L Via [facility] (76352) serum or plasma aspartate aminotransferase measurement (enzymatic activity/volume) on 2018-04-06 AST enzyme 22 U/L (no code) 10 - 34 U/L Via [facility] act/[facility] (32440) serum or plasma anion gap determination (moles/volume) on 2018-04-06 Anion gap 3 15 mmol/L (H) 3 - 11 mmol/L Via [facility] molar [facility] (76039) serum or plasma alkaline phosphatase measurement (enzymatic activity/volume) on 2018-04-06 ALP enzyme 49 U/L (no code) 44 - 147 U/L Via [facility] (84518) serum or plasma albumin measurement (mass/volume) on 2018-04-06 Albumin mass 4.8 g/dL (H) 3.4 - 5.4 g/dL Via [facility] (81361) serum or plasma alanine aminotransferase measurement (enzymatic activity/volume) on 2018-04-06 ALT enzyme 31 U/L (no code) 4 - 40 U/L Via [facility] act/[facility] ([id number]) manual blood segmented neutrophils/100 leukocytes on 2018-04-06 Segmented 75 % (no code) 35 - 80 % Via [facility] neutrophils/100 [facility] WBC Manual [facility] (d) ([id number]) manual blood lymphocytes/100 leukocytes on 2018-04-06 Lymphocytes/100 14 % (no code) 20 - 40 % Via [facility] WBC Auto (d) [facility] ([id number]) carbon dioxide on 2018-04-06 CO2 molar conc 23 mmol/L (no code) 23 - 29 mmol/L Via [facility] isti [facility] ([id number]) blood neutrophils automated count (number/volume) on 2018-04-06 Neutrophils Auto 10.5 10*3/uL (H) 1.7 - 7 10*3/uL Via [facility] #/vol (Bld) [facility] ([id number]) blood monocytes/100 leukocytes on 2018-04-06 Monocytes/100 11 % (no code) 2 - 8 % Via [facility] WBC Auto (Bld) [facility] ([id number]) Monocytes/100 9 % (no code) 2 - 8 % Via [facility] WBC Auto (Bld) [facility] ([id number]) blood monocytes automated count (number/volume) on 2018-04-06 Monocytes Auto 1.4 10*3/uL (H) 0.3 - 0.9 Via [facility] #/vol (Bld) 10*3/uL [facility] ([id number]) blood lymphocytes automated count (number/volume) on 2018-04-06 Lymphocytes Auto 3.0 10*3/uL (no code) 0.9 - 2.9 Via [place] ti #/vol (Bld) 10*3/uL [facility] ([id number]) blood leukocytes automated count (number/volume) on 2018-04-06 WBC Auto #/vol 14.9 10*3/uL (H) 3.5 - 10.5 Via [facility] i (Bld) 10*3/uL [facility] (47306) blood hematocrit (volume fraction) on 2018-04-06 Hematocrit Auto 43 % (no code) 36.1 - 50.3 % Via [facility] isti Volume Fraction [facility] ([facility]) [place] (80265) blood erythrocytes automated count (number/volume) on 2018-04-06 RBC Auto #/vol 5.11 10*6/uL (no code) 4.2 - 6.1 Via [facility] i (Bld) 10*6/uL [facility] (94017) blood erythrocyte morphology finding identification on 2018-04-06 RBC morphology NORMAL (no code) Via [place] finding Nom [facility] (Bld) [place] ([id number]) automated erythrocyte mean corpuscular volume on 2018-04-06 MCV Auto Entitic 85 fL (no code) 80 - 100 fL [facility] (99159) automated erythrocyte mean corpuscular hemoglobin concentration measurement (mass/volume) on 2018-04-06 MCHC Auto mass 34 g/dL (no code) 32 - 36 g/dL Via [place] ti conc (RBC) [facility] ([id number]) automated erythrocyte mean corpuscular hemoglobin (mass per erythrocyte) on 2018-04-06 MCH Auto Entitic 29 pg (no code) 27 - 31 pg Via [place] ti mass (RBC) [facility] (12981) automated erythrocyte distribution width ratio on 2018-04-06 Erythrocyte 13.6 % (no code) 11.6 - 14.6 % Via [facility] width Auto Ratio [place] (RBC) ([id number]) automated eosinophil count on 2018-04-06 Eosinophils Auto 0.0 10*3/uL (no code) 0.05 - 0.5 Via [place] ti #/vol (Bld) 10*3/uL [facility] (21990) automated blood platelet mean volume measurement on 2018-04-06 Platelet mean 9.5 fL (no code) 7.2 - 11.7 fL Via [place] ti volume Auto [facility] ([facility]) ([id number]) automated blood platelet count (count/volume) on 2018-04-06 Platelets Auto 437 10*3/uL (H) 150 - 450 Via [place] #/vol (Bld) 10*3/uL [facility] ([id number]) automated blood neutrophils/100 leukocytes on 2018-04-06 Neutrophils/100 70 % (no code) 40 - 60 % Via [facility] i WBC Auto (d) [facility] ([id number]) automated blood lymphocytes/100 leukocytes on 2018-04-06 Lymphocytes/100 20 % (no code) 20 - 40 % Via [facility] i WBC Auto (Bld) [facility] (47176) automated blood eosinophils/100 leukocytes on 2018-04-06 Eosinophils/100 0 % (no code) 1 - 4 % Via [facility] i WBC Auto (d) [facility] (41949) automated blood basophils/100 leukocytes on 2018-04-06 Basophils/100 1 % (no code) 0.5 - 1 % Via [place] WBC Auto (d) [facility] (07357) automated blood basophil count (count/volume) on 2018-04-06 Basophils Auto 0.1 10*3/uL (no code) 0 - 0.3 10*3/uL Via Ch risti #/vol (Bld) [facility] (71351) hematology on 2017-11-30 Basophils Auto 0.066 10*3/uL (N) 0 - 0.3 10*3/uL no i nformation #/vol (Bld) Eosinophils Auto 0.092 10*3/uL (N) 0.05 - 0.5 no info rmation #/vol (Bld) 10*3/uL Lymphocytes Auto 2.699 10*3/uL (N) 0.9 - 2.9 no info rmation #/vol (Bld) 10*3/uL Monocytes Auto 1.035 10*3/uL (H) 0.3 - 0.9 no inform ation #/vol (Bld) 10*3/uL Neutrophils Auto 9.209 10*3/uL (H) 1.7 - 7 10*3/uL no information #/vol (Bld) Platelet mean 9.8 fL (N) 7.2 - 11.7 fL no inform ation volume Auto Entitic volume (Bld) cbc on 2017-11-30 Basophils Auto 66 10*3/uL (no code) 0 - 0.3 10*3/uL 11-30-2017 [facility] Health #/vol (Bld) 13:00-0400 [facility] (77449) Basophils/100 0.5 % (no code) 0.5 - 1 % 11-30-2017 [employer] [employer] WBC Auto (Bld) 13:00-0400 [facility] (45681) Eosinophils Auto 92 10*3/uL (no code) 0.05 - 0.5 11-30-2017 [facility]by #/vol (Bld) 10*3/uL 13:00-0400 [facility] (52081) Eosinophils/100 0.7 % (no code) 1 - 4 % 11-30-2017 [employer] WBC Auto (Bld) 13:00-0400 [facility] (43065) Erythrocyte 13.2 % (no code) 11.6 - 14.6 % 11-30-2017 [employer] distribution 13:00-0400 [facility] width Auto Ratio [facility] (RBC) ([id number]) Hematocrit Auto 42.4 % (no code) 36.1 - 50.3 % 11-30-2017 [facility] [place] Volume Fraction 13:00-0400 Center (Bld) [facility] ([id number]) Hemoglobin mass 13.8 g/dL (no code) 12.1 - 17.2 g/dL 11-30-2017 [facility] conc (Bld) 13:00-0400 [facility] (87996) Lymphocytes Auto 2699 10*3/uL (no code) 0.9 - 2.9 11-30-2017 [employer] [place] #/vol (Bld) 10*3/uL 13:00-0400 [facility] (72990) Lymphocytes/100 20.6 % (no code) 20 - 40 % 11-30-2017 [facility] WBC Auto (Bld) 13:00-0400 [facility] (52746) MCH Auto Entitic 29.2 pg (no code) 27 - 31 pg 11-30-2017 Comm [employer] mass (RBC) 13:00-0400 [facility] (02519) MCHC Auto mass 32.5 g/dL (no code) 32 - 36 g/dL 11-30-2017 Comm [employer] conc (RBC) 13:00-0400 [facility] (06654) MCV Auto Entitic 89.8 fL (no code) 80 - 100 fL 11-30-2017 Com [employer] volume (RBC) 13:00-0400 [facility] (34327) Monocytes Auto 1035 10*3/uL (no code) 0.3 - 0.9 11-30-2017 [facility] [facility] #/vol (Bld) 10*3/uL 13:00-0400 [facility] (95404) Monocytes/100 7.9 % (no code) 2 - 8 % 11-30-2017 [facility] WBC Auto (Bld) 13:00-0400 [facility] ([id number]) Neutrophils Auto 9209 10*3/uL (no code) 1.7 - 7 10*3/uL 12-01-[address] [place] [address] Health #/vol (Bld) 13:00-0400 [facility] (76819) Neutrophils/100 70.3 % (no code) 40 - 60 % 11-30-2017 [facility] [email or web address] WBC Auto (Bld) 13:00-0400 [facility] ([id number]) Platelet mean 9.8 fL (no code) 7.2 - 11.7 fL 11-30-2017 [facility] volume 13:00-0400 [facility] volume ([id number]) (Bld) Platelets Auto 383 10*3/uL (no code) 150 - 450 11-30-2017 [facility] #/vol (Bld) 10*3/uL 13:00-0400 [facility] (45369) RBC Auto #/vol 4.72 10*6/uL (no code) 4.2 - 6.1 11-30-2017 [facility] (Bld) 10*6/uL 13:00-0400 [facility] ([id number]) WBC Auto #/vol 13.1 10*3/uL (no code) 3.5 - 10.5 11-30-2017 Com [facility] (Bld) 10*3/uL 13:00-0400 [facility] ([id number]) other on 2017-07-12 Exp date 03/23 (no code) [facility] ([id number]) Lot [id number] (no code) [facility] ([id number]) thyroid on 2017-01-13 Thyrotropin Qn 1.660 (no code) 01-13-2017 Not Availab le 09:36-0400 ([id number]) other on 2017-01-10 Basophils Manual 0.0 (no code) 01-10-2017 Not Avail able cnt #/vol (Bld) 21:59-0400 ([id number]) Eosinophils 0.1 (no code) 01-10-2017 Not Available Manual cnt #/vol 21:59-0400 ([id number]) (Bld) Hematology Note: (no code) 01-10-2017 Not Available studies (set) 21:59-0400 ([id number]) Lymphocytes 2.3 (no code) 01-10-2017 Not Available Manual cnt #/vol 21:59-0400 ([id number]) (Bld) Monocytes Manual 0.8 (no code) 01-10-2017 Not Avail able cnt #/vol (Bld) 21:59-0400 ([id number]) Neutrophils 7.2 (H) 01-10-2017 Not Available Manual cnt #/vol 21:59-0400 ([id number]) (Bld) hematology on 2017-01-10 Basophils/100 0 % (no code) 0.5 - 1 % 01-10-2017 Not Avai lable WBC Auto (Bld) 21:59-0400 ([id number]) Eosinophils/100 1 % (no code) 1 - 4 % 01-10-2017 Not Av ailable WBC Auto (Bld) 21:59-0400 ([id number]) Erythrocyte 13.0 % (no code) 11.6 - 14.6 % 01-10-2017 Not Av ailable distribution 09:38-0400 ([id number]) width Auto Ratio (RBC) Hematocrit Auto 44.0 % (no code) 36.1 - 50.3 % 01-10-2017 No t Available Volume Fraction 09:38-0400 ([id number]) (Bld) Hemoglobin mass 15.2 g/dL (no code) 12.1 - 17.2 g/dL 01-10-2017 Not Available conc (Bld) 09:38-0400 ([id number]) Lymphocytes/100 22 % (no code) 20 - 40 % 01-10-2017 Not Av ailable WBC Auto (Bld) 21:59-0400 ([id number]) MCH Auto Entitic 29.9 pg (no code) 27 - 31 pg 01-10-2017 Not Available mass (RBC) 09:38-0400 ([id number]) MCHC Auto mass 34.5 g/dL (no code) 32 - 36 g/dL 01-10-2017 Not Available conc (RBC) 09:38-0400 ([id number]) MCV Auto Entitic 86 fL (no code) 80 - 100 fL 01-10-2017 Not Available volume (RBC) 09:38-0400 ([id number]) Monocytes/100 8 % (no code) 2 - 8 % 01-10-2017 Not Avai lable WBC Auto (Bld) 21:59-0400 ([id number]) Neutrophils/100 69 % (no code) 40 - 60 % 01-10-2017 Not Av ailable WBC Auto (Bld) 21:59-0400 ([id number]) Platelets Auto 409 10*3/uL (H) 150 - 450 01-10-2017 Not A vailable #/vol (Bld) 10*3/uL 09:38-0400 ([id number]) Platelets LM Ql Note: (no code) 01-10-2017 Not Availa ble (Bld) 21:59-0400 ([id number]) RBC Auto #/vol 5.09 10*6/uL (no code) 4.2 - 6.1 01-10-2017 Not Available (Bld) 10*6/uL 09:38-0400 ([id number]) RBC morphology Note: (no code) 01-10-2017 Not Availab le finding Nom 21:59-0400 ([id number]) (Bld) WBC Auto #/vol 10.4 10*3/uL (no code) 3.5 - 10.5 01-10-2017 Not Available (Bld) 10*3/uL 09:38-0400 ([id number]) other on 2016-12-13 Pathologist Comment (A) 12-13-2016 Not Available review 16: ([id number]) Pathologist comment (Bld) [Interp] Pathologist Normal (no code) 12-13-2016 Not Available review 16: ([id number]) Pathologist comment (Bld) [Interp] Pathologist Note: (no code) 12-13-2016 Not Available review 16: ([id number]) Pathologist comment (Bld) [Interp] imm/path on 2016-12-13 Pathologist name Comment (no code) 12-13-2016 Not Avail able 16: ([id number]) other on 2016-12-10 Erythrocyte 13.7 % (no code) 11.6 - 14.6 % 12-10-2016 Not Av ailable distribution 08:000400 (05298) width (RBC) [Ratio] Immature 0.1 10*3/uL (no code) 0 - 0.2 10*3/uL 12-10-2016 Not Available granulocytes 08:000400 (65690) (Bld) [#/Vol] Immature 1 % (no code) 0 - 0.5 % 12-10-2016 Not Availabl e granulocytes/100 08:000400 (69501) WBC (Bld) MCHC (RBC) 33.6 g/dL (no code) 32 - 36 g/dL 12-10-2016 Not Avai lable [Mass/Vol] 08:00-0400 ([id number]) hematology on 2016-12-10 Basophils (Bld) 0.0 10*3/uL (no code) 0 - 0.3 10*3/uL 12-10-2016 Not Available [#/Vol] 08:00-0400 ([id number]) Basophils/100 0 % (no code) 0.5 - 1 % 12-10-2016 Not Avai lable WBC (Bld) 08:000400 ([id number]) Eosinophils 0.3 10*3/uL (no code) 0.05 - 0.5 12-10-2016 Not Anna ilable (Bld) [#/Vol] 10*3/uL 08: (68296) Eosinophils/100 2 % (no code) 1 - 4 % 12-10-2016 Not Av ailable WBC (Bld) 08: (51157) Hematocrit (Bld) 44.4 % (no code) 36.1 - 50.3 % 12-10-2016 N ot Available [Volume 08: (83608) fraction] Hemoglobin (Bld) 14.9 g/dL (no code) 12.1 - 17.2 g/dL 12-10-2016 Not Available [Mass/Vol] 08: (13321) Lymphocytes 3.4 10*3/uL (H) 0.9 - 2.9 12-10-2016 Not Avai lable (Bld) [#/Vol] 10*3/uL 08: (48686) Lymphocytes/100 30 % (no code) 20 - 40 % 12-10-2016 Not Av ailable WBC (Bld) 08: (92599) MCH (RBC) 29.9 pg (no code) 27 - 31 pg 12-10-2016 Not Availab le [Entitic mass] 08: (10070) MCV (RBC) 89 fL (no code) 80 - 100 fL 12-10-2016 Not Availa ble [Entitic vol] 08: (85201) Monocytes (Bld) 1.0 10*3/uL (H) 0.3 - 0.9 12-10-2016 Not Available [#/Vol] 10*3/uL 08: (38089) Monocytes/100 9 % (no code) 2 - 8 % 12-10-2016 Not Avai lable WBC (Bld) 08: (84568) Neutrophils 6.8 10*3/uL (no code) 1.7 - 7 10*3/uL 12-10-2016 No t Available (Bld) [#/Vol] 08: (16602) Neutrophils/100 58 % (no code) 40 - 60 % 12-10-2016 Not Av ailable WBC (Bld) 08: (54185) Platelets (Bld) 390 10*3/uL (H) 150 - 450 12-10-2016 Not Available [#/Vol] 10*3/uL 08:040 (28075) RBC (Bld) 4.99 10*6/uL (no code) 4.2 - 6.1 12-10-2016 Not Avail able [#/Vol] 10*6/uL 08: (85970) WBC (Bld) 11.7 10*3/uL (H) 3.5 - 10.5 12-10-2016 Not Avai lable [#/Vol] 10*3/uL 08: (53151) other on 2016-11-05 Erythrocyte 13.3 % (no code) 11.6 - 14.6 % 11-05-2016 Not Av ailable distribution 08: (85640) width (RBC) [Ratio] Immature 0.0 10*3/uL (no code) 0 - 0.2 10*3/uL 11-05-2016 Not Available granulocytes 08: (53557) (Bld) [#/Vol] Immature 0 % (no code) 0 - 0.5 % 11-05-2016 Not Availabl e granulocytes/100 08:0400 ([id number]) WBC (Bld) MCHC (RBC) 32.8 g/dL (no code) 32 - 36 g/dL 11-05-2016 Not Avai lable [Mass/Vol] 08:0400 ([id number]) hematology on 2016-11-05 Basophils (Bld) 0.1 10*3/uL (no code) 0 - 0.3 10*3/uL 11-05-2016 Not Available [#/Vol] 08:180400 (62011) Basophils/100 1 % (no code) 0.5 - 1 % 11-05-2016 Not Avai lable WBC (Bld) 08:180400 (42776) Eosinophils 0.2 10*3/uL (no code) 0.05 - 0.5 11-05-2016 Not Anna ilable (Bld) [#/Vol] 10*3/uL 08:180400 ([id number]) Eosinophils/100 2 % (no code) 1 - 4 % 11-05-2016 Not Av ailable WBC (Bld) 08:0400 ([id number]) Hematocrit (Bld) 44.5 % (no code) 36.1 - 50.3 % 11-05-2016 N ot Available [Volume 08: (03583) fraction] Hemoglobin (Bld) 14.6 g/dL (no code) 12.1 - 17.2 g/dL 11-05-2016 Not Available [Mass/Vol] 08:180400 ([id number]) Lymphocytes 3.4 10*3/uL (H) 0.9 - 2.9 11-05-2016 Not Avai lable (Bld) [#/Vol] 10*3/uL 08:0400 ([id number]) Lymphocytes/100 27 % (no code) 20 - 40 % 11-05-2016 Not Av ailable WBC (Bld) 08:0400 ([id number]) MCH (RBC) 29.5 pg (no code) 27 - 31 pg 11-05-2016 Not Availab le [Entitic mass] 08:0400 (56658) MCV (RBC) 90 fL (no code) 80 - 100 fL 11-05-2016 Not Availa ble [Entitic vol] 08:0400 (34138) Monocytes (Bld) 1.0 10*3/uL (H) 0.3 - 0.9 11-05-2016 Not Available [#/Vol] 10*3/uL 08:180400 (65847) Monocytes/100 8 % (no code) 2 - 8 % 11-05-2016 Not Avai lable WBC (Bld) 08:180400 (23778) Neutrophils 7.8 10*3/uL (H) 1.7 - 7 10*3/uL 11-05-2016 No t Available (Bld) [#/Vol] 08:180400 (87304) Neutrophils/100 62 % (no code) 40 - 60 % 11-05-2016 Not Av ailable WBC (Bld) 08:180400 (58618) Platelets (Bld) 355 10*3/uL (no code) 150 - 450 11-05-2016 Not Available [#/Vol] 10*3/uL 08: (05946) RBC (Bld) 4.95 10*6/uL (no code) 4.2 - 6.1 11-05-2016 Not Avail able [#/Vol] 10*6/uL 08:180400 (28395) WBC (Bld) 12.5 10*3/uL (H) 3.5 - 10.5 11-05-2016 Not Avai lable [#/Vol] 10*3/uL 08:0 (94082) Vital Signs Vital Sign Value Interpretation Reference Date Time Care Prov ider Facility (Normalized) (Normalized) Range BMI (Body Mass 35.45 kg/m2 (no code) 15 - 25 kg/m2 05-01-2018 B [facility] Community Index) 10:40-[address] [place] [address] (59659) BMI (Body Mass 35.61 kg/m2 (no code) 15 - 25 kg/m2 04-04-2018 YAA ALVARES Community Index) 18:50-[address] [place] [address] (30831) BMI (Body Mass 37.46 kg/m2 (no code) 15 - 25 kg/m2 12-25-2017 K [facility] Community Index) 16:40-[address] [place] [address] (20598) BMI (Body Mass 34.01 kg/m2 (no code) 15 - 25 kg/m2 11-30-2017 K [facility] Community Index) 15:00-[address] [place] [address] (91402) BMI (Body Mass 36.94 kg/m2 (no code) 15 - 25 kg/m2 11-30-2017 B [facility] Community Index) 10:40-0400 6[address] [facility] ([id number]) Body 98.3 [degF] (no code) 97.8 - 99.0 05-01-2018 DORIS MARIE Community Temperature [degF] 10:40-0500 [id number] [facility] (16783) Body 97.8 [degF] (no code) 97.8 - 99.0 04-04-2018 [facility] Temperature [degF] 18:50-[address] (57260) Body 98.4 [degF] (no code) 97.8 - 99.0 11-30-2017 [facility] Temperature [degF] 10:40-[address] [place] [address] (37325) Height 172.72 cm (no code) cm 05-01-2018 [facility] 10:40-[address] [place] [address] (67561) Height 172.72 cm (no code) cm 04-04-2018 [facility] Comm unity 18:50-[address] (96553) Height 172.72 cm (no code) cm 12-25-2017 [facility] 16:40-[address] [place] [address] (89640) Height 172.72 cm (no code) cm 11-30-2017 [facility] 10:40-[address] [place] [address] (72423) Pulse Oximetry 95 % (no code) 95 - 100 % 12-25-2017 [facility] 16:40-[address] [place] [address] (78675) Pulse Oximetry 0 % (no code) 95 - 100 % 11-30-2017 [facility] 10:40-[address] [place] [address] (94565) Weight 105.78 kg (no code) kg 05-01-2018 [facility] 10:40-[address] [place] [address] (47309) Weight 106.23 kg (no code) kg 04-04-2018 [facility] unity 18:50-[address] (37292) Weight 111.77 kg (no code) kg 12-25-2017 [facility] 16:40-[address] [place] [address] ([id number]) Weight 101.47 kg (no code) kg 11-30-2017 [facility] 15:00-0400 [facility] (73096) Weight 110.22 kg (no code) kg 11-30-2017 DORISGEORGINA LAYTON [facility] 10:40-[id number] [place] [address] (23770) Interventions No Information Plan of Treatment Normalized Care Care Detail Care Activity Date Care Provider F acility Activity () [facility] 03-12-2018 DORIS KINJAL 25781 C [facility] Behavioral [facility] F/u 30 min [place] ([id number]) (-30) [facility] 04-16-2018 DORIS KINJAL 55421 C [facility] Behavioral [facility] F/u 30 [facility] ([id number]) (-) [facility] 01-07-2019 DORIS LAYTON 47190 [facility] 30 [facility] ([id number]) ([facility]) Chronic Health [facility] 05-01-2018 DORIS BELTRANOCH 66355 [facility] ([id number]) ([facility]) Chronic Health [facility] 01-09-2019 DORIS KINJAL 29262 [facility] ([id number]) (PSY--20) [facility] 06-18-2018 DORIS BELTRANOCH 39674 [facility] 20 [facility] (05643) (PSY-FU-20) [facility] 01-03-2019 DORIS KINJAL 99159 [facility] 20 [facility] ([id number]) [facility] 05-09-2019 DORIS LAYTON 667 62 [facility] ([id number]) Coronavirus Ab Qn no information no information MD MAN AMBRIZ TA Faulk Via (S) [phone] (Work Phone: [facility] ) ([id number]) Follow-up encounter [facility] 01-03-2019 DORIS LAYTON [address] [facility] (34330) MRSA isol Org no information no information DORIS LAYTON [address] specific cx Ql (Unsp [facility] spec) (95349) Patient Education no information no information MAN LEO [address] [facility] (11698) Patient referral no information no information MD MAN Alfaro Faulk [address] [address] [facility] (95993) Goals Patient Goal Desired Goal no information no information Social History Normalized Code Original Code Date Value Tobacco smoking status Tobacco smoking status 03-14-2019 - Smokes tobacco daily NHIS NHIS (finding) no information no information 03-14-2019 Denies Use no information no information 03-14-2019 No no information no information 03-14-2019 Current Everyda y Smoker no information no information 03-14-2019 Cigarettes Sex Assigned At Sex Assigned At 1960 - 10 Male no information no information 11-12-2019 Rarely Uses Functional Status The data below is from unstructured sourcesNo functional status results.No functional status results.No functional status results.No functional status results.No functional status results.No functional status information available.No functional status information available.No functional status results.No functional status results.No functional status information available.No functional status information available.No functional status info rmation available.No functional status information available.No functional statu s information available.No functional status information available.No functional status information available.No functional status information available.No func tional status information available.No functional status information available.N o functional status information available.No functional status information avail able.No functional status information available.No functional status information available.No functional status information available.No functional status infor mation available.No functional status information available.No functional status information available.No Functional Status information availableNo Functional S tatus information availableNo Functional Status information availableNo Function al Status information availableNo Functional Status information availableNo Func tional Status information availableNo Functional Status information availableNo Functional Status information availableNo Functional Status information availabl Hilaria Functional Status information availableNo Functional Status information avai lableNo Functional Status information availableNo Functional Status information availableNo Functional Status information availableNo Functional Status informat ion availableNo Functional Status information availableNo Functional Status info rmation availableNo Functional Status information availableNo Functional Status information availableNo Functional Status information availableNo Functional Sta tus information availableNo Functional Status information availableNo Functional Status information availableNo Functional Status information availableNo Functi onal Status information availableNo Functional Status information availableNo Fu nctional Status information availableNo Functional Status information availableN o Functional Status information availableNo Functional Status information availa ble Mental Status The data below is from unstructured sourcesNo Mental Status Information AvailableNo Mental Status Information AvailableNo Mental Status Information AvailableNo Mental Status Information AvailableNo Mental Status Information AvailableNo Mental Status Information AvailableNo Mental St atus Information AvailableNo Mental Status Information AvailableNo Mental Status Information AvailableNo Mental Status Information AvailableNo Mental Status Inf ormation AvailableNo Mental Status Information AvailableNo Mental Status Informa tion AvailableNo Mental Status Information AvailableNo Mental Status Information AvailableNo Mental Status Information AvailableNo Mental Status Information Anna ilableNo Mental Status Information AvailableNo Mental Status Information Availab leNo Mental Status Information AvailableNo Mental Status Information AvailableNo Mental Status Information AvailableNo Mental Status Information AvailableNo Men greg Status Information AvailableNo Mental Status Information AvailableNo Mental Status Information AvailableNo Mental Status Information AvailableNo Mental Stat us Information AvailableNo Mental Status Information Available Encounters Encounter Normalized Encounter Encounter Diagnosis Care Provi fidel Organization Date Type 11-05-2018 (ACUTE) Acute Visit Other specified soft DORIS EN [facility] (no Phase Focus [facility] - tissue disorders phone) (no phone) 11-05-2018 - 11-05-2018 11-12-2018 ([facility]-30) Behavioral Unspecified mood ERWIN BOEKHO UT (no Phase [facility] - Health F/u 30 min [affective] disorder phone) (no phone) 11-12-2018 - 11-12-2018 10-08-2018 ([facility]-30) Behavioral Unspecified mood ERWIN BOEKHO UT [facility] 30 min [affective] disorder phone) (no phone) 10-08-2018 - 10-08-2018 08-20-2018 ([facility]-30) Behavioral Unspecified mood ERWIN BOEKHO UT [facility]/u 30 min [affective] disorder phone) (no phone) 08-20-2018 - 08-20-2018 06-27-2018 ([facility]-30) Behavioral Unspecified mood ERWIN BOEKHO UT (no [facility] - Health F/u 30 min [affective] disorder phone) (no phone) 06-27-2018 - 06-27-2018 03-12-2018 (-FU-30) Behavioral Unspecified mood ERWIN JARA (no [facility] - Health F/u 30 min [affective] disorder phone) (no phone) 03-12-2018 - 03-12-2018 12-20-2018 ([facility]) Chronic Health Type 2 diabetes MARY ANN JASON (no [facility] - Maintenance mellitus with phone) DORIS LAYTON (no phone) 12-20-2018 hyperglycemia (no phone) - 12-20-2018 09-18-2018 ([facility]) Chronic Health Type 2 diabetes DORIS LAYTON (no [facility] - Maintenance mellitus with phone) (no phone) 09-18-2018 hyperglycemia - 09-18-2018 05-01-2018 ([facility]) Chronic Health Encounter for other DORIS MARIE (no [facility] - Maintenance preprocedural phone) (no phone) 05-01-2018 examination - 05-01-2018 01-31-2018 (DM-ED) Diabetes no information DORIS LAYTON (no [facility] - Education phone) (no phone) 01-31-2018 - 01-31-2018 08-27-2018 (DM-MGMT) Diabetes no information KAVITHA AMATO (no p tori) [facility] - Management (no phone) 08-27-2018 - 08-27-2018 12-18-2018 (PSY-FU-20) Psychiatry Bipolar disorder, MARLIN BRIAN TODD (no [facility] - F/U 20 min unspecified phone) (no phone) 12-18-2018 - 12-18-2018 11-29-2018 (PSY-FU-20) Psychiatry Bipolar disorder, MARLINMARILEE TODD (no [facility] - F/U 20 min unspecified phone) (no phone) 11-29-2018 - 11-29-2018 10-30-2018 (PSY-FU-20) Psychiatry Bipolar disorder, MARLINMARILEE TODD (no [facility] - F/U 20 min unspecified phone) (no phone) 10-30-2018 - 10-30-2018 07-03-2018 (PSY-FU-20) Psychiatry Bipolar disorder, MARLINMARILEE TODD [facility] unspecified phone) (no phone) 07-03-2018 - 07-03-2018 12-03-2018 (WALK-IN) Walk-In Care Pain in right hand BLANCA DEWAYNE MARTINI (no [facility] - phone) CARE (no phone) 12-03-2018 - 12-03-2018 04-04-2018 (WALK-IN) Walk-In Care [place]oster without ALMADIA DELUCA (no [facility] - complications phone) CARE (no phone) 04-04-2018 - 04-04-2018 03-13-2018 (WALK-IN) Walk-In Care Fall (on) (from) other ISIDO NWAGWU (no [facility] - stairs and steps, phone) [facility] (no adriana ne) 03-13-2018 initial encounter [id number] (no phone) - [facility] YoselynWAGJACK (no 03-13-2018 phone) 03-20-2019 Admission to day no information (no phone) [facility] (no phone) 03-20-2019 10-08-2019 [facility] Type 2 diabetes DORIS KINJAL (no [facility] mellitus with other phone) (no phone) specified complication 07-02-2019 [facility] Type 2 diabetes MARY ANN DOLL UGH (no [facility] mellitus with other phone) (no phone) specified complication 05-16-2019 [facility] Chronic obstructive DORIS E NOCH (no [facility] pulmonary disease, phone) (no phone) unspecified 05-09-2019 [facility] Bipolar disorder, MARLIN CAMILO ER (no [facility] unspecified phone) (no phone) 02-28-2019 [facility] Constipation, MARY ANN DOLLUG H (no [facility] unspecified phone) (no phone) 02-07-2019 [facility] Bipolar disorder, MARLIN CAMILO ER (no [facility] unspecified phone) (no phone) 02-07-2019 - 02-07-2019 01-09-2019 [facility] Type 2 diabetes DORIS KINJAL (no [facility] - mellitus with other phone) (no phone) 01-09-2019 specified complication - 01-09-2019 01-03-2019 [facility] Bipolar disorder, MARLIN CAMILO ER (no [facility] - unspecified phone) (no phone) 01-03-2019 - 01-03-2019 10-11-2019 Consultation for Anemia, unspecified DORIS KINJAL (no [facility] laboratory medicine phone) (no phone) 10-10-2019 Consultation for Type 2 diabetes DORIS KINJAL (no [facility] laboratory medicine mellitus with other phone) (no p tori) specified complication 12-13-2018 Consultation for Bipolar disorder, MARLIN SAPPLYSSA (n o [facility] - laboratory medicine unspecified phone) (no ph one) 12-13-2018 - 12-13-2018 09-11-2018 Consultation for Elevated white blood DORIS KINJAL (no [facility] - laboratory medicine cell count, phone) (no ph one) 09-11-2018 unspecified - 09-11-2018 06-08-2018 Consultation for Elevated white blood DORIS KINJAL (no [facility] - laboratory medicine cell count, phone) (no ph one) 06-08-2018 unspecified - 06-08-2018 11-14-2019 Discharged Recurring no information (no phone) As [facility] (no phone) 11-14-2019 05-07-2019 Discharged Recurring no information (no phone) As [facility] (no phone) 05-08-2019 04-08-2019 Discharged Recurring no information (no phone) [facility] (no phone) 05-21-2019 02-06-2019 Discharged Recurring no information (no phone) [facility] (no phone) 05-08-2019 07-05-2018 Discharged Recurring no information JOHN E APR N no organization name - [facility] Work Phone: 08-13-2018 05-14-2018 Discharged Recurring no information JOHN E APR N no organization name - [facility] Work Phone: 08-13-2018 04-12-2018 Discharged Recurring no information DORIS BELTRANOCH Work no organization name - 06-18-2018 04-06-2018 Emergency department no information CAMLAURA MAIER no organization name - patient visit Work Phone: 04-06-2018 04-03-2018 Emergency department no information AMY JESUS W ork no organization name - patient visit Phone: 04-03-2018 ELBA LEYVAE 01-03-2019 Follow-up encounter Trigger finger, right ANUP VALERIO W (no phone) [facility] - middle finger (no phone) 01-03-2019 - 01-03-2019 04-12-2018 Patient encounter no information no name no or ganization name - 06-17-2018 04-11-2018 Patient encounter no information no name no or ganization name 04-10-2018 Patient encounter no information no name no or ganization name 04-06-2018 Patient encounter no information no name no or ganization name 04-03-2018 Patient encounter no information no name no or ganization name 03-21-2018 Patient encounter no information DORIS LAYTON Wo rk no organization name DORIS LAYTON NEGATED Patient encounter no information no name no or ganization name 03-19-2018 01-17-2018 Patient encounter no information no name no or ganization name 01-10-2018 Patient encounter no information no name no or ganization name 12-25-2017 Patient encounter no information no name no or ganization name 12-22-2017 Patient encounter no information no name no or ganization name NEGATED Patient encounter no information no name no or ganization name 12-11-2017 12-05-2017 Patient encounter no information no name no or ganization name NEGATED Patient encounter no information no name no or ganization name 11-30-2017 11-27-2017 Patient encounter no information no name no or ganization name 11-20-2017 Patient encounter no information no name no or ganization name 11-16-2017 Patient encounter no information no name no or ganization name 11-13-2017 Patient encounter no information no name no or ganization name 11-08-2017 Patient encounter no information no name no or ganization name 11-07-2017 Patient encounter no information no name no or ganization name - 11-07-2017 10-24-2017 Patient encounter no information no name no or ganization name 10-04-2017 Patient encounter no information no name no or ganization name 09-25-2017 Patient encounter no information no name no or ganization name NEGATED Patient encounter no information no name no or ganization name 09-25-2017 09-18-2017 Patient encounter no information no name no or ganization name NEGATED Patient encounter no information no name no or ganization name 09-18-2017 09-11-2017 Patient encounter no information no name no or ganization name 09-07-2017 Patient encounter no information no name no or ganization name 09-04-2017 Patient encounter no information no name no or ganization name 08-31-2017 Patient encounter no information no name no or ganization name NEGATED Patient encounter no information no name no or ganization name 08-28-2017 08-25-2017 Patient encounter no information no name no or ganization name 08-18-2017 Patient encounter no information no name no or ganization name 08-17-2017 Patient encounter no information no name no or ganization name 08-15-2017 Patient encounter no information no name no or ganization name NEGATED Patient encounter no information no name no or ganization name 07-13-2017 - 07-13-2017 07-12-2017 Patient encounter no information no name no or ganization name 06-28-2017 Patient encounter no information no name no or ganization name 04-14-2017 Patient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
--- OUTSIDE RECORDS SUMMARY | 2019-11-19 10:31 | XMS REPORT ---
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 3 Active [id number] Problem Panlobular emphysema J43.1 Active 3815267 Problem Hyperplastic colonic polyp, unspecified part of colon K63.5 Active 930619278 Problem External hemorrhoids K64.4 Active 32241447 Problem Hiatal hernia K44.9 Active 717174 09 Problem Other osteoarthritis of spine, cervical region M47 .892 Active 683574736 Problem GERD with esophagitis K21.0 Active 855318051 Problem Bipolar disorder, unspecified F31.9 Active 73287044 Problem Uncontrolled type 2 diabetes mellitus with hyperglycemia, without long- term current use of insulin E11.65 Active 560077438 Problem Internal hemorrhoids K64.8 Active 28859800 Problem Other chronic gastritis without hemorrhage K29.50 Active 0895234 Problem Neuropathy G62.9 Active 625340768 Problem Hyperlipidemia E78.5 Active 56384 004 Problem Enlarged lymph node R59.9 Active 33343885 Problem Tobacco use Z72.0 Active 10971266 0 Problem Hyperlipidemia, unspecified hyperlipidemia type E7 8.5 Active 80305234 Problem Tear of right rotator cuff, unspecified tear extent M75.101 Active 851373631 Problem Non-seasonal allergic rhinitis due to other allergic iggy er J30.89 Active 01918814 Problem Mood disorder F39 Active 464317 05 Problem Nocturnal hypoxia G47.34 Active 38 4830611 Problem Other chronic pain G89.29 Active 8 3469602 Problem Gastroesophageal reflux disease, esophagitis pre sence not specified K21.9 Active 624928095 Problem Chronic obstructive pulmonary disease, unspecified COPD ty pe J44.9 Active 25769276 Problem Low back pain M54.5 Active 624239 005 Problem Chronic obstructive pulmonary disease, unspecified COPD ty pe J44.9 Active 74831253 Problem History of [place] (myocardial infarction) I25.2 Active 782521965 Problem Leukocytosis D72.829 Active 5513372 06 Problem Type 2 diabetes mellitus wit h other specified complication, without long-term current use of insulin E11.69 Active 29251436 Problem Type 2 diabetes mellitus wit hout complication, without long-term current use of insulin E11.9 Active 506796790 Problem Constipation, unspecified constipation type K59.00 Active 84084854 Problem Constipation, unspecified constipation type K59.00 Active 35835754 ALLERGIES No Information ENCOUNTERS Encounter Location Date Diagnosis [place] [address] [place] [id number] [place] [id number] 08 Oct, 2019 Anemia, unspecified D64.9 [place] [address] [address] October, Anemia, unspecified D64.9 [place] [address] [place] [id number] [address] [place] [phone] October, Type 2 diabetes mellitus wit h other specified complication, without long-term current use of insulin E11.69 [place] [address] [place] [id number] [address] [place] [phone] 05 Oct, 2019 Type 2 diabetes mellitus wit h other specified complication, without long-term current use of insulin E11.69 ; Irritant contact dermatitis, unspecified trigger L24.9 and Non-seasonal allergic rhinitis due to other allergic trigger J30.89 [place] [address] [place] [id number] [place] [phone] Sep, [place] [address] [facility] [id number] [address] [place] [phone] Sep, [place] [address] [place] [id number] [address] [place] [phone] Aug, Non-seasonal allergic rhinit is due to other allergic trigger J30.89 [place] [address] [place] [id number] [address] [place] [phone] Aug, [facility] [address] [facility] [id number] [address] [place] [phone] Aug, Chronic obstructive pulmonar y disease, unspecified COPD type J44.9 [facility] [address] [facility] [id number] [address] [place] [phone] Jun, Type 2 diabetes mellitus wit h other specified complication, without long-term current use of insulin E11.69 ; Non-seasonal allergic rhinitis due to other allergic trigger J30.89 ; Constipation, unspecified constipation type K59.00 ; Chronic obstructive pulmonary disease, unspecified COPD type J44.9 and Tobacco use Z72.0 [place] [address] [facility] [id number] [address] [place] [phone] May, [place] [address] [address] May, Chronic obstructive pulmonar y disease, unspecified COPD type J44.9 and Cough R05 [place] [address] [facility] [id number] [address] [place] [phone] May, [place] [address] [place] [id number] [address] [place] [phone] May, [place] [address] [place] [id number] [address] [place] [phone] May, [place] [address] [facility] [id number] [address] [place] [phone] May, [facility] [address] [facility] [id number] [address] [place] [phone] May, Bipolar disorder, unspecifie d F31.9 [place] [address] [facility] [id number] [address] [place] [phone] Apr, [place] [address] [facility] [id number] [address] [place] [phone] Feb, Constipation, unspecified co nstipation type K59.00 [place] [address] [id number] [address] [place] [phone] Feb, Bipolar disorder, unspecifie d F31.9 [place] [address] [id number] [address] [place] [phone] Feb, [place] [address] [id number] [address] [place] [phone] Jan, Wrist pain M25.539 [place] [address] [id number] [address] [place] [phone] Jan, Bipolar disorder, unspecifie d F31.9 [place] [address] [id number] [address] [place] [phone] Jan, [place] [address] [facility] [id number] [address] [place] [phone] Jan, [place] [address] [facility] [id number] [address] [place] [phone] Jan, Type 2 diabetes mellitus wit h other specified complication, without long-term current use of insulin E11.69 ; Tobacco use Z72.0 ; Hyperlipidemia, unspecified hyperlipidemia type E78.5 and Non-seasonal allergic rhinitis due to other allergic trigger J30.89 [place] [address] [facility] [id number] [address] [place] [phone] Jan, Trigger middle finger of rig ht hand M65.331 [place] [address] [facility] [id number] [address] [place] [phone] Jan, Bipolar disorder, unspecifie d F31.9 [place] [address] [id number] [address] [place] [phone] Dec, Bipolar disorder, unspecifie d F31.9 [place] [address] [facility] [id number] [address] [place] [phone] Dec, Uncontrolled type 2 diabetes mellitus with hyperglycemia, without long-term current use of insulin E11.65 ; Tear of right rotator cuff, unspecified tear extent M75.101 and Preoperative evaluation to rule out surgical contraindication Z01.818 [facility] [address] [id number] [address] [place] [phone] Dec, Bipolar disorder, unspecifie d F31.9 [facility] [address] [id number] [address] [place] [phone] Dec, Bipolar disorder, unspecifie d F31.9 [facility] [address] [id number] [address] [place] [phone] Dec, Right hand pain M79.641 and Trigger middle finger of right hand M65.331 [facility] [address] [id number] [address] [place] [phone] Nov, Bipolar disorder, unspecifie d F31.9 [facility] [address] [id number] [address] [place] [phone] Nov, [facility] [address] [id number] [address] [place] [phone] Nov, Mood disorder F39 [facility] [address] [id number] [address] [place] [phone] Nov, Swelling of right hand M79.8 9 [facility] [address] [id number] [address] [place] [phone] October, Bipolar disorder, unspecifie d F31.9 [facility] [address] [id number] [address] [place] [phone] October, Mood disorder F39 [facility] [address] [id number] [address] [place] [phone] Sep, [facility] [address] [facility] [id number] [address] [place] [phone] Sep, Right hip pain M25.551 [facility] [address] [facility] [id number] [address] [place] [phone] Sep, Uncontrolled type 2 diabetes mellitus with hyperglycemia, without long-term current use of insulin E11.65 ; Neuropathy G62.9 ; Leukocytosis D72.829 ; Gastroesophageal reflux disease, esophagitis presence not specified K21.9 and Right hip pain M25.551 [facility] [address] [id number] [address] [place] [phone] Sep, [facility] [address] [facility] [id number] [address] [place] [phone] Sep, Leukocytosis D72.829 [facility] [address] [id number] [address] [place] [phone] Sep, [facility] [address] [id number] [address] [place] [phone] Aug, [facility] [address] [id number] [address] [place] [phone] Aug, [facility] [address] [id number] [address] [place] [phone] Aug, [facility] [address] [id number] [address] [place] [phone] Aug, [facility] [address] [id number] [address] [place] [phone] Aug, Mood disorder F39 [facility] [address] [facility] [id number] [address] [place] [phone] Aug, [facility] [address] [facility] [id number] [address] [place] [phone] Aug, [facility] [address] [id number] [address] [place] [phone] Jul, [facility] [address] [id number] [address] [place] [phone] Jul, [facility] [address] [facility] [id number] [address] [place] [phone] Jun, Bipolar disorder, unspecifie d F31.9 [facility] [address] [facility] [id number] [address] [place] [phone] Jun, Mood disorder F39 [facility] [address] [facility] [id number] [address] [place] [phone] Jun, Leukocytosis D72.829 [facility] [address] [facility] [id number] [address] [place] [phone] Jun, Leukocytosis D72.829 [facility] [address] [facility] [id number] [address] [place] [phone] Jun, [facility] [address] [facility] [id number] [address] [place] [phone] May, [facility] [address] [facility] [id number] [address] [place] [phone] Apr, Uncontrolled type 2 diabetes mellitus with hyperglycemia, without long-term current use of insulin E11.65 [facility] [address] [facility] [id number] [address] [place] [phone] Apr, Uncontrolled type 2 diabetes mellitus with hyperglycemia, without long-term current use of insulin E11.65 [facility] [address] [facility] [id number] [address] [place] [phone] Apr, Preoperative clearance Z01.8 18 and Uncontrolled type 2 diabetes mellitus with hyperglycemia, without long-term current use of insulin E11.65 [facility] [address] [facility] [id number] [address] [place] [phone] Apr, [facility] [address] [facility] [id number] [address] [place] [phone] Apr, [facility] [address] [facility] [id number] [address] [place] [phone] Apr, [facility] [address] [place] [id number] [address] [place] [phone] Apr, [facility] [address] [facility] [id number] [address] [place] [phone] Mar, Herpes zoster without compli cation B02.9 [facility] [address] [facility] [id number] [address] [place] [phone] Mar, [facility] [address] [facility] [id number] [address] [place] [phone] Mar, [facility] [address] [facility] [id number] [address] [place] [phone] Mar, Uncontrolled type 2 diabetes mellitus with hyperglycemia, without long-term current use of insulin E11.65 [facility] [address] [facility] [id number] [address] [place] [phone] Mar, Fall (on) (from) other stair s and steps, initial encounter W10.8XXA ; Lumbar contusion, initial encounter S30.0XXA ; Elbow pain, right M25.521 and Thoracic spine pain M54.6 [place] [address] [place] [id number] [address] [place] [phone] Mar, Mood disorder F39 [place] [address] [place] [id number] [address] [place] [phone] Mar, [facility] [address] [facility] [id number] [address] [place] [phone] Mar, Leukocytosis D72.829 [place] [address] [place] [id number] [address] [place] [phone] Mar, [place] [address] [place] [id number] [address] [place] [phone] Mar, Other chronic gastritis with out hemorrhage K29.50 [place] [address] [facility] [id number] [address] [place] [phone] Mar, Uncontrolled type 2 diabetes mellitus with hyperglycemia, without long-term current use of insulin E11.65 ; Low back pain M54.5 ; Other osteoarthritis of spine, cervical region M47.892 ; Panlobular emphysema J43.1 ; Leukocytosis D72.829 and Lumbar back pain with radiculopathy affecting lower extremity M54.16 [place] [address] [place] [id number] [address] [place] [phone] Feb, [facility] [address] [id number] [address] [place] [phone] Feb, [facility] [address] [id number] [address] [place] [phone] Feb, Uncontrolled type 2 diabetes mellitus with hyperglycemia, without long-term current use of insulin E11.65 [facility] [address] [id number] [address] [place] [phone] Feb, Mood disorder F39 [facility] [address] [id number] [address] [place] [phone] Jan, [facility] [address] [id number] [address] [place] [phone] Jan, Mood disorder F39 [facility] [address] [id number] [address] [place] [phone] Jan, [facility] [address] [id number] [address] [place] [phone] Dec, Bipolar disorder, unspecifie d F31.9 [facility] [address] [id number] [address] [place] [phone] Dec, [facility] [address] [id number] [address] [place] [phone] Dec, [facility] [address] [id number] [address] [place] [phone] Dec, [facility] [address] [id number] [address] [place] [phone] Dec, Mood disorder F39 [facility] [address] [id number] [address] [place] [phone] Nov, Bipolar disorder, unspecifie d F31.9 [facility] [address] [id number] [address] [place] [phone] Nov, [facility] [address] [id number] [address] [place] [phone] Nov, Pain in left knee M25.562 ; Other chronic pain G89.29 ; Hyperlipidemia E78.5 ; Leukocytosis D72.829 ; Other osteoarthritis of spine, cervical region M47.892 ; Tobacco use Z72.0 and Uncontrolled type 2 diabetes mellitus with hyperglycemia, without long-term current use of insulin E11.65 [facility] [address] [id number] [address] [place] [phone] Nov, [facility] [address] [id number] [address] [place] [phone] Nov, [facility] [address] [id number] [address] [place] [phone] October, [facility] [address] [id number] [address] [place] [phone] October, Low back pain M54.5 [facility] [address] [id number] [address] [place] [phone] Sep, [facility] [address] [id number] [address] [place] [phone] Sep, [facility] [address] [id number] [address] [place] [phone] Sep, Leukocytosis D72.829 [facility] [address] [id number] [address] [place] [id number] Sep, [facility] [address] [id number] [address] [place] [phone] Sep, [facility] [address] [id number] [address] [place] [phone] Sep, [facility] [address] [id number] [address] [place] [phone] Aug, Low back pain M54.5 [facility] [address] [id number] [address] [place] [phone] Aug, Bipolar disorder, unspecifie d F31.9 [facility] [address] [facility] [id number] [address] [place] [phone] Aug, [facility] [address] [facility] [id number] [address] [place] [phone] Aug, [facility] [address] [facility] [id number] [address] [place] [phone] Aug, Uncontrolled type 2 diabetes mellitus with hyperglycemia, without long-term current use of insulin E11.65 ; Non-healing surgical wound, initial encounter T81.89XA ; Cellulitis of abdominal wall L03.311 ; Hyperlipidemia E78.5 ; Chronic obstructive pulmonary disease, unspecified COPD type J44.9 and Tobacco use Z72.0 [place] [address] [facility] [id number] [address] [place] [phone] Aug, [place] [address] [facility] [id number] [address] [place] [phone] Jul, [facility] [address] [facility] [id number] [address] [place] [phone] Jul, [facility] [address] [facility] [id number] [address] [place] [phone] Jul, Type 2 diabetes mellitus wit h diabetic neuropathy, unspecified long term 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 E11.40 [place] [address] [facility] [id number] [address] [place] [phone] Jun, Bipolar disorder, unspecifie d F31.9 [facility] [address] [facility] [id number] [address] [place] [phone] Jun, [facility] [address] [facility] [id number] [address] [place] [id number] Jun, Bipolar disorder, unspecifie d F31.9 [facility] [address] [facility] [id number] [address] [place] [phone] Jun, Mood disorder F39 [facility] [address] [place] [id number] [address] [place] [phone] Jun, [facility] [address] [facility] [id number] [address] [place] [phone] May, Fissure in skin of foot R23. 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 E11.40 [place] [id number] [facility] [id number] [address] [place] [phone] 04 May, 2017 Mood disorder F39 [place] [address] [facility] [id number] [address] [place] [phone] Apr, [place] [address] [place] [id number] [address] [place] [phone] Apr, Cough R05 and Tobacco use Z7 2.0 [place] [address] [place] [id number] [address] [place] [phone] Apr, Cough R05 and Tobacco use Z7 2.0 [place] [address] [place] [id number] [address] [place] [phone] Apr, Mood disorder F39 [place] [address] [place] [id number] [address] [place] [phone] Apr, Low back pain M54.5 [place] [address] [place] [id number] [address] [place] [phone] 06 Apr, 2017 Uncontrolled type 2 diabetes mellitus with hyperglycemia, without long-term current use of insulin E11.65 [place] [address] [facility] [id number] [address] [place] [phone] Apr, Uncontrolled type 2 diabetes mellitus with hyperglycemia, without long-term current use of insulin E11.65 [place] [address] [place] [id number] [address] [place] [phone] Mar, Bipolar disorder, unspecifie d F31.9 [place] [address] [facility] [id number] [address] [place] [phone] 16 Mar, 2017 [place] [address] [place] [id number] [address] [place] [phone] Mar, Bipolar disorder, unspecifie d F31.9 [facility] [address] [id number] [address] [place] [phone] Mar, Mood disorder F39 [facility] [address] [id number] [address] [place] [phone] Feb, [facility] [address] [id number] [address] [place] [phone] Feb, [facility] [address] [id number] [address] [place] [phone] Feb, [place] [address] [address] [facility] [id number] [address] [place] [phone] Feb, Bipolar disorder, unspecifie d F31.9 [place] [address] [address] [facility] [id number] [address] [place] [phone] Feb, Uncontrolled type 2 diabetes mellitus with hyperglycemia, without long-term current use of insulin E11.65 ; Encounter for immunization Z23 ; Vasovagal syncope R55 and Low back pain M54.5 [place] [address] [address] [facility] [id number] [address] [place] [phone] Jan, Bipolar disorder, unspecifie d F31.9 [place] [id number] [facility] [id number] [address] [place] [phone] Jan, [place] [address] [address] [facility] [id number] [address] [place] [phone] Jan, Fatigue, unspecified type R5 3.83 ; Nocturnal hypoxia G47.34 ; Leukocytosis D72.829 ; Other chronic gastritis without hemorrhage K29.50 ; Uncontrolled type 2 diabetes mellitus with hyperglycemia, without long-term current use of insulin E11.65 ; Alternating constipation and diarrhea R19.8 and Chronic obstructive pulmonary disease, unspecified COPD type J44.9 [place] [id number] [facility] [id number] [address] [place] [phone] Jan, [place] [address] [address] [facility] [id number] [address] [place] [phone] Jan, Leukocytosis D72.829 [facility] [address] [id number] [address] [place] [phone] Jan, Mood disorder F39 [facility] [address] [id number] [address] [place] [phone] Dec, Bipolar disorder, unspecifie d F31.9 [facility] [address] [id number] [address] [place] [phone] Dec, [facility] [address] [id number] [address] [place] [phone] Dec, Acute gastritis without blee ding K29.00 [facility] [address] [id number] [address] [place] [phone] Dec, Leukocytosis D72.829 [facility] [address] [id number] [address] [place] [phone] Dec, [facility] [address] [id number] [address] [place] [phone] Dec, Dental examination Z01.20 [facility] [address] [id number] [address] [place] [id number] Dec, [facility] [address] [id number] [address] [place] [phone] Dec, Leukocytosis D72.829 [facility] [address] [facility] [id number] [address] [place] [phone] Dec, Uncontrolled type 2 diabetes mellitus with hyperglycemia, without long-term current use of insulin E11.65 [facility] [address] [id number] [address] [place] [phone] Nov, Dental examination Z01.20 [facility] [address] [id number] [address] [place] [phone] Nov, [facility] [address] [id number] [address] [place] [phone] Nov, Major depressive disorder, r ecurrent episode, moderate F33.1 [place] N [facility] [id number] [address] [place] [phone] Nov, Leukocytosis D72.829 [facility] [address] [facility] [id number] [address] [place] [phone] Nov, Mood disorder F39 [place] [address] [address] [facility] [id number] [address] [place] [phone] Nov, Other osteoarthritis of spin e, cervical region M47.892 and Uncontrolled type 2 diabetes mellitus with hyperglycemia, without long-term current use of insulin E11.65 [place] [address] [address] [facility] [id number] [address] [place] [phone] Nov, Leukocytosis D72.829 and Sapphire vated serum glucose R73.9 [place] [address] [address] [place] [id number] [address] [place] [phone] October, Elevated serum glucose R73.9 [place] [address] [address] [facility] [id number] [address] [place] [phone] October, Mood disorder F39 [place] [address] [address] [facility] [id number] [address] [place] [phone] Sep, Major depressive disorder, r ecurrent episode, moderate F33.1 [place] [address] [address] [facility] [id number] [address] [place] [phone] Sep, Mood disorder F39 [place] [address] [address] [facility] [id number] [address] [place] [phone] Aug, [place] [address] [address] [facility] [id number] [address] [place] [phone] Jul, Major depressive disorder, r ecurrent episode, moderate F33.1 [place] [address] [address] [facility] [id number] [address] [place] [phone] Jul, Mood disorder F39 [place] [address] [address] [place] [id number] [address] [place] [phone] Jul, [place] [address] [address] [place] [id number] [place] [phone] Jul, History of [place] (myocardial in farction) I25.2 ; Hyperlipidemia E78.5 ; Prediabetes R73.09 ; Chronic obstructive pulmonary disease, unspecified COPD type J44.9 and Tobacco use Z72.0 [place] [address] [id number] Jun, [place] [address] [address] Jun, Mood disorder F39 [place] [address] [phone] Jun, [place] [address] [phone] May, Major depressive disorder, r ecurrent episode, moderate F33.1 and Primary insomnia F51.01 [place] [address] [address] May, Mood disorder F39 [place] [address] [phone] Apr, [place] [address] [id number] Apr, Mood disorder F39 [place] [address] [address] [place] [id number] [address] [place] [phone] Apr, [place] [address] [address] Apr, [place] [address] [address] Apr, Chronic obstructive pulmonar y disease, unspecified COPD type J44.9 and Non-seasonal allergic rhinitis due to other allergic trigger J30.89 [place] [address] [id number] Apr, Mood disorder F39 [facility] [address] [id number] [address] [place] [phone] Apr, Major depressive disorder, r ecurrent episode, moderate F33.1 and PTSD (post-traumatic stress disorder) F43.10 [facility] [address] [id number] [address] [place] [phone] Apr, [facility] [address] [facility] [id number] [address] [place] [phone] Apr, [facility] [address] [facility] [id number] [address] [place] [phone] Apr, Chest pain, unspecified type R07.9 ; Chronic obstructive pulmonary disease, unspecified COPD type J44.9 ; Hyperlipidemia, unspecified hyperlipidemia type E78.5 and Tobacco use Z72.0 [facility] [address] [facility] [id number] [address] [place] [phone] Mar, Mood disorder F39 [facility] [address] [id number] [address] [place] [phone] Mar, Mood disorder F39 [facility] [address] [facility] [id number] [address] [place] [phone] Mar, Other osteoarthritis of spin e, cervical region M47.892 [facility] [address] [id number] [address] [place] [phone] Mar, Tear of right rotator cuff, unspecified tear extent M75.101 [facility] [address] [id number] [address] [place] [phone] Mar, [facility] [address] [facility] [id number] [address] [place] [phone] Mar, Bipolar II disorder F31.81 [facility] [address] [id number] [address] [place] [phone] Mar, [facility] [address] [facility] [id number] [address] [place] [phone] Feb, Impingement syndrome of righ t shoulder M75.41 ; Tear of right rotator cuff, unspecified tear extent M75.101 and Loose body in right elbow M24.021 [facility] [address] [id number] [address] [place] [phone] Jan, [place] [address] [id number] [address] [place] [phone] Jan, [place] [address] [id number] [address] [place] [address] Jan, Prediabetes R73.09 ; Other c hronic pain G89.29 and Pain in right shoulder M25.511 [place] [address] [id number] [address] [place] [phone] Dec, [place] [address] [id number] [address] [place] [phone] Dec, Heartburn R12 and Chest disc omfort R07.89 [place] [address] [id number] [address] [place] [phone] Dec, Impingement syndrome of righ t shoulder M75.41 and 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, 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 [place] [address]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
[2019-11-19] MEDS ORDERED: proPOfol 200 MG/20 ML (DIPRIVAN) VIAL IV ONE (10:32)
[2019-11-19] MEDS ORDERED: MIDAZOLAM 2 MG/2 ML (VERSED) VIAL ONE (10:32)
[2019-11-19] MEDS ORDERED: HURRICAINE EXT TUBE (BENZOCAINE) ONE (10:33)
--- NOTE | 2019-11-19 10:34 | Progress Note-Pre Operative ---
Pre-Operative Progress Note H&P Reviewed The H&P was reviewed, patient examined and no changes noted. Date Seen by Provider: Nov 19, 2019 Time Seen by Provider: 10: Date H&P Reviewed: Nov 19, 2019 Time H&P Reviewed: 10:30 Pre-Operative Diagnosis: fe def anemia, occult +stool YESICA WOLFE DO Nov 19, 2019 10:34
--- OUTSIDE RECORDS SUMMARY | 2019-11-19 10:40 | XMS REPORT | Continuity of Care Document ---
Author Organization Unknown Address Unknown Phone Unavailable Allergies Active Description Code Type Severity Reaction Onset Reported/Identified Relationship to Patient Clinical Status Yes Penicillins [id number] Drug Aller gy Severe N/A 07/05/2017 Yes Penicillins [id number] Drug Aller gy Severe CARDIAC ARREST 11/12/2019 Yes Tetracyclines [id number] Graham g Allergy Moderate N/V 11/12/2019 Yes ampicillin [id number] Drug Allerg y Mild N/V, GI UPSET 11/12/2019 Yes erythromycin base [id number] Drug Allergy Mild N/V 11/12/2019 Medications There is no data. Problems Date Dx Coded Attending Type Code Diagnosis Diagnosed By 05/04/1343 FELIPA WEBER, MAN Dale Ot M75.101 UNSP ROTATR-CUFF TEAR/RUPTR OF RIGHT LEWIS 05/04/1343 FELIPA WEBER, MAN Dale Ot M75.20 BICIPITAL TENDINITIS, UNSPECIFIED SHOULD 05/04/1504 YESICA WOLFE DO Ot D50. 9 IRON DEFICIENCY ANEMIA, UNSPECIFIED 05/04/1504 YESICA WOLFE DO Ot Z01.818 ENCOUNTER FOR OTHER PREPROCEDURAL EXAMIN 05/04/1504 YESICA WOFLE DO Ot Z20.828 CONTACT W AND EXPOSURE TO OTH VIRAL COMM 12/01/2014 PARISA CARD Ot 786.09 12/01/2014 PARISA CARD Ot 786.50 12/10/2014 PARISA CARD Ot 786.09 12/10/2014 PARISA CARD Ot 786.50 12/22/2014 PARISA CARD Ot 786.09 12/22/2014 PARISA CARD Ot 786.50 12/22/2014 SURYA CABAN MD Ot 786. 09 12/22/2014 SURYA CABAN MD Ot 786. 50 12/25/2014 SURYA CABAN MD Ot 786. 09 12/25/2014 SURYA CABAN MD Ot 786. 50 01/27/2015 PARISA CARD Ot 786.09 01/27/2015 PARISA CARD Ot 786.50 01/27/2015 SURYA CABAN MD Ot 786. 09 01/27/2015 SURYA CABAN MD Ot 786. 50 01/27/2015 DORIS LAYTON MD Ot 721 .0 01/27/2015 DORIS LAYTON MD N Ot 724.02 03/02/2015 SURYA CABAN MD Ot 786. 09 03/02/2015 SURYA CABAN MD Ot 786. 50 03/02/2015 DORIS LAYTON MD Ot 721 .0 03/02/2015 DORIS LAYTON MD N Ot 724.02 03/06/2015 SURYA CABAN MD Ot 786. 09 03/06/2015 SURYA CABAN MD Ot 786. 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 09 RESPIRATORY ABNORM NEC 10/14/2015 SURYA CABAN MD Ot 786. 50 CHEST PAIN NOS 10/14/2015 DORIS LAYTON MD Ot R59 .0 LOCALIZED ENLARGED LYMPH NODES 10/14/2015 DORIS LAYTON MD Ot H53 .2 DIPLOPIA 10/14/2015 DORIS LAYTON MD Ot L02.11 CUTANEOUS ABSCESS OF NECK 10/14/2015 DORIS LAYTON MD Ot H53 .2 DIPLOPIA 10/14/2015 SURYA CABAN MD Ot 786. 09 RESPIRATORY ABNORM NEC 10/14/2015 SURYA CABAN MD Ot 786. 50 CHEST PAIN NOS 10/14/2015 SURYA CABAN MD Ot 786. 09 RESPIRATORY ABNORM NEC 10/14/2015 SURYA CABAN MD Ot 786. 50 CHEST PAIN NOS 10/14/2015 DORIS LAYTON MD Ot 721 .0 CERVICAL SPONDYLOSIS 10/14/2015 DORIS LAYTON MD Ot 724.02 SPINAL STENOSIS, LUMBAR REG, W/OUT NEURO 12/31/2015 DORIS LAYTON MD Ot 721 .0 CERVICAL SPONDYLOSIS 12/31/2015 DORIS LAYTON MD Ot 724.02 SPINAL STENOSIS, LUMBAR REG, W/OUT NEURO 12/31/2015 SURYA CABAN MD Ot 786. 09 RESPIRATORY ABNORM NEC 12/31/2015 SURYA CABAN MD Ot 786. 50 CHEST PAIN NOS 12/31/2015 DORIS LAYTON MD Ot L02.11 CUTANEOUS ABSCESS OF NECK 12/31/2015 DORIS LAYTON MD Ot H53 .2 DIPLOPIA 12/31/2015 DORIS LAYTON MD Ot R59 .0 LOCALIZED ENLARGED LYMPH NODES 02/09/2016 SURYA CABAN MD Ot 786. 09 RESPIRATORY ABNORM NEC 02/09/2016 SURYA CABAN MD Ot 786. 50 CHEST PAIN NOS 02/09/2016 DORIS LAYTON MD Ot 721 .0 CERVICAL SPONDYLOSIS 02/09/2016 DORIS LAYTON MD Ot 724.02 SPINAL STENOSIS, LUMBAR REG, W/OUT NEURO 02/09/2016 DORIS LAYTON MD Ot L02.11 CUTANEOUS ABSCESS OF NECK 02/09/2016 DORIS LAYTON MD Ot R59 .0 LOCALIZED ENLARGED LYMPH NODES 02/09/2016 DORIS LAYTON MD Ot H53 .2 DIPLOPIA 02/11/2016 DORIS LAYTON MD Ot L02.11 CUTANEOUS ABSCESS OF NECK 02/11/2016 DORIS LAYTON MD Ot H53 .2 DIPLOPIA 02/11/2016 DORIS LAYTON MD Ot R59 .0 LOCALIZED ENLARGED LYMPH NODES 02/11/2016 Ot M75.101 UN SP ROTATR-CUFF TEAR/RUPTR OF RIGHT LEWIS 02/11/2016 Ot M75.101 UN SP ROTATR-CUFF TEAR/RUPTR OF RIGHT LE[place]IS 02/11/2016 Ot M75.101 UN SP ROTATR-CUFF TEAR/RUPTR OF RIGHT LE[place] 03/01/2016 DORIS LAYTON MD Ot L02.11 CUTANEOUS ABSCESS OF NECK 03/01/2016 DORIS LAYTON MD Ot R59 .0 LOCALIZED ENLARGED LYMPH NODES 03/01/2016 DORIS LAYTON MD Ot H53 .2 DIPLOPIA 03/01/2016 Ot M75.101 UN SP ROTATR-CUFF TEAR/RUPTR OF RIGHT LEWIS 03/21/2016 MOHINI BARLOW A 723.1 CERVICALGIA 03/21/2016 MOHINI BARLOW A M54.2 CERVICALGIA 03/23/2016 SURYA CABAN MD Ot 786. 09 RESPIRATORY ABNORM NEC 03/23/2016 SURYA CABAN MD Ot 786. 50 CHEST PAIN NOS 03/23/2016 DORIS LAYTON MD Ot 721 .0 CERVICAL SPONDYLOSIS 03/23/2016 DORIS LAYTON MD Ot 724.02 SPINAL STENOSIS, LUMBAR REG, W/OUT NEURO 03/23/2016 DORIS LAYTON MD Ot L02.11 CUTANEOUS ABSCESS OF NECK 03/23/2016 DORIS LAYTON MD Ot R59 .0 LOCALIZED ENLARGED LYMPH NODES 03/23/2016 DORIS LAYTON MD Ot H53 .2 DIPLOPIA 03/23/2016 Ot M75.101 UN SP ROTATR-CUFF TEAR/RUPTR OF RIGHT LE[place]IS 03/23/2016 DORIS LAYTON MD Ot M47.892 OTHER SPONDYLOSIS, CERVICAL REGION 03/24/2016 DORIS LAYTON MD Ot M47.892 OTHER SPONDYLOSIS, CERVICAL REGION 04/07/2016 DORIS LAYTON MD Ot M47.892 OTHER SPONDYLOSIS, CERVICAL REGION 05/19/2016 JT FERNANDEZ DO Ot E66. 9 OBESITY, UNSPECIFIED 05/19/2016 JT FERNANDEZ DO Ot F41. 9 ANXIETY DISORDER, UNSPECIFIED 05/19/2016 JT FERNANDEZ DO Ot I20. 9 ANGINA PECTORIS, UNSPECIFIED 05/19/2016 JT FERNANDEZ DO Ot J44. 9 CHRONIC OBSTRUCTIVE PULMONARY DISEASE, U 05/19/2016 JT FERNANDEZ DO Ot J45.909 UNSPECIFIED ASTHMA, UNCOMPLICATED 05/19/2016 JT FERNANDEZ DO Ot Z72. 0 TOBACCO USE 06/01/2016 MAN LEO 723.4 BRACHIAL NEURITIS OR RADICULITIS NOS 06/01/2016 MAN LEO M54.12 RADICULOPATHY, CERVICAL REGION 06/02/2016 JT FERNANDEZ DO Ot E66. 9 OBESITY, UNSPECIFIED 06/02/2016 JT FERNANDEZ DO Ot F41. 9 ANXIETY DISORDER, UNSPECIFIED 06/02/2016 JT FERNANDEZ DO Ot I20. 9 ANGINA PECTORIS, UNSPECIFIED 06/02/2016 JT FERNANDEZ DO Ot J44. 9 CHRONIC OBSTRUCTIVE PULMONARY DISEASE, U 06/02/2016 JT FERNANDEZ DO Ot J45.909 UNSPECIFIED ASTHMA, UNCOMPLICATED 06/02/2016 JT FERNANDEZ DO Ot Z72. 0 TOBACCO USE 06/03/2016 HUMZA, LARRY L 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 Ot R10.11 RIGHT UPPER QUADRANT PAIN 06/07/2016 HUMZA, LARRY L 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 Ot R10.11 RIGHT UPPER QUADRANT PAIN 06/08/2016 HUMZA, LARRY L 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 Ot R10.11 RIGHT UPPER QUADRANT PAIN 06/09/2016 HUMZA, LARRY L 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 Ot R10.11 RIGHT UPPER QUADRANT PAIN 06/09/2016 HUMZA, LARRY L 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 Ot R10.11 RIGHT UPPER QUADRANT PAIN 06/09/2016 HUMZA, LARRY L 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 Ot R10.11 RIGHT UPPER QUADRANT PAIN 06/16/2016 HUMZA, LARRY L 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 Ot R10.11 RIGHT UPPER QUADRANT PAIN 06/23/2016 GALINA WALKER MD Ot K21.9 GASTRO-ESOPHAGEAL REFLUX DISEASE WITHOUT 06/23/2016 GALINA WALKER MD Ot Z01.81 8 ENCOUNTER FOR OTHER PREPROCEDURAL EXAMIN 06/29/2016 SURYA CABAN MD Ot 786. 09 RESPIRATORY ABNORM NEC 06/29/2016 SURYA CABAN MD Ot 786. 50 CHEST PAIN NOS 06/29/2016 DORIS LAYTON MD Ot 721 .0 CERVICAL SPONDYLOSIS 06/29/2016 DORIS LAYTON MD Ot 724.02 SPINAL STENOSIS, LUMBAR REG, W/OUT NEURO 06/29/2016 DORIS LAYTON MD Ot L02.11 CUTANEOUS ABSCESS OF NECK 06/29/2016 DORIS LAYTON MD Ot R59 .0 LOCALIZED ENLARGED LYMPH NODES 06/29/2016 DORIS LAYTON MD, Ot H53 .2 DIPLOPIA 06/29/2016 Ot M75.101 UN SP ROTATR-CUFF TEAR/RUPTR OF RIGHT LEWIS 06/29/2016 DORIS LAYTON MD Ot M47.892 OTHER SPONDYLOSIS, CERVICAL REGION 06/29/2016 JT FERNANDEZ DO Ot E66. 9 OBESITY, UNSPECIFIED 06/29/2016 JT FERNANDEZ DO Ot F41. 9 ANXIETY DISORDER, UNSPECIFIED 06/29/2016 JT FERNANDEZ DO, Ot I20. 9 ANGINA PECTORIS, UNSPECIFIED 06/29/2016 JT FERNANDEZ DO, Ot J44. 9 CHRONIC OBSTRUCTIVE PULMONARY DISEASE, U 06/29/2016 JT FERNANDEZ DO, Ot J45.909 UNSPECIFIED ASTHMA, UNCOMPLICATED 06/29/2016 JT FERNANDEZ DO, Ot Z72. 0 TOBACCO USE 06/29/2016 CINDY CHINGIN Arik 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 Ot R10.11 RIGHT UPPER QUADRANT PAIN 06/29/2016 CINDY CHINGIN L 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 Ot R10.11 RIGHT UPPER QUADRANT PAIN 06/29/2016 GALINA WALKER MD Ot E11.9 TYPE 2 DIABETES MELLITUS WITHOUT COMPLIC 06/29/2016 GALINA WALKER MD Ot E78.00 PURE HYPERCHOLESTEROLEMIA, UNSPECIFIED 06/29/2016 GALINA WALKER MD Ot I10 ESSENTIAL (PRIMARY) HYPERTENSION 06/29/2016 GALINA WALKER MD Ot I25.2 OLD MYOCARDIAL INFARCTION 06/29/2016 GALINA WALKER MD, Ot J44.9 CHRONIC OBSTRUCTIVE PULMONARY DISEASE, U 06/29/2016 GALINA WALKER MD Ot K21.0 GASTRO-ESOPHAGEAL REFLUX DISEASE WITH ES 06/29/2016 GALINA WALKER MD Ot K29.70 GASTRITIS, UNSPECIFIED, WITHOUT BLEEDING 06/29/2016 GALINA WALKER MD, Ot K44.9 DIAPHRAGMATIC HERNIA WITHOUT OBSTRUCTION 06/29/2016 GALINA WALKER MD Ot K63.5 POLYP OF COLON 06/29/2016 GALINA WALKER MD Ot K64.1 SECOND DEGREE HEMORRHOIDS 06/29/2016 GALINA WALKER MD, Ot Z12.11 ENCOUNTER FOR SCREENING FOR MALIGNANT NE 06/29/2016 GALINA WALKER MD, Ot Z86.73 PRSNL HX OF TIA (TIA), AND CEREB INFRC W 06/30/2016 GALINA WALKER MD, Ot E11.9 TYPE 2 [...] DIAPHRAGMATIC HERNIA WITHOUT OBSTRUCTION 06/30/2016 GALINA WALKER MD, Ot K63.5 POLYP OF COLON 06/30/2016 GALINA WALKER MD Ot K64.1 SECOND DEGREE HEMORRHOIDS 06/30/2016 GALINA WALKER MD Ot Z12.11 ENCOUNTER FOR SCREENING FOR MALIGNANT NE 06/30/2016 GALINA WALKER MD Ot Z86.73 PRSNL HX OF TIA (TIA), AND CEREB INFRC W 07/01/2016 GALINA WALKER MD Ot E11.9 TYPE 2 DIABETES MELLITUS WITHOUT COMPLIC 07/01/2016 GALINA WALKER MD Ot E78.00 PURE HYPERCHOLESTEROLEMIA, UNSPECIFIED 07/01/2016 GALINA WALKER MD Ot I10 ESSENTIAL (PRIMARY) HYPERTENSION 07/01/2016 GALINA WALKER MD, Ot I25.2 OLD MYOCARDIAL INFARCTION 07/01/2016 GALINA WALKER MD, Ot J44.9 CHRONIC OBSTRUCTIVE PULMONARY DISEASE, U 07/01/2016 GALINA WALKER MD, Ot K21.0 GASTRO-ESOPHAGEAL REFLUX DISEASE WITH ES 07/01/2016 GALINA WALKER MD, Ot K29.70 GASTRITIS, UNSPECIFIED, WITHOUT BLEEDING 07/01/2016 GALINA WALKER MD, Ot K44.9 DIAPHRAGMATIC HERNIA WITHOUT OBSTRUCTION 07/01/2016 GALINA WALKER MD, Ot K63.5 POLYP OF COLON 07/01/2016 GALINA WALKER MD, Ot K64.1 SECOND DEGREE HEMORRHOIDS 07/01/2016 GALINA WALKER MD, Ot Z12.11 ENCOUNTER FOR SCREENING FOR MALIGNANT NE 07/01/2016 GALINA WALKER MD, Ot Z86.73 PRSNL HX OF TIA (TIA), AND CEREB INFRC W 07/12/2016 MAGDA DIAZ MD, FACC FACP CCDS Ot 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 07/12/2016 OJE WEBER FACC, ALI FACP CCDS Ot I45.19 OTHER RIGHT BUNDLE-BRANCH BLOCK 07/12/2016 MAGDA DIAZ MD, FACC FACP CCDS Ot J44.9 CHRONIC OBSTRUCTIVE PULMONARY DISEASE, U 07/12/2016 JOE WEBER FACC, MAGDA FACP CCDS Ot R06.09 OTHER FORMS OF DYSPNEA 07/12/2016 JOE WEBER FACC, MAGDA FACP CCDS Ot R07.89 OTHER CHEST PAIN 07/12/2016 MAGDA DIAZ MD, FACC FACP CCDS Ot Z72.0 TOBACCO USE 07/12/2016 JOE WEBER FACC, ALI FACP CCDS Ot Z79.899 OTHER GROUP HOME (CURRENT) DRUG THERAPY 07/12/2016 MAGDA DIAZ MD, FACC FACP CCDS Ot Z82.49 FAMILY HX OF ISCHEM HEART DIS AND OTH DI 07/12/2016 MAGDA DIAZ MD, FACC FACP CCDS Ot Z86.73 PRSNL HX OF TIA (TIA), AND CEREB INFRC W 07/14/2016 GALINA WALKER MD, Ot E11.9 TYPE 2 DIABETES MELLITUS WITHOUT COMPLIC 07/14/2016 GALINA WALKER MD, Ot E78.00 PURE HYPERCHOLESTEROLEMIA, UNSPECIFIED 07/14/2016 GALINA WALKER MD Ot I10 ESSENTIAL (PRIMARY) HYPERTENSION 07/14/2016 GALINA [...] Ot K63.5 POLYP OF COLON 07/14/2016 GALINA WLAKER MD, Ot K64.1 SECOND DEGREE HEMORRHOIDS 07/14/2016 GALINA WALKER MD, Ot Z12.11 ENCOUNTER FOR SCREENING FOR MALIGNANT NE 07/14/2016 GALINA WALKER MD, Ot Z86.73 PRSNL HX OF TIA (TIA), AND CEREB INFRC W 07/14/2016 MAGDA DIAZ MD, FACC FACP CCDS Ot 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 07/14/2016 JOE WEBER FACC, ALI FACP CCDS Ot I45.19 OTHER RIGHT BUNDLE-BRANCH BLOCK 07/14/2016 JOE WEBER FACC, MAGDA FACP CCDS Ot J44.9 CHRONIC OBSTRUCTIVE PULMONARY DISEASE, U 07/14/2016 JOE WEBER FACC, ALI FACP CCDS Ot R06.09 OTHER FORMS OF DYSPNEA 07/14/2016 JOE WEBER FACC, MAGDA FACP CCDS Ot R07.89 OTHER CHEST PAIN 07/14/2016 JOE WEBER FACC, ALI FACP CCDS Ot Z72.0 TOBACCO USE 07/14/2016 JOE WEBER FACC, ALI FACP CCDS Ot Z79.899 OTHER GROUP HOME (CURRENT) DRUG THERAPY 07/14/2016 MAGDA DIAZ MD, FACC FACP CCDS Ot Z82.49 FAMILY HX OF ISCHEM HEART DIS AND OTH DI 07/14/2016 MAGDA DIAZ MD, FACC FACP CCDS Ot Z86.73 PRSNL HX OF TIA (TIA), AND CEREB INFRC W 07/19/2016 SURYA CABAN MD Ot 786. 09 RESPIRATORY ABNORM NEC 07/19/2016 SURYA CABAN MD Ot 786. 50 CHEST PAIN NOS 07/19/2016 DORIS LAYTON MD Ot 721 .0 CERVICAL SPONDYLOSIS 07/19/2016 DORIS LAYTON MD Ot 724.02 SPINAL STENOSIS, LUMBAR REG, W/OUT NEURO 07/19/2016 DORIS LAYTON MD Ot L02.11 CUTANEOUS ABSCESS OF NECK 07/19/2016 DORIS LAYTON MD, Ot R59 .0 LOCALIZED ENLARGED LYMPH NODES 07/19/2016 DORIS LAYTON MD, Ot H53 .2 DIPLOPIA 07/19/2016 Ot M75.101 UN SP ROTATR-CUFF TEAR/RUPTR OF RIGHT LEWIS 07/19/2016 DORIS LAYTON MD, Ot M47.892 OTHER SPONDYLOSIS, CERVICAL REGION 07/19/2016 JT FERNANDEZ DO, Ot E66. 9 OBESITY, UNSPECIFIED 07/19/2016 JT FERNANDEZ DO, Ot F41. 9 ANXIETY DISORDER, UNSPECIFIED 07/19/2016 JT FERNANDEZ DO, Ot I20. 9 ANGINA PECTORIS, UNSPECIFIED 07/19/2016 JT FERNANDEZ DO, Ot J44. 9 CHRONIC OBSTRUCTIVE PULMONARY DISEASE, U 07/19/2016 JT FERNANDEZ DO, Ot J45.909 UNSPECIFIED ASTHMA, UNCOMPLICATED 07/19/2016 JT FERNANDEZ DO, Ot Z72. 0 TOBACCO USE 07/19/2016 LARRY 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 Ot R10.11 RIGHT UPPER QUADRANT PAIN 07/19/2016 CINDY CHINGIN L 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 Ot R10.11 RIGHT UPPER QUADRANT PAIN 07/20/2016 SURYA CABAN MD Ot 786. 09 RESPIRATORY ABNORM NEC 07/20/2016 SURYA CABAN MD Ot 786. 50 CHEST PAIN NOS 07/20/2016 DORIS LAYTON MD Ot 721 .0 CERVICAL SPONDYLOSIS 07/20/2016 DORIS LAYTON MD Ot 724.02 SPINAL STENOSIS, LUMBAR REG, W/OUT NEURO 07/20/2016 DORIS LAYTON MD Ot L02.11 CUTANEOUS ABSCESS OF NECK 07/20/2016 DORIS LAYTON MD Ot R59 .0 LOCALIZED ENLARGED LYMPH NODES 07/20/2016 DORIS LAYTON MD, Ot H53 .2 DIPLOPIA 07/20/2016 Ot M75.101 UN SP ROTATR-CUFF TEAR/RUPTR OF RIGHT [place]IS 07/20/2016 KINJAL WEBER, DORIS Butcher Ot M47.892 OTHER SPONDYLOSIS, CERVICAL REGION 07/20/2016 JT FERNANDEZ DO Ot E66. 9 OBESITY, UNSPECIFIED 07/20/2016 JT FERNANDEZ DO Ot F41. 9 ANXIETY DISORDER, UNSPECIFIED 07/20/2016 JT FERNANDEZ DO Ot I20. 9 ANGINA PECTORIS, UNSPECIFIED 07/20/2016 JT FERNANDEZ DO, Ot J44. 9 CHRONIC OBSTRUCTIVE PULMONARY DISEASE, U 07/20/2016 JT FERNANDEZ DO, Ot J45.909 UNSPECIFIED ASTHMA, UNCOMPLICATED 07/20/2016 JT FERNANDEZ DO Ot Z72. 0 TOBACCO USE 07/20/2016 LARRY 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 Ot R10.11 RIGHT UPPER QUADRANT PAIN 07/20/2016 LARRY 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 Ot R10.11 RIGHT UPPER QUADRANT PAIN 07/20/2016 JT FERNANDEZ DO Ot G47. 33 OBSTRUCTIVE SLEEP APNEA (ADULT) (PEDIATR 07/21/2016 EMELIA GLOVER SENIOR JAVA ENGINEER Ot I72.4 ANEURYSM OF ARTERY OF LOWER EXTREMITY 07/21/2016 EMELIA GLOVER SENIOR JAVA ENGINEER Ot I97.610 POSTPROC HEMOR OF A CIRC SYS ORG FOLLOWI 07/21/2016 EMELIA GLOVER SENIOR JAVA ENGINEER Ot I72.4 ANEURYSM OF ARTERY OF LOWER EXTREMITY 07/21/2016 EMELIA GLOVER SENIOR JAVA ENGINEER Ot I97.610 POSTPROC HEMOR OF A CIRC SYS ORG FOLLOWI 07/25/2016 SURYA CABAN MD Ot 786. 09 RESPIRATORY ABNORM NEC 07/25/2016 SURYA CABAN MD Ot 786. 50 CHEST PAIN NOS 07/25/2016 DORIS LAYTON MD Ot 721 .0 CERVICAL SPONDYLOSIS 07/25/2016 DORIS LAYTON MD Ot 724.02 SPINAL STENOSIS, LUMBAR REG, W/OUT NEURO 07/25/2016 DORIS LAYTON MD Ot L02.11 CUTANEOUS ABSCESS OF NECK 07/25/2016 DORIS LAYTON MD Ot R59 .0 LOCALIZED ENLARGED LYMPH NODES 07/25/2016 DORIS LAYTON MD Ot H53 .2 DIPLOPIA 07/25/2016 Ot M75.101 UN SP ROTATR-CUFF TEAR/RUPTR OF RIGHT LEWIS 07/25/2016 DORIS LAYTON MD Ot M47.892 OTHER SPONDYLOSIS, CERVICAL REGION 07/25/2016 JT FERNANDEZ DO, Ot E66. 9 OBESITY, UNSPECIFIED 07/25/2016 JT FERNANDEZ DO, Ot F41. 9 ANXIETY DISORDER, UNSPECIFIED 07/25/2016 JT FERNANDEZ DO, Ot I20. 9 ANGINA PECTORIS, UNSPECIFIED 07/25/2016 JT FERNANDEZ DO, Ot J44. 9 CHRONIC OBSTRUCTIVE PULMONARY DISEASE, U 07/25/2016 JT FERNANDEZ DO, Ot J45.909 UNSPECIFIED ASTHMA, UNCOMPLICATED 07/25/2016 JT FERNANDEZ DO, Ot Z72. 0 TOBACCO USE 07/25/2016 JT FERNANDEZ DO, Ot G47. 33 OBSTRUCTIVE SLEEP APNEA (ADULT) (PEDIATR 07/25/2016 LARRY 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 Ot R10.11 RIGHT UPPER QUADRANT PAIN 07/25/2016 LARRY 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 Ot R10.11 RIGHT UPPER QUADRANT PAIN 07/25/2016 EMELIA GLOVER Ot I72.4 ANEURYSM OF ARTERY OF LOWER EXTREMITY 07/25/2016 EMELIA GLOVER Ot I97.610 POSTPROC HEMOR OF A CIRC SYS ORG FOLLOWI 07/26/2016 SURYA CABAN MD Ot 786. 09 RESPIRATORY ABNORM NEC 07/26/2016 SURYA CABAN MD Ot 786. 50 CHEST PAIN NOS 07/26/2016 DORIS LAYTON MD Ot 721 .0 CERVICAL SPONDYLOSIS 07/26/2016 DORIS LAYTON MD Ot 724.02 SPINAL STENOSIS, LUMBAR REG, W/OUT NEURO 07/26/2016 DORIS LAYTON MD Ot L02.11 CUTANEOUS ABSCESS OF NECK 07/26/2016 DORIS LAYTON MD Ot R59 .0 LOCALIZED ENLARGED LYMPH NODES 07/26/2016 DORIS LAYTON MD, Ot H53 .2 DIPLOPIA 07/26/2016 Ot M75.101 UN SP ROTATR-CUFF TEAR/RUPTR OF RIGHT LEWIS 07/26/2016 DORIS LAYTON MD Ot M47.892 OTHER SPONDYLOSIS, CERVICAL REGION 07/26/2016 JT FERNANDEZ DO Ot E66. 9 OBESITY, UNSPECIFIED 07/26/2016 JT FERNANDEZ DO Ot F41. 9 ANXIETY DISORDER, UNSPECIFIED 07/26/2016 JT FERNANDEZ DO Ot I20. 9 ANGINA PECTORIS, UNSPECIFIED 07/26/2016 JT FERNANDEZ DO Ot J44. 9 CHRONIC OBSTRUCTIVE PULMONARY DISEASE, U 07/26/2016 JT FERNANDEZ DO, Ot J45.909 UNSPECIFIED ASTHMA, UNCOMPLICATED 07/26/2016 JT FERNANDEZ DO Ot Z72. 0 TOBACCO USE 07/26/2016 JT FERNANDEZ DO Ot G47. 33 OBSTRUCTIVE SLEEP APNEA (ADULT) (PEDIATR 07/26/2016 LARRY 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 Ot R10.11 RIGHT UPPER QUADRANT PAIN 07/26/2016 LARRY 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 Ot R10.11 RIGHT UPPER QUADRANT PAIN 07/26/2016 EMELIA GLOVER SENIOR JAVA ENGINEER Ot I72.4 ANEURYSM OF ARTERY OF LOWER EXTREMITY 07/26/2016 EMELIA GLOVER SENIOR JAVA ENGINEER Ot I97.610 POSTPROC HEMOR OF A CIRC SYS ORG FOLLOWI 07/26/2016 JOE WEBER FACC, MAGDA FACP CCDS Ot I73.9 PERIPHERAL VASCULAR DISEASE, UNSPECIFIED 07/27/2016 JOE WEBER FACC, MAGDA FACP CCDS Ot I73.9 PERIPHERAL VASCULAR DISEASE, UNSPECIFIED 07/27/2016 JOE WEBER FACC, MAGDA FACP CCDS Ot E66.09 OTHER OBESITY DUE TO EXCESS CALORIES 07/27/2016 JOE WEBER FACC, MAGDA FACP CCDS Ot E78.4 OTHER HYPERLIPIDEMIA 07/27/2016 JOE WEBER FACC, MAGDA FACP CCDS Ot I10 ESSENTIAL (PRIMARY) HYPERTENSION 07/27/2016 JOE WEBER FACC, MAGDA FACP CCDS Ot J43.8 OTHER EMPHYSEMA 07/27/2016 JOE WEBER FACC, MAGDA FACP CCDS Ot R06.02 SHORTNESS OF BREATH 07/27/2016 JOE WEBER FACC, MAGDA GUILLENP CCDS Ot R07.89 OTHER CHEST PAIN 07/27/2016 JOE WEBER FACC, MAGDA GUILLENP CCDS Ot Z72.0 TOBACCO USE 07/27/2016 MAGDA DIAZ MD, FACCP CCDS Ot Z86.79 PERSONAL HISTORY OF OTHER DISEASES OF TH 08/05/2016 JT FERNANDEZ DO Ot G47. 33 OBSTRUCTIVE SLEEP APNEA (ADULT) (PEDIATR 08/05/2016 EMELIA GLOVER Ot I72.4 ANEURYSM OF ARTERY OF LOWER EXTREMITY 08/05/2016 EMELIA GLOVER Ot I97.610 POSTPROC HEMOR OF A CIRC SYS ORG FOLLOWI 08/11/2016 EMELIA GLOVER Ot T81.719A COMPLICATION OF UNSP ARTERY FOLLOWING A 08/15/2016 SURYA CABAN MD Ot 786. 09 RESPIRATORY ABNORM NEC 08/15/2016 SURYA CABAN MD Ot 786. 50 CHEST PAIN NOS 08/15/2016 DORIS LAYTON MD Ot 721 .0 CERVICAL SPONDYLOSIS 08/15/2016 DORIS LAYTON MD Ot 724.02 SPINAL STENOSIS, LUMBAR REG, W/OUT NEURO 08/15/2016 DORIS LAYTON MD Ot L02.11 CUTANEOUS ABSCESS OF NECK 08/15/2016 DORIS LAYTON MD Ot R59 .0 LOCALIZED ENLARGED LYMPH NODES 08/15/2016 DORIS LAYTON MD Ot H53 .2 DIPLOPIA 08/15/2016 Ot M75.101 UN SP ROTATR-CUFF TEAR/RUPTR OF RIGHT LEWIS 08/15/2016 DORIS LAYTON MD Ot M47.892 OTHER SPONDYLOSIS, CERVICAL REGION 08/15/2016 JT FERNANDEZ DO Ot E66. 9 OBESITY, UNSPECIFIED 08/15/2016 JT FERNANDEZ DO Ot F41. 9 ANXIETY DISORDER, UNSPECIFIED 08/15/2016 JT FERNANDEZ DO Ot I20. 9 ANGINA PECTORIS, UNSPECIFIED 08/15/2016 JT FERNANDEZ DO Ot J44. 9 CHRONIC OBSTRUCTIVE PULMONARY DISEASE, U 08/15/2016 JT FERNANDEZ DO Ot J45.909 UNSPECIFIED ASTHMA, UNCOMPLICATED 08/15/2016 JT FERNANDEZ DO Ot Z72. 0 TOBACCO USE 08/15/2016 JT FERNANDEZ DO, Ot G47. 33 OBSTRUCTIVE SLEEP APNEA (ADULT) (PEDIATR 08/15/2016 LARRY CHING APRN Ot R10.11 RIGHT UPPER QUADRANT PAIN 08/15/2016 LARRY 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 Ot R10.11 RIGHT UPPER QUADRANT PAIN 08/15/2016 JOE WEBER FACC, MAGDA FACP CCDS Ot I73.9 PERIPHERAL VASCULAR DISEASE, UNSPECIFIED 08/15/2016 JOE WEBER FACC, ALI FACP CCDS Ot E66.09 OTHER OBESITY DUE TO EXCESS CALORIES 08/15/2016 JOE WEBER FACC, ALI FACP CCDS Ot E78.4 OTHER HYPERLIPIDEMIA 08/15/2016 JOE WEBER FACC, ALI FACP CCDS Ot I10 ESSENTIAL (PRIMARY) HYPERTENSION 08/15/2016 JOE WEBER FACC, ALI FACP CCDS Ot J43.8 OTHER EMPHYSEMA 08/15/2016 JOE WEBER FACC, ALI FACP CCDS Ot R06.02 SHORTNESS OF BREATH 08/15/2016 JOE WEBER FACC, ALI FACP CCDS Ot R07.89 OTHER CHEST PAIN 08/15/2016 JOE WEBER FACC, ALI FACP CCDS Ot Z72.0 TOBACCO USE 08/15/2016 JOE WEBER FACC, ALI FACP CCDS Ot Z86.79 PERSONAL HISTORY OF OTHER DISEASES OF TH 08/15/2016 EMELIA GLOVER SENIOR JAVA ENGINEER Ot I72.4 ANEURYSM OF ARTERY OF LOWER EXTREMITY 08/15/2016 EMELIA GLOVER SENIOR JAVA ENGINEER Ot I97.610 POSTPROC HEMOR OF A CIRC SYS ORG FOLLOWI 08/15/2016 EMELIA GLOVER SENIOR JAVA ENGINEER Ot T81.719A COMPLICATION OF UNSP ARTERY FOLLOWING A 08/15/2016 NATHANIEL MONSIVAIS MD Ot M50. 13 CERVICAL DISC DISORDER W RADICULOPATHY, 08/15/2016 NATHANIEL MONSIVAIS MD Ot Z79.899 OTHER GROUP HOME (CURRENT) DRUG THERAPY 08/24/2016 NATHANIEL MONSIVAIS MD Ot M50. 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 AUTOMOTIVE ELECTRICIAN HELPER (CURRENT) DRUG THERAPY 08/25/2016 EMELIA GLOVER SENIOR JAVA ENGINEER Ot T81.719A COMPLICATION OF UNSP ARTERY FOLLOWING A 08/29/2016 JOE WEBER FACC, ALI FACP CCDS Ot I73.9 PERIPHERAL VASCULAR DISEASE, UNSPECIFIED 08/29/2016 JOE WEBER FACC, ALI FACP CCDS Ot E66.09 OTHER OBESITY DUE TO EXCESS CALORIES 08/29/2016 JOE WEBER FAC, ALI FACP CCDS Ot E78.4 OTHER HYPERLIPIDEMIA 08/29/2016 JOE WEBER FAC, ALI FACP CCDS Ot I10 ESSENTIAL (PRIMARY) HYPERTENSION 08/29/2016 JOE WEBER FAC, ALI FACP CCDS Ot J43.8 OTHER EMPHYSEMA 08/29/2016 JOE WEBER FAC, ALI FACP CCDS Ot R06.02 SHORTNESS OF BREATH 08/29/2016 JOE WEBER FAC, ALI FACP CCDS Ot R07.89 OTHER CHEST PAIN 08/29/2016 JOE WEBER [facility], ALI FACP CCDS Ot Z72.0 TOBACCO USE 08/29/2016 JOE WEBER [facility], ALI FACP CCDS Ot Z86.79 PERSONAL HISTORY OF OTHER DISEASES OF TH 09/23/2016 NATHANIEL MONSIVAIS MD, Ot M50. 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 13 CERVICAL DISC DISORDER W RADICULOPATHY, 09/29/2016 NATHANIEL MONSIVAIS MD, Ot Z79.899 OTHER AUTOMOTIVE ELECTRICIAN HELPER (CURRENT) DRUG THERAPY 10/06/2016 MAN JOHNSON MD Ot F17.200 NICOTINE DEPENDENCE, UNSPECIFIED, UNCOMP 10/06/2016 MAN JOHNSON MD Ot J31 .2 CHRONIC PHARYNGITIS 10/18/2016 SURYA CABAN MD Ot 786. 09 RESPIRATORY ABNORM NEC 10/18/2016 SURYA CABAN MD Ot 786. 50 CHEST PAIN NOS 10/18/2016 DORIS LAYTON MD Ot 721 .0 CERVICAL SPONDYLOSIS 10/18/2016 DORIS LAYTON MD Ot 724.02 SPINAL STENOSIS, LUMBAR REG, W/OUT NEURO 10/18/2016 DORIS LAYTON MD Ot L02.11 CUTANEOUS ABSCESS OF NECK 10/18/2016 DORIS LAYTON MD Ot R59 .0 LOCALIZED ENLARGED LYMPH NODES 10/18/2016 DORIS LAYTON MD Ot H53 .2 DIPLOPIA 10/18/2016 Ot M75.101 UN SP ROTATR-CUFF TEAR/RUPTR OF RIGHT [place] 10/18/2016 DORIS LAYTON MD Ot M47.892 OTHER SPONDYLOSIS, CERVICAL REGION 10/18/2016 JT FERNANDEZ DO Ot E66. 9 OBESITY, UNSPECIFIED 10/18/2016 JT FERNANDEZ DO Ot F41. 9 ANXIETY DISORDER, UNSPECIFIED 10/18/2016 JT FERNANDEZ DO, Ot I20. 9 ANGINA PECTORIS, UNSPECIFIED 10/18/2016 JT FERNANDEZ DO, Ot J44. 9 CHRONIC OBSTRUCTIVE PULMONARY DISEASE, U 10/18/2016 JT FERNANDEZ DO Ot J45.909 UNSPECIFIED ASTHMA, UNCOMPLICATED 10/18/2016 JT FERNANDEZ DO Ot Z72. 0 TOBACCO USE 10/18/2016 JT FERNANDEZ DO Ot G47. 33 OBSTRUCTIVE SLEEP APNEA (ADULT) (PEDIATR 10/18/2016 LARRY 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 Ot R10.11 RIGHT UPPER QUADRANT PAIN 10/18/2016 LARRY 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 Ot R10.11 RIGHT UPPER QUADRANT PAIN 10/18/2016 JOE WEBER FACC, MAGDA FACP CCDS Ot I73.9 PERIPHERAL VASCULAR DISEASE, UNSPECIFIED 10/18/2016 JOE WEBER FACC, ALI FACP CCDS Ot E66.09 OTHER OBESITY DUE TO EXCESS CALORIES 10/18/2016 JOE WEBER FACC, MAGDA FACP CCDS Ot E78.4 OTHER HYPERLIPIDEMIA 10/18/2016 JOE WEBER FACC, MAGDA FACP CCDS Ot I10 ESSENTIAL (PRIMARY) HYPERTENSION 10/18/2016 JOE WEBER FACC, MAGDA FACP CCDS Ot J43.8 OTHER EMPHYSEMA 10/18/2016 JOE WEBER FACC, MAGDA FACP CCDS Ot R06.02 SHORTNESS OF BREATH 10/18/2016 JOE WEBER FACC, MAGDA FACP CCDS Ot R07.89 OTHER CHEST PAIN 10/18/2016 JOE WEBER FACC, ALI FACP CCDS Ot Z72.0 TOBACCO USE 10/18/2016 JOE WEBER [facility] CCDS Ot Z86.79 PERSONAL HISTORY OF OTHER DISEASES OF TH 10/18/2016 EMELIA GLOVER L SENIOR JAVA ENGINEER Ot I72.4 ANEURYSM OF ARTERY OF LOWER EXTREMITY 10/18/2016 ADALBERTO EMELIA L SENIOR JAVA ENGINEER Ot I97.610 POSTPROC HEMOR OF A CIRC SYS ORG FOLLOWI 10/18/2016 NANYEMELIA CARY L SENIOR JAVA ENGINEER Ot T81.719A COMPLICATION OF UNSP ARTERY FOLLOWING A 10/18/2016 BAIMA EMELIA L SENIOR JAVA ENGINEER Ot E78.4 OTHER HYPERLIPIDEMIA 10/18/2016 BAIMA, EMELIA L SENIOR JAVA ENGINEER Ot I 10 ESSENTIAL (PRIMARY) HYPERTENSION 10/18/2016 BAIMA EMELIA L SENIOR JAVA ENGINEER Ot 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 10/18/2016 ELIZABETH WEBER, MAN Dale Ot F17.200 NICOTINE DEPENDENCE, UNSPECIFIED, UNCOMP 10/18/2016 ELIZABETH WEBER, MAN Dale Ot J31 .2 CHRONIC PHARYNGITIS 10/19/2016 BAIEVA CARYHER L SENIOR JAVA ENGINEER Ot E78.4 OTHER HYPERLIPIDEMIA 10/19/2016 BAIMA, EMELIA L SENIOR JAVA ENGINEER Ot I 10 ESSENTIAL (PRIMARY) HYPERTENSION 10/19/2016 BAIMA, EMELIA L SENIOR JAVA ENGINEER Ot 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 10/19/2016 BAIMA, EMELIA L SENIOR JAVA ENGINEER Ot R06.02 SHORTNESS OF BREATH 10/19/2016 BAIMA EMELIA L SENIOR JAVA ENGINEER Ot Z72.0 TOBACCO USE 11/03/2016 BAIMA, EMELIA L SENIOR JAVA ENGINEER Ot E78.4 OTHER HYPERLIPIDEMIA 11/03/2016 BAIMA, EMELIA L SENIOR JAVA ENGINEER Ot I 10 ESSENTIAL (PRIMARY) HYPERTENSION 11/03/2016 BAIMA, EMELIA L SENIOR JAVA ENGINEER Ot 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 11/03/2016 BAIMA, EMELIA L SENIOR JAVA ENGINEER Ot R06.02 SHORTNESS OF BREATH 11/03/2016 BAIMA, EMELIA L SENIOR JAVA ENGINEER Ot Z72.0 TOBACCO USE 12/02/2016 KINJAL WEBER, DORIS Butcher Ot M47.892 OTHER SPONDYLOSIS, CERVICAL REGION 04/14/2017 SURYA CABAN MD Ot 786. 09 RESPIRATORY ABNORM NEC 04/14/2017 SURYA CABAN MD Ot 786. 50 CHEST PAIN NOS 04/14/2017 DORIS LAYTON MD Ot 721 .0 CERVICAL SPONDYLOSIS 04/14/2017 DORIS LAYTON MD Ot 724.02 SPINAL STENOSIS, LUMBAR REG, W/OUT NEURO 04/14/2017 DORIS LAYTON MD Ot L02.11 CUTANEOUS ABSCESS OF NECK 04/14/2017 DORIS LAYTON MD Ot R59 .0 LOCALIZED ENLARGED LYMPH NODES 04/14/2017 DORIS LAYTON MD Ot H53 .2 DIPLOPIA 04/14/2017 Ot M75.101 UN SP ROTATR-CUFF TEAR/RUPTR OF RIGHT LEWIS 04/14/2017 DORIS LAYTON MD Ot M47.892 OTHER SPONDYLOSIS, CERVICAL REGION 04/14/2017 JT FERNANDEZ DO Ot E66. 9 OBESITY, UNSPECIFIED 04/14/2017 JT FERNANDEZ DO Ot F41. 9 ANXIETY DISORDER, UNSPECIFIED 04/14/2017 JT FERNANDEZ DO Ot I20. 9 ANGINA PECTORIS, UNSPECIFIED 04/14/2017 JT FERNANDEZ DO, Ot J44. 9 CHRONIC OBSTRUCTIVE PULMONARY DISEASE, U 04/14/2017 JT FERNANDEZ DO, Ot J45.909 UNSPECIFIED ASTHMA, UNCOMPLICATED 04/14/2017 JT FERNANDEZ DO Ot Z72. 0 TOBACCO USE 04/14/2017 JT FERNANDEZ DO, Ot G47. 33 OBSTRUCTIVE SLEEP APNEA (ADULT) (PEDIATR 04/14/2017 LARRY 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 Ot R10.11 RIGHT UPPER QUADRANT PAIN 04/14/2017 LARRY 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 Ot R10.11 RIGHT UPPER QUADRANT PAIN 04/14/2017 JOE WEBER FACC, MAGDA SUN CCDS Ot I73.9 PERIPHERAL VASCULAR DISEASE, UNSPECIFIED 04/14/2017 JOE WEBER FACC, MAGDA GUILLENP CCDS Ot E66.09 OTHER OBESITY DUE TO EXCESS CALORIES 04/14/2017 JOE WEBER FACC, MAGDA GUILLENP CCDS Ot E78.4 OTHER HYPERLIPIDEMIA 04/14/2017 JOE WEBER FACC, MAGDA SUN CCDS Ot I10 ESSENTIAL (PRIMARY) HYPERTENSION 04/14/2017 JOE WEBER FACC, ALI FACP CCDS Ot J43.8 OTHER EMPHYSEMA 04/14/2017 JOE GUILLEN, ALI FACP CCDS Ot R06.02 SHORTNESS OF BREATH 04/14/2017 JOE WEBER FACC, ALI FACP CCDS Ot R07.89 OTHER CHEST PAIN 04/14/2017 JOE WEBER FACC, ALI FACP CCDS Ot Z72.0 TOBACCO USE 04/14/2017 JOE WEBER FACC, ALI FACP CCDS Ot Z86.79 PERSONAL HISTORY OF OTHER DISEASES OF TH 04/14/2017 NANYMA EMELIA L SENIOR JAVA ENGINEER Ot I72.4 ANEURYSM OF ARTERY OF LOWER EXTREMITY 04/14/2017 ADALBERTO EMELIA L SENIOR JAVA ENGINEER Ot I97.610 POSTPROC HEMOR OF A CIRC SYS ORG FOLLOWI 04/14/2017 EVA GLOVERHER L SENIOR JAVA ENGINEER Ot T81.719A COMPLICATION OF UNSP ARTERY FOLLOWING A 04/14/2017 NANYMA EMELIA L SENIOR JAVA ENGINEER Ot E78.4 OTHER HYPERLIPIDEMIA 04/14/2017 NANYMA EMELIA L SENIOR JAVA ENGINEER Ot I 10 ESSENTIAL (PRIMARY) HYPERTENSION 04/14/2017 NANYMA EMELIA L SENIOR JAVA ENGINEER Ot 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 04/14/2017 NANYMA EMELIA L SENIOR JAVA ENGINEER Ot 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 04/14/2017 ELIZABETH WEBER, MAN Dale Ot F17.200 NICOTINE DEPENDENCE, UNSPECIFIED, UNCOMP 04/14/2017 ELIZABETH WEBER, MAN Dale Ot J31 .2 CHRONIC PHARYNGITIS 04/14/2017 EVA GLOVERHER L SENIOR JAVA ENGINEER Ot E78.4 OTHER HYPERLIPIDEMIA 04/14/2017 ADALBERTO EMELIA L SENIOR JAVA ENGINEER Ot I 10 ESSENTIAL (PRIMARY) HYPERTENSION 04/14/2017 NANYMA EMELIA L SENIOR JAVA ENGINEER Ot 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 04/14/2017 ADALBERTO EMELIA L SENIOR JAVA ENGINEER Ot R06.02 SHORTNESS OF BREATH 04/14/2017 ADALBERTO EMELIA L SENIOR JAVA ENGINEER Ot Z72.0 TOBACCO USE 04/14/2017 KINJAL WEBER, DORIS Butcher Ot M47.892 OTHER SPONDYLOSIS, CERVICAL REGION 05/02/2017 NANYMA EMELIA L SENIOR JAVA ENGINEER Ot E78.4 OTHER HYPERLIPIDEMIA 05/02/2017 BAIMA EMELIA L SENIOR JAVA ENGINEER Ot I 10 ESSENTIAL (PRIMARY) HYPERTENSION 07/05/2017 GALINA WALKER MD Ot D17.9 BENIGN LIPOMATOUS NEOPLASM, UNSPECIFIED 07/05/2017 GALINA WALKER MD Ot Z01.81 8 ENCOUNTER FOR OTHER PREPROCEDURAL EXAMIN 07/06/2017 GALINA WALKER MD, Ot D17.9 BENIGN LIPOMATOUS NEOPLASM, UNSPECIFIED 07/06/2017 GALINA WALKER MD, Ot Z01.81 8 ENCOUNTER FOR OTHER PREPROCEDURAL EXAMIN 07/13/2017 GALINA WALKER MD, Ot D17.1 BENIGN LIPOMATOUS NEOPLASM OF SKIN, SUBC 07/13/2017 GALINA WALKER MD Ot E11.43 TYPE 2 DIABETES W DIABETIC AUTONOMIC (PO 07/13/2017 GALINA WALKER MD Ot E78.00 PURE HYPERCHOLESTEROLEMIA, UNSPECIFIED 07/13/2017 GALINA WALKER MD Ot F17.21 0 NICOTINE DEPENDENCE, CIGARETTES, UNCOMPL 07/13/2017 GALINA WALKER MD Ot F32.9 MAJOR DEPRESSIVE DISORDER, SINGLE EPISOD 07/13/2017 GALINA WALKER MD Ot I10 ESSENTIAL (PRIMARY) HYPERTENSION 07/13/2017 GALINA WALKER MD Ot I25.2 OLD MYOCARDIAL INFARCTION 07/13/2017 GALINA WALKER MD Ot J44.9 CHRONIC OBSTRUCTIVE PULMONARY DISEASE, U 07/13/2017 GALINA WALKER MD, Ot K21.9 GASTRO-ESOPHAGEAL REFLUX DISEASE WITHOUT 07/13/2017 GALINA WALKER MD Ot Z79.52 GROUP HOME (CURRENT) USE OF SYSTEMIC STER 07/13/2017 GALINA WALKER MD Ot Z79.89 9 OTHER GROUP HOME (CURRENT) DRUG THERAPY 07/17/2017 GALINA WALKER MD, Ot D17.1 BENIGN LIPOMATOUS NEOPLASM OF SKIN, SUBC 07/17/2017 GALINA WALKER MD, Ot E11.43 TYPE 2 DIABETES W DIABETIC AUTONOMIC (PO 07/17/2017 GALINA WALKER MD Ot E78.00 PURE HYPERCHOLESTEROLEMIA, UNSPECIFIED 07/17/2017 GALINA WALKER MD Ot F17.21 0 NICOTINE DEPENDENCE, CIGARETTES, UNCOMPL 07/17/2017 GALINA WALKER MD Ot F32.9 MAJOR DEPRESSIVE DISORDER, SINGLE EPISOD 07/17/2017 GALINA WALKER MD Ot I10 ESSENTIAL (PRIMARY) HYPERTENSION 07/17/2017 GALINA WALKER MD, Ot I25.2 OLD MYOCARDIAL INFARCTION 07/17/2017 GALINA WALKER MD, Ot J44.9 CHRONIC OBSTRUCTIVE PULMONARY DISEASE, U 07/17/2017 GALINA WALKER MD, Ot K21.9 GASTRO-ESOPHAGEAL REFLUX DISEASE WITHOUT 07/17/2017 GALINA WALKER MD, Ot Z79.52 GROUP HOME (CURRENT) USE OF SYSTEMIC STER 07/17/2017 GALINA WALKER MD, Ot Z79.89 9 OTHER GROUP HOME (CURRENT) DRUG THERAPY 08/16/2017 JOE GUILLENC, ALI FACP CCDS Ot E11.9 TYPE 2 DIABETES MELLITUS WITHOUT COMPLIC 08/16/2017 JOE GUILLENC, ALI FACP CCDS Ot E66.9 OBESITY, UNSPECIFIED 08/16/2017 JOE WEBER FACC, ALI FACP CCDS Ot G47.34 IDIO SLEEP RELATED NONOBSTRUCTIVE ALVEOL 08/16/2017 JOE WEBER FACC, ALI FACP CCDS Ot 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 08/16/2017 JOE WEBER FACC, ALI FACP CCDS Ot J43.8 OTHER EMPHYSEMA 08/16/2017 JOE WEBER FACC, ALI FACP CCDS Ot R06.02 SHORTNESS OF BREATH 08/16/2017 JOE WEBER FACC, ALI FACP CCDS Ot R07.89 OTHER CHEST PAIN 08/16/2017 JOE WEBER FACC, ALI FACP CCDS Ot R42 DIZZINESS AND GIDDINESS 08/16/2017 JOE GUILLENC, ALI FACP CCDS Ot Z72.0 TOBACCO USE 08/21/2017 MAN ALVARES MD Ot E11.622 TYPE 2 DIABETES MELLITUS WITH OTHER SKIN 08/21/2017 MAN ALVARES MD, Ot E66.01 MORBID (SEVERE) OBESITY DUE TO EXCESS CA 08/21/2017 MAN ALVARES MD, Ot J44 .9 CHRONIC OBSTRUCTIVE PULMONARY DISEASE, U 08/21/2017 MAN ALVARES MD, Ot L76.34 POSTPROC SEROMA OF SKIN, SUBCU FOLLOWING 08/21/2017 MAN ALVARES MD, Ot L98.492 NON-PRS CHRONIC ULCER OF SKIN OF SITES W 08/21/2017 MAN ALVARES MD, Ot T65.222A TOXIC EFFECT OF TOBACCO CIGARETTES, SELF 08/21/2017 MAN ALVARES MD, Ot T81.31XA DISRUPTION OF EXTERNAL OPERATION (SURGIC 08/28/2017 DORIS LAYTON MD Ot I25.84 CORONARY ATHEROSCLEROSIS DUE TO CALCIFIE 08/28/2017 DORIS LAYTON MD Ot J43 .9 EMPHYSEMA, UNSPECIFIED 08/28/2017 DORIS LAYTON MD Ot J84.10 PULMONARY FIBROSIS, UNSPECIFIED 08/28/2017 DORIS LAYTON MD Ot I25.84 CORONARY ATHEROSCLEROSIS DUE TO CALCIFIE 08/28/2017 DORIS LAYTON MD Ot J43 .9 EMPHYSEMA, UNSPECIFIED 08/28/2017 DORIS LAYTON MD Ot J84.10 PULMONARY FIBROSIS, UNSPECIFIED 08/28/2017 MAN ALVARES MD, Ot E11.622 TYPE 2 DIABETES MELLITUS WITH OTHER SKIN 08/28/2017 MAN ALVARES MD, Ot E66.01 MORBID (SEVERE) OBESITY DUE TO EXCESS CA 08/28/2017 MAN ALVARES MD, Ot J44 .9 CHRONIC OBSTRUCTIVE PULMONARY DISEASE, U 08/28/2017 MAN [...] EXCESS CA 08/29/2017 MAN ALVARES MD, Ot J44 .9 CHRONIC OBSTRUCTIVE PULMONARY DISEASE, U 08/29/2017 MAN ALVARES MD, Ot L98.492 NON-PRS CHRONIC ULCER OF SKIN OF SITES W 08/29/2017 MAN ALVARES MD, Ot T65.222A TOXIC EFFECT OF TOBACCO CIGARETTES, SELF 08/29/2017 MAN ALVARES MD, Ot T81.31XA DISRUPTION OF EXTERNAL OPERATION (SURGIC 08/29/2017 MAN ALVARES MD, Ot Z68.35 BODY MASS INDEX (BMI) 35.0-35.9, ADULT 09/01/2017 DYLAN PRADHAN MD Ot E11.6 22 TYPE 2 DIABETES MELLITUS WITH OTHER SKIN 09/01/2017 DYLAN PRADHAN MD Ot E66.0 1 MORBID (SEVERE) OBESITY DUE TO EXCESS CA 09/01/2017 DYLAN PRADHAN MD Ot J44.9 CHRONIC OBSTRUCTIVE PULMONARY DISEASE, U 09/01/2017 DYLAN PRADHAN MD Ot L98.4 92 NON-PRS CHRONIC ULCER OF SKIN OF SITES W 09/01/2017 DYLAN PRADHAN MD, Ot T65.222A TOXIC EFFECT OF TOBACCO CIGARETTES, SELF 09/01/2017 DYLAN PRADHAN MD, Ot T81.31XA DISRUPTION OF EXTERNAL OPERATION (SURGIC 09/01/2017 DYLAN PRADHAN MD Ot Z68.3 5 BODY MASS INDEX (BMI) 35.0-35.9, ADULT 09/05/2017 MAN ALVARES MD, Ot E11.622 TYPE 2 DIABETES MELLITUS WITH OTHER SKIN 09/05/2017 MAN ALVARES MD, Ot E66.01 MORBID (SEVERE) OBESITY DUE TO EXCESS CA 09/05/2017 MAN ALVARES MD, Ot J44 .9 CHRONIC OBSTRUCTIVE PULMONARY DISEASE, U 09/05/2017 MAN ALVARES MD, Ot L98.492 NON-PRS CHRONIC ULCER OF SKIN OF SITES W 09/05/2017 MAN ALVARES MD, Ot T65.222A TOXIC EFFECT OF TOBACCO CIGARETTES, SELF 09/05/2017 MAN ALVARES MD, Ot T81.31XA DISRUPTION OF EXTERNAL OPERATION (SURGIC 09/05/2017 MAN ALVARES MD Ot Z68.35 BODY MASS INDEX (BMI) 35.0-35.9, ADULT 09/10/2017 MAN ALVARES MD, Ot E11.622 TYPE 2 DIABETES MELLITUS WITH OTHER SKIN 09/10/2017 MAN ALVARES MD Ot E66.01 MORBID (SEVERE) OBESITY DUE TO EXCESS CA 09/10/2017 MAN ALVARES MD, Ot J44 .9 CHRONIC OBSTRUCTIVE PULMONARY DISEASE, U 09/10/2017 MAN ALVARES MD, Ot L98.492 NON-PRS CHRONIC ULCER OF SKIN OF SITES W 09/10/2017 MAN ALVARES MD, Ot T65.222A TOXIC EFFECT OF TOBACCO CIGARETTES, SELF 09/10/2017 MAN ALVARES MD Ot T81.31XA DISRUPTION OF EXTERNAL OPERATION (SURGIC 09/10/2017 MAN ALVARES MD, Ot Z68.35 BODY MASS INDEX (BMI) 35.0-35.9, ADULT 09/12/2017 MAN ALVARES MD, Ot E11.622 TYPE 2 DIABETES MELLITUS WITH OTHER SKIN 09/12/2017 MAN ALVARES MD, Ot E66.01 MORBID (SEVERE) OBESITY DUE TO EXCESS CA 09/12/2017 MAN ALVARES MD, Ot J44 .9 CHRONIC OBSTRUCTIVE PULMONARY DISEASE, U 09/12/2017 MAN [...] EXCESS CA 09/12/2017 MAN ALVARES MD, Ot J44 .9 CHRONIC OBSTRUCTIVE PULMONARY DISEASE, U 09/12/2017 MAN [...] EXCESS CA 09/19/2017 MAN ALVARES MD, Ot J44 .9 CHRONIC OBSTRUCTIVE PULMONARY DISEASE, U 09/19/2017 MAN ALVARES MD, Ot L98.492 NON-PRS CHRONIC ULCER OF SKIN OF SITES W 09/19/2017 MAN ALVARES MD, Ot T81.31XA DISRUPTION OF EXTERNAL OPERATION (SURGIC 09/19/2017 MAN ALVARES MD, Ot Z68.35 BODY MASS INDEX (BMI) 35.0-35.9, ADULT 09/27/2017 MAN ALVARES MD, Ot E11.622 TYPE 2 DIABETES MELLITUS WITH OTHER SKIN 09/27/2017 MAN ALVARES MD, Ot E66.01 MORBID (SEVERE) OBESITY DUE TO EXCESS CA 09/27/2017 MAN ALVARES MD, Ot J44 .9 CHRONIC OBSTRUCTIVE PULMONARY DISEASE, U 09/27/2017 MAN ALVARES MD, Ot L98.492 NON-PRS CHRONIC ULCER OF SKIN OF SITES W 09/27/2017 MAN ALVARES MD, Ot T81.31XA DISRUPTION OF EXTERNAL OPERATION (SURGIC 09/27/2017 MAN ALVARES MD, Ot Z68.35 BODY MASS INDEX (BMI) 35.0-35.9, ADULT 10/05/2017 MAN ALVARES MD, Ot E11.622 TYPE 2 DIABETES MELLITUS WITH OTHER SKIN 10/05/2017 MAN ALVARES MD, Ot E66.01 MORBID (SEVERE) OBESITY DUE TO EXCESS CA 10/05/2017 MAN ALVARES MD, Ot J44 .9 CHRONIC OBSTRUCTIVE PULMONARY DISEASE, U 10/05/2017 MAN [...] EXCESS CA 10/10/2017 MAN ALVARES MD, Ot J44 .9 CHRONIC OBSTRUCTIVE PULMONARY DISEASE, U 10/10/2017 MAN ALVARES MD, Ot L98.492 NON-PRS CHRONIC ULCER OF SKIN OF SITES W 10/10/2017 MAN ALVARES MD, Ot T81.31XA DISRUPTION OF EXTERNAL OPERATION (SURGIC 10/10/2017 MNA ALVARES MD, Ot Z68.35 BODY MASS INDEX (BMI) 35.0-35.9, ADULT 10/11/2017 MAN ALVARES MD, Ot E11.622 TYPE 2 DIABETES MELLITUS WITH OTHER SKIN 10/11/2017 MAN ALVARES MD, Ot E66.01 MORBID (SEVERE) OBESITY DUE TO EXCESS CA 10/11/2017 MAN ALVARES MD, Ot J44 .9 CHRONIC OBSTRUCTIVE PULMONARY DISEASE, U 10/11/2017 MAN [...] EXCESS CA 10/13/2017 MAN ALVARES MD, Ot J44 .9 CHRONIC OBSTRUCTIVE PULMONARY DISEASE, U 10/13/2017 MAN [...] EXCESS CA 10/17/2017 MAN ALVARES MD, Ot J44 .9 CHRONIC OBSTRUCTIVE PULMONARY DISEASE, U 10/17/2017 MAN [...] EXCESS CA 10/18/2017 MAN ALVARES MD, Ot J44 .9 CHRONIC OBSTRUCTIVE PULMONARY DISEASE, U 10/18/2017 MAN [...] EXCESS CA 10/18/2017 MAN ALVARES MD, Ot J44 .9 CHRONIC OBSTRUCTIVE PULMONARY DISEASE, U 10/18/2017 MAN [...] EXCESS CA 10/19/2017 MAN ALVARES MD, Ot J44 .9 CHRONIC OBSTRUCTIVE PULMONARY DISEASE, U 10/19/2017 MAN [...] EXCESS CA 10/26/2017 MAN ALVARES MD, Ot J44 .9 CHRONIC OBSTRUCTIVE PULMONARY DISEASE, U 10/26/2017 MAN [...] EXCESS CA 10/27/2017 MAN ALVARES MD, Ot J44 .9 CHRONIC OBSTRUCTIVE PULMONARY DISEASE, U 10/27/2017 MAN ALVARES MD, Ot L98.492 NON-PRS CHRONIC ULCER OF SKIN OF SITES W 10/27/2017 MAN ALVARES MD, Ot T81.31XA DISRUPTION OF EXTERNAL OPERATION (SURGIC 10/27/2017 MAN ALVARES MD, Ot Z68.35 BODY MASS INDEX (BMI) 35.0-35.9, ADULT 10/29/2017 MAN ALVAERS MD, Ot E11.621 TYPE 2 DIABETES MELLITUS WITH FOOT ULCER 10/29/2017 MAN ALVARES MD, Ot E66.01 MORBID (SEVERE) OBESITY DUE TO EXCESS CA 10/29/2017 MAN ALVARES MD, Ot J44 .9 CHRONIC OBSTRUCTIVE PULMONARY DISEASE, U 10/29/2017 MAN [...] EXCESS CA 11/01/2017 MAN ALVARES MD, Ot J44 .9 CHRONIC OBSTRUCTIVE PULMONARY DISEASE, U 11/01/2017 MAN [...] EXCESS CA 11/01/2017 MAN ALVARES MD, Ot J44 .9 CHRONIC OBSTRUCTIVE PULMONARY DISEASE, U 11/01/2017 MAN [...] EXCESS CA 11/02/2017 MAN ALVARES MD, Ot J44 .9 CHRONIC OBSTRUCTIVE PULMONARY DISEASE, U 11/02/2017 MAN [...] (SEVERE) OBESITY DUE TO EXCESS CA 11/02/2017 AMN ALVARES MD, Ot J44 .9 CHRONIC OBSTRUCTIVE PULMONARY DISEASE, U 11/02/2017 MAN [...] EXCESS CA 11/07/2017 MAN ALVARES MD, Ot J44 .9 CHRONIC OBSTRUCTIVE PULMONARY DISEASE, U 11/07/2017 MAN ALVARES MD, Ot L98.492 NON-PRS CHRONIC ULCER OF SKIN OF SITES W 11/07/2017 MAN ALVARES MD, Ot T65.222A TOXIC EFFECT OF TOBACCO CIGARETTES, SELF 11/07/2017 MAN AVLARES MD, Ot T81.31XA DISRUPTION OF EXTERNAL OPERATION (SURGIC 11/07/2017 MAN ALVARES MD, Ot Z68.35 BODY MASS INDEX (BMI) 35.0-35.9, ADULT 11/07/2017 JOE WEBER FACC, ALI FACP CCDS Ot F17.210 NICOTINE DEPENDENCE, CIGARETTES, UNCOMPL 11/07/2017 JOE WEBER FACC, ALI FACP CCDS Ot 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 11/07/2017 JOE WEBER FACC, ALI FACP CCDS Ot J44.9 CHRONIC OBSTRUCTIVE PULMONARY DISEASE, U 11/07/2017 JOE WEBER FACC, ALI FACP CCDS Ot M54.12 RADICULOPATHY, CERVICAL REGION 11/07/2017 JOE WEBER FACC, ALI FACP CCDS Ot R06.02 SHORTNESS OF BREATH 11/07/2017 JOE WEBER FACC, ALI FACP CCDS Ot R07.9 CHEST PAIN, UNSPECIFIED 11/07/2017 JOE WEBER FACC, ALI FACP CCDS Ot R09.02 HYPOXEMIA 11/07/2017 JOE WEBER FACC, ALI FACP CCDS Ot R42 DIZZINESS AND GIDDINESS 11/07/2017 JOE WEBER FACC, ALI FACP CCDS Ot Z82.49 FAMILY HX OF ISCHEM HEART DIS AND OTH DI 11/07/2017 JOE WEBER FACC, ALI FACP CCDS Ot Z86.73 PRSNL HX OF TIA (TIA), AND CEREB INFRC W 11/09/2017 MAN ALVARES MD Ot E11.621 TYPE 2 DIABETES MELLITUS WITH FOOT ULCER 11/09/2017 MAN ALVARES MD Ot E66.01 MORBID (SEVERE) OBESITY DUE TO EXCESS CA 11/09/2017 MAN ALVARES MD Ot J44 .9 CHRONIC OBSTRUCTIVE PULMONARY DISEASE, U 11/09/2017 MAN ALVARES MD Ot L98.492 NON-PRS CHRONIC ULCER OF SKIN OF SITES W 11/09/2017 MAN ALVARES MD Ot T81.31XA DISRUPTION OF EXTERNAL OPERATION (SURGIC 11/09/2017 MAN ALVARES MD Ot Z68.35 BODY MASS INDEX (BMI) 35.0-35.9, ADULT 11/09/2017 JOE GUILLEN, ALI FACP CCDS Ot F17.210 NICOTINE DEPENDENCE, CIGARETTES, UNCOMPL 11/09/2017 JOE WEBER FACC, ALI FACP CCDS Ot 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 11/09/2017 JOE WEBER FACC, ALI FACP CCDS Ot J44.9 CHRONIC OBSTRUCTIVE PULMONARY DISEASE, U 11/09/2017 JOE WEBER FACC, ALI FACP CCDS Ot M54.12 RADICULOPATHY, CERVICAL REGION 11/09/2017 JOE WEBER FACC, ALI FACP CCDS Ot R06.02 SHORTNESS OF BREATH 11/09/2017 JOE WEBER FACC, ALI FACP CCDS Ot R07.9 CHEST PAIN, UNSPECIFIED 11/09/2017 JOE WEBER FACC, ALI FACP CCDS Ot R09.02 HYPOXEMIA 11/09/2017 JOE WEBER FACC, ALI FACP CCDS Ot R42 DIZZINESS AND GIDDINESS 11/09/2017 JOE GUILLEN, ALI FACP CCDS Ot Z82.49 FAMILY HX OF ISCHEM HEART DIS AND OTH DI 11/09/2017 JOE WEBER FAC, ALI FACP CCDS Ot Z86.73 PRSNL HX OF TIA (TIA), AND CEREB INFRC W 11/14/2017 JOE WEBER [facility], ALI FACP CCDS Ot 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 11/14/2017 JOE WEBER [facility], ALI FACP CCDS Ot R06.02 SHORTNESS OF BREATH 11/14/2017 MAN ALVARES MD Ot E11.622 TYPE 2 DIABETES MELLITUS WITH OTHER SKIN 11/14/2017 MAN ALVARES MD Ot E66.01 MORBID (SEVERE) OBESITY DUE TO EXCESS CA 11/14/2017 MAN ALVARES MD Ot J44 .9 CHRONIC OBSTRUCTIVE PULMONARY DISEASE, U 11/14/2017 MAN ALVARES MD Ot L98.492 NON-PRS CHRONIC ULCER OF SKIN OF SITES W 11/14/2017 MAN ALVARES MD Ot T65.222A TOXIC EFFECT OF TOBACCO CIGARETTES, SELF 11/14/2017 MAN ALVARES MD Ot T81.31XA DISRUPTION OF EXTERNAL OPERATION (SURGIC 11/14/2017 MAN ALVARES MD Ot Z68.35 BODY MASS INDEX (BMI) 35.0-35.9, ADULT 11/15/2017 MAN ALVARES MD, Ot E11.622 TYPE 2 DIABETES MELLITUS WITH OTHER SKIN 11/15/2017 MAN ALVARES MD, Ot E66.01 MORBID (SEVERE) OBESITY DUE TO EXCESS CA 11/15/2017 MAN ALVARES MD, Ot J44 .9 CHRONIC OBSTRUCTIVE PULMONARY DISEASE, U 11/15/2017 MNA ALVARES MD, Ot L98.492 NON-PRS CHRONIC ULCER OF SKIN OF SITES W 11/15/2017 MAN ALVARES MD, Ot T65.222A TOXIC EFFECT OF TOBACCO CIGARETTES, SELF 11/15/2017 MAN ALVARES MD, Ot T81.31XA DISRUPTION OF EXTERNAL OPERATION (SURGIC 11/17/2017 MAN ALVARES MD, Ot E11.622 TYPE 2 DIABETES MELLITUS WITH OTHER SKIN 11/17/2017 MAN ALVARES MD, Ot E66.01 MORBID (SEVERE) OBESITY DUE TO EXCESS CA 11/17/2017 MAN ALVARES MD, Ot J44 .9 CHRONIC OBSTRUCTIVE PULMONARY DISEASE, U 11/17/2017 MAN [...] ULCER OF SKIN OF SITES W 11/23/2017 MNA ALVARES MD, Ot E11.622 TYPE 2 DIABETES MELLITUS WITH OTHER SKIN 11/23/2017 MAN ALVARES MD, Ot E66.01 MORBID (SEVERE) OBESITY DUE TO EXCESS CA 11/23/2017 MAN ALVARES MD, Ot J44 .9 CHRONIC OBSTRUCTIVE PULMONARY DISEASE, U 11/23/2017 MAN [...] EXCESS CA 11/24/2017 MAN ALVARES MD, Ot J44 .9 CHRONIC OBSTRUCTIVE PULMONARY DISEASE, U 11/24/2017 MAN [...] EXCESS CA 11/29/2017 MAN ALVARES MD, Ot J44 .9 CHRONIC OBSTRUCTIVE PULMONARY DISEASE, U 11/29/2017 MAN [...] EXCESS CA 11/29/2017 MAN ALVARES MD, Ot J44 .9 CHRONIC OBSTRUCTIVE PULMONARY DISEASE, U 11/29/2017 MAN [...] EXCESS CA 12/04/2017 MAN ALVARES MD, Ot J44 .9 CHRONIC OBSTRUCTIVE PULMONARY DISEASE, U 12/04/2017 MAN ALVARES MD, Ot L98.492 NON-PRS CHRONIC ULCER OF SKIN OF SITES W 12/04/2017 MAN ALVARES MD, Ot T65.222A TOXIC EFFECT OF TOBACCO CIGARETTES, SELF 12/04/2017 MAN ALVARES MD, Ot T81.31XA DISRUPTION OF EXTERNAL OPERATION (SURGIC 12/04/2017 MAN ALVARES MD, Ot Z68.35 BODY MASS INDEX (BMI) 35.0-35.9, ADULT 12/04/2017 JOE WEBER FACC, ALI FACP CCDS Ot 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 12/04/2017 JOE WEBER FAC, ALI FACP CCDS Ot R06.02 SHORTNESS OF BREATH 12/08/2017 MAN ALVARES MD, Ot E11.622 TYPE 2 DIABETES MELLITUS WITH OTHER SKIN 12/08/2017 MAN ALVARES MD, Ot E66.01 MORBID (SEVERE) OBESITY DUE TO EXCESS CA 12/08/2017 MAN ALVARES MD, Ot J44 .9 CHRONIC OBSTRUCTIVE PULMONARY DISEASE, U 12/08/2017 MAN [...] EXCESS CA 12/11/2017 MAN ALVARES MD, Ot J44 .9 CHRONIC OBSTRUCTIVE PULMONARY DISEASE, U 12/11/2017 MAN [...] EXCESS CA 12/13/2017 MAN ALVARES MD, Ot J44 .9 CHRONIC OBSTRUCTIVE PULMONARY DISEASE, U 12/13/2017 MAN [...] EXCESS CA 12/14/2017 MAN ALVARES MD, Ot J44 .9 CHRONIC OBSTRUCTIVE PULMONARY DISEASE, U 12/14/2017 MAN [...] EXCESS CA 12/29/2017 MAN ALVARES MD, Ot J44 .9 CHRONIC OBSTRUCTIVE PULMONARY DISEASE, U 12/29/2017 MAN ALVARES MD, Ot L98.492 NON-PRS CHRONIC ULCER OF SKIN OF SITES W 12/29/2017 MAN ALVARES MD Ot T65.222A TOXIC EFFECT OF TOBACCO CIGARETTES, SELF 12/29/2017 MAN ALVARES MD Ot T81.31XA DISRUPTION OF EXTERNAL OPERATION (SURGIC 12/29/2017 MAN ALVARES MD Ot Z68.35 BODY MASS INDEX (BMI) 35.0-35.9, ADULT 02/02/2018 Ot R13.10 DYS PHAGIA, UNSPECIFIED 03/19/2018 SURYA CABAN MD Ot 786. 09 RESPIRATORY ABNORM NEC 03/19/2018 SURYA CABAN MD Ot 786. 50 CHEST PAIN NOS 03/19/2018 DORIS LAYTON MD Ot 721 .0 CERVICAL SPONDYLOSIS 03/19/2018 DORIS LAYTON MD Ot 724.02 SPINAL STENOSIS, LUMBAR REG, W/OUT NEURO 03/19/2018 DORIS LAYTON MD Ot L02.11 CUTANEOUS ABSCESS OF NECK 03/19/2018 DORIS LAYTON MD Ot R59 .0 LOCALIZED ENLARGED LYMPH NODES 03/19/2018 DORIS LAYTON MD Ot H53 .2 DIPLOPIA 03/19/2018 Ot M75.101 UN SP ROTATR-CUFF TEAR/RUPTR OF RIGHT LEWIS 03/19/2018 DORIS LAYTON MD Ot M47.892 OTHER SPONDYLOSIS, CERVICAL REGION 03/19/2018 JT FERNANDEZ DO Ot E66. 9 OBESITY, UNSPECIFIED 03/19/2018 JT FERNANDEZ DO Ot F41. 9 ANXIETY DISORDER, UNSPECIFIED 03/19/2018 JT FERNANDEZ DO Ot I20. 9 ANGINA PECTORIS, UNSPECIFIED 03/19/2018 JT FERNANDEZ DO, Ot J44. 9 CHRONIC OBSTRUCTIVE PULMONARY DISEASE, U 03/19/2018 JT FERNANDEZ DO, Ot J45.909 UNSPECIFIED ASTHMA, UNCOMPLICATED 03/19/2018 JT FERNANDEZ DO Ot Z72. 0 TOBACCO USE 03/19/2018 JT FERNANDEZ DO, Ot G47. 33 OBSTRUCTIVE SLEEP APNEA (ADULT) (PEDIATR 03/19/2018 LARRY CHING APRN Ot R10.11 RIGHT UPPER QUADRANT PAIN 03/19/2018 HUMZA, LARRY L 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 Ot R10.11 RIGHT UPPER QUADRANT PAIN 03/19/2018 JOE WEBER FAC, ALI FACP CCDS Ot I73.9 PERIPHERAL VASCULAR DISEASE, UNSPECIFIED 03/19/2018 JOE WEBER FAC, ALI FACP CCDS Ot E66.09 OTHER OBESITY DUE TO EXCESS CALORIES 03/19/2018 JOE WEBER FACC, ALI FACP CCDS Ot E78.4 OTHER HYPERLIPIDEMIA 03/19/2018 JOE WEBER FAC, ALI FACP CCDS Ot I10 ESSENTIAL (PRIMARY) HYPERTENSION 03/19/2018 JOE WEBER FAC, ALI FACP CCDS Ot J43.8 OTHER EMPHYSEMA 03/19/2018 JOE WEBER FAC, ALI FACP CCDS Ot R06.02 SHORTNESS OF BREATH 03/19/2018 JOE WEBER FAC, ALI FACP CCDS Ot R07.89 OTHER CHEST PAIN 03/19/2018 JOE WEBER FAC, ALI FACP CCDS Ot Z72.0 TOBACCO USE 03/19/2018 JOE WEBER FAC, ALI FACP CCDS Ot Z86.79 PERSONAL HISTORY OF OTHER DISEASES OF TH 03/19/2018 EMELIA GLOVER L SENIOR JAVA ENGINEER Ot I72.4 ANEURYSM OF ARTERY OF LOWER EXTREMITY 03/19/2018 EMELIA GLOVER L SENIOR JAVA ENGINEER Ot I97.610 POSTPROC HEMOR OF A CIRC SYS ORG FOLLOWI 03/19/2018 EMELIA GLOVER SENIOR JAVA ENGINEER Ot T81.719A COMPLICATION OF UNSP ARTERY FOLLOWING A 03/19/2018 EMELIA GLOVER L SENIOR JAVA ENGINEER Ot E78.4 OTHER HYPERLIPIDEMIA 03/19/2018 EMELIA GLOVER L SENIOR JAVA ENGINEER Ot I 10 ESSENTIAL (PRIMARY) HYPERTENSION 03/19/2018 EMELIA GLOVER SENIOR JAVA ENGINEER Ot 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 03/19/2018 ELIZABETH WEBER, MAN Dale Ot F17.200 NICOTINE DEPENDENCE, UNSPECIFIED, UNCOMP 03/19/2018 ELIZABETH WEBER, MAN Dale Ot J31 .2 CHRONIC PHARYNGITIS 03/19/2018 EMELIA GLOVER SENIOR JAVA ENGINEER Ot E78.4 OTHER HYPERLIPIDEMIA 03/19/2018 EMELIA GLOVER SENIOR JAVA ENGINEER Ot I 10 ESSENTIAL (PRIMARY) HYPERTENSION 03/19/2018 EMELIA GLOVER SENIOR JAVA ENGINEER Ot 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 03/19/2018 BAIEMELIA CARY SENIOR JAVA ENGINEER Ot R06.02 SHORTNESS OF BREATH 03/19/2018 NANYEMELIA CARY SENIOR JAVA ENGINEER Ot Z72.0 TOBACCO USE 03/19/2018 KINJAL WEBER, DORIS Butcher Ot M47.892 OTHER SPONDYLOSIS, CERVICAL REGION 03/19/2018 NANYEMELIA CARY SENIOR JAVA ENGINEER Ot E78.4 OTHER HYPERLIPIDEMIA 03/19/2018 NANYEMELIA CARY SENIOR JAVA ENGINEER Ot I 10 ESSENTIAL (PRIMARY) HYPERTENSION 03/19/2018 JOE WEBER FACC, ALI FACP CCDS Ot E11.9 TYPE 2 DIABETES MELLITUS WITHOUT COMPLIC 03/19/2018 JOE WEBER FACC, ALI FACP CCDS Ot E66.9 OBESITY, UNSPECIFIED 03/19/2018 JOE WEBER FACC, ALI FACP CCDS Ot G47.34 IDIO SLEEP RELATED NONOBSTRUCTIVE ALVEOL 03/19/2018 JOE WEBER FACC, ALI FACP CCDS Ot 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 03/19/2018 JOE WEBER FACC, ALI FACP CCDS Ot J43.8 OTHER EMPHYSEMA 03/19/2018 JOE WEBER FACC, ALI FACP CCDS Ot R06.02 SHORTNESS OF BREATH 03/19/2018 JOE WEBER FACC, ALI FACP CCDS Ot R07.89 OTHER CHEST PAIN 03/19/2018 JOE WEBER FACC, ALI FACP CCDS Ot R42 DIZZINESS AND GIDDINESS 03/19/2018 JOE WEBER FACC, ALI FACP CCDS Ot Z72.0 TOBACCO USE 03/19/2018 MAN ALVARES MD Ot E11.622 TYPE 2 DIABETES MELLITUS WITH OTHER SKIN 03/19/2018 MAN ALVARES MD, Ot E66.01 MORBID (SEVERE) OBESITY DUE TO EXCESS CA 03/19/2018 MAN ALVARES MD, Ot J44 .9 CHRONIC OBSTRUCTIVE PULMONARY DISEASE, U 03/19/2018 MAN [...] ATHEROSCLEROSIS DUE TO CALCIFIE 03/19/2018 DORIS LAYTON MD Ot J43 .9 EMPHYSEMA, UNSPECIFIED 03/19/2018 DORIS LAYTON MD Ot J84.10 PULMONARY FIBROSIS, UNSPECIFIED 03/19/2018 MAN ALVARES MD, Ot E11.622 TYPE 2 DIABETES MELLITUS WITH OTHER SKIN 03/19/2018 MAN ALVARES MD, Ot E66.01 MORBID (SEVERE) OBESITY DUE TO EXCESS CA 03/19/2018 MAN ALVARES MD, Ot J44 .9 CHRONIC OBSTRUCTIVE PULMONARY DISEASE, U 03/19/2018 MAN [...] EXCESS CA 03/19/2018 MAN ALVARES MD, Ot J44 .9 CHRONIC OBSTRUCTIVE PULMONARY DISEASE, U 03/19/2018 MAN ALVARES MD, Ot L98.492 NON-PRS CHRONIC ULCER OF SKIN OF SITES W 03/19/2018 MAN ALVARES MD, Ot T65.222A TOXIC EFFECT OF TOBACCO CIGARETTES, SELF 03/19/2018 MAN ALVARES MD, Ot T81.31XA DISRUPTION OF EXTERNAL OPERATION (SURGIC 03/19/2018 MAN ALVARES MD Ot Z68.35 BODY MASS INDEX (BMI) 35.0-35.9, ADULT 03/19/2018 DYLAN PRADHAN MD, Ot E11.6 22 TYPE 2 DIABETES MELLITUS WITH OTHER SKIN 03/19/2018 DYLAN PRADHAN MD Ot E66.0 1 MORBID (SEVERE) OBESITY DUE TO EXCESS CA 03/19/2018 DYLAN PRADHAN MD, Ot J44.9 CHRONIC OBSTRUCTIVE PULMONARY DISEASE, U 03/19/2018 DYLAN PRADHAN MD Ot L98.4 92 NON-PRS CHRONIC ULCER OF SKIN OF SITES W 03/19/2018 DYLAN PRADHAN MD Ot T65.222A TOXIC EFFECT OF TOBACCO CIGARETTES, SELF 03/19/2018 DYLAN PRADHAN MD, Ot T81.31XA DISRUPTION OF EXTERNAL OPERATION (SURGIC 03/19/2018 DYLAN PRADHAN MD Ot Z68.3 5 BODY MASS INDEX (BMI) 35.0-35.9, ADULT 03/19/2018 MAN ALVARES MD, Ot E11.622 TYPE 2 DIABETES MELLITUS WITH OTHER SKIN 03/19/2018 MAN ALVARES MD, Ot E66.01 MORBID (SEVERE) OBESITY DUE TO EXCESS CA 03/19/2018 MAN ALVARES MD, Ot J44 .9 CHRONIC OBSTRUCTIVE PULMONARY DISEASE, U 03/19/2018 MAN [...] EXCESS CA 03/19/2018 MAN ALVARES MD, Ot J44 .9 CHRONIC OBSTRUCTIVE PULMONARY DISEASE, U 03/19/2018 MAN ALVARES MD, Ot L98.492 NON-PRS CHRONIC ULCER OF SKIN OF SITES W 03/19/2018 MAN ALVARES MD, Ot T81.31XA DISRUPTION OF EXTERNAL OPERATION (SURGIC 03/19/2018 MAN ALVARES MD Ot Z68.35 BODY MASS INDEX (BMI) 35.0-35.9, ADULT 03/19/2018 MAN ALVARES MD, Ot E11.622 TYPE 2 DIABETES MELLITUS WITH OTHER SKIN 03/19/2018 MAN ALVARES MD Ot E66.01 MORBID (SEVERE) OBESITY DUE TO EXCESS CA 03/19/2018 MAN ALVARES MD, Ot J44 .9 CHRONIC OBSTRUCTIVE PULMONARY DISEASE, U 03/19/2018 MAN [...] EXCESS CA 03/19/2018 MAN ALVARES MD, Ot J44 .9 CHRONIC OBSTRUCTIVE PULMONARY DISEASE, U 03/19/2018 MNA ALVARES MD, Ot L98.492 NON-PRS CHRONIC ULCER [...] EXCESS CA 03/19/2018 MAN ALVARES MD, Ot J44 .9 CHRONIC OBSTRUCTIVE PULMONARY DISEASE, U 03/19/2018 MAN [...] EXCESS CA 03/19/2018 MAN ALVARES MD, Ot J44 .9 CHRONIC OBSTRUCTIVE PULMONARY DISEASE, U 03/19/2018 MAN [...] EXCESS CA 03/19/2018 MAN ALVARES MD, Ot J44 .9 CHRONIC OBSTRUCTIVE PULMONARY DISEASE, U 03/19/2018 MAN [...] EXCESS CA 03/19/2018 MAN ALVARES MD, Ot J44 .9 CHRONIC OBSTRUCTIVE PULMONARY DISEASE, U 03/19/2018 MAN [...] EXCESS CA 03/19/2018 MAN ALVARES MD, Ot J44 .9 CHRONIC OBSTRUCTIVE PULMONARY DISEASE, U 03/19/2018 MAN [...] EXCESS CA 03/19/2018 MAN ALVARES MD, Ot J44 .9 CHRONIC OBSTRUCTIVE PULMONARY DISEASE, U 03/19/2018 MAN [...] EXCESS CA 03/19/2018 MAN ALVARES MD, Ot J44 .9 CHRONIC OBSTRUCTIVE PULMONARY DISEASE, U 03/19/2018 MAN ALVARES MD, Ot L98.492 NON-PRS CHRONIC ULCER OF SKIN OF SITES W 03/19/2018 MAN ALVARES MD, Ot T65.222A TOXIC EFFECT OF TOBACCO CIGARETTES, SELF 03/19/2018 MAN ALVARES MD, Ot T81.31XA DISRUPTION OF EXTERNAL OPERATION (SURGIC 03/19/2018 MAN ALVARES MD Ot Z68.35 BODY MASS INDEX (BMI) 35.0-35.9, ADULT 03/19/2018 JOE WEBER FACC, ALI FACP CCDS Ot 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 03/19/2018 JOE WEBER FACC, ALI FACP CCDS Ot R06.02 SHORTNESS OF BREATH 03/19/2018 MAN ALVARES MD, Ot E11.622 TYPE 2 DIABETES MELLITUS WITH OTHER SKIN 03/19/2018 MAN ALVARES MD, Ot E66.01 MORBID (SEVERE) OBESITY DUE TO EXCESS CA 03/19/2018 MAN ALVARES MD, Ot J44 .9 CHRONIC OBSTRUCTIVE PULMONARY DISEASE, U 03/19/2018 MAN [...] EXCESS CA 03/19/2018 MAN ALVARES MD, Ot J44 .9 CHRONIC OBSTRUCTIVE PULMONARY DISEASE, U 03/19/2018 MAN [...] EXCESS CA 03/19/2018 MAN ALVARES MD, Ot J44 .9 CHRONIC OBSTRUCTIVE PULMONARY DISEASE, U 03/19/2018 MAN [...] EXCESS CA 03/19/2018 MAN ALVARES MD, Ot J44 .9 CHRONIC OBSTRUCTIVE PULMONARY DISEASE, U 03/19/2018 MAN ALVARES MD, Ot L98.492 NON-PRS CHRONIC ULCER OF SKIN OF SITES W 03/19/2018 MAN ALVARES MD Ot T65.222A TOXIC EFFECT OF TOBACCO CIGARETTES, SELF 03/19/2018 MAN ALVARES MD Ot T81.31XA DISRUPTION OF EXTERNAL OPERATION (SURGIC 03/19/2018 MAN ALVARES MD Ot Z68.35 BODY MASS INDEX (BMI) 35.0-35.9, ADULT 03/19/2018 Ot R13.10 DYS PHAGIA, UNSPECIFIED 03/22/2018 KINJAL WEBER, DORIS Butcher Ot M25.78 OSTEOPHYTE, VERTEBRAE 03/22/2018 KINJAL WEBER, DORIS Butcher Ot 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 RADICULOPATHY, CEDRICK 03/22/2018 KINJAL WEBER, DORIS Butcher Ot M48.061 SPINAL STENOSIS, LUMBAR REGION WITHOUT N 03/22/2018 KINJAL WEBER, DORIS Butcher Ot M99.73 CONN TISS AND DISC STENOS OF INTVRT FORA 03/22/2018 KINJAL WEBER, DORIS Butcher Ot W19.XXXA UNSPECIFIED FALL, INITIAL ENCOUNTER 04/03/2018 AMY JESUSP Ot E78.00 PURE HYPERCHOLESTEROLEMIA, UNSPECIFIED 04/03/2018 AMY JESUSP Ot F17.210 NICOTINE DEPENDENCE, CIGARETTES, UNCOMPL 04/03/2018 AMY JESUSP Ot F32.9 MAJOR DEPRESSIVE DISORDER, SINGLE EPISOD 04/03/2018 AMY JESUSP Ot H66.92 OTITIS MEDIA, UNSPECIFIED, LEFT EAR 04/03/2018 AMY JESUSP Ot H92.02 OTALGIA, LEFT EAR 04/03/2018 AMY JESUSP Ot I10 ESSENTIAL (PRIMARY) HYPERTENSION 04/03/2018 AMY JESUSP Ot I25.2 OLD MYOCARDIAL INFARCTION 04/03/2018 AMY JESUSP Ot J44.9 CHRONIC OBSTRUCTIVE PULMONARY DISEASE, U 04/03/2018 AMY JESUSP Ot K13.70 UNSPECIFIED LESIONS OF ORAL MUCOSA 04/03/2018 AMY JESUSP Ot K21.9 GASTRO-ESOPHAGEAL REFLUX DISEASE WITHOUT 04/03/2018 AMY JESUSP Ot L03.211 CELLULITIS OF FACE 04/03/2018 AMY JESUSP Ot Z79.51 GROUP HOME (CURRENT) USE OF INHALED STERO 04/03/2018 EDIN, SENIOR JAVA ENGINEER Ot Z79.82 GROUP HOME (CURRENT) USE OF ASPIRIN 04/03/2018 EDIN, SENIOR JAVA ENGINEER Ot Z79.84 AUTOMOTIVE 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 OF ORAL HYPOGLYC 04/03/2018 EDIN, SENIOR JAVA ENGINEER Ot Z86.73 PRSNL HX OF TIA (TIA), AND CEREB INFRC W 04/03/2018 EDIN, SENIOR JAVA ENGINEER Ot Z87.19 PERSONAL HISTORY OF OTHER DISEASES OF TH 04/03/2018 EDIN, SENIOR JAVA ENGINEER Ot Z88.0 ALLERGY STATUS TO PENICILLIN 04/03/2018 EDIN, SENIOR JAVA ENGINEER Ot Z88.1 ALLERGY STATUS TO OTHER ANTIBIOTIC AGENT 04/03/2018 EDIN, SENIOR JAVA ENGINEER Ot Z98.890 OTHER SPECIFIED POSTPROCEDURAL STATES 04/05/2018 EDIN, SENIOR JAVA ENGINEER Ot E78.00 PURE HYPERCHOLESTEROLEMIA, UNSPECIFIED 04/05/2018 EDIN, SENIOR JAVA ENGINEER Ot F17.210 NICOTINE DEPENDENCE, CIGARETTES, UNCOMPL 04/05/2018 EDIN, SENIOR JAVA ENGINEER Ot F32.9 MAJOR DEPRESSIVE DISORDER, SINGLE EPISOD 04/05/2018 EDIN, SENIOR JAVA ENGINEER Ot H66.92 OTITIS MEDIA, UNSPECIFIED, LEFT EAR 04/05/2018 EDIN, SENIOR JAVA ENGINEER Ot H92.02 OTALGIA, LEFT EAR 04/05/2018 EDIN, SENIOR JAVA ENGINEER Ot I10 ESSENTIAL (PRIMARY) HYPERTENSION 04/05/2018 EDIN SENIOR JAVA ENGINEER Ot I25.2 OLD MYOCARDIAL INFARCTION 04/05/2018 EDIN SENIOR JAVA ENGINEER Ot J44.9 CHRONIC OBSTRUCTIVE PULMONARY DISEASE, U 04/05/2018 EDINAMY Stephens SENIOR JAVA ENGINEER Ot K13.70 UNSPECIFIED LESIONS OF ORAL MUCOSA 04/05/2018 EDIN, SENIOR JAVA ENGINEER Ot K21.9 GASTRO-ESOPHAGEAL REFLUX DISEASE WITHOUT 04/05/2018 EDIN, SENIOR JAVA ENGINEER Ot L03.211 CELLULITIS OF FACE 04/05/2018 EDIN SENIOR JAVA ENGINEER Ot Z79.51 AUTOMOTIVE 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 OF INHALED STERO 04/05/2018 EDIN, SENIOR JAVA ENGINEER Ot 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 04/05/2018 EDIN, SENIOR JAVA ENGINEER Ot Z79.84 AUTOMOTIVE 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 OF ORAL HYPOGLYC 04/05/2018 EDIN, SENIOR JAVA ENGINEER Ot Z86.73 PRSNL HX OF TIA (TIA), AND CEREB INFRC W 04/05/2018 EDIN, AMY ARREOLA Ot Z87.19 PERSONAL HISTORY OF OTHER DISEASES OF TH 04/05/2018 AMY JESUSP Ot Z88.0 ALLERGY STATUS TO PENICILLIN 04/05/2018 EDIN AMY ARREOLA Ot Z88.1 ALLERGY STATUS TO OTHER ANTIBIOTIC AGENT 04/05/2018 AMY JESUS ELBA Ot Z98.890 OTHER SPECIFIED POSTPROCEDURAL STATES 04/06/2018 NARAYAN RAMOS MD Ot E78.00 PURE HYPERCHOLESTEROLEMIA, UNSPECIFIED 04/06/2018 NARAYAN RAMOS MD Ot F32.9 MAJOR DEPRESSIVE DISORDER, SINGLE EPISOD 04/06/2018 NARAYAN RAMOS MD Ot H66.92 OTITIS MEDIA, UNSPECIFIED, LEFT EAR 04/06/2018 NARAYAN RAMOS MD Ot H92.02 OTALGIA, LEFT EAR 04/06/2018 NARAYAN RAMOS MD Ot I10 ESSENTIAL (PRIMARY) HYPERTENSION 04/06/2018 NARAYAN RAMOS MD Ot I25.2 OLD MYOCARDIAL INFARCTION 04/06/2018 NARAYAN RAMOS MD Ot J44.9 CHRONIC OBSTRUCTIVE PULMONARY DISEASE, U 04/06/2018 NARAYAN RAMOS MD Ot K13.21 LEUKOPLAKIA OF ORAL MUCOSA, INCLUDING TO 04/06/2018 NARAYAN RAMOS MD, Ot K21.9 GASTRO-ESOPHAGEAL REFLUX DISEASE WITHOUT 04/06/2018 NARAYAN RAMOS MD Ot R11.0 NAUSEA 04/06/2018 NARAYAN RAMOS MD Ot R21 RASH AND OTHER NONSPECIFIC SKIN ERUPTION 04/06/2018 NARAYAN RAMOS MD, Ot 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.51 AUTOMOTIVE 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 OF INHALED STERO 04/06/2018 NARAYAN RAMOS MD Ot Z79.82 GROUP HOME (CURRENT) USE OF ASPIRIN 04/06/2018 NARAYAN RAMOS MD Ot Z86.73 PRSNL HX OF TIA (TIA), AND CEREB INFRC W 04/06/2018 NARAYAN RAMOS MD, Ot Z87.19 PERSONAL HISTORY OF OTHER DISEASES OF TH 04/06/2018 NARAYAN RAMOS MD, Ot Z87.442 PERSONAL HISTORY OF URINARY CALCULI 04/06/2018 NARAYAN RAMOS MD, Ot Z88.0 ALLERGY STATUS TO PENICILLIN 04/06/2018 NARAYAN RAMOS MD, Ot Z88.1 ALLERGY STATUS TO OTHER ANTIBIOTIC AGENT 04/06/2018 DORIS LAYTON MD, Ot M25.78 OSTEOPHYTE, VERTEBRAE 04/06/2018 DORIS LAYTON MD Ot 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 RADICULOPATHY, CEDRICK 04/06/2018 DORIS LAYTON MD, Ot M48.061 SPINAL STENOSIS, LUMBAR REGION WITHOUT N 04/06/2018 DORIS LAYTON MD Ot M99.73 CONN TISS AND DISC STENOS OF INTVRT FORA 04/06/2018 DORIS LAYTON MD Ot W19.XXXA UNSPECIFIED FALL, INITIAL ENCOUNTER 04/09/2018 NARAYAN RAMOS MD Ot E78.00 PURE HYPERCHOLESTEROLEMIA, UNSPECIFIED 04/09/2018 NARAYAN RAMOS MD, Ot F32.9 MAJOR DEPRESSIVE DISORDER, SINGLE EPISOD 04/09/2018 NARAYAN RAMOS MD Ot H66.92 OTITIS MEDIA, UNSPECIFIED, LEFT EAR 04/09/2018 NARAYAN RAMOS MD, Ot H92.02 OTALGIA, LEFT EAR 04/09/2018 NARAYAN RAMOS MD, Ot I10 ESSENTIAL (PRIMARY) HYPERTENSION 04/09/2018 NARAYAN RAMOS MD, Ot I25.2 OLD MYOCARDIAL INFARCTION 04/09/2018 NARAYAN RAMOS MD, Ot J44.9 CHRONIC OBSTRUCTIVE PULMONARY DISEASE, U 04/09/2018 NARAYAN RAMOS MD, Ot K13.21 LEUKOPLAKIA OF ORAL MUCOSA, INCLUDING TO 04/09/2018 NARAYAN RAMOS MD, Ot K21.9 GASTRO-ESOPHAGEAL REFLUX DISEASE WITHOUT 04/09/2018 NARAYAN RAMOS MD Ot R11.0 NAUSEA 04/09/2018 NARAYAN RAMOS MD, Ot R21 RASH AND OTHER NONSPECIFIC SKIN ERUPTION 04/09/2018 NARAYAN RAMOS MD, Ot 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.51 AUTOMOTIVE 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 OF INHALED STERO 04/09/2018 NARAYAN RAMOS MD Ot Z79.82 GROUP HOME (CURRENT) USE OF ASPIRIN 04/09/2018 RACHEL WEBER, NARAYAN Han Ot Z86.73 PRSNL HX OF TIA (TIA), AND CEREB INFRC W 04/09/2018 NARAYAN RAMOS MD Ot Z87.19 PERSONAL HISTORY OF OTHER DISEASES OF TH 04/09/2018 NARAYAN RAMOS MD Ot Z87.442 PERSONAL HISTORY OF URINARY CALCULI 04/09/2018 NARAYAN RAMOS MD Ot Z88.0 ALLERGY STATUS TO PENICILLIN 04/09/2018 NARAYAN RAMOS MD Ot Z88.1 ALLERGY STATUS TO OTHER ANTIBIOTIC AGENT 04/10/2018 KINJAL WEBER, DORIS Butcher Ot J43 .1 PANLOBULAR EMPHYSEMA 04/12/2018 JOHN HUFFMAN 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 Ot G47.34 IDIO SLEEP RELATED NONOBSTRUCTIVE ALVEOL 04/12/2018 JOHN HUFFMAN 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 Ot J44.9 CHRONIC OBSTRUCTIVE PULMONARY DISEASE, U 04/12/2018 JOHN HUFFMAN 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 Ot J45.909 UNSPECIFIED ASTHMA, UNCOMPLICATED 04/12/2018 JOHN HUFFMAN 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 Ot R06.02 SHORTNESS OF BREATH 04/12/2018 JOHN HUFFMAN 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 Ot Z72.0 TOBACCO USE 05/01/2018 JOHN HUFFMAN 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 Ot G47.34 IDIO SLEEP RELATED NONOBSTRUCTIVE ALVEOL 05/01/2018 JOHN HUFFMAN 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 Ot J44.9 CHRONIC OBSTRUCTIVE PULMONARY DISEASE, U 05/01/2018 JOHN HUFFMAN 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 Ot J45.909 UNSPECIFIED ASTHMA, UNCOMPLICATED 05/01/2018 JOHN HUFFMAN 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 Ot R06.02 SHORTNESS OF BREATH 05/01/2018 JOHN HUFFMAN 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 Ot Z72.0 TOBACCO USE 05/21/2018 KINJAL WEBER, DORIS Butcher Ot J43 .1 PANLOBULAR EMPHYSEMA 05/22/2018 JOHN HUFFMAN 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 Ot G47.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 05/22/2018 JOHN HUFFMAN 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 Ot J30.2 OTHER SEASONAL ALLERGIC RHINITIS 05/22/2018 JOHN HUFFMAN 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 Ot J43.8 OTHER EMPHYSEMA 05/22/2018 JOHN HUFFMAN 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 Ot R06.02 SHORTNESS OF BREATH 05/22/2018 SEA HUFFMANINE Kat 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 Ot Z72.0 TOBACCO USE 05/24/2018 ANUP POTTS SENIOR JAVA ENGINEER Ot M19.011 PRIMARY OSTEOARTHRITIS, RIGHT SHOULDER 05/24/2018 ANUP POTTS SENIOR JAVA ENGINEER Ot M75.101 UNSP ROTATR-CUFF TEAR/RUPTR OF RIGHT LEWIS 05/24/2018 ANUP POTTS SENIOR JAVA ENGINEER Ot M75.111 INCOMPLETE ROTATR-CUFF TEAR/RUPTR OF R S 05/24/2018 SEA HUFFMANINE Kat 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 Ot G47.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 05/24/2018 JOHN HUFFMAN 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 Ot J30.2 OTHER SEASONAL ALLERGIC RHINITIS 05/24/2018 JOHN HUFFMAN 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 Ot J43.8 OTHER EMPHYSEMA 05/24/2018 JOHN HUFFMAN 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 Ot R06.02 SHORTNESS OF BREATH 05/24/2018 JOHN HUFFMAN 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 Ot Z72.0 TOBACCO USE 06/07/2018 JOHN HUFFMAN 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 Ot G47.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 06/07/2018 JOHN HUFFMAN 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 Ot J30.2 OTHER SEASONAL ALLERGIC RHINITIS 06/07/2018 JOHN HUFFMAN 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 Ot J43.8 OTHER EMPHYSEMA 06/07/2018 JOHN HUFFMAN 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 Ot R06.02 SHORTNESS OF BREATH 06/07/2018 JOHN HUFFMAN 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 Ot Z72.0 TOBACCO USE 06/11/2018 ANUP POTTS SENIOR JAVA ENGINEER Ot M19.011 PRIMARY OSTEOARTHRITIS, RIGHT SHOULDER 06/11/2018 ANUP POTTS SENIOR JAVA ENGINEER Ot M75.101 UNSP ROTATR-CUFF TEAR/RUPTR OF RIGHT LEWIS 06/11/2018 ANUP POTTS SENIOR JAVA ENGINEER Ot M75.111 INCOMPLETE ROTATR-CUFF TEAR/RUPTR OF R S 06/12/2018 ESA HUFFMANINE Kat 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 Ot G47.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 06/12/2018 JOHN HUFFMAN 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 Ot J30.2 OTHER SEASONAL ALLERGIC RHINITIS 06/12/2018 SEA HUFFMANINE E 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 Ot J43.8 OTHER EMPHYSEMA 06/12/2018 SEA HUFFMANINE E 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 Ot R06.02 SHORTNESS OF BREATH 06/12/2018 SEA HUFFMANINE E 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 Ot Z72.0 TOBACCO USE 06/17/2018 KINJAL WEBER, DORIS Butcher Ot J43 .1 PANLOBULAR EMPHYSEMA 06/18/2018 KINJAL WEBER, DORIS N Ot J43 .1 PANLOBULAR EMPHYSEMA 06/19/2018 SEA HUFFMANINE E 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 Ot G47.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 06/19/2018 NATHANAELSEA POOLINE E 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 Ot J30.2 OTHER SEASONAL ALLERGIC RHINITIS 06/19/2018 SEA HUFFMANINE E 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 Ot J43.8 OTHER EMPHYSEMA 06/19/2018 SEA HUFFMANINE E 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 Ot R06.02 SHORTNESS OF BREATH 06/19/2018 SEA HUFFMANINE Kat 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 Ot Z72.0 TOBACCO USE 06/21/2018 SEA HUFFMANINE E 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 Ot G47.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 06/21/2018 SEA HUFFMANINE E 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 Ot J30.2 OTHER SEASONAL ALLERGIC RHINITIS 06/21/2018 SEA HUFFMANINE E 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 Ot J43.8 OTHER EMPHYSEMA 06/21/2018 SEA HUFFMANINE E 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 Ot R06.02 SHORTNESS OF BREATH 06/21/2018 SEA HUFFMANINE E 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 Ot Z72.0 TOBACCO USE 06/21/2018 SEA HUFFMANINE E 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 Ot G47.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 06/21/2018 SEA HUFFMANINE E 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 Ot J30.2 OTHER SEASONAL ALLERGIC RHINITIS 06/21/2018 SEA HUFFMANINE E 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 Ot J43.8 OTHER EMPHYSEMA 06/21/2018 NATHANAELSEA POOLINE E 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 Ot R06.02 SHORTNESS OF BREATH 06/21/2018 SEA HUFFMANINE E 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 Ot Z72.0 TOBACCO USE 06/26/2018 SEA HUFFMANINE E 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 Ot G47.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 06/26/2018 SEA HUFFMANINE E 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 Ot J30.2 OTHER SEASONAL ALLERGIC RHINITIS 06/26/2018 NATHANAEL, JOHN E 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 Ot J43.8 OTHER EMPHYSEMA 06/26/2018 JOHN HUFFMAN 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 Ot R06.02 SHORTNESS OF BREATH 06/26/2018 JOHN HUFFMAN 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 Ot Z72.0 TOBACCO USE 06/28/2018 ANUP POTTS Ot M75.111 INCOMPLETE ROTATR-CUFF TEAR/RUPTR OF R S 07/02/2018 ANUP POTTSP Ot M75.111 INCOMPLETE ROTATR-CUFF TEAR/RUPTR OF R S 07/02/2018 POTTSANUP Parikh SENIOR JAVA ENGINEER Ot M75.111 INCOMPLETE ROTATR-CUFF TEAR/RUPTR OF R S 07/03/2018 SEA HUFFMANINE Kat 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 Ot G47.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 07/03/2018 JOHN HUFFMAN 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 Ot J30.2 OTHER SEASONAL ALLERGIC RHINITIS 07/03/2018 JOHN HUFFMAN 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 Ot J43.8 OTHER EMPHYSEMA 07/03/2018 JOHN HUFFMAN 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 Ot R06.02 SHORTNESS OF BREATH 07/03/2018 JOHN HUFFMAN 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 Ot Z72.0 TOBACCO USE 07/05/2018 SEA HUFFMANINE Kat 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 Ot G47.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 07/05/2018 SEA HUFFMANINE Kat 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 Ot J30.2 OTHER SEASONAL ALLERGIC RHINITIS 07/05/2018 SEA HUFFMANINE Kat 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 Ot J43.8 OTHER EMPHYSEMA 07/05/2018 SEA HUFFMANINE Kat 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 Ot R06.02 SHORTNESS OF BREATH 07/05/2018 JOHN HUFFMAN 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 Ot Z72.0 TOBACCO USE 07/10/2018 SEA HUFFMANINE Kat 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 Ot G47.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 07/10/2018 SEA HUFFMANINE Kat 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 Ot J30.2 OTHER SEASONAL ALLERGIC RHINITIS 07/10/2018 SEA HUFFMANINE Kat 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 Ot J43.8 OTHER EMPHYSEMA 07/10/2018 SEA HUFFMANINE Kat 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 Ot R06.02 SHORTNESS OF BREATH 07/10/2018 SEA HUFFMANINE Kat 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 Ot Z72.0 TOBACCO USE 07/20/2018 ANUP PTOTS Ot M75.111 INCOMPLETE ROTATR-CUFF TEAR/RUPTR OF R S 08/12/2018 JOHN HUFFMAN 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 Ot G47.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 08/12/2018 SEA HUFFMANINE Kat 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 Ot J30.2 OTHER SEASONAL ALLERGIC RHINITIS 08/12/2018 NATHANAELSEA POOLINE E 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 Ot J43.8 OTHER EMPHYSEMA 08/12/2018 JOHN HUFFMAN 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 Ot R06.02 SHORTNESS OF BREATH 08/12/2018 SEA HUFFMANINE Kat 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 Ot Z72.0 TOBACCO USE 08/13/2018 NATHANAEL JOHN E 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 Ot G47.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 08/13/2018 NATHANAELSEA POOLINE E 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 Ot J30.2 OTHER SEASONAL ALLERGIC RHINITIS 08/13/2018 JOHN HUFFMAN 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 Ot J43.8 OTHER EMPHYSEMA 08/13/2018 JOHN HUFFMAN 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 Ot R06.02 SHORTNESS OF BREATH 08/13/2018 JOHN HUFFMAN 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 Ot Z72.0 TOBACCO USE 08/28/2018 JOE GUILLENC, ALI FACP CCDS Ot E11.9 TYPE 2 DIABETES MELLITUS WITHOUT COMPLIC 08/28/2018 JOE GUILLENC, ALI FACP CCDS Ot E66.9 OBESITY, UNSPECIFIED 08/28/2018 JOE WEBER FACC, ALI FACP CCDS Ot G47.34 IDIO SLEEP RELATED NONOBSTRUCTIVE ALVEOL 08/28/2018 JOE WEBER FACC, ALI FACP CCDS Ot 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 08/28/2018 JOE GUILLENC, ALI FACP CCDS Ot J43.8 OTHER EMPHYSEMA 08/28/2018 JOE GUILLENC, ALI FACP CCDS Ot R06.02 SHORTNESS OF BREATH 08/28/2018 JOE GUILLENC, ALI FACP CCDS Ot R07.89 OTHER CHEST PAIN 08/28/2018 JOE WEBER FACC, ALI FACP CCDS Ot R42 DIZZINESS AND GIDDINESS 08/28/2018 JOE GUILLENC, ALI FACP CCDS Ot Z72.0 TOBACCO USE 12/10/2018 MYRTLE JOHNSON 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 Ot M43.12 SPONDYLOLISTHESIS, CERVICAL REGION 12/10/2018 MYRTLE JOHNSON 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 Ot M48.02 SPINAL STENOSIS, CERVICAL REGION 12/10/2018 ELIZABETHCHERMYRTLE M 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 Ot M50.122 CERVICAL DISC DISORDER AT C5-C6 LEVEL [place] 12/10/2018 ELIZABETHLORENEMYRTLE M 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 Ot M43.12 SPONDYLOLISTHESIS, CERVICAL REGION 12/10/2018 ELIZABETH MYRTLE Duarte 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 Ot M48.02 SPINAL STENOSIS, CERVICAL REGION 12/10/2018 ELIZABETHCHERMYRTLE M 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 Ot M50.122 CERVICAL DISC DISORDER AT C5-C6 LEVEL [place] 02/12/2019 NATHANAELSEA POOLINE Kat 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 Ot J43.8 OTHER EMPHYSEMA 02/12/2019 NATHANAEL, JOHN E 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 Ot J45.909 UNSPECIFIED ASTHMA, UNCOMPLICATED 02/12/2019 NATHANAELSEA POOLINE E 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 Ot R09.02 HYPOXEMIA 02/12/2019 NATHANAELSEA POOLINE E 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 Ot Z72.0 TOBACCO USE 02/14/2019 SEA HUFFMANINE Kat 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 Ot J43.8 OTHER EMPHYSEMA 02/14/2019 NATHANAELSEA POOLINE E 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 Ot J45.909 UNSPECIFIED ASTHMA, UNCOMPLICATED 02/14/2019 NATHANAELSEA POOLINE E 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 Ot R09.02 HYPOXEMIA 02/14/2019 NATHANAELSEA POOLINE E 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 Ot Z72.0 TOBACCO USE 02/21/2019 SEA HUFFMANINE E 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 Ot J43.8 OTHER EMPHYSEMA 02/21/2019 NATHANAELSEA POOLINE E 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 Ot J45.909 UNSPECIFIED ASTHMA, UNCOMPLICATED 02/21/2019 SEA HUFFMANINE Kat 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 Ot R09.02 HYPOXEMIA 02/21/2019 SEA HUFFMANINE E 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 Ot Z72.0 TOBACCO USE 03/05/2019 SEA HUFFMANINE Kat 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 Ot J43.8 OTHER EMPHYSEMA 03/05/2019 NATHANAEL JOHN Kat 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 Ot J45.909 UNSPECIFIED ASTHMA, UNCOMPLICATED 03/05/2019 NATHANAELSEA POOLINE Kat 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 Ot R09.02 HYPOXEMIA 03/05/2019 SEA HUFFMANINE E 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 Ot Z72.0 TOBACCO USE 03/07/2019 NATHANAEL JOHN E 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 Ot J43.8 OTHER EMPHYSEMA 03/07/2019 NATHANAEL, JOHN E 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 Ot J45.909 UNSPECIFIED ASTHMA, UNCOMPLICATED 03/07/2019 SEA HUFFMANINE E 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 Ot R09.02 HYPOXEMIA 03/07/2019 SEA HUFFMANINE Kat 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 Ot Z72.0 TOBACCO USE 03/12/2019 NATHANAELSEA POOLINE E 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 Ot J43.8 OTHER EMPHYSEMA 03/12/2019 NATHANAEL JOHN Kat 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 Ot J45.909 UNSPECIFIED ASTHMA, UNCOMPLICATED 03/12/2019 NATHANAEL JOHN Kat 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 Ot R09.02 HYPOXEMIA 03/12/2019 SEA HUFFMANINE E 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 Ot Z72.0 TOBACCO USE 03/12/2019 NATHANAELSEA POOLINE Kat 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 Ot J43.8 OTHER EMPHYSEMA 03/12/2019 NATHANAEL JOHN E 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 Ot J45.909 UNSPECIFIED ASTHMA, UNCOMPLICATED 03/12/2019 NATHANAELSEA POOLINE E 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 Ot R09.02 HYPOXEMIA 03/12/2019 SEA HUFFMANINE Kat 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 Ot Z72.0 TOBACCO USE 03/14/2019 KINJAL WEBER, DORIS Butcher Ot J43 .1 PANLOBULAR EMPHYSEMA 03/14/2019 SEA HUFFMANINE Kat 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 Ot G47.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 03/14/2019 SEA HUFFMANINE E 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 Ot J30.2 OTHER SEASONAL ALLERGIC RHINITIS 03/14/2019 SEA HUFFMANINE E 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 Ot J43.8 OTHER EMPHYSEMA 03/14/2019 SEA HUFFMANINE Kat 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 Ot R06.02 SHORTNESS OF BREATH 03/14/2019 SEA HUFFMANINE E 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 Ot Z72.0 TOBACCO USE 03/14/2019 SEA HUFFMANINE Kat 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 Ot J43.8 OTHER EMPHYSEMA 03/14/2019 SEA HUFFMANINE Kat 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 Ot J45.909 UNSPECIFIED ASTHMA, UNCOMPLICATED 03/14/2019 SEA HUFFMANINE E 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 Ot R09.02 HYPOXEMIA 03/14/2019 SEA HUFFMANINE Kat 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 Ot Z72.0 TOBACCO USE 03/14/2019 FELIPA WEBER, MAN Dale Ot M75.101 UNSP ROTATR-CUFF TEAR/RUPTR OF RIGHT LEWIS 03/14/2019 FELIPA WEBER, MAN Dale Ot Z01.818 ENCOUNTER FOR OTHER PREPROCEDURAL EXAMIN 03/18/2019 FELIPA WEBER, MAN Dale Ot M75.101 UNSP ROTATR-CUFF TEAR/RUPTR OF RIGHT LEWIS 03/18/2019 ZAMAN THORPE MD, Ot Z01.818 ENCOUNTER FOR OTHER PREPROCEDURAL EXAMIN 03/20/2019 MAN LEO MD, Ot M75.101 UNSP ROTATR-CUFF TEAR/RUPTR OF RIGHT LEWIS 03/20/2019 MAN LEO MD, Ot Z01.818 ENCOUNTER FOR OTHER PREPROCEDURAL EXAMIN 03/20/2019 MAN LEO MD, Ot E66.09 OTHER OBESITY DUE TO EXCESS CALORIES 03/20/2019 MAN LEO MD, Ot E78.00 PURE HYPERCHOLESTEROLEMIA, UNSPECIFIED 03/20/2019 MAN LEO MD, Ot F17.210 NICOTINE DEPENDENCE, CIGARETTES, UNCOMPL 03/20/2019 MAN LEO MD, Ot F32.9 MAJOR DEPRESSIVE DISORDER, SINGLE EPISOD 03/20/2019 MAN LEO MD, Ot G47.30 SLEEP APNEA, UNSPECIFIED 03/20/2019 MAN LEO MD, Ot I1 0 ESSENTIAL (PRIMARY) HYPERTENSION 03/20/2019 MAN LEO MD, Ot I25.2 OLD MYOCARDIAL INFARCTION 03/20/2019 MAN LEO MD, Ot J44.9 CHRONIC OBSTRUCTIVE PULMONARY DISEASE, U 03/20/2019 AMN LEO MD, Ot M65.331 TRIGGER FINGER, RIGHT MIDDLE FINGER 03/20/2019 MAN LEO MD, Ot M75.51 BURSITIS OF RIGHT SHOULDER 03/20/2019 MAN LEO MD, Ot S43.421A SPRAIN OF RIGHT ROTATOR CUFF CAPSULE, IN 03/20/2019 MAN LEO MD, Ot S43.431A SUPERIOR GLENOID LABRUM LESION OF RIGHT 03/20/2019 MAN LEO MD, Ot Z68.35 BODY MASS INDEX (BMI) 35.0-35.9, ADULT 03/20/2019 MAN LEO MD, Ot Z79.82 GROUP HOME (CURRENT) USE OF ASPIRIN 03/20/2019 MAN LEO MD, Ot Z80.3 FAMILY HISTORY OF MALIGNANT NEOPLASM OF 03/20/2019 MAN LEO MD, Ot Z82.49 FAMILY HX OF ISCHEM HEART DIS AND OTH DI 03/20/2019 MAN LEO MD, Ot Z83.3 FAMILY HISTORY OF DIABETES MELLITUS 03/20/2019 MAN LEO MD, Ot Z86.73 PRSNL HX OF TIA (TIA), AND CEREB INFRC W 03/20/2019 MAN LEO MD, Ot Z88.0 ALLERGY STATUS TO PENICILLIN 03/20/2019 MAN LEO MD, Ot Z88.1 ALLERGY STATUS TO OTHER ANTIBIOTIC AGENT 03/20/2019 MAN LEO MD, Ot Z99.89 DEPENDENCE ON OTHER ENABLING MACHINES AN 03/26/2019 MAN LEO MD, Ot E66.09 OTHER OBESITY DUE TO EXCESS CALORIES 03/26/2019 MAN LEO MD, Ot E78.00 PURE HYPERCHOLESTEROLEMIA, UNSPECIFIED 03/26/2019 MAN LEO MD, Ot F17.210 NICOTINE DEPENDENCE, CIGARETTES, UNCOMPL 03/26/2019 MAN LEO MD, Ot F32.9 MAJOR DEPRESSIVE DISORDER, SINGLE EPISOD 03/26/2019 MAN LEO MD, Ot G47.30 SLEEP APNEA, UNSPECIFIED 03/26/2019 MAN LEO MD, Ot I1 0 ESSENTIAL (PRIMARY) HYPERTENSION 03/26/2019 MAN LEO MD, Ot I25.2 OLD MYOCARDIAL INFARCTION 03/26/2019 MAN LEO MD, Ot J44.9 CHRONIC OBSTRUCTIVE PULMONARY DISEASE, U 03/26/2019 MAN LEO MD, Ot M65.331 TRIGGER FINGER, RIGHT MIDDLE FINGER 03/26/2019 MAN ELO MD, Ot M75.51 BURSITIS OF RIGHT SHOULDER 03/26/2019 MAN LEO MD, Ot S43.421A SPRAIN OF RIGHT ROTATOR CUFF CAPSULE, IN 03/26/2019 MAN LEO MD, Ot S43.431A SUPERIOR GLENOID LABRUM LESION OF RIGHT 03/26/2019 MAN LEO MD, Ot Z68.35 BODY MASS INDEX (BMI) 35.0-35.9, ADULT 03/26/2019 MAN LEO MD, Ot Z79.82 GROUP HOME (CURRENT) USE OF ASPIRIN 03/26/2019 MAN LEO MD, Ot Z80.3 FAMILY HISTORY OF MALIGNANT NEOPLASM OF 03/26/2019 MAN LEO MD, Ot Z82.49 FAMILY HX OF ISCHEM HEART DIS AND OTH DI 03/26/2019 MAN LEO MD, Ot Z83.3 FAMILY HISTORY OF DIABETES MELLITUS 03/26/2019 MAN LEO MD, Ot Z86.73 PRSNL HX OF TIA (TIA), AND CEREB INFRC W 03/26/2019 MAN LEO MD, Ot Z88.0 ALLERGY STATUS TO PENICILLIN 03/26/2019 MAN LEO MD, Ot Z88.1 ALLERGY STATUS TO OTHER ANTIBIOTIC AGENT 03/26/2019 MAN LEO MD, Ot Z99.89 DEPENDENCE ON OTHER ENABLING MACHINES AN 03/29/2019 MAN LEO MD, Ot E66.09 OTHER OBESITY DUE TO EXCESS CALORIES 03/29/2019 MAN LEO MD, Ot E78.00 PURE HYPERCHOLESTEROLEMIA, UNSPECIFIED 03/29/2019 MAN LEO MD, Ot F17.210 NICOTINE DEPENDENCE, CIGARETTES, UNCOMPL 03/29/2019 MAN LEO MD, Ot F32.9 MAJOR DEPRESSIVE DISORDER, SINGLE EPISOD 03/29/2019 MAN LEO MD, Ot G47.30 SLEEP APNEA, UNSPECIFIED 03/29/2019 MAN LEO MD, Ot I1 0 ESSENTIAL (PRIMARY) HYPERTENSION 03/29/2019 MAN LEO MD, Ot I25.2 OLD MYOCARDIAL INFARCTION 03/29/2019 MAN LEO MD, Ot J44.9 CHRONIC OBSTRUCTIVE PULMONARY DISEASE, U 03/29/2019 MAN LEO MD, Ot M65.331 TRIGGER FINGER, RIGHT MIDDLE FINGER 03/29/2019 MAN LEO MD, Ot M75.51 BURSITIS OF RIGHT SHOULDER 03/29/2019 MAN LEO MD, Ot S43.421A SPRAIN OF RIGHT ROTATOR CUFF CAPSULE, IN 03/29/2019 MAN LEO MD, Ot S43.431A SUPERIOR GLENOID LABRUM LESION OF RIGHT 03/29/2019 MAN LEO MD, Ot Z68.35 BODY MASS INDEX (BMI) 35.0-35.9, ADULT 03/29/2019 MAN LEO MD, Ot 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 03/29/2019 MAN LEO MD, Ot Z80.3 FAMILY HISTORY OF MALIGNANT NEOPLASM OF 03/29/2019 MAN LEO MD, Ot Z82.49 FAMILY HX OF ISCHEM HEART DIS AND OTH DI 03/29/2019 MAN LEO MD, Ot Z83.3 FAMILY HISTORY OF DIABETES MELLITUS 03/29/2019 MAN LEO MD, Ot Z86.73 PRSNL HX OF TIA (TIA), AND CEREB INFRC W 03/29/2019 MAN LEO MD Ot Z88.0 ALLERGY STATUS TO PENICILLIN 03/29/2019 MAN LEO MD Ot Z88.1 ALLERGY STATUS TO OTHER ANTIBIOTIC AGENT 03/29/2019 MAN LEO MD Ot Z99.89 DEPENDENCE ON OTHER ENABLING MACHINES AN 04/04/2019 MAN LEO MD Ot M75.101 UNSP ROTATR-CUFF TEAR/RUPTR OF RIGHT LEWIS 04/04/2019 MAN LEO MD Ot M75.20 BICIPITAL TENDINITIS, UNSPECIFIED SHOULD 04/09/2019 JOHN HUFFMAN 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 Ot J43.8 OTHER EMPHYSEMA 04/09/2019 JOHN HUFFMAN 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 Ot J45.909 UNSPECIFIED ASTHMA, UNCOMPLICATED 04/09/2019 JOHN HUFFMAN 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 Ot R09.02 HYPOXEMIA 04/09/2019 JOHN HUFFMAN 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 Ot Z72.0 TOBACCO USE 04/11/2019 JOHN HUFFMAN 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 Ot J43.8 OTHER EMPHYSEMA 04/11/2019 JOHN HUFFMAN 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 Ot J45.909 UNSPECIFIED ASTHMA, UNCOMPLICATED 04/11/2019 SEA HUFFMANINE Kat 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 Ot R09.02 HYPOXEMIA 04/11/2019 JOHN HUFFMAN 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 Ot Z72.0 TOBACCO USE 04/16/2019 JOHN HUFFMAN 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 Ot J43.8 OTHER EMPHYSEMA 04/16/2019 JOHN HUFFMAN 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 Ot J45.909 UNSPECIFIED ASTHMA, UNCOMPLICATED 04/16/2019 JOHN HUFFMAN 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 Ot R09.02 HYPOXEMIA 04/16/2019 JOHN HUFFMAN 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 Ot Z72.0 TOBACCO USE 04/16/2019 SEA HUFFMANINE Kat 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 Ot J43.8 OTHER EMPHYSEMA 04/16/2019 SEA HUFFMANINE Kat 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 Ot J45.909 UNSPECIFIED ASTHMA, UNCOMPLICATED 04/16/2019 SEA HUFFMANINE E 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 Ot R09.02 HYPOXEMIA 04/16/2019 SEA HUFFMANINE Kat 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 Ot Z72.0 TOBACCO USE 04/23/2019 JOHN HUFFMAN 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 Ot J43.8 OTHER EMPHYSEMA 04/23/2019 JOHN HUFFMAN 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 Ot J45.909 UNSPECIFIED ASTHMA, UNCOMPLICATED 04/23/2019 NATHANAEL, JOHN E 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 Ot R09.02 HYPOXEMIA 04/23/2019 NATHANAEL, JOHN E 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 Ot Z72.0 TOBACCO USE 04/23/2019 SEA HUFFMANINE E 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 Ot J43.8 OTHER EMPHYSEMA 04/23/2019 NATHANAEL, JOHN E 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 Ot J45.909 UNSPECIFIED ASTHMA, UNCOMPLICATED 04/23/2019 NATHANAEL, JOHN E 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 Ot R09.02 HYPOXEMIA 04/23/2019 NATHANAEL, JOHN E 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 Ot Z72.0 TOBACCO USE 04/25/2019 NATHANAEL, JOHN E 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 Ot J43.8 OTHER EMPHYSEMA 04/25/2019 NATHANAEL, JOHN E 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 Ot J45.909 UNSPECIFIED ASTHMA, UNCOMPLICATED 04/25/2019 SEA HUFFMANINE E 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 Ot R09.02 HYPOXEMIA 04/25/2019 SEA HUFFMANINE E 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 Ot Z72.0 TOBACCO USE 04/30/2019 SEA HUFFMANINE E 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 Ot J43.8 OTHER EMPHYSEMA 04/30/2019 SEA HUFFMANINE E 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 Ot J45.909 UNSPECIFIED ASTHMA, UNCOMPLICATED 04/30/2019 NATHANAELSEA POOLINE E 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 Ot R09.02 HYPOXEMIA 04/30/2019 SEA HUFFMANINE Kat 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 Ot Z72.0 TOBACCO USE 04/30/2019 SEA HUFFMANINE E 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 Ot J43.8 OTHER EMPHYSEMA 04/30/2019 SEA HUFFMANINE E 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 Ot J45.909 UNSPECIFIED ASTHMA, UNCOMPLICATED 04/30/2019 SEA HUFFMANINE E 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 Ot R09.02 HYPOXEMIA 04/30/2019 NATHANAEL JOHN E 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 Ot Z72.0 TOBACCO USE 05/07/2019 NATHANAEL, JOHN E 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 Ot J43.8 OTHER EMPHYSEMA 05/07/2019 NATHANAEL, JOHN E 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 Ot J45.909 UNSPECIFIED ASTHMA, UNCOMPLICATED 05/07/2019 NATHANAEL JOHN E 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 Ot R09.02 HYPOXEMIA 05/07/2019 NATHANAEL, JOHN E 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 Ot Z72.0 TOBACCO USE 05/07/2019 NATHANAEL, JOHN E 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 Ot J43.8 OTHER EMPHYSEMA 05/07/2019 NATHANAEL, JOHN E 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 Ot J45.909 UNSPECIFIED ASTHMA, UNCOMPLICATED 05/07/2019 NATHANAEL, JOHN E 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 Ot R09.02 HYPOXEMIA 05/07/2019 NATHANAEL, JOHN E 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 Ot Z72.0 TOBACCO USE 05/07/2019 NATHANAEL, JOHN E 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 Ot J43.8 OTHER EMPHYSEMA 05/07/2019 NATHANAEL, JOHN E 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 Ot J45.909 UNSPECIFIED ASTHMA, UNCOMPLICATED 05/07/2019 NATHANAEL, JOHN E 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 Ot R09.02 HYPOXEMIA 05/07/2019 NATHANAEL, JOHN E 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 Ot Z72.0 TOBACCO USE 05/08/2019 NATHANAEL, JOHN E 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 Ot J43.8 OTHER EMPHYSEMA 05/08/2019 NATHANAEL, JOHN E 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 Ot J45.909 UNSPECIFIED ASTHMA, UNCOMPLICATED 05/08/2019 NATHANAEL, JOHN E 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 Ot R09.02 HYPOXEMIA 05/08/2019 NATHANAEL, JOHN E 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 Ot Z72.0 TOBACCO USE 06/04/2019 NATHANAEL, JOHN E 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 Ot J43.8 OTHER EMPHYSEMA 06/04/2019 NATHANAEL, JOHN E 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 Ot J45.909 UNSPECIFIED ASTHMA, UNCOMPLICATED 06/04/2019 NATHANAEL, JOHN E 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 Ot R09.02 HYPOXEMIA 06/04/2019 NATHANAEL, JOHN E 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 Ot Z72.0 TOBACCO USE 06/06/2019 NATHANAEL, JOHN E 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 Ot J43.8 OTHER EMPHYSEMA 06/06/2019 NATHANAEL, JOHN E 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 Ot J45.909 UNSPECIFIED ASTHMA, UNCOMPLICATED 06/06/2019 NATHANAEL JOHN E 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 Ot R09.02 HYPOXEMIA 06/06/2019 NATHANAEL, JOHN E WEATHERIZATION CREW LEADER Ot Z72.0 TOBACCO USE 06/21/2019 NATHANAEL, JOHN E WEATHERIZATION CREW LEADER Ot F17.210 NICOTINE DEPENDENCE, CIGARETTES, UNCOMPL 06/21/2019 SEA HUFFMANINE E WEATHERIZATION CREW LEADER Ot 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 06/21/2019 SEA HUFFMANINE Kat WEATHERIZATION CREW LEADER Ot Z12.2 ENCNTR SCREEN FOR MALIGNANT NEOPLASM OF 06/21/2019 JOHN HUFFMAN WEATHERIZATION CREW LEADER Ot F17.210 NICOTINE DEPENDENCE, CIGARETTES, UNCOMPL 06/21/2019 SEA HUFFMANINE Kat WEATHERIZATION CREW LEADER Ot 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 06/21/2019 JOHN HUFFMAN WEATHERIZATION CREW LEADER Ot Z12.2 ENCNTR SCREEN FOR MALIGNANT NEOPLASM OF 06/26/2019 JOHN HUFFMAN WEATHERIZATION CREW LEADER Ot J43.8 OTHER EMPHYSEMA 06/26/2019 SEA HUFFMANINE E WEATHERIZATION CREW LEADER Ot J45.909 UNSPECIFIED ASTHMA, UNCOMPLICATED 06/26/2019 SEA HUFFMANINE E WEATHERIZATION CREW LEADER Ot R09.02 HYPOXEMIA 06/26/2019 JOHN HUFFMAN WEATHERIZATION CREW LEADER Ot Z72.0 TOBACCO USE 08/15/2019 SEA HUFFMANINE E WEATHERIZATION CREW LEADER Ot J44.9 CHRONIC OBSTRUCTIVE PULMONARY DISEASE, U 09/04/2019 JOHN HUFFMAN WEATHERIZATION CREW LEADER Ot J43.8 OTHER EMPHYSEMA 09/04/2019 JOHN HUFFMAN WEATHERIZATION CREW LEADER Ot J45.909 UNSPECIFIED ASTHMA, UNCOMPLICATED 09/04/2019 JOHN HUFFMAN WEATHERIZATION CREW LEADER Ot R09.02 HYPOXEMIA 09/04/2019 JOHN HUFFMAN WEATHERIZATION CREW LEADER Ot Z72.0 TOBACCO USE 09/11/2019 JOHN HUFFMAN WEATHERIZATION CREW LEADER Ot J43.8 OTHER EMPHYSEMA 09/11/2019 JOHN HUFFMAN WEATHERIZATION CREW LEADER Ot J45.909 UNSPECIFIED ASTHMA, UNCOMPLICATED 09/11/2019 JOHN HUFFMAN WEATHERIZATION CREW LEADER Ot R09.02 HYPOXEMIA 09/11/2019 JOHN HUFFMAN WEATHERIZATION CREW LEADER Ot Z72.0 TOBACCO USE 11/12/2019 KINJAL WEBRE, DORIS Butcher Ot J43 .1 PANLOBULAR EMPHYSEMA 11/12/2019 JOHN HUFFMAN WEATHERIZATION CREW LEADER Ot G47.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 11/12/2019 JOHN HUFFMAN WEATHERIZATION CREW LEADER Ot J30.2 OTHER SEASONAL ALLERGIC RHINITIS 11/12/2019 JOHN HUFFMAN WEATHERIZATION CREW LEADER Ot J43.8 OTHER EMPHYSEMA 11/12/2019 JOHN HUFFMAN WEATHERIZATION CREW LEADER Ot R06.02 SHORTNESS OF BREATH 11/12/2019 SEA HUFFMANINE E WEATHERIZATION CREW LEADER Ot Z72.0 TOBACCO USE 11/12/2019 Ot J43.8 OTHE R EMPHYSEMA 11/12/2019 Ot J45.909 UN SPECIFIED ASTHMA, UNCOMPLICATED 11/12/2019 Ot R09.02 HYP OXEMIA 11/12/2019 Ot 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 Results Test Result Range Capillary blood glucose measurement by g lucometer (mass/volume) - 06/29/16 10:01 Capillary blood glucose measurement by glucometer (mas s/volume) 149 mg/dL 70-110 Automated blood complete blood count (he mogram) panel - 07/12/16 08:24 Blood leukocytes automated count (number/volume) 9.4 10*3/uL 4.3-11.0 Blood erythrocytes automated count (number/volume) 5.13 10*6/uL 4.35-5.85 Venous blood hemoglobin measurement (mass/volume) 15.4 g/dL 13.3-17.7 Blood hematocrit (volume fraction) 45 % 40-54 Automated erythrocyte mean corpuscular volume 87 [ foz_us] 80-99 Automated erythrocyte mean corpuscular h emoglobin (mass per erythrocyte) 30 pg 25-34 Automated erythrocyte mean corpuscular h emoglobin concentration measurement (mass/volume) 35 g/dL 32-36 Automated erythrocyte distribution width ratio 13. 9 % 10.0- 14.5 Automated blood platelet count (count/volume) 330 10*3/uL 130-400 Automated blood platelet mean volume measurement 9.9 [foz_us] 7.4-10.4 PT panel in platelet poor plasma by coag ulation assay - 07/12/16 08:24 Prothrombin time (PT) in platelet poor plasma by coagu lation assay 12.9 s 12.2-14.7 INR in platelet poor plasma or blood by coagulation as say 1.0 0.8-1.4 Activated partial thromboplastin time (a PTT) in platelet poor plasma bycoagulation assay - 07/12/16 08:24 Activated partial thromboplastin time (a PTT) in platelet poor plasma bycoagulation assay 26 s 24-35 Comprehensive metabolic panel - 07/12/16 08:24 Serum or plasma sodium measurement (moles/volume) 140 mmol/L 135-145 Serum or plasma potassium measurement (moles/volume) 3.7 mmol/L 3.6-5.0 Serum or plasma chloride measurement (moles/volume) 104 mmol/L 98-107 Carbon dioxide 24 mmol/L 21-32 Serum or plasma anion gap determination (moles/volume) 12 mmol/L 5-14 Serum or plasma urea nitrogen measurement (mass/volume ) 12 mg/dL 7-18 Serum or plasma creatinine measurement (mass/volume) 1.14 mg/dL 0.60-1.30 Serum or plasma urea nitrogen/creatinine mass ratio 11 NRG Serum or plasma creatinine measurement w ith calculation of estimated glomerular filtration rate > NRG Serum or plasma glucose measurement (mass/volume) 128 mg/dL 70-105 Serum or plasma calcium measurement (mass/volume) 9.1 mg/dL 8.5-10.1 Serum or plasma total bilirubin measurement (mass/volu me) 0.3 mg/dL 0.1-1.0 Serum or plasma alkaline phosphatase wayne surement (enzymatic activity/volume) 47 U/L 40-136 Serum or plasma aspartate aminotransfera se measurement (enzymatic activity/volume) 17 U/L 5-34 Serum or plasma alanine aminotransferase measurement (enzymatic activity/volume) 28 U/L 0-55 Serum or plasma protein measurement (mass/volume) 7.1 g/dL 6.4-8.2 Serum or plasma albumin measurement (mass/volume) 4.5 g/dL 3.2-4.5 Lipid 1996 panel - 07/12/16 08:24 Serum or plasma triglyceride measurement (mass/volume) 88 mg/dL <150 Serum or plasma cholesterol measurement (mass/volume) 192 mg/dL < 200 Serum or plasma cholesterol in HDL measurement (mass/v olume) 39 mg/dL 40-60 Cholesterol in LDL [mass/volume] in serum or plasma by direct assay 145 mg/dL 1-129 Serum or plasma cholesterol in VLDL measurement (mass/ volume) 18 mg/dL 5-40 Methicillin resistant Staphylococcus aur eus (MRSA) screening culture - 07/12/16 08:24 Methicillin resistant Staphylococcus aureus (MRSA) scr eening culture NEG [facility] Comprehensive metabolic panel - 09/08/16 09:40 Serum or plasma sodium measurement (moles/volume) 145 mmol/L 135-145 Serum or plasma potassium measurement (moles/volume) 4.8 mmol/L 3.6-5.0 Serum or plasma chloride measurement (moles/volume) 108 mmol/L 98-107 Carbon dioxide 29 mmol/L 21-32 Serum or plasma anion gap determination (moles/volume) 8 mmol/L 5-14 Serum or plasma urea nitrogen measurement (mass/volume ) 11 mg/dL 7-18 Serum or plasma creatinine measurement (mass/volume) 1.07 mg/dL 0.60-1.30 Serum or plasma urea nitrogen/creatinine mass ratio 10 NRG Serum or plasma creatinine measurement w ith calculation of estimated glomerular filtration rate > NRG Serum or plasma glucose measurement (mass/volume) 129 mg/dL 70-105 Serum or plasma calcium measurement (mass/volume) 9.3 mg/dL 8.5-10.1 Serum or plasma total bilirubin measurement (mass/volu me) 0.3 mg/dL 0.1-1.0 Serum or plasma alkaline phosphatase wayne surement (enzymatic activity/volume) 58 U/L 40-136 Serum or plasma aspartate aminotransfera se measurement (enzymatic activity/volume) 19 U/L 5-34 Serum or plasma alanine aminotransferase measurement (enzymatic activity/volume) 28 U/L 0-55 Serum or plasma protein measurement (mass/volume) 6.9 g/dL 6.4-8.2 Serum or plasma albumin measurement (mass/volume) 4.2 g/dL 3.2-4.5 Lipid 1996 panel - 09/08/16 09:40 Serum or plasma triglyceride measurement (mass/volume) 76 mg/dL <150 Serum or plasma cholesterol measurement (mass/volume) 140 mg/dL < 200 Serum or plasma cholesterol in HDL measurement (mass/v olume) 32 mg/dL 40-60 Cholesterol in LDL [mass/volume] in serum or plasma by direct assay 91 mg/dL 1-129 Serum or plasma cholesterol in VLDL measurement (mass/ volume) 15 mg/dL 5-40 [id number] - 09/19/16 10:41 Serum or plasma urea nitrogen measurement (mass/volume ) 13 mg/dL 7-18 Serum or plasma creatinine measurement (mass/volume) 1.07 mg/dL 0.60-1.30 Serum or plasma urea nitrogen/creatinine mass ratio 12 NRG Serum or plasma creatinine measurement w ith calculation of estimated glomerular filtration rate > NRG Comprehensive metabolic panel - 10/18/16 16:00 Serum or plasma sodium measurement (moles/volume) 143 mmol/L 135-145 Serum or plasma potassium measurement (moles/volume) 4.0 mmol/L 3.6-5.0 Serum or plasma chloride measurement (moles/volume) 107 mmol/L 98-107 Carbon dioxide 28 mmol/L 21-32 Serum or plasma anion gap determination (moles/volume) 8 mmol/L 5-14 Serum or plasma urea nitrogen measurement (mass/volume ) 9 mg/dL 7-18 Serum or plasma creatinine measurement (mass/volume) 0.96 mg/dL 0.60-1.30 Serum or plasma urea nitrogen/creatinine mass ratio 9 NRG Serum or plasma creatinine measurement w ith calculation of estimated glomerular filtration rate > NRG Serum or plasma glucose measurement (mass/volume) 140 mg/dL 70-105 Serum or plasma calcium measurement (mass/volume) 9.5 mg/dL 8.5-10.1 Serum or plasma total bilirubin measurement (mass/volu me) 0.3 mg/dL 0.1-1.0 Serum or plasma alkaline phosphatase wayne surement (enzymatic activity/volume) 59 U/L 40-136 Serum or plasma aspartate aminotransfera se measurement (enzymatic activity/volume) 16 U/L 5-34 Serum or plasma alanine aminotransferase measurement (enzymatic activity/volume) 29 U/L 0-55 Serum or plasma protein measurement (mass/volume) 6.7 g/dL 6.4-8.2 Serum or plasma albumin measurement (mass/volume) 4.2 g/dL 3.2-4.5 Lipid 1996 panel - 10/18/16 16:00 Serum or plasma triglyceride measurement (mass/volume) 98 mg/dL <150 Serum or plasma cholesterol measurement (mass/volume) 130 mg/dL < 200 Serum or plasma cholesterol in HDL measurement (mass/v olume) 44 mg/dL 40-60 Cholesterol in LDL [mass/volume] in serum or plasma by direct assay 71 mg/dL 1-129 Serum or plasma cholesterol in VLDL measurement (mass/ volume) 20 mg/dL 5-40 THYROID STIMULATING HORMONE - 10/18/16 1 6:00 THYROID STIMULATING HORMONE 0.67 u[iU]/mL 0.35-4.94 CBC With Differential/Platelet - 7 11:41 WBC 12.5 x10E3/uL 3.4-10.8 RBC 4.95 x10E6/uL 4.14-5.80 Hemoglobin 14.6 g/dL 12.6-17.7 Hematocrit 44.5 % 37.5-51.0 MCV 90 fL 79-97 MCH 29.5 pg 26.6-33.0 MCHC 32.8 g/dL 31.5-35.7 RDW 13.3 % 12.3-15.4 Platelets 355 x10E3/uL 150-379 Neutrophils 62 % Lymphs 27 % Monocytes 8 % Eos 2 % Basos 1 % Neutrophils (Absolute) 7.8 x10E3/uL 1.4- 7.0 Lymphs (Absolute) 3.4 x10E3/uL 0.7-3.1 Monocytes(Absolute) 1.0 x10E3/uL 0.1-0.9 Eos (Absolute) 0.2 x10E3/uL 0.0-0.4 Baso (Absolute) 0.1 x10E3/uL 0.0-0.2 Immature Granulocytes 0 % Immature Grans (Abs) 0.0 x10E3/uL 0.0-0. 1 CBC With Differential/Platelet - 7 10:25 WBC 11.7 x10E3/uL 3.4-10.8 RBC 4.99 x10E6/uL 4.14-5.80 Hemoglobin 14.9 g/dL 12.6-17.7 Hematocrit 44.4 % 37.5-51.0 MCV 89 fL 79-97 MCH 29.9 pg 26.6-33.0 MCHC 33.6 g/dL 31.5-35.7 RDW 13.7 % 12.3-15.4 Platelets 390 x10E3/uL 150-379 Neutrophils 58 % Lymphs 30 % Monocytes 9 % Eos 2 % Basos 0 % Neutrophils (Absolute) 6.8 x10E3/uL 1.4- 7.0 Lymphs (Absolute) 3.4 x10E3/uL 0.7-3.1 Monocytes(Absolute) 1.0 x10E3/uL 0.1-0.9 Eos (Absolute) 0.3 x10E3/uL 0.0-0.4 Baso (Absolute) 0.0 x10E3/uL 0.0-0.2 Immature Granulocytes 1 % Immature Grans (Abs) 0.1 x10E3/uL 0.0-0. 1 Hematopath Consultation, Smear - 7 10:25 WBC Note: RBC Normal PLTs Comment [...] Basos 0 % Neutrophils Absolute 7.2 X10E3/uL 1.4-7. 0 Lymphs (Absolute) 2.3 X10E3/uL 0.7-3.1 Monocytes(Absolute) 0.8 X10E3/uL 0.1-0.9 Eos (Absolute Value) 0.1 X10E3/uL 0.0-0. 4 Baso(Absolute) 0.0 X10E3/uL 0.0-0.2 Differential Comment Note: RBC Comment Note: Normal Platelet Comment Note: Adequate TSH - 01/12/17 11:50 TSH 1.660 uIU/mL 0.450-4.500 Methicillin resistant Staphylococcus aur eus (MRSA) screening culture - 07/13/17 10:40 Methicillin resistant Staphylococcus aureus (MRSA) scr eening culture NEG NRG Capillary blood glucose measurement by g lucometer (mass/volume) - 07/13/17 10:53 Capillary blood glucose measurement by glucometer (mas s/volume) 132 mg/dL 70-110 Bacteria identification in isolate by an aerobe culture - 08/18/17 11:11 Bacteria identification in isolate by anaerobe culture NOANA NRG Gram stain microscopy - 08/18/17 11:11 GRAM STAIN RESULT NO WBC'S OR BACTERIA OBSERVED NRG Bacteria identification in wound by cult ure - 08/18/17 11:11 Bacteria identification in wound by culture [id number] NR FREE TEXT EXTERNAL SENSITIVITY REPORTED 08/21/17 7: 50 NRG QUANTITY OF GROWTH Scant Growth NRG MRSA AGAR Screening test for MRSA is N EGATIVE (Final to follow) NR Bacterial susceptibility panel - 8 11:11 Gentamicin susceptibility test by minimum inhibitory c oncentration >= NRG Trimethoprim/sulfamethoxazole susceptibi lity test by minimum inhibitoryconcentration R NRG Ampicillin susceptibility test by minimum inhibitory c oncentration >= NRG Tobramycin susceptibility test by minimum inhibitory c oncentration 8 NRG Cefazolin susceptibility test by minimum inhibitory co ncentration 8 NRG Ceftriaxone susceptibility test by minimum inhibitory concentration <= NRG Ampicillin/sulbactam susceptibility test by minimum inhibitory concentration R NRG Piperacillin/tazobactam susceptibility t est by minimum inhibitory concentration S NRG Ciprofloxacin susceptibility test by minimum inhibitor y concentration <= NRG Meropenem susceptibility test by minimum inhibitory co ncentration <= NRG Aztreonam susceptibility test by minimum inhibitory co ncentration <= NRG Extended spectrum beta lactamase (ESBL) producing bacteria susceptibility test by minimum inhibitory concentration - NRG Amikacin susceptibility test by minimum inhibitory con centration S [facility] Bacterial susceptibility panel - 8 11:11 Oxacillin susceptibility test by minimum inhibitory co ncentration <= NRG Gentamicin susceptibility test by minimum inhibitory c oncentration <= NRG Clindamycin susceptibility test by minimum inhibitory concentration <= NRG Erythromycin susceptibility test by minimum inhibitory concentration 0.5 NRG Trimethoprim/sulfamethoxazole susceptibi lity test by minimum inhibitoryconcentration S NRG Vancomycin susceptibility test by minimum inhibitory c oncentration <= NRG Levofloxacin susceptibility test by minimum inhibitory concentration <= NRG Rifampin susceptibility test by minimum inhibitory con centration <= NRG Tetracycline susceptibility test by minimum inhibitory concentration >= NRG Linezolid susceptibility test by minimum inhibitory co ncentration 1 [facility] Bacterial susceptibility panel - 8 11:11 Oxacillin susceptibility test by minimum inhibitory co ncentration <= NRG Gentamicin susceptibility test by minimum inhibitory c oncentration <= NRG Clindamycin susceptibility test by minimum inhibitory concentration <= NRG Erythromycin susceptibility test by minimum inhibitory concentration <= NRG Trimethoprim/sulfamethoxazole susceptibi lity test by minimum inhibitoryconcentration S NRG Vancomycin susceptibility test by minimum inhibitory c oncentration 1 NRG Levofloxacin susceptibility test by minimum inhibitory concentration <= NRG Rifampin susceptibility test by minimum inhibitory con centration <= NRG Tetracycline susceptibility test by minimum inhibitory concentration <= NRG Bacteria identification in isolate by an aerobe culture - 09/25/17 10:00 Bacteria identification in isolate by anaerobe culture NG NRG Gram stain microscopy - 09/25/17 10:00 GRAM STAIN RESULT FEW WBC'S, NO BACTERIA OBSERVED NRG Bacteria identification in wound by cult ure - 09/25/17 10:00 Bacteria identification in wound by culture NG NRG Hemoglobin A1c - 10/31/17 13:50 Blood hemoglobin A1C measurement (mass/volume) 6.7 % 4.0-5.6 MEAN BLOOD GLUCOSE 146 % <=126 Automated blood complete blood count (he mogram) panel - 11/07/17 08:09 Blood leukocytes automated count (number/volume) 10.6 10*3/uL 4.3-11.0 Blood erythrocytes automated count (number/volume) 4.74 10*6/uL 4.35-5.85 Venous blood hemoglobin measurement (mass/volume) 14.0 g/dL 13.3-17.7 Blood hematocrit (volume fraction) 42 % 40-54 Automated erythrocyte mean corpuscular volume 88 [ foz_us] 80-99 Automated erythrocyte mean corpuscular h emoglobin (mass per erythrocyte) 30 pg 25-34 Automated erythrocyte mean corpuscular h emoglobin concentration measurement (mass/volume) 34 g/dL 32-36 Automated erythrocyte distribution width ratio 14. 5 % 10.0- 14.5 Automated blood platelet count (count/volume) 385 10*3/uL 130-400 Automated blood platelet mean volume measurement 9.2 [foz_us] 7.4-10.4 PT panel in platelet poor plasma by coag ulation assay - 11/07/17 08:09 Prothrombin time (PT) in platelet poor plasma by coagu lation assay 12.9 s 12.2-14.7 INR in platelet poor plasma or blood by coagulation as say 1.0 0.8-1.4 Activated partial thromboplastin time (a PTT) in platelet poor plasma bycoagulation assay - 11/07/17 08:09 Activated partial thromboplastin time (a PTT) in platelet poor plasma bycoagulation assay 27 s 24-35 Comprehensive metabolic panel - 11/07/17 08:09 Serum or plasma sodium measurement (moles/volume) 142 mmol/L 135-145 Serum or plasma potassium measurement (moles/volume) 3.7 mmol/L 3.6-5.0 Serum or plasma chloride measurement (moles/volume) 104 mmol/L 98-107 Carbon dioxide 25 mmol/L 21-32 Serum or plasma anion gap determination (moles/volume) 13 mmol/L 5-14 Serum or plasma urea nitrogen measurement (mass/volume ) 7 mg/dL 7-18 Serum or plasma creatinine measurement (mass/volume) 0.93 mg/dL 0.60-1.30 Serum or plasma urea nitrogen/creatinine mass ratio 8 NRG Serum or plasma creatinine measurement w ith calculation of estimated glomerular filtration rate > NRG Serum or plasma glucose measurement (mass/volume) 121 mg/dL 70-105 Serum or plasma calcium measurement (mass/volume) 9.0 mg/dL 8.5-10.1 Serum or plasma total bilirubin measurement (mass/volu me) 0.3 mg/dL 0.1-1.0 Serum or plasma alkaline phosphatase wayne surement (enzymatic activity/volume) 62 U/L 40-136 Serum or plasma aspartate aminotransfera se measurement (enzymatic activity/volume) 20 U/L 5-34 Serum or plasma alanine aminotransferase measurement (enzymatic activity/volume) 38 U/L 0-55 Serum or plasma protein measurement (mass/volume) 7.3 g/dL 6.4-8.2 Serum or plasma albumin measurement (mass/volume) 4.3 g/dL 3.2-4.5 Lipid 1996 panel - 11/07/17 08:09 Serum or plasma triglyceride measurement (mass/volume) 96 mg/dL <150 Serum or plasma cholesterol measurement (mass/volume) 139 mg/dL < 200 Serum or plasma cholesterol in HDL measurement (mass/v olume) 43 mg/dL 40-60 Cholesterol in LDL [mass/volume] in serum or plasma by direct assay 84 mg/dL 1-129 Serum or plasma cholesterol in VLDL measurement (mass/ volume) 19 mg/dL 5-40 Methicillin resistant Staphylococcus aur eus (MRSA) screening culture - 11/07/17 08:09 Methicillin resistant Staphylococcus aureus (MRSA) scr eening culture NEG NRG Bacteria identification in isolate by an aerobe culture - 11/08/17 10:45 Bacteria identification in isolate by anaerobe culture [facility] Gram stain microscopy - 11/08/17 10:45 GRAM STAIN RESULT NO WBC'S OR BACTERIA OBSERVED NRG Bacteria identification in wound by cult ure - 11/08/17 10:45 Bacteria identification in wound by culture NG NRG CBC - 11/30/17 11:00 WHITE BLOOD CELL COUNT 13.1 Thousand/uL 3.8-10.8 RED BLOOD CELL COUNT 4.72 Million/uL 4.2 0-5.80 HEMOGLOBIN 13.8 g/dL 13.2-17.1 HEMATOCRIT 42.4 % 38.5-50.0 MCV 89.8 fL 80.0-100.0 MCH 29.2 pg 27.0-33.0 MCHC 32.5 g/dL 32.0-36.0 RDW 13.2 % 11.0-15.0 PLATELET COUNT 383 Thousand/uL 140-400 MPV 9.8 fL 7.5-12.5 ABSOLUTE NEUTROPHILS 9209 cells/uL 1500- 7800 ABSOLUTE LYMPHOCYTES 2699 cells/uL 850-3 900 ABSOLUTE MONOCYTES 1035 cells/uL 200-950 ABSOLUTE EOSINOPHILS 92 cells/uL 15-500 ABSOLUTE BASOPHILS 66 cells/uL 0-200 NEUTROPHILS 70.3 % NRG LYMPHOCYTES 20.6 % NRG MONOCYTES 7.9 % NRG EOSINOPHILS 0.7 % NRG BASOPHILS 0.5 % NRG CMP - 03/07/18 09:55 GLUCOSE 94 mg/dL 65-99 UREA NITROGEN (BUN) 14 mg/dL 7-25 CREATININE 1.09 mg/dL 0.70-1.33 eGFR NON-AFR. MAURITANIAN 75 mL/min/1.73m2 > OR = 60 eGFR 87 mL/min/1.73m2 > OR = 60 BUN/CREATININE RATIO NOT APPLICABLE (calc) 6-22 SODIUM 143 mmol/L 135-146 POTASSIUM 4.1 mmol/L 3.5-5.3 CHLORIDE 104 mmol/L 98-110 CARBON DIOXIDE 28 mmol/L 20-32 CALCIUM 9.8 mg/dL 8.6-10.3 PROTEIN, TOTAL 7.4 g/dL 6.1-8.1 ALBUMIN 4.7 g/dL 3.6-5.1 GLOBULIN 2.7 g/dL (calc) 1.9-3.7 ALBUMIN/GLOBULIN RATIO 1.7 (calc) 1.0-2. 5 BILIRUBIN, TOTAL 0.4 mg/dL 0.2-1.2 ALKALINE PHOSPHATASE 59 U/L 40-115 AST 19 U/L 10-35 ALT 34 U/L 9-46 CBC - 03/07/18 09:55 WHITE BLOOD CELL COUNT 11.2 Thousand/uL 3.8-10.8 RED BLOOD CELL COUNT 5.02 Million/uL 4.2 0-5.80 HEMOGLOBIN 14.7 g/dL 13.2-17.1 HEMATOCRIT 44.5 % 38.5-50.0 MCV 88.6 fL 80.0-100.0 MCH 29.3 pg 27.0-33.0 MCHC 33.0 g/dL 32.0-36.0 RDW 12.7 % 11.0-15.0 PLATELET COUNT 354 Thousand/uL 140-400 MPV 9.9 fL 7.5-12.5 ABSOLUTE NEUTROPHILS 6810 cells/uL 1500- 7800 ABSOLUTE LYMPHOCYTES 3259 cells/uL 850-3 900 ABSOLUTE MONOCYTES 896 cells/uL 200-950 ABSOLUTE EOSINOPHILS 168 cells/uL 15-500 ABSOLUTE BASOPHILS 67 cells/uL 0-200 NEUTROPHILS 60.8 % NRG LYMPHOCYTES 29.1 % NRG MONOCYTES 8.0 % NRG EOSINOPHILS 1.5 % NRG BASOPHILS 0.6 % NRG Complete blood count (CBC) with automate d white blood cell (WBC) differential - 04/06/18 12:35 Blood leukocytes automated count (number/volume) 14.9 10*3/uL 4.3-11.0 Blood erythrocytes automated count (number/volume) 5.11 10*6/uL 4.35-5.85 Venous blood hemoglobin measurement (mass/volume) 14.8 g/dL 13.3-17.7 Blood hematocrit (volume fraction) 43 % 40-54 Automated erythrocyte mean corpuscular volume 85 [ foz_us] 80-99 Automated erythrocyte mean corpuscular h emoglobin (mass per erythrocyte) 29 pg 25-34 Automated erythrocyte mean corpuscular h emoglobin concentration measurement (mass/volume) 34 g/dL 32-36 Automated erythrocyte distribution width ratio 13. 6 % 10.0- 14.5 Automated blood platelet count (count/volume) 437 10*3/uL 130-400 Automated blood platelet mean volume measurement 9.5 [foz_us] 7.4-10.4 Automated blood neutrophils/100 leukocytes 70 % 42-75 Automated blood lymphocytes/100 leukocytes 20 % 12-44 Blood monocytes/100 leukocytes 9 % 0-12 Automated blood eosinophils/100 leukocytes 0 % 0-10 Automated blood basophils/100 leukocytes 1 % 0-10 Blood neutrophils automated count (number/volume) 10.5 10*3 1.8-7.8 Blood lymphocytes automated count (number/volume) 3.0 10*3 1.0-4.0 Blood monocytes automated count (number/volume) 1. 4 10*3 0.0-1.0 Automated eosinophil count 0.0 10*3/uL 0 .0-0.3 Automated blood basophil count (count/volume) 0.1 10*3/uL 0.0-0.1 Blood manual differential performed dete ction - 04/06/18 12:35 Blood monocytes/100 leukocytes 11 % NRG Manual blood segmented neutrophils/100 leukocytes 75 % NRG Manual blood lymphocytes/100 leukocytes 14 % NRG Blood erythrocyte morphology finding identification NORMAL NRG Comprehensive metabolic panel - 04/06/18 12:35 Serum or plasma sodium measurement (moles/volume) 138 mmol/L 135-145 Serum or plasma potassium measurement (moles/volume) 3.7 mmol/L 3.6-5.0 Serum or plasma chloride measurement (moles/volume) 100 mmol/L 98-107 Carbon dioxide 23 mmol/L 21-32 Serum or plasma anion gap determination (moles/volume) 15 mmol/L 5-14 Serum or plasma urea nitrogen measurement (mass/volume ) 20 mg/dL 7-18 Serum or plasma creatinine measurement (mass/volume) 1.28 mg/dL 0.60-1.30 Serum or plasma urea nitrogen/creatinine mass ratio 16 NRG Serum or plasma creatinine measurement w ith calculation of estimated glomerular filtration rate 58 NRG Serum or plasma glucose measurement (mass/volume) 120 mg/dL 70-105 Serum or plasma calcium measurement (mass/volume) 9.9 mg/dL 8.5-10.1 Serum or plasma total bilirubin measurement (mass/volu me) 0.6 mg/dL 0.1-1.0 Serum or plasma alkaline phosphatase wayne surement (enzymatic activity/volume) 49 U/L 40-136 Serum or plasma aspartate aminotransfera se measurement (enzymatic activity/volume) 22 U/L 5-34 Serum or plasma alanine aminotransferase measurement (enzymatic activity/volume) 31 U/L 0-55 Serum or plasma protein measurement (mass/volume) 7.8 g/dL 6.4-8.2 Serum or plasma albumin measurement (mass/volume) 4.8 g/dL 3.2-4.5 Serum or plasma C reactive protein measu rement (mass/volume) - 04/06/18 12:35 Serum or plasma C reactive protein measurement (mass/v olume) 0.57 mg/dL 0.00-0.50 Arterial blood gas measurement - 8 09:06 Blood pCO2 36 mm[Hg] 35-45 Blood pO2 70 mm[Hg] 79-93 Arterial blood bicarbonate measurement (moles/volume) 24 mmol/L 23-27 Arterial blood base excess by calculation -0.5 mmo l/L -2.5-2.5 Arterial blood oxygen saturation measurement 97 % 94-100 * Inhaled oxygen flow rate 0 NRG Arterial blood pH measurement with patient temperature correction 7.43 7.37-7.43 Arterial blood carbon dioxide, total measurement (mole s/volume) 24.6 mmol/L 21.0-31.0 Body site L BRACHIAL NRG Assessment of wrist artery patency prior to arterial p uncture POSITIVE NRG Setting of ventilation mode NO NR G Measurement of body temperature 97.1 NRG CBC - 09/11/18 09:55 WHITE BLOOD CELL COUNT 11.0 Thousand/uL 3.8-10.8 RED BLOOD CELL COUNT 4.69 Million/uL 4.2 0-5.80 HEMOGLOBIN 13.8 g/dL 13.2-17.1 HEMATOCRIT 41.2 % 38.5-50.0 MCV 87.8 fL 80.0-100.0 MCH 29.4 pg 27.0-33.0 MCHC 33.5 g/dL 32.0-36.0 RDW 12.6 % 11.0-15.0 PLATELET COUNT 421 Thousand/uL 140-400 MPV 10.3 fL 7.5-12.5 ABSOLUTE NEUTROPHILS 6171 cells/uL 1500- 7800 ABSOLUTE LYMPHOCYTES 3575 cells/uL 850-3 900 ABSOLUTE MONOCYTES 957 cells/uL 200-950 ABSOLUTE EOSINOPHILS 231 cells/uL 15-500 ABSOLUTE BASOPHILS 66 cells/uL 0-200 NEUTROPHILS 56.1 % NRG LYMPHOCYTES 32.5 % NRG MONOCYTES 8.7 % NRG EOSINOPHILS 2.1 % NRG BASOPHILS 0.6 % NRG CBC - 12/13/18 12:11 WHITE BLOOD CELL COUNT 9.7 Thousand/uL 3 .8-10.8 RED BLOOD CELL COUNT 4.66 Million/uL 4.2 0-5.80 HEMOGLOBIN 13.1 g/dL 13.2-17.1 HEMATOCRIT 41.7 % 38.5-50.0 MCV 89.5 fL 80.0-100.0 MCH 28.1 pg 27.0-33.0 MCHC 31.4 g/dL 32.0-36.0 RDW 13.2 % 11.0-15.0 PLATELET COUNT 432 Thousand/uL 140-400 MPV 10.4 fL 7.5-12.5 ABSOLUTE NEUTROPHILS 6315 cells/uL 1500- 7800 ABSOLUTE LYMPHOCYTES 2357 cells/uL 850-3 900 ABSOLUTE MONOCYTES 776 cells/uL 200-950 ABSOLUTE EOSINOPHILS 194 cells/uL 15-500 ABSOLUTE BASOPHILS 58 cells/uL 0-200 NEUTROPHILS 65.1 % NRG LYMPHOCYTES 24.3 % NRG MONOCYTES 8.0 % NRG EOSINOPHILS 2.0 % NRG BASOPHILS 0.6 % NRG Methicillin resistant Staphylococcus aur eus (MRSA) screening culture - 03/14/19 10:55 Methicillin resistant Staphylococcus aureus (MRSA) scr eening culture NEG NRG Capillary blood glucose measurement by g lucometer (mass/volume) - 03/20/19 07:54 Capillary blood glucose measurement by glucometer (mas s/volume) 147 mg/dL 70-110 LIPID PANEL - 10/10/19 09:04 CHOLESTEROL, TOTAL 107 mg/dL <200 HDL CHOLESTEROL 42 mg/dL > OR = 40 TRIGLYCERIDES 133 mg/dL <150 LDL-CHOLESTEROL 44 mg/dL (calc) NRG CHOL/HDLC RATIO 2.5 (calc) <5.0 NON HDL CHOLESTEROL 65 mg/dL (calc) <130 CMP - 10/10/19 09:04 GLUCOSE 133 mg/dL 65-99 UREA NITROGEN (BUN) 12 mg/dL 7-25 CREATININE 0.95 mg/dL 0.70-1.33 eGFR NON-AFR. MAURITANIAN 88 mL/min/1.73m2 > OR = 60 eGFR 102 mL/min/1.73m2 > OR = 60 BUN/CREATININE RATIO NOT APPLICABLE (calc) 6-22 SODIUM 142 mmol/L 135-146 POTASSIUM 4.7 mmol/L 3.5-5.3 CHLORIDE 107 mmol/L 98-110 CARBON DIOXIDE 26 mmol/L 20-32 CALCIUM 9.1 mg/dL 8.6-10.3 PROTEIN, TOTAL 6.4 g/dL 6.1-8.1 ALBUMIN 4.2 g/dL 3.6-5.1 GLOBULIN 2.2 g/dL (calc) 1.9-3.7 ALBUMIN/GLOBULIN RATIO 1.9 (calc) 1.0-2. 5 BILIRUBIN, TOTAL 0.4 mg/dL 0.2-1.2 ALKALINE PHOSPHATASE 53 U/L 35-144 AST 20 U/L 10-35 ALT 27 U/L 9-46 CBC - 10/10/19 09:04 WHITE BLOOD CELL COUNT 10.3 Thousand/uL 3.8-10.8 RED BLOOD CELL COUNT 4.65 Million/uL 4.2 0-5.80 HEMOGLOBIN 12.4 g/dL 13.2-17.1 HEMATOCRIT 39.3 % 38.5-50.0 MCV 84.5 fL 80.0-100.0 MCH 26.7 pg 27.0-33.0 MCHC 31.6 g/dL 32.0-36.0 RDW 13.9 % 11.0-15.0 PLATELET COUNT 470 Thousand/uL 140-400 MPV 10.4 fL 7.5-12.5 ABSOLUTE NEUTROPHILS 6273 cells/uL 1500- 7800 ABSOLUTE LYMPHOCYTES 2730 cells/uL 850-3 900 ABSOLUTE MONOCYTES 958 cells/uL 200-950 ABSOLUTE EOSINOPHILS 258 cells/uL 15-500 ABSOLUTE BASOPHILS 82 cells/uL 0-200 NEUTROPHILS 60.9 % NRG LYMPHOCYTES 26.5 % NRG MONOCYTES 9.3 % NRG EOSINOPHILS 2.5 % NRG BASOPHILS 0.8 % NRG ANEMIA PANEL - 10/11/19 11:17 IRON, TOTAL 94 mcg/dL 50-180 FERRITIN 11 ng/mL 38-380 IRON BINDING CAPACITY 453 mcg/dL (calc) 250-425 % SATURATION 21 % (calc) 20-48 Coronavirus SARS-CoV-2 SO 2018 - 0 08:11 Coronavirus Ab [Units/volume] in Serum Negative Negative Encounters ACCT No. Visit Date/Time Discharge Status Pt. Type Provider Facility Loc./Unit Complaint [id number] 02/13/2017 12:59:00 03/17/2017 13:35: 00 DIS Outpatient MOHINI BARLOW [id number] 03/23/2016 15:24:00 06/01/2016 14:40: 00 DIS Outpatient MAN LEO [id number] 11/05/2016 08:06:00 Document Registration [id number] 01/10/2017 20:08:00 Document Registration [id number] 11/14/2019 05:43:00 020 15:05:00 DIS Outpatient YESICA WOLFE DO [facility] PREOP COLONOSCOPY/EGD [id number] 06/06/2019 09:24:00 00:01:00 DIS Outpatient JOHN HUFFMAN WEATH[employer]IZATION CREW LEADER [facility] PULM TOBACCO USER, S OB [id number] 08/12/2019 14:09:00 23:59:59 CLS Outpatient JOHN HUFFMAN WE[employer]ATION CREW LEADER [facility] RT COPD [id number] 06/20/2019 12:02:00 23:59:59 CLS Outpatient JOHN HUFFMAN WEATHER[employer]ATION CREW LEADER [facility] RAD TOBACCO USER [id number] 04/08/2019 09:04:00 13:44:00 DIS Outpatient MAN LEO MD [facility] REHAB S/P R BICEPS TENOTOMY; R LONG FINGER A1 LINDA RELE [id number] 05/07/2019 09:30:00 00:01:00 DIS Outpatient JOHN HUFFMAN WEATH[employer]ATION CREW LEADER [facility] PULM TOBACCO USER, S OB [id number] 04/08/2019 14:48:00 23:59:59 CLS Preadmit JOHN HUFFMAN WEATH[employer]ATION CREW LEADER [facility] RAD SOB [id number] 03/20/2019 07:41:00 12:25:00 DIS Outpatient MAN LEO MD [facility] SDC RIGHT ROTATOR CUFF TEA R, RIGHT LONG TRIGGER FINGER [id number] 03/14/2019 10:24:00 11:21:00 DIS Outpatient MAN LEO MD [facility] PREOP RIGHT ROTATOR CUFF TEA R, RIGHT LONG TRIGGER FINGER [id number] 12/07/2018 08:37:00 23:59:59 CLS Outpatient MYRTLE JOHNSON WEATH[employer]ATION CREW LEADER [facility] RAD NECK PAIN [id number] 07/09/2018 10:05:00 03/14/2 019 12:03:00 DIS Outpatient POTTS, ANUP D SENIOR JAVA ENGINEER [facility] REHAB R SHOULDER SMALL RCT [id number] 08/13/2018 00:10:00 23:59:59 CLS Preadmit JOHN HUFFMAN WEATH[employer]ATION CREW LEADER [facility] PULM SOB,COPD,ASTHMA [id number] 07/05/2018 10:00:00 00:01:00 DIS Outpatient JOHN HUFFMAN WEATH[employer]ATION CREW LEADER [facility] PUL SOB,COPD,ASTHMA [id number] 06/18/2018 10:45:00 23:59:59 CLS Preadmit DORIS LAYTON MD [facility] J43.1 PANLOBULAR EMPHYZ ROBERTO [id number] 04/12/2018 10:00:00 00:01:00 DIS Outpatient DORIS LAYTON MD [facility] J43.1 PANLOBULAR EMPHYZ ROBERTO [id number] 05/23/2018 15:11:00 018 23:59:59 CLS Outpatient ANUP POTTS SENIOR JAVA ENGINEER [facility] RAD ROTATOR CUFF TEAR PARTI AL RIGHT [id number] 05/15/2018 16:53:00 018 23:59:59 CLS Preadmit JOHN HUFFMAN WEATHERIZATION CREW LEADER [facility] RAD COPD,TOBACCO US E [id number] 04/11/2018 08:42:00 018 23:59:59 CLS Outpatient JONH HUFFMAN WEATHERIZATION CREW LEADER [facility] RT SOB [id number] 04/06/2018 11:27:00 15:35:00 DIS Emergency RACHEL WEBER, NARAYAN Han [facility] ER EAR PAIN [id number] 04/03/2018 14:31:00 018 15:21:00 DIS Emergency AMY JESUS [facility] ER L EAR PAIN [id number] 03/26/2018 13:48:00 23:59:59 CLS Preadmit JOHN HUFFMAN APRN [facility] RAD SOB [id number] 03/21/2018 10:11:00 23:59:59 CLS Outpatient DORIS LAYTON MD [facility] RAD LUMBAR BACK PAIN [id number] 12/11/2017 09:37:00 23:59:59 CLS Outpatient MAN ALVARES MD [facility] WOUNDCARE [id number] 12/05/2017 14:50:00 23:59:59 CLS Outpatient MAN ALVARES MD [facility] WOUNDCARE [id number] 11/27/2017 09:59:00 23:59:59 CLS Outpatient MAN ALVARES MD [facility] WOUNDCARE [id number] 11/20/2017 09:55:00 018 23:59:59 CLS Outpatient MAN ALVARES MD [facility] WOUNDCARE [id number] 11/13/2017 10:25:00 018 23:59:59 CLS Outpatient JOE WEBER FACC, MAGDA SUN CC DS [facility] LAB R06.02,I25. 10 [id number] 11/13/2017 09:48:00 018 23:59:59 CLS Outpatient MAN ALVARES MD [facility] WOUNDCARE [id number] 11/08/2017 09:59:00 018 23:59:59 CLS Outpatient MAN ALVARES MD [facility] WOUNDCARE [id number] 11/07/2017 07:21:00 14:15:00 DIS Outpatient JOE WEBER FACC, MAGDA SUN CC DS [facility] CATH CAD,ANGINA, SOB,FATIGUE [id number] 10/31/2017 13:43:00 018 23:59:59 CLS Outpatient MAN ALVARES MD [facility] LAB T81.31XA,L98.492 [id number] 10/31/2017 12:36:00 23:59:59 CLS Outpatient MAN ALVARES MD [facility] [id number] 10/23/2017 09:53:00 018 23:59:59 CLS Outpatient MAN ALVARES MD [facility] [id number] 10/16/2017 09:39:00 23:59:59 CLS Outpatient MAN ALVARES MD [facility] [id number] 10/09/2017 09:47:00 23:59:59 CLS Outpatient MAN ALVARES MD [facility] [id number] 10/04/2017 12:34:00 23:59:59 CLS Outpatient MAN ALVARES MD [facility] [id number] 09/25/2017 09:48:00 018 23:59:59 CLS Outpatient MAN ALVARES MD [facility] [id number] 09/18/2017 09:33:00 23:59:59 CLS Outpatient MAN ALVARES MD [facility] [id number] 09/11/2017 09:49:00 018 23:59:59 CLS Outpatient MAN ALVARES MD [facility] WOUNDCARE [id number] 09/04/2017 09:45:00 018 23:59:59 CLS Outpatient MAN ALVARES MD [facility] WOUNDCARE [id number] 08/31/2017 09:59:00 018 23:59:59 CLS Outpatient DYLAN PRADHAN MD [facility] [id number] 08/28/2017 09:57:00 018 23:59:59 CLS Outpatient MAN ALVARES MD [facility] WOUNDCARE [id number] 08/25/2017 10:19:00 018 23:59:59 CLS Outpatient MAN ALVARES MD [facility] WOUNDCARE [id number] 08/25/2017 10:14:00 018 23:59:59 CLS Outpatient DORIS LAYTON MD [facility] RAD Z72.0 TOBACCO USE [id number] 08/18/2017 09:59:00 018 23:59:59 CLS Outpatient MAN ALVARES MD [facility] WOUNDCARE [id number] 08/15/2017 10:52:00 018 23:59:59 CLS Outpatient JOE WEBER FACC, MAGDA SUN CC DS [facility] CARD R06.02 SOB [id number] 07/13/2017 10:04:00 018 16:10:00 DIS Outpatient GALINA WALKER MD [facility] SDC LIPOMA [id number] 07/05/2017 05:29:00 018 11:19:00 DIS Outpatient GALINA WALKER MD [facility] PREOP LIPOMA [id number] 04/14/2017 11:38:00 017 23:59:59 CLS Outpatient EMELIA GLOVER [facility] LAB E78.4, I10 [id number] 01/17/2017 09:22:00 017 23:59:59 CLS Preadmit ASHWIN KRISHNAN [facility] ONC [id number] 11/15/2016 09:58:00 017 23:59:59 CLS Outpatient DORIS LAYTON MD [facility] RAD M47.892 [id number] 10/18/2016 15:55:00 017 23:59:59 CLS Outpatient EMELIA GLOVER [facility] LAB HLD,HTN,SOB [id number] 09/23/2016 10:01:00 017 10:56:00 DIS Outpatient NATHANIEL MONSIVAIS MD [facility] CARD DISC DISORDER [id number] 09/19/2016 10:30:00 017 23:59:59 CLS Outpatient MAN JOHNSON MD [facility] RAD SMOKER,CHRONIC SORE THR OAT [id number] 09/08/2016 09:31:00 017 23:59:59 CLS Outpatient EMELIA GLOVER [facility] LAB CAD,HTN [id number] 08/15/2016 12:39:00 017 14:01:00 DIS Outpatient NATHANIEL MONSIVAIS MD [facility] CARD DISC DISORDER [id number] 07/26/2016 10:59:00 017 23:59:59 CLS Outpatient JOE WEBER FACC, MAGDA SUN CC DS [facility] RAD LT LEG BHANU DICATION [id number] 07/26/2016 08:54:00 017 23:59:59 CLS Outpatient JOE WEBER FACC, MAGDA SUN CC DS [facility] CARD SOB,CHEST DISCOMFORT,HTN [id number] 07/21/2016 07:51:00 017 23:59:59 CLS Outpatient EMELIA GLOVER [facility] RAD POSTOPERATIVE G ROIN PSEUDOANEURYSM [id number] 07/20/2016 11:15:00 017 23:59:59 CLS Outpatient EMELIA GLOVER [facility] RAD RT GROIN PAIN [id number] 07/19/2016 20:20:00 017 23:59:59 CLS Outpatient JT FERNANDEZ DO [facility] SLEEP BARAK [id number] 07/12/2016 07:55:00 017 13:00:00 DIS Outpatient JOE WEBER FACC, MAGDA SUN CC DS [facility] CATH SOB,CHEST DISCOMFORT,HTN [id number] 06/29/2016 09:14:00 017 12:15:00 DIS Outpatient GALINA WALKER MD [facility] ENDO ABDOMINAL PAIN;REFLUX [id number] 06/23/2016 05:38:00 017 11:36:00 DIS Outpatient GALINA WALKER MD [facility] PREOP ABDOMINAL PAIN;REFLUX [id number] 06/02/2016 08:44:00 016 23:59:59 CLS Outpatient LARRY 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 [facility] CARD RUQ PAIN [id number] 05/20/2016 09:21:00 016 23:59:59 CLS Outpatient 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 [facility] RAD RUQ PAIN [id number] 05/18/2016 10:38:00 016 23:59:59 CLS Outpatient JT FERNANDEZ DO [facility] RAD COPD,OBESITY,TOBACCO US ER,ASTHMA [id number] 03/23/2016 13:51:00 23:59:59 CLS Outpatient DORIS LAYTON MD [facility] RAD OSTEOARTHRITIS OF SPINE [id number] 09/02/2015 12:42:00 016 23:59:59 CLS Outpatient DORIS LAYTON MD [facility] RAD ENLARGED LYMPH NODE IN NECK [id number] 08/27/2015 17:05:00 016 23:59:59 CLS Outpatient DORIS LAYTON MD [facility] LAB CT ANGIO HEAD W/O W C ONTRAST, BUN CREATINE [id number] 07/22/2015 10:03:00 016 23:59:59 CLS Outpatient DORIS LAYTON MD [facility] RAD NECK ABCESS [id number] 03/06/2015 07:02:00 07:51:00 DIS Outpatient NATHANIEL MONSIVAIS MD [facility] CARD DDD [id number] 01/27/2015 12:28:00 23:59:59 CLS Outpatient SURYA CABAN MD [facility] CARD CHEST PAIN,DYSPNEA [id number] 01/22/2015 14:42:00 23:59:59 CLS Outpatient KINJAL WEBER, DORIS Butcher [facility] RAD CHRONIC LBP,DEGENERATIV E ARTHRITIS OF C S/P [id number] 12/16/2014 11:13:00 23:59:59 CLS Outpatient ARSH WEBER, SURYA Miramontes [facility] CARD [id number] 11/26/2014 12:23:00 23:59:59 CLS Outpatient BAN CARD [facility] CARD [id number] 11/19/2019 11:20:00 P EN Preadmit YESICA WOLFE DO [facility] ENDO FE DEF ANEMIA/+OCCULT STOOL [id number] 09/05/2019 00:00:00 Document Registration [id number] 01/17/2018 09:26:00 Document Registration [id number] 2016 09:24:00 Document Registration [id number] 11/14/2019 09:40:00 11/14/2019 23:59: 59 CLS Outpatient DORIS LAYTON [facility] [id number] 10/11/2019 11:20:00 Document Registration [id number] 10/10/2019 09:20:00 Document Registration [id number] 12/13/2018 12:00:00 Document Registration [id number] 09/11/2018 09:40:00 Document Registration [id number] 03/07/2018 09:00:00 Document Registration [id number] 11/30/2017 09:40:00 Document Registration [id number] 12/13/2016 15:07:00 Document Registration [id number] 01/13/2017 08:07:00 Document Registration
[2019-11-19] MEDS ORDERED: HURRICAINE EXT TUBE (BENZOCAINE) XX ONE (11:00)
[2019-11-19 11:10] VITALS: BP 138/75
[2019-11-19 11:15] VITALS: BP 136/68
--- NOTE | 2019-11-19 11:15 | Progress Note-Post Operative ---
Post-Operative Progess Note Surgeon (s)/Tool Keeper (s) Surgeon YESICA WOLFE DO Tool Keeper: na Pre-Operative Diagnosis fe def anemia, occult +stool Post-Operative Diagnosis gastritis, hiatal hernia, normal colon Procedure & Operative Findings Date of Procedure 11/19/19 Procedure Performed/Findings egd c biopsies, colonoscopy Anesthesia Type per mda Estimated Blood Loss Estimated blood loss (mL): none Specimens/Packing Specimens Removed antrum, body, ge YESICA WOLFE DO Nov 19, 2019 11:15
[2019-11-19] MEDS ORDERED: PANT40TA2 PO (11:16)
--- NOTE | 2019-11-19 11:17 | Discharge Inst-Simple/Standard ---
Discharge Inst-Standard Discharge Medications New, Converted or Re-Newed RX: Transmitted to Pharmacy Patient Instructions/Follow Up Plan of Care/Instructions/FU: 2 weeks Pamela Activity as Tolerated: Yes Discharge Diet: Regular Diet YESICA WOLFE DO Nov 19, 2019 11:17
[2019-11-19 11:40] VITALS: BP 113/74
[2019-11-19 11:50] VITALS: BP 113/74
--- NOTE | 2019-11-19 12:28 | Anesthesia-General Post-Op ---
MAC Patient Condition Mental Status/LOC: Same as Preop Cardiovascular: Satisfactory Nausea/Vomiting: Absent Respiratory: Satisfactory Pain: Controlled Complications: Absent Post Op Complications Complications None Follow Up Care/Instructions Patient Instructions None needed. Anesthesiology Discharge Order Discharge Order Patient was seen this morning after the procedure and he was doing well, no complaints, stable vital signs, no apparent adverse anesthesia problems. BRITTNEY NEAL DO Nov 19, 2019 12:28
--- NOTE | 2019-11-19 13:52 | OPERATIVE REPORT ---
DATE OF SERVICE: 11/19/2019 PREOPERATIVE DIAGNOSES: Iron deficiency anemia and occult positive stool. POSTOPERATIVE DIAGNOSES: Gastritis, hiatal hernia, normal colon. PROCEDURE: EGD with biopsies, colonoscopy. SURGEON: Yesica Santiago DO ANESTHESIA: Per MDA. ESTIMATED BLOOD LOSS: None. COMPLICATIONS: None. INDICATIONS: The patient is a 59-year-old male with iron deficiency anemia, occult positive stool. The patient understood understands risks and benefits of procedures and wished to proceed with procedures. Consent was signed in the chart. DESCRIPTION OF PROCEDURE: The patient was taken to the endoscopy suite, placed in left lateral recumbent position. Timeout was performed. Scope was inserted in mouth, down the esophagus, stomach and into the duodenum without difficulty. There were no polyps, masses or ulcerations of the duodenum. Scope was then slowly retracted back into the stomach, which had slight gastritis appearance. Biopsy of the antrum and body were obtained. Scope was retroflexed noting hiatal hernia, no other pathology noted. Scope was returned to its normal position, slowly withdrawn to distal esophagus. Biopsy of the GE junction was obtained. Scope was then slowly retracted back until completely removed, noting no other pathology. Digital rectal exam was performed. There were no palpable polyps, masses or ulcerations. Scope was inserted in the rectum and advanced all the way to cecum with minimal difficulty. Prep was adequate with irrigation and suction. Scope was then slowly retracted back. There were no polyps, masses or ulcerations visualized within the cecum, ascending, transverse, descending and sigmoid colon. Once in the rectum, scope was retroflexed noting no other pathology. Scope was returned to its normal position, slowly withdrawn until completely removed. The patient tolerated procedure well without any complications and taken to recovery room in stable condition. RECOMMENDATIONS: The patient will need repeat colonoscopy in 10 years unless family history of colon cancer, which then be 5 years. If he has any issues before that be seen at that time for reevaluation. For his gastritis, the patient being switched from omeprazole to Protonix 40 mg daily. We will see how symptoms do with this change. We will continue his other current medications at this time. If the patient has continued drop, we would also consider repeat endoscopy and also a capsule endoscopy. Job ID: [id number] DocumentID: [id number] Dictated Date: 11/19/2019 11:19:55 Sewage Disposal Engineer Date: 11/19/2019 13:50:54 Dictated By: YESICA SANTIAGO DO
== END 2019-11-19 11:50 | disposition home or self-care (01) ==
LOC: ENDO 09:22
PROVIDERS: ATTEND Surgery
DX: K29.70 Gastritis, unspecified, without bleeding (principal); K21.0 Gastro-esophageal reflux disease with esophagitis; D50.9 Iron deficiency anemia, unspecified; R19.5 Other fecal abnormalities; K44.9 Diaphragmatic hernia without obstruction or gangrene; I25.10 Atherosclerotic heart disease of native coronary artery without angina pectoris; I11.0 Hypertensive heart disease with heart failure; I50.32 Chronic diastolic (congestive) heart failure; E78.5 Hyperlipidemia, unspecified; J44.9 Chronic obstructive pulmonary disease, unspecified; E11.9 Type 2 diabetes mellitus without complications; M19.90 Unspecified osteoarthritis, unspecified site; M51.36 Other intervertebral disc degeneration, lumbar region; M48.061 Spinal stenosis, lumbar region without neurogenic claudication; M47.816 Spondylosis without myelopathy or radiculopathy, lumbar region; M50.30 Other cervical disc degeneration, unspecified cervical region; M47.892 Other spondylosis, cervical region; M48.02 Spinal stenosis, cervical region; F32.9 Major depressive disorder, single episode, unspecified; F17.210 Nicotine dependence, cigarettes, uncomplicated; Z88.8 Allergy status to other drugs, medicaments and biological substances; Z88.0 Allergy status to penicillin; Z88.1 Allergy status to other antibiotic agents; Z79.82 Long term (current) use of aspirin; Z79.84 Long term (current) use of oral hypoglycemic drugs

== ENCOUNTER 2020-01-24 14:53 | Outpatient (RCR) | payer MEDICAID ==
[~2020-01-24 14:53] MED LIST changes: +ASPI-1238 PO; -ASPI-983 PO
[2020-01-24 16:00] LABS: BASOPHILS % (AUTO) 0 % (0-10); EOSINOPHILS # (AUTO) 0.1 10^3/uL (0.0-0.3); EOSINOPHILS % (AUTO) 1 % (0-10); HEMATOCRIT 41 % (40-54); HEMOGLOBIN 13.4 G/DL (13.3-17.7); LYMPHOCYTES # (AUTO) 2.2 X 10^3 (1.0-4.0); LYMPHOCYTES % (AUTO) 20 % (12-44); MEAN CORPUSCULAR HEMOGLOBIN 27 PG (25-34); MEAN CORPUSCULAR HGB CONC 33 G/DL (32-36); MEAN CORPUSCULAR VOLUME 81 FL (80-99); MEAN PLATELET VOLUME 9.3 FL (7.4-10.4); MONOCYTES # (AUTO) 0.9 X 10^3 (0.0-1.0); MONOCYTES % (AUTO) 8 % (0-12); NEUTROPHILS # (AUTO) 7.9 X 10^3 (1.8-7.8); NEUTROPHILS % (AUTO) 71 % (42-75); PLATELET COUNT 526 10^3/uL (130-400); WHITE BLOOD COUNT 11.2 10^3/uL (4.3-11.0)
== END 2020-02-20 12:00 | disposition home or self-care (01) ==
LOC: ONC 14:53
PROVIDERS: ATTEND Internal Medicine
DX: D64.9 Anemia, unspecified (principal); I10 Essential (primary) hypertension; E11.9 Type 2 diabetes mellitus without complications; J44.9 Chronic obstructive pulmonary disease, unspecified; I25.10 Atherosclerotic heart disease of native coronary artery without angina pectoris; E78.5 Hyperlipidemia, unspecified
CPT/HCPCS: 82728; 83540; 85025; G0463; 99213

== ENCOUNTER → 2020-02-21 | Outpatient (CLI) | payer MEDICAID ==
[2020-02-21 13:45] LABS: BASOPHILS # (AUTO) 0.1 10^3/uL (0.0-0.1); BASOPHILS % (AUTO) 1 % (0-10); EOSINOPHILS # (AUTO) 0.2 10^3/uL (0.0-0.3); EOSINOPHILS % (AUTO) 2 % (0-10); HEMATOCRIT 40 % (40-54); HEMOGLOBIN 12.8 G/DL (13.3-17.7); LYMPHOCYTES % (AUTO) 18 % (12-44); MEAN CORPUSCULAR HEMOGLOBIN 26 PG (25-34); MEAN CORPUSCULAR HGB CONC 32 G/DL (32-36); MEAN CORPUSCULAR VOLUME 81 FL (80-99); MEAN PLATELET VOLUME 9.3 FL (7.4-10.4); MONOCYTES % (AUTO) 8 % (0-12); NEUTROPHILS % (AUTO) 72 % (42-75); PLATELET COUNT 433 10^3/uL (130-400); WHITE BLOOD COUNT 11.3 10^3/uL (4.3-11.0)
[2020-02-21 14:05] LABS: ALANINE AMINOTRANSFERASE 42 U/L (0-55); ALBUMIN 4.3 GM/DL (3.2-4.5); ALKALINE PHOSPHATASE 73 U/L (40-136); BILIRUBIN,TOTAL 0.2 MG/DL (0.1-1.0); BUN/CREATININE RATIO 15; CALCIUM 9.3 MG/DL (8.5-10.1); CARBON DIOXIDE 25 MMOL/L (21-32); CHLORIDE 109 MMOL/L (98-107); GFR ESTIMATED > 60; GLUCOSE 137 MG/DL (70-105); SODIUM 143 MMOL/L (135-145); TOTAL PROTEIN 7.1 GM/DL (6.4-8.2)
== END ==
LOC: ONC 12:53
PROVIDERS: ATTEND Internal Medicine Hematology & Oncology
DX: D50.0 Iron deficiency anemia secondary to blood loss (chronic) (principal); D47.3 Essential (hemorrhagic) thrombocythemia; D72.829 Elevated white blood cell count, unspecified; M19.90 Unspecified osteoarthritis, unspecified site; J30.2 Other seasonal allergic rhinitis; I10 Essential (primary) hypertension; F32.9 Major depressive disorder, single episode, unspecified; J45.909 Unspecified asthma, uncomplicated; E11.9 Type 2 diabetes mellitus without complications; Z98.890 Other specified postprocedural states; Z95.5 Presence of coronary angioplasty implant and graft
CPT/HCPCS: 80053; 81270; 82728; 83540; 85025; G0463; 99213

== ENCOUNTER → 2020-06-22 | Outpatient (CLI) | payer MEDICAID ==
--- NOTE | 2020-06-22 09:43 | Diagnostic Imaging Report ---
EXAMINATION: CT Chest without contrast (lung screening). TECHNIQUE: Multiple contiguous axial images were obtained through the chest without the use of intravenous contrast according to lung cancer screening protocol. All CT scans use one or more of the following dose optimizing techniques: automated exposure control, MA and/or KvP adjustment based on a patient size and exam type, or iterative reconstruction. HISTORY: 43 pack year history of smoking. COMPARISON: 06/20/2019 FINDINGS: There is no edema or pneumonia. No pleural effusion. No pneumothorax. No suspicious nodules. There is no axillary or supraclavicular lymphadenopathy. There is no mediastinal lymphadenopathy. Heart size is normal. There are mild coronary artery calcifications. No pericardial effusion. Aorta is normal in caliber. Limited views of the upper abdomen are unremarkable. There are no suspicious osseous lesions. IMPRESSION: 1. No suspicious pulmonary nodules. LUNG-RADS CATEGORY: 1 MODIFIER: None. Dictated by: Dictated on workstation # [id number]
== END ==
LOC: RAD 08:53
PROVIDERS: ATTEND Nurse Practitioner Family
DX: Z12.2 Encounter for screening for malignant neoplasm of respiratory organs (principal); F17.210 Nicotine dependence, cigarettes, uncomplicated
CPT/HCPCS: 71271

== ENCOUNTER → 2020-06-22 | Outpatient (CLI) | payer MEDICAID ==
--- NOTE | 2020-06-22 16:55 | Diagnostic Imaging Report ---
INDICATION: Nonpalpable pedal pulses. TECHNIQUE: A noninvasive study was performed in the routine fashion. FINDINGS: The ankle-brachial index on the right side was 1.2 in the posterior tibial artery. The ankle-brachial index was 1.14 on the left side in the posterior tibial artery and is 0.92 in the dorsalis pedis. Waveforms appear symmetric bilaterally. IMPRESSION: Normal ankle brachial indices. Dictated by: Dictated on workstation # [id number]
== END ==
LOC: RAD 08:54
PROVIDERS: ATTEND Family Medicine
DX: R09.89 Other specified symptoms and signs involving the circulatory and respiratory systems (principal)
CPT/HCPCS: 93922

== ENCOUNTER → 2020-06-30 | Outpatient (CLI) | payer MEDICAID ==
[~2020-06-30] MED LIST changes: -OXYC-471 PO; +OXYC1TAB11 PO
[2020-06-30 13:58] LABS: BASOPHILS # (AUTO) 0.1 10^3/uL (0.0-0.1); BASOPHILS % (AUTO) 1 % (0-10); EOSINOPHILS # (AUTO) 0.1 10^3/uL (0.0-0.3); EOSINOPHILS % (AUTO) 1 % (0-10); HEMATOCRIT 42 % (40-54); HEMOGLOBIN 13.8 g/dL (13.3-17.7); LYMPHOCYTES # (AUTO) 2.4 10^3/uL (1.0-4.0); LYMPHOCYTES % (AUTO) 22 % (12-44); MEAN CORPUSCULAR HEMOGLOBIN 28 pg (25-34); MEAN CORPUSCULAR HGB CONC 33 g/dL (32-36); MEAN CORPUSCULAR VOLUME 86 fL (80-99); MEAN PLATELET VOLUME 9.7 fL (9.0-12.2); MONOCYTES # (AUTO) 0.8 10^3/uL (0.0-1.0); MONOCYTES % (AUTO) 7 % (0-12); NEUTROPHILS # (AUTO) 7.5 10^3/uL (1.8-7.8); NEUTROPHILS % (AUTO) 69 % (42-75); PLATELET COUNT 393 10^3/uL (130-400); WHITE BLOOD COUNT 10.9 10^3/uL (4.3-11.0)
[2020-06-30 14:20] LABS: ALANINE AMINOTRANSFERASE 59 U/L (0-55); ALBUMIN 4.3 GM/DL (3.2-4.5); ALKALINE PHOSPHATASE 62 U/L (40-136); BILIRUBIN,TOTAL 0.4 MG/DL (0.1-1.0); BUN/CREATININE RATIO 8; CALCIUM 9.1 MG/DL (8.5-10.1); CARBON DIOXIDE 27 MMOL/L (21-32); CHLORIDE 106 MMOL/L (98-107); CREATININE SERUM 1.18 MG/DL (0.60-1.30); GFR ESTIMATED > 60; GLUCOSE 132 MG/DL (70-105); POTASSIUM 4.6 MMOL/L (3.6-5.0); SODIUM 142 MMOL/L (135-145); TOTAL PROTEIN 7.1 GM/DL (6.4-8.2)
== END ==
LOC: ONC 13:47
PROVIDERS: ATTEND Internal Medicine Hematology & Oncology
DX: D50.9 Iron deficiency anemia, unspecified (principal); D47.3 Essential (hemorrhagic) thrombocythemia; D72.829 Elevated white blood cell count, unspecified; E11.9 Type 2 diabetes mellitus without complications; J43.9 Emphysema, unspecified; E78.5 Hyperlipidemia, unspecified; I50.32 Chronic diastolic (congestive) heart failure
CPT/HCPCS: 80053; 82728; 83540; 85025; G0463; 99213

== ENCOUNTER → 2021-02-25 | Outpatient (CLI) | payer MEDICAID ==
[~2021-02-25] MED LIST changes: -OMEP40CA27 PO; +OMEP40CA6 PO
== END ==
LOC: CARD 09:00
PROVIDERS: ATTEND Internal Medicine Cardiovascular Disease
DX: I34.8 Other nonrheumatic mitral valve disorders (principal)
CPT/HCPCS: 93306

== ENCOUNTER 2021-06-25 10:19 | Outpatient (RCR) | payer MEDICAID ==
[~2021-06-25 10:19] MED LIST changes: +CYCL10TA25 PO; -CYCL10TA9 PO; +DICY20TA PO; -DICY20TA10 PO
[2021-06-25 10:52] LABS: BASOPHILS # (AUTO) 0.1 10^3/uL (0.0-0.1); BASOPHILS % (AUTO) 1 % (0-10); EOSINOPHILS # (AUTO) 0.2 10^3/uL (0.0-0.3); EOSINOPHILS % (AUTO) 2 % (0-10); HEMATOCRIT 41 % (40-54); HEMOGLOBIN 13.3 g/dL (13.3-17.7); LYMPHOCYTES # (AUTO) 3.2 10^3/uL (1.0-4.0); LYMPHOCYTES % (AUTO) 29 % (12-44); MEAN CORPUSCULAR HEMOGLOBIN 28 pg (25-34); MEAN CORPUSCULAR HGB CONC 33 g/dL (32-36); MEAN CORPUSCULAR VOLUME 87 fL (80-99); MEAN PLATELET VOLUME 9.3 fL (9.0-12.2); MONOCYTES # (AUTO) 0.8 10^3/uL (0.0-1.0); MONOCYTES % (AUTO) 7 % (0-12); NEUTROPHILS # (AUTO) 6.8 10^3/uL (1.8-7.8); NEUTROPHILS % (AUTO) 62 % (42-75); PLATELET COUNT 424 10^3/uL (130-400)
[2021-06-25 11:07] LABS: ALBUMIN 4.4 GM/DL (3.2-4.5); BILIRUBIN,TOTAL 0.6 MG/DL (0.1-1.0); CALCIUM 9.6 MG/DL (8.5-10.1); CREATININE SERUM 1.03 MG/DL (0.60-1.30); POTASSIUM 4.1 MMOL/L (3.6-5.0); TOTAL PROTEIN 7.2 GM/DL (6.4-8.2)
== END 2021-07-05 | disposition home or self-care (01) ==
LOC: ONC 10:19
PROVIDERS: ATTEND Internal Medicine Hematology & Oncology
DX: D75.839 Thrombocytosis, unspecified (principal); E78.5 Hyperlipidemia, unspecified; E11.9 Type 2 diabetes mellitus without complications
CPT/HCPCS: 80053; 81270; 85025

== ENCOUNTER 2021-07-16 09:59 | Outpatient (RCR) | payer MEDICAID ==
[2021-07-16 10:19] LABS: BASOPHILS # (AUTO) 0.1 10^3/uL (0.0-0.1); BASOPHILS % (AUTO) 1 % (0-10); EOSINOPHILS # (AUTO) 0.2 10^3/uL (0.0-0.3); EOSINOPHILS % (AUTO) 2 % (0-10); HEMATOCRIT 40 % (40-54); HEMOGLOBIN 12.6 g/dL (13.3-17.7); LYMPHOCYTES # (AUTO) 3.3 10^3/uL (1.0-4.0); LYMPHOCYTES % (AUTO) 30 % (12-44); MEAN CORPUSCULAR HEMOGLOBIN 28 pg (25-34); MEAN CORPUSCULAR HGB CONC 32 g/dL (32-36); MEAN CORPUSCULAR VOLUME 89 fL (80-99); MEAN PLATELET VOLUME 9.4 fL (9.0-12.2); MONOCYTES % (AUTO) 9 % (0-12); NEUTROPHILS # (AUTO) 6.5 10^3/uL (1.8-7.8); NEUTROPHILS % (AUTO) 58 % (42-75); PLATELET COUNT 406 10^3/uL (130-400); WHITE BLOOD COUNT 11.2 10^3/uL (4.3-11.0)
== END 2021-08-02 | disposition home or self-care (01) ==
LOC: ONC 09:59
PROVIDERS: ATTEND Internal Medicine Hematology & Oncology
DX: D75.839 Thrombocytosis, unspecified (principal); E78.5 Hyperlipidemia, unspecified; E11.9 Type 2 diabetes mellitus without complications; E66.9 Obesity, unspecified
CPT/HCPCS: 85025; G0463; 36415; 99213

== ENCOUNTER 2021-09-07 13:00 | Day surgery (SDC) | payer MEDICAID ==
[~2021-09-07] VITALS: Ht 172.7 cm; Wt 100.4 kg
[2021-09-07] VITALS (8 sets, daily range): BP systolic 121–155; BP diastolic 73–82
[2021-09-07 11:10] LABS: HEMATOCRIT 39 % (40-54); HEMOGLOBIN 12.3 g/dL (13.3-17.7); MEAN CORPUSCULAR HEMOGLOBIN 28 pg (25-34); MEAN CORPUSCULAR HGB CONC 32 g/dL (32-36); MEAN CORPUSCULAR VOLUME 88 fL (80-99); MEAN PLATELET VOLUME 9.6 fL (9.0-12.2); PLATELET COUNT 357 10^3/uL (130-400); WHITE BLOOD COUNT 8.4 10^3/uL (4.3-11.0)
[2021-09-07 11:30] LABS: ALBUMIN 4.1 GM/DL (3.2-4.5); BILIRUBIN,TOTAL 0.3 MG/DL (0.1-1.0); CREATININE SERUM 0.95 MG/DL (0.60-1.30); POTASSIUM 3.9 MMOL/L (3.6-5.0); TOTAL PROTEIN 6.5 GM/DL (6.4-8.2)
--- NOTE | 2021-09-07 12:59 | Cardiac Procedure Note-CS/ASA ---
Pre-Procedure Note Pre-Op Procedure Note H&P Reviewed The H&P was reviewed, patient examined and no changes noted. Date H&P Reviewed: Sep 07, 2021 Time H&P Reviewed: 11:50 Conscious Sedation Pre-Proced Time 11:50 ASA Score 3 For ASA 3 and 4: Consider anesthesia and medical clearance. Also, for patients with a history of failed moderate sedation consider anesthesia. Airway Lungs Heart ASA score ASA 1: a normal healthy patient ASA 2: a patient with a mild systemic disease (mid diabetes, controlled hypertension, obesity ASA 3: a patient with a severe systemic disease that limits activity (angina, COPD, prior Myocardial infarction) ASA 4: a patient with an incapacitating disease that is a constant threat to life (CHF, renal failure) ASA 5: a moribund patient not expected to survive 24 hrs. (ruptured aneurysm) ASA 6: a declared brain- patient whose organs are being harvested. For emergent operations, add the letter E after the classification Mallampati Classification Grade 2 Sedation Plan Analgesia, Amnesia, Plan communicated to team members, Discussed options with patient/fam, Discussed risks with patient/fam The patient is an appropriate candidate to undergo the planned procedure, sedation, and anesthesia. The patient immediately re-assessed prior to indication. MAGDA DIAZ MD FACP FAC CCDS Sep 07, 2021 12:59
[~2021-09-07 13:00] MED LIST changes: +ALBU2.5V4 INH; +ESZO3TAB39 PO; +FERR325T18 PO; +HEParin (CATH LAB) 2,000 ML IV ONE; +LIDOCAINE 1% INJ 50 ML (XYLOCAINE) VIAL ONE; +MIDAZOLAM 5 MG/5 ML (VERSED) VIAL ONE; +MTP100TCR PO; +MULT-1136 PO; +NS IV 1000 ML 1,000 ML IV SCH; +NS IV 1000 ML 1,000 ML ONE; +PANT40TA52 PO; +PATIENT MAY USE OWN MEDS, ALL PO SCH; +POLY30DR6 OU; +POTA-51 PO; +QUET200T29 PO; +SITA100T12 PO; +fentaNYL INJ 100 MCG/2 ML AMP ONE
--- NOTE | 2021-09-07 13:02 | Discharge Inst-Cardiology ---
Discharge Inst-Cardiac Discharge Medications Continued Medications: Albuterol Sulfate (Proventil Hfa) 6.7 Gm Hfa.aer.ad 2 PUFF IH Q4H PRN for SHORTNESS OF BREATH, INHALER Albuterol Sulfate (Albuterol Sulfate) 2.5 Mg/3 Ml Vial.neb 2.5 MG INH Q6H PRN for SHORTNESS OF BREATH, EA Aspirin (Aspirin) 81 Mg Tab.chew 81 MG PO HS, TAB Baclofen (Baclofen) 10 Mg Tablet 10 MG PO TID PRN for SPASMS, TAB Budesonide/Formoterol Fumarate (Symbicort 160-4.5 Mcg Inhaler) 10.2 Gm Hfa.aer.ad 2 PUFF IH BID, INHALER Cetirizine HCl (Cetirizine HCl) 10 Mg Tablet 10 MG PO DAILY, TAB Eszopiclone (Eszopiclone) 3 Mg Tablet 3 MG PO HS, TAB Ferrous Sulfate (Ferrous Sulfate) 325 Mg Tablet 325 MG PO DAILY, TAB Fluticasone Propionate (Flonase Allergy Relief) 9.9 Ml [place].susp 1 SPRAY NS DAILY, EACH Liraglutide (Victoza 2-Ifeanyi) 0.6 Mg/0.1 Ml Pen.injctr 1.8 MG SQ HS, EA Metformin HCl (Metformin HCl) 1,000 Mg Tablet 1000 MG PO BID, TAB Metoprolol Succinate (Metoprolol Succinate) 100 Mg Tab.er.24h 100 MG PO HS, TAB Multivitamin (Multivitamin) 1 Each Tablet 1 EACH PO DAILY, TAB Polyethylene Glycol 3350 (Miralax) 17 Gm Powd.pack 17 GM PO DAILY PRN for CONSTIPATION-2ND LINE, EACH Polyethylene Glycol 400 (Visine Dry Eye Relief) 30 Ml Drops 1 DROP OU DAILY PRN for DRY EYES, DROPS Potassium Chloride (Potassium Chloride) 20 Meq Tablet.er 20 MEQ PO HS, TAB Quetiapine Fumarate (Quetiapine Fumarate) 200 Mg Tablet 200 MG PO HS, TAB Sitagliptin Phosphate (Januvia) 100 Mg Tablet 100 MG PO DAILY, TAB Sucralfate (Carafate) 1 Gm Tablet 1 GM PO DAILY, TAB MAGDA DIAZ MD FACP FAC CCDS Sep 07, 2021 13:02
--- NOTE | 2021-09-07 13:03 | Discharge Inst-Post CATH ---
Discharge Inst-CATH/EP Post Cardiac Cath/EP D/C Inst Follow Up/Plan F/u with Dr Cedillo in 2 weeks No smoking ACTIVITY * Go Home directly and rest. * Limit activity of the leg (or wrist if it was used) for 7 days including aerobics, swimming, jogging, bicycling, etc. * Restrict stair-climbing for 7 days if possible, if not, climb up with your non-cath leg, then bring together on the same step. * Avoid lifting, pushing, pulling or excessive movement of the affected extremity for 7 days. * Customary sexual activity may be resumed after 2 days-use caution not to use a position that strains or causes pain to the affected extremity. * No driving for 24 hours. * NO SMOKING. * Avoid straining for bowel movements for 7 days. * Gentle walking on level ground is allowed. * Returning to work will depend on the type of procedure and the results. Your doctor will discuss this with you. CALL YOUR DOCTOR FOR ANY OF THE FOLLOWING: *If bleeding from the puncture site occurs- Apply gentle pressure to site with clean cloth and call your doctor or EMS. * If a knot or lump forms under the skin, increases in size, or causes pain. * If bruising appears to be worsening or moving further down your leg instead of disappearing. * Temperature above 101 F. CARE OF YOUR GROIN INCISION; * Bruising or purple discoloration of the skin near the puncture site is common. * You may shower only, no bathtub bathing for 5 days. Be careful to avoid slipping as your leg may feel stiff. * If a closure device was used on your femoral artery, please see the attached guide regarding care of the device and your leg. * Leave dressing on FOR 24 hours. CARE OF YOUR WRIST INCISION; * Bruising or purple discoloration of the skin near the puncture site is common. * You may shower. * DO NOT submerge wrist. * Leave dressing on FOR 24 hours. MAGDA CEDILLO MD [facility] CCDS Sep 07, 2021 13:03
--- NOTE | 2021-09-07 13:49 | CARDIAC CATHETERIZATION ---
DATE OF SERVICE: 09/07/2021 CARDIAC CATHETERIZATION REPORT The patient is a 61-year-old gentleman with multiple coronary artery disease risk factors, who has been having chest discomfort. On previous cardiac catheterization, he had moderate coronary artery disease. Repeat cardiac catheterization was carried out after having obtained an informed consent. DESCRIPTION OF PROCEDURE: He was brought to the cardiac catheterization laboratory in a fasting state. Right groin was prepared and draped in the usual sterile fashion. Lidocaine 1% was used for local anesthesia. Modified Seldinger technique was used to advance a 5-Tanzanian sheath in the right femoral artery, 5-Tanzanian JL4 catheter for left angiography, 5-Tanzanian JR4 catheter was used for right coronary angiography, 5-Tanzanian pigtail catheter was used for left heart catheterization and left ventricular angiography. At the end of the procedure, angiography of the right femoral artery was carried out through the sheath and Mynx was used to achieve hemostasis following sheath removal. He tolerated the procedure well. HEMODYNAMICS: Left ventricular end-diastolic pressure following coronary angiography was 21 mmHg. There is no significant pressure gradient on pullback across the aortic valve. LEFT VENTRICULAR ANGIOGRAPHY: Left ventricular angiography was carried out in the right anterior oblique projection. Global left ventricular systolic function is normal. No regional wall motion abnormality is seen. Left ventricular ejection fraction is approximately 60%. CORONARY ANGIOGRAPHY: Diffuse coronary calcification is present. There is mild stenosis of the distal left main and there is up to approximately 40% to 50% stenosis in the mid left anterior descending. The left circumflex artery has mild plaques. Right coronary artery is dominant and does not exhibit significant disease. CONCLUSIONS: 1. Mild to moderate coronary artery disease. 2. Normal global left ventricular systolic function with ejection fraction of 60%. 3. Elevated left ventricular end-diastolic pressure (21 mmHg). Based on this study, it appears appropriate to continue a conservative approach. Risk factor modification has been reviewed with her. Current regimen is being continued. We have advised immediate and complete cessation of tobacco use. Close outpatient followup is advised. Job ID: [id number] DocumentID: [id number] Dictated Date: 09/07/2021 12:58:02 Dye Blender Date: 09/07/2021 13:48:50 Dictated By: MAGDA DIAZ MD, MA, FACP, FACC,
== END 2021-09-07 16:35 | disposition home or self-care (01) ==
LOC: CATH 13:00 → SDC 13:35 → CATH 16:35
PROVIDERS: ATTEND Internal Medicine Cardiovascular Disease
DX: I25.10 Atherosclerotic heart disease of native coronary artery without angina pectoris (principal); E11.9 Type 2 diabetes mellitus without complications; E66.9 Obesity, unspecified; Z68.33 Body mass index [BMI] 33.0-33.9, adult; E78.2 Mixed hyperlipidemia; I10 Essential (primary) hypertension; J44.9 Chronic obstructive pulmonary disease, unspecified; I45.10 Unspecified right bundle-branch block; G47.34 Idiopathic sleep related nonobstructive alveolar hypoventilation; M54.12 Radiculopathy, cervical region; I65.23 Occlusion and stenosis of bilateral carotid arteries; F17.210 Nicotine dependence, cigarettes, uncomplicated; Z86.73 Personal history of transient ischemic attack (TIA), and cerebral infarction without residual deficits; Z79.82 Long term (current) use of aspirin; Z79.52 Long term (current) use of systemic steroids; Z79.899 Other long term (current) drug therapy; Z79.84 Long term (current) use of oral hypoglycemic drugs
CPT/HCPCS: 80053; 80061; 85027; 85610; 85730; 87081; 93458; C1760; C1894; 36415

== ENCOUNTER → 2021-10-05 | Outpatient (CLI) | payer MEDICAID ==
[~2021-10-05] MED LIST changes: -HEParin (CATH LAB) 2,000 ML IV ONE; -LIDOCAINE 1% INJ 50 ML (XYLOCAINE) VIAL ONE; -MIDAZOLAM 5 MG/5 ML (VERSED) VIAL ONE; -NS IV 1000 ML 1,000 ML IV SCH; -NS IV 1000 ML 1,000 ML ONE; -PATIENT MAY USE OWN MEDS, ALL PO SCH; +RT-ALBUTEROL SULF 2.5 MG/3 ML PRE-MIX VIAL INH ONE; -fentaNYL INJ 100 MCG/2 ML AMP ONE
== END ==
LOC: RT 09:15
PROVIDERS: ATTEND Family Medicine
DX: J44.9 Chronic obstructive pulmonary disease, unspecified (principal)
CPT/HCPCS: 94060; 94726; 94729

== ENCOUNTER → 2022-12-01 | Outpatient (CLI) | payer MEDICAID ==
[~2022-12-01] MED LIST changes: +MONT-47 PO; -MONT10TA21 PO; +POTA-330 PO; -POTA-51 PO; -RT-ALBUTEROL SULF 2.5 MG/3 ML PRE-MIX VIAL INH ONE
--- NOTE | 2022-12-01 16:53 | Diagnostic Imaging Report ---
EXAMINATION: CT chest without contrast (lung screening). TECHNIQUE: Multiple contiguous axial images were obtained through the chest without the use of intravenous contrast according to lung cancer screening protocol. All CT scans use one or more of the following dose optimizing techniques: automated exposure control, MA and/or KvP adjustment based on patient size and exam type or iterative reconstruction. HISTORY: 29 pack year history of smoking. COMPARISON: 06/22/2020 FINDINGS: There is no edema or pneumonia. No pleural effusion. No pneumothorax. No suspicious nodules. There is a calcified granuloma in the right upper lobe. There is no axillary or supraclavicular lymphadenopathy. There is no mediastinal lymphadenopathy. Heart size is normal. There are moderate coronary artery calcifications. No pericardial effusion. Aorta is normal in caliber. Limited views of the upper abdomen are unremarkable. There are no suspicious osseus lesions. IMPRESSION: 1. No suspicious pulmonary nodules. LUNG-RADS CATEGORY: 2 MODIFIER: None. Dictated by: Dictated on workstation # [id number]
== END ==
LOC: CARD 08:18
PROVIDERS: ATTEND Internal Medicine Critical Care Medicine
DX: I51.7 Cardiomegaly (principal); I35.8 Other nonrheumatic aortic valve disorders; J45.40 Moderate persistent asthma, uncomplicated; Z87.891 Personal history of nicotine dependence
CPT/HCPCS: 71271; C8929; 93306